=== PATIENT | male | born 1950 | race African-American/Black ===

== ENCOUNTER 2020-04-28 13:50 | Outpatient (CLI) | payer MEDICARE, MEDICAID, SELFPAY ==
--- NOTE | 2020-05-01 17:21 | WPDPFTINT ---
PFT Interpretation PFT Interpretation: DOS:04/28/2020 REQUESTING: Lorene Carroll MD REASON FOR TESTING: COPD PULMONARY FUNCTION TESTS Results are reproducible. Spirometry: FEV1 is 45%, 1.25 L, severely decreased. FVC 82%, normal. FEV1% is severely decreased. FJT08-12% is 13%. There is no response to bronchodilator. Lung volumes: TLC 114% normal. Increased RV 147% consistent with moderate air trapping. Increased airway resistance 291%. Diffusion: DLCO severely decreased 37% predicted. Flow volume loop: Severe scooping of the expiratory limb IMPRESSION: Severe obstructive ventilatory impairment, moderate air trapping, severe diffusion impairment. No response to bronchodilator. This pattern is consistent with emphysema. Lack of response to bronchodilator should not preclude use if clinically indicated. Perri Mckay MD
== END 2020-04-28 13:51 | disposition home or self-care (01) ==
PROVIDERS: PCP Family Medicine; Visit Provider Internal Medicine Critical Care Medicine
DX: J44.9 Chronic obstructive pulmonary disease, unspecified (principal); J43.9 Emphysema, unspecified
CPT/HCPCS: 94060; 94726; 94729

== ENCOUNTER 2020-05-05 06:26 | Emergency (ER) | payer MEDICARE, MEDICAID, SELFPAY ==
--- NOTE | ~2020-05-05 | US_ITS ---
EXAMINATION: US wrist asp inj w image RT DATE: 05/05/2020 11:06 INDICATION: Right wrist joint effusion and pain. TECHNIQUE: The skin overlying the right radiocarpal joint was prepped and draped in usual sterile fas hion. Anesthetic was administered with 1% lidocaine subcutaneously. An 18 gauge core biopsy needle was then used to aspirate fluid from the right radiocarpal joint under continuous sonographic guidanc e. The entry site was cleaned and dressed. There were no immediate complications. FINDINGS: Ultrasound images demonstrate the needle in the right radiocarpal joint. IMPRESSION: 1. Ultrasound-guided needle aspiration of 1 mL yellow fluid from the right radiocarpal joint. Reviewed, dictated and finalized at location A. PRESS PROOFER IMPRESSION: 1. Ultrasound-guided needle aspiration of 1 mL yellow fluid from the right radi ocarpal joint.
--- NOTE | ~2020-05-05 | XR_ITS ---
XR wrist RT min 3V 05/05/2020 07:00 Indication: Right wrist pain after fall Procedure: 4 views right wrist Comparison: No prior studies for comparison. Findings: No acute fracture or traumatic malalignment. Osteopenia. No significant soft tissue abnorma lity. No foreign bodies. There is chondrocalcinosis. Impression: 1: No acute fracture. Reviewed, dictated and finalized at location A. THODONTIST/EDUCATOR Impression: 1: No acute fracture.
[2020-05-05 06:33] VITALS: BP 124/91; PULSE 110; RESP 20; TEMP 36.8; O2SAT 95
--- NOTE | 2020-05-05 06:37 | PC.NURSE ---
Pt arrives on home oxygen at 2L nasal cannula
--- NOTE | 2020-05-05 07:01 | ED.EXTPRO ---
HPI - Extremity Problem General Chief complaint: Extremity Problem,Nontraumatic Stated complaint: tendonitis right wrist/hand Time Seen by Provider: 05/05/20 07:01 Source: patient Mode of arrival: ambulatory Limitations: no limitations History of Present Illness HPI Narrative: Patient is a 69-year-old male with a history of COPD who presents for evaluation of right wrist pain. Patient reports right wrist pain over the past 24 hours, worsening in severity. Currently, dull, aching in nature, increased pain with movement. Patient reports swelling overlying the right wrist as well. He denies numbness, but does report decrease in good coil shaper strength simply due to pain with movement. Patient denies any fall or injury. Patient states he has a history of this probably 8 to 9 years ago and was diagnosed with tendinitis. Patient denies any trauma. He denies fever, chills, redness. Patient states he has history of ganglion surgery in his wrist in the past. No history of skin infections. No abrasions or rashes overlying the wrist. Related Data Home Medications Medication Instructions Recorded Confirmed albuterol sulfate 2.5 mg INHALATION Q6H 03/07/20 albuterol sulfate 90 mcg/actuation 2 puff INHALATION Q4H PRN gm 03/07/20 aerosol inhaler amlodipine 10 mg tablet 10 mg PO DAILY 03/07/20 doxazosin 8 mg tablet 8 mg PO DAILY 03/07/20 ergocalciferol (vitamin D2) 1,250 1,250 mcg PO WEEKLY 03/07/20 mcg (50,000 unit) capsule fluticasone fur. 100 mcg-umeclid 1 inhalation INHALATION DAILY 03/07/20 62.5 mcg-vilant 25 mcg inhalat.powder fluticasone propionate 50 1 spray NASAL DAILY 03/07/20 mcg/actuation nasal spray,suspension montelukast 10 mg tablet 10 mg PO DAILY 03/07/20 nebulizer and compressor #1 each 03/07/20 sildenafil 100 mg tablet 100 mg PO DAILY PRN 03/07/20 ipratropium bromide 0.02 % 2.5 ml INHALATION QID ml 03/12/20 solution for inhalation levocetirizine 5 mg tablet 5 mg PO DAILY 03/12/20 Allergies Allergy/AdvReac Type Severity Reaction Status Date / Time lisinopril Allergy Severe Swelling Verified 05/05/20 06:27 Penicillins Allergy Intermediate Hives / Verified 05/05/20 06:27 Red Face Sulfa (Sulfonamide Allergy Intermediate Hives / Verified 05/05/20 06:27 Antibiotics) Red Face Review of Systems Review of Systems: Narrative: CONSTITUTIONAL: Denies fever, chills, or sweats. EYES: Denies visual changes, redness, or discharge. ENT: Denies rhinorrhea, congestion, sore throat, or otalgia. CARDIOVASCULAR: Denies chest pain, palpitations, or edema. RESPIRATORY: Denies cough or dyspnea. GASTROINTESTINAL: Denies abdominal pain, nausea, vomiting, or diarrhea. GENITOURINARY: Denies dysuria or hematuria. SKIN: Reports swelling overlying the right wrist MUSCULOSKELETAL: Reports right wrist pain, denies elbow pain NEUROLOGIC: Denies headache, numbness, reports decreased strength due to pain in the right wrist PMFSH Past Medical History Medical History (Updated 05/05/20 @ 11:36 by Caridad Lauren MD) BPH (benign prostatic hyperplasia) Chronic kidney disease Chronic viral hepatitis C COPD (chronic obstructive pulmonary disease) Dependence on supplemental oxygen Elevated PSA H/O nicotine dependence HTN (hypertension) Family History Family History (Updated 03/12/20 @ 13:25 by Orin Heard CMA) Father Cancer Mother Asthma Sibling Diabetes mellitus Social History Social History Smoking packs per day: 1 Smoking cigarettes per day: 20.0 Years smoked: 40 Smoking pack-years: 40.00 Smoking status: Former smoker Alcohol intake: current Substance use: never Exam Narrative: Exam Narrative: GENERAL: Awake, alert, conversant HEAD: Normocephalic, atraumatic. EYES: PERRLA and EOMI. ENT: Nares clear, no rhinorrhea or epistaxis. Mucous membranes moist. NECK: Supple. CHEST: No respiratory distress,
[2020-05-05] MEDS: ONDANSETRON HCL ODT 4 MG TABLET PO (07:45)
[2020-05-05] MEDS: oxyCODONE/ACETAMINOPHEN (*CRX) 5-325 MG TABLET 1 TABLET PO (07:45)
[2020-05-05 08:06] LABS: Basophils Percent Auto 0.3 % (0.2-1.2); Eosinophils Absolute Auto 0.2 K/mm3 (0-0.3); Eosinophils Percent Auto 1.5 % (0-4.4); Hematocrit 43.4 % (42.0-52.0); Hemoglobin 14.3 g/dL (14.0-18.0); Immature Granulocyte Absolute 0.05 K/mm3 (0.00-0.031); Immature Granulocyte Percent A 0.4 % (0-0.5); Lymphocytes Absolute Auto 1.49 K/mm3 (0.9-3.2); Mean Corpuscular HGB Conc 32.9 g/dl (32-36); Mean Corpuscular Hemoglobin 28.6 pg (26-34); Mean Corpuscular Volume 86.8 fl (80-100); Mean Platelet Volume 9.2 fl (7.4-10.4); Monocytes Absolute Auto 1.1 K/mm3 (0.1-0.6); Monocytes Percent Auto 8.9 % (2.6-8.5); Neutrophils Absolute Auto 9.6 K/mm3 (1.3-6.7); Neutrophils Percent Auto 76.9 % (45.5-73.1); Platelet Count Result 222 k/mm3 (150-375); Red Cell Distribution Width 13.2 % (11.5-14.5); White Blood Count 12.5 K/mm3 (4.5-10.0)
[2020-05-05 08:19] LABS: Anion Gap 9 mmol/L (8-16); Blood Urea Nitrogen 15 mg/dL (9-20); CRP 3.2 mg/dL (<1.0); Calcium 9.6 mg/dL (8.4-10.2); Carbon Dioxide 27 mmol/L (22-30); Chloride 104 mmol/L (98-107); Estimated CRCL calculation 63 ml/min; Estimated Glomerular Filt Rate > 60; Glucose 101 mg/dL (75-110); Potassium 3.6 mmol/L (3.4-5.0); Sodium 140 mmol/L (137-145)
[2020-05-05 08:29] LABS: Erythrocyte Sedimentation Rate 18 mm/hr (0-20)
[2020-05-05 08:41] VITALS: BP 150/96; PULSE 99; RESP 15; O2SAT 97
[2020-05-05 10:50] LABS: Appearance Synovial Fluid Cloudy (Clear); Source Synovial Fluid Synovial fluid
[2020-05-05 10:51] LABS: Color Synovial Fluid Other (Colorless)
[2020-05-05 10:53] LABS: Crystals Synovial Fluid None Seen (None Seen)
[2020-05-05 10:55] LABS: Lymphocytes Synovial Fluid 12 %; Monocytes Synovial Fluid 2 %; Neutrophils Synovial Fluid 86 % (0-25)
[2020-05-05 10:57] VITALS: BP 155/93; PULSE 90; RESP 17; O2SAT 97
--- NOTE | 2020-05-05 10:57 | PC.NURSE ---
Pt to U/S via WC.
[2020-05-05] MEDS: CEPHALEXIN 500 MG CAPSULE PO (11:56)
[2020-05-05 12:02] VITALS: BP 149/88; PULSE 84; RESP 17; O2SAT 97
[2020-05-05] MEDS: oxyCODONE HCL (*CRX) 5 MG TAB IR PO (13:20)
[2020-05-05 13:34] VITALS: BP 152/84; PULSE 82; RESP 16; O2SAT 97
== END 2020-05-05 13:35 | disposition home or self-care (01) ==
PROVIDERS: Emergency Provider Emergency Medicine; PCP Family Medicine
DX: M06.4 Inflammatory polyarthropathy (principal); M25.531 Pain in right wrist; J44.9 Chronic obstructive pulmonary disease, unspecified; N40.0 Benign prostatic hyperplasia without lower urinary tract symptoms; I12.9 Hypertensive chronic kidney disease with stage 1 through stage 4 chronic kidney disease, or unspecified chronic kidney disease; N18.9 Chronic kidney disease, unspecified; B18.2 Chronic viral hepatitis C; Z99.81 Dependence on supplemental oxygen; Z87.891 Personal history of nicotine dependence
CPT/HCPCS: 20600; 20606; 36415; 73110; 80048; 85025; 85652; 86140; 87070; 87075; 87205; 88108; 88304; 89051; 89060; 96365; 99284; A9270; J3370

== ENCOUNTER 2020-05-20 07:54 | Outpatient (CLI) | payer MEDICARE, MEDICAID, SELFPAY ==
--- NOTE | 2020-07-02 17:07 | WPDHOMESLEEP ---
Sleep Study - Home Unattended Date of Study: 05/20/20 Ordering Provider: Lorene Carroll ND Interpreting Physician: Perri Mckay MD Home Sleep Study Type: Apnea Link Air Height: 1.73 m Weight: 96.615 kg Body Mass Index: 32.3 Neck Circumference (inches): 17 [place]: 2 Reason for Sleep Study Waking during the night, need for naps in the day Sleep History Lee Cotto is a 69 year-old man who has COPD and uses oxygen at 2 L/minute. he has a prior history of smoking and exposure to environmental substances when he was in the . He wakes up throughout the night. He rarely snores, never is at loud enough that others complain about it. He rarely awakens at night with heartburn, belching or coughing. Does not awaken from sleep feeling short of breath. He rarely has trouble sleep with a cold. Does not wake up gasping for breath at night. He rarely has breathing problems at night observed by others. Rarely sweats excessively at night. Does not notice his heart pounding or beating irregularly at night. He rarely falls asleep during the day. He never falls asleep involuntarily and he never falls asleep while driving a car. Does not fall asleep while exerting physical. He does not have loss of muscle tone with strong emotion. He denies having daytime difficulties due to excessive sleepiness, now retired. He does not feel paralyzed on waking or falling asleep. He rarely has vivid dreamlike scenes upon awakening or falling asleep. He is not afraid to go to sleep. Does not have nightmares. He occasionally remembers his dreams. He rarely has racing thoughts. He does not feel sad or depressed. He denies having anxiety. He does not have muscular tension, does not notice parts his body jerking. Does not kick at night and does not have crawling or aching feelings in his legs. He denies any leg pain at night. He does not have morning jaw pain. He does not grind his teeth during sleep. He rarely is bothered by pain during the day. He has never awakened by pain during the night. He rarely wakes up feeling stiff in the morning. He does not wake up with sore achy muscles. He rarely has pain in the neck and spine on waking. He routinely wakes up feeling refreshed. He has curran a 9 lb weight gain in the last year. Normal bedtime is 10:00 p.m., falling asleep within 10-30 minutes. He normally wakes twice at night to urinate. He is able to return to sleep within 10 minutes. He wakes for the day at 4:30 a.m.. He estimates 6 hours of sleep at night. On the weekends, he may retire later, 12:00 midnight, still wakes at 4:30 a.m. He does take naps in the afternoon or evening. A short 10-15 minute nap may be refreshing. Habits: Tobacco quit 3 years ago. No caffeine, alcohol or recreational drugs. [facility] Past Medical History Medical History (Updated 07/02/20 @ 18:59 by Perri Mckay MD) Asbestos exposure BPH (benign prostatic hyperplasia) Chronic kidney disease Chronic viral hepatitis C COPD (chronic obstructive pulmonary disease) Dependence on supplemental oxygen Elevated PSA Environmental allergies H/O nicotine dependence HTN (hypertension) Wears glasses Surgical History Surgical History (Updated 07/02/20 @ 18:57 by Perri Mckay MD) History of ankle surgery 2016 History of back surgery Family History Family History Father Cancer Mother Asthma Sibling Diabetes mellitus Other Cerebrovascular accident Hypertension Lung disease Social History Social History (Updated 06/27/20 @ 08:40 by Mimi Limon, RT(R)) Smoking packs per day: 1 Smoking cigarettes per day: 20.0 Years smoked: 50 Smoking pack-years: 50.00 Smoking status: Former smoker Smoking end date: 06/13/17 Alcohol intake: current Alcohol use details: 3 per month Substance use: never Substance use type: does not use Gender identity (if verbalized b
[2020-07-02 19:19] VITALS: BMI 32.3
== END 2020-05-20 07:55 | disposition home or self-care (01) ==
LOC: ANHCSM 07:54
PROVIDERS: PCP Family Medicine; Visit Provider Internal Medicine Critical Care Medicine
DX: G47.30 Sleep apnea, unspecified (principal); G47.34 Idiopathic sleep related nonobstructive alveolar hypoventilation; J44.9 Chronic obstructive pulmonary disease, unspecified
CPT/HCPCS: 95806

== ENCOUNTER 2020-07-16 07:58 | Outpatient (CLI) | payer MEDICARE, MEDICAID, SELFPAY ==
--- NOTE | ~2020-07-16 | XR_ITS ---
XR chest 2V DATE: 07/16/2020 08:14 INDICATION: COPD. Chronic shortness of breath. TECHNIQUE: PA and lateral views COMPARISON: July 26, 2018 PA and lateral chest FINDINGS: Normal heart size. Is aortic calcification and tortuosity. No hilar or mediastinal enlargem ent is evident. There is bilateral hyperinflation consistent with history of COPD. There is chronic discoid scarring at the lung bases. No active infiltrate or consolidation, pleural e ffusion or pulmonary vascular congestion or pneumothorax is evident. Diffuse osteopenia. IMPRESSION: COPD Chronic bilateral basilar discoid scarring Aortic atherosclerosis Diffuse osteopenia Reviewed, dictated and finalized at location A. M INSPECTOR
== END 2020-07-16 07:59 | disposition home or self-care (01) ==
PROVIDERS: PCP Family Medicine; Visit Provider Internal Medicine Critical Care Medicine
DX: J44.9 Chronic obstructive pulmonary disease, unspecified (principal); Z87.09 Personal history of other diseases of the respiratory system; I70.0 Atherosclerosis of aorta; M85.80 Other specified disorders of bone density and structure, unspecified site
CPT/HCPCS: 71046

== ENCOUNTER 2020-07-17 10:41 | Outpatient (CLI) | payer MEDICARE, MEDICAID, SELFPAY ==
--- NOTE | 2020-07-17 11:00 | NEURO_ITS ---
Impression: # Complains of right hand pain and numbness. # Right moderate Carpal Tunnel Syndrome. # No ulnar neuropathy. # Abnormal needle/EMG exam with active denervation in APB. Nerve Conduction Studies Anti Sensory Summary Table Stim Site NR Peak (ms) P-T Amp (?V) Site1 Site2 Delta-P (ms) Dist (cm) Sudhakar (m/s) Right Median Anti Sensory (2-3nd Digit) Wrist 4.1 31.7 Wrist 2-3nd Digit 4.1 14.0 34 Wrist 4.8 13.4 Wrist 2-3nd Digit 4.1 14.0 34 Right Radial Anti Sensory (Base 1st Digit) Wrist 2.7 7.2 Wrist Base 1st Digit 2.7 0.0 Right Ulnar Anti Sensory (5th Digit) Wrist 3.0 14.2 Wrist 5th Digit 3.0 14.0 47 Motor Summary Table Stim Site NR Onset (ms) O-P Amp (mV) Site1 Site2 Delta-0 (ms) Dist (cm) Sudhakar (m/s) Right Median Motor (Abd Poll Brev) Wrist 5.1 1.6 Elbow Wrist 5.3 28.0 53 Elbow 10.4 1.4 Right Ulnar Motor (Abd Dig Minimi) Wrist 3.1 5.1 A Elbow Wrist 5.1 28.0 55 A Elbow 8.2 3.7 F Wave Studies NR F-Lat (ms) L-R F-Lat (ms) Right Median (Mrkrs) (Abd Poll Brev) 29.84 Right Ulnar (Mrkrs) (Abd Dig Min) 31.25 EMG Side Muscle Nerve Root Ins Act Fibs Amp Dur Recrt Comment Right 1stDorInt Ulnar C8-T1 Nml Nml Nml Nml Nml Right Ext Indicis Radial (Post Int) C7-8 Nml Nml Nml Nml Nml Right Ext Digitorum Radial (Post Int) C7-8 Nml Nml Nml Nml Nml Right BrachioRad Radial C5-6 Nml Nml Nml Nml Nml Right PronatorTeres Median C6-7 Nml Nml Nml Nml Nml Right Abd Poll Brev Median C8-T1 Nml 3+ Incr >12ms Reduced MTDD
== END 2020-07-17 10:42 | disposition home or self-care (01) ==
PROVIDERS: PCP Family Medicine; Visit Provider Orthopaedic Surgery
DX: G56.01 Carpal tunnel syndrome, right upper limb (principal)
CPT/HCPCS: 95886; 95909

== ENCOUNTER → 2020-08-05 03:20 | Outpatient (CLI) | payer MEDICARE, MEDICAID, SELFPAY ==
[2020-08-05 20:35] LABS: SARS-CoV-2 RNA PCR Negative
== END ==
PROVIDERS: PCP Family Medicine; Visit Provider Internal Medicine Critical Care Medicine
DX: Z01.812 Encounter for preprocedural laboratory examination (principal); Z20.822 Contact with and (suspected) exposure to COVID-19
CPT/HCPCS: C9803; U0003; U0005

== ENCOUNTER 2020-08-05 08:54 | Outpatient (CLI) | payer MEDICARE, MEDICAID, SELFPAY ==
--- NOTE | 2020-08-05 09:00 | ECG_ITS ---
Measurements Intervals [place] Rate: 92 P: 57 [place]: 166 QRS: 23 QRSD: 80 T: 50 QT: 345 QTc: 428 Interpretive Statements SINUS RHYTHM VENTRICULAR PREMATURE COMPLEX DELAYED PRECORDIAL R/S TRANSITION MINIMAL Q WAVES- INFERIOR LEADS BASELINE ARTIFACT- I, II, III, AVR, AVL, AVF, V4 BORDERLINE ECG Electronically Signed On 08-05-2020 10:14:20 [employer] SUPERVISOR by Cliff Courtney D.O.
[2020-08-05 10:03] LABS: Anion Gap 6 mmol/L (8-16); Blood Urea Nitrogen 15 mg/dL (9-20); Calcium 9.3 mg/dL (8.4-10.2); Carbon Dioxide 29 mmol/L (22-30); Chloride 107 mmol/L (98-107); Estimated Glomerular Filt Rate > 60; Glucose 87 mg/dL (75-110); Sodium 142 mmol/L (137-145)
[2020-08-05 10:05] LABS: INR 0.9; Prothrombin Time 13.1 Seconds (11.1-14.7)
== END 2020-08-05 08:55 | disposition home or self-care (01) ==
PROVIDERS: Anesthesiology; PCP Family Medicine; Visit Provider Orthopaedic Surgery
DX: I12.9 Hypertensive chronic kidney disease with stage 1 through stage 4 chronic kidney disease, or unspecified chronic kidney disease (principal); N18.9 Chronic kidney disease, unspecified; Z01.818 Encounter for other preprocedural examination
CPT/HCPCS: 36415; 80048; 85610; 85730; 93005

== ENCOUNTER 2020-08-07 09:10 | Outpatient (CLI) | payer MEDICARE, MEDICAID, SELFPAY ==
--- NOTE | 2020-08-20 12:57 | WPDSLEEPSTUD ---
Sleep Study Date of Study: 08/07/20 Ordering Provider: Lorene Carroll MD Interpreting Physician: Perri Mckay MD Sleep Study Type: Polysomnogram Height: 1.73 m Weight: 98.8 kg Body Mass Index: 33.0 Neck Circumference (inches): 18 [place]: 5 Reason for Sleep Study 05/20/2020 Home sleep test with hypoxemia, lowest saturation 84% and 7% of the study below 88% He presents for a split night study to diagnose and treat JIMMY Sleep History Lee Cotto is a 69 year-old man who has COPD and uses oxygen at 2 L/minute. He has a prior history of smoking and exposure to environmental substances when he was in the . He wakes up throughout the night. He rarely snores, never is at loud enough that others complain about it. He rarely awakens at night with heartburn, belching or coughing. Does not awaken from sleep feeling short of breath. He rarely has trouble sleep with a cold. Does not wake up gasping for breath at night. He rarely has breathing problems at night observed by others. Rarely sweats excessively at night. Does not notice his heart pounding or beating irregularly at night. He rarely falls asleep during the day. He never falls asleep involuntarily and he never falls asleep while driving a car. Does not fall asleep while exerting physical. He does not have loss of muscle tone with strong emotion. He denies having daytime difficulties due to excessive sleepiness, now retired. He does not feel paralyzed on waking or falling asleep. He rarely has vivid dreamlike scenes upon awakening or falling asleep. He is not afraid to go to sleep. Does not have nightmares. He occasionally remembers his dreams. He rarely has racing thoughts. He does not feel sad or depressed. He denies having anxiety. He does not have muscular tension, does not notice parts his body jerking. Does not kick at night and does not have crawling or aching feelings in his legs. He denies any leg pain at night. He does not have morning jaw pain. He does not grind his teeth during sleep. He rarely is bothered by pain during the day. He has never awakened by pain during the night. He rarely wakes up feeling stiff in the morning. He does not wake up with sore achy muscles. He rarely has pain in the neck and spine on waking. He routinely wakes up feeling refreshed. He has curran a 9 lb weight gain in the last year. Normal bedtime is 10:00 p.m., falling asleep within 10-30 minutes. He normally wakes twice at night to urinate. He is able to return to sleep within 10 minutes. He wakes for the day at 4:30 a.m.. He estimates 6 hours of sleep at night. On the weekends, he may retire later, 12:00 midnight, still wakes at 4:30 a.m. He does take naps in the afternoon or evening. A short 10-15 minute nap may be refreshing. Habits: Tobacco quit 3 years ago. No caffeine, alcohol or recreational drugs. [facility] Past Medical History Medical History (Updated 08/20/20 @ 14:46 by Perri Mckay MD) Asbestos exposure BPH (benign prostatic hyperplasia) Chronic kidney disease Chronic viral hepatitis C COPD (chronic obstructive pulmonary disease) Dependence on supplemental oxygen Elevated PSA Environmental allergies H/O nicotine dependence HTN (hypertension) Nocturnal hypoxemia Obesity Sleep apnea Wears glasses Surgical History Surgical History History of ankle surgery 2016 History of back surgery Family History Family History Father Cancer Mother Asthma Sibling Diabetes mellitus Other Cerebrovascular accident Hypertension Lung disease Social History Social History Smoking packs per day: 0.75 Smoking cigarettes per day: 15.0 Years smoked: 50 Smoking pack-years: 37.50 Smoking status: Former smoker Tobacco type: cigarettes Smoking end date: 12/11/17
[2020-08-20 18:32] VITALS: BMI 33.0
== END 2020-08-07 09:11 | disposition home or self-care (01) ==
LOC: ANHCSM 09:10
PROVIDERS: PCP Family Medicine; Visit Provider Internal Medicine Critical Care Medicine
DX: G47.30 Sleep apnea, unspecified (principal); G47.34 Idiopathic sleep related nonobstructive alveolar hypoventilation
CPT/HCPCS: 95810; 95811

== ENCOUNTER → 2020-08-09 01:39 | Outpatient (CLI) | payer MEDICARE, MEDICAID, SELFPAY ==
[2020-08-09 19:42] LABS: SARS-CoV-2 RNA PCR Negative
== END ==
PROVIDERS: PCP Family Medicine; Visit Provider Orthopaedic Surgery
DX: Z01.812 Encounter for preprocedural laboratory examination (principal); Z20.822 Contact with and (suspected) exposure to COVID-19
CPT/HCPCS: C9803; U0003; U0005

== ENCOUNTER 2020-08-12 02:30 | Day surgery (SDC) | payer MEDICARE, MEDICAID, SELFPAY ==
[2020-08-04 13:21] VITALS: BMI 32.8
[2020-08-12] VITALS (8 sets, daily range): BP systolic 101–134; BP diastolic 67–91; PULSE 75–92; RESP 16–20; TEMP 36.2–37; O2SAT 96–98
--- NOTE | 2020-08-12 07:52 | WPDANESEPPF ---
Anes - Initial Pre Proc Eval Procedure: Operation Date: 08/12/20 12:00 Proposed Procedures p Right Carpal Tunnel Release - Saeid Hikcs MD Date/Time: 08/12/20 07:52 Surgeon: Saeid Hicks MD Pre Op Diagnosis: Right Carpal Tunnel Syndrome Patient Data Age: 69 Gender: M Height: 1.73 m Weight: 98 kg Allergies Allergy/AdvReac Type Severity Reaction Status Date / Time lisinopril Allergy Severe Swelling Verified 08/12/20 10:08 Penicillins Allergy Intermediate Hives / Verified 08/12/20 10:08 Red Face Sulfa (Sulfonamide Allergy Intermediate Hives / Verified 08/12/20 10:08 Antibiotics) Red Face Home Medications Medication Instructions Recorded Confirmed Type albuterol sulfate 2.5 mg INHALATION BID 03/07/20 08/12/20 History albuterol sulfate 90 mcg/actuation 2 puff INHALATION Q4H PRN gm 03/07/20 08/12/20 History aerosol inhaler amlodipine 10 mg tablet 10 mg PO QAM 03/07/20 08/12/20 History doxazosin 8 mg tablet 8 mg PO HS 03/07/20 08/12/20 History ergocalciferol (vitamin D2) 1,250 1,250 mcg PO WEEKLY 03/07/20 08/12/20 History mcg (50,000 unit) capsule fluticasone propionate 50 1 spray NASAL DAILY PRN 03/07/20 08/12/20 History mcg/actuation nasal spray,suspension montelukast 10 mg tablet 10 mg PO QAM 03/07/20 08/12/20 History nebulizer and compressor #1 each 03/07/20 07/21/20 History sildenafil 100 mg tablet 100 mg PO DAILY PRN 03/07/20 08/04/20 History ipratropium bromide 0.02 % 2.5 ml INHALATION BID ml 03/12/20 08/12/20 History solution for inhalation levocetirizine 5 mg tablet 5 mg PO HS 03/12/20 08/12/20 History aspirin [Adult Aspirin] 81 mg PO DAILY 08/04/20 08/12/20 History [id number] 1 inh INHALATION QAM 08/04/20 08/12/20 History [Trelegy Ellipta] Patient hx anesthesia problems: none Family hx anesthesia problems: none [facility] Past Medical History Medical History (Updated 08/12/20 @ 07:53 by Jose Howell MD) Asbestos exposure BPH (benign prostatic hyperplasia) Chronic kidney disease Chronic viral hepatitis C COPD (chronic obstructive pulmonary disease) Dependence on supplemental oxygen Elevated PSA Environmental allergies H/O nicotine dependence HTN (hypertension) Nocturnal hypoxemia Obesity Sleep apnea Wears glasses Surgical History Surgical History History of ankle surgery 2016 History of back surgery Family History Family History Father Cancer Mother Asthma Sibling Diabetes mellitus Other Cerebrovascular accident Hypertension Lung disease Social History Social History Smoking packs per day: 0.75 Smoking cigarettes per day: 15.0 Years smoked: 50 Smoking pack-years: 37.50 Smoking status: Former smoker Tobacco type: cigarettes Smoking end date: 12/11/17 Alcohol intake: former Alcohol use details: SCIAL DRINKER IN PAST Substance use: never Substance use type: does not use Living arrangements: alone Gender identity (if verbalized by the patient): Male Spiritual care concerns: No Anes - Eval Final PreProcedure Day of Procedure 08/12/20 07:52 Patient weight: obese Heart: regular rate and rhythm Lungs: clear to auscultation and normal air movement Airway: Mallampati scale class II Neurological: alert and oriented Last oral intake: >/= 8 hours ASA classification: III Emergent: no Anesthetic plan: proceed Anesthesia type and monitoring: general GIVS and LMA Informed Consent: The patient's anesthetic plan and its attendant risks and benefits were discussed with the patient/family/POA. Questions were solicited and answers provided to the satisfaction of the patient/family/POA.
[2020-08-12] MEDS: ACETAMINOPHEN 500 MG TABLET 1000 MG PO (10:17)
[2020-08-12] MEDS: CELECOXIB 200 MG CAPSULE PO (10:18)
[2020-08-12] MEDS: LACTATED RINGERS 1,000 ML 30 ML IV CONT (10:33)
--- NOTE | 2020-08-12 11:41 | WPDHPUPDATE1 ---
History and Physical Update Update Date/Time: 08/12/20 11:41 History and Physical has been reviewed, including an updated exam of the patient. There are NO changes in the patient's condition. Risks, benefits, and alternatives have been discussed and questions answered. Patient agrees to proceed with procedure.
[2020-08-12] MEDS: CLINDAMYCIN 900 MG/D5W 50 ML 900 MG/50 ML PIGGYBACK 50 MG IVPB (12:01)
[2020-08-12] MEDS: BUPIVACAINE HCL 0.5% PF 30 ML VIAL INFILTRATE (12:36)
--- NOTE | 2020-08-12 12:51 | PM.PROC ---
Procedure Note - Detailed Date of procedure: 08/12/20 Pre-op diagnosis: Right Carpal Tunnel Syndrome Post-op diagnosis: same Procedure performed: R CTR Description of procedure: THE RIGHT UPPER EXTREMITY WAS PREPPED AND DRAPED IN THE STERILE FASHION. THE CARPAL TUNNEL WAS MARKED FROM THE FLEXED RING FINGER. THE TORNEQUET WAS INFLATED. THE INCISION WAS MADE AT THE MID PALM DOWN THROUGH THE SUBCUTANEOUS TISSUES. THE PALMAR FASCIA WAS IDENTIFIED. AN INCISION WAS MADE THROUGH THE PALMAR FASCIA UNTIL THE CARPAL TUNNEL WAS ENTERED. A MOSQUITO HEMOSTAT WAS USED TO PROTECT THE MEDIAN NERVE WHILE THE INCISION TO THE PALMAR FASCIA WAS COMPLETE PROXIMALLY AND DISTALLY TO THE CARDINAL LINE. NEXT, THE TRANSVERSE CARPAL LIGAMENT WAS IDENTIFIED. A FREIER ELEVATOR WAS USED TO SEPARATE THE NERVE FROM THE LIGAMENT. A METZENBAUM SCISSORS WAS THEN USED TO INCISE THE TRANSVERSE CARPAL LIGAMENT UNTIL THERE WAS A COMPLETE RELEASE OF THE CARPAL TUNNEL. THE MEDIAN NERVE WAS INTACT. THE TOURNEQUET WAS DEFLATED. THE BLEEDERS WERE CAUTERIZED. THE WOUND WAS WASHED. THE SKIN WAS APPROXIMATED WITH 4-0 NYLON SUTURE. STERILE DRESSING WAS APPLIED. PATIENT WAS EXTUBATED AND SENT TO THE RECOVERY ROOM. Anesthesia: GLMA Surgeon: Saeid Hicks MD Estimated blood loss (mL): 5 Complications: No immediate complications Condition: stable Disposition: PACU
[2020-08-12] MEDS: oxyCODONE HCL (*CRX) 5 MG TAB IR PO (14:26)
== END 2020-08-12 14:30 | disposition home or self-care (01) ==
PROVIDERS: PCP Family Medicine; Visit Provider Orthopaedic Surgery
PROC: (CPT 64721; principal; 2020-08-12 12:00)
DX: G56.01 Carpal tunnel syndrome, right upper limb (principal); J44.9 Chronic obstructive pulmonary disease, unspecified; N40.0 Benign prostatic hyperplasia without lower urinary tract symptoms; I12.9 Hypertensive chronic kidney disease with stage 1 through stage 4 chronic kidney disease, or unspecified chronic kidney disease; N18.9 Chronic kidney disease, unspecified; B18.2 Chronic viral hepatitis C; G47.30 Sleep apnea, unspecified; Z79.82 Long term (current) use of aspirin; Z87.891 Personal history of nicotine dependence; E66.9 Obesity, unspecified; Z68.33 Body mass index [BMI] 33.0-33.9, adult
CPT/HCPCS: 64721; 36415; 80048; 85610; 85730; 93005; A9270; C9803; J1100; J2250; J2370; J2405; J2704; J3010; J7120; U0003; U0005

== ENCOUNTER 2021-01-21 10:33 | Outpatient (CLI) | payer MEDICARE, MEDICAID, SELFPAY ==
--- NOTE | ~2021-01-21 | NM_ITS ---
EXAMINATION: NM ezekiel stress w perfusion DATE: 01/21/2021 14:00 INDICATION: Abnormal electrocardiogram. Chronic obstructive pulmonary disease. TECHNIQUE: Rest images were obtained following intravenous administration of 9.2 mCi Tc99m tetrofosmi n (Myoview). The patient was infused intravenously with Lexiscan (regadenoson). Then, 27.3 mCi Tc99m tetrofosmin (Myoview) was administered intravenously, and stress images were obtained. Data was recon structed into short axis and horizontal and vertical long axis SPECT images. Gated SPECT images were also obtained. COMPARISON: None. FINDINGS: There is a small, mild, fixed perfusion defect involving apical to mid inferior wall of lef t ventricle, consistent with infarct. No reversible component to suggest ischemia. There is no segme ntal wall motion abnormality. Left ventricular ejection fraction measures 60%. IMPRESSION: 1. Small area of mild infarct involving apical to mid inferior wall of left ventricle. 2. Normal left ventricular ejection fraction measuring 60%. Reviewed, dictated and finalized at location A. IMPRESSION: 1. Small area of mild infarct involving apical to mid inferior wall of left chandrika tricle. 2. Normal left ventricular ejection fraction measuring 60%.
--- NOTE | 2021-01-21 12:16 | EST_ITS ---
Patient Info Name: Lee Cotto Age: 70 years : 1950 Gender: Male Wt: 210 lbs HR: 89 bpm BP: 147 / 89 mmHg Heart Rhythm: Sinus Rhythm Exam Date: 01/21/2021 12:27 PM Exam Location: [facility] Stress Patient Status: Outpatient Admit Date: 01/21/2021 Staff Ordering Physician: Perri Mckay MD Attending Provider: Perri Mckay MD Exercise Technologist: Amie Harris CT Exercise Physician: Cliff Courtney DO Exam Type: CA stress ezekiel w NM Study Info A regadenoson stress test was performed. Summary 1. 1. Negative lexiscan stress test for ischemic ST changes by ECG criteria. 2. 2. Baseline hypertension. 3. 3. Nuclear scan to follow and will be reported separately. Please correlate with it. 4. 4. Patient informed of the above results. Protocol: Lexiscan Stress ECG Details Stage: REST Duration (min): 1 min : 10 sec HR (bpm): 86 SBP (mmHg): 147 DBP (mmHg): 89 Stage: REST Duration (min): 6 min : 25 sec HR (bpm): 87 SBP (mmHg): 147 DBP (mmHg): 89 Stage: STAGE 1 Duration (min): 1 min : 0 sec HR (bpm): 103 SBP (mmHg): 156 DBP (mmHg): 78 Stage: RECOVERY Duration (min): 1 min : 0 sec HR (bpm): 101 SBP (mmHg): 156 DBP (mmHg): 78 Stage: RECOVERY Duration (min): 2 min : 0 sec HR (bpm): 98 SBP (mmHg): 156 DBP (mmHg): 78 Stage: RECOVERY Duration (min): 3 min : 0 sec HR (bpm): 99 SBP (mmHg): 131 DBP (mmHg): 74 Stage: RECOVERY Duration (min): 3 min : 11 sec HR (bpm): 98 SBP (mmHg): 131 DBP (mmHg): 74 Rest HR: 87 bpm Peak HR: 104 bpm Rest Sys BP: 147 mmHg Peak Sys BP: 156 mmHg Max Pred HR: 150 bpm % Max Pred HR: 69 % Target HR: 128 bpm Max RPP: 16,224 bpm*mmHg Termination Reason: Completed protocol Cardiac Symptoms: Shortness of breath Total Time: 1 min : 0 sec Rest Parker BP: 89 mmHg Peak Parker BP: 78 mmHg Total Dose: 0.4 mg Resting ECG Sinus rhythm. Stress ECG No ST changes. Arrhythmias None. Report Signatures
== END 2021-01-21 10:34 | disposition home or self-care (01) ==
PROVIDERS: PCP Family Medicine; Visit Provider Internal Medicine Critical Care Medicine
DX: J44.9 Chronic obstructive pulmonary disease, unspecified (principal); R06.02 Shortness of breath; I21.9 Acute myocardial infarction, unspecified
CPT/HCPCS: 78452; 93017; A9502; J2785

== ENCOUNTER 2021-01-22 13:20 | Outpatient (CLI) | payer MEDICARE, MEDICAID, SELFPAY ==
--- NOTE | 2021-01-26 20:06 | WPDPFTINT ---
PFT Procedure Performed PFT Procedure Performed Spirometry with Pre/Post Bronchodilator Plethysmography (Lung Vol) Diffusing Cap (DLCO) Flow Vol Loop PFT Interpretation DOS: 01/22/2021 REQUESTING: Dr Mckay REASON FOR TESTING: COPD PULMONARY FUNCTION TESTS Repeatability of spirometry FEV1 maneuver is Grade B Spirometry: FEV1 is severely reduced 47% predicted, 1.21 L. Forced vital capacity FVC is normal 89%. The FEV1/FVC is reduced 40% consistent with airflow obstruction. There is a 23% increase in FEV1 which is greater than 200 mils and 26% increase in FVC greater than 200 mL. This is statistically significant. Lung volumes: Total lung capacity 114% normal. Residual volume increased to 147% consistent with moderate air trapping. RV/TLC also increased 48% consistent with air trapping. Airway resistance is increased 295%. Diffusion: DLCO is 36%, severely reduced. DLCO/VA corrects partially 51%. Flow volume loop: Scooping of the expiratory limb consistent with obstruction IMPRESSION: Severe obstructive ventilatory impairment with excellent response to bronchodilator, moderate air trapping, and severe diffusion impairment. This is consistent with severe COPD with a robust response to bronchodilator. Perri Mckay MD
--- NOTE | 2021-01-27 16:58 | WPDSIXMINUTE ---
Six Minute Walk Procedure Procedure Performed Pulmonary Stress Test (6 min walk) Six Minute Walk This is a 6 minutes walk test. The test was performed and interpreted in accordance with the 2014 ERS/ATS task force guidelines. Of note the patient used 3 L nasal cannula and a wheeled walker during this test. Findings: The patient's resting oxygen saturation on 3 L NC measured by pulse oximetry was 93% and her heart rate was 94 bpm. Patient ambulated for 168 meters and oxygen saturation remained 91 to 93%. Heart rate at the end of the study was 105 bpm. There are no prior studies for comparison.
== END 2021-01-22 13:21 | disposition home or self-care (01) ==
LOC: ANHPFT 13:22
PROVIDERS: PCP Family Medicine; Visit Provider Internal Medicine Critical Care Medicine
DX: J44.9 Chronic obstructive pulmonary disease, unspecified (principal)
CPT/HCPCS: 94060; 94618; 94726; 94729

== ENCOUNTER 2021-02-10 13:30 | Outpatient (RCR) | payer MEDICARE, MEDICAID, SELFPAY ==
[2021-01-27 15:35] VITALS: PULSE 97
--- NOTE | 2021-02-17 14:53 | PCCPR ---
Absent due to illness Lee called today states his back an hip are hurting. He is trying to get an PCP apt.
--- NOTE | 2021-02-24 13:51 | PCCPR ---
Ezra Ward will be out until atleast the 10 of March. He has a pinched nerve and states he is on some pretty strong pain medication. He is unable to drive and rests most of the day. Will keep us up to date on his plan to return but hopes to come back Tuesday.
--- NOTE | 2021-05-12 10:58 | PCCPR ---
Discharge Spoke with Lee today he is going to PT per [facility] for severe sciatic pain. Explained we could look at getting another referral from [facility] if he would like after his PT series. [facility]'s only visit was with his new pt orientation 01/27/21. Explained we would let him know.
== END 2021-05-12 11:01 | disposition home or self-care (01) ==
LOC: ANHCPREHAB 13:30
PROVIDERS: PCP Family Medicine; Visit Provider Internal Medicine Critical Care Medicine
DX: J44.9 Chronic obstructive pulmonary disease, unspecified (principal)
CPT/HCPCS: 97150; G0424

== ENCOUNTER 2021-06-16 08:50 | Outpatient (CLI) | payer MEDICARE, MEDICAID, SELFPAY ==
--- NOTE | ~2021-06-16 | US_ITS ---
EXAMINATION: US renal BI DATE: 06/16/2021 10:02 INDICATION: Stage II chronic kidney disease TECHNIQUE: Multiple ultrasound grayscale images of the kidneys were obtained. COMPARISON: MRI dated 11/15/2016 FINDINGS: The right kidney measures 15.9 x 7.9 x 8.3 cm. The left kidney measures 16.0 x 7.0 x 7.0 cm. Numerous anechoic cysts scattered throughout both kidneys. The largest on the right are a simple appearing 6. 1 cm cyst at the mid right kidney and the second a complex cyst with multiple thin internal septation s measuring up to 7.3 cm. There is a 1.3 x 1.2 cm echogenic region within the second complex cyst whi ch does raise concern for neoplasm. Alternatively this could represent normal renal parenchyma situat ed between separate cysts. The largest in the left kidney is an additional 6.[address] There is a second 6.0 cm complex cyst at the inferior left kidney which appears more hypoechoic w ith more echogenic dependently layering likely debris versus hematocrit level. There is diffuse incre ased renal cortical echogenicity consistent with medical renal disease. There is no hydronephrosis in either kidney. No stones identified. Prostate is incompletely visualized but appears enlarged impre ssing upon the base of the otherwise normal-appearing bladder. IMPRESSION: 1. Multiple bilateral renal cysts including a more concerning 7.3 cm complex cystic lesion in the ri ght kidney which contains a 1.3 cm echogenic region which could represent a solid nodular component i n the setting of renal cell carcinoma. Alternatively this could represent normal renal parenchyma sit uated between independent renal cysts. Recommend follow-up pre and postcontrast CT or MRI for further evaluation. 2. Bilateral diffuse increased renal cortical echogenicity consistent with medical renal disease. 3. Prostate incompletely visualized but likely enlarged impressing upon the base of the normal bladde r. Reviewed, dictated and finalized at location B. OR BUSINESS PROCESS ANALYST IMPRESSION: 1. Multiple bilateral renal cysts including a more concerning 7.3 cm complex c ystic lesion in the right kidney which contains a 1.3 cm echogenic region which could represent a solid nodular component in the setting of renal cell carcino ma. Alternatively this could represent normal renal parenchyma situated between independent renal cysts. Recommend follow-up pre and postcontrast CT or MRI fo r further evaluation. 2. Bilateral diffuse increased renal cortical echogenicity consistent with medi jorge renal disease. 3. Prostate incompletely visualized but likely enlarged impressing upon the bas e of the normal bladder.
== END 2021-06-16 08:51 | disposition home or self-care (01) ==
LOC: ANHIMG 08:53
PROVIDERS: PCP Family Medicine; Visit Provider Internal Medicine Nephrology
DX: N18.2 Chronic kidney disease, stage 2 (mild) (principal); N28.1 Cyst of kidney, acquired
CPT/HCPCS: 76775

== ENCOUNTER 2021-07-20 09:53 | Outpatient (CLI) | payer MEDICARE, MEDICAID, SELFPAY ==
--- NOTE | ~2021-07-20 | CT_ITS ---
EXAMINATION:CT lung screening DATE: 07/20/2021 10:09 INDICATION: Personal history of nicotine dependence. Smoker who quit 4 years ago with 50 pack year hi story. TECHNIQUE: Computed tomography (CT) of the chest was performed without intravenous contrast. Automate d exposure control and iterative reconstruction technique were employed. The dose-length product (DLP ) was 158.10 mGy-cm. COMPARISON: CT abdomen and pelvis 10/19/2016, MRCP 11/15/2016 FINDINGS: There is severe emphysema. There is discoid atelectasis in the inferior lungs. There is mil d scarring at the lung apices. There is a 2 mm nodule in right upper lobe. No pleural effusion. The h eart size is normal. There are coronary artery calcifications. No pericardial effusion. Partially vis ualized are numerous cysts in the kidneys. There is ectasia of ascending aorta measuring 4.4 cm. Ther e is chronic mild intrahepatic biliary duct dilatation. There is mild thoracic spondylosis. IMPRESSION: 1. Lung-RADS category 2: Benign appearance or behavior. Continue annual screening with noncontrast lo w-dose chest CT in 12 months. Reviewed, dictated and finalized at location E. OW OFFICER IMPRESSION: 1. Lung-RADS category 2: Benign appearance or behavior. Continue annual screeni ng with noncontrast low-dose chest CT in 12 months.
== END 2021-07-20 09:54 | disposition home or self-care (01) ==
LOC: ANHIMG 09:55
PROVIDERS: PCP Family Medicine; Visit Provider Nurse Practitioner Family
DX: Z87.891 Personal history of nicotine dependence (principal)
CPT/HCPCS: 71271

== ENCOUNTER 2021-11-04 10:50 | Outpatient (CLI) | payer MEDICARE, MEDICAID, SELFPAY ==
--- NOTE | ~2021-11-04 | CT_ITS ---
EXAMINATION: CT abdomen pelvis wo con DATE: 11/04/2021 11:21 INDICATION: Chronic kidney disease stage II TECHNIQUE: Computed tomography (CT) of the abdomen and pelvis was performed without intravenous contr ast. The dose-length product was 1070.02 mGy-cm. Automated exposure control and iterative reconstruct ion technique were employed. COMPARISON: CT dated 10/19/2016. FINDINGS: Right middle lobe and left lower lobe airspace disease may represent atelectasis or pneumon ia. Heart size normal. No significant pleural or pericardial effusion. There are innumerable bilatera l renal cysts, some of which contain peripheral calcifications, likely benign. There are nonobstructi ng bilateral renal stones. Subtle lesions of the liver seen on prior examination are not appreciated without contrast. The spleen, adrenal glands are unremarkable. There are pancreatic calcifications, c onsistent with chronic pancreatitis. There is intrahepatic and extrahepatic biliary dilatation. There is an umbilical hernia containing nonobstructed small bowel. Nonobstructive bowel gas pattern. Gallb ladder is contracted. No significant vascular abnormality. No lymphadenopathy. Small hiatal hernia. S evere osteoarthritis of the hips. IMPRESSION: 1. Innumerable bilateral renal cysts, some of which contain peripheral calcifications, likely benign polycystic kidney disease. 2: Nonobstructing bilateral nephrolithiasis. 3: Small umbilical hernia containing nonobstructed small bowel. 4: Dilated intra and extrahepatic bile ducts. No obstructing stone or definite mass identified. Cons ider correlation with MRCP examination. 5: Right middle and left lower lobe airspace disease which may represent atelectasis or pneumonia. Reviewed, dictated and finalized at location A. IMPRESSION: 1. Innumerable bilateral renal cysts, some of which contain peripheral calcific ations, likely benign polycystic kidney disease. 2: Nonobstructing bilateral nephrolithiasis. 3: Small umbilical hernia containing nonobstructed small bowel. 4: Dilated intra and extrahepatic bile ducts. No obstructing stone or definite mass identified. Consider correlation with MRCP examination. 5: Right middle and left lower lobe airspace disease which may represent atelec tasis or pneumonia.
== END 2021-11-04 10:51 | disposition home or self-care (01) ==
PROVIDERS: PCP Family Medicine; Visit Provider Internal Medicine Nephrology
DX: I12.9 Hypertensive chronic kidney disease with stage 1 through stage 4 chronic kidney disease, or unspecified chronic kidney disease (principal); N18.2 Chronic kidney disease, stage 2 (mild); N28.1 Cyst of kidney, acquired; K44.9 Diaphragmatic hernia without obstruction or gangrene; K42.9 Umbilical hernia without obstruction or gangrene; M16.0 Bilateral primary osteoarthritis of hip; N20.0 Calculus of kidney
CPT/HCPCS: 74176

== ENCOUNTER 2021-12-08 04:34 | Inpatient (IN) | payer MEDICARE, MEDICAID, SELFPAY ==
[2021-12-08] VITALS (51 sets, daily range): BP systolic 79–136; BP diastolic 44–75; PULSE 97–125; RESP 17–31; TEMP 36.5–37.7; O2SAT 87–96; BMI 33.7; BMI 33.4
--- NOTE | ~2021-12-08 | US_ITS ---
EXAMINATION: US venous doppler [facility] DATE: 12/08/2021 16:58 INDICATION: Bilateral lower limb pain and swelling TECHNIQUE: Puga scale images without and with compression and Doppler images of the bilateral lower e xtremity veins were obtained. COMPARISON: 06/02/2016 FINDINGS: The right common femoral vein, profunda femoral vein, femoral vein, popliteal vein, peroneal trunk, p osterior tibial veins, and greater saphenous vein are patent. The left common femoral vein, profunda femoral vein, femoral vein, popliteal vein, peroneal trunk, po sterior tibial veins, and greater saphenous vein are patent. IMPRESSION: 1. Patent bilateral lower extremity veins. No evidence of deep venous thrombosis. Reviewed, dictated and finalized at location A. IMPRESSION: 1. Patent bilateral lower extremity veins. No evidence of deep venous thrombosi s.
--- NOTE | ~2021-12-08 | CT_ITS ---
EXAMINATION: CTA chest PE protocol DATE: 12/10/2021 08:57 INDICATION: Shortness of breath, left chest pain, positive d-dimer. TECHNIQUE: Computed tomography angiography (CTA) of the chest was performed with 100 mL Omnipaque-350 intravenous contrast timed to evaluate the pulmonary arteries. Coronal maximum intensity projection 3D-reconstructions were created by the technologist. Automated exposure control and iterative reconst ruction technique were employed. Exam dose: 615.60 mGy-cm total exam DLP. COMPARISON: 12/08/2021 CT pulmonary scan FINDINGS: There is suboptimal contrast opacification of the pulmonary arteries and considerable strea k streak and motion artifact, limiting this examination. No definite pulmonary embolus is identified. There are severe emphysematous changes of the lungs. There is increased consolidation and patchy diffuse infiltrate in the left upper lobe 12/08/2021. Persistent posterior basilar left lower lobe atelectasis/consolidation with air bronchograms. Persistent right basilar atelectasis, middle and lower lobes. Heart size is within normal range. Trace pericardial effusion. No thoracic aortic aneurysm or dissect ion. Slight left pleural effusion. Mild hilar and mediastinal lymph node prominence, likely reactive. Dilatation of the intrahepatic and extrahepatic bile ducts. Small sliding hiatal hernia. Probable polycystic kidneys IMPRESSION: Limited examination; no obvious pulmonary embolus is identified Increased consolidation and infiltrate, left upper lobe Persistent bilateral basilar atelectasis Severe emphysema Polycystic kidneys Dilated bile ducts Reviewed, dictated and finalized at Location A. Reviewed, dictated and finalized at location B.
--- NOTE | ~2021-12-08 | CT_ITS ---
EXAMINATION: CTA chest PE protocol DATE: 12/08/2021 07:22 INDICATION: Elevated d-dimer. Pulmonary embolism. TECHNIQUE: Computed tomography (CT) pulmonary angiogram of the chest was performed with 100 mL Omnipa que-350 intravenous contrast. Additional 3D reconstructions utilizing coronal maximum intensity proje ction (MIP) were performed. Automated exposure control and iterative reconstruction technique were em ployed. The dose-length product was 669.47 mGy-cm. COMPARISON: 07/30/2021 FINDINGS: Suboptimal contrast opacification of the pulmonary arteries. There is mild streak artifact from dense contrast in the superior vena cava and right atrium. Mild scattered respiratory motion artifact. Tog ether this mildly decreases sensitivity and specificity in some of the smaller subsegmental pulmonary arteries. There are potential pulmonary arterial filling defects within the lateral basilar segmenta l pulmonary artery of the right lower lobe and within branches of the posterior lateral basilar segme ntal pulmonary arteries of the left lower lobe suspicious for pulmonary emboli. Very small left pleur al effusion. Consolidation with parenchymal enhancement at the posterior lung base on both the left a nd right. There is corresponding volume loss in both lower lobes and favor atelectasis over pneumonia or pulmonary infarct. More patchy regions of groundglass opacity and consolidation in the left upper lobe which are more suspicious for pneumonia. Moderate to severe upper lung predominant emphysema. L inear bands of discoid atelectasis/scarring in the right middle and lower lobes. Heart size is normal . Small pericardial effusion. Small amount of atherosclerotic coronary artery calcific location. Thor acic aorta is normal in caliber with no dissection. Mildly prominent but still normal-sized likely re active mediastinal lymphadenopathy. Chronic marked dilation of the common bile duct and left hepatic duct with more diffuse moderate intrahepatic biliary ductal dilation. Numerous bilateral renal cysts with a few scattered thin linear mural and septal calcifications consistent with polycystic kidney di sease. Mild thoracic dextrocurvature with mild spondylosis. IMPRESSION: 1. A few segmental and subsegmental pulmonary arteries in the bilateral lower lobes with suspicion fo r pulmonary emboli. Specificity is however limited by suboptimal contrast opacification along with so me streak and motion artifact. 2. Patchy groundglass opacities and consolidation in the left upper lobe suspicious for pneumonia. 3. Consolidation at the posterior basilar left and right lower lobes with associated volume loss and favor atelectasis over pneumonia or infarct. 4. Small left pleural effusion. 5. Very small pericardial effusion. 6. Mild likely reactive mediastinal lymphadenopathy. 7. Chronic lingular and extrahepatic biliary ductal dilation. 8. Multiple bilateral renal cysts suggestive of polycystic kidney disease. Reviewed, dictated and finalized at location A. IMPRESSION: 1. A few segmental and subsegmental pulmonary arteries in the bilateral lower l obes with suspicion for pulmonary emboli. Specificity is however limited by sub optimal contrast opacification along with some streak and motion artifact. 2. Patchy groundglass opacities and consolidation in the left upper lobe suspic ious for pneumonia. 3. Consolidation at the posterior basilar left and right lower lobes with assoc iated volume loss and favor atelectasis over pneumonia or infarct. 4. Small left pleural effusion. 5. Very small pericardial effusion. 6. Mild likely reactive mediastinal lymphadenopathy. 7. Chronic lingular and extrahepatic biliary ductal dilation. 8. Multiple bilateral renal cysts suggestive of polycystic kidney disease.
--- NOTE | ~2021-12-08 | XR_ITS ---
EXAMINATION: XR chest 2V DATE: 12/08/2021 06:06 INDICATION: Chest pain TECHNIQUE: PA and lateral views of the chest were obtained. COMPARISON: Chest radiograph dated 07/16/2020 FINDINGS: Hyperexpansion of lungs with increased lucency and some architectural distortion in the upper lung zo dayday consistent with emphysema. There is new blunting at the bilateral posterior sulci but not the cos tophrenic angles consistent with very small bilateral pleural effusions. Increasing opacities in the left mid and bilateral lower lung zones. This includes some scattered linear and bandlike opacities c onsistent with atelectasis/scarring. No pneumothorax. The cardiomediastinal silhouette is normal. IMPRESSION: 1. Increasing opacities in the left mid and bilateral lower lung zones which could represent pulmonar y edema, pneumonia, atelectasis or more likely some combination thereof. 2. Very small bilateral pleural effusions. 3. Emphysema. Reviewed, dictated and finalized at location A. IMPRESSION: 1. Increasing opacities in the left mid and bilateral lower lung zones which co uld represent pulmonary edema, pneumonia, atelectasis or more likely some combi nation thereof. 2. Very small bilateral pleural effusions. 3. Emphysema.
--- NOTE | 2021-12-08 04:37 | ECG_ITS ---
Measurements Intervals [place] Rate: 116 P: 40 HI: 151 QRS: 1 QRSD: 97 T: 55 QT: 300 QTc: 417 Interpretive Statements SINUS TACHYCARDIA COMPARED TO ECG 08/05/2020 09:49:16 SINUS TACHYCARDIA NOW PRESENT Electronically Signed On 12-08-2021 10:55:03 CDT by Joshua Ho M.D.
[2021-12-08] MEDS: NITROGLYCERIN SL 0.4 MG TABLET SUBLINGUAL (05:02)
--- NOTE | 2021-12-08 05:02 | PC.NURSE ---
1st dose SL Nitro given at this time. Pt reports pain 5/10, BP 123/66
[2021-12-08 05:07] LABS: Basophils Percent Auto 0.2 % (0.2-1.2); Eosinophils Absolute Auto 0.1 K/mm3 (0-0.3); Eosinophils Percent Auto 0.6 % (0-4.4); Hematocrit 33.7 % (42.0-52.0); Hemoglobin 10.9 g/dL (14.0-18.0); Immature Granulocyte Absolute 0.11 K/mm3 (0.00-0.031); Immature Granulocyte Percent A 0.7 % (0-0.5); Lymphocytes Absolute Auto 0.98 K/mm3 (0.9-3.2); Lymphocytes Percent Auto 5.8 % (18.3-44.2); Mean Corpuscular HGB Conc 32.3 g/dl (32-36); Mean Corpuscular Hemoglobin 27.7 pg (26-34); Mean Corpuscular Volume 85.5 fl (80-100); Mean Platelet Volume 9.8 fl (7.4-10.4); Monocytes Absolute Auto 1.6 K/mm3 (0.1-0.6); Monocytes Percent Auto 9.7 % (2.6-8.5); Neutrophils Absolute Auto 13.9 K/mm3 (1.3-6.7); Platelet Count Result 242 k/mm3 (150-375); Red Blood Count 3.94 M/mm3 (4.6-6.20); Red Cell Distribution Width 14.6 % (11.5-14.5); White Blood Count 16.8 K/mm3 (4.5-10.0)
--- NOTE | 2021-12-08 05:07 | PC.NURSE ---
2nd dose nitro NOT GIVEN. Pt rates pain 5/10, BP 92/54
[2021-12-08] MEDS: MORPHINE SULFATE (*CRX) 4 MG/ML INJ IV PUSH (05:08)
[2021-12-08 05:19] LABS: Alanine Aminotransferase 15 U/L (6-50); Albumin Level 3.8 g/dL (3.5-5.1); Alkaline Phosphatase 78 U/L (38-126); Anion Gap 6 mmol/L (8-16); Aspartate Amino Transferase 22 U/L (17-59); Bilirubin,Total 1.5 mg/dL (0.2-1.3); Blood Urea Nitrogen 21 mg/dL (9-20); Calcium 8.6 mg/dL (8.4-10.2); Carbon Dioxide 23 mmol/L (22-30); Chloride 110 mmol/L (98-107); Estimated CRCL calculation 52 ml/min; Estimated Glomerular Filt Rate > 60; Glucose 120 mg/dL (65-110); Potassium 4.2 mmol/L (3.4-5.0); Sodium 139 mmol/L (137-145)
[2021-12-08] MEDS: SODIUM CHLORIDE 0.9% IV 500 ML 999 ML IV CONT (05:26)
[2021-12-08 05:29] LABS: Troponin I < 0.012 ng/mL (0.000-0.034)
[2021-12-08] MEDS: ALBUTEROL SULFATE NEB 2.5 MG/3 ML INH 5 MG INHALATION ×4 (05:30→20:02)
--- NOTE | 2021-12-08 06:25 | ED.CHESTPAIN ---
HPI - Chest Pain General Chief Complaint: Chest Pain Stated Complaint: chest pain Time Seen by Provider: 12/08/21 04:37 History of Present Illness HPI narrative: 71-year-old male presenting the emergency department for evaluation of left-sided chest pain. Patient states that approximately 330 he had onset of left-sided chest pain that he described as a 12 out of 10. Patient did take aspirin at home for this. Patient presented to the emergency department due to the pain not improving. Patient has no prior history of coronary artery disease. Patient does have history of COPD and follows up with Dr. Mckay. 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 Patient states since the pain began and has improved to some extent. Patient does not appear to be in distress at this time. Does have COPD and is normally on 2 to 3 L of oxygen by nasal cannula. Related Data Home Medications Medication Instructions Recorded Confirmed amlodipine 10 mg tablet 10 mg PO QAM 03/07/20 12/08/21 doxazosin 8 mg tablet 8 mg PO HS 03/07/20 12/08/21 ergocalciferol (vitamin D2) 1,250 1,250 mcg PO WEEKLY 03/07/20 12/08/21 mcg (50,000 unit) capsule fluticasone propionate 50 1 spray intranasal DAILY PRN 03/07/20 12/08/21 mcg/actuation nasal Congestion spray,suspension montelukast 10 mg tablet 10 mg PO QAM 03/07/20 12/08/21 (Singulair) nebulizer and compressor (Easy Neb #1 ea 03/07/20 12/08/21 Compressor Nebulizer) sildenafil 100 mg tablet 100 mg PO DAILY PRN Erectile 03/07/20 12/08/21 Dysfunction aspirin 81 mg tablet 81 mg PO DAILY 08/04/20 12/08/21 albuterol sulfate 2.5 mg/3 mL 2.5 mg inhalation BID PRN 04/02/21 12/08/21 (0.083 %) solution for nebulization Shortness Of Breath Or Wheezing Allergies Allergy/AdvReac Type Severity Reaction Status Date / Time lisinopril Allergy Severe Swelling Verified 12/08/21 04:50 Penicillins Allergy Intermediate Hives / Verified 12/08/21 04:50 Red Face Sulfa (Sulfonamide Allergy Intermediate Hives / Verified 12/08/21 04:50 Antibiotics) Red Face Review of Systems Review of Systems: CONSTITUTIONAL: Denies fever, chills, or sweats. EYES: Denies visual changes, redness, or discharge. ENT: Denies rhinorrhea, congestion, sore throat, or otalgia. CARDIOVASCULAR: Denies chest pain, palpitations, or edema. RESPIRATORY: See HPI GASTROINTESTINAL: Denies abdominal pain, nausea, vomiting, or diarrhea. GENITOURINARY: Denies dysuria or hematuria. SKIN: Denies rash or itching. MUSCULOSKELETAL: Denies back pain, joint pain, or myalgia. NEUROLOGIC: Denies headache, numbness, or weakness. PSYCHIATRIC: Denies anxiety or depression. [facility] Past Medical History Medical History Asbestos exposure BPH (benign prostatic hyperplasia) Chronic kidney disease Chronic viral hepatitis C COPD (chronic obstructive pulmonary disease) Dependence on supplemental oxygen Elevated PSA Environmental allergies H/O nicotine dependence HTN (hypertension) Nocturnal hypoxemia Obesity Sleep apnea Wears glasses Surgical History Surgical History History of ankle surgery 2016 History of back surgery Family History Family History Father Cancer Pancreatic cancer Mother Asthma Cerebrovascular accident Sibling Diabetes mellitus Hypertension Heart disease Cerebrovascular accident Other Lung disease Social History Social History Smoking packs per day: 1 Smoking cigarettes per day: 20.0 Years smoked: 50 Smoking pack-years: 50.00 Smoking status: Former smoker Tobacco type: cigarettes Smoking end date: 06/13/17 Alcohol intake: current Drinks per week: 1 Alcohol use details: SCIAL DRINKER IN PAST Substance use: never Substance
--- NOTE | 2021-12-08 06:32 | PC.NURSE ---
Addendum entered by Alma Hanson RN 12/08/21 06:43: Pt refused straight catheter, stating just give me a half hour, im not ready for that Original Note: Pt attempted to provide urine sample, no success. Urinal at bedside
[2021-12-08 06:49] LABS: D Dimer 0.72 ug/mL (<0.48)
--- NOTE | 2021-12-08 07:21 | PC.NURSE ---
Patient report received from ROBEL Canela. All questions answered and care of patient assumed. Patient off unit to CT.
[2021-12-08 08:15] LABS: Appearance Urine Clear (Clear); Bilirubin Urine 1+ (Negative); Blood Urine 1+ (Negative); Color Urine Amber (Yellow); Glucose Urine UA Negative (Negative); Ketones Urine Negative (Negative); Leukocyte Esterase Ur Negative LEU/UL (Negative); Nitrate Urine Negative (Negative); Protein Urine Trace mg/dL (Negative); pH Urine 5.5 (5.0-9.0)
[2021-12-08 08:20] LABS: Add Urine Microscopic? YES
[2021-12-08 08:38] LABS: Troponin I < 0.012 ng/mL (0.000-0.034)
[2021-12-08 08:59] LABS: SARS-CoV-2 RNA PCR Negative
[2021-12-08] MEDS: cefTRIAXone 2 GM in SODIUM CHLORIDE 0.9% IV 100 ML 200 ML IVPB (09:30)
[2021-12-08] MEDS: ENOXAPARIN 100 MG/ML SYRINGE SUB-Q ×2 (09:36→21:14)
--- NOTE | 2021-12-08 09:50 | PC.NURSE ---
RT notified of Albuterol treatment.
--- NOTE | 2021-12-08 10:03 | PC.NURSE ---
RT at bedside to admin breathing tx.
[2021-12-08 10:10] LABS: Lactic Acid Reflex 1.5 mmol/L (0.7-2.0)
--- NOTE | 2021-12-08 10:38 | ADMGEN ---
This patient, Lee Cotto Sr., was admitted to IMU Room 209-01. Patient/family oriented to hospital policies and general routines including ID bracelet, bed and alarms, visiting hours, pain management, procedures, bathroom and other care routines, personal items, smoking policy, room service/diet, and visiting hours. Information on how to activate the Rapid Response Team has been discussed. Patient/Family are encouraged to report perceived risks to care and to ask questions if they do not understand what they are told or what they should do.
[2021-12-08 11:30] LABS: NT Pro B Type Natriuretic Pept 128 pg/mL (5-100); Troponin I < 0.012 ng/mL (0.000-0.034)
[2021-12-08] MEDS: IPRATROPIUM BR 0.02% INH SOLN 0.5 MG/2.5 ML VIAL INHALATION ×2 (16:59→20:02)
[2021-12-08] MEDS: IBUPROFEN 400 MG TABLET PO (19:00)
[2021-12-08] MEDS: DOXAZOSIN MESYLATE 4 MG TABLET 8 MG PO (21:14)
[2021-12-08] MEDS: LORATADINE 10 MG TABLET PO (21:15)
[2021-12-08] MEDS: ROFLUMILAST 500 MCG TABLET PO (21:18)
--- NOTE | 2021-12-08 23:06 | PM.IMHP ---
H&P: HPI History of Present Illness Date/Time: Patient requires inpatient monitoring with expected length of stay to exceed 2 midnights for management of care. 12/08/21 0175 Chief Complaint: Chest pain Narrative: Mr. Cotto is a 71-year-old gentleman who presented emergency room with complaints of chest discomfort. Patient states that at approximately 03:30 this morning he woke up with chest discomfort over his left breast area that did radiate into his shoulder. Patient states that deep breathing made the pain worse and nothing made the pain better. Patient states that he did notice he had cold sweats yesterday, but he never checked his temperature. Patient states he has had a dry cough over the last 2 days. Patient states he does have a known history of COPD and wears oxygen at home at 2 L per nasal cannula at rest and 3 L per nasal cannula with activity. Patient states he was having no abnormal shortness of breath with this chest discomfort. Patient states he did quit smoking a few months ago but prior to this he was smoking approximately 1 pack of cigarettes a day for 50 years. Upon evaluation in emergency room patient underwent CTA that showed a few segmental and subsegmental pulmonary arteries in the bilateral lower lobes with suspicion for pulmonary emboli. Specificity is however limited by suboptimal contrast opacification along with some streak and motion artifact. Patchy ground-glass opacities and consolidation in the left upper lobe suspicious for pneumonia. Patient has a known history of COPD with home oxygen dependence, asbestos exposure, BPH, chronic kidney disease, chronic viral hepatitis-C, BPH, hypertension, and elevated PSA. Patient does follow on a routine basis with pulmonology. Review of Systems Review of Systems: A 12 point review of systems was completed patient all pertinent positive and negative per HPI the remainder are unremarkable. [facility] Past Medical History Medical History Asbestos exposure BPH (benign prostatic hyperplasia) Chronic kidney disease Chronic viral hepatitis C COPD (chronic obstructive pulmonary disease) Dependence on supplemental oxygen Elevated PSA Environmental allergies H/O nicotine dependence HTN (hypertension) Nocturnal hypoxemia Obesity Sleep apnea Wears glasses Surgical History Surgical History History of ankle surgery 2016 History of back surgery Family History Family History Father Cancer Pancreatic cancer Mother Asthma Cerebrovascular accident Sibling Diabetes mellitus Hypertension Heart disease Cerebrovascular accident Other Lung disease Social History Social History Smoking packs per day: 1 Smoking cigarettes per day: 20.0 Years smoked: 50 Smoking pack-years: 50.00 Smoking status: Former smoker Tobacco type: cigarettes Smoking end date: 06/13/17 Alcohol intake: current Drinks per week: 1 Alcohol use details: SCIAL DRINKER IN PAST Substance use: never Substance use type: does not use Gender identity (if verbalized by the patient): Male Spiritual care concerns: No Meds Home Medications and Allergies Home Medications Medication Instructions Recorded Confirmed Type amlodipine 10 mg tablet 10 mg PO QAM 03/07/20 12/08/21 History doxazosin 8 mg tablet 8 mg PO HS 03/07/20 12/08/21 History ergocalciferol (vitamin D2) 1,250 1,250 mcg PO WEEKLY 03/07/20 12/08/21 History mcg (50,000 unit) capsule fluticasone propionate 50 1 spray intranasal DAILY PRN 03/07/20 12/08/21 History mcg/actuation nasal Congestion spray,suspension montelukast 10 mg tablet 10 mg PO QAM 03/07/20 12/08/21 History (Singulair) nebulizer and compressor (Easy Neb #1 ea 03/07/20 12/08/21 History Compressor Ne
[2021-12-09] VITALS (19 sets, daily range): BP systolic 111–134; BP diastolic 52–69; PULSE 90–114; RESP 18–24; TEMP 36.6–37.7; O2SAT 90–94
[2021-12-09] MEDS: ALBUTEROL SULFATE NEB 2.5 MG/3 ML INH 5 MG INHALATION ×4 (01:10→21:41)
[2021-12-09] MEDS: IPRATROPIUM BR 0.02% INH SOLN 0.5 MG/2.5 ML VIAL INHALATION ×4 (01:10→21:41)
[2021-12-09 05:15] LABS: Basophils Percent Auto 0.3 % (0.2-1.2); Eosinophils Absolute Auto 0.1 K/mm3 (0-0.3); Eosinophils Percent Auto 0.8 % (0-4.4); Hematocrit 33.3 % (42.0-52.0); Hemoglobin 10.5 g/dL (14.0-18.0); Immature Granulocyte Absolute 0.11 K/mm3 (0.00-0.031); Immature Granulocyte Percent A 0.7 % (0-0.5); Lymphocytes Absolute Auto 0.52 K/mm3 (0.9-3.2); Lymphocytes Percent Auto 3.3 % (18.3-44.2); Mean Corpuscular HGB Conc 31.5 g/dl (32-36); Mean Corpuscular Hemoglobin 27.4 pg (26-34); Mean Corpuscular Volume 86.9 fl (80-100); Mean Platelet Volume 9.9 fl (7.4-10.4); Monocytes Absolute Auto 1.8 K/mm3 (0.1-0.6); Monocytes Percent Auto 11.4 % (2.6-8.5); Neutrophils Absolute Auto 13.2 K/mm3 (1.3-6.7); Neutrophils Percent Auto 83.5 % (45.5-73.1); Platelet Count Result 233 k/mm3 (150-375); Red Blood Count 3.83 M/mm3 (4.6-6.20); Red Cell Distribution Width 14.6 % (11.5-14.5); White Blood Count 15.8 K/mm3 (4.5-10.0)
[2021-12-09 05:37] LABS: Alanine Aminotransferase 16 U/L (6-50); Albumin Level 3.6 g/dL (3.5-5.1); Alkaline Phosphatase 93 U/L (38-126); Anion Gap 7 mmol/L (8-16); Aspartate Amino Transferase 19 U/L (17-59); Bilirubin,Total 1.3 mg/dL (0.2-1.3); Blood Urea Nitrogen 15 mg/dL (9-20); Calcium 8.8 mg/dL (8.4-10.2); Carbon Dioxide 26 mmol/L (22-30); Chloride 109 mmol/L (98-107); Estimated CRCL calculation 58 ml/min; Estimated Glomerular Filt Rate > 60; Glucose 124 mg/dL (65-110); Magnesium 2.1 mg/dL (1.6-2.3); Potassium 3.8 mmol/L (3.4-5.0); Sodium 142 mmol/L (137-145)
[2021-12-09] MEDS: FLUTICASONE/UMECLIDIN/VILANTER 100-62.5-25 MCG ELLIPTA 1 PUFF INHALATION (07:56)
[2021-12-09] MEDS: MONTELUKAST SODIUM 10 MG TABLET PO (08:42)
[2021-12-09] MEDS: ASPIRIN 81 MG ENTERIC TABLET PO (08:42)
[2021-12-09] MEDS: amLODIPine BESYLATE 5 MG TABLET 10 MG PO (08:42)
[2021-12-09] MEDS: ENOXAPARIN 100 MG/ML SYRINGE SUB-Q ×2 (08:43→23:05)
[2021-12-09] MEDS: IBUPROFEN 400 MG TABLET PO ×2 (08:46→15:24)
--- NOTE | 2021-12-09 14:03 | PM.IMPN ---
Progress Note: A&P Assessment and Plan (1) Chest pain: Code(s): R07.9 - Chest pain, unspecified Status: Acute Assessment and Plan: Troponins x3 are negative. Pleuritic in nature. Likely secondary to pneumonia versus PE. (2) Pneumonia: Code(s): J18.9 - Pneumonia, unspecified organism Status: Acute Assessment and Plan: Continue IV antibiotics. (3) Pulmonary emboli: Code(s): I26.99 - Other pulmonary embolism without acute cor pulmonale Status: Acute Assessment and Plan: Question of - continue Lovenox. CT angio prior to discharge (4) COPD (chronic obstructive pulmonary disease): Code(s): J44.9 - Chronic obstructive pulmonary disease, unspecified Status: Acute Assessment and Plan: Will continue with patient's home oxygen since patient is stable with this. Will continue with breathing treatments. Subjective Date/time seen: 12/09/21 14:03 shortness of breath improved. Still complaining of pleuritic left-sided chest pain. improved. Exam Narrative: Constitutional: Patient is well-nourished in no acute distress. Patient is alert and oriented x3 HEENT: Moist mucous membranes. No scleral icterus. No lymphadenopathy. Neck: No carotid bruits noted no JVD noted Lungs: Lung sounds are decreased to bilateral lower lobes with left being greater than right to auscultation. No accessory muscle use. No rhonchi, rales, or wheezes noted. Cardiovascular: Apical pulse is regular rate and rhythm. S1-S2 noted, no S3 or S4 noted. No gallops, murmurs, or rubs noted. Abdomen: Soft, round, and nontender. No palpable masses. Extremities: No edema. Nontender. Skin: No rashes or lesions. Warm and dry. Skin is intact. Neurological: No focal neurological deficits. Cranial nerves II-XII grossly intact. Psychiatric: Cooperative, appropriate mood, and affect Objective Data Vital Signs Vital Signs: Vital Signs - 24 hr 12/08/21 16:00 12/08/21 16:59 12/08/21 17:15 Temperature 99.4 F Pulse Rate 112 H 125 H 121 H Respiratory Rate 20 26 H 26 H Blood Pressure 114/60 Pulse Oximetry 96 Oxygen Delivery Oxygen Flow Rate 12/08/21 16:00 12/08/21 18:00 12/08/21 20:10 Temperature Pulse Rate 115 H 112 H 110 H Respiratory Rate 20 Blood Pressure Pulse Oximetry Oxygen Delivery Oxygen Flow Rate 12/08/21 20:10 12/08/21 20:30 12/08/21 20:00 Temperature Pulse Rate 110 H 110 H 102 H Respiratory Rate 20 20 20 Blood Pressure Pulse Oximetry 91 91 Oxygen Delivery Nasal Cannula Nasal Cannula Oxygen Flow Rate 1.5 2 12/08/21 20:00 12/08/21 20:00 12/08/21 22:00 Temperature 97.7 F Pulse Rate 108 H 110 H 105 H Respiratory Rate 24 H Blood Pressure 120/65 Pulse Oximetry 92 Oxygen Delivery Oxygen Flow Rate 12/09/21 00:00 12/09/21 00:00 12/09/21 01:10 Temperature 98.2 F Pulse Rate 96 96 114 H Respiratory Rate 20 20 20 Blood Pressure 125/54 L Pulse Oximetry 92 92 Oxygen Delivery Nasal Cannula Oxygen Flow Rate 2 12/09/21 01:30 12/09/21 00:00 12/09/21 02:00 Temperature Pulse Rate 114 H 102 H 96 Respiratory Rate 20 Blood Pressure Pulse Oximetry Oxygen Delivery Oxygen Flow Rate 12/09/21 04:00 12/09/21 04:00 12/09/21 06:00 Temperature Pulse Rate 96 105 H 108 H Respiratory Rate 20 Blood Pressure Pulse Oximetry 92 Oxygen Delivery Nasal Cannula Oxygen Flow Rate 2 12/09/21 04:00 12/09/21 07:58 12/09/21 07:59 Temperature 99.1 F Pulse Rate 111 H 113 H Respiratory Rate 20 20 Blood Pressure 133/69 Pulse Oximetry 93 90 Oxygen Delivery Nasal Cannula Oxygen Flow Rate 2 12/09/21 08:06 12/09/21 08:00 12/09/21 08:00 Temperature 98 F Pulse Rate 109 H 112 H Respiratory Rate 20 24 H Blood Pressure 134/64 Pulse Oximetry 93 93 Oxygen Delivery Nasal Cannula Oxygen Flow Rate 2 12/09/21 12:00 12/09/21 13:58 Temperature
--- NOTE | 2021-12-09 19:41 | PC.NURSE ---
patient to be transferred to 311. report given to mary bosch.
[2021-12-09] MEDS: LORATADINE 10 MG TABLET PO (23:05)
[2021-12-09] MEDS: DOXAZOSIN MESYLATE 4 MG TABLET 8 MG PO (23:05)
[2021-12-09] MEDS: ROFLUMILAST 500 MCG TABLET PO (23:05)
[2021-12-10] VITALS (12 sets, daily range): BP systolic 116–134; BP diastolic 51–70; PULSE 101–118; RESP 16–22; TEMP 36.6–37.2; O2SAT 91–94
[2021-12-10] MEDS: ALBUTEROL SULFATE NEB 2.5 MG/3 ML INH 5 MG INHALATION ×2 (03:08→20:41)
[2021-12-10] MEDS: IPRATROPIUM BR 0.02% INH SOLN 0.5 MG/2.5 ML VIAL INHALATION ×3 (03:08→20:41)
[2021-12-10] MEDS: ENOXAPARIN 100 MG/ML SYRINGE SUB-Q (08:25)
[2021-12-10] MEDS: FLUTICASONE PROPIONATE 0.05% NA SPR 16 GM BTL (*BKC) 1 SPRAY NASAL (08:25)
[2021-12-10] MEDS: ERGOCALCIFEROL 50,000 UNIT CAPSULE 50000 UNITS PO (08:25)
[2021-12-10] MEDS: ASPIRIN 81 MG ENTERIC TABLET PO (08:26)
[2021-12-10] MEDS: MONTELUKAST SODIUM 10 MG TABLET PO (08:26)
[2021-12-10] MEDS: amLODIPine BESYLATE 5 MG TABLET 10 MG PO (08:26)
[2021-12-10 08:58] LABS: Hematocrit 31.5 % (42.0-52.0); Hemoglobin 10.3 g/dL (14.0-18.0); Mean Corpuscular HGB Conc 32.7 g/dl (32-36); Mean Corpuscular Hemoglobin 27.8 pg (26-34); Mean Corpuscular Volume 85.1 fl (80-100); Mean Platelet Volume 9.8 fl (7.4-10.4); Platelet Count Result 282 k/mm3 (150-375); Red Cell Distribution Width 14.6 % (11.5-14.5)
[2021-12-10 09:12] LABS: Anion Gap 7 mmol/L (8-16); Blood Urea Nitrogen 15 mg/dL (9-20); Carbon Dioxide 26 mmol/L (22-30); Chloride 109 mmol/L (98-107); Estimated CRCL calculation 53 ml/min; Estimated Glomerular Filt Rate > 60; Glucose 116 mg/dL (65-110); Sodium 142 mmol/L (137-145)
--- NOTE | 2021-12-10 12:13 | PM.IMPN ---
Progress Note: A&P Assessment and Plan (1) Chest pain: Code(s): R07.9 - Chest pain, unspecified Status: Acute Assessment and Plan: Troponins x3 are negative. Pleuritic in nature. Likely secondary to pneumonia continue IV antibiotics. Will adjust pain medication as well (2) Pneumonia: Code(s): J18.9 - Pneumonia, unspecified organism Status: Acute Assessment and Plan: Continue IV antibiotics. (3) Pulmonary emboli: Code(s): I26.99 - Other pulmonary embolism without acute cor pulmonale Status: Acute Assessment and Plan: PE unlikely. Repeat CT angio negative. Will Dc Lovenox (4) COPD (chronic obstructive pulmonary disease): Code(s): J44.9 - Chronic obstructive pulmonary disease, unspecified Status: Acute Assessment and Plan: Will continue with patient's home oxygen since patient is stable with this. Will continue with breathing treatments. Subjective Date/time seen: 12/10/21 12:13 still having some left-sided pleuritic chest pain. CT angio of the chest noted. PE unlikely. This is consistent with his D-dimer. Exam Narrative: Constitutional: Patient is well-nourished in no acute distress. Patient is alert and oriented x3 HEENT: Moist mucous membranes. No scleral icterus. No lymphadenopathy. Neck: No carotid bruits noted no JVD noted Lungs: Lung sounds are decreased to bilateral lower lobes with left being greater than right to auscultation. No accessory muscle use. No rhonchi, rales, or wheezes noted. Cardiovascular: Apical pulse is regular rate and rhythm. S1-S2 noted, no S3 or S4 noted. No gallops, murmurs, or rubs noted. Abdomen: Soft, round, and nontender. No palpable masses. Extremities: No edema. Nontender. Skin: No rashes or lesions. Warm and dry. Skin is intact. Neurological: No focal neurological deficits. Cranial nerves II-XII grossly intact. Psychiatric: Cooperative, appropriate mood, and affect Objective Data Vital Signs Vital Signs: Vital Signs - 24 hr 12/09/21 13:58 12/09/21 14:05 12/09/21 16:00 Temperature 100 F H Pulse Rate 110 H 108 H 109 H Respiratory Rate 20 20 20 Blood Pressure 120/52 L Pulse Oximetry 93 Oxygen Delivery Oxygen Flow Rate 12/09/21 21:30 12/09/21 21:42 12/09/21 21:43 Temperature Pulse Rate 103 H 110 H Respiratory Rate 22 H 18 Blood Pressure Pulse Oximetry 93 Oxygen Delivery Nasal Cannula Oxygen Flow Rate 2 12/09/21 20:00 12/09/21 20:00 12/10/21 03:10 Temperature 99.0 F Pulse Rate 109 H 112 H Respiratory Rate 18 20 Blood Pressure 126/66 Pulse Oximetry 94 93 Oxygen Delivery Nasal Cannula Oxygen Flow Rate 2 12/10/21 03:19 12/10/21 06:00 12/10/21 08:00 Temperature 99.0 F Pulse Rate 109 H 115 H Respiratory Rate 20 18 Blood Pressure 116/65 Pulse Oximetry 91 92 Oxygen Delivery Nasal Cannula Oxygen Flow Rate 2 Intake/Output Intake/Output: Intake & Output 12/07/21 12/08/21 12/09/21 12/10/21 23:59 23:59 23:59 23:59 Intake Total 2110 2870 250 Output Total 1000 1275 375 Balance 1110 1595 -125 Meds/Results Medications: Active Medications Generic Name Dose Route Start Last Admin Trade Name Freq PRN Reason Stop Dose Admin Acetaminophen 650 mg 12/08/21 17:54 Acetaminophen 325 Mg Tablet PO Q6H PRN Mild Pain (1-3) or Fever Albuterol 5 mg 12/08/21 16:00 12/10/21 08:52 Albuterol Sulfate Neb 2.5 Mg/3 Ml Inh INHALATION Not Given Q6HRT [facility] Amlodipine Besylate 10 mg 12/09/21 09:00 12/10/21 08:26 Amlodipine Besylate 5 Mg Tablet PO 10 mg QAM BALWINDER Administration Aspirin 81 mg 12/09/21 09:00 12/10/21 08:26 Aspirin 81 Mg Enteric Tablet PO 01/08/22 08:59 81 mg DAILY BALWINDER Administration Doxazosin Mesylate 8 mg 12/08/21 21:00 12/09/21 23:05 Doxazosin Mesylate 4 Mg Tablet PO 8 mg HS BALWINDER Administration Enoxaparin Sodium 40 mg 12/11/21 09:00 Enoxa
[2021-12-10] MEDS: ALBUTEROL SULFATE NEB 2.5 MG/0.5 ML INH 5 MG (14:36)
[2021-12-10] MEDS: ROFLUMILAST 500 MCG TABLET PO (20:52)
[2021-12-10] MEDS: LORATADINE 10 MG TABLET PO (20:52)
[2021-12-10] MEDS: DOXAZOSIN MESYLATE 4 MG TABLET 8 MG PO (20:52)
[2021-12-10] MEDS: MELATONIN 5 MG TABLET PO (23:03)
[2021-12-11] VITALS (13 sets, daily range): BP systolic 122–133; BP diastolic 67–115; PULSE 79–117; RESP 18–22; TEMP 36.4–37.7; O2SAT 18–94
[2021-12-11] MEDS: IPRATROPIUM BR 0.02% INH SOLN 0.5 MG/2.5 ML VIAL INHALATION ×4 (02:27→21:39)
[2021-12-11] MEDS: ALBUTEROL SULFATE NEB 2.5 MG/3 ML INH 5 MG INHALATION ×4 (02:28→21:39)
[2021-12-11 07:44] LABS: Anion Gap 7 mmol/L (8-16); Blood Urea Nitrogen 17 mg/dL (9-20); Carbon Dioxide 25 mmol/L (22-30); Chloride 109 mmol/L (98-107); Estimated CRCL calculation 57 ml/min; Estimated Glomerular Filt Rate > 60; Glucose 120 mg/dL (65-110); Potassium 3.8 mmol/L (3.4-5.0); Sodium 141 mmol/L (137-145)
[2021-12-11] MEDS: amLODIPine BESYLATE 5 MG TABLET 10 MG PO (09:55)
[2021-12-11] MEDS: ASPIRIN 81 MG ENTERIC TABLET PO (09:55)
[2021-12-11] MEDS: ENOXAPARIN 40 MG/0.4 ML SYRINGE SUB-Q (09:56)
[2021-12-11] MEDS: MONTELUKAST SODIUM 10 MG TABLET PO (09:56)
--- NOTE | 2021-12-11 11:21 | PM.IMPN ---
Progress Note: A&P Assessment and Plan (1) Chest pain: Code(s): R07.9 - Chest pain, unspecified Status: Acute Assessment and Plan: Likely secondary to pneumonia, pain is pleuritic (2) Pneumonia: Code(s): J18.9 - Pneumonia, unspecified organism Status: Acute Assessment and Plan: Worsening WBCs, worsening imaging. Patient is feeling better though. Will change antibiotics to Levaquin for broader coverage (3) Pulmonary emboli: Code(s): I26.99 - Other pulmonary embolism without acute cor pulmonale Status: Acute Assessment and Plan: PE not likely, not on anticoagulation (4) COPD (chronic obstructive pulmonary disease): Code(s): J44.9 - Chronic obstructive pulmonary disease, unspecified Status: Acute Assessment and Plan: Chronic. No wheeze on exam Subjective Date/time seen: 12/11/21 11:21 Reports that he is feeling better today. Exam Narrative: General: alert and oriented Psych: appropriate mood nad affect Eyes: PERRLA Neck: Trachea midline, no new lesions Skin: no changes Lungs: CTA Cardiac: Normal S1,S2, no MGR ABD: soft, nd, nt, nbs Ext: no new lesions, no cce Vasc: Pulses intact Objective Data Vital Signs Vital Signs: Vital Signs - 24 hr 12/10/21 14:45 12/10/21 14:45 12/10/21 14:00 Temperature 97.9 F Pulse Rate 110 H 118 H Respiratory Rate 20 16 Blood Pressure 134/70 Pulse Oximetry 92 91 Oxygen Delivery Nasal Cannula Oxygen Flow Rate 4 12/10/21 14:54 12/10/21 14:54 12/10/21 20:37 Temperature Pulse Rate 110 H 101 H Respiratory Rate 20 22 H Blood Pressure Pulse Oximetry 92 Oxygen Delivery Oxygen Flow Rate 12/10/21 20:42 12/10/21 20:45 12/10/21 21:40 Temperature Pulse Rate 107 H 110 H Respiratory Rate 20 18 Blood Pressure 119/51 L Pulse Oximetry 91 94 Oxygen Delivery Nasal Cannula Oxygen Flow Rate 4 12/10/21 20:00 12/11/21 02:20 12/11/21 02:29 Temperature Pulse Rate 108 H 112 H Respiratory Rate 22 H 20 Blood Pressure Pulse Oximetry 94 Oxygen Delivery Nasal Cannula Oxygen Flow Rate 2 12/11/21 06:00 12/11/21 08:21 12/11/21 08:15 Temperature 99.8 F H Pulse Rate 117 H 97 Respiratory Rate 18 22 H Blood Pressure 122/67 Pulse Oximetry 18 L 93 Oxygen Delivery Nasal Cannula Oxygen Flow Rate 4 12/11/21 08:23 12/11/21 09:55 Temperature Pulse Rate 98 Respiratory Rate 22 H Blood Pressure Pulse Oximetry 91 Oxygen Delivery Nasal Cannula Oxygen Flow Rate 2 Intake/Output Intake/Output: Intake & Output 12/08/21 12/09/21 12/10/21 12/11/21 23:59 23:59 23:59 23:59 Intake Total 2110 2870 1450 1030 Output Total 1000 1275 1075 400 Balance 1110 1595 375 630 Meds/Results Medications: Active Medications Generic Name Dose Route Start Last Admin Trade Name Freq PRN Reason Stop Dose Admin Acetaminophen 650 mg 12/08/21 17:54 Acetaminophen 325 Mg Tablet PO Q6H PRN Mild Pain (1-3) or Fever Hydrocodone Bitart/Acetaminophen 1 tab 12/10/21 12:13 Hydrocodone/Acetaminophen (*Crx) 5-325 Mg Tablet PO Q4H PRN Pain Rated 7-10 Albuterol 5 mg 12/08/21 16:00 12/11/21 08:21 Albuterol Sulfate Neb 2.5 Mg/3 Ml Inh INHALATION 5 mg Q6HRT BALWINDER Administration Amlodipine Besylate 10 mg 12/09/21 09:00 12/11/21 09:55 Amlodipine Besylate 5 Mg Tablet PO 10 mg QAM BALWINDER Administration Aspirin 81 mg 12/09/21 09:00 12/11/21 09:55 Aspirin 81 Mg Enteric Tablet PO 01/08/22 08:59 81 mg DAILY BALWINDER Administration Doxazosin Mesylate 8 mg 12/08/21 21:00 12/10/21 20:52 Doxazosin Mesylate 4 Mg Tablet PO 8 mg HS BALWINDER Administration Enoxaparin Sodium 40 mg 12/11/21 09:00 12/11/21 09:56 Enoxaparin 40 Mg/0.4 Ml Syringe SUB-Q 40 mg DAILY BALWINDER Administration Ergocalciferol 50,000 unit 12/10/21 09:00 12/10/21 08:25 Ergocalciferol 50,000 Unit Capsule PO 50,000 unit
[2021-12-11] MEDS: DOXAZOSIN MESYLATE 4 MG TABLET 8 MG PO (20:13)
[2021-12-11] MEDS: ROFLUMILAST 500 MCG TABLET PO (20:13)
[2021-12-11] MEDS: LORATADINE 10 MG TABLET PO (20:14)
[2021-12-12] MEDS: ALBUTEROL SULFATE NEB 2.5 MG/3 ML INH 5 MG INHALATION ×2 (03:10→08:21)
[2021-12-12] MEDS: IPRATROPIUM BR 0.02% INH SOLN 0.5 MG/2.5 ML VIAL INHALATION ×2 (03:11→08:21)
[2021-12-12 03:13] VITALS: PULSE 101; RESP 18
[2021-12-12 06:00] VITALS: BP 120/62; PULSE 100; RESP 20; TEMP 36.5; O2SAT 97
[2021-12-12 06:02] LABS: Hematocrit 29.4 % (42.0-52.0); Hemoglobin 9.7 g/dL (14.0-18.0); Mean Corpuscular Hemoglobin 27.7 pg (26-34); Mean Platelet Volume 9.5 fl (7.4-10.4); Platelet Count Result 296 k/mm3 (150-375); White Blood Count 13.1 K/mm3 (4.5-10.0)
[2021-12-12 06:16] LABS: Anion Gap 9 mmol/L (8-16); Blood Urea Nitrogen 22 mg/dL (9-20); Calcium 8.8 mg/dL (8.4-10.2); Carbon Dioxide 24 mmol/L (22-30); Chloride 110 mmol/L (98-107); Estimated CRCL calculation 57 ml/min; Estimated Glomerular Filt Rate > 60; Glucose 103 mg/dL (65-110); Potassium 3.7 mmol/L (3.4-5.0); Sodium 143 mmol/L (137-145)
[2021-12-12 08:20] VITALS: PULSE 109; RESP 20; O2SAT 93
[2021-12-12 08:26] VITALS: PULSE 99; RESP 20; O2SAT 93
[2021-12-12] MEDS: amLODIPine BESYLATE 5 MG TABLET 10 MG PO (08:48)
[2021-12-12] MEDS: ASPIRIN 81 MG ENTERIC TABLET PO (08:49)
[2021-12-12] MEDS: ENOXAPARIN 40 MG/0.4 ML SYRINGE SUB-Q (08:49)
[2021-12-12] MEDS: MONTELUKAST SODIUM 10 MG TABLET PO (08:49)
--- NOTE | 2021-12-12 12:24 | PM.DS ---
DS: Admitting Diagnosis Discharge Date December 12, 2021 Admitting Diagnosis Pneumonia DS: Discharge Diagnosis Discharge Diagnosis (1) Chest pain: Code(s): R07.9 - Chest pain, unspecified Status: Acute Assessment and Plan: Likely secondary to pneumonia, pain is pleuritic Now resolved on discharge (2) Pneumonia: Code(s): J18.9 - Pneumonia, unspecified organism Status: Acute Assessment and Plan: Patient was initially started on IV antibiotics. Had slow improvement the 1st 3 days. Antibiotics were switched to Levaquin, subsequently did well with improving symptoms and being afebrile for over 24 hr. Patient be discharged on p.o. Levaquin (3) Pulmonary emboli: Code(s): I26.99 - Other pulmonary embolism without acute cor pulmonale Status: Acute Assessment and Plan: PE not likely, not on anticoagulation (4) COPD (chronic obstructive pulmonary disease): Code(s): J44.9 - Chronic obstructive pulmonary disease, unspecified Status: Acute Assessment and Plan: Chronic. No wheeze on exam DS: Summary Hospital Course Hospital Course: See discharge planning diagnoses Time Spent with Patient Time attestation: Total time spent providing and/or coordinating discharge services: Exam Narrative: General: alert and oriented Psych: appropriate mood nad affect Eyes: PERRLA Neck: Trachea midline, no new lesions Skin: no changes Lungs: CTA Cardiac: Normal S1,S2, no MGR ABD: soft, nd, nt, nbs Ext: no new lesions, no cce Vasc: Pulses intact DS: Data Data Completed and Pending Labs on day of discharge: Labs from last 24 hours 12/12/21 12/12/21 05:49 05:49 WBC 13.1 H RBC 3.50 L Hgb 9.7 L Hct 29.4 L MCV 84.0 MCH 27.7 MCHC 33.0 RDW 15.0 H Plt Count 296 MPV 9.5 Sodium 143 Potassium 3.7 Chloride 110 H Carbon Dioxide 24 Anion Gap 9 BUN 22 H Creatinine 1.20 Estim Creat Clear Calc 57 Estimated GFR > 60 Glucose 103 Calcium 8.8 Preliminary micro results at discharge 12/11/21 08:15 Blood Culture - Preliminary Blood 12/11/21 08:19 Blood Culture - Preliminary Blood 12/08/21 09:28 Blood Culture - Preliminary Blood 12/08/21 09:28 Blood Culture - Preliminary Blood Discharge Plan Discharge Attending physician on discharge: Misael Cole Discharging Clinician: Misael Cole Patient Disposition: Home, Self-Care Activity: no preference Diet: as tolerated Patient Instructions: Antibiotic Form, Community Acquired Pneumonia (DC) Stand Alone Forms: General Discharge Information Follow-up/Referrals: Jose Rivera MD [Primary Care Provider] - Discharge Medications: New levofloxacin 750 mg tablet 750 mg PO DAILY 4 Days Qty: 4 0RF Continued albuterol sulfate 2.5 mg /3 mL (0.083 %) solution for nebulization 2.5 mg inhalation BID PRN (Reason: Shortness Of Breath Or Wheezing) amlodipine 10 mg tablet 10 mg PO QAM doxazosin 8 mg tablet 8 mg PO HS (DME) Easy Neb Compressor Nebulizer Device See Rx Instructions .ROUTE .MEDSUPPLY Qty: 1 Rx Instructions: As directed fluticasone propionate 50 mcg/actuation spray,suspension 1 spray NASAL DAILY PRN (Reason: Congestion) Rx Instructions: administer into each nostril sildenafil 100 mg tablet 100 mg PO DAILY PRN (Reason: Erectile Dysfunction) Rx Instructions: administer 30 minutes to 4 hours before activity montelukast [Singulair] 10 mg tablet 10 mg PO QAM ergocalciferol (vitamin D2) 1,250 mcg (50,000 unit) capsule 1,250 mcg PO WEEKLY Rx Instructions: THURSDAYS albuterol sulfate [Ventolin HFA] 90 mcg/actuation HFA aerosol inhaler 1 - 2 puff INHALATION Q4-6H PRN (Reason: shortness of breath or wheezing) 90 Days Qty: 25.5 1RF aspirin 81 mg Tablet 81 mg PO DAILY Trelegy Ellipta 100-62.5-25 mcg blister with device
== END 2021-12-12 13:12 | disposition home or self-care (01) | DRG 194 ==
LOC: ANHED 09:13 → ANHIMU 09:30 → ANH3MEDSUR 12-10 09:16 → ANHIMU 12-15 14:36
PROVIDERS: Emergency Medicine; Nurse Practitioner Adult Health; Admitting Provider Internal Medicine; Emergency Provider Emergency Medicine; PCP Family Medicine; Visit Provider Chiropractor
DX: J18.9 Pneumonia, unspecified organism (principal); J44.0 Chronic obstructive pulmonary disease with (acute) lower respiratory infection; Z20.822 Contact with and (suspected) exposure to COVID-19; N40.0 Benign prostatic hyperplasia without lower urinary tract symptoms; I12.9 Hypertensive chronic kidney disease with stage 1 through stage 4 chronic kidney disease, or unspecified chronic kidney disease; N18.9 Chronic kidney disease, unspecified; G47.30 Sleep apnea, unspecified; E66.9 Obesity, unspecified; Z68.32 Body mass index [BMI] 32.0-32.9, adult; Z79.82 Long term (current) use of aspirin; Z99.81 Dependence on supplemental oxygen; Z87.891 Personal history of nicotine dependence
CPT/HCPCS: 36415; 71046; 71275; 80048; 80053; 81001; 83605; 83735; 83880; 84484; 85025; 85027; 85380; 87040; 87070; 87086; 87088; 87205; 93005; 93970; 94640; 96361; 96365; 96372; 96375; 99285; A9270; C9803; G0378; J0456; J0696; J1650; J1956; J2270; J7040; Q9967; U0003; U0005

== ENCOUNTER 2022-05-17 09:49 | Outpatient (RCR) | payer MEDICARE, MEDICAID, SELFPAY ==
--- NOTE | 2022-05-17 10:55 | OTOPEVDC ---
Assessment and note entered by Pauline Barrett, OTR/L Thank you for referring Lee Yadiel Lacy to [facility].? An evaluation has been completed. No further treatment is needed. Evaluation Information Assessment Status Evaluation Diagnosis COPD Subjective Information Patient presents today for a fitting of a 4 wheeled scooter. Currently unable to utilize a manual wheelchair, cane/walker for functional mobility due to inability to safely ambulate household distances or propel wheelchair due to decreased endurance, increased shortness of breath , chronic use of supplemental oxygen. Reported Pain Level Pain Score 0: Self Report Assessment OT Clinical Summary Lee is unable to perform functional mobility safely and independently for household distances due to his current impairments of decreased endurance, diagnosis of COPD, chronic respiratory failure, increased shortness of breath with any ambulation. He is at risk for falls with decreased endurance which limites ability to safely perform functional mobility with a walker or cane. Patient demonstrates significant functional mobility limitations that impair their ability to safely participate in mobility-related activities of daily living (MRADL?s). These limitations cannot be sufficiently resolved by the use of an appropriated fitted cane, walker or manual wheelchair. Please see scanned w/c evaluation report for more details. This is to notify provider that Lee Yadiel Lacy participated in a manual mobility device evaluation today. Recommendations were made specific to patient's needs. Seating Assessment documentation has been completed for detailed information on required equipment. Please note that no further care plan will be developed on this account. Plan of Care OT Services Indicated No
== END 2022-05-17 15:59 | disposition home or self-care (01) ==
LOC: ANHOT 09:49
PROVIDERS: PCP Family Medicine; Visit Provider Family Medicine
DX: Z46.89 Encounter for fitting and adjustment of other specified devices (principal)
CPT/HCPCS: 97165

== ENCOUNTER 2022-07-21 13:38 | Outpatient (CLI) | payer MEDICARE, MEDICAID, SELFPAY ==
--- NOTE | ~2022-07-21 | CT_ITS ---
EXAMINATION: CT lung screening DATE: 07/21/2022 14:07 INDICATION: Lung cancer screening TECHNIQUE: Computed tomography (CT) of the chest was performed without intravenous contrast. Addition al 3D reconstructions utilizing coronal maximum intensity projection (MIP) were performed. Automated exposure control and iterative reconstruction technique were employed. The dose-length product was 27 0.20 mGy-cm. COMPARISON: 12/10/21 FINDINGS: Severe emphysema with mild biapical pleural-parenchymal scarring. There are scattered linear bands of discoid atelectasis/scarring. There is a 5-6 mm more nodular density along a band of atelectasis in the left upper lobe on series 4, image 39. There is additional atelectasis along the bilateral lung b ases. There are a few tiny calcified nodules in the right upper lobe consistent with old granulomatou s disease. No opacities suspicious for pneumonia. No pulmonary edema or pleural effusion. Heart size is normal. Atherosclerotic coronary artery calcification. No pericardial effusion. Fusiform ascending thoracic aortic aneurysm measuring up to 4.4 cm . Aortic arch and descending thoracic aorta is dilip l in caliber. No pathologically enlarged thoracic lymphadenopathy. There is a the common bile duct is dilated to 2.4 cm. There is unchanged dating of is minimal mediastinal reactive mild to mo derate intrahepatic biliary ductal dilation. The gallbladder is decompressed. Numerous bilateral kelly l cysts, few with small amount of rim calcification seen. The largest measures 7 cm the upper pole of the left kidney. 4 mm nonobstructing left renal stone. There are few small dystrophic pancreatic par enchymal calcific lesion suggesting sequela of chronic pancreatitis. Mild thoracic dextrocurvature wi th mild spondylosis. IMPRESSION: 1. Lung-RADS category 2: Benign appearance or behavior. Continue annual screening with noncontrast lo w-dose chest CT in 12 months. 2. Severe emphysema. 3. Chronic intra and extra hepatic biliary ductal dilation. Correlate with liver function tests and c onsider further evaluation with MRI/MRCP. 4. Numerous bilateral renal cysts suggesting polycystic kidney disease. 5. Nonobstructing 4 mm left renal stone. Reviewed, dictated and finalized at location A. 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 Lung-RADS category 2: Benign appearance or behavior. Continue annual screeni ng with noncontrast low-dose chest CT in 12 months. 2. Severe emphysema. 3. Chronic intra and extra hepatic biliary ductal dilation. Correlate with live r function tests and consider further evaluation with MRI/MRCP. 4. Numerous bilateral renal cysts suggesting polycystic kidney disease. 5. Nonobstructing 4 mm left renal stone.
== END 2022-07-21 13:39 | disposition home or self-care (01) ==
PROVIDERS: PCP Family Medicine; Visit Provider Physician Assistant
DX: Z12.2 Encounter for screening for malignant neoplasm of respiratory organs (principal); Z87.891 Personal history of nicotine dependence; J43.9 Emphysema, unspecified; N20.0 Calculus of kidney
CPT/HCPCS: 71271

== ENCOUNTER 2022-09-23 03:20 | Emergency (ER) | payer MEDICARE, MEDICAID, SELFPAY ==
[2022-09-23] VITALS (37 sets, daily range): BP systolic 112–151; BP diastolic 67–88; PULSE 77–107; RESP 12–27; TEMP 36.5; O2SAT 89–100
--- NOTE | ~2022-09-23 | CT_ITS ---
Clinical Indication: Dyspnea, abdominal pain CT Scan of the Chest, Abdomen, and Pelvis with Contrast: Technique: Contiguous sections were acquired throughout the chest, abdomen, and pelvis after intraven ous administration of 100 cc of Omnipaque 350. Dose reduction technique was used on this scan by uti lizing automated exposure control and iterative reconstruction technique. The dose-length product (DL P) was 1692.91 mGy-cm. COMPARISON: 07/21/2022 Findings: There is no evidence of any significant mediastinal, hilar or axillary lymphadenopathy. The mediastin al soft tissues appear normal. No pulmonary embolus. No aortic aneurysm or dissection. There is no evidence of pleural or pericardial effusion. Severe emphysema noted. Stable chronic scarring or atelectasis in the right middle lobe. Advanced intrahepatic and extrahepatic biliary dilatation is present, relatively unchanged since 11/04. The spleen, pancreas, gallbladder, and adrenal glands are within normal limits. Polycystic kid mitchell disease present, probable tiny nonobstructing bilateral renal stones. There are atherosclerotic c alcifications of the aorta. No lymphadenopathy. No bowel obstruction or bowel wall thickening. There is no evidence to suggest acute appendicitis. Urinary bladder is unremarkable. Prostate gland is enlarged. Impression: No pulmonary embolus. Severe emphysema with chronic stable scarring or atelectasis in the right middle lobe. Advanced intrahepatic biliary dilatation and common bile duct dilatation. Consider stricture at the d istal common bile duct. Correlate with any relevant clinical history an LFTs. Polycystic kidney disease and tiny bilateral nonobstructing renal stones, similar to prior exam. Enlarged prostate gland. Reviewed, dictated and finalized at location . Impression: No pulmonary embolus. Severe emphysema with chronic stable scarring or atelectasis in the right middl e lobe. Advanced intrahepatic biliary dilatation and common bile duct dilatation. Consi darci stricture at the distal common bile duct. Correlate with any relevant clini jorge history an LFTs. Polycystic kidney disease and tiny bilateral nonobstructing renal stones, simil ar to prior exam. Enlarged prostate gland.
--- NOTE | ~2022-09-23 | XR_ITS ---
Portable chest x-ray Comparison: 12/08/2021 Clinical History: Dyspnea Findings: There is diffuse interstitial prominence with probable COPD pattern of the lungs. Cardiom ediastinal silhouette is stable. Bones and soft tissues are unremarkable. Impression: COPD. Diffuse interstitial prominence is probably related to COPD. Consider mild superimposed interstitial edema. Reviewed, dictated and finalized at [facility]. Impression: COPD. Diffuse interstitial prominence is probably related to COPD. Consider mild supe rimposed interstitial edema.
--- NOTE | 2022-09-23 03:28 | ECG_ITS ---
Measurements Intervals [place] Rate: 100 P: 55 OR: 152 QRS: 30 QRSD: 92 T: 41 QT: 335 QTc: 432 Interpretive Statements SINUS TACHYCARDIA POSSIBLE INFERIOR MYOCARDIAL INFARCTION , PROBABLY OLD ABNORMAL ECG COMPARED TO ECG 12/08/2021 04:48:46 NO SIGNIFICANT CHANGES Electronically Signed On 09-24-2022 16:12:49 CDT by Jeremiah Francis M.D.
[2022-09-23 04:15] LABS: Basophils Percent Auto 0.4 % (0.2-1.2); Eosinophils Absolute Auto 0.4 K/mm3 (0-0.3); Eosinophils Percent Auto 3.8 % (0-4.4); Hematocrit 38.8 % (42.0-52.0); Hemoglobin 12.3 g/dL (14.0-18.0); Immature Granulocyte Absolute 0.04 K/mm3 (0.00-0.031); Immature Granulocyte Percent A 0.4 % (0-0.5); Lymphocytes Absolute Auto 1.16 K/mm3 (0.9-3.2); Lymphocytes Percent Auto 11.8 % (18.3-44.2); Mean Corpuscular HGB Conc 31.7 g/dl (32-36); Mean Corpuscular Volume 88.2 fl (80-100); Mean Platelet Volume 9.1 fl (7.4-10.4); Monocytes Absolute Auto 0.8 K/mm3 (0.1-0.6); Monocytes Percent Auto 8.1 % (2.6-8.5); Neutrophils Absolute Auto 7.4 K/mm3 (1.3-6.7); Neutrophils Percent Auto 75.5 % (45.5-73.1); Platelet Count Result 228 k/mm3 (150-375); Red Cell Distribution Width 14.6 % (11.5-14.5); White Blood Count 9.9 K/mm3 (4.5-10.0)
[2022-09-23] MEDS: NITROGLYCERIN SL 0.4 MG TABLET SUBLINGUAL (04:16)
[2022-09-23 04:17] LABS: Appearance Urine Clear (Clear); Bilirubin Urine Negative (Negative); Blood Urine Negative (Negative); Color Urine Yellow (Yellow); Glucose Urine UA Negative (Negative); Ketones Urine Negative (Negative); Leukocyte Esterase Ur Negative LEU/UL (Negative); Nitrate Urine Negative (Negative); Protein Urine Negative (Negative); Urobilinogen Urine 0.2 mg/dL (<2.0); pH Urine 7.5 (5.0-9.0)
[2022-09-23 04:25] LABS: Lactic Acid Reflex 1.3 mmol/L (0.7-2.0); Prothrombin Time 12.5 Seconds (11.1-14.7)
[2022-09-23 04:26] LABS: Partial Thromboplastin Time 32.7 SECONDS (22.3-36.8)
[2022-09-23 04:27] LABS: Alanine Aminotransferase 37 U/L (6-50); Albumin Level 4.6 g/dL (3.5-5.1); Alkaline Phosphatase 121 U/L (38-126); Anion Gap 8 mmol/L (8-16); Aspartate Amino Transferase 29 U/L (17-59); Bilirubin,Total 0.5 mg/dL (0.2-1.3); Blood Urea Nitrogen 18 mg/dL (9-20); Calcium 9.2 mg/dL (8.4-10.2); Carbon Dioxide 27 mmol/L (22-30); Chloride 106 mmol/L (98-107); Estimated CRCL calculation 58 ml/min; Estimated Glomerular Filt Rate > 60; Glucose 114 mg/dL (65-110); Potassium 4.1 mmol/L (3.4-5.0); Sodium 141 mmol/L (137-145)
[2022-09-23 04:33] LABS: Add Urine Microscopic? NO
[2022-09-23 04:35] LABS: NT Pro B Type Natriuretic Pept < 20 pg/mL (19.9-100)
[2022-09-23] MEDS: IPRATROPIUM BR 0.02% INH SOLN 0.5 MG/2.5 ML VIAL INHALATION (04:36)
[2022-09-23] MEDS: LEVALBUTEROL NEB 1.25 MG/3 ML INHALATION (04:36)
[2022-09-23 04:38] LABS: Troponin I < 0.012 ng/mL (0.000-0.034)
--- NOTE | 2022-09-23 04:56 | PC.NURSE ---
Crisis evaluated pt and is sending pt home with safety plan.
[2022-09-23 05:15] LABS: Procalcitonin 0.1 ng/mL
[2022-09-23 05:15] LABS: Influenza A QL RT-PCR Negative (Negative); Influenza B QL RT-PCR Negative (Negative); RSV RNA, RT-PCR Negative (Negative); SARS-CoV-2 RNA PCR Negative
--- NOTE | 2022-09-23 05:29 | ED.GENADULT ---
HPI - General Adult General Chief complaint: Shortness of Breath/Dyspnea <Henri Dykes MD - Last Filed: 09/23/22 05:31> Stated complaint: short of breath <Henri Dykes MD - Last Filed: 09/23/22 05:31> Time Seen by Provider: 09/23/22 03:33 <Henri Dykes MD - Last Filed: 09/23/22 05:31> History of Present Illness HPI narrative: Patient is a 71-year-old gentleman with prior history of COPD the presents the emergency department with chief complaint of shortness of breath. Patient reports that last night he got up and went to the bathroom and got extremely short of breath. The patient reports he had tightness in his chest patient reports that he got diaphoretic with this and reports that he felt extremely short of breath. Patient states that the tightness in his chest was not improved by anything patient denies sharp pain denied radiation of the discomfort. Patient does report that he has had a prior stress test before in the past and reports that he has had no blockages in his heart. <Henri Dykes MD - Last Filed: 09/23/22 05:31> Related Data Home medications: Home Medications Medication Instructions Recorded Confirmed amlodipine 10 mg tablet 10 mg PO QAM 03/07/20 04/09/22 doxazosin 8 mg tablet 8 mg PO HS 03/07/20 04/09/22 ergocalciferol (vitamin D2) 1,250 1,250 mcg PO WEEKLY 03/07/20 04/09/22 mcg (50,000 unit) capsule fluticasone propionate 50 1 spray intranasal DAILY PRN 03/07/20 04/09/22 mcg/actuation nasal Congestion spray,suspension nebulizer and compressor (Easy Neb #1 ea 03/07/20 04/09/22 Compressor Nebulizer) sildenafil 100 mg tablet 100 mg PO DAILY PRN Erectile 03/07/20 04/09/22 Dysfunction aspirin 81 mg tablet 81 mg PO DAILY 08/04/20 04/09/22 <Henri Dykes MD - Last Filed: 09/23/22 05:31> Allergies/adverse reactions: Allergies Allergy/AdvReac Type Severity Reaction Status Date / Time lisinopril Allergy Severe Swelling Verified 09/23/22 03:33 Penicillins Allergy Intermediate Hives / Verified 09/23/22 03:33 Red Face Sulfa (Sulfonamide Allergy Intermediate Hives / Verified 09/23/22 03:33 Antibiotics) Red Face <Henri Dykes MD - Last Filed: 09/23/22 05:31> Review of Systems Review of Systems: A 10 system review of systems was completed on the patient and is negative except for what is stated in the HPI. Nursing and ancillary documentation was reviewed. <Henri Dykes MD - Last Filed: 09/23/22 05:31> [facility] Past Medical History Medical History: Medical History Asbestos exposure BPH (benign prostatic hyperplasia) Chronic kidney disease Chronic viral hepatitis C COPD (chronic obstructive pulmonary disease) Dependence on supplemental oxygen Elevated PSA Environmental allergies H/O nicotine dependence HTN (hypertension) Nocturnal hypoxemia Obesity Sleep apnea Wears glasses <Henri Dykes MD - Last Filed: 09/23/22 05:31> Surgical History Surgical History: Surgical History History of ankle surgery 2016 History of back surgery <Henri Dykes MD - Last Filed: 09/23/22 05:31> Family History Family History: Family History Father Cancer Pancreatic cancer Mother Asthma Cerebrovascular accident Sibling Diabetes mellitus Hypertension Heart disease Cerebrovascular accident Cancer of colon Other Lung disease <Henri Dykes MD - Last Filed: 09/23/22 05:31> Social History Social History: Social History Smoking packs per day: 1 Smoking cigarettes per day: 20.0 Years smoked: 50 Smoking pack-years: 50.00 Smoking status: Former smoker To
[2022-09-23 07:55] LABS: Troponin I < 0.012 ng/mL (0.000-0.034)
[2022-09-23] MEDS: methylPREDNISolone SOD SUCC 125 MG VIAL IV PUSH (08:01)
[2022-09-23] MEDS: ALBUTEROL SULFATE NEB 2.5 MG/3 ML INH 10 MG INHALATION (08:15)
== END 2022-09-23 09:30 | disposition home or self-care (01) ==
PROVIDERS: Emergency Medicine; Emergency Provider Emergency Medicine; PCP Family Medicine
DX: J44.1 Chronic obstructive pulmonary disease with (acute) exacerbation (principal); Z20.822 Contact with and (suspected) exposure to COVID-19; I12.9 Hypertensive chronic kidney disease with stage 1 through stage 4 chronic kidney disease, or unspecified chronic kidney disease; N18.9 Chronic kidney disease, unspecified; G47.30 Sleep apnea, unspecified; N40.0 Benign prostatic hyperplasia without lower urinary tract symptoms; E66.9 Obesity, unspecified; Z68.33 Body mass index [BMI] 33.0-33.9, adult; Z99.81 Dependence on supplemental oxygen; Z87.891 Personal history of nicotine dependence; R00.0 Tachycardia, unspecified; R94.31 Abnormal electrocardiogram [ECG] [EKG]; Q61.3 Polycystic kidney, unspecified; N20.0 Calculus of kidney
CPT/HCPCS: 36415; 71045; 71275; 74177; 80053; 81003; 83605; 83735; 83880; 84145; 84484; 85025; 85610; 85730; 87637; 93005; 94640; 99284; A9270; J2930; Q9967

== ENCOUNTER 2022-11-10 08:03 | Outpatient (CLI) | payer MEDICARE, MEDICAID, SELFPAY ==
--- NOTE | ~2022-11-10 | NM_ITS ---
EXAMINATION: NM ezekiel stress w perfusion DATE: 11/10/2022 10:19 INDICATION: Chest pain TECHNIQUE: Rest images were obtained following intravenous administration of 9.2 mCi Tc99m tetrofosmi n (Myoview). The patient was infused intravenously with Lexiscan (Regadenoson). Then, 27.3 mCi Tc99m tetrofosmin (Myoview) was administered intravenously, and stress images were obtained. Data was recon structed into short axis and horizontal and vertical long axis SPECT images. Gated SPECT images were also obtained. COMPARISON: None. FINDINGS: Moderate to severe fixed perfusion defect on both stress and rest images involving the apic al inferior, mid inferior and basilar inferior segments with partial extension into the adjacent mid inferolateral segment consistent with infarct. No reversible perfusion defects to suggest ischemia. There is normal left ventricular chamber size, wall motion and ejection fraction. Left ventricular e jection fraction measures 64%. IMPRESSION: 1. Moderate-sized moderate to severe infarct involving the apical to basilar inferior wall and extend ing partially into the mid inferolateral segment. No reversible ischemia. 2. Left ventricular ejection fraction measuring 64%. Reviewed, dictated and finalized at location B. IMPRESSION: 1. Moderate-sized moderate to severe infarct involving the apical to basilar in ferior wall and extending partially into the mid inferolateral segment. No reve rsible ischemia. 2. Left ventricular ejection fraction measuring 64%.
--- NOTE | 2022-11-10 08:15 | EST_ITS ---
Patient Info Name: Lee Cotto Age: 71 years : 1950 Gender: Male Ht: 68 in Wt: 214 lbs BSA: 2.19 m2 HR: 66 bpm BP: 123 / 84 mmHg Heart Rhythm: Sinus Rhythm Exam Date: 11/10/2022 9:00 AM Exam Location: [facility] Stress Patient Status: Outpatient Admit Date: 11/10/2022 Staff Ordering Physician: Melba Coates PA-C Attending Provider: Melba Coates PA-C Exercise Technologist: Amie Harris CT Exercise Physician: Cliff Courtney DO Exam Type: CA stress ezekiel w NM Study Info Indications R07.89 - Other chest pain A regadenoson stress test was performed. Summary 1. 1. Negative lexiscan stress test for ischemic ST changes by ECG criteria. 2. 2. Stable hemodynamics throughout the test. 3. 3. Nuclear scan to follow and will be reported separately. Please correlate with it. 4. 4. Patient informed of the above results. Protocol: Lexiscan Stress ECG Details Stage: REST Duration (min): 2 min : 26 sec HR (bpm): 65 SBP (mmHg): 123 DBP (mmHg): 84 Stage: REST Duration (min): 7 min : 15 sec HR (bpm): 67 SBP (mmHg): 123 DBP (mmHg): 84 Stage: STAGE 1 Duration (min): 1 min : 0 sec HR (bpm): 88 SBP (mmHg): 125 DBP (mmHg): 63 Stage: RECOVERY Duration (min): 1 min : 0 sec HR (bpm): 91 SBP (mmHg): 125 DBP (mmHg): 63 Stage: RECOVERY Duration (min): 2 min : 0 sec HR (bpm): 88 SBP (mmHg): 125 DBP (mmHg): 63 Stage: RECOVERY Duration (min): 3 min : 0 sec HR (bpm): 86 SBP (mmHg): 110 DBP (mmHg): 64 Stage: RECOVERY Duration (min): 3 min : 41 sec HR (bpm): 84 SBP (mmHg): 110 DBP (mmHg): 64 Rest HR: 67 bpm Peak HR: 93 bpm Rest Sys BP: 123 mmHg Peak Sys BP: 125 mmHg Max Pred HR: 149 bpm % Max Pred HR: 62 % Target HR: 127 bpm Max RPP: 11,625 bpm*mmHg Termination Reason: Completed protocol Cardiac Symptoms: Shortness of breath Total Time: 1 min : 0 sec Rest Parker BP: 84 mmHg Peak Parker BP: 63 mmHg Total Dose: 0.4 mg Resting ECG Sinus rhythm. Stress ECG No ST changes. Arrhythmias None. Report Signatures
== END 2022-11-10 08:04 | disposition home or self-care (01) ==
PROVIDERS: PCP Family Medicine; Visit Provider Physician Assistant
DX: R07.9 Chest pain, unspecified (principal)
CPT/HCPCS: 78452; 93017; A9502; J2785

== ENCOUNTER 2022-11-30 13:22 | Outpatient (CLI) | payer MEDICARE, MEDICAID, SELFPAY ==
--- NOTE | 2022-11-30 13:37 | ECHO_ITS ---
Patient Info Name: Lee Cotto Age: 71 years : 1950 Gender: Male Ht: 69 in Wt: 314 lbs BSA: 2.71 m2 HR: 91 bpm BP: 136 / 79 mmHg Heart Rhythm: Sinus Rhythm Technical Quality: Fair Exam Date: 11/30/2022 1:53 PM Exam Location: [facility] Patient Status: Outpatient Admit Date: 11/30/2022 Staff Ordering Physician: Cliff Courtney DO Community Health Worker: Zachariah Rock RDCS Attending Provider: Cliff Courtney DO Referring Physician: Sherwin SCHAFFER; Exam Type: CA echo doppler color flow Study Info Indications - other form of dyspnea Complete two-dimensional, color flow and Doppler transthoracic echocardiogram is performed. Summary 1. Complete two-dimensional, color flow and Doppler transthoracic echocardiogram is performed. 2. Left ventricular chamber dimension is normal. 3. Left ventricular systolic function is normal, estimated at 60-65%. 4. The left ventricular diastolic function is grade I diastolic dysfunction. 5. E/e' 13 is mildly elevated. 6. There is mild aortic valve sclerosis. 7. No pulmonary hypertension, estimated pulmonary arterial systolic pressure is 27 mmHg. Left Ventricle E/e' 13 is mildly elevated. Left ventricular chamber dimension is normal. Left ventricular systolic function is normal, estimated at 60-65%. The left ventricular diastolic function is grade I diastolic dysfunction. Right Ventricle Right ventricular systolic function is normal and with normal TAPSE 3.3 cm. Right ventricular chamber dimension is normal. Left Atria Left atrial chamber dimension is normal. Right Atria Right atrial chamber dimension is normal. Aortic Valve The aortic valve is trileaflet. There is mild aortic valve sclerosis. There is no aortic valve stenosis. There is no aortic valve regurgitation. Pulmonic Valve There is no pulmonic regurgitation. Mitral Valve There is no mitral valve stenosis. There is no mitral valve regurgitation. Tricuspid Valve There is no tricuspid valve regurgitation. No pulmonary hypertension, estimated pulmonary arterial systolic pressure is 27 mmHg. Pericardium/Pleural There is no pericardial effusion. Inferior Vena Cava Normal inferior vena cava with >50% collapse upon inspiration consistent with normal right atrial pressure, 5 mmHg. Aorta The aortic root size at the sinus of Valsalva is normal. Left Ventricular Outflow Tract Name Value Normal LVOT 2D LVOT Diameter 2.1 cm LVOT Doppler LVOT Peak Gradient 5 mmHg LVOT Mean Gradient 2 mmHg LVOT VTI 19 cm LVOT VTI/AV VTI Ratio 0.9 LVOT Stroke Volume 69 ml LVOT CO 5.3 l/min LVOT CI 1.9 l/min/m2 Pulmonic Valve Name Value Normal RVOT Doppler RVOT Peak Gradient 1 mmHg PV Doppler
== END 2022-11-30 13:23 | disposition home or self-care (01) ==
PROVIDERS: PCP Family Medicine; Visit Provider Internal Medicine Cardiovascular Disease
DX: R06.09 Other forms of dyspnea (principal)
CPT/HCPCS: 93306

== ENCOUNTER 2023-01-27 18:42 | Inpatient (IN) | payer MEDICARE, MEDICAID, SELFPAY ==
--- NOTE | ~2023-01-27 | US_ITS ---
EXAMINATION: US abdomen limited DATE: 01/27/2023 21:46 INDICATION: Abdominal distention, frequent hiccups elevated bi TECHNIQUE: Multiple grayscale and Doppler ultrasound images of limited portions of the abdomen were o btained. COMPARISON: CT abdomen and pelvis, same date. FINDINGS: Pancreas is poorly visualized. Intrahepatic bile duct dilation. Normal hepatopetal flow in the main portal vein. Nondistended gallbladder. Irregular somewhat hypoechoic focus along the gallbla dder wall near the fundus measuring up to 1.2 cm. The common bile duct measures 31 mm mm. There was n o sonographic Cowart sign. IMPRESSION: Intra and extrahepatic bile duct dilation. 1.2 cm gallbladder wall lesion, likely gallbladder polyp. Recommend surgical referral for possible ch olecystectomy. Reviewed, dictated and finalized at location K. IMPRESSION: Intra and extrahepatic bile duct dilation. 1.2 cm gallbladder wall lesion, likely gallbladder polyp. Recommend surgical re ferral for possible cholecystectomy.
--- NOTE | ~2023-01-27 | CT_ITS ---
EXAMINATION: CT abdomen pelvis w con DATE: 01/27/2023 21:02 INDICATION: Abdominal pain, hiccups, elevated bilirubin TECHNIQUE: Computed tomography (CT) of the abdomen and pelvis was performed with 100 mL Omnipaque-350 intravenous contrast. Automated exposure control and iterative reconstruction technique were employe d. The dose-length product was 1199.36 mGy-cm. COMPARISON: 09/23/2022. FINDINGS: Lower thorax: Senescent changes. Bilateral lower lung scarring and atelectasis. Emphysematous change. Liver: Normal. Biliary/Gallbladder: Gallbladder is collapsed. Marked and increased intrahepatic and extra hepatic bi le duct dilation Pancreas: Pancreatic atrophy. Spleen: Normal. Adrenals:No mass. Kidneys: Innumerable bilateral renal cysts. No definite suspicious mass. No hydronephrosis. Scattered bilateral nonobstructing parenchymal and/or cyst wall calcifications. GI tract: Small hiatal hernia. Mild distal esophageal and gastric wall edema No small or large bowel dilation. Appendix not visualized. Mesentery/Peritoneum: No ascites, mass, or free air. Retroperitoneum: No mass. Atherosclerotic abdominal aortic and/or arterial calcifications. Pelvis: Prostatomegaly with calcifications. Normal urinary bladder.. Soft Tissues: Uncomplicated appearing small fat and small bowel containing umbilical hernia. Uncompli cated appearing small fat-containing left inguinal hernia Bones: No acute osseous finding. IMPRESSION: Mild esophagitis/gastritis. Severe intra and extra hepatic bile duct dilation, increased since the prior examination. No obstruct ing mass or stone detected. Reviewed, dictated and finalized at location K. IMPRESSION: Mild esophagitis/gastritis. Severe intra and extra hepatic bile duct dilation, increased since the prior ex amination. No obstructing mass or stone detected.
--- NOTE | ~2023-01-27 | XR_ITS ---
EXAMINATION: XR ERCP DATE: 01/31/2023 12:25 INDICATION: Attempted ERCP TECHNIQUE: No intraoperative fluoroscopic images are obtained. Total fluoroscopic time was 60.2 secon ds. COMPARISON: None. FINDINGS: Fluoroscopy provided for ERCP with no image obtained. Please refer to procedure note for fu ll details. IMPRESSION: 1. Please refer to the ERCP procedure note for additional details. Reviewed, dictated and finalized at location A.
--- NOTE | ~2023-01-27 | MR_ITS ---
EXAMINATION: MR MRCP wo/w con/w 3D wo ind DATE: 01/28/2023 14:10 INDICATION: Abnormal liver function tests. Biliary duct dilatation. TECHNIQUE: Magnetic resonance imaging (MRI) of the abdomen was performed without and with 19 mL Multi Sonia intravenous contrast. Sequences included coronal T2-weighted FS FSE, coronal T2-weighted FSE, a xial T1-weighted LAVA, coronal FS FIESTA, axial dual-echo T1-weighted SPGR, coronal lava-FLEX, sagitt al T2-weighted FSE, axial T2-weighted FSE, and axial DWI. Thick-slab T2-weighted FSE images were obta ined for magnetic resonance cholangiopancreatography (MRCP). Maximum intensity projection 3-D reconst ructions of the volumetric data were created by the technologist. Postcontrast sequences included cor onal LAVA-flex and time course of axial T1-weighted LAVA. COMPARISON: CT abdomen and pelvis 11/27/2022, MRCP 11/15/2016, ultrasound 01/27/2023 FINDINGS: ABDOMEN MRI: There is mild atelectasis in the lungs. There is severe intrahepatic biliary duct dilata tion. The gallbladder is contracted. The spleen is normal. There are cysts in the pancreas measuring up to 8 mm, likely benign. The adrenal glands are normal. There are numerous cysts in the kidneys av suring up to 7.9 cm on the left. There is an umbilical hernia containing nonobstructed small bowel. T here is trace pelvic ascites. There are no pathologically enlarged lymph nodes. There are changes of anterior fusion procedure at L5-S1. ABDOMEN MRCP: The common duct is dilated to 2.8 cm. No choledocholithiasis. IMPRESSION: 1. Severe intrahepatic and extrahepatic biliary duct dilatation, worsened from 11/15/2016. No choledoch olithiasis or obstructing mass. 2. Polycystic kidney disease. 3. Umbilical hernia containing nonobstructed small bowel. Reviewed, dictated and finalized at location A. IMPRESSION: 1. Severe intrahepatic and extrahepatic biliary duct dilatation, worsened from 11/15/2016. No choledocholithiasis or obstructing mass. 2. Polycystic kidney disease. 3. Umbilical hernia containing nonobstructed small bowel.
[2023-01-27 19:12] VITALS: BP 140/79; PULSE 87; RESP 16; TEMP 36.8; O2SAT 98
[2023-01-27 19:29] LABS: Basophils Percent Auto 0.3 % (0.2-1.2); Eosinophils Absolute Auto 0.2 K/mm3 (0-0.3); Eosinophils Percent Auto 2.7 % (0-4.4); Hematocrit 34.7 % (42.0-52.0); Immature Granulocyte Absolute 0.13 K/mm3 (0.00-0.031); Immature Granulocyte Percent A 1.5 % (0-0.5); Lymphocytes Absolute Auto 1.21 K/mm3 (0.9-3.2); Lymphocytes Percent Auto 13.8 % (18.3-44.2); Mean Corpuscular HGB Conc 31.7 g/dl (32-36); Mean Corpuscular Hemoglobin 28.1 pg (26-34); Mean Corpuscular Volume 88.7 fl (80-100); Mean Platelet Volume 9.8 fl (7.4-10.4); Monocytes Absolute Auto 1.2 K/mm3 (0.1-0.6); Monocytes Percent Auto 13.9 % (2.6-8.5); Neutrophils Percent Auto 67.8 % (45.5-73.1); Platelet Count Result 182 k/mm3 (150-375); Red Blood Count 3.91 M/mm3 (4.6-6.20); Red Cell Distribution Width 15.9 % (11.5-14.5); White Blood Count 8.8 K/mm3 (4.5-10.0)
[2023-01-27 19:38] LABS: Alanine Aminotransferase 142 U/L (6-50); Albumin Level 3.9 g/dL (3.5-5.1); Alkaline Phosphatase 173 U/L (38-126); Anion Gap 5 mmol/L (8-16); Aspartate Amino Transferase 57 U/L (17-59); Bilirubin,Total 7.7 mg/dL (0.2-1.3); Blood Urea Nitrogen 16 mg/dL (9-20); Calcium 8.9 mg/dL (8.4-10.2); Carbon Dioxide 23 mmol/L (22-30); Chloride 108 mmol/L (98-107); Estimated CRCL calculation 48 ml/min; Estimated Glomerular Filt Rate 60; Glucose 95 mg/dL (65-110); Lipase 140 U/L (23-300); Potassium 4.3 mmol/L (3.4-5.0); Sodium 136 mmol/L (137-145)
[2023-01-27 19:56] LABS: Appearance Urine Clear (Clear); Bacteria Urine None Seen /hpf; Bilirubin Urine 3+ (Negative); Blood Urine Trace (Negative); Color Urine Dark Yellow (Yellow); Glucose Urine UA Negative (Negative); Ketones Urine Negative (Negative); Leukocyte Esterase Ur 1+ LEU/UL (Negative); Need Manual Microscopic Reviewed; Nitrate Urine Positive (Negative); Non Pathogenic Casts 0-2; Protein Urine 1+ mg/dL (Negative); RBC Urine 0-2 /hpf (0-2); Squamous Epithelial Cell Urine None seen /hpf (Few); WBC Urine 0-5 /hpf; pH Urine 5.5 (5.0-9.0)
[2023-01-27 19:58] LABS: Add Urine Microscopic? YES
[2023-01-27 20:16] VITALS: BP 130/96; PULSE 77; RESP 15; O2SAT 98
--- NOTE | 2023-01-27 20:33 | ED.GENADULT ---
HPI - General Adult General Chief complaint: Recheck/Abnormal Lab/Rx Stated complaint: BILIRUBIN OF 7.9 Time Seen by Provider: 01/27/23 20:19 History of Present Illness HPI narrative: Patient is a 72-year-old gentleman who presents the emergency department with chief complaint of elevated bilirubin patient reports that he recently noticed that he started having a generalized malaise feeling and reports that he saw his primary doctor and had blood work done. They found his bilirubin to be significantly elevated and the patient reports that he still has his gallbladder also reports prior history of hepatitis C but has been treated for that patient states that she is not having shortness of breath or chest pain Related Data Home Medications Medication Instructions Recorded Confirmed amlodipine 10 mg tablet 10 mg PO QAM 03/07/20 01/28/23 doxazosin 8 mg tablet 8 mg PO HS 03/07/20 01/28/23 ergocalciferol (vitamin D2) 1,250 1,250 mcg PO WEEKLY 03/07/20 01/28/23 mcg (50,000 unit) capsule fluticasone propionate 50 1 spray intranasal DAILY PRN 03/07/20 01/28/23 mcg/actuation nasal Congestion spray,suspension nebulizer and compressor (Easy Neb #1 ea 03/07/20 01/28/23 Compressor Nebulizer) sildenafil 100 mg tablet 100 mg PO DAILY PRN Erectile 03/07/20 01/28/23 Dysfunction aspirin 81 mg tablet 81 mg PO DAILY 08/04/20 01/28/23 baclofen 10 mg tablet 10 mg PO TID 01/28/23 01/28/23 metoprolol tartrate 25 mg tablet 25 mg PO BID 01/28/23 01/28/23 omeprazole 40 mg capsule,delayed 40 mg PO DAILY 01/28/23 01/28/23 release Allergies Allergy/AdvReac Type Severity Reaction Status Date / Time lisinopril Allergy Severe Swelling Verified 01/28/23 00:37 Penicillins Allergy Intermediate Hives / Verified 01/28/23 00:37 Red Face Sulfa (Sulfonamide Allergy Intermediate Hives / Verified 01/28/23 00:37 Antibiotics) Red Face Review of Systems Review of Systems: A 10 system review of systems was completed on the patient and is negative except for what is stated in the HPI. Nursing and ancillary documentation was reviewed. [facility] Past Medical History Medical History Asbestos exposure BPH (benign prostatic hyperplasia) Chronic kidney disease Chronic viral hepatitis C COPD (chronic obstructive pulmonary disease) Dependence on supplemental oxygen Elevated PSA Environmental allergies H/O nicotine dependence HTN (hypertension) Nocturnal hypoxemia Obesity Sleep apnea Wears glasses Surgical History Surgical History History of ankle surgery 2016 History of back surgery Family History Family History Father Cancer Pancreatic cancer Mother Asthma Cerebrovascular accident Sibling Diabetes mellitus Hypertension Heart disease Cerebrovascular accident Cancer of colon Other Lung disease Social History Social History Smoking packs per day: 1 Smoking cigarettes per day: 20.0 Years smoked: 50 Smoking pack-years: 50.00 Smoking status: Former smoker Tobacco type: cigarettes Smoking end date: 06/13/17 Alcohol intake: former Drinks per week: 1 Alcohol use details: SCIAL DRINKER Substance use: never Substance use type: does not use Lack of Transportation: No Lack of Food: Never True Current Housing: I Have Housing Concerned About Future Housing: No Difficulty Paying Gas/Electric Bills: No Difficulty Paying for Meds: No Currently Unemployed: No Education: Associate Degree Difficulty w/ Childcare or Family Care: No Living arrangements: alone Occupation/Education: retired Gender identity (if verbalized by the patient): Male Spiritual care concerns: No Course Vital Signs Vital signs: Vital Signs Temperature 36.8 C
[2023-01-27 22:30] VITALS: BP 142/68; PULSE 78; RESP 15; O2SAT 98
--- NOTE | 2023-01-27 22:42 | ECG_ITS ---
Measurements Intervals [place] Rate: 85 P: 51 PA: 152 QRS: 29 QRSD: 87 T: 60 QT: 355 QTc: 423 Interpretive Statements SINUS RHYTHM WITH OCCASIONAL VENTRICULAR PREMATURE COMPLEXES OTHERWISE NORMAL ECG COMPARED TO ECG 09/23/2022 03:27:31 VERY SMALL INFERIOR Q-WAVES ARE NO LONGER SEEN SLIGHTLY DIFFERENT LEAD POSITION Electronically Signed On 01-28-2023 7:43:26 CDT by Misael Luna M.D.
[2023-01-27 23:30] VITALS: BP 148/70; PULSE 74; RESP 15; O2SAT 98
[2023-01-28] VITALS (9 sets, daily range): BP systolic 137–162; BP diastolic 69–86; PULSE 70–91; RESP 16–21; TEMP 36.6–36.9; O2SAT 96–100; BMI 32.2
--- NOTE | 2023-01-28 00:30 | ADMGEN ---
This patient, Lee Cotto Sr., was admitted to Medical Room 258-01. Patient/family oriented to hospital policies and general routines including ID bracelet, bed and alarms, visiting hours, pain management, procedures, bathroom and other care routines, personal items, smoking policy, room service/diet, and visiting hours. Information on how to activate the Rapid Response Team has been discussed. Patient/Family are encouraged to report perceived risks to care and to ask questions if they do not understand what they are told or what they should do.
[2023-01-28] MEDS: SODIUM CHLORIDE 0.9% IV 1,000 ML 125 ML IV CONT (00:39)
[2023-01-28] MEDS: chlorproMAZINE HCL 25 MG TABLET PO (01:10)
--- NOTE | 2023-01-28 04:48 | PM.IMHP ---
H&P: HPI History of Present Illness Date/Time: 01/28/23 04:48 Chief Complaint: Sent by PCP for abdominal distension, elevated bilirubin, dark urine, worsening jaundice Narrative: This is a 72-year-old man with significant medical history of COPD, was presenting with a progressive history of 1 week of hiccups, bloating, dark urine, and abdominal distension. The patient's initial presentation began with hiccups on Tuesday. On Tuesday he began feeling bloated and started having dark gold color urine. The patient also mentions abdominal pressure at rest. On Tuesday he called his donor services team leader as well as his PCP . He went to see his PCP On Tuesday and got labs done there. His PCP called him and told him his total bilirubin was 7.9. His PCP told him to go to [facility] to get a medical evaluation there. The PCP also scheduled CT abdomen pelvis and ultrasound of the abdomen in case the patient was not able to get these tests done in the ER. The patient tells me that since Tuesday his symptoms have not changed. They are not worse today then they were on Tuesday. In the ER his CT abdomen pelvis with IV contrast shows Severe intra and extra hepatic bile duct dilation, increased since the prior examination. No obstructing mass or stone detected. His abdominal ultrasound shows Irregular somewhat hypoechoic focus along the gallbladder wall near the fundus measuring up to 1.2 cm. The common bile duct measures 31 mm mm. There was no sonographic Cowart sign. His T bili in the ER was noted to be 7.7. His ALT was elevated 142. His alk-phos was elevated to 173. The patient has had multiple CT scans in the past for pulmonary disease. His CT scan on September 23, [address] scan of October 2021 show dilated intra and extrahepatic bile ducts and recommended MRCP evaluation but were not able to identify the source of this dilation. The patient has a relevant family GI history. His dad of pancreatic cancer at 79 years old. His brother has colon cancer. Here is his other hx 11/10/[address] Courtney's note: No ischemia. 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 EF 64%. The patient is on supplemental oxygen of 2 L at rest and 3 L with exertion. He reports no issues with worsening oxygen requirements. He uses a number of inhalers for COPD. These can be referenced in his charts. He does not have worsening COPD exacerbation. He has a history of G6PD deficiency and was also exposed to asbestos in the [place] many years ago. He has had recurrent ER visits for COPD exacerbation. He has a history of polycystic kidney disease as well. His prior CT scans show severe emphysema, stable chronic scarring in the right middle lobe. He has a few tiny calcified nodules in the right upper lobe consistent with old granulomatous disease. Review of Systems Review of Systems: Negative except for that mentioned in the [facility] Past Medical History Medical History Asbestos exposure BPH (benign prostatic hyperplasia) Chronic kidney disease Chronic viral hepatitis C COPD (chronic obstructive pulmonary disease) Dependence on supplemental oxygen Elevated PSA Environmental allergies H/O nicotine dependence HTN (hypertension) Nocturnal hypoxemia Obesity Sleep apnea Wears glasses Surgical History Surgical History History of ankle surgery 2016 History of back surgery Family History Family History Father Cancer Pancreatic cancer Mother Asthma Cerebrovascular accident Sibling Diabetes mellitus Hypertension Heart disease Cerebrovascular accident Cancer of colon Other Lung disease Social History Social History Smoking packs per day: 1
[2023-01-28 05:05] LABS: Basophils Percent Auto 0.2 % (0.2-1.2); Eosinophils Absolute Auto 0.3 K/mm3 (0-0.3); Hemoglobin 10.4 g/dL (14.0-18.0); Immature Granulocyte Absolute 0.06 K/mm3 (0.00-0.031); Immature Granulocyte Percent A 0.7 % (0-0.5); Mean Corpuscular HGB Conc 32.5 g/dl (32-36); Mean Corpuscular Hemoglobin 28.4 pg (26-34); Mean Corpuscular Volume 87.4 fl (80-100); Mean Platelet Volume 10.4 fl (7.4-10.4); Monocytes Absolute Auto 1.3 K/mm3 (0.1-0.6); Monocytes Percent Auto 15.8 % (2.6-8.5); Neutrophils Absolute Auto 5.7 K/mm3 (1.3-6.7); Neutrophils Percent Auto 67.3 % (45.5-73.1); Platelet Count Result 174 k/mm3 (150-375); Red Blood Count 3.66 M/mm3 (4.6-6.20); Red Cell Distribution Width 15.9 % (11.5-14.5); White Blood Count 8.5 K/mm3 (4.5-10.0)
[2023-01-28 05:09] LABS: Alanine Aminotransferase 129 U/L (6-50); Albumin Level 3.7 g/dL (3.5-5.1); Alkaline Phosphatase 184 U/L (38-126); Anion Gap 6 mmol/L (8-16); Aspartate Amino Transferase 53 U/L (17-59); Bilirubin,Total 7.7 mg/dL (0.2-1.3); Blood Urea Nitrogen 14 mg/dL (9-20); Calcium 8.5 mg/dL (8.4-10.2); Carbon Dioxide 25 mmol/L (22-30); Chloride 108 mmol/L (98-107); Estimated CRCL calculation 56 ml/min; Estimated Glomerular Filt Rate > 60; Glucose 94 mg/dL (65-110); Potassium 3.5 mmol/L (3.4-5.0); Sodium 139 mmol/L (137-145)
[2023-01-28] MEDS: SODIUM CHLORIDE 0.9% IV 1,000 ML 999 ML IV CONT (05:18)
[2023-01-28] MEDS: DEXTROSE 5%/0.45% SOD CHL 1,000 ML 100 ML IV CONT ×2 (06:34→17:14)
[2023-01-28] MEDS: FLUTICASONE/UMECLIDIN/VILANTER 100-62.5-25 MCG ELLIPTA 1 PUFF INHALATION (07:51)
[2023-01-28] MEDS: amLODIPine BESYLATE 5 MG TABLET 10 MG PO (08:13)
[2023-01-28] MEDS: BACLOFEN 10 MG TABLET PO ×3 (08:13→17:12)
[2023-01-28] MEDS: ROFLUMILAST 500 MCG TABLET PO (08:14)
[2023-01-28] MEDS: MONTELUKAST SODIUM 10 MG TABLET PO (08:14)
[2023-01-28] MEDS: METOPROLOL TARTRATE 25 MG TABLET PO ×2 (08:14→20:16)
[2023-01-28] MEDS: LORATADINE 10 MG TABLET PO (08:14)
[2023-01-28] MEDS: PANTOPRAZOLE 40 MG TABLET PO (08:14)
[2023-01-28 12:52] LABS: Bilirubin Direct 3.6 mg/dL (0-0.3); Bilirubin Indirect 1.3 mg/dL (0-1.1); Bilirubin,Total 7.5 mg/dL (0.2-1.3)
--- NOTE | 2023-01-28 13:15 | WPDGICN ---
Assessment and Plan Assessment and plan (1) Elevated LFTs: Code(s): R79.89 - Other specified abnormal findings of blood chemistry Status: Acute Assessment and Plan: Elevated LFTs appear to correlate with dilated bile ducts. Elevated lab test is a new finding since September of this year. Plan to check hepatitis serologies. patient appears to have an elevated direct bilirubin suggesting biliary obstruction. MRCP will be obtained. If necessary subsequent ERCP for possible stenting may be required. Will allow liquid diet for now until this can be accomplished. Continue monitor labs daily. Because patient's symptom complex most closely correlates painless jaundice I am somewhat suspicious for underlying carcinoma not evident on CT scan imaging. CA 19-9 level will be obtained. (2) Dilated bile duct: Code(s): K83.8 - Other specified diseases of biliary tract Status: Acute Assessment and Plan: Dilated bile ducts noted on CT scan imaging dating back 1 year. Etiology unclear LFTs are only noted to be elevated at this time and symptoms appear present for only 1 week. Plan to continue to monitor labs. MRCP will be obtained. Patient may require ERCP and stenting of the biliary tree pending these results. (3) Gallbladder polyp: Code(s): K82.4 - Cholesterolosis of gallbladder Status: Acute Assessment and Plan: 1.2cm gallbladder polyp noted on imaging studies may require surgical therapy because of a higher risk of carcinoma. Plan to obtain surgical opinion. (4) COPD (chronic obstructive pulmonary disease): Code(s): J44.9 - Chronic obstructive pulmonary disease, unspecified Status: Acute GI Consult Note Consult date/time: 01/28/23 13:15 Reason for consult: Elevated LFTs. HPI: Lee Cotto is a 72 year old male I am asked to see at the request of the hospitalist service. Patient states that he was in his usual state of health until 1 week ago Tuesday. He began to notice dark urine. Several days later had lytes stool. During this interval of time he contacted primary care service and laboratory work was accomplished. This revealed elevated bilirubin and liver tests. Patient denies any abdominal pain. He has had abdominal distention and bloating. Reports his bowel habits have continued but became somewhat park naturalist in color. Patient has never had jaundice before. He states many years ago was treated for hepatitis C in felt to be cured. . At the time of presentation patient was noted to have elevated biliary tree. No gallstones were identified. The gallbladder itself revealed a 1.2cm gallbladder polyp. Patient has had respiratory issues in the past. There previous CT scans dating back 1 year which revealed dilated bile ducts since that time. In September of this year liver tests were normal but her now elevated. Patient denies any fever nor abdominal pain. Review of Systems Review of Systems: Review of systems noncontributory. [facility] Past Medical History Medical History Asbestos exposure BPH (benign prostatic hyperplasia) Chronic kidney disease Chronic viral hepatitis C COPD (chronic obstructive pulmonary disease) Dependence on supplemental oxygen Elevated PSA Environmental allergies H/O nicotine dependence HTN (hypertension) Nocturnal hypoxemia Obesity Sleep apnea Wears glasses Surgical History Surgical History History of ankle surgery 2016 History of back surgery Family History Family History Father Cancer Pancreatic cancer Mother Asthma Cerebrovascular accident Sibling Diabetes mellitus Hypertension Heart disease Cerebrovascular accident Cancer of colon Other Lung disease Social History Social History (Reviewed
[2023-01-28 13:26] LABS: Hepatitis B Surface Antigen Negative (Negative)
[2023-01-28 13:32] LABS: HAV RESULT Negative (Negative); Hepatitis B Core IgM Result Negative (Negative)
[2023-01-28 13:50] LABS: Hepatitis C Virus Antibody Reactive (Negative)
--- NOTE | 2023-01-28 14:22 | PM.IMPN ---
Progress Note: A&P Assessment and Plan (1) Gallbladder polyp: Code(s): K82.4 - Cholesterolosis of gallbladder Status: Acute Assessment and Plan: Unfortunately this gallbladder polyp of 1.2 cm. The patient has a higher possibility of having malignancy in this gallbladder polyp due to the size of the polyp greater than 1 cm. Cholestyramine 4 mg p.o. b.i.d. p.r.n. Baclofen 10 mg t.i.d. was also started for hiccups. General surgery consulted for possible cholecystectomy. Aspirin/dipyramidole will be held prior to potential surgery (2) Acquired hyperbilirubinemia: Code(s): E80.6 - Other disorders of bilirubin metabolism Status: Acute Assessment and Plan: Cholestyramine 4 mg p.o. b.i.d. p.r.n. itching Baclofen 10 mg t.i.d. was also started for hiccups Cholecystectomy is the definitive treatment for this condition GI consulted due to hyperbilirubinemia of 7.7. Continue to monitor. Negative hepatitis panel. Direct bilirubin elevated at 3.6 and indirect bilirubin elevated 1.3 Abdominal US revealing biliary duct dilation and 1.2 cm gallbladder wall lesion MRCP revealing severe intrahepatic and extrahepatic biliary duct dilation worsened from 11/15/2016 with no choledocholithiasis or obstructing mass. PCKD noted as well as umbilical hernia containing nonobstructive small bowel. (3) COPD (chronic obstructive pulmonary disease): Code(s): J44.9 - Chronic obstructive pulmonary disease, unspecified Status: Acute Assessment and Plan: Continue all home meds for COPD This includes albuterol, breztri, roflumilast, fluticasone, ipratropium, montelukast Continue patient on baseline 2-3 L of oxygen (4) Benign hypertension with chronic kidney disease: Code(s): I12.9 - Hypertensive chronic kidney disease with stage 1 through stage 4 chronic kidney disease, or unspecified chronic kidney disease Status: Acute Assessment and Plan: Continue amlodipine, metoprolol, doxazosin (5) Chronic kidney disease, stage 2 (mild): Code(s): N18.2 - Chronic kidney disease, stage 2 (mild) Status: Acute Assessment and Plan: Monitor Creatinine has already come down from 1.4-1.2 The remaining electrolytes have normalized (6) GERD (gastroesophageal reflux disease): Code(s): K21.9 - Gastro-esophageal reflux disease without esophagitis Status: Acute Assessment and Plan: Continue omeprazole Subjective Date/time seen: 01/28/23 14:22 Interval history: Patient states that approximately 1 week ago he noticed that his urine was very dark and shortly after that he realized his eyes were yellow. He tried to contact his primary care provider regarding his symptoms and when he could not get a hold of them he started gurgling what was wrong and he discovered that he had jaundice. He had yellowing of the eyes, abdominal distension, dark urine, pale stools and itching of the skin. Patient still states that he is having the symptoms. He went to his primary care office and his bilirubin was 7.9. Patient denies any nausea, vomiting, abdominal pain. Patient is not in excessive drinker and states that he would have about 1 drink per week but he is a former smoker of 50 pack years. Awaiting further recommendations from General surgery. Review of Systems Review of Systems: All systems reviewed & are unremarkable except as noted in HPI and below Exam Narrative: GENERAL: Comfortable, no acute distress HENMT: moist mucous membranes EYES: EOM intact b/l, scleral icterus NECK: no lymphadenopathy RESPIRATORY: clear to auscultation CARDIO: RRR GI: Abdominal distension, soft, nontender, bowel sounds present SKIN: no rashes EXTREMITIES: no edema, redness or tenderness Objective Data Vital Signs Vital Signs: Vital Signs - 24 hr 01/27/23 19:12 01/27/23 20:16 01/27/23 22:30 Temperature 98.2 F Pulse R
--- NOTE | 2023-01-28 18:53 | PM.CNGS ---
Assessment and Plan Assessment and plan (1) Elevated LFTs: Code(s): R79.89 - Other specified abnormal findings of blood chemistry Status: Acute Assessment and Plan: Painless hyperbilirubinemia with dilated bile ducts. I agree with Dr. Hall this is concerning for malignancy. MRCP and CT scan were both negative for a malignancy. Possibly a bile duct stricture as cause. Will discuss with Dr. Hall. Further workup per his recommendation. (2) Dilated bile duct: Code(s): K83.8 - Other specified diseases of biliary tract Status: Chronic Assessment and Plan: Common bile duct over 3 cm in diameter, this is over 3 times as large as normal. (3) Gallbladder polyp: Code(s): K82.4 - Cholesterolosis of gallbladder Status: Chronic Assessment and Plan: 1.2 cm gallbladder polyp would be best treated with cholecystectomy. I discussed that with the patient. I feel that evaluation of his hyperbilirubinemia and dilated bile ducts should take priority over the gallbladder polyp. Will follow along and discuss timing as evaluation continues. (4) Umbilical hernia without mention of obstruction or gangrene: Code(s): K42.9 - Umbilical hernia without obstruction or gangrene Status: Chronic Assessment and Plan: Chronic asymptomatic umbilical hernia. Can be repaired electively, possibly at the time of cholecystectomy. No urgency in this regard. (5) COPD (chronic obstructive pulmonary disease): Code(s): J44.9 - Chronic obstructive pulmonary disease, unspecified Status: Chronic Assessment and Plan: Previously a heavy smoker. Also has history of asbestos exposure. Increases surgical risk. History of Present Illness Consult details Consult date: 01/28/23 Reason for consult: other (Jaundice, gallbladder polyp) Requesting physician: Jed Fischer MD Narrative: Patient is a very nice 72-year-old gentleman who noted his abdomen was becoming more protuberant, his urine was very dark and he was not feeling well. He told his primary care physician who ordered some lab testing and found that his bilirubin was 7.9. Patient was sent to the emergency room. He has not really had any abdominal pain. He had a CT scan which showed significant dilatation of the intra and extrahepatic biliary ducts but no evidence of a tumor or obstructing lesion. He had a gallbladder ultrasound which showed a 1.2 cm polyp in the gallbladder. Patient was noted on CT scan from September of this year to have dilated bile ducts but had a normal bilirubin at that time. He was seen by Dr. Hall earlier today. In MRCP was done and showed no gallstones and no sign of a tumor or source of obstruction to cause his jaundice. Patient has had no history of postprandial right upper quadrant or epigastric abdominal pain. He does report a history of hepatitis C but took treatment for that and thought he had been cured. Patient is seen now in consultation. Review of Systems Review of Systems: All systems reviewed & are unremarkable except as noted in HPI and below (HPI and those items noted below) Constitutional: Constitutional: Denies chills and Denies fever(s) Cardiovascular: Cardiovascular: Denies chest pain, Denies diaphoresis, Denies dyspnea and Denies paroxysmal nocturnal dyspnea Respiratory: Respiratory: Denies chest congestion, Denies cough and Denies dyspnea Integumentary/Breasts: Skin/Breast: Denies lesions and Denies rash PMFSH Past Medical History Medical History Asbestos exposure BPH (benign prostatic hyperplasia) Chronic kidney disease Chronic viral hepatitis C COPD (chronic obstructive pulmonary disease) Dependence on supplemental oxygen Elevated PSA Environmental allergies H/O nicotine dependence HTN (hypertension) Nocturnal hypoxemia Obesity Sleep apnea Wears glasses Surgical History Surgical History (Reviewed 01/28/23 @ 18:
[2023-01-28] MEDS: DOXAZOSIN MESYLATE 4 MG TABLET 8 MG PO (20:17)
[2023-01-29 05:35] LABS: Basophils Percent Auto 0.5 % (0.2-1.2); Eosinophils Absolute Auto 0.3 K/mm3 (0-0.3); Eosinophils Percent Auto 3.7 % (0-4.4); Hematocrit 32.6 % (42.0-52.0); Hemoglobin 10.8 g/dL (14.0-18.0); Immature Granulocyte Absolute 0.08 K/mm3 (0.00-0.031); Lymphocytes Absolute Auto 1.35 K/mm3 (0.9-3.2); Mean Corpuscular HGB Conc 33.1 g/dl (32-36); Mean Corpuscular Hemoglobin 28.1 pg (26-34); Mean Corpuscular Volume 84.7 fl (80-100); Mean Platelet Volume 10.3 fl (7.4-10.4); Monocytes Absolute Auto 1.1 K/mm3 (0.1-0.6); Monocytes Percent Auto 14.2 % (2.6-8.5); Neutrophils Percent Auto 63.6 % (45.5-73.1); Platelet Count Result 196 k/mm3 (150-375); Red Blood Count 3.85 M/mm3 (4.6-6.20); Red Cell Distribution Width 15.6 % (11.5-14.5); White Blood Count 7.9 K/mm3 (4.5-10.0)
[2023-01-29 06:21] LABS: Alanine Aminotransferase 127 U/L (6-50); Albumin Level 3.7 g/dL (3.5-5.1); Alkaline Phosphatase 203 U/L (38-126); Anion Gap 8 mmol/L (8-16); Aspartate Amino Transferase 69 U/L (17-59); Bilirubin,Total 8.4 mg/dL (0.2-1.3); Blood Urea Nitrogen 8 mg/dL (9-20); Calcium 8.6 mg/dL (8.4-10.2); Carbon Dioxide 25 mmol/L (22-30); Chloride 107 mmol/L (98-107); Estimated CRCL calculation 61 ml/min; Estimated Glomerular Filt Rate > 60; Glucose 88 mg/dL (65-110); Potassium 3.7 mmol/L (3.4-5.0); Sodium 140 mmol/L (137-145)
[2023-01-29 06:58] VITALS: BP 151/75; PULSE 82; RESP 18; TEMP 36.4; O2SAT 97
[2023-01-29 08:34] VITALS: PULSE 80; RESP 18; O2SAT 96
[2023-01-29] MEDS: LORATADINE 10 MG TABLET PO (08:34)
[2023-01-29] MEDS: MONTELUKAST SODIUM 10 MG TABLET PO (08:34)
[2023-01-29] MEDS: amLODIPine BESYLATE 5 MG TABLET 10 MG PO (08:34)
[2023-01-29] MEDS: METOPROLOL TARTRATE 25 MG TABLET PO ×2 (08:34→20:26)
[2023-01-29] MEDS: ROFLUMILAST 500 MCG TABLET PO (08:34)
[2023-01-29] MEDS: PANTOPRAZOLE 40 MG TABLET PO (08:34)
[2023-01-29] MEDS: BACLOFEN 10 MG TABLET PO ×3 (08:34→16:40)
[2023-01-29] MEDS: FLUTICASONE/UMECLIDIN/VILANTER 100-62.5-25 MCG ELLIPTA 1 PUFF INHALATION (08:44)
[2023-01-29 08:45] VITALS: O2SAT 96
--- NOTE | 2023-01-29 09:29 | WPDGIPROGNO ---
Progress Note: A&P Assessment and Plan (1) Elevated LFTs: Code(s): R79.89 - Other specified abnormal findings of blood chemistry Status: Acute Assessment and Plan: Patient with elevated liver function test. Appears to have painless jaundice. Imaging studies revealed dilated biliary tree but no clear mass nor stricture. Will plan ERCP with possible sphincterotomy and stent placement on Tuesday. I am concerned about of stricture or mass in this area not present on imaging studies. If ERCP not fruitful then endoscopic ultrasound tertiary care center would be necessary. CA 19-9 level pending. Continue to monitor LFTs. We can let him have a diet until Tuesday morning. (2) Dilated bile duct: Code(s): K83.8 - Other specified diseases of biliary tract Status: Chronic (3) Gallbladder polyp: Code(s): K82.4 - Cholesterolosis of gallbladder Status: Chronic Assessment and Plan: Consider eventual cholecystectomy. Surgery following. (4) Umbilical hernia without mention of obstruction or gangrene: Code(s): K42.9 - Umbilical hernia without obstruction or gangrene Status: Chronic Assessment and Plan: Hernia noted. Can be followed up by surgery later. Subjective Date/time seen: 01/29/23 09:29 Interval history: Patient remains alert comfortable this morning. Hungry for more solid food. Denies abdominal pain. Has had no fever. Review of Systems Review of Systems: Review of systems noncontributory. Exam Narrative: Physical exam reveals patient be alert. Vital signs stable. HEENT exam unremarkable. Patient Mild icterus.. Lungs are clear. Heart without murmur. Abdomen bowel sounds present soft nontender with no organomegaly. Objective Data Vital Signs Vital Signs: Vital Signs - 24 hr 01/28/23 14:57 01/28/23 20:16 01/28/23 20:00 Temperature 97.9 F Pulse Rate 91 80 80 Respiratory Rate 18 18 Blood Pressure 142/75 H Pulse Oximetry 100 100 Oxygen Delivery Nasal Cannula Oxygen Flow Rate 2 Fraction of Inspired Oxygen 28 01/28/23 23:01 01/29/23 06:58 01/29/23 08:34 Temperature 97.8 F 97.6 F Pulse Rate 81 82 80 Respiratory Rate 21 H 18 Blood Pressure 162/86 H 151/75 H Pulse Oximetry 100 97 Oxygen Delivery Oxygen Flow Rate Fraction of Inspired Oxygen 01/29/23 08:45 Temperature Pulse Rate Respiratory Rate Blood Pressure Pulse Oximetry 96 Oxygen Delivery Nasal Cannula Oxygen Flow Rate 2 Fraction of Inspired Oxygen Intake/Output Intake/Output: Intake & Output 01/26/23 01/27/23 01/28/23 01/29/23 23:59 23:59 23:59 23:59 Intake Total 2990 1800 Output Total 3800 1900 Balance -810 -100 Meds/Results Medications: Active Medications Generic Name Dose Route Start Last Admin Trade Name Freq PRN Reason Stop Dose Admin Albuterol 2.5 mg 01/28/23 04:40 Albuterol Sulfate Neb 2.5 Mg/3 Ml Inh INHALATION Q6HRT PRN Shortness Of Breath Or Wheezing Albuterol 1 - 2 puff 01/28/23 08:00 Albuterol Sulfate (*Sp) Aerosol 1 Puff INHALATION Q4-6H PRN shortness of breath or wheezing Amlodipine Besylate 10 mg 01/28/23 09:00 01/29/23 08:34 Amlodipine Besylate 5 Mg Tablet PO 10 mg QAM BALWINDER Administration Baclofen 10 mg 01/28/23 09:00 01/29/23 08:34 Baclofen 10 Mg Tablet PO 02/03/23 08:59 10 mg TID BALWINDER Administration Cholestyramine Resin 4 gm 01/28/23 04:35 Cholestyramine Light 4 Gm Powd.Pack PO BID PRN Itching Doxazosin Mesylate 8 mg 01/28/23 21:00 01/28/23 20:17 Doxazosin Mesylate 4 Mg Tablet PO 8 mg HS BALWINDER Administration Ergocalciferol 50,000 units 02/03/23 09:00 Ergocalciferol 50,000 Units Capsule PO Th@0900 [facility] Fluticasone Propionate 1 spray 01/28/23 04:40 Fluticasone Propionate 0.05% Na Spr 16 Gm Btl (*Bkc) NASAL DAILY PRN Congestion Fluticasone/Umeclidinium/Vilanterol 1 puff
[2023-01-29 10:00] LABS: Alanine Aminotransferase 123 U/L (6-50); Albumin Level 3.6 g/dL (3.5-5.1); Alkaline Phosphatase 200 U/L (38-126); Aspartate Amino Transferase 60 U/L (17-59); Bilirubin Direct 3.9 mg/dL (0-0.3); Bilirubin,Total 8.2 mg/dL (0.2-1.3)
--- NOTE | 2023-01-29 12:52 | PM.IMPN ---
Progress Note: A&P Assessment and Plan (1) Gallbladder polyp: Code(s): K82.4 - Cholesterolosis of gallbladder Status: Chronic Assessment and Plan: Unfortunately this gallbladder polyp of 1.2 cm. The patient has a higher possibility of having malignancy in this gallbladder polyp due to the size of the polyp greater than 1 cm. Cholestyramine 4 mg p.o. b.i.d. p.r.n. Baclofen 10 mg t.i.d. was also started for hiccups. Cholecystectomy on hold for now. Workup for painless jaundice in process. Plan for ERCP on Tuesday (2) Acquired hyperbilirubinemia: Code(s): E80.6 - Other disorders of bilirubin metabolism Status: Acute Assessment and Plan: Cholestyramine 4 mg p.o. b.i.d. p.r.n. itching Baclofen 10 mg t.i.d. was also started for hiccups Cholecystectomy is the definitive treatment for this condition GI consulted due to hyperbilirubinemia. Continue to monitor. Negative hepatitis panel. Direct bilirubin elevated at 3.6 and indirect bilirubin elevated 1.3 Abdominal US revealing biliary duct dilation and 1.2 cm gallbladder wall lesion MRCP revealing severe intrahepatic and extrahepatic biliary duct dilation worsened from 11/15/2016 with no choledocholithiasis or obstructing mass. PCKD noted as well as umbilical hernia containing nonobstructive small bowel. Bilirubin up to 8.4 today. CA 19-9 level pending (3) COPD (chronic obstructive pulmonary disease): Code(s): J44.9 - Chronic obstructive pulmonary disease, unspecified Status: Chronic Assessment and Plan: Continue all home meds for COPD This includes albuterol, breztri, roflumilast, fluticasone, ipratropium, montelukast Continue patient on baseline 2-3 L of oxygen (4) Benign hypertension with chronic kidney disease: Code(s): I12.9 - Hypertensive chronic kidney disease with stage 1 through stage 4 chronic kidney disease, or unspecified chronic kidney disease Status: Acute Assessment and Plan: Continue amlodipine, metoprolol, doxazosin (5) Chronic kidney disease, stage 2 (mild): Code(s): N18.2 - Chronic kidney disease, stage 2 (mild) Status: Acute Assessment and Plan: Monitor Creatinine has already come down from 1.4-1.2 The remaining electrolytes have normalized (6) GERD (gastroesophageal reflux disease): Code(s): K21.9 - Gastro-esophageal reflux disease without esophagitis Status: Acute Assessment and Plan: Continue omeprazole (7) Hepatitis C: Code(s): B19.20 - Unspecified viral hepatitis C without hepatic coma Status: Acute Assessment and Plan: Hepatitis-C antibody screen reactive. HCV RNA pending. According to patient history of hepatitis C that was ?cured?. Subjective Date/time seen: 01/29/23 12:52 Interval history: Patient feeling well today. He is still experiencing some abdominal bloating and itching but does not report any pain. Patient is requesting a diet. Plan for ERCP on Tuesday and possible transfer to tertiary center if he ends up requiring an endoscopic ultrasound. Exam Narrative: GENERAL: Comfortable, no acute distress HENMT: moist mucous membranes EYES: EOM intact b/l, scleral icterus NECK: no lymphadenopathy RESPIRATORY: clear to auscultation CARDIO: RRR GI: Abdominal distension, soft, nontender, bowel sounds present SKIN: no rashes EXTREMITIES: no edema, redness or tenderness Objective Data Vital Signs Vital Signs: Vital Signs - 24 hr 01/28/23 14:57 01/28/23 20:16 01/28/23 20:00 Temperature 97.9 F Pulse Rate 91 80 80 Respiratory Rate 18 18 Blood Pressure 142/75 H Pulse Oximetry 100 100 Oxygen Delivery Nasal Cannula Oxygen Flow Rate 2 Fraction of Inspired Oxygen 28 01/28/23 23:01 01/29/23 06:58 01/29/23 08:34 Temperature 97.8 F 97.6 F Pulse Rate 81 82 80 Respiratory Rate 21 H 18 Blood Pressure 162/86 H 151/75 H P
[2023-01-29 13:55] VITALS: BP 130/74; PULSE 84; RESP 16; TEMP 36.6; O2SAT 98
--- NOTE | 2023-01-29 16:18 | PM.PNGS ---
Progress Note: A&P Assessment and Plan (1) Elevated LFTs: Code(s): R79.89 - Other specified abnormal findings of blood chemistry Status: Acute Assessment and Plan: Agree with Dr. Hall that ERCP is indicated with the marked biliary ductal dilatation and can continuing to have increasing serum bilirubin and LFTs. Patient does have a reactive test to hepatitis C antibody but this could be a consequence of just having had hepatitis-C previously. If the jaundice was from intrahepatic source, patient should not have dilated bile ducts. ERCP to be done Tuesday. No plans for gallbladder surgery until further evaluation of the hyperbilirubinemia is completed. (2) Dilated bile duct: Code(s): K83.8 - Other specified diseases of biliary tract Status: Chronic (3) Umbilical hernia without mention of obstruction or gangrene: Code(s): K42.9 - Umbilical hernia without obstruction or gangrene Status: Chronic Assessment and Plan: Asymptomatic. Can be repaired electively (4) Gallbladder polyp: Code(s): K82.4 - Cholesterolosis of gallbladder Status: Chronic Assessment and Plan: Needs elective cholecystectomy. Subjective Subjective Date/Time Seen: 01/29/23 16:18 Patient reports: tolerating a regular diet, afebrile and other (Left shoulder hurts. Says he slept on it wrong. He woke up with it hurting.) Review of Systems Review of Systems: All systems reviewed & are unremarkable except as noted in HPI and below (HPI) Exam Const: General: comfortable and no acute distress Nutritional Appearance: overweight GI: Inspection: obesity and visible pulsation (Umbilical) GI Palp: Yes Soft to palpation, No Tenderness to palpation present (GI) and Yes Hernia present (Reducible) Objective Data Vital Signs Vital Signs: Vital Signs - 24 hr 01/28/23 20:16 01/28/23 20:00 01/28/23 23:01 Temperature 36.6 C Pulse Rate 80 80 81 Respiratory Rate 18 21 H Blood Pressure 162/86 H Pulse Oximetry 100 100 Oxygen Delivery Nasal Cannula Oxygen Flow Rate 2 Fraction of Inspired Oxygen 28 01/29/23 06:58 01/29/23 08:34 01/29/23 08:45 Temperature 36.4 C Pulse Rate 82 80 Respiratory Rate 18 Blood Pressure 151/75 H Pulse Oximetry 97 96 Oxygen Delivery Nasal Cannula Oxygen Flow Rate 2 Fraction of Inspired Oxygen 01/29/23 08:34 01/29/23 13:55 Temperature 36.6 C Pulse Rate 84 Respiratory Rate 18 16 Blood Pressure 130/74 Pulse Oximetry 96 98 Oxygen Delivery Nasal Cannula Oxygen Flow Rate 2 Fraction of Inspired Oxygen Intake/Output Intake/Output: Intake & Output 01/26/23 01/27/23 01/28/23 01/29/23 23:59 23:59 23:59 23:59 Intake Total 2990 2060 Output Total 3800 2300 Balance -810 -240 Meds/Results Medications: Active Medications Generic Name Dose Route Start Last Admin Trade Name Freq PRN Reason Stop Dose Admin Albuterol 2.5 mg 01/28/23 04:40 Albuterol Sulfate Neb 2.5 Mg/3 Ml Inh INHALATION Q6HRT PRN Shortness Of Breath Or Wheezing Albuterol 1 - 2 puff 01/28/23 08:00 Albuterol Sulfate (*Sp) Aerosol 1 Puff INHALATION Q4-6H PRN shortness of breath or wheezing Amlodipine Besylate 10 mg 01/28/23 09:00 01/29/23 08:34 Amlodipine Besylate 5 Mg Tablet PO 10 mg QAM BALWINDER Administration Baclofen 10 mg 01/28/23 09:00 01/29/23 12:28 Baclofen 10 Mg Tablet PO 02/03/23 08:59 10 mg TID BALWINDER Administration Cholestyramine Resin 4 gm 01/28/23 04:35 Cholestyramine Light 4 Gm Powd.Pack PO BID PRN Itching Doxazosin Mesylate 8 mg 01/28/23 21:00 01/28/23 20:17 Doxazosin Mesylate 4 Mg Tablet PO 8 mg HS BALWINDER Administration Ergocalciferol 50,000 units 02/03/23 09:00 Ergocalciferol 50,000 Units Capsule PO Th@0900 [facility] Fluticasone Propionate 1 spray 01/28/23 04:40 Fluticasone Propionate 0.05% Na Spr 16 Gm Btl (*Bkc) NASAL DAILY PRN Conge
[2023-01-29 20:00] VITALS: PULSE 92; RESP 20; O2SAT 99
[2023-01-29] MEDS: DOXAZOSIN MESYLATE 4 MG TABLET 8 MG PO (20:26)
[2023-01-29 22:00] VITALS: BP 137/79; PULSE 92; RESP 20; TEMP 36.9; O2SAT 99
[2023-01-30] VITALS (13 sets, daily range): BP systolic 115–137; BP diastolic 62–75; PULSE 74–99; RESP 16–21; TEMP 36.4–36.9; O2SAT 92–100
[2023-01-30 05:00] LABS: Basophils Percent Auto 0.3 % (0.2-1.2); Eosinophils Absolute Auto 0.2 K/mm3 (0-0.3); Eosinophils Percent Auto 2.2 % (0-4.4); Hematocrit 33.3 % (42.0-52.0); Hemoglobin 11.1 g/dL (14.0-18.0); Immature Granulocyte Absolute 0.05 K/mm3 (0.00-0.031); Immature Granulocyte Percent A 0.6 % (0-0.5); Lymphocytes Absolute Auto 1.23 K/mm3 (0.9-3.2); Lymphocytes Percent Auto 14.1 % (18.3-44.2); Mean Corpuscular HGB Conc 33.3 g/dl (32-36); Mean Corpuscular Hemoglobin 28.4 pg (26-34); Mean Corpuscular Volume 85.2 fl (80-100); Mean Platelet Volume 10.2 fl (7.4-10.4); Monocytes Absolute Auto 1.2 K/mm3 (0.1-0.6); Monocytes Percent Auto 13.8 % (2.6-8.5); Platelet Count Result 198 k/mm3 (150-375); Red Blood Count 3.91 M/mm3 (4.6-6.20); Red Cell Distribution Width 15.9 % (11.5-14.5); White Blood Count 8.7 K/mm3 (4.5-10.0)
[2023-01-30 05:09] LABS: Alanine Aminotransferase 119 U/L (6-50); Albumin Level 3.8 g/dL (3.5-5.1); Alkaline Phosphatase 221 U/L (38-126); Anion Gap 6 mmol/L (8-16); Aspartate Amino Transferase 62 U/L (17-59); Bilirubin,Total 9.5 mg/dL (0.2-1.3); Blood Urea Nitrogen 13 mg/dL (9-20); Calcium 8.8 mg/dL (8.4-10.2); Carbon Dioxide 24 mmol/L (22-30); Chloride 108 mmol/L (98-107); Estimated CRCL calculation 56 ml/min; Estimated Glomerular Filt Rate > 60; Glucose 105 mg/dL (65-110); Potassium 3.7 mmol/L (3.4-5.0); Sodium 138 mmol/L (137-145)
[2023-01-30 05:25] LABS: Alanine Aminotransferase 121 U/L (6-50); Albumin Level 3.8 g/dL (3.5-5.1); Alkaline Phosphatase 228 U/L (38-126); Aspartate Amino Transferase 66 U/L (17-59); Bilirubin Direct 4.6 mg/dL (0-0.3); Bilirubin,Total 9.4 mg/dL (0.2-1.3)
[2023-01-30] MEDS: FLUTICASONE/UMECLIDIN/VILANTER 100-62.5-25 MCG ELLIPTA 1 PUFF INHALATION (08:03)
[2023-01-30] MEDS: ROFLUMILAST 500 MCG TABLET PO (09:23)
[2023-01-30] MEDS: amLODIPine BESYLATE 5 MG TABLET 10 MG PO (09:23)
[2023-01-30] MEDS: BACLOFEN 10 MG TABLET PO ×3 (09:24→17:16)
[2023-01-30] MEDS: LORATADINE 10 MG TABLET PO (09:24)
[2023-01-30] MEDS: PANTOPRAZOLE 40 MG TABLET PO (09:24)
[2023-01-30] MEDS: MONTELUKAST SODIUM 10 MG TABLET PO (09:24)
[2023-01-30] MEDS: METOPROLOL TARTRATE 25 MG TABLET PO ×2 (09:24→20:21)
--- NOTE | 2023-01-30 09:54 | WPDGIPROGNO ---
Progress Note: A&P Assessment and Plan (1) Elevated LFTs: Code(s): R79.89 - Other specified abnormal findings of blood chemistry Status: Acute Assessment and Plan: Elevated LFTs most consistent with obstructive jaundice. Biliary imaging reveals dilated bilirubin down to the head of the pancreas. Plan for ERCP to evaluate more thoroughly. Possible placement of stent or sphincterotomy pending results. If this is not fruitful endoscopic ultrasound at tertiary care may be required. (Patient has a distant history of hepatitis C that was treated. Nonspecific hepatitis C screen is positive but PCR test pending.) (2) Dilated bile duct: Code(s): K83.8 - Other specified diseases of biliary tract Status: Chronic Assessment and Plan: Etiology for dilated bile duct unclear. Painless jaundice raises the question of a malignancy. CA 19-9 level pending. Subjective Date/time seen: 01/30/23 09:54 Interval history: Patient comfortable at rest. Offers no complaints. Denies abdominal pain. No fever. Review of Systems Review of Systems: Review of systems noncontributory. Exam Narrative: Physical exam reveals patient to be alert. Vital signs stable. HEENT exam is unremarkable. Patient anicteric. Lungs are clear heart without murmur. Abdomen bowel sounds present soft nontender no organomegaly. Objective Data Vital Signs Vital Signs: Vital Signs - 24 hr 01/29/23 13:55 01/29/23 22:00 01/29/23 20:00 Temperature 97.9 F 98.5 F Pulse Rate 84 92 92 Respiratory Rate 16 20 20 Blood Pressure 130/74 137/79 Pulse Oximetry 98 99 99 Oxygen Delivery Nasal Cannula Oxygen Flow Rate 2 Fraction of Inspired Oxygen 01/30/23 06:00 01/30/23 08:04 01/30/23 08:04 Temperature 97.5 F L Pulse Rate 81 82 Respiratory Rate 21 H 18 Blood Pressure 130/73 Pulse Oximetry 100 95 Oxygen Delivery Nasal Cannula Oxygen Flow Rate 2 Fraction of Inspired Oxygen 01/30/23 09:22 01/30/23 09:24 Temperature Pulse Rate 74 79 Respiratory Rate Blood Pressure 137/75 Pulse Oximetry 97 Oxygen Delivery Oxygen Flow Rate Fraction of Inspired Oxygen Intake/Output Intake/Output: Intake & Output 01/27/23 01/28/23 01/29/23 01/30/23 23:59 23:59 23:59 23:59 Intake Total 2990 2650 740 Output Total 1457 1850 8671 Balance -654 -676 -652 Meds/Results Medications: Active Medications Generic Name Dose Route Start Last Admin Trade Name Freq PRN Reason Stop Dose Admin Albuterol 2.5 mg 01/28/23 04:40 Albuterol Sulfate Neb 2.5 Mg/3 Ml Inh INHALATION Q6HRT PRN Shortness Of Breath Or Wheezing Albuterol 1 - 2 puff 01/28/23 08:00 Albuterol Sulfate (*Sp) Aerosol 1 Puff INHALATION Q4-6H PRN shortness of breath or wheezing Amlodipine Besylate 10 mg 01/28/23 09:00 01/30/23 09:23 Amlodipine Besylate 5 Mg Tablet PO 10 mg QAM BALWINDER Administration Baclofen 10 mg 01/28/23 09:00 01/30/23 09:24 Baclofen 10 Mg Tablet PO 02/03/23 08:59 10 mg TID BALWINDER Administration Cholestyramine Resin 4 gm 01/28/23 04:35 Cholestyramine Light 4 Gm Powd.Pack PO BID PRN Itching Doxazosin Mesylate 8 mg 01/28/23 21:00 01/29/23 20:26 Doxazosin Mesylate 4 Mg Tablet PO 8 mg HS BALWINDER Administration Ergocalciferol 50,000 units 02/03/23 09:00 Ergocalciferol 50,000 Units Capsule PO Th@0900 [facility] Fluticasone Propionate 1 spray 01/28/23 04:40 Fluticasone Propionate 0.05% Na Spr 16 Gm Btl (*Bkc) NASAL DAILY PRN Congestion Fluticasone/Umeclidinium/Vilanterol 1 puff 01/28/23 08:00 01/30/23 08:03 Fluticasone/Umeclidin/Vilanter 100-62.5-25 Mcg Ellipta INHALATION 1 puff DAILYRT BALWINDER Administration Ipratropium Gurley 0.5 mg 01/28/23 04:40 Ipratropium Br 0.02% Inh Soln 0.5 Mg/2.5 Ml Vial INHALATION Q6HRT PRN shortness of breath or wheezing Loratadine 10 mg 01/28/23 09:00 0
--- NOTE | 2023-01-30 11:54 | PM.IMPN ---
Progress Note: A&P Assessment and Plan (1) Gallbladder polyp: Code(s): K82.4 - Cholesterolosis of gallbladder Status: Chronic Assessment and Plan: Unfortunately this gallbladder polyp of 1.2 cm. The patient has a higher possibility of having malignancy in this gallbladder polyp due to the size of the polyp greater than 1 cm. Cholestyramine 4 mg p.o. b.i.d. p.r.n. Baclofen 10 mg t.i.d. was also started for hiccups. Cholecystectomy on hold for now. Workup for painless jaundice in process. Plan for ERCP on Tuesday (2) Acquired hyperbilirubinemia: Code(s): E80.6 - Other disorders of bilirubin metabolism Status: Acute Assessment and Plan: Cholestyramine 4 mg p.o. b.i.d. p.r.n. itching Baclofen 10 mg t.i.d. was also started for hiccups Cholecystectomy is the definitive treatment for this condition GI consulted due to hyperbilirubinemia. Continue to monitor. Negative hepatitis panel. Direct bilirubin elevated at 3.6 and indirect bilirubin elevated 1.3 Abdominal US revealing biliary duct dilation and 1.2 cm gallbladder wall lesion MRCP revealing severe intrahepatic and extrahepatic biliary duct dilation worsened from 11/15/2016 with no choledocholithiasis or obstructing mass. PCKD noted as well as umbilical hernia containing nonobstructive small bowel. Bilirubin up to 9.5 today. CA 19-9 level pending (3) COPD (chronic obstructive pulmonary disease): Code(s): J44.9 - Chronic obstructive pulmonary disease, unspecified Status: Chronic Assessment and Plan: Continue all home meds for COPD This includes albuterol, breztri, roflumilast, fluticasone, ipratropium, montelukast Continue patient on baseline 2-3 L of oxygen Nebulizer treatment scheduled (4) Benign hypertension with chronic kidney disease: Code(s): I12.9 - Hypertensive chronic kidney disease with stage 1 through stage 4 chronic kidney disease, or unspecified chronic kidney disease Status: Chronic Assessment and Plan: Continue amlodipine, metoprolol, doxazosin (5) Chronic kidney disease, stage 2 (mild): Code(s): N18.2 - Chronic kidney disease, stage 2 (mild) Status: Chronic Assessment and Plan: Monitor Creatinine has already come down from 1.4-1.2 The remaining electrolytes have normalized (6) GERD (gastroesophageal reflux disease): Code(s): K21.9 - Gastro-esophageal reflux disease without esophagitis Status: Chronic Assessment and Plan: Continue omeprazole (7) Hepatitis C: Code(s): B19.20 - Unspecified viral hepatitis C without hepatic coma Status: Acute Assessment and Plan: Hepatitis-C antibody screen reactive. HCV RNA pending. According to patient history of hepatitis C that was ?cured?. Subjective Date/time seen: 01/30/23 11:54 Interval history: Patient having some shoulder pain states that he slept on his shoulder wrong. He requested a heating pad which has been ordered. Patient stated that he uses nebulizer treatments 3 times a day at home. Nebulizer treatment continued here. States that his itching has improved. He continues to have dark urine and light stools. Plan for ERCP tomorrow Exam Narrative: GENERAL: Comfortable, no acute distress HENMT: moist mucous membranes EYES: EOM intact b/l, scleral icterus NECK: no lymphadenopathy RESPIRATORY: clear to auscultation CARDIO: RRR GI: Abdominal distension, soft, nontender, bowel sounds present SKIN: no rashes EXTREMITIES: no edema, redness or tenderness Objective Data Vital Signs Vital Signs: Vital Signs - 24 hr 01/29/23 13:55 01/29/23 22:00 01/29/23 20:00 Temperature 97.9 F 98.5 F Pulse Rate 84 92 92 Respiratory Rate 16 20 20 Blood Pressure 130/74 137/79 Pulse Oximetry 98 99 99 Oxygen Delivery Nasal Cannula Oxygen Flow Rate 2 Fraction of Inspired Oxygen 28 01/30/23 06:00 01/30/23
[2023-01-30] MEDS: ALBUTEROL SULFATE NEB 2.5 MG/3 ML INH INHALATION ×2 (13:50→20:53)
[2023-01-30] MEDS: IPRATROPIUM BR 0.02% INH SOLN 0.5 MG/2.5 ML VIAL INHALATION ×2 (13:50→20:53)
[2023-01-30] MEDS: DOXAZOSIN MESYLATE 4 MG TABLET 8 MG PO (20:21)
[2023-01-31] VITALS (26 sets, daily range): BP systolic 101–126; BP diastolic 63–84; PULSE 71–95; RESP 14–22; TEMP 36.1–36.7; O2SAT 93–100
[2023-01-31] MEDS: IPRATROPIUM BR 0.02% INH SOLN 0.5 MG/2.5 ML VIAL INHALATION ×4 (02:30→20:17)
[2023-01-31] MEDS: ALBUTEROL SULFATE NEB 2.5 MG/3 ML INH INHALATION ×4 (02:30→20:17)
[2023-01-31 06:47] LABS: Basophils Percent Auto 0.4 % (0.2-1.2); Eosinophils Absolute Auto 0.2 K/mm3 (0-0.3); Eosinophils Percent Auto 2.3 % (0-4.4); Hematocrit 31.6 % (42.0-52.0); Hemoglobin 10.3 g/dL (14.0-18.0); Immature Granulocyte Absolute 0.08 K/mm3 (0.00-0.031); Immature Granulocyte Percent A 0.9 % (0-0.5); Lymphocytes Percent Auto 15.2 % (18.3-44.2); Mean Corpuscular HGB Conc 32.6 g/dl (32-36); Mean Corpuscular Hemoglobin 28.1 pg (26-34); Mean Corpuscular Volume 86.1 fl (80-100); Mean Platelet Volume 11.2 fl (7.4-10.4); Neutrophils Absolute Auto 5.9 K/mm3 (1.3-6.7); Neutrophils Percent Auto 69.2 % (45.5-73.1); Platelet Count Result 214 k/mm3 (150-375); Red Blood Count 3.67 M/mm3 (4.6-6.20); Red Cell Distribution Width 16.3 % (11.5-14.5); White Blood Count 8.6 K/mm3 (4.5-10.0)
[2023-01-31 07:06] LABS: Alanine Aminotransferase 111 U/L (6-50); Albumin Level 3.5 g/dL (3.5-5.1); Alkaline Phosphatase 215 U/L (38-126); Anion Gap 3 mmol/L (8-16); Aspartate Amino Transferase 55 U/L (17-59); Bilirubin Direct 5.1 mg/dL (0-0.3); Blood Urea Nitrogen 15 mg/dL (9-20); Calcium 8.6 mg/dL (8.4-10.2); Carbon Dioxide 24 mmol/L (22-30); Chloride 108 mmol/L (98-107); Estimated CRCL calculation 56 ml/min; Estimated Glomerular Filt Rate > 60; Glucose 98 mg/dL (65-110); Potassium 3.5 mmol/L (3.4-5.0); Sodium 135 mmol/L (137-145)
[2023-01-31] MEDS: amLODIPine BESYLATE 5 MG TABLET 10 MG PO (08:14)
[2023-01-31] MEDS: ROFLUMILAST 500 MCG TABLET PO (08:14)
[2023-01-31] MEDS: MONTELUKAST SODIUM 10 MG TABLET PO (08:14)
[2023-01-31] MEDS: PANTOPRAZOLE 40 MG TABLET PO (08:15)
[2023-01-31] MEDS: LORATADINE 10 MG TABLET PO (08:15)
[2023-01-31] MEDS: BACLOFEN 10 MG TABLET PO ×3 (08:15→17:05)
[2023-01-31] MEDS: METOPROLOL TARTRATE 25 MG TABLET PO ×2 (08:15→20:12)
[2023-01-31] MEDS: FLUTICASONE/UMECLIDIN/VILANTER 100-62.5-25 MCG ELLIPTA 1 PUFF INHALATION (08:29)
--- NOTE | 2023-01-31 10:35 | PC.NURSE ---
TO GI Lab via wheelchair.
[2023-01-31] MEDS: LACTATED RINGERS 1,000 ML 150 ML IV CONT (11:00)
--- NOTE | 2023-01-31 11:12 | WPDANESEPPF ---
Anes - Initial Pre Proc Eval Procedure: Operation Date: 01/31/23 12:00 Proposed Procedures p Endoscopic Retro Cholangiopancreatogram - John Hall MD Date/Time: 01/31/23 11:12 Surgeon: Jed Fischer MD Pre Op Diagnosis: Jaundice, biliary ductal dilation Patient Data Age: 72 Gender: M Height: 1.73 m Weight: 96.1 kg Last Vital Signs Temp 36.6 C 01/31/23 10:58 Pulse 71 01/31/23 10:58 Resp 18 01/31/23 10:58 BP 118/84 01/31/23 10:58 Pulse Ox 97 01/31/23 10:58 O2 Del Method Nasal Cannula 01/31/23 10:58 O2 Flow Rate 2 01/31/23 10:58 FiO2 28 01/31/23 08:31 Allergies Allergy/AdvReac Type Severity Reaction Status Date / Time lisinopril Allergy Severe Swelling Verified 01/31/23 10:53 Penicillins Allergy Intermediate Hives / Verified 01/31/23 10:53 Red Face Sulfa (Sulfonamide Allergy Intermediate Hives / Verified 01/31/23 10:53 Antibiotics) Red Face Home Medications Medication Instructions Recorded Confirmed Type amlodipine 10 mg tablet 10 mg PO QAM 03/07/20 01/28/23 History doxazosin 8 mg tablet 8 mg PO HS 03/07/20 01/28/23 History ergocalciferol (vitamin D2) 1,250 1,250 mcg PO WEEKLY 03/07/20 01/28/23 History mcg (50,000 unit) capsule fluticasone propionate 50 1 spray intranasal DAILY PRN 03/07/20 01/28/23 History mcg/actuation nasal Congestion spray,suspension nebulizer and compressor (Easy Neb #1 ea 03/07/20 01/28/23 History Compressor Nebulizer) sildenafil 100 mg tablet 100 mg PO DAILY PRN Erectile 03/07/20 01/28/23 History Dysfunction aspirin 81 mg tablet 81 mg PO DAILY 08/04/20 01/28/23 History levocetirizine 5 mg tablet 5 mg PO HS 90 days #90 tabs 03/31/22 01/28/23 Rx montelukast 10 mg tablet 10 mg PO QAM #90 tabs 04/09/22 01/28/23 Rx (Singulair) ipratropium bromide 0.02 % 2.5 ml inhalation TID PRN 06/24/22 01/28/23 Rx solution for inhalation shortness of breath or wheezing #300 mL roflumilast 500 mcg tablet 500 mcg PO DAILY 90 days #90 tabs 07/05/22 01/28/23 Rx (Daliresp) budesonide 160 mcg-glycopyr 9 2 inh inhalation BID #32.1 grams 10/19/22 01/28/23 Rx mcg-formot 4.8 mcg/actuation HFA inhaler (Breztri Aerosphere) albuterol sulfate 2.5 mg/3 mL 2.5 mg (3 mL) inhalation Q4-6H PRN 01/17/23 01/28/23 Rx (0.083 %) solution for nebulization Shortness Of Breath Or Wheezing #1,080 mL albuterol sulfate 90 mcg/actuation 1 - 2 puff inhalation Q4-6H PRN 01/17/23 01/28/23 Rx aerosol inhaler (Ventolin HFA) shortness of breath or wheezing 90 days #25.5 grams baclofen 10 mg tablet 10 mg PO TID 01/28/23 01/28/23 History metoprolol tartrate 25 mg tablet 25 mg PO BID 01/28/23 01/28/23 History omeprazole 40 mg capsule,delayed 40 mg PO DAILY 01/28/23 01/28/23 History release Laboratory Tests 01/31/23 05:13 WBC 8.6 K/mm3 (4.5-10.0) RBC 3.67 L M/mm3 (4.6-6.20) Hgb 10.3 L g/dL (14.0-18.0) Hct 31.6 L % (42.0-52.0) MCV 86.1 fl (80-100) MCH 28.1 pg (26-34) MCHC 32.6 g/dl (32-36) RDW 16.3 H % (11.5-14.5) Plt Count 214 k/mm3 (150-375) MPV 11.2 H fl (7.4-10.4) Immature Gran % (Auto) 0.9 H % (0-0.5) Neut % (Auto) 69.2 % (45.5-73.1) Lymph % (Auto) 15.2 L % (18.3-44.2) Woodson % (Auto) 12.0 H % (2.6-8.5) Eos % (Auto) 2.3 % (0-4.4) Baso % (Auto) 0.4 % (0.2-1.2) Lymph # (Auto) 1.30 K/mm3 (0.9-3.2) Woodson # (Auto) 1.0 H K/mm3 (0.1-0.6) Eos # (Auto) 0.2 K/mm3 (0-0.3) Baso # (Auto) 0.0 K/mm3 (0.0-0.1) Abs Immat Gran (auto) 0.08 H K/mm3 (0.00-0.031) Absolute Neuts (auto) 5.9 K/mm3 (1.3-6.7) Absolute Nucleated RBC 0.0 K/mm3 (0.0-0.012) Nucleated RBC % 0.0 % (0.0-0.2) Sodium 135 L mmol/L (137-145) Potassium 3.5 mmol/L (3.4-5.0) Chloride 108 H mmol/L (98-107) Carbon Dioxide 24 mmol/L (22-30) Anion Gap 3 L mmol/L (8-16) BUN 15 mg/dL (9-20) Creatinine 1.20 mg/
--- NOTE | 2023-01-31 12:54 | PM.IMPN ---
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 I spoke with GI doctor he is recommending transfer due to possible biliary surgery and/or stent placement. Bilirubin up to 10.0 today. CA 19-9 level pending Patient accepted to [facility] under Dr. Forde. Awaiting bed availablility. (2) Gallbladder polyp: Code(s): K82.4 - Cholesterolosis of gallbladder Status: Chronic Assessment and Plan: Unfortunately this gallbladder polyp of 1.2 cm. The patient has a higher possibility of having malignancy in this gallbladder polyp due to the size of the polyp greater than 1 cm. Cholestyramine 4 mg p.o. b.i.d. p.r.n. Baclofen 10 mg t.i.d. was also started for hiccups. Cholecystectomy on hold for now. Workup for painless jaundice in process. (3) Acquired hyperbilirubinemia: Code(s): E80.6 - Other disorders of bilirubin metabolism Status: Acute Assessment and Plan: Cholestyramine 4 mg p.o. b.i.d. p.r.n. itching Baclofen 10 mg t.i.d. was also started for hiccups Cholecystectomy is the definitive treatment for this condition GI consulted due to hyperbilirubinemia. Continue to monitor. Negative hepatitis panel. Direct bilirubin elevated at 3.6 and indirect bilirubin elevated 1.3 Abdominal US revealing biliary duct dilation and 1.2 cm gallbladder wall lesion MRCP revealing severe intrahepatic and extrahepatic biliary duct dilation worsened from 11/15/2016 with no choledocholithiasis or obstructing mass. PCKD noted as well as umbilical hernia containing nonobstructive small bowel. (4) COPD (chronic obstructive pulmonary disease): Code(s): J44.9 - Chronic obstructive pulmonary disease, unspecified Status: Chronic Assessment and Plan: Continue all home meds for COPD This includes albuterol, breztri, roflumilast, fluticasone, ipratropium, montelukast Continue patient on baseline 2-3 L of oxygen Nebulizer treatment scheduled (5) Benign hypertension with chronic kidney disease: Code(s): I12.9 - Hypertensive chronic kidney disease with stage 1 through stage 4 chronic kidney disease, or unspecified chronic kidney disease Status: Chronic Assessment and Plan: Continue amlodipine, metoprolol, doxazosin (6) Chronic kidney disease, stage 2 (mild): Code(s): N18.2 - Chronic kidney disease, stage 2 (mild) Status: Chronic Assessment and Plan: Monitor Creatinine has already come down from 1.4-1.2 The remaining electrolytes have normalized (7) GERD (gastroesophageal reflux disease): Code(s): K21.9 - Gastro-esophageal reflux disease without esophagitis Status: Chronic Assessment and Plan: Continue omeprazole (8) Hepatitis C: Code(s): B19.20 - Unspecified viral hepatitis C without hepatic coma Status: Acute Assessment and Plan: Hepatitis-C antibody screen reactive. HCV RNA pending. According to patient history of hepatitis C that was ?cured?. Subjective Date/time seen: 01/31/23 12:54 Interval history: Patient doing well today with no new complaints at this time. He continues to have dark urine and pale stools along with intermittent pruritus. He denies any pain. Scheduled for ERCP today. After ERCP performed GI recommended that patient be transferred to tertiary facility for more specialized care. Call made to the transfer line. Patient accepted to [facility] and awaiting bed at this time. Exam Narrative: GENERAL: Comfortable, no acute distress HENMT: moist mucous membranes EYES: EOM intact b/l, scleral icterus NECK: no lymphadenopathy RESPIRATORY: clear to auscultation CARDIO: RRR
--- NOTE | 2023-01-31 13:45 | PC.NURSE ---
Returned from GI Lab via stretcher.
[2023-01-31] MEDS: DOXAZOSIN MESYLATE 4 MG TABLET 8 MG PO (20:12)
--- NOTE | 2023-02-01 06:50 | PM.TDS ---
Transfer Discharge Sum: Prov Provider Date of admission: 01/27/23 22:43 Primary care physician: Jose Rivera MD Admitting clinician: Jed Fischer MD Consults: 01/28/23 Consult to Physician Routine Comment: Spoke kami/ [id number] 01/28 (, [place]) Consulting Provider: John Hall splitter machine/MD group to consult: Gastroenterology Reason for consultation: Hyperbilirubinemia with biliary ductal dilatation Has provider been notified: Yes Consult to Physician Routine Comment: Spoke w/office [id number] 01/28 (, [place]) Consulting Provider: Bob Reyes splitter machine/MD group to consult: general surgery Reason for consultation: elevated bilirubin, potential cholecystectomy Has provider been notified: Yes DS: Admitting Diagnosis Discharge Date 01/31/23 Admitting Diagnosis painless jaundice DS: Discharge Diagnosis Discharge Diagnosis (1) Intraductal papillary mucinous neoplasia: Code(s): D49.0 - Neoplasm of unspecified behavior of digestive system Status: Acute (2) Gallbladder polyp: Code(s): K82.4 - Cholesterolosis of gallbladder Status: Chronic (3) Acquired hyperbilirubinemia: Code(s): E80.6 - Other disorders of bilirubin metabolism Status: Acute (4) COPD (chronic obstructive pulmonary disease): Code(s): J44.9 - Chronic obstructive pulmonary disease, unspecified Status: Chronic (5) Benign hypertension with chronic kidney disease: Code(s): I12.9 - Hypertensive chronic kidney disease with stage 1 through stage 4 chronic kidney disease, or unspecified chronic kidney disease Status: Chronic (6) Chronic kidney disease, stage 2 (mild): Code(s): N18.2 - Chronic kidney disease, stage 2 (mild) Status: Chronic (7) GERD (gastroesophageal reflux disease): Code(s): K21.9 - Gastro-esophageal reflux disease without esophagitis Status: Chronic (8) Hepatitis C: Code(s): B19.20 - Unspecified viral hepatitis C without hepatic coma Status: Acute Transfer Discharge Sum: Med Medications Active and Home Medications: Home Medications amlodipine 10 mg tablet 10 mg PO QAM 03/07/20 [History Confirmed 01/28/23] doxazosin 8 mg tablet 8 mg PO HS 03/07/20 [History Confirmed 01/28/23] ergocalciferol (vitamin D2) 1,250 mcg (50,000 unit) capsule 1,250 mcg PO WEEKLY 03/07/20 [History Confirmed 01/28/23] fluticasone propionate 50 mcg/actuation nasal spray,suspension 1 spray intranasal DAILY PRN Congestion 03/07/20 [History Confirmed 01/28/23] nebulizer and compressor (Easy Neb Compressor Nebulizer) #1 ea 03/07/20 [History Confirmed 01/28/23] sildenafil 100 mg tablet 100 mg PO DAILY PRN Erectile Dysfunction 03/07/20 [History Confirmed 01/28/23] aspirin 81 mg tablet 81 mg PO DAILY 08/04/20 [History Confirmed 01/28/23] levocetirizine 5 mg tablet 5 mg PO HS 90 days #90 tabs 03/31/22 [Rx Confirmed 01/28/23] montelukast 10 mg tablet (Singulair) 10 mg PO QAM #90 tabs 04/09/22 [Rx Confirmed 01/28/23] ipratropium bromide 0.02 % solution for inhalation 2.5 ml inhalation TID PRN shortness of breath or wheezing #300 mL 06/24/22 [Rx Confirmed 01/28/23] roflumilast 500 mcg tablet (Daliresp) 500 mcg PO DAILY 90 days #90 tabs 07/05/22 [Rx Confirmed 01/28/23] budesonide 160 mcg-glycopyr 9 mcg-formot 4.8 mcg/actuation HFA inhaler (Breztri Aerosphere) 2 inh inhalation BID #32.1 grams 10/19/22 [Rx Confirmed 01/28/23] albuterol sulfate 2.5 mg/3 mL (0.083 %) solution for nebulization 2.5 mg (3 mL) inhalation Q4-6H PRN Shortness Of Breath Or Wheezing #1,080 mL 01/17/23 [Rx Confirmed 01/28/23] albuterol sulfate 90 mcg/actuation aerosol inhaler (Ventolin HFA) 1 - 2 puff inhalation Q4-6H PRN shortness of breath or wheezing 90 days #25.5 grams 01/17/23 [Rx Confirmed 01/28/23] baclofen 10 mg tablet 10 mg PO TID 01/28/23 [History Confirmed 01/28/23] metoprolol tartrate 25 mg tablet 25 mg PO BID 01/28/23 [History Confirmed 01/28/23] omeprazole 40 mg capsule,delayed release 40 mg PO DAILY 08
[2023-02-02 05:20] LABS: CA 19-9 1269 U/mL (<34)
[2023-02-02 18:27] LABS: Hepatitis C RNA, Quant PCR <15 IU/mL
--- NOTE | 2023-02-09 09:35 | PC.NURSE ---
CA 19-9 is elevated at 1269. MAMADOU Bueno aware. Results faxed to Dr. Rivera.
== END 2023-01-31 23:58 | disposition short-term general hospital (02) | DRG 375 ==
LOC: ANHED 21:16 → ANH2MED 01-28
PROVIDERS: Internal Medicine Gastroenterology; Admitting Provider Internal Medicine; Emergency Provider Emergency Medicine; PCP Family Medicine; Visit Provider Internal Medicine Critical Care Medicine
PROC: 0FBC8ZX Excision of Ampulla of Vater, Via Natural or Artificial Opening Endoscopic, Diagnostic (ICD-10-PCS; CPT 43260; principal; 2023-01-31 12:00)
DX: D49.0 Neoplasm of unspecified behavior of digestive system (principal); Q61.3 Polycystic kidney, unspecified; D13.5 Benign neoplasm of extrahepatic bile ducts; I12.9 Hypertensive chronic kidney disease with stage 1 through stage 4 chronic kidney disease, or unspecified chronic kidney disease; N18.2 Chronic kidney disease, stage 2 (mild); J44.9 Chronic obstructive pulmonary disease, unspecified; D75.A Glucose-6-phosphate dehydrogenase (G6PD) deficiency without anemia; E80.6 Other disorders of bilirubin metabolism; B18.2 Chronic viral hepatitis C; K21.9 Gastro-esophageal reflux disease without esophagitis; K42.9 Umbilical hernia without obstruction or gangrene; N40.0 Benign prostatic hyperplasia without lower urinary tract symptoms; Z77.090 Contact with and (suspected) exposure to asbestos; G47.30 Sleep apnea, unspecified; Z79.82 Long term (current) use of aspirin; Z87.891 Personal history of nicotine dependence; Z80.0 Family history of malignant neoplasm of digestive organs; Z99.81 Dependence on supplemental oxygen
CPT/HCPCS: 36415; 74177; 74183; 74329; 76376; 76705; 80053; 80074; 80076; 81001; 82247; 82248; 83690; 85025; 86301; 87522; 88160; 88305; 93005; 94640; 99285; A9270; A9577; J0330; J2371; J2405; J2704; J7030; J7120; Q9966; Q9967

== ENCOUNTER 2023-08-24 16:15 | Emergency (ER) | payer MEDICARE, MEDICAID, SELFPAY ==
[2023-08-24] VITALS (11 sets, daily range): BP systolic 126–146; BP diastolic 72–82; PULSE 71–109; RESP 16–26; TEMP 37.2; O2SAT 91–100
--- NOTE | ~2023-08-24 | XR_ITS ---
XR chest 1V portable 08/24/2023 17:03 Indication: Shortness of breath. COPD. Emphysema. Procedure: AP portable chest Comparison: Comparison to multiple prior studies sequentially, with oldest reviewed study dated 07/26. Findings: Heart size normal. There is chronic bibasilar atelectasis/scarring. There is chronic left u pper lobes scarring. No acute focal pneumonia, edema or effusion. The lungs are hyperinflated which i s consistent with, but not diagnostic of chronic obstructive pulmonary disease. Impression: 1: No acute cardiopulmonary disease. Reviewed, dictated and finalized at location A. Impression: 1: No acute cardiopulmonary disease.
--- NOTE | 2023-08-24 16:17 | ECG_ITS ---
Measurements Intervals [place] Rate: 103 P: 55 MN: 160 QRS: 38 QRSD: 88 T: 50 QT: 322 QTc: 423 Interpretive Statements SINUS TACHYCARDIA MINIMAL Q WAVES- INFERIOR LEADS BASELINE ARTIFACT- V2, V4-V6 BORDERLINE ECG COMPARED TO ECG 01/27/2023 23:13:35 SINUS TACHYCARDIA NOW PRESENT Electronically Signed On 08-24-2023 19:43:47 CDT by Cliff Courtney D.O.
[2023-08-24] MEDS: IPRATROPIUM BR 0.02% INH SOLN 0.5 MG/2.5 ML VIAL 1 MG INHALATION (16:30)
[2023-08-24] MEDS: ALBUTEROL SULFATE NEB 2.5 MG/3 ML INH 15 MG INHALATION (16:30)
[2023-08-24] MEDS: predniSONE 20 MG TABLET 40 MG PO (16:31)
--- NOTE | 2023-08-24 16:36 | ED.SOB ---
HPI - SOB/Dyspnea General Chief Complaint: Shortness of Breath/Dyspnea Stated Complaint: SOB Time Seen by Provider: 08/24/23 16:24 History of Present Illness HPI Narrative: Patient presenting here with shortness of breath, ongoing since Tuesday, he does generally have some dyspnea on exertion but has been worse recently with a slight cough. Does use breathing treatments at home. Related Data Home Medications Medication Instructions Recorded Confirmed amlodipine 10 mg tablet 10 mg PO QAM 03/07/20 06/07/23 doxazosin 8 mg tablet 8 mg PO HS 03/07/20 06/07/23 ergocalciferol (vitamin D2) 1,250 1,250 mcg PO WEEKLY 03/07/20 06/07/23 mcg (50,000 unit) capsule fluticasone propionate 50 1 spray intranasal DAILY PRN 03/07/20 06/07/23 mcg/actuation nasal Congestion spray,suspension nebulizer and compressor (Easy Neb #1 ea 03/07/20 06/07/23 Compressor Nebulizer) sildenafil 100 mg tablet 100 mg PO DAILY PRN Erectile 03/07/20 06/07/23 Dysfunction aspirin 81 mg tablet 81 mg PO DAILY 08/04/20 06/07/23 metoprolol tartrate 25 mg tablet 25 mg PO BID 01/28/23 06/07/23 omeprazole 40 mg capsule,delayed 40 mg PO DAILY 01/28/23 06/07/23 release Allergies Allergy/AdvReac Type Severity Reaction Status Date / Time lisinopril Allergy Severe Swelling Verified 08/24/23 16:33 Penicillins Allergy Intermediate Hives / Verified 08/24/23 16:33 Red Face Sulfa (Sulfonamide Allergy Intermediate Hives / Verified 08/24/23 16:33 Antibiotics) Red Face Review of Systems Review of Systems: CONST: No fever. HEENT: No sore throat C/V: No chest pain RESP: Cough, shortness of breath GI: No abdominal pain : No dysuria. M/S: No joint pain. SKIN: No rash. NEURO: [No headache or focal numbness or weakness] PSYCH: [No depression] [facility] Past Medical History Medical History Asbestos exposure BPH (benign prostatic hyperplasia) Chronic kidney disease Chronic viral hepatitis C COPD (chronic obstructive pulmonary disease) Dependence on supplemental oxygen Elevated PSA Environmental allergies H/O nicotine dependence Hepatitis C HTN (hypertension) Nocturnal hypoxemia Obesity Sleep apnea Wears glasses Surgical History Surgical History History of ankle surgery 2016 History of back surgery Family History Family History Father Cancer Pancreatic cancer Mother Asthma Cerebrovascular accident Sibling Diabetes mellitus Hypertension Heart disease Cerebrovascular accident Cancer of colon Other Lung disease Social History Social History Smoking packs per day: 1 Smoking cigarettes per day: 20.0 Years smoked: 50 Smoking pack-years: 50.00 Smoking status: Former smoker Tobacco type: cigarettes Smoking end date: 06/13/17 Alcohol intake: former Drinks per week: 1 Alcohol use details: SCIAL DRINKER Substance use: never Substance use type: does not use Lack of Transportation: No Lack of Food: Never True Current Housing: I Have Housing Concerned About Future Housing: No Difficulty Paying Gas/Electric Bills: No Difficulty Paying for Meds: No Currently Unemployed: No Education: Associate Degree Difficulty w/ Childcare or Family Care: No Living arrangements: alone Occupation/Education: retired Gender identity (if verbalized by the patient): Male Spiritual care concerns: No Exam Narrative: EXAMINATION OF ORGAN SYSTEMS/BODY AREAS: Constitutional: Vital signs per nursing GENERAL: Having dyspnea HEAD: Normal with no signs of head trauma. EYES: EOMI, conjunctiva normal ENT: Hearing grossly intact LUNGS: Wheezing all lung meredith, tachypneic HEART: [Regular rate and rhythm] ABD: [Soft], [nontender to palpation] EXT: Normal rang
[2023-08-24 16:43] LABS: Basophils Percent Auto 0.3 % (0.2-1.2); Eosinophils Absolute Auto 0.4 K/mm3 (0-0.3); Eosinophils Percent Auto 4.2 % (0-4.4); Hematocrit 34.1 % (42.0-52.0); Hemoglobin 10.7 g/dL (14.0-18.0); Immature Granulocyte Absolute 0.04 K/mm3 (0.00-0.031); Immature Granulocyte Percent A 0.4 % (0-0.5); Lymphocytes Absolute Auto 1.26 K/mm3 (0.9-3.2); Lymphocytes Percent Auto 13.7 % (18.3-44.2); Mean Corpuscular HGB Conc 31.4 g/dl (32-36); Mean Corpuscular Hemoglobin 26.8 pg (26-34); Mean Corpuscular Volume 85.5 fl (80-100); Mean Platelet Volume 9.7 fl (7.4-10.4); Monocytes Absolute Auto 0.9 K/mm3 (0.1-0.6); Monocytes Percent Auto 9.5 % (2.6-8.5); Neutrophils Absolute Auto 6.6 K/mm3 (1.3-6.7); Neutrophils Percent Auto 71.9 % (45.5-73.1); Platelet Count Result 213 k/mm3 (150-375); Red Blood Count 3.99 M/mm3 (4.6-6.20); Red Cell Distribution Width 14.9 % (11.5-14.5); White Blood Count 9.2 K/mm3 (4.5-10.0)
[2023-08-24 16:58] LABS: Alanine Aminotransferase 12 U/L (6-50); Albumin Level 4.3 g/dL (3.5-5.1); Alkaline Phosphatase 86 U/L (38-126); Anion Gap 6 mmol/L (8-16); Aspartate Amino Transferase 19 U/L (17-59); Bilirubin,Total 0.7 mg/dL (0.2-1.3); Blood Urea Nitrogen 14 mg/dL (9-20); Calcium 9.4 mg/dL (8.4-10.2); Carbon Dioxide 26 mmol/L (22-30); Chloride 108 mmol/L (98-107); Estimated CRCL calculation 56 ml/min; Estimated Glomerular Filt Rate > 60; Glucose 101 mg/dL (65-110); Potassium 3.9 mmol/L (3.4-5.0); Sodium 140 mmol/L (137-145)
== END 2023-08-24 18:20 | disposition home or self-care (01) ==
PROVIDERS: Emergency Medicine; Emergency Provider Emergency Medicine; PCP Family Medicine
DX: J44.1 Chronic obstructive pulmonary disease with (acute) exacerbation (principal); I12.9 Hypertensive chronic kidney disease with stage 1 through stage 4 chronic kidney disease, or unspecified chronic kidney disease; N18.9 Chronic kidney disease, unspecified; N40.0 Benign prostatic hyperplasia without lower urinary tract symptoms; Z99.81 Dependence on supplemental oxygen; G47.30 Sleep apnea, unspecified
CPT/HCPCS: 36415; 71045; 80053; 85025; 93005; 94640; 99284; J7512

== ENCOUNTER 2023-08-29 15:01 | Inpatient (IN) | payer MEDICARE, MEDICAID, SELFPAY ==
[2023-08-29] VITALS (7 sets, daily range): BP systolic 118–142; BP diastolic 70–80; PULSE 78–105; RESP 15–20; TEMP 36.5; O2SAT 96–99
--- NOTE | ~2023-08-29 | XR_ITS ---
EXAMINATION: XR chest 2V Exam Date/Time: 08/29/2023 17:10 CDT HISTORY: short of breath Comparison: 08/24/2023. RESULT: Lines, tubes, and devices: None. Lungs and pleura: Emphysematous/senescent change. Left upper lung scar. Bibasilar scar/atelectasis. Cardiomediastinal silhouette: Stable. Other: No acute osseous or upper abdominal finding. IMPRESSION: No acute cardiopulmonary process. Reviewed, dictated and finalized at location K.
--- NOTE | 2023-08-29 16:18 | ED.GENADULT ---
HPI - General Adult General Chief complaint: Shortness of Breath/Dyspnea <Narcisa Levy, LEARNING AND DEVELOPMENT OFFICER - Last Filed: 08/29/23 16:26> Stated complaint: sob <Narcisa Levy LEARNING AND DEVELOPMENT OFFICER - Last Filed: 08/29/23 16:26> Time Seen by Provider: 08/29/23 16:18 <Narcisa Byers October LEARNING AND DEVELOPMENT OFFICER - Last Filed: 08/29/23 16:26> Focused HPI: Lee Cotto is a 72 y/o male with PMHx of COPD at baseline he wears 2L at rest and 3 with exertion. He states that he was here Tuesday for increased SOB and was given a treatment and steroids and he was feeling better, he finished the prednisone but since Tuesday he has been feeling worse with increased SOB , he is wearing 4L at rest and cannot walk anywhere without getting severely SOB> He also had an episode of having chest pain on tuesday. He states that he is still having chest tightness / and now having a dry cough. GENERAL: chronically unwell, HEAD: Normocephalic, atraumatic. CHEST: ? Sating 92% on 3L coarse lung sounds throughout. HEART: Regular rate and rhythm.? NEURO: ?Alert and oriented x3. Patient screened in triage and initial orders placed.? ?Additional care and disposition to be based upon?diagnostic testing and treatment. <Narcisa Levy LEARNING AND DEVELOPMENT OFFICER - Last Filed: 08/29/23 16:26> History of Present Illness HPI narrative: Patient 72-year-old gentleman who presents emergency department with chief complaint of shortness of breath. Patient was seen on Tuesday in the emergency department treated with steroids and breathing treatments the patient states he was starting to feel better until Tuesday restarted dosing his blood pressure was elevated and reported that he had some chest tightness. Patient reports he has continual coughing patient reports that he wears 2-3 L of nasal cannula oxygen but has noticed that he has increased work of breathing with ambulation. <Henri Dykes MD - Last Filed: 08/29/23 22:59> Related Data Home medications: Home Medications Medication Instructions Recorded Confirmed amlodipine 10 mg tablet 10 mg PO QAM 03/07/20 06/07/23 doxazosin 8 mg tablet 8 mg PO HS 03/07/20 06/07/23 ergocalciferol (vitamin D2) 1,250 1,250 mcg PO WEEKLY 03/07/20 06/07/23 mcg (50,000 unit) capsule fluticasone propionate 50 1 spray intranasal DAILY PRN 03/07/20 06/07/23 mcg/actuation nasal Congestion spray,suspension nebulizer and compressor (Easy Neb #1 ea 03/07/20 06/07/23 Compressor Nebulizer) sildenafil 100 mg tablet 100 mg PO DAILY PRN Erectile 03/07/20 06/07/23 Dysfunction aspirin 81 mg tablet 81 mg PO DAILY 08/04/20 06/07/23 metoprolol tartrate 25 mg tablet 25 mg PO BID 01/28/23 06/07/23 omeprazole 40 mg capsule,delayed 40 mg PO DAILY 01/28/23 06/07/23 release <Narcisa Byers October, LEARNING AND DEVELOPMENT OFFICER - Last Filed: 08/29/23 16:26> Allergies/adverse reactions: Allergies Allergy/AdvReac Type Severity Reaction Status Date / Time lisinopril Allergy Severe Swelling Verified 08/24/23 16:33 Penicillins Allergy Intermediate Hives / Verified 08/24/23 16:33 Red Face Sulfa (Sulfonamide Allergy Intermediate Hives / Verified 08/24/23 16:33 Antibiotics) Red Face <Narcisa Byers October, LEARNING AND DEVELOPMENT OFFICER - Last Filed: 08/29/23 16:26> Review of Systems Review of Systems: A 10 system review of systems was completed on the patient and is negative except for what is stated in the HPI. Nursing and ancillary documentation was reviewed. <Henir Dykes MD - Last Filed: 08/29/23 22:59> [facility] Past Medical History Medical History: Medical History Asbestos exposure BPH (benign prostatic hyperplasia) Chronic kidney disease Chronic viral hepatitis C COPD (chronic obstructive pulmonary disease) Dependence on supplemental oxygen Elevated PSA Environmental allergies H/O nicotine dependence Hepatitis C HTN (hypertension) Nocturnal hypoxemia Obesity Sleep apnea Wears glasses <Narcisa Levy, LEARNING AND DEVELOPMENT OFFICER - Last Filed:
--- NOTE | 2023-08-29 16:26 | ECG_ITS ---
Measurements Intervals [place] Rate: 91 P: 53 VT: 120 QRS: 58 QRSD: 97 T: 69 QT: 336 QTc: 415 Interpretive Statements SINUS RHYTHM BASELINE ARTIFACT- I, II, AVR, AVL, AVF, V4-V6 NORMAL ECG COMPARED TO ECG 08/24/2023 16:24:14 SINUS RHYTHM NOW PRESENT Electronically Signed On 08-29-2023 20:33:39 CDT by Cliff Courtney D.O.
[2023-08-29] MEDS: IPRATROPIUM 0.5 MG/ALBUTEROL SULFATE 2.5 MG AMPUL.NEB 3 ML INHALATION ×2 (16:45→19:56)
[2023-08-29] MEDS: predniSONE 20 MG TABLET 60 MG PO (20:01)
[2023-08-29 20:16] LABS: Influenza A QL RT-PCR Negative (Negative); Influenza B QL RT-PCR Negative (Negative); RSV RNA, RT-PCR Negative (Negative); SARS-CoV-2 RNA PCR Negative (Negative)
[2023-08-29 20:33] LABS: Basophils Percent Auto 0.3 % (0.2-1.2); Eosinophils Absolute Auto 0.2 K/mm3 (0-0.3); Eosinophils Percent Auto 1.6 % (0-4.4); Hematocrit 35.9 % (42.0-52.0); Immature Granulocyte Absolute 0.12 K/mm3 (0.00-0.031); Lymphocytes Absolute Auto 2.14 K/mm3 (0.9-3.2); Lymphocytes Percent Auto 17.8 % (18.3-44.2); Mean Corpuscular HGB Conc 30.6 g/dl (32-36); Mean Corpuscular Hemoglobin 26.4 pg (26-34); Mean Corpuscular Volume 86.1 fl (80-100); Mean Platelet Volume 9.9 fl (7.4-10.4); Monocytes Absolute Auto 1.2 K/mm3 (0.1-0.6); Monocytes Percent Auto 10.1 % (2.6-8.5); Neutrophils Absolute Auto 8.3 K/mm3 (1.3-6.7); Neutrophils Percent Auto 69.2 % (45.5-73.1); Platelet Count Result 235 k/mm3 (150-375); Red Blood Count 4.17 M/mm3 (4.6-6.20)
[2023-08-29 20:47] LABS: Alanine Aminotransferase 26 U/L (6-50); Albumin Level 4.1 g/dL (3.5-5.1); Alkaline Phosphatase 79 U/L (38-126); Anion Gap 5 mmol/L (8-16); Aspartate Amino Transferase 28 U/L (17-59); Bilirubin,Total 0.6 mg/dL (0.2-1.3); Blood Urea Nitrogen 20 mg/dL (9-20); Calcium 9.4 mg/dL (8.4-10.2); Carbon Dioxide 29 mmol/L (22-30); Chloride 104 mmol/L (98-107); Estimated CRCL calculation 61 ml/min; Estimated Glomerular Filt Rate > 60; Glucose 94 mg/dL (65-110); Sodium 138 mmol/L (137-145)
[2023-08-29 20:58] LABS: NT Pro B Type Natriuretic Pept 33 pg/mL (19.9-100); Troponin I < 0.012 ng/mL (0.000-0.034)
--- NOTE | 2023-08-29 22:54 | PC.NURSE ---
Ambulation test performed; patient extremely short of breath and desaturation noted. EDP aware.
[2023-08-30] VITALS (18 sets, daily range): BP systolic 129–149; BP diastolic 71–89; PULSE 69–101; RESP 18–20; TEMP 36.2–36.9; O2SAT 93–99; BMI 28.4
--- NOTE | 2023-08-30 00:03 | ADMGEN ---
This patient, Lee Cotto Sr., was admitted to [facility] Room 313-01 at 23:55. Patient/family oriented to hospital policies and general routines including ID bracelet, bed and alarms, visiting hours, pain management, procedures, bathroom and other care routines, personal items, smoking policy, room service/diet, and visiting hours. Information on how to activate the Rapid Response Team has been discussed. Patient/Family are encouraged to report perceived risks to care and to ask questions if they do not understand what they are told or what they should do.
[2023-08-30] MEDS: IPRATROPIUM 0.5 MG/ALBUTEROL SULFATE 2.5 MG AMPUL.NEB 3 ML INHALATION ×4 (02:16→21:06)
[2023-08-30 07:45] LABS: Basophils Percent Auto 0.2 % (0.2-1.2); Hematocrit 38.1 % (42.0-52.0); Hemoglobin 11.5 g/dL (14.0-18.0); Immature Granulocyte Absolute 0.11 K/mm3 (0.00-0.031); Immature Granulocyte Percent A 1.2 % (0-0.5); Lymphocytes Absolute Auto 0.55 K/mm3 (0.9-3.2); Lymphocytes Percent Auto 5.8 % (18.3-44.2); Mean Corpuscular HGB Conc 30.2 g/dl (32-36); Mean Corpuscular Hemoglobin 26.3 pg (26-34); Mean Platelet Volume 9.1 fl (7.4-10.4); Monocytes Absolute Auto 0.5 K/mm3 (0.1-0.6); Monocytes Percent Auto 5.6 % (2.6-8.5); Neutrophils Absolute Auto 8.3 K/mm3 (1.3-6.7); Neutrophils Percent Auto 87.2 % (45.5-73.1); Platelet Count Result 236 k/mm3 (150-375); Red Blood Count 4.38 M/mm3 (4.6-6.20); Red Cell Distribution Width 14.7 % (11.5-14.5); White Blood Count 9.5 K/mm3 (4.5-10.0)
[2023-08-30] MEDS: methylPREDNISolone SOD SUCC 125 MG VIAL 60 MG IV PUSH ×3 (07:48→20:28)
[2023-08-30 07:54] LABS: Lactic Acid Reflex 1.5 mmol/L (0.7-2.0)
[2023-08-30 07:55] LABS: Anion Gap 4 mmol/L (8-16); Blood Urea Nitrogen 21 mg/dL (9-20); Calcium 9.8 mg/dL (8.4-10.2); Carbon Dioxide 31 mmol/L (22-30); Chloride 105 mmol/L (98-107); Estimated CRCL calculation 52 ml/min; Estimated Glomerular Filt Rate > 60; Glucose 108 mg/dL (65-110); Potassium 4.8 mmol/L (3.4-5.0); Sodium 140 mmol/L (137-145)
[2023-08-30] MEDS: ASPIRIN 81 MG ENTERIC TABLET PO (08:35)
[2023-08-30] MEDS: MONTELUKAST SODIUM 10 MG TABLET PO (08:35)
[2023-08-30] MEDS: METOPROLOL TARTRATE 25 MG TABLET PO ×2 (08:35→20:25)
[2023-08-30] MEDS: amLODIPine BESYLATE 5 MG TABLET 10 MG PO (08:35)
[2023-08-30] MEDS: PANTOPRAZOLE 40 MG TABLET PO ×2 (08:35→20:24)
[2023-08-30] MEDS: ENOXAPARIN 40 MG/0.4 ML SYRINGE SUB-Q (08:36)
[2023-08-30] MEDS: BUDESONIDE RESPULE NEB 0.5 MG/2 ML AMP 0.25 MG INHALATION (09:41)
--- NOTE | 2023-08-30 12:17 | PM.IMHP ---
H&P: HPI History of Present Illness Date/Time: 08/30/23 12:17 Chief Complaint: dyspnea Narrative: Patient is a 72-year-old man with PMH of COPD on home oxygen of 2L at rest and 3L with exertion, hypertension, polycystic kidney disease, hepatitis-C, and JIMMY. He has a bile duct dumping issue, has fungus around the liver catheter placed in January at [facility] in which he has no current issues with. He was just seen in the ER here on 08/23 for reports of shortness of breath, ongoing since Tuesday. He does generally have some dyspnea on exertion but has been worse recently with a slight cough. He denies any fevers, chills, malaise, chest pain. His respiratory panel was negative and CXR negative for any acute process or PNA. He was scheduled to see Dr. Cuba in clinic today who was notified of his present admission. Labs are unremarkable this morning, WBC WNL and kidney function seems to be stable. He sees Dr. Mckay for pulmonology every 6 months, last visit in May. He is being treated for a COPD exacerbation as he is requiring 3-4L at rest. He will receive scheduled duonebs, IV steroids and PT/OT ordered for inpatient. Review of Systems Review of Systems: All systems reviewed & are unremarkable except as noted in HPI and below PMFSH Past Medical History Medical History Asbestos exposure BPH (benign prostatic hyperplasia) Chronic kidney disease Chronic viral hepatitis C COPD (chronic obstructive pulmonary disease) Dependence on supplemental oxygen Elevated PSA Environmental allergies H/O nicotine dependence Hepatitis C HTN (hypertension) Nocturnal hypoxemia Obesity Sleep apnea Wears glasses Surgical History Surgical History History of ankle surgery 2016 History of back surgery Family History Family History Father Cancer Pancreatic cancer Mother Asthma Cerebrovascular accident Sibling Diabetes mellitus Hypertension Heart disease Cerebrovascular accident Cancer of colon Other Lung disease Social History Social History Smoking packs per day: 1 Smoking cigarettes per day: 20.0 Years smoked: 50 Smoking pack-years: 50.00 Smoking status: Former smoker Alcohol intake: former Alcohol use details: SCIAL DRINKER Substance use: never Substance use type: does not use Do You Feel Safe in your Home?: Yes Lack of Transportation: No Lack of Food: Never True Current Housing: I Have Housing Concerned About Future Housing: No Difficulty Paying Gas/Electric Bills: No Difficulty Paying for Meds: No Currently Unemployed: No Education: Associate Degree Difficulty w/ Childcare or Family Care: No Living arrangements: alone Occupation/Education: retired Gender identity (if verbalized by the patient): Male Spiritual care concerns: No Meds Home Medications and Allergies Home Medications Medication Instructions Recorded Confirmed Type amlodipine 10 mg tablet 10 mg PO QAM 03/07/20 08/30/23 History doxazosin 8 mg tablet 8 mg PO HS 03/07/20 08/30/23 History ergocalciferol (vitamin D2) 1,250 1,250 mcg PO WEEKLY 03/07/20 08/30/23 History mcg (50,000 unit) capsule fluticasone propionate 50 1 spray intranasal DAILY PRN 03/07/20 08/30/23 History mcg/actuation nasal Congestion spray,suspension nebulizer and compressor (Easy Neb #1 ea 03/07/20 08/30/23 History Compressor Nebulizer) sildenafil 100 mg tablet 100 mg PO DAILY PRN Erectile 03/07/20 08/30/23 History Dysfunction aspirin 81 mg tablet 81 mg PO DAILY 08/04/20 08/30/23 History ipratropium bromide 0.02 % 2.5 ml inhalation TID PRN 06/24/22 08/30/23 Rx solution for inhalation shortness of breath or wheezing #300 mL metoprolol tartrate 25 mg tablet 25 mg PO BID
[2023-08-30] MEDS: DOXAZOSIN MESYLATE 4 MG TABLET 8 MG PO (20:23)
[2023-08-30] MEDS: ROFLUMILAST 500 MCG TABLET PO (20:24)
[2023-08-30] MEDS: LORATADINE 10 MG TABLET PO (20:25)
[2023-08-31] VITALS (16 sets, daily range): BP systolic 102–136; BP diastolic 53–76; PULSE 65–107; RESP 16–20; TEMP 36.5–36.6; O2SAT 94–97
[2023-08-31] MEDS: IPRATROPIUM 0.5 MG/ALBUTEROL SULFATE 2.5 MG AMPUL.NEB 3 ML INHALATION ×4 (02:05→20:01)
[2023-08-31] MEDS: methylPREDNISolone SOD SUCC 125 MG VIAL 60 MG IV PUSH ×3 (05:17→20:37)
[2023-08-31 07:05] LABS: Basophils Percent Auto 0.1 % (0.2-1.2); Hematocrit 36.7 % (42.0-52.0); Hemoglobin 11.3 g/dL (14.0-18.0); Immature Granulocyte Absolute 0.14 K/mm3 (0.00-0.031); Immature Granulocyte Percent A 1.1 % (0-0.5); Lymphocytes Absolute Auto 0.54 K/mm3 (0.9-3.2); Lymphocytes Percent Auto 4.1 % (18.3-44.2); Mean Corpuscular HGB Conc 30.8 g/dl (32-36); Mean Corpuscular Hemoglobin 26.6 pg (26-34); Mean Corpuscular Volume 86.4 fl (80-100); Monocytes Absolute Auto 0.9 K/mm3 (0.1-0.6); Neutrophils Absolute Auto 11.6 K/mm3 (1.3-6.7); Neutrophils Percent Auto 87.7 % (45.5-73.1); Platelet Count Result 232 k/mm3 (150-375); Red Blood Count 4.25 M/mm3 (4.6-6.20); Red Cell Distribution Width 14.8 % (11.5-14.5); White Blood Count 13.2 K/mm3 (4.5-10.0)
[2023-08-31 07:18] LABS: Anion Gap 2 mmol/L (8-16); Blood Urea Nitrogen 28 mg/dL (9-20); Calcium 9.7 mg/dL (8.4-10.2); Carbon Dioxide 32 mmol/L (22-30); Chloride 105 mmol/L (98-107); Estimated CRCL calculation 56 ml/min; Estimated Glomerular Filt Rate > 60; Glucose 120 mg/dL (65-110); Potassium 4.6 mmol/L (3.4-5.0); Sodium 139 mmol/L (137-145)
[2023-08-31] MEDS: BUDESONIDE RESPULE NEB 0.5 MG/2 ML AMP 0.25 MG INHALATION ×2 (07:32→20:01)
[2023-08-31] MEDS: METOPROLOL TARTRATE 25 MG TABLET PO ×2 (08:49→20:37)
[2023-08-31] MEDS: ENOXAPARIN 40 MG/0.4 ML SYRINGE SUB-Q (08:49)
[2023-08-31] MEDS: amLODIPine BESYLATE 5 MG TABLET 10 MG PO (08:49)
[2023-08-31] MEDS: PANTOPRAZOLE 40 MG TABLET PO ×2 (08:49→20:37)
[2023-08-31] MEDS: MONTELUKAST SODIUM 10 MG TABLET PO (08:49)
[2023-08-31] MEDS: ASPIRIN 81 MG ENTERIC TABLET PO (08:49)
[2023-08-31] MEDS: FLUTICASONE PROPIONATE 0.05% NA SPR 16 GM BTL (*BKC) 1 SPRAY NASAL (13:14)
--- NOTE | 2023-08-31 14:51 | PM.IMPN ---
Progress Note: A&P Assessment and Plan (1) Acute exacerbation of chronic obstructive pulmonary disease: Code(s): J44.1 - Chronic obstructive pulmonary disease with (acute) exacerbation Status: Acute Assessment and Plan: CXR showed emphysematous/senescent change. Left upper lung scar. Bibasilar scar/atelectasis. No acute cardiopulmonary process. Respiratory panel was negative WBC 9.5 this am, no signs of infectious process currently 3L O2 NC, baseline is 2L at rest Duonebs Q6h IV Solu-medrol Q8h 08/30: WBC is 13.2, likely reactive from steroids. Still requiring 3 L nasal cannula and still dyspneic with minimal exertion. His wheezing has resolved. Starting on Levaquin IV today. (2) Benign hypertension with chronic kidney disease: Code(s): I12.9 - Hypertensive chronic kidney disease with stage 1 through stage 4 chronic kidney disease, or unspecified chronic kidney disease Status: Chronic Assessment and Plan: continue home meds (3) Chronic kidney disease, stage 2 (mild): Code(s): N18.2 - Chronic kidney disease, stage 2 (mild) Status: Chronic Assessment and Plan: Follows with Dr. Cuba - scheduled appointment for today in clinic notified of hospitalization creatinine 1.10, eGFR >60 continue to trend and monitor 08/30: Labs reviewed Plan Feeding: Heart healthy with Ensure Analgesia: Tylenol Thromboembolic prophylaxis: Lovenox Ulcer prophylaxis: Protonix Glycemic control: Bowel regimen: Lines: PIV Antibiotics: Levaquin Disposition: Home when clinically improved Subjective Date/time seen: 08/31/23 14:51 Interval history: HPI obtained from the chart, Patient is a 72-year-old man with PMH of COPD on home oxygen of 2L at rest and 3L with exertion, hypertension, polycystic kidney disease, hepatitis-C, and JIMMY.? He has a bile duct dumping issue, has fungus around the liver catheter placed in January at [facility] in which he has no current issues with. He was just seen in the ER here on 08/23 for reports of shortness of breath, ongoing since Tuesday. He does generally have some dyspnea on exertion but has been worse recently with a slight cough. He denies any fevers, chills, malaise, chest pain. His respiratory panel was negative and CXR negative for any acute process or PNA. He was scheduled to see Dr. Cuba in clinic today who was notified of his present admission. Labs are unremarkable this morning, WBC WNL and kidney function seems to be stable. He sees Dr. Mckay for pulmonology every 6 months, last visit in May. He is being treated for a COPD exacerbation as he is requiring 3-4L at rest. He will receive scheduled duonebs, IV steroids and PT/OT ordered for inpatient. Interval history: 08/30: Mr Cotto is seen sitting on the edge of the bed eating his lunch. He states that his breathing has improved since Tuesday but he is not back to his baseline yet. Normally he is able to ambulate approximately 50-75 feet without becoming dyspneic. Today he ambulated to the restroom to wash up and had the pauses multiple times to catch his breath. He is able to speak in short sentences. The chest pressure he was experiencing on admission has resolved. He is still 3 L O2 at rest. Normally he is able to be 2 L at rest. His wheezing is much improved. Review of Systems Review of Systems: All systems reviewed & are unremarkable except as noted in HPI and below Exam Narrative: General: well appearing, well developed, well nourished, appears stated age. HEENT: normocephalic, atraumatic. Mucous membranes moist. EOMI, PERRLA, bilateral sclera jaundice, no conjunctival injection. Neck supple without JVD, lymphadenopathy, or bruit. Respiratory: clear to auscultation bilaterally but diminished. No rales/rhonic/wheezes. Cardiovascular: Regular rate and rhythm, normal S1-S2 upon auscultation. No murmurs, rubs, or clicks. PMI is nondisplaced, capillary re-fill less than 3 s
[2023-08-31] MEDS: levoFLOXacin 750 MG/D5W 150 ML 750 MG/150 ML BAG 100 MG IVPB (16:29)
[2023-08-31] MEDS: DOXAZOSIN MESYLATE 4 MG TABLET 8 MG PO (20:36)
[2023-08-31] MEDS: ROFLUMILAST 500 MCG TABLET PO (20:36)
[2023-08-31] MEDS: LORATADINE 10 MG TABLET PO (20:37)
[2023-09-01] VITALS (18 sets, daily range): BP systolic 118–132; BP diastolic 67–81; PULSE 77–103; RESP 16–18; TEMP 36.2–36.9; O2SAT 93–97
--- NOTE | 2023-09-01 01:55 | PC.NURSE ---
Pt biliary tube draining bright yellow bile and soiling dressing. Upon visual inspection, the suture holding the tube in place appears to be misplaced. Pt states this has happened before, and when it did he had to have the tube reinserted. Dressing changed x2, and pt had a family member bring a drainage bag to him from home. Hospitalist made aware. Pt states he called and left a message with the doctor he sees at [facility] for the tube.
[2023-09-01] MEDS: IPRATROPIUM 0.5 MG/ALBUTEROL SULFATE 2.5 MG AMPUL.NEB 3 ML INHALATION ×4 (02:09→20:39)
[2023-09-01] MEDS: methylPREDNISolone SOD SUCC 125 MG VIAL 60 MG IV PUSH ×3 (06:21→20:31)
--- NOTE | 2023-09-01 08:19 | PM.IMPN ---
Progress Note: A&P Assessment and Plan (1) Acute exacerbation of chronic obstructive pulmonary disease: Code(s): J44.1 - Chronic obstructive pulmonary disease with (acute) exacerbation Status: Acute Assessment and Plan: CXR showed emphysematous/senescent change. Left upper lung scar. Bibasilar scar/atelectasis. No acute cardiopulmonary process. Respiratory panel was negative WBC 9.5 this am, no signs of infectious process currently 3L O2 NC, baseline is 2L at rest Duonebs Q6h IV Solu-medrol Q8h 08/30: WBC is 13.2, likely reactive from steroids. Still requiring 3 L nasal cannula and still dyspneic with minimal exertion. His wheezing has resolved. Starting on Levaquin IV today. 08/31: Leukocytosis remained stable at 14.8 suspect reactive from steroids. Wheezing has has resolved. (2) Benign hypertension with chronic kidney disease: Code(s): I12.9 - Hypertensive chronic kidney disease with stage 1 through stage 4 chronic kidney disease, or unspecified chronic kidney disease Status: Chronic Assessment and Plan: continue home meds (3) Chronic kidney disease, stage 2 (mild): Code(s): N18.2 - Chronic kidney disease, stage 2 (mild) Status: Chronic Assessment and Plan: Follows with Dr. Cuba - scheduled appointment for today in clinic notified of hospitalization creatinine 1.10, eGFR >60 continue to trend and monitor 08/30: Labs reviewed (4) Biliary tube migration: Code(s): T85.520A - Displacement of bile duct prosthesis, initial encounter Status: Acute Assessment and Plan: Patient has biliary tube that was placed in 01/2023 at [facility]. He has had it exchanged several times. Last night, 08/30, it started leaking. There is concerns that it is displaced. 08/31: He is scheduled at 1:00 p.m. tomorrow for drain exchange. Plan Feeding: Heart healthy with Ensure Analgesia: Tylenol Thromboembolic prophylaxis: Lovenox Ulcer prophylaxis: Protonix Glycemic control: Bowel regimen: Lines: PIV Antibiotics: Levaquin Disposition: Home when clinically improved Subjective Date/time seen: 09/01/23 08:19 Interval history: HPI obtained from the chart, Patient is a 72-year-old man with PMH of COPD on home oxygen of 2L at rest and 3L with exertion, hypertension, polycystic kidney disease, hepatitis-C, and JIMMY.? He has a bile duct dumping issue, has fungus around the liver catheter placed in January at [facility] in which he has no current issues with. He was just seen in the ER here on 08/23 for reports of shortness of breath, ongoing since Tuesday. He does generally have some dyspnea on exertion but has been worse recently with a slight cough. He denies any fevers, chills, malaise, chest pain. His respiratory panel was negative and CXR negative for any acute process or PNA. He was scheduled to see Dr. Cuba in clinic today who was notified of his present admission. Labs are unremarkable this morning, WBC WNL and kidney function seems to be stable. He sees Dr. Mckay for pulmonology every 6 months, last visit in May. He is being treated for a COPD exacerbation as he is requiring 3-4L at rest. He will receive scheduled duonebs, IV steroids and PT/OT ordered for inpatient. Interval history: 08/30: Mr Cotto is seen sitting on the edge of the bed eating his lunch. He states that his breathing has improved since Tuesday but he is not back to his baseline yet. Normally he is able to ambulate approximately 50-75 feet without becoming dyspneic. Today he ambulated to the restroom to wash up and had the pauses multiple times to catch his breath. He is able to speak in short sentences. The chest pressure he was experiencing on admission has resolved. He is still 3 L O2 at rest. Normally he is able to be 2 L at rest. His wheezing is much improved. 08/31: Patient reports that this stitch to his right upper quadrant biliary drain broke and his biliary drain has been displ
[2023-09-01] MEDS: amLODIPine BESYLATE 5 MG TABLET 10 MG PO (08:43)
[2023-09-01] MEDS: ASPIRIN 81 MG ENTERIC TABLET PO (08:43)
[2023-09-01] MEDS: MONTELUKAST SODIUM 10 MG TABLET PO (08:43)
[2023-09-01] MEDS: PANTOPRAZOLE 40 MG TABLET PO ×2 (08:43→20:31)
[2023-09-01] MEDS: METOPROLOL TARTRATE 25 MG TABLET PO ×2 (08:43→20:31)
[2023-09-01] MEDS: ENOXAPARIN 40 MG/0.4 ML SYRINGE SUB-Q (08:45)
[2023-09-01] MEDS: ERGOCALCIFEROL 50,000 UNITS CAPSULE 50000 UNITS PO (08:45)
[2023-09-01 08:59] LABS: Basophils Percent Auto 0.2 % (0.2-1.2); Hematocrit 37.2 % (42.0-52.0); Hemoglobin 11.4 g/dL (14.0-18.0); Immature Granulocyte Absolute 0.19 K/mm3 (0.00-0.031); Immature Granulocyte Percent A 1.3 % (0-0.5); Lymphocytes Absolute Auto 0.31 K/mm3 (0.9-3.2); Lymphocytes Percent Auto 2.1 % (18.3-44.2); Mean Corpuscular HGB Conc 30.6 g/dl (32-36); Mean Corpuscular Hemoglobin 26.6 pg (26-34); Mean Corpuscular Volume 86.7 fl (80-100); Mean Platelet Volume 9.7 fl (7.4-10.4); Monocytes Absolute Auto 1.1 K/mm3 (0.1-0.6); Monocytes Percent Auto 7.6 % (2.6-8.5); Neutrophils Absolute Auto 13.2 K/mm3 (1.3-6.7); Neutrophils Percent Auto 88.8 % (45.5-73.1); Platelet Count Result 238 k/mm3 (150-375); Red Blood Count 4.29 M/mm3 (4.6-6.20); Red Cell Distribution Width 15.1 % (11.5-14.5); White Blood Count 14.8 K/mm3 (4.5-10.0)
[2023-09-01 09:13] LABS: INR 0.9; Prothrombin Time 13.1 Seconds (11.1-14.7)
[2023-09-01 10:02] LABS: Anisocytosis 1+; Ovalocytes 1+; Platelet Estimate Adequate (Adequate); Schistocytes None Seen
[2023-09-01 10:03] LABS: Alanine Aminotransferase 27 U/L (6-50); Alkaline Phosphatase 68 U/L (38-126); Anion Gap 3 mmol/L (8-16); Aspartate Amino Transferase 23 U/L (17-59); Bilirubin,Total 0.7 mg/dL (0.2-1.3); Blood Urea Nitrogen 32 mg/dL (9-20); Calcium 9.3 mg/dL (8.4-10.2); Carbon Dioxide 29 mmol/L (22-30); Chloride 107 mmol/L (98-107); Estimated CRCL calculation 52 ml/min; Estimated Glomerular Filt Rate > 60; Glucose 109 mg/dL (65-110); Potassium 4.4 mmol/L (3.4-5.0); Sodium 139 mmol/L (137-145)
[2023-09-01] MEDS: BUDESONIDE RESPULE NEB 0.5 MG/2 ML AMP 0.25 MG INHALATION ×2 (10:05→20:40)
[2023-09-01] MEDS: FLUTICASONE PROPIONATE 0.05% NA SPR 16 GM BTL (*BKC) 1 SPRAY NASAL (13:43)
[2023-09-01] MEDS: levoFLOXacin 750 MG/D5W 150 ML 750 MG/150 ML BAG 100 MG IVPB (16:13)
[2023-09-01] MEDS: ROFLUMILAST 500 MCG TABLET PO (20:31)
[2023-09-01] MEDS: DOXAZOSIN MESYLATE 4 MG TABLET 8 MG PO (20:31)
[2023-09-01] MEDS: LORATADINE 10 MG TABLET PO (20:31)
[2023-09-02] VITALS (7 sets, daily range): BP systolic 120; BP diastolic 72; PULSE 71–103; RESP 13–18; TEMP 36.7; O2SAT 95
[2023-09-02] MEDS: IPRATROPIUM 0.5 MG/ALBUTEROL SULFATE 2.5 MG AMPUL.NEB 3 ML INHALATION ×2 (02:27→07:25)
[2023-09-02] MEDS: methylPREDNISolone SOD SUCC 125 MG VIAL 60 MG IV PUSH (05:55)
[2023-09-02 06:32] LABS: Basophils Percent Auto 0.2 % (0.2-1.2); Hematocrit 36.4 % (42.0-52.0); Hemoglobin 11.1 g/dL (14.0-18.0); Immature Granulocyte Absolute 0.24 K/mm3 (0.00-0.031); Immature Granulocyte Percent A 1.9 % (0-0.5); Lymphocytes Absolute Auto 0.38 K/mm3 (0.9-3.2); Lymphocytes Percent Auto 2.9 % (18.3-44.2); Mean Corpuscular HGB Conc 30.5 g/dl (32-36); Mean Corpuscular Hemoglobin 26.4 pg (26-34); Mean Corpuscular Volume 86.5 fl (80-100); Mean Platelet Volume 9.3 fl (7.4-10.4); Monocytes Absolute Auto 1.2 K/mm3 (0.1-0.6); Monocytes Percent Auto 9.4 % (2.6-8.5); Neutrophils Absolute Auto 11.1 K/mm3 (1.3-6.7); Neutrophils Percent Auto 85.6 % (45.5-73.1); Platelet Count Result 220 k/mm3 (150-375); Red Blood Count 4.21 M/mm3 (4.6-6.20); White Blood Count 12.9 K/mm3 (4.5-10.0)
[2023-09-02 06:45] LABS: Alanine Aminotransferase 35 U/L (6-50); Albumin Level 3.9 g/dL (3.5-5.1); Alkaline Phosphatase 64 U/L (38-126); Anion Gap 4 mmol/L (8-16); Aspartate Amino Transferase 25 U/L (17-59); Bilirubin,Total 0.7 mg/dL (0.2-1.3); Blood Urea Nitrogen 32 mg/dL (9-20); Carbon Dioxide 29 mmol/L (22-30); Chloride 108 mmol/L (98-107); Estimated CRCL calculation 48 ml/min; Estimated Glomerular Filt Rate 60; Glucose 118 mg/dL (65-110); Potassium 4.4 mmol/L (3.4-5.0); Sodium 141 mmol/L (137-145)
--- NOTE | 2023-09-02 07:21 | PM.DS ---
DS: Admitting Diagnosis Discharge Date 09-01 Admitting Diagnosis Shortness of breath DS: Discharge Diagnosis Discharge Diagnosis (1) Acute exacerbation of chronic obstructive pulmonary disease: Code(s): J44.1 - Chronic obstructive pulmonary disease with (acute) exacerbation Status: Acute Assessment and Plan: CXR showed emphysematous/senescent change. Left upper lung scar. Bibasilar scar/atelectasis. No acute cardiopulmonary process. Respiratory panel was negative WBC 9.5 this am, no signs of infectious process currently 3L O2 NC, baseline is 2L at rest Duonebs Q6h IV Solu-medrol Q8h 08/30: WBC is 13.2, likely reactive from steroids. Still requiring 3 L nasal cannula and still dyspneic with minimal exertion. His wheezing has resolved. Starting on Levaquin IV today. 08/31: Leukocytosis remained stable at 14.8 suspect reactive from steroids. Wheezing has has resolved. (2) Benign hypertension with chronic kidney disease: Code(s): I12.9 - Hypertensive chronic kidney disease with stage 1 through stage 4 chronic kidney disease, or unspecified chronic kidney disease Status: Chronic Assessment and Plan: continue home meds (3) Chronic kidney disease, stage 2 (mild): Code(s): N18.2 - Chronic kidney disease, stage 2 (mild) Status: Chronic Assessment and Plan: Follows with Dr. Cuba - scheduled appointment for today in clinic notified of hospitalization creatinine 1.10, eGFR >60 continue to trend and monitor 08/30: Labs reviewed (4) Biliary tube migration: Code(s): T85.520A - Displacement of bile duct prosthesis, initial encounter Status: Acute Assessment and Plan: Patient has biliary tube that was placed in 01/2023 at [facility]. He has had it exchanged several times. Last night, 08/30, it started leaking. There is concerns that it is displaced. 08/31: He is scheduled at 1:00 p.m. tomorrow for drain exchange. Plan Feeding: Heart healthy with Ensure Analgesia: Tylenol Thromboembolic prophylaxis: Lovenox Ulcer prophylaxis: Protonix Glycemic control: Bowel regimen: Lines: PIV Antibiotics: Levaquin Disposition: Home when clinically improved DS: Summary Hospital Course Reason for hospitalization: COPD exacerbation Hospital Course: Patient is a 72-year-old man with PMH of COPD on home oxygen of 2L at rest and 3L with exertion, hypertension, polycystic kidney disease, hepatitis-C, and JIMMY.? He has a bile duct dumping issue, has fungus around the liver catheter placed in January at [facility] in which he has no current issues with. He was just seen in the ER here on 08/23 for reports of shortness of breath, ongoing since Tuesday. He does generally have some dyspnea on exertion but has been worse recently with a slight cough. He denies any fevers, chills, malaise, chest pain. His respiratory panel was negative and CXR negative for any acute process or PNA. He was scheduled to see Dr. Cuba in clinic today who was notified of his present admission. Labs are unremarkable this morning, WBC WNL and kidney function seems to be stable. He sees Dr. Mckay for pulmonology every 6 months, last visit in May. He is being treated for a COPD exacerbation as he is requiring 3-4L at rest. He will receive scheduled duonebs, IV steroids and PT/OT ordered for inpatient. Interval history: 08/30:? Mr Cotto is seen sitting on the edge of the bed eating his lunch.? He states that his breathing has improved since Tuesday but he is not back to his baseline yet.? Normally he is able to ambulate approximately 50-75 feet without becoming dyspneic.? Today he ambulated to the restroom to wash up and had the pauses multiple times to catch his breath.? He is able to speak in short sentences.? The chest pressure he was experiencing on admission has resolved.? He is still 3 L O2 at rest.? Normally he is able to be 2 L at rest.? His wheezing is much improved. 08/31:? Patient reports that this
[2023-09-02] MEDS: BUDESONIDE RESPULE NEB 0.5 MG/2 ML AMP 0.25 MG INHALATION (07:25)
[2023-09-02] MEDS: METOPROLOL TARTRATE 25 MG TABLET PO (08:55)
[2023-09-02] MEDS: levoFLOXacin 750 MG TABLET PO (08:55)
[2023-09-02] MEDS: amLODIPine BESYLATE 5 MG TABLET 10 MG PO (08:55)
[2023-09-02] MEDS: predniSONE 20 MG TABLET 40 MG PO (08:56)
[2023-09-02] MEDS: MONTELUKAST SODIUM 10 MG TABLET PO (08:56)
[2023-09-02] MEDS: PANTOPRAZOLE 40 MG TABLET PO (08:56)
[2023-09-02] MEDS: ASPIRIN 81 MG ENTERIC TABLET PO (08:56)
[2023-09-02] MEDS: ENOXAPARIN 40 MG/0.4 ML SYRINGE SUB-Q (09:32)
== END 2023-09-02 10:00 | disposition home or self-care (01) | DRG 191 ==
LOC: ANHED 22:59 → ANH3MEDSUR 23:41
PROVIDERS: Nurse Practitioner; Nurse Practitioner Family; Admitting Provider Internal Medicine; Emergency Provider Emergency Medicine; PCP Family Medicine; Visit Provider Nurse Practitioner Acute Care
DX: J44.1 Chronic obstructive pulmonary disease with (acute) exacerbation (principal); T85.520A Displacement of bile duct prosthesis, initial encounter; I12.9 Hypertensive chronic kidney disease with stage 1 through stage 4 chronic kidney disease, or unspecified chronic kidney disease; N18.2 Chronic kidney disease, stage 2 (mild); N40.0 Benign prostatic hyperplasia without lower urinary tract symptoms; N28.1 Cyst of kidney, acquired; B18.2 Chronic viral hepatitis C; E66.9 Obesity, unspecified; G47.30 Sleep apnea, unspecified; G47.36 Sleep related hypoventilation in conditions classified elsewhere; Z20.822 Contact with and (suspected) exposure to COVID-19; Z77.090 Contact with and (suspected) exposure to asbestos; Z99.81 Dependence on supplemental oxygen; Z79.82 Long term (current) use of aspirin; Z87.891 Personal history of nicotine dependence
CPT/HCPCS: 36415; 71046; 80048; 80053; 83605; 83880; 84484; 85025; 85610; 87637; 93005; 94640; 96372; 96374; 96376; 97110; 97116; 97161; 97165; 97535; 99285; A9270; G0378; J1650; J1956; J2930; J7512

== ENCOUNTER 2023-12-29 09:38 | Outpatient (CLI) | payer MEDICARE, MEDICAID, SELFPAY ==
--- NOTE | ~2023-12-29 | CT_ITS ---
CT Scan of the Chest without Contrast: Clinical Indication: Lung cancer screening, nicotine dependence Technique: Contiguous sections were acquired throughout the chest without intravenous contrast. Dose reduction technique was used on this scan by utilizing automated exposure control and iterative recon struction technique. The dose-length product (DLP) was 228.82 mGy-cm. COMPARISON: 09/23/2022 Findings: There is a 4.0 x 3.0 cm mass centered in the medial right upper lobe, probably invading into the medi astinum and abutting the right side of the esophagus, possibly tracheal. There is underlying severe e mphysema in the lungs. Several areas of linear scarring or chronic atelectasis are noted. No other mediastinal lymphadenopathy identified. There are extensive atherosclerotic calcifications o f the aorta. No pleural or pericardial effusion. Images through the upper abdomen reveal partially imaged autosomal dominant polycystic kidney disease . Probable internal-external biliary drainage catheter versus cholecystotomy tube is present.. Impression: Lung RADS 4B: Very suspicious. 4.0 x 3.0 cm right upper lobe mass, as detailed above, highly suspicio us for carcinoma. Tissue sampling and additional relevant workup recommended. Severe emphysema. Case discussed with Dr. Mckay at the time of this reading. Reviewed, dictated and finalized at location M. Impression: Lung RADS 4B: Very suspicious. 4.0 x 3.0 cm right upper lobe mass, as detailed above, highly suspicious for carcinoma. Tissue sampling and additional relevant workup recommended. Severe emphysema. Case discussed with Dr. Mckay at the time of this reading.
== END 2023-12-29 09:39 | disposition home or self-care (01) ==
LOC: ANHIMG 09:41
PROVIDERS: PCP Family Medicine; Visit Provider Internal Medicine Critical Care Medicine
DX: Z12.2 Encounter for screening for malignant neoplasm of respiratory organs (principal); R91.8 Other nonspecific abnormal finding of lung field; J43.9 Emphysema, unspecified; Z87.891 Personal history of nicotine dependence
CPT/HCPCS: 71271

== ENCOUNTER 2024-01-03 14:49 | Outpatient (CLI) | payer MEDICARE, MEDICAID, SELFPAY ==
[2024-01-03 15:26] LABS: Basophils Percent Auto 0.5 % (0.2-1.2); Eosinophils Absolute Auto 0.5 K/mm3 (0-0.3); Eosinophils Percent Auto 6.7 % (0-4.4); Hematocrit 35.1 % (42.0-52.0); Hemoglobin 10.7 g/dL (14.0-18.0); Immature Granulocyte Absolute 0.04 K/mm3 (0.00-0.031); Immature Granulocyte Percent A 0.5 % (0-0.5); Immature Reticulocyte Fraction 11.2 % (3.0-15.9); Lymphocytes Absolute Auto 1.68 K/mm3 (0.9-3.2); Lymphocytes Percent Auto 21.3 % (18.3-44.2); Mean Corpuscular HGB Conc 30.5 g/dl (32-36); Mean Corpuscular Hemoglobin 26.2 pg (26-34); Mean Corpuscular Volume 85.8 fl (80-100); Mean Platelet Volume 9.2 fl (7.4-10.4); Monocytes Absolute Auto 0.7 K/mm3 (0.1-0.6); Monocytes Percent Auto 9.4 % (2.6-8.5); Neutrophils Absolute Auto 4.9 K/mm3 (1.3-6.7); Neutrophils Percent Auto 61.6 % (45.5-73.1); Platelet Count Result 221 k/mm3 (150-375); Red Blood Count 4.09 M/mm3 (4.6-6.20); Red Cell Distribution Width 14.8 % (11.5-14.5); Reticulocyte Hemoglobin Conten 29.4 pg (28.2-36.6); Reticulocyte Percent 1.61 % (0.7-4.3); Reticulocytes Absolute 0.07 10^6/uL (0.02-0.10); White Blood Count 7.9 K/mm3 (4.5-10.0)
[2024-01-03 16:36] LABS: Iron 34 ug/dL (49-181)
[2024-01-03 16:39] LABS: Alanine Aminotransferase 13 U/L (6-50); Albumin Level 4.4 g/dL (3.5-5.1); Alkaline Phosphatase 78 U/L (38-126); Anion Gap 11 mmol/L (4-12); Aspartate Amino Transferase 19 U/L (17-59); Bilirubin,Total 0.5 mg/dL (0.2-1.3); Blood Urea Nitrogen 14 mg/dL (9-20); Calcium 9.2 mg/dL (8.4-10.2); Carbon Dioxide 27 mmol/L (22-30); Chloride 103 mmol/L (98-107); Estimated Glomerular Filt Rate > 60; Glucose 98 mg/dL (65-110); Lactate Dehydrogenase 135 U/L (120-246); Potassium 4.1 mmol/L (3.4-5.0); Sodium 141 mmol/L (137-145)
[2024-01-03 16:46] LABS: Percent Iron Saturation 10 % (20-50)
[2024-01-03 17:43] LABS: Folic Acid 11.4 ng/mL (2.76->20)
[2024-01-03 19:09] LABS: Hepatitis B Surface Antigen Negative (Negative)
[2024-01-03 19:16] LABS: HAV RESULT Negative (Negative); Hepatitis B Core IgM Result Negative (Negative)
[2024-01-03 19:41] LABS: Hepatitis C Virus Antibody Reactive (Negative)
[2024-01-04 15:47] LABS: Haptoglobin 139 mg/dL (43-212)
[2024-01-04 19:29] LABS: G-6-PD, RBC 4.5 U/g Hgb (7.0-20.5)
[2024-01-05 12:03] LABS: Hepatitis C RNA, Quant PCR <15 NOT DETECTED IU/mL (NOT DETECTED)
[2024-01-05 23:13] LABS: Methylmalonic Acid 128 nmol/L (69-390)
[2024-01-09 12:03] LABS: Soluble Transferrin Receptor 1.55 mg/L (0.76-1.76)
== END 2024-01-03 14:50 | disposition home or self-care (01) ==
LOC: ANHLAB 14:52
PROVIDERS: Nurse Practitioner Family; PCP Family Medicine; Visit Provider Internal Medicine Hematology & Oncology
DX: D50.9 Iron deficiency anemia, unspecified (principal); D55.0 Anemia due to glucose-6-phosphate dehydrogenase [G6PD] deficiency; D57.3 Sickle-cell trait; Z86.19 Personal history of other infectious and parasitic diseases
CPT/HCPCS: 36415; 80053; 80074; 82607; 82728; 82746; 82955; 83010; 83540; 83550; 83615; 83921; 84238; 85025; 85046; 85660; 86880; 87522

== ENCOUNTER 2024-02-09 08:19 | Outpatient (CLI) | payer MEDICARE, MEDICAID, SELFPAY ==
--- NOTE | ~2024-02-09 | MR_ITS ---
MRI of the brain Clinical History: Small cell lung cancer Technique: Axial and sagittal T1-weighted images were acquired. These were followed by axial T2-weigh leann, diffusion weighted, gradient, and FLAIR images. Following intravenous administration of 19 cc Mu ltiHance gadolinium, T1-weighted fat-sat imaging was performed in the axial and coronal planes. Findings: There is no acute infarct, intracranial hemorrhage, or mass lesion. There is minimal wilkinson ry vascular ischemic changes in the periventricular white matter. Ventricles are spaces are unremarkable. Orbits are unremarkable. There is right maxillary sinus disea se. There is right mastoid effusion. Remaining paranasal sinuses and left mastoid air cells are clear . Major intracranial flow voids are intact. Sagittal midline structures are intact. No abnormal postcontrast enhancement identified. IMPRESSION: No evidence of intracranial metastasis. Right maxillary sinus disease. Reviewed, dictated and finalized at [facility].
== END 2024-02-09 08:20 | disposition home or self-care (01) ==
LOC: ANHIMG 08:24
PROVIDERS: PCP Family Medicine; Visit Provider Internal Medicine Hematology & Oncology
DX: C34.11 Malignant neoplasm of upper lobe, right bronchus or lung (principal); J32.0 Chronic maxillary sinusitis
CPT/HCPCS: 70553; A9577

== ENCOUNTER 2024-02-14 13:49 | Outpatient (CLI) | payer MEDICARE, MEDICAID, SELFPAY ==
[2024-02-14 14:38] LABS: INR 0.9; Prothrombin Time 12.8 Seconds (11.1-14.7)
[2024-02-14 14:39] LABS: Partial Thromboplastin Time 33.1 Seconds (22.3-36.8)
== END 2024-02-14 13:50 | disposition home or self-care (01) ==
PROVIDERS: PCP Family Medicine; Visit Provider Surgery
DX: C34.90 Malignant neoplasm of unspecified part of unspecified bronchus or lung (principal); Z01.818 Encounter for other preprocedural examination
CPT/HCPCS: 36415; 85610; 85730

== ENCOUNTER 2024-02-20 01:05 | Day surgery (SDC) | payer MEDICARE, MEDICAID, SELFPAY ==
[2024-02-14 11:23] VITALS: BMI 31.5
--- NOTE | 2024-02-14 11:44 | PC.NURSE ---
Report to the Outpatient Waiting Room, entrance under the green pavilion located off [facility], at time __08:00am on date 02/20/24 . Planned Procedure Time: _10:00am .? Time changes happen often and if your time is changed the preop area will call you the afternoon before. - You and your visitor will be asked to self-screen and do not enter if you have any COVID symptoms. Please call surgeon if you need to reschedule. - A mask is optional within the hospital at this time. Patients may have clear liquids (water, carbonated beverages, clear teas, apple juice) until 3 hours prior to surgery with a maximum of 20 ounces. - No food from midnight until time of surgery and no smoking Take only the following medications with a SIP of water on the morning of surgery: __Metoprolol, Amlodipine, Montelukast and all inhalers/Nebulizers as prescribed and needed. DO NOT STOP ANY OF YOUR OTHER PRESCRIPTION MEDICATIONS PRIOR TO SURGERY EXCEPT THE FOLLOWING Medications to discontinue per physician _Pt to verify with Dr. Ivory his Aspirin instructions- pt to call when we get off the phone today. Date to take last dose___per Dr Ivory. Pt aware to HOLD all vitamins, supplements, Probiotics and herbs 3 days prior to Surgery per Anesthesia. Date to take last dose is 02/16/24. Please no make-up, nail citizen of [place], hairspray, perfume, deodorant, or body powder the day of surgery.? No jewelry (including any body piercings) or valuables the day of surgery, leave them at home.? Please take a shower or bath the night before, or the morning of, surgery with an antibacterial soap.? Wear comfortable, loose fitting clothing.? Children are encouraged to wear pajamas. - Jewelry must be removed prior to entering the operating room.? Rings and piercings that are not removed may be cut off. - The hospital will not accept responsibility for valuables.? - Please leave all valuables, including medications, at home the day of surgery. If you are going home after surgery, a licensed front loader residential driver must drive you home.? - NO public transportation without another adult if you receive anesthesia. - We recommend that an adult stay with you for 24 hours following discharge. - We also recommend that you do not drive, make important decision, drink alcoholic beverages, or take any drugs that were not prescribed by your health care provider for at least 24 hours after your discharge time. For Pediatric surgeries, we recommend two adults accompany the child home. Follow any additional instructions given to you from your surgeon. Telephone instructions given to __patient and asked if any additional questions and then verbalized understanding. Patient advised to call surgeon office or pre surgery nurse liaison [phone] if any additional questions.
--- NOTE | ~2024-02-20 | XR_ITS ---
EXAMINATION: XR fl guide central line place DATE: 02/20/2024 12:31 INDICATION: Port placement. TECHNIQUE: A single intraoperative fluoroscopic view of the chest was obtained. I was not present. Fl uoroscopy exposure time was 23 seconds. COMPARISON: Chest CT 12/29/2023 FINDINGS: There is a right chest port with tip in superior vena cava. IMPRESSION: 1. Right chest port with tip in superior vena cava. Reviewed, dictated and finalized at location A.
--- NOTE | ~2024-02-20 | XR_ITS ---
XR chest port-a-cath/central Ordering provider: Farrukh Ivory MD History: 73 years Male with . POST-OP, INSERTION MARTÍNEZ CATH . Comparison: None. FINDINGS: MEDIASTINUM: The cardiac silhouette is slightly enlarged. Congestive nesha. The right Port-A-Cath with the tip overlying superior vena cava. LUNGS: No infiltrates, effusions or pneumothorax. Degenerative changes of the lungs. Fibrotic changes in the right mid and lower zone. OTHER: No free air under the diaphragm. Degenerative spine. IMPRESSION: No acute cardiopulmonary pathology. Reviewed, dictated and finalized at location A.
[2024-02-20 08:10] VITALS: BP 117/69; PULSE 84; RESP 20; TEMP 36.9; O2SAT 99
[2024-02-20] MEDS: LACTATED RINGERS 1,000 ML 30 ML IV CONT (08:25)
--- NOTE | 2024-02-20 10:31 | SUR.PREOP ---
PT INFORMED OF SURGERY TIME DELAY, URINAL GIVEN
--- NOTE | 2024-02-20 10:47 | WPDANESEPPF ---
Anes - Initial Pre Proc Eval Procedure: Operation Date: 02/20/24 10:00 Proposed Procedures p Insertion Juan Francisco Cath - Farrukh Ivory MD Date/Time: 02/20/24 10:47 Surgeon: Farrukh Ivory MD Pre Op Diagnosis: small cell lung CA Patient Data Age: 73 Gender: M Height: 1.73 m Weight: 93.4 kg Last Vital Signs Temp 36.9 C 02/20/24 08:10 Pulse 84 02/20/24 08:10 Resp 20 02/20/24 08:10 BP 117/69 02/20/24 08:10 Pulse Ox 99 02/20/24 08:10 O2 Del Method Room Air 02/20/24 08:10 Allergies Allergy/AdvReac Type Severity Reaction Status Date / Time lisinopril Allergy Severe Swelling Verified 02/20/24 08:08 Penicillins Allergy Intermediate Hives / Verified 02/20/24 08:08 Red Face Sulfa (Sulfonamide Allergy Intermediate Hives / Verified 02/20/24 08:08 Antibiotics) Red Face Home Medications Medication Instructions Recorded Confirmed Type amlodipine 10 mg tablet 10 mg PO QAM 03/07/20 02/20/24 History doxazosin 8 mg tablet 8 mg PO HS 03/07/20 02/20/24 History ergocalciferol (vitamin D2) 1,250 1,250 mcg PO WEEKLY 03/07/20 02/20/24 History mcg (50,000 unit) capsule fluticasone propionate 50 1 spray intranasal DAILY PRN 03/07/20 02/20/24 History mcg/actuation nasal Congestion spray,suspension nebulizer and compressor (Easy Neb #1 ea 03/07/20 02/20/24 History Compressor Nebulizer) sildenafil 100 mg tablet 100 mg PO DAILY PRN Erectile 03/07/20 02/20/24 History Dysfunction aspirin 81 mg tablet 81 mg PO DAILY 08/04/20 02/20/24 History metoprolol tartrate 25 mg tablet 25 mg PO BID 01/28/23 02/20/24 History omeprazole 40 mg capsule,delayed 40 mg PO DAILY 01/28/23 02/20/24 History release albuterol sulfate 2.5 mg/3 mL 2.5 mg (3 mL) inhalation Q4-6H PRN 03/18/23 02/20/24 Rx (0.083 %) solution for nebulization Shortness Of Breath Or Wheezing #1,080 mL montelukast 10 mg tablet 10 mg PO QAM #90 tabs 04/25/23 02/20/24 Rx (Singulair) budesonide 0.25 mg/2 mL suspension 0.25 mg (2 mL) inhalation BID COPD 08/24/23 02/20/24 Rx for nebulization 1 month #120 mL methocarbamol 500 mg tablet 500 mg PO PRN PRN back spasms 08/30/23 02/20/24 History roflumilast 500 mcg tablet 500 mcg PO HS copd 08/30/23 02/20/24 History revefenacin 175 mcg/3 mL solution 175 mcg/3 mL Solution For 09/21/23 02/20/24 Sample for nebulization (Yupelri) Nebulization#3 Samples levocetirizine 5 mg tablet See Rx Instructions .Route 11/30/23 02/20/24 Rx .COMPLEX #90 tabs albuterol sulfate 90 mcg/actuation See Rx Instructions .Route 01/11/24 02/20/24 Rx aerosol inhaler .COMPLEX #3 ea arformoterol 15 mcg/2 mL solution See Rx Instructions .Route 02/14/24 02/20/24 Rx for nebulization .COMPLEX #120 mL baclofen 10 mg tablet See Rx Instructions .Route 02/16/24 02/20/24 Rx .COMPLEX #90 tabs Patient hx anesthesia problems: none Family hx anesthesia problems: none Results Review: All pre-operative results and documents have been reviewed as part of the pre-operative evaluation. [facility] Past Medical History Medical History Asbestos exposure BPH (benign prostatic hyperplasia) Chronic kidney disease Chronic viral hepatitis C COPD (chronic obstructive pulmonary disease) Dependence on supplemental oxygen Elevated PSA Environmental allergies H/O nicotine dependence Hepatitis C HTN (hypertension) Nocturnal hypoxemia Obesity Sleep apnea Wears glasses Surgical History Surgical History History of ankle surgery 2016 History of back surgery Family History Family History Father Cancer Pancreatic cancer Mother Asthma Cerebrovascular accident Sibling Diabetes mellitus Hypertension Heart disease Cerebrovascular accident Cancer of colon Other Lung disease Social History Social History (Reviewed 02/19/
--- NOTE | 2024-02-20 10:56 | PM.IMHP ---
H&P: HPI History of Present Illness Date/Time: 02/20/24 10:56 Chief Complaint: Right lung small cell CA. Narrative: Pt with small cell CA of the right lung. He is on 3 liters of oxygen continuously at home. He is to have XRT and Chemo tx for the lung ca. He presents for placement of a portacatheter today for the chemo tx. Review of Systems Review of Systems: The remainder of the review of systems to include constitutional, HEENT, cardiovascular, respiratory, GI, , integumentary, musculoskeletal, endocrine, immunologic, hematologic, psychiatric, and neurologic are all negative except for which is mentioned above in the HPI. [facility] Past Medical History Medical History Asbestos exposure BPH (benign prostatic hyperplasia) Chronic kidney disease Chronic viral hepatitis C COPD (chronic obstructive pulmonary disease) Dependence on supplemental oxygen Elevated PSA Environmental allergies H/O nicotine dependence Hepatitis C HTN (hypertension) Nocturnal hypoxemia Obesity Sleep apnea Wears glasses Surgical History Surgical History History of ankle surgery 2016 History of back surgery Family History Family History Father Cancer Pancreatic cancer Mother Asthma Cerebrovascular accident Sibling Diabetes mellitus Hypertension Heart disease Cerebrovascular accident Cancer of colon Other Lung disease Social History Social History Smoking packs per day: 1 Smoking cigarettes per day: 20.0 Years smoked: 50 Smoking pack-years: 50.00 Smoking status: Former smoker Tobacco type: cigarettes Smoking end date: 06/13/17 Alcohol intake: former Drinks per week: 1 Alcohol use details: SCIAL DRINKER Substance use: never Substance use type: does not use Do You Feel Safe in your Home?: Yes Lack of Transportation: No Lack of Food: Never True Current Housing: I Have Housing Concerned About Future Housing: No Difficulty Paying Gas/Electric Bills: No Difficulty Paying for Meds: No Currently Unemployed: No Education: Associate Degree Difficulty w/ Childcare or Family Care: No Living arrangements: alone Occupation/Education: retired Gender identity (if verbalized by the patient): Male Spiritual care concerns: No Meds Home Medications and Allergies Home Medications Medication Instructions Recorded Confirmed Type amlodipine 10 mg tablet 10 mg PO QAM 03/07/20 02/20/24 History doxazosin 8 mg tablet 8 mg PO HS 03/07/20 02/20/24 History ergocalciferol (vitamin D2) 1,250 1,250 mcg PO WEEKLY 03/07/20 02/20/24 History mcg (50,000 unit) capsule fluticasone propionate 50 1 spray intranasal DAILY PRN 03/07/20 02/20/24 History mcg/actuation nasal Congestion spray,suspension nebulizer and compressor (Easy Neb #1 ea 03/07/20 02/20/24 History Compressor Nebulizer) sildenafil 100 mg tablet 100 mg PO DAILY PRN Erectile 03/07/20 02/20/24 History Dysfunction aspirin 81 mg tablet 81 mg PO DAILY 08/04/20 02/20/24 History metoprolol tartrate 25 mg tablet 25 mg PO BID 01/28/23 02/20/24 History omeprazole 40 mg capsule,delayed 40 mg PO DAILY 01/28/23 02/20/24 History release albuterol sulfate 2.5 mg/3 mL 2.5 mg (3 mL) inhalation Q4-6H PRN 03/18/23 02/20/24 Rx (0.083 %) solution for nebulization Shortness Of Breath Or Wheezing #1,080 mL montelukast 10 mg tablet 10 mg PO QAM #90 tabs 04/25/23 02/20/24 Rx (Singulair) budesonide 0.25 mg/2 mL suspension 0.25 mg (2 mL) inhalation BID COPD 08/24/23 02/20/24 Rx for nebulization 1 month #120 mL methocarbamol 500 mg tablet 500 mg PO PRN PRN back spasms 08/30/23 02/20/24 History roflumilast 500 mcg tablet 500 mcg PO HS copd 08/30/23 02/20/24 History revefenacin 175 mcg/3 mL solution 175 m
--- NOTE | 2024-02-20 11:01 | WPDHPUPDATE1 ---
History and Physical Update Update Date/Time: 02/20/24 11:01 History and Physical has been reviewed, including an updated exam of the patient. There are NO changes in the patient's condition. Risks, benefits, and alternatives have been discussed and questions answered. Patient agrees to proceed with procedure.
[2024-02-20] MEDS: ceFAZolin 2 GM/D5W 50 ML 2 GM/50 ML BAG IVPB (11:04)
[2024-02-20] MEDS: LIDO 1%/EPINEPHRINE 1:100,000 50 ML VIAL 20 ML INFILTRATE (11:26)
[2024-02-20] MEDS: BUPivacaine HCL 0.5% 10 ML AMP 20 ML INFILTRATE (11:28)
[2024-02-20] MEDS: HEPARIN SODIUM 1,000 UNITS/ML VIAL 1000 UNITS IV PUSH (11:28)
[2024-02-20] MEDS: HEPARIN SODIUM 5,000 UNITS/ML VIAL 5000 UNITS IRRIGATION (11:32)
[2024-02-20 12:23] VITALS: BP 107/69; PULSE 79; RESP 16; O2SAT 100
--- NOTE | 2024-02-20 12:35 | W.PM.PROC2 ---
Procedure Note - Detailed Date of Procedure 02/20/24 Pre-op Diagnosis Small cell lung CA Post-op Diagnosis Same Procedure Performed Placement of right subclavian vein portacatheter with intraoperative fluoroscopy. 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 He is to undergo radiation treatment as well as chemotherapy treatments and presents now for placement john catheter. Findings None significant Description of Procedure After informed consent was obtained patient brought to the operating room placed supine position and then IV sedation was administered by anesthesia. The bilateral upper anterior neck and chest was then prepped and draped usual sterile fashion. Time-out was then performed correctly identifying the patient as well as procedure to be performed. He was given perioperative IV antibiotics. 1% lidocaine mixed with 0.5% Marcaine was injected just below the medial 3rd of the right clavicle. A transverse incision was then with this area the scalpel the dissection was carried down through the subcutaneous tissues electrocautery. I dissected down to the anterior pectoralis fascia and then created a subcutaneous port pocket just below the incision utilizing electrocautery and blunt finger dissection. Patient was then placed in the head-down Trendelenburg position and then a long 18gauge needle was then used to cannulate the right subclavian vein on the 1st pass without any difficulty. A guidewire was then passed through the needle into the right subclavian vein subsequently into the superior vena cava without any difficulty. Intraoperative fluoroscopy was used to confirm the proper placement of tip of the guidewire. I then advanced a dilator breakaway sheath over the guidewire. The guidewire and dilator were removed leaving the sheath in place. A 9.6 Khmer single-lumen silastic catheter was then advanced through the sheath into the right subclavian vein subsequent down into the right atrium of the heart via the superior vena cava. The sheath was then torn away leaving the catheter in place. Then utilizing intraoperative fluoroscopy I then pulled back on the catheter I felt the tip of the catheter was out of the right atrium. I then cut the catheter to the appropriate length the skin level and attached to the Smart Port. I then secured the port in the subcutaneous port pocket utilizing 3-0 Prolene sutures. I then attempted to aspirate blood through the port and it was flush would not aspirate blood freely. Aspirated about 1cc of blood then stop. I felt this is likely due to the fact of the catheter tip was then to deep and was in the right atrium causing the tip to suck up against the wall the right atrium. I then at the securing sutures of the port in the subcutaneous port pocket and then pulled the catheter back another 2cm with intraoperative fluoroscopy. At this point the tip appeared to be more in the mid to distal superior vena cava.. I then cut 2cm of the catheter off of the port. All this time I occluded the catheter to prevent loss of any blood or air embolism. The port was then attached to the end of the catheter again secured. I was then able to aspirate blood freely with the Lay needle and then filled flushed with heparinized saline solution easily. I then secured the port in subcu port pocket with some new 3-0 Prolene sutures. I then irrigated the port pocket sterile saline solution hemostasis was excellent. I then close incision utilizing interrupted 3-0 Vicryl sutures the subcutaneous tissues. Skin edges then approximated utilizing a running subcuticular 4 Monocryl suture. I then percutaneously accessed the port with a Lay needle and aspirated blood easily and then flushed with 5000units of heparin IV without any problems. There is then cleaned and then skin glue was applied. The patient
[2024-02-20 12:55] VITALS: BP 106/73; PULSE 86; RESP 16; O2SAT 98
--- NOTE | 2024-02-20 13:01 | SUR.PHASEII ---
1227 XRAY CALLED FOR CXR. 1235 PORTABLE CXR DONE.
[2024-02-20 13:23] VITALS: BP 140/77; PULSE 71; RESP 22
== END 2024-02-20 13:30 | disposition home or self-care (01) ==
PROVIDERS: PCP Family Medicine; Visit Provider Surgery
PROC: (CPT 36561; principal; 2024-02-20 10:00)
DX: N40.0 Benign prostatic hyperplasia without lower urinary tract symptoms (principal); I12.9 Hypertensive chronic kidney disease with stage 1 through stage 4 chronic kidney disease, or unspecified chronic kidney disease; N18.9 Chronic kidney disease, unspecified; B18.2 Chronic viral hepatitis C; J44.9 Chronic obstructive pulmonary disease, unspecified; G47.30 Sleep apnea, unspecified; E66.9 Obesity, unspecified; Z68.31 Body mass index [BMI] 31.0-31.9, adult; Z79.51 Long term (current) use of inhaled steroids; Z79.82 Long term (current) use of aspirin; Z99.81 Dependence on supplemental oxygen; Z77.090 Contact with and (suspected) exposure to asbestos; Z98.890 Other specified postprocedural states; Z98.1 Arthrodesis status; Z87.891 Personal history of nicotine dependence; Z80.0 Family history of malignant neoplasm of digestive organs; Z80.1 Family history of malignant neoplasm of trachea, bronchus and lung; Z82.49 Family history of ischemic heart disease and other diseases of the circulatory system
CPT/HCPCS: 36561; 77001; C1788; J0690; J1644; J2704; J3010; J7030; J7120

== ENCOUNTER 2024-03-20 11:07 | Inpatient (IN) | payer MEDICARE, MEDICAID, SELFPAY ==
[2024-03-20] VITALS (21 sets, daily range): BP systolic 117–138; BP diastolic 52–65; PULSE 102–133; RESP 20–29; TEMP 37–38.1; O2SAT 91–100
--- NOTE | ~2024-03-20 | XR_ITS ---
XR chest 1V portable Ordering provider: Domonique Mix PA-C History: 73 years Male with . shortness of breath . Comparison: February 20, 2024 FINDINGS: MEDIASTINUM: The cardiac silhouette is not enlarged. Right Port-A-Cath with the tip overlying superio r vena cava. LUNGS: No effusions or pneumothorax. Bilateral interstitial thickening suggestive of pneumonitis vers us pulmonary edema. Prominent bronchovascular markings in the left lower lobe also noted with possibl e early pneumonia. OTHER: No free air under the diaphragm. Degenerative changes of the spine. IMPRESSION: Bilateral interstitial thickening suggestive of pneumonitis. Underlying pulmonary edema is not exclud ed. Clinical correlation advised. Reviewed, dictated and finalized at location A. IMPRESSION: Bilateral interstitial thickening suggestive of pneumonitis. Underlying pulmona ry edema is not excluded. Clinical correlation advised.
--- NOTE | ~2024-03-20 | CT_ITS ---
EXAMINATION: CTA chest PE protocol DATE: 03/20/2024 13:21 INDICATION: Hypoxia. Fever. Lung cancer. TECHNIQUE: Computed tomography angiography (CTA) of the chest was performed with 100 mL Omnipaque-350 intravenous contrast timed to evaluate the pulmonary arteries. Coronal maximum intensity projection 3D-reconstructions were created by the technologist. Automated exposure control and iterative reconst ruction technique were employed. The dose-length product was 647.03 mGy-cm. COMPARISON: Chest CT 12/29/2023, CT abdomen and pelvis 01/27/23 FINDINGS: There is severe emphysema. There is a 3.3 x 1.4 cm mass in the paramediastinal right lung u pper lobe. There is mild atelectasis bilaterally. There are patchy airspace opacities in the upper lo bes. No pleural effusion. The heart size is normal. There is a small pericardial effusion. There is n o pulmonary embolus. There is a small sliding hiatal hernia. There is a 2.3 x 1.7 cm right hilar lymp h node. There is severe intrahepatic and extrahepatic biliary duct dilatation. Partially visualized i s a percutaneous biliary stent. Polycystic kidney disease is noted. There is severe cervical spondylo sis and mild thoracic spondylosis. IMPRESSION: 1. Mass in paramediastinal right lung upper lobe, consistent with primary bronchogenic carcinoma. 2. Patchy airspace opacities in the upper lobes, consistent with radiation pneumonitis and/or pneumon ia. 3. Mildly enlarged right hilar lymph node, which may be metastatic disease or reactive lymphadenopath y. 4. Severe emphysema. 5. No pulmonary embolus. 6. Chronic severe intrahepatic and extrahepatic biliary duct dilatation with percutaneous biliary chelsey nt. Reviewed, dictated and finalized at location A. IMPRESSION: 1. Mass in paramediastinal right lung upper lobe, consistent with primary bronc hogenic carcinoma. 2. Patchy airspace opacities in the upper lobes, consistent with radiation pneu monitis and/or pneumonia. 3. Mildly enlarged right hilar lymph node, which may be metastatic disease or r eactive lymphadenopathy. 4. Severe emphysema. 5. No pulmonary embolus. 6. Chronic severe intrahepatic and extrahepatic biliary duct dilatation with pe rcutaneous biliary stent.
--- NOTE | 2024-03-20 12:15 | ED.SOB ---
HPI - SOB/Dyspnea General Chief Complaint: Shortness of Breath/Dyspnea <JENNY Reynoso Filed: 03/20/24 12:28> Stated Complaint: fever <JENNY Reynoso Filed: 03/20/24 12:28> Time Seen by Provider: 03/20/24 12:15 <JENNY Reynoso Last Filed: 03/20/24 12:28> Focused HPI: Patient is a 73 y/o male, with PMH of COPD, chronic hypoxic resp failure on home O2, asbestos exposure, HTN, CKD, bile drain, who presents to the ED with c/o fever and SOB. Patient is currently undergoing chemotherapy and radiation treatment for small cell lung CA. Sees Dr. Bermudez (radiation oncologist) and Dr. Brown. He went in today for a radiation treatment and was noted to have abnormal vital signs, states his HR was in the 130s, SaO2 85%, and he was febrile. He was then sent here for further evaluation. Patient states he has not felt well over the past few days. C/o mild cough, fatigue, body aches, loss of appetite, chills, loss of taste, increased SOB. Chronically wears 3L NC. Has not had to increase this. Denies CP, known fever. GENERAL: Well-appearing, well-nourished, and in no acute distress. HEAD: Normocephalic, atraumatic. CHEST: No respiratory distress. Decreased lung sounds throughout. No significant focal lung sounds. On 3L NC HEART: Borderline tachycardic with regular rhythm.? NEURO: ?Alert and oriented x3. Patient screened in triage and initial orders placed.? ?Additional care and disposition to be based upon?diagnostic testing and treatment. <JENNY Reynoso Filed: 03/20/24 12:28> Source: patient and old records reviewed <JENNY Reynoso Filed: 03/20/24 12:28> Mode of arrival: ambulatory <JENNY Reynoso Filed: 03/20/24 12:28> Limitations: no limitations <JENNY Reynoso Filed: 03/20/24 12:28> History of Present Illness HPI Narrative: 73-year-old male presenting with fever and shortness of breath. He was seen by his radiation oncologist earlier today who found him to be febrile and tachycardic so he was advised to come to the ER for further evaluation. States that he has been feeling weaker than normal as well as having diffuse body aches and loss of taste. States he does feel more short of breath than normal. He is on 3 L nasal cannula chronically. <Raven Sanz MD - Last Filed: 03/20/24 22:10> Related Data Home Medications: Home Medications Medication Instructions Recorded Confirmed amlodipine 10 mg tablet 10 mg PO QAM 03/07/20 03/20/24 doxazosin 8 mg tablet 8 mg PO HS 03/07/20 03/20/24 ergocalciferol (vitamin D2) 1,250 1,250 mcg PO WEEKLY 03/07/20 03/20/24 mcg (50,000 unit) capsule fluticasone propionate 50 1 spray intranasal DAILY PRN 03/07/20 03/20/24 mcg/actuation nasal Congestion spray,suspension nebulizer and compressor (Easy Neb #1 ea 03/07/20 03/20/24 Compressor Nebulizer) sildenafil 100 mg tablet 100 mg PO DAILY PRN Erectile 03/07/20 03/20/24 Dysfunction aspirin 81 mg tablet 81 mg PO DAILY 08/04/20 03/20/24 metoprolol tartrate 25 mg tablet 25 mg PO BID 01/28/23 03/20/24 omeprazole 40 mg capsule,delayed 40 mg PO DAILY 01/28/23 03/20/24 release methocarbamol 500 mg tablet 500 mg PO PRN PRN back spasms 08/30/23 03/20/24 roflumilast 500 mcg tablet 500 mcg PO HS copd 08/30/23 03/20/24 <Shannon Gudino PA-C - Last Filed: 03/20/24 12:28> Allergies/Adverse Reactions: Allergies Allergy/AdvReac Type Severity Reaction Status Date / Time lisinopril Allergy Severe Swelling Verified 03/07/24 16:58 Penicillins Allergy Intermediate Hives / Verified 03/07/24 16:58 Red Face Sulfa (Sulfonamide Allergy Intermediate Hives / Verified 03/07/24 16:58 Antibiotics) Red Face <Shannon Gudino PA-C - Last Filed: 03/20/24 12:28> Review of Systems Review of Systems: All systems reviewed & are unremarkable except as noted in HPI and below
--- NOTE | 2024-03-20 12:17 | ECG_ITS ---
Test Date: 2024-03-20 12:35:54 Measurements Intervals [place] Rate: 118 P: 44 MO: 144 QRS: 60 QRSD: 83 T: 64 QT: 269 QTc: 377 Interpretive Statements SINUS TACHYCARDIA POSSIBLE LEFT ATRIAL ENLARGEMENT [-0.1mV P WAVE IN V1/V2] ABNORMAL RHYTHM ECG No previous ECG available for comparison Electronically Signed On 03-21-2024 07:04:46 CDT by Misael Luna M.D.
[2024-03-20 12:52] LABS: Eosinophils Percent Auto 1.2 % (0-4.4); Hematocrit 24.7 % (42.0-52.0); Hemoglobin 7.5 g/dL (14.0-18.0); Immature Granulocyte Absolute 0.01 K/mm3 (0.00-0.031); Immature Granulocyte Percent A 1.2 % (0-0.5); Lymphocytes Absolute Auto 0.21 K/mm3 (0.9-3.2); Lymphocytes Percent Auto 25.3 % (18.3-44.2); Mean Corpuscular HGB Conc 30.4 g/dl (32-36); Mean Corpuscular Hemoglobin 24.8 pg (26-34); Mean Corpuscular Volume 81.5 fl (80-100); Mean Platelet Volume 9.5 fl (7.4-10.4); Monocytes Absolute Auto 0.5 K/mm3 (0.1-0.6); Monocytes Percent Auto 57.8 % (2.6-8.5); Neutrophils Absolute Auto 0.1 K/mm3 (1.3-6.7); Neutrophils Percent Auto 14.5 % (45.5-73.1); Platelet Count Result 130 k/mm3 (150-375); Red Blood Count 3.03 M/mm3 (4.6-6.20); Red Cell Distribution Width 17.1 % (11.5-14.5)
--- NOTE | 2024-03-20 13:00 | PC.NURSE ---
Pt had increasing sob with 02 sat dropping to 84% on 3l when standing to use urinal. ERP aware.
[2024-03-20 13:03] LABS: Lactic Acid Reflex 2.2 mmol/L (0.7-2.0)
[2024-03-20 13:07] LABS: Alanine Aminotransferase 23 U/L (6-50); Albumin Level 3.8 g/dL (3.5-5.1); Alkaline Phosphatase 151 U/L (38-126); Anion Gap 8 mmol/L (4-12); Aspartate Amino Transferase 22 U/L (17-59); Bilirubin,Total 1.3 mg/dL (0.2-1.3); Blood Urea Nitrogen 20 mg/dL (9-20); Calcium 8.7 mg/dL (8.4-10.2); Carbon Dioxide 25 mmol/L (22-30); Chloride 104 mmol/L (98-107); Estimated CRCL calculation 38 ml/min; Estimated Glomerular Filt Rate 48; Glucose 122 mg/dL (65-110); INR 1.3; Potassium 4.9 mmol/L (3.4-5.0); Prothrombin Time 16.3 Seconds (11.1-14.7); Sodium 137 mmol/L (137-145)
[2024-03-20 13:08] LABS: Partial Thromboplastin Time 35.1 Seconds (22.3-36.8)
[2024-03-20] MEDS: ACETAMINOPHEN 500 MG TABLET 1000 MG PO (13:08)
[2024-03-20 13:09] LABS: Add Urine Microscopic? YES; Appearance Urine Clear (Clear); Bacteria Urine None Seen /hpf; Bilirubin Urine 1+ (Negative); Blood Urine Non-Hemolyzed Trace (Negative); Color Urine Dark Yellow (Yellow); Glucose Urine UA Negative (Negative); Ketones Urine Negative (Negative); Leukocyte Esterase Ur Trace LEU/UL (Negative); Nitrate Urine Negative (Negative); Non Pathogenic Casts 0-2; Protein Urine 1+ mg/dL (Negative); Specific Grav Ur 1.016 (1.001-1.035); Squamous Epithelial Cell Urine None Seen /hpf (Few); WBC Urine 0-5 /hpf (0-3)
[2024-03-20 13:14] LABS: NT Pro B Type Natriuretic Pept 340 pg/mL (19.9-100); Troponin I < 0.012 ng/mL (0.000-0.034)
[2024-03-20 13:19] LABS: CRP 26.6 mg/dL (<1.0)
[2024-03-20 13:28] LABS: Influenza A QL RT-PCR Negative (Negative); Influenza B QL RT-PCR Negative (Negative); RSV RNA, RT-PCR Negative (Negative); SARS-CoV-2 RNA PCR Negative (Negative)
[2024-03-20 13:30] LABS: White Blood Count 0.8 K/mm3 (4.5-10.0)
[2024-03-20 13:34] LABS: Large Platelets Present; Platelet Estimate Slightly Decreased (Adequate)
[2024-03-20 13:35] LABS: Anisocytosis 2+; Hypochromasia 2+; Ovalocytes 1+; Schistocytes None Seen
[2024-03-20] MEDS: SODIUM CHLORIDE 0.9% IV 2,700 ML/1,000 ML BAG 999 ML IV CONT ×3 (14:04→16:27)
[2024-03-20] MEDS: CEFEPIME 2 GM/NS 50 ML 2 GM/50 ML BAG IVPB (14:04)
--- NOTE | 2024-03-20 14:35 | PM.IMHP ---
H&P: HPI History of Present Illness Date/Time: 03/20/24 14:35 Chief Complaint: Fever. Narrative: This is a very pleasant 73-year-old male with recent diagnosis of limited stage small cell lung cancer involving the right upper lobe, chronic obstructive pulmonary disease, chronic respiratory failure on home oxygen, untreated obstructive sleep apnea, asbestos exposure, pulmonary emboli in November 2021, hypertension, and G6PD deficiency who presented to the emergency department from [facility] for evaluation after he was found to have a fever. The patient provides the following history. He was diagnosed with lung cancer fairly recently and is undergoing chemoradiation per Drs. Brown and Aidan. He had his first chemotherapy treatment about 2 weeks ago and about a week later he started to feel poorly with generalized malaise, fatigue, chills, nonproductive cough, and decreased appetite. He presented today for another radiation treatment, was found to be febrile, and was directed to the ED. he denies sick contacts, headache, neck ache, sore throat, abdominal pain, vomiting, significant diarrhea, dysuria, wounds, rashes, and joint swelling. In the ED: Vital signs on arrival include a temperature of 101.1? F, blood pressure 117/58, pulse 124, respiratory rate 16, SpO2 89% on 3 L. labs were significant for WBC count of 0.8 (14.5 % neutrophils, 25.3% lymphocytes, 1.2% eosinophils, 0 bands) hemoglobin 7.5, platelet 130, creatinine 1.70, lactic acid 2.2, CRP 26.6, proBNP 340. He tested negative for influenza, RSV, and COVID. Chest CTA showed patchy airspace opacities in upper lobes consistent with radiation pneumonitis and/or pneumonia. He was started on cefepime and vancomycin is being admitted in this setting for further treatment. Review of Systems Review of Systems: 12 systems were reviewed and are negative except for as per HPI. [facility] Past Medical History Medical History (Updated 03/20/24 @ 15:12 by Domonique Mix PA-C) Asbestos exposure Benign prostatic hyperplasia Chronic kidney disease Chronic obstructive pulmonary disease Chronic respiratory failure with hypoxia, on home oxygen therapy Chronic viral hepatitis C Elevated PSA Environmental allergies Former smoker G6PD deficiency Hepatitis C History of biliary stent insertion Hypertension Pulmonary emboli (11/2021) Sleep apnea Small cell lung cancer (02/2024) Surgical History Surgical History (Updated 03/20/24 @ 15:01 by Domonique Mix PA-C) History of ankle surgery (2016) History of back surgery Family History Family History Father Cancer Pancreatic cancer Mother Asthma Cerebrovascular accident Sibling Diabetes mellitus Hypertension Heart disease Cerebrovascular accident Cancer of colon Other Lung disease Social History Social History (Updated 03/20/24 @ 15:07 by Domonique Mix PA-C) Social History: Surrogate medical decision maker: Negin Cotto, spouse. Code status: Full code. Smoking packs per day: 1 Smoking cigarettes per day: 20.0 Years smoked: 50 Smoking pack-years: 50.00 Smoking status: Former smoker Tobacco type: cigarettes Smoking end date: 06/13/17 Alcohol intake: former Drinks per week: 1 Alcohol use details: Social alcohol use in moderation. Substance use: never Substance use type: does not use Do You Feel Safe in your Home?: Yes Lack of Transportation: No Lack of Food: Never True Current Housing: I Have Housing Concerned About Future Housing: No Difficulty Paying Gas/Electric Bills: No Difficulty Paying for Meds: No Currently Unemployed: No Education: Associate Degree Difficulty w/ Childcare or Family Care: No Living arrangements: alone Occupation/Education: retired Spiritual care concerns: No Meds Home Medications and Allergies Home Medications Medication Instructions Recorded Co
[2024-03-20] MEDS: VANCOMYCIN 1,250 MG/NS 250 ML 1,250 MG/250 ML BAG 166.67 MG IVPB (14:41)
[2024-03-20 15:50] LABS: Reflex Lactic Acid Yes or No Add Lactic
[2024-03-20 15:50] LABS: MRSA (PCR) NOT DETECTED (NOT DETECTE)
[2024-03-20] MEDS: VANCOMYCIN 1,000 MG/NS 250 ML 1,000 MG/250 ML BAG 250 MG IVPB (16:27)
--- NOTE | 2024-03-20 16:45 | ADMGEN ---
This patient, Lee Cotto Sr., was admitted to 2 Medical Room 242-. Patient/family oriented to hospital policies and general routines including ID bracelet, bed and alarms, visiting hours, pain management, procedures, bathroom and other care routines, personal items, smoking policy, room service/diet, and visiting hours. Information on how to activate the Rapid Response Team has been discussed. Patient/Family are encouraged to report perceived risks to care and to ask questions if they do not understand what they are told or what they should do.
[2024-03-20 17:18] LABS: Lactic Acid Reflex 1.5 mmol/L (0.7-2.0)
--- NOTE | 2024-03-20 18:13 | PDONCCN ---
HPI - Date of Consult Date/Time: 03/20/24 18:13 Requesting Physician: Nicholas Hair MD Primary Care Provider: Jose Rivera MD - Consult Narrative Reason for consult: Limited stage small cell lung cancer Narrative: Lee Cotto Sr. is a 73 year old male with recent diagnosis of limited stage small cell lung cancer status post bronchoscopy and endobronchial ultrasound biopsy of the right upper lobe lung mass and right hilar lymph node done on January 20, 2024. 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 He is due to start 2nd round of chemotherapy in 1 week on March 27. He was in the radiation therapy department for radiation therapy and was told to go to the ER due to palpitation and shortness of breath. CTA chest was performed that showed no evidence of pulmonary embolism, there was mildly enlarged right hilar lymph node, severe COPD, mass in the right upper lobe of the lung consistent with primary bronchogenic carcinoma and patchy airspace opacities consistent with radiation pneumonitis or pneumonia. Labs showed WBC count of 0.8 with ANC of 100. Patient hemoglobin was 7.5. He remains quite tired and fatigued with short of breath. Denies any other complaints. Patient received vancomycin and was started on cefepime. Review of Systems - Review of Systems All systems reviewed & are unremarkable except as noted in [facility] and [facility] Medical History: Medical History (Last Updated 03/20/24 @ 15:11 by Domonique Mix PA-C) Asbestos exposure Benign prostatic hyperplasia Chronic kidney disease Chronic obstructive pulmonary disease Chronic respiratory failure with hypoxia, on home oxygen therapy Chronic viral hepatitis C Elevated PSA Environmental allergies Former smoker G6PD deficiency Hepatitis C History of biliary stent insertion Hypertension Pulmonary emboli Onset Date: 11/2021 Sleep apnea Small cell lung cancer Onset Date: 02/2024 Surgical History: Surgical History (Last Updated 03/20/24 @ 15:01 by Domonique Mix PA-C) History of ankle surgery Onset Date: 2015 History of back surgery Family History: Family History (Last Reviewed 03/20/24 @ 17:28 by Alexia Rg RN) Father Cancer Pancreatic cancer Mother Asthma Cerebrovascular accident Sibling Diabetes mellitus Hypertension Heart disease Cerebrovascular accident Cancer of colon Other Lung disease - Social History Social History: Social History (Last Updated 03/20/24 @ 15:07 by Domonique iMx PA-C) Alcohol Use: Alcohol intake: former Drinks per week: 1 Alcohol use details: Social alcohol use in moderation. Substance Use: Substance use: never Substance use type: does not use Others: Spiritual care concerns: No Living Arrangements: Living arrangements: alone Oppucation/Education: Occupation/Education: retired Smoking Status: Smoking status: Former smoker Tobacco type: cigarettes Smoking end date: 06/13/17 Approximate Smoking End Date: 2017 Smoking Pack-years: Smoking packs per day: 1 Smoking cigarettes per day: 20.0 Years smoked: 50 Smoking pack-years: 50.00 Social Determinants of Health: Do You Feel Safe in your Home?: Yes Has the Lack of Transportation Kept You From Medical Appointments or From Getting Medications?: No Within the Past 12 Months, Were You Worried Whether Your Food Would Run Out Before You Got Money to Buy More?: Never True What is Your Housing Situation Today?: I Have Housing Are You Worried That in the Next 2 Months, You May Not Have Your Own Housing to Live In?: No Do You Have Trouble Paying Your Heating Or Electricity Bill?: No Do You Have Trouble Paying For Medicines?: No Are You Currently Unemployed and Looking for Work?: No Highest Level of Education Completed: A
[2024-03-20] MEDS: LACTATED RINGERS 1,000 ML 90 ML IV CONT (18:57)
[2024-03-20] MEDS: IPRATROPIUM 0.5 MG/ALBUTEROL SULFATE 2.5 MG AMPUL.NEB 3 ML INHALATION (19:57)
[2024-03-20] MEDS: DOXAZOSIN MESYLATE 4 MG TABLET 8 MG PO (20:18)
[2024-03-20] MEDS: METOPROLOL TARTRATE 25 MG TABLET PO (20:18)
[2024-03-20] MEDS: DOXYCYCLINE HYCLATE 100 MG TABLET PO (20:18)
[2024-03-20] MEDS: ROFLUMILAST 500 MCG TABLET PO (20:27)
[2024-03-20 20:48] LABS: Iron 23 ug/dL (49-181)
[2024-03-20 20:50] LABS: NT Pro B Type Natriuretic Pept 354 pg/mL (19.9-100)
[2024-03-20 20:57] LABS: Percent Iron Saturation 11 % (20-50)
[2024-03-20 21:47] LABS: Folic Acid 8.9 ng/mL (2.76->20)
[2024-03-21] VITALS (24 sets, daily range): BP systolic 105–122; BP diastolic 50–61; PULSE 95–122; RESP 16–24; TEMP 36.1–38.1; O2SAT 90–100; BMI 31.6
[2024-03-21] MEDS: ACETAMINOPHEN 325 MG TABLET 650 MG PO ×2 (00:02→15:07)
[2024-03-21] MEDS: CEFEPIME 2 GM/NS 50 ML 2 GM/50 ML BAG IVPB ×2 (01:07→15:02)
[2024-03-21 06:06] LABS: Basophils Percent Auto 0.8 % (0.2-1.2); Hematocrit 21.8 % (42.0-52.0); Immature Granulocyte Absolute 0.01 K/mm3 (0.00-0.031); Immature Granulocyte Percent A 0.8 % (0-0.5); Lymphocytes Absolute Auto 0.26 K/mm3 (0.9-3.2); Lymphocytes Percent Auto 20.2 % (18.3-44.2); Mean Corpuscular HGB Conc 31.2 g/dl (32-36); Mean Corpuscular Hemoglobin 25.7 pg (26-34); Mean Corpuscular Volume 82.3 fl (80-100); Mean Platelet Volume 10.2 fl (7.4-10.4); Monocytes Absolute Auto 0.7 K/mm3 (0.1-0.6); Monocytes Percent Auto 53.5 % (2.6-8.5); Neutrophils Absolute Auto 0.3 K/mm3 (1.3-6.7); Neutrophils Percent Auto 24.7 % (45.5-73.1); Platelet Count Result 137 k/mm3 (150-375); Red Blood Count 2.65 M/mm3 (4.6-6.20); Red Cell Distribution Width 17.1 % (11.5-14.5)
[2024-03-21 06:18] LABS: Alanine Aminotransferase 19 U/L (6-50); Albumin Level 3.2 g/dL (3.5-5.1); Alkaline Phosphatase 120 U/L (38-126); Anion Gap 8 mmol/L (4-12); Aspartate Amino Transferase 21 U/L (17-59); Bilirubin,Total 1.3 mg/dL (0.2-1.3); Blood Urea Nitrogen 17 mg/dL (9-20); Calcium 8.5 mg/dL (8.4-10.2); Carbon Dioxide 24 mmol/L (22-30); Chloride 109 mmol/L (98-107); Estimated CRCL calculation 44 ml/min; Estimated Glomerular Filt Rate 56; Glucose 104 mg/dL (65-110); Magnesium 2.1 mg/dL (1.6-2.3); Potassium 4.4 mmol/L (3.4-5.0); Sodium 141 mmol/L (137-145)
[2024-03-21 06:57] LABS: White Blood Count 1.3 K/mm3 (4.5-10.0)
[2024-03-21 06:58] LABS: Hemoglobin 6.8 g/dL (14.0-18.0)
[2024-03-21 07:00] LABS: Anisocytosis 2+; Burr Cells 1+; Hypochromasia 2+; Ovalocytes 2+; Platelet Estimate Slightly Decreased (Adequate); Poikilocytosis 1+; Schistocytes None Seen; Tear Drop Cells 1+
--- NOTE | 2024-03-21 08:12 | PM.IMPN ---
Progress Note: A&P Assessment and Plan (1) Sepsis: Code(s): A41.9 - Sepsis, unspecified organism Status: Acute Assessment and Plan: He meets sepsis criteria with fever, tachycardia, neutropenia, and lactic acidosis in the setting of infection. Blood pressures have been stable thus far. 30 mL/kg fluid bolus ordered with repeat lactic acid level thereafter. Blood cultures were obtained prior to initiating antibiotics. He has severe neutropenia and has been placed in protective isolation. Source of infection appears to be the lungs. He was started on cefepime and vancomycin in the emergency department and we will add doxycycline for atypical coverage. (2) Pneumonia: Code(s): J18.9 - Pneumonia, unspecified organism Status: Acute Assessment and Plan: see above (3) Severe neutropenia: Code(s): D70.9 - Neutropenia, unspecified Status: Acute (4) Dehydration: Code(s): E86.0 - Dehydration Status: Acute (5) Chronic kidney disease: Code(s): N18.9 - Chronic kidney disease, unspecified Status: Acute (6) Small cell lung cancer: Onset Date: 02/2024 Code(s): C34.90 - Malignant neoplasm of unspecified part of unspecified bronchus or lung Status: Acute (7) Chronic obstructive pulmonary disease: Code(s): J44.9 - Chronic obstructive pulmonary disease, unspecified Status: Acute (8) Chronic respiratory failure with hypoxia, on home oxygen therapy: Code(s): J96.11 - Chronic respiratory failure with hypoxia; Z99.81 - Dependence on supplemental oxygen Status: Acute (9) Hypertension: Code(s): I10 - Essential (primary) hypertension Status: Acute (10) G6PD deficiency: Code(s): D75.A - Hurtghn-6-vvpthttvy dehydrogenase (G6PD) deficiency without anemia Status: Acute Plan The patient presented to the emergency department from radiation oncology for evaluation after he was found to have a fever as detailed in HPI. Anemia appears stable on review of previous labs. We will need to be mindful of his G6PD deficiency with regards to medication choices. He looks dry on exam and by labs and his creatinine is elevated from baseline. He is being judiciously hydrated with close monitoring of volume status and strict I/O. Avoid nephrotoxic agents and renally dose medications. Bladder scan to rule out urinary retention. No acute issues with regards to his COPD. He is at his baseline oxygen requirement. No findings to suggest COPD exacerbation. Blood pressures have been stable and are being monitored closely. Time Spent With Patient Time with patient: Greater than 35 minutes Subjective Date/time seen: 03/21/24 08:12 Interval history: pt is seen and examined. Hg dropped this am- weakness and fatigue- will transfuse 1 unit. Hem/onc following. He is resting in bed, reports weakness but no acute issues. Review of Systems Review of Systems: 12 systems were reviewed and are negative except for as per HPI. Exam Narrative: General: Mildly ill-appearing gentleman in the semi-Sadler position in bed in no acute distress. Weight: 90.2 kg. BMI: 30.2. HEENT: PERRL, EOMI. Sclera anicteric. Tacky mucous membranes. Neck: Supple. No JVD or lymphadenopathy. Respiratory: Mild conversational dyspnea though he appears in no distress. Lung sounds are significantly diminished throughout with occasional expiratory wheezing and bronchial breath sounds in the right mid upper lobe. Cardiovascular: Tachycardic with normal S1-S2. Chest: Port-A-Cath in the right subclavicular space. Gastrointestinal: Abdomen is soft, nontender, and nondistended with positive bowel sounds. Skin: Warm and dry. Normal capillary refill. Extremities are warm and perfused. Extremities: No cyanosis, clubbing, or edema. Radial and pedal pulses intact. Negative Yuridia sign bilaterally. Neurological: Alert and oriented. Cranial nerves 2-12 are grossly intact. No gr
[2024-03-21] MEDS: PANTOPRAZOLE 40 MG TABLET PO ×2 (11:16→20:53)
[2024-03-21] MEDS: METOPROLOL TARTRATE 25 MG TABLET PO ×2 (11:16→20:53)
[2024-03-21] MEDS: amLODIPine BESYLATE 10 MG TABLET PO (11:16)
[2024-03-21] MEDS: MONTELUKAST SODIUM 10 MG TABLET PO (11:16)
[2024-03-21] MEDS: DOXYCYCLINE HYCLATE 100 MG TABLET PO ×2 (11:17→20:53)
[2024-03-21] MEDS: FILGRASTIM-SNDZ 480 MCG/0.8 ML SYRINGE SUB-Q (11:17)
[2024-03-21] MEDS: IPRATROPIUM 0.5 MG/ALBUTEROL SULFATE 2.5 MG AMPUL.NEB 3 ML INHALATION (13:32)
[2024-03-21 14:29] LABS: Hematocrit 23.4 % (42.0-52.0); Hemoglobin 7.3 g/dL (14.0-18.0)
[2024-03-21] MEDS: CENTRAL LINE FLUSH 10 ML IV PUSH ×2 (15:03→20:55)
[2024-03-21] MEDS: VANCOMYCIN 1,500 MG/NS 500 ML 1,500 MG/500 ML BAG 250 MG IVPB (16:48)
[2024-03-21] MEDS: ROFLUMILAST 500 MCG TABLET PO (20:53)
[2024-03-21] MEDS: DOXAZOSIN MESYLATE 4 MG TABLET 8 MG PO (20:53)
[2024-03-22] VITALS (13 sets, daily range): BP systolic 109–131; BP diastolic 47–63; PULSE 100–120; RESP 18–20; TEMP 36.4–37.4; O2SAT 24–100
[2024-03-22] MEDS: ALBUTEROL SULFATE NEB 2.5 MG/3 ML INH INHALATION (01:50)
[2024-03-22] MEDS: CEFEPIME 2 GM/NS 50 ML 2 GM/50 ML BAG IVPB ×2 (02:30→17:40)
[2024-03-22] MEDS: CENTRAL LINE FLUSH 10 ML IV PUSH ×3 (05:45→20:22)
[2024-03-22 06:06] LABS: Estimated CRCL calculation 47 ml/min; Estimated Glomerular Filt Rate 60
--- NOTE | 2024-03-22 08:02 | PM.IMPN ---
Progress Note: A&P Assessment and Plan (1) Sepsis: Code(s): A41.9 - Sepsis, unspecified organism Status: Acute Assessment and Plan: He meets sepsis criteria with fever, tachycardia, neutropenia, and lactic acidosis in the setting of infection. Blood pressures have been stable thus far. 30 mL/kg fluid bolus ordered with repeat lactic acid level thereafter. Blood cultures were obtained prior to initiating antibiotics. He has severe neutropenia and has been placed in protective isolation. Source of infection appears to be the lungs. He was started on cefepime and vancomycin in the emergency department and doxycycline for atypical coverage. - prelim BC negative so far (2) Pneumonia: Code(s): J18.9 - Pneumonia, unspecified organism Status: Acute Assessment and Plan: see above -continue antibiotics (3) Severe neutropenia: Code(s): D70.9 - Neutropenia, unspecified Status: Acute (4) Dehydration: Code(s): E86.0 - Dehydration Status: Acute (5) Chronic kidney disease: Code(s): N18.9 - Chronic kidney disease, unspecified Status: Acute (6) Small cell lung cancer: Onset Date: 02/2024 Code(s): C34.90 - Malignant neoplasm of unspecified part of unspecified bronchus or lung Status: Acute (7) Chronic obstructive pulmonary disease: Code(s): J44.9 - Chronic obstructive pulmonary disease, unspecified Status: Acute (8) Chronic respiratory failure with hypoxia, on home oxygen therapy: Code(s): J96.11 - Chronic respiratory failure with hypoxia; Z99.81 - Dependence on supplemental oxygen Status: Acute (9) Hypertension: Code(s): I10 - Essential (primary) hypertension Status: Acute (10) G6PD deficiency: Code(s): D75.A - Ehgcfjp-9-tvvcpzezh dehydrogenase (G6PD) deficiency without anemia Status: Acute Plan The patient presented to the emergency department from radiation oncology for evaluation after he was found to have a fever as detailed in HPI. Anemia appears stable on review of previous labs. We will need to be mindful of his G6PD deficiency with regards to medication choices. He looks dry on exam and by labs and his creatinine is elevated from baseline. He is being judiciously hydrated with close monitoring of volume status and strict I/O. Avoid nephrotoxic agents and renally dose medications. Bladder scan to rule out urinary retention. No acute issues with regards to his COPD. He is at his baseline oxygen requirement. No findings to suggest COPD exacerbation. Blood pressures have been stable and are being monitored closely. Time Spent With Patient Time with patient: Greater than 35 minutes Subjective Date/time seen: 03/22/24 08:02 Interval history: pt is seen and examined. Received 1 unit if RPBC yesterday He is resting in bed, reports weakness. HR had been somewhat elevated up to 120's but he had been tachycardic on and off for a while based on chart review. Review of Systems Review of Systems: 12 systems were reviewed and are negative except for as per HPI. Exam Narrative: General: Mildly ill-appearing gentleman in the semi-Sadler position in bed in no acute distress. Weight: 90.2 kg. BMI: 30.2. HEENT: PERRL, EOMI. Sclera anicteric. Tacky mucous membranes. Neck: Supple. No JVD or lymphadenopathy. Respiratory: Mild conversational dyspnea though he appears in no distress. Lung sounds are significantly diminished throughout with occasional expiratory wheezing and bronchial breath sounds in the right mid upper lobe. Cardiovascular: Tachycardic with normal S1-S2. Chest: Port-A-Cath in the right subclavicular space. Gastrointestinal: Abdomen is soft, nontender, and nondistended with positive bowel sounds. Skin: Warm and dry. Normal capillary refill. Extremities are warm and perfused. Extremities: No cyanosis, clubbing, or edema. Radial and pedal pulses intact. Negative Yuridia sign bilatera
[2024-03-22] MEDS: amLODIPine BESYLATE 10 MG TABLET PO (09:55)
[2024-03-22] MEDS: METOPROLOL TARTRATE 25 MG TABLET PO ×2 (09:55→20:20)
[2024-03-22] MEDS: PANTOPRAZOLE 40 MG TABLET PO ×2 (09:55→20:22)
[2024-03-22] MEDS: MONTELUKAST SODIUM 10 MG TABLET PO (09:55)
[2024-03-22] MEDS: DOXYCYCLINE HYCLATE 100 MG TABLET PO ×2 (09:55→20:22)
[2024-03-22] MEDS: FILGRASTIM-SNDZ 480 MCG/0.8 ML SYRINGE SUB-Q (09:55)
[2024-03-22 10:13] LABS: Hematocrit 23.7 % (42.0-52.0); Hemoglobin 7.4 g/dL (14.0-18.0); Mean Corpuscular HGB Conc 31.2 g/dl (32-36); Mean Corpuscular Hemoglobin 25.6 pg (26-34); Mean Platelet Volume 10.5 fl (7.4-10.4); Platelet Count Result 195 k/mm3 (150-375); Red Blood Count 2.89 M/mm3 (4.6-6.20); Red Cell Distribution Width 17.2 % (11.5-14.5); White Blood Count 5.5 K/mm3 (4.5-10.0)
[2024-03-22 10:25] LABS: Anion Gap 10 mmol/L (4-12); Blood Urea Nitrogen 18 mg/dL (9-20); Calcium 8.9 mg/dL (8.4-10.2); Carbon Dioxide 21 mmol/L (22-30); Chloride 110 mmol/L (98-107); Estimated CRCL calculation 47 ml/min; Estimated Glomerular Filt Rate 60; Glucose 159 mg/dL (65-110); Potassium 3.6 mmol/L (3.4-5.0); Sodium 141 mmol/L (137-145)
[2024-03-22] MEDS: IPRATROPIUM 0.5 MG/ALBUTEROL SULFATE 2.5 MG AMPUL.NEB 3 ML INHALATION (11:42)
[2024-03-22] MEDS: ROFLUMILAST 500 MCG TABLET PO (20:22)
[2024-03-22] MEDS: DOXAZOSIN MESYLATE 4 MG TABLET 8 MG PO (20:22)
[2024-03-23] VITALS (18 sets, daily range): BP systolic 114–136; BP diastolic 55–70; PULSE 75–126; RESP 16–22; TEMP 36.5–37.2; O2SAT 90–100
[2024-03-23] MEDS: IPRATROPIUM 0.5 MG/ALBUTEROL SULFATE 2.5 MG AMPUL.NEB 3 ML INHALATION ×2 (00:31→12:38)
[2024-03-23] MEDS: CEFEPIME 2 GM/NS 50 ML 2 GM/50 ML BAG IVPB (01:29)
[2024-03-23] MEDS: CENTRAL LINE FLUSH 10 ML IV PUSH ×3 (05:14→20:57)
[2024-03-23] MEDS: DOXYCYCLINE HYCLATE 100 MG TABLET PO (08:39)
[2024-03-23] MEDS: MONTELUKAST SODIUM 10 MG TABLET PO (08:39)
[2024-03-23] MEDS: METOPROLOL TARTRATE 25 MG TABLET PO ×3 (08:39→20:57)
[2024-03-23] MEDS: FILGRASTIM-SNDZ 480 MCG/0.8 ML SYRINGE SUB-Q (08:40)
[2024-03-23] MEDS: PANTOPRAZOLE 40 MG TABLET PO ×2 (08:40→20:56)
[2024-03-23] MEDS: amLODIPine BESYLATE 10 MG TABLET PO (08:40)
[2024-03-23 11:27] LABS: Hematocrit 24.5 % (42.0-52.0); Hemoglobin 7.8 g/dL (14.0-18.0); Mean Corpuscular HGB Conc 31.8 g/dl (32-36); Mean Corpuscular Hemoglobin 25.8 pg (26-34); Mean Corpuscular Volume 81.1 fl (80-100); Mean Platelet Volume 10.3 fl (7.4-10.4); Platelet Count Result 228 k/mm3 (150-375); Red Blood Count 3.02 M/mm3 (4.6-6.20); Red Cell Distribution Width 17.5 % (11.5-14.5); White Blood Count 17.2 K/mm3 (4.5-10.0)
[2024-03-23 11:30] LABS: Anion Gap 8 mmol/L (4-12); Blood Urea Nitrogen 17 mg/dL (9-20); Calcium 9.4 mg/dL (8.4-10.2); Carbon Dioxide 25 mmol/L (22-30); Chloride 109 mmol/L (98-107); Estimated CRCL calculation 55 ml/min; Estimated Glomerular Filt Rate > 60; Glucose 112 mg/dL (65-110); Potassium 4.1 mmol/L (3.4-5.0); Sodium 142 mmol/L (137-145)
--- NOTE | 2024-03-23 12:23 | PM.IMPN ---
Progress Note: A&P Assessment and Plan (1) Sepsis: Code(s): A41.9 - Sepsis, unspecified organism Status: Acute Assessment and Plan: He meets sepsis criteria with fever, tachycardia, neutropenia, and lactic acidosis in the setting of infection. Blood pressures have been stable thus far. 30 mL/kg fluid bolus ordered with repeat lactic acid level thereafter. Blood cultures were obtained prior to initiating antibiotics. He has severe neutropenia and has been placed in protective isolation. Source of infection appears to be the lungs. He was started on cefepime and vancomycin in the emergency department and doxycycline for atypical coverage. - prelim BC negative so far - discussed with pharm ID- will de escalate anabiotics to PO (2) Pneumonia: Code(s): J18.9 - Pneumonia, unspecified organism Status: Acute Assessment and Plan: see above -continue antibiotics (3) Severe neutropenia: Code(s): D70.9 - Neutropenia, unspecified Status: Acute Assessment and Plan: monitor (4) Dehydration: Code(s): E86.0 - Dehydration Status: Acute (5) Chronic kidney disease: Code(s): N18.9 - Chronic kidney disease, unspecified Status: Acute Assessment and Plan: monitor (6) Small cell lung cancer: Onset Date: 02/2024 Code(s): C34.90 - Malignant neoplasm of unspecified part of unspecified bronchus or lung Status: Acute (7) Chronic obstructive pulmonary disease: Code(s): J44.9 - Chronic obstructive pulmonary disease, unspecified Status: Acute (8) Chronic respiratory failure with hypoxia, on home oxygen therapy: Code(s): J96.11 - Chronic respiratory failure with hypoxia; Z99.81 - Dependence on supplemental oxygen Status: Acute (9) Hypertension: Code(s): I10 - Essential (primary) hypertension Status: Acute (10) G6PD deficiency: Code(s): D75.A - Hpcgnmg-0-wgxytmbqh dehydrogenase (G6PD) deficiency without anemia Status: Acute Plan The patient presented to the emergency department from radiation oncology for evaluation after he was found to have a fever as detailed in HPI. Anemia appears stable on review of previous labs. We will need to be mindful of his G6PD deficiency with regards to medication choices. He looks dry on exam and by labs and his creatinine is elevated from baseline. He is being judiciously hydrated with close monitoring of volume status and strict I/O. Avoid nephrotoxic agents and renally dose medications. Bladder scan to rule out urinary retention. No acute issues with regards to his COPD. He is at his baseline oxygen requirement. No findings to suggest COPD exacerbation. Blood pressures have been stable and are being monitored closely. Time Spent With Patient Time with patient: Greater than 35 minutes Subjective Date/time seen: 03/23/24 12:23 Interval history: pt is seen and examined. he is up in the chair- still gets sob with any activity- will do oxygen req.eval prior to discharge. C/o congestion. Review of Systems Review of Systems: 12 systems were reviewed and are negative except for as per HPI. Exam Narrative: General: Mildly ill-appearing gentleman in the semi-Sadler position in bed in no acute distress. Weight: 90.2 kg. BMI: 30.2. HEENT: PERRL, EOMI. Sclera anicteric. Tacky mucous membranes. Neck: Supple. No JVD or lymphadenopathy. Respiratory: Mild conversational dyspnea though he appears in no distress. Lung sounds are significantly diminished throughout with occasional expiratory wheezing and bronchial breath sounds in the right mid upper lobe. Cardiovascular: Tachycardic with normal S1-S2. Chest: Port-A-Cath in the right subclavicular space. Gastrointestinal: Abdomen is soft, nontender, and nondistended with positive bowel sounds. Skin: Warm and dry. Normal capillary refill. Extremities are warm and perfused. Extremities: No cyanosis, clubbing, or ed
[2024-03-23] MEDS: levoFLOXacin 750 MG TABLET PO (14:49)
[2024-03-23] MEDS: ONDANSETRON INJ 4 MG/2 ML VIAL IV PUSH (17:49)
[2024-03-23] MEDS: ROFLUMILAST 500 MCG TABLET PO (20:56)
[2024-03-23] MEDS: guaiFENesin 12 HR 600 MG TABCR PO (20:56)
[2024-03-23] MEDS: DOXAZOSIN MESYLATE 4 MG TABLET 8 MG PO (20:56)
[2024-03-24] VITALS (11 sets, daily range): BP systolic 118–119; BP diastolic 62–67; PULSE 99–121; RESP 16–20; TEMP 36.4–36.6; O2SAT 94–100
[2024-03-24] MEDS: IPRATROPIUM 0.5 MG/ALBUTEROL SULFATE 2.5 MG AMPUL.NEB 3 ML INHALATION ×2 (03:26→09:12)
[2024-03-24] MEDS: CENTRAL LINE FLUSH 10 ML IV PUSH ×2 (05:00→14:30)
[2024-03-24 08:08] LABS: Hemoglobin 7.3 g/dL (14.0-18.0); Mean Corpuscular HGB Conc 31.7 g/dl (32-36); Mean Corpuscular Hemoglobin 26.1 pg (26-34); Mean Corpuscular Volume 82.1 fl (80-100); Mean Platelet Volume 9.9 fl (7.4-10.4); Platelet Count Result 220 k/mm3 (150-375); Red Cell Distribution Width 17.9 % (11.5-14.5); White Blood Count 26.6 K/mm3 (4.5-10.0)
[2024-03-24 08:31] LABS: Anion Gap 7 mmol/L (4-12); Blood Urea Nitrogen 20 mg/dL (9-20); Calcium 9.4 mg/dL (8.4-10.2); Carbon Dioxide 26 mmol/L (22-30); Chloride 108 mmol/L (98-107); Estimated CRCL calculation 54 ml/min; Estimated Glomerular Filt Rate > 60; Glucose 95 mg/dL (65-110); Potassium 3.7 mmol/L (3.4-5.0); Sodium 141 mmol/L (137-145)
--- NOTE | 2024-03-24 08:57 | PM.IMPN ---
Progress Note: A&P Assessment and Plan (1) Sepsis: Code(s): A41.9 - Sepsis, unspecified organism Status: Acute Assessment and Plan: He meets sepsis criteria with fever, tachycardia, neutropenia, and lactic acidosis in the setting of infection. Blood pressures have been stable thus far. 30 mL/kg fluid bolus ordered with repeat lactic acid level thereafter. Blood cultures were obtained prior to initiating antibiotics. He has severe neutropenia and has been placed in protective isolation. Source of infection appears to be the lungs. He was started on cefepime and vancomycin in the emergency department and doxycycline for atypical coverage. - prelim BC negative so far - discussed with pharm ID- will de escalate anabiotics to PO -continue levaquin 750 mg daily- last dose- 03/26 1400 (2) Pneumonia: Code(s): J18.9 - Pneumonia, unspecified organism Status: Acute Assessment and Plan: see above -continue antibiotics (3) Severe neutropenia: Code(s): D70.9 - Neutropenia, unspecified Status: Acute Assessment and Plan: monitor (4) Dehydration: Code(s): E86.0 - Dehydration Status: Acute (5) Chronic kidney disease: Code(s): N18.9 - Chronic kidney disease, unspecified Status: Acute Assessment and Plan: monitor (6) Small cell lung cancer: Onset Date: 02/2024 Code(s): C34.90 - Malignant neoplasm of unspecified part of unspecified bronchus or lung Status: Acute Assessment and Plan: - he received a dose of neupogen- that explains a spike in WBC - will montior- expected to increase tomorrow as well but after- should be slowly improving (7) Chronic obstructive pulmonary disease: Code(s): J44.9 - Chronic obstructive pulmonary disease, unspecified Status: Acute (8) Chronic respiratory failure with hypoxia, on home oxygen therapy: Code(s): J96.11 - Chronic respiratory failure with hypoxia; Z99.81 - Dependence on supplemental oxygen Status: Acute (9) Hypertension: Code(s): I10 - Essential (primary) hypertension Status: Acute (10) G6PD deficiency: Code(s): D75.A - Uckmgmf-0-vqmqgywki dehydrogenase (G6PD) deficiency without anemia Status: Acute Plan The patient presented to the emergency department from radiation oncology for evaluation after he was found to have a fever as detailed in HPI. Anemia appears stable on review of previous labs. We will need to be mindful of his G6PD deficiency with regards to medication choices. He looks dry on exam and by labs and his creatinine is elevated from baseline. He is being judiciously hydrated with close monitoring of volume status and strict I/O. Avoid nephrotoxic agents and renally dose medications. Bladder scan to rule out urinary retention. No acute issues with regards to his COPD. He is at his baseline oxygen requirement. No findings to suggest COPD exacerbation. Blood pressures have been stable and are being monitored closely. Subjective Date/time seen: 03/24/24 08:57 Interval history: pt is seen and examined. - will do oxygen req.eval prior to discharge. C/o congestion- has mucinex if needed. noted spike in wbc- but received Neupogen injections- so expected spike in wbc. Review of Systems Review of Systems: 12 systems were reviewed and are negative except for as per HPI. Exam Narrative: General: Mildly ill-appearing gentleman, pleasant HEENT: PERRL, EOMI. Sclera anicteric. Tacky mucous membranes. Neck: Supple. No JVD or lymphadenopathy. Respiratory: Mild conversational dyspnea though he appears in no distress. Lung sounds are significantly diminished throughout with occasional expiratory wheezing and bronchial breath sounds in the right mid upper lobe. Cardiovascular: Tachycardic with normal S1-S2. Chest: Port-A-Cath in the right subclavicular space. Gastrointestinal: Abdomen is soft, nontender, and nondistended with
[2024-03-24] MEDS: amLODIPine BESYLATE 10 MG TABLET PO (09:38)
[2024-03-24] MEDS: PANTOPRAZOLE 40 MG TABLET PO (09:38)
[2024-03-24] MEDS: MONTELUKAST SODIUM 10 MG TABLET PO (09:39)
[2024-03-24] MEDS: METOPROLOL TARTRATE 25 MG TABLET 50 MG PO (09:39)
[2024-03-24] MEDS: guaiFENesin 12 HR 600 MG TABCR PO (09:39)
--- NOTE | 2024-03-24 12:17 | PM.DS ---
DS: Admitting Diagnosis Discharge Date 03/24 Admitting Diagnosis sob, fatigue DS: Discharge Diagnosis Discharge Diagnosis (1) Sepsis: Code(s): A41.9 - Sepsis, unspecified organism Status: Acute Assessment and Plan: He meets sepsis criteria with fever, tachycardia, neutropenia, and lactic acidosis in the setting of infection. Blood pressures have been stable thus far. 30 mL/kg fluid bolus ordered with repeat lactic acid level thereafter. Blood cultures were obtained prior to initiating antibiotics. He has severe neutropenia and has been placed in protective isolation. Source of infection appears to be the lungs. He was started on cefepime and vancomycin in the emergency department and doxycycline for atypical coverage. - prelim BC negative so far - discussed with pharm ID- will de escalate anabiotics to PO -continue levaquin 750 mg daily- last dose- 03/26 1400 (2) Pneumonia: Code(s): J18.9 - Pneumonia, unspecified organism Status: Acute Assessment and Plan: see above -continue antibiotics (3) Severe neutropenia: Code(s): D70.9 - Neutropenia, unspecified Status: Acute Assessment and Plan: monitor (4) Dehydration: Code(s): E86.0 - Dehydration Status: Acute (5) Chronic kidney disease: Code(s): N18.9 - Chronic kidney disease, unspecified Status: Acute Assessment and Plan: monitor (6) Small cell lung cancer: Onset Date: 02/2024 Code(s): C34.90 - Malignant neoplasm of unspecified part of unspecified bronchus or lung Status: Acute Assessment and Plan: - he received a dose of neupogen- that explains a spike in WBC - will montior- expected to increase tomorrow as well but after- should be slowly improving (7) Chronic obstructive pulmonary disease: Code(s): J44.9 - Chronic obstructive pulmonary disease, unspecified Status: Acute (8) Chronic respiratory failure with hypoxia, on home oxygen therapy: Code(s): J96.11 - Chronic respiratory failure with hypoxia; Z99.81 - Dependence on supplemental oxygen Status: Acute (9) Hypertension: Code(s): I10 - Essential (primary) hypertension Status: Acute (10) G6PD deficiency: Code(s): D75.A - [place]-1-dwtmfevnd dehydrogenase (G6PD) deficiency without anemia Status: Acute Plan The patient presented to the emergency department from radiation oncology for evaluation after he was found to have a fever as detailed in HPI. Anemia appears stable on review of previous labs. We will need to be mindful of his G6PD deficiency with regards to medication choices. He looks dry on exam and by labs and his creatinine is elevated from baseline. He is being judiciously hydrated with close monitoring of volume status and strict I/O. Avoid nephrotoxic agents and renally dose medications. Bladder scan to rule out urinary retention. No acute issues with regards to his COPD. He is at his baseline oxygen requirement. No findings to suggest COPD exacerbation. Blood pressures have been stable and are being monitored closely. DS: Summary Hospital Course Hospital Course: Lee Cotto Sr. is a 73 year old male with recent diagnosis of limited stage small cell lung cancer status post bronchoscopy and endobronchial ultrasound biopsy of the right upper lobe lung mass and right hilar lymph node done on January 20, 2024. Patient received 1 chemotherapy session. He is due to start 2nd round of chemotherapy in 1 week on March 27. He was in the radiation therapy department for radiation therapy and was told to go to the ER due to palpitation and shortness of breath. CTA chest was performed - no PE there was mildly enlarged right hilar lymph node, severe COPD, mass in the right upper lobe of the lung consistent with primary bronchogenic carcinoma and patchy airspace opacities consistent with radiation pneumonitis or pneumonia. Labs showed WBC count of 0.8 with ANC
[2024-03-24] MEDS: ALBUTEROL SULFATE NEB 2.5 MG/3 ML INH INHALATION (13:52)
[2024-03-24] MEDS: levoFLOXacin 750 MG TABLET PO (14:30)
[2024-03-24 16:35] LABS: Pneumococcal Antigen Urine NOT DETECTED
[2024-03-24 22:09] LABS: Legionella pneumophila Ag Ur NOT DETECTED
[2024-03-27 18:18] LABS: Mycoplasma IgM Antibody Titer 282 U/mL
== END 2024-03-24 15:15 | disposition home or self-care (01) | DRG 871 ==
LOC: ANHED 13:08 → ANH3MEDSUR 15:27 → ANH2MED 15:54
PROVIDERS: Internal Medicine Hematology & Oncology; Nurse Practitioner; Physician Assistant; Admitting Provider General Practice; Emergency Provider Emergency Medicine; PCP Family Medicine; Visit Provider General Practice
DX: A41.9 Sepsis, unspecified organism (principal); J18.9 Pneumonia, unspecified organism; J96.11 Chronic respiratory failure with hypoxia; C34.11 Malignant neoplasm of upper lobe, right bronchus or lung; J44.0 Chronic obstructive pulmonary disease with (acute) lower respiratory infection; D70.9 Neutropenia, unspecified; E86.0 Dehydration; I12.9 Hypertensive chronic kidney disease with stage 1 through stage 4 chronic kidney disease, or unspecified chronic kidney disease; N18.9 Chronic kidney disease, unspecified; N40.0 Benign prostatic hyperplasia without lower urinary tract symptoms; D75.A Glucose-6-phosphate dehydrogenase (G6PD) deficiency without anemia; B18.2 Chronic viral hepatitis C; G47.33 Obstructive sleep apnea (adult) (pediatric); Z20.822 Contact with and (suspected) exposure to COVID-19; Z77.090 Contact with and (suspected) exposure to asbestos; Z99.81 Dependence on supplemental oxygen; Z79.82 Long term (current) use of aspirin; Z87.891 Personal history of nicotine dependence; Z86.711 Personal history of pulmonary embolism
CPT/HCPCS: 36415; 36430; 71045; 71275; 80048; 80053; 81001; 82565; 82607; 82728; 82746; 83540; 83550; 83605; 83735; 83880; 84484; 85014; 85018; 85025; 85027; 85610; 85730; 86140; 86738; 86850; 86900; 86901; 86920; 87040; 87070; 87205; 87449; 87637; 87641; 87899; 93005; 94640; 96365; 96375; 96376; 99285; A9270; G0378; J0692; J1642; J2405; J3370; J7030; J7120; P9016; Q5101; Q9967

== ENCOUNTER 2024-03-27 08:09 | Outpatient (RCR) | payer MEDICARE, MEDICAID, SELFPAY ==
[2024-03-27] VITALS (10 sets, daily range): BP systolic 112–132; BP diastolic 62–73; PULSE 96–103; RESP 14–16; TEMP 36.7–37.3; O2SAT 98–100
[2024-03-27] MEDS: SODIUM CHLORIDE 0.9% IV 250 ML 30 ML IV CONT (09:15)
[2024-03-27] MEDS: ACETAMINOPHEN 325 MG TABLET 650 MG PO (09:15)
[2024-03-27] MEDS: diphenhydrAMINE HCl CAP 25 MG CAPSULE PO (09:15)
--- NOTE | 2024-03-27 09:45 | PC.NURSE ---
TOOK OVER CARE OF PT. FROM EMERALD WARD RN. DENIES PAIN OR SOB. IS ON 3L O2 NC HERE HE IS AT HOME. STATES AGREED TO HAVE A PERIPHERAL IV SITE STARTED FOR BLOOD TRANSFUSION RATHER THAN HAVE R. CHEST PORT A CATH ACCESSED. EXPLAINED PLAN AND THAT LASIX 20MG IVP IS ORDERED TO BE GIVEN IVP BETWEEN UNITS OF BLOOD. PT. IS AGREEABLE.
[2024-03-27] MEDS: FUROSEMIDE INJ 40 MG/4 ML VIAL 20 MG IV PUSH (10:53)
== END 2024-06-25 23:59 | disposition home or self-care (01) ==
LOC: ANHCPCTRAN 08:09
PROVIDERS: PCP Family Medicine; Visit Provider Internal Medicine Hematology & Oncology
DX: C34.90 Malignant neoplasm of unspecified part of unspecified bronchus or lung (principal)
CPT/HCPCS: 36415; 36430; 86850; 86900; 86901; 86923; 96374; A9270; J1940; J7040; J7050; P9016

== ENCOUNTER 2024-04-15 11:37 | Inpatient (IN) | payer MEDICARE, MEDICAID, SELFPAY ==
[2024-04-15] VITALS (19 sets, daily range): BP systolic 98–127; BP diastolic 49–74; PULSE 109–132; RESP 17–30; TEMP 36.7–37.6; O2SAT 90–100
--- NOTE | ~2024-04-15 | XR_ITS ---
XR chest 1V portable DATE: 04/15/2024 18:18 INDICATION: Port access TECHNIQUE: Portable upright AP chest on 04/15/2024 1816 hours COMPARISON: 04/15/2024 AP and lateral chest FINDINGS: Right upper extremity subclavian Port-A-Cath catheter tip overlies the superior vena cava. Bilateral hyperinflation consistent with bullous emphysema. Patchy bilateral pulmonary infiltrates an d scarring. No pneumothorax is evident no pleural effusion is detected. Osteopenia. IMPRESSION: Right Port-A-Cath catheter tip overlies superior vena cava Bilateral infiltrates and scarring Severe bullous emphysema Reviewed, dictated and finalized at location A. KING INSPECTOR
--- NOTE | ~2024-04-15 | XR_ITS ---
EXAMINATION: XR chest 2V DATE: 04/15/2024 12:53 INDICATION: Chest pain with increasing shortness of breath TECHNIQUE: frontal and lateral views of the chest were obtained. COMPARISON: Chest radiograph dated 03/20/2024 FINDINGS: New wedge-shaped airspace opacities in the right midlung zone. Unchanged pattern of linear discoid at electasis/scarring scattered throughout both lungs. No pleural effusion or pneumothorax. Blunting at the left costophrenic angle and bilateral posterior sulci consistent with very small bilateral pleura l effusions. Heart size is normal. Right subclavian central venous port catheter with distal tip at t he midsuperior vena cava. A couple likely drainage catheters project over the right upper quadrant. IMPRESSION: 1. A couple new wedge-shaped airspace opacities at the right midlung zone which could represent pneum onia or pulmonary infarcts in the appropriate clinical setting. Reviewed, dictated and finalized at location A. ROLL INSPECTOR IMPRESSION: 1. A couple new wedge-shaped airspace opacities at the right midlung zone which could represent pneumonia or pulmonary infarcts in the appropriate clinical se tting.
--- NOTE | ~2024-04-15 | CT_ITS ---
EXAMINATION: CTA chest PE protocol DATE: 04/15/2024 14:10 INDICATION: Shortness of breath, tachycardia TECHNIQUE: Computed tomography angiography (CTA) of the chest was performed with 100 mL Omnipaque-350 intravenous contrast timed to evaluate the pulmonary arteries. Coronal maximum intensity projection 3D-reconstructions were created by the technologist. Automated exposure control and iterative reconst ruction technique were employed. Exam dose: 793.88 mGy-cm total exam DLP. COMPARISON: 04/15/2024 2 view chest FINDINGS: There is moderate opacification of the pulmonary arteries; no pulmonary embolus is identifi ed. Small pericardial effusion. Heart size is within normal limits. There is severe bullous emphysema. There is chronic prominent discoid scarring in the left upper lob e, to lesser extent the right middle lobe. There is diminished size of the right upper lobe paramediastinal mass. There is increased patchy right upper lobe infiltrate and consolidation. There is focal patchy consolidation in the posterior segment, left upper lobe. There is thoracic aortic and abdominal aortic calcification but no dissection is detected. The ascen ding aorta measures up to 4.1 cm diameter. Biliary stent, with bile duct dilatation and pneumobilia Polycystic kidneys are again noted. IMPRESSION: No pulmonary embolus detected Severe bullous emphysema, bilateral scarring Mildly diminished size of right upper lobe paramediastinal mass density Prominent increased infiltrate in the right upper lobe, small new focal consolidation in the left upp er lobe Bibasilar atelectasis Reviewed, dictated and finalized at Location [facility]. Reviewed, dictated and finalized at location A. HYDRANT MECHANIC IMPRESSION: No pulmonary embolus detected Severe bullous emphysema, bilateral scarring Mildly diminished size of right upper lobe paramediastinal mass density Prominent increased infiltrate in the right upper lobe, small new focal consoli dation in the left upper lobe Bibasilar atelectasis
--- NOTE | 2024-04-15 11:42 | ECG_ITS ---
Test Date: 2024-04-15 11:45:54 Measurements Intervals [place] Rate: 134 P: 52 AK: 142 QRS: 42 QRSD: 84 T: 58 QT: 280 QTc: 418 Interpretive Statements SINUS TACHYCARDIA MINIMAL Q WAVES- INF/LAT LEADS ABNORMAL ECG Compared to ECG 03/20/2024 12:35:54 HEART RATE HAS INCREASED Electronically Signed On 04-15-2024 12:56:08 ENVIRONMENTAL RESEARCH PROJECT MANAGER by Cliff Courtney D.O.
[2024-04-15 12:20] LABS: Basophils Percent Auto 0.7 % (0.2-1.2); Eosinophils Percent Auto 0.2 % (0-4.4); Hematocrit 22.1 % (42.0-52.0); Immature Granulocyte Absolute 0.23 K/mm3 (0.00-0.031); Immature Granulocyte Percent A 5.1 % (0-0.5); Lymphocytes Absolute Auto 0.21 K/mm3 (0.9-3.2); Lymphocytes Percent Auto 4.6 % (18.3-44.2); Mean Corpuscular HGB Conc 31.7 g/dl (32-36); Mean Corpuscular Hemoglobin 26.5 pg (26-34); Mean Corpuscular Volume 83.7 fl (80-100); Mean Platelet Volume 10.5 fl (7.4-10.4); Monocytes Absolute Auto 1.3 K/mm3 (0.1-0.6); Monocytes Percent Auto 27.7 % (2.6-8.5); Neutrophils Absolute Auto 2.8 K/mm3 (1.3-6.7); Neutrophils Percent Auto 61.7 % (45.5-73.1); Platelet Count Result 159 k/mm3 (150-375); Red Blood Count 2.64 M/mm3 (4.6-6.20); Red Cell Distribution Width 20.1 % (11.5-14.5); White Blood Count 4.6 K/mm3 (4.5-10.0)
[2024-04-15 12:31] LABS: Alanine Aminotransferase 12 U/L (6-50); Albumin Level 3.8 g/dL (3.5-5.1); Alkaline Phosphatase 93 U/L (38-126); Anion Gap 14 mmol/L (4-12); Aspartate Amino Transferase 12 U/L (17-59); Blood Urea Nitrogen 20 mg/dL (9-20); Carbon Dioxide 21 mmol/L (22-30); Chloride 103 mmol/L (98-107); Estimated CRCL calculation 36 ml/min; Estimated Glomerular Filt Rate 45; Glucose 133 mg/dL (65-110); INR 1.3; Lactic Acid Reflex 2.1 mmol/L (0.7-2.0); Lipase 22 U/L (23-300); Potassium 4.1 mmol/L (3.4-5.0); Prothrombin Time 16.2 Seconds (11.1-14.7); Sodium 138 mmol/L (137-145)
[2024-04-15 12:32] LABS: Partial Thromboplastin Time 33.3 Seconds (22.3-36.8)
[2024-04-15 12:35] LABS: Magnesium 1.8 mg/dL (1.6-2.3)
[2024-04-15 12:43] LABS: Platelet Estimate Adequate (Adequate); Troponin I < 0.012 ng/mL (0.000-0.034)
[2024-04-15 12:44] LABS: Anisocytosis 1+; Dohle Bodies Present; Polychromasia 1+
[2024-04-15 12:45] LABS: Schistocytes None Seen
[2024-04-15] MEDS: SODIUM CHLORIDE 0.9% IV 500 ML 999 ML IV CONT (13:34)
--- NOTE | 2024-04-15 13:56 | ED.GENADULT ---
HPI - General Adult General Chief complaint: Shortness of Breath/Dyspnea Stated complaint: severe sob Time Seen by Provider: 04/15/24 13:03 History of Present Illness HPI narrative: 73-year-old male presenting to the emergency department for evaluation for worsening shortness of breath. Patient does have history of small cell lung cancer in follows up with Dr Brown. Patient reports that he had radiation treatment on Tuesday. Patient states at that time his oxygenation was noted to be low and his heart rate was high. Patient states that he felt that his symptoms continue to worsen yesterday and 3 today. Patient states he did not sleep all last night. Patient does have some right-sided abdominal pain. Related Data Home Medications Medication Instructions Recorded Confirmed amlodipine 10 mg tablet 10 mg PO QAM 03/07/20 04/15/24 doxazosin 8 mg tablet 8 mg PO HS 03/07/20 04/15/24 ergocalciferol (vitamin D2) 1,250 1,250 mcg PO WEEKLY 03/07/20 04/15/24 mcg (50,000 unit) capsule fluticasone propionate 50 1 spray intranasal DAILY PRN 03/07/20 04/15/24 mcg/actuation nasal Congestion spray,suspension nebulizer and compressor (Easy Neb #1 ea 03/07/20 04/15/24 Compressor Nebulizer) sildenafil 100 mg tablet 100 mg PO DAILY PRN Erectile 03/07/20 04/15/24 Dysfunction aspirin 81 mg tablet 81 mg PO DAILY 08/04/20 04/15/24 omeprazole 40 mg capsule,delayed 40 mg PO DAILY 01/28/23 04/15/24 release methocarbamol 500 mg tablet 500 mg PO PRN PRN back spasms 08/30/23 04/15/24 roflumilast 500 mcg tablet 500 mcg PO HS copd 08/30/23 04/15/24 Vitamin C 1 tab-cap PO DAILY 03/30/24 04/15/24 ferrous sulfate 1 tab-cap PO DAILY 03/30/24 04/15/24 vitamin [id number] acid 1 tab-cap PO DAILY 03/30/24 04/15/24 baclofen 10 mg tablet 10 mg PO TID PRN Hiccups 04/15/24 04/15/24 budesonide 0.25 mg/2 mL suspension 0.25 mg inhalation BID 04/15/24 04/15/24 for nebulization levocetirizine 5 mg tablet 5 mg PO DAILY 04/15/24 04/15/24 metoprolol tartrate 25 mg tablet 25 mg PO HS 04/15/24 04/15/24 Allergies Allergy/AdvReac Type Severity Reaction Status Date / Time lisinopril Allergy Severe Swelling Verified 04/15/24 19:53 Penicillins Allergy Intermediate Hives / Verified 04/15/24 19:53 Red Face Sulfa (Sulfonamide Allergy Intermediate Hives / Verified 04/15/24 19:53 Antibiotics) Red Face Review of Systems Review of Systems: All systems reviewed & are unremarkable except as noted in HPI and below PMFSH Past Medical History Medical History (Updated 04/15/24 @ 16:52 by Emily Hassan APRN) Asbestos exposure Benign prostatic hyperplasia Chronic kidney disease Chronic obstructive pulmonary disease Chronic respiratory failure with hypoxia, on home oxygen therapy Chronic viral hepatitis C Elevated PSA Environmental allergies Former smoker Former smoker G6PD deficiency GERD (gastroesophageal reflux disease) Hepatitis C History of biliary stent insertion Hypertension Pulmonary emboli (11/2021) Sleep apnea Small cell lung cancer (02/2024) Surgical History Surgical History (Updated 03/20/24 @ 15:01 by Domonique Mix PA-C) History of ankle surgery (2015) History of back surgery Family History Family History Father Cancer Pancreatic cancer Mother Asthma Cerebrovascular accident Sibling Diabetes mellitus Hypertension Heart disease Cerebrovascular accident Cancer of colon Other Lung disease Social History Social History (Updated 03/20/24 @ 15:07 by Domonique Mix PA-C) Social History: Surrogate medical decision maker: Negin Cotto, spouse. Code status: Full code. Smoking packs per day: 1 Smoking cigarettes per day: 20.0 Years smoked: 50 Smoking pack-years: 50.00 Smoking status: Former smoker Tobacco type: cigarettes Smoking end date: 06/13/17 Alcohol intake: former Drinks per week: 1 Alcohol use details: Social alcohol use in moderation. Substance use: never Substance use type: does not use Do You Feel Safe in your Home?: Yes Lack of Transportation: No Lack of Food: Never True Current Housing: I Have Housing Concerned About Future Housing: No Difficulty Paying Gas/Electric Bills: YES Difficulty Paying for Meds: No Currently Unemployed: No Education: High School Diploma/GED Difficulty w/ Childcare or Family Care: No Living arrangements: alone Occupation/Education: retired Spiritual care concerns: No Exam Narrative: APPEARANCE: Well appearing, no pain, no distress, well-nourished. HEAD: normocephalic, atraumatic. EYES: PERRLA/EOMI, conjunctivae clear. NOSE: Normal no drainage EARS:TMS clear with good light reflex. THROAT: Pharynx clear, no exudate. NECK: Supple. No adenopathy, no masses. RESPIRATORY: Airway patent, respirations nonlabored. Clear to auscultation bilaterally, no rales, rhonchi, wheezing. CARDIOVASCULAR: Regular rate and rhythm without murmurs rubs or gallops. ABDOMINAL: Soft, nontender, nondistended, normal bowel sounds MUSCULOSKELETAL: Moves all extremities. Strength/ROM intact, No edema, No calf tenderness. NEURO: Alert. Cranial nerves II through XII intact. Grossly intact SKIN: Warm, dry. Normal Color Course Vital Signs Vital signs: Vital Signs Temperature 99.0 F 04/15/24 11:41 Pulse Rate 132 H 04/15/24 11:41 Respiratory Rate 24 H 04/15/24 11:41 Blood Pressure 98/64 L 04/15/24 11:41 Pulse Oximetry 93 04/15/24 11:41 Temperature 98.8 F 04/15/24 20:08 Pulse Rate 115 H 04/15/24 20:08 Respiratory Rate 17 04/15/24 20:08 Blood Pressure 120/69 04/15/24 20:08 Pulse Oximetry 95 04/15/24 20:08 Oxygen Delivery Nasal Cannula 04/15/24 12:05 Oxygen Flow Rate 4 04/15/24 12:05 Medical Decision Making [facility] Narrative Medical decision making narrative: 73-year-old male presents to the emergency department for evaluation for increased work of breathing shortness of breath and increased O2 requirement. Patient is afebrile with no leukocytosis and hemoglobin of 7.0 which is trending down for the patient. Patient denies any active bleeding. No acute abnormalities on the patient's CMP patient was negative for influenza RSV and for COVID. CTA was ordered due to concern for pulmonary embolism. CTA showed no evidence of pulmonary embolism but did show evidence right-sided pneumonia. Patient was started Levaquin and vancomycin and blood cultures were ordered. Case was discussed with hospitalist patient was accepted admission. Differential Diagnosis Differential Diagnosis: Pulmonary embolism, pneumonia, pneumothorax Vital Signs Vital Signs: Vital Signs Temperature 99.0 F 04/15/24 11:41 Pulse Rate 132 H 04/15/24 11:41 Respiratory Rate 24 H 04/15/24 11:41 Blood Pressure 98/64 L 04/15/24 11:41 Pulse Oximetry 93 04/15/24 11:41 Temperature 98.8 F 04/15/24 20:08 Pulse Rate 115 H 04/15/24 20:08 Respiratory Rate 17 04/15/24 20:08 Blood Pressure 120/69 04/15/24 20:08 Pulse Oximetry 95 04/15/24 20:08 Oxygen Delivery Nasal Cannula 04/15/24 12:05 Oxygen Flow Rate 4 04/15/24 12:05 Lab Data Lab results reviewed: Yes I reviewed the patient's lab results. 04/15/24 12:13 04/15/24 12:13 Labs: Lab Results 04/15/24 04/15/24 04/15/24 Range/Units 12:13 12:13 13:22 WBC 4.6 (4.5-10.0) K/mm3 RBC 2.64 L (4.6-6.20) M/mm3 Hgb 7.0 L (14.0-18.0) g/dL Hct 22.1 L (42.0-52.0) % MCV 83.7 (80-100) fl MCH 26.5 (26-34) pg MCHC 31.7 L (32-36) g/dl RDW 20.1 H (11.5-14.5) % Plt Count 159 (150-375) k/mm3 MPV 10.5 H (7.4-10.4) fl Immature Gran % (Auto) 5.1 H (0-0.5) % Neut % (Auto) 61.7 (45.5-73.1) % Lymph % (Auto) 4.6 L (18.3-44.2) % [place] % (Auto) 27.7 H (2.6-8.5) % Eos % (Auto) 0.2 (0-4.4) % Baso % (Auto) 0.7 (0.2-1.2) % Lymph # (Auto) 0.21 L (0.9-3.2) K/mm3 [place] # (Auto) 1.3 H (0.1-0.6) K/mm3 Eos # (Auto) 0.0 (0-0.3) K/mm3 Baso # (Auto) 0.0 (0.0-0.1) K/mm3 Abs Immat Gran (auto) 0.23 H (0.00-0.031) K/mm3 Absolute Neuts (auto) 2.8 (1.3-6.7) K/mm3 Absolute Nucleated RBC 0.000 (0.0-0.012) K/mm3 Nucleated RBC % 0.0 (0.0-0.2) % Dohle Bodies Present Platelet Estimate Adequate (Adequate) Polychromasia 1+ Anisocytosis 1+ Schistocytes None seen PT 16.2 H (11.1-14.7) Seconds INR 1.3 APTT 33.3 (22.3-36.8) Seconds D-Dimer 2.20 H (<0.48) ug/mL Sodium 138 (137-145) mmol/L Potassium 4.1 (3.4-5.0) mmol/L Chloride 103 (98-107) mmol/L Carbon Dioxide 21 L (22-30) mmol/L Anion Gap 14 H (4-12) mmol/L BUN 20 (9-20) mg/dL Creatinine 1.80 H (0.7-1.3) mg/dL Estim Creat Clear Calc 36 ml/min Estimated GFR 45 L (59 - ) Glucose 133 H (65-110) mg/dL Lactic Acid 2.1 H (0.7-2.0) mmol/L Calcium 9.0 (8.4-10.2) mg/dL Magnesium 1.8 Cancelled (1.6-2.3) mg/dL Total Bilirubin 1.0 (0.2-1.3) mg/dL AST 12 L (17-59) U/L ALT 12 (6-50) U/L Alkaline Phosphatase 93 (38-126) U/L Troponin I < 0.012 (0.000-0.034) ng/mL Total Protein 7.0 (6.3-8.2) g/dL Albumin 3.8 (3.5-5.1) g/dL Lipase 22 L (23-300) U/L Nasal MRSA (PCR) (NOT DETECTE) Influenza A (RT-PCR) Negative (Negative) Influenza B (RT-PCR) Negative (Negative) RSV (RT-PCR) Negative (Negative) SARS-CoV-2 RNA (RT-PCR) Negative (Negative) 04/15/24 04/15/24 04/15/24 Range/Units 15:20 15:35 16:18 WBC (4.5-10.0) K/mm3 RBC (4.6-6.20) M/mm3 Hgb (14.0-18.0) g/dL Hct (42.0-52.0) % MCV (80-100) fl MCH (26-34) pg MCHC (32-36) g/dl RDW (11.5-14.5) % Plt Count (150-375) k/mm3 MPV (7.4-10.4) fl Immature Gran % (Auto) (0-0.5) % Neut % (Auto) (45.5-73.1) % Lymph % (Auto) (18.3-44.2) % [place] % (Auto) (2.6-8.5) % Eos % (Auto) (0-4.4) % Baso % (Auto) (0.2-1.2) % Lymph # (Auto) (0.9-3.2) K/mm3 [place] # (Auto) (0.1-0.6) K/mm3 Eos # (Auto) (0-0.3) K/mm3 Baso # (Auto) (0.0-0.1) K/mm3 Abs Immat Gran (auto) (0.00-0.031) K/mm3 Absolute Neuts (auto) (1.3-6.7) K/mm3 Absolute Nucleated RBC (0.0-0.012) K/mm3 Nucleated RBC % (0.0-0.2) % Dohle Bodies Platelet Estimate (Adequate) Polychromasia Anisocytosis Schistocytes PT (11.1-14.7) Seconds INR APTT (22.3-36.8) Seconds D-Dimer (<0.48) ug/mL Sodium (137-145) mmol/L Potassium (3.4-5.0) mmol/L Chloride (98-107) mmol/L Carbon Dioxide (22-30) mmol/L Anion Gap (4-12) mmol/L BUN (9-20) mg/dL Creatinine (0.7-1.3) mg/dL Estim Creat Clear Calc ml/min Estimated GFR (59 - ) Glucose (65-110) mg/dL Lactic Acid 1.2 (0.7-2.0) mmol/L Calcium (8.4-10.2) mg/dL Magnesium (1.6-2.3) mg/dL Total Bilirubin (0.2-1.3) mg/dL AST (17-59) U/L ALT (6-50) U/L Alkaline Phosphatase (38-126) U/L Troponin I < 0.012 (0.000-0.034) ng/mL Total Protein (6.3-8.2) g/dL Albumin (3.5-5.1) g/dL Lipase (23-300) U/L Nasal MRSA (PCR) Not detected (NOT DETECTE) Influenza A (RT-PCR) (Negative) Influenza B (RT-PCR) (Negative) RSV (RT-PCR) (Negative) SARS-CoV-2 RNA (RT-PCR) (Negative) Imaging Data Radiologist's impression: Impressions Chest X-Ray 04/15/24 13:11 IMPRESSION: 1. A couple new wedge-shaped airspace opacities at the right midlung zone which could represent pneumonia or pulmonary infarcts in the appropriate clinical setting. Chest CTA 04/15/24 14:27 IMPRESSION: No pulmonary embolus detected Severe bullous emphysema, bilateral scarring Mildly diminished size of right upper lobe paramediastinal mass density Prominent increased infiltrate in the right upper lobe, small new focal consolidation in the left upper lobe Bibasilar atelectasis Discharge Plan Discharge Clinical Impression: Tachycardia, Hypoxic Pneumonia Qualifiers: Pneumonia type: due to unspecified organism Laterality: bilateral Lung location: upper lobe of lung Qualified Code(s): J18.9 - Pneumonia, unspecified organism Patient Disposition: Still a Patient Condition: Serious
[2024-04-15 14:02] LABS: Influenza A QL RT-PCR Negative (Negative); Influenza B QL RT-PCR Negative (Negative); RSV RNA, RT-PCR Negative (Negative); SARS-CoV-2 RNA PCR Negative (Negative)
[2024-04-15 15:17] LABS: Reflex Lactic Acid Yes or No Add Lactic
[2024-04-15 15:45] LABS: Troponin I < 0.012 ng/mL (0.000-0.034)
[2024-04-15 15:53] LABS: Lactic Acid 1.2 mmol/L (0.7-2.0)
--- NOTE | 2024-04-15 16:20 | P.HP_ITS ---
H&P: HPI History of Present Illness Date/Time: 04/15/24 16:20 Chief Complaint: Shortness of Breath Narrative: 73 y/o M presents here with chest pain and shortness of breath with PMH of Asbestos exposure, BPH, CKD, COPD, hep C, PE, HTN, sleep apnea, and small cell lung cancer currently in treatment. The patient presents here from home for further evaluation of shortness of breath, chest pain, and rapid heart rate. Patient has history of small cell lung cancer for which he is undergoing treatment currently. Last radiation treatment on Tuesday, 04/13. during this treatment was noted that he had an elevated heart rate, fever, and his oxygen level was mildly low. He reports post treatment he developed the chest pain, SOB, and tachycardia.. Chest pain described as right sided, stabbing, radiating into his upper back and right shoulder, intermittent, aggravated by cough, and alleviated by resting. Chest pain worse is not worse with palpation, pain better with splinting with cough. Per Radiation/Oncology note on same day imaging showed possible right upper lobe infiltrate. Plan for trial of supportive care for a suspected upper respiratory infection including a decongestant and cough suppressant. If no improvement with supportive care, patient was educated to seek care in the ED. Since this treatment he has been progressively feeling worse. Now experiencing mild intermittent diaphoresis in volving his head, fever, chills, and body aches. Patient utilized ibuprofen and his home nebulizers. Denies nausea, vomiting, diarrhea, abdominal pain. Hx of JIMMY, not on CPAP. Also has history of chronic respiratory failure on 3L at baseline, npw requiring 4L NC. Initial VS at presentation: 99? F, HR 132, R are 24, 98/64, and 93% on 4L NC. ED workup showed: no leukocytosis, hemoglobin 7.0 (previously 9.1 on 04/02/2024), absolute neutrophils within normal limits, INR 1.3, elevated D- dimer, creatinine 1.8 and GFR 45 (previously 1.2 and GFR >60 on 03/28/2024), troponin negative x2, glucose 133, initial lactic 2.1, and viral PCR negative. CXR showed a few new wedge-shaped airspace opacities at the right midlung zone which could represent pneumonia versus pulmonary infarcts. Chest CTA showed no PE, severe bolus emphysema, bilateral scarring, mildly diminished size of right upper lobe paramediastinal mass, prominent increased infiltrate in the right upper lobe and small focal consolidation in the left upper lobe, bibasilar atelectasis. EKG showed sinus tachycardia with a rate of 134, minimal Q-waves in the inferior/lateral leads. When compared to EKG done in March, the heart rate has increased. Review of Systems Review of Systems: All systems reviewed & are unremarkable except as noted in HPI and below PMFSH Past Medical History Medical History Asbestos exposure Benign prostatic hyperplasia Chronic kidney disease Chronic obstructive pulmonary disease Chronic respiratory failure with hypoxia, on home oxygen therapy Chronic viral hepatitis C Elevated PSA Environmental allergies Former smoker Former smoker G6PD deficiency GERD (gastroesophageal reflux disease) Hepatitis C History of biliary stent insertion Hypertension Pulmonary emboli (11/2021) Sleep apnea Small cell lung cancer (02/2024) Surgical History Surgical History History of ankle surgery (2015) History of back surgery Family History Family History Father Cancer Pancreatic cancer Mother Asthma Cerebrovascular accident Sibling Diabetes mellitus Hypertension Heart disease Cerebrovascular accident Cancer of colon Other Lung disease Social History Social History Social History: Surrogate medical decision maker: Negin Cotto, spouse. Code status: Full code. Smoking packs per day: 1 Smoking cigarettes per day: 20.0 Years smoked: 50 Smoking pack-years: 50.00 Smoking status: Former smoker Tobacco type: cigarettes Smoking end date: 06/13/17 Alcohol intake: former Drinks per week: 1 Alcohol use details: Social alcohol use in moderation. Substance use: never Substance use type: does not use Do You Feel Safe in your Home?: Yes Lack of Transportation: No Lack of Food: Never True Current Housing: I Have Housing Concerned About Future Housing: No Difficulty Paying Gas/Electric Bills: YES Difficulty Paying for Meds: No Currently Unemployed: No Education: High School Diploma/GED Difficulty w/ Childcare or Family Care: No Living arrangements: alone Occupation/Education: retired Spiritual care concerns: No Meds Home Medications and Allergies Home Medications Medication Instructions Recorded Confirmed Type amlodipine 10 mg tablet 10 mg PO QAM 03/07/20 04/15/24 History doxazosin 8 mg tablet 8 mg PO HS 03/07/20 04/15/24 History ergocalciferol (vitamin D2) 1,250 1,250 mcg PO WEEKLY 03/07/20 04/15/24 History mcg (50,000 unit) capsule fluticasone propionate 50 1 spray intranasal DAILY PRN 03/07/20 04/15/24 History mcg/actuation nasal Congestion spray,suspension nebulizer and compressor (Easy Neb #1 ea 03/07/20 04/15/24 History Compressor Nebulizer) sildenafil 100 mg tablet 100 mg PO DAILY PRN Erectile 03/07/20 04/15/24 History Dysfunction aspirin 81 mg tablet 81 mg PO DAILY 08/04/20 04/15/24 History omeprazole 40 mg capsule,delayed 40 mg PO DAILY 01/28/23 04/15/24 History release albuterol sulfate 2.5 mg/3 mL 2.5 mg (3 mL) inhalation Q4-6H PRN 03/18/23 04/15/24 Rx (0.083 %) solution for nebulization Shortness Of Breath Or Wheezing #1,080 mL montelukast 10 mg tablet 10 mg PO QAM #90 tabs 04/25/23 04/15/24 Rx (Singulair) methocarbamol 500 mg tablet 500 mg PO PRN PRN back spasms 08/30/23 04/15/24 History roflumilast 500 mcg tablet 500 mcg PO HS copd 08/30/23 04/15/24 History revefenacin 175 mcg/3 mL solution 175 mcg/3 mL Solution For 09/21/23 04/15/24 Sample for nebulization (Yupelri) Nebulization#3 Samples arformoterol 15 mcg/2 mL solution See Rx Instructions .Route 03/19/24 04/15/24 Rx for nebulization .COMPLEX #120 mL metoprolol tartrate 25 mg tablet 50 mg PO DAILY #60 tabs 03/24/24 04/15/24 Rx Vitamin C 1 tab-cap PO DAILY 03/30/24 04/15/24 History ferrous sulfate 1 tab-cap PO DAILY 03/30/24 04/15/24 History vitamin [id number] acid 1 tab-cap PO DAILY 03/30/24 04/15/24 History albuterol sulfate 90 mcg/actuation See Rx Instructions .Route 04/12/24 04/15/24 Rx aerosol inhaler .COMPLEX #3 ea baclofen 10 mg tablet 10 mg PO TID PRN Hiccups 04/15/24 04/15/24 History budesonide 0.25 mg/2 mL suspension 0.25 mg inhalation BID 04/15/24 04/15/24 History for nebulization levocetirizine 5 mg tablet 5 mg PO DAILY 04/15/24 04/15/24 History metoprolol tartrate 25 mg tablet 25 mg PO HS 04/15/24 04/15/24 History Allergies Allergy/AdvReac Type Severity Reaction Status Date / Time lisinopril Allergy Severe Swelling Verified 04/15/24 19:53 Penicillins Allergy Intermediate Hives / Verified 04/15/24 19:53 Red Face Sulfa (Sulfonamide Allergy Intermediate Hives / Verified 04/15/24 19:53 Antibiotics) Red Face Vital Signs Vital Signs - 24 hr 04/15/24 11:41 04/15/24 12:05 04/15/24 12:12 Temperature 99.0 F Pulse Rate 132 H 130 H Respiratory Rate 24 H Blood Pressure 98/64 L Pulse Oximetry 93 91 Oxygen Delivery Nasal Cannula Oxygen Flow Rate 4 04/15/24 12:45 04/15/24 13:31 Temperature Pulse Rate 127 H 129 H Respiratory Rate 27 H 30 H Blood Pressure 98/54 L 100/60 Pulse Oximetry 99 95 Oxygen Delivery Oxygen Flow Rate Exam Const: General: comfortable and no acute distress Other: , male, mildly ill-appearing HENMT: Face/Nose/Sinus: Normal nares present Mouth: Yes moist mucous membranes Other: NC in place Eyes: General: appearance normal, both eyes and all related structures Sclera: sclerae normal Pupils: Equal, round and reactive pupils present EOM: EOMs intact bilaterally Chest: Other: Port to right chest, accessed Resp: Other: Mild tachypnea without accessory muscle use. Crackles in the right lower lobe. No wheezing. Cardio: Rate: tachycardic (110-115) Rhythm: regular rhythm Other: Occasional ectopy, no murmur or rub. GI: Other: Abdomen rounded, soft, nontender. Normoactive bowel sounds in all quadrants. Skin: General skin exam: normal color and no rashes or lesions noted Wounds: no wounds Neuro: Speech: normal speech Motor exam (neuro): 5/5 motor strength present throughout Sensory Exam: normal sensation Other: A&O x4 Extrem: General: normal to inspection Psych: Mental Status: mental status grossly normal Affect: normal affect Other: Good insight and judgment, pleasant H&P: Results Labs Labs: Short CBC 04/15/24 Range/Units 12:13 WBC 4.6 (4.5-10.0) K/mm3 Hgb 7.0 L (14.0-18.0) g/dL Hct 22.1 L (42.0-52.0) % Plt Count 159 (150-375) k/mm3 BMP 04/15/24 12:13 Sodium 138 Potassium 4.1 Chloride 103 Carbon Dioxide 21 L BUN 20 Creatinine 1.80 H Glucose 133 H Calcium 9.0 Cardiac Enzymes 04/15/24 04/15/24 Range/Units 12:13 15:20 Troponin I < 0.012 < 0.012 (0.000-0.034) ng/mL Liver Function 04/15/24 Range/Units 12:13 Total Bilirubin 1.0 (0.2-1.3) mg/dL AST 12 L (17-59) U/L ALT 12 (6-50) U/L Alkaline Phosphatase 93 (38-126) U/L Albumin 3.8 (3.5-5.1) g/dL Assessment and Plan Assessment and plan (1) SIRS (systemic inflammatory response syndrome): Code(s): R65.10 - Systemic inflammatory response syndrome (SIRS) of non-infectious origin without acute organ dysfunction Status: Acute Assessment and Plan: - meets SIRS criteria: HR, RR - lactic acid: 2.1 -> 1.2 - lactic elevated, procalcitonin added - 30 mL/kg = 2700, given 1L bolus. Receiving fluids via antibiotics and blood transfusion. Tolerates well, will add maintenance fluids x1 L. Monitor I&Os. - suspected source: pneumonia - started on Levaquin and Vancomycin - blood cultures drawn on 04/15, follow-up - UA added - CXR: a couple new wedge-shaped airspace opacities at the right midlung zone which could represent pneumonia or pulmonary infarcts in the appropriate clinical setting - Chest CTA No pulmonary embolus detected Severe bullous emphysema, bilateral scarring Mildly diminished size of right upper lobe paramediastinal mass density Prominent increased infiltrate in the right upper lobe, small new focal consolidation in the left upper lobe Bibasilar atelectasis - monitor O2 levels, heart rate, and hemodynamic stability. Admission to IMU. (2) Pneumonia: Qualifiers: Laterality: bilateral Lung location: upper lobe of lung Pneumonia type: due to unspecified organism Qualified Code(s): J18.9 - Pneumonia, unspecified organism Code(s): J18.9 - Pneumonia, unspecified organism Status: Acute Assessment and Plan: - imaging showing bilateral upper lobe pneumonia - risk factors and complicating factors: lung cancer, COPD, immunocompromised - started on Vancomycin and Levaquin on 04/15 - MRSA PCR and sputum culture ordered - Viral PCR negative - requires 3L of supplemental O2 at baseline, currently requiring 4L - supportive care (3) Chest pain: Qualifiers: Chest pain type: unspecified Qualified Code(s): R07.9 - Chest pain, unspecified Code(s): R07.9 - Chest pain, unspecified Status: Acute Assessment and Plan: - EKG, initial: sinus tachycardia, rate 134, minimal Q-waves in inferior /lateral leads. When compared to EKG done on 03/20/24, heart rate has increased. - imaging showing pneumonia - Troponin: <0.012 x3 - suspect chest pain is secondary to pneumonia, radiation, and demand due to tachycardia - telemetry monitoring (4) COPD (chronic obstructive pulmonary disease): Qualifiers: COPD type: unspecified COPD Qualified Code(s): J44.9 - Chronic obstructive pulmonary disease, unspecified Code(s): J44.9 - Chronic obstructive pulmonary disease, unspecified Status: Chronic Assessment and Plan: - initiate scheduled nebs and steroids - continue home inhalers (5) Anemia: Qualifiers: Anemia type: unspecified type Qualified Code(s): D64.9 - Anemia, unspecified Code(s): D64.9 - Anemia, unspecified Status: Acute Assessment and Plan: - Hgb 7, previously 9.1 on 04/02/2024. Denying bleeding. - transfuse 1u of PRBC given prominent tachycardia despite fluid administration - transfuse if less than 7 - suspect anemia is multifactorial: oncology treatment, PRISCILLA/CKD, G6PD deficiency (6) Small cell lung cancer: Onset Date: 02/2024 Qualifiers: Laterality: right Lung location: upper lobe of lung Qualified Code(s): C34.11 - Malignant neoplasm of upper lobe, right bronchus or lung Code(s): C34.90 - Malignant neoplasm of unspecified part of unspecified bronchus or lung Status: Acute Assessment and Plan: - currently undergoing treatment with last radiation treatment on 04/13 - follows with Stephanie ISRAEL and Aidan ISRAEL - consult to oncology, awaiting recs (7) Chronic kidney disease: Qualifiers: Chronic kidney disease stage: stage 2 (mild) Qualified Code(s): N18.2 - Chronic kidney disease, stage 2 (mild) Code(s): N18.9 - Chronic kidney disease, unspecified Status: Acute Assessment and Plan: - PRISCILLA superimposed on CKD - creatinine 1.8 and GFR 45, previously 1.2 and GFR >60 on 03/28/2024 - IV fluids - trend renal function - if no improvement with fluids, consider further work up and consultation (8) HTN (hypertension): Qualifiers: Hypertension type: unspecified Qualified Code(s): I10 - Essential (primary) hypertension Code(s): I10 - Essential (primary) hypertension Status: Acute Assessment and Plan: - chronic, currently 100/60. Soft at arrival. - home medications: hold metoprolol and amlodipine - monitor (9) Sleep apnea: Qualifiers: Sleep apnea type: unspecified type Qualified Code(s): G47.30 - Sleep apnea, unspecified Code(s): G47.30 - Sleep apnea, unspecified Status: Acute Assessment and Plan: - does not tolerate CPAP Plan Diet: heart healthy GI Prophylaxis: not currently indicated DVT Prophylaxis: SCDs Lines: peripheral Code Status: DNR Quality VTE Prophylaxis VTE prophylaxis: mechanical ordered Hospitalist MIPS Advance Care Plan I have confirmed that the patient's Advanced Care Plan is present, code status is documented, or surrogate decision maker is listed in patient medical record.: Yes Medication Reconciliation I have utilized all available resources to obtain, update and review the patients current medications (includes all prescriptions, OTC, herbals, can nabis, and nutritional supplements).: Yes
[2024-04-15] MEDS: levoFLOXacin 750 MG/D5W 150 ML 750 MG/150 ML BAG 100 MG IVPB (16:58)
--- NOTE | 2024-04-15 17:16 | ECG_ITS ---
Test Date: 2024-04-15 18:01:40 Measurements Intervals [place] Rate: 122 P: 50 HI: 147 QRS: 36 QRSD: 90 T: 60 QT: 292 QTc: 417 Interpretive Statements SINUS TACHYCARDIA WITH FREQUENT VENTRICULAR PREMATURE COMPLEXES MINIMAL Q WAVES- INF/LAT LEADS ABNORMAL ECG Compared to ECG 04/15/2024 11:45:54 Ventricular premature complex(es) now present Electronically Signed On 04-15-2024 18:23:55 DRIP PUMPER by Cliff Courtney D.O.
[2024-04-15 17:33] LABS: MRSA (PCR) NOT DETECTED (NOT DETECTE)
[2024-04-15 18:24] LABS: Troponin I < 0.012 ng/mL (0.000-0.034)
[2024-04-15 18:30] LABS: Procalcitonin 0.9 ng/mL
[2024-04-15] MEDS: VANCOMYCIN 1,250 MG/NS 250 ML 1,250 MG/250 ML BAG 166.67 MG IVPB (18:45)
[2024-04-15] MEDS: ACETAMINOPHEN 325 MG TABLET 650 MG PO (18:55)
[2024-04-15] MEDS: BENZONATATE 100 MG CAPSULE PO (18:56)
[2024-04-15] MEDS: SODIUM CHLORIDE 0.9% IV 250 ML 30 ML IV CONT (19:20)
[2024-04-15 19:24] LABS: Add Urine Microscopic? YES; Appearance Urine Clear (Clear); Bacteria Urine None Seen /hpf; Bilirubin Urine Negative (Negative); Blood Urine Negative (Negative); Color Urine Yellow (Yellow); Glucose Urine UA Negative (Negative); Ketones Urine Negative (Negative); Leukocyte Esterase Ur Negative LEU/UL (Negative); Nitrate Urine Negative (Negative); Non Pathogenic Casts 0-2; Protein Urine 1+ mg/dL (Negative); RBC Urine 0-2 /hpf (0-2); Specific Grav Ur > 1.045 (1.001-1.035); Squamous Epithelial Cell Urine None Seen /hpf (Few); WBC Urine 0-5 /hpf (0-3); pH Urine 5.5 (5.0-9.0)
[2024-04-15] MEDS: TUBING, BLOOD PLUM PUMP TUBING 1 EACH XX (19:36)
[2024-04-15] MEDS: IPRATROPIUM 0.5 MG/ALBUTEROL SULFATE 2.5 MG AMPUL.NEB 3 ML INHALATION (20:39)
[2024-04-15] MEDS: VANCOMYCIN 1,000 MG/NS 250 ML 1,000 MG/250 ML BAG 250 MG IVPB (20:42)
[2024-04-15] MEDS: guaiFENesin 12 HR 600 MG TABCR PO (20:52)
--- NOTE | 2024-04-15 21:13 | ADMGEN ---
This patient, Lee Cotto Sr., was admitted to IMU Room 201-01. Patient/family oriented to hospital policies and general routines including ID bracelet, bed and alarms, visiting hours, pain management, procedures, bathroom and other care routines, personal items, smoking policy, room service/diet, and visiting hours. Information on how to activate the Rapid Response Team has been discussed. Patient/Family are encouraged to report perceived risks to care and to ask questions if they do not understand what they are told or what they should do.
[2024-04-15] MEDS: SODIUM CHLORIDE 0.9% IV 1,000 ML 75 ML IV CONT (23:18)
[2024-04-15] MEDS: ROFLUMILAST 500 MCG TABLET PO (23:20)
[2024-04-15] MEDS: DOXAZOSIN MESYLATE 4 MG TABLET 8 MG PO (23:21)
[2024-04-16] VITALS (26 sets, daily range): BP systolic 105–125; BP diastolic 52–70; PULSE 93–132; RESP 16–24; TEMP 36.5–37.2; O2SAT 93–100; BMI 30.2
[2024-04-16] MEDS: IPRATROPIUM 0.5 MG/ALBUTEROL SULFATE 2.5 MG AMPUL.NEB 3 ML INHALATION ×4 (01:07→20:29)
[2024-04-16 05:32] LABS: Basophils Percent Auto 0.5 % (0.2-1.2); Eosinophils Absolute Auto 0.1 K/mm3 (0-0.3); Eosinophils Percent Auto 0.9 % (0-4.4); Hemoglobin 7.3 g/dL (14.0-18.0); Immature Granulocyte Absolute 0.43 K/mm3 (0.00-0.031); Immature Granulocyte Percent A 7.4 % (0-0.5); Lymphocytes Absolute Auto 0.46 K/mm3 (0.9-3.2); Lymphocytes Percent Auto 7.9 % (18.3-44.2); Mean Corpuscular HGB Conc 31.7 g/dl (32-36); Mean Corpuscular Hemoglobin 26.7 pg (26-34); Mean Corpuscular Volume 84.2 fl (80-100); Mean Platelet Volume 9.3 fl (7.4-10.4); Monocytes Absolute Auto 1.4 K/mm3 (0.1-0.6); Monocytes Percent Auto 23.5 % (2.6-8.5); Neutrophils Absolute Auto 3.5 K/mm3 (1.3-6.7); Neutrophils Percent Auto 59.8 % (45.5-73.1); Platelet Count Result 129 k/mm3 (150-375); Red Blood Count 2.73 M/mm3 (4.6-6.20); Red Cell Distribution Width 19.7 % (11.5-14.5); White Blood Count 5.8 K/mm3 (4.5-10.0)
[2024-04-16 05:44] LABS: Alanine Aminotransferase 9 U/L (6-50); Albumin Level 3.1 g/dL (3.5-5.1); Alkaline Phosphatase 88 U/L (38-126); Anion Gap 10 mmol/L (4-12); Aspartate Amino Transferase 16 U/L (17-59); Bilirubin,Total 1.1 mg/dL (0.2-1.3); Blood Urea Nitrogen 18 mg/dL (9-20); Calcium 8.8 mg/dL (8.4-10.2); Carbon Dioxide 23 mmol/L (22-30); Chloride 105 mmol/L (98-107); Estimated CRCL calculation 49 ml/min; Estimated Glomerular Filt Rate > 60; Glucose 98 mg/dL (65-110); Potassium 3.8 mmol/L (3.4-5.0); Sodium 138 mmol/L (137-145)
[2024-04-16 06:24] LABS: Anisocytosis 1+; Dohle Bodies Present; Microcytosis 2+ (NORMAL); Platelet Estimate Decreased (Adequate)
[2024-04-16 06:25] LABS: Schistocytes None Seen
--- NOTE | 2024-04-16 06:44 | PM.IMPN ---
Progress Note: A&P Assessment and Plan (1) SIRS (systemic inflammatory response syndrome): Code(s): R65.10 - Systemic inflammatory response syndrome (SIRS) of non-infectious origin without acute organ dysfunction Status: Acute Assessment and Plan: - meets SIRS criteria: HR, RR, lactic acid - lactic acid: 2.1 -> 1.2 - lactic elevated, procalcitonin 0.9 - 30 mL/kg = 2700, given 1L bolus. Receiving fluids via antibiotics and blood transfusion. Tolerates well, will add maintenance fluids x1 L. Monitor I&Os. - suspected source: pneumonia - Antibiotic: Levaquin and Vancomycin started on 04/15 - blood cultures drawn on 04/15, pending - sputum culture collected on 04/15, pending - UA non concerning for infection - CXR: a couple new wedge-shaped airspace opacities at the right midlung zone which could represent pneumonia or pulmonary infarcts in the appropriate clinical setting - Chest CTA No pulmonary embolus detected Severe bullous emphysema, bilateral scarring Mildly diminished size of right upper lobe paramediastinal mass density Prominent increased infiltrate in the right upper lobe, small new focal consolidation in the left upper lobe Bibasilar atelectasis - monitor O2 levels, heart rate, and hemodynamic stability. (2) Pneumonia: Qualifiers: Laterality: bilateral Lung location: upper lobe of lung Pneumonia type: due to unspecified organism Qualified Code(s): J18.9 - Pneumonia, unspecified organism Code(s): J18.9 - Pneumonia, unspecified organism Status: Acute Assessment and Plan: - CXR: a couple new wedge-shaped airspace opacities at the right midlung zone which could represent pneumonia or pulmonary infarcts in the appropriate clinical setting - Chest CTA No pulmonary embolus detected Severe bullous emphysema, bilateral scarring Mildly diminished size of right upper lobe paramediastinal mass density Prominent increased infiltrate in the right upper lobe, small new focal consolidation in the left upper lobe Bibasilar atelectasis - Risk Factors: lung cancer, COPD, immunocompromised - started on Vancomycin and Levaquin on 04/15 - MRSA PCR negative - Viral PCR negative - sputum culture pending - requires 3L of supplemental O2 at baseline, currently requiring 4L. Oxygen via NC; wean as tolerated. Keep SpO2 greater than 88% - Monitor vital signs, I&Os, neuro status and patient is a fall risk - Follow WBC, serum electrolytes, temperature curves and cultures (3) Chest pain: Qualifiers: Chest pain type: unspecified Qualified Code(s): R07.9 - Chest pain, unspecified Code(s): R07.9 - Chest pain, unspecified Status: Acute Assessment and Plan: - EKG, initial: sinus tachycardia, rate 134, minimal Q-waves in inferior /lateral leads. When compared to EKG done on 03/20/24, heart rate has increased. - imaging showing pneumonia - Troponin: <0.012 x3 - suspect chest pain is secondary to pneumonia, radiation, and demand due to tachycardia - telemetry monitoring (4) COPD (chronic obstructive pulmonary disease): Qualifiers: COPD type: unspecified COPD Qualified Code(s): J44.9 - Chronic obstructive pulmonary disease, unspecified Code(s): J44.9 - Chronic obstructive pulmonary disease, unspecified Status: Chronic Assessment and Plan: - initiate scheduled nebs and steroids - continue home inhalers (5) Anemia: Qualifiers: Anemia type: unspecified type Qualified Code(s): D64.9 - Anemia, unspecified Code(s): D64.9 - Anemia, unspecified Status: Acute Assessment and Plan: - Hgb 7, previously 9.1 on 04/02/2024. Denying bleeding. - transfuse 1u of PRBC given prominent tachycardia despite fluid administration - transfuse if less than 7 - suspect anemia is multifactorial: oncology treatment, PRISCILLA/CKD, G6PD deficiency (6) Small cell lung cancer: Onset Date: 02/2024 Qualifiers: Laterality: right Lung location: upper lobe of lung Qualified Code(s): C34.11 - Malignant neoplasm of upper lobe, right bronchus or lung Code(s): C34.90 - Malignant neoplasm of unspecified part of unspecified bronchus or lung Status: Acute Assessment and Plan: - currently undergoing treatment with last radiation treatment on 04/13 - follows with Stephanie [facility]RA[facility] and Aidan [facility] - consult to oncology, awaiting recs (7) Chronic kidney disease: Qualifiers: Chronic kidney disease stage: stage 2 (mild) Qualified Code(s): N18.2 - Chronic kidney disease, stage 2 (mild) Code(s): N18.9 - Chronic kidney disease, unspecified Status: Acute Assessment and Plan: - PRISCILLA superimposed on CKD - creatinine 1.8 and GFR 45, previously 1.2 and GFR >60 on 03/28/2024 - IV fluids - trend renal function - if no improvement with fluids, consider further work up and consultation (8) HTN (hypertension): Qualifiers: Hypertension type: unspecified Qualified Code(s): I10 - Essential (primary) hypertension Code(s): I10 - Essential (primary) hypertension Status: Acute Assessment and Plan: - chronic, currently 100/60. Soft at arrival. - home medications: hold metoprolol and amlodipine - monitor (9) Sleep apnea: Qualifiers: Sleep apnea type: unspecified type Qualified Code(s): G47.30 - Sleep apnea, unspecified Code(s): G47.30 - Sleep apnea, unspecified Status: Acute Assessment and Plan: - does not tolerate CPAP Plan Diet: heart healthy GI Prophylaxis: not currently indicated DVT Prophylaxis: SCDs Lines: peripheral Code Status: DNR Subjective Date/time seen: 04/16/24 06:44 Interval history: 73 year old male with past medical history of Asbestos exposure, BPH, CKD, COPD, hep C, PE, HTN, chronic respiratory failure on 3L home oxygen at baseline, untreated obstructive sleep apnea, , and small cell lung cancer currently in treatment presents to the hospital with chest pain and shortness of breath. Last radiation treatment on Tuesday, 04/13. during this treatment was noted that he had an elevated heart rate, fever, and his oxygen level was mildly low. He reports post treatment he developed the chest pain, SOB, and tachycardia. Review of Systems Review of Systems: All systems reviewed & are unremarkable except as noted in HPI and below Exam Narrative: AF General: well nourished, well-developed male in no acute respiratory distress who is nontoxic appearing, lying semi recumbent in bed. HEENT: Normocephalic. Atraumatic. Pupils equal round reactive to light. Extraocular movement intact. Sclera clear and anicteric. Nares patent. No oral lesions. Moist mucous membranes. Tongue is midline. Palate christiano symmetrically. No facial asymmetry. Neck: Neck was supple. No dominant adenopathy, thyromegaly or masses. 2+ carotid upstrokes without bruits. Chest: Lungs are clear to auscultation bilaterlly. No wheezes or crackles. CV: Heart was regular rate and rhythm. S1/S2. No murmurs, gallops, or rubs. Abd: Abdomen was soft. Nontender. Nondistended. Postive bowel sounds. No organomegaly or masses. Ext: No clubbing, cyanosis, or edema. 2+ DP pulses bilaterally. Neuro: Patient is alert and oriented x4. Strenth is 5/5 in both upper and lower extremities. Cranial nerves 2-12 are intact. Speech is clear. Psych: Normal nood and affect. Patient is pleasant and cooperative. Skin: Warm and dry. No rashes noted. Objective Data Vital Signs Vital Signs: Vital Signs - 24 hr 04/15/24 11:41 04/15/24 12:05 04/15/24 12:12 Temperature 99.0 F Pulse Rate 132 H 130 H Respiratory Rate 24 H Blood Pressure 98/64 L Pulse Oximetry 93 91 Oxygen Delivery Nasal Cannula Oxygen Flow Rate 4 04/15/24 12:45 04/15/24 13:31 04/15/24 16:56 Temperature 99.7 F H Pulse Rate 127 H 129 H 127 H Respiratory Rate 27 H 30 H 29 H Blood Pressure 98/54 L 100/60 117/67 Pulse Oximetry 99 95 90 Oxygen Delivery Oxygen Flow Rate 04/15/24 17:46 04/15/24 18:48 04/15/24 19:24 Temperature 99.2 F 99.5 F Pulse Rate 124 H 127 H 121 H Respiratory Rate 26 H 28 H 29 H Blood Pressure 117/67 122/73 126/74 Pulse Oximetry 95 95 94 Oxygen Delivery Oxygen Flow Rate 04/15/24 19:37 04/15/24 19:41 04/15/24 20:08 Temperature 99.5 F 98.9 F 98.8 F Pulse Rate 120 H 120 H 115 H Respiratory Rate 30 H 30 H 17 Blood Pressure 101/64 101/64 120/69 Pulse Oximetry 97 96 95 Oxygen Delivery Oxygen Flow Rate 04/15/24 20:18 04/15/24 20:50 04/15/24 20:50 Temperature 98.2 F Pulse Rate 125 H 120 H Respiratory Rate 24 H 20 Blood Pressure 127/49 L Pulse Oximetry 98 100 Oxygen Delivery Nasal Cannula Oxygen Flow Rate 4 04/15/24 20:51 04/15/24 20:41 04/15/24 22:00 Temperature 98.3 F Pulse Rate 115 H 115 H 112 H Respiratory Rate 20 20 Blood Pressure 105/50 L Pulse Oximetry 97 Oxygen Delivery Oxygen Flow Rate 04/15/24 21:40 04/15/24 23:53 04/15/24 23:53 Temperature 98.1 F Pulse Rate 109 H 112 H Respiratory Rate 18 18 Blood Pressure 110/54 L 110/54 L Pulse Oximetry 98 98 Oxygen Delivery Nasal Cannula Oxygen Flow Rate 4 04/16/24 00:00 04/16/24 00:00 04/16/24 01:07 Temperature 98.3 F Pulse Rate 107 H 112 H 102 H Respiratory Rate 16 20 Blood Pressure 115/69 Pulse Oximetry 94 Oxygen Delivery Oxygen Flow Rate 04/16/24 01:16 04/16/24 02:00 04/16/24 03:59 Temperature 98.3 F Pulse Rate 108 H 113 H 117 H Respiratory Rate 20 20 Blood Pressure 111/63 Pulse Oximetry 94 Oxygen Delivery Oxygen Flow Rate 04/16/24 04:00 04/16/24 04:00 04/16/24 04:00 Temperature Pulse Rate 117 H 122 H Respiratory Rate 20 Blood Pressure 111/63 Pulse Oximetry 94 Oxygen Delivery Nasal Cannula Oxygen Flow Rate 4 04/16/24 06:00 Temperature Pulse Rate 126 H Respiratory Rate Blood Pressure Pulse Oximetry Oxygen Delivery Oxygen Flow Rate Intake/Output Intake/Output: Intake & Output 04/14/24 04/15/24 04/15/24 04/16/24 00:59 00:59 23:59 23:59 Intake Total 725 Output Total 1400 Balance -675 Meds/Results Medications: Active Medications Generic Name Dose Route Start Last Admin Trade Name Freq PRN Reason Stop Dose Admin Acetaminophen 650 mg 04/15/24 16:47 04/15/24 18:55 Acetaminophen 325 Mg Tablet PO 650 mg Q6H PRN Administration Mild Pain (1-3) or Fever Albuterol 1 - 2 puff 04/15/24 21:45 Albuterol Sulfate (*Sp) Aerosol 1 Puff INHALATION Q4H PRN Shortness Of Breath Albuterol/Ipratropium 3 ml 04/15/24 20:00 04/16/24 01:07 Ipratropium 0.5 Mg/Albuterol Sulfate 2.5 Mg Ampul.Neb 3 Ml INHALATION 3 ml Q6HRT [facility] Administration Ascorbic Acid 500 mg 04/16/24 09:00 Ascorbic Acid 500 Mg Tablet PO QAM [facility] Aspirin 81 mg 04/16/24 09:00 Aspirin 81 Mg Enteric Tablet PO QAM [facility] Baclofen 10 mg 04/15/24 21:41 Baclofen 10 Mg Tablet PO TID PRN Hiccups Benzocaine 1 lozenge 04/15/24 16:46 Benzocaine/Menthol (*Bkc) 18 Ea Lozenge PO PRN PRN Sore Throat Benzonatate 100 mg 04/15/24 16:46 04/15/24 18:56 Benzonatate 100 Mg Capsule PO 100 mg TID PRN Administration Cough Budesonide 0.5 mg 04/16/24 08:00 Budesonide Respule Neb 0.5 Mg/2 Ml Amp INHALATION Q12HRT [facility] Cyanocobalamin 1,000 mcg 04/16/24 09:00 Cyanocobalamin 1,000 Mcg Tablet PO QAM [facility] Doxazosin Mesylate 8 mg 04/15/24 21:55 04/15/24 23:21 Doxazosin Mesylate 4 Mg Tablet PO 8 mg HS [facility] Administration Ergocalciferol 50,000 units 04/19/24 09:00 Ergocalciferol 50,000 Units Capsule PO Th@0900 [facility] Ferrous Sulfate 1 mg 04/16/24 09:00 Ferrous Sulfate [address] BY MOUTH DAILY [facility] Fluticasone Propionate 1 spray 04/15/24 21:41 Fluticasone Propionate 0.05% Na Spr 16 Gm Btl (*Bkc) NASAL DAILY PRN Congestion Folic Acid 1 mg 04/16/24 09:00 Folic Acid 1 Mg Tablet PO QAM [facility] Guaifenesin 600 mg 04/15/24 21:00 04/15/24 20:52 Guaifenesin 12 Hr 600 Mg Tabcr PO 600 mg Q12HR [facility] Administration Levofloxacin/Dextrose 750 mg in 150 mls @ 100 mls/hr 04/17/24 17:00 Levaquin 750 Mg/D5w 150 Ml IVPB Q48H [facility] Vancomycin HCl 1,500 mg in 500 mls @ 250 mls/hr 04/17/24 08:00 Vancomycin 1,500 Mg/Ns 500 Ml IVPB Q36H [facility] Sodium Chloride 1,000 mls @ 75 mls/hr 04/15/24 21:15 04/15/24 23:18 Normal Saline Iv IV CONT 04/16/24 10:34 75 mls/hr .[id number] [facility] Administration Loratadine 10 mg 04/16/24 09:00 Loratadine 10 Mg Tablet PO QAM [facility] Methocarbamol 500 mg 04/15/24 21:41 Methocarbamol 500 Mg Tablet PO TID PRN back spasms Montelukast Sodium 10 mg 04/16/24 09:00 Montelukast Sodium 10 Mg Tablet PO QAM [facility] Pantoprazole Sodium 40 mg 04/16/24 09:00 Pantoprazole 40 Mg Tablet PO BID [facility] Prednisone 40 mg 04/16/24 08:00 Prednisone 20 Mg Tablet PO 04/21/24 07:59 DAILY@0800 [facility] Roflumilast 500 mcg 04/15/24 21:55 04/15/24 23:20 Roflumilast 500 Mcg Tablet PO 500 mcg HS [facility] Administration Radiology Results: ITS Impressions Chest CTA 04/15/24 14:27 IMPRESSION: No pulmonary embolus detected Severe bullous emphysema, bilateral scarring Mildly diminished size of right upper lobe paramediastinal mass density Prominent increased infiltrate in the right upper lobe, small new focal consolidation in the left upper lobe Bibasilar atelectasis Chest X-Ray 04/15/24 18:42 IMPRESSION: Right Port-A-Cath catheter tip overlies superior vena cava Bilateral infiltrates and scarring Severe bullous emphysema Labs Labs: Laboratory Results - last 24 hr 04/15/24 04/15/24 04/15/24 12:13 12:13 13:22 WBC 4.6 RBC 2.64 L Hgb 7.0 L Hct 22.1 L MCV 83.7 MCH 26.5 MCHC 31.7 L RDW 20.1 H Plt Count 159 MPV 10.5 H Immature Gran % (Auto) 5.1 H Neut % (Auto) 61.7 Lymph % (Auto) 4.6 L [place] % (Auto) 27.7 H Eos % (Auto) 0.2 Baso % (Auto) 0.7 Lymph # (Auto) 0.21 L [place] # (Auto) 1.3 H Eos # (Auto) 0.0 Baso # (Auto) 0.0 Abs Immat Gran (auto) 0.23 H Absolute Neuts (auto) 2.8 Absolute Nucleated RBC 0.000 Nucleated RBC % 0.0 Dohle Bodies Present Platelet Estimate Adequate Polychromasia 1+ Anisocytosis 1+ Microcytosis Schistocytes None seen PT 16.2 H INR 1.3 APTT 33.3 D-Dimer 2.20 H Sodium 138 Potassium 4.1 Chloride 103 Carbon Dioxide 21 L Anion Gap 14 H BUN 20 Creatinine 1.80 H Estim Creat Clear Calc 36 Estimated GFR 45 L Glucose 133 H Lactic Acid 2.1 H Calcium 9.0 Magnesium 1.8 Cancelled Total Bilirubin 1.0 AST 12 L ALT 12 Alkaline Phosphatase 93 Troponin I < 0.012 Total Protein 7.0 Albumin 3.8 Lipase 22 L Procalcitonin Urine Color Urine Appearance Urine pH Ur Specific [place] Urine Protein Urine Glucose (UA) Urine Ketones Ur Blood (Man) Urine Nitrate Urine Bilirubin Urine Urobilinogen Leukocyte Esterase Rfl Urine RBC Urine WBC Ur Squamous Epith Cells Urine Bacteria Urine Casts Nasal MRSA (PCR) Influenza A (RT-PCR) Negative Influenza B (RT-PCR) Negative RSV (RT-PCR) Negative SARS-CoV-2 RNA (RT-PCR) Negative Blood Type Antibody Screen Crossmatch 04/15/24 04/15/24 04/15/24 15:20 15:35 16:18 WBC RBC Hgb Hct MCV MCH MCHC RDW Plt Count MPV Immature Gran % (Auto) Neut % (Auto) Lymph % (Auto) [place] % (Auto) Eos % (Auto) Baso % (Auto) Lymph # (Auto) [place] # (Auto) Eos # (Auto) Baso # (Auto) Abs Immat Gran (auto) Absolute Neuts (auto) Absolute Nucleated RBC Nucleated RBC % Dohle Bodies Platelet Estimate Polychromasia Anisocytosis Microcytosis Schistocytes PT INR APTT D-Dimer Sodium Potassium Chloride Carbon Dioxide Anion Gap BUN Creatinine Estim Creat Clear Calc Estimated GFR Glucose Lactic Acid 1.2 Calcium Magnesium Total Bilirubin AST ALT Alkaline Phosphatase Troponin I < 0.012 Total Protein Albumin Lipase Procalcitonin Urine Color Urine Appearance Urine pH Ur Specific [place] Urine Protein Urine Glucose (UA) Urine Ketones Ur Blood (Man) Urine Nitrate Urine Bilirubin Urine Urobilinogen Leukocyte Esterase Rfl Urine RBC Urine WBC Ur Squamous Epith Cells Urine Bacteria Urine Casts Nasal MRSA (PCR) Not detected Influenza A (RT-PCR) Influenza B (RT-PCR) RSV (RT-PCR) SARS-CoV-2 RNA (RT-PCR) Blood Type Antibody Screen Crossmatch 04/15/24 04/15/24 04/16/24 17:44 19:10 05:00 WBC 5.8 RBC 2.73 L Hgb 7.3 L Hct 23.0 L MCV 84.2 MCH 26.7 MCHC 31.7 L RDW 19.7 H Plt Count 129 L MPV 9.3 Immature Gran % (Auto) 7.4 H Neut % (Auto) 59.8 Lymph % (Auto) 7.9 L [place] % (Auto) 23.5 H Eos % (Auto) 0.9 Baso % (Auto) 0.5 Lymph # (Auto) 0.46 L [place] # (Auto) 1.4 H Eos # (Auto) 0.1 Baso # (Auto) 0.0 Abs Immat Gran (auto) 0.43 H Absolute Neuts (auto) 3.5 Absolute Nucleated RBC 0.000 Nucleated RBC % 0.0 Dohle Bodies Present Platelet Estimate Decreased Polychromasia Anisocytosis 1+ Microcytosis 2+ Schistocytes None seen PT INR APTT D-Dimer Sodium 138 Potassium 3.8 Chloride 105 Carbon Dioxide 23 Anion Gap 10 BUN 18 Creatinine 1.30 Estim Creat Clear Calc 49 Estimated GFR > 60 Glucose 98 Lactic Acid Calcium 8.8 Magnesium Total Bilirubin 1.1 AST 16 L ALT 9 Alkaline Phosphatase 88 Troponin I < 0.012 Total Protein 7.0 Albumin 3.1 L Lipase Procalcitonin 0.9 Urine Color Yellow Urine Appearance Clear Urine pH 5.5 Ur Specific [place] > 1.045 H Urine Protein 1+ H Urine Glucose (UA) Negative Urine Ketones Negative Ur Blood (Man) Negative Urine Nitrate Negative Urine Bilirubin Negative Urine Urobilinogen 1.0 Leukocyte Esterase Rfl Negative Urine RBC 0-2 Urine WBC 0-5 Ur Squamous Epith Cells None seen Urine Bacteria None seen Urine Casts 0-2 Nasal MRSA (PCR) Influenza A (RT-PCR) Influenza B (RT-PCR) RSV (RT-PCR) SARS-CoV-2 RNA (RT-PCR) Blood Type A Positive Antibody Screen Negative Crossmatch See Detail Quality VTE Prophylaxis VTE prophylaxis: mechanical ordered
[2024-04-16] MEDS: BUDESONIDE RESPULE NEB 0.5 MG/2 ML AMP INHALATION ×2 (07:32→20:28)
--- NOTE | 2024-04-16 09:27 | PM.IMPN ---
Progress Note: A&P Assessment and Plan (1) SIRS (systemic inflammatory response syndrome): Code(s): R65.10 - Systemic inflammatory response syndrome (SIRS) of non-infectious origin without acute organ dysfunction Status: Acute (2) Pneumonia: Qualifiers: Laterality: bilateral Lung location: upper lobe of lung Pneumonia type: due to unspecified organism Qualified Code(s): J18.9 - Pneumonia, unspecified organism Code(s): J18.9 - Pneumonia, unspecified organism Status: Acute (3) Chest pain: Qualifiers: Chest pain type: unspecified Qualified Code(s): R07.9 - Chest pain, unspecified Code(s): R07.9 - Chest pain, unspecified Status: Acute (4) COPD (chronic obstructive pulmonary disease): Qualifiers: COPD type: unspecified COPD Qualified Code(s): J44.9 - Chronic obstructive pulmonary disease, unspecified Code(s): J44.9 - Chronic obstructive pulmonary disease, unspecified Status: Chronic (5) Anemia: Qualifiers: Anemia type: unspecified type Qualified Code(s): D64.9 - Anemia, unspecified Code(s): D64.9 - Anemia, unspecified Status: Acute (6) Small cell lung cancer: Onset Date: 02/2024 Qualifiers: Laterality: right Lung location: upper lobe of lung Qualified Code(s): C34.11 - Malignant neoplasm of upper lobe, right bronchus or lung Code(s): C34.90 - Malignant neoplasm of unspecified part of unspecified bronchus or lung Status: Acute (7) Chronic kidney disease: Qualifiers: Chronic kidney disease stage: stage 2 (mild) Qualified Code(s): N18.2 - Chronic kidney disease, stage 2 (mild) Code(s): N18.9 - Chronic kidney disease, unspecified Status: Acute (8) HTN (hypertension): Qualifiers: Hypertension type: unspecified Qualified Code(s): I10 - Essential (primary) hypertension Code(s): I10 - Essential (primary) hypertension Status: Acute (9) Sleep apnea: Qualifiers: Sleep apnea type: unspecified type Qualified Code(s): G47.30 - Sleep apnea, unspecified Code(s): G47.30 - Sleep apnea, unspecified Status: Acute Plan 73 y/o M presents here with chest pain and shortness of breath with PMH of Asbestos exposure, BPH, CKD, COPD, hep C, PE, HTN, sleep apnea, and small cell lung cancer currently in treatment. The patient presents here from home for further evaluation of shortness of breath, chest pain, and rapid heart rate. Patient has history of small cell lung cancer for which he is undergoing treatment currently. Last radiation treatment on Tuesday, 04/13. during this treatment was noted that he had an elevated heart rate, fever, and his oxygen level was mildly low. He reports post treatment he developed the chest pain, SOB, and tachycardia.. Chest pain described as right sided, stabbing, radiating into his upper back and right shoulder, intermittent, aggravated by cough, and alleviated by resting. Chest pain worse is not worse with palpation, pain better with splinting with cough. Per Radiation/Oncology note on same day imaging showed possible right upper lobe infiltrate. Plan for trial of supportive care for a suspected upper respiratory infection including a decongestant and cough suppressant. If no improvement with supportive care, Sepsis - meets SIRS criteria: HR, RR - lactic acid: 2.1 -> 1.2 - lactic elevated, procalcitonin added - 30 mL/kg = 2700, given 1L bolus. Receiving fluids via antibiotics and blood transfusion. Tolerates well, will add maintenance fluids x1 L. Monitor I&Os. - suspected source: pneumonia - started on Levaquin and Vancomycin - blood cultures drawn on 04/15, follow-up - UA added - CXR: a couple new wedge-shaped airspace opacities at the right midlung zone which could represent pneumonia or pulmonary infarcts in the appropriate clinical setting - Chest CTA No pulmonary embolus detected Severe bullous emphysema, bilateral scarring Mildly diminished size of right upper lobe paramediastinal mass density Prominent increased infiltrate in the right upper lobe, small new focal consolidation in the left upper lobe Bibasilar atelectasis monitor O2 levels, heart rate, and hemodynamic stability. Admission to IMU. Multifocal pneumonia Pneumonia: Qualifiers: Laterality: bilateral Lung location: upper lobe of lung Pneumonia type: due to unspecified organism Qualified Code(s): J18.9 - Pneumonia, unspecified organism Code(s): J18.9 - Pneumonia, unspecified organism Status: Acute Assessment and Plan: - imaging showing bilateral upper lobe pneumonia - risk factors and complicating factors: lung cancer, COPD, immunocompromised - started on Vancomycin and Levaquin on 04/15 - MRSA PCR and sputum culture ordered - Viral PCR negative Patient has pneumonia possible superimposed pneumonitis due to radiation therapy consult Dr. Mckay for evaluation and treatent Chest pain: Qualifiers: Chest pain type: unspecified Qualified Code(s): R07.9 - Chest pain, unspecified Code(s): R07.9 - Chest pain, unspecified Status: Acute Assessment and Plan: - EKG, initial: sinus tachycardia, rate 134, minimal Q-waves in inferior /lateral leads. When compared to EKG done on 03/20/24, heart rate has increased. - imaging showing pneumonia - Troponin: <0.012 x3 Possible pleural chest pain, the pain is related with cough and deep breath - suspect chest pain is secondary to pneumonia, radiation, and demand due to tachycardia - telemetry monitoring CHF? Elevated BNP 340, baseline BNP 33 AUGUST 29, 2023 Order echocardiogram COPD (chronic obstructive pulmonary disease): Qualifiers: COPD type: unspecified COPD Qualified Code(s): J44.9 - Chronic obstructive pulmonary disease, unspecified Code(s): J44.9 - Chronic obstructive pulmonary disease, unspecified Status: Chronic Assessment and Plan: - initiate scheduled nebs and steroids - continue home inhalers Anemia: Qualifiers: Anemia type: unspecified type Qualified Code(s): D64.9 - Anemia, unspecified Code(s): D64.9 - Anemia, unspecified Status: Acute Assessment and Plan: - Hgb 7, previously 9.1 on 04/02/2024. Denying bleeding. - transfuse 1u of PRBC given prominent tachycardia despite fluid administration - transfuse if less than 7 - suspect anemia is multifactorial: oncology treatment, Patient is on chemotherapy radiation therapy Follow hemoglobin, transfuse p.r.n. Consult heme oncologist for evaluation treatment PRISCILLA/CKD, Elevated BUN creatinine above baseline Creatinine 1.8 on arrival, baseline creatinine 1.2 March 28, 2024 Possible due to poor intake Follow-up urinalysis Start gentle normal saline IV Small cell lung cancer: Onset Date: 02/2024 Qualifiers: Laterality: right Lung location: upper lobe of lung Qualified Code(s): C34.11 - Malignant neoplasm of upper lobe, right bronchus or lung Code(s): C34.90 - Malignant neoplasm of unspecified part of unspecified bronchus or lung Status: Acute Assessment and Plan: Lung cancer Patient is on chemotherapy and radiation therapy Last radiation therapy was April 13 consult chemo oncologist for evaluation treatment Common bile duct obstruction Bile duct drainage was placed in [facility] in January 2023 No obvious obstruction Patient will follow with GI in [facility] HTN (hypertension): Qualifiers: Hypertension type: unspecified Qualified Code(s): I10 - Essential (primary) hypertension Code(s): I10 - Essential (primary) hypertension Status: Acute Assessment and Plan: - chronic, currently 100/60. Soft at arrival. - home medications: hold metoprolol and amlodipine - monitor Sleep apnea: Qualifiers: Sleep apnea type: unspecified type Qualified Code(s): G47.30 - Sleep apnea, unspecified Code(s): G47.30 - Sleep apnea, unspecified Status: Acute Assessment and Plan: - does not tolerate CPAP Plan Diet: heart healthy GI Prophylaxis: not currently indicated DVT Prophylaxis: SCDs Lines: peripheral Code Status: DNR Subjective Date/time seen: 04/16/24 09:27 Interval history: I saw exam patient today, patient still has chest pain bilaterally, worse with deep breath and cough. Patient has shortness breath with mild exertion. Patient denies nausea vomiting diarrhea. Labs reviewed, blood pressure stable on the lower side patient has a tachycardia tachypnea Exam Narrative: GENERAL: Ill-appearing in no acute distress. Well-nourished. - EYES: EOMI. Anicteric. - HENT: Moist mucous membranes. - LUNGS: Coarse breath sound bilaterally bilaterally, no wheezing, rhonchi, or rales. Tachypnea - CARDIOVASCULAR: Regular rate and rhythm. No murmur. No JVD. Tachycardia - ABDOMEN: Soft, non-tender and non-distended. No palpable masses. Back-drainage tube in-situ in the right upper quadrant - EXTREMITIES: No edema. Peripheral pulses 2+. Non-tender. - NEUROLOGIC: No focal neurological deficits. CN II-XII grossly intact. - PSYCHIATRIC: Awake, Alert and oriented x 3. Appropriate mood and affect. - SKIN: No rashes or lesions. Warm. - LYMPH: No cervical lymphadenopathy. Objective Data Vital Signs Vital Signs: Vital Signs - 24 hr 04/15/24 11:41 04/15/24 12:05 04/15/24 12:12 Temperature 99.0 F Pulse Rate 132 H 130 H Respiratory Rate 24 H Blood Pressure 98/64 L Pulse Oximetry 93 91 Oxygen Delivery Nasal Cannula Oxygen Flow Rate 4 Fraction of Inspired Oxygen 04/15/24 12:45 04/15/24 13:31 04/15/24 16:56 Temperature 99.7 F H Pulse Rate 127 H 129 H 127 H Respiratory Rate 27 H 30 H 29 H Blood Pressure 98/54 L 100/60 117/67 Pulse Oximetry 99 95 90 Oxygen Delivery Oxygen Flow Rate Fraction of Inspired Oxygen 04/15/24 17:46 04/15/24 18:48 04/15/24 19:24 Temperature 99.2 F 99.5 F Pulse Rate 124 H 127 H 121 H Respiratory Rate 26 H 28 H 29 H Blood Pressure 117/67 122/73 126/74 Pulse Oximetry 95 95 94 Oxygen Delivery Oxygen Flow Rate Fraction of Inspired Oxygen 04/15/24 19:37 04/15/24 19:41 04/15/24 20:08 Temperature 99.5 F 98.9 F 98.8 F Pulse Rate 120 H 120 H 115 H Respiratory Rate 30 H 30 H 17 Blood Pressure 101/64 101/64 120/69 Pulse Oximetry 97 96 95 Oxygen Delivery Oxygen Flow Rate Fraction of Inspired Oxygen 04/15/24 20:18 04/15/24 20:50 04/15/24 20:50 Temperature 98.2 F Pulse Rate 125 H 120 H Respiratory Rate 24 H 20 Blood Pressure 127/49 L Pulse Oximetry 98 100 Oxygen Delivery Nasal Cannula Oxygen Flow Rate 4 Fraction of Inspired Oxygen 04/15/24 20:51 04/15/24 20:41 04/15/24 22:00 Temperature 98.3 F Pulse Rate 115 H 115 H 112 H Respiratory Rate 20 20 Blood Pressure 105/50 L Pulse Oximetry 97 Oxygen Delivery Oxygen Flow Rate Fraction of Inspired Oxygen 04/15/24 21:40 04/15/24 23:53 04/15/24 23:53 Temperature 98.1 F Pulse Rate 109 H 112 H Respiratory Rate 18 18 Blood Pressure 110/54 L 110/54 L Pulse Oximetry 98 98 Oxygen Delivery Nasal Cannula Oxygen Flow Rate 4 Fraction of Inspired Oxygen 04/16/24 00:00 04/16/24 00:00 04/16/24 01:07 Temperature 98.3 F Pulse Rate 107 H 112 H 102 H Respiratory Rate 16 20 Blood Pressure 115/69 Pulse Oximetry 94 Oxygen Delivery Oxygen Flow Rate Fraction of Inspired Oxygen 04/16/24 01:16 04/16/24 02:00 04/16/24 03:59 Temperature 98.3 F Pulse Rate 108 H 113 H 117 H Respiratory Rate 20 20 Blood Pressure 111/63 Pulse Oximetry 94 Oxygen Delivery Oxygen Flow Rate Fraction of Inspired Oxygen 04/16/24 04:00 04/16/24 04:00 04/16/24 04:00 Temperature Pulse Rate 117 H 122 H Respiratory Rate 20 Blood Pressure 111/63 Pulse Oximetry 94 Oxygen Delivery Nasal Cannula Oxygen Flow Rate 4 Fraction of Inspired Oxygen 04/16/24 06:00 04/16/24 07:32 04/16/24 07:32 Temperature Pulse Rate 126 H 122 H Respiratory Rate 24 H Blood Pressure Pulse Oximetry 100 Oxygen Delivery Nasal Cannula Oxygen Flow Rate 4 Fraction of Inspired Oxygen 36 04/16/24 07:42 04/16/24 08:00 Temperature 98.9 F Pulse Rate 120 H 95 Respiratory Rate 24 H 24 H Blood Pressure 105/65 Pulse Oximetry 100 Oxygen Delivery Oxygen Flow Rate Fraction of Inspired Oxygen Intake/Output Intake/Output: Intake & Output 04/14/24 04/15/24 04/15/24 04/16/24 00:59 00:59 23:59 23:59 Intake Total 725 Output Total 1400 Balance -675 Meds/Results Medications: Active Medications Generic Name Dose Route Start Last Admin Trade Name Freq PRN Reason Stop Dose Admin Acetaminophen 650 mg 04/15/24 16:47 04/15/24 18:55 Acetaminophen 325 Mg Tablet PO 650 mg Q6H PRN Administration Mild Pain (1-3) or Fever Albuterol 1 - 2 puff 04/15/24 21:45 Albuterol Sulfate (*Sp) Aerosol 1 Puff INHALATION Q4H PRN Shortness Of Breath Albuterol/Ipratropium 3 ml 04/15/24 20:00 04/16/24 07:32 Ipratropium 0.5 Mg/Albuterol Sulfate 2.5 Mg Ampul.Neb 3 Ml INHALATION 3 ml Q6HRT [facility] Administration Ascorbic Acid 500 mg 04/16/24 09:00 Ascorbic Acid 500 Mg Tablet PO QAM [facility] Aspirin 81 mg 04/16/24 09:00 Aspirin 81 Mg Enteric Tablet PO QAM [facility] Baclofen 10 mg 04/15/24 21:41 Baclofen 10 Mg Tablet PO TID PRN Hiccups Benzocaine 1 lozenge 04/15/24 16:46 Benzocaine/Menthol (*Bkc) 18 Ea Lozenge PO PRN PRN Sore Throat Benzonatate 100 mg 04/15/24 16:46 04/15/24 18:56 Benzonatate 100 Mg Capsule PO 100 mg TID PRN Administration Cough Budesonide 0.5 mg 04/16/24 08:00 04/16/24 07:32 Budesonide Respule Neb 0.5 Mg/2 Ml Amp INHALATION 0.5 mg Q12HRT [facility] Administration Cyanocobalamin 1,000 mcg 04/16/24 09:00 Cyanocobalamin 1,000 Mcg Tablet PO QAM [facility] Doxazosin Mesylate 8 mg 04/15/24 21:55 04/15/24 23:21 Doxazosin Mesylate 4 Mg Tablet PO 8 mg HS [facility] Administration Ergocalciferol 50,000 units 04/19/24 09:00 Ergocalciferol 50,000 Units Capsule PO Th@0900 [facility] Ferrous Sulfate 1 mg 04/16/24 09:00 Ferrous Sulfate [address] BY MOUTH DAILY [facility] Fluticasone Propionate 1 spray 04/15/24 21:41 Fluticasone Propionate 0.05% Na Spr 16 Gm Btl (*Bkc) NASAL DAILY PRN Congestion Folic Acid 1 mg 04/16/24 09:00 Folic Acid 1 Mg Tablet PO QAM [facility] Guaifenesin 600 mg 04/15/24 21:00 04/15/24 20:52 Guaifenesin 12 Hr 600 Mg Tabcr PO 600 mg Q12HR [facility] Administration Heparin Sodium (Porcine) 500 units 04/16/24 06:55 Heparin Sodium Lock Flush 500 Units/5 Ml Syringe IV PUSH PRN PRN see comments below Levofloxacin/Dextrose 750 mg in 150 mls @ 100 mls/hr 04/17/24 17:00 Levaquin 750 Mg/D5w 150 Ml IVPB Q48H [facility] Sodium Chloride 1,000 mls @ 75 mls/hr 04/15/24 21:15 04/15/24 23:18 Normal Saline Iv IV CONT 04/16/24 10:34 75 mls/hr .[id number] [facility] Administration Vancomycin HCl 1,500 mg in 500 mls @ 250 mls/hr 04/16/24 20:00 Vancomycin 1,500 Mg/Ns 500 Ml IVPB Q24H [facility] Loratadine 10 mg 04/16/24 09:00 Loratadine 10 Mg Tablet PO QAM [facility] Methocarbamol 500 mg 04/15/24 21:41 Methocarbamol 500 Mg Tablet PO TID PRN back spasms Montelukast Sodium 10 mg 04/16/24 09:00 Montelukast Sodium 10 Mg Tablet PO QAM [facility] Pantoprazole Sodium 40 mg 04/16/24 09:00 Pantoprazole 40 Mg Tablet PO BID [facility] Prednisone 40 mg 04/16/24 08:00 Prednisone 20 Mg Tablet PO 04/21/24 07:59 DAILY@0800 [facility] Roflumilast 500 mcg 04/15/24 21:55 04/15/24 23:20 Roflumilast 500 Mcg Tablet PO 500 mcg HS [facility] Administration Sodium Chloride 10 ml 04/16/24 14:00 Central Line Flush IV PUSH Q8HR [facility] Sodium Chloride 10 ml 04/16/24 06:55 Central Line Flush IV PUSH PRN PRN before/after int. infusion Sodium Chloride 20 ml 04/16/24 06:55 Central Line Flush IV PUSH PRN PRN after blood draws Radiology Results: ITS Impressions Chest CTA 04/15/24 14:27 IMPRESSION: No pulmonary embolus detected Severe bullous emphysema, bilateral scarring Mildly diminished size of right upper lobe paramediastinal mass density Prominent increased infiltrate in the right upper lobe, small new focal consolidation in the left upper lobe Bibasilar atelectasis Chest X-Ray 04/15/24 18:42 IMPRESSION: Right Port-A-Cath catheter tip overlies superior vena cava Bilateral infiltrates and scarring Severe bullous emphysema Labs Labs: Laboratory Results - last 24 hr 04/15/24 04/15/24 04/15/24 12:13 12:13 13:22 WBC 4.6 RBC 2.64 L Hgb 7.0 L Hct 22.1 L MCV 83.7 MCH 26.5 MCHC 31.7 L RDW 20.1 H Plt Count 159 MPV 10.5 H Immature Gran % (Auto) 5.1 H Neut % (Auto) 61.7 Lymph % (Auto) 4.6 L Geary % (Auto) 27.7 H Eos % (Auto) 0.2 Baso % (Auto) 0.7 Lymph # (Auto) 0.21 L Geary # (Auto) 1.3 H Eos # (Auto) 0.0 Baso # (Auto) 0.0 Abs Immat Gran (auto) 0.23 H Absolute Neuts (auto) 2.8 Absolute Nucleated RBC 0.000 Nucleated RBC % 0.0 Dohle Bodies Present Platelet Estimate Adequate Polychromasia 1+ Anisocytosis 1+ Microcytosis Schistocytes None seen PT 16.2 H INR 1.3 APTT 33.3 D-Dimer 2.20 H Sodium 138 Potassium 4.1 Chloride 103 Carbon Dioxide 21 L Anion Gap 14 H BUN 20 Creatinine 1.80 H Estim Creat Clear Calc 36 Estimated GFR 45 L Glucose 133 H Lactic Acid 2.1 H Calcium 9.0 Magnesium 1.8 Cancelled Total Bilirubin 1.0 AST 12 L ALT 12 Alkaline Phosphatase 93 Troponin I < 0.012 Total Protein 7.0 Albumin 3.8 Lipase 22 L Procalcitonin Urine Color Urine Appearance Urine pH Ur Specific [place] Urine Protein Urine Glucose (UA) Urine Ketones Ur Blood (Man) Urine Nitrate Urine Bilirubin Urine Urobilinogen Leukocyte Esterase Rfl Urine RBC Urine WBC Ur Squamous Epith Cells Urine Bacteria Urine Casts Nasal MRSA (PCR) Influenza A (RT-PCR) Negative Influenza B (RT-PCR) Negative RSV (RT-PCR) Negative SARS-CoV-2 RNA (RT-PCR) Negative Blood Type Antibody Screen Crossmatch 04/15/24 04/15/24 04/15/24 15:20 15:35 16:18 WBC RBC Hgb Hct MCV MCH MCHC RDW Plt Count MPV Immature Gran % (Auto) Neut % (Auto) Lymph % (Auto) Geary % (Auto) Eos % (Auto) Baso % (Auto) Lymph # (Auto) Geary # (Auto) Eos # (Auto) Baso # (Auto) Abs Immat Gran (auto) Absolute Neuts (auto) Absolute Nucleated RBC Nucleated RBC % Dohle Bodies Platelet Estimate Polychromasia Anisocytosis Microcytosis Schistocytes PT INR APTT D-Dimer Sodium Potassium Chloride Carbon Dioxide Anion Gap BUN Creatinine Estim Creat Clear Calc Estimated GFR Glucose Lactic Acid 1.2 Calcium Magnesium Total Bilirubin AST ALT Alkaline Phosphatase Troponin I < 0.012 Total Protein Albumin Lipase Procalcitonin Urine Color Urine Appearance Urine pH Ur Specific [place] Urine Protein Urine Glucose (UA) Urine Ketones Ur Blood (Man) Urine Nitrate Urine Bilirubin Urine Urobilinogen Leukocyte Esterase Rfl Urine RBC Urine WBC Ur Squamous Epith Cells Urine Bacteria Urine Casts Nasal MRSA (PCR) Not detected Influenza A (RT-PCR) Influenza B (RT-PCR) RSV (RT-PCR) SARS-CoV-2 RNA (RT-PCR) Blood Type Antibody Screen Crossmatch 04/15/24 04/15/24 04/16/24 17:44 19:10 05:00 WBC 5.8 RBC 2.73 L Hgb 7.3 L Hct 23.0 L MCV 84.2 MCH 26.7 MCHC 31.7 L RDW 19.7 H Plt Count 129 L MPV 9.3 Immature Gran % (Auto) 7.4 H Neut % (Auto) 59.8 Lymph % (Auto) 7.9 L Geary % (Auto) 23.5 H Eos % (Auto) 0.9 Baso % (Auto) 0.5 Lymph # (Auto) 0.46 L Geary # (Auto) 1.4 H Eos # (Auto) 0.1 Baso # (Auto) 0.0 Abs Immat Gran (auto) 0.43 H Absolute Neuts (auto) 3.5 Absolute Nucleated RBC 0.000 Nucleated RBC % 0.0 Dohle Bodies Present Platelet Estimate Decreased Polychromasia Anisocytosis 1+ Microcytosis 2+ Schistocytes None seen PT INR APTT D-Dimer Sodium 138 Potassium 3.8 Chloride 105 Carbon Dioxide 23 Anion Gap 10 BUN 18 Creatinine 1.30 Estim Creat Clear Calc 49 Estimated GFR > 60 Glucose 98 Lactic Acid Calcium 8.8 Magnesium Total Bilirubin 1.1 AST 16 L ALT 9 Alkaline Phosphatase 88 Troponin I < 0.012 Total Protein 7.0 Albumin 3.1 L Lipase Procalcitonin 0.9 Urine Color Yellow Urine Appearance Clear Urine pH 5.5 Ur Specific [place] > 1.045 H Urine Protein 1+ H Urine Glucose (UA) Negative Urine Ketones Negative Ur Blood (Man) Negative Urine Nitrate Negative Urine Bilirubin Negative Urine Urobilinogen 1.0 Leukocyte Esterase Rfl Negative Urine RBC 0-2 Urine WBC 0-5 Ur Squamous Epith Cells None seen Urine Bacteria None seen Urine Casts 0-2 Nasal MRSA (PCR) Influenza A (RT-PCR) Influenza B (RT-PCR) RSV (RT-PCR) SARS-CoV-2 RNA (RT-PCR) Blood Type A Positive Antibody Screen Negative Crossmatch See Detail
[2024-04-16] MEDS: guaiFENesin 12 HR 600 MG TABCR PO ×2 (09:38→20:49)
[2024-04-16] MEDS: predniSONE 20 MG TABLET 40 MG PO (09:38)
--- NOTE | 2024-04-16 09:38 | ECHO_ITS ---
Patient Info Name: Lee Cotto Age: 73 years : 1950 Gender: Male Ht: 68 in Wt: 198 lbs BSA: 2.10 m2 HR: 99 bpm BP: 105 / 65 mmHg Technical Quality: Good Exam Date: 04/16/2024 12:32 PM Exam Location: Echo Lab Patient Status: Outpatient Admit Date: 04/15/2024 Staff Ordering Physician: Serjio Blankenship MD Staff Development Manager: Jo Ann Landry RDCS Attending Provider: Prisca Summers PA-C Exam Type: CA echo doppler color flow Study Info Indications - CHF Complete two-dimensional, color flow and Doppler transthoracic echocardiogram is performed. Summary 1. Complete two-dimensional, color flow and Doppler transthoracic echocardiogram is performed. 2. Left ventricular chamber dimension is mildly enlarged. 3. Left ventricular systolic function is normal, estimated at 60-65%. 4. The left ventricular diastolic function is grade I diastolic dysfunction. 5. E/e' 10 is mildly elevated. 6. There is moderate aortic valve sclerosis. 7. There is mild mitral valve regurgitation. 8. There is mild tricuspid valve regurgitation. 9. Mild pulmonary hypertension, estimated pulmonary arterial systolic pressure is 42 mmHg. Left Ventricle E/e' 10 is mildly elevated. Left ventricular chamber dimension is mildly enlarged. Left ventricular systolic function is normal, estimated at 60-65%. The left ventricular diastolic function is grade I diastolic dysfunction. Right Ventricle Right ventricular systolic function is normal and with normal TAPSE 2.3 cm. Right ventricular chamber dimension is normal. Left Atria Left atrial chamber dimension is normal. Right Atria Right atrial chamber dimension is normal. Aortic Valve The aortic valve is trileaflet. There is moderate aortic valve sclerosis. There is no aortic valve stenosis. There is no aortic valve regurgitation. Pulmonic Valve There is no pulmonic regurgitation. Mitral Valve There is no mitral valve stenosis. There is mild mitral valve regurgitation. Tricuspid Valve There is mild tricuspid valve regurgitation. Mild pulmonary hypertension, estimated pulmonary arterial systolic pressure is 42 mmHg. Pericardium/Pleural There is no pericardial effusion. Inferior Vena Cava Normal inferior vena cava with >50% collapse upon inspiration consistent with normal right atrial pressure, 5 mmHg. Aorta The aortic root size at the sinus of Valsalva is normal. Left Ventricular Outflow Tract Name Value Normal LVOT Doppler LVOT Peak Gradient 7 mmHg LVOT Mean Gradient 3 mmHg LVOT VTI 21 cm LVOT VTI/AV VTI Ratio 0.7 Pulmonic Valve Name Value Normal PV Doppler PV Peak Gradient 3 mmHg Mitral Valve Name Value Normal MV Doppler MV Decel [place] 573 cm/s2 MV PHT 41 ms MV Area (PHT) 5.4 cm2 4.0-5.0 MV Diastolic Function MV E Peak Velocity 80 cm/s MV A Peak Velocity 101 cm/s MV E/A 0.8 MV Decel Time 140 ms Tricuspid Valve Name Value Normal TV Regurgitation Doppler TR Peak Velocity 303 cm/s TR Peak Gradient 33 mmHg Estimated PAP/RSVP RA Pressure 5 mmHg <=5 PA Systolic Pressure 42 mmHg <36 RV Systolic Pressure 42 mmHg <36 Aorta Name Value Normal Ascending Aorta Ao Root Diameter (MM) 3.6 cm Ao Root Diam Index (MM) 1.7 cm/m2 Aortic Valve Name Value Normal AV Doppler AV Peak Velocity 168 cm/s AV Peak Gradient 11 mmHg AV Mean Gradient 6 mmHg AV VTI 28 cm Ventricles Name Value Normal LV Dimensions 2D/MM IVS Diastolic Thickness (2D) 0.7 cm 0.6-1.0 IVS Diastole Thickness (MM) 1.1 cm 0.6-1.0 LVID Diastole (2D) 5.4 cm 4.2-5.8 LVID Diastole (MM) 5.0 cm 4.2-5.8 LVIW Diastolic Thickness (2D) 0.9 cm 0.6-1.0 LVIW Diastolic Thickness (MM) 1.3 cm 0.6-1.0 LVID Systole (2D) 3.8 cm 2.5-4.0 LVID Systole (MM) 3.8 cm 2.5-4.0 LV Mass (2D Cubed) 156.10 g 88.00-224.00 LV Mass Index (2D Cubed) 74 g/m2 49-115 Relative Wall Thickness (2D) 0.32 LV Mass (MM Cubed) 240.40 g 88.00-224.00 LV Mass Index (MM Cubed) 114 g/m2 49-115 Relative Wall Thickness (MM) 0.53 LV Fractional Shortening/Ejection Fraction 2D/MM LV Fractional Shortening (2D) 30 % 25-43 LV Fractional Shortening (MM) 24 % 25-43 LV EF (MM Teicholz) 48 % 52-72 LV EF (2D Teicholz) 57 % 52-72 LV Diastolic Volume (4C MOD) 113 ml LV EF (4C MOD) 58 % LV Diastolic Volume (2C MOD) 103 ml LV EF (2C MOD) 60 % LV Diastolic Volume (BP MOD) 108 ml 62-150 LV Diastolic Volume Index (BP MOD) 52 ml/m2 34-74 LV Systolic Volume (BP MOD) 44 ml 21-61 LV Systolic Volume Index (BP MOD) 21 ml/m2 11-31 LV EF (BP MOD) 59 % 52-72 LV Diastolic Length (4C) 9.3 cm LV Systolic Length (4C) 7.2 cm LV Stroke Volume (4C MOD) 65 ml Atria Name Value Normal LA Dimensions LA Dimension (MM) 3.5 cm 3.0-4.1 LA Volume (4C A-L) 50 ml LA Volume (BP A-L) 64 ml RA Dimensions RA Area (4C) 17.4 cm2 <=18.0 Report Signatures
[2024-04-16] MEDS: CYANOCOBALAMIN 1,000 MCG TABLET 1000 MCG PO (09:39)
[2024-04-16] MEDS: LORATADINE 10 MG TABLET PO (09:39)
[2024-04-16] MEDS: PANTOPRAZOLE 40 MG TABLET PO ×2 (09:39→16:06)
[2024-04-16] MEDS: FOLIC ACID 1 MG TABLET PO (09:39)
[2024-04-16] MEDS: MONTELUKAST SODIUM 10 MG TABLET PO (09:39)
[2024-04-16] MEDS: ASPIRIN 81 MG ENTERIC TABLET PO (09:40)
[2024-04-16] MEDS: FERROUS SULFATE 325 MG TABLET DR BY MOUTH (09:45)
[2024-04-16] MEDS: METOPROLOL TARTRATE 50 MG TAB PO (10:37)
[2024-04-16] MEDS: CENTRAL LINE FLUSH 10 ML IV PUSH ×2 (16:06→20:49)
[2024-04-16 16:31] LABS: Add Urine Microscopic? YES; Appearance Urine Cloudy (Clear); Bacteria Urine None Seen /hpf; Bilirubin Urine Negative (Negative); Blood Urine 2+ (Negative); Color Urine Yellow (Yellow); Glucose Urine UA Negative (Negative); Ketones Urine Negative (Negative); Leukocyte Esterase Ur Trace LEU/UL (Negative); Nitrate Urine Negative (Negative); Non Pathogenic Casts 0-2; Protein Urine 2+ mg/dL (Negative); Specific Grav Ur 1.023 (1.001-1.035); Squamous Epithelial Cell Urine Occasional /hpf (Few); WBC Urine 0-5 /hpf (0-3); pH Urine 5.5 (5.0-9.0)
--- NOTE | 2024-04-16 16:56 | PM.CNPUL ---
Assessment and Plan Assessment and plan (1) Pneumonia: Qualifiers: Laterality: bilateral Lung location: upper lobe of lung Pneumonia type: due to unspecified organism Qualified Code(s): J18.9 - Pneumonia, unspecified organism Code(s): J18.9 - Pneumonia, unspecified organism Status: Acute Assessment and Plan: (2) Hypoxic: Code(s): R09.02 - Hypoxemia Status: Acute Assessment and Plan: (3) History of recent pneumonia: Code(s): Z87.01 - Personal history of pneumonia (recurrent) Status: Acute Assessment and Plan: (4) Small cell lung cancer: Onset Date: 02/2024 Qualifiers: Laterality: right Code(s): C34.90 - Malignant neoplasm of unspecified part of unspecified bronchus or lung Status: Acute Assessment and Plan: Plan plan: 1. his nasal MRSA swab was negative, so Vanco was stopped. Continue Levaquin. 2. COPD management with inhaler; he is not wheezing at present. does not need systemic steroids. 3. O2; O2 need a little higher, now on 4 L. At home, was using 2 L at rest, 3 L with exertion and sleep. 4. had recent admission Mar 20 to with sepsis, fever, tachycardia History of Present Illness History of Present Illness Consult date: 04/16/24 Requesting physician: Serjio Blankenship MD Chief complaint: pneumonia,tachycardia,hypoxia Narrative: Patient seen April 16, 2024 at 20:15 in Room 201 [facility] consult: Lee Cotto is a 73-year-old man known to out practice; He is on O2 at 3 L/min at home. He came to the ER with shortness of breath and chest pain, was admitted with right sided pneumonia. He completed radiation Tuesday, had increased heart rate. He had a non-productive cough, became more short of breath Tuesday, almost drove himself to the ER. He was ahving chest discomfort in the right upper chest with coughing. His daughter brought him Mucinex however this did not help much. He was using an Acapella valve at home. Tuesday morning, he asked his to take him to the ER. His wbc was normal, CXR showed new wedge-shaped airspace opacities at the right midlung zone which could represent pneumonia versus pulmonary infarcts. Chest CTA showed no PE, severe bolus emphysema, bilateral scarring, mildly diminished size of right upper lobe paramediastinal mass, prominent increased infiltrate in the right upper lobe and small focal consolidation in the left upper lobe, bibasilar atelectasis. he feels better than he did at admission. His BMP was completely normal. White blood cell count 4.6, hemoglobin 7, hematocrit 22.1%, protime 16.2, INR 1.3, D-dimer elevated 2.2. Urinalysis 2+ protein, 2+ blood, no bacteria. Last pulmonary office visit was 03/26/2024; he was in [place] from Mar 20 to with sepsis with fever, tachycardia, neutropenia, and lactic acidosis in the setting of infection, had infiltrates, treated with Cefepime & doxycycline. At that visit, he was coughing a lot, had a hard time getting his secretions cleared. PMH: Asbestos exposure, COPD, PE, JIMMY, limited stage small cell lung cancer currently in treatment with chemotherapy and radiation; BPH, CKD, hep C, PE, HTN. DATA * 04/16/2024; echo : Complete two-dimensional, color flow and Doppler transthoracic echocardiogram is performed. 2. Left ventricular chamber dimension is mildly enlarged. 3. Left ventricular systolic function is normal, estimated at 60-65%. 4. The left ventricular diastolic function is grade I diastolic dysfunction. 5. E/e' 10 is mildly elevated. 6. There is moderate aortic valve sclerosis. 7. There is mild mitral valve regurgitation. 8. There is mild tricuspid valve regurgitation. 9. Mild pulmonary hypertension, estimated pulmonary arterial systolic pressure is 42 mmHg. * 04/15/2024; CXR * 04/15/2024 CXR = Right Port-A-Cath catheter tip overlies superior vena cava Bilateral infiltrates and scarring Severe bullous emphysema * 04/15/2024; chest CT : No pulmonary embolus detected Severe bullous emphysema, bilateral scarring Mildly diminished size of right upper lobe paramediastinal mass density Prominent increased infiltrate in the right upper lobe, small new focal consolidation in the left upper lobe Bibasilar atelectasis Review of Systems Review of Systems: All systems reviewed & are unremarkable except as noted in HPI and below PMFSH Past Medical History Medical History Asbestos exposure Benign prostatic hyperplasia Chronic kidney disease Chronic obstructive pulmonary disease Chronic respiratory failure with hypoxia, on home oxygen therapy Chronic viral hepatitis C Elevated PSA Environmental allergies Former smoker Former smoker G6PD deficiency GERD (gastroesophageal reflux disease) Hepatitis C History of biliary stent insertion Hypertension Pulmonary emboli (11/2021) Sleep apnea Small cell lung cancer (02/2024) Surgical History Surgical History History of ankle surgery (2015) History of back surgery Family History Family History Father Cancer Pancreatic cancer Mother Asthma Cerebrovascular accident Sibling Diabetes mellitus Hypertension Heart disease Cerebrovascular accident Cancer of colon Other Lung disease Social History Social History Social History: Surrogate medical decision maker: Negin Cotto, spouse. Code status: Full code. Smoking packs per day: 1 Smoking cigarettes per day: 20.0 Years smoked: 50 Smoking pack-years: 50.00 Smoking status: Former smoker Tobacco type: cigarettes Smoking end date: 06/13/17 Alcohol intake: former Drinks per week: 1 Alcohol use details: Social alcohol use in moderation. Substance use: never Substance use type: does not use Do You Feel Safe in your Home?: Yes Lack of Transportation: No Lack of Food: Never True Current Housing: I Have Housing Concerned About Future Housing: No Difficulty Paying Gas/Electric Bills: YES Difficulty Paying for Meds: No Currently Unemployed: No Education: High School Diploma/GED Difficulty w/ Childcare or Family Care: No Living arrangements: alone Occupation/Education: retired Spiritual care concerns: No Meds Home Medications and Allergies Home Medications Medication Instructions Recorded Confirmed Type amlodipine 10 mg tablet 10 mg PO QAM 03/07/20 04/15/24 History doxazosin 8 mg tablet 8 mg PO HS 03/07/20 04/15/24 History ergocalciferol (vitamin D2) 1,250 1,250 mcg PO WEEKLY 03/07/20 04/15/24 History mcg (50,000 unit) capsule fluticasone propionate 50 1 spray intranasal DAILY PRN 03/07/20 04/15/24 History mcg/actuation nasal Congestion spray,suspension nebulizer and compressor (Easy Neb #1 ea 03/07/20 04/15/24 History Compressor Nebulizer) sildenafil 100 mg tablet 100 mg PO DAILY PRN Erectile 03/07/20 04/15/24 History Dysfunction omeprazole 40 mg capsule,delayed 40 mg PO DAILY 01/28/23 04/15/24 History release albuterol sulfate 2.5 mg/3 mL 2.5 mg (3 mL) inhalation Q4-6H PRN 03/18/23 04/15/24 Rx (0.083 %) solution for nebulization Shortness Of Breath Or Wheezing #1,080 mL montelukast 10 mg tablet 10 mg PO QAM #90 tabs 04/25/23 04/15/24 Rx (Singulair) methocarbamol 500 mg tablet 500 mg PO PRN PRN back spasms 08/30/23 04/15/24 History roflumilast 500 mcg tablet 500 mcg PO HS copd 08/30/23 04/15/24 History revefenacin 175 mcg/3 mL solution 175 mcg/3 mL Solution For 09/21/23 04/15/24 Sample for nebulization (Jessicai) Nebulization#3 Samples arformoterol 15 mcg/2 mL solution See Rx Instructions .Route 03/19/24 04/15/24 Rx for nebulization .COMPLEX #120 mL metoprolol tartrate 25 mg tablet 50 mg PO DAILY #60 tabs 03/24/24 04/15/24 Rx Vitamin C 1 tab-cap PO DAILY 03/30/24 04/15/24 History ferrous sulfate 1 tab-cap PO DAILY 03/30/24 04/15/24 History vitamin [id number] acid 1 tab-cap PO DAILY 03/30/24 04/15/24 History albuterol sulfate 90 mcg/actuation See Rx Instructions .Route 04/12/24 04/15/24 Rx aerosol inhaler .COMPLEX #3 ea baclofen 10 mg tablet 10 mg PO TID PRN Hiccups 04/15/24 04/15/24 History budesonide 0.25 mg/2 mL suspension 0.25 mg inhalation BID 04/15/24 04/15/24 History for nebulization levocetirizine 5 mg tablet 5 mg PO DAILY 04/15/24 04/15/24 History metoprolol tartrate 25 mg tablet 25 mg PO HS 04/15/24 04/15/24 History acetaminophen 325 mg tablet 650 mg PO Q6H PRN Mild Pain (1-3) 04/18/24 Rx Or Fever benzocaine 6 mg-menthol 10 mg 1 brent PO PRN PRN Sore Throat 04/18/24 Rx lozenges (Chloraseptic Sore Throat) benzonatate 100 mg capsule 100 mg PO TID PRN Cough 04/18/24 Rx guaifenesin 600 mg tablet, 600 mg PO Q12HR 04/18/24 Rx extended release 12 hr (Mucus Relief ER) levofloxacin 750 mg tablet 750 mg PO DAILY #5 tabs 04/19/24 Rx Allergies Allergy/AdvReac Type Severity Reaction Status Date / Time lisinopril Allergy Severe Swelling Verified 04/15/24 19:53 Penicillins Allergy Intermediate Hives / Verified 04/15/24 19:53 Red Face Sulfa (Sulfonamide Allergy Intermediate Hives / Verified 04/15/24 19:53 Antibiotics) Red Face Vital Signs Vital Signs - 24 hr 04/15/24 17:46 04/15/24 18:48 04/15/24 19:24 Temperature 37.3 C 37.5 C Pulse Rate 124 H 127 H 121 H Respiratory Rate 26 H 28 H 29 H Blood Pressure 117/67 122/73 126/74 Pulse Oximetry 95 95 94 Oxygen Delivery Oxygen Flow Rate Fraction of Inspired Oxygen 04/15/24 19:37 04/15/24 19:41 04/15/24 20:08 Temperature 37.5 C 37.2 C 37.1 C Pulse Rate 120 H 120 H 115 H Respiratory Rate 30 H 30 H 17 Blood Pressure 101/64 101/64 120/69 Pulse Oximetry 97 96 95 Oxygen Delivery Oxygen Flow Rate Fraction of Inspired Oxygen 04/15/24 20:18 04/15/24 20:50 04/15/24 20:50 Temperature 36.8 C Pulse Rate 125 H 120 H Respiratory Rate 24 H 20 Blood Pressure 127/49 L Pulse Oximetry 98 100 Oxygen Delivery Nasal Cannula Oxygen Flow Rate 4 Fraction of Inspired Oxygen 04/15/24 20:51 04/15/24 20:41 04/15/24 22:00 Temperature 36.8 C Pulse Rate 115 H 115 H 112 H Respiratory Rate 20 20 Blood Pressure 105/50 L Pulse Oximetry 97 Oxygen Delivery Oxygen Flow Rate Fraction of Inspired Oxygen 04/15/24 21:40 04/15/24 23:53 04/15/24 23:53 Temperature 36.7 C Pulse Rate 109 H 112 H Respiratory Rate 18 18 Blood Pressure 110/54 L 110/54 L Pulse Oximetry 98 98 Oxygen Delivery Nasal Cannula Oxygen Flow Rate 4 Fraction of Inspired Oxygen 04/16/24 00:00 04/16/24 00:00 04/16/24 01:07 Temperature 36.8 C Pulse Rate 107 H 112 H 102 H Respiratory Rate 16 20 Blood Pressure 115/69 Pulse Oximetry 94 Oxygen Delivery Oxygen Flow Rate Fraction of Inspired Oxygen 04/16/24 01:16 04/16/24 02:00 04/16/24 03:59 Temperature 36.8 C Pulse Rate 108 H 113 H 117 H Respiratory Rate 20 20 Blood Pressure 111/63 Pulse Oximetry 94 Oxygen Delivery Oxygen Flow Rate Fraction of Inspired Oxygen 04/16/24 04:00 04/16/24 04:00 04/16/24 04:00 Temperature Pulse Rate 117 H 122 H Respiratory Rate 20 Blood Pressure 111/63 Pulse Oximetry 94 Oxygen Delivery Nasal Cannula Oxygen Flow Rate 4 Fraction of Inspired Oxygen 04/16/24 06:00 04/16/24 07:32 04/16/24 07:32 Temperature Pulse Rate 126 H 122 H Respiratory Rate 24 H Blood Pressure Pulse Oximetry 100 Oxygen Delivery Nasal Cannula Oxygen Flow Rate 4 Fraction of Inspired Oxygen 36 04/16/24 07:42 04/16/24 08:00 04/16/24 10:37 Temperature 37.2 C Pulse Rate 120 H 95 120 H Respiratory Rate 24 H 24 H Blood Pressure 105/65 Pulse Oximetry 100 Oxygen Delivery Oxygen Flow Rate Fraction of Inspired Oxygen 04/16/24 10:38 04/16/24 08:00 04/16/24 08:00 Temperature Pulse Rate 119 H 132 H Respiratory Rate Blood Pressure 119/60 Pulse Oximetry 93 Oxygen Delivery Nasal Cannula Oxygen Flow Rate 4 Fraction of Inspired Oxygen 04/16/24 10:00 04/16/24 12:00 04/16/24 12:00 Temperature Pulse Rate 97 106 H 106 H Respiratory Rate 24 H Blood Pressure Pulse Oximetry 93 Oxygen Delivery Nasal Cannula Oxygen Flow Rate 4 Fraction of Inspired Oxygen 04/16/24 12:00 04/16/24 13:32 04/16/24 13:32 Temperature 37.2 C Pulse Rate 93 104 H Respiratory Rate 24 H 20 Blood Pressure 106/60 Pulse Oximetry 97 99 Oxygen Delivery Nasal Cannula Oxygen Flow Rate 4 Fraction of Inspired Oxygen 36 04/16/24 13:40 04/16/24 14:00 04/16/24 16:00 Temperature 36.9 C Pulse Rate 105 H 106 H 105 H Respiratory Rate 20 24 H Blood Pressure 125/70 Pulse Oximetry 98 Oxygen Delivery Oxygen Flow Rate Fraction of Inspired Oxygen Exam Narrative: EN: Alert, oriented, not in distress. He is sitting in a chair watching a football game.O2 at 4 L/min, saturation 93-98%. He is on O2 at home, 2 L with rest, 3 L with exertion. Pulse 107 sinus tach, blood pressure 112/58, respirations 20. HEENT: pupils are equal, EOMI, symmetrical face; oral membranes moist, no oral lesions NECK: Trachea is midline CHEST: Equal air entry, symmetric excursion, decreased breath sounds, few rhonchi; no wheezes CV: Regular S1S2 no m/g/r ABD : (+) bowel sounds Extremities : no clubbing, cyanosis, or edema, pulse are palpable no calf tenderness Results Laboratory Findings 04/16/24 05:00 04/16/24 05:00 ABG, PT/INR, D-dimer: PT/INR, D-dimer PT 16.2 Seconds (11.1-14.7) H 04/15/24 12:13 INR 1.3 04/15/24 12:13 D-Dimer 2.20 ug/mL (<0.48) H 04/15/24 12:13 Abnormal lab findings: Abnormal Labs 04/15/24 04/15/24 04/15/24 12:13 17:44 19:10 RBC 2.64 L Hgb 7.0 L Hct 22.1 L MCHC 31.7 L RDW 20.1 H Plt Count MPV 10.5 H Immature Gran % (Auto) 5.1 H Lymph % (Auto) 4.6 L [place] % (Auto) 27.7 H Lymph # (Auto) 0.21 L [place] # (Auto) 1.3 H Abs Immat Gran (auto) 0.23 H PT 16.2 H D-Dimer 2.20 H Carbon Dioxide 21 L Anion Gap 14 H Creatinine 1.80 H Estimated GFR 45 L Glucose 133 H Lactic Acid 2.1 H AST 12 L Albumin Lipase 22 L Urine Appearance Ur Specific [place] > 1.045 H Urine Protein 1+ H Ur Blood (Man) Ur Leukocyte Esterase Urine RBC Crossmatch See Detail 04/16/24 04/16/24 05:00 16:13 RBC 2.73 L Hgb 7.3 L Hct 23.0 L MCHC 31.7 L RDW 19.7 H Plt Count 129 L MPV Immature Gran % (Auto) 7.4 H Lymph % (Auto) 7.9 L [place] % (Auto) 23.5 H Lymph # (Auto) 0.46 L [place] # (Auto) 1.4 H Abs Immat Gran (auto) 0.43 H PT D-Dimer Carbon Dioxide Anion Gap Creatinine Estimated GFR Glucose Lactic Acid AST 16 L Albumin 3.1 L Lipase Urine Appearance Cloudy H Ur Specific [place] Urine Protein 2+ H Ur Blood (Man) 2+ H Ur Leukocyte Esterase Trace H Urine RBC 11-20 H Crossmatch
--- NOTE | 2024-04-16 19:47 | P.CONONC_ITS ---
HPI - Date of Consult Date/Time: 04/16/24 19:47 Requesting Physician: Prisca Summers PA-C Primary Care Provider: Jose Rivera MD - Consult Narrative Narrative: Lee Cotto Sr. is a 73 year old male who presented to [facility] with chest pain and shortness of breath. Patient has PMH of Asbestos exposure, BPH, CKD, COPD, hep C, PE, HTN, sleep apnea, and limited stagesmall cell lung cancer currently in treatment with chemotherapy and radiation. Patient sees Dr. Brown in oncology and underwent Cycle 2 of chemotherapy with Cisplatin and etoposide on -03/30/24. He is also getting concurrent radiation therapy. Last radiation therapy was on 04/13/24. Patient is on 3L of oxygen at baseline at home. In the ER CBC showed normal WBC, hemoglobin 7.0 (previously 9.1 on 04/02/2024), absolute neutrophils within normal limits, INR 1.3, elevated D-dimer, creatinine 1.8 and GFR 45 (previously 1.2 and GFR >60 on 03/28/2024. viral PCR negative. CXR showed a few new wedge-shaped airspace opacities at the right midlung zone which could represent pneumonia versus pulmonary infarcts. Chest CTA showed no PE, severe bolus emphysema, bilateral scarring, mildly diminished size of right upper lobe paramediastinal mass, prominent increased infiltrate in the right upper lobe and small focal consolidation in the left upper lobe, bibasilar atelectasis. Patient is admitted for pneumonia and is getting antibiotics with IV levofloxacin. Review of Systems - Constitutional Reports lack of energy, Reports weakness, Reports weight loss - Eyes Comments: Normal - ENT Comments: Normal - Cardiovascular Comments: Patient was experiencing right-sided chest pain prior to admission which has resolved - Respiratory Reports chest congestion, Reports cough - Gastrointestinal Comments: No abdominal pain nausea vomiting or diarrhea - Musculoskeletal Reports body aches - Neurologic Reports hearing normal [facility] Medical History: Medical History (Last Reviewed 04/15/24 @ 21:39 by Emily Hassan, [employer]) Asbestos exposure Benign prostatic hyperplasia Chronic kidney disease Chronic obstructive pulmonary disease Chronic respiratory failure with hypoxia, on home oxygen therapy Chronic viral hepatitis C Elevated PSA Environmental allergies Former smoker Former smoker G6PD deficiency GERD (gastroesophageal reflux disease) Hepatitis C History of biliary stent insertion Hypertension Pulmonary emboli Onset Date: 11/2021 Sleep apnea Small cell lung cancer Onset Date: 02/2024 Surgical History: Surgical History (Last Reviewed 04/15/24 @ 21:39 by Emily Hassan APRN) History of ankle surgery Onset Date: 2015 History of back surgery Family History: Family History (Last Reviewed 04/15/24 @ 21:39 by Emily Hassan APRN) Father Cancer Pancreatic cancer Mother Asthma Cerebrovascular accident Sibling Diabetes mellitus Hypertension Heart disease Cerebrovascular accident Cancer of colon Other Lung disease - Social History Social History: Social History (Last Reviewed 04/15/24 @ 21:39 by Emily Hassan APRN) Alcohol Use: Alcohol intake: former Drinks per week: 1 Alcohol use details: Social alcohol use in moderation. Substance Use: Substance use: never Substance use type: does not use Others: Spiritual care concerns: No Living Arrangements: Living arrangements: alone Oppucation/Education: Occupation/Education: retired Smoking Status: Smoking status: Former smoker Tobacco type: cigarettes Smoking end date: 06/13/17 Approximate Smoking End Date: 2017 Smoking Pack-years: Smoking packs per day: 1 Smoking cigarettes per day: 20.0 Years smoked: 50 Smoking pack-years: 50.00 Social Determinants of Health: Do You Feel Safe in your Home?: Yes Has the Lack of Transportation Kept You From Medical Appointments or From Getting Medications?: No Within the Past 12 Months, Were You Worried Whether Your Food Would Run Out Before You Got Money to Buy More?: Never True What is Your Housing Situation Today?: I Have Housing Are You Worried That in the Next 2 Months, You May Not Have Your Own Housing to Live In?: No Do You Have Trouble Paying Your Heating Or Electricity Bill?: Yes Do You Have Trouble Paying For Medicines?: No Are You Currently Unemployed and Looking for Work?: No Highest Level of Education Completed: High School Diploma/GED Do You Have Trouble With Childcare or the Care of a Family Member?: No Exam - Vital Signs Vital Signs - 24 hr 04/15/24 20:08 04/15/24 20:18 04/15/24 20:50 Temperature 37.1 C 36.8 C Pulse Rate 115 H 125 H Respiratory Rate 17 24 H Blood Pressure 120/69 127/49 L Pulse Oximetry 95 98 100 Oxygen Delivery Nasal Cannula Oxygen Flow Rate 4 Fraction of Inspired Oxygen 04/15/24 20:50 04/15/24 20:51 04/15/24 20:41 Temperature 36.8 C Pulse Rate 120 H 115 H 115 H Respiratory Rate 20 20 20 Blood Pressure 105/50 L Pulse Oximetry 97 Oxygen Delivery Oxygen Flow Rate Fraction of Inspired Oxygen 04/15/24 22:00 04/15/24 21:40 04/15/24 23:53 Temperature 36.7 C Pulse Rate 112 H 109 H Respiratory Rate 18 Blood Pressure 110/54 L 110/54 L Pulse Oximetry 98 Oxygen Delivery Oxygen Flow Rate Fraction of Inspired Oxygen 04/15/24 23:53 04/16/24 00:00 04/16/24 00:00 Temperature 36.8 C Pulse Rate 112 H 107 H 112 H Respiratory Rate 18 16 Blood Pressure 115/69 Pulse Oximetry 98 94 Oxygen Delivery Nasal Cannula Oxygen Flow Rate 4 Fraction of Inspired Oxygen 04/16/24 01:07 04/16/24 01:16 04/16/24 02:00 Temperature Pulse Rate 102 H 108 H 113 H Respiratory Rate 20 20 Blood Pressure Pulse Oximetry Oxygen Delivery Oxygen Flow Rate Fraction of Inspired Oxygen 04/16/24 03:59 04/16/24 04:00 04/16/24 04:00 Temperature 36.8 C Pulse Rate 117 H 117 H Respiratory Rate 20 20 Blood Pressure 111/63 111/63 Pulse Oximetry 94 94 Oxygen Delivery Nasal Cannula Oxygen Flow Rate 4 Fraction of Inspired Oxygen 04/16/24 04:00 04/16/24 06:00 04/16/24 07:32 Temperature Pulse Rate 122 H 126 H Respiratory Rate Blood Pressure Pulse Oximetry 100 Oxygen Delivery Nasal Cannula Oxygen Flow Rate 4 Fraction of Inspired Oxygen 36 04/16/24 07:32 04/16/24 07:42 04/16/24 08:00 Temperature 37.2 C Pulse Rate 122 H 120 H 95 Respiratory Rate 24 H 24 H 24 H Blood Pressure 105/65 Pulse Oximetry 100 Oxygen Delivery Oxygen Flow Rate Fraction of Inspired Oxygen 04/16/24 10:37 04/16/24 10:38 04/16/24 08:00 Temperature Pulse Rate 120 H 119 H Respiratory Rate Blood Pressure 119/60 Pulse Oximetry 93 Oxygen Delivery Nasal Cannula Oxygen Flow Rate 4 Fraction of Inspired Oxygen 04/16/24 08:00 04/16/24 10:00 04/16/24 12:00 Temperature Pulse Rate 132 H 97 106 H Respiratory Rate Blood Pressure Pulse Oximetry Oxygen Delivery Oxygen Flow Rate Fraction of Inspired Oxygen 04/16/24 12:00 04/16/24 12:00 04/16/24 13:32 Temperature 37.2 C Pulse Rate 106 H 93 Respiratory Rate 24 H 24 H Blood Pressure 106/60 Pulse Oximetry 93 97 99 Oxygen Delivery Nasal Cannula Nasal Cannula Oxygen Flow Rate 4 4 Fraction of Inspired Oxygen 36 04/16/24 13:32 04/16/24 13:40 04/16/24 14:00 Temperature Pulse Rate 104 H 105 H 106 H Respiratory Rate 20 20 Blood Pressure Pulse Oximetry Oxygen Delivery Oxygen Flow Rate Fraction of Inspired Oxygen 04/16/24 16:00 04/16/24 16:00 04/16/24 16:00 Temperature 36.9 C Pulse Rate 105 H 105 H 105 H Respiratory Rate 24 H 24 H Blood Pressure 125/70 Pulse Oximetry 98 98 Oxygen Delivery Nasal Cannula Oxygen Flow Rate 4 Fraction of Inspired Oxygen 04/16/24 18:00 Temperature Pulse Rate 112 H Respiratory Rate Blood Pressure Pulse Oximetry Oxygen Delivery Oxygen Flow Rate Fraction of Inspired Oxygen - Exam HEENT: EOMI, PERRLA Neck: supple Lungs: decrease breath sounds, wheezes Heart: no murmurs, gallops, or rubs, regular rhythm, regular rate Abdomen: abdomen soft, non-distended, normal bowel sounds Extremities: normal pulses - Lab Results Laboratory Last Values WBC 5.8 K/mm3 (4.5-10.0) 04/16/24 05:00 RBC 2.73 M/mm3 (4.6-6.20) L 04/16/24 05:00 Hgb 7.3 g/dL (14.0-18.0) L 04/16/24 05:00 Hct 23.0 % (42.0-52.0) L 04/16/24 05:00 MCV 84.2 fl (80-100) 04/16/24 05:00 MCH 26.7 pg (26-34) 04/16/24 05:00 MCHC 31.7 g/dl (32-36) L 04/16/24 05:00 RDW 19.7 % (11.5-14.5) H 04/16/24 05:00 Plt Count 129 k/mm3 (150-375) L 04/16/24 05:00 MPV 9.3 fl (7.4-10.4) 04/16/24 05:00 Immature Gran % (Auto) 7.4 % (0-0.5) H 04/16/24 05:00 Neut % (Auto) 59.8 % (45.5-73.1) 04/16/24 05:00 Lymph % (Auto) 7.9 % (18.3-44.2) L 04/16/24 05:00 [place] % (Auto) 23.5 % (2.6-8.5) H 04/16/24 05:00 Eos % (Auto) 0.9 % (0-4.4) 04/16/24 05:00 Baso % (Auto) 0.5 % (0.2-1.2) 04/16/24 05:00 Lymph # (Auto) 0.46 K/mm3 (0.9-3.2) L 04/16/24 05:00 [place] # (Auto) 1.4 K/mm3 (0.1-0.6) H 04/16/24 05:00 Eos # (Auto) 0.1 K/mm3 (0-0.3) 04/16/24 05:00 Baso # (Auto) 0.0 K/mm3 (0.0-0.1) 04/16/24 05:00 Abs Immat Gran (auto) 0.43 K/mm3 (0.00-0.031) H 04/16/24 05:00 Absolute Neuts (auto) 3.5 K/mm3 (1.3-6.7) 04/16/24 05:00 Absolute Nucleated RBC 0.000 K/mm3 (0.0-0.012) 04/16/24 05:00 Nucleated RBC % 0.0 % (0.0-0.2) 04/16/24 05:00 Dohle Bodies Present 04/16/24 05:00 Platelet Estimate Decreased (Adequate) 04/16/24 05:00 Polychromasia 1+ 04/15/24 12:13 Anisocytosis 1+ 04/16/24 05:00 Microcytosis 2+ (NORMAL) 04/16/24 05:00 Schistocytes None seen 04/16/24 05:00 PT 16.2 Seconds (11.1-14.7) H 04/15/24 12:13 INR 1.3 04/15/24 12:13 APTT 33.3 Seconds (22.3-36.8) 04/15/24 12:13 D-Dimer 2.20 ug/mL (<0.48) H 04/15/24 12:13 Sodium 138 mmol/L (137-145) 04/16/24 05:00 Potassium 3.8 mmol/L (3.4-5.0) 04/16/24 05:00 Chloride 105 mmol/L (98-107) 04/16/24 05:00 Carbon Dioxide 23 mmol/L (22-30) 04/16/24 05:00 Anion Gap 10 mmol/L (4-12) 04/16/24 05:00 BUN 18 mg/dL (9-20) 04/16/24 05:00 Creatinine 1.30 mg/dL (0.7-1.3) 04/16/24 05:00 Estim Creat Clear Calc 49 ml/min 04/16/24 05:00 Estimated GFR > 60 (59-) 04/16/24 05:00 Glucose 98 mg/dL (65-110) 04/16/24 05:00 Lactic Acid 1.2 mmol/L (0.7-2.0) 04/15/24 15:35 Calcium 8.8 mg/dL (8.4-10.2) 04/16/24 05:00 Magnesium 1.8 mg/dL (1.6-2.3) 04/15/24 12:13 Magnesium Cancelled 04/15/24 12:13 Total Bilirubin 1.1 mg/dL (0.2-1.3) 04/16/24 05:00 AST 16 U/L (17-59) L 04/16/24 05:00 ALT 9 U/L (6-50) 04/16/24 05:00 Alkaline Phosphatase 88 U/L (38-126) 04/16/24 05:00 Troponin I < 0.012 ng/mL (0.000-0.034) 04/15/24 17:44 Total Protein 7.0 g/dL (6.3-8.2) 04/16/24 05:00 Albumin 3.1 g/dL (3.5-5.1) L 04/16/24 05:00 Lipase 22 U/L (23-300) L 04/15/24 12:13 Procalcitonin 0.9 ng/mL 04/15/24 17:44 Urine Color Yellow (Yellow) 04/16/24 16:13 Urine Appearance Cloudy (Clear) H 04/16/24 16:13 Urine pH 5.5 (5.0-9.0) 04/16/24 16:13 Ur Specific [place] 1.023 (1.001-1.035) 04/16/24 16:13 Urine Protein 2+ mg/dL (Negative) H 04/16/24 16:13 Urine Glucose (UA) Negative mg/dL (Negative) 04/16/24 16:13 Urine Ketones Negative mg/dL (Negative) 04/16/24 16:13 Ur Blood (Man) 2+ (Negative) H 04/16/24 16:13 Urine Nitrate Negative (Negative) 04/16/24 16:13 Urine Bilirubin Negative (Negative) 04/16/24 16:13 Urine Urobilinogen 1.0 mg/dL (<2.0) 04/16/24 16:13 Ur Leukocyte Esterase Trace THERESE/UL (Negative) H 04/16/24 16:13 Leukocyte Esterase Rfl Negative THERESE/UL (Negative) 04/15/24 19:10 Urine RBC 11-20 /hpf (0-2) H 04/16/24 16:13 Urine WBC 0-5 /hpf (0-3) 04/16/24 16:13 Ur Squamous Epith Cells Occasional /hpf (Few) 04/16/24 16:13 Urine Bacteria None seen /hpf 04/16/24 16:13 Urine Casts 0-2 04/16/24 16:13 Nasal MRSA (PCR) Not detected (NOT DETECTE) 04/15/24 16:18 Influenza A (RT-PCR) Negative (Negative) 04/15/24 13:22 Influenza B (RT-PCR) Negative (Negative) 04/15/24 13:22 RSV (RT-PCR) Negative (Negative) 04/15/24 13:22 SARS-CoV-2 RNA (RT-PCR) Negative (Negative) 04/15/24 13:22 Blood Type A Positive 04/15/24 17:44 Antibody Screen Negative 04/15/24 17:44 Crossmatch See Detail 04/15/24 17:44 Meds Home Medications Medication Instructions Recorded Confirmed Type amlodipine 10 mg tablet 10 mg PO QAM 03/07/20 04/15/24 History doxazosin 8 mg tablet 8 mg PO HS 03/07/20 04/15/24 History ergocalciferol (vitamin D2) 1,250 1,250 mcg PO WEEKLY 03/07/20 04/15/24 History mcg (50,000 unit) capsule fluticasone propionate 50 1 spray intranasal DAILY PRN 03/07/20 04/15/24 History mcg/actuation nasal Congestion spray,suspension nebulizer and compressor (Easy Neb #1 ea 03/07/20 04/15/24 History Compressor Nebulizer) sildenafil 100 mg tablet 100 mg PO DAILY PRN Erectile 03/07/20 04/15/24 History Dysfunction aspirin 81 mg tablet 81 mg PO DAILY 08/04/20 04/15/24 History omeprazole 40 mg capsule,delayed 40 mg PO DAILY 01/28/23 04/15/24 History release albuterol sulfate 2.5 mg/3 mL 2.5 mg (3 mL) inhalation Q4-6H PRN 03/18/23 Rx (0.083 %) solution for nebulization Shortness Of Breath Or Wheezing #1,080 mL montelukast 10 mg tablet 10 mg PO QAM #90 tabs 04/25/23 04/15/24 Rx (Singulair) methocarbamol 500 mg tablet 500 mg PO PRN PRN back spasms 08/30/23 04/15/24 History roflumilast 500 mcg tablet 500 mcg PO HS copd 08/30/23 04/15/24 History revefenacin 175 mcg/3 mL solution 175 mcg/3 mL Solution For 09/21/23 04/15/24 Sample for nebulization (Yupealphonsoi) Nebulization#3 Samples arformoterol 15 mcg/2 mL solution See Rx Instructions .Route 03/19/24 04/15/24 Rx for nebulization .COMPLEX #120 mL metoprolol tartrate 25 mg tablet 50 mg PO DAILY #60 tabs 03/24/24 04/15/24 Rx Vitamin C 1 tab-cap PO DAILY 03/30/24 04/15/24 History ferrous sulfate 1 tab-cap PO DAILY 03/30/24 04/15/24 History vitamin [id number] acid 1 tab-cap PO DAILY 03/30/24 04/15/24 History albuterol sulfate 90 mcg/actuation See Rx Instructions .Route 04/12/24 04/15/24 Rx aerosol inhaler .COMPLEX #3 ea baclofen 10 mg tablet 10 mg PO TID PRN Hiccups 04/15/24 04/15/24 History budesonide 0.25 mg/2 mL suspension 0.25 mg inhalation BID 04/15/24 04/15/24 History for nebulization levocetirizine 5 mg tablet 5 mg PO DAILY 04/15/24 04/15/24 History metoprolol tartrate 25 mg tablet 25 mg PO HS 04/15/24 04/15/24 History Allergies Allergy/AdvReac Type Severity Reaction Status Date / Time lisinopril Allergy Severe Swelling Verified 04/15/24 19:53 Penicillins Allergy Intermediate Hives / Verified 04/15/24 19:53 Red Face Sulfa (Sulfonamide Allergy Intermediate Hives / Verified 04/15/24 19:53 Antibiotics) Red Face Results - Labs CBC & Chem 7: 04/16/24 05:00 04/16/24 05:00 Labs: Short CBC 04/16/24 Range/Units 05:00 WBC 5.8 (4.5-10.0) K/mm3 Hgb 7.3 L (14.0-18.0) g/dL Hct 23.0 L (42.0-52.0) % Plt Count 129 L (150-375) k/mm3 BMP 04/16/24 05:00 Sodium 138 Potassium 3.8 Chloride 105 Carbon Dioxide 23 BUN 18 Creatinine 1.30 Glucose 98 Calcium 8.8 Liver Function 04/16/24 Range/Units 05:00 Total Bilirubin 1.1 (0.2-1.3) mg/dL AST 16 L (17-59) U/L ALT 9 (6-50) U/L Alkaline Phosphatase 88 (38-126) U/L Albumin 3.1 L (3.5-5.1) g/dL Urine 04/16/24 Range/Units 16:13 Urine Color Yellow (Yellow) Urine Appearance Cloudy H (Clear) Urine pH 5.5 (5.0-9.0) Ur Specific [place] 1.023 (1.001-1.035) Urine Protein 2+ H (Negative) mg/dL Urine Glucose (UA) Negative (Negative) mg/dL Assessment and Plan (1) Small cell lung cancer Onset Date: 02/2024 Qualifiers: Laterality: right Code(s): C34.90 - Malignant neoplasm of unspecified part of unspecified bronchus or lung Status: Acute Assessment and Plan: Patient with limited stage small cell lung cancer undergoing treatment with cisplatinum etoposide and radiation therapy. Patient received his last chemotherapy on 03/28/24- 03/30/24. His most recent radiation was on 04/13/2024. A CT scan of the chest performed on April 15, 2024 showed slight decrease in the size of right lung mass. Currently he is admitted for pneumonia and will get the treatment for pneumonia. After discharge he will see Dr. Brown as an outpatient for chemotherapy. He will also follow with radiation oncology as well. Oncology is available for any questions.
[2024-04-16] MEDS: METOPROLOL TARTRATE 25 MG TABLET PO (20:49)
[2024-04-16] MEDS: ROFLUMILAST 500 MCG TABLET PO (20:49)
[2024-04-16] MEDS: DOXAZOSIN MESYLATE 4 MG TABLET 8 MG PO (20:49)
[2024-04-17] VITALS (24 sets, daily range): BP systolic 105–132; BP diastolic 60–72; PULSE 76–119; RESP 16–24; TEMP 36.4–37.1; O2SAT 95–100
[2024-04-17] MEDS: IPRATROPIUM 0.5 MG/ALBUTEROL SULFATE 2.5 MG AMPUL.NEB 3 ML INHALATION ×4 (01:10→20:54)
[2024-04-17] MEDS: CENTRAL LINE FLUSH 10 ML IV PUSH ×2 (06:28→16:40)
[2024-04-17] MEDS: BUDESONIDE RESPULE NEB 0.5 MG/2 ML AMP INHALATION ×2 (08:47→20:54)
[2024-04-17] MEDS: ASPIRIN 81 MG ENTERIC TABLET PO (08:53)
[2024-04-17] MEDS: METOPROLOL TARTRATE 50 MG TAB PO (08:53)
[2024-04-17] MEDS: guaiFENesin 12 HR 600 MG TABCR PO ×2 (08:53→22:12)
[2024-04-17] MEDS: FOLIC ACID 1 MG TABLET PO (08:54)
[2024-04-17] MEDS: CYANOCOBALAMIN 1,000 MCG TABLET 1000 MCG PO (08:54)
[2024-04-17] MEDS: LORATADINE 10 MG TABLET PO (08:54)
[2024-04-17] MEDS: PANTOPRAZOLE 40 MG TABLET PO ×2 (08:54→16:44)
[2024-04-17] MEDS: FERROUS SULFATE 325 MG TABLET DR BY MOUTH (08:54)
[2024-04-17] MEDS: MONTELUKAST SODIUM 10 MG TABLET PO (08:54)
[2024-04-17] MEDS: predniSONE 20 MG TABLET 40 MG PO (08:54)
--- NOTE | 2024-04-17 10:10 | P.PNIM_ITS ---
Progress Note: A&P Assessment and Plan (1) SIRS (systemic inflammatory response syndrome): Code(s): R65.10 - Systemic inflammatory response syndrome (SIRS) of non-infectious origin without acute organ dysfunction Status: Acute (2) Pneumonia: Qualifiers: Laterality: bilateral Lung location: upper lobe of lung Pneumonia type: due to unspecified organism Qualified Code(s): J18.9 - Pneumonia, unspecified organism Code(s): J18.9 - Pneumonia, unspecified organism Status: Acute (3) Chest pain: Qualifiers: Chest pain type: unspecified Qualified Code(s): R07.9 - Chest pain, unspecified Code(s): R07.9 - Chest pain, unspecified Status: Acute (4) COPD (chronic obstructive pulmonary disease): Qualifiers: COPD type: unspecified COPD Qualified Code(s): J44.9 - Chronic obstructive pulmonary disease, unspecified Code(s): J44.9 - Chronic obstructive pulmonary disease, unspecified Status: Chronic (5) Anemia: Qualifiers: Anemia type: unspecified type Qualified Code(s): D64.9 - Anemia, unspecified Code(s): D64.9 - Anemia, unspecified Status: Acute (6) Small cell lung cancer: Onset Date: 02/2024 Qualifiers: Laterality: right Code(s): C34.90 - Malignant neoplasm of unspecified part of unspecified bronchus or lung Status: Acute (7) Chronic kidney disease: Qualifiers: Chronic kidney disease stage: stage 2 (mild) Qualified Code(s): N18.2 - Chronic kidney disease, stage 2 (mild) Code(s): N18.9 - Chronic kidney disease, unspecified Status: Acute (8) HTN (hypertension): Qualifiers: Hypertension type: unspecified Qualified Code(s): I10 - Essential (primary) hypertension Code(s): I10 - Essential (primary) hypertension Status: Acute (9) Sleep apnea: Qualifiers: Sleep apnea type: unspecified type Qualified Code(s): G47.30 - Sleep apnea, unspecified Code(s): G47.30 - Sleep apnea, unspecified Status: Acute Plan 73 y/o M presents here with chest pain and shortness of breath with PMH of Asbestos exposure, BPH, CKD, COPD, hep C, PE, HTN, sleep apnea, and small cell lung cancer currently in treatment. The patient presents here from home for further evaluation of shortness of breath, chest pain, and rapid heart rate. Patient has history of small cell lung cancer for which he is undergoing treatment currently. Last radiation treatment on Tuesday, 04/13. during this treatment was noted that he had an elevated heart rate, fever, and his oxygen level was mildly low. He reports post treatment he developed the chest pain, SOB, and tachycardia.. Chest pain described as right sided, stabbing, radiating into his upper back and right shoulder, intermittent, aggravated by cough, and alleviated by resting. Chest pain worse is not worse with palpation, pain better with splinting with cough. Per Radiation/Oncology note on same day imaging showed possible right upper lobe infiltrate. Plan for trial of supportive care for a suspected upper respiratory infection including a decongestant and cough suppressant. If no improvement with supportive care, Sepsis - meets SIRS criteria: HR, RR - lactic acid: 2.1 -> 1.2 - lactic elevated, procalcitonin added - 30 mL/kg = 2700, given 1L bolus. Receiving fluids via antibiotics and blood transfusion. Tolerates well, will add maintenance fluids x1 L. Monitor I&Os. - suspected source: pneumonia - started on Levaquin and Vancomycin - blood cultures drawn on 04/15, follow-up - UA : Microscopic hematuria, no pyuria - CXR: a couple new wedge-shaped airspace opacities at the right midlung zone which could represent pneumonia or pulmonary infarcts in the appropriate clinical setting - Chest CTA No pulmonary embolus detected Severe bullous emphysema, bilateral scarring Mildly diminished size of right upper lobe paramediastinal mass density Prominent increased infiltrate in the right upper lobe, small new focal consolidation in the left upper lobe Bibasilar atelectasis monitor O2 levels, heart rate, and hemodynamic stability. Resolved Multifocal pneumonia Pneumonia: Qualifiers: Laterality: bilateral Lung location: upper lobe of lung Pneumonia type: due to unspecified organism Qualified Code(s): J18.9 - Pneumonia, unspecified organism Code(s): J18.9 - Pneumonia, unspecified organism Status: Acute Assessment and Plan: - imaging showing bilateral upper lobe pneumonia - risk factors and complicating factors: lung cancer, COPD, immunocompromised - started on Vancomycin and Levaquin on 04/15 - MRSA PCR and sputum culture ordered - Viral PCR negative Patient has pneumonia possible superimposed pneumonitis due to radiation therapy consult Dr. Mckay for evaluation and treatent Chest pain: Qualifiers: Chest pain type: unspecified Qualified Code(s): R07.9 - Chest pain, unspecified Code(s): R07.9 - Chest pain, unspecified Status: Acute Assessment and Plan: - EKG, initial: sinus tachycardia, rate 134, minimal Q-waves in inferior /lateral leads. When compared to EKG done on 03/20/24, heart rate has increased. - imaging showing pneumonia - Troponin: <0.012 x3 Possible pleural chest pain, the pain is related with cough and deep breath - suspect chest pain is secondary to pneumonia, radiation, and demand due to tachycardia - telemetry monitoring CHF? Elevated BNP 340, baseline BNP 33 AUGUST 29, 2023 Order echocardiogram COPD (chronic obstructive pulmonary disease): Qualifiers: COPD type: unspecified COPD Qualified Code(s): J44.9 - Chronic obstructive pulmonary disease, unspecified Code(s): J44.9 - Chronic obstructive pulmonary disease, unspecified Status: Chronic Assessment and Plan: - initiate scheduled nebs and steroids - continue home inhalers Anemia: Qualifiers: Anemia type: unspecified type Qualified Code(s): D64.9 - Anemia, unspecified Code(s): D64.9 - Anemia, unspecified Status: Acute Assessment and Plan: - Hgb 7, previously 9.1 on 04/02/2024. Denying bleeding. - transfuse 1u of PRBC given prominent tachycardia despite fluid administration - transfuse if less than 7 - suspect anemia is multifactorial: oncology treatment, Patient is on chemotherapy radiation therapy Follow hemoglobin, transfuse p.r.n. Consult heme oncologist for evaluation treatment PRISCILLA/CKD, Elevated BUN creatinine above baseline Creatinine 1.8 on arrival, baseline creatinine 1.2 March 28, 2024 Possible due to poor intake Follow-up urinalysis : No sign of infection Start gentle normal saline IV Creatinine 1.3 Small cell lung cancer: Onset Date: 02/2024 Qualifiers: Laterality: right Lung location: upper lobe of lung Qualified Code(s): C34.11 - Malignant neoplasm of upper lobe, right bronchus or lung Code(s): C34.90 - Malignant neoplasm of unspecified part of unspecified bronchus or lung Status: Acute Assessment and Plan: Lung cancer Patient is on chemotherapy and radiation therapy Last radiation therapy was April 13 consult chemo oncologist for evaluation treatment Common bile duct obstruction Bile duct drainage was placed in [facility], [place], operated by [facility] in January 2023 No obvious obstruction Patient will follow with GI in [facility] HTN (hypertension): Qualifiers: Hypertension type: unspecified Qualified Code(s): I10 - Essential (primary) hypertension Code(s): I10 - Essential (primary) hypertension Status: Acute Assessment and Plan: - chronic, currently 100/60. Soft at arrival. - home medications: hold metoprolol and amlodipine - monitor Sleep apnea: Qualifiers: Sleep apnea type: unspecified type Qualified Code(s): G47.30 - Sleep apnea, unspecified Code(s): G47.30 - Sleep apnea, unspecified Status: Acute Assessment and Plan: - does not tolerate CPAP Plan Diet: heart healthy GI Prophylaxis: not currently indicated DVT Prophylaxis: SCDs Lines: peripheral Code Status: DNR Patient condition is improving, transfer patient to medical floor. Consult PT OT lawn care specialist for evaluation and assisting placement Subjective Date/time seen: 04/17/24 10:10 Interval history: I saw exam patient today, patient feels better today, dyspnea is improving, still has cough with scant phlegm. Patient denies nausea vomiting diarrhea. Labs reviewed, blood pressure stable on the lower side Exam Narrative: GENERAL: Ill-appearing in no acute distress. Well-nourished. - EYES: EOMI. Anicteric. - HENT: Moist mucous membranes. - LUNGS: Coarse breath sound bilaterall y bilaterally, - CARDIOVASCULAR: Regular rate and rhyth m. No murmur. No JVD. Tachycardia - ABDOMEN: Soft, non-tender and non-dist ended. No palpable masses. Back- drainage tube in-situ in the right upper quadrant - EXTREMITIES: No edema. Peripheral puls es 2+. Non-tender. - NEUROLOGIC: No focal neurological defi cits. CN II-XII grossly intact. - PSYCHIATRIC: Awake, Alert and oriented x 3. Appropriate mood and affect. - SKIN: No rashes or lesions. Warm. - LYMPH: No cervical lymphadenopathy. Objective Data Vital Signs Vital Signs: Vital Signs - 24 hr 04/16/24 10:37 04/16/24 10:38 04/16/24 12:00 Temperature Pulse Rate 120 H 119 H 106 H Respiratory Rate Blood Pressure 119/60 Pulse Oximetry Oxygen Delivery Oxygen Flow Rate Fraction of Inspired Oxygen 04/16/24 12:00 04/16/24 12:00 04/16/24 13:32 Temperature 99 F Pulse Rate 106 H 93 Respiratory Rate 24 H 24 H Blood Pressure 106/60 Pulse Oximetry 93 97 99 Oxygen Delivery Nasal Cannula Nasal Cannula Oxygen Flow Rate 4 4 Fraction of Inspired Oxygen 36 04/16/24 13:32 04/16/24 13:40 04/16/24 14:00 Temperature Pulse Rate 104 H 105 H 106 H Respiratory Rate 20 20 Blood Pressure Pulse Oximetry Oxygen Delivery Oxygen Flow Rate Fraction of Inspired Oxygen 04/16/24 16:00 04/16/24 16:00 04/16/24 16:00 Temperature 98.4 F Pulse Rate 105 H 105 H 105 H Respiratory Rate 24 H 24 H Blood Pressure 125/70 Pulse Oximetry 98 98 Oxygen Delivery Nasal Cannula Oxygen Flow Rate 4 Fraction of Inspired Oxygen 04/16/24 18:00 04/16/24 20:12 04/16/24 20:29 Temperature 97.8 F Pulse Rate 112 H 103 H Respiratory Rate 24 H Blood Pressure 112/58 L Pulse Oximetry 98 98 Oxygen Delivery Nasal Cannula Oxygen Flow Rate 4 Fraction of Inspired Oxygen 04/16/24 20:29 04/16/24 20:48 04/16/24 20:49 Temperature Pulse Rate 107 H 104 H 107 H Respiratory Rate 20 20 Blood Pressure Pulse Oximetry Oxygen Delivery Oxygen Flow Rate Fraction of Inspired Oxygen 04/16/24 20:00 04/16/24 20:00 04/16/24 22:00 Temperature Pulse Rate 105 H 108 H Respiratory Rate Blood Pressure Pulse Oximetry 98 Oxygen Delivery Nasal Cannula Oxygen Flow Rate 4 Fraction of Inspired Oxygen 04/16/24 23:41 04/17/24 00:00 04/17/24 00:00 Temperature 97.7 F Pulse Rate 96 91 Respiratory Rate 24 H Blood Pressure 105/52 L Pulse Oximetry 98 98 Oxygen Delivery Nasal Cannula Oxygen Flow Rate 4 Fraction of Inspired Oxygen 04/17/24 01:10 04/17/24 01:15 04/17/24 02:00 Temperature Pulse Rate 104 H 89 106 H Respiratory Rate 20 20 Blood Pressure Pulse Oximetry Oxygen Delivery Oxygen Flow Rate Fraction of Inspired Oxygen 04/17/24 04:08 04/17/24 04:00 04/17/24 04:00 Temperature 97.7 F Pulse Rate 97 99 Respiratory Rate 24 H Blood Pressure 112/60 Pulse Oximetry 98 98 Oxygen Delivery Nasal Cannula Oxygen Flow Rate 3 Fraction of Inspired Oxygen 04/17/24 06:00 04/17/24 07:39 04/17/24 08:47 Temperature 98.2 F Pulse Rate 99 111 H Respiratory Rate 24 H Blood Pressure 132/64 Pulse Oximetry 96 99 Oxygen Delivery Nasal Cannula Oxygen Flow Rate 3 Fraction of Inspired Oxygen 04/17/24 08:47 04/17/24 09:02 04/17/24 08:53 Temperature Pulse Rate 111 H 119 H 111 H Respiratory Rate 20 20 Blood Pressure Pulse Oximetry Oxygen Delivery Oxygen Flow Rate Fraction of Inspired Oxygen Intake/Output Intake/Output: Intake & Output 04/15/24 04/15/24 04/16/24 04/17/24 00:59 23:59 23:59 23:59 Intake Total 2525 360 Output Total 3390 300 Balance -865 60 Meds/Results Medications: Active Medications Generic Name Dose Route Start Last Admin Trade Name Freq PRN Reason Stop Dose Admin Acetaminophen 650 mg 04/15/24 16:47 04/15/24 18:55 Acetaminophen 325 Mg Tablet PO 650 mg Q6H PRN Administration Mild Pain (1-3) or Fever Albuterol 1 - 2 puff 04/15/24 21:45 Albuterol Sulfate (*Sp) Aerosol 1 Puff INHALATION Q4H PRN Shortness Of Breath Albuterol/Ipratropium 3 ml 04/15/24 20:00 04/17/24 08:47 Ipratropium 0.5 Mg/Albuterol Sulfate 2.5 Mg Ampul.Neb 3 Ml INHALATION 3 ml Q6HRT [facility] Administration Ascorbic Acid 500 mg 04/16/24 09:00 Ascorbic Acid 500 Mg Tablet PO QAM [facility] Aspirin 81 mg 04/16/24 09:00 04/17/24 08:53 Aspirin 81 Mg Enteric Tablet PO 81 mg QAM [facility] Administration Baclofen 10 mg 04/15/24 21:41 Baclofen 10 Mg Tablet PO TID PRN Hiccups Benzocaine 1 lozenge 04/15/24 16:46 Benzocaine/Menthol (*Bkc) 18 Ea Lozenge PO PRN PRN Sore Throat Benzonatate 100 mg 04/15/24 16:46 04/15/24 18:56 Benzonatate 100 Mg Capsule PO 100 mg TID PRN Administration Cough Budesonide 0.5 mg 04/16/24 08:00 04/17/24 08:47 Budesonide Respule Neb 0.5 Mg/2 Ml Amp INHALATION 0.5 mg Q12HRT [facility] Administration Cyanocobalamin 1,000 mcg 04/16/24 09:00 04/17/24 08:54 Cyanocobalamin 1,000 Mcg Tablet PO 1,000 mcg QAM [facility] Administration Doxazosin Mesylate 8 mg 04/15/24 21:55 04/16/24 20:49 Doxazosin Mesylate 4 Mg Tablet PO 8 mg HS [facility] Administration Ergocalciferol 50,000 units 04/19/24 09:00 Ergocalciferol 50,000 Units Capsule PO Th@0900 [facility] Ferrous Sulfate 325 mg 04/16/24 09:00 04/17/24 08:54 Ferrous Sulfate [address] BY MOUTH 325 mg DAILY [facility] Administration Fluticasone Propionate 1 spray 04/15/24 21:41 Fluticasone Propionate 0.05% Na Spr 16 Gm Btl (*Bkc) NASAL DAILY PRN Congestion Folic Acid 1 mg 04/16/24 09:00 04/17/24 08:54 Folic Acid 1 Mg Tablet PO 1 mg QAM [facility] Administration Guaifenesin 600 mg 04/15/24 21:00 04/17/24 08:53 Guaifenesin 12 Hr 600 Mg Tabcr PO 600 mg Q12HR [facility] Administration Heparin Sodium (Porcine) 500 units 04/16/24 06:55 Heparin Sodium Lock Flush 500 Units/5 Ml Syringe IV PUSH PRN PRN see comments below Levofloxacin/Dextrose 750 mg in 150 mls @ 100 mls/hr 04/17/24 17:00 Levaquin 750 Mg/D5w 150 Ml IVPB Q48H [facility] Loratadine 10 mg 04/16/24 09:00 04/17/24 08:54 Loratadine 10 Mg Tablet PO 10 mg QAM [facility] Administration Methocarbamol 500 mg 04/15/24 21:41 Methocarbamol 500 Mg Tablet PO TID PRN back spasms Metoprolol Tartrate 50 mg 04/16/24 10:05 04/17/24 08:53 Metoprolol Tartrate 50 Mg Tab PO 50 mg DAILY [facility] Administration Metoprolol Tartrate 25 mg 04/16/24 21:00 04/16/24 20:49 Metoprolol Tartrate 25 Mg Tablet PO 25 mg HS [facility] Administration Montelukast Sodium 10 mg 04/16/24 09:00 04/17/24 08:54 Montelukast Sodium 10 Mg Tablet PO 10 mg QAM [facility] Administration Pantoprazole Sodium 40 mg 04/16/24 09:00 04/17/24 08:54 Pantoprazole 40 Mg Tablet PO 40 mg BID [facility] Administration Perflutren Lipid Microsphere 0 ml 04/16/24 09:38 Perflutren Lipid Microspheres 1.5 Ml Vial Diluted To 10 Ml Total Volume IV PUSH 04/19/24 09:38 ONCE PRN adequate visualization Protocol Prednisone 40 mg 04/16/24 08:00 04/17/24 08:54 Prednisone 20 Mg Tablet PO 04/21/24 07:59 40 mg DAILY@0800 [facility] Administration Roflumilast 500 mcg 04/15/24 21:55 04/16/24 20:49 Roflumilast 500 Mcg Tablet PO 500 mcg HS [facility] Administration Sodium Chloride 10 ml 04/16/24 14:00 04/17/24 06:28 Central Line Flush IV PUSH 10 ml Q8HR [facility] Administration Sodium Chloride 10 ml 04/16/24 06:55 Central Line Flush IV PUSH PRN PRN before/after int. infusion Sodium Chloride 20 ml 04/16/24 06:55 Central Line Flush IV PUSH PRN PRN after blood draws Radiology Results: ITS Impressions Chest CTA 04/15/24 14:27 IMPRESSION: No pulmonary embolus detected Severe bullous emphysema, bilateral scarring Mildly diminished size of right upper lobe paramediastinal mass density Prominent increased infiltrate in the right upper lobe, small new focal consolidation in the left upper lobe Bibasilar atelectasis Chest X-Ray 04/15/24 18:42 IMPRESSION: Right Port-A-Cath catheter tip overlies superior vena cava Bilateral infiltrates and scarring Severe bullous emphysema Labs Labs: Laboratory Results - last 24 hr 04/16/24 16:13 Urine Color Yellow Urine Appearance Cloudy H Urine pH 5.5 Ur Specific Leon 1.023 Urine Protein 2+ H Urine Glucose (UA) Negative Urine Ketones Negative Ur Blood (Man) 2+ H Urine Nitrate Negative Urine Bilirubin Negative Urine Urobilinogen 1.0 Ur Leukocyte Esterase Trace H Urine RBC 11-20 H Urine WBC 0-5 Ur Squamous Epith Cells Occasional Urine Bacteria None seen Urine Casts 0-2
[2024-04-17] MEDS: levoFLOXacin 750 MG/D5W 150 ML 750 MG/150 ML BAG 100 MG IVPB (16:43)
[2024-04-17] MEDS: METOPROLOL TARTRATE 25 MG TABLET PO (22:11)
[2024-04-17] MEDS: ROFLUMILAST 500 MCG TABLET PO (22:12)
[2024-04-17] MEDS: DOXAZOSIN MESYLATE 4 MG TABLET 8 MG PO (22:12)
[2024-04-18] VITALS (10 sets, daily range): BP systolic 103–123; BP diastolic 65–81; PULSE 71–125; RESP 16–20; TEMP 36.5–37.1; O2SAT 92–99
[2024-04-18] MEDS: IPRATROPIUM 0.5 MG/ALBUTEROL SULFATE 2.5 MG AMPUL.NEB 3 ML INHALATION ×3 (02:27→13:50)
[2024-04-18] MEDS: BUDESONIDE RESPULE NEB 0.5 MG/2 ML AMP INHALATION (07:52)
[2024-04-18] MEDS: MONTELUKAST SODIUM 10 MG TABLET PO (09:14)
[2024-04-18] MEDS: METOPROLOL TARTRATE 50 MG TAB PO (09:14)
[2024-04-18] MEDS: LORATADINE 10 MG TABLET PO (09:14)
[2024-04-18] MEDS: CYANOCOBALAMIN 1,000 MCG TABLET 1000 MCG PO (09:14)
[2024-04-18] MEDS: PANTOPRAZOLE 40 MG TABLET PO (09:14)
[2024-04-18] MEDS: predniSONE 20 MG TABLET 40 MG PO (09:14)
[2024-04-18] MEDS: ASPIRIN 81 MG ENTERIC TABLET PO (09:14)
[2024-04-18] MEDS: BENZONATATE 100 MG CAPSULE PO (09:15)
[2024-04-18] MEDS: BACLOFEN 10 MG TABLET PO (09:15)
[2024-04-18] MEDS: FERROUS SULFATE 325 MG TABLET DR BY MOUTH (09:15)
[2024-04-18] MEDS: FOLIC ACID 1 MG TABLET PO (09:15)
[2024-04-18] MEDS: methocarbamoL 500 MG TABLET PO (09:15)
[2024-04-18] MEDS: guaiFENesin 12 HR 600 MG TABCR PO (09:15)
--- NOTE | 2024-04-18 10:07 | PM.IMPN ---
Progress Note: A&P Assessment and Plan (1) SIRS (systemic inflammatory response syndrome): Code(s): R65.10 - Systemic inflammatory response syndrome (SIRS) of non-infectious origin without acute organ dysfunction Status: Acute (2) Pneumonia: Qualifiers: Laterality: bilateral Lung location: upper lobe of lung Pneumonia type: due to unspecified organism Qualified Code(s): J18.9 - Pneumonia, unspecified organism Code(s): J18.9 - Pneumonia, unspecified organism Status: Acute (3) Chest pain: Qualifiers: Chest pain type: unspecified Qualified Code(s): R07.9 - Chest pain, unspecified Code(s): R07.9 - Chest pain, unspecified Status: Acute (4) COPD (chronic obstructive pulmonary disease): Qualifiers: COPD type: unspecified COPD Qualified Code(s): J44.9 - Chronic obstructive pulmonary disease, unspecified Code(s): J44.9 - Chronic obstructive pulmonary disease, unspecified Status: Chronic (5) Anemia: Qualifiers: Anemia type: unspecified type Qualified Code(s): D64.9 - Anemia, unspecified Code(s): D64.9 - Anemia, unspecified Status: Acute (6) Small cell lung cancer: Onset Date: 02/2024 Qualifiers: Laterality: right Code(s): C34.90 - Malignant neoplasm of unspecified part of unspecified bronchus or lung Status: Acute (7) Chronic kidney disease: Qualifiers: Chronic kidney disease stage: stage 2 (mild) Qualified Code(s): N18.2 - Chronic kidney disease, stage 2 (mild) Code(s): N18.9 - Chronic kidney disease, unspecified Status: Acute (8) HTN (hypertension): Qualifiers: Hypertension type: unspecified Qualified Code(s): I10 - Essential (primary) hypertension Code(s): I10 - Essential (primary) hypertension Status: Acute (9) Sleep apnea: Qualifiers: Sleep apnea type: unspecified type Qualified Code(s): G47.30 - Sleep apnea, unspecified Code(s): G47.30 - Sleep apnea, unspecified Status: Acute Plan 73 y/o M presents here with chest pain and shortness of breath with PMH of Asbestos exposure, BPH, CKD, COPD, hep C, PE, HTN, sleep apnea, and small cell lung cancer currently in treatment. The patient presents here from home for further evaluation of shortness of breath, chest pain, and rapid heart rate. Patient has history of small cell lung cancer for which he is undergoing treatment currently. Last radiation treatment on Tuesday, 04/13. during this treatment was noted that he had an elevated heart rate, fever, and his oxygen level was mildly low. He reports post treatment he developed the chest pain, SOB, and tachycardia.. Chest pain described as right sided, stabbing, radiating into his upper back and right shoulder, intermittent, aggravated by cough, and alleviated by resting. Chest pain worse is not worse with palpation, pain better with splinting with cough. Per Radiation/Oncology note on same day imaging showed possible right upper lobe infiltrate. Plan for trial of supportive care for a suspected upper respiratory infection including a decongestant and cough suppressant. If no improvement with supportive care, Sepsis - meets SIRS criteria: HR, RR - lactic acid: 2.1 -> 1.2 - lactic elevated, procalcitonin added - 30 mL/kg = 2700, given 1L bolus. Receiving fluids via antibiotics and blood transfusion. Tolerates well, will add maintenance fluids x1 L. Monitor I&Os. - suspected source: pneumonia - started on Levaquin and Vancomycin - blood cultures drawn on 04/15, follow-up - UA : Microscopic hematuria, no pyuria - CXR: a couple new wedge-shaped airspace opacities at the right midlung zone which could represent pneumonia or pulmonary infarcts in the appropriate clinical setting - Chest CTA No pulmonary embolus detected Severe bullous emphysema, bilateral scarring Mildly diminished size of right upper lobe paramediastinal mass density Prominent increased infiltrate in the right upper lobe, small new focal consolidation in the left upper lobe Bibasilar atelectasis monitor O2 levels, heart rate, and hemodynamic stability. Resolved Multifocal pneumonia Pneumonia: Qualifiers: Laterality: bilateral Lung location: upper lobe of lung Pneumonia type: due to unspecified organism Qualified Code(s): J18.9 - Pneumonia, unspecified organism Code(s): J18.9 - Pneumonia, unspecified organism Status: Acute Assessment and Plan: - imaging showing bilateral upper lobe pneumonia - risk factors and complicating factors: lung cancer, COPD, immunocompromised - started on Vancomycin and Levaquin on 04/15 - MRSA PCR and sputum culture ordered - Viral PCR negative Patient has pneumonia possible superimposed pneumonitis due to radiation therapy consult Dr. Mckay for evaluation and treatment -continue to monitor resp status, breathing treatment- imporoving Chest pain: Qualifiers: Chest pain type: unspecified Qualified Code(s): R07.9 - Chest pain, unspecified Code(s): R07.9 - Chest pain, unspecified Status: Acute Assessment and Plan: - EKG, initial: sinus tachycardia, rate 134, minimal Q-waves in inferior /lateral leads. When compared to EKG done on 03/20/24, heart rate has increased. - imaging showing pneumonia - Troponin: <0.012 x3 Possible pleural chest pain, the pain is related with cough and deep breath - suspect chest pain is secondary to pneumonia, radiation, and demand due to tachycardia - telemetry monitoring CHF? Elevated BNP 340, baseline BNP 33 AUGUST 29, 2023 echocardiogram monitor i/o COPD (chronic obstructive pulmonary disease): Qualifiers: COPD type: unspecified COPD Qualified Code(s): J44.9 - Chronic obstructive pulmonary disease, unspecified Code(s): J44.9 - Chronic obstructive pulmonary disease, unspecified Status: Chronic Assessment and Plan: - initiate scheduled nebs and steroids - continue home inhalers Anemia: Qualifiers: Anemia type: unspecified type Qualified Code(s): D64.9 - Anemia, unspecified Code(s): D64.9 - Anemia, unspecified Status: Acute Assessment and Plan: - Hgb 7, previously 9.1 on 04/02/2024. Denying bleeding. - transfuse 1u of PRBC given prominent tachycardia despite fluid administration - transfuse if less than 7 - suspect anemia is multifactorial: oncology treatment, Patient is on chemotherapy radiation therapy Follow hemoglobin, transfuse p.r.n. Consult heme oncologist for evaluation treatment PRISCILLA/CKD, Elevated BUN creatinine above baseline Creatinine 1.8 on arrival, baseline creatinine 1.2 March 28, 2024 Possible due to poor intake Follow-up urinalysis : No sign of infection Start gentle normal saline IV Creatinine 1.3 Small cell lung cancer: Onset Date: 02/2024 Qualifiers: Laterality: right Lung location: upper lobe of lung Qualified Code(s): C34.11 - Malignant neoplasm of upper lobe, right bronchus or lung Code(s): C34.90 - Malignant neoplasm of unspecified part of unspecified bronchus or lung Status: Acute Assessment and Plan: Lung cancer Patient is on chemotherapy and radiation therapy Last radiation therapy was April 13 consult chemo oncologist for evaluation treatment Common bile duct obstruction Bile duct drainage was placed in [facility] in January 2023 No obvious obstruction Patient will follow with GI in [facility] HTN (hypertension): Qualifiers: Hypertension type: unspecified Qualified Code(s): I10 - Essential (primary) hypertension Code(s): I10 - Essential (primary) hypertension Status: Acute Assessment and Plan: - chronic, currently 100/60. Soft at arrival. - home medications: hold metoprolol and amlodipine - monitor-stable Sleep apnea: Qualifiers: Sleep apnea type: unspecified type Qualified Code(s): G47.30 - Sleep apnea, unspecified Code(s): G47.30 - Sleep apnea, unspecified Status: Acute Assessment and Plan: - does not tolerate CPAP Plan Diet: heart healthy GI Prophylaxis: not currently indicated DVT Prophylaxis: SCDs Lines: peripheral Code Status: DNR Time Spent With Patient Time with patient: Greater than 35 minutes Subjective Date/time seen: 04/18/24 10:07 Interval history: Pt is seen and examined. He feels better today, dyspnea is improving a little, still has cough with some phlegm-able to cough it up. Denies nausea vomiting diarrhea. Labs reviewed, blood pressure stable. reports that breathing treatments are helpful. Review of Systems Constitutional: Constitutional: Denies chills Cardiovascular: Cardiovascular: Denies chest pain and Denies diaphoresis Respiratory: Respiratory: Reports chest congestion and Reports cough Gastrointestinal: Gastrointestinal: Denies abdominal pain Exam Narrative: GENERAL: n no acute distress. Well-nourished. - EYES: EOMI. Anicteric. - HENT: Moist mucous membranes. - LUNGS: Coarse breath sound bilaterally bilaterally, - CARDIOVASCULAR: Regular rate and rhythm. No murmur. No JVD. Tachycardia - ABDOMEN: Soft, non-tender and non-distended. No palpable masses. Back-drainage tube in-situ in the right upper quadrant - EXTREMITIES: No edema. Peripheral pulses 2+. Non-tender. - NEUROLOGIC: No focal neurological deficits. CN II-XII grossly intact. - PSYCHIATRIC: Awake, Alert and oriented x 3. Appropriate mood and affect. - SKIN: No rashes or lesions. Warm. - LYMPH: No cervical lymphadenopathy. Const: General: comfortable and no acute distress Other: , male, mildly ill-appearing HENMT: Face/Nose/Sinus: Normal nares present Mouth: Yes moist mucous membranes Other: NC in place Eyes: General: appearance normal, both eyes and all related structures Sclera: sclerae normal Pupils: Equal, round and reactive pupils present EOM: EOMs intact bilaterally Chest: Other: Port to right chest, accessed Resp: Other: Mild tachypnea without accessory muscle use. Crackles in the right lower lobe. No wheezing. Cardio: Rate: tachycardic (110-115) Rhythm: regular rhythm Other: Occasional ectopy, no murmur or rub. GI: Other: Abdomen rounded, soft, nontender. Normoactive bowel sounds in all quadrants. Skin: General skin exam: normal color and no rashes or lesions noted Wounds: no wounds Neuro: Cranial nerves: Yes Equal, round and reactive pupils present Speech: normal speech Motor exam (neuro): 5/5 motor strength present throughout Sensory Exam: normal sensation Other: A&O x4 Extrem: General: normal to inspection Psych: Mental Status: mental status grossly normal Affect: normal affect Other: Good insight and judgment, pleasant Objective Data Vital Signs Vital Signs: Vital Signs - 24 hr 04/17/24 11:35 04/17/24 11:35 04/17/24 11:15 Temperature 98 F Pulse Rate 119 H 114 H 116 H Respiratory Rate 20 20 Blood Pressure 116/65 Pulse Oximetry 99 98 Oxygen Delivery Nasal Cannula Oxygen Flow Rate 3 Fraction of Inspired Oxygen 36 04/17/24 13:36 04/17/24 13:47 04/17/24 15:21 Temperature 98.2 F Pulse Rate 98 102 H 95 Respiratory Rate 20 20 16 Blood Pressure 105/62 Pulse Oximetry 100 Oxygen Delivery Oxygen Flow Rate Fraction of Inspired Oxygen 04/17/24 17:40 04/17/24 20:54 04/17/24 20:58 Temperature 97.5 F L Pulse Rate 106 H 103 H 103 H Respiratory Rate 16 20 Blood Pressure 121/72 Pulse Oximetry 97 95 Oxygen Delivery Nasal Cannula Oxygen Flow Rate 3 Fraction of Inspired Oxygen 04/17/24 21:14 04/17/24 20:35 04/18/24 00:00 Temperature 98.8 F 98.8 F Pulse Rate 99 101 H 95 Respiratory Rate 20 16 18 Blood Pressure 120/65 118/65 Pulse Oximetry 98 99 Oxygen Delivery Oxygen Flow Rate Fraction of Inspired Oxygen 04/18/24 02:27 04/18/24 02:36 04/17/24 20:00 Temperature Pulse Rate 89 87 Respiratory Rate 20 20 Blood Pressure Pulse Oximetry 99 Oxygen Delivery Nasal Cannula Oxygen Flow Rate 3 Fraction of Inspired Oxygen 04/18/24 04:40 04/18/24 07:55 04/18/24 07:55 Temperature 98.5 F Pulse Rate 105 H 99 99 Respiratory Rate 16 18 Blood Pressure 123/81 Pulse Oximetry 96 94 Oxygen Delivery Nasal Cannula Oxygen Flow Rate 3 Fraction of Inspired Oxygen 04/18/24 09:14 Temperature Pulse Rate 125 H Respiratory Rate Blood Pressure Pulse Oximetry Oxygen Delivery Oxygen Flow Rate Fraction of Inspired Oxygen Intake/Output Intake/Output: Intake & Output 04/15/24 04/16/24 04/17/24 04/18/24 23:59 23:59 23:59 23:59 Intake Total 2525 1260 1050 Output Total 3390 535 300 Balance -865 725 750 Meds/Results Medications: Active Medications Generic Name Dose Route Start Last Admin Trade Name Freq PRN Reason Stop Dose Admin Acetaminophen 650 mg 04/15/24 16:47 04/15/24 18:55 Acetaminophen 325 Mg Tablet PO 650 mg Q6H PRN Administration Mild Pain (1-3) or Fever Albuterol 1 - 2 puff 04/15/24 21:45 Albuterol Sulfate (*Sp) Aerosol 1 Puff INHALATION Q4H PRN Shortness Of Breath Albuterol/Ipratropium 3 ml 04/15/24 20:00 04/18/24 07:53 Ipratropium 0.5 Mg/Albuterol Sulfate 2.5 Mg Ampul.Neb 3 Ml INHALATION 3 ml Q6HRT BALWINDER Administration Ascorbic Acid 500 mg 04/16/24 09:00 Ascorbic Acid 500 Mg Tablet PO QAM BALWINDER Aspirin 81 mg 04/16/24 09:00 04/18/24 09:14 Aspirin 81 Mg Enteric Tablet PO 81 mg QAM BALWINDER Administration Baclofen 10 mg 04/15/24 21:41 04/18/24 09:15 Baclofen 10 Mg Tablet PO 10 mg TID PRN Administration Hiccups Benzocaine 1 lozenge 04/15/24 16:46 Benzocaine/Menthol (*Bkc) 18 Ea Lozenge PO PRN PRN Sore Throat Benzonatate 100 mg 04/15/24 16:46 04/18/24 09:15 Benzonatate 100 Mg Capsule PO 100 mg TID PRN Administration Cough Budesonide 0.5 mg 04/16/24 08:00 04/18/24 07:52 Budesonide Respule Neb 0.5 Mg/2 Ml Amp INHALATION 0.5 mg Q12HRT BALWINDER Administration Cyanocobalamin 1,000 mcg 04/16/24 09:00 04/18/24 09:14 Cyanocobalamin 1,000 Mcg Tablet PO 1,000 mcg QAM [facility] Administration Doxazosin Mesylate 8 mg 04/15/24 21:55 04/17/24 22:12 Doxazosin Mesylate 4 Mg Tablet PO 8 mg HS BALWINDER Administration Ergocalciferol 50,000 units 04/19/24 09:00 Ergocalciferol 50,000 Units Capsule PO Th@0900 [facility] Ferrous Sulfate 325 mg 04/16/24 09:00 04/18/24 09:15 Ferrous Sulfate [address] BY MOUTH 325 mg DAILY [facility] Administration Fluticasone Propionate 1 spray 04/15/24 21:41 Fluticasone Propionate 0.05% Na Spr 16 Gm Btl (*Bkc) NASAL DAILY PRN Congestion Folic Acid 1 mg 04/16/24 09:00 04/18/24 09:15 Folic Acid 1 Mg Tablet PO 1 mg QAM [facility] Administration Guaifenesin 600 mg 04/15/24 21:00 04/18/24 09:15 Guaifenesin 12 Hr 600 Mg Tabcr PO 600 mg Q12HR [facility] Administration Heparin Sodium (Porcine) 500 units 04/16/24 06:55 Heparin Sodium Lock Flush 500 Units/5 Ml Syringe IV PUSH PRN PRN see comments below Levofloxacin/Dextrose 750 mg in 150 mls @ 100 mls/hr 04/17/24 17:00 04/17/24 16:43 Levaquin 750 Mg/D5w 150 Ml IVPB 100 mls/hr Q48H BALWINDER Administration Loratadine 10 mg 04/16/24 09:00 04/18/24 09:14 Loratadine 10 Mg Tablet PO 10 mg QAM [facility] Administration Methocarbamol 500 mg 04/15/24 21:41 04/18/24 09:15 Methocarbamol 500 Mg Tablet PO 500 mg TID PRN Administration back spasms Metoprolol Tartrate 50 mg 04/16/24 10:05 04/18/24 09:14 Metoprolol Tartrate 50 Mg Tab PO 50 mg DAILY BALWINDER Administration Metoprolol Tartrate 25 mg 04/16/24 21:00 04/17/24 22:11 Metoprolol Tartrate 25 Mg Tablet PO 25 mg HS BALWINDER Administration Montelukast Sodium 10 mg 04/16/24 09:00 04/18/24 09:14 Montelukast Sodium 10 Mg Tablet PO 10 mg QAM BALWINDER Administration Pantoprazole Sodium 40 mg 04/16/24 09:00 04/18/24 09:14 Pantoprazole 40 Mg Tablet PO 40 mg BID BALWINDER Administration Perflutren Lipid Microsphere 0 ml 04/16/24 09:38 Perflutren Lipid Microspheres 1.5 Ml Vial Diluted To 10 Ml Total Volume IV PUSH 04/19/24 09:38 ONCE PRN adequate visualization Protocol Prednisone 40 mg 04/16/24 08:00 04/18/24 09:14 Prednisone 20 Mg Tablet PO 04/21/24 07:59 40 mg DAILY@0800 BALWINDER Administration Roflumilast 500 mcg 04/15/24 21:55 04/17/24 22:12 Roflumilast 500 Mcg Tablet PO 500 mcg HS BALWINDER Administration Sodium Chloride 10 ml 04/16/24 14:00 04/18/24 07:50 Central Line Flush IV PUSH Not Given Q8HR BALWINDER Sodium Chloride 10 ml 04/16/24 06:55 Central Line Flush IV PUSH PRN PRN before/after int. infusion Sodium Chloride 20 ml 04/16/24 06:55 Central Line Flush IV PUSH PRN PRN after blood draws Radiology Results: ITS Impressions Chest CTA 04/15/24 14:27 IMPRESSION: No pulmonary embolus detected Severe bullous emphysema, bilateral scarring Mildly diminished size of right upper lobe paramediastinal mass density Prominent increased infiltrate in the right upper lobe, small new focal consolidation in the left upper lobe Bibasilar atelectasis Chest X-Ray 04/15/24 18:42 IMPRESSION: Right Port-A-Cath catheter tip overlies superior vena cava Bilateral infiltrates and scarring Severe bullous emphysema Quality VTE Prophylaxis VTE prophylaxis: mechanical ordered
[2024-04-18] MEDS: CENTRAL LINE FLUSH 10 ML IV PUSH (13:39)
[2024-04-18] MEDS: levoFLOXacin 750 MG TABLET PO (16:55)
--- NOTE | 2024-04-19 07:09 | P.DS_ITS ---
DS: Admitting Diagnosis Discharge Date 04/18/24 Admitting Diagnosis sob DS: Discharge Diagnosis Discharge Diagnosis (1) SIRS (systemic inflammatory response syndrome): Code(s): R65.10 - Systemic inflammatory response syndrome (SIRS) of non-infectious origin without acute organ dysfunction Status: Acute (2) Pneumonia: Qualifiers: Laterality: bilateral Lung location: upper lobe of lung Pneumonia type: due to unspecified organism Qualified Code(s): J18.9 - Pneumonia, unspecified organism Code(s): J18.9 - Pneumonia, unspecified organism Status: Acute (3) Chest pain: Qualifiers: Chest pain type: unspecified Qualified Code(s): R07.9 - Chest pain, unspecified Code(s): R07.9 - Chest pain, unspecified Status: Acute (4) COPD (chronic obstructive pulmonary disease): Qualifiers: COPD type: unspecified COPD Qualified Code(s): J44.9 - Chronic obstructive pulmonary disease, unspecified Code(s): J44.9 - Chronic obstructive pulmonary disease, unspecified Status: Chronic (5) Anemia: Qualifiers: Anemia type: unspecified type Qualified Code(s): D64.9 - Anemia, unspecified Code(s): D64.9 - Anemia, unspecified Status: Acute (6) Small cell lung cancer: Onset Date: 02/2024 Qualifiers: Laterality: right Code(s): C34.90 - Malignant neoplasm of unspecified part of unspecified bronchus or lung Status: Acute (7) Chronic kidney disease: Qualifiers: Chronic kidney disease stage: stage 2 (mild) Qualified Code(s): N18.2 - Chronic kidney disease, stage 2 (mild) Code(s): N18.9 - Chronic kidney disease, unspecified Status: Acute (8) HTN (hypertension): Qualifiers: Hypertension type: unspecified Qualified Code(s): I10 - Essential (primary) hypertension Code(s): I10 - Essential (primary) hypertension Status: Acute (9) Sleep apnea: Qualifiers: Sleep apnea type: unspecified type Qualified Code(s): G47.30 - Sleep apnea, unspecified Code(s): G47.30 - Sleep apnea, unspecified Status: Acute Plan DS: Summary Hospital Course Hospital Course: 73 y/o M presents here with chest pain and shortness of breath with PMH of Asbestos exposure, BPH, CKD, COPD, hep C, PE, HTN, sleep apnea, and small cell lung cancer currently in treatment. The patient presents here from home for further evaluation of shortness of breath, chest pain, and rapid heart rate. Patient has history of small cell lung cancer for which he is undergoing treatment currently. Last radiation treatment on Tuesday, 04/13. during this treatment was noted that he had an elevated heart rate, fever, and his oxygen level was mildly low. He reports post treatment he developed the chest pain, SOB, and tachycardia.. Chest pain described as right sided, stabbing, radiating into his upper back and right shoulder, intermittent, aggravated by cough, and alleviated by resting. Chest pain worse is not worse with palpation, pain better with splinting with cough. Per Radiation/Oncology note on same day imaging showed possible right upper lobe infiltrate. Plan for trial of supportive care for a suspected upper respiratory infection including a decongestant and cough suppressant. If no improvement with supportive care, several problems were addressed: Sepsis - met SIRS criteria: HR, RR - lactic acid: 2.1 -> 1.2 - 30 mL/kg = 2700, given 1L bolus. - suspected source: pneumonia - started on Levaquin and Vancomycin - blood cultures drawn on 04/15- negative - UA : Microscopic hematuria, no pyuria - CXR: a couple new wedge-shaped airspace opacities at the right midlung zone which could represent pneumonia or pulmonary infarcts in the appropriate clinic al setting - Chest CTA No pulmonary embolus detected Severe bullous emphysema, bilateral scarring Mildly diminished size of right upper lobe paramediastinal mass density Prominent increased infiltrate in the right upper lobe, small new focal consolidation in the left upper lobe Bibasilar atelectasis monitor O2 levels, heart rate, and hemodynamic stability. Resolved Multifocal pneumonia Pneumonia: - imaging showing bilateral upper lobe pneumonia - risk factors and complicating factors: lung cancer, COPD, immunocompromised - started on Vancomycin and Levaquin on 04/15 - MRSA PCR and sputum culture ordered - Viral PCR negative Patient has pneumonia possible superimposed pneumonitis due to radiation therapy consulted Dr. Mckay for evaluation and treatment -pulmonology pt was downgraded to PO antibiotics on 04/18- need 5 more days of therapy-total 8 days Chest pain: - EKG, initial: sinus tachycardia, rate 134, minimal Q-waves in inferior /lateral leads. When compared to EKG done on 03/20/24, heart rate has increased. - imaging showing pneumonia - Troponin: <0.012 x3 Possible pleural chest pain, the pain is related with cough and deep breath - suspect chest pain is secondary to pneumonia, radiation, and demand due to tachycardia CHF? Elevated BNP 340, baseline BNP 33 AUGUST 29, 2023 echocardiogram stable- f/o outpt with pcp/card COPD (chronic obstructive pulmonary disease): - initiate scheduled nebs and steroids- last dose 04/18 at 1700- completed - continue home inhalers Anemia: - Hgb 7, previously 9.1 on 04/02/2024. Denying bleeding. - transfuse 1u of PRBC given prominent tachycardia despite fluid administration - transfuse if less than 7 - suspect anemia is multifactorial: oncology treatment, Patient is on chemotherapy radiation therapy Follow hemoglobin, transfuse p.r.n. Consult heme oncologist for evaluation treatment PRISCILLA/CKD, Elevated BUN creatinine above baseline Creatinine 1.8 on arrival, baseline creatinine 1.2 March 28, 2024 Possible due to poor intake Follow-up urinalysis : No sign of infection Start gentle normal saline IV Creatinine 1.3 f/u outpt with pcp for repeat CMP Small cell lung cancer: Lung cancer Patient is on chemotherapy and radiation therapy Last radiation therapy was April 13 consult chemo oncologist for evaluation treatment Common bile duct obstruction Bile duct drainage was placed in [facility] in January 2023 No obvious obstruction Patient will follow with GI in [facility] HTN (hypertension): - chronic, currently 100/60. Soft at arrival. - home medications: hold metoprolol and amlodipine - monitor-stable Sleep apnea: - does not tolerate CPAP Status at Discharge Functional status at discharge: uses cane/walker Overall status at discharge: patient is progressing back to baseline Time Spent with Patient Time attestation: Total time spent providing and/or coordinating discharge services: Time spent: Greater than 30 minutes Exam Narrative: GENERAL: n no acute distress. Well-nourished. - EYES: EOMI. Anicteric. - HENT: Moist mucous membranes. - LUNGS: Coarse breath sound bilaterall y bilaterally, - CARDIOVASCULAR: Regular rate and rhyth m. No murmur. No JVD. Tachycardia - ABDOMEN: Soft, non-tender and non-dist ended. No palpable masses. Back-ann marie inage tube in-situ in the right upper quadrant - EXTREMITIES: No edema. Peripheral puls es 2+. Non-tender. - NEUROLOGIC: No focal neurological defi cits. CN II-XII grossly intact. - PSYCHIATRIC: Awake, Alert and oriented x 3. Appropriate mood and affect. - SKIN: No rashes or lesions. Warm. - LYMPH: No cervical lymphadenopathy. Const: General: comfortable and no acute distress Other: , male, mildly ill-appearing HENMT: Face/Nose/Sinus: Normal nares present Mouth: Yes moist mucous membranes Other: NC in place Eyes: General: appearance normal, both eyes and all related structures Sclera: sclerae normal Pupils: Equal, round and reactive pupils present EOM: EOMs intact bilaterally Chest: Other: Port to right chest, accessed Resp: Other: Mild tachypnea without accessory muscle use. Crackles in the right lower lobe. No wheezing. Cardio: Rate: tachycardic (110-115) Rhythm: regular rhythm Other: Occasional ectopy, no murmur or rub. GI: Other: Abdomen rounded, soft, nontender. Normoactive bowel sounds in all quadrants. Skin: General skin exam: normal color and no rashes or lesions noted Wounds: no wounds Neuro: Cranial nerves: Yes Equal, round and reactive pupils present Speech: normal speech Motor exam (neuro): 5/5 motor strength present throughout Sensory Exam: normal sensation Other: A&O x4 Extrem: General: normal to inspection Psych: Mental Status: mental status grossly normal Affect: normal affect Other: Good insight and judgment, pleasant DS: Data Data Completed and Pending Completed studies during hospitalization: chest xray, chest cta Labs on day of discharge: Preliminary micro results at discharge 04/15/24 19:10 Sputum Culture - Preliminary Sputum 04/15/24 12:13 Blood Culture - Preliminary Blood 04/15/24 12:14 Blood Culture - Preliminary Blood Discharge Plan Discharge Consulting providers: Shayan Brown; Perri Mckay Discharging Clinician: Lucie Garcia Patient Disposition: Home, Self-Care Activity: as tolerated Diet: regular Discharge Instructions: you were admitted for pneumonia- please continue taking your levaquin- you will need 5 more doses. you need to f/u with your PCP/oncologist to repeat your blood work to see if anemia improved/stable Patient Instructions: Antibiotic Form, Pain Management (DC) Stand Alone Forms: General Discharge Information Follow-up/Referrals: Shayan Brown MD [Physician] - 1 Week Perri Mckay MD [Physician] - 2 Weeks Jose Rivera MD [Primary Care Provider] - 1 Week Discharge Medications: New acetaminophen 325 mg Tablet 650 mg PO Q6H PRN (Reason: Mild Pain (1-3) Or Fever) 0RF benzonatate 100 mg Capsule 100 mg PO TID PRN (Reason: Cough) 0RF Chloraseptic Sore Throat 6-10 mg Lozenge 1 brent PO PRN PRN (Reason: Sore Throat) 0RF guaifenesin [Mucus Relief ER] 600 mg Tablet Extended Release 12hr 600 mg PO Q12HR 0RF levofloxacin 750 mg tablet 750 mg PO DAILY Qty: 5 0RF Continued Vitamin C 500 mg 1 tab-cap PO DAILY ferrous sulfate 65 mg 1 tab-cap PO DAILY vitamin G94-pmfhv acid 1,000 mcg 1 tab-cap PO DAILY amlodipine 10 mg tablet 10 mg PO QAM doxazosin 8 mg tablet 8 mg PO HS (DME) Easy Neb Compressor Nebulizer Device See Rx Instructions .ROUTE .MEDSUPPLY Qty: 1 Rx Instructions: As directed fluticasone propionate 50 mcg/actuation spray,suspension 1 spray NASAL DAILY PRN (Reason: Congestion) Rx Instructions: administer into each nostril sildenafil 100 mg tablet 100 mg PO DAILY PRN (Reason: Erectile Dysfunction) Rx Instructions: administer 30 minutes to 4 hours before activity ergocalciferol (vitamin D2) 1,250 mcg (50,000 unit) capsule 1,250 mcg PO WEEKLY Rx Instructions: THURSDAYS omeprazole 40 mg Capsule,Delayed Release(Dr/Ec) 40 mg PO DAILY methocarbamol 500 mg tablet 500 mg PO PRN PRN (Reason: back spasms) roflumilast 500 mcg tablet 500 mcg PO HS metoprolol tartrate 25 mg Tablet 50 mg PO DAILY Qty: 60 0RF baclofen 10 mg tablet 10 mg PO TID PRN (Reason: Hiccups) budesonide 0.25 mg/2 mL suspension for nebulization 0.25 mg inhalation BID metoprolol tartrate 25 mg tablet 25 mg PO HS levocetirizine 5 mg tablet 5 mg PO DAILY albuterol sulfate 2.5 mg /3 mL (0.083 %) solution for nebulization 2.5 mg inhalation Q4-6H PRN (Reason: Shortness Of Breath Or Wheezing) Qty: 1080 1RF montelukast [Singulair] 10 mg tablet 10 mg PO QAM Qty: 90 1RF Yupelri 175 mcg/3 mL solution for nebulization 175 mcg inhalation DAILY 0RF arformoterol 15 mcg/2 mL solution for nebulization See Rx Instructions .ROUTE .COMPLEX Qty: 120 0RF Dose Instruction: USE 2 ML VIA NEBULIZER TWICE DAILY Rx Instructions: USE 2 ML VIA NEBULIZER TWICE DAILY albuterol sulfate 90 mcg/actuation HFA aerosol inhaler See Rx Instructions .ROUTE .COMPLEX Qty: 3 1RF Dose Instruction: INHALE 1 TO 2 PUFFS EVERY 4 TO 6 HOURS NEEDED FOR SHORTNESS OF BREATH OR WHEEZING Rx Instructions: INHALE 1 TO 2 PUFFS EVERY 4 TO 6 HOURS NEEDED FOR SHORTNESS OF BREATH OR WHEEZING Discontinued aspirin 81 mg Tablet 81 mg PO DAILY Date of admission: 04/16/24 16:30 Primary Care Provider: Jose Rivera Admitting Provider: Gerard Robb Attending physician on admission: Prisca Summers Condition: Stable Quality VTE Prophylaxis VTE prophylaxis: mechanical ordered
== END 2024-04-18 17:05 | disposition home or self-care (01) | DRG 194 ==
LOC: ANHED 16:27 → ANHIMU 17:25 → ANH3MEDSUR 04-17 17:22
PROVIDERS: Hospitalist; Student in an Organized Health Care Education/Training Program; Admitting Provider Internal Medicine; Emergency Provider Emergency Medicine; PCP Family Medicine; Visit Provider Nurse Practitioner
DX: J18.9 Pneumonia, unspecified organism (principal); C34.11 Malignant neoplasm of upper lobe, right bronchus or lung; R65.10 Systemic inflammatory response syndrome (SIRS) of non-infectious origin without acute organ dysfunction; J44.0 Chronic obstructive pulmonary disease with (acute) lower respiratory infection; J96.12 Chronic respiratory failure with hypercapnia; I12.9 Hypertensive chronic kidney disease with stage 1 through stage 4 chronic kidney disease, or unspecified chronic kidney disease; N18.2 Chronic kidney disease, stage 2 (mild); D75.A Glucose-6-phosphate dehydrogenase (G6PD) deficiency without anemia; D63.1 Anemia in chronic kidney disease; D64.9 Anemia, unspecified; B18.2 Chronic viral hepatitis C; K21.9 Gastro-esophageal reflux disease without esophagitis; N40.0 Benign prostatic hyperplasia without lower urinary tract symptoms; G47.30 Sleep apnea, unspecified; Z20.822 Contact with and (suspected) exposure to COVID-19; Z77.090 Contact with and (suspected) exposure to asbestos; Z79.82 Long term (current) use of aspirin; Z87.891 Personal history of nicotine dependence; Z99.81 Dependence on supplemental oxygen
CPT/HCPCS: 36415; 36430; 71045; 71046; 71275; 80053; 81001; 83605; 83690; 83735; 84145; 84484; 85025; 85380; 85610; 85730; 86850; 86900; 86901; 86923; 87040; 87070; 87205; 87637; 87641; 93005; 93306; 94640; 94667; 96361; 96365; 96366; 96375; 96376; 99285; A9270; G0378; J1956; J3370; J7030; J7040; J7050; J7512; P9016; Q9967

== ENCOUNTER 2024-05-31 11:07 | Emergency (ER) | payer MEDICARE, MEDICAID, SELFPAY ==
--- NOTE | 2024-05-31 11:24 | ED_ITS ---
HPI - General Adult General Chief complaint: Epistaxis Stated complaint: nosebleed Time Seen by Provider: 05/31/24 11:25 Source: patient, RN notes reviewed and old records reviewed Mode of arrival: ambulatory Limitations: no limitations History of Present Illness HPI narrative: 73-year-old male with a history of lung cancer, hypertension and anemia presents to the [facility] with a nosebleed since 06:30 this morning. On arrival active bleeding from the left near. Clamp placed. Patient recently has had radiation for lung cancer, states that he is supposed to start chemotherapy. Treatments prior to arrival: other (pressure) Related Data Home Medications ?Medication ?Instructions ?Recorded ?Confirmed ?Last Taken ?Type amlodipine 10 mg tablet 10 mg PO QAM 03/07/20 05/21/24 08/30/23 History doxazosin 8 mg tablet 8 mg PO HS 03/07/20 05/21/24 08/29/23 History ergocalciferol (vitamin D2) 1,250 1,250 mcg PO WEEKLY 03/07/20 05/21/24 08/25/23 History mcg (50,000 unit) capsule fluticasone propionate 50 1 spray intranasal DAILY PRN 03/07/20 05/21/24 08/30/23 History mcg/actuation nasal Congestion spray,suspension nebulizer and compressor (Easy Neb #1 ea 03/07/20 05/21/24 Unknown History Compressor Nebulizer) sildenafil 100 mg tablet 100 mg PO DAILY PRN Erectile 03/07/20 05/21/24 Unknown History Dysfunction omeprazole 40 mg capsule,delayed 40 mg PO DAILY 01/28/23 05/21/24 08/30/23 History release methocarbamol 500 mg tablet 500 mg PO PRN PRN back spasms 08/30/23 05/21/24 03/31/23 History roflumilast 500 mcg tablet 500 mcg PO HS copd 08/30/23 05/21/24 08/29/23 History Vitamin C 1 tab-cap PO DAILY 03/30/24 05/21/24 Unknown History ferrous sulfate 1 tab-cap PO DAILY 03/30/24 05/21/24 Unknown History vitamin G98-nbphk acid 1 tab-cap PO DAILY 03/30/24 05/21/24 Unknown History baclofen 10 mg tablet 10 mg PO TID PRN Hiccups 04/15/24 05/21/24 Unknown History budesonide 0.25 mg/2 mL suspension 0.25 mg inhalation BID 04/15/24 05/21/24 Unknown History for nebulization levocetirizine 5 mg tablet 5 mg PO DAILY 04/15/24 05/21/24 Unknown History metoprolol tartrate 25 mg tablet 25 mg PO HS 04/15/24 05/21/24 Unknown History Allergies Allergy/AdvReac Type Severity Reaction Status Date / Time lisinopril Allergy Severe Swelling Verified 05/23/24 11:52 Penicillins Allergy Intermediate Hives / Verified 05/23/24 11:52 Red Face Sulfa (Sulfonamide Allergy Intermediate Hives / Verified 05/23/24 11:52 Antibiotics) Red Face Review of Systems Review of Systems: All systems reviewed & are unremarkable except as noted in HPI and below Constitutional: Constitutional: Reports no additional constitutional complaints ENT: Reports as per HPI and Reports other (nose bleed) Cardiovascular: Cardiovascular: Reports no additional cardiovascular complaints, Denies chest pain and Denies dyspnea Respiratory: Respiratory: Reports no additional respiratory complaints, Denies chest congestion, Denies cough and Denies dyspnea Musculoskeletal: Musculoskeletal: Reports no additional musculoskeletal complaints Integumentary/Breasts: Skin/Breast: Reports system reviewed and no additional complaints, except as docu PMFSH Past Medical History Medical History G6PD deficiency History of biliary stent insertion Former smoker Hypertension Chronic respiratory failure with hypoxia, on home oxygen therapy Chronic obstructive pulmonary disease Benign prostatic hyperplasia Small cell lung cancer (02/2024) Hepatitis C GERD (gastroesophageal reflux disease) Pulmonary emboli (11/2021) Former smoker Asbestos exposure Environmental allergies Sleep apnea Chronic viral hepatitis C Elevated PSA Chronic kidney disease Surgical History Surgical History History of back surgery History of ankle surgery (2015) Family History Family History Father Cancer Pancreatic cancer Mother Asthma Cerebrovascular accident Sibling Diabetes mellitus Hypertension Heart disease Cerebrovascular accident Cancer of colon Other Lung disease Social History Social History Social History: Surrogate medical decision maker: Negin Cotto, spouse. Code status: Full code. Smoking packs per day: 1 Smoking cigarettes per day: 20.0 Years smoked: 50 Smoking pack-years: 50.00 Smoking status: Former smoker Tobacco type: cigarettes Smoking end date: 06/13/17 Alcohol intake: former Drinks per week: 1 Alcohol use details: Social alcohol use in moderation. Substance use: never Substance use type: does not use Do You Feel Safe in your Home?: Yes Lack of Transportation: No Lack of Food: Never True Current Housing: I Have Housing Concerned About Future Housing: No Difficulty Paying Gas/Electric Bills: YES Difficulty Paying for Meds: No Currently Unemployed: No Education: High School Diploma/GED Difficulty w/ Childcare or Family Care: No Living arrangements: alone Occupation/Education: retired Spiritual care concerns: No Comments At the time of my signature, I reviewed and agree with the nursing past medical, surgical, social, and family history. There is no relevant family history pertinent to the patient complaint. Exam Const: General: cooperative, no acute distress, well developed, alert, ill appearing chronically, tired appearing, uncomfortable and well nourished Nutritional Appearance: well nourished Orientation/consciousness: patient oriented x3 Limitations: no limitations HENMT: Head: normal to inspection Face/Nose/Sinus: Normal external nose present, Epistaxis present on the left active bleeding, clots present and source not visualized and face symmetric Mouth: Yes Normal oral and palatal mucosa present, Yes lip normal and Yes tongue normal Eyes: General: appearance normal, both eyes and all related structures Neck: Neck: full ROM Chest: Chest palpation & inspection: normal inspection of the chest Resp: Effort & Inspection: able to speak in complete sentences and other Cardio: Rate: tachycardic Skin: General skin exam: normal color and no rashes or lesions noted Neuro: General: patient oriented x3, gait normal, moves all extremities and no meningeal signs Cognition (Neuro): normal cognition Speech: normal speech Gait exam (Neuro): Normal gait present Extrem: General: normal to inspection, full ROM, capillary refill normal and normal gait Psych: Appearance: grossly normal and well kempt Mental Status: mental status grossly normal Speech and movement: Normal speech and movement present and Clear speech present Affect: normal affect Attitude: cooperative Course Course Level of Care: [facility] Care Visit Vital Signs Vital signs: Vital Signs Temperature 98.9 F 05/31/24 11:25 Pulse Rate 101 H 05/31/24 11:25 Respiratory Rate 16 05/31/24 11:25 Blood Pressure 118/61 05/31/24 11:25 Pulse Oximetry 100 05/31/24 11:25 Oxygen Delivery Room Air 05/31/24 11:25 Temperature 98.9 F 05/31/24 11:25 Pulse Rate 101 H 05/31/24 11:25 Respiratory Rate 16 05/31/24 11:25 Blood Pressure 118/61 05/31/24 11:25 Pulse Oximetry 100 05/31/24 11:25 Oxygen Delivery Room Air 05/31/24 11:25 Reviewed Medical Decision Making MDM Narrative Medical decision making narrative: Patient sitting comfortably in exam room. Nontoxic, vitals stable. Patient in no acute distress Patient presents for significant left nasal nose bleed. Has multiple chronic h ealth history. Recently has done radiation for lung cancer, is supposed to start chemotherapy Concern for low platelet level, anemia sending for higher level of care for additional testing Transfer instructions reviewed with patient, discussed going by EMS or patient driving. Discussed preferred EMS which patient agreed All questions have been answered, and the patient deny any further questions. Some parts of this dictation were generated by voice recognition software and may contain typographical and/or grammatical inaccuracies. Differential Diagnosis Differential Diagnosis: Epistaxis Medical Records Medical records reviewed: Yes I reviewed the external patient's medical records. Vital Signs Vital Signs: Vital Signs Temperature 98.9 F 05/31/24 11:25 Pulse Rate 101 H 05/31/24 11:25 Respiratory Rate 16 05/31/24 11:25 Blood Pressure 118/61 05/31/24 11:25 Pulse Oximetry 100 05/31/24 11:25 Oxygen Delivery Room Air 05/31/24 11:25 Temperature 98.9 F 05/31/24 11:25 Pulse Rate 101 H 05/31/24 11:25 Respiratory Rate 16 05/31/24 11:25 Blood Pressure 118/61 05/31/24 11:25 Pulse Oximetry 100 05/31/24 11:25 Oxygen Delivery Room Air 05/31/24 11:25 Reviewed Lab Data Lab results reviewed: Yes I reviewed the patient's lab results. Labs: Reviewed Critical Care Time Critical Care Time Critical Care Time: No Discharge Plan Discharge Clinical Impression: Epistaxis Patient Disposition: Acute Care Hospital Condition: Guarded Prognosis Instructions: Antibiotic Form Patient Language: Singaporean Prescriptions: No Action Vitamin C 500 mg 1 tab-cap PO DAILY ferrous sulfate 65 mg 1 tab-cap PO DAILY vitamin N22-rkora acid 1,000 mcg 1 tab-cap PO DAILY amlodipine 10 mg tablet 10 mg PO QAM doxazosin 8 mg tablet 8 mg PO HS (DME) Easy Neb Compressor Nebulizer Device See Rx Instructions .ROUTE .MEDSUPPLY Qty: 1 Rx Instructions: As directed fluticasone propionate 50 mcg/actuation spray,suspension 1 spray NASAL DAILY PRN (Reason: Congestion) Rx Instructions: administer into each nostril sildenafil 100 mg tablet 100 mg PO DAILY PRN (Reason: Erectile Dysfunction) Rx Instructions: administer 30 minutes to 4 hours before activity ergocalciferol (vitamin D2) 1,250 mcg (50,000 unit) capsule 1,250 mcg PO WEEKLY Rx Instructions: THURSDAYS omeprazole 40 mg Capsule,Delayed Release(Dr/Ec) 40 mg PO DAILY methocarbamol 500 mg tablet 500 mg PO PRN PRN (Reason: back spasms) roflumilast 500 mcg tablet 500 mcg PO HS metoprolol tartrate 25 mg Tablet 50 mg PO DAILY Qty: 60 0RF baclofen 10 mg tablet 10 mg PO TID PRN (Reason: Hiccups) budesonide 0.25 mg/2 mL suspension for nebulization 0.25 mg inhalation BID metoprolol tartrate 25 mg tablet 25 mg PO HS levocetirizine 5 mg tablet 5 mg PO DAILY acetaminophen 325 mg Tablet 650 mg PO Q6H PRN (Reason: Mild Pain (1-3) Or Fever) 0RF Patient Comments: . Chloraseptic Sore Throat 6-10 mg Lozenge 1 brent PO PRN PRN (Reason: Sore Throat) 0RF guaifenesin [Mucus Relief ER] 600 mg Tablet Extended Release 12hr 600 mg PO Q12HR 0RF levofloxacin 750 mg tablet 750 mg PO DAILY Qty: 5 0RF albuterol sulfate 2.5 mg /3 mL (0.083 %) solution for nebulization 2.5 mg inhalation Q4-6H PRN (Reason: Shortness Of Breath Or Wheezing) Qty: 1080 1RF montelukast [Singulair] 10 mg tablet 10 mg PO QAM Qty: 90 1RF revefenacin 175 mcg/3 mL solution for nebulization 175 mcg/3 mL solution for nebulization 175 mcg inhalation DAILY 0RF albuterol sulfate 90 mcg/actuation HFA aerosol inhaler See Rx Instructions .ROUTE .COMPLEX Qty: 3 1RF Dose Instruction: INHALE 1 TO 2 PUFFS EVERY 4 TO 6 HOURS NEEDED FOR SHORTNESS OF BREATH OR WHEEZING Rx Instructions: INHALE 1 TO 2 PUFFS EVERY 4 TO 6 HOURS NEEDED FOR SHORTNESS OF BREATH OR WHEEZING arformoterol 15 mcg/2 mL solution for nebulization See Rx Instructions .ROUTE .COMPLEX Qty: 120 0RF Dose Instruction: USE 2 ML VIA NEBULIZER TWICE DAILY Rx Instructions: USE 2 ML VIA NEBULIZER TWICE DAILY Yupelri 175 mcg/3 mL solution for nebulization 175 mcg inhalation DAILY 30 Days Qty: 90 5RF Follow-up/Referrals: Jose Rivera MD [Primary Care Provider] -
[2024-05-31 11:25] VITALS: BP 118/61; PULSE 101; RESP 16; TEMP 37.2; O2SAT 100
== END 2024-05-31 11:35 | disposition short-term general hospital (02) ==
PROVIDERS: Emergency Provider Nurse Practitioner; PCP Family Medicine
DX: R04.0 Epistaxis (principal); I12.9 Hypertensive chronic kidney disease with stage 1 through stage 4 chronic kidney disease, or unspecified chronic kidney disease; N18.9 Chronic kidney disease, unspecified; B18.2 Chronic viral hepatitis C; Z85.118 Personal history of other malignant neoplasm of bronchus and lung; Z87.891 Personal history of nicotine dependence
CPT/HCPCS: 99215; G0463

== ENCOUNTER 2024-05-31 11:52 | Inpatient (IN) | payer MEDICARE, MEDICAID, SELFPAY ==
[2024-05-31 11:51] VITALS: BP 110/69; PULSE 100; RESP 18; TEMP 36.6; O2SAT 97
--- NOTE | 2024-05-31 12:33 | ED_ITS ---
HPI - General Adult General Chief complaint: Epistaxis Stated complaint: nosebleed Time Seen by Provider: 05/31/24 12:06 History of Present Illness HPI narrative: 73-year-old male presenting to the emergency department for evaluation for epistaxis that started approximately 6:00 a.m.. Patient states he did attempt to pinch the nose and use some cotton packing but states that did not resolve. Upon arrival emergency department patient had a nasal clamp and place from urgent care and the bleeding was resolved. Related Data Home Medications ?Medication ?Instructions ?Recorded ?Confirmed ?Last Taken ?Type amlodipine 10 mg tablet 10 mg PO QAM 03/07/20 05/31/24 08/30/23 History doxazosin 8 mg tablet 8 mg PO HS 03/07/20 05/31/24 08/29/23 History ergocalciferol (vitamin D2) 1,250 1,250 mcg PO WEEKLY 03/07/20 05/31/24 08/25/23 History mcg (50,000 unit) capsule fluticasone propionate 50 1 spray intranasal DAILY PRN 03/07/20 05/31/24 08/30/23 History mcg/actuation nasal Congestion spray,suspension nebulizer and compressor (Easy Neb #1 ea 03/07/20 05/31/24 Unknown History Compressor Nebulizer) sildenafil 100 mg tablet 100 mg PO DAILY PRN Erectile 03/07/20 05/31/24 Unknown History Dysfunction omeprazole 40 mg capsule,delayed 40 mg PO DAILY 01/28/23 05/31/24 08/30/23 History release methocarbamol 500 mg tablet 500 mg PO PRN PRN back spasms 08/30/23 05/31/24 03/31/23 History roflumilast 500 mcg tablet 500 mcg PO HS copd 08/30/23 05/31/24 08/29/23 History Vitamin C 1 tab-cap PO DAILY 03/30/24 05/31/24 Unknown History ferrous sulfate 1 tab-cap PO DAILY 03/30/24 05/31/24 Unknown History vitamin G42-lmeli acid 1 tab-cap PO DAILY 03/30/24 05/31/24 Unknown History baclofen 10 mg tablet 10 mg PO TID PRN Hiccups 04/15/24 05/31/24 Unknown History budesonide 0.25 mg/2 mL suspension 0.25 mg inhalation BID 04/15/24 05/31/24 Unknown History for nebulization levocetirizine 5 mg tablet 5 mg PO DAILY 04/15/24 05/31/24 Unknown History metoprolol tartrate 25 mg tablet 25 mg PO HS 04/15/24 05/31/24 Unknown History Allergies Allergy/AdvReac Type Severity Reaction Status Date / Time lisinopril Allergy Severe Swelling Verified 05/31/24 17:13 Penicillins Allergy Intermediate Hives / Verified 05/31/24 17:13 Red Face Sulfa (Sulfonamide Allergy Intermediate Hives / Verified 05/31/24 17:13 Antibiotics) Red Face Review of Systems 2 Review of Systems: All systems reviewed & are unremarkable except as noted in HPI and below PMFSH Past Medical History Medical History G6PD deficiency History of biliary stent insertion Former smoker Hypertension Chronic respiratory failure with hypoxia, on home oxygen therapy Chronic obstructive pulmonary disease Benign prostatic hyperplasia Small cell lung cancer (02/2024) Hepatitis C GERD (gastroesophageal reflux disease) Pulmonary emboli (11/2021) Former smoker Asbestos exposure Environmental allergies Sleep apnea Chronic viral hepatitis C Elevated PSA Chronic kidney disease Surgical History Surgical History History of back surgery History of ankle surgery (2015) Family History Family History Father Cancer Pancreatic cancer Mother Asthma Cerebrovascular accident Sibling Diabetes mellitus Hypertension Heart disease Cerebrovascular accident Cancer of colon Other Lung disease Social History Social History Social History: Surrogate medical decision maker: Negin Cotto, spouse. Code status: Full code. Smoking packs per day: 1 Smoking cigarettes per day: 20.0 Years smoked: 50 Smoking pack-years: 50.00 Smoking status: Former smoker Tobacco type: cigarettes Smoking end date: 06/13/17 Alcohol intake: former Drinks per week: 1 Alcohol use details: Social alcohol use in moderation. Substance use: never Substance use type: does not use Do You Feel Safe in your Home?: Yes Lack of Transportation: No Lack of Food: Never True Current Housing: I Have Housing Concerned About Future Housing: No Difficulty Paying Gas/Electric Bills: YES Difficulty Paying for Meds: No Currently Unemployed: No Education: High School Diploma/GED Difficulty w/ Childcare or Family Care: No Living arrangements: alone Occupation/Education: retired Spiritual care concerns: No Exam 2 Narrative: APPEARANCE: Well appearing, no pain, no distress, well-nourished. HEAD: normocephalic, atraumatic. EYES: PERRLA/EOMI, conjunctivae clear. NOSE: Epistaxis through left nostril, bleeding resolved upon arrival to the emergency department EARS:TMS clear with good light reflex. THROAT: Pharynx clear, no exudate. NECK: Supple. No adenopathy, no masses. RESPIRATORY: Airway patent, respirations nonlabored. Clear to auscultation bilaterally, no rales, rhonchi, wheezing. CARDIOVASCULAR: Regular rate and rhythm without murmurs rubs or gallops. ABDOMINAL: Soft, nontender, nondistended, normal bowel sounds MUSCULOSKELETAL: Moves all extremities. Strength/ROM intact, No edema, No calf tenderness. NEURO: Alert. Cranial nerves II through XII intact. Grossly intact SKIN: Warm, dry. Normal Color Course Vital Signs Vital signs: Vital Signs Temperature 98 F 05/31/24 11:51 Pulse Rate 100 05/31/24 11:51 Respiratory Rate 18 05/31/24 11:51 Blood Pressure 110/69 05/31/24 11:51 Pulse Oximetry 97 05/31/24 11:51 Oxygen Delivery Room Air 05/31/24 11:51 Temperature 98 F 05/31/24 11:51 Pulse Rate 98 05/31/24 17:39 Respiratory Rate 20 05/31/24 17:39 Blood Pressure 125/77 05/31/24 17:39 Pulse Oximetry 97 05/31/24 17:39 Oxygen Delivery Room Air 05/31/24 11:51 Medical Decision Making MDM Narrative Medical decision making narrative: 73-year-old male present to the emergency department for evaluation for epistaxis. Patient blew his nose and clot was cleared. Patient was observed for an hour after clearing of the clot patient had no recurrent epistaxis. Post patient is currently undergoing chemotherapy following up with Dr Brown. Oncology is not on-call today but is returning tomorrow. Cbc shows the patient is neutropenic and does have a anemia and thrombocytopenia. Patient is afebrile. Patient's platelets are 15,000. Patient has no current bleeding. Platelets are not being given at this time. Repeat labs will be ordered the morning. Oncology was consulted. Patient was comfortable the plan for admission and further observation. All questions concerns were addressed. Differential Diagnosis Differential Diagnosis: Thrombocytopenia, anemia, neutropenia, epistaxis Vital Signs Vital Signs: Vital Signs Temperature 98 F 05/31/24 11:51 Pulse Rate 100 05/31/24 11:51 Respiratory Rate 18 05/31/24 11:51 Blood Pressure 110/69 05/31/24 11:51 Pulse Oximetry 97 05/31/24 11:51 Oxygen Delivery Room Air 05/31/24 11:51 Temperature 98 F 05/31/24 11:51 Pulse Rate 98 05/31/24 17:39 Respiratory Rate 20 05/31/24 17:39 Blood Pressure 125/77 05/31/24 17:39 Pulse Oximetry 97 05/31/24 17:39 Oxygen Delivery Room Air 05/31/24 11:51 Lab Data Lab results reviewed: Yes I reviewed the patient's lab results. 05/31/24 13:20 05/31/24 20:07 Labs: Lab Results 05/31/24 05/31/24 Range/Units 13:01 13:20 WBC 0.3 L* (4.5-10.0) K/mm3 RBC 2.97 L (4.6-6.20) M/mm3 Hgb 8.3 L (14.0-18.0) g/dL Hct 26.2 L (42.0-52.0) % MCV 88.2 (80-100) fl MCH 27.9 (26-34) pg MCHC 31.7 L (32-36) g/dl RDW 16.3 H (11.5-14.5) % Plt Count 15 L* D (150-375) k/mm3 MPV TNP Immature Gran % (Auto) Not Reportable Neut % (Auto) Not Reportable Lymph % (Auto) Not Reportable [place] % (Auto) Not Reportable Eos % (Auto) Not Reportable Baso % (Auto) Not Reportable Lymph # (Auto) Not Reportable [place] # (Auto) Not Reportable Eos # (Auto) Not Reportable Baso # (Auto) Not Reportable Abs Immat Gran (auto) Not Reportable Absolute Neuts (auto) Not Reportable Absolute Nucleated RBC Not Reportable Total Counted 25 Neutrophils % (Manual) 4 L (46-73) % Lymphocytes % (Manual) 17 L (18-44) % Monocytes % (Manual) 4 (3-9) % Nucleated RBC % Not Reportable Abs Lymphs (Manual) 0.05 L (1.1-4.5) K/mm3 Abs Monocytes (Manual) 0.01 L (0.1-0.90) K/mm3 Platelet Estimate Decreased (Adequate) % Immature Plt Fraction 2.2 (0.9-11.2) % Hypochromasia 2+ Anisocytosis 1+ Ovalocytes 1+ Schistocytes None seen PT 13.2 (11.1-14.7) Seconds INR 1.0 APTT 31.2 (22.3-36.8) Seconds Critical Care Time Critical Care Time Critical Care Time: Yes Total Critical Care Time: 35 Discharge Plan Discharge Clinical Impression: Thrombocytopenia, Epistaxis Patient Disposition: Still a Patient Condition: Stable
[2024-05-31 13:19] LABS: Prothrombin Time 13.2 Seconds (11.1-14.7)
[2024-05-31 13:20] LABS: Partial Thromboplastin Time 31.2 Seconds (22.3-36.8)
[2024-05-31 13:29] LABS: Hematocrit 26.2 % (42.0-52.0); Hemoglobin 8.3 g/dL (14.0-18.0); Immature Platelet Fraction Pct 2.2 % (0.9-11.2); Mean Corpuscular HGB Conc 31.7 g/dl (32-36); Mean Corpuscular Hemoglobin 27.9 pg (26-34); Mean Corpuscular Volume 88.2 fl (80-100); Red Blood Count 2.97 M/mm3 (4.6-6.20); Red Cell Distribution Width 16.3 % (11.5-14.5)
[2024-05-31 13:35] LABS: Platelet Count Result 15 k/mm3 (150-375); White Blood Count 0.3 K/mm3 (4.5-10.0)
[2024-05-31 14:29] LABS: Lymphocytes Absolute Manual 0.05 K/mm3 (1.1-4.5); Lymphocytes Percent Manual 17 % (18-44); Monocytes Absolute Manual 0.01 K/mm3 (0.1-0.90); Monocytes Percent Manual 4 % (3-9); Neutrophils Percent Manual 4 % (46-73); Platelet Estimate Decreased (Adequate); Total Cells Counted 25
[2024-05-31 14:30] LABS: Anisocytosis 1+; Hypochromasia 2+; Ovalocytes 1+; Schistocytes None Seen
[2024-05-31 16:06] VITALS: BP 126/79; PULSE 114; RESP 23; O2SAT 97
--- NOTE | 2024-05-31 17:38 | PC.NURSE ---
Dinner tray ordered for patient
[2024-05-31 17:39] VITALS: BP 125/77; PULSE 98; RESP 20; O2SAT 97
--- NOTE | 2024-05-31 18:00 | P.HP_ITS ---
H&P: HPI History of Present Illness Date/Time: 05/31/24 18:00 Chief Complaint: Epistaxis Narrative: 73-year-old male presenting to the emergency department for evaluation for epistaxis that started approximately 6:00 a.m.. Patient states he did attempt to pinch the nose and use some cotton packing but states that did not resolve. Upon arrival emergency department patient had a nasal clamp and place from [facility] and the bleeding was resolved. WBC 0.3, platelet 15, hemoglobin 8.3 [facility] Past Medical History Medical History G6PD deficiency History of biliary stent insertion Former smoker Hypertension Chronic respiratory failure with hypoxia, on home oxygen therapy Chronic obstructive pulmonary disease Benign prostatic hyperplasia Small cell lung cancer (02/2024) Hepatitis C GERD (gastroesophageal reflux disease) Pulmonary emboli (11/2021) Former smoker Asbestos exposure Environmental allergies Sleep apnea Chronic viral hepatitis C Elevated PSA Chronic kidney disease Surgical History Surgical History History of back surgery History of ankle surgery (2015) Family History Family History Father Cancer Pancreatic cancer Mother Asthma Cerebrovascular accident Sibling Diabetes mellitus Hypertension Heart disease Cerebrovascular accident Cancer of colon Other Lung disease Social History Social History Social History: Surrogate medical decision maker: Negin Yadiel, spouse. Code status: Full code. Smoking packs per day: 1 Smoking cigarettes per day: 20.0 Years smoked: 50 Smoking pack-years: 50.00 Smoking status: Former smoker Tobacco type: cigarettes Smoking end date: 06/13/17 Alcohol intake: former Drinks per week: 1 Alcohol use details: Social alcohol use in moderation. Substance use: never Substance use type: does not use Do You Feel Safe in your Home?: Yes Lack of Transportation: No Lack of Food: Never True Current Housing: I Have Housing Concerned About Future Housing: No Difficulty Paying Gas/Electric Bills: YES Difficulty Paying for Meds: No Currently Unemployed: No Education: High School Diploma/GED Difficulty w/ Childcare or Family Care: No Living arrangements: alone Occupation/Education: retired Spiritual care concerns: No Meds Home Medications and Allergies Home Medications ?Medication ?Instructions ?Recorded ?Confirmed ?Type amlodipine 10 mg tablet 10 mg PO QAM 03/07/20 05/31/24 History doxazosin 8 mg tablet 8 mg PO HS 03/07/20 05/31/24 History ergocalciferol (vitamin D2) 1,250 1,250 mcg PO WEEKLY 03/07/20 05/31/24 History mcg (50,000 unit) capsule fluticasone propionate 50 1 spray intranasal DAILY PRN 03/07/20 05/31/24 History mcg/actuation nasal Congestion spray,suspension nebulizer and compressor (Easy Neb #1 ea 03/07/20 05/31/24 History Compressor Nebulizer) sildenafil 100 mg tablet 100 mg PO DAILY PRN Erectile 03/07/20 05/31/24 History Dysfunction omeprazole 40 mg capsule,delayed 40 mg PO DAILY 01/28/23 05/31/24 History release albuterol sulfate 2.5 mg/3 mL 2.5 mg (3 mL) inhalation Q4-6H PRN 03/18/23 05/31/24 Rx (0.083 %) solution for nebulization Shortness Of Breath Or Wheezing #1,080 mL montelukast 10 mg tablet 10 mg PO QAM #90 tabs 04/25/23 05/31/24 Rx (Singulair) methocarbamol 500 mg tablet 500 mg PO PRN PRN back spasms 08/30/23 05/31/24 History roflumilast 500 mcg tablet 500 mcg PO HS copd 08/30/23 05/31/24 History revefenacin 175 mcg/3 mL solution 175 mcg/3 mL Solution For 09/21/23 05/31/24 Sample for nebulization (Yupelri) Nebulization#3 Samples metoprolol tartrate 25 mg tablet 50 mg (2 x 25 mg) PO DAILY #60 tabs 03/24/24 Rx Vitamin C 1 tab-cap PO DAILY 03/30/24 05/31/24 History ferrous sulfate 1 tab-cap PO DAILY 03/30/24 05/31/24 History vitamin E23-ryegp acid 1 tab-cap PO DAILY 03/30/24 05/31/24 History albuterol sulfate 90 mcg/actuation See Rx Instructions .Route 04/12/24 05/31/24 Rx aerosol inhaler .COMPLEX #3 ea baclofen 10 mg tablet 10 mg PO TID PRN Hiccups 04/15/24 05/31/24 History budesonide 0.25 mg/2 mL suspension 0.25 mg inhalation BID 04/15/24 05/31/24 History for nebulization levocetirizine 5 mg tablet 5 mg PO DAILY 04/15/24 05/31/24 History metoprolol tartrate 25 mg tablet 25 mg PO HS 04/15/24 05/31/24 History acetaminophen 325 mg tablet 650 mg (2 x 325 mg) PO Q6H PRN 04/18/24 05/31/24 Rx Mild Pain (1-3) Or Fever benzocaine 6 mg-menthol 10 mg 1 brent PO PRN PRN Sore Throat 04/18/24 05/31/24 Rx lozenges (Chloraseptic Sore Throat) arformoterol 15 mcg/2 mL solution See Rx Instructions .Route 04/26/24 05/31/24 Rx for nebulization .COMPLEX #120 mL revefenacin 175 mcg/3 mL solution 175 mcg (3 mL) inhalation DAILY 05/09/24 05/31/24 Rx for nebulization (Jessicai) COPD 1 month #90 mL Allergies Allergy/AdvReac Type Severity Reaction Status Date / Time lisinopril Allergy Severe Swelling Verified 05/31/24 17:13 Penicillins Allergy Intermediate Hives / Verified 05/31/24 17:13 Red Face Sulfa (Sulfonamide Allergy Intermediate Hives / Verified 05/31/24 17:13 Antibiotics) Red Face Vital Signs Vital Signs - 24 hr 05/31/24 11:51 05/31/24 16:06 05/31/24 17:39 Temperature 98 F Pulse Rate 100 114 H 98 Respiratory Rate 18 23 H 20 Blood Pressure 110/69 126/79 125/77 Pulse Oximetry 97 97 97 Oxygen Delivery Room Air H&P: Results Labs Labs: Short CBC 05/31/24 Range/Units 13:20 WBC 0.3 L* (4.5-10.0) K/mm3 Hgb 8.3 L (14.0-18.0) g/dL Hct 26.2 L (42.0-52.0) % Plt Count 15 L* D (150-375) k/mm3
--- NOTE | 2024-05-31 18:45 | PC.NURSE ---
Food tray delivered to patient
--- NOTE | 2024-05-31 19:05 | ADMGEN ---
This patient, Lee Cotto Sr., was admitted to Medical Room 342-01. Patient/family oriented to hospital policies and general routines including ID bracelet, bed and alarms, visiting hours, pain management, procedures, bathroom and other care routines, personal items, smoking policy, room service/diet, and visiting hours. Information on how to activate the Rapid Response Team has been discussed. Patient/Family are encouraged to report perceived risks to care and to ask questions if they do not understand what they are told or what they should do.
--- NOTE | 2024-05-31 19:42 | PM.IMHP ---
H&P: HPI History of Present Illness Date/Time: 05/31/24 19:42 Chief Complaint: Epistaxis Narrative: 73-year-old male PMH of Asbestos exposure, BPH, CKD, COPD, hep C, PE, HTN, sleep apnea, and limited stage small cell lung cancer currently in treatment with chemotherapy and radiation presenting to the emergency department for evaluation for epistaxis that started at approximately 6:00 a.m. The patient states he attempted to pinch the nose and use some cotton packing, but that did not resolve the issue. Upon arrival at the emergency department, the patient had a nasal clamp and was placed in urgent care, and the bleeding was resolved. During the evaluation at the bedside, the patient reported that he was diagnosed with small-cell lung cancer in February 2024. Currently, he is undergoing radiation and chemotherapy. He reports his last chemotherapy is going to be on June 18, 2024. The patient is presently currently under Dr. Brown. He reports that he started having a nose problem this morning and went to urgent care very soon. They gave him a clip, but still, the bleeding did not stop, so he came to the emergency department. After a few hours, it stopped. In ED pertinent labs: WBC 0.3, hemoglobin 8.3, platelet 15 Since the patient had epistaxis (symptomatic bleeding ) due to low platelets, he was given 1 unit of platelets. Also, due to neutropenia, he was given filgrastim and started on prophylactic cefepime and vancomycin. Once his blood culture and nasal MRSA results are available, we will de-escalate the antibiotic. Review of Systems Review of Systems: All systems reviewed & are unremarkable except as noted in HPI and below PMFSH Past Medical History Medical History G6PD deficiency History of biliary stent insertion Former smoker Hypertension Chronic respiratory failure with hypoxia, on home oxygen therapy Chronic obstructive pulmonary disease Benign prostatic hyperplasia Small cell lung cancer (02/2024) Hepatitis C GERD (gastroesophageal reflux disease) Pulmonary emboli (11/2021) Former smoker Asbestos exposure Environmental allergies Sleep apnea Chronic viral hepatitis C Elevated PSA Chronic kidney disease Surgical History Surgical History History of back surgery History of ankle surgery (2015) Family History Family History Father Cancer Pancreatic cancer Mother Asthma Cerebrovascular accident Sibling Diabetes mellitus Hypertension Heart disease Cerebrovascular accident Cancer of colon Other Lung disease Social History Social History Social History: Surrogate medical decision maker: Negin Cotto, spouse. Code status: Full code. Smoking packs per day: 1 Smoking cigarettes per day: 20.0 Years smoked: 50 Smoking pack-years: 50.00 Smoking status: Former smoker Tobacco type: cigarettes Smoking end date: 06/13/17 Alcohol intake: never Drinks per week: 1 Alcohol use details: Social alcohol use in moderation. Substance use: never Substance use type: does not use Do You Feel Safe in your Home?: Yes Lack of Transportation: No Lack of Food: Never True Current Housing: I Have Housing Concerned About Future Housing: No Difficulty Paying Gas/Electric Bills: No Difficulty Paying for Meds: No Currently Unemployed: No Education: High School Diploma/GED Difficulty w/ Childcare or Family Care: No Living arrangements: alone Occupation/Education: retired Spiritual care concerns: No Meds Home Medications and Allergies Home Medications ?Medication ?Instructions ?Recorded ?Confirmed ?Type amlodipine 10 mg tablet 10 mg PO QAM 03/07/20 05/31/24 History doxazosin 8 mg tablet 8 mg PO HS 03/07/20 05/31/24 History ergocalciferol (vitamin D2) 1,250 1,250 mcg PO WEEKLY 03/07/20 05/31/24 History mcg (50,000 unit) capsule fluticasone propionate 50 1 spray intranasal DAILY PRN 03/07/20 05/31/24 History mcg/actuation nasal Congestion spray,suspension nebulizer and compressor (Easy Neb #1 ea 03/07/20 05/31/24 History Compressor Nebulizer) sildenafil 100 mg tablet 100 mg PO DAILY PRN Erectile 03/07/20 05/31/24 History Dysfunction omeprazole 40 mg capsule,delayed 40 mg PO DAILY 01/28/23 05/31/24 History release albuterol sulfate 2.5 mg/3 mL 2.5 mg (3 mL) inhalation Q4-6H PRN 03/18/23 05/31/24 Rx (0.083 %) solution for nebulization Shortness Of Breath Or Wheezing #1,080 mL montelukast 10 mg tablet 10 mg PO QAM #90 tabs 04/25/23 05/31/24 Rx (Singulair) methocarbamol 500 mg tablet 500 mg PO PRN PRN back spasms 08/30/23 05/31/24 History roflumilast 500 mcg tablet 500 mcg PO HS copd 08/30/23 05/31/24 History Vitamin C 1 tab-cap PO DAILY 03/30/24 05/31/24 History ferrous sulfate 1 tab-cap PO DAILY 03/30/24 05/31/24 History vitamin F46-fqeob acid 1 tab-cap PO DAILY 03/30/24 05/31/24 History albuterol sulfate 90 mcg/actuation See Rx Instructions .Route 04/12/24 05/31/24 Rx aerosol inhaler .COMPLEX #3 ea baclofen 10 mg tablet 10 mg PO TID PRN Hiccups 04/15/24 05/31/24 History budesonide 0.25 mg/2 mL suspension 0.25 mg inhalation BID 04/15/24 05/31/24 History for nebulization levocetirizine 5 mg tablet 5 mg PO DAILY 04/15/24 05/31/24 History metoprolol tartrate 25 mg tablet 25 mg PO HS 04/15/24 05/31/24 History arformoterol 15 mcg/2 mL solution See Rx Instructions .Route 04/26/24 05/31/24 Rx for nebulization .COMPLEX #120 mL revefenacin 175 mcg/3 mL solution 175 mcg (3 mL) inhalation DAILY 05/09/24 05/31/24 Rx for nebulization ([place]) COPD 1 month #90 mL aspirin 81 mg chewable tablet 81 mg PO DAILY 05/31/24 05/31/24 History (Aspirin Childrens) metoprolol tartrate 25 mg tablet 25 mg PO DAILY 05/31/24 05/31/24 History Allergies Allergy/AdvReac Type Severity Reaction Status Date / Time lisinopril Allergy Severe Swelling Verified 05/31/24 17:13 Penicillins Allergy Intermediate Hives / Verified 05/31/24 17:13 Red Face Sulfa (Sulfonamide Allergy Intermediate Hives / Verified 05/31/24 17:13 Antibiotics) Red Face Vital Signs Vital Signs - 24 hr 05/31/24 11:51 05/31/24 16:06 05/31/24 17:39 Temperature 98 F Pulse Rate 100 114 H 98 Respiratory Rate 18 23 H 20 Blood Pressure 110/69 126/79 125/77 Pulse Oximetry 97 97 97 Oxygen Delivery Room Air Exam Narrative: APPEARANCE: Well appearing, no pain, no distress, well-nourished. HEAD: normocephalic, atraumatic. EYES: PERRLA/EOMI, conjunctivae clear. NOSE: Epistaxis through left nostril, bleeding resolved upon arrival to the emergency department EARS:TMS clear with good light reflex. THROAT: Pharynx clear, no exudate. NECK: Supple. No adenopathy, no masses. RESPIRATORY: Airway patent, respirations nonlabored. Clear to auscultation bilaterally, no rales, rhonchi, wheezing. CARDIOVASCULAR: Regular rate and rhythm without murmurs rubs or gallops. ABDOMINAL: Soft, nontender, nondistended, normal bowel sounds MUSCULOSKELETAL: Moves all extremities. Strength/ROM intact, No edema, No calf tenderness. NEURO: Alert. Cranial nerves II through XII intact. Grossly intact SKIN: Warm, dry. Normal Color H&P: Results Labs Labs: Short CBC 05/31/24 Range/Units 13:20 WBC 0.3 L* (4.5-10.0) K/mm3 Hgb 8.3 L (14.0-18.0) g/dL Hct 26.2 L (42.0-52.0) % Plt Count 15 L* D (150-375) k/mm3 Assessment and Plan Assessment and plan (1) Epistaxis: Code(s): R04.0 - Epistaxis Status: Acute (2) Thrombocytopenia: Code(s): D69.6 - Thrombocytopenia, unspecified Status: Acute (3) Anemia: Qualifiers: Anemia type: unspecified type Qualified Code(s): D64.9 - Anemia, unspecified Code(s): D64.9 - Anemia, unspecified Status: Acute (4) Small cell lung cancer: Code(s): C34.90 - Malignant neoplasm of unspecified part of unspecified bronchus or lung Status: Acute Plan #Small cell lung cancer #Pancytopenia #Epistaxis Given filgrastim Transfused 1 U platelet due to symptomatic bleeding Undergoing Chemo and radiation for SCLC On Cefepime and Vancomycin for neutropenia Watch for any spontaneous bleeding. Neutropenic precautions Will deescalate after BC and Nasal MRSA Oncology consulted DVT prophylaxis: CI due to bleeding Hospitalist MIPS Advance Care Plan I have confirmed that the patient's Advanced Care Plan is present, code status is documented, or surrogate decision maker is listed in patient medical record.: Yes Medication Reconciliation I have utilized all available resources to obtain, update and review the patients current medications (includes all prescriptions, OTC, herbals, cannabis, and nutritional supplements).: Yes
[2024-05-31 20:25] LABS: Estimated CRCL calculation 47 ml/min; Estimated Glomerular Filt Rate > 60
[2024-05-31 21:00] VITALS: O2SAT 100
[2024-05-31] MEDS: FILGRASTIM-SNDZ 300 MCG/0.5 ML SYRINGE SUB-Q (21:31)
[2024-05-31] MEDS: CEFEPIME 2 GM/NS 50 ML BAG IVPB (21:35)
[2024-05-31 22:04] VITALS: BP 130/74; PULSE 103; RESP 22; TEMP 36.3; O2SAT 100
[2024-05-31] MEDS: VANCOMYCIN 2,000 MG/NS 500 ML 2,000 MG/500 ML BAG 250 MG IVPB (22:33)
[2024-05-31 23:02] VITALS: BMI 28.1
[2024-06-01] VITALS (24 sets, daily range): BP systolic 120–188; BP diastolic 62–79; PULSE 75–112; RESP 18–22; TEMP 36–37.5; O2SAT 98–100; BMI 28.1
--- NOTE | 2024-06-01 01:53 | PC.NURSE ---
Platelet infusion delayed due to vancomycin slow infusion.
[2024-06-01 03:27] LABS: MRSA (PCR) NOT DETECTED (NOT DETECTE)
[2024-06-01] MEDS: SODIUM CHLORIDE 0.9% IV 250 ML 30 ML IV CONT (06:00)
[2024-06-01 06:45] LABS: Hematocrit 22.5 % (42.0-52.0); Hemoglobin 7.2 g/dL (14.0-18.0); Immature Platelet Fraction Pct 4.7 % (0.9-11.2); Mean Corpuscular Hemoglobin 27.6 pg (26-34); Mean Corpuscular Volume 86.2 fl (80-100); Platelet Count Result 31 k/mm3 (150-375); Red Blood Count 2.61 M/mm3 (4.6-6.20)
[2024-06-01 06:50] LABS: Alanine Aminotransferase 15 U/L (6-50); Albumin Level 3.1 g/dL (3.5-5.1); Alkaline Phosphatase 113 U/L (38-126); Anion Gap 2 mmol/L (4-12); Aspartate Amino Transferase 11 U/L (17-59); Bilirubin,Total 0.9 mg/dL (0.2-1.3); Blood Urea Nitrogen 22 mg/dL (9-20); Calcium 8.4 mg/dL (8.4-10.2); Carbon Dioxide 26 mmol/L (22-30); Chloride 108 mmol/L (98-107); Estimated CRCL calculation 47 ml/min; Estimated Glomerular Filt Rate > 60; Glucose 84 mg/dL (65-110); Potassium 4.1 mmol/L (3.4-5.0); Sodium 136 mmol/L (137-145)
[2024-06-01 07:31] LABS: White Blood Count 0.3 K/mm3 (4.5-10.0)
[2024-06-01] MEDS: SALINE 0.65% NAS SOLN 44 ML BTL 1 SPRAY NASAL (09:25)
[2024-06-01] MEDS: CEFEPIME 2 GM/NS 50 ML BAG IVPB ×2 (10:44→22:15)
[2024-06-01] MEDS: CENTRAL LINE FLUSH 10 ML IV PUSH ×3 (10:44→22:18)
[2024-06-01] MEDS: FILGRASTIM-SNDZ 300 MCG/0.5 ML SYRINGE SUB-Q (10:45)
[2024-06-01 11:21] LABS: Mean Platelet Volume 12.2 fl (7.4-10.4); Platelet Count Result 50 k/mm3 (150-375)
--- NOTE | 2024-06-01 14:04 | PM.IMPN ---
Progress Note: A&P Assessment and Plan (1) Epistaxis: Code(s): R04.0 - Epistaxis Status: Acute (2) Thrombocytopenia: Code(s): D69.6 - Thrombocytopenia, unspecified Status: Acute (3) Anemia: Qualifiers: Anemia type: unspecified type Qualified Code(s): D64.9 - Anemia, unspecified Code(s): D64.9 - Anemia, unspecified Status: Acute (4) Small cell lung cancer: Code(s): C34.90 - Malignant neoplasm of unspecified part of unspecified bronchus or lung Status: Acute Plan #Small cell lung cancer #Pancytopenia #Epistaxis Given filgrastim Transfused 1 U platelet due to symptomatic bleeding Undergoing Chemo and radiation for SCLC On Cefepime and Vancomycin for neutropenia- will stop vanc. Keep him on cefepime until blood cultures are back and negative. if negative and stable otherwise- anticipate discharge home. Watch for any spontaneous bleeding. Neutropenic precautions Will deescalate after BC and Nasal MRSA Oncology consulted DVT prophylaxis: CI due to bleeding Time Spent With Patient Time with patient: Greater than 35 minutes Subjective Date/time seen: 06/01/24 14:04 Interval history: 73-year-old male PMH of Asbestos exposure, BPH, CKD, COPD, hep C, PE, HTN, sleep apnea, and limited stage small cell lung cancer currently in treatment with chemotherapy and radiation presenting to the emergency department for evaluation for epistaxis that started at approximately 6:00 a.m. The patient states he attempted to pinch the nose and use some cotton packing, but that did not resolve the issue. Upon arrival at the emergency department, the patient had a nasal clamp and was placed in urgent care, and the bleeding was resolved. In ED pertinent labs: WBC 0.3, hemoglobin 8.3, platelet 15 Since the patient had epistaxis (symptomatic bleeding ) due to low platelets, he was given 1 unit of platelets. Also, due to neutropenia, he was given filgrastim and started on prophylactic cefepime and vancomycin. Once his blood culture and nasal MRSA results are available, we will de-escalate the antibiotic. pt is seen and examined. he reports no nose bleeding any more. appetite is poor but that is his baseline. Review of Systems Review of Systems: All systems reviewed & are unremarkable except as noted in HPI and below Exam Narrative: APPEARANCE: Well appearing, no pain, no distress, well-nourished. HEAD: normocephalic, atraumatic. EYES: PERRLA/EOMI, conjunctivae clear. NOSE: Epistaxis through left nostril, bleeding resolved upon arrival to the emergency department EARS:TMS clear with good light reflex. THROAT: Pharynx clear, no exudate. NECK: Supple. No adenopathy, no masses. RESPIRATORY: Airway patent, respirations nonlabored. Clear to auscultation bilaterally, no rales, rhonchi, wheezing. CARDIOVASCULAR: Regular rate and rhythm without murmurs rubs or gallops. ABDOMINAL: Soft, nontender, nondistended, normal bowel sounds MUSCULOSKELETAL: Moves all extremities. Strength/ROM intact, No edema, No calf tenderness. NEURO: Alert. Cranial nerves II through XII intact. Grossly intact SKIN: Warm, dry. Normal Color Objective Data Vital Signs Vital Signs: Vital Signs - 24 hr 05/31/24 16:06 05/31/24 17:39 05/31/24 21:00 Temperature Pulse Rate 114 H 98 Respiratory Rate 23 H 20 Blood Pressure 126/79 125/77 Pulse Oximetry 97 97 100 Oxygen Delivery Nasal Cannula Oxygen Flow Rate 3 05/31/24 22:04 06/01/24 00:05 06/01/24 03:33 Temperature 97.3 F L 98.4 F Pulse Rate 103 H 112 H 96 Respiratory Rate 22 H 20 Blood Pressure 130/74 132/71 Pulse Oximetry 100 100 Oxygen Delivery Oxygen Flow Rate 06/01/24 03:50 06/01/24 04:04 06/01/24 04:50 Temperature 98.1 F 97.1 F L Pulse Rate 97 92 75 Respiratory Rate 18 20 Blood Pressure 135/71 124/62 Pulse Oximetry 100 98 Oxygen Delivery Oxygen Flow Rate 06/01/24 05:50 06/01/24 06:00 06/01/24 06:50 Temperature 97.8 F 97.4 F L 99.5 F Pulse Rate 90 92 95 Respiratory Rate 20 20 22 H Blood Pressure 146/75 H 131/79 128/76 Pulse Oximetry 100 100 100 Oxygen Delivery Oxygen Flow Rate 06/01/24 07:05 06/01/24 08:00 06/01/24 08:08 Temperature 98.6 F 96.8 F L Pulse Rate 88 92 Respiratory Rate 20 18 Blood Pressure 130/76 124/67 Pulse Oximetry 100 100 Oxygen Delivery Nasal Cannula Oxygen Flow Rate 3 06/01/24 08:16 06/01/24 09:08 06/01/24 10:08 Temperature 96.8 F L 98.3 F 97.7 F Pulse Rate 92 87 92 Respiratory Rate 18 18 18 Blood Pressure 124/67 122/72 124/71 Pulse Oximetry 100 100 100 Oxygen Delivery Oxygen Flow Rate 06/01/24 10:30 06/01/24 13:57 Temperature 98.6 F 97.7 F Pulse Rate 93 95 Respiratory Rate 20 20 Blood Pressure 124/71 122/68 Pulse Oximetry 100 100 Oxygen Delivery Oxygen Flow Rate Intake/Output Intake/Output: Intake & Output 05/29/24 05/30/24 05/31/24 06/01/24 23:59 23:59 23:59 23:59 Intake Total 50 1704 Output Total 100 1600 Balance -50 104 Meds/Results Medications: Active Medications Generic Name Dose Route Start Last Admin Trade Name Freq PRN Reason Stop Dose Admin Albuterol 2.5 mg 06/01/24 14:01 Albuterol Sulfate Neb 2.5 Mg/3 Ml Inh INHALATION Q4-6H PRN Shortness Of Breath Or Wheezing Amlodipine Besylate 10 mg 06/02/24 09:00 Amlodipine Besylate 10 Mg Tablet PO QAM BALWINDER Aspirin 81 mg 06/02/24 09:00 Aspirin 81 Mg Chewable Tablet PO DAILY BALWINDER Baclofen 10 mg 06/01/24 14:01 Baclofen 10 Mg Tablet PO TID PRN Hiccups Doxazosin Mesylate 8 mg 06/01/24 21:00 Doxazosin Mesylate 4 Mg Tablet PO HS BALWINDER Ergocalciferol units 06/08/24 09:00 Ergocalciferol 50,000 Units Capsule PO WEEKLY BALWINDER Filgrastim-Sndz 300 mcg 05/31/24 20:05 06/01/24 10:45 Filgrastim-Sndz 300 Mcg/0.5 Ml Syringe SUB-Q 300 mcg DAILY BALWINDER Administration Fluticasone Propionate 1 spray 06/01/24 14:01 Fluticasone Propionate 0.05% Na Spr 16 Gm Btl (*Bkc) NASAL DAILY PRN Congestion Heparin Sodium (Beef Lung) 50 units 06/01/24 09:00 06/01/24 12:55 Heparin Flush 50 Units/5 Ml Syringe IV PUSH 50 units QAM BALWINDER Administration Heparin Sodium (Beef Lung) 50 units 05/31/24 22:02 Heparin Flush 50 Units/5 Ml Syringe IV PUSH PRN PRN after intermittent infusion Heparin Sodium (Beef Lung) 50 units 05/31/24 22:02 Heparin Flush 50 Units/5 Ml Syringe IV PUSH PRN PRN after blood draws Heparin Sodium (Porcine) 500 units 05/31/24 22:02 Heparin Sodium Lock Flush 500 Units/5 Ml Syringe IV PUSH PRN PRN see comments below Cefepime HCl 2 gm in 50 mls @ 100 mls/hr 05/31/24 21:00 06/01/24 11:14 Maxipime 2 Gm/Ns 50 Ml IVPB Infused Q12H BALWINDER Infusion Methocarbamol 500 mg 06/01/24 14:01 Methocarbamol 500 Mg Tablet PO PRN PRN back spasms Metoprolol Tartrate 25 mg 06/02/24 09:00 Metoprolol Tartrate 25 Mg Tablet PO DAILY BALWINDER Metoprolol Tartrate 25 mg 06/01/24 21:00 Metoprolol Tartrate 25 Mg Tablet PO HS BALWINDER Montelukast Sodium 10 mg 06/02/24 09:00 Montelukast Sodium 10 Mg Tablet PO QAM BALWINDER Non-Formulary Medication 0 mcg 06/01/24 14:15 Arformoterol .ROUTE 07/01/24 14:14 .COMPLEX BALWINDER Non-Formulary Medication 0.25 mg 06/01/24 17:00 Budesonide INHALATION 07/01/24 16:59 BID BALWINDER Non-Formulary Medication 1 tab-cap 06/02/24 09:00 Ferrous Sulfate PO 07/02/24 08:59 DAILY BALWINDER Non-Formulary Medication 5 mg 06/02/24 09:00 Levocetirizine PO 07/02/24 08:59 DAILY BALWINDER Non-Formulary Medication 40 mg 06/02/24 09:00 Omeprazole PO 07/02/24 08:59 DAILY BALWINDER Non-Formulary Medication 175 mcg 06/02/24 09:00 Revefenacin [Yupelri] INHALATION 07/02/24 08:59 DAILY BALWINDER Non-Formulary Medication 1 tab-cap 06/02/24 09:00 Vitamin E20-Gndhw Acid PO 07/02/24 08:59 DAILY BALWINDER Non-Formulary Medication 1 tab-cap 06/02/24 09:00 Vitamin C PO 07/02/24 08:59 DAILY BALWINDER Roflumilast 500 mcg 06/01/24 21:00 Roflumilast 500 Mcg Tablet PO HS BALWINDER Sodium Chloride 10 ml 06/01/24 06:00 06/01/24 12:58 Central Line Flush IV PUSH 10 ml Q8HR BALWINDER Administration Sodium Chloride 1 spray 06/01/24 08:12 06/01/24 09:25 Saline 0.65% Emery Soln 44 Ml Btl NASAL 1 spray Q6HR PRN Administration Congestion Labs Labs: Laboratory Results - last 24 hr 05/31/24 05/31/24 05/31/24 13:20 20:06 20:07 WBC RBC Hgb Hct MCV MCH MCHC RDW Plt Count MPV Total Counted 25 Neutrophils % (Manual) 4 L Lymphocytes % (Manual) 17 L Monocytes % (Manual) 4 Abs Lymphs (Manual) 0.05 L Abs Monocytes (Manual) 0.01 L Platelet Estimate Decreased % Immature Plt Fraction Hypochromasia 2+ Anisocytosis 1+ Ovalocytes 1+ Schistocytes None seen Sodium Potassium Chloride Carbon Dioxide Anion Gap BUN Creatinine 1.20 Estim Creat Clear Calc 47 Estimated GFR > 60 Glucose Calcium Total Bilirubin AST ALT Alkaline Phosphatase Total Protein Albumin Nasal MRSA (PCR) Blood Type A Positive Antibody Screen Negative 06/01/24 06/01/24 06/01/24 01:16 06:29 11:08 WBC 0.3 L* RBC 2.61 L Hgb 7.2 L Hct 22.5 L MCV 86.2 MCH 27.6 MCHC 32.0 RDW 16.0 H Plt Count 31 L D 50 L D MPV TNP 12.2 H Total Counted Neutrophils % (Manual) Lymphocytes % (Manual) Monocytes % (Manual) Abs Lymphs (Manual) Abs Monocytes (Manual) Platelet Estimate % Immature Plt Fraction 4.7 4.0 Hypochromasia Anisocytosis Ovalocytes Schistocytes Sodium 136 L Potassium 4.1 Chloride 108 H Carbon Dioxide 26 Anion Gap 2 L BUN 22 H Creatinine 1.20 Estim Creat Clear Calc 47 Estimated GFR > 60 Glucose 84 Calcium 8.4 Total Bilirubin 0.9 AST 11 L ALT 15 Alkaline Phosphatase 113 Total Protein 6.0 L Albumin 3.1 L Nasal MRSA (PCR) Not detected Blood Type Antibody Screen
[2024-06-01] MEDS: ALBUTEROL SULFATE NEB 2.5 MG/3 ML INH INHALATION ×2 (15:23→22:27)
[2024-06-01] MEDS: DOXAZOSIN MESYLATE 4 MG TABLET 8 MG PO (22:13)
[2024-06-01] MEDS: METOPROLOL TARTRATE 25 MG TABLET PO (22:14)
[2024-06-01] MEDS: ROFLUMILAST 500 MCG TABLET PO (22:15)
[2024-06-01] MEDS: BUDESONIDE RESPULE NEB 0.5 MG/2 ML AMP INHALATION (22:27)
[2024-06-02] VITALS (9 sets, daily range): BP systolic 103–124; BP diastolic 60–69; PULSE 92–114; RESP 18–20; TEMP 36.6–36.7; O2SAT 96–99
[2024-06-02] MEDS: CENTRAL LINE FLUSH 10 ML IV PUSH ×2 (06:16→15:08)
[2024-06-02] MEDS: ALBUTEROL SULFATE NEB 2.5 MG/3 ML INH INHALATION (08:35)
[2024-06-02] MEDS: BUDESONIDE RESPULE NEB 0.5 MG/2 ML AMP INHALATION (08:35)
[2024-06-02] MEDS: MONTELUKAST SODIUM 10 MG TABLET PO (09:09)
[2024-06-02] MEDS: PANTOPRAZOLE 40 MG TABLET PO (09:09)
[2024-06-02] MEDS: ASPIRIN 81 MG CHEWABLE TABLET PO (09:09)
[2024-06-02] MEDS: amLODIPine BESYLATE 10 MG TABLET PO (09:09)
[2024-06-02] MEDS: LORATADINE 10 MG TABLET PO (09:09)
[2024-06-02] MEDS: FERROUS SULFATE 325 MG TABLET DR BY MOUTH (09:09)
[2024-06-02] MEDS: FOLIC ACID 1 MG TABLET PO (09:10)
[2024-06-02] MEDS: CYANOCOBALAMIN 1,000 MCG TABLET 1000 MCG PO (09:10)
[2024-06-02] MEDS: METOPROLOL TARTRATE 25 MG TABLET PO (09:10)
[2024-06-02] MEDS: BACLOFEN 10 MG TABLET PO (09:11)
[2024-06-02] MEDS: CEFEPIME 2 GM/NS 50 ML BAG IVPB (09:16)
[2024-06-02] MEDS: FILGRASTIM-SNDZ 300 MCG/0.5 ML SYRINGE SUB-Q (09:16)
[2024-06-02 11:06] LABS: Hemoglobin 7.7 g/dL (14.0-18.0); Immature Platelet Fraction Pct 3.4 % (0.9-11.2); Mean Corpuscular HGB Conc 32.1 g/dl (32-36); Mean Corpuscular Hemoglobin 27.7 pg (26-34); Mean Corpuscular Volume 86.3 fl (80-100); Platelet Count Result 42 k/mm3 (150-375); Red Blood Count 2.78 M/mm3 (4.6-6.20); Red Cell Distribution Width 16.2 % (11.5-14.5)
[2024-06-02 11:14] LABS: White Blood Count 0.7 K/mm3 (4.5-10.0)
[2024-06-02 11:17] LABS: Alanine Aminotransferase 15 U/L (6-50); Albumin Level 3.4 g/dL (3.5-5.1); Alkaline Phosphatase 140 U/L (38-126); Anion Gap 4 mmol/L (4-12); Aspartate Amino Transferase 11 U/L (17-59); Bilirubin,Total 0.9 mg/dL (0.2-1.3); Blood Urea Nitrogen 23 mg/dL (9-20); Calcium 8.7 mg/dL (8.4-10.2); Carbon Dioxide 26 mmol/L (22-30); Chloride 107 mmol/L (98-107); Estimated CRCL calculation 44 ml/min; Estimated Glomerular Filt Rate > 60; Glucose 99 mg/dL (65-110); Potassium 3.6 mmol/L (3.4-5.0); Sodium 137 mmol/L (137-145)
--- NOTE | 2024-06-02 13:49 | P.DS_ITS ---
DS: Admitting Diagnosis Discharge Date 06/01 Admitting Diagnosis nose bleed DS: Discharge Diagnosis Discharge Diagnosis (1) Epistaxis: Code(s): R04.0 - Epistaxis Status: Acute (2) Thrombocytopenia: Code(s): D69.6 - Thrombocytopenia, unspecified Status: Acute (3) Anemia: Qualifiers: Anemia type: unspecified type Qualified Code(s): D64.9 - Anemia, unspecified Code(s): D64.9 - Anemia, unspecified Status: Acute (4) Small cell lung cancer: Code(s): C34.90 - Malignant neoplasm of unspecified part of unspecified bronchus or lung Status: Acute DS: Summary Hospital Course Hospital Course: 73-year-old male PMH of Asbestos exposure, BPH, CKD, COPD, hep C, PE, HTN, sleep apnea, and limited stage small cell lung cancer currently in treatment with chemotherapy and radiation presenting to the emergency department for evaluation for epistaxis that started at approximately 6:00 a.m. The patient states he attempted to pinch the nose and use some cotton packing, but that did not resolve the issue. Upon arrival at the emergency department, the patient had a nasal clamp and was placed in urgent care, and the bleeding was resolved. In ED pertinent labs: WBC 0.3, hemoglobin 8.3, platelet 15 Since the patient had epistaxis (symptomatic bleeding ) due to low platelets, he was given 1 unit of platelets. Also, due to neutropenia, he was given filgrastim and started on prophylactic cefepime and vancomycin. Once his blood culture and nasal MRSA results are available, we will de-escalate the antibiotic. #Small cell lung cancer #Pancytopenia #Epistaxis Given filgrastim Transfused 1 U platelet due to symptomatic bleeding Undergoing Chemo and radiation for SCLC On Cefepime and Vancomycin for neutropenia- will stop vanc. Keep him on cefepime until blood cultures are back and negative. if negative and stable otherwise- anticipate discharge home. Watch for any spontaneous bleeding. Neutropenic precautions Will deescalate after BC and Nasal MRSA BC negative. Pt is stable- no nose bleeds. Ok to discharge to f/u with pcp. Status at Discharge Functional status at discharge: independent ambulation Overall status at discharge: patient is progressing back to baseline Time Spent with Patient Time attestation: Total time spent providing and/or coordinating discharge services: Time spent: Greater than 30 minutes Exam Narrative: APPEARANCE: Well appearing, no pain, no distress, well-nourished. HEAD: normocephalic, atraumatic. EYES: PERRLA/EOMI, conjunctivae clear. NOSE: Epistaxis through left nostril, bleeding resolved upon arrival to the emergency department EARS:TMS clear with good light reflex. THROAT: Pharynx clear, no exudate. NECK: Supple. No adenopathy, no masses. RESPIRATORY: Airway patent, respirations nonlabored. Clear to auscultation bilaterally, no rales, rhonchi, wheezing. CARDIOVASCULAR: Regular rate and rhythm without murmurs rubs or gallops. ABDOMINAL: Soft, nontender, nondistended, normal bowel sounds MUSCULOSKELETAL: Moves all extremities. Strength/ROM intact, No edema, No calf tenderness. NEURO: Alert. Cranial nerves II through XII intact. Grossly intact SKIN: Warm, dry. Normal Color DS: Data Data Completed and Pending Labs on day of discharge: Labs from last 24 hours 06/02/24 09:23 WBC 0.7 L* RBC 2.78 L Hgb 7.7 L Hct 24.0 L MCV 86.3 MCH 27.7 MCHC 32.1 RDW 16.2 H Plt Count 42 L MPV TNP % Immature Plt Fraction 3.4 Sodium 137 Potassium 3.6 Chloride 107 Carbon Dioxide 26 Anion Gap 4 BUN 23 H Creatinine 1.30 Estim Creat Clear Calc 44 Estimated GFR > 60 Glucose 99 Calcium 8.7 Total Bilirubin 0.9 AST 11 L ALT 15 Alkaline Phosphatase 140 H Total Protein 6.0 L Albumin 3.4 L Preliminary micro results at discharge 06/01/24 01:14 Blood Culture - Preliminary Blood 06/01/24 01:14 Blood Culture - Preliminary Blood Discharge Plan Discharge Attending physician on discharge: Nicholas Hair Consulting providers: Shayan Brown Discharging Clinician: Lucie Garcia Patient Disposition: Home, Self-Care Activity: no shower Diet: regular Discharge Instructions: your blood culture came back negative. White count is still low but imported a little bit. platelets improved. please f/u with pcp/oncology Patient Instructions: Antibiotic Form Patient Language: Greek Stand Alone Forms: General Discharge Information Follow-up/Referrals: Shayan Brown MD [Physician] - 1 Week Jose Rivera MD [Primary Care Provider] - 1 Week Discharge Medications: Continued Vitamin C 500 mg 1 tab-cap PO DAILY ferrous sulfate 65 mg 1 tab-cap PO DAILY vitamin P59-vvekq acid 1,000 mcg 1 tab-cap PO DAILY amlodipine 10 mg tablet 10 mg PO QAM doxazosin 8 mg tablet 8 mg PO HS (DME) Easy Neb Compressor Nebulizer Device See Rx Instructions .ROUTE .MEDSUPPLY Qty: 1 Rx Instructions: As directed fluticasone propionate 50 mcg/actuation spray,suspension 1 spray NASAL DAILY PRN (Reason: Congestion) Rx Instructions: administer into each nostril sildenafil 100 mg tablet 100 mg PO DAILY PRN (Reason: Erectile Dysfunction) Rx Instructions: administer 30 minutes to 4 hours before activity ergocalciferol (vitamin D2) 1,250 mcg (50,000 unit) capsule 1,250 mcg PO WEEKLY Rx Instructions: THURSDAYS omeprazole 40 mg Capsule,Delayed Release(Dr/Ec) 40 mg PO DAILY methocarbamol 500 mg tablet 500 mg PO PRN PRN (Reason: back spasms) roflumilast 500 mcg tablet 500 mcg PO HS metoprolol tartrate 25 mg Tablet 25 mg PO DAILY aspirin [Aspirin Childrens] 81 mg tablet,chewable 81 mg PO DAILY baclofen 10 mg tablet 10 mg PO TID PRN (Reason: Hiccups) budesonide 0.25 mg/2 mL suspension for nebulization 0.25 mg inhalation BID metoprolol tartrate 25 mg tablet 25 mg PO HS levocetirizine 5 mg tablet 5 mg PO DAILY albuterol sulfate 2.5 mg /3 mL (0.083 %) solution for nebulization 2.5 mg inhalation Q4-6H PRN (Reason: Shortness Of Breath Or Wheezing) Qty: 1080 1RF montelukast [Singulair] 10 mg tablet 10 mg PO QAM Qty: 90 1RF albuterol sulfate 90 mcg/actuation HFA aerosol inhaler See Rx Instructions .ROUTE .COMPLEX Qty: 3 1RF Dose Instruction: INHALE 1 TO 2 PUFFS EVERY 4 TO 6 HOURS NEEDED FOR SHORTNESS OF BREATH OR WHEEZING Rx Instructions: INHALE 1 TO 2 PUFFS EVERY 4 TO 6 HOURS NEEDED FOR SHORTNESS OF BREATH OR WHEEZING arformoterol 15 mcg/2 mL solution for nebulization See Rx Instructions .ROUTE .COMPLEX Qty: 120 0RF Dose Instruction: USE 2 ML VIA NEBULIZER TWICE DAILY Rx Instructions: USE 2 ML VIA NEBULIZER TWICE DAILY Yupelri 175 mcg/3 mL solution for nebulization 175 mcg inhalation DAILY 30 Days Qty: 90 5RF Date of admission: 05/31/24 18:26 Primary Care Provider: Jose Rivera Admitting Provider: Henri Gray Attending physician on admission: Henri Gray Condition: Stable Hospitalist MIPS Heart Failure (Exclusion) Patient has history of Heart Transplant or Left Ventricular Assistive Device?: No IF YES, STOP HERE Heart Failure (Qualifier) Patient has current or prior documentation of LVEF less than or equal to 40%, or mod/servere depressed LVSF?: No IF NO, STOP HERE
[2024-06-02] MEDS: HEPARIN SODIUM LOCK FLUSH 500 UNITS/5 ML SYRINGE IV PUSH (15:08)
== END 2024-06-02 15:35 | disposition home or self-care (01) | DRG 813 ==
LOC: ANHED 15:40 → ANH3MEDSUR 16:46 → ANH3MED 06-01 13:40 → ANH3MEDSUR 06-04 11:56
PROVIDERS: Nurse Practitioner; Admitting Provider Internal Medicine; Emergency Provider Emergency Medicine; PCP Family Medicine; Visit Provider General Practice
DX: D69.6 Thrombocytopenia, unspecified (principal); C34.90 Malignant neoplasm of unspecified part of unspecified bronchus or lung; J96.11 Chronic respiratory failure with hypoxia; R04.0 Epistaxis; D64.9 Anemia, unspecified; Z92.3 Personal history of irradiation; Z88.0 Allergy status to penicillin; Z87.891 Personal history of nicotine dependence; Z99.81 Dependence on supplemental oxygen; J44.9 Chronic obstructive pulmonary disease, unspecified; N40.0 Benign prostatic hyperplasia without lower urinary tract symptoms; K21.9 Gastro-esophageal reflux disease without esophagitis; Z86.711 Personal history of pulmonary embolism; G47.30 Sleep apnea, unspecified; I12.9 Hypertensive chronic kidney disease with stage 1 through stage 4 chronic kidney disease, or unspecified chronic kidney disease; N18.9 Chronic kidney disease, unspecified; Z77.090 Contact with and (suspected) exposure to asbestos
CPT/HCPCS: 36415; 36430; 80053; 82565; 85025; 85027; 85049; 85055; 85610; 85730; 86850; 86900; 86901; 87040; 87641; 94640; 99285; A9270; G0378; J0692; J1642; J3370; J7050; P9034; Q5101

== ENCOUNTER 2024-06-27 07:33 | Outpatient (RCR) | payer MEDICARE, MEDICAID, SELFPAY ==
[2024-06-27] VITALS (10 sets, daily range): BP systolic 95–110; BP diastolic 59–74; PULSE 79–86; RESP 18–20; TEMP 36.4–37.4; O2SAT 100
[2024-06-27] MEDS: diphenhydrAMINE HCl CAP 25 MG CAPSULE PO (08:12)
[2024-06-27] MEDS: SODIUM CHLORIDE 0.9% IV 250 ML 30 ML IV CONT (08:12)
[2024-06-27] MEDS: ACETAMINOPHEN 325 MG TABLET 650 MG PO (08:12)
[2024-06-27] MEDS: FUROSEMIDE INJ 40 MG/4 ML VIAL 20 MG IV PUSH (11:39)
[2024-06-27] MEDS: HEPARIN SODIUM LOCK FLUSH 500 UNITS/5 ML SYRINGE (15:05)
== END 2024-09-25 23:59 | disposition home or self-care (01) ==
LOC: ANHCPCTRAN 07:33
PROVIDERS: PCP Family Medicine; Visit Provider Internal Medicine Hematology & Oncology
DX: C34.90 Malignant neoplasm of unspecified part of unspecified bronchus or lung (principal)
CPT/HCPCS: 36415; 36430; 86850; 86900; 86901; 86923; 96374; A9270; J1940; J7050; P9016

== ENCOUNTER 2024-07-27 11:47 | Inpatient (IN) | payer MEDICARE, MEDICAID, SELFPAY ==
[2024-07-27] VITALS (36 sets, daily range): BP systolic 102–142; BP diastolic 43–87; PULSE 55–128; RESP 20–36; TEMP 36.4–38.5; O2SAT 95–100; BMI 28.0
--- NOTE | ~2024-07-27 | XR_ITS ---
XR chest 2V 07/27/2024 15:19 Indication: Shortness of breath Procedure: 2 view chest Comparison: Comparison to multiple prior studies sequentially, with oldest reviewed study dated 02/2024. Findings: Heart size normal. Portacatheter tip in the SVC. There is scarring in the right upper lobe. There is multifocal consolidation in the left mid and upper lung, consistent with pneumonia. No sign ificant effusion. No pneumothorax. Impression: 1: Multifocal left-sided consolidation, consistent with pneumonia. Reviewed, dictated and finalized at location B. EED OIL PRESS TENDER Impression: 1: Multifocal left-sided consolidation, consistent with pneumonia.
--- NOTE | ~2024-07-27 | US_ITS ---
EXAMINATION: US renal BI DATE: 07/31/2024 14:21 INDICATION: Acute on chronic kidney disease. TECHNIQUE: Multiple ultrasound grayscale images of the kidneys were obtained. COMPARISON: CT 07/29/24 FINDINGS: The right kidney measures 16.4 x 9.1 x 12.9 cm. The left kidney measures 20.6 x 10.2 x 9.7 cm. There are innumerable cysts in the kidneys measuring up to 8.7 cm on the left. There is no hydronephrosis. The bladder is normal. IMPRESSION: 1. Polycystic kidney disease. Reviewed, dictated and finalized at location A. 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
--- NOTE | ~2024-07-27 | CT_ITS ---
EXAMINATION: CT chest abdomen pelvis wo con DATE: 07/29/2024 16:35 INDICATION: Pneumonia. Lung cancer. Acute renal failure. TECHNIQUE: Computed tomography (CT) of the chest, abdomen, and pelvis was performed without intraveno us contrast. Automated exposure control and iterative reconstruction technique were employed. The dos e-length product was 869.99 mGy-cm. COMPARISON: 04/15/2024 and 01/27/2023 FINDINGS: CHEST CT: Severe emphysema with prominent consolidation in the left greater than right consistent with pneumoni a. Very small right pleural effusion. Heart size is normal. Small pericardial effusion. Fusiform asce nding thoracic aortic aneurysm measuring up to 4.4 cm in maximal diameter. No pathologically enlarged thoracic lymphadenopathy. Right subclavian central venous port catheter with distal tip in the cauda l superior vena cava. Mild thoracic spondylosis. ABDOMEN/PELVIS CT: Again seen is prominent intra and extrahepatic biliary ductal dilation with pneumobilia. There is a p ercutaneous biliary stent which extends into the common bile duct, through the ampulla with distal ti p in the third portion of the duodenum. Spleen and bilateral adrenal glands are normal. A few small d ystrophic calcifications in the pancreas likely sequela of chronic pancreatitis. Multiple bilateral r enal cysts measuring up to 8 cm on the left. Bilateral nonobstructing nephrolithiasis with 3 stones i n the right kidney measuring up to 4 mm and single 6 mm stone in the left kidney. Bowels including th e appendix are normal. Bladder is normal. Prostatomegaly. No free intraperitoneal gas or fluid. No pa thologically enlarged abdominal or pelvic lymphadenopathy. Posterior decompression at L5 and L5-S1 an terior spinal fusion. Severe bilateral hip osteoarthritis. There are few scattered bone islands in th e pelvis. 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 IMPRESSION: 1. Emphysema with extensive new consolidation the bilateral upper lobes consistent with pneumonia. 2. Intra and extra hepatic ductal or ductal dilation and pneumobilia with unchanged. Unchanged biliar y stent in expected position. 3. Bilateral nonobstructing nephrolithiasis. 4. Prostatomegaly. 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 Emphysema with extensive new consolidation the bilateral upper lobes consist ent with pneumonia. 2. Intra and extra hepatic ductal or ductal dilation and pneumobilia with uncha nged. Unchanged biliary stent in expected position. 3. Bilateral nonobstructing nephrolithiasis. 4. Prostatomegaly.
--- OUTSIDE RECORDS SUMMARY | 2024-07-27 11:48 | XMS_ITS | Encounter Summary ---
Author Organization [facility] [facility] Address [address] [place] [address] Care Team Providers Care Chemical Mixer Name Role Phone Jose Rivera MD Primary Care Provider Encounter Details Date Type Department Care Team (Late st Contact Info) Description 07/23/2024 Orders Only [facility] Oncology and Hematology - Jose [address] [facility] [address] [place] [address] Shayan Brown MD [address] [facility] [address] [place] [address] Small cell lung cancer (CMS/HCC) Social History Tobacco Use Types Packs/Day Years Used Date Smoking Tobacco: Former Cigarettes 1 50 0 06/13/1967 - 06/13/2017 Smokeless Tobacco: Never Alcohol Use Standard Drinks/Week Comments Not Currently 0 (1 standard drink = 0.6 oz pur e alcohol) socially Sex and Gender Information Value Date Recorded Sex Assigned at Male 02/18/2024 5:39 PM CDT Legal Sex Male 8:38 AM CDT Gender Identity Male 02/18/2024 5:39 PM CDT Sexual Orientation Straight 02/18/2024 5: 39 PM CDT documented as of this encounter Plan of Treatment Upcoming Encounters Date Type Department Care Team (Late st Contact Info) Description 08/08/2024 9:45 AM 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 Office Visit [facility] Oncology and Hematology [facility] [address] [place] [address] Shayan Brown MD [address] [place] [address] documented as of this encounter Visit Diagnoses Diagnosis Small cell lung cancer (CMS/HCC) Malignant neoplasm of bronchus and lung, unspecified site documented in this encounter Care Teams Chemical Mixer Relationship Specialty Start Date End Date Jose Rivera MD [address] [place], [place] [id number] PCP - General Family Practice 12/29/23 documented as of this encounter
--- OUTSIDE RECORDS SUMMARY | 2024-07-27 11:48 | XMS_ITS | Clinical Summary ---
Author Organization [facility] Address [address] [place] [id number] Phone Care Team Providers Care Knuckle Strap Sewer Name Role Phone Jose Rivera MD Primary Care Provider [phone] Allergies Active Allergy Reactions Criticality Noted Date Comments Lisinopril Swelling 03/06/2021 Reaction: Swelling, Penicillins Hives High 03/06/2021 Reaction: Hives, Sulfa Antibiotics Hives Medium 10/21/2019 Hives Medications Medication Sig Dispensed Refills Start Date End Date Status albuterol (2.5 MG/3ML) 0.083% nebulizer solution Inhale 2.5 mg 4 times daily 03/26/2019 Active amLODIPine (NORVASC) 10 MG tablet 02/12/2021 Active doxazosin (CARDURA) 8 MG tablet 02/20/2021 Active fluticasone (FLONASE) 50 MCG/ACT nasal spray Administer 1 spray into affected nostril(s) 12/24/2018 Active Fluticasone-Umeclidi n-Vilant (Trelegy Ellipta) 100-62.5-25 MCG/INH aerosol powder Inhale 1 puff daily 12/01/2018 Activ e ipratropium (ATROVENT) 0.02 % nebulizer solution 12/12/2020 Active levocetirizine (XYZAL) 5 MG tablet 01/30/2021 Activ e methocarbamol (ROBAXIN) 500 MG tablet 01/22/2021 Active montelukast (SINGULAIR) 10 MG tablet 01/07/2021 Active Daliresp 500 MCG tablet 12/13/2020 Active sildenafil (VIAGRA) 100 MG tablet 02/02/2021 Active dipyridamole-aspirin (AGGRENOX) 25-200 MG per 12 hr capsule Take 1 capsule by mouth 2 (two) times a day Active ergocalciferol (VITAMIN D-2) 1.25 MG (90118 UT) capsule Take 50,000 Units by mouth 1 (one) time per week Active albuterol HFA (PROVENTIL HFA) 108 (90 Base) MCG/ACT inhaler 05/29/2021 Active budesonide (PULMICORT) 0.5 MG/2ML nebulizer solution 04/03/2021 Active Active Problems Problem Noted Date Diagnosed Date Chronic respiratory failure with hypoxia 019 Overview (03/06/2021): Last Assessment & Plan: Continue with 2 L of supplemental oxygen all the times. Cigarette smoker 02/26/2019 Overview (03/06/2021): Last Assessment & Plan: CT scan of the chest done in December 2018 does not show any concerning pulmonary nodules. Will repeat CT scan of the chest for lung cancer screening later next year. Displacement of lumbar intervertebral disc 04/22 Chronic pain 01/07/2013 Lumbar post-laminectomy syndrome 01/07/2013 Lumbosacral spondylosis without myelopathy 01/07 Sciatica 01/07/2013 Chronic obstructive pulmonary disease 12/08/2009 Overview (03/06/2021): Last Assessment & Plan: Continue with Fernie and la bryan. Hypertension 12/08/2009 Lumbago 12/08/2009 Pain in limb 12/08/2009 Immunizations Name Administration Dates Next Due Sars-cov-2, Unspecified 08/20/2020 Zoster Recombinant 02/27/2019 Family History Medical History Relation Comments End stage renal disease Brother Relation Status Comments Brother Social History Tobacco Use Types Packs/Day Years Used Date Smoking Tobacco: Former Smokeless Tobacco: Never Alcohol Use Standard Drinks/Week Comments Yes 0 (1 standard drink = 0.6 oz pur e alcohol) social use Sex and Gender Information Value Date Recorded Sex Assigned at Not on file Gender Identity Not on file Sexual Orientation Not on file Last Filed Vital Signs Vital Sign Reading Time Taken Comments Blood Pressure 134/70 02/24/2022 11:29 AM CDT Pulse - - Temperature 36.7 C (98.1 F) 02/24/2022 11:29 AM CDT Respiratory Rate 18 02/24/2022 11:29 AM CDT Oxygen Saturation - - Inhaled Oxygen Concentration - - Weight 96.6 kg (213 lb) 02/24/2022 11:29 AM CDT Height 172.7 cm (5' 8 ) 02/24/2022 11:29 AM CDT Body Mass Index 32.39 02/24/2022 11:29 AM CDT Plan of Treatment Health Maintenance Due Date Last Done Comments Pneumococcal PPSV23/PCV13 65 + Years / Low and Medium Risk (1 of 4 - PCV) 12/05/2015 Influenza Vaccine (#1) 2024 Care Teams Knuckle Strap Sewer Relationship Specialty Start Date End Date Jose Rivera MD [address] [place] [phone] PCP - General Internal Medicine 01/05/21
--- OUTSIDE RECORDS SUMMARY | 2024-07-27 11:48 | XMS_ITS | Encounter Summary ---
Author Organization [facility] Healthcare Address [address] [place] [address] Care Team Providers Care Robotic Weld Technician Name Role Phone Jose Rivera MD Primary Care Provider Justin Miller MD Unavailable Shayan Brown MD Unavailable [phone] Encounter Details Date Type Department Care Team (Late st Contact Info) Description 06/04/2024 Telephone [facility] - Interventional Radiology [address] [place] [address] Pearl Goldstein RN Social History Tobacco Use Types Packs/Day Years Used Date Smoking Tobacco: Former Cigarettes 1 7.1 2 018 - 1965 Passive Smoke Exposure: Never Smokeless Tobacco: Never Alcohol Use Standard Drinks/Week Comments Yes 0 (1 standard drink = 0.6 oz pur e alcohol) socially OASIS D0700: Social Isolation Answer Da te Recorded Frequency of experiencing loneliness or isolatio n Never 04/12/2023 OASIS A1250: Transportation Answer Date Recorded Lack of Transportation (Medical) No 04/12/2023 Lack of Transportation (Non-Medical) No 04/12/2023 Patient Unable or Declines to Respond No 04/12/2023 OASIS B1300: Health Literacy Answer Ministerio e Recorded Frequency of needing help to read materials from doctor or pharmacy Never 04/12/2023 Social Connection and Isolat ion Panel [NHANES] Answer Date Recorded In a typical week, how many times do you talk on the phone with family, friends, or neighbors? More than three times a week 02/03/2023 How often do you get togethe r with friends or relatives? Never 02/03/2023 How often do you attend chur ch or mandaeism services? Never 02/03/2023 Do you belong to any clubs o r organizations such as shinto groups, unions, fraternal or athletic groups, or school groups? No 02/03/2023 How often do you attend meet ings of the clubs or organizations you belong to? Never 02/03/2023 Are you , , di vorced, , never , or living with a partner? 02/03/2023 AUDIT-C Answer Date Recorded Q1: How often do you have a drink containing alc ohol? Monthly or less 04/11/2023 Q2: How many drinks containi ng alcohol do you have on a typical day when you are drinking? 1 or 2 04/11/2023 Q3: How often do you have si x or more drinks on one occasion? Never 04/11/2023 Overall Financial Resource Strain (CARDIA) Answe r Date Recorded How hard is it for you to pa y for the very basics like food, housing, medical care, and heating? Not hard at all 02/03/2023 Hunger Vital Sign Answer Date Recorded Within the past 12 months, y ou worried that your food would run out before you got the money to buy more. Never true 02/04/20 23 Within the past 12 months, t he food you bought just didn't last and you didn't have money to get more. Never true 02/03/2023 PRAPARE - Transportation Answer Date Re corded In the past 12 months, has l ack of transportation kept you from medical appointments or from getting medications? No 01/12 In the past 12 months, has l ack of transportation kept you from meetings, work, or from getting things needed for daily living? No 02/03/2023 Housing Stability Vital Sign Answer Ministerio e Recorded In the last 12 months, was t here a time when you were not able to pay the mortgage or rent on time? No 02/03/2023 In the last 12 months, how many places have you lived? 1 02/03/2023 In the last 12 months, was t here a time when you did not have a steady place to sleep or slept in a [facility] (including now)? No 02/03/2023 Personal Safety Answer Date Recorded Have you ever been in or are you currently in a harmful physical or emotional relationship or is someone making you feel afraid or unsafe? 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 Author CCM Chronic Pain Care Plan Chronic Care Management Improving( 9:19 AM CDT) No Genevieve Rivera, RN Note: Problem: Chronic Pain Goals: 1. Minimize further functional decline 2. Maximize quality of life 3. Control pain Strategies: - Activity/exercise program recommendation - Conservative stepwise pain medicine strategy with multi-disciplinary approach - Recommend healthy lifestyle strategies and compensatory methods as needed documented as of this encounter Visit Diagnoses Not on filedocumented in this encounter Care Teams Robotic Weld Technician Relationship Specialty Start Date End Date Jose Rivera MD [address] [place] [id number] PCP - General 08/29/17 [place] [address] [place] [address] Consulting Physician Gastroenterology 02/08/23 Shayan Brown MD [address] [place] [id number] Referring Physician Hematology 01/13/24 documented as of this encounter
--- OUTSIDE RECORDS SUMMARY | 2024-07-27 11:48 | XMS_ITS | Clinical Summary ---
Author Organization [facility] Joyce Kingsley Address [address] [address] Care Team Providers Care Heavy Equipment Operator/Paver Name Role Phone Jose Rivera MD Primary Care Provider Allergies Active Allergy Reactions Criticality Noted Date Comments Lisinopril Swelling Low 05/17/2016 Reaction: Swelling, Reaction: Swelling, Penicillins Hives High 05/17/2016 Reaction: Hives, Reaction: Hives, Sulfa (Sulfonamide Antibiotics) Hives High 01/03/2024 Medications albuterol (PROVENTIL,VENTOL IN) 2.5 mg /3 mL (0.083 %) Solution for Nebulization Take 2.5 mg by inhalation one time only. Active montelukast (SINGULAIR) 10 mg tablet Take 10 mg by mouth daily at bedtime. Active CALCIUM CARBONATE-VITAMIN D3 ORAL Take by mouth. Activ e metoprolol tartrate (LOPRESSOR) 25 mg tablet Take 25 mg by mouth 2 times daily. Active omeprazole (PriLOSEC) 40 mg Capsule, Delayed Release(E.C.) Take 40 mg by mouth daily. Active arformoteroL (BROVANA) 15 mcg/2 mL Solution for Nebulization Take 15 mcg by inhalation one time only. Active budesonide (PULMICORT RESPULE) 0.25 mg/2 mL Suspension for Nebulization Take by inhalation 2 times daily. Active baclofen (LIORESAL) 20 mg tablet Take by mouth. Activ e revefenacin (YUPELRI INHALATION) Take by inhalation. Active sildenafiL (VIAGRA) 100 mg tablet Take 100 mg by mouth 1 time daily as needed for Erectile Dysfunction. Active levoFLOXacin (LEVAQUIN) 750 mg tablet Take 750 mg by mouth daily. Active doxazosin (CARDURA) 8 mg tablet Take 8 mg by mouth daily. Active amLODIPine (NORVASC) 10 mg tablet Take 10 mg by mouth daily. Active aspirin (ECOTRIN EC) 81 mg Tablet, Delayed Release (E.C.) Take 81 mg by mouth daily. Active ondansetron (ZOFRAN ODT) 8 mg Tablet, Rapid DissolveIndicatio ns:Small cell lung cancer (CMS/HCC) Dissolve 1 tablet on top of tongue then swallow with saliva every 8 hours as needed for nausea or vomiting 30 Tablet 1 4 Active lidocaine-priloca ine (EMLA) 2.5-2.5 % CreamIndications: Small cell lung cancer (CMS/HCC) Apply a quarter size amount to port site 30 minutes before access. 30 Gram 1 4 Active zolpidem (AMBIEN) 5 mg tabletIndications :Insomnia, unspecified type Take 1 Tablet (5 mg) by mouth nightly as needed for Insomnia. 30 Tablet 1 4 Active Active Problems No known active problems Encounters Date Type Department Care Team Description 07/23/2024 Orders Only [facility] Oncology and Hematology - [address] [place] [address] Shayan Brown MD Small cell lung cancer (CMS/HCC) 07/10/2024 Orders Only [facility] Oncology and Hematology - [address] [place] [address] Shayan Brown MD 07/09/2024 Orders Only [facility] Oncology and Hematology - [address] [place] [address] Shayan Brown MD Small cell lung cancer (CMS/HCC) 07/05/2024 External Device Data STL ABSTRACTION Provider, Abstract 06/28/2024 8:45 AM QUALITY CONTROL TECH Office Visit [facility] Oncology and Hematology - [address] Shayan Brown MD Small cell carcinoma of lung, unspecified laterality, unspecified part of lung (CMS/HCC) (Primary Dx) 06/28/2024 Orders Only [facility] Oncology and Hematology - Jose [address] Shayan Brown MD 06/28/2024 Abstract [facility] Oncology and Hematology - Jose [address] [place] [phone] Shayan Brown MD 06/28/2024 Telephone [facility] Oncology and Hematology - Jose [address] Shayan Brown MD Lab Results 06/27/2024 Orders Only [facility] Oncology and Hematology - Jose [address] Shayan Brown MD 06/26/2024 Orders Only [facility] Oncology and Hematology - Jose [address] Shayan Brown MD 06/25/2024 Orders Only [facility] Oncology and Hematology - Jose [address] [place] [phone] Shayan Brown MD Small cell lung cancer (CMS/HCC) 06/11/2024 Orders Only [facility] Oncology and Hematology - Jose [address] [place] [id number] Shayan Brown MD Small cell lung cancer (CMS/HCC) 05/28/2024 Orders Only [facility] Oncology and Hematology - [address] [place] [phone] Shayan Brown MD Small cell lung cancer (CMS/HCC) 05/23/2024 Orders Only [facility] Oncology and Hematology - [address] Shayan Brown MD Chronic anemia (Primary Dx) 05/23/2024 Orders Only [facility] Oncology and Hematology - Jose [address] Shayan Brown MD 05/22/2024 9:45 AM QUALITY CONTROL TECH Office Visit [facility] Oncology and Hematology - [address] Shayan Brown MD Small cell carcinoma of lung, unspecified laterality, unspecified part of lung (CMS/HCC) (Primary Dx) 05/22/2024 Orders Only [facility] Oncology and Hematology - [address] Shayan Brown MD 05/21/2024 Orders Only [facility] Oncology and Hematology - [address] Shayan Brown MD 05/17/2024 Abstract [facility] Oncology and Hematology - [address] Shayan Brown MD 05/17/2024 Orders Only [facility] Oncology and Hematology - [address] Shayan Brown MD 05/16/2024 Telephone [facility] Oncology and Hematology - [address] Shayan Brown MD Lab Results 05/14/2024 Orders Only [facility] Oncology and Hematology - [address] [place] [phone] Shayan Brown MD Small cell lung cancer (CMS/HCC) 05/02/2024 Orders Only [facility] Oncology and Hematology - [address] [place] [address] Shayan Brown MD 05/01/2024 Orders Only [facility] Oncology and Hematology [facility] [address] [place] [address] Shayan Brown MD 04/30/2024 10:15 AM QUALITY CONTROL TECH Office Visit [facility] Oncology and [facility] [address] [place] [address] Shayan Brown MD Small cell lung cancer (CMS/HCC) from Last 3 Months Family History Medical History Relation Name Comments No Known Problems Brother 1 Prostate Cancer Brother 2 No Known Problems Brother 3 Diabetes Brother 4 No Known Problems Child 1 No Known Problems Child 2 No Known Problems Child 3 No Known Problems Child 4 No Known Problems Child 5 No Known Problems Child 6 No Known Problems Child 7 Pancreatic Cancer Father Heart Disease Mother Heart Disease Sister Relation Name Status Comments Brother 1 Alive Brother 2 Alive Brother 3 Alive Brother 4 Child 1 Alive Child 2 Alive Child 3 Alive Child 4 Alive Child 5 Alive Child 6 Alive Child 7 Alive Father Mother Sister Alive Social History Tobacco Use Types Packs/Day Years Used Date Smoking Tobacco: Former Cigarettes 1 50 0 06/13/1967 - 06/13/2017 Smokeless Tobacco: Never Tobacco Cessation:Counseling Given: Not Answered Alcohol Use Standard Drinks/Week Comments Not Currently 0 (1 standard drink = 0.6 oz pur e alcohol) socially Sex and Gender Information Value Date Recorded Sex Assigned at Male 02/18/2024 5:39 PM CDT Legal Sex Male 8:38 AM CDT Gender Identity Male 02/18/2024 5:39 PM CDT Sexual Orientation Straight 02/18/2024 5: 39 PM CDT Last Filed Vital Signs Vital Sign Reading Time Taken Comments Blood Pressure 118/73 06/28/2024 8:45 AM QUALITY CONTROL TECH Pulse 79 06/28/2024 8:45 AM QUALITY CONTROL TECH Temperature 36.7 C (98 F) 06/28/2024 8:45 AM QUALITY CONTROL TECH Respiratory Rate 16 06/28/2024 8:45 AM QUALITY CONTROL TECH Oxygen Saturation 91% 06/28/2024 8:45 AM QUALITY CONTROL TECH Inhaled Oxygen Concentration - - Weight 80.7 kg (178 lb) 06/28/2024 8:45 AM QUALITY CONTROL TECH Height 172.7 cm (5' 8 ) 01/03/2024 1:56 PM CDT Body Mass Index 27.06 01/03/2024 1:56 PM CDT Plan of Treatment Upcoming Encounters Date Type Department Care Team (Late st Contact Info) Description 08/08/2024 9:45 AM QUALITY CONTROL TECH Office Visit [facility] Oncology and Hematology - Jose [address] [facility] [address] [place] [address] Shayan Brown MD [address] [facility] [address] [place] [address] Health Maintenance Due Date Last Done Comments DTAP/TDAP/TD VACCINES (1 - Tdap) 1969 PNEUMOCOCCAL VACCINE 65+ YEA RS (1 of 2 - PCV) 1969 FIT-DNA Q 3 years 12/05/1995 FIT/FOBT Q 1 year 12/05/1995 Flex Sig/CT Colonography Q 5 years 12/05/1995 RSV VACCINE (60+ or ) (1 - Risk 60-74 years 1-dose series) 2010 ZOSTER VACCINE (2 of 2) 04/24/2019 02/27/2019 INFLUENZA VACCINE (#1) 2024 Medicare Advantage (OR) Prev entative Visit/Annual Wellness Visit 06/13/2024 COLORECTAL SCREENING 05/12/2026 05/12/2016 Colorectal Cancer Screening 05/12/2026 Abdominal Aortic Aneurysm (AAA) Screening Completed 04/14/2018, 04/14/2018 Procedures Procedure Name Priority Date/Time Associated Diagnosis Comments BASIC METABOLIC PANEL Routine 07/09/2024 9:34 AM QUALITY CONTROL TECH COMPREHENSIVE METABOLIC PANEL Routine 07/09/2024 9:31 AM QUALITY CONTROL TECH BASIC METABOLIC PANEL Routine 06/28/2024 4:08 PM QUALITY CONTROL TECH CHG BLOOD TYPING, ANTIGEN SCREEN Routine 06/26/2024 3:52 PM QUALITY CONTROL TECH COMPREHENSIVE METABOLIC PANEL Routine 06/26/2024 3:16 PM QUALITY CONTROL TECH BASIC METABOLIC PANEL Routine 06/26/2024 3:01 PM QUALITY CONTROL TECH BASIC METABOLIC PANEL Routine 06/26/2024 2:59 PM QUALITY CONTROL TECH CBC WITH DIFFERENTIAL Routine 06/26/2024 2:40 PM QUALITY CONTROL TECH IRON LEVEL Routine 06/26/2024 12:16 PM QUALITY CONTROL TECH CBC WITH DIFFERENTIAL Routine 05/21/2024 3:54 PM QUALITY CONTROL TECH COMPREHENSIVE METABOLIC PANEL Routine 05/21/2024 2:37 PM QUALITY CONTROL TECH BASIC METABOLIC PANEL Routine 05/21/2024 1:00 PM QUALITY CONTROL TECH HEMOGLOBIN AND HEMATOCRIT Routine 2023 11:29 AM QUALITY CONTROL TECH BASIC METABOLIC PANEL Routine 05/16/2024 4:06 PM QUALITY CONTROL TECH CBC WITH DIFFERENTIAL Routine 05/16/2024 2:53 PM QUALITY CONTROL TECH BASIC METABOLIC PANEL Routine 04/30/2024 4:19 PM QUALITY CONTROL TECH CBC WITH DIFFERENTIAL Routine 04/30/2024 9:39 AM QUALITY CONTROL TECH from Last 3 Months Results * BASIC METABOLIC PANEL (07/09/2024 9:34 AM QUALITY CONTROL TECH) Only the most recent of7 resultswithin the time period is included. Blood us Shayan Brown MD CHEMISTRY ORDERABLES Final Resu lt * COMPREHENSIVE METABOLIC PANEL (07/09/2024 9:31 AM QUALITY CONTROL TECH) Only the most recent of3 resultswithin the time period is included. Blood Result Manish Brown MD CHEMISTRY ORDERABLES Final Resu lt * CHG BLOOD TYPING, ANTIGEN SCREEN (06/26/2024 3:52 PM QUALITY CONTROL TECH) Result Manish Brown MD CHG - LABORATORY Final Result * CBC WITH DIFFERENTIAL (06/26/2024 2:40 PM QUALITY CONTROL TECH) Only the most recent of4 resultswithin the time period is included. Blood us Shayan Brown MD HEMATOLOGY ORDERABLES Final Res ult * IRON LEVEL (06/26/2024 12:16 PM QUALITY CONTROL TECH) Blood us Shayan Brown MD CHEMISTRY ORDERABLES Final Resu lt * HEMOGLOBIN AND HEMATOCRIT (05/18/2024 11:29 AM QUALITY CONTROL TECH) Blood Shayan Brown MD HEMATOLOGY ORDERABLES Final Res ult from Last 3 Months Insurance [employer] [facility] MEDICAID [place] Care Teams Heavy Equipment Operator/Paver Relationship Specialty Start Date End Date Jose Rivera MD [address] [place] [address] PCP - General Family Practice 12/29/23
--- OUTSIDE RECORDS SUMMARY | 2024-07-27 11:48 | XMS_ITS | Clinical Summary ---
Author Organization [place] [id number] Address [address] [place] [address] Care Team Providers Care Ammunition Specialist Name Role Phone Jose Rivera MD Primary Care Provider [phone] Justin Miller MD Unavailable Shayan Brown MD Unavailable [phone] Allergies Active Allergy Reactions Criticality Noted Date Comments Lisinopril Swelling Reaction: Swelling, Penicillins Hives High Reaction: Hives, Sulfa (Sulfonamide Antibiotics) Hives Medium 10/21/2019 Hives Hives Medications amLODIPine (NORVASC) 10 mg tablet Take 1 tablet (10 mg total) by mouth daily Active aspirin 81 mg tablet daily. Active sildenafil (VIAGRA) 100 mg tabletIndications: Erectile Dysfunction Take 1 tablet (100 mg total) by mouth as needed for erectile dysfunction Active fluticasone propionate (FLONASE) 50 mcg/actuation nasal sprayIndications:A llergic Conjunctivitis Administer 1 spray into each nostril daily as needed for allergies 12/25/19 19 Active albuterol (PROVENTIL,VENTOLI N) 2.5 mg /3 mL (0.083 %) nebulizer solution Take 3 mL (2.5 mg total) by nebulization 4 (four) times a day For treatment of COPD, J44.9 360 mL 3 03/26/20 19 Active levocetirizine (XYZAL) 5 mg tabletIndications: Allergic Conjunctivitis Take 1 tablet (5 mg total) by mouth bedtime 11/19/19 21 Active montelukast (SINGULAIR) 10 mg tabletIndications: Exercise-Induced Bronchospasm Prevention Take 1 tablet (10 mg total) by mouth nightly 01/08/20 21 Active Daliresp 500 mcg tabletIndications: Prevention of Bronchospasm with Chronic Bronchitis Take 1 tablet (500 mcg total) by mouth bedtime 12/14/19 21 Active ergocalciferol (VITAMIN D) 50,000 unit capsule Take 1 capsule (50,000 Units total) by mouth once a week Take 50,000 Units by mouth once a week Active albuterol HFA (PROVENTIL HFA,VENTOLIN HFA,PROAIR HFA) 90 mcg/actuation inhaler Inhale 2 puffs every 4 (four) hours as needed for shortness of breath 04/08/20 21 Active doxazosin (CARDURA) 8 mg tabletIndications: hypertension Take 1 tablet (8 mg total) by mouth nightly Daily 02/21/20 21 Active metoprolol tartrate (LOPRESSOR) 25 mg immediate release tabletIndications: hypertension Take 1 tablet (25 mg total) by mouth 2 (two) times a day 01/05/20 23 Active OMEPRAZOLE ORALIndications:GI Bleed Take 40 mg by mouth daily. Indications: GI Bleed Active methocarbamoL (ROBAXIN) 500 mg tabletIndications: Muscle Spasm Take 1-2 tablets (500-1,000 mg total) by mouth 3 (three) times a day as needed for muscle spasms 180 tablet 1 04/11/20 23 Active revefenacin (Yupelri) 175 mcg/3 mL solution for nebulization Inhale 175 mcg daily Active budesonide (PULMICORT) 0.25 mg/2 mL nebulizer solution Take 2 mL (0.25 mg total) by nebulization 2 (two) times a day Rinse mouth with water after use. Do not swallow. Active arformoteroL (BROVANA) 15 mcg/2 mL nebulizer solution Take 4 mL (30 mcg total) by nebulization 2 (two) times a day Active baclofen (LIORESAL) 10 mg tablet TAKE 1 TABLET BY MOUTH THREE TIMES DAILY FOR HICCUPS 12/13/19 24 Active sodium chloride 0.9% injection Administer 10 mL into catheter daily Flush SLOWLY (over 30 seconds). 900 mL 07/13/19 25 025 Active Active Problems Problem Noted Date Diagnosed Date Hilar lymphadenopathy 01/20/2024 Mass of upper lobe of right lung 01/12/2024 Jaundice 02/01/2023 Chronic obstructive pulmonary disease 04/23/2021 Chronic respiratory failure with hypoxia (CMS/HC C) 02/26/2019 Assessment & Plan (03/03/2019 4:42 PM CDT): Continue with 2 L of supplemental oxygen all the times. Smoking greater than 40 pack years 02/26/2019 Assessment & Plan (03/03/2019 4:43 PM CDT): CT scan of the chest done in December 2018 does not show any concerning pulmonary nodules. Will repeat CT scan of the chest for lung cancer screening later next year. Cigarette smoker 02/26/2019 Overview (04/23/2021): Last Assessment & Plan: CT scan of the chest done in December 2018 does not show any concerning pulmonary nodules. Will repeat CT scan of the chest for lung cancer screening later next year. Displacement of lumbar intervertebral disc 04/22 Chronic pain 01/07/2013 Postlaminectomy syndrome of lumbar region 2012 Sciatica 01/07/2013 Spondylosis of lumbar region without myelopathy or radiculopathy 01/07/2013 Lumbar post-laminectomy syndrome 01/07/2013 Chronic obstructive pulmonary disease 12/08/2009 Assessment & Plan (03/03/2019 4:42 PM CDT): Continue with Trechristiana and la bryan. Pain in extremity 12/08/2009 Hypertension 12/08/2009 Lumbago 12/08/2009 Low back pain 12/08/2009 Pain in limb 12/08/2009 Encounters Date Type Department Care Team Description 07/13/2024 1:41 PM RARE/ENDANGERED SPECIES SPECIALIST - 07/13/2024 11:59 PM RARE/ENDANGERED SPECIES SPECIALIST Hospital Encounter [facility] - Interventional Radiology [address] [place] [phone] Gall bladder inflammation Discharge Disposition: Discharge to home or self care 07/12/2024 Telephone [facility] - Interventional Radiology [address] [place] [phone] Juan Sierra RN 06/04/2024 1:44 PM RARE/ENDANGERED SPECIES SPECIALIST - 06/04/2024 11:59 PM RARE/ENDANGERED SPECIES SPECIALIST Hospital Encounter [facility] - Interventional Radiology [address] [place] [phone] Gall bladder inflammation Discharge Disposition: Discharge to home or self care 06/04/2024 Orders Only [facility] - Interventional Radiology [address] [place] [phone] Park Johns RN 06/04/2024 Telephone [facility] - Interventional Radiology [address] [place] [phone] Pearl Goldstein, ROBEL 06/04/2024 Orders Only [facility] - Interventional Radiology [address] [place] [phone] Pearl Goldstein, RN 05/31/2024 Telephone [facility] - Interventional Radiology [address] [place] [phone] Pearl Goldstein, RN 05/31/2024 Orders Only [facility] - Interventional Radiology [address] [place] [phone] Pearl Goldstein, RN from Last 3 Months Immunizations Name Administration Dates Next Due Sars-CoV-2, Unspecified 08/20/2020 ZOSTER Recombinant 02/27/2019 Surgical History Surgery Date Site/Laterality Comments LUMBAR FUSION Arthrodesis Lumbar - (Added by TW Conv) ANKLE SURGERY 06/13/2015 - 06/12/2016 Left Ankle Surgery - (Added by TW Conv) OK NJX AA&/STRD TFRML EPI LUMBAR/SACRAL 1 LEVEL Corticosteroid Inj Transforaminal Approach Lumbar W/ Fluoroscopic Guidance - (Added by TW Conv) US ABDOMEN COMPLETE W LIVER DOPPLER (C) 04/18/2018 Right CHANGE BILIARY DRAINAGE CATHETER EXTERNAL OR INTERNAL EXTERNAL 03/16/2023 N/A CHANGE BILIARY DRAINAGE CATHETER EXTERNAL OR INTERNAL EXTERNAL 05/23/2023 N/A CHANGE BILIARY DRAINAGE CATHETER EXTERNAL OR INTERNAL EXTERNAL 06/29/2023 N/A CHANGE BILIARY DRAINAGE CATHETER EXTERNAL OR INTERNAL EXTERNAL 09/02/2023 N/A CHANGE BILIARY DRAINAGE CATHETER EXTERNAL OR INTERNAL EXTERNAL 10/14/2023 N/A CHANGE BILIARY DRAINAGE CATHETER EXTERNAL OR INTERNAL EXTERNAL 11/25/2023 N/A CHANGE BILIARY DRAINAGE CATHETER EXTERNAL OR INTERNAL EXTERNAL 01/06/2024 N/A SPINE SURGERY 06/13/1997 - 06/12/1998 L5-S1 fusion with cage CHANGE BILIARY DRAINAGE CATHETER EXTERNAL OR INTERNAL EXTERNAL 03/01/2024 N/A CHANGE BILIARY DRAINAGE CATHETER EXTERNAL OR INTERNAL EXTERNAL 03/25/2024 N/A CHANGE BILIARY DRAINAGE CATHETER EXTERNAL OR INTERNAL EXTERNAL 04/19/2024 N/A CHANGE BILIARY DRAINAGE CATHETER EXTERNAL OR INTERNAL EXTERNAL 04/20/2024 N/A CHANGE BILIARY DRAINAGE CATHETER EXTERNAL OR INTERNAL EXTERNAL 04/23/2024 N/A CHANGE BILIARY DRAINAGE CATHETER EXTERNAL OR INTERNAL EXTERNAL 06/04/2024 N/A CHANGE BILIARY DRAINAGE CATHETER EXTERNAL OR INTERNAL EXTERNAL 07/13/2024 N/A Medical History Medical History Date Comments Personal history of other di seases of the circulatory system History of hypertension - (A dded by SEBASTIAN Coleman) Emphysema of lung (HCC) Chronic pain disorder Pinched nerve right hand Oxygen dependent 3 L cont Low back pain Infectious viral hepatitis hx--t reated successfully Anemia 12/2023 Hypertension 1979 Chronic kidney disease 2018 Chronic kidney disease, stage 3a (HCC) Sleep apnea hsu not use CPAP Family History Medical History Relation Name Comments Cancer Brother 1 Skip Ha Yadiel Colon cancer Brother 1 Skipnicole Cotto Diabetes Brother 2 [place] Dilcia Cotto Stroke Brother 2 Raj Cotto Asthma Father Rev Denys Yadiel Cancer Father Rev tremaine Yadiel Asthma Mother Shanell anitha Yadiel Relation Name Status Comments Brother 1 Skip Ha Yadiel Brother 2 Raj Ha Yadiel Father Rev Denys Cotto Mother Shanell pérezEros Cotto Social History Tobacco Use Types Packs/Day Years [...] often do you attend chur ch or sabianist services? Never 02/03/2023 Do you belong to any clubs o r organizations such as adventism groups, unions, fraternal or athletic groups, or [...] place to sleep or slept in a retirement (including now)? No 02/03/2023 Personal Safety Answer Date Recorded Have you ever been in or are you currently in a harmful physical or emotional relationship or is someone making you feel afraid or unsafe? Denies 07/13/2024 Sex and Gender Information Value Date Recorded Sex Assigned at Not on file Legal Sex Male 1:47 AM RARE/ENDANGERED SPECIES SPECIALIST Gender Identity Not on file Sexual Orientation Not on file Obstetrics History Last Filed Vital Signs Vital Sign Reading Time Taken Comments Blood Pressure 118/76 07/13/2024 2:20 PM RARE/ENDANGERED SPECIES SPECIALIST Pulse 94 07/13/2024 2:20 PM RARE/ENDANGERED SPECIES SPECIALIST Temperature 36.3 C (97.4 F) 07/13/2024 1:52 PM RARE/ENDANGERED SPECIES SPECIALIST Respiratory Rate 18 07/13/2024 2:20 PM RARE/ENDANGERED SPECIES SPECIALIST Oxygen Saturation 96% 07/13/2024 2:20 PM RARE/ENDANGERED SPECIES SPECIALIST Inhaled Oxygen Concentration - - Weight 79.4 kg (175 lb 0.7 oz) 07/13/2024 1:52 P M RARE/ENDANGERED SPECIES SPECIALIST Height 172.7 cm (5' 8 ) 07/13/2024 1:52 PM RARE/ENDANGERED SPECIES SPECIALIST Body Mass Index 26.62 07/13/2024 1:52 PM RARE/ENDANGERED SPECIES SPECIALIST Plan of Treatment Health Maintenance Due Date Last Done Comments Colon Cancer Screening-Colonoscopy 1950 Depression Screening 1950 Prostate Cancer Screening-PSA 1950 Pneumococcal vaccine 65+ (1 of 2 - PCV) 1956 DTaP/Tdap/Td Vaccine (1 - Tdap) 1961 Hepatitis B Screening 1968 Well Visit 65+ 12/05/2015 Zoster Vaccine (2 of 2) 04/24/2019 02/27/2019 Influenza Vaccine (#1) 2024 Fall Risk Assessment 07/13/2025 07/13/2024 Abdominal Aortic Aneurysm (AAA) Screen Completed Hepatitis C Screening Completed 04/14/2018, 018 Goals Goal Patient Goal Type Associated Problems Recent Progress Patient-Stated? Author CCM Chronic Pain Care Plan Chronic Care Management Improving( 9:19 AM CDT) Genevieve Sandra, RN Note: Problem: Chronic Pain Goals: 1. Minimize further functional decline 2. Maximize quality of life 3. Control pain Strategies: - Activity/exercise program recommendation - Conservative stepwise pain medicine strategy with multi-disciplinary approach - Recommend healthy lifestyle strategies and compensatory methods as needed Medical Devices Explanted Type Area Child Life Assistant Device Identifier Shelf Expiration Date Model / Serial / Lot [employer] Advanix 10fr 7cm Rapid Exchange Temporary Taper Tip Thin Wall 2 [id number] - [id number] Explanted:Qty: 1 on 02/01/2023 at [facility] Stent N/A: Bile Duct [employer] 11/17/2024 [id number] / / [id number] Description:Slipped out of d uct Procedures Procedure Name Priority Date/Time Associated Diagnosis Comments CHANGE BILIARY DRAINAGE CATHETER EXTERNAL OR INTERNAL EXTERNAL Schedule Routine, Read Routine (OP Routine) 07/13/2024 2:44 PM RARE/ENDANGERED SPECIES SPECIALIST Gall bladder inflammation CHANGE BILIARY DRAINAGE CATHETER EXTERNAL OR INTERNAL EXTERNAL Schedule Routine, Read Routine (OP Routine) 06/04/2024 2:36 PM RARE/ENDANGERED SPECIES SPECIALIST Gall bladder inflammation HEPATITIS C RNA, QUANTITATIVE, PCR Routine 04/14/2018 9:10 AM CDT from Last 3 Months or Most Recently Relevant to Health Maintenance Results * IR Change Biliary Drainage Catheter External Or Internal External (07/13/2024 2:44 PM RARE/ENDANGERED SPECIES SPECIALIST) Anatomical Region Laterality Modality Body N/A X-Ray Angiograph y 07/13/2024 2:59 PM RARE/ENDANGERED SPECIES SPECIALIST Impressions 07/13/2024 2:59 PM RARE/ENDANGERED SPECIES SPECIALIST Successful biliary catheter change as described above. PLAN: The patient will return for interval biliary drainage catheter exchange in 6-8 weeks. The drain will remain open to gravity drainage for the next 24 hours. If patient remains asymptomatic, the patient will then cap the drain. A spare gravity bag and caps were provided to the patient. Flush catheter with 10 cc saline slowly (over 30 seconds) once daily. 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 The catheter is currently capped and patient reports having to uncap the drain only twice since last exchange on 06/04/2025. The catheter suture has completely pulled through the skin. PROVIDER PRESENCE: Jennifer Perry PA-C, was present from the beginning to the end of the procedure. SEDATION: Local anesthesia. TECHNIQUE: The risks, benefits and alternatives were discussed and informed consent was obtained. Prior to beginning the procedure, Felt Protocol was performed to confirm the patient's identity and the planned procedure. The fluoroscopy time has been recorded in the electronic medical record. Maximum sterile barriers including cap, mask, hand hygiene, sterile gloves, sterile gown, large sterile drape and 2% chlorhexidine for cutaneous antisepsis were used. The patient was brought into the fluoroscopy suite and placed supine on the table. Lidocaine 1% was used for local anesthesia. The catheter was then divided and an Amplatz guidewire in a Bethel catheter were advanced through the catheter under fluoroscopic monitoring. The existing catheter was exchanged over the wire for a new 18-Hong Konger Haroon internal-external biliary drainage catheter with additional sideholes. Limited contrast injection through the catheter under fluoroscopic monitoring confirmed appropriate position of the last side hole within the biliary tree. The catheter was secured in position using TWO 0-Prolene sutures and was connected to a flush adapter and gravity drainage bag. A sterile dressing was applied. ESTIMATED BLOOD LOSS: Minimal. CONDITION: Stable. DISCHARGED TO: Recovery and then home. FINDINGS: Biliary catheter in appropriate position with good antegrade drainage. Last catheter sidehole is appropriately positioned within the biliary tree. 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 The catheter is currently capped and patient reports having to uncap the drain only twice since last exchange on 06/04/2025. The catheter suture has completely pulled through the skin. PROVIDER PRESENCE: Jennifer Perry PA-C, was present from the beginning to the end of the procedure. SEDATION: Local anesthesia. TECHNIQUE: The risks, benefits and alternatives were discussed and informed consent was obtained. Prior to beginning the procedure, Felt Protocol was performed to confirm the patient's identity and the planned procedure. The fluoroscopy time has been recorded in the electronic medical record. Maximum sterile barriers including cap, mask, hand hygiene, sterile gloves, sterile gown, large sterile drape and 2% chlorhexidine for cutaneous antisepsis were used. The patient was brought into the fluoroscopy suite and placed supine on the table. Lidocaine 1% was used for local anesthesia. The catheter was then divided and an Amplatz guidewire in a Bethel catheter were advanced through the catheter under fluoroscopic monitoring. The existing catheter was exchanged over the wire for a new 18-Hong Konger Haroon internal-external biliary drainage catheter with additional sideholes. Limited contrast injection through the catheter under fluoroscopic monitoring confirmed appropriate position of the last side hole within the biliary tree. The catheter was secured in position using TWO 0-Prolene sutures and was connected to a flush adapter and gravity drainage bag. A sterile dressing was applied. ESTIMATED BLOOD LOSS: Minimal. CONDITION: Stable. DISCHARGED TO: Recovery and then home. FINDINGS: Biliary catheter in appropriate position with good antegrade drainage. Last catheter sidehole is appropriately positioned within the biliary tree. IMPRESSION: Successful biliary catheter change as described above. PLAN: The patient will return for interval biliary drainage catheter exchange in 6-8 weeks. The drain will remain open to gravity drainage for the next 24 hours. If patient remains asymptomatic, the patient will then cap the drain. A spare gravity bag and caps were provided to the patient. Flush catheter with 10 cc saline slowly (over 30 seconds) once daily. [facility] - [phone] Electronically signed by: Jennifer Perry PA-C Deevn [facility] IR PROCEDURES Final Re sult * IR Change Biliary Drainage Catheter External Or Internal External (06/04/2024 2:36 PM RARE/ENDANGERED SPECIES SPECIALIST) Anatomical Region Laterality Modality Body N/A X-Ray Angiograph y 06/04/2024 3:18 PM RARE/ENDANGERED SPECIES SPECIALIST Impressions 06/04/2024 3:18 PM RARE/ENDANGERED SPECIES SPECIALIST Successful biliary catheter change as described above. PLAN: The patient will return for interval biliary drainage catheter exchange in 6 weeks. Interventional Radiology will contact patient by phone in 2 days to follow up. Drain should remain to gravity drainage overnight. He may resume capping in the morning provided there is no abdominal pain, fever, chills, nausea or vomiting present. Patient stated understanding of the plan. Flush catheter with 10 cc saline slowly (over 30 seconds) once daily. 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 At his last exchange was upsized to an 18-Hong Konger Haroon catheter with additional sideholes. He has had no issues with leakage since the catheter was last downsized. This catheter is capped today. He states that on occasion he develops abdominal pain and will uncap the catheter with relief of symptoms and then recapped the catheter several hours later without issue. He flushes daily with 10 mL normal saline. PROVIDER PRESENCE: Deven Isaac PA-C, was present from the beginning to the end of the procedure. SEDATION: No sedation TECHNIQUE: The risks, benefits and alternatives were discussed and informed consent was obtained. Prior to beginning the procedure, Felt Protocol was performed to confirm the patient's identity and the planned procedure. The fluoroscopy time has been recorded in the electronic medical record. Maximum sterile barriers including cap, mask, hand hygiene, sterile gloves, sterile gown, large sterile drape and 2% chlorhexidine for cutaneous antisepsis were used. The patient was brought into the fluoroscopy suite and placed supine on the table. Lidocaine 1% was used for local anesthesia. The catheter was then divided and an Bentson guidewire in a Bethel catheter were advanced through the catheter under fluoroscopic monitoring. The existing catheter was exchanged over the wire for a new 18-H[place] Konger Haroon internal-external biliary drainage catheter with additional sideholes. Limited contrast injection through the catheter under fluoroscopic monitoring confirmed appropriate position of the last side hole within the biliary tree. The catheter was secured in position using a 0-Prolene suture and was connected to a flush adapter and gravity drainage bag. A sterile dressing was applied. ESTIMATED BLOOD LOSS: Minimal. CONDITION: Stable. DISCHARGED TO: Recovery and then home. FINDINGS: Biliary catheter in appropriate position with good antegrade drainage. Last catheter sidehole is appropriately positioned within the biliary tree. 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 At his last exchange was upsized to an 18-Hong Konger Haroon catheter with additional sideholes. He has had no issues with leakage since the catheter was last downsized. This catheter is capped today. He states that on occasion he develops abdominal pain and will uncap the catheter with relief of symptoms and then recapped the catheter several hours later without issue. He flushes daily with 10 mL normal saline. PROVIDER PRESENCE: Deven Isaac PA-C, was present from the beginning to the end of the procedure. SEDATION: No sedation TECHNIQUE: The risks, benefits and alternatives were discussed and informed consent was obtained. Prior to beginning the procedure, Felt Protocol was performed to confirm the patient's identity and the planned procedure. The fluoroscopy time has been recorded in the electronic medical record. Maximum sterile barriers including cap, mask, hand hygiene, sterile gloves, sterile gown, large sterile drape and 2% chlorhexidine for cutaneous antisepsis were used. The patient was brought into the fluoroscopy suite and placed supine on the table. Lidocaine 1% was used for local anesthesia. The catheter was then divided and an Bentson guidewire in a Bethel catheter were advanced through the catheter under fluoroscopic monitoring. The existing catheter was exchanged over the wire for a new 18-H[place] Konger Haroon internal-external biliary drainage catheter with additional sideholes. Limited contrast injection through the catheter under fluoroscopic monitoring confirmed appropriate position of the last side hole within the biliary tree. The catheter was secured in position using a 0-Prolene suture and was connected to a flush adapter and gravity drainage bag. A sterile dressing was applied. ESTIMATED BLOOD LOSS: Minimal. CONDITION: Stable. DISCHARGED TO: Recovery and then home. FINDINGS: Biliary catheter in appropriate position with good antegrade drainage. Last catheter sidehole is appropriately positioned within the biliary tree. IMPRESSION: Successful biliary catheter change as described above. PLAN: The patient will return for interval biliary drainage catheter exchange in 6 weeks. Interventional Radiology will contact patient by phone in 2 days to follow up. Drain should remain to gravity drainage overnight. He may resume capping in the morning provided there is no abdominal pain, fever, chills, nausea or vomiting present. Patient stated understanding of the plan. Flush catheter with 10 cc saline slowly (over 30 seconds) once daily. [facility] - [phone] Electronically signed by: Deven Isaac PA-C Deven [facility] IR PROCEDURES Final Re sult * (ABNORMAL) Hepatitis C (HCV) RNA PCR, quantitative (04/14/2018 9:10 AM CDT) HCV RNA IU/mL 54,107 IU/mL 04/16/2018 5:33 PM [facility] HISTORICAL RESULTS HCV RNA log IU/mL 4.73 log IU/mL 018 5:33 PM [employer] [facility] [employer] HISTORICAL RESULTS HCV quant by NAAT interp Detected( H) Not Detected 04/16/2018 5:33 PM [facility] HISTORICAL RESULTS Comment: INTERPRETIVE INFORMATION: HCV by Quantitative NAAT Normal range for this assay is Not Detected . The quantitative range of this assay is 10 - 100,000,000 IU/mL (1.0 - 8.0 log IU/mL). Lower limit of quantitation (LLoQ): 10 IU/mL (1.0 log IU/mL) LLoQ values do not apply to diluted specimens. A result of Not Detected does not rule out the presence of inhibitors in the patient specimen or hepatitis C virus RNA concentrations below the level of detection of the test. Care should be taken when interpreting any single viral load determination. This test should not be used for blood donor screening, associated re-entry protocols, or for screening Human Cell, Tissues and Cellular Tissue-Based Products (HCT/P). Performed by [facility], [address] [place] [address],[place] [address] [email or web address], Aaron Esparza MD, Lab. Director 04/14/2018 9:10 AM CDT 04/14/2018 9:28 AM CDT Amari Frazier MD LAB MICROBIOLOGY - GENERAL [place] [facility] Final Result [facility] HISTORICAL RESULTS from Last 3 Months or Most Recently Relevant to Health Maintenance Insurance IDNC [facility] MEDICARE HMO [facility] MEDICARE O IDPA HUMANA MEDICARE HMO IDPA [facility] MEDICARE O IDPA [id number] DEPT OF LABOR - [facility] WORKERS COMPENSATION GENERIC [address] [address] WORKERS COMPENSATION GENERIC Advance Directives For more information, please contact: [phone] * Full Code (Latest Code Status on File) Date Activated Date Inactivated Comments 03/01/2024 12:06 PM 03/02/2024 4:41 AM * Full Code Date Activated Date Inactivated Comments 10/14/2023 2:16 PM 10/15/2023 4:40 AM * Full Code Date Activated Date Inactivated Comments 09/02/2023 12:45 PM 09/03/2023 4:45 AM * Full Code Date Activated Date Inactivated Comments 06/29/2023 2:10 PM 06/30/2023 4:46 AM * Full Code Date Activated Date Inactivated Comments 02/01/2023 1:22 AM 02/08/2023 5:48 PM Care Teams Ammunition Specialist Relationship Specialty Start Date End Date Jose Rivera MD [address] [place] [address] [phone] PCP - General 08/29/17 [place] [address] [place] [address] Consulting Physician Gastroenterology 02/08/23 Shayan Brown MD [address] [place] [phone] Referring Physician Hematology 01/13/24
--- OUTSIDE RECORDS SUMMARY | 2024-07-27 11:48 | XMS_ITS | Clinical Summary ---
Author Organization [facility] Address [address] [place] [address] Care Team Providers Care Aircraft Engine Installer Name Role Phone Jose Rivera MD Primary Care Provider [phone] John Seth DO Unavailable [phone] Allergies Active Allergy Reactions Criticality Noted Date Comments Lisinopril Unknown 05/17/2016 Penicillins Unknown 05/17/2016 Sulfa Antibiotics Unknown 05/17/2016 Medications albuterol (PROVENTIL, VENTOLIN) (2.5 MG/3ML) 0.083% Nebulizer Soln 2.5 mg by Nebulization route every 6 hours as needed for Wheezing. Active Calcium Carb-Cholecalci ferol (CALCIUM-VITAMI N D) 500-400 MG-UNIT Tablet Take 1 Tab by mouth daily. Active fluticasone-leandro meterol (ADVAIR) 250-50 MCG/DOSE AEROSOL POWDER, BREATH ACTIVATED take 1 Puff by inhalation 2 times daily. Active ALBUTEROL SULFATE IN take 2 Puffs by inhalation as needed. Reported on 09/16/2016 Active doxazosin (CARDURA) 2 MG Tablet Take 4 mg by mouth daily. Active amLODIPine (NORVASC) 10 MG Tablet Take 10 mg by mouth daily. Active methylPREDNISol one (MEDROL DOSPACK) 4 MG Tablet Therapy Pack 7 Active levoFLOXacin (LEVAQUIN) 500 MG Tablet 7 Active Family History Medical History Relation Name Comments Heart Disease Brother Stroke Brother Cancer Father Pancreatic Asthma Mother Relation Name Status Comments Brother Father Mother Social History Tobacco Use Types Packs/Day Years Used Date Smoking Tobacco: Some Days Cigarettes 0.3 40 Smokeless Tobacco: Never Tobacco Cessation:Ready to Q uit: Yes; Counseling Given: Yes Alcohol Use Standard Drinks/Week Comments Yes 0 (1 standard drink = 0.6 oz pur e alcohol) Rare Sex and Gender Information Value Date Recorded Sex Assigned at Not on file Legal Sex Male 9:52 AM CDT Gender Identity Not on file Sexual Orientation Not on file 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 Not on file Not on file Last Filed Vital Signs Vital Sign Reading Time Taken Comments Blood Pressure 144/92 09/16/2016 1:20 PM CDT Pulse 96 09/16/2016 1:20 PM CDT Temperature 36.6 C (97.8 F) 09/16/2016 1:20 PM CDT Respiratory Rate 16 09/16/2016 1:20 PM CDT Oxygen Saturation 94% 09/16/2016 1:20 PM CDT Inhaled Oxygen Concentration - - Weight 93 kg (205 lb 1.6 oz) 09/16/2016 1:20 PM CDT Height 172.7 cm (5' 8 ) 09/16/2016 1:20 PM CDT Body Mass Index 31.19 09/16/2016 1:20 PM CDT Plan of Treatment Health Maintenance Due Date Last Done Comments TdaP Immunization 1950 Cologuard 2000 Immunochemical Fecal Occult Blood 2000 Pneumococcal Immunization (5 0+ years) (1 of 1 - PCV) 2000 Zoster Immunization (1 of 2) 2000 Influenza Immunization (#1) 2024 SARS-COV-2 Immunization (1 - 2023-25 season) 2024 Respiratory Syncytial Virus (RSV) Immunization (Adult) (1 - 1-dose 75+ series) 2025 Colonoscopy 05/12/2026 05/12/2016 Colorectal Cancer Screening 05/12/2026 05/12/2016 Hepatitis B Immunization Aged Out No longer eligible based on patient's age to complete this topic Meningococcal Immunization (ACWY) Aged Out No longer eligible based on patient's age to complete this topic Rotavirus Immunization Aged Out No lo nger eligible based on patient's age to complete this topic Procedures Procedure Name Priority Date/Time Associated Diagnosis Comments COLONOSCOPY Routine 05/12/2016 from Last 3 Months or Most Recently Relevant to Health Maintenance Results * HM COLONOSCOPY (05/12/2016) us Jose Rivera MD PROCEDURE/MINOR SURGICAL ORD ERABLES Final Result from Last 3 Months or Most Recently Relevant to Health Maintenance Insurance MEDICARE C HUMANA Care Teams Aircraft Engine Installer Relationship Specialty Start Date End Date Jose Rivera MD [address] [place] [id number] PCP - General Family Medicine 05/17/16 John Seth DO [address] [place] [address] Gastroenterology 05/17/16
--- OUTSIDE RECORDS SUMMARY | 2024-07-27 11:48 | XMS_ITS | Encounter Summary ---
Author Organization [facility] Healthcare Address [address] [place] [address] Care Team Providers Care Lowerator Operator Name Role Phone Jose Rivera MD Primary Care Provider [phone] Justin Miller MD Unavailable Shayan Brown MD Unavailable [phone] Encounter Details Date Type Department Care Team (Late st Contact Info) Description 03/27/2019 Telephone [facility] [address] [facility] [address] [place] [address] Sumanth Reyes MD [address] [facility] [address] [facility] [phone] [place], [place] [id number] Social History Tobacco Use Types Packs/Day Years Used Date Smoking Tobacco: Former Smokeless Tobacco: Never Alcohol Use Standard Drinks/Week Comments Yes 0 (1 standard drink = 0.6 oz pur e alcohol) socially Sex and Gender Information Value Date Recorded Sex Assigned at Not on file Legal Sex Male 1:47 AM FIRER BOILER Gender Identity Not on file Sexual Orientation [...] on filedocumented in this encounter Care Teams Lowerator Operator Relationship Specialty Start Date End Date Jose Rivera MD [address] [place] [address] PCP - General 08/29/17 [place] [address] [place] [address] Consulting Physician Gastroenterology 02/08/23 Shayan Brown MD [address] [place] [phone] Referring Physician Hematology 01/13/24 documented as of this encounter
--- OUTSIDE RECORDS SUMMARY | 2024-07-27 11:49 | XMS_ITS | Encounter Summary ---
Author Organization [facility] Healthcare Address [address] [place] [address] Care Team Providers Care Real Estate Transaction Coordinator Name Role Phone Jose Rivera MD Primary Care Provider [phone] Justin Miller MD Unavailable [phone] Shayan Brown MD Unavailable [phone] Encounter Details Date Type Department Care Team (Late st Contact Info) Description 04/19/2024 Documentation [facility] - Interventional Radiology [address] [place] [address] Alda Harris RN Social History Tobacco Use Types Packs/Day [...] often do you attend chur ch or samaritan services? Never 02/03/2023 Do you belong to any clubs o r organizations such as baptist groups, unions, fraternal or athletic groups, or [...] place to sleep or slept in a skilled nursing (including now)? No 02/03/2023 Personal Safety Answer Date Recorded Have you ever been in or are you currently in a harmful physical or emotional relationship or is someone making you feel afraid or unsafe? 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
--- OUTSIDE RECORDS SUMMARY | 2024-07-27 11:49 | XMS_ITS | Referral Summary ---
Author Organization [place] [id number] [facility] Address [address] [place] [address] Care Team Providers Care Bacteriologist Fishery Name Role Phone Jose Rivera MD Primary Care Provider Justin Miller MD Unavailable Shayan Brown MD Unavailable [phone] Encounters Date Type Department Care Team Description 07/13/2024 1:41 PM REWRITE EDITOR - 07/13/2024 11:59 PM REWRITE EDITOR Hospital Encounter [facility] - Interventional Radiology [address] [place] [phone] Gall bladder inflammation Discharge Disposition: Discharge to home or self care 07/12/2024 Telephone [facility] - Interventional Radiology [address] [place] [phone] Juan Sierra RN 06/04/2024 Orders Only [facility] - Interventional Radiology [address] [place] [phone] Park Johns RN 06/04/2024 Telephone [facility] - Interventional Radiology [address] [place] [phone] Pearl Goldstein, ROBEL 06/04/2024 1:44 PM REWRITE EDITOR - 06/04/2024 11:59 PM REWRITE EDITOR Hospital Encounter [facility] - Interventional Radiology [address] [place] [phone] Gall bladder inflammation Discharge Disposition: Discharge to home or self care 06/04/2024 Orders Only [facility] - Interventional Radiology [address] [place] [phone] Pearl Goldstein, ROBEL 05/31/2024 Telephone [facility] - Interventional Radiology [address] [place] [phone] Pearl Goldstein, ROBEL 05/31/2024 Orders Only [facility] - Interventional Radiology [address] [place] [phone] Pearl Goldstein, ROBEL from Last 3 Months Allergies Active Allergy Reactions Criticality Noted Date [...] PM CDT): Continue with Trechristiana and la nebalta. Pain in extremity 12/08/2009 Hypertension 12/08/2009 Lumbago 12/08/2009 Low back pain 12/08/2009 Pain in limb 12/08/2009 Immunizations Name Administration Dates Next Due Sars-CoV-2, Unspecified 08/20/2020 ZOSTER Recombinant 02/27/2019 Social History Tobacco Use Types Packs/Day Years [...] often do you attend chur ch or lutheran services? Never 02/03/2023 Do you belong to any clubs o r organizations such as restorationist groups, unions, fraternal or athletic groups, or [...] place to sleep or slept in a [place] [facility] [place] facility (including now)? No 02/03/2023 Personal Safety Answer Date Recorded Have you ever been in or are you currently in a harmful physical or emotional relationship or is someone making you feel afraid or unsafe? Denies 07/13/2024 Sex and Gender Information Value Date Recorded Sex Assigned at Not on file Legal Sex Male 1:47 AM REWRITE EDITOR Gender Identity Not on file Sexual Orientation Not on file Last Filed Vital Signs Vital Sign Reading Time Taken Comments Blood Pressure 118/76 07/13/2024 2:20 PM REWRITE EDITOR Pulse 94 07/13/2024 2:20 PM REWRITE EDITOR Temperature 36.3 C (97.4 F) 07/13/2024 1:52 PM REWRITE EDITOR Respiratory Rate 18 07/13/2024 2:20 PM REWRITE EDITOR Oxygen Saturation 96% 07/13/2024 2:20 PM REWRITE EDITOR Inhaled Oxygen Concentration - - Weight 79.4 kg (175 lb 0.7 oz) 07/13/2024 1:52 P M REWRITE EDITOR Height 172.7 cm (5' 8 ) 07/13/2024 1:52 PM REWRITE EDITOR Body Mass Index 26.62 07/13/2024 1:52 PM REWRITE EDITOR Plan of Treatment Not on file Goals Goal Patient Goal Type Associated Problems [...] as needed Medical Devices Explanted Type Area Research Instrumentation Technician Device Identifier Shelf Expiration Date Model / Serial / Lot [employer] Ian Advanix 10fr 7cm Rapid Exchange Temporary Taper Tip Thin Wall 2 [id number] - [id number] Explanted:Qty: 1 on 02/01/2023 at [facility] Stent N/A: Bile Duct [employer] Ian 11/17/2024 [id number] / / [id number] Description:Slipped out of d uct Procedures Procedure Name Priority Date/Time Associated Diagnosis Comments CHANGE BILIARY DRAINAGE CATHETER EXTERNAL OR INTERNAL EXTERNAL Schedule Routine, Read Routine (OP Routine) 07/13/2024 2:44 PM REWRITE EDITOR Gall bladder inflammation CHANGE BILIARY DRAINAGE CATHETER EXTERNAL OR INTERNAL EXTERNAL Schedule Routine, Read Routine (OP Routine) 06/04/2024 2:36 PM REWRITE EDITOR Gall bladder inflammation HEPATITIS C RNA, QUANTITATIVE, PCR Routine 04/14/2018 9:10 AM CDT from Last 3 Months or Most Recently Relevant to Health Maintenance Results * IR Change Biliary Drainage Catheter External Or Internal External (07/13/2024 2:44 PM REWRITE EDITOR) Anatomical Region Laterality Modality Body N/A X-Ray Angiograph y 07/13/2024 2:59 PM REWRITE EDITOR Impressions 07/13/2024 2:59 PM REWRITE EDITOR Successful biliary catheter change as described above. [...] saline slowly (over 30 seconds) once daily. [facility] - [phone] Electronically signed by: Jennifer Perry PA-C Narrative 07/13/2024 2:59 PM REWRITE EDITOR EXAMINATION: BILIARY TUBE CHANGE HISTORY/INDICATION: 73-year-old male [...] was obtained. Prior to beginning the procedure, [place] Protocol was performed to confirm the patient's [...] divided and an Amplatz guidewire in a Westhope catheter were advanced through the catheter under fluoroscopic monitoring. The existing catheter was exchanged over the wire for a new 18-Somali Haroon internal-external biliary drainage catheter with additional [...] was obtained. Prior to beginning the procedure, [place] Protocol was performed to confirm the patient's [...] divided and an Amplatz guidewire in a Westhope catheter were advanced through the catheter under fluoroscopic monitoring. The existing catheter was exchanged over the wire for a new 18-Somali Haroon internal-external biliary drainage catheter with additional [...] saline slowly (over 30 seconds) once daily. [facility] - [phone] Electronically signed by: Jennifer Perry PA-C Deven [facility] IM[facility] IR PROCEDURES Final Re sult * IR Change Biliary Drainage Catheter External Or Internal External (06/04/2024 2:36 PM REWRITE EDITOR) Anatomical Region Laterality Modality Body N/A X-Ray Angiograph y 06/04/2024 3:18 PM REWRITE EDITOR Impressions 06/04/2024 3:18 PM REWRITE EDITOR Successful biliary catheter change as described above. [...] saline slowly (over 30 seconds) once daily. 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 At his last exchange was upsized to an 18-Somali Haroon catheter with additional sideholes. He has [...] was obtained. Prior to beginning the procedure, [place] Protocol was performed to confirm the patient's [...] The catheter was then divided and an [place] guidewire in a Westhope catheter were advanced through the catheter under fluoroscopic monitoring. The existing catheter was exchanged over the wire for a new 18-Somali Haroon internal-external biliary drainage catheter with additional [...] his last exchange was upsized to an 18-Somali Haroon catheter with additional sideholes. He has [...] was obtained. Prior to beginning the procedure, [place] Protocol was performed to confirm the patient's [...] The catheter was then divided and an [place] guidewire in a Westhope catheter were advanced through the catheter under fluoroscopic monitoring. The existing catheter was exchanged over the wire for a new 18-Somali Haroon internal-external biliary drainage catheter with additional [...] saline slowly (over 30 seconds) once daily. [facility] - [phone] Electronically signed by: Deven Isaac PA-C us [facility]en [facility] IR PROCEDURES Final Re sult * (ABNORMAL) Hepatitis C (HCV) RNA PCR, quantitative (04/14/2018 9:10 AM CDT) HCV RNA IU/mL 54,107 IU/mL HCV RNA log IU/mL 4.73 log IU/mL 018 5:33 PM [facility] HISTORICAL RESULTS HCV quant by NAAT interp Detected( H) Not Detected Comment: INTERPRETIVE INFORMATION: HCV by Quantitative NAAT [...] and Cellular Tissue-Based Products (HCT/P). Performed by [facility], [address] [place] [id number] [email or web address], Aaron Esparza MD, Lab. Director 04/14/2018 9:10 AM CDT 04/14/2018 9:28 AM CDT us Amari Frazier MD LAB MICROBIOLOGY - GENERAL NIKHIL MEYERS Final Result [facility] HISTORICAL RESULTS from Last 3 Months or Most Recently Relevant to Health Maintenance Insurance [facility] HUMANA MEDICARE HMO HUMANA MEDICARE HMO Member Subscriber Plan / Payer ( fective 2019-Present) Name:Lee Cotto Sr. Relation to Subscriber:Self Name:Lee Cotto Sr. Payer ID:[id number] (NAIC) Type:MEDICARE RISK OTHER Address: [address] HUMANA MEDICARE HMO IDPA HUMANA MEDICARE HMO IDPA DEPT OF LABOR - OW WORKERS COMPENSATION GENERIC Advance Directives For more information, please contact: [phone] * Full Code (Latest Code Status on [...] 1:22 AM 02/08/2023 5:48 PM Care Teams Bacteriologist Fishery Relationship Specialty Start Date End Date Jose Rivera MD [address] [place] [id number] PCP - General 08/29/17 [place] [address] [place] [address] Consulting Physician Gastroenterology 02/08/23 Shayan Brown MD [address] [place] [phone] Referring Physician Hematology 01/13/24
--- OUTSIDE RECORDS SUMMARY | 2024-07-27 11:49 | XMS_ITS | Clinical Summary ---
Author Organization [facility] Address [address] [place] [address] Care Team Providers Care Dude Wrangler Name Role Phone Jose Rivera MD Primary Care Provider [phone] Social History Tobacco Use Types Packs/Day Years Used Date Smoking Tobacco: Never Assessed Sex and Gender Information Value Date Recorded Sex Assigned at Not on file Legal Sex Male 7:08 PM CDT Gender Identity Not on file Sexual Orientation Not on file Last Filed Vital Signs Vital Sign Reading Time Taken Comments Blood Pressure 104/64 12/20/2016 10:44 AM CDT Pulse - - Temperature - - Respiratory Rate - - Oxygen Saturation - - Inhaled Oxygen Concentration - - Weight 90.3 kg (199 lb) 12/20/2016 10:44 AM CDT Height 182.9 cm (6') 12/20/2016 10:44 AM CDT Body Mass Index 26.99 12/20/2016 10:44 AM CDT Plan of Treatment Health Maintenance Due Date Last Done Comments Colorectal Cancer Screening Colonoscopy (10 Years) 1950 PHQ-2 (Physician [place]) 1962 Hepatitis C 1968 DTaP, Tdap and Td Vaccines ( 1 - Tdap) 1969 Zoster Vaccines (1 of 2) 2000 Annual Medicare Wellness Visit 12/05/2015 Pneumococcal Vaccine: 65+ Ye ars (1 of 1 - PCV) 12/05/2015 COVID-19 Vaccine ( - 2023-2 5 season) 2024 Influenza Adult (#1) 2024 PHQ-2 (Physician [place]) 06/13/2024 RSV Immunization or 60+ Years (1 - 1-dose 75+ series) 2025 Meningococcal B Vaccine Aged Out No l onger eligible based on patient's age to complete this topic Meningococcal Vaccine Aged Out No yvette oscar eligible based on patient's age to complete this topic RSV Immunizations Under 20 Months Aged Out No longer eligible based on patient's age to complete this topic Insurance MEDICAID HUMANA Care Teams Dude Wrangler Relationship Specialty Start Date End Date Jose Rivera MD [address] [place] [address] PCP - General FAMILY PRACTICE 09/15/22
--- OUTSIDE RECORDS SUMMARY | 2024-07-27 12:57 | XMS_ITS | Clinical Summary ---
Author Organization [facility] Address [address] [place] [address] Phone Care Team Providers Care Professor Of Education Name Role Phone Jose Rivera MD Primary Care Provider [phone] Allergies Active Allergy Reactions Criticality Noted Date [...] day Active ergocalciferol (VITAMIN D-2) 1.25 MG (01437 UT) capsule Take 50,000 Units by mouth [...] 12/05/2015 Influenza Vaccine (#1) 2024 Care Teams Professor Of Education Relationship Specialty Start Date End Date Jose Rivera MD [address] [place] [phone] PCP - General Internal Medicine 01/05/21
--- OUTSIDE RECORDS SUMMARY | 2024-07-27 12:57 | XMS_ITS | Clinical Summary ---
Author Organization 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
--- OUTSIDE RECORDS SUMMARY | 2024-07-27 12:57 | XMS_ITS | Clinical Summary ---
Author Organization [facility] Address [address] [place] [address] Care Team Providers Care Gardening Instructor Name Role Phone Jose Rivera MD Primary Care Provider Social History Tobacco Use Types Packs/Day Years [...] Screening Colonoscopy (10 Years) 1950 PHQ-2 (Physician [place]) 1962 Hepatitis C 1968 DTaP, Tdap and Td Vaccines ( 1 - Tdap) 1969 Zoster Vaccines (1 of 2) 2000 Annual Medicare Wellness Visit 12/05/2015 Pneumococcal Vaccine: 65+ Ye ars (1 of 1 - PCV) 12/05/2015 COVID-19 Vaccine ( - 2023-2 5 season) 2024 Influenza Adult (#1) 2024 PHQ-2 (Physician [place]) 06/13/2024 RSV Immunization or 60+ Years (1 [...] this topic Insurance MEDICAID HUMANA Care Teams Gardening Instructor Relationship Specialty Start Date End Date Jose Rivera MD [address] [place] [address] PCP - General FAMILY PRACTICE 09/15/22
--- OUTSIDE RECORDS SUMMARY | 2024-07-27 12:57 | XMS_ITS | Clinical Summary ---
Author Organization [facility] Joyce Kingsley Address [address] [place] [address] Care Team Providers Care Shake Splitter Name Role Phone Jose Rivera MD Primary Care Provider [phone] Allergies Active Allergy Reactions Criticality Noted Date [...] Department Care Team Description 07/23/2024 Orders Only [facility] Oncology and Hematology - [address] [place] [address] Shayan Brown MD Small cell lung cancer (CMS/HCC) 07/10/2024 Orders Only [facility] Oncology and Hematology - [address] [place] [address] Shayan Brown MD 07/09/2024 Orders Only [facility] Oncology and Hematology - Jose [address] [place] [address] Shayan Brown MD Small cell lung cancer (CMS/HCC) 07/05/2024 External Device Data STL ABSTRACTION Provider, Abstract 06/28/2024 8:45 AM VOCATIONAL TRAINING DIRECTOR Office Visit [facility] Oncology and Hematology - Jose [address] Shayan Brown MD Small cell carcinoma of lung, unspecified laterality, unspecified part of lung (CMS/HCC) (Primary Dx) 06/28/2024 Orders Only [facility] Oncology and Hematology - Jose [address] Shayan Brown MD 06/28/2024 Abstract [facility] Oncology and Hematology - Jose [address] [place] [phone] Shayan Brown MD 06/28/2024 Telephone [facility] Oncology and Hematology - Jose [address] Shayan Brown MD Lab Results 06/27/2024 Orders Only [facility] Oncology and Hematology - Jose [address] Shayan Brown MD 06/26/2024 Orders Only [facility] Oncology and Hematology - Jose [address] Shayan Brown MD 06/25/2024 Orders Only [facility] Oncology and Hematology - Jose [address] [place] [phone] Shayan Brown MD Small cell lung cancer (CMS/HCC) 06/11/2024 Orders Only [facility] Oncology and Hematology - Jose [address] [place] [phone] Shayan Brown MD Small cell lung cancer (CMS/HCC) 05/28/2024 Orders Only [facility] Oncology and Hematology - Jose [address] [place] [phone] Shayan Brown MD Small cell lung cancer (CMS/HCC) 05/23/2024 Orders Only [facility] Oncology and Hematology - Jose [address] Shayan Brown MD Chronic anemia (Primary Dx) 05/23/2024 Orders Only [facility] Oncology and Hematology - Jose [address] Shayan Brown MD 05/22/2024 9:45 AM VOCATIONAL TRAINING DIRECTOR Office Visit [facility] Oncology and Hematology - Jose [address] Shayan Brown MD Small cell carcinoma of lung, unspecified laterality, unspecified part of lung (CMS/HCC) (Primary Dx) 05/22/2024 Orders Only [facility] Oncology and Hematology - Jose [address] Shayan Brown MD 05/21/2024 Orders Only [facility] Oncology and Hematology - Jose [address] Shayan Brown MD 05/17/2024 Abstract [facility] Oncology and Hematology - Jose [address] Shayan Brown MD 05/17/2024 Orders Only [facility] Oncology and Hematology - Jose [address] Shayan Brown MD 05/16/2024 Telephone [facility] Oncology and Hematology - Jose [address] Shayan Brown MD Lab Results 05/14/2024 Orders Only [facility] Oncology and Hematology - Jose [address] [place] [phone] Shayan Brown MD Small cell lung cancer (CMS/HCC) 05/02/2024 Orders Only [facility] Oncology and Hematology - Jose [address] [place] [address] Shayan Brown MD 05/01/2024 Orders Only [facility] Oncology and Hematology [facility] [address] [place] [address] Shayan Brown MD 04/30/2024 10:15 AM VOCATIONAL TRAINING DIRECTOR Office Visit [facility] Oncology and [facility] [address] [place] [address] Shayan Brown MD Small cell lung cancer [...] Comments Blood Pressure 118/73 06/28/2024 8:45 AM VOCATIONAL TRAINING DIRECTOR Pulse 79 06/28/2024 8:45 AM VOCATIONAL TRAINING DIRECTOR Temperature 36.7 C (98 F) 06/28/2024 8:45 AM VOCATIONAL TRAINING DIRECTOR Respiratory Rate 16 06/28/2024 8:45 AM VOCATIONAL TRAINING DIRECTOR Oxygen Saturation 91% 06/28/2024 8:45 AM VOCATIONAL TRAINING DIRECTOR Inhaled Oxygen Concentration - - Weight 80.7 kg (178 lb) 06/28/2024 8:45 AM VOCATIONAL TRAINING DIRECTOR Height 172.7 cm (5' 8 ) 01/03/2024 1:56 PM CDT Body Mass Index 27.06 01/03/2024 1:56 PM CDT Plan of Treatment Upcoming Encounters Date Type Department Care Team (Late st Contact Info) Description 08/08/2024 9:45 AM VOCATIONAL TRAINING DIRECTOR Office Visit [facility] Oncology and Hematology - Jose [address] [facility] [address] [place] [address] Shayan Brown MD [address] [facility] [address] [place] [address] Health Maintenance Due Date Last [...] 02/27/2019 INFLUENZA VACCINE (#1) 2024 Medicare [place] ([place]) Prev entative Visit/Annual Wellness Visit 06/13/2024 COLORECTAL SCREENING 05/12/2026 05/12/2016 Colorectal Cancer Screening 05/12/2026 Abdominal Aortic Aneurysm (AAA) Screening Completed 04/14/2018, 04/14/2018 Procedures Procedure Name Priority Date/Time Associated Diagnosis Comments BASIC METABOLIC PANEL Routine 07/09/2024 9:34 AM VOCATIONAL TRAINING DIRECTOR COMPREHENSIVE METABOLIC PANEL Routine 07/09/2024 9:31 AM VOCATIONAL TRAINING DIRECTOR BASIC METABOLIC PANEL Routine 06/28/2024 4:08 PM VOCATIONAL TRAINING DIRECTOR CHG BLOOD TYPING, ANTIGEN SCREEN Routine 06/26/2024 3:52 PM VOCATIONAL TRAINING DIRECTOR COMPREHENSIVE METABOLIC PANEL Routine 06/26/2024 3:16 PM VOCATIONAL TRAINING DIRECTOR BASIC METABOLIC PANEL Routine 06/26/2024 3:01 PM VOCATIONAL TRAINING DIRECTOR BASIC METABOLIC PANEL Routine 06/26/2024 2:59 PM VOCATIONAL TRAINING DIRECTOR CBC WITH DIFFERENTIAL Routine 06/26/2024 2:40 PM VOCATIONAL TRAINING DIRECTOR IRON LEVEL Routine 06/26/2024 12:16 PM VOCATIONAL TRAINING DIRECTOR CBC WITH DIFFERENTIAL Routine 05/21/2024 3:54 PM VOCATIONAL TRAINING DIRECTOR COMPREHENSIVE METABOLIC PANEL Routine 05/21/2024 2:37 PM VOCATIONAL TRAINING DIRECTOR BASIC METABOLIC PANEL Routine 05/21/2024 1:00 PM VOCATIONAL TRAINING DIRECTOR HEMOGLOBIN AND HEMATOCRIT Routine 2023 11:29 AM VOCATIONAL TRAINING DIRECTOR BASIC METABOLIC PANEL Routine 05/16/2024 4:06 PM VOCATIONAL TRAINING DIRECTOR CBC WITH DIFFERENTIAL Routine 05/16/2024 2:53 PM VOCATIONAL TRAINING DIRECTOR BASIC METABOLIC PANEL Routine 04/30/2024 4:19 PM VOCATIONAL TRAINING DIRECTOR CBC WITH DIFFERENTIAL Routine 04/30/2024 9:39 AM VOCATIONAL TRAINING DIRECTOR from Last 3 Months Results * BASIC METABOLIC PANEL (07/09/2024 9:34 AM VOCATIONAL TRAINING DIRECTOR) Only the most recent of7 resultswithin the time period is included. Blood us Shayan Brown MD CHEMISTRY ORDERABLES Final Resu lt * COMPREHENSIVE METABOLIC PANEL (07/09/2024 9:31 AM VOCATIONAL TRAINING DIRECTOR) Only the most recent of3 resultswithin the time period is included. Blood Result Manish Brown MD CHEMISTRY ORDERABLES Final Resu lt * CHG BLOOD TYPING, ANTIGEN SCREEN (06/26/2024 3:52 PM VOCATIONAL TRAINING DIRECTOR) Result Manish Brown MD CHG - LABORATORY Final Result * CBC WITH DIFFERENTIAL (06/26/2024 2:40 PM VOCATIONAL TRAINING DIRECTOR) Only the most recent of4 resultswithin the time period is included. Blood us Shayan Brown MD HEMATOLOGY ORDERABLES Final Res ult * IRON LEVEL (06/26/2024 12:16 PM VOCATIONAL TRAINING DIRECTOR) Blood us Shayan Brown MD CHEMISTRY ORDERABLES Final Resu lt * HEMOGLOBIN AND HEMATOCRIT (05/18/2024 11:29 AM VOCATIONAL TRAINING DIRECTOR) Blood Shayan Brown MD HEMATOLOGY ORDERABLES Final Res ult from Last 3 Months Insurance [employer] [facility]ID [place] Care Teams Shake Splitter Relationship Specialty Start Date End Date Jose Rivera MD [address] [place] [address] PCP - General Family Practice 12/29/23
--- OUTSIDE RECORDS SUMMARY | 2024-07-27 12:57 | XMS_ITS | Clinical Summary ---
Author Organization [place] [id number] [facility] Address [address] [place] [address] Care Team Providers Care Transitional Living Specialist Name Role Phone Jose Rivera MD Primary Care Provider Jsutin Miller MD Unavailable [phone] Shayan Brown MD Unavailable [phone] Allergies Active Allergy Reactions Criticality Noted [...] Department Care Team Description 07/13/2024 1:41 PM ROSS FURNACE OPERATOR - 07/13/2024 11:59 PM ROSS FURNACE OPERATOR Hospital Encounter [facility] - Interventional Radiology [address] [place] [phone] Gall bladder inflammation Discharge Disposition: Discharge to home or self care 07/12/2024 Telephone [facility] - Interventional Radiology [address] [place] [phone] Juan Sierra RN 06/04/2024 1:44 PM ROSS FURNACE OPERATOR - 06/04/2024 11:59 PM ROSS FURNACE OPERATOR Hospital Encounter [facility] - Interventional Radiology [address] [place] [phone] Gall bladder inflammation Discharge Disposition: Discharge to home or self care 06/04/2024 Orders Only [facility] - Interventional Radiology [address] [place] [phone] Park Johns RN 06/04/2024 Telephone [facility] - Interventional Radiology [address] [place] [phone] Pearl Goldstein, ROBEL 06/04/2024 Orders Only [facility] - Interventional Radiology [address] [place] [phone] Pearl Goldstein, RN 05/31/2024 Telephone [facility] - Interventional Radiology [address] [place] [phone] Pearl Goldstein, RN 05/31/2024 Orders Only [facility] - Interventional Radiology [address] [place] [phone] Pearl Goldstein, RN from Last 3 Months Immunizations Name Administration Dates Next Due Sars-CoV-2, Unspecified 08/20/2020 ZOSTER Recombinant 02/27/2019 Surgical History Surgery Date Site/Laterality Comments LUMBAR FUSION Arthrodesis Lumbar - (Added by TW Conv) ANKLE SURGERY 06/13/2015 - 06/12/2016 Left Ankle Surgery - (Added by TW Conv) VA NJX AA&/STRD TFRML EPI LUMBAR/SACRAL 1 LEVEL [...] Brother 1 Skipnicole Cotto Diabetes Brother 2 [place] Dilcia Cotto Stroke Brother 2 Raj Cotto Asthma Father Rev Denys Yadiel Cancer Father Rev tremaine Yadiel Asthma Mother Shaenll anitha Yadiel Relation Name Status Comments Brother [...] often do you attend chur ch or religion services? Never 02/03/2023 Do you belong to [...] place to sleep or slept in a longterm (including now)? No 02/03/2023 Personal Safety Answer Date Recorded Have you ever been in or are you currently in a harmful physical or emotional relationship or is someone making you feel afraid or unsafe? Denies 07/13/2024 Sex and Gender Information Value Date Recorded Sex Assigned at Not on file Legal Sex Male 1:47 AM ROSS FURNACE OPERATOR Gender Identity Not on file Sexual Orientation Not on file Obstetrics History Last Filed Vital Signs Vital Sign Reading Time Taken Comments Blood Pressure 118/76 07/13/2024 2:20 PM ROSS FURNACE OPERATOR Pulse 94 07/13/2024 2:20 PM ROSS FURNACE OPERATOR Temperature 36.3 C (97.4 F) 07/13/2024 1:52 PM ROSS FURNACE OPERATOR Respiratory Rate 18 07/13/2024 2:20 PM ROSS FURNACE OPERATOR Oxygen Saturation 96% 07/13/2024 2:20 PM ROSS FURNACE OPERATOR Inhaled Oxygen Concentration - - Weight 79.4 kg (175 lb 0.7 oz) 07/13/2024 1:52 P M ROSS FURNACE OPERATOR Height 172.7 cm (5' 8 ) 07/13/2024 1:52 PM ROSS FURNACE OPERATOR Body Mass Index 26.62 07/13/2024 1:52 PM ROSS FURNACE OPERATOR Plan of Treatment Health Maintenance Due Date [...] as needed Medical Devices Explanted Type Area Refrigerator Car Icer Device Identifier Shelf Expiration Date Model / Serial / Lot [employer] Ian Advanix 10fr 7cm Rapid Exchange Temporary Taper Tip Thin Wall 2 [id number] - [id number] Explanted:Qty: 1 on 02/01/2023 at [facility] Stent N/A: Bile Duct [employer] Ian 11/17/2024 [id number] / / [id number] Description:Slipped out of d uct Procedures Procedure Name Priority Date/Time Associated Diagnosis Comments CHANGE BILIARY DRAINAGE CATHETER EXTERNAL OR INTERNAL EXTERNAL Schedule Routine, Read Routine (OP Routine) 07/13/2024 2:44 PM ROSS FURNACE OPERATOR Gall bladder inflammation CHANGE BILIARY DRAINAGE CATHETER EXTERNAL OR INTERNAL EXTERNAL Schedule Routine, Read Routine (OP Routine) 06/04/2024 2:36 PM ROSS FURNACE OPERATOR Gall bladder inflammation HEPATITIS C RNA, QUANTITATIVE, PCR Routine 04/14/2018 9:10 AM CDT from Last 3 Months or Most Recently Relevant to Health Maintenance Results * IR Change Biliary Drainage Catheter External Or Internal External (07/13/2024 2:44 PM ROSS FURNACE OPERATOR) Anatomical Region Laterality Modality Body N/A X-Ray Angiograph y 07/13/2024 2:59 PM ROSS FURNACE OPERATOR Impressions 07/13/2024 2:59 PM ROSS FURNACE OPERATOR Successful biliary catheter change as described above. [...] saline slowly (over 30 seconds) once daily. [facility] - [phone] Electronically signed by: Jennifer Perry PA-C Narrative 07/13/2024 2:59 PM ROSS FURNACE OPERATOR EXAMINATION: BILIARY TUBE CHANGE HISTORY/INDICATION: 73-year-old male [...] was obtained. Prior to beginning the procedure, Mineral Protocol was performed to confirm the patient's [...] divided and an Amplatz guidewire in a Kenney catheter were advanced through the catheter under fluoroscopic monitoring. The existing catheter was exchanged over the wire for a new 18-Montenegrin Haroon internal-external biliary drainage catheter with additional [...] was obtained. Prior to beginning the procedure, Mineral Protocol was performed to confirm the patient's [...] divided and an Amplatz guidewire in a Kenney catheter were advanced through the catheter under fluoroscopic monitoring. The existing catheter was exchanged over the wire for a new 18-Montenegrin Haroon internal-external biliary drainage catheter with additional [...] saline slowly (over 30 seconds) once daily. [facility] - [phone] Electronically signed by: Jennifer Perry PA-C Deven CEDILLO IMKyler IR PROCEDURES Final Re sult * IR Change Biliary Drainage Catheter External Or Internal External (06/04/2024 2:36 PM ROSS FURNACE OPERATOR) Anatomical Region Laterality Modality Body N/A X-Ray Angiograph y 06/04/2024 3:18 PM ROSS FURNACE OPERATOR Impressions 06/04/2024 3:18 PM ROSS FURNACE OPERATOR Successful biliary catheter change as described above. [...] saline slowly (over 30 seconds) once daily. 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 At his last exchange was upsized to an 18-Montenegrin Haroon catheter with additional sideholes. He has [...] was obtained. Prior to beginning the procedure, Mineral Protocol was performed to confirm the patient's [...] divided and an Bentson guidewire in a Kenney catheter were advanced through the catheter under fluoroscopic monitoring. The existing catheter was exchanged over the wire for a new 18-Montenegrin Haroon internal-external biliary drainage catheter with additional [...] his last exchange was upsized to an 18-Montenegrin Haroon catheter with additional sideholes. He has [...] was obtained. Prior to beginning the procedure, Mineral Protocol was performed to confirm the patient's [...] divided and an Bentson guidewire in a Kenney catheter were advanced through the catheter under fluoroscopic monitoring. The existing catheter was exchanged over the wire for a new 18-Montenegrin Haroon internal-external biliary drainage catheter with additional [...] saline slowly (over 30 seconds) once daily. [facility] - [phone] Electronically signed by: Deven Isaac PA-C Deven CEDILLO IMG IR PROCEDURES Final Re sult * (ABNORMAL) Hepatitis C (HCV) RNA PCR, quantitative (04/14/2018 9:10 AM CDT) HCV RNA IU/mL 54,107 IU/mL 04/16/2018 5:33 PM [employer] HISTORICAL RESULTS HCV RNA log IU/mL 4.73 log IU/mL 018 5:33 [address] [employer] [facility] [employer] HISTORICAL RESULTS HCV quant by NAAT interp Detected( H) Not Detected 04/16/2018 5:33 PM [employer] HISTORICAL RESULTS Comment: INTERPRETIVE INFORMATION: HCV by [...] and Cellular Tissue-Based Products (HCT/P). Performed by [employer], [address] [place] [address],[place] [address] [email or web address], Aaron Esparza MD, Lab. Director 04/14/2018 9:10 AM CDT 04/14/2018 9:28 AM CDT Amari Frazier MD LAB MICROBIOLOGY - [facility] Final Result [facility] HISTORICAL RESULTS from Last 3 Months or Most Recently Relevant to Health Maintenance Insurance IDWA [facility] MEDICARE HMO [facility] MEDICARE O IDPA HUMANA MEDICARE HMO IDPA [facility] MEDICARE O IDPA [id number] DEPT OF LABOR - [facility] WORKERS COMPENSATION GENERIC [address] [address] WORKERS COMPENSATION GENERIC Advance Directives For more information, please contact: [phone] * Full Code (Latest Code Status on [...] 1:22 AM 02/08/2023 5:48 PM Care Teams Transitional Living Specialist Relationship Specialty Start Date End Date Jose Rivera MD [address] [place] [phone] PCP - General 08/29/17 [place] [address] [place] [address] Consulting Physician Gastroenterology 02/08/23 Shayan Brown MD [address] [place] [phone] Referring Physician Hematology 01/13/24
--- OUTSIDE RECORDS SUMMARY | 2024-07-27 12:57 | XMS_ITS | Encounter Summary ---
Author Organization [facility] Address [address] [place] [address] Care Team Providers Care Neonatal Intensive Care Unit Nurse Name Role Phone Jose Rivera MD Primary Care Provider Justin Miller MD Unavailable Shayan Brown MD Unavailable [phone] Encounter Details Date Type Department Care Team (Late st Contact Info) Description 06/04/2024 Telephone [facility] - Interventional Radiology [address] [place] [address] Pearl Goldstein RN Social History [...] often do you attend chur ch or muslim services? Never 02/03/2023 Do you belong to any clubs o r organizations such as nondenominational groups, unions, fraternal or athletic groups, or [...] on file Legal Sex Male 1:47 AM TALENT ASSISTANT Gender Identity Not on file Sexual Orientation [...] on filedocumented in this encounter Care Teams Neonatal Intensive Care Unit Nurse Relationship Specialty Start Date End Date Jose Rivera MD [address] [place] [address] PCP - General 08/29/17 [place] [address] [place] [address] Consulting Physician Gastroenterology 02/08/23 Shayan Brown MD [address] [place] [phone] Referring Physician Hematology 01/13/24 documented as of this encounter
--- OUTSIDE RECORDS SUMMARY | 2024-07-27 12:57 | XMS_ITS | Referral Summary ---
Author Organization [place] [id number] [facility] Address [address] [place] [address] Care Team Providers Care Field Return Repairer Name Role Phone Jose Rivera MD Primary Care Provider [phone] Justin Miller MD Unavailable [phone] Shayan Brown MD Unavailable [phone] Encounters Date Type Department Care Team Description 07/13/2024 1:41 PM INTERSTATE BUS DISPATCHER - 07/13/2024 11:59 PM INTERSTATE BUS DISPATCHER Hospital Encounter [facility] - Interventional Radiology [address] [place] [phone] Gall bladder inflammation Discharge Disposition: Discharge to home or self care 07/12/[address] [facility] - Interventional Radiology [address] [place] [phone] Juan Sierra RN 06/04/[address] [facility] - Interventional Radiology [address] [place] [phone] Park Johns RN 06/04/[address] [facility] - Interventional Radiology [address] [place] [phone] Pearl Goldstein, ROBEL 06/04/2024 1:44 PM INTERSTATE BUS DISPATCHER - 06/04/2024 11:59 PM INTERSTATE BUS DISPATCHER Hospital Encounter [facility] - Interventional Radiology [address] [place] [phone] Gall bladder inflammation Discharge Disposition: Discharge to home or self care 06/04/[address] [facility] - Interventional Radiology [address] [place] [phone] Pearl Goldstein, ROBEL 05/31/[address] [facility] - Interventional Radiology [address] [place] [phone] Pearl Goldstein, ROBEL 05/31/[address] [facility] - Interventional Radiology [address] [place] [phone] Pearl Goldstein, ROBEL from Last 3 [...] often do you attend chur ch or synagogue services? Never 02/03/2023 Do you belong to any clubs o r organizations such as latter day groups, unions, fraternal or athletic groups, or [...] place to sleep or slept in a senior care (including now)? No 02/03/2023 Personal Safety Answer Date Recorded Have you ever been in or are you currently in a harmful physical or emotional relationship or is someone making you feel afraid or unsafe? Denies 07/13/2024 Sex and Gender Information Value Date Recorded Sex Assigned at Not on file Legal Sex Male 1:47 AM INTERSTATE BUS DISPATCHER Gender Identity Not on file Sexual Orientation Not on file Last Filed Vital Signs Vital Sign Reading Time Taken Comments Blood Pressure 118/76 07/13/2024 2:20 PM INTERSTATE BUS DISPATCHER Pulse 94 07/13/2024 2:20 PM INTERSTATE BUS DISPATCHER Temperature 36.3 C (97.4 F) 07/13/2024 1:52 PM INTERSTATE BUS DISPATCHER Respiratory Rate 18 07/13/2024 2:20 PM INTERSTATE BUS DISPATCHER Oxygen Saturation 96% 07/13/2024 2:20 PM INTERSTATE BUS DISPATCHER Inhaled Oxygen Concentration - - Weight 79.4 kg (175 lb 0.7 oz) 07/13/2024 1:52 P M INTERSTATE BUS DISPATCHER Height 172.7 cm (5' 8 ) 07/13/2024 1:52 PM INTERSTATE BUS DISPATCHER Body Mass Index 26.62 07/13/2024 1:52 PM INTERSTATE BUS DISPATCHER Plan of Treatment Not on file Goals [...] as needed Medical Devices Explanted Type Area Milk Of Lime Slaker Device Identifier Shelf Expiration Date Model / Serial / Lot [place] [employer] Advanix 10fr 7cm Rapid Exchange Temporary Taper Tip Thin Wall 2 [id number] - [id number] Explanted:Qty: 1 on 02/01/[address] [facility] Stent N/A: Bile Duct [employer] [place] [employer] 11/17/2024 [id number] / / [id number] Description:Slipped out of d uct Procedures Procedure Name Priority Date/Time Associated Diagnosis Comments CHANGE BILIARY DRAINAGE CATHETER EXTERNAL OR INTERNAL EXTERNAL Schedule Routine, Read Routine (OP Routine) 07/13/2024 2:44 PM INTERSTATE BUS DISPATCHER Gall bladder inflammation CHANGE BILIARY DRAINAGE CATHETER EXTERNAL OR INTERNAL EXTERNAL Schedule Routine, Read Routine (OP Routine) 06/04/2024 2:36 PM INTERSTATE BUS DISPATCHER Gall bladder inflammation HEPATITIS C RNA, QUANTITATIVE, PCR Routine 04/14/2018 9:10 AM CDT from Last 3 Months or Most Recently Relevant to Health Maintenance Results * IR Change Biliary Drainage Catheter External Or Internal External (07/13/2024 2:44 PM INTERSTATE BUS DISPATCHER) Anatomical Region Laterality Modality Body N/A X-Ray Angiograph y 07/13/2024 2:59 PM INTERSTATE BUS DISPATCHER Impressions 07/13/2024 2:59 PM INTERSTATE BUS DISPATCHER Successful biliary catheter change as described above. [...] saline slowly (over 30 seconds) once daily. [facility] - [phone] Electronically signed by: Jennifer Perry PA-C Narrative 07/13/2024 2:59 PM INTERSTATE BUS DISPATCHER EXAMINATION: BILIARY TUBE CHANGE HISTORY/INDICATION: 73-year-old male [...] was obtained. Prior to beginning the procedure, Hinton Protocol was performed to confirm the patient's [...] divided and an Amplatz guidewire in a [place] catheter were advanced through the catheter under fluoroscopic monitoring. The existing catheter was exchanged over the wire for a new 18-Portuguese Haroon internal-external biliary drainage catheter with additional [...] was obtained. Prior to beginning the procedure, Hinton Protocol was performed to confirm the patient's [...] divided and an Amplatz guidewire in a [place] catheter were advanced through the catheter under fluoroscopic monitoring. The existing catheter was exchanged over the wire for a new 18-Portuguese Haroon internal-external biliary drainage catheter with additional [...] saline slowly (over 30 seconds) once daily. [facility] - [phone] Electronically signed by: Jennifer Perry PA-C Deven CEDILLO IMG IR PROCEDURES Final Re sult * IR Change Biliary Drainage Catheter External Or Internal External (06/04/2024 2:36 PM INTERSTATE BUS DISPATCHER) Anatomical Region Laterality Modality Body N/A X-Ray Angiograph y 06/04/2024 3:18 PM INTERSTATE BUS DISPATCHER Impressions 06/04/2024 3:18 PM INTERSTATE BUS DISPATCHER Successful biliary catheter change as described above. [...] saline slowly (over 30 seconds) once daily. 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 At his last exchange was upsized to an 18-Portuguese Har[place] catheter with additional sideholes. He has [...] was obtained. Prior to beginning the procedure, Hinton Protocol was performed to confirm the patient's [...] The catheter was then divided and an [email or web address] guidewire in a [place] catheter were advanced through the catheter under fluoroscopic monitoring. The existing catheter was exchanged over the wire for a new 18-Portuguese Haroon internal-external biliary drainage catheter with additional [...] his last exchange was upsized to an 18-Portuguese Haroon catheter with additional sideholes. He has [...] was obtained. Prior to beginning the procedure, Hinton Protocol was performed to confirm the patient's [...] The catheter was then divided and an [email or web address] guidewire in a [place] catheter were advanced through the catheter under fluoroscopic monitoring. The existing catheter was exchanged over the wire for a new 18-Portuguese Haroon internal-external biliary drainage catheter with additional [...] saline slowly (over 30 seconds) once daily. [facility] - [phone] Electronically signed by: Deven Isaac PA-C us Deven CEDILLO IMG IR PROCEDURES Final Re sult * (ABNORMAL) Hepatitis C (HCV) RNA PCR, quantitative (04/14/2018 9:10 AM CDT) HCV RNA IU/mL 54,107 IU/mL HCV RNA log IU/mL 4.73 log IU/mL 018 5:33 PM [facility] HISTORICAL RESULTS HCV quant by NAAT interp [...] and Cellular Tissue-Based Products (HCT/P). Performed by [facility], [address] [place] [id number] [email or web address], Aaron Esparza MD, Lab. Director 04/14/2018 9:10 AM CDT 04/14/2018 9:28 AM CDT us Amari Frazier MD LAB MICROBIOLOGY - GENERAL NIKHIL MEYERS Final Result [facility] HISTORICAL RESULTS from Last 3 Months or Most Recently Relevant to Health Maintenance Insurance [facility] HUMANA MEDICARE HMO HUMANA MEDICARE HMO Member Subscriber Plan / Payer ( fective 2019-Present) Name:Lee Cotto Sr. Relation to Subscriber:Self Name:Lee Cotto Sr. Payer ID:[id number] (NAIC) Type:MEDICARE RISK OTHER Address: [address] HUMANA MEDICARE HMO IDPA HUMANA MEDICARE HMO IDPA DEPT OF LABOR - OW WORKERS COMPENSATION GENERIC Advance Directives For more information, please contact: [phone] * Full Code (Latest Code Status on [...] 1:22 AM 02/08/2023 5:48 PM Care Teams Field Return Repairer Relationship Specialty Start Date End Date Jose Rivera MD [address] [place] [address] PCP - General 08/29/17 [place] [address] [place] [address] Consulting Physician Gastroenterology 02/08/23 Shayan Brown MD [address] [place] [phone] Referring Physician Hematology 01/13/24
--- OUTSIDE RECORDS SUMMARY | 2024-07-27 12:57 | XMS_ITS | Encounter Summary ---
Author Organization [facility] [employer] [facility] Address [address] [place] [address] Care Team Providers Care Efficiency Engineer Name Role Phone Jose Rivera MD Primary Care Provider Encounter Details Date Type Department Care Team (Late st Contact Info) Description 07/23/2024 Orders Only [facility] Oncology and Hematology - Jose [address] [facility] [address] [place] [address] Shayan Brown MD [address] [facility] [address] [place] [address] Small cell lung cancer (CMS/HCC) [...] st Contact Info) Description 08/08/2024 9:45 AM SPOOL SALVAGER Office Visit [facility] Oncology and Hematology [facility] [address] [place] [address] Shayan Borwn MD [address] [facility] [address] [place] [address] documented as of this encounter Visit Diagnoses Diagnosis Small cell lung cancer (CMS/HCC) Malignant neoplasm of bronchus and lung, unspecified site documented in this encounter Care Teams Efficiency Engineer Relationship Specialty Start Date End Date Jose Rivera MD [address] [place], [place] [phone] PCP - General Family Practice 12/29/23 documented as of this encounter
--- OUTSIDE RECORDS SUMMARY | 2024-07-27 12:57 | XMS_ITS | Encounter Summary ---
Author Organization [facility] Healthcare Address [address] [place] [address] Care Team Providers Care Drainage Engineer Name Role Phone Jose Rivera MD Primary Care Provider Justin Miller MD Unavailable Shayan Brown MD Unavailable [phone] Encounter Details Date Type Department Care Team (Late st Contact Info) Description 03/27/2019 Telephone [facility] [address] [facility] [address] [place] [address] Sumanth Reyes MD [address] 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
--- OUTSIDE RECORDS SUMMARY | 2024-07-27 12:57 | XMS_ITS | Encounter Summary ---
Author Organization [facility] Healthcare Address [address] [place] [address] Care Team Providers Care Microgrinder Operator Name Role Phone Jose Rivera MD Primary Care Provider [phone] Justin Miller MD Unavailable [phone] Shayan Brown MD Unavailable [phone] Encounter Details Date Type Department Care Team (Late st Contact Info) Description 04/19/2024 Documentation [facility] - Interventional Radiology [address] [place] [address] Alda Harris RN Social History [...] often do you attend chur ch or bahai services? Never 02/03/2023 Do you belong to any clubs o r organizations such as taoist groups, unions, fraternal or athletic groups, or [...] place to sleep or slept in a snf (including now)? No 02/03/2023 Personal Safety Answer Date Recorded Have you ever been in or are you currently in a harmful physical or emotional relationship or is someone making you feel afraid or unsafe? Denies 04/23/2024 Sex and Gender Information Value Date Recorded Sex Assigned at Not on file Legal Sex Male 1:47 AM MEAL COOK Gender Identity Not on file Sexual Orientation [...] on filedocumented in this encounter Care Teams Microgrinder Operator Relationship Specialty Start Date End Date Jose Rivera MD [address] [place] [address] PCP - General 08/29/17 [place] [address] [place] [address] Consulting Physician Gastroenterology 02/08/23 Shayan Brown MD [address] [place] [phone] Referring Physician Hematology 01/13/24 documented as of this encounter
[2024-07-27 13:01] LABS: Mean Corpuscular HGB Conc 31.6 g/dl (32-36); Mean Corpuscular Hemoglobin 28.4 pg (26-34); Red Blood Count 2.11 M/mm3 (4.6-6.20); Red Cell Distribution Width 15.9 % (11.5-14.5)
[2024-07-27 13:07] LABS: Alanine Aminotransferase 15 U/L (6-50); Albumin Level 3.2 g/dL (3.5-5.1); Alkaline Phosphatase 91 U/L (38-126); Anion Gap 14 mmol/L (4-12); Aspartate Amino Transferase 13 U/L (17-59); Blood Urea Nitrogen 41 mg/dL (9-20); Calcium 8.6 mg/dL (8.4-10.2); Carbon Dioxide 17 mmol/L (22-30); Chloride 108 mmol/L (98-107); Estimated CRCL calculation 22 ml/min; Estimated Glomerular Filt Rate 28; Glucose 120 mg/dL (65-110); Sodium 139 mmol/L (137-145)
[2024-07-27 13:14] LABS: INR 1.3; Prothrombin Time 16.7 Seconds (11.1-14.7)
[2024-07-27 13:15] LABS: Partial Thromboplastin Time 36.7 Seconds (22.3-36.8)
[2024-07-27 13:18] LABS: Platelet Count Result 18 k/mm3 (150-375)
[2024-07-27 13:42] LABS: Band Neutrophils Percent 22 % (0-6); Lymphocytes Absolute Manual 0.04 K/mm3 (1.1-4.5); Monocytes Absolute Manual 0.32 K/mm3 (0.1-0.90); Monocytes Percent Manual 32 % (3-9); Neutrophils Absolute Manual 0.64 K/mm3 (1.3-6.7); Neutrophils Percent Manual 42 % (46-73)
[2024-07-27 13:43] LABS: Platelet Estimate Decreased (Adequate)
[2024-07-27 13:44] LABS: Dohle Bodies Present; Schistocytes None Seen
[2024-07-27 13:45] LABS: Anisocytosis 1+; Poikilocytosis 1+
[2024-07-27 13:47] LABS: Ovalocytes 1+; Total Cells Counted 100
--- NOTE | 2024-07-27 14:33 | ED_ITS ---
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 He denies any unusual shortness of breath or chest pain. No history of fever or chills patient states that was sent to ER for platelet transfusion. Onset (ago): day(s) (1) Relieving factors: none Exacerbating factors: none Associated symptoms: denies other symptoms Related Data Home Medications ?Medication ?Instructions ?Recorded ?Confirmed ?Last Taken ?Type doxazosin 8 mg tablet 8 mg PO HS 03/07/20 07/12/24 08/29/23 History ergocalciferol (vitamin D2) 1,250 1,250 mcg PO WEEKLY 03/07/20 07/12/24 08/25/23 History mcg (50,000 unit) capsule fluticasone propionate 50 1 spray intranasal DAILY PRN 03/07/20 07/12/24 08/30/23 History mcg/actuation nasal Congestion spray,suspension nebulizer and compressor (Easy Neb #1 ea 03/07/20 07/12/24 Unknown History Compressor Nebulizer) sildenafil 100 mg tablet 100 mg PO DAILY PRN Erectile 03/07/20 07/12/24 Unknown History Dysfunction omeprazole 40 mg capsule,delayed 40 mg PO DAILY 01/28/23 07/12/24 08/30/23 History release methocarbamol 500 mg tablet 500 mg PO PRN PRN back spasms 08/30/23 07/12/24 03/31/23 History roflumilast 500 mcg tablet 500 mcg PO HS copd 08/30/23 07/12/24 08/29/23 History Vitamin C 1 tab-cap PO DAILY 03/30/24 07/12/24 Unknown History ferrous sulfate 2 tab-cap PO DAILY 03/30/24 07/12/24 Unknown History vitamin [id number] acid 1 tab-cap PO DAILY 03/30/24 07/12/24 Unknown History baclofen 10 mg tablet 10 mg PO TID PRN Hiccups 04/15/24 07/12/24 Unknown History budesonide 0.25 mg/2 mL suspension 0.25 mg inhalation BID 04/15/24 07/12/24 Unknown History for nebulization levocetirizine 5 mg tablet 5 mg PO DAILY 04/15/24 07/12/24 Unknown History metoprolol tartrate 25 mg tablet 25 mg PO HS 04/15/24 07/12/24 Unknown History aspirin 81 mg chewable tablet 81 mg PO DAILY 05/31/24 07/12/24 Unknown History (Aspirin Childrens) metoprolol tartrate 25 mg tablet 25 mg PO DAILY 05/31/24 07/12/24 Unknown History allopurinol 300 mg tablet 300 mg PO DAILY Gout 07/18/24 07/18/24 Unknown History Allergies Allergy/AdvReac Type Severity Reaction Status Date / Time lisinopril Allergy Severe Swelling Verified 07/19/24 16:50 Penicillins Allergy Intermediate Hives / Verified 07/18/24 08:48 Red Face Sulfa (Sulfonamide Allergy Intermediate Hives / Verified 07/18/24 08:48 Antibiotics) Red Face Review of Systems 2 Review of Systems: All systems reviewed & are unremarkable except as noted in HPI and below Constitutional: Constitutional: Reports no additional constitutional complaints Eyes: Eyes: Reports no additional eye complaints ENT: Reports system reviewed and no additional complaints, except as documented Cardiovascular: Cardiovascular: Reports no additional cardiovascular complaints Respiratory: Respiratory: Reports no additional respiratory complaints Gastrointestinal: Gastrointestinal: Reports no additional gastrointestinal complaints Musculoskeletal: Musculoskeletal: Reports no additional musculoskeletal complaints Neurologic: Reports system reviewed and no additional complaints, except as documented Psychiatric: Psychiatric: Reports no additional psychiatric complaints Endocrine: Endocrine: Reports no additional endocrine complaints Allergic/Immunologic: Allergic/Immunologic: Reports no additional allergic/immunologic complaints [facility] Past Medical History Medical History G6PD deficiency History of biliary stent insertion Former smoker Hypertension Chronic respiratory failure with hypoxia, on home oxygen therapy Chronic obstructive pulmonary disease Benign prostatic hyperplasia Small cell lung cancer (02/2024) Hepatitis C GERD (gastroesophageal reflux disease) Pulmonary emboli (11/2021) Former smoker Asbestos exposure Environmental allergies Sleep apnea Chronic viral hepatitis C Elevated PSA Chronic kidney disease Surgical History Surgical History History of back surgery History of ankle surgery (2016) Family History Family History Father Cancer Pancreatic cancer Mother Asthma Cerebrovascular accident Sibling Diabetes mellitus Hypertension Heart disease Cerebrovascular accident Cancer of colon Other Lung disease Social History Social History Social History: Surrogate medical decision maker: Negin Cotto, spouse. Code status: Full code. Smoking packs per day: 1 Smoking cigarettes per day: 20.0 Years smoked: 50 Smoking pack-years: 50.00 Smoking status: Former smoker Tobacco type: cigarettes Smoking end date: 06/13/17 Alcohol intake: never Drinks per week: 1 Alcohol use details: Social alcohol use in moderation. Substance use: never Substance use type: does not use Do You Feel Safe in your Home?: Yes Lack of Transportation: No Lack of Food: Never True Current Housing: I Have Housing Concerned About Future Housing: No Difficulty Paying Gas/Electric Bills: No Difficulty Paying for Meds: No Currently Unemployed: No Education: High School Diploma/GED Difficulty w/ Childcare or Family Care: No Living arrangements: alone Occupation/Education: retired Spiritual care concerns: No Exam 2 Narrative: GENERAL: Well-appearing, well-nourished, and in no acute distress. HEAD: Normocephalic, atraumatic. EYES: PERRLA and EOMI. ENT: Nares clear, no rhinorrhea or epistaxis. Mucous membranes moist. NECK: Supple. CHEST: Clear to auscultation. No respiratory distress. HEART: Regular rate and rhythm. No murmur heard. Normal peripheral pulses. ABDOMEN: Soft, nontender, nondistended, normal active bowel sounds. EXTREMITIES: Normal range of motion. No edema. SKIN: Warm, dry, no rash. NEURO: No focal deficits. Alert and oriented x3. PSYCH: Normal mood and affect. Course Course Emergency Course: Case discussed with Dr. Brown recommended 2 units of PRBCs and 2 units of platelet transfusion. Discussed with the hospitalist accepted the patient Vital Signs Vital signs: Vital Signs Temperature 36.8 C 07/27/24 11:49 Pulse Rate 55 L 07/27/24 11:49 Respiratory Rate 36 H 07/27/24 11:49 Blood Pressure 102/43 L 07/27/24 11:49 Pulse Oximetry 99 07/27/24 11:49 Oxygen Delivery Nasal Cannula 07/27/24 11:49 Oxygen Flow Rate 2 07/27/24 11:49 Temperature 36.6 C 07/27/24 15:22 Pulse Rate 116 H 07/27/24 15:22 Respiratory Rate 25 H 07/27/24 15:22 Blood Pressure 114/62 07/27/24 15:22 Pulse Oximetry 100 07/27/24 15:22 Oxygen Delivery Nasal Cannula 07/27/24 11:49 Oxygen Flow Rate 3 07/27/24 13:02 Medical Decision Making Vital Signs Vital Signs: Vital Signs Temperature 36.8 C 07/27/24 11:49 Pulse Rate 55 L 07/27/24 11:49 Respiratory Rate 36 H 07/27/24 11:49 Blood Pressure 102/43 L 07/27/24 11:49 Pulse Oximetry 99 07/27/24 11:49 Oxygen Delivery Nasal Cannula 07/27/24 11:49 Oxygen Flow Rate 2 07/27/24 11:49 Temperature 36.6 C 07/27/24 15:22 Pulse Rate 116 H 07/27/24 15:22 Respiratory Rate 25 H 07/27/24 15:22 Blood Pressure 114/62 07/27/24 15:22 Pulse Oximetry 100 07/27/24 15:22 Oxygen Delivery Nasal Cannula 07/27/24 11:49 Oxygen Flow Rate 3 07/27/24 13:02 Lab Data Lab results reviewed: Yes I reviewed the patient's lab results. 07/27/24 12:52 07/27/24 12:52 Labs: Lab Results 07/27/24 Range/Units 12:52 WBC 1.0 L* (4.5-10.0) K/mm3 RBC 2.11 L (4.6-6.20) M/mm3 Hgb 6.0 L* (14.0-18.0) g/dL Hct 19.0 L* (42.0-52.0) % MCV 90.0 (80-100) fl MCH 28.4 (26-34) pg MCHC 31.6 L (32-36) g/dl RDW 15.9 H (11.5-14.5) % Plt Count 18 L* (150-375) k/mm3 MPV TNP Immature Gran % (Auto) Not Reportable Neut % (Auto) Not Reportable Lymph % (Auto) Not Reportable Morrison % (Auto) Not Reportable Eos % (Auto) Not Reportable Baso % (Auto) Not Reportable Lymph # (Auto) Not Reportable Morrison # (Auto) Not Reportable Eos # (Auto) Not Reportable Baso # (Auto) Not Reportable Abs Immat Gran (auto) Not Reportable Absolute Neuts (auto) Not Reportable Absolute Nucleated RBC Not Reportable Total Counted 100 Neutrophils % (Manual) 42 L (46-73) % Band Neutrophils % 22 H (0-6) % Lymphocytes % (Manual) 4.0 L (18-44) % Monocytes % (Manual) 32 H (3-9) % Nucleated RBC % Not Reportable Abs Neuts (Manual) 0.64 L (1.3-6.7) K/mm3 Abs Lymphs (Manual) 0.04 L (1.1-4.5) K/mm3 Abs Monocytes (Manual) 0.32 (0.1-0.90) K/mm3 Dohle Bodies Present Platelet Estimate Decreased (Adequate) % Immature Plt Fraction 4.0 (0.9-11.2) % Poikilocytosis 1+ Anisocytosis 1+ Ovalocytes 1+ Schistocytes None seen PT 16.7 H (11.1-14.7) Seconds INR 1.3 APTT 36.7 (22.3-36.8) Seconds Sodium 139 (137-145) mmol/L Potassium 4.0 (3.4-5.0) mmol/L Chloride 108 H (98-107) mmol/L Carbon Dioxide 17 L (22-30) mmol/L Anion Gap 14 H (4-12) mmol/L BUN 41 H D (9-20) mg/dL Creatinine 2.70 H (0.7-1.3) mg/dL Estim Creat Clear Calc 22 ml/min Estimated GFR 28 L (59 - ) Glucose 120 H (65-110) mg/dL Calcium 8.6 (8.4-10.2) mg/dL Total Bilirubin 3.0 H (0.2-1.3) mg/dL AST 13 L (17-59) U/L ALT 15 (6-50) U/L Alkaline Phosphatase 91 (38-126) U/L Total Protein 7.0 (6.3-8.2) g/dL Albumin 3.2 L (3.5-5.1) g/dL Blood Type A Positive Antibody Screen Negative Crossmatch See Detail Critical Care Time Critical Care Time Total Critical Care Time: 45 (For blood transfusion and platelet transfusion) Discharge Plan Discharge Clinical Impression: Thrombocytopenia Anemia Qualifiers: Anemia type: unspecified type Qualified Code(s): D64.9 - Anemia, unspecified Pneumonia Qualifiers: Pneumonia type: due to unspecified organism Laterality: left Lung location: u pper lobe of lung Qualified Code(s): J18.9 - Pneumonia, unspecified organism Patient Disposition: Still a Patient Condition: Stable Time of Disposition: 14:41
--- NOTE | 2024-07-27 16:11 | PM.IMHP ---
H&P: HPI History of Present Illness Date/Time: 07/27/24 16:11 Chief Complaint: Hemoptysis Narrative: 73 y/o M presents here with hemoptysis with PMH of G6PD deficiency, former smoker, hypertension, chronic respiratory failure with hypoxia on home O2, COPD, BPH, small cell lung cancer, hepatitis-C, GERD, PE (2021), sleep apnea, and CKD. The patient presents here from his oncologist's office, there for chemo, for further evaluation of hemoptysis. Hemoptysis began last night and is accompanied by shortness of breath, lower chest wall pain on the left), diarrhea, productive cough, and fever. Denies chills or body aches. Has a history of a pulmonary emboli in 2021. He also has a history of small cell lung cancer for which he has undergone radiation and chemo, follows with [facility]. Last chemotherapy was on 06/18/24 and last radiation treatment on 05/04/24. Per patient's radiation/oncology note in April of 2024, the patient's treatment course was complicated by 2 hospitalizations due to pneumonia. However, most recent admission in May of 2024 was due to epistaxis. Initial VS at presentation: 98.2? F, HR 55, RR 36, 06/14/2042, and 99% on 3L NC. ED workup showed: WBC 1.0, hemoglobin 6.0, platelet count 18, INR 1.3, creatinine 2.7 and GFR 28 (previously 1.6 and GFR 52 on 07/16/2024), glucose 120, total bilirubin 3.0, AST 13, albumin 3.2. CXR showed multifocal left-sided consolidation, consistent with pneumonia. Viral PCR negative. Review of Systems Review of Systems: All systems reviewed & are unremarkable except as noted in HPI and below PMFSH Past Medical History Medical History G6PD deficiency anemia Hypertension COPD (chronic obstructive pulmonary disease) Chronic kidney disease G6PD deficiency History of biliary stent insertion Former smoker Chronic respiratory failure with hypoxia, on home oxygen therapy Benign prostatic hyperplasia Small cell lung cancer (02/2024) Hepatitis C GERD (gastroesophageal reflux disease) Pulmonary emboli (11/2021) Former smoker Asbestos exposure Environmental allergies Sleep apnea Chronic viral hepatitis C Elevated PSA Surgical History Surgical History History of back surgery History of ankle surgery (2016) Family History Family History Father Cancer Pancreatic cancer Mother Asthma Cerebrovascular accident Sibling Diabetes mellitus Hypertension Heart disease Cerebrovascular accident Cancer of colon Other Lung disease Social History Social History Social History: Surrogate medical decision maker: Negin Yadiel, spouse. Code status: Full code. Smoking packs per day: 1 Smoking cigarettes per day: 20.0 Years smoked: 50 Smoking pack-years: 50.00 Smoking status: Former smoker Tobacco type: cigarettes Smoking end date: 06/13/17 Alcohol intake: never Drinks per week: 1 Alcohol use details: Social alcohol use in moderation. Substance use: never Substance use type: does not use Do You Feel Safe in your Home?: Yes Lack of Transportation: No Lack of Food: Never True Current Housing: I Have Housing Concerned About Future Housing: No Difficulty Paying Gas/Electric Bills: No Difficulty Paying for Meds: No Currently Unemployed: No Education: High School Diploma/GED Difficulty w/ Childcare or Family Care: No Living arrangements: alone Occupation/Education: retired Spiritual care concerns: No Meds Home Medications and Allergies Home Medications ?Medication ?Instructions ?Recorded ?Confirmed ?Type doxazosin 8 mg tablet 8 mg PO HS 03/07/20 07/12/24 History ergocalciferol (vitamin D2) 1,250 1,250 mcg PO WEEKLY 03/07/20 07/12/24 History mcg (50,000 unit) capsule fluticasone propionate 50 1 spray intranasal DAILY PRN 03/07/20 07/12/24 History mcg/actuation nasal Congestion spray,suspension nebulizer and compressor (Easy Neb #1 ea 03/07/20 07/12/24 History Compressor Nebulizer) sildenafil 100 mg tablet 100 mg PO DAILY PRN Erectile 03/07/20 07/12/24 History Dysfunction omeprazole 40 mg capsule,delayed 40 mg PO DAILY 01/28/23 07/12/24 History release methocarbamol 500 mg tablet 500 mg PO PRN PRN back spasms 08/30/23 07/12/24 History roflumilast 500 mcg tablet 500 mcg PO HS copd 08/30/23 07/12/24 History Vitamin C 1 tab-cap PO DAILY 03/30/24 07/12/24 History ferrous sulfate 2 tab-cap PO DAILY 03/30/24 07/12/24 History vitamin U02-smoss acid 1 tab-cap PO DAILY 03/30/24 07/12/24 History albuterol sulfate 90 mcg/actuation See Rx Instructions .Route 04/12/24 07/12/24 Rx aerosol inhaler .COMPLEX #3 ea baclofen 10 mg tablet 10 mg PO TID PRN Hiccups 04/15/24 07/12/24 History budesonide 0.25 mg/2 mL suspension 0.25 mg inhalation BID 04/15/24 07/12/24 History for nebulization levocetirizine 5 mg tablet 5 mg PO DAILY 04/15/24 07/12/24 History metoprolol tartrate 25 mg tablet 25 mg PO HS 04/15/24 07/12/24 History revefenacin 175 mcg/3 mL solution 175 mcg (3 mL) inhalation DAILY 05/09/24 07/12/24 Rx for nebulization ([facility]) COPD 1 month #90 mL aspirin 81 mg chewable tablet 81 mg PO DAILY 05/31/24 07/12/24 History (Aspirin [facility]) metoprolol tartrate 25 mg tablet 25 mg PO DAILY 05/31/24 07/12/24 History arformoterol 15 mcg/2 mL solution 15 mcg (2 mL) inhalation BID COPD 06/04/24 07/12/24 Rx for nebulization 1 month #120 mL montelukast 10 mg tablet See Rx Instructions .Route 06/04/24 07/12/24 Rx .COMPLEX #90 tabs albuterol sulfate 90 mcg/actuation See Rx Instructions .Route 07/12/24 07/16/24 Rx aerosol inhaler .COMPLEX #3 ea allopurinol 300 mg tablet 300 mg PO DAILY Gout 07/18/24 07/18/24 History Allergies Allergy/AdvReac Type Severity Reaction Status Date / Time lisinopril Allergy Severe Swelling Verified 07/19/24 16:50 Penicillins Allergy Intermediate Hives / Verified 07/18/24 08:48 Red Face Sulfa (Sulfonamide Allergy Intermediate Hives / Verified 07/18/24 08:48 Antibiotics) Red Face Vital Signs Vital Signs - 24 hr 07/27/24 11:49 07/27/24 13:00 07/27/24 13:02 Temperature 98.2 F Pulse Rate 55 L 120 H Respiratory Rate 36 H 29 H 26 H Blood Pressure 102/43 L 104/55 L Pulse Oximetry 99 100 99 Oxygen Delivery Nasal Cannula Oxygen Flow Rate 2 3 07/27/24 14:00 07/27/24 14:49 07/27/24 15:22 Temperature 97.8 F Pulse Rate 119 H 109 H 116 H Respiratory Rate 27 H 20 25 H Blood Pressure 106/63 106/64 114/62 Pulse Oximetry 99 100 100 Oxygen Delivery Oxygen Flow Rate 07/27/24 15:47 Temperature 97.6 F Pulse Rate 109 H Respiratory Rate 24 H Blood Pressure 103/62 Pulse Oximetry 100 Oxygen Delivery Oxygen Flow Rate Exam Const: Other: , male, elderly, mildly ill-appearing. Mild respiratory effort. HENMT: Face/Nose/Sinus: Normal nares present Mouth: Yes moist mucous membranes Other: NC in place Eyes: General: appearance normal, both eyes and all related structures Sclera: sclerae normal Pupils: Equal, round and reactive pupils present EOM: EOMs intact bilaterally Resp: Other: +tachypnea w/mild WOB. Coarse bibasilar lung sounds and expiratory wheeze. Cardio: Rate: tachycardic Rhythm: regular rhythm Other: S1-S2 present without murmur, rub, ectopy GI: Other: abdomen rounded. nontender. drain to the right mid abdomen with yellow clear output with some sediment (liver, no change in output per patient) Skin: General skin exam: normal color and no rashes or lesions noted Wounds: no wounds Neuro: Speech: normal speech Motor exam (neuro): 5/5 motor strength present throughout Sensory Exam: normal sensation Other: A&O 4 Extrem: General: normal to inspection Psych: Mental Status: mental status grossly normal Affect: normal affect Other: Good insight judgment, pleasant H&P: Results Labs Labs: Short CBC 07/27/24 Range/Units 12:52 WBC 1.0 L* (4.5-10.0) K/mm3 Hgb 6.0 L* (14.0-18.0) g/dL Hct 19.0 L* (42.0-52.0) % Plt Count 18 L* (150-375) k/mm3 BMP 07/27/24 12:52 Sodium 139 Potassium 4.0 Chloride 108 H Carbon Dioxide 17 L BUN 41 H D Creatinine 2.70 H Glucose 120 H Calcium 8.6 Liver Function 07/27/24 Range/Units 12:52 Total Bilirubin 3.0 H (0.2-1.3) mg/dL AST 13 L (17-59) U/L ALT 15 (6-50) U/L Alkaline Phosphatase 91 (38-126) U/L Albumin 3.2 L (3.5-5.1) g/dL Assessment and Plan Assessment and plan (1) Sepsis: Qualifiers: Sepsis acute organ dysfunction status: without acute organ dysfunction Sepsis type: sepsis due to unspecified organism Qualified Code(s): A41.9 - Sepsis, unspecified organism Code(s): A41.9 - Sepsis, unspecified organism Status: Acute Assessment and Plan: - meets SIRS criteria: HR, RR. WBC 1.0. No current hypoxia or hypotension. - lactic acid and procalcitonin ordered - 30 mL/kg = 2.5L, start with 2L bolus and assess toleration. - suspected source: Pneumonia - started on cefepime, azithromycin, vancomycin - blood cultures drawn on 07/27, follow - monitor hemodynamic stability (2) Pneumonia: Qualifiers: Laterality: bilateral Lung location: unspecified part of lung Pneumonia type: due to unspecified organism Qualified Code(s): J18.9 - Pneumonia, unspecified organism Code(s): J18.9 - Pneumonia, unspecified organism Status: Acute Assessment and Plan: - CXR: Multifocal left-sided consolidation, consistent with pneumonia. - risk factors and complicating factors: pancytopenia, lung cancer - started on HAP tx: Vancomycin, cefepime, azithromycin - MRSA PCR, viral PCR, and sputum culture ordered - baseline O2 requirement: 3L NC - supportive care (3) Thrombocytopenia: Code(s): D69.6 - Thrombocytopenia, unspecified Status: Acute Assessment and Plan: - WBC 1.0, HGB 6.0, platelet count 18 - oncology consulted, awaiting formal recs - transfuse 2 units of PRBC and 2 units of plateles - trend (4) Small cell lung cancer: Onset Date: 02/2024 Qualifiers: Laterality: right Lung location: unspecified part of lung Qualified Code(s): C34.91 - Malignant neoplasm of unspecified part of right bronchus or lung Code(s): C34.90 - Malignant neoplasm of unspecified part of unspecified bronchus or lung Status: Chronic Assessment and Plan: Hx of lung cancer, has underwent chemo and radiation. Last chemotherapy was on 06/18/24 and last radiation treatment on 05/04/24. - oncology consulted, awaiting formal recs (5) Chronic kidney disease, stage 2 (mild): Code(s): N18.2 - Chronic kidney disease, stage 2 (mild) Status: Chronic Assessment and Plan: - PRISCILLA superimposed on CKD - creatinine 2.7 and GFR 28, previously 1.6 and GFR 52 on 07/16/2024 - IV fluids: 2L bolus - monitor I&Os - trend renal function - trend electrolytes, correct as needed (6) HTN (hypertension): Qualifiers: Hypertension type: unspecified Qualified Code(s): I10 - Essential (primary) hypertension Code(s): I10 - Essential (primary) hypertension Status: Chronic Assessment and Plan: - chronic, currently 103/62 - continue home medications - monitor (7) Obstructive sleep apnea: Code(s): G47.33 - Obstructive sleep apnea (adult) (pediatric) Status: Acute Assessment and Plan: - does not use CPAP Plan Diet: Heart healthy GI Prophylaxis: Not currently indicated DVT Prophylaxis: SCDs Lines: peripheral Code Status: DNR Quality VTE Prophylaxis VTE prophylaxis: mechanical ordered Hospitalist MIPS Advance Care Plan I have confirmed that the patient's Advanced Care Plan is present, code status is documented, or surrogate decision maker is listed in patient medical record.: Yes Medication Reconciliation I have utilized all available resources to obtain, update and review the patients current medications (includes all prescriptions, OTC, herbals, cannabis, and nutritional supplements).: Yes
[2024-07-27] MEDS: TUBING, BLOOD PLUM PUMP TUBING 1 EACH XX ×2 (16:34→20:42)
[2024-07-27] MEDS: SODIUM CHLORIDE 0.9% IV 250 ML 30 ML IV CONT ×2 (16:34→18:16)
[2024-07-27] MEDS: TUBING, BLOOD SET 1 EACH XX ×2 (16:35→19:38)
[2024-07-27 17:35] LABS: Influenza A QL RT-PCR Negative (Negative); Influenza B QL RT-PCR Negative (Negative); RSV RNA, RT-PCR Negative (Negative); SARS-CoV-2 RNA PCR Negative (Negative)
[2024-07-27 18:10] LABS: MRSA (PCR) NOT DETECTED (NOT DETECTE)
[2024-07-27 18:12] LABS: Lactic Acid Reflex 1.1 mmol/L (0.7-2.0)
[2024-07-27] MEDS: SODIUM CHLORIDE 0.9% IV 1,000 ML 999 ML IV CONT ×2 (18:15)
[2024-07-27 18:54] LABS: Procalcitonin 20.2 ng/mL
[2024-07-27] MEDS: CEFEPIME 1 GM/NS 50 ML 1 GM/50 ML BAG IVPB (18:56)
[2024-07-27] MEDS: AZITHROMYCIN 500 MG/NS 250 ML 500 MG/250 ML BAG 250 MG IVPB (19:38)
[2024-07-27] MEDS: VANCOMYCIN 1,250 MG/NS 250 ML 1,250 MG/250 ML BAG 166.67 MG IVPB (20:41)
[2024-07-27] MEDS: IPRATROPIUM 0.5 MG/ALBUTEROL SULFATE 2.5 MG AMPUL.NEB 3 ML INHALATION (21:02)
--- OUTSIDE RECORDS SUMMARY | 2024-07-27 21:50 | XMS_ITS | Clinical Summary ---
Author Organization [facility] Address [address] [place] [phone] Phone Care Team Providers Care Manager Validation Name Role Phone Jose Rivera MD Primary Care Provider [phone] Allergies Active Allergy Reactions Criticality Noted Date [...] day Active ergocalciferol (VITAMIN D-2) 1.25 MG (07781 UT) capsule Take 50,000 Units by mouth [...] 12/05/2015 Influenza Vaccine (#1) 2024 Care Teams Manager Validation Relationship Specialty Start Date End Date Jose Rivera MD [address] [place] [phone] PCP - General Internal Medicine 01/05/21
--- OUTSIDE RECORDS SUMMARY | 2024-07-27 21:51 | XMS_ITS | Encounter Summary ---
Author Organization [facility] Healthcare Address [address] [place] [address] Care Team Providers Care Assistant Designer Name Role Phone Jose Rivera MD Primary Care Provider [phone] Justin Miller MD Unavailable [phone] Shayan Brown MD Unavailable [phone] Encounter Details Date Type Department Care Team (Late st Contact Info) Description 04/19/2024 Documentation [facility] - Interventional Radiology [address] [place] [address] Alda Harris RN Social History [...] often do you attend chur ch or protestant services? Never 02/03/2023 Do you belong to any clubs o r organizations such as sabianist groups, unions, fraternal or athletic groups, or [...] place to sleep or slept in a intermediate (including now)? No 02/03/2023 Personal Safety Answer Date Recorded Have you ever been in or are you currently in a harmful physical or emotional relationship or is someone making you feel afraid or unsafe? 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
--- OUTSIDE RECORDS SUMMARY | 2024-07-27 21:51 | XMS_ITS | Clinical Summary ---
Author Organization [facility] Joyce Kingsley Address [address] [address] Care Team Providers Care Soft Hat Binder Name Role Phone Jose Rivera MD Primary [...] Encounters Date Type Department Care Team Description 07/27/2024 Telephone [facility] Oncology and Hematology - Jose [address] [place] [address] Shayan Brown MD Lab Results 07/23/2024 Orders Only [facility] Oncology and Hematology - Jose [address] [place] [address] Shayan Brown MD Small cell lung cancer (CMS/HCC) 07/10/2024 Orders Only [facility] Oncology and Hematology - Jose [address] [place] [address] Shayan Brown MD 07/09/2024 Orders Only [facility] Oncology and Hematology - Jose [address] [place] [address] Shayan Brown MD Small cell lung cancer (CMS/HCC) 07/05/2024 External Device Data STL ABSTRACTION Provider, Abstract 06/28/2024 8:45 AM SALES REPRESENTATIVE GRAPHIC ART Office Visit [facility] Oncology and Hematology - Jose [address] [place] [address] Shayan Brown MD Small cell carcinoma of lung, unspecified laterality, unspecified part of lung (CMS/HCC) (Primary Dx) 06/28/2024 Orders Only [facility] Oncology and Hematology - Jose [address] Shayan Brown MD 06/28/2024 Abstract [facility] Oncology and Hematology - Jose [address] [place] [id number] Shayan Brown MD 06/28/2024 Telephone [facility] Oncology and Hematology - [address] [place] [id number] Shayan Brown MD Lab Results 06/27/2024 Orders Only [facility] Oncology and Hematology - [address] [place] [id number] Shayan Brown MD 06/26/2024 Orders Only [facility] Oncology and Hematology - Jose [address] [place] [id number] Shayan Brown MD 06/25/2024 Orders Only [facility] Oncology and Hematology - [address] [place] [address] Shayan Brown MD Small cell lung cancer (CMS/HCC) 06/11/2024 Orders Only [facility] Oncology and Hematology - Jose [address] [place] [address] Shayan Brown MD Small cell lung cancer (CMS/HCC) 05/28/2024 Orders Only [facility] Oncology and Hematology - Jose [address] [place] [address] Shayan Brown MD Small cell lung cancer (CMS/HCC) 05/23/2024 Orders Only [facility] Oncology and Hematology - Jose [address] [place] [address] Shayan Brown MD Chronic anemia (Primary Dx) 05/23/2024 Orders Only [facility] Oncology and Hematology - Jose [address] [place] [address] Shayan Brown MD 05/22/2024 9:45 AM SALES REPRESENTATIVE GRAPHIC ART Office Visit [facility] Oncology and Hematology - Jose [address] [place] [address] Shayan Brown MD Small cell carcinoma of lung, unspecified laterality, unspecified part of lung (CMS/HCC) (Primary Dx) 05/22/2024 Orders Only [facility] Oncology and Hematology - [address] [place] [address] Shayan Brown MD 05/21/2024 Orders Only [facility] Oncology and Hematology - [address] [place] [address] Shayan Brown MD 05/17/2024 Abstract [facility] Oncology and Hematology - Jose [address] [place] [address] Shayan Brown MD 05/17/2024 Orders Only [facility] Oncology and Hematology - Jose [address] Shayan Brown MD 05/16/2024 Telephone [facility] Oncology and Hematology - [address] Shayan Brown MD Lab Results 05/14/2024 Orders Only [facility] Oncology and Hematology - [address] [place] [id number] Shayan Brown MD Small cell lung cancer (CMS/HCC) 05/02/2024 Orders Only [facility] Oncology and Hematology - Jose [address] [place] [address] Shayan Brown MD 05/01/2024 Orders Only [facility] Oncology and Hematology - Jose [address] [place] [address] Shayan Brown MD 04/30/2024 10:15 AM SALES REPRESENTATIVE GRAPHIC ART Office Visit [facility] Oncology and Hematology - Jose [address] [place] [address] Shayan Brown MD Small cell lung cancer [...] Comments Blood Pressure 118/73 06/28/2024 8:45 AM SALES REPRESENTATIVE GRAPHIC ART Pulse 79 06/28/2024 8:45 AM SALES REPRESENTATIVE GRAPHIC ART Temperature 36.7 C (98 F) 06/28/2024 8:45 AM SALES REPRESENTATIVE GRAPHIC ART Respiratory Rate 16 06/28/2024 8:45 AM SALES REPRESENTATIVE GRAPHIC ART Oxygen Saturation 91% 06/28/2024 8:45 AM SALES REPRESENTATIVE GRAPHIC ART Inhaled Oxygen Concentration - - Weight 80.7 kg (178 lb) 06/28/2024 8:45 AM SALES REPRESENTATIVE GRAPHIC ART Height 172.7 cm (5' 8 ) 01/03/2024 1:56 PM CDT Body Mass Index 27.06 01/03/2024 1:56 PM CDT Plan of Treatment Upcoming Encounters Date Type Department Care Team (Late st Contact Info) Description 08/08/2024 9:45 AM SALES REPRESENTATIVE GRAPHIC ART Office Visit [facility] Oncology and Hematology - Jose [address] [facility] [address] [place] [address] Shayan Brown MD [address] [facility] [address] [place] [address] Health Maintenance Due Date Last [...] 02/27/2019 INFLUENZA VACCINE (#1) 2024 [place] Prev entative Visit/Annual Wellness Visit 06/13/2024 COLORECTAL SCREENING 05/12/2026 05/12/2016 Colorectal Cancer Screening 05/12/2026 Abdominal Aortic Aneurysm (AAA) Screening Completed 04/14/2018, 04/14/2018 Procedures Procedure Name Priority Date/Time Associated Diagnosis Comments BASIC METABOLIC PANEL Routine 07/09/2024 9:34 AM SALES REPRESENTATIVE GRAPHIC ART COMPREHENSIVE METABOLIC PANEL Routine 07/09/2024 9:31 AM SALES REPRESENTATIVE GRAPHIC ART BASIC METABOLIC PANEL Routine 06/28/2024 4:08 PM SALES REPRESENTATIVE GRAPHIC ART CHG BLOOD TYPING, ANTIGEN SCREEN Routine 06/26/2024 3:52 PM SALES REPRESENTATIVE GRAPHIC ART COMPREHENSIVE METABOLIC PANEL Routine 06/26/2024 3:16 PM SALES REPRESENTATIVE GRAPHIC ART BASIC METABOLIC PANEL Routine 06/26/2024 3:01 PM SALES REPRESENTATIVE GRAPHIC ART BASIC METABOLIC PANEL Routine 06/26/2024 2:59 PM SALES REPRESENTATIVE GRAPHIC ART CBC WITH DIFFERENTIAL Routine 06/26/2024 2:40 PM SALES REPRESENTATIVE GRAPHIC ART IRON LEVEL Routine 06/26/2024 12:16 PM SALES REPRESENTATIVE GRAPHIC ART CBC WITH DIFFERENTIAL Routine 05/21/2024 3:54 PM SALES REPRESENTATIVE GRAPHIC ART COMPREHENSIVE METABOLIC PANEL Routine 05/21/2024 2:37 PM SALES REPRESENTATIVE GRAPHIC ART BASIC METABOLIC PANEL Routine 05/21/2024 1:00 PM SALES REPRESENTATIVE GRAPHIC ART HEMOGLOBIN AND HEMATOCRIT Routine 2023 11:29 AM SALES REPRESENTATIVE GRAPHIC ART BASIC METABOLIC PANEL Routine 05/16/2024 4:06 PM SALES REPRESENTATIVE GRAPHIC ART CBC WITH DIFFERENTIAL Routine 05/16/2024 2:53 PM SALES REPRESENTATIVE GRAPHIC ART BASIC METABOLIC PANEL Routine 04/30/2024 4:19 PM SALES REPRESENTATIVE GRAPHIC ART CBC WITH DIFFERENTIAL Routine 04/30/2024 9:39 AM SALES REPRESENTATIVE GRAPHIC ART from Last 3 Months Results * BASIC METABOLIC PANEL (07/09/2024 9:34 AM SALES REPRESENTATIVE GRAPHIC ART) Only the most recent of7 resultswithin the time period is included. Blood us Shayan Brown MD CHEMISTRY ORDERABLES Final Resu lt * COMPREHENSIVE METABOLIC PANEL (07/09/2024 9:31 AM SALES REPRESENTATIVE GRAPHIC ART) Only the most recent of3 resultswithin the time period is included. Blood us Shayan Brown MD CHEMISTRY ORDERABLES Final Resu lt * CHG BLOOD TYPING, ANTIGEN SCREEN (06/26/2024 3:52 PM SALES REPRESENTATIVE GRAPHIC ART) us Shayan Brown MD CHG - LABORATORY Final Result * CBC WITH DIFFERENTIAL (06/26/2024 2:40 PM SALES REPRESENTATIVE GRAPHIC ART) Only the most recent of4 resultswithin the time period is included. Blood us Shayan Brown MD HEMATOLOGY ORDERABLES Final Res ult * IRON LEVEL (06/26/2024 12:16 PM SALES REPRESENTATIVE GRAPHIC ART) Blood Shayan Brown MD CHEMISTRY ORDERABLES Final Resu lt * HEMOGLOBIN AND HEMATOCRIT (05/18/2024 11:29 AM SALES REPRESENTATIVE GRAPHIC ART) Blood Shayan Brown MD HEMATOLOGY ORDERABLES Final Res ult from Last 3 Months Insurance [employer] [facility] MEDICAID [place] Care Teams Soft Hat Binder Relationship Specialty Start Date End Date Jose Rivera MD [address] [place] [address] PCP - General Family Practice 12/29/23
--- OUTSIDE RECORDS SUMMARY | 2024-07-27 21:51 | XMS_ITS | Encounter Summary ---
Author Organization [facility] Healthcare Address [address] [place] [address] Care Team Providers Care Customs Entry Clerk Name Role Phone Jose Rivera MD Primary Care Provider Justin Miller MD Unavailable Shayan Brown MD Unavailable [phone] Encounter Details Date Type Department Care Team (Late st Contact Info) Description 06/04/2024 Telephone [facility] - Interventional Radiology [address] [place] [address] Pearl Goldstein RN Social History [...] often do you attend chur ch or anabaptist services? 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
--- OUTSIDE RECORDS SUMMARY | 2024-07-27 21:51 | XMS_ITS | Referral Summary ---
Author Organization [place] [id number] [facility] Address [address] [place] [address] Care Team Providers Care Dub Room Engineer Name Role Phone Jose Rivera MD Primary Care Provider Justin Miller MD Unavailable Shayan Brown MD Unavailable [phone] Encounters Date Type Department Care Team Description 07/13/2024 1:41 PM ENGAGEMENT LIAISON - 07/13/2024 11:59 PM ENGAGEMENT LIAISON Hospital Encounter [facility] - Interventional Radiology [address] [place] [phone] Gall bladder inflammation Discharge Disposition: Discharge to home or self care 07/12/2024 Telephone [facility] - Interventional Radiology [address] [place] [phone] Juan Sierra RN 06/04/2024 Orders Only [facility] - Interventional Radiology [address] [place] [phone] Park Johns RN 06/04/2024 Telephone [facility] - Interventional Radiology [address] [place] [phone] Pearl Goldstein, ROBEL 06/04/2024 1:44 PM ENGAGEMENT LIAISON - 06/04/2024 11:59 PM ENGAGEMENT LIAISON Hospital Encounter [facility] - Interventional Radiology [address] [place] [phone] Gall bladder inflammation Discharge Disposition: Discharge to home or self care 06/04/2024 Orders Only [facility] - Interventional Radiology [address] [place] [phone] Pearl Goldstein, ROBEL 05/31/2024 Telephone [facility] - Interventional Radiology [address] [place] [phone] Pearl Goldstein, ROBEL 05/31/2024 Orders Only [facility] - Interventional Radiology [address] [place] [phone] Pearl Goldstein, ROBEL from Last 3 [...] often do you attend chur ch or amish services? Never 02/03/2023 Do you belong to any clubs o r organizations such as cheondoism groups, unions, fraternal or athletic groups, or [...] place to sleep or slept in a custodial (including now)? No 02/03/2023 Personal Safety Answer Date Recorded Have you ever been in or are you currently in a harmful physical or emotional relationship or is someone making you feel afraid or unsafe? Denies 07/13/2024 Sex and Gender Information Value Date Recorded Sex Assigned at Not on file Legal Sex Male 1:47 AM ENGAGEMENT LIAISON Gender Identity Not on file Sexual Orientation Not on file Last Filed Vital Signs Vital Sign Reading Time Taken Comments Blood Pressure 118/76 07/13/2024 2:20 PM ENGAGEMENT LIAISON Pulse 94 07/13/2024 2:20 PM ENGAGEMENT LIAISON Temperature 36.3 C (97.4 F) 07/13/2024 1:52 PM ENGAGEMENT LIAISON Respiratory Rate 18 07/13/2024 2:20 PM ENGAGEMENT LIAISON Oxygen Saturation 96% 07/13/2024 2:20 PM ENGAGEMENT LIAISON Inhaled Oxygen Concentration - - Weight 79.4 kg (175 lb 0.7 oz) 07/13/2024 1:52 P M ENGAGEMENT LIAISON Height 172.7 cm (5' 8 ) 07/13/2024 1:52 PM ENGAGEMENT LIAISON Body Mass Index 26.62 07/13/2024 1:52 PM ENGAGEMENT LIAISON Plan of Treatment Not on file Goals [...] as needed Medical Devices Explanted Type Area Contracts Manager Device Identifier Shelf Expiration Date Model / Serial / Lot [employer] Ian Advanix 10fr 7cm Rapid Exchange Temporary Taper Tip Thin Wall 2 [id number] - [id number] Explanted:Qty: 1 on 02/01/2023 at [facility] Stent N/A: Bile Duct [employer] Ian 11/17/2024 [id number] / / [id number] Description:Slipped out of d uct Procedures Procedure Name Priority Date/Time Associated Diagnosis Comments CHANGE BILIARY DRAINAGE CATHETER EXTERNAL OR INTERNAL EXTERNAL Schedule Routine, Read Routine (OP Routine) 07/13/2024 2:44 PM ENGAGEMENT LIAISON Gall bladder inflammation CHANGE BILIARY DRAINAGE CATHETER EXTERNAL OR INTERNAL EXTERNAL Schedule Routine, Read Routine (OP Routine) 06/04/2024 2:36 PM ENGAGEMENT LIAISON Gall bladder inflammation HEPATITIS C RNA, QUANTITATIVE, PCR Routine 04/14/2018 9:10 AM CDT from Last 3 Months or Most Recently Relevant to Health Maintenance Results * IR Change Biliary Drainage Catheter External Or Internal External (07/13/2024 2:44 PM ENGAGEMENT LIAISON) Anatomical Region Laterality Modality Body N/A X-Ray Angiograph y 07/13/2024 2:59 PM ENGAGEMENT LIAISON Impressions 07/13/2024 2:59 PM ENGAGEMENT LIAISON Successful biliary catheter change as described above. [...] saline slowly (over 30 seconds) once daily. [facility] - [phone] Electronically signed by: Jennifer Perry PA-C Narrative 07/13/2024 2:59 PM ENGAGEMENT LIAISON EXAMINATION: BILIARY TUBE CHANGE HISTORY/INDICATION: 73-year-old male [...] was obtained. Prior to beginning the procedure, [place] Protocol was performed to confirm the patient's [...] divided and an Amplatz guidewire in a Lincoln catheter were advanced through the catheter under fluoroscopic monitoring. The existing catheter was exchanged over the wire for a new 18-Iranian Haroon internal-external biliary drainage catheter with additional [...] was obtained. Prior to beginning the procedure, [place] Protocol was performed to confirm the patient's [...] divided and an Amplatz guidewire in a Lincoln catheter were advanced through the catheter under fluoroscopic monitoring. The existing catheter was exchanged over the wire for a new 18-Iranian Haroon internal-external biliary drainage catheter with additional [...] saline slowly (over 30 seconds) once daily. [facility] - [phone] Electronically signed by: Jennifer Perry PA-C Deven CEDILLO IMG IR PROCEDURES Final Re sult * IR Change Biliary Drainage Catheter External Or Internal External (06/04/2024 2:36 PM ENGAGEMENT LIAISON) Anatomical Region Laterality Modality Body N/A X-Ray Angiograph y 06/04/2024 3:18 PM ENGAGEMENT LIAISON Impressions 06/04/2024 3:18 PM ENGAGEMENT LIAISON Successful biliary catheter change as described above. [...] saline slowly (over 30 seconds) once daily. 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 At his last exchange was upsized to an 18-Iranian Haroon catheter with additional sideholes. He has [...] was obtained. Prior to beginning the procedure, [place] Protocol was performed to confirm the patient's [...] The catheter was then divided and an Appsindepson guidewire in a Lincoln catheter were advanced through the catheter under fluoroscopic monitoring. The existing catheter was exchanged over the wire for a new 18-Iranian Haroon internal-external biliary drainage catheter with additional [...] his last exchange was upsized to an 18-Iranian Haroon catheter with additional sideholes. He has [...] was obtained. Prior to beginning the procedure, [place] Protocol was performed to confirm the patient's [...] The catheter was then divided and an Appsindepson guidewire in a Lincoln catheter were advanced through the catheter under fluoroscopic monitoring. The existing catheter was exchanged over the wire for a new 18-Iranian Haroon internal-external biliary drainage catheter with additional [...] saline slowly (over 30 seconds) once daily. [facility] - [phone] Electronically signed by: Deven Isaac PA-C us Deven CEDILLO IMG IR PROCEDURES Final Re sult * (ABNORMAL) Hepatitis C (HCV) RNA PCR, quantitative (04/14/2018 9:10 AM CDT) HCV RNA IU/mL 54,107 IU/mL HCV RNA log IU/mL 4.73 log IU/mL 018 5:33 PM [facility] HISTORICAL RESULTS HCV quant by [...] and Cellular Tissue-Based Products (HCT/P). Performed by [employer], [address] [place] [address] [email or web address], Aaron Esparza MD, Lab. Director 04/14/2018 9:10 AM CDT 04/14/2018 9:28 AM CDT us Amari Frazier MD LAB MICROBIOLOGY - GENERAL NIKHIL MEYERS Final Result [facility] HISTORICAL RESULTS from Last 3 Months or Most Recently Relevant to Health Maintenance Insurance [facility] HUMANA MEDICARE HMO HUMANA MEDICARE HMO Member Subscriber Plan / Payer ( fective 2019-Present) Name:Lee Cotto Sr. Relation to Subscriber:Self Name:Lee Cotto Sr. Payer ID:[id number] (NAIC) Type:MEDICARE RISK OTHER Address: [address] HUMANA MEDICARE HMO IDPA HUMANA MEDICARE HMO IDPA DEPT OF LABOR - OW WORKERS COMPENSATION GENERIC Advance Directives For more information, please contact: [phone] * Full Code (Latest Code Status on [...] 1:22 AM 02/08/2023 5:48 PM Care Teams Dub Room Engineer Relationship Specialty Start Date End Date Jose Rivera MD [address] [place] [address] PCP - General 08/29/17 [place] [address] [place] [address] Consulting Physician Gastroenterology 02/08/23 Shayan Brown MD [address] [place] [phone] Referring Physician Hematology 01/13/24
--- OUTSIDE RECORDS SUMMARY | 2024-07-27 21:51 | XMS_ITS | Clinical Summary ---
Author Organization [facility] Address [address] [place] [address] Care Team Providers Care Powder Operator Name Role Phone Jose Rivera MD Primary Care Provider [phone] Social History Tobacco Use Types Packs/Day Years [...] Screening Colonoscopy (10 Years) 1950 PHQ-2 (Physician Pitts) 1962 Hepatitis C 1968 DTaP, Tdap and Td Vaccines ( 1 - Tdap) 1969 Zoster Vaccines (1 of 2) 2000 Annual Medicare Wellness Visit 12/05/2015 Pneumococcal Vaccine: 65+ Ye ars (1 of 1 - PCV) 12/05/2015 COVID-19 Vaccine ( - 2023-2 5 season) 2024 Influenza Adult (#1) 2024 PHQ-2 (Physician Pitts) 06/13/2024 RSV Immunization or 60+ Years (1 [...] this topic Insurance MEDICAID HUMANA Care Teams Powder Operator Relationship Specialty Start Date End Date Jose Rivera MD [address] [place] [address] PCP - General FAMILY PRACTICE 09/15/22
--- OUTSIDE RECORDS SUMMARY | 2024-07-27 21:51 | XMS_ITS | Clinical Summary ---
Author Organization [place] [id number] [facility] Address [address] [place] [address] Care Team Providers Care Hearing Impaired Teacher Name Role Phone Jose Rivera MD Primary Care Provider [phone] Justin Miller MD Unavailable [phone] Shayan Brown MD Unavailable [phone] Allergies Active Allergy Reactions Criticality Noted [...] Department Care Team Description 07/13/2024 1:41 PM SAFETY ADMINISTRATOR - 07/13/2024 11:59 PM SAFETY ADMINISTRATOR Hospital Encounter [facility] - Interventional Radiology [address] [place] [phone] Gall bladder inflammation Discharge Disposition: Discharge to home or self care 07/12/2024 Telephone [facility] - Interventional Radiology [address] [place] [phone] Juan Sierra RN 06/04/2024 1:44 PM SAFETY ADMINISTRATOR - 06/04/2024 11:59 PM SAFETY ADMINISTRATOR Hospital Encounter [facility] - Interventional Radiology [address] [place] [phone] Gall bladder inflammation Discharge Disposition: Discharge to home or self care 06/04/2024 Orders Only [facility] - Interventional Radiology [address] [place] [phone] Park Johns RN 06/04/2024 Telephone [facility] - Interventional Radiology [address] [place] [phone] Pearl Goldstein, ROBEL 06/04/2024 Orders Only [facility] - Interventional Radiology [address] [place] [phone] Pearl Goldstein, RN 05/31/2024 Telephone [facility] - Interventional Radiology [address] [place] [phone] Pearl Goldstein, RN 05/31/2024 Orders Only [facility] - Interventional Radiology [address] [place] [phone] Pearl Goldstein, RN from Last 3 Months Immunizations Name Administration Dates Next Due Sars-CoV-2, Unspecified 08/20/2020 ZOSTER Recombinant 02/27/2019 Surgical History Surgery Date Site/Laterality Comments LUMBAR FUSION Arthrodesis Lumbar - (Added by TW Conv) ANKLE SURGERY 06/13/2015 - 06/12/2016 Left Ankle Surgery - (Added by TW Conv) AR NJX AA&/STRD TFRML EPI LUMBAR/SACRAL 1 LEVEL [...] Brother 1 Skipnicole Cotto Diabetes Brother 2 [place] Dilcia Cotto Stroke Brother 2 Raj Cotto [...] often do you attend chur ch or temple services? Never 02/03/2023 Do you belong to any clubs o r organizations such as yazdanism groups, unions, fraternal or athletic groups, or [...] on file Legal Sex Male 1:47 AM SAFETY ADMINISTRATOR Gender Identity Not on file Sexual Orientation Not on file Obstetrics History Last Filed Vital Signs Vital Sign Reading Time Taken Comments Blood Pressure 118/76 07/13/2024 2:20 PM SAFETY ADMINISTRATOR Pulse 94 07/13/2024 2:20 PM SAFETY ADMINISTRATOR Temperature 36.3 C (97.4 F) 07/13/2024 1:52 PM SAFETY ADMINISTRATOR Respiratory Rate 18 07/13/2024 2:20 PM SAFETY ADMINISTRATOR Oxygen Saturation 96% 07/13/2024 2:20 PM SAFETY ADMINISTRATOR Inhaled Oxygen Concentration - - Weight 79.4 kg (175 lb 0.7 oz) 07/13/2024 1:52 P M SAFETY ADMINISTRATOR Height 172.7 cm (5' 8 ) 07/13/2024 1:52 PM SAFETY ADMINISTRATOR Body Mass Index 26.62 07/13/2024 1:52 PM SAFETY ADMINISTRATOR Plan of Treatment Health Maintenance Due Date [...] as needed Medical Devices Explanted Type Area Accountant Property Device Identifier Shelf Expiration Date Model / Serial / Lot [employer] Ian Advanix 10fr 7cm Rapid Exchange Temporary Taper Tip Thin Wall 2 [id number] - [id number] Explanted:Qty: 1 on 02/01/2023 at [facility] Stent N/A: Bile Duct [employer] Ian 11/17/2024 [id number] / / [id number] Description:Slipped out of d uct Procedures Procedure Name Priority Date/Time Associated Diagnosis Comments CHANGE BILIARY DRAINAGE CATHETER EXTERNAL OR INTERNAL EXTERNAL Schedule Routine, Read Routine (OP Routine) 07/13/2024 2:44 PM SAFETY ADMINISTRATOR Gall bladder inflammation CHANGE BILIARY DRAINAGE CATHETER EXTERNAL OR INTERNAL EXTERNAL Schedule Routine, Read Routine (OP Routine) 06/04/2024 2:36 PM SAFETY ADMINISTRATOR Gall bladder inflammation HEPATITIS C RNA, QUANTITATIVE, PCR Routine 04/14/2018 9:10 AM CDT from Last 3 Months or Most Recently Relevant to Health Maintenance Results * IR Change Biliary Drainage Catheter External Or Internal External (07/13/2024 2:44 PM SAFETY ADMINISTRATOR) Anatomical Region Laterality Modality Body N/A X-Ray Angiograph y 07/13/2024 2:59 PM SAFETY ADMINISTRATOR Impressions 07/13/2024 2:59 PM SAFETY ADMINISTRATOR Successful biliary catheter change as described above. [...] saline slowly (over 30 seconds) once daily. [facility] - [phone] Electronically signed by: Jennifer Perry PA-C Narrative 07/13/2024 2:59 PM SAFETY ADMINISTRATOR EXAMINATION: BILIARY TUBE CHANGE HISTORY/INDICATION: 73-year-old male [...] was obtained. Prior to beginning the procedure, [place] Protocol was performed to confirm the patient's [...] divided and an Amplatz guidewire in a Hackberry catheter were advanced through the catheter under fluoroscopic monitoring. The existing catheter was exchanged over the wire for a new 18-Nigerien Haroon internal-external biliary drainage catheter with additional [...] was obtained. Prior to beginning the procedure, [place] Protocol was performed to confirm the patient's [...] divided and an Amplatz guidewire in a Hackberry catheter were advanced through the catheter under fluoroscopic monitoring. The existing catheter was exchanged over the wire for a new 18-Nigerien Haroon internal-external biliary drainage catheter with additional [...] saline slowly (over 30 seconds) once daily. [facility] - [phone] Electronically signed by: Jennifer Perry PA-C Deven CEDILLO IMKyler IR PROCEDURES Final Re sult * IR Change Biliary Drainage Catheter External Or Internal External (06/04/2024 2:36 PM SAFETY ADMINISTRATOR) Anatomical Region Laterality Modality Body N/A X-Ray Angiograph y 06/04/2024 3:18 PM SAFETY ADMINISTRATOR Impressions 06/04/2024 3:18 PM SAFETY ADMINISTRATOR Successful biliary catheter change as described above. [...] saline slowly (over 30 seconds) once daily. 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 At his last exchange was upsized to an 18-Nigerien Haroon catheter with additional sideholes. He has [...] was obtained. Prior to beginning the procedure, [place] Protocol was performed to confirm the patient's [...] divided and an Bentson guidewire in a Hackberry catheter were advanced through the catheter under fluoroscopic monitoring. The existing catheter was exchanged over the wire for a new 18-Nigerien Haroon internal-external biliary drainage catheter with additional [...] his last exchange was upsized to an 18-Nigerien Haroon catheter with additional sideholes. He has [...] was obtained. Prior to beginning the procedure, [place] Protocol was performed to confirm the patient's [...] divided and an Bentson guidewire in a Hackberry catheter were advanced through the catheter under fluoroscopic monitoring. The existing catheter was exchanged over the wire for a new 18-Nigerien Haroon internal-external biliary drainage catheter with additional [...] saline slowly (over 30 seconds) once daily. [facility] - [phone] Electronically signed by: Deven Isaac PA-C Deven CEDILLO IMG IR PROCEDURES Final Re sult * (ABNORMAL) Hepatitis C (HCV) RNA PCR, quantitative (04/14/2018 9:10 AM CDT) HCV RNA IU/mL 54,107 IU/mL 04/16/2018 5:33 PM [employer] HISTORICAL RESULTS HCV RNA log IU/mL 4.73 log IU/mL 018 5:33 PM [employer] [facility] [employer] HISTORICAL RESULTS HCV quant by NAAT interp Detected( H) Not Detected 04/16/2018 5:33 PM [employer] HISTORICAL RESULTS Comment: INTERPRETIVE INFORMATION: HCV by [...] and Cellular Tissue-Based Products (HCT/P). Performed by [facility], [address] [place] [address],[place] [address] [email or web address], Aaron Esparza MD, Lab. Director 04/14/2018 9:10 AM CDT 04/14/2018 9:28 AM CDT Amari Frazier MD LAB MICROBIOLOGY - GENERAL L[facility]YPad[facility] Final Result [facility] HISTORICAL RESULTS from Last 3 Months or Most Recently Relevant to Health Maintenance Insurance IDID [facility] MEDICARE HMO [facility] MEDICARE O IDPA HUMANA MEDICARE HMO IDPA [facility] MEDICARE O IDPA [id number] DEPT OF LABOR - [facility] WORKERS COMPENSATION GENERIC [id number] [address] WORKERS COMPENSATION GENERIC Advance Directives For more information, please contact: [phone] * Full Code (Latest Code Status on [...] 1:22 AM 02/08/2023 5:48 PM Care Teams Hearing Impaired Teacher Relationship Specialty Start Date End Date Jose Rivera MD [address] [place] [id number] PCP - General 08/29/17 [place] [address] [place] [address] Consulting Physician Gastroenterology 02/08/23 Shayan Brown MD [address] [place] [phone] Referring Physician Hematology 01/13/24
--- OUTSIDE RECORDS SUMMARY | 2024-07-27 21:51 | XMS_ITS | Encounter Summary ---
Author Organization [facility] [employer] [facility] Address [address] [place] [address] Care Team Providers Care Programming Internship Name Role Phone Jose Rivera MD Primary Care Provider [phone] Encounter Details Date Type Department Care Team (Late st Contact Info) Description 07/23/2024 Orders Only [facility] Oncology and Hematology - Jose [address] [facility] [address] [place] [address] Shayan Brown MD [address] [facility] [address] [place] [address] Small cell lung cancer (CMS/HCC) [...] st Contact Info) Description 08/08/2024 9:45 AM MANAGER E LEARNING Office Visit [facility] Oncology and Hematology [facility] [address] [place] [address] Shayan Brown MD [address] [facility] [address] [place] [address] documented as of this encounter Visit Diagnoses Diagnosis Small cell lung cancer (CMS/HCC) Malignant neoplasm of bronchus and lung, unspecified site documented in this encounter Care Teams Programming Internship Relationship Specialty Start Date End Date Jose Rivera MD [address] [place], [place] [phone] PCP - General Family Practice 12/29/23 documented as of this encounter
--- OUTSIDE RECORDS SUMMARY | 2024-07-27 21:51 | XMS_ITS | Encounter Summary ---
Author Organization [facility] [employer] [facility] Address [address] [place] [address] Care Team Providers Care Newspaper Editor Managing Name Role Phone Jose Rivera MD Primary Care Provider [phone] Reason for Visit * Reason Onset Date Comments Lab Results 07/27/2024 Encounter Details Date Type Department Care Team (Late st Contact Info) Description 07/27/2024 Telephone [facility] Oncology and Hematology - Jose [address] [facility] [address] [place] [address] Shayan Brown MD [address] [facility] [address] [place] [address] Lab Results Social History Tobacco Use Types Packs/Day Years [...] PM CDT documented as of this encounter Miscellaneous Notes * Telephone Encounter - Rola Robles - 07/27/2024 1:47 PM CST Patient came in today for Retacrit injection. His platlets were low at 16,000. We set him up for a transfusion. When speaking with patient he stated that he was going to the ER after his injection because he thought he had pneumonia because he was coughing up blood. I let him know that it could be because of his blood counts. We cancelled the injection for today and sent him to the hospital. ALS EXAMINER documented in this encounter Plan of Treatment Upcoming Encounters Date Type Department Care Team (Late st Contact Info) Description 08/08/2024 9:45 AM APPEALS EXAMINER Office Visit [facility] Oncology and Hematology - [place] [address] [facility] [address] [place] [address] Shayan Brown MD [address] [facility] [address] [place] [address] documented as of this encounter Visit Diagnoses Not on filedocumented in this encounter Care Teams Newspaper Editor Managing Relationship Specialty Start Date End Date Jose Rivera MD [address] [place], [place] [phone] PCP - General Family Practice 12/29/23 documented as of this encounter
--- OUTSIDE RECORDS SUMMARY | 2024-07-27 21:51 | XMS_ITS | Encounter Summary ---
Author Organization [facility] Healthcare Address [address] [place] [address] Care Team Providers Care Joinery Patternmaker Name Role Phone Jose Rivera MD Primary Care Provider Justin Miller MD Unavailable [phone] Shayan Brown MD Unavailable [phone] Encounter Details Date Type Department Care Team (Late st Contact Info) Description 03/27/2019 Telephone [facility] [address] [facility] [address] [place] [address] Sumanth Reyes MD [address] [facility] [address] [facility] [phone] [place], [place] [id number] Social History Tobacco Use Types Packs/Day Years Used Date Smoking Tobacco: Former Smokeless Tobacco: Never Alcohol Use Standard Drinks/Week Comments Yes 0 (1 standard drink = 0.6 oz pur e alcohol) socially Sex and Gender Information Value Date Recorded Sex Assigned at Not on file Legal Sex Male 1:47 AM ADHESIVE PRIMER Gender Identity Not on file Sexual Orientation [...] on filedocumented in this encounter Care Teams Joinery Patternmaker Relationship Specialty Start Date End Date Jose Rivera MD [address] [place] [id number] PCP - General 08/29/17 [place] [address] [place] [address] Consulting Physician Gastroenterology 02/08/23 Shayan Brown MD [address] [place] [phone] Referring Physician Hematology 01/13/24 documented as of this encounter
[2024-07-27] MEDS: guaiFENesin 12 HR 600 MG TABCR PO (21:54)
--- NOTE | 2024-07-27 23:18 | ADMGEN ---
This patient, Lee Cotto Sr., was admitted to [facility] Surg Room 325-01. Patient/family oriented to hospital policies and general routines including ID bracelet, bed and alarms, visiting hours, pain management, procedures, bathroom and other care routines, personal items, smoking policy, room service/diet, and visiting hours. Information on how to activate the Rapid Response Team has been discussed. Patient/Family are encouraged to report perceived risks to care and to ask questions if they do not understand what they are told or what they should do.
[2024-07-27 23:51] LABS: Hematocrit 21.9 % (42.0-52.0); Hemoglobin 7.1 g/dL (14.0-18.0); Immature Platelet Fraction Pct 1.1 % (0.9-11.2); Mean Corpuscular HGB Conc 32.4 g/dl (32-36); Mean Corpuscular Volume 89.4 fl (80-100); Mean Platelet Volume 9.7 fl (7.4-10.4); Red Blood Count 2.45 M/mm3 (4.6-6.20); Red Cell Distribution Width 14.6 % (11.5-14.5)
[2024-07-27] MEDS: ACETAMINOPHEN 325 MG TABLET 650 MG PO (23:55)
[2024-07-28] VITALS (18 sets, daily range): BP systolic 99–129; BP diastolic 60–75; PULSE 100–124; RESP 18–30; TEMP 37–38.2; O2SAT 91–98
[2024-07-28 00:10] LABS: White Blood Count 1.3 K/mm3 (4.5-10.0)
[2024-07-28 00:16] LABS: Platelet Count Result 50 k/mm3 (150-375)
[2024-07-28 00:31] LABS: Anisocytosis 1+; Band Neutrophils Percent 16 % (0-6); Dohle Bodies Present; Monocytes Absolute Manual 0.41 K/mm3 (0.1-0.90); Monocytes Percent Manual 32 % (3-9); Neutrophils Absolute Manual 0.78 K/mm3 (1.3-6.7); Neutrophils Percent Manual 44 % (46-73); Ovalocytes 1+; Platelet Estimate Decreased (Adequate); Poikilocytosis 1+; Schistocytes None Seen; Total Cells Counted 25
[2024-07-28 00:32] LABS: Hypochromasia 1+
[2024-07-28] MEDS: IPRATROPIUM 0.5 MG/ALBUTEROL SULFATE 2.5 MG AMPUL.NEB 3 ML INHALATION ×4 (02:31→21:06)
[2024-07-28] MEDS: CEFEPIME 1 GM/NS 50 ML 1 GM/50 ML BAG IVPB ×2 (04:52→17:03)
[2024-07-28 05:10] LABS: Hematocrit 22.5 % (42.0-52.0); Hemoglobin 7.3 g/dL (14.0-18.0); Immature Platelet Fraction Pct 1.5 % (0.9-11.2); Mean Corpuscular HGB Conc 32.4 g/dl (32-36); Mean Corpuscular Hemoglobin 29.1 pg (26-34); Mean Corpuscular Volume 89.6 fl (80-100); Mean Platelet Volume 9.7 fl (7.4-10.4); Red Blood Count 2.51 M/mm3 (4.6-6.20); Red Cell Distribution Width 14.9 % (11.5-14.5)
[2024-07-28 05:16] LABS: Platelet Count Result 45 k/mm3 (150-375); White Blood Count 1.6 K/mm3 (4.5-10.0)
[2024-07-28 05:28] LABS: Anion Gap 14 mmol/L (4-12); Blood Urea Nitrogen 44 mg/dL (9-20); Calcium 8.3 mg/dL (8.4-10.2); Carbon Dioxide 14 mmol/L (22-30); Chloride 112 mmol/L (98-107); Estimated CRCL calculation 22 ml/min; Estimated Glomerular Filt Rate 29; Glucose 80 mg/dL (65-110); Potassium 3.6 mmol/L (3.4-5.0); Sodium 140 mmol/L (137-145)
[2024-07-28 05:37] LABS: Anisocytosis 1+; Band Neutrophils Percent 8 % (0-6); Burr Cells 1+; Lymphocytes Absolute Manual 0.25 K/mm3 (1.1-4.5); Monocytes Absolute Manual 0.06 K/mm3 (0.1-0.90); Monocytes Percent Manual 4 % (3-9); Neutrophils Absolute Manual 1.28 K/mm3 (1.3-6.7); Neutrophils Percent Manual 72 % (46-73); Ovalocytes 1+; Platelet Estimate Decreased (Adequate); Poikilocytosis 1+; Schistocytes None Seen; Smudge Cells PRESENT; Total Cells Counted 25
[2024-07-28] MEDS: BUDESONIDE RESPULE NEB 0.5 MG/2 ML AMP 0.25 MG INHALATION ×2 (08:09→21:06)
--- NOTE | 2024-07-28 09:02 | P.PNIM_ITS ---
Progress Note: A&P Assessment and Plan (1) Sepsis: Qualifiers: Sepsis acute organ dysfunction status: without acute organ dysfunction Sepsis type: sepsis due to unspecified organism Qualified Code(s): A41.9 - S epsis, unspecified organism Code(s): A41.9 - Sepsis, unspecified organism Status: Acute (2) HTN (hypertension): Qualifiers: Hypertension type: unspecified Qualified Code(s): I10 - Essential (primary) hypertension Code(s): I10 - Essential (primary) hypertension Status: Chronic (3) Small cell lung cancer: Onset Date: 02/2024 Qualifiers: Laterality: right Lung location: unspecified part of lung Qualified Code(s): C34.91 - Malignant neoplasm of unspecified part of right bronchus or lung Code(s): C34.90 - Malignant neoplasm of unspecified part of unspecified bronchus or lung Status: Chronic (4) Pancytopenia due to antineoplastic chemotherapy: Code(s): D61.810 - Antineoplastic chemotherapy induced pancytopenia; T45.1X5A - Adverse effect of antineoplastic and immunosuppressive drugs, initial encounter Status: Acute Plan (1) Sepsis: Qualifiers: Sepsis acute organ dysfunction status: without acute organ dysfunction Sepsis type: sepsis due to unspecified organism Qualified Code(s): A41.9 - Sepsis, unspecified organism Code(s): A41.9 - Sepsis, unspecified organism Status: Acute Assessment and Plan: - meets SIRS criteria: HR, RR. WBC 1.0. No current hypoxia or hypotension. - lactic acid and procalcitonin ordered - 30 mL/kg = 2.5L, start with 2L bolus and assess toleration. - suspected source: Pneumonia - started on cefepime, azithromycin, vancomycin - blood cultures drawn on 07/27, follow - monitor hemodynamic stability Blood pressure still soft Start normal saline IV 150 mL/hour (2) Pneumonia: Qualifiers: Laterality: bilateral Lung location: unspecified part of lung P neumonia type: due to unspecified organism Qualified Code(s): J18.9 - Pneumonia, unspecified organism Code(s): J18.9 - Pneumonia, unspecified organism Status: Acute Assessment and Plan: CXR: Multifocal left-sided consolidation, consistent with pneumonia. - risk factors and complicating factors: pancytopenia, lung cancer - started on HAP tx: Vancomycin, cefepime, azithromycin - MRSA PCR, viral PCR, and sputum culture ordered - baseline O2 requirement: 3L NC - supportive care Pancytopenia WBC 1.0, HGB 6.0, platelet count 18 Possible due to chemo and radiation therapy - oncology consulted, awaiting formal recs - transfuse 2 units of PRBC and 2 units of plateles - trend Follow stool guaiac, ferritin level, iron panel, reticulocyte Small cell lung cancer: Onset Date: 02/2024 Qualifiers: Laterality: right Lung location: unspecified part of lung Qualified Code(s): C34.91 - Malignant neoplasm of unspecified part of right bronchus or lung Code(s): C34.90 - Malignant neoplasm of unspecified part of unspecified bronchus or lung Status: Chronic Assessment and Plan: Hx of lung cancer, has underwent chemo and radiation. Last chemotherapy was on 06/18/24 and last radiation treatment on 05/04/24. - oncology consulted, awaiting formal recs PRISCILLA on CKD creatinine 2.7 and GFR 28, previously 1.6 and GFR 52 on 07/16/2024 Likely resulting from sepsis Received IV fluids: 2L bolus - monitor I&Os Renal function is improving Continue normal saline IV by 150 mL/hour (6) HTN (hypertension): Qualifiers: Hypertension type: unspecified Qualified Code(s): I10 - Essential (primary) hypertension Code(s): I10 - Essential (primary) hypertension Status: Chronic Assessent and Plan: Blood pressure low Discontinue home medication metoprolol p.o. (7) Obstructive sleep apnea: Code(s): G47.33 - Obstructive sleep apnea (adult) (pediatric) Status: Acute Assessment and Plan: - does not use CPAP Plan Diet: Heart healthy GI Prophylaxis: Not currently indicated DVT Prophylaxis: SCDs Lines: peripheral Code Status: DNR Subjective Date/time seen: 07/28/24 09:02 Interval history: Patient has had fever overnight, 101.3, also has tachycardia tachypnea, patient is on 3.5 L oxygen over the night, blood pressure soft in the morning, 99/64. Patient still has cough with thick phlegm, patient has shortness breath but feeling better today. Patient denies abdomen pain nausea vomiting diarrhea Exam Narrative: GENERAL: Pleasant, in no acute distress. Well-nourished. - EYES: EOMI. Anicteric. - HENT: Moist mucous membranes. - LUNGS: Coarse breath sound bilaterall y, no wheezing, rhonchi, or rales. - CARDIOVASCULAR: Regular rate and rhyth m. No murmur. No JVD. - ABDOMEN: Soft, non-tender and non-dist ended. No palpable masses. - EXTREMITIES: No edema. Peripheral puls es 2+. Non-tender. - NEUROLOGIC: No focal neurological defi cits. CN II-XII grossly intact. - PSYCHIATRIC: Awake, Alert and oriented x 3. Appropriate mood and affect. - SKIN: No rashes or lesions. Warm. - LYMPH: No cervical lymphadenopathy. Objective Data Vital Signs Vital Signs: Vital Signs - 24 hr 07/27/24 11:49 07/27/24 13:00 07/27/24 13:02 Temperature 98.2 F Pulse Rate 55 L 120 H Respiratory Rate 36 H 29 H 26 H Blood Pressure 102/43 L 104/55 L Pulse Oximetry 99 100 99 Oxygen Delivery Nasal Cannula Oxygen Flow Rate 2 3 Fraction of Inspired Oxygen 07/27/24 14:00 07/27/24 14:49 07/27/24 15:22 Temperature 97.8 F Pulse Rate 119 H 109 H 116 H Respiratory Rate 27 H 20 25 H Blood Pressure 106/63 106/64 114/62 Pulse Oximetry 99 100 100 Oxygen Delivery Oxygen Flow Rate Fraction of Inspired Oxygen 07/27/24 15:45 07/27/24 15:47 07/27/24 15:51 Temperature 97.6 F Pulse Rate 114 H 109 H 115 H Respiratory Rate 27 H 24 H 27 H Blood Pressure 105/53 L 103/62 103/62 Pulse Oximetry 98 100 100 Oxygen Delivery Oxygen Flow Rate Fraction of Inspired Oxygen 07/27/24 15:59 07/27/24 16:00 07/27/24 16:32 Temperature 99.1 F 99.0 F 99.7 F H Pulse Rate 118 H 110 H 109 H Respiratory Rate 23 H 27 H 25 H Blood Pressure 108/52 L 108/54 L 103/56 L Pulse Oximetry 100 98 100 Oxygen Delivery Oxygen Flow Rate Fraction of Inspired Oxygen 07/27/24 16:47 07/27/24 16:49 07/27/24 17:00 Temperature 99.1 F 99.1 F Pulse Rate 112 H 116 H 105 H Respiratory Rate 22 H 21 H 23 H Blood Pressure 122/56 L 122/56 L 118/71 Pulse Oximetry 99 99 100 Oxygen Delivery Oxygen Flow Rate Fraction of Inspired Oxygen 07/27/24 17:15 07/27/24 17:31 07/27/24 17:45 Temperature 98.7 F Pulse Rate 107 H 112 H 117 H Respiratory Rate 27 H 25 H 26 H Blood Pressure 137/71 142/87 H 138/67 Pulse Oximetry 100 98 100 Oxygen Delivery Oxygen Flow Rate Fraction of Inspired Oxygen 07/27/24 17:47 07/27/24 18:00 07/27/24 18:17 Temperature 98.7 F Pulse Rate 115 H 109 H 113 H Respiratory Rate 24 H 25 H 20 Blood Pressure 138/67 135/82 Pulse Oximetry 100 100 100 Oxygen Delivery Oxygen Flow Rate Fraction of Inspired Oxygen 07/27/24 18:47 07/27/24 19:01 07/27/24 19:09 Temperature 98.7 F Pulse Rate 123 H 120 H Respiratory Rate 24 H 28 H Blood Pressure 131/70 134/65 Pulse Oximetry 97 97 100 Oxygen Delivery Nasal Cannula Oxygen Flow Rate 3 Fraction of Inspired Oxygen 07/27/24 19:35 07/27/24 19:52 07/27/24 20:30 Temperature 98.9 F 99 F Pulse Rate 112 H 122 H 120 H Respiratory Rate 26 H 21 H 27 H Blood Pressure 140/84 127/61 134/65 Pulse Oximetry 100 96 99 Oxygen Delivery Oxygen Flow Rate Fraction of Inspired Oxygen 07/27/24 20:41 07/27/24 20:45 07/27/24 20:48 Temperature 99.0 F Pulse Rate 121 H 118 H Respiratory Rate 29 H 27 H Blood Pressure 120/70 120/70 Pulse Oximetry 100 97 100 Oxygen Delivery Nasal Cannula Oxygen Flow Rate 3 Fraction of Inspired Oxygen 07/27/24 21:00 07/27/24 21:03 07/27/24 21:03 Temperature 99.2 F Pulse Rate 121 H 120 H 119 H Respiratory Rate 27 H 28 H 28 H Blood Pressure 124/69 109/65 Pulse Oximetry 98 100 Oxygen Delivery Oxygen Flow Rate Fraction of Inspired Oxygen 07/27/24 21:15 07/27/24 21:30 07/27/24 22:03 Temperature 99.0 F Pulse Rate 124 H 124 H 128 H Respiratory Rate 26 H 25 H 30 H Blood Pressure 109/65 126/62 131/66 Pulse Oximetry 100 100 100 Oxygen Delivery Oxygen Flow Rate Fraction of Inspired Oxygen 07/27/24 23:55 07/27/24 23:55 07/28/24 00:00 Temperature 101.3 F H 101.3 F H Pulse Rate 116 H Respiratory Rate 28 H Blood Pressure 126/70 Pulse Oximetry 95 91 Oxygen Delivery Nasal Cannula Oxygen Flow Rate 3 Fraction of Inspired Oxygen 07/28/24 00:49 07/28/24 02:31 07/28/24 02:38 Temperature 100.7 F H Pulse Rate 120 H 108 H 113 H Respiratory Rate 30 H 22 H 22 H Blood Pressure 121/74 Pulse Oximetry 94 Oxygen Delivery Oxygen Flow Rate Fraction of Inspired Oxygen 07/28/24 04:01 07/28/24 05:33 07/28/24 08:09 Temperature 100 F H 99 F Pulse Rate 110 H Respiratory Rate 22 H Blood Pressure 99/64 L Pulse Oximetry 98 95 Oxygen Delivery Nasal Cannula Oxygen Flow Rate 3.5 Fraction of Inspired Oxygen 34 07/28/24 08:09 07/28/24 08:19 Temperature Pulse Rate 107 H 112 H Respiratory Rate 20 24 H Blood Pressure Pulse Oximetry Oxygen Delivery Oxygen Flow Rate Fraction of Inspired Oxygen Intake/Output Intake/Output: Intake & Output 07/25/24 07/26/24 07/27/24 07/28/24 23:59 23:59 23:59 23:59 Intake Total 3532 150 Output Total 900 Balance 3532 -750 Meds/Results Medications: Active Medications Generic Name Dose Route Start Last Admin Trade Name Freq PRN Reason Stop Dose Admin Acetaminophen 650 mg 07/27/24 14:41 07/27/24 23:55 Acetaminophen 325 Mg Tablet PO 650 mg Q4H PRN Administration Mild Pain (1-3) or Fever Hydrocodone Bitart/Acetaminophen 1 tab 07/27/24 14:41 Hydrocodone/Acetaminophen (*Crx) 5-325 Mg Tablet PO Q4H PRN Pain Rated 4-6 Albuterol 1 - 2 puff 07/27/24 23:05 Albuterol Sulfate (*Sp) Aerosol 1 Puff INHALATION Q4-6H PRN sob/wheezing Albuterol/Ipratropium 3 ml 07/27/24 20:00 07/28/24 08:09 Ipratropium 0.5 Mg/Albuterol Sulfate 2.5 Mg Ampul.Neb 3 Ml INHALATION 3 ml Q6HRT BALWINDER Administration Allopurinol 300 mg 07/28/24 09:00 Allopurinol 300 Mg Tablet PO DAILY [facility] Ascorbic Acid 500 mg 07/28/24 09:00 Ascorbic Acid 500 Mg Tablet PO QAM [facility] Aspirin 81 mg 07/28/24 09:00 Aspirin 81 Mg Chewable Tablet PO DAILY [facility] Baclofen 10 mg 07/27/24 23:01 Baclofen 10 Mg Tablet PO TID PRN Hiccups Benzonatate 100 mg 07/27/24 16:31 Benzonatate 100 Mg Capsule PO TID PRN Cough Budesonide 0.25 mg 07/28/24 08:00 07/28/24 08:09 Budesonide Respule Neb 0.5 Mg/2 Ml Amp INHALATION 0.25 mg Q12HRT [facility] Administration Cyanocobalamin 1,000 mcg 07/28/24 09:00 Cyanocobalamin 1,000 Mcg Tablet PO QAM [facility] Doxazosin Mesylate 8 mg 07/28/24 21:00 Doxazosin Mesylate 4 Mg Tablet PO HS [facility] Ergocalciferol 50,000 units 08/02/24 09:00 Ergocalciferol 50,000 Units Capsule PO WEEKLY [facility] Ferrous Sulfate 650 mg 07/28/24 09:00 Ferrous Sulfate [address] BY MOUTH DAILY [facility] Fluticasone Propionate 1 spray 07/27/24 23:01 Fluticasone Propionate 0.05% Na Spr 16 Gm Btl (*Bkc) NASAL DAILY PRN Congestion Folic Acid 1 mg 07/28/24 09:00 Folic Acid 1 Mg Tablet PO QAM [facility] Guaifenesin 600 mg 07/27/24 21:00 07/27/24 21:54 Guaifenesin 12 Hr 600 Mg Tabcr PO 600 mg Q12HR [facility] Administration Cefepime HCl 1 gm in 50 mls @ 100 mls/hr 07/27/24 18:00 07/28/24 04:52 Maxipime 1 Gm/Ns 50 Ml IVPB 100 mls/hr Q12H [facility] Administration Azithromycin 500 mg in 250 mls @ 250 mls/hr 07/28/24 19:00 Zithromax IVPB Q24H [facility] Loratadine 10 mg 07/28/24 09:00 Loratadine 10 Mg Tablet PO QAM [facility] Methocarbamol 500 mg 07/27/24 23:01 Methocarbamol 500 Mg Tablet PO PRN PRN back spasms Metoprolol Tartrate 25 mg 07/28/24 09:00 Metoprolol Tartrate 25 Mg Tablet PO DAILY BALWINDER Metoprolol Tartrate 25 mg 07/28/24 21:00 Metoprolol Tartrate 25 Mg Tablet PO HS [facility] Miscellaneous Information 0 each 07/27/24 00:01 Revefenacin Nonform Can Pt Bring From Home? XX 08/26/24 00:00 CLARIFY BALWINDER Miscellaneous Information 0 each 07/28/24 00:01 Budesonide 0.25mg Nonform Can Pt Bring From Home? XX 08/27/24 00:00 CLARIFY [facility] Montelukast Sodium 10 mg 07/27/24 09:00 Montelukast Sodium 10 Mg Tablet PO DAILY BAL[facility] Non-Formulary Medication 15 mcg 07/28/24 09:00 Arformoterol INHALATION 08/27/24 08:59 BID [facility] Non-Formulary Medication 175 mcg 07/28/24 09:00 Revefenacin [Yupelri] INHALATION 08/27/24 08:59 DAILY [facility] Ondansetron HCl 4 mg 07/27/24 14:41 Ondansetron Inj 4 Mg/2 Ml Vial IV PUSH Q4H PRN Nausea Pantoprazole Sodium 40 mg 07/28/24 09:00 Pantoprazole 40 Mg Tablet PO Q12HR [facility] Roflumilast 500 mcg 07/28/24 21:00 Roflumilast 500 Mcg Tablet PO HS [facility] Vancomycin HCl 1 each 07/27/24 16:02 Vancomycin For Acute Kidney Injury IVPB PRN PRN Vancomycin Protocol Radiology Results: ITS Impressions Chest X-Ray 07/27/24 15:37 Impression: 1: Multifocal left-sided consolidation, consistent with pneumonia. Labs Labs: Laboratory Results - last 24 hr 07/27/24 07/27/24 07/27/24 12:52 16:53 17:56 WBC 1.0 L* RBC 2.11 L Hgb 6.0 L* Hct 19.0 L* MCV 90.0 MCH 28.4 MCHC 31.6 L RDW 15.9 H Plt Count 18 L* MPV TNP Immature Gran % (Auto) Not Reportable Neut % (Auto) Not Reportable Lymph % (Auto) Not Reportable Swisher % (Auto) Not Reportable Eos % (Auto) Not Reportable Baso % (Auto) Not Reportable Lymph # (Auto) Not Reportable Swisher # (Auto) Not Reportable Eos # (Auto) Not Reportable Baso # (Auto) Not Reportable Abs Immat Gran (auto) Not Reportable Absolute Neuts (auto) Not Reportable Absolute Nucleated RBC Not Reportable Total Counted 100 Neutrophils % (Manual) 42 L Band Neutrophils % 22 H Lymphocytes % (Manual) 4.0 L Monocytes % (Manual) 32 H Nucleated RBC % Not Reportable Abs Neuts (Manual) 0.64 L Abs Lymphs (Manual) 0.04 L Abs Monocytes (Manual) 0.32 Smudge Cells Dohle Bodies Present Platelet Estimate Decreased % Immature Plt Fraction 4.0 Hypochromasia Poikilocytosis 1+ Anisocytosis 1+ Ovalocytes 1+ Christopher Cells Schistocytes None seen PT 16.7 H INR 1.3 APTT 36.7 Sodium 139 Potassium 4.0 Chloride 108 H Carbon Dioxide 17 L Anion Gap 14 H BUN 41 H D Creatinine 2.70 H Estim Creat Clear Calc 22 Estimated GFR 28 L Glucose 120 H Lactic Acid 1.1 Calcium 8.6 Total Bilirubin 3.0 H AST 13 L ALT 15 Alkaline Phosphatase 91 Total Protein 7.0 Albumin 3.2 L Procalcitonin 20.2 Nasal MRSA (PCR) Not detected Influenza A (RT-PCR) Negative Influenza B (RT-PCR) Negative RSV (RT-PCR) Negative SARS-CoV-2 RNA (RT-PCR) Negative Blood Type A Positive Antibody Screen Negative Crossmatch See Detail 07/27/24 07/28/24 23:34 05:02 WBC 1.3 L* 1.6 L* RBC 2.45 L 2.51 L Hgb 7.1 L 7.3 L Hct 21.9 L 22.5 L MCV 89.4 89.6 MCH 29.0 29.1 MCHC 32.4 32.4 RDW 14.6 H 14.9 H Plt Count 50 L D 45 L MPV 9.7 9.7 Immature Gran % (Auto) Not Reportable Not Reportable Neut % (Auto) Not Reportable Not Reportable Lymph % (Auto) Not Reportable Not Reportable Swisher % (Auto) Not Reportable Not Reportable Eos % (Auto) Not Reportable Not Reportable Baso % (Auto) Not Reportable Not Reportable Lymph # (Auto) Not Reportable Not Reportable Swisher # (Auto) Not Reportable Not Reportable Eos # (Auto) Not Reportable Not Reportable Baso # (Auto) Not Reportable Not Reportable Abs Immat Gran (auto) Not Reportable Not Reportable Absolute Neuts (auto) Not Reportable Not Reportable Absolute Nucleated RBC Not Reportable Not Reportable Total Counted 25 25 Neutrophils % (Manual) 44 L 72 Band Neutrophils % 16 H 8 H Lymphocytes % (Manual) 8.0 L 16.0 L Monocytes % (Manual) 32 H 4 Nucleated RBC % Not Reportable Not Reportable Abs Neuts (Manual) 0.78 L 1.28 L Abs Lymphs (Manual) 0.10 L 0.25 L Abs Monocytes (Manual) 0.41 0.06 L Smudge Cells Present Dohle Bodies Present Platelet Estimate Decreased Decreased % Immature Plt Fraction 1.1 1.5 Hypochromasia 1+ Poikilocytosis 1+ 1+ Anisocytosis 1+ 1+ Ovalocytes 1+ 1+ Christopher Cells 1+ Schistocytes None seen None seen PT INR APTT Sodium 140 Potassium 3.6 Chloride 112 H Carbon Dioxide 14 L Anion Gap 14 H BUN 44 H Creatinine 2.62 H Estim Creat Clear Calc 22 Estimated GFR 29 L Glucose 80 Lactic Acid Calcium 8.3 L Total Bilirubin AST ALT Alkaline Phosphatase Total Protein Albumin Procalcitonin Nasal MRSA (PCR) Influenza A (RT-PCR) Influenza B (RT-PCR) RSV (RT-PCR) SARS-CoV-2 RNA (RT-PCR) Blood Type Antibody Screen Crossmatch
[2024-07-28 09:49] LABS: Immature Reticulocyte Fraction 22.5 % (3.0-15.9); Reticulocyte Hemoglobin Conten 34.6 pg (28.2-36.6); Reticulocyte Percent 0.44 % (0.7-4.3); Reticulocytes Absolute 0.01 10^6/uL (0.02-0.10)
[2024-07-28] MEDS: LORATADINE 10 MG TABLET PO (09:57)
[2024-07-28] MEDS: PANTOPRAZOLE 40 MG TABLET PO ×2 (09:57→20:48)
[2024-07-28] MEDS: CYANOCOBALAMIN 1,000 MCG TABLET 1000 MCG PO (09:57)
[2024-07-28] MEDS: FERROUS SULFATE 325 MG TABLET DR 650 MG BY MOUTH (09:57)
[2024-07-28] MEDS: FOLIC ACID 1 MG TABLET PO (09:57)
[2024-07-28] MEDS: MONTELUKAST SODIUM 10 MG TABLET PO (09:57)
[2024-07-28] MEDS: ASPIRIN 81 MG CHEWABLE TABLET PO (09:57)
[2024-07-28] MEDS: allopurinoL 300 MG TABLET PO (09:58)
[2024-07-28] MEDS: SODIUM CHLORIDE 0.9% IV 1,000 ML 150 ML IV CONT ×2 (09:58→17:04)
[2024-07-28] MEDS: guaiFENesin 12 HR 600 MG TABCR PO ×2 (09:58→20:48)
[2024-07-28] MEDS: ASCORBIC ACID 500 MG TABLET PO (09:58)
[2024-07-28 10:42] LABS: Iron 39 ug/dL (49-181)
[2024-07-28 10:52] LABS: Percent Iron Saturation 23 % (20-50)
[2024-07-28] MEDS: AZITHROMYCIN 500 MG/NS 250 ML 500 MG/250 ML BAG 250 MG IVPB (18:15)
[2024-07-28] MEDS: DOXAZOSIN MESYLATE 4 MG TABLET 8 MG PO (20:48)
[2024-07-28] MEDS: ROFLUMILAST 500 MCG TABLET PO (20:48)
[2024-07-28 21:28] LABS: Vancomycin Trough 8.5 ug/mL (10.0-20.0)
[2024-07-28] MEDS: VANCOMYCIN 1,250 MG/NS 250 ML 1,250 MG/250 ML BAG 166.67 MG IVPB (22:50)
[2024-07-29] VITALS (14 sets, daily range): BP systolic 118–140; BP diastolic 56–79; PULSE 100–120; RESP 16–22; TEMP 36–37.2; O2SAT 95–99
[2024-07-29] MEDS: IPRATROPIUM 0.5 MG/ALBUTEROL SULFATE 2.5 MG AMPUL.NEB 3 ML INHALATION ×2 (02:25→09:02)
[2024-07-29] MEDS: SODIUM CHLORIDE 0.9% IV 1,000 ML 150 ML IV CONT (04:00)
[2024-07-29] MEDS: CENTRAL LINE FLUSH 10 ML IV PUSH ×2 (06:16→12:05)
[2024-07-29] MEDS: CEFEPIME 1 GM/NS 50 ML 1 GM/50 ML BAG IVPB ×2 (06:17→16:56)
[2024-07-29 06:51] LABS: Estimated CRCL calculation 23 ml/min; Estimated Glomerular Filt Rate 31
[2024-07-29 07:34] LABS: Haptoglobin 292 mg/dL (43-212)
[2024-07-29] MEDS: CYANOCOBALAMIN 1,000 MCG TABLET 1000 MCG PO (08:14)
[2024-07-29] MEDS: MONTELUKAST SODIUM 10 MG TABLET PO (08:14)
[2024-07-29] MEDS: FERROUS SULFATE 325 MG TABLET DR 650 MG BY MOUTH (08:14)
[2024-07-29] MEDS: guaiFENesin 12 HR 600 MG TABCR PO ×2 (08:14→20:23)
[2024-07-29] MEDS: PANTOPRAZOLE 40 MG TABLET PO ×2 (08:15→20:23)
[2024-07-29] MEDS: ASCORBIC ACID 500 MG TABLET PO (08:15)
[2024-07-29] MEDS: FOLIC ACID 1 MG TABLET PO (08:15)
[2024-07-29] MEDS: ASPIRIN 81 MG CHEWABLE TABLET PO (08:15)
[2024-07-29] MEDS: allopurinoL 300 MG TABLET PO (08:15)
[2024-07-29] MEDS: LORATADINE 10 MG TABLET PO (08:15)
[2024-07-29] MEDS: BUDESONIDE RESPULE NEB 0.5 MG/2 ML AMP 0.25 MG INHALATION ×2 (09:01→20:45)
--- NOTE | 2024-07-29 09:11 | P.PNIM_ITS ---
Progress Note: A&P Assessment and Plan (1) Sepsis: Qualifiers: Sepsis acute organ dysfunction status: without acute organ dysfunction Sepsis type: sepsis due to unspecified organism Qualified Code(s): A41.9 - S epsis, unspecified organism Code(s): A41.9 - Sepsis, unspecified organism Status: Acute (2) HTN (hypertension): Qualifiers: Hypertension type: unspecified Qualified Code(s): I10 - Essential (primary) hypertension Code(s): I10 - Essential (primary) hypertension Status: Chronic (3) Small cell lung cancer: Onset Date: 02/2024 Qualifiers: Laterality: right Lung location: unspecified part of lung Qualified Code(s): C34.91 - Malignant neoplasm of unspecified part of right bronchus or lung Code(s): C34.90 - Malignant neoplasm of unspecified part of unspecified bronchus or lung Status: Chronic (4) Pancytopenia due to antineoplastic chemotherapy: Code(s): D61.810 - Antineoplastic chemotherapy induced pancytopenia; T45.1X5A - Adverse effect of antineoplastic and immunosuppressive drugs, initial encounter Status: Acute Plan (1) Sepsis: Qualifiers: Sepsis acute organ dysfunction status: without acute organ dysfunction Sepsis type: sepsis due to unspecified organism Qualified Code(s): A41.9 - Sepsis, unspecified organism Code(s): A41.9 - Sepsis, unspecified organism Status: Acute Assessment and Plan: - meets SIRS criteria: HR, RR. WBC 1.0. No current hypoxia or hypotension. - lactic acid and procalcitonin ordered - 30 mL/kg = 2.5L, start with 2L bolus and assess toleration. - suspected source: Pneumonia - started on cefepime, azithromycin, vancomycin - blood cultures drawn on 07/27, follow - monitor hemodynamic stability Blood pressure still soft Started normal saline IV 150 mL/hour on July 28 Blood pressure became stable, decreased to normal saline 100 mL/hour on Jul 29 (2) Pneumonia: Qualifiers: Laterality: bilateral Lung location: unspecified part of lung Pneumonia type: due to unspecified organism Qualified Code(s): J18.9 - Pneumonia, unspecified organism Code(s): J18.9 - Pneumonia, unspecified organism Status: Acute Assessment and Plan: CXR: Multifocal left-sided consolidation, consistent with pneumonia. - risk factors and complicating factors: pancytopenia, lung cancer - started on HAP tx: Vancomycin, cefepime, azithromycin - MRSA PCR, viral PCR, and sputum culture ordered - baseline O2 requirement: 3L NC - supportive care Pancytopenia WBC 1.0, HGB 6.0, platelet count 18 Possible due to chemo and radiation therapy - oncology consulted, awaiting formal recs - transfuse 2 units of PRBC and 2 units of plateles - trend Follow stool guaiac, ferritin 16,800 , haptoglobin 292 reticulocyte 2.5% Small cell lung cancer: Onset Date: 02/2024 Qualifiers: Laterality: right Lung location: unspecified part of lung Qualified Code(s): C34.91 - Malignant neoplasm of unspecified part of right bronchus or lung Code(s): C34.90 - Malignant neoplasm of unspecified part of unspecified bronchus or lung Status: Chronic Assessment and Plan: Hx of lung cancer, has underwent chemo and radiation. Last chemotherapy was on 06/18/24 and last radiation treatment on 05/04/24. - oncology consulted, awaiting formal recs PRISCILLA on CKD creatinine 2.7 and GFR 28, previously 1.6 and GFR 52 on 07/16/2024 Likely resulting from sepsis Received IV fluids: 2L bolus - monitor I&Os Renal function is improving Continue normal saline IV by 100 mL/hour HTN (hypertension): Qualifiers: Hypertension type: unspecified Qualified Code(s): I10 - Essential (primary) hypertension Code(s): I10 - Essential (primary) hypertension Status: Chronic Assessent and Plan: Stable now Continue metoprolol p.o. (7) Obstructive sleep apnea: Code(s): G47.33 - Obstructive sleep apnea (adult) (pediatric) Status: Acute Assessment and Plan: - does not use CPAP Plan Diet: Heart healthy GI Prophylaxis: Not currently indicated DVT Prophylaxis: SCDs Lines: peripheral Code Status: DNR Subjective Date/time seen: 07/29/24 09:11 Interval history: Patient is afebrile overnight, still has tachycardia, tachypnea, on 3 L oxygen, white blood cell normal now. Patient still has cough, shortness breast is improving Exam Narrative: GENERAL: Pleasant, in no acute distress. Well-nourished. - EYES: EOMI. Anicteric. - HENT: Moist mucous membranes. - LUNGS: Coarse breath sound bilaterall y, no wheezing, rhonchi, or rales. - CARDIOVASCULAR: Regular rate and rhyth m. No murmur. No JVD. - ABDOMEN: Soft, non-tender and non-dist ended. No palpable masses. - EXTREMITIES: No edema. Peripheral puls es 2+. Non-tender. - NEUROLOGIC: No focal neurological defi cits. CN II-XII grossly intact. - PSYCHIATRIC: Awake, Alert and oriented x 3. Appropriate mood and affect. - SKIN: No rashes or lesions. Warm. - LYMPH: No cervical lymphadenopathy. Objective Data Vital Signs Vital Signs: Vital Signs - 24 hr 07/28/24 14:00 07/28/24 14:15 07/28/24 14:15 Temperature 99.1 F Pulse Rate 100 111 H Respiratory Rate 20 24 H Blood Pressure 100/60 Pulse Oximetry 97 96 Oxygen Delivery Nasal Cannula Oxygen Flow Rate 3 Fraction of Inspired Oxygen 32 07/28/24 14:27 07/28/24 16:00 07/28/24 20:00 Temperature 99.2 F 98.6 F Pulse Rate 114 H 101 H 118 H Respiratory Rate 24 H 20 18 Blood Pressure 110/60 129/75 Pulse Oximetry 97 97 Oxygen Delivery Oxygen Flow Rate Fraction of Inspired Oxygen 07/28/24 20:00 07/28/24 21:06 07/28/24 21:11 Temperature Pulse Rate 124 H 124 H Respiratory Rate 22 H Blood Pressure Pulse Oximetry 96 96 Oxygen Delivery Nasal Cannula Nasal Cannula Oxygen Flow Rate 3 3 Fraction of Inspired Oxygen 32 07/28/24 21:27 07/28/24 23:59 07/29/24 02:25 Temperature 99.3 F Pulse Rate 119 H 123 H 120 H Respiratory Rate 22 H 18 22 H Blood Pressure 125/61 Pulse Oximetry 95 Oxygen Delivery Oxygen Flow Rate Fraction of Inspired Oxygen 07/29/24 02:34 07/29/24 04:00 07/29/24 09:03 Temperature 98.3 F Pulse Rate 118 H 119 H 110 H Respiratory Rate 22 H 16 22 H Blood Pressure 118/56 L Pulse Oximetry 95 Oxygen Delivery Oxygen Flow Rate Fraction of Inspired Oxygen Intake/Output Intake/Output: Intake & Output 07/26/24 07/27/24 07/28/24 07/29/24 23:59 23:59 23:59 23:59 Intake Total 3532 3180 300 Output Total 1900 1100 Balance 3532 1280 -800 Meds/Results Medications: Active Medications Generic Name Dose Route Start Last Admin Trade Name Freq PRN Reason Stop Dose Admin Acetaminophen 650 mg 07/27/24 14:41 07/27/24 23:55 Acetaminophen 325 Mg Tablet PO 650 mg Q4H PRN Administration Mild Pain (1-3) or Fever Hydrocodone Bitart/Acetaminophen 1 tab 07/27/24 14:41 Hydrocodone/Acetaminophen (*Crx) 5-325 Mg Tablet PO Q4H PRN Pain Rated 4-6 Albuterol 1 - 2 puff 07/27/24 23:05 Albuterol Sulfate (*Sp) Aerosol 1 Puff INHALATION Q4-6H PRN sob/wheezing Albuterol/Ipratropium 3 ml 07/27/24 20:00 07/29/24 09:02 Ipratropium 0.5 Mg/Albuterol Sulfate 2.5 Mg Ampul.Neb 3 Ml INHALATION 3 ml Q6HRT [facility] [place] Administration Allopurinol 300 mg 07/28/24 09:00 07/29/24 08:15 Allopurinol 300 Mg Tablet PO 300 mg DAILY [facility] Administration Ascorbic Acid 500 mg 07/28/24 09:00 07/29/24 08:15 Ascorbic Acid 500 Mg Tablet PO 500 mg QAM [facility] [place] Administration Aspirin 81 mg 07/28/24 09:00 07/29/24 08:15 Aspirin 81 Mg Chewable Tablet PO 81 mg DAILY [facility] [place] Administration Baclofen 10 mg 07/27/24 23:01 Baclofen 10 Mg Tablet PO TID PRN Hiccups Benzonatate 100 mg 07/27/24 16:31 Benzonatate 100 Mg Capsule PO TID PRN Cough Budesonide 0.25 mg 07/28/24 08:00 07/29/24 09:01 Budesonide Respule Neb 0.5 Mg/2 Ml Amp INHALATION 0.25 mg Q12HRT [facility] [place] Administration Cyanocobalamin 1,000 mcg 07/28/24 09:00 07/29/24 08:14 Cyanocobalamin 1,000 Mcg Tablet PO 1,000 mcg QAM [facility] [place] Administration Doxazosin Mesylate 8 mg 07/28/24 21:00 07/28/24 20:48 Doxazosin Mesylate 4 Mg Tablet PO 8 mg HS [facility] [place] Administration Ergocalciferol 50,000 units 08/02/24 09:00 Ergocalciferol 50,000 Units Capsule PO WEEKLY [facility] Ferrous Sulfate 650 mg 07/28/24 09:00 07/29/24 08:14 Ferrous Sulfate [address] BY MOUTH 650 mg DAILY [facility] Administration Fluticasone Propionate 1 spray 07/27/24 23:01 Fluticasone Propionate 0.05% Na Spr 16 Gm Btl (*Bkc) NASAL DAILY PRN Congestion Folic Acid 1 mg 07/28/24 09:00 07/29/24 08:15 Folic Acid 1 Mg Tablet PO 1 mg QAM [facility] Administration Guaifenesin 600 mg 07/27/24 21:00 07/29/24 08:14 Guaifenesin 12 Hr 600 Mg Tabcr PO 600 mg Q12HR [facility] Administration Heparin Sodium (Beef Lung) 50 units 07/29/24 09:00 07/29/24 08:13 Heparin Flush 50 Units/5 Ml Syringe IV PUSH Not Given QAM [facility] Heparin Sodium (Beef Lung) 50 units 07/28/24 10:11 Heparin Flush 50 Units/5 Ml Syringe IV PUSH PRN PRN after intermittent infusion Heparin Sodium (Beef Lung) 50 units 07/28/24 10:11 Heparin Flush 50 Units/5 Ml Syringe IV PUSH PRN PRN after blood draws Heparin Sodium (Porcine) 500 units 07/28/24 10:11 Heparin Sodium Lock Flush 500 Units/5 Ml Syringe IV PUSH PRN PRN see comments below Cefepime HCl 1 gm in 50 mls @ 100 mls/hr 07/27/24 18:00 07/29/24 06:17 Maxipime 1 Gm/Ns 50 Ml IVPB 100 mls/hr Q12H [facility] Administration Azithromycin 500 mg in 250 mls @ 250 mls/hr 07/28/24 19:00 07/28/24 19:10 Zithromax IVPB Infused Q24H [facility] Infusion Sodium Chloride 1,000 mls @ 150 mls/hr 07/28/24 09:20 07/29/24 04:00 Normal Saline Iv IV CONT 150 mls/hr .Q6H40M [facility] Administration Loratadine 10 mg 07/28/24 09:00 07/29/24 08:15 Loratadine 10 Mg Tablet PO 10 mg QAM [facility] Administration Methocarbamol 500 mg 07/27/24 23:01 Methocarbamol 500 Mg Tablet PO PRN PRN back spasms Miscellaneous Information 0 each 07/27/24 00:01 Revefenacin Nonform Can Pt Bring From Home? XX 08/26/24 00:00 CLARIFY [facility] Miscellaneous Information 0 each 07/28/24 00:01 Budesonide 0.25mg Nonform Can Pt Bring From Home? XX 08/27/24 00:00 CLARIFY [facility] Montelukast Sodium 10 mg 07/27/24 09:00 07/29/24 08:14 Montelukast Sodium 10 Mg Tablet PO 10 mg DAILY [facility] Administration Non-Formulary Medication 15 mcg 07/28/24 09:00 Arformoterol INHALATION 08/27/24 08:59 BID [facility] Non-Formulary Medication 175 mcg 07/28/24 09:00 Revefenacin [Yupelri] INHALATION 08/27/24 08:59 DAILY [facility] Ondansetron HCl 4 mg 07/27/24 14:41 Ondansetron Inj 4 Mg/2 Ml Vial IV PUSH Q4H PRN Nausea Pantoprazole Sodium 40 mg 07/28/24 09:00 07/29/24 08:15 Pantoprazole 40 Mg Tablet PO 40 mg Q12HR [facility] Administration Roflumilast 500 mcg 07/28/24 21:00 07/28/24 20:48 Roflumilast 500 Mcg Tablet PO 500 mcg HS [facility] Administration Sodium Chloride 10 ml 07/28/24 14:00 07/29/24 06:16 Central Line Flush IV PUSH 10 ml Q8HR [facility] Administration Vancomycin HCl 1 each 07/27/24 16:02 Vancomycin For Acute Kidney Injury IVPB PRN PRN Vancomycin Protocol Radiology Results: ITS Impressions Chest X-Ray 07/27/24 15:37 Impression: 1: Multifocal left-sided consolidation, consistent with pneumonia. Labs Labs: Laboratory Results - last 24 hr 07/28/24 07/28/24 07/28/24 04:55 10:04 20:55 Absolute Retic 0.01 L Percent Retic 0.44 L Immature Retic Fraction 22.5 H Retic Hgb Content 34.6 Haptoglobin 292 H Creatinine Estim Creat Clear Calc Estimated GFR Iron 39 L TIBC 167 L % Saturation 23 Ferritin 1680.00 H Vancomycin Trough 8.5 L 07/29/24 06:30 Absolute Retic Percent Retic Immature Retic Fraction Retic Hgb Content Haptoglobin Creatinine 2.51 H Estim Creat Clear Calc 23 Estimated GFR 31 L Iron TIBC % Saturation Ferritin Vancomycin Trough
--- NOTE | 2024-07-29 09:21 | ECG_ITS ---
Test Date: 2024-07-29 10:20:13 Measurements Intervals [place] Rate: 105 P: 56 [place]: 145 QRS: 33 QRSD: 97 T: 56 QT: 331 QTc: 438 Interpretive Statements SINUS TACHYCARDIA WITH OCCASIONAL VENTRICULAR PREMATURE COMPLEXES BORDERLINE ECG Compared to ECG 04/15/2024 18:01:40 HEART RATE HAS DECREASED Electronically Signed On 07-29-2024 15:37:20 STONER OUT by Cliff Courtney D.O.
[2024-07-29] MEDS: METOPROLOL TARTRATE 25 MG TABLET PO ×2 (09:36→20:23)
[2024-07-29 09:50] LABS: Hematocrit 21.9 % (42.0-52.0); Hemoglobin 7.1 g/dL (14.0-18.0); Immature Platelet Fraction Pct 2.5 % (0.9-11.2); Mean Corpuscular HGB Conc 32.4 g/dl (32-36); Mean Corpuscular Hemoglobin 29.6 pg (26-34); Mean Corpuscular Volume 91.3 fl (80-100); Mean Platelet Volume 11.9 fl (7.4-10.4); Platelet Count Result 41 k/mm3 (150-375); Red Cell Distribution Width 15.6 % (11.5-14.5); White Blood Count 4.6 K/mm3 (4.5-10.0)
[2024-07-29 10:00] LABS: Anion Gap 13 mmol/L (4-12); Blood Urea Nitrogen 44 mg/dL (9-20); Calcium 8.3 mg/dL (8.4-10.2); Carbon Dioxide 13 mmol/L (22-30); Chloride 115 mmol/L (98-107); Estimated CRCL calculation 24 ml/min; Estimated Glomerular Filt Rate 31; Glucose 93 mg/dL (65-110); Potassium 3.1 mmol/L (3.4-5.0); Sodium 141 mmol/L (137-145)
[2024-07-29 10:27] LABS: Anisocytosis 1+; Platelet Estimate Decreased (Adequate)
[2024-07-29 10:28] LABS: Band Neutrophils Percent 16 % (0-6); Large Platelets Present; Lymphocytes Absolute Manual 0.27 K/mm3 (1.1-4.5); Lymphocytes Percent Manual 6 % (18-44); Monocytes Absolute Manual 0.78 K/mm3 (0.1-0.90); Monocytes Percent Manual 17 % (3-9); Neutrophils Absolute Manual 3.54 K/mm3 (1.3-6.7); Neutrophils Percent Manual 61 % (46-73); Total Cells Counted 100; Toxic Granulation Present
[2024-07-29 10:29] LABS: Crenated RBC 2+; Schistocytes None Seen
--- NOTE | 2024-07-29 12:02 | PHAR ---
Pharmacy verified home meds: * Use from home * Arformoterol 15 mcg/2 mL solution for nebulization - nebulize 15 mcg (2 mL) twice daily * Use from home * Revefenacin [Yupelri] 175 mcg/3 mL solution for nebulization - nebulize 175 mcg (3 mL) once daily
[2024-07-29] MEDS: SODIUM CHLORIDE 0.9% IV 1,000 ML 100 ML IV CONT ×2 (12:05→23:14)
--- NOTE | 2024-07-29 13:15 | PC.NURSE ---
Patient's home budesonide placed in [facility] refrigerator in respiratory medication box. Patient's home Yupeltri placed in patient middle closet in room 329. Patient made aware of where home medications are.
--- NOTE | 2024-07-29 16:19 | PCRCNOTE ---
Window of time for administration has passed. See next scheduled administration.
[2024-07-29] MEDS: AZITHROMYCIN 500 MG/NS 250 ML 500 MG/250 ML BAG 250 MG IVPB (17:45)
[2024-07-29] MEDS: ROFLUMILAST 500 MCG TABLET PO (20:22)
[2024-07-29] MEDS: DOXAZOSIN MESYLATE 4 MG TABLET 8 MG PO (20:23)
[2024-07-29] MEDS: ARFORMOTEROL 15 MCG/2 ML 15 EACH INHALATION (20:45)
[2024-07-29 21:07] LABS: Vancomycin Trough 14.3 ug/mL (10.0-20.0)
[2024-07-29] MEDS: VANCOMYCIN 1,250 MG/NS 250 ML 1,250 MG/250 ML BAG 166.67 MG IVPB (23:07)
[2024-07-30] VITALS (11 sets, daily range): BP systolic 136–149; BP diastolic 67–88; PULSE 91–120; RESP 18–20; TEMP 36.4–37.3; O2SAT 92–98; BMI 28.0
[2024-07-30] MEDS: CEFEPIME 1 GM/NS 50 ML 1 GM/50 ML BAG IVPB ×2 (06:11→17:26)
[2024-07-30 06:23] LABS: Hematocrit 22.1 % (42.0-52.0); Hemoglobin 7.2 g/dL (14.0-18.0); Immature Platelet Fraction Pct 2.7 % (0.9-11.2); Mean Corpuscular HGB Conc 32.6 g/dl (32-36); Mean Corpuscular Hemoglobin 29.8 pg (26-34); Mean Corpuscular Volume 91.3 fl (80-100); Mean Platelet Volume 11.2 fl (7.4-10.4); Platelet Count Result 38 k/mm3 (150-375); Red Blood Count 2.42 M/mm3 (4.6-6.20); Red Cell Distribution Width 15.9 % (11.5-14.5)
[2024-07-30 06:31] LABS: Anion Gap 12 mmol/L (4-12); Blood Urea Nitrogen 44 mg/dL (9-20); Calcium 8.5 mg/dL (8.4-10.2); Carbon Dioxide 13 mmol/L (22-30); Chloride 116 mmol/L (98-107); Estimated CRCL calculation 23 ml/min; Estimated Glomerular Filt Rate 31; Glucose 78 mg/dL (65-110); Sodium 141 mmol/L (137-145)
[2024-07-30 07:06] LABS: Anisocytosis 1+; Platelet Estimate Decreased (Adequate)
[2024-07-30 07:07] LABS: Burr Cells 1+; Ovalocytes 1+; Schistocytes None Seen
[2024-07-30] MEDS: ASPIRIN 81 MG CHEWABLE TABLET PO (08:38)
[2024-07-30] MEDS: FOLIC ACID 1 MG TABLET PO (08:38)
[2024-07-30] MEDS: guaiFENesin 12 HR 600 MG TABCR PO ×2 (08:39→21:18)
[2024-07-30] MEDS: MONTELUKAST SODIUM 10 MG TABLET PO (08:39)
[2024-07-30] MEDS: METOPROLOL TARTRATE 25 MG TABLET PO ×2 (08:39→21:19)
[2024-07-30] MEDS: allopurinoL 300 MG TABLET PO (08:40)
[2024-07-30] MEDS: CYANOCOBALAMIN 1,000 MCG TABLET 1000 MCG PO (08:40)
[2024-07-30] MEDS: PANTOPRAZOLE 40 MG TABLET PO ×2 (08:40→21:19)
[2024-07-30] MEDS: FERROUS SULFATE 325 MG TABLET DR 650 MG BY MOUTH (08:43)
[2024-07-30] MEDS: ASCORBIC ACID 500 MG TABLET PO (08:43)
--- NOTE | 2024-07-30 09:32 | P.PNIM_ITS ---
Progress Note: A&P Assessment and Plan (1) Sepsis: Qualifiers: Sepsis acute organ dysfunction status: without acute organ dysfunction Sepsis type: sepsis due to unspecified organism Qualified Code(s): A41.9 - S epsis, unspecified organism Code(s): A41.9 - Sepsis, unspecified organism Status: Acute (2) HTN (hypertension): Qualifiers: Hypertension type: unspecified Qualified Code(s): I10 - Essential (primary) hypertension Code(s): I10 - Essential (primary) hypertension Status: Chronic (3) Small cell lung cancer: Onset Date: 02/2024 Qualifiers: Laterality: right Lung location: unspecified part of lung Qualified Code(s): C34.91 - Malignant neoplasm of unspecified part of right bronchus or lung Code(s): C34.90 - Malignant neoplasm of unspecified part of unspecified bronchus or lung Status: Chronic (4) Pancytopenia due to antineoplastic chemotherapy: Code(s): D61.810 - Antineoplastic chemotherapy induced pancytopenia; T45.1X5A - Adverse effect of antineoplastic and immunosuppressive drugs, initial encounter Status: Acute Plan (1) Sepsis: Qualifiers: Sepsis acute organ dysfunction status: without acute organ dysfunction Sepsis type: sepsis due to unspecified organism Qualified Code(s): A41.9 - Sepsis, unspecified organism Code(s): A41.9 - Sepsis, unspecified organism Status: Acute Assessment and Plan: - meets SIRS criteria: HR, RR. WBC 1.0. No current hypoxia or hypotension. - lactic acid and procalcitonin ordered - 30 mL/kg = 2.5L, start with 2L bolus and assess toleration. - suspected source: Pneumonia - started on cefepime, azithromycin, vancomycin - blood cultures drawn on 07/27, follow - monitor hemodynamic stability Blood pressure still soft Started normal saline IV 150 mL/hour on July 28 Blood pressure became stable, decreased to normal saline 100 mL/hour on Jul 29 BP stable dc NS 07/30 Pneumonia: Qualifiers: Laterality: bilateral Lung location: unspecified part of lung Pneumonia type: due to unspecified organism Qualified Code(s): J18.9 - Pneumonia, unspecified organism Code(s): J18.9 - Pneumonia, unspecified organism Status: Acute Assessment and Plan: CXR: Multifocal left-sided consolidation, consistent with pneumonia. Patient is immunocompromised, pancytopenia due to chemo, lung cancer Patient is on Vancomycin, cefepime, azithromycin - MRSA PCR, viral PCR, sputum culture is positive for of Pseudomonas ct chest 07/29 : Emphysema with extensive new consolidation the bilateral upper lobes consistent with pneumonia. Chronic resp failure baseline O2 requirement: 3L NC Monitor pulse ox Continue O2 therapy Pancytopenia WBC 1.0, HGB 6.0, platelet count 18 Possible due to chemo and radiation therapy transfuse 2 units of PRBC and 2 units of [place] Follow stool guaiac, ferritin 16,800 , haptoglobin 292 reticulocyte 2.5% oncology consulted, awaiting formal recs Small cell lung cancer: Onset Date: 02/2024 Qualifiers: Laterality: right Lung location: unspecified part of lung Qualified Code(s): C34.91 - Malignant neoplasm of unspecified part of right bronchus or lung Code(s): C34.90 - Malignant neoplasm of unspecified part of unspecified bronchus or lung Status: Chronic Assessment and Plan: lung cancer, underwent chemo and radiation. Last chemotherapy was on 06/18/24 and last radiation treatment on 05/04/24. oncology consulted, awaiting formal recs PRISCILLA on CKD creatinine 2.7 and GFR 28, previously 1.6 and GFR 52 on 07/16/2024 Likely resulting from sepsis Received IV fluids: 2L bolus - monitor I&Os Renal function is not improving, Cr stable Received normal saline ct showed: Bilateral nonobstructing nephrolithiasis. Consult manager application for evaluation treatment HTN (hypertension): Qualifiers: Hypertension type: unspecified Qualified Code(s): I10 - Essential (primary) hypertension Code(s): I10 - Essential (primary) hypertension Status: Chronic Assessent and Plan: Stable now Continue metoprolol p.o. (7) Obstructive sleep apnea: Code(s): G47.33 - Obstructive sleep apnea (adult) (pediatric) Status: Acute Assessment and Plan: - does not use CPAP Plan Diet: Heart healthy GI Prophylaxis: Not currently indicated DVT Prophylaxis: SCDs Lines: peripheral Code Status: DNR Subjective Date/time seen: 07/30/24 09:32 Interval history: Patient is afebrile overnight, still has tachycardia, tachypnea, on 3 L oxygen, white blood cell normal now. Patient still has cough, patient feels tired, poor appetite, Exam Narrative: GENERAL: Pleasant, in no acute distress. Well-nourished. - EYES: EOMI. Anicteric. - HENT: Moist mucous membranes. - LUNGS: Coarse breath sound bilaterall y, no wheezing, rhonchi, or rales. - CARDIOVASCULAR: Regular rate and rhyth m. No murmur. No JVD. - ABDOMEN: Soft, non-tender and non-dist ended. No palpable masses. - EXTREMITIES: No edema. Peripheral puls es 2+. Non-tender. - NEUROLOGIC: No focal neurological defi cits. CN II-XII grossly intact. - PSYCHIATRIC: Awake, Alert and oriented x 3. Appropriate mood and affect. - SKIN: No rashes or lesions. Warm. - LYMPH: No cervical lymphadenopathy. Objective Data Vital Signs Vital Signs: Vital Signs - 24 hr 07/29/24 09:36 07/29/24 10:33 07/29/24 15:34 Temperature 98.9 F 98.9 F Pulse Rate 112 H 107 H 102 H Respiratory Rate 16 16 Blood Pressure 130/69 140/78 Pulse Oximetry 99 96 Oxygen Delivery Oxygen Flow Rate 07/29/24 20:00 07/29/24 20:23 07/29/24 20:45 Temperature Pulse Rate 100 Respiratory Rate Blood Pressure Pulse Oximetry 97 95 Oxygen Delivery Nasal Cannula Nasal Cannula Oxygen Flow Rate 3 3 07/29/24 20:45 07/29/24 20:55 07/29/24 21:55 Temperature 96.8 F L Pulse Rate 108 H 112 H 108 H Respiratory Rate 20 20 20 Blood Pressure 135/79 Pulse Oximetry 97 Oxygen Delivery Oxygen Flow Rate 07/30/24 06:00 07/30/24 09:27 07/30/24 09:27 Temperature 97.8 F Pulse Rate 109 H 115 H 114 H Respiratory Rate 20 20 20 Blood Pressure 139/88 Pulse Oximetry 98 93 Oxygen Delivery Nasal Cannula Oxygen Flow Rate 3 Intake/Output Intake/Output: Intake & Output 07/27/24 07/28/24 07/29/24 07/30/24 23:59 23:59 23:59 23:59 Intake Total 3532 3180 3550.0 870 Output Total 1900 1945 1175 Balance 3532 1280 1605.0 -305 Meds/Results Medications: Active Medications Generic Name Dose Route Start Last Admin Trade Name Freq PRN Reason Stop Dose Admin Acetaminophen 650 mg 02/14/25 14:41 07/27/24 23:55 Acetaminophen 325 Mg Tablet PO 650 mg Q4H PRN Administration Mild Pain (1-3) or Fever Hydrocodone Bitart/Acetaminophen 1 tab 07/27/24 14:41 Hydrocodone/Acetaminophen (*Crx) 5-325 Mg Tablet PO Q4H PRN Pain Rated 4-6 Albuterol 1 - 2 puff 07/27/24 23:05 Albuterol Sulfate (*Sp) Aerosol 1 Puff INHALATION Q4-6H PRN sob/wheezing Albuterol/Ipratropium 3 ml 07/27/24 20:00 07/30/24 09:25 Ipratropium 0.5 Mg/Albuterol Sulfate 2.5 Mg Ampul.Neb 3 Ml INHALATION Not Given Q6HRT [facility] Allopurinol 300 mg 07/28/24 09:00 07/30/24 08:40 Allopurinol 300 Mg Tablet PO 300 mg DAILY [facility] Administration Ascorbic Acid 500 mg 07/28/24 09:00 07/30/24 08:43 Ascorbic Acid 500 Mg Tablet PO 500 mg QAM [facility] Administration Aspirin 81 mg 07/28/24 09:00 07/30/24 08:38 Aspirin 81 Mg Chewable Tablet PO 81 mg DAILY [facility] Administration Baclofen 10 mg 07/27/24 23:01 Baclofen 10 Mg Tablet PO TID PRN Hiccups Benzonatate 100 mg 07/27/24 16:31 Benzonatate 100 Mg Capsule PO TID PRN Cough Budesonide 0.25 mg 07/28/24 08:00 07/30/24 09:27 Budesonide Respule Neb 0.5 Mg/2 Ml Amp INHALATION 0.25 mg Q12HRT [facility] Administration Cyanocobalamin 1,000 mcg 07/28/24 09:00 07/30/24 08:40 Cyanocobalamin 1,000 Mcg Tablet PO 1,000 mcg QAM [facility] Administration Doxazosin Mesylate 8 mg 07/28/24 21:00 07/29/24 20:23 Doxazosin Mesylate 4 Mg Tablet PO 8 mg HS [facility] Administration Ergocalciferol 50,000 units 08/02/24 09:00 Ergocalciferol 50,000 Units Capsule PO WEEKLY [facility] Ferrous Sulfate 650 mg 07/28/24 09:00 07/30/24 08:43 Ferrous Sulfate [address] BY MOUTH 650 mg DAILY [facility] Administration Fluticasone Propionate 1 spray 07/27/24 23:01 Fluticasone Propionate 0.05% Na Spr 16 Gm Btl (*Bkc) NASAL DAILY PRN Congestion Folic Acid 1 mg 07/28/24 09:00 07/30/24 08:38 Folic Acid 1 Mg Tablet PO 1 mg QAM [facility] Administration Guaifenesin 600 mg 07/27/24 21:00 07/30/24 08:39 Guaifenesin 12 Hr 600 Mg Tabcr PO 600 mg Q12HR [facility] Administration Heparin Sodium (Beef Lung) 50 units 07/29/24 09:00 07/30/24 08:40 Heparin Flush 50 Units/5 Ml Syringe IV PUSH 50 units QAM [facility] Administration Heparin Sodium (Beef Lung) 50 units 07/28/24 10:11 Heparin Flush 50 Units/5 Ml Syringe IV PUSH PRN PRN after intermittent infusion Heparin Sodium (Beef Lung) 50 units 07/28/24 10:11 Heparin Flush 50 Units/5 Ml Syringe IV PUSH PRN PRN after blood draws Heparin Sodium (Porcine) 500 units 07/28/24 10:11 Heparin Sodium Lock Flush 500 Units/5 Ml Syringe IV PUSH PRN PRN see comments below Cefepime HCl 1 gm in 50 mls @ 100 mls/hr 07/27/24 18:00 07/30/24 06:11 Maxipime 1 Gm/Ns 50 Ml IVPB 100 mls/hr Q12H [facility] Administration Azithromycin 500 mg in 250 mls @ 250 mls/hr 07/28/24 19:00 07/29/24 18:45 Zithromax IVPB Infused Q24H [facility] Infusion Sodium Chloride 1,000 mls @ 100 mls/hr 07/28/24 09:20 07/29/24 23:14 Normal Saline Iv IV CONT 100 mls/hr .Q10H [facility] Administration Loratadine 10 mg 07/28/24 09:00 07/29/24 08:15 Loratadine 10 Mg Tablet PO 10 mg QAM [facility] Administration Methocarbamol 500 mg 07/27/24 23:01 Methocarbamol 500 Mg Tablet PO PRN PRN back spasms Metoprolol Tartrate 25 mg 07/29/24 09:25 07/30/24 08:39 Metoprolol Tartrate 25 Mg Tablet PO 25 mg Q12HR [facility] Administration Montelukast Sodium 10 mg 07/27/24 09:00 07/30/24 08:39 Montelukast Sodium 10 Mg Tablet PO 10 mg DAILY [facility] Administration * Home Med * 15 mcg 07/29/24 12:00 07/29/24 21:54 Arformoterol 15 Mcg/ INHALATION 08/28/24 11:59 Not Given 2 Ml Solution For Q12HRT [facility] Nebulization * Home Med * 175 mcg 07/29/24 12:05 07/29/24 21:54 Revefenacin [Yupelri INHALATION 08/28/24 12:04 Not Given ] 175 Mcg/3 Ml DAILYRT [facility] Solution For Nebulization Ondansetron HCl 4 mg 07/27/24 14:41 Ondansetron Inj 4 Mg/2 Ml Vial IV PUSH Q4H PRN Nausea Pantoprazole Sodium 40 mg 07/28/24 09:00 07/30/24 08:40 Pantoprazole 40 Mg Tablet PO 40 mg Q12HR [facility] Administration Roflumilast 500 mcg 07/28/24 21:00 07/29/24 20:22 Roflumilast 500 Mcg Tablet PO 500 mcg HS [facility] Administration Sodium Chloride 10 ml 07/28/24 14:00 07/30/24 06:32 Central Line Flush IV PUSH Not Given Q8HR [facility] Vancomycin HCl 1 each 07/27/24 16:02 Vancomycin For Acute Kidney Injury IVPB PRN PRN Vancomycin Protocol Radiology Results: ITS Impressions Chest X-Ray 07/27/24 15:37 Impression: 1: Multifocal left-sided consolidation, consistent with pneumonia. Chest/Abdomen/Pelvis CT 07/29/24 16:54 IMPRESSION: 1. Emphysema with extensive new consolidation the bilateral upper lobes con sistent with pneumonia. 2. Intra and extra hepatic ductal or ductal dilation and pneumobilia with unchanged. Unchanged biliary stent in expected position. 3. Bilateral nonobstructing nephrolithiasis. 4. Prostatomegaly. Labs Labs: Laboratory Results - last 24 hr 07/29/24 07/29/24 07/30/24 06:30 20:32 06:02 WBC 4.6 8.0 RBC 2.40 L 2.42 L Hgb 7.1 L 7.2 L Hct 21.9 L 22.1 L MCV 91.3 91.3 MCH 29.6 29.8 MCHC 32.4 32.6 RDW 15.6 H 15.9 H Plt Count 41 L 38 L MPV 11.9 H 11.2 H Immature Gran % (Auto) Not Reportable Not Reportable Neut % (Auto) Not Reportable Not Reportable Lymph % (Auto) Not Reportable Not Reportable [place] % (Auto) Not Reportable Not Reportable Eos % (Auto) Not Reportable Not Reportable Baso % (Auto) Not Reportable Not Reportable Lymph # (Auto) Not Reportable Not Reportable [place] # (Auto) Not Reportable Not Reportable Eos # (Auto) Not Reportable Not Reportable Baso # (Auto) Not Reportable Not Reportable Abs Immat Gran (auto) Not Reportable Not Reportable Absolute Neuts (auto) Not Reportable Not Reportable Absolute Nucleated RBC Not Reportable Not Reportable Total Counted 100 Neutrophils % (Manual) 61 Band Neutrophils % 16 H Lymphocytes % (Manual) 6 L Monocytes % (Manual) 17 H Nucleated RBC % Not Reportable Not Reportable Abs Neuts (Manual) 3.54 Abs Lymphs (Manual) 0.27 L Abs Monocytes (Manual) 0.78 Toxic Granulation Present Platelet Estimate Decreased Decreased Large Platelets Present % Immature Plt Fraction 2.5 2.7 Anisocytosis 1+ 1+ Ovalocytes 1+ [place] Cells 1+ Crenated Cell 2+ Schistocytes None seen None seen Sodium 141 141 Potassium 3.1 L 3.0 L Chloride 115 H 116 H Carbon Dioxide 13 L 13 L Anion Gap 13 H 12 BUN 44 H 44 H Creatinine 2.46 H 2.50 H Estim Creat Clear Calc 24 23 Estimated GFR 31 L 31 L Glucose 93 78 Calcium 8.3 L 8.5 Vancomycin Trough 14.3
[2024-07-30] MEDS: BUDESONIDE RESPULE NEB 0.5 MG/2 ML AMP 0.25 MG INHALATION ×2 (10:53→22:21)
[2024-07-30] MEDS: ARFORMOTEROL 15 MCG/2 ML 15 EACH INHALATION ×2 (10:54→22:21)
--- NOTE | 2024-07-30 10:56 | P.CONNP_ITS ---
History of Present Illness Reason for Consult Consult date: 07/30/24 Reason for consult: acute renal failure (chronic kidney disease) Chief Complaint Chief complaint: Anemia Thrombocytopenia Review of Systems 2 Review of Systems: As per HPI. [facility] Past Medical History Medical History G6PD deficiency anemia Hypertension COPD (chronic obstructive pulmonary disease) Chronic kidney disease G6PD deficiency History of biliary stent insertion Former smoker Chronic respiratory failure with hypoxia, on home oxygen therapy Benign prostatic hyperplasia Small cell lung cancer (02/2024) Hepatitis C GERD (gastroesophageal reflux disease) Pulmonary emboli (11/2021) Former smoker Asbestos exposure Environmental allergies Sleep apnea Chronic viral hepatitis C Elevated PSA Surgical History Surgical History History of back surgery History of ankle surgery (2015) Family History Family History Father Cancer Pancreatic cancer Mother Asthma Cerebrovascular accident Sibling Diabetes mellitus Hypertension Heart disease Cerebrovascular accident Cancer of colon Other Lung disease Social History Social History Social History: Surrogate medical decision maker: Negni Cotto, spouse. Code status: Full code. Smoking packs per day: 1 Smoking cigarettes per day: 20.0 Years smoked: 50 Smoking pack-years: 50.00 Smoking status: Former smoker Second hand tobacco smoke exposure: No Alcohol intake: never Drinks per week: 1 Alcohol use details: Social alcohol use in moderation. Substance use: never Substance use type: does not use Do You Feel Safe in your Home?: Yes Lack of Transportation: YES Lack of Food: Never True Current Housing: I Have Housing Concerned About Future Housing: No Difficulty Paying Gas/Electric Bills: No Difficulty Paying for Meds: No Currently Unemployed: No Education: Associate Degree Difficulty w/ Childcare or Family Care: No Living arrangements: alone Occupation/Education: retired Gender identity (if verbalized by the patient): Male Sexual Orientation (if Verbalized by the Patient): Straight or Heterosexual Spiritual care concerns: No Meds Home Medications and Allergies Home Medications ?Medication ?Instructions ?Recorded ?Confirmed ?Type doxazosin 8 mg tablet 8 mg PO HS 03/07/20 07/27/24 History ergocalciferol (vitamin D2) 1,250 1,250 mcg PO WEEKLY 03/07/20 07/27/24 History mcg (50,000 unit) capsule fluticasone propionate 50 1 spray intranasal DAILY PRN 03/07/20 07/27/24 History mcg/actuation nasal Congestion spray,suspension nebulizer and compressor (Easy Neb #1 ea 03/07/20 07/28/24 History Compressor Nebulizer) sildenafil 100 mg tablet 100 mg PO PRN PRN Erectile 03/07/20 07/27/24 History Dysfunction omeprazole 40 mg capsule,delayed 40 mg PO DAILY 01/28/23 07/27/24 History release methocarbamol 500 mg tablet 500 mg PO PRN PRN back spasms 08/30/23 07/27/24 History roflumilast 500 mcg tablet 500 mcg PO HS copd 08/30/23 07/27/24 History Vitamin C 1 tab-cap PO DAILY 03/30/24 07/27/24 History ferrous sulfate 2 tab-cap PO DAILY 03/30/24 07/27/24 History vitamin [id number] acid 1 tab-cap PO DAILY 03/30/24 07/27/24 History albuterol sulfate 90 mcg/actuation See Rx Instructions .Route 04/12/24 07/27/24 Rx aerosol inhaler .COMPLEX #3 ea baclofen 10 mg tablet 10 mg PO TID PRN Hiccups 04/15/24 07/27/24 History budesonide 0.25 mg/2 mL suspension 0.25 mg inhalation BID 04/15/24 07/27/24 History for nebulization levocetirizine 5 mg tablet 5 mg PO HS 04/15/24 07/27/24 History metoprolol tartrate 25 mg tablet 25 mg PO HS 04/15/24 07/27/24 History revefenacin 175 mcg/3 mL solution 175 mcg (3 mL) inhalation DAILY 05/09/24 07/27/24 Rx for nebulization ([place]) COPD 1 month #90 mL aspirin 81 mg chewable tablet 81 mg PO DAILY 05/31/24 07/27/24 History (Aspirin [facility]) metoprolol tartrate 25 mg tablet 25 mg PO Q12H 05/31/24 07/29/24 History arformoterol 15 mcg/2 mL solution 15 mcg (2 mL) inhalation BID COPD 06/04/24 07/27/24 Rx for nebulization 1 month #120 mL montelukast 10 mg tablet See Rx Instructions .Route 06/04/24 07/27/24 Rx .COMPLEX #90 tabs albuterol sulfate 90 mcg/actuation See Rx Instructions .Route 07/12/24 07/28/24 Rx aerosol inhaler .COMPLEX #3 ea allopurinol 300 mg tablet 300 mg PO DAILY Gout 07/18/24 07/27/24 History Allergies Allergy/AdvReac Type Severity Reaction Status Date / Time lisinopril Allergy Severe Swelling Verified 07/19/24 16:50 Penicillins Allergy Intermediate Hives / Verified 07/18/24 08:48 Red Face Sulfa (Sulfonamide Allergy Intermediate Hives / Verified 07/18/24 08:48 Antibiotics) Red Face Vital Signs Vital Signs Temp Pulse Resp BP Pulse Ox O2 Del Method O2 Flow Rate 07/30/24 10:55 104 H 20 92 Nasal Cannula 3 07/30/24 09:40 115 H 20 07/30/24 09:27 114 H 20 07/30/24 09:27 115 H 20 93 Nasal Cannula 3 07/30/24 06:00 97.8 F 109 H 20 139/88 98 07/29/24 21:55 96.8 F L 108 H 20 135/79 97 07/29/24 20:55 112 H 20 07/29/24 20:45 108 H 20 07/29/24 20:45 95 Nasal Cannula 3 07/29/24 20:23 100 07/29/24 20:00 97 Nasal Cannula 3 Results Lab Results 07/30/24 06:02 07/30/24 06:02 Lab results: Most recent lab results Calcium 8.5 mg/dL (8.4-10.2) 07/30/24 06:02
[2024-07-30] MEDS: REVEFENACIN 175 MCG/3 ML 175 EACH INHALATION (11:02)
[2024-07-30] MEDS: CENTRAL LINE FLUSH 10 ML IV PUSH ×2 (14:59→21:19)
[2024-07-30] MEDS: AZITHROMYCIN 250 MG TABLET 500 MG PO (17:26)
[2024-07-30] MEDS: ROFLUMILAST 500 MCG TABLET PO (21:19)
[2024-07-30] MEDS: DOXAZOSIN MESYLATE 4 MG TABLET 8 MG PO (21:19)
[2024-07-30] MEDS: EPOETIN ALFA-EPBX 20,000 UNITS/ML VIAL 20000 UNITS SUB-Q (21:20)
[2024-07-30] MEDS: IPRATROPIUM 0.5 MG/ALBUTEROL SULFATE 2.5 MG AMPUL.NEB 3 ML INHALATION (22:21)
[2024-07-31] VITALS (13 sets, daily range): BP systolic 136–150; BP diastolic 65–86; PULSE 92–116; RESP 18–20; TEMP 36.3–37.6; O2SAT 92–100
[2024-07-31] MEDS: IPRATROPIUM 0.5 MG/ALBUTEROL SULFATE 2.5 MG AMPUL.NEB 3 ML INHALATION ×3 (03:28→14:35)
[2024-07-31] MEDS: CEFEPIME 1 GM/NS 50 ML 1 GM/50 ML BAG IVPB ×2 (04:56→16:49)
[2024-07-31] MEDS: CENTRAL LINE FLUSH 10 ML IV PUSH ×2 (05:04→14:43)
[2024-07-31 05:17] LABS: Hematocrit 21.8 % (42.0-52.0); Hemoglobin 7.1 g/dL (14.0-18.0); Mean Corpuscular HGB Conc 32.6 g/dl (32-36); Mean Corpuscular Hemoglobin 29.2 pg (26-34); Mean Corpuscular Volume 89.7 fl (80-100); Mean Platelet Volume 8.7 fl (7.4-10.4); Platelet Count Result 36 k/mm3 (150-375); Red Blood Count 2.43 M/mm3 (4.6-6.20); White Blood Count 7.7 K/mm3 (4.5-10.0)
[2024-07-31 05:44] LABS: Anion Gap 14 mmol/L (4-12); Blood Urea Nitrogen 40 mg/dL (9-20); Calcium 8.5 mg/dL (8.4-10.2); Carbon Dioxide 13 mmol/L (22-30); Chloride 116 mmol/L (98-107); Estimated CRCL calculation 23 ml/min; Estimated Glomerular Filt Rate 31; Glucose 103 mg/dL (65-110); Potassium 2.8 mmol/L (3.4-5.0); Sodium 143 mmol/L (137-145)
[2024-07-31 06:02] LABS: Band Neutrophils Percent 10 % (0-6); Eosinophils Absolute Manual 0.07 K/mm3 (0.02-0.50); Eosinophils Percent Manual 1 % (0-4); Lymphocytes Absolute Manual 1.07 K/mm3 (1.1-4.5); Monocytes Absolute Manual 0.07 K/mm3 (0.1-0.90); Monocytes Percent Manual 1 % (3-9); Neutrophils Absolute Manual 6.46 K/mm3 (1.3-6.7); Neutrophils Percent Manual 74 % (46-73); Platelet Estimate Decreased (Adequate); Total Cells Counted 100
[2024-07-31 06:03] LABS: Anisocytosis 1+; Burr Cells 1+; Ovalocytes 1+; Schistocytes None Seen; Tear Drop Cells 1+
[2024-07-31 06:05] LABS: Magnesium 1.3 mg/dL (1.6-2.3)
[2024-07-31] MEDS: POTASSIUM CHLORIDE 20 MEQ ER TABLET 40 MEQ PO (06:45)
[2024-07-31] MEDS: MAGNESIUM SULF 4 GM/WATER100ML 4 GM/100 ML BAG IVPB (06:46)
[2024-07-31] MEDS: KCL 20 MEQ/SW 100 ML 100 ML 50 MEQ IVPB (06:46)
--- NOTE | 2024-07-31 07:46 | P.CDI_ITS ---
CDI Query Clarification Request BMI: 28.0 Nutritional Diagnostic Statement: Please refer to the comprehensive nutrition assessment for further information. If you agree with diagnosis of Severe protein calorie malnutrition related to chronic loss of appetite, cancer treatment as evidenced by weight loss 15%/7 months; intakes <75% needs >1 month; moderate muscle wasting and fat loss. Please specify severity if known: * Mild * Moderate * Severe * Other/Unknown <Cinthya Catherine RN - Last Filed: 07/31/24 08:20> Clarified Diagnosis Clarified Diagnosis: moderate <Serjio Blankenship MD - Last Filed: 07/31/24 09:32>
[2024-07-31] MEDS: BUDESONIDE RESPULE NEB 0.5 MG/2 ML AMP 0.25 MG INHALATION ×2 (08:03→21:14)
--- NOTE | 2024-07-31 09:10 | P.PNIM_ITS ---
Progress Note: A&P Assessment and Plan (1) Sepsis: Qualifiers: Sepsis acute organ dysfunction status: without acute organ dysfunction Sepsis type: sepsis due to unspecified organism Qualified Code(s): A41.9 - S epsis, unspecified organism Code(s): A41.9 - Sepsis, unspecified organism Status: Acute (2) HTN (hypertension): Qualifiers: Hypertension type: unspecified Qualified Code(s): I10 - Essential (primary) hypertension Code(s): I10 - Essential (primary) hypertension Status: Chronic (3) Small cell lung cancer: Onset Date: 02/2024 Qualifiers: Laterality: right Lung location: unspecified part of lung Qualified Code(s): C34.91 - Malignant neoplasm of unspecified part of right bronchus or lung Code(s): C34.90 - Malignant neoplasm of unspecified part of unspecified bronchus or lung Status: Chronic (4) Pancytopenia due to antineoplastic chemotherapy: Code(s): D61.810 - Antineoplastic chemotherapy induced pancytopenia; T45.1X5A - Adverse effect of antineoplastic and immunosuppressive drugs, initial encounter Status: Acute Plan (1) Sepsis: Qualifiers: Sepsis acute organ dysfunction status: without acute organ dysfunction Sepsis type: sepsis due to unspecified organism Qualified Code(s): A41.9 - Sepsis, unspecified organism Code(s): A41.9 - Sepsis, unspecified organism Status: Acute Assessment and Plan: - meets SIRS criteria: HR, RR. WBC 1.0. No current hypoxia or hypotension. - lactic acid and procalcitonin ordered - 30 mL/kg = 2.5L, start with 2L bolus and assess toleration. - suspected source: Pneumonia - started on cefepime, azithromycin, vancomycin - blood cultures drawn on 07/27, follow - monitor hemodynamic stability Blood pressure still soft Started normal saline IV 150 mL/hour on July 28 Blood pressure became stable, decreased to normal saline 100 mL/hour on Jul 29 BP stable dc NS 07/30 Sepsis resolved Pneumonia: Qualifiers: Laterality: bilateral Lung location: unspecified part of lung Pneumonia type: due to unspecified organism Qualified Code(s): J18.9 - Pneumonia, unspecified organism Code(s): J18.9 - Pneumonia, unspecified organism Status: Acute Assessment and Plan: CXR: Multifocal left-sided consolidation, consistent with pneumonia. Patient is immunocompromised, pancytopenia due to chemo, lung cancer Patient is on Vancomycin, cefepime, azithromycin - MRSA PCR, viral PCR, sputum culture is positive for of Pseudomonas ct chest 07/29 : Emphysema with extensive new consolidation the bilateral upper lobes consistent with pneumonia. MRSA negative, discontinue vancomycin, continue azithromycin, continue cefepime IV till 08/03 per ID pharmacist Chronic resp failure baseline O2 requirement: 3L NC Monitor pulse ox Continue O2 therapy Pancytopenia Upon arrival WBC 1.0, HGB 6.0, platelet count 18 Possible due to chemo and radiation therapy transfuse 2 units of PRBC and 2 units of [place] Follow stool guaiac, ferritin 16,800 , haptoglobin 292 reticulocyte 2.5% oncology consulted,continue Procrit 95136 units on a biweekly basis for anemia Small cell lung cancer: Onset Date: 02/2024 Qualifiers: Laterality: right Lung location: unspecified part of lung Qualified Code(s): C34.91 - Malignant neoplasm of unspecified part of right bronchus or lung Code(s): C34.90 - Malignant neoplasm of unspecified part of unspecified bronchus or lung Status: Chronic Assessment and Plan: Lung cancer, underwent chemo and radiation. Last chemotherapy was on 06/18/24 and last radiation treatment on 05/04/24. oncology consulted, per oncologist, patient has already completed therapy treatment in April and chemotherapy cycle 4. On July 18. CT scan finding discussed with the patient that showed no evidence of relapse of malignancy. Oncologist we will follow-up in the office for further surveillance. PRISCILLA on CKD creatinine 2.7 and GFR 28, previously 1.6 and GFR 52 on 07/16/2024 Likely resulting from sepsis Received IV fluids: 2L bolus - monitor I&Os Renal function is not improving, Cr stable Received normal saline ct showed: Bilateral nonobstructing nephrolithiasis. Consult layout mechanic for evaluation treatment HTN (hypertension): Qualifiers: Hypertension type: unspecified Qualified Code(s): I10 - Essential (primary) hypertension Code(s): I10 - Essential (primary) hypertension Status: Chronic Assessent and Plan: Stable now Continue metoprolol p.o. (7) Obstructive sleep apnea: Code(s): G47.33 - Obstructive sleep apnea (adult) (pediatric) Status: Acute Assessment and Plan: - does not use CPAP Plan Diet: Heart healthy GI Prophylaxis: Not currently indicated DVT Prophylaxis: SCDs Lines: peripheral Code Status: DNR Subjective Date/time seen: 07/31/24 09:10 Interval history: Patient is afebrile overnight, patient feels better today, still has tachycardia, tachypnea, on 3 L oxygen, Patient still has cough, patient feels tired, poor appetite, patient is afebrile overnight, Exam Narrative: GENERAL: Pleasant, in no acute distress. Well-nourished. - EYES: EOMI. Anicteric. - HENT: Moist mucous membranes. - LUNGS: Coarse breath sound bilaterall y, no wheezing, rhonchi, or rales. - CARDIOVASCULAR: Regular rate and rhyth m. No murmur. No JVD. - ABDOMEN: Soft, non-tender and non-dist ended. No palpable masses. - EXTREMITIES: No edema. Peripheral puls es 2+. Non-tender. - NEUROLOGIC: No focal neurological defi cits. CN II-XII grossly intact. - PSYCHIATRIC: Awake, Alert and oriented x 3. Appropriate mood and affect. - SKIN: No rashes or lesions. Warm. - LYMPH: No cervical lymphadenopathy. Objective Data Vital Signs Vital Signs: Vital Signs - 24 hr 07/30/24 09:27 07/30/24 09:27 07/30/24 09:40 Temperature Pulse Rate 115 H 114 H 115 H Respiratory Rate 20 20 20 Blood Pressure Pulse Oximetry 93 Oxygen Delivery Nasal Cannula Oxygen Flow Rate 3 07/30/24 10:55 07/30/24 10:55 07/30/24 11:06 Temperature Pulse Rate 104 H 102 H 98 Respiratory Rate 20 20 20 Blood Pressure Pulse Oximetry 92 Oxygen Delivery Nasal Cannula Oxygen Flow Rate 3 07/30/24 14:00 07/30/24 20:00 07/30/24 21:43 Temperature 97.6 F 99.2 F Pulse Rate 91 107 H Respiratory Rate 20 18 Blood Pressure 136/78 149/67 H Pulse Oximetry 94 93 98 Oxygen Delivery Nasal Cannula Oxygen Flow Rate 3 07/30/24 22:20 07/30/24 22:25 07/30/24 22:36 Temperature Pulse Rate 120 H 98 Respiratory Rate 20 20 Blood Pressure Pulse Oximetry 93 Oxygen Delivery Nasal Cannula Oxygen Flow Rate 3 07/31/24 03:29 07/31/24 03:39 07/31/24 05:40 Temperature 99.6 F Pulse Rate 92 99 107 H Respiratory Rate 20 20 20 Blood Pressure 143/79 H Pulse Oximetry 99 Oxygen Delivery Oxygen Flow Rate 07/31/24 08:03 07/31/24 09:00 Temperature Pulse Rate 116 H Respiratory Rate 18 Blood Pressure 136/65 Pulse Oximetry 99 Oxygen Delivery Oxygen Flow Rate Intake/Output Intake/Output: Intake & Output 07/28/24 07/29/24 07/30/24 07/31/24 23:59 23:59 23:59 23:59 Intake Total 3180 3550.0 2830 600 Output Total 1900 1945 3225 1350 Balance 1280 1605.0 -052 -750 Meds/Results Medications: Active Medications Generic Name Dose Route Start Last Admin Trade Name Freq PRN Reason Stop Dose Admin Acetaminophen 650 mg 07/27/24 14:41 07/27/24 23:55 Acetaminophen 325 Mg Tablet PO 650 mg Q4H PRN Administration Mild Pain (1-3) or Fever Hydrocodone Bitart/Acetaminophen 1 tab 07/27/24 14:41 Hydrocodone/Acetaminophen (*Crx) 5-325 Mg Tablet PO Q4H PRN Pain Rated 4-6 Albuterol 1 - 2 puff 07/27/24 23:05 Albuterol Sulfate (*Sp) Aerosol 1 Puff INHALATION Q4-6H PRN sob/wheezing Albuterol/Ipratropium 3 ml 07/27/24 20:00 07/31/24 08:03 Ipratropium 0.5 Mg/Albuterol Sulfate 2.5 Mg Ampul.Neb 3 Ml INHALATION 3 ml Q6HRT [facility] Administration Allopurinol 300 mg 07/28/24 09:00 07/30/24 08:40 Allopurinol 300 Mg Tablet PO 300 mg DAILY [facility] Administration Ascorbic Acid 500 mg 07/28/24 09:00 07/30/24 08:43 Ascorbic Acid 500 Mg Tablet PO 500 mg QAM [facility] Administration Aspirin 81 mg 07/28/24 09:00 07/30/24 08:38 Aspirin 81 Mg Chewable Tablet PO 81 mg DAILY [facility] Administration Azithromycin 500 mg 07/30/24 17:00 07/30/24 17:26 Azithromycin 250 Mg Tablet PO 07/31/24 17:01 500 mg DAILY@1700 [facility] Administration Baclofen 10 mg 07/27/24 23:01 Baclofen 10 Mg Tablet PO TID PRN Hiccups Benzonatate 100 mg 07/27/24 16:31 Benzonatate 100 Mg Capsule PO TID PRN Cough Budesonide 0.25 mg 07/28/24 08:00 07/31/24 08:03 Budesonide Respule Neb 0.5 Mg/2 Ml Amp INHALATION 0.25 mg Q12HRT [facility] Administration Cyanocobalamin 1,000 mcg 07/28/24 09:00 07/30/24 08:40 Cyanocobalamin 1,000 Mcg Tablet PO 1,000 mcg QAM [facility] Administration Doxazosin Mesylate 8 mg 07/28/24 21:00 07/30/24 21:19 Doxazosin Mesylate 4 Mg Tablet PO 8 mg HS [facility] Administration Ergocalciferol 50,000 units 08/02/24 09:00 Ergocalciferol 50,000 Units Capsule PO WEEKLY [facility] Ferrous Sulfate 650 mg 07/28/24 09:00 07/30/24 08:43 Ferrous Sulfate [address] BY MOUTH 650 mg DAILY [facility] Administration Fluticasone Propionate 1 spray 07/27/24 23:01 Fluticasone Propionate 0.05% Na Spr 16 Gm Btl (*Bkc) NASAL DAILY PRN Congestion Folic Acid 1 mg 07/28/24 09:00 07/30/24 08:38 Folic Acid 1 Mg Tablet PO 1 mg QAM [facility] Administration Guaifenesin 600 mg 07/27/24 21:00 07/30/24 21:18 Guaifenesin 12 Hr 600 Mg Tabcr PO 600 mg Q12HR [facility] Administration Heparin Sodium (Beef Lung) 50 units 07/29/24 09:00 07/31/24 08:57 Heparin Flush 50 Units/5 Ml Syringe IV PUSH 50 units QAM [facility] Administration Heparin Sodium (Beef Lung) 50 units 07/28/24 10:11 Heparin Flush 50 Units/5 Ml Syringe IV PUSH PRN PRN after intermittent infusion Heparin Sodium (Beef Lung) 50 units 07/28/24 10:11 Heparin Flush 50 Units/5 Ml Syringe IV PUSH PRN PRN after blood draws Heparin Sodium (Porcine) 500 units 07/28/24 10:11 Heparin Sodium Lock Flush 500 Units/5 Ml Syringe IV PUSH PRN PRN see comments below Cefepime HCl 1 gm in 50 mls @ 100 mls/hr 07/27/24 18:00 07/31/24 05:26 Maxipime 1 Gm/Ns 50 Ml IVPB 08/03/24 06:29 Infused Q12H [facility] Infusion Magnesium Sulfate 4 gm in 100 mls @ 25 mls/hr 07/31/24 06:25 07/31/24 06:46 Magnesium Sulf 4 Gm/[id number] IVPB 07/31/24 10:24 25 mls/hr ONCE ONE Administration Loratadine 10 mg 07/28/24 09:00 07/30/24 20:04 Loratadine 10 Mg Tablet PO Not Given QAM [facility] Methocarbamol 500 mg 07/27/24 23:01 Methocarbamol 500 Mg Tablet PO PRN PRN back spasms Metoprolol Tartrate 25 mg 07/29/24 09:25 07/30/24 21:19 Metoprolol Tartrate 25 Mg Tablet PO 25 mg Q12HR [facility] Administration Montelukast Sodium 10 mg 07/27/24 09:00 07/30/24 08:39 Montelukast Sodium 10 Mg Tablet PO 10 mg DAILY [facility] Administration * Home Med * 15 mcg 07/29/24 12:00 07/30/24 22:21 Arformoterol 15 Mcg/ INHALATION 08/28/24 11:59 15 mcg 2 Ml Solution For Q12HRT [facility] Administration Nebulization * Home Med * 175 mcg 07/29/24 12:05 07/30/24 11:02 Revefenacin [Yupelri INHALATION 08/28/24 12:04 175 mcg ] 175 Mcg/3 Ml DAILYRT [facility] Administration Solution For Nebulization Ondansetron HCl 4 mg 07/27/24 14:41 Ondansetron Inj 4 Mg/2 Ml Vial IV PUSH Q4H PRN Nausea Pantoprazole Sodium 40 mg 07/28/24 09:00 07/30/24 21:19 Pantoprazole 40 Mg Tablet PO 40 mg Q12HR [facility] Administration Roflumilast 500 mcg 07/28/24 21:00 07/30/24 21:19 Roflumilast 500 Mcg Tablet PO 500 mcg HS [facility] Administration Sodium Bicarbonate 1,300 mg 07/31/24 09:00 Sodium Bicarbonate Tab 650 Mg Tablet PO BID [facility] Sodium Chloride 10 ml 07/28/24 14:00 07/31/24 05:04 Central Line Flush IV PUSH 10 ml Q8HR [facility] Administration Radiology Results: ITS Impressions Chest X-Ray 07/27/24 15:37 Impression: 1: Multifocal left-sided consolidation, consistent with pneumonia. Chest/Abdomen/Pelvis CT 07/29/24 16:54 IMPRESSION: 1. Emphysema with extensive new consolidation the bilateral upper lobes consistent with pneumonia. 2. Intra and extra hepatic ductal or ductal dilation and pneumobilia with unchanged. Unchanged biliary stent in expected position. 3. Bilateral nonobstructing nephrolithiasis. 4. Prostatomegaly. Labs Labs: Laboratory Results - last 24 hr 07/31/24 07/31/24 04:55 05:02 WBC 7.7 RBC 2.43 L Hgb 7.1 L Hct 21.8 L MCV 89.7 MCH 29.2 MCHC 32.6 RDW 16.0 H Plt Count 36 L MPV 8.7 Immature Gran % (Auto) Not Reportable Neut % (Auto) Not Reportable Lymph % (Auto) Not Reportable [place] % (Auto) Not Reportable Eos % (Auto) Not Reportable Baso % (Auto) Not Reportable Lymph # (Auto) Not Reportable [place] # (Auto) Not Reportable Eos # (Auto) Not Reportable Baso # (Auto) Not Reportable Abs Immat Gran (auto) Not Reportable Absolute Neuts (auto) Not Reportable Absolute Nucleated RBC Not Reportable Total Counted 100 Neutrophils % (Manual) 74 H Band Neutrophils % 10 H Lymphocytes % (Manual) 14.0 L Monocytes % (Manual) 1 L Eosinophils % (Manual) 1 Nucleated RBC % Not Reportable Abs Neuts (Manual) 6.46 Abs Lymphs (Manual) 1.07 L Abs Monocytes (Manual) 0.07 L Absolute Eos (Manual) 0.07 Platelet Estimate Decreased % Immature Plt Fraction 3.0 Anisocytosis 1+ Tear Drop Cells 1+ Ovalocytes 1+ [place] Cells 1+ Schistocytes None seen Sodium 143 Potassium 2.8 L* Chloride 116 H Carbon Dioxide 13 L Anion Gap 14 H BUN 40 H Creatinine 2.52 H Estim Creat Clear Calc 23 Estimated GFR 31 L Glucose 103 Calcium 8.5 Magnesium 1.3 L
[2024-07-31] MEDS: SODIUM BICARBONATE TAB 650 MG TABLET 1300 MG PO ×2 (09:29→16:49)
[2024-07-31] MEDS: ASPIRIN 81 MG CHEWABLE TABLET PO (09:30)
[2024-07-31] MEDS: METOPROLOL TARTRATE 25 MG TABLET PO ×2 (09:30→21:23)
[2024-07-31] MEDS: FERROUS SULFATE 325 MG TABLET DR 650 MG BY MOUTH (09:31)
[2024-07-31] MEDS: ASCORBIC ACID 500 MG TABLET PO (09:32)
[2024-07-31] MEDS: MONTELUKAST SODIUM 10 MG TABLET PO (09:32)
[2024-07-31] MEDS: guaiFENesin 12 HR 600 MG TABCR PO ×2 (09:32→21:23)
[2024-07-31] MEDS: allopurinoL 300 MG TABLET PO (09:33)
[2024-07-31] MEDS: CYANOCOBALAMIN 1,000 MCG TABLET 1000 MCG PO (09:33)
[2024-07-31] MEDS: LORATADINE 10 MG TABLET PO (09:33)
[2024-07-31] MEDS: FOLIC ACID 1 MG TABLET PO (09:34)
[2024-07-31] MEDS: PANTOPRAZOLE 40 MG TABLET PO ×2 (09:34→21:23)
--- NOTE | 2024-07-31 11:00 | P.PNNP_ITS ---
Subjective Date/time seen: 07/31/24 11:00 Interval history: Follow-up for acute kidney injury/acute renal failure on chronic kidney disease. Renal function/creatinine relatively stable (no worse but no better) at this time but continues to make good urine output; Exam 2 Narrative: General: elderly male in NAD Heart: normal S1 and S2; no rub Lungs: coarse breath sounds Abdomen: soft, nontender, nondistended, positive bowel sounds Extremities: no cyanosis or clubbing; no edema Skin: warm and dry Objective Data Vital Signs Vital Signs: Vital Signs Temp Pulse Resp BP Pulse Ox O2 Del Method O2 Flow Rate 07/31/24 09:30 116 H 07/31/24 09:00 116 H 136/65 99 07/31/24 08:03 18 07/31/24 05:40 99.6 F 107 H 20 143/79 H 99 07/31/24 03:39 99 20 07/31/24 03:29 92 20 07/30/24 22:36 98 20 07/30/24 22:25 120 H 20 07/30/24 22:20 93 Nasal Cannula 3 07/30/24 21:43 99.2 F 107 H 18 149/67 H 98 07/30/24 20:00 93 Nasal Cannula 3 07/30/24 14:00 97.6 F 91 20 136/78 94 Intake/Output Intake/Output: Intake & Output 07/28/24 07/29/24 07/30/24 07/31/24 23:59 23:59 23:59 23:59 Intake Total 3180 3550.0 2830 840 Output Total 1900 1945 3225 1600 Balance 1280 1605.0 -395 -760 Meds/Results Medications: Active Medications Generic Name Dose Route Start Last Admin Trade Name Freq PRN Reason Stop Dose Admin Acetaminophen 650 mg 07/27/24 14:41 07/27/24 23:55 Acetaminophen 325 Mg Tablet PO 650 mg Q4H PRN Administration Mild Pain (1-3) or Fever Hydrocodone Bitart/Acetaminophen 1 tab 07/27/24 14:41 Hydrocodone/Acetaminophen (*Crx) 5-325 Mg Tablet PO Q4H PRN Pain Rated 4-6 Albuterol 1 - 2 puff 07/27/24 23:05 Albuterol Sulfate (*Sp) Aerosol 1 Puff INHALATION Q4-6H PRN sob/wheezing Albuterol/Ipratropium 3 ml 07/27/24 20:00 07/31/24 08:03 Ipratropium 0.5 Mg/Albuterol Sulfate 2.5 Mg Ampul.Neb 3 Ml INHALATION 3 ml Q6HRT [facility] Administration Allopurinol 300 mg 07/28/24 09:00 07/31/24 09:33 Allopurinol 300 Mg Tablet PO 300 mg DAILY [facility] Administration Ascorbic Acid 500 mg 07/28/24 09:00 07/31/24 09:32 Ascorbic Acid 500 Mg Tablet PO 500 mg QAM [facility] Administration Aspirin 81 mg 07/28/24 09:00 07/31/24 09:30 Aspirin 81 Mg Chewable Tablet PO 81 mg DAILY [facility] Administration Azithromycin 500 mg 07/30/24 17:00 07/30/24 17:26 Azithromycin 250 Mg Tablet PO 07/31/24 17:01 500 mg DAILY@1700 [facility] Administration Baclofen 10 mg 07/27/24 23:01 Baclofen 10 Mg Tablet PO TID PRN Hiccups Benzonatate 100 mg 07/27/24 16:31 Benzonatate 100 Mg Capsule PO TID PRN Cough Budesonide 0.25 mg 07/28/24 08:00 07/31/24 08:03 Budesonide Respule Neb 0.5 Mg/2 Ml Amp INHALATION 0.25 mg Q12HRT [facility] Administration Cyanocobalamin 1,000 mcg 07/28/24 09:00 07/31/24 09:33 Cyanocobalamin 1,000 Mcg Tablet PO 1,000 mcg QAM [facility] Administration Doxazosin Mesylate 8 mg 07/28/24 21:00 07/30/24 21:19 Doxazosin Mesylate 4 Mg Tablet PO 8 mg HS [facility] Administration Ergocalciferol 50,000 units 08/02/24 09:00 Ergocalciferol 50,000 Units Capsule PO WEEKLY [facility] Ferrous Sulfate 650 mg 07/28/24 09:00 07/31/24 09:31 Ferrous Sulfate [address] BY MOUTH 650 mg DAILY [facility] Administration Fluticasone Propionate 1 spray 07/27/24 23:01 Fluticasone Propionate 0.05% Na Spr 16 Gm Btl (*Bkc) NASAL DAILY PRN Congestion Folic Acid 1 mg 07/28/24 09:00 07/31/24 09:34 Folic Acid 1 Mg Tablet PO 1 mg QAM [facility] Administration Guaifenesin 600 mg 07/27/24 21:00 07/31/24 09:32 Guaifenesin 12 Hr 600 Mg Tabcr PO 600 mg Q12HR [facility] Administration Heparin Sodium (Beef Lung) 50 units 07/29/24 09:00 07/31/24 08:57 Heparin Flush 50 Units/5 Ml Syringe IV PUSH 50 units QAM [facility] Administration Heparin Sodium (Beef Lung) 50 units 07/28/24 10:11 Heparin Flush 50 Units/5 Ml Syringe IV PUSH PRN PRN after intermittent infusion Heparin Sodium (Beef Lung) 50 units 07/28/24 10:11 Heparin Flush 50 Units/5 Ml Syringe IV PUSH PRN PRN after blood draws Heparin Sodium (Porcine) 500 units 07/28/24 10:11 Heparin Sodium Lock Flush 500 Units/5 Ml Syringe IV PUSH PRN PRN see comments below Cefepime HCl 1 gm in 50 mls @ 100 mls/hr 07/27/24 18:00 07/31/24 05:26 Maxipime 1 Gm/Ns 50 Ml IVPB 08/03/24 06:29 Infused Q12H [facility] Infusion Loratadine 10 mg 07/28/24 09:00 07/31/24 09:33 Loratadine 10 Mg Tablet PO 10 mg QAM [facility] Administration Methocarbamol 500 mg 07/27/24 23:01 Methocarbamol 500 Mg Tablet PO PRN PRN back spasms Metoprolol Tartrate 25 mg 07/29/24 09:25 07/31/24 09:30 Metoprolol Tartrate 25 Mg Tablet PO 25 mg Q12HR [facility] Administration Montelukast Sodium 10 mg 07/27/24 09:00 07/31/24 09:32 Montelukast Sodium 10 Mg Tablet PO 10 mg DAILY [facility] Administration * Home Med * 15 mcg 07/29/24 12:00 07/30/24 22:21 Arformoterol 15 Mcg/ INHALATION 08/28/24 11:59 15 mcg 2 Ml Solution For Q12HRT [facility] Administration Nebulization * Home Med * 175 mcg 07/29/24 12:05 07/30/24 11:02 Revefenacin [Yupelri INHALATION 08/28/24 12:04 175 mcg ] 175 Mcg/3 Ml DAILYRT [facility] Administration Solution For Nebulization Ondansetron HCl 4 mg 07/27/24 14:41 Ondansetron Inj 4 Mg/2 Ml Vial IV PUSH Q4H PRN Nausea Pantoprazole Sodium 40 mg 07/28/24 09:00 07/31/24 09:34 Pantoprazole 40 Mg Tablet PO 40 mg Q12HR [facility] Administration Roflumilast 500 mcg 07/28/24 21:00 07/30/24 21:19 Roflumilast 500 Mcg Tablet PO 500 mcg HS [facility] Administration Sodium Bicarbonate 1,300 mg 07/31/24 09:00 07/31/24 09:29 Sodium Bicarbonate Tab 650 Mg Tablet PO 1,300 mg BID [facility] Administration Sodium Chloride 10 ml 07/28/24 14:00 07/31/24 05:04 Central Line Flush IV PUSH 10 ml Q8HR [facility] Administration Radiology Results: ITS Impressions Chest X-Ray 07/27/24 15:37 Impression: 1: Multifocal left-sided consolidation, consistent with pneumonia. Chest/Abdomen/Pelvis CT 07/29/24 16:54 IMPRESSION: 1. Emphysema with extensive new consolidation the bilateral upper lobes consistent with pneumonia. 2. Intra and extra hepatic ductal or ductal dilation and pneumobilia with unchanged. Unchanged biliary stent in expected position. 3. Bilateral nonobstructing nephrolithiasis. 4. Prostatomegaly. Labs Labs: Laboratory Tests 07/31/24 05:02 07/31/24 05:02 Calcium 8.5 Magnesium 1.3 L Microbiology 07/27/24 16:53 Sputum Sputum Culture - Final Pseudomonas aeruginosa
[2024-07-31 13:09] LABS: Band Neutrophils Percent 9 % (0-6); Lymphocytes Absolute Manual 0.48 K/mm3 (1.1-4.5); Lymphocytes Percent Manual 6 % (18-44); Monocytes Absolute Manual 0.24 K/mm3 (0.1-0.90); Monocytes Percent Manual 3 % (3-9); Neutrophils Absolute Manual 7.28 K/mm3 (1.3-6.7); Neutrophils Percent Manual 82 % (46-73); Total Cells Counted 100
[2024-07-31] MEDS: AZITHROMYCIN 250 MG TABLET 500 MG PO (16:49)
[2024-07-31 17:46] LABS: Add Urine Microscopic? YES; Appearance Urine Clear (Clear); Bacteria Urine None Seen /hpf; Bilirubin Urine Negative (Negative); Blood Urine 1+ (Negative); Color Urine Dark Yellow (Yellow); Glucose Urine UA Negative (Negative); Ketones Urine Negative (Negative); Leukocyte Esterase Ur Negative LEU/UL (Negative); Nitrate Urine Negative (Negative); Protein Urine 2+ mg/dL (Negative); RBC Urine 0-2 /hpf (0-2); Specific Grav Ur 1.013 (1.001-1.035); Squamous Epithelial Cell Urine None Seen /hpf (Few); Urobilinogen Urine 0.2 mg/dL (<2.0); WBC Urine 0-5 /hpf (0-3)
[2024-07-31 17:53] LABS: Sodium Urine Random 74 meq/L; Total Protein Urine Random 84 mg/dL; Urea Random Urine 502 MG/DL
[2024-07-31 18:14] LABS: Eosinophil Urine None Seen % (None Seen); Urine Eos QC 2nd Tech Confirmed
[2024-07-31 18:22] LABS: Creatinine Urine 64.8 mg/dL; Total Protein Urine Random 84 mg/dL
[2024-07-31] MEDS: ARFORMOTEROL 15 MCG/2 ML 15 EACH INHALATION (21:15)
[2024-07-31] MEDS: ROFLUMILAST 500 MCG TABLET PO (21:23)
[2024-07-31] MEDS: DOXAZOSIN MESYLATE 4 MG TABLET 8 MG PO (21:23)
[2024-08-01] VITALS (14 sets, daily range): BP systolic 137–152; BP diastolic 64–75; PULSE 78–112; RESP 18–24; TEMP 36.4–36.8; O2SAT 97–100
[2024-08-01] MEDS: CEFEPIME 1 GM/NS 50 ML 1 GM/50 ML BAG IVPB ×2 (06:14→16:51)
[2024-08-01] MEDS: CENTRAL LINE FLUSH 10 ML IV PUSH ×3 (06:14→21:10)
[2024-08-01 06:46] LABS: Hematocrit 23.4 % (42.0-52.0); Hemoglobin 7.6 g/dL (14.0-18.0); Immature Platelet Fraction Pct 3.3 % (0.9-11.2); Mean Corpuscular HGB Conc 32.5 g/dl (32-36); Mean Corpuscular Hemoglobin 29.3 pg (26-34); Mean Corpuscular Volume 90.3 fl (80-100); Mean Platelet Volume 9.8 fl (7.4-10.4); Platelet Count Result 40 k/mm3 (150-375); Red Blood Count 2.59 M/mm3 (4.6-6.20); Red Cell Distribution Width 16.4 % (11.5-14.5)
[2024-08-01 06:54] LABS: Creatine Kinase < 20 U/L (55-170)
[2024-08-01 06:55] LABS: Alanine Aminotransferase 18 U/L (6-50); Albumin Level 2.7 g/dL (3.5-5.1); Alkaline Phosphatase 87 U/L (38-126); Anion Gap 12 mmol/L (4-12); Aspartate Amino Transferase 15 U/L (17-59); Bilirubin,Total 2.6 mg/dL (0.2-1.3); Blood Urea Nitrogen 36 mg/dL (9-20); Carbon Dioxide 16 mmol/L (22-30); Chloride 116 mmol/L (98-107); Estimated CRCL calculation 24 ml/min; Estimated Glomerular Filt Rate 32; Glucose 96 mg/dL (65-110); Phosphorus 4.1 mg/dL (2.5-4.5); Potassium 2.9 mmol/L (3.4-5.0); Sodium 144 mmol/L (137-145)
[2024-08-01 07:14] LABS: Band Neutrophils Percent 11 % (0-6); Lymphocytes Absolute Manual 0.36 K/mm3 (1.1-4.5); Metamyelocytes Percent 4 %; Monocytes Absolute Manual 1.08 K/mm3 (0.1-0.90); Monocytes Percent Manual 12 % (3-9); Neutrophils Percent Manual 69 % (46-73); Total Cells Counted 100
[2024-08-01 07:15] LABS: Platelet Estimate Decreased (Adequate)
[2024-08-01 07:16] LABS: Burr Cells 1+; Ovalocytes 1+; Schistocytes None Seen
[2024-08-01] MEDS: allopurinoL 300 MG TABLET PO (08:10)
[2024-08-01] MEDS: MONTELUKAST SODIUM 10 MG TABLET PO (08:10)
[2024-08-01] MEDS: CYANOCOBALAMIN 1,000 MCG TABLET 1000 MCG PO (08:10)
[2024-08-01] MEDS: METOPROLOL TARTRATE 25 MG TABLET PO ×2 (08:10→21:08)
[2024-08-01] MEDS: LORATADINE 10 MG TABLET PO (08:10)
[2024-08-01] MEDS: ASPIRIN 81 MG CHEWABLE TABLET PO (08:10)
[2024-08-01] MEDS: SODIUM BICARBONATE TAB 650 MG TABLET 1300 MG PO ×2 (08:10→16:51)
[2024-08-01] MEDS: FOLIC ACID 1 MG TABLET PO (08:10)
[2024-08-01] MEDS: ASCORBIC ACID 500 MG TABLET PO (08:10)
[2024-08-01] MEDS: guaiFENesin 12 HR 600 MG TABCR PO ×2 (08:10→21:08)
[2024-08-01] MEDS: PANTOPRAZOLE 40 MG TABLET PO ×2 (08:10→21:08)
[2024-08-01] MEDS: FERROUS SULFATE 325 MG TABLET DR 650 MG BY MOUTH (08:10)
[2024-08-01] MEDS: IPRATROPIUM 0.5 MG/ALBUTEROL SULFATE 2.5 MG AMPUL.NEB 3 ML INHALATION ×3 (09:12→20:18)
[2024-08-01] MEDS: REVEFENACIN 175 MCG/3 ML 175 EACH INHALATION (09:12)
--- NOTE | 2024-08-01 09:21 | P.PNIM_ITS ---
Progress Note: A&P Assessment and Plan (1) Sepsis: Qualifiers: Sepsis acute organ dysfunction status: without acute organ dysfunction Sepsis type: sepsis due to unspecified organism Qualified Code(s): A41.9 - S epsis, unspecified organism Code(s): A41.9 - Sepsis, unspecified organism Status: Acute (2) HTN (hypertension): Qualifiers: Hypertension type: unspecified Qualified Code(s): I10 - Essential (primary) hypertension Code(s): I10 - Essential (primary) hypertension Status: Chronic (3) Small cell lung cancer: Onset Date: 02/2024 Qualifiers: Laterality: right Lung location: unspecified part of lung Qualified Code(s): C34.91 - Malignant neoplasm of unspecified part of right bronchus or lung Code(s): C34.90 - Malignant neoplasm of unspecified part of unspecified bronchus or lung Status: Chronic (4) Pancytopenia due to antineoplastic chemotherapy: Code(s): D61.810 - Antineoplastic chemotherapy induced pancytopenia; T45.1X5A - Adverse effect of antineoplastic and immunosuppressive drugs, initial encounter Status: Acute Plan (1) Sepsis: Qualifiers: Sepsis acute organ dysfunction status: without acute organ dysfunction Sepsis type: sepsis due to unspecified organism Qualified Code(s): A41.9 - Sepsis, unspecified organism Code(s): A41.9 - Sepsis, unspecified organism Status: Acute Assessment and Plan: - meets SIRS criteria: HR, RR. WBC 1.0. No current hypoxia or hypotension. - lactic acid and procalcitonin ordered - 30 mL/kg = 2.5L, start with 2L bolus and assess toleration. - suspected source: Pneumonia - started on cefepime, azithromycin, vancomycin - blood cultures drawn on 07/27, follow - monitor hemodynamic stability Blood pressure still soft Started normal saline IV 150 mL/hour on July 28 Blood pressure became stable, decreased to normal saline 100 mL/hour on Jul 29 BP stable dc NS 07/30 Sepsis resolved Pneumonia: Qualifiers: Laterality: bilateral Lung location: unspecified part of lung Pneumonia type: due to unspecified organism Qualified Code(s): J18.9 - Pneumonia, unspecified organism Code(s): J18.9 - Pneumonia, unspecified organism Status: Acute Assessment and Plan: CXR: Multifocal left-sided consolidation, consistent with pneumonia. Patient is immunocompromised, pancytopenia due to chemo, lung cancer Patient is on Vancomycin, cefepime, azithromycin - MRSA PCR, viral PCR, sputum culture is positive for of Pseudomonas ct chest 07/29 : Emphysema with extensive new consolidation the bilateral upper lobes consistent with pneumonia. MRSA negative, discontinue vancomycin, continue azithromycin, continue cefepime IV till 08/03 per ID pharmacist Chronic resp failure baseline O2 requirement: 3L NC Monitor pulse ox Continue O2 therapy Pancytopenia Upon arrival WBC 1.0, HGB 6.0, platelet count 18 Possible due to chemo and radiation therapy transfuse 2 units of PRBC and 2 units of [place] Follow stool guaiac, ferritin 16,800 , haptoglobin 292 reticulocyte 2.5% oncology consulted,continue Procrit [id number] units on a biweekly basis for anemia Small cell lung cancer: Onset Date: 02/2024 Qualifiers: Laterality: right Lung location: unspecified part of lung Qualified Code(s): C34.91 - Malignant neoplasm of unspecified part of right bronchus or lung Code(s): C34.90 - Malignant neoplasm of unspecified part of unspecified bronchus or lung Status: Chronic Assessment and Plan: Lung cancer, underwent chemo and radiation. Last chemotherapy was on 06/18/24 and last radiation treatment on 05/04/24. oncology consulted, per oncologist, patient has already completed therapy treatment in April and chemotherapy cycle 4. On July 18. CT scan finding discussed with the patient that showed no evidence of relapse of malignancy. Oncologist we will follow-up in the office for further surveillance. PRISCILLA on CKD creatinine 2.7 and GFR 28, previously 1.6 and GFR 52 on 07/16/2024 Likely resulting from sepsis Received IV fluids: 2L bolus - monitor I&Os Renal function is not improving, Cr stable Received normal saline ct showed: Bilateral nonobstructing nephrolithiasis. Consult [place] [place] [facility] for evaluation treatment Hypokalemia Potassium 2.9 on 08/01 Replete potassium chloride 40 mEq IV once and 40 mEq b.i.d. p.o. HTN (hypertension): Qualifiers: Hypertension type: unspecified Qualified Code(s): I10 - Essential (primary) hypertension Code(s): I10 - Essential (primary) hypertension Status: Chronic Assessent and Plan: Stable now Continue metoprolol p.o. (7) Obstructive sleep apnea: Code(s): G47.33 - Obstructive sleep apnea (adult) (pediatric) Status: Acute Assessment and Plan: - does not use CPAP Plan Diet: Heart healthy GI Prophylaxis: Not currently indicated DVT Prophylaxis: SCDs Lines: peripheral Code Status: DNR Subjective Date/time seen: 08/01/24 09:21 Interval history: Patient is afebrile overnight, patient continue to improve. Patient still has cough, patient feels tired, poor appetite, patient is afebrile overnight, patient denies chest pain, headache, focal weakness, dysuria. Exam Narrative: GENERAL: Pleasant, in no acute distress. Well-nourished. - EYES: EOMI. Anicteric. - HENT: Moist mucous membranes. - LUNGS: Coarse breath sound bilaterall y, no wheezing, rhonchi, or rales. - CARDIOVASCULAR: Regular rate and rhyth m. No murmur. No JVD. - ABDOMEN: Soft, non-tender and non-dist ended. No palpable masses. - EXTREMITIES: No edema. Peripheral puls es 2+. Non-tender. - NEUROLOGIC: No focal neurological defi cits. CN II-XII grossly intact. - PSYCHIATRIC: Awake, Alert and oriented x 3. Appropriate mood and affect. - SKIN: No rashes or lesions. Warm. - LYMPH: No cervical lymphadenopathy. Objective Data Vital Signs Vital Signs: Vital Signs - 24 hr 07/31/24 09:30 07/31/24 14:37 07/31/24 14:41 Temperature Pulse Rate 116 H 94 Respiratory Rate 18 Blood Pressure Pulse Oximetry 92 Oxygen Delivery Nasal Cannula Oxygen Flow Rate 3 07/31/24 14:57 07/31/24 20:00 07/31/24 21:18 Temperature 97.3 F L Pulse Rate 100 Respiratory Rate 19 Blood Pressure 140/69 Pulse Oximetry 100 98 95 Oxygen Delivery Nasal Cannula Nasal Cannula Oxygen Flow Rate 3 3 07/31/24 21:18 07/31/24 21:23 07/31/24 22:00 Temperature 98.5 F Pulse Rate 99 93 105 H Respiratory Rate 18 18 Blood Pressure 150/86 H Pulse Oximetry 98 Oxygen Delivery Oxygen Flow Rate 08/01/24 06:00 08/01/24 08:10 08/01/24 09:14 Temperature 97.6 F Pulse Rate 78 102 H Respiratory Rate 18 Blood Pressure 140/72 Pulse Oximetry 98 97 Oxygen Delivery Nasal Cannula Oxygen Flow Rate 3 08/01/24 09:14 Temperature Pulse Rate 106 H Respiratory Rate 20 Blood Pressure Pulse Oximetry Oxygen Delivery Oxygen Flow Rate Intake/Output Intake/Output: Intake & Output 07/29/24 07/30/24 07/31/24 08/01/24 23:59 23:59 23:59 23:59 Intake Total 3550.0 2830 2030 50 Output Total 1945 3225 4550 1775 Balance 1605.0 -060 -8743 -1725 Meds/Results Medications: Active Medications Generic Name Dose Route Start Last Admin Trade Name Freq PRN Reason Stop Dose Admin Acetaminophen 650 mg 07/27/24 14:41 07/27/24 23:55 Acetaminophen 325 Mg Tablet PO 650 mg Q4H PRN Administration Mild Pain (1-3) or Fever Hydrocodone Bitart/Acetaminophen 1 tab 07/27/24 14:41 Hydrocodone/Acetaminophen (*Crx) 5-325 Mg Tablet PO Q4H PRN Pain Rated 4-6 Albuterol 1 - 2 puff 07/27/24 23:05 Albuterol Sulfate (*Sp) Aerosol 1 Puff INHALATION Q4-6H PRN sob/wheezing Albuterol/Ipratropium 3 ml 07/27/24 20:00 08/01/24 09:12 Ipratropium 0.5 Mg/Albuterol Sulfate 2.5 Mg Ampul.Neb 3 Ml INHALATION 3 ml Q6HRT [facility] Administration Allopurinol 300 mg 07/28/24 09:00 08/01/24 08:10 Allopurinol 300 Mg Tablet PO 300 mg DAILY [facility] Administration Ascorbic Acid 500 mg 07/28/24 09:00 08/01/24 08:10 Ascorbic Acid 500 Mg Tablet PO 500 mg QAM [facility] Administration Aspirin 81 mg 07/28/24 09:00 08/01/24 08:10 Aspirin 81 Mg Chewable Tablet PO 81 mg DAILY [facility] Administration Baclofen 10 mg 07/27/24 23:01 Baclofen 10 Mg Tablet PO TID PRN Hiccups Benzonatate 100 mg 07/27/24 16:31 Benzonatate 100 Mg Capsule PO TID PRN Cough Budesonide 0.25 mg 07/28/24 08:00 07/31/24 21:14 Budesonide Respule Neb 0.5 Mg/2 Ml Amp INHALATION 0.25 mg Q12HRT [facility] Administration Cyanocobalamin 1,000 mcg 07/28/24 09:00 08/01/24 08:10 Cyanocobalamin 1,000 Mcg Tablet PO 1,000 mcg QAM [facility] Administration Doxazosin Mesylate 8 mg 07/28/24 21:00 07/31/24 21:23 Doxazosin Mesylate 4 Mg Tablet PO 8 mg HS [facility] Administration Ergocalciferol 50,000 units 08/02/24 09:00 Ergocalciferol 50,000 Units Capsule PO WEEKLY [facility] Ferrous Sulfate 650 mg 07/28/24 09:00 08/01/24 08:10 Ferrous Sulfate [address] BY MOUTH 650 mg DAILY [facility] Administration Fluticasone Propionate 1 spray 07/27/24 23:01 Fluticasone Propionate 0.05% Na Spr 16 Gm Btl (*Bkc) NASAL DAILY PRN Congestion Folic Acid 1 mg 07/28/24 09:00 08/01/24 08:10 Folic Acid 1 Mg Tablet PO 1 mg QAM [facility] Administration Guaifenesin 600 mg 07/27/24 21:00 08/01/24 08:10 Guaifenesin 12 Hr 600 Mg Tabcr PO 600 mg Q12HR [facility] Administration Heparin Sodium (Beef Lung) 50 units 07/29/24 09:00 08/01/24 08:09 Heparin Flush 50 Units/5 Ml Syringe IV PUSH 50 units QAM [facility] Administration Heparin Sodium (Beef Lung) 50 units 07/28/24 10:11 Heparin Flush 50 Units/5 Ml Syringe IV PUSH PRN PRN after intermittent infusion Heparin Sodium (Beef Lung) 50 units 07/28/24 10:11 08/01/24 06:15 Heparin Flush 50 Units/5 Ml Syringe IV PUSH 50 units PRN PRN Administration after blood draws Heparin Sodium (Porcine) 500 units 07/28/24 10:11 Heparin Sodium Lock Flush 500 Units/5 Ml Syringe IV PUSH PRN PRN see comments below Cefepime HCl 1 gm in 50 mls @ 100 mls/hr 07/27/24 18:00 08/01/24 06:44 Maxipime 1 Gm/Ns 50 Ml IVPB 08/03/24 06:29 Infused Q12H [facility] Infusion Loratadine 10 mg 07/28/24 09:00 08/01/24 08:10 Loratadine 10 Mg Tablet PO 10 mg QAM [facility] Administration Methocarbamol 500 mg 07/27/24 23:01 Methocarbamol 500 Mg Tablet PO PRN PRN back spasms Metoprolol Tartrate 25 mg 07/29/24 09:25 08/01/24 08:10 Metoprolol Tartrate 25 Mg Tablet PO 25 mg Q12HR [facility] Administration Montelukast Sodium 10 mg 07/27/24 09:00 08/01/24 08:10 Montelukast Sodium 10 Mg Tablet PO 10 mg DAILY [facility] Administration * Home Med * 15 mcg 07/29/24 12:00 07/31/24 21:15 Arformoterol 15 Mcg/ INHALATION 08/28/24 11:59 15 mcg 2 Ml Solution For Q12HRT [facility] Administration Nebulization * Home Med * 175 mcg 07/29/24 12:05 08/01/24 09:12 Revefenacin [Yupelri INHALATION 08/28/24 12:04 175 mcg ] 175 Mcg/3 Ml DAILYRT [facility] Administration Solution For Nebulization Ondansetron HCl 4 mg 07/27/24 14:41 Ondansetron Inj 4 Mg/2 Ml Vial IV PUSH Q4H PRN Nausea Pantoprazole Sodium 40 mg 07/28/24 09:00 08/01/24 08:10 Pantoprazole 40 Mg Tablet PO 40 mg Q12HR [facility] Administration Roflumilast 500 mcg 07/28/24 21:00 07/31/24 21:23 Roflumilast 500 Mcg Tablet PO 500 mcg HS [facility] Administration Sodium Bicarbonate 1,300 mg 07/31/24 09:00 08/01/24 08:10 Sodium Bicarbonate Tab 650 Mg Tablet PO 1,300 mg BID [facility] Administration Sodium Chloride 10 ml 07/28/24 14:00 08/01/24 06:14 Central Line Flush IV PUSH 10 ml Q8HR [facility] Administration Radiology Results: ITS Impressions Chest X-Ray 07/27/24 15:37 Impression: 1: Multifocal left-sided consolidation, consistent with pneumonia. Chest/Abdomen/Pelvis CT 07/29/24 16:54 IMPRESSION: 1. Emphysema with extensive new consolidation the bilateral upper lobes consistent with pneumonia. 2. Intra and extra hepatic ductal or ductal dilation and pneumobilia with unchanged. Unchanged biliary stent in expected position. 3. Bilateral nonobstructing nephrolithiasis. 4. Prostatomegaly. Renal Ultrasound 07/31/24 14:28 IMPRESSION: 1. Polycystic kidney disease. Labs Labs: Laboratory Results - last 24 hr 07/30/24 07/31/24 07/31/24 06:02 17:36 17:36 WBC RBC Hgb Hct MCV MCH MCHC RDW Plt Count MPV Immature Gran % (Auto) Neut % (Auto) Lymph % (Auto) [place] % (Auto) Eos % (Auto) Baso % (Auto) Lymph # (Auto) [place] # (Auto) Eos # (Auto) Baso # (Auto) Abs Immat Gran (auto) Absolute Neuts (auto) Absolute Nucleated RBC Total Counted 100 Neutrophils % (Manual) 82 H Band Neutrophils % 9 H Lymphocytes % (Manual) 6 L Monocytes % (Manual) 3 Metamyelocytes % Nucleated RBC % Abs Neuts (Manual) 7.28 H Abs Lymphs (Manual) 0.48 L Abs Monocytes (Manual) 0.24 Platelet Estimate % Immature Plt Fraction Ovalocytes Christopher Cells Schistocytes Sodium Potassium Chloride Carbon Dioxide Anion Gap BUN Creatinine Estim Creat Clear Calc Estimated GFR Glucose Calcium Phosphorus Magnesium Total Bilirubin AST ALT Alkaline Phosphatase Total Creatine Kinase Total Protein Albumin Urine Color Dark yellow Urine Appearance Clear Urine pH 5.0 Ur Specific [place] 1.013 Urine Protein 2+ H Urine Glucose (UA) Negative Urine Ketones Negative Ur Blood (Man) 1+ H Urine Nitrate Negative Urine Bilirubin Negative Urine Urobilinogen 0.2 Leukocyte Esterase Rfl Negative Urine RBC 0-2 Urine WBC 0-5 Ur Squamous Epith Cells None seen Urine Bacteria None seen Urine Casts 3-5 Urine Eosinophils None seen U Random Total Protein 84 84 Ur Random Sodium 74 Ur Random Urea 502 Urine Creatinine 65.0 Protein/Creat Ratio 2 07/31/24 08/01/24 17:36 06:34 WBC 9.0 RBC 2.59 L Hgb 7.6 L Hct 23.4 L MCV 90.3 MCH 29.3 MCHC 32.5 RDW 16.4 H Plt Count 40 L MPV 9.8 Immature Gran % (Auto) Not Reportable Neut % (Auto) Not Reportable Lymph % (Auto) Not Reportable [place] % (Auto) Not Reportable Eos % (Auto) Not Reportable Baso % (Auto) Not Reportable Lymph # (Auto) Not Reportable [place] # (Auto) Not Reportable Eos # (Auto) Not Reportable Baso # (Auto) Not Reportable Abs Immat Gran (auto) Not Reportable Absolute Neuts (auto) Not Reportable Absolute Nucleated RBC Not Reportable Total Counted 100 Neutrophils % (Manual) 69 Band Neutrophils % 11 H Lymphocytes % (Manual) 4.0 L Monocytes % (Manual) 12 H Metamyelocytes % 4 Nucleated RBC % Not Reportable Abs Neuts (Manual) 7.20 H Abs Lymphs (Manual) 0.36 L Abs Monocytes (Manual) 1.08 H Platelet Estimate Decreased % Immature Plt Fraction 3.3 Ovalocytes 1+ [place] Cells 1+ Schistocytes None seen Sodium 144 Potassium 2.9 L Chloride 116 H Carbon Dioxide 16 L Anion Gap 12 BUN 36 H Creatinine 2.42 H Estim Creat Clear Calc 24 Estimated GFR 32 L Glucose 96 Calcium 9.0 Phosphorus 4.1 Magnesium 2.0 Total Bilirubin 2.6 H AST 15 L ALT 18 Alkaline Phosphatase 87 Total Creatine Kinase < 20 L Total Protein 6.0 L Albumin 2.7 L Urine Color Urine Appearance Urine pH Ur Specific [place] Urine Protein Urine Glucose (UA) Urine Ketones Ur Blood (Man) Urine Nitrate Urine Bilirubin Urine Urobilinogen Leukocyte Esterase Rfl Urine RBC Urine WBC Ur Squamous Epith Cells Urine Bacteria Urine Casts Urine Eosinophils U Random Total Protein Ur Random Sodium Ur Random Urea Urine Creatinine 64.8 Protein/Creat Ratio 2 1.30 H
[2024-08-01] MEDS: POTASSIUM CHLORIDE INJ 40 MEQ in SODIUM CHLORIDE 0.9% IV 500 ML 130 MEQ IVPB (09:50)
[2024-08-01] MEDS: BUDESONIDE RESPULE NEB 0.5 MG/2 ML AMP 0.25 MG INHALATION ×2 (10:21→20:18)
[2024-08-01] MEDS: ARFORMOTEROL 15 MCG/2 ML 15 EACH INHALATION (10:21)
--- NOTE | 2024-08-01 13:30 | PM.PNNEP ---
Subjective Date/time seen: 08/01/24 13:30 Objective Data Vital Signs Vital Signs: Vital Signs Temp Pulse Resp BP Pulse Ox O2 Del Method O2 Flow Rate 08/01/24 13:26 90 20 08/01/24 10:31 92 22 H 08/01/24 10:23 80 20 08/01/24 09:34 100 20 08/01/24 09:14 106 H 20 08/01/24 09:14 97 Nasal Cannula 3 08/01/24 08:10 102 H 08/01/24 08:00 97 Nasal Cannula 3 08/01/24 06:00 97.6 F 78 18 140/72 98 07/31/24 22:00 98.5 F 105 H 18 150/86 H 98 07/31/24 21:23 93 07/31/24 21:18 99 18 07/31/24 21:18 95 Nasal Cannula 3 07/31/24 20:00 98 Nasal Cannula 3 Intake/Output Intake/Output: Intake & Output 07/29/24 07/30/24 07/31/24 08/01/24 23:59 23:59 23:59 23:59 Intake Total 3550.0 2830 2030 1260 Output Total 1945 3225 4550 2875 Balance 1605.0 -395 -2520 -1615 Meds/Results Medications: Active Medications Generic Name Dose Route Start Last Admin Trade Name Freq PRN Reason Stop Dose Admin Acetaminophen 650 mg 07/27/24 14:41 07/27/24 23:55 Acetaminophen 325 Mg Tablet PO 650 mg Q4H PRN Administration Mild Pain (1-3) or Fever Hydrocodone Bitart/Acetaminophen 1 tab 07/27/24 14:41 Hydrocodone/Acetaminophen (*Crx) 5-325 Mg Tablet PO Q4H PRN Pain Rated 4-6 Albuterol 1 - 2 puff 07/27/24 23:05 Albuterol Sulfate (*Sp) Aerosol 1 Puff INHALATION Q4-6H PRN sob/wheezing Albuterol/Ipratropium 3 ml 07/27/24 20:00 08/01/24 13:34 Ipratropium 0.5 Mg/Albuterol Sulfate 2.5 Mg Ampul.Neb 3 Ml INHALATION 3 ml Q6HRT [facility] Administration Allopurinol 300 mg 07/28/24 09:00 08/01/24 08:10 Allopurinol 300 Mg Tablet PO 300 mg DAILY [facility] Administration Ascorbic Acid 500 mg 07/28/24 09:00 08/01/24 08:10 Ascorbic Acid 500 Mg Tablet PO 500 mg QAM [facility] Administration Aspirin 81 mg 07/28/24 09:00 08/01/24 08:10 Aspirin 81 Mg Chewable Tablet PO 81 mg DAILY [facility] Administration Baclofen 10 mg 07/27/24 23:01 Baclofen 10 Mg Tablet PO TID PRN Hiccups Benzonatate 100 mg 07/27/24 16:31 Benzonatate 100 Mg Capsule PO TID PRN Cough Budesonide 0.25 mg 07/28/24 08:00 08/01/24 10:21 Budesonide Respule Neb 0.5 Mg/2 Ml Amp INHALATION 0.25 mg Q12HRT [facility] Administration Cyanocobalamin 1,000 mcg 07/28/24 09:00 08/01/24 08:10 Cyanocobalamin 1,000 Mcg Tablet PO 1,000 mcg QAM [facility] Administration Doxazosin Mesylate 8 mg 07/28/24 21:00 07/31/24 21:23 Doxazosin Mesylate 4 Mg Tablet PO 8 mg HS [facility] Administration Ergocalciferol 50,000 units 08/02/24 09:00 Ergocalciferol 50,000 Units Capsule PO WEEKLY [facility] Ferrous Sulfate 650 mg 07/28/24 09:00 08/01/24 08:10 Ferrous Sulfate [address] BY MOUTH 650 mg DAILY [facility] Administration Fluticasone Propionate 1 spray 07/27/24 23:01 Fluticasone Propionate 0.05% Na Spr 16 Gm Btl (*Bkc) NASAL DAILY PRN Congestion Folic Acid 1 mg 07/28/24 09:00 08/01/24 08:10 Folic Acid 1 Mg Tablet PO 1 mg QAM [facility] Administration Guaifenesin 600 mg 07/27/24 21:00 08/01/24 08:10 Guaifenesin 12 Hr 600 Mg Tabcr PO 600 mg Q12HR [facility] Administration Heparin Sodium (Beef Lung) 50 units 07/29/24 09:00 08/01/24 08:09 Heparin Flush 50 Units/5 Ml Syringe IV PUSH 50 units QAM [facility] Administration Heparin Sodium (Beef Lung) 50 units 07/28/24 10:11 08/01/24 13:58 Heparin Flush 50 Units/5 Ml Syringe IV PUSH 50 units PRN PRN Administration after intermittent infusion Heparin Sodium (Beef Lung) 50 units 07/28/24 10:11 08/01/24 06:15 Heparin Flush 50 Units/5 Ml Syringe IV PUSH 50 units PRN PRN Administration after blood draws Heparin Sodium (Porcine) 500 units 07/28/24 10:11 Heparin Sodium Lock Flush 500 Units/5 Ml Syringe IV PUSH PRN PRN see comments below Cefepime HCl 1 gm in 50 mls @ 100 mls/hr 07/27/24 18:00 08/01/24 17:21 Maxipime 1 Gm/Ns 50 Ml IVPB 08/03/24 06:29 Infused Q12H [facility] Infusion Loratadine 10 mg 07/28/24 09:00 08/01/24 08:10 Loratadine 10 Mg Tablet PO 10 mg QAM [facility] Administration Methocarbamol 500 mg 07/27/24 23:01 Methocarbamol 500 Mg Tablet PO PRN PRN back spasms Metoprolol Tartrate 25 mg 07/29/24 09:25 08/01/24 08:10 Metoprolol Tartrate 25 Mg Tablet PO 25 mg Q12HR [facility] Administration Montelukast Sodium 10 mg 07/27/24 09:00 08/01/24 08:10 Montelukast Sodium 10 Mg Tablet PO 10 mg DAILY [facility] Administration * Home Med * 15 mcg 07/29/24 12:00 08/01/24 10:21 Arformoterol 15 Mcg/ INHALATION 08/28/24 11:59 15 mcg 2 Ml Solution For Q12HRT [facility] Administration Nebulization * Home Med * 175 mcg 07/29/24 12:05 08/01/24 09:12 Revefenacin [Yupelri INHALATION 08/28/24 12:04 175 mcg ] 175 Mcg/3 Ml DAILYRT [facility] Administration Solution For Nebulization Ondansetron HCl 4 mg 07/27/24 14:41 Ondansetron Inj 4 Mg/2 Ml Vial IV PUSH Q4H PRN Nausea Pantoprazole Sodium 40 mg 07/28/24 09:00 08/01/24 08:10 Pantoprazole 40 Mg Tablet PO 40 mg Q12HR [facility] Administration Potassium Chloride 40 meq 08/01/24 17:00 08/01/24 16:51 Potassium Chloride 20 Meq Packet (For Liquid) PO 40 meq BID [facility] Administration Roflumilast 500 mcg 07/28/24 21:00 07/31/24 21:23 Roflumilast 500 Mcg Tablet PO 500 mcg HS [facility] Administration Sodium Bicarbonate 1,300 mg 07/31/24 09:00 08/01/24 16:51 Sodium Bicarbonate Tab 650 Mg Tablet PO 1,300 mg BID [facility] Administration Sodium Chloride 10 ml 07/28/24 14:00 08/01/24 13:57 Central Line Flush IV PUSH 10 ml Q8HR [facility] Administration Sodium Chloride 1 spray 08/01/24 13:21 Saline 0.65% Emery Soln 44 Ml Btl NASAL Q6HR PRN Congestion Sodium Chloride 1 applic 08/01/24 21:00 Sodium Chloride Nasal Gel 14.1 Gm NASAL HS [facility] Radiology Results: ITS Impressions Chest X-Ray 07/27/24 15:37 Impression: 1: Multifocal left-sided consolidation, consistent with pneumonia. Chest/Abdomen/Pelvis CT 07/29/24 16:54 IMPRESSION: 1. Emphysema with extensive new consolidation the bilateral upper lobes consistent with pneumonia. 2. Intra and extra hepatic ductal or ductal dilation and pneumobilia with unchanged. Unchanged biliary stent in expected position. 3. Bilateral nonobstructing nephrolithiasis. 4. Prostatomegaly. Renal Ultrasound 07/31/24 14:28 IMPRESSION: 1. Polycystic kidney disease. Labs Labs: Laboratory Tests 08/01/24 06:34 08/01/24 06:34 \ Calcium 9.0 Phosphorus 4.1 Magnesium 2.0 Total Bilirubin 2.6 H AST 15 L ALT 18 Alkaline Phosphatase 87 Total Creatine Kinase < 20 L Total Protein 6.0 L Albumin 2.7 L
[2024-08-01] MEDS: POTASSIUM CHLORIDE 20 MEQ PACKET (FOR LIQUID) 40 MEQ PO (16:51)
[2024-08-01] MEDS: DOXAZOSIN MESYLATE 4 MG TABLET 8 MG PO (21:08)
[2024-08-01] MEDS: SODIUM CHLORIDE NASAL GEL 14.1 GM 1 APPLIC NASAL (21:10)
[2024-08-01] MEDS: ROFLUMILAST 500 MCG TABLET PO (21:10)
[2024-08-02] VITALS (14 sets, daily range): BP systolic 137–153; BP diastolic 70–83; PULSE 91–117; RESP 18–24; TEMP 36.9–37.7; O2SAT 94–100
[2024-08-02] MEDS: IPRATROPIUM 0.5 MG/ALBUTEROL SULFATE 2.5 MG AMPUL.NEB 3 ML INHALATION ×4 (03:25→21:26)
[2024-08-02] MEDS: CEFEPIME 1 GM/NS 50 ML 1 GM/50 ML BAG IVPB ×2 (05:36→17:05)
[2024-08-02] MEDS: CENTRAL LINE FLUSH 10 ML IV PUSH ×3 (05:37→21:03)
[2024-08-02 05:54] LABS: Hematocrit 22.6 % (42.0-52.0); Hemoglobin 7.4 g/dL (14.0-18.0); Mean Corpuscular HGB Conc 32.7 g/dl (32-36); Mean Corpuscular Hemoglobin 29.5 pg (26-34); Platelet Count Result 47 k/mm3 (150-375); Red Blood Count 2.51 M/mm3 (4.6-6.20); Red Cell Distribution Width 16.6 % (11.5-14.5); White Blood Count 9.4 K/mm3 (4.5-10.0)
[2024-08-02 06:02] LABS: Alanine Aminotransferase 18 U/L (6-50); Albumin Level 2.6 g/dL (3.5-5.1); Alkaline Phosphatase 85 U/L (38-126); Anion Gap 12 mmol/L (4-12); Aspartate Amino Transferase 16 U/L (17-59); Bilirubin,Total 2.1 mg/dL (0.2-1.3); Blood Urea Nitrogen 32 mg/dL (9-20); Calcium 8.9 mg/dL (8.4-10.2); Carbon Dioxide 16 mmol/L (22-30); Chloride 115 mmol/L (98-107); Estimated CRCL calculation 26 ml/min; Estimated Glomerular Filt Rate 29; Glucose 94 mg/dL (65-110); Magnesium 1.6 mg/dL (1.6-2.3); Phosphorus 3.5 mg/dL (2.5-4.5); Sodium 143 mmol/L (137-145)
[2024-08-02 07:14] LABS: Band Neutrophils Percent 13 % (0-6); Eosinophils Absolute Manual 0.09 K/mm3 (0.02-0.50); Eosinophils Percent Manual 1 % (0-4); Lymphocytes Absolute Manual 0.47 K/mm3 (1.1-4.5); Lymphocytes Percent Manual 5 % (18-44); Monocytes Absolute Manual 0.56 K/mm3 (0.1-0.90); Monocytes Percent Manual 6 % (3-9); Neutrophils Absolute Manual 8.27 K/mm3 (1.3-6.7); Neutrophils Percent Manual 75 % (46-73); Total Cells Counted 100
[2024-08-02 07:15] LABS: Anisocytosis 2+; Hypochromasia 1+; Ovalocytes 2+; Platelet Estimate Decreased (Adequate); Schistocytes None Seen
[2024-08-02] MEDS: BUDESONIDE RESPULE NEB 0.5 MG/2 ML AMP 0.25 MG INHALATION ×2 (07:52→21:26)
[2024-08-02] MEDS: SODIUM BICARBONATE TAB 650 MG TABLET 1300 MG PO ×2 (08:26→17:05)
[2024-08-02] MEDS: LORATADINE 10 MG TABLET PO (08:26)
[2024-08-02] MEDS: ASPIRIN 81 MG CHEWABLE TABLET PO (08:26)
[2024-08-02] MEDS: ASCORBIC ACID 500 MG TABLET PO (08:26)
[2024-08-02] MEDS: FERROUS SULFATE 325 MG TABLET DR 650 MG BY MOUTH (08:26)
[2024-08-02] MEDS: CYANOCOBALAMIN 1,000 MCG TABLET 1000 MCG PO (08:26)
[2024-08-02] MEDS: PANTOPRAZOLE 40 MG TABLET PO ×2 (08:26→21:00)
[2024-08-02] MEDS: FOLIC ACID 1 MG TABLET PO (08:26)
[2024-08-02] MEDS: guaiFENesin 12 HR 600 MG TABCR PO ×2 (08:26→21:00)
[2024-08-02] MEDS: METOPROLOL TARTRATE 25 MG TABLET PO ×2 (08:26→21:00)
[2024-08-02] MEDS: allopurinoL 300 MG TABLET PO (08:26)
[2024-08-02] MEDS: MONTELUKAST SODIUM 10 MG TABLET PO (08:27)
[2024-08-02] MEDS: ERGOCALCIFEROL 50,000 UNITS CAPSULE 50000 UNITS PO (08:27)
--- NOTE | 2024-08-02 09:01 | P.PNIM_ITS ---
Progress Note: A&P Assessment and Plan (1) Sepsis: Qualifiers: Sepsis acute organ dysfunction status: without acute organ dysfunction Sepsis type: sepsis due to unspecified organism Qualified Code(s): A41.9 - S epsis, unspecified organism Code(s): A41.9 - Sepsis, unspecified organism Status: Acute (2) HTN (hypertension): Qualifiers: Hypertension type: unspecified Qualified Code(s): I10 - Essential (primary) hypertension Code(s): I10 - Essential (primary) hypertension Status: Chronic (3) Small cell lung cancer: Onset Date: 02/2024 Qualifiers: Laterality: right Lung location: unspecified part of lung Qualified Code(s): C34.91 - Malignant neoplasm of unspecified part of right bronchus or lung Code(s): C34.90 - Malignant neoplasm of unspecified part of unspecified bronchus or lung Status: Chronic (4) Pancytopenia due to antineoplastic chemotherapy: Code(s): D61.810 - Antineoplastic chemotherapy induced pancytopenia; T45.1X5A - Adverse effect of antineoplastic and immunosuppressive drugs, initial encounter Status: Acute Plan (1) Sepsis: Qualifiers: Sepsis acute organ dysfunction status: without acute organ dysfunction Sepsis type: sepsis due to unspecified organism Qualified Code(s): A41.9 - Sepsis, unspecified organism Code(s): A41.9 - Sepsis, unspecified organism Status: Acute Assessment and Plan: - meets SIRS criteria: HR, RR. WBC 1.0. No current hypoxia or hypotension. - lactic acid and procalcitonin ordered - 30 mL/kg = 2.5L, start with 2L bolus and assess toleration. - suspected source: Pneumonia - started on cefepime, azithromycin, vancomycin - blood cultures drawn on 07/27, follow - monitor hemodynamic stability Blood pressure still soft Started normal saline IV 150 mL/hour on July 28 Blood pressure became stable, decreased to normal saline 100 mL/hour on Jul 29 BP stable dc NS 07/30 Sepsis resolved Pneumonia: Qualifiers: Laterality: bilateral Lung location: unspecified part of lung Pneumonia type: due to unspecified organism Qualified Code(s): J18.9 - Pneumonia, unspecified organism Code(s): J18.9 - Pneumonia, unspecified organism Status: Acute Assessment and Plan: CXR: Multifocal left-sided consolidation, consistent with pneumonia. Patient is immunocompromised, pancytopenia due to chemo, lung cancer Patient is on Vancomycin, cefepime, azithromycin - MRSA PCR, viral PCR, sputum culture is positive for of Pseudomonas ct chest 07/29 : Emphysema with extensive new consolidation the bilateral upper lobes consistent with pneumonia. MRSA negative, discontinue vancomycin, continue azithromycin, continue cefepime IV till 08/03 per ID pharmacist Chronic resp failure baseline O2 requirement: 3L NC Monitor pulse ox Continue O2 therapy Pancytopenia Upon arrival WBC 1.0, HGB 6.0, platelet count 18 Possible due to chemo and radiation therapy transfuse 2 units of PRBC and 2 units of [place] Follow stool guaiac, ferritin 16,800 , haptoglobin 292 reticulocyte 2.5% oncology consulted,continue Procrit 56396 units on a biweekly basis for anemia Small cell lung cancer: Onset Date: 02/2024 Qualifiers: Laterality: right Lung location: unspecified part of lung Qualified Code(s): C34.91 - Malignant neoplasm of unspecified part of right bronchus or lung Code(s): C34.90 - Malignant neoplasm of unspecified part of unspecified bronchus or lung Status: Chronic Assessment and Plan: Lung cancer, underwent chemo and radiation. Last chemotherapy was on 06/18/24 and last radiation treatment on 05/04/24. oncology consulted, per oncologist, patient has already completed therapy treatment in April and chemotherapy cycle 4. On July 18. CT scan finding discussed with the patient that showed no evidence of relapse of malignancy. Oncologist we will follow-up in the office for further surveillance. PRISCILLA on CKD creatinine 2.7 and GFR 28, previously 1.6 and GFR 52 on 07/16/2024 Likely resulting from sepsis Received IV fluids: 2L bolus - monitor I&Os Renal function is not improving, Cr stable Received normal saline ct showed: Bilateral nonobstructing nephrolithiasis. Consult kettle loader for evaluation treatment Renal function continue to improve Hypokalemia Potassium 2.9 on 08/01 Replete potassium chloride 40 mEq IV once and 40 mEq b.i.d. p.o. HTN (hypertension): Qualifiers: Hypertension type: unspecified Qualified Code(s): I10 - Essential (primary) hypertension Code(s): I10 - Essential (primary) hypertension Status: Chronic Assessent and Plan: Stable now Continue metoprolol p.o. (7) Obstructive sleep apnea: Code(s): G47.33 - Obstructive sleep apnea (adult) (pediatric) Status: Acute Assessment and Plan: - does not use CPAP Plan Diet: Heart healthy GI Prophylaxis: Not currently indicated DVT Prophylaxis: SCDs Lines: peripheral Code Status: DNR Subjective Date/time seen: 08/02/24 09:01 Interval history: Patient is afebrile overnight, patient feels better today, no obvious shortness of breath at rest. Patient is afebrile overnight, patient denies chest pain, headache, focal weakness, dysuria. Labs reviewed, hemoglobin stable, platelet is still low, but is trending up, potassium 3.0, magnesium 1.6, will replete potassium chloride and magnesium sulfate. Creatinine is trending down 2.2 6 today Exam Narrative: GENERAL: Pleasant, in no acute distress. Well-nourished. - EYES: EOMI. Anicteric. - HENT: Moist mucous membranes. - LUNGS: Coarse breath sound bilaterall y, no wheezing, rhonchi, or rales. - CARDIOVASCULAR: Regular rate and rhyth m. No murmur. No JVD. - ABDOMEN: Soft, non-tender and non-dist ended. No palpable masses. - EXTREMITIES: No edema. Peripheral puls es 2+. Non-tender. - NEUROLOGIC: No focal neurological defi cits. CN II-XII grossly intact. - PSYCHIATRIC: Awake, Alert and oriented x 3. Appropriate mood and affect. - SKIN: No rashes or lesions. Warm. - LYMPH: No cervical lymphadenopathy. Objective Data Vital Signs Vital Signs: Vital Signs - 24 hr 08/01/24 09:14 08/01/24 09:14 08/01/24 09:34 Temperature Pulse Rate 106 H 100 Respiratory Rate 20 20 Blood Pressure Pulse Oximetry 97 Oxygen Delivery Nasal Cannula Oxygen Flow Rate 3 08/01/24 10:23 08/01/24 10:31 08/01/24 13:36 Temperature Pulse Rate 80 92 90 Respiratory Rate 20 22 H 20 Blood Pressure Pulse Oximetry Oxygen Delivery Oxygen Flow Rate 08/01/24 13:50 08/01/24 14:00 08/01/24 20:19 Temperature 98.3 F Pulse Rate 90 99 Respiratory Rate 20 18 Blood Pressure 137/64 Pulse Oximetry 100 98 Oxygen Delivery Nasal Cannula Oxygen Flow Rate 3 08/01/24 20:19 08/01/24 20:37 08/01/24 21:08 Temperature Pulse Rate 100 105 H 112 H Respiratory Rate 24 H 24 H Blood Pressure Pulse Oximetry Oxygen Delivery Oxygen Flow Rate 08/01/24 22:00 08/02/24 03:25 08/02/24 03:33 Temperature 97.7 F Pulse Rate 102 H 106 H 99 Respiratory Rate 18 24 H 24 H Blood Pressure 152/75 H Pulse Oximetry 100 Oxygen Delivery Oxygen Flow Rate 08/02/24 06:00 08/02/24 07:53 08/02/24 07:53 Temperature 98.4 F Pulse Rate 114 H 114 H Respiratory Rate 18 18 Blood Pressure 138/70 Pulse Oximetry 100 96 Oxygen Delivery Nasal Cannula Oxygen Flow Rate 3 08/02/24 08:13 Temperature Pulse Rate 117 H Respiratory Rate 18 Blood Pressure Pulse Oximetry Oxygen Delivery Oxygen Flow Rate Intake/Output Intake/Output: Intake & Output 07/30/24 07/31/24 08/01/24 08/02/24 23:59 23:59 23:59 23:59 Intake Total 2830 2030 1260 Output Total 3225 0920 2879 1450 [facility] -[id number] [phone] Meds/Results Medications: Active Medications Generic Name Dose Route Start Last Admin Trade Name Freq PRN Reason Stop Dose Admin Acetaminophen 650 mg 07/27/24 14:41 07/27/24 23:55 Acetaminophen 325 Mg Tablet PO 650 mg Q4H PRN Administration Mild Pain (1-3) or Fever Hydrocodone Bitart/Acetaminophen 1 tab 07/27/24 14:41 Hydrocodone/Acetaminophen (*Crx) 5-325 Mg Tablet PO Q4H PRN Pain Rated 4-6 Albuterol 1 - 2 puff 07/27/24 23:05 Albuterol Sulfate (*Sp) Aerosol 1 Puff INHALATION Q4-6H PRN sob/wheezing Albuterol/Ipratropium 3 ml 07/27/24 20:00 08/02/24 07:51 Ipratropium 0.5 Mg/Albuterol Sulfate 2.5 Mg Ampul.Neb 3 Ml INHALATION 3 ml Q6HRT BALWINDER Administration Allopurinol 300 mg 07/28/24 09:00 08/02/24 08:26 Allopurinol 300 Mg Tablet PO 300 mg DAILY [facility] Administration Ascorbic Acid 500 mg 07/28/24 09:00 08/02/24 08:26 Ascorbic Acid 500 Mg Tablet PO 500 mg QAM [facility] Administration Aspirin 81 mg 07/28/24 09:00 08/02/24 08:26 Aspirin 81 Mg Chewable Tablet PO 81 mg DAILY [facility] Administration Baclofen 10 mg 07/27/24 23:01 Baclofen 10 Mg Tablet PO TID PRN Hiccups Benzonatate 100 mg 07/27/24 16:31 Benzonatate 100 Mg Capsule PO TID PRN Cough Budesonide 0.25 mg 07/28/24 08:00 08/02/24 07:52 Budesonide Respule Neb 0.5 Mg/2 Ml Amp INHALATION 0.25 mg Q12HRT [facility] Administration Cyanocobalamin 1,000 mcg 07/28/24 09:00 08/02/24 08:26 Cyanocobalamin 1,000 Mcg Tablet PO 1,000 mcg QAM [facility] Administration Doxazosin Mesylate 8 mg 07/28/24 21:00 08/01/24 21:08 Doxazosin Mesylate 4 Mg Tablet PO 8 mg HS BALWINDER Administration Ergocalciferol 50,000 units 08/02/24 09:00 08/02/24 08:27 Ergocalciferol 50,000 Units Capsule PO 50,000 units WEEKLY [facility] Administration Ferrous Sulfate 650 mg 07/28/24 09:00 08/02/24 08:26 Ferrous Sulfate [address] BY MOUTH 650 mg DAILY [facility] Administration Fluticasone Propionate 1 spray 07/27/24 23:01 Fluticasone Propionate 0.05% Na Spr 16 Gm Btl (*Bkc) NASAL DAILY PRN Congestion Folic Acid 1 mg 07/28/24 09:00 08/02/24 08:26 Folic Acid 1 Mg Tablet PO 1 mg QAM [facility] Administration Guaifenesin 600 mg 07/27/24 21:00 08/02/24 08:26 Guaifenesin 12 Hr 600 Mg Tabcr PO 600 mg Q12HR [facility]WINDER Administration Heparin Sodium (Beef Lung) 50 units 07/29/24 09:00 08/02/24 08:27 Heparin Flush 50 Units/5 Ml Syringe IV PUSH 50 units QAM [facility] Administration Heparin Sodium (Beef Lung) 50 units 07/28/24 10:11 08/01/24 13:58 Heparin Flush 50 Units/5 Ml Syringe IV PUSH 50 units PRN PRN Administration after intermittent infusion Heparin Sodium (Beef Lung) 50 units 07/28/24 10:11 08/01/24 06:15 Heparin Flush 50 Units/5 Ml Syringe IV PUSH 50 units PRN PRN Administration after blood draws Heparin Sodium (Porcine) 500 units 07/28/24 10:11 Heparin Sodium Lock Flush 500 Units/5 Ml Syringe IV PUSH PRN PRN see comments below Cefepime HCl 1 gm in 50 mls @ 100 mls/hr 07/27/24 18:00 08/02/24 05:36 Maxipime 1 Gm/Ns 50 Ml IVPB 08/03/24 06:29 100 mls/hr Q12H [facility]ER Administration Loratadine 10 mg 07/28/24 09:00 08/02/24 08:26 Loratadine 10 Mg Tablet PO 10 mg QAM [facility] Administration Methocarbamol 500 mg 07/27/24 23:01 Methocarbamol 500 Mg Tablet PO PRN PRN back spasms Metoprolol Tartrate 25 mg 07/29/24 09:25 08/02/24 08:26 Metoprolol Tartrate 25 Mg Tablet PO 25 mg Q12HR [facility]ER Administration Montelukast Sodium 10 mg 07/27/24 09:00 08/02/24 08:27 Montelukast Sodium 10 Mg Tablet PO 10 mg DAILY BALWINDER Administration * Home Med * 15 mcg 07/29/24 12:00 08/01/24 10:21 Arformoterol 15 Mcg/ INHALATION 08/28/24 11:59 15 mcg 2 Ml Solution For Q12HRT BALWINDER Administration Nebulization * Home Med * 175 mcg 07/29/24 12:05 08/01/24 09:12 Revefenacin [Yupelri INHALATION 08/28/24 12:04 175 mcg ] 175 Mcg/3 Ml DAILYRT BALWINDER Administration Solution For Nebulization Ondansetron HCl 4 mg 07/27/24 14:41 Ondansetron Inj 4 Mg/2 Ml Vial IV PUSH Q4H PRN Nausea Pantoprazole Sodium 40 mg 07/28/24 09:00 08/02/24 08:26 Pantoprazole 40 Mg Tablet PO 40 mg Q12HR BALWINDER Administration Potassium Chloride 40 meq 08/01/24 17:00 08/02/24 08:26 Potassium Chloride 20 Meq Packet (For Liquid) PO Not Given BID BALWINDER Roflumilast 500 mcg 07/28/24 21:00 08/01/24 21:10 Roflumilast 500 Mcg Tablet PO 500 mcg HS BALWINDER Administration Sodium Bicarbonate 1,300 mg 07/31/24 09:00 08/02/24 08:26 Sodium Bicarbonate Tab 650 Mg Tablet PO 1,300 mg BID BALWINDER Administration Sodium Chloride 10 ml 07/28/24 14:00 08/02/24 05:37 Central Line Flush IV PUSH 10 ml Q8HR BALWINDER Administration Sodium Chloride 1 spray 08/01/24 13:21 Saline 0.65% Emery Soln 44 Ml Btl NASAL Q6HR PRN Congestion Sodium Chloride 1 applic 08/01/24 21:00 08/01/24 21:10 Sodium Chloride Nasal Gel 14.1 Gm NASAL 1 applic HS BALWINDER Administration Radiology Results: ITS Impressions Chest X-Ray 07/27/24 15:37 Impression: 1: Multifocal left-sided consolidation, consistent with pneumonia. Chest/Abdomen/Pelvis CT 07/29/24 16:54 IMPRESSION: 1. Emphysema with extensive new consolidation the bilateral upper lobes consistent with pneumonia. 2. Intra and extra hepatic ductal or ductal dilation and pneumobilia with unchanged. Unchanged biliary stent in expected position. 3. Bilateral nonobstructing nephrolithiasis. 4. Prostatomegaly. Renal Ultrasound 07/31/24 14:28 IMPRESSION: 1. Polycystic kidney disease. Labs Labs: Laboratory Results - last 24 hr 08/02/24 05:35 WBC 9.4 RBC 2.51 L Hgb 7.4 L Hct 22.6 L MCV 90.0 MCH 29.5 MCHC 32.7 RDW 16.6 H Plt Count 47 L MPV 12.0 H Immature Gran % (Auto) Not Reportable Neut % (Auto) Not Reportable Lymph % (Auto) Not Reportable Payne % (Auto) Not Reportable Eos % (Auto) Not Reportable Baso % (Auto) Not Reportable Lymph # (Auto) Not Reportable Payne # (Auto) Not Reportable Eos # (Auto) Not Reportable Baso # (Auto) Not Reportable Abs Immat Gran (auto) Not Reportable Absolute Neuts (auto) Not Reportable Absolute Nucleated RBC Not Reportable Total Counted 100 Neutrophils % (Manual) 75 H Band Neutrophils % 13 H Lymphocytes % (Manual) 5 L Monocytes % (Manual) 6 Eosinophils % (Manual) 1 Nucleated RBC % Not Reportable Abs Neuts (Manual) 8.27 H Abs Lymphs (Manual) 0.47 L Abs Monocytes (Manual) 0.56 Absolute Eos (Manual) 0.09 Platelet Estimate Decreased % Immature Plt Fraction 4.0 Hypochromasia 1+ Anisocytosis 2+ Ovalocytes 2+ Schistocytes None seen Sodium 143 Potassium 3.0 L Chloride 115 H Carbon Dioxide 16 L Anion Gap 12 BUN 32 H Creatinine 2.26 H Estim Creat Clear Calc 26 Estimated GFR 29 L Glucose 94 Calcium 8.9 Phosphorus 3.5 Magnesium 1.6 Total Bilirubin 2.1 H AST 16 L ALT 18 Alkaline Phosphatase 85 Total Protein 6.0 L Albumin 2.6 L
[2024-08-02] MEDS: POTASSIUM CHLORIDE INJ 40 MEQ in SODIUM CHLORIDE 0.9% IV 500 ML 130 MEQ IVPB (09:36)
[2024-08-02] MEDS: MAGNESIUM SULF 2 GM/WATER 50ML 2 GM/50 ML BAG IVPB (09:36)
--- NOTE | 2024-08-02 13:57 | P.PNNP_ITS ---
Subjective Date/time seen: 08/02/24 13:57 Objective Data Vital Signs Vital Signs: Vital Signs Temp Pulse Resp BP Pulse Ox O2 Del Method O2 Flow Rate 08/02/24 13:50 99.9 F H 103 H 20 137/77 98 08/02/24 08:13 117 H 18 08/02/24 08:00 96 Nasal Cannula 3 08/02/24 07:53 114 H 18 08/02/24 07:53 96 Nasal Cannula 3 08/02/24 06:00 98.4 F 114 H 18 138/70 100 08/02/24 03:33 99 24 H 08/02/24 03:25 106 H 24 H 08/01/24 22:00 97.7 F 102 H 18 152/75 H 100 08/01/24 21:08 112 H 08/01/24 20:37 105 H 24 H 08/01/24 20:19 100 24 H 08/01/24 20:19 98 Nasal Cannula 3 Intake/Output Intake/Output: Intake & Output 07/30/24 07/31/24 08/01/24 08/02/24 23:59 23:59 23:59 23:59 Intake Total 2830 2030 1260 336 Output Total 3225 8890 6589 2888 [facility] -930 [phone] [phone] Meds/Results Medications: Active Medications Generic Name Dose Route Start Last Admin Trade Name Freq PRN Reason Stop Dose Admin Acetaminophen 650 mg 07/27/24 14:41 07/27/24 23:55 Acetaminophen 325 Mg Tablet PO 650 mg Q4H PRN Administration Mild Pain (1-3) or Fever Hydrocodone Bitart/Acetaminophen 1 tab 07/27/24 14:41 Hydrocodone/Acetaminophen (*Crx) 5-325 Mg Tablet PO Q4H PRN Pain Rated 4-6 Albuterol 1 - 2 puff 07/27/24 23:05 Albuterol Sulfate (*Sp) Aerosol 1 Puff INHALATION Q4-6H PRN sob/wheezing Albuterol/Ipratropium 3 ml 07/27/24 20:00 08/02/24 15:45 Ipratropium 0.5 Mg/Albuterol Sulfate 2.5 Mg Ampul.Neb 3 Ml INHALATION 3 ml Q6HRT BALWINDER Administration Allopurinol 300 mg 07/28/24 09:00 08/02/24 08:26 Allopurinol 300 Mg Tablet PO 300 mg DAILY BALWINDER Administration Ascorbic Acid 500 mg 07/28/24 09:00 08/02/24 08:26 Ascorbic Acid 500 Mg Tablet PO 500 mg QAM [facility]ER Administration Aspirin 81 mg 07/28/24 09:00 08/02/24 08:26 Aspirin 81 Mg Chewable Tablet PO 81 mg DAILY BALWINDER Administration Baclofen 10 mg 07/27/24 23:01 Baclofen 10 Mg Tablet PO TID PRN Hiccups Benzonatate 100 mg 07/27/24 16:31 Benzonatate 100 Mg Capsule PO TID PRN Cough Budesonide 0.25 mg 07/28/24 08:00 08/02/24 07:52 Budesonide Respule Neb 0.5 Mg/2 Ml Amp INHALATION 0.25 mg Q12HRT BALWINDER Administration Cyanocobalamin 1,000 mcg 07/28/24 09:00 08/02/24 08:26 Cyanocobalamin 1,000 Mcg Tablet PO 1,000 mcg QAM [facility] Administration Doxazosin Mesylate 8 mg 07/28/24 21:00 08/01/24 21:08 Doxazosin Mesylate 4 Mg Tablet PO 8 mg HS BALWINDER Administration Ergocalciferol 50,000 units 08/02/24 09:00 08/02/24 08:27 Ergocalciferol 50,000 Units Capsule PO 50,000 units WEEKLY [facility] Administration Ferrous Sulfate 650 mg 07/28/24 09:00 08/02/24 08:26 Ferrous Sulfate [address] BY MOUTH 650 mg DAILY [facility]ER Administration Fluticasone Propionate 1 spray 07/27/24 23:01 Fluticasone Propionate 0.05% Na Spr 16 Gm Btl (*Bkc) NASAL DAILY PRN Congestion Folic Acid 1 mg 07/28/24 09:00 08/02/24 08:26 Folic Acid 1 Mg Tablet PO 1 mg QAM [facility] Administration Guaifenesin 600 mg 07/27/24 21:00 08/02/24 08:26 Guaifenesin 12 Hr 600 Mg Tabcr PO 600 mg Q12HR [facility]WINDER Administration Heparin Sodium (Beef Lung) 50 units 07/29/24 09:00 08/02/24 08:27 Heparin Flush 50 Units/5 Ml Syringe IV PUSH 50 units QAM [facility]WINDER Administration Heparin Sodium (Beef Lung) 50 units 07/28/24 10:11 08/01/24 13:58 Heparin Flush 50 Units/5 Ml Syringe IV PUSH 50 units PRN PRN Administration after intermittent infusion Heparin Sodium (Beef Lung) 50 units 07/28/24 10:11 08/01/24 06:15 Heparin Flush 50 Units/5 Ml Syringe IV PUSH 50 units PRN PRN Administration after blood draws Heparin Sodium (Porcine) 500 units 07/28/24 10:11 Heparin Sodium Lock Flush 500 Units/5 Ml Syringe IV PUSH PRN PRN see comments below Cefepime HCl 1 gm in 50 mls @ 100 mls/hr 07/27/24 18:00 08/02/24 17:05 Maxipime 1 Gm/Ns 50 Ml IVPB 08/03/24 06:29 100 mls/hr Q12H [facility]ER Administration Loratadine 10 mg 07/28/24 09:00 08/02/24 08:26 Loratadine 10 Mg Tablet PO 10 mg QAM [facility] Administration Methocarbamol 500 mg 07/27/24 23:01 Methocarbamol 500 Mg Tablet PO PRN PRN back spasms Metoprolol Tartrate 25 mg 07/29/24 09:25 08/02/24 08:26 Metoprolol Tartrate 25 Mg Tablet PO 25 mg Q12HR [facility]ER Administration Montelukast Sodium 10 mg 07/27/24 09:00 08/02/24 08:27 Montelukast Sodium 10 Mg Tablet PO 10 mg DAILY BALWINDER Administration * Home Med * 15 mcg 07/29/24 12:00 08/01/24 10:21 Arformoterol 15 Mcg/ INHALATION 08/28/24 11:59 15 mcg 2 Ml Solution For Q12HRT BALWINDER Administration Nebulization * Home Med * 175 mcg 07/29/24 12:05 08/01/24 09:12 Revefenacin [Yupelri INHALATION 08/28/24 12:04 175 mcg ] 175 Mcg/3 Ml DAILYRT [facility]WINDER Administration Solution For Nebulization Ondansetron HCl 4 mg 07/27/24 14:41 Ondansetron Inj 4 Mg/2 Ml Vial IV PUSH Q4H PRN Nausea Pantoprazole Sodium 40 mg 07/28/24 09:00 08/02/24 08:26 Pantoprazole 40 Mg Tablet PO 40 mg Q12HR [facility]ER Administration Potassium Chloride 40 meq 08/02/24 17:00 08/02/24 17:05 Potassium Chloride 20 Meq Er Tablet PO 40 meq BID BALWINDER Administration Roflumilast 500 mcg 07/28/24 21:00 08/01/24 21:10 Roflumilast 500 Mcg Tablet PO 500 mcg HS BALWINDER Administration Sodium Bicarbonate 1,300 mg 07/31/24 09:00 08/02/24 17:05 Sodium Bicarbonate Tab 650 Mg Tablet PO 1,300 mg BID BALWINDER Administration Sodium Chloride 10 ml 07/28/24 14:00 08/02/24 17:05 Central Line Flush IV PUSH 10 ml Q8HR BALWINDER Administration Sodium Chloride 1 spray 08/01/24 13:21 Saline 0.65% Emery Soln 44 Ml Btl NASAL Q6HR PRN Congestion Sodium Chloride 1 applic 08/01/24 21:00 08/01/24 21:10 Sodium Chloride Nasal Gel 14.1 Gm NASAL 1 applic HS BALWINDER Administration Radiology Results: ITS Impressions Chest X-Ray 07/27/24 15:37 Impression: 1: Multifocal left-sided consolidation, consistent with pneumonia. Chest/Abdomen/Pelvis CT 07/29/24 16:54 IMPRESSION: 1. Emphysema with extensive new consolidation the bilateral upper lobes consistent with pneumonia. 2. Intra and extra hepatic ductal or ductal dilation and pneumobilia with unchanged. Unchanged biliary stent in expected position. 3. Bilateral nonobstructing nephrolithiasis. 4. Prostatomegaly. Renal Ultrasound 07/31/24 14:28 IMPRESSION: 1. Polycystic kidney disease. Labs Labs: Laboratory Tests 08/02/24 05:35 08/02/24 05:35 08/02/24 05:35 WBC 9.4 RBC 2.51 L Hgb 7.4 L Hct 22.6 L MCV 90.0 MCH 29.5 MCHC 32.7 RDW 16.6 H Plt Count 47 L MPV 12.0 H Immature Gran % (Auto) Not Reportable Neut % (Auto) Not Reportable Lymph % (Auto) Not Reportable Tate % (Auto) Not Reportable Eos % (Auto) Not Reportable Baso % (Auto) Not Reportable Lymph # (Auto) Not Reportable Tate # (Auto) Not Reportable Eos # (Auto) Not Reportable Baso # (Auto) Not Reportable Abs Immat Gran (auto) Not Reportable Absolute Neuts (auto) Not Reportable Absolute Nucleated RBC Not Reportable Total Counted 100 Neutrophils % (Manual) 75 H Band Neutrophils % 13 H Lymphocytes % (Manual) 5 L Monocytes % (Manual) 6 Eosinophils % (Manual) 1 Nucleated RBC % Not Reportable Abs Neuts (Manual) 8.27 H Abs Lymphs (Manual) 0.47 L Abs Monocytes (Manual) 0.56 Absolute Eos (Manual) 0.09 Platelet Estimate Decreased % Immature Plt Fraction 4.0 Hypochromasia 1+ Anisocytosis 2+ Ovalocytes 2+ Schistocytes None seen Sodium 143 Potassium 3.0 L Chloride 115 H Carbon Dioxide 16 L Anion Gap 12 BUN 32 H Creatinine 2.26 H Estim Creat Clear Calc 26 Estimated GFR 29 L Glucose 94 Calcium 8.9 Phosphorus 3.5 Magnesium 1.6 Total Bilirubin 2.1 H AST 16 L ALT 18 Alkaline Phosphatase 85 Total Protein 6.0 L Albumin 2.6 L Microbiology 07/27/24 17:56 Blood Blood Culture - Final 07/27/24 17:56 Blood Blood Culture - Final
--- NOTE | 2024-08-02 14:09 | PCNFU ---
Nutrition Follow-Up Complete: Severe protein calorie malnutrition related to chronic loss of appetite, cancer treatment as evidenced by weight loss 15%/7 months; intakes <75% needs >1 month; moderate muscle wasting and fat loss Intakes >75% meals and supplements - Progressing. Intakes improved some. Intakes 25-100% last 48 hours Goal: Pt current nutrition is Heart healthy diet, Ensure Clear TID (240 kcal, 8 g protein) Nutrition recommendation: No new recommendations. Continue current nutrition care plan and orders. Agree with orders Last recorded weight is 83.5 kg. Bowel Motility: +1 BM 08/01/24 Labs Reviewed: Hgb 7.4, hct 22.6, Alb 2.6, K+ 3.0, BUN 32, Cre 2.26 Meds Noted: Protonix, Folic acid, Vit C, Vit B12, Zofran Skin: No skin issues Additional Notes: Intakes improving. Continue with current nutrition care plan Monitoring intakes, weights, labs, supplement tolerance, plan of care Follow up in 5 days
[2024-08-02] MEDS: POTASSIUM CHLORIDE 20 MEQ ER TABLET 40 MEQ PO (17:05)
[2024-08-02] MEDS: ROFLUMILAST 500 MCG TABLET PO (21:00)
[2024-08-02] MEDS: DOXAZOSIN MESYLATE 4 MG TABLET 8 MG PO (21:00)
[2024-08-02] MEDS: BENZONATATE 100 MG CAPSULE PO (21:00)
[2024-08-02] MEDS: SODIUM CHLORIDE NASAL GEL 14.1 GM 1 APPLIC NASAL (21:03)
[2024-08-03] VITALS (11 sets, daily range): BP systolic 148–151; BP diastolic 78–87; PULSE 86–100; RESP 16–20; TEMP 36.4–37.1; O2SAT 99–100
[2024-08-03] MEDS: IPRATROPIUM 0.5 MG/ALBUTEROL SULFATE 2.5 MG AMPUL.NEB 3 ML INHALATION ×2 (02:30→16:15)
[2024-08-03] MEDS: CEFEPIME 1 GM/NS 50 ML 1 GM/50 ML BAG IVPB (05:28)
[2024-08-03] MEDS: CENTRAL LINE FLUSH 10 ML IV PUSH ×2 (05:28→13:37)
[2024-08-03 05:41] LABS: Alanine Aminotransferase 16 U/L (6-50); Albumin Level 2.5 g/dL (3.5-5.1); Alkaline Phosphatase 88 U/L (38-126); Anion Gap 10 mmol/L (4-12); Aspartate Amino Transferase 17 U/L (17-59); Bilirubin,Total 1.9 mg/dL (0.2-1.3); Blood Urea Nitrogen 29 mg/dL (9-20); Calcium 8.6 mg/dL (8.4-10.2); Carbon Dioxide 16 mmol/L (22-30); Chloride 116 mmol/L (98-107); Estimated CRCL calculation 28 ml/min; Estimated Glomerular Filt Rate 31; Glucose 85 mg/dL (65-110); Magnesium 2.1 mg/dL (1.6-2.3); Phosphorus 3.3 mg/dL (2.5-4.5); Potassium 3.5 mmol/L (3.4-5.0); Sodium 142 mmol/L (137-145)
[2024-08-03 06:56] LABS: Hematocrit 22.3 % (42.0-52.0); Hemoglobin 7.1 g/dL (14.0-18.0); Mean Corpuscular HGB Conc 31.8 g/dl (32-36); Mean Corpuscular Hemoglobin 28.9 pg (26-34); Mean Corpuscular Volume 90.7 fl (80-100); Mean Platelet Volume 10.3 fl (7.4-10.4); Platelet Count Result 55 k/mm3 (150-375); Red Blood Count 2.46 M/mm3 (4.6-6.20); Red Cell Distribution Width 16.9 % (11.5-14.5); White Blood Count 9.9 K/mm3 (4.5-10.0)
[2024-08-03] MEDS: FERROUS SULFATE 325 MG TABLET DR 650 MG BY MOUTH (08:50)
[2024-08-03] MEDS: LORATADINE 10 MG TABLET PO (08:51)
[2024-08-03] MEDS: ASPIRIN 81 MG CHEWABLE TABLET PO (08:51)
[2024-08-03] MEDS: POTASSIUM CHLORIDE 20 MEQ ER TABLET 40 MEQ PO ×2 (08:51→17:22)
[2024-08-03] MEDS: SODIUM BICARBONATE TAB 650 MG TABLET 1300 MG PO ×2 (08:51→17:22)
[2024-08-03] MEDS: allopurinoL 300 MG TABLET PO (08:51)
[2024-08-03] MEDS: PANTOPRAZOLE 40 MG TABLET PO (08:51)
[2024-08-03] MEDS: guaiFENesin 12 HR 600 MG TABCR PO (08:51)
[2024-08-03] MEDS: FOLIC ACID 1 MG TABLET PO (08:51)
[2024-08-03] MEDS: MONTELUKAST SODIUM 10 MG TABLET PO (08:51)
[2024-08-03] MEDS: ASCORBIC ACID 500 MG TABLET PO (08:51)
[2024-08-03] MEDS: CYANOCOBALAMIN 1,000 MCG TABLET 1000 MCG PO (08:51)
[2024-08-03] MEDS: METOPROLOL TARTRATE 25 MG TABLET PO (08:52)
[2024-08-03 09:18] LABS: Band Neutrophils Percent 12 % (0-6); Lymphocytes Absolute Manual 0.09 K/mm3 (1.1-4.5); Metamyelocytes Percent 1 %; Monocytes Absolute Manual 1.18 K/mm3 (0.1-0.90); Monocytes Percent Manual 12 % (3-9); Neutrophils Absolute Manual 8.51 K/mm3 (1.3-6.7); Neutrophils Percent Manual 74 % (46-73); Total Cells Counted 100
[2024-08-03 09:19] LABS: Platelet Estimate Decreased (Adequate); Schistocytes Rare
[2024-08-03 09:20] LABS: Ovalocytes 1+
[2024-08-03 09:22] LABS: Hypochromasia 1+
[2024-08-03] MEDS: ARFORMOTEROL 15 MCG/2 ML 15 EACH INHALATION (09:46)
--- NOTE | 2024-08-03 10:43 | PCRCNOTE ---
Window of time for administration has passed. See next scheduled administration.
--- NOTE | 2024-08-03 13:49 | PM.PNNEP ---
Subjective Date/time seen: 08/03/24 13:49 Interval history: Follow-up for acute kidney injury/acute renal failure on chronic kidney disease. Renal function/creatinine slowly improving with reasonable urine output noted; Objective Data Vital Signs Vital Signs: Vital Signs Temp Pulse Resp BP Pulse Ox O2 Del Method O2 Flow Rate 08/03/24 09:52 93 20 08/03/24 09:47 96 20 08/03/24 09:45 100 Nasal Cannula 3 08/03/24 08:52 86 08/03/24 08:50 99 Nasal Cannula 3 08/03/24 06:00 97.6 F 100 18 148/78 H 100 08/03/24 02:38 95 20 08/03/24 02:30 99 20 08/02/24 22:00 98.5 F 102 H 18 153/83 H 100 08/02/24 21:43 97 Nasal Cannula 3 08/02/24 21:42 92 20 08/02/24 21:26 91 20 08/02/24 20:00 100 Nasal Cannula 3 08/02/24 16:00 94 20 08/02/24 15:45 92 20 08/02/24 15:45 94 Nasal Cannula 3 Intake/Output Intake/Output: Intake & Output 07/31/24 08/01/24 08/02/24 08/03/24 23:59 23:59 23:59 23:59 Intake Total 2030 1260 922 240 Output Total 4550 2875 3475 1150 [facility] -2520 [phone] Meds/Results Medications: Active Medications Generic Name Dose Route Start Last Admin Trade Name Freq PRN Reason Stop Dose Admin Acetaminophen 650 mg 07/27/24 14:41 07/27/24 23:55 Acetaminophen 325 Mg Tablet PO 650 mg Q4H PRN Administration Mild Pain (1-3) or Fever Hydrocodone Bitart/Acetaminophen 1 tab 07/27/24 14:41 Hydrocodone/Acetaminophen (*Crx) 5-325 Mg Tablet PO Q4H PRN Pain Rated 4-6 Albuterol 1 - 2 puff 07/27/24 23:05 Albuterol Sulfate (*Sp) Aerosol 1 Puff INHALATION Q4-6H PRN sob/wheezing Albuterol/Ipratropium 3 ml 07/27/24 20:00 08/03/24 10:41 Ipratropium 0.5 Mg/Albuterol Sulfate 2.5 Mg Ampul.Neb 3 Ml INHALATION Not Given Q6HRT [facility] Allopurinol 300 mg 07/28/24 09:00 08/03/24 08:51 Allopurinol 300 Mg Tablet PO 300 mg DAILY BALWINDER Administration Ascorbic Acid 500 mg 07/28/24 09:00 08/03/24 08:51 Ascorbic Acid 500 Mg Tablet PO 500 mg QAM [facility]WINDER Administration Aspirin 81 mg 07/28/24 09:00 08/03/24 08:51 Aspirin 81 Mg Chewable Tablet PO 81 mg DAILY BALWINDER Administration Baclofen 10 mg 07/27/24 23:01 Baclofen 10 Mg Tablet PO TID PRN Hiccups Benzonatate 100 mg 07/27/24 16:31 08/02/24 21:00 Benzonatate 100 Mg Capsule PO 100 mg TID PRN Administration Cough Budesonide 0.25 mg 07/28/24 08:00 08/03/24 10:42 Budesonide Respule Neb 0.5 Mg/2 Ml Amp INHALATION Not Given Q12HRT [facility] Cyanocobalamin 1,000 mcg 07/28/24 09:00 08/03/24 08:51 Cyanocobalamin 1,000 Mcg Tablet PO 1,000 mcg QAM [facility] Administration Doxazosin Mesylate 8 mg 07/28/24 21:00 08/02/24 21:00 Doxazosin Mesylate 4 Mg Tablet PO 8 mg HS [facility] Administration Ergocalciferol 50,000 units 08/02/24 09:00 08/02/24 08:27 Ergocalciferol 50,000 Units Capsule PO 50,000 units WEEKLY [facility] Administration Ferrous Sulfate 650 mg 07/28/24 09:00 08/03/24 08:50 Ferrous Sulfate [address] BY MOUTH 650 mg DAILY [facility] Administration Fluticasone Propionate 1 spray 07/27/24 23:01 Fluticasone Propionate 0.05% Na Spr 16 Gm Btl (*Bkc) NASAL DAILY PRN Congestion Folic Acid 1 mg 07/28/24 09:00 08/03/24 08:51 Folic Acid 1 Mg Tablet PO 1 mg QAM [facility] Administration Guaifenesin 600 mg 07/27/24 21:00 08/03/24 08:51 Guaifenesin 12 Hr 600 Mg Tabcr PO 600 mg Q12HR [facility] Administration Heparin Sodium (Beef Lung) 50 units 07/29/24 09:00 08/03/24 08:53 Heparin Flush 50 Units/5 Ml Syringe IV PUSH 50 units QAM [facility]WINDER Administration Heparin Sodium (Beef Lung) 50 units 07/28/24 10:11 08/01/24 13:58 Heparin Flush 50 Units/5 Ml Syringe IV PUSH 50 units PRN PRN Administration after intermittent infusion Heparin Sodium (Beef Lung) 50 units 07/28/24 10:11 08/03/24 05:30 Heparin Flush 50 Units/5 Ml Syringe IV PUSH 50 units PRN PRN Administration after blood draws Heparin Sodium (Porcine) 500 units 07/28/24 10:11 Heparin Sodium Lock Flush 500 Units/5 Ml Syringe IV PUSH PRN PRN see comments below Loratadine 10 mg 07/28/24 09:00 08/03/24 08:51 Loratadine 10 Mg Tablet PO 10 mg QAM [facility] Administration Methocarbamol 500 mg 07/27/24 23:01 Methocarbamol 500 Mg Tablet PO PRN PRN back spasms Metoprolol Tartrate 25 mg 07/29/24 09:25 08/03/24 08:52 Metoprolol Tartrate 25 Mg Tablet PO 25 mg Q12HR [facility] Administration Montelukast Sodium 10 mg 07/27/24 09:00 08/03/24 08:51 Montelukast Sodium 10 Mg Tablet PO 10 mg DAILY BALWINDER Administration * Home Med * 15 mcg 07/29/24 12:00 08/03/24 09:46 Arformoterol 15 Mcg/ INHALATION 08/28/24 11:59 15 mcg 2 Ml Solution For Q12HRT [facility] Administration Nebulization * Home Med * 175 mcg 07/29/24 12:05 08/03/24 10:42 Revefenacin [Yupelri INHALATION 08/28/24 12:04 Not Given ] 175 Mcg/3 Ml DAILYRT [facility]WINDER Solution For Nebulization Ondansetron HCl 4 mg 07/27/24 14:41 Ondansetron Inj 4 Mg/2 Ml Vial IV PUSH Q4H PRN Nausea Pantoprazole Sodium 40 mg 07/28/24 09:00 08/03/24 08:51 Pantoprazole 40 Mg Tablet PO 40 mg Q12HR [facility] Administration Potassium Chloride 40 meq 08/02/24 17:00 08/03/24 08:51 Potassium Chloride 20 Meq Er Tablet PO 40 meq BID [facility] Administration Roflumilast 500 mcg 07/28/24 21:00 08/02/24 21:00 Roflumilast 500 Mcg Tablet PO 500 mcg HS [facility] Administration Sodium Bicarbonate 1,300 mg 07/31/24 09:00 08/03/24 08:51 Sodium Bicarbonate Tab 650 Mg Tablet PO 1,300 mg BID [facility]WINDER Administration Sodium Chloride 10 ml 07/28/24 14:00 08/03/24 13:37 Central Line Flush IV PUSH 10 ml Q8HR [facility] Administration Sodium Chloride 1 spray 08/01/24 13:21 Saline 0.65% Emery Soln 44 Ml Btl NASAL Q6HR PRN Congestion Sodium Chloride 1 applic 08/01/24 21:00 08/02/24 21:03 Sodium Chloride Nasal Gel 14.1 Gm NASAL 1 applic HS BALWINDER Administration Radiology Results: ITS Impressions Chest X-Ray 07/27/24 15:37 Impression: 1: Multifocal left-sided consolidation, consistent with pneumonia. Chest/Abdomen/Pelvis CT 07/29/24 16:54 IMPRESSION: 1. Emphysema with extensive new consolidation the bilateral upper lobes consistent with pneumonia. 2. Intra and extra hepatic ductal or ductal dilation and pneumobilia with unchanged. Unchanged biliary stent in expected position. 3. Bilateral nonobstructing nephrolithiasis. 4. Prostatomegaly. Renal Ultrasound 07/31/24 14:28 IMPRESSION: 1. Polycystic kidney disease. Labs Labs: Laboratory Tests 08/03/24 06:51 08/03/24 05:06 Calcium 8.6 Phosphorus 3.3 Magnesium 2.1 Total Bilirubin 1.9 H AST 17 ALT 16 Alkaline Phosphatase 88 Total Protein 6.0 L Albumin 2.5 L
--- NOTE | 2024-08-03 16:06 | PCRCNOTE ---
Window of time for administration has passed. See next scheduled administration.
--- NOTE | 2024-08-03 17:14 | PM.DS ---
DS: Admitting Diagnosis Discharge Date 08/03/24 Admitting Diagnosis Hemoptysis DS: Discharge Diagnosis Discharge Diagnosis (1) Thrombocytopenia: Code(s): D69.6 - Thrombocytopenia, unspecified Status: Acute (2) Chronic kidney disease, stage 2 (mild): Code(s): N18.2 - Chronic kidney disease, stage 2 (mild) Status: Chronic (3) Anemia: Qualifiers: Anemia type: unspecified type Qualified Code(s): D64.9 - Anemia, unspecified Code(s): D64.9 - Anemia, unspecified Status: Acute (4) Pancytopenia due to antineoplastic chemotherapy: Code(s): D61.810 - Antineoplastic chemotherapy induced pancytopenia; T45.1X5A - Adverse effect of antineoplastic and immunosuppressive drugs, initial encounter Status: Acute (5) Pneumonia: Code(s): J18.9 - Pneumonia, unspecified organism Status: Acute DS: Summary Hospital Course Hospital Course: 73 y/o M presents here with hemoptysis with PMH of G6PD deficiency, former smoker, hypertension, chronic respiratory failure with hypoxia on home O2, COPD, BPH, small cell lung cancer, hepatitis-C, GERD, PE (2021), sleep apnea, and CKD. The patient presents here from his oncologist's office, there for chemo, for further evaluation of hemoptysis. Hemoptysis began last night and is accompanied by shortness of breath, lower chest wall pain on the left), diarrhea, productive cough, and fever. Denies chills or body aches. Has a history of a pulmonary emboli in 2021. He also has a history of small cell lung cancer for which he has undergone radiation and chemo, follows with Stephanie [facility]RA[facility]. Last chemotherapy was on 06/18/24 and last radiation treatment on 05/04/24. Per patient's radiation/oncology note in April of 2024, the patient's treatment course was complicated by 2 hospitalizations due to pneumonia. However, most recent admission in May of 2024 was due to epistaxis. Initial VS at presentation: 98.2? F, HR 55, RR 36, 06/14/2042, and 99% on 3L NC. ED workup showed: WBC 1.0, hemoglobin 6.0, platelet count 18, INR 1.3, creatinine 2.7 and GFR 28 (previously 1.6 and GFR 52 on 07/16/2024), glucose 120, total bilirubin 3.0, AST 13, albumin 3.2. CXR showed multifocal left-sided consolidation, consistent with pneumonia. Viral PCR negative. Patient was managed for sepsis and pneumonia and completed antibiotics today. Nephrology was consulted and he was managed for Khurram on CKD and creatinine is improved and continues to improve. Patient wanted to be discharged today and i discussed with nephrology and he noted he can follow up renal function outpatient since Cr is on a down trend and patient is making adequate urine. Cr is 2.11 down from 2.7. Pancytopenia was Chemo induced, WBC 0.7, hb 7.0 and plts 18 on admission. he was given Procrit and Neulasta on 07/19/24, however WBC 9.9, hb 7.1 and plts 55, patient received 2 units of pRBC. patient will continue follow up with oncology. Follow up CBC and CMP on 08/06/24 F/u with PCP in 3-5 days F/u with Nephrology and Oncology as instructed Time Spent with Patient Time attestation: Total time spent providing and/or coordinating discharge services: DS: Data Data Completed and Pending Labs on day of discharge: Labs from last 24 hours 08/03/24 08/03/24 06:51 05:06 WBC 9.9 Cancelled RBC 2.46 L Cancelled Hgb 7.1 L Cancelled Hct 22.3 L Cancelled MCV 90.7 Cancelled MCH 28.9 Cancelled MCHC 31.8 L Cancelled RDW 16.9 H Cancelled Plt Count 55 L Cancelled MPV 10.3 Cancelled Immature Gran % (Auto) Not Reportable Cancelled Neut % (Auto) Not Reportable Cancelled Lymph % (Auto) Not Reportable Cancelled [place] % (Auto) Not Reportable Cancelled Eos % (Auto) Not Reportable Cancelled Baso % (Auto) Not Reportable Cancelled Lymph # (Auto) Not Reportable Cancelled [place] # (Auto) Not Reportable Cancelled Eos # (Auto) Not Reportable Cancelled Baso # (Auto) Not Reportable Cancelled Abs Immat Gran (auto) Not Reportable Cancelled Absolute Neuts (auto) Not Reportable Cancelled Absolute Nucleated RBC Not Reportable Cancelled Total Counted 100 Cancelled Neutrophils % (Manual) 74 H Cancelled Band Neutrophils % 12 H Cancelled Lymphocytes % (Manual) 1.0 L Cancelled Monocytes % (Manual) 12 H Cancelled Eosinophils % (Manual) Cancelled Basophils % (Manual) Cancelled Metamyelocytes % 1 Cancelled Myelocytes % Cancelled Promyelocytes % (Man) Cancelled Nucleated RBC % Not Reportable Cancelled Abs Neuts (Manual) 8.51 H Cancelled Abs Lymphs (Manual) 0.09 L Cancelled Abs Monocytes (Manual) 1.18 H Cancelled Absolute Eos (Manual) Cancelled Abs Basophils (Manual) Cancelled Nucleated RBCs Cancelled Hypersegmented Neuts Cancelled Atypical Lymphocytes Cancelled Blast Cells Cancelled Plasma Cells Cancelled Smudge Cells Cancelled Other Cell Type Cancelled Toxic Granulation Cancelled Dohle Bodies Cancelled Felice Rods Cancelled Platelet Estimate Decreased Cancelled Clumped Platelets Cancelled Large Platelets Cancelled Giant Platelets Cancelled % Immature Plt Fraction Cancelled Polychromasia Cancelled Hypochromasia 1+ Cancelled Hyperchromasia Cancelled Poikilocytosis Cancelled Basophilic Stippling Cancelled Anisocytosis Cancelled Microcytosis Cancelled Macrocytosis Cancelled Spherocytes Cancelled Pappenheimer Bodies Cancelled Sickle Cells Cancelled Target Cells Cancelled Tear Drop Cells Cancelled Ovalocytes 1+ Cancelled Stomatocytes Cancelled Helmet Cells Cancelled Grover[place]Sheldon Bodies Cancelled Chester Rings Cancelled [place] Cells Cancelled Crenated Cell Cancelled Acanthocytes (Spur) Cancelled Rouleaux Cancelled Schistocytes Rare Cancelled Sodium 142 Potassium 3.5 Chloride 116 H Carbon Dioxide 16 L Anion Gap 10 BUN 29 H Creatinine 2.11 H Estim Creat Clear Calc 28 Estimated GFR 31 L Glucose 85 Calcium 8.6 Phosphorus 3.3 Magnesium 2.1 Total Bilirubin 1.9 H AST 17 ALT 16 Alkaline Phosphatase 88 Total Protein 6.0 L Albumin 2.5 L Discharge Plan Discharge Attending physician on discharge: Gerard Robb Consulting providers: Shayan Brown; Keturah Cuba Discharging Clinician: Gerard Robb Anticipated Discharge Date/Time: 08/03/24 17:07 Patient Disposition: Home, Self-Care Activity: as tolerated Diet: regular Patient Instructions: Antibiotic Form Patient Language: Telugu Stand Alone Forms: General Discharge Information Follow-up/Referrals: Shayan Brown MD [Physician] - (F/u with oncology as instructed ) Keturah Cuba MD [Physician] - (F/u with Nephrology as instructed ) Jose Rivera MD [Primary Care Provider] - (F/u with PCP in 3-5 days ) Discharge Medications: New sodium bicarbonate 650 mg Tablet 1,300 mg PO BID 14 Days Qty: 56 0RF Continued Vitamin C 500 mg 1 tab-cap PO DAILY ferrous sulfate 65 mg 2 tab-cap PO DAILY vitamin P82-evllq acid 1,000 mcg 1 tab-cap PO DAILY allopurinol 300 mg tablet 300 mg PO DAILY doxazosin 8 mg tablet 8 mg PO HS (DME) Easy Neb Compressor Nebulizer Device See Rx Instructions .ROUTE .MEDSUPPLY Qty: 1 Rx Instructions: As directed fluticasone propionate 50 mcg/actuation spray,suspension 1 spray NASAL DAILY PRN (Reason: Congestion) Rx Instructions: administer into each nostril sildenafil 100 mg tablet 100 mg PO PRN PRN (Reason: Erectile Dysfunction) Rx Instructions: administer 30 minutes to 4 hours before activity ergocalciferol (vitamin D2) 1,250 mcg (50,000 unit) capsule 1,250 mcg PO WEEKLY Rx Instructions: THURSDAYS omeprazole 40 mg Capsule,Delayed Release(Dr/Ec) 40 mg PO DAILY methocarbamol 500 mg tablet 500 mg PO PRN PRN (Reason: back spasms) roflumilast 500 mcg tablet 500 mcg PO HS metoprolol tartrate 25 mg Tablet 25 mg PO Q12H aspirin [Aspirin Childrens] 81 mg tablet,chewable 81 mg PO DAILY baclofen 10 mg tablet 10 mg PO TID PRN (Reason: Hiccups) budesonide 0.25 mg/2 mL suspension for nebulization 0.25 mg inhalation BID metoprolol tartrate 25 mg tablet 25 mg PO HS levocetirizine 5 mg tablet 5 mg PO HS albuterol sulfate 90 mcg/actuation HFA aerosol inhaler See Rx Instructions .ROUTE .COMPLEX Qty: 3 1RF Dose Instruction: INHALE 1 TO 2 PUFFS EVERY 4 TO 6 HOURS NEEDED FOR SHORTNESS OF BREATH OR WHEEZING Patient Comments: . Rx Instructions: INHALE 1 TO 2 PUFFS EVERY 4 TO 6 HOURS NEEDED FOR SHORTNESS OF BREATH OR WHEEZING Yupelri 175 mcg/3 mL solution for nebulization 175 mcg inhalation DAILY 30 Days Qty: 90 5RF montelukast 10 mg tablet See Rx Instructions .ROUTE .COMPLEX Qty: 90 3RF Dose Instruction: TAKE 1 TABLET EVERY MORNING Rx Instructions: TAKE 1 TABLET EVERY MORNING arformoterol 15 mcg/2 mL solution for nebulization 15 mcg inhalation BID 30 Days Qty: 120 5RF albuterol sulfate 90 mcg/actuation HFA aerosol inhaler See Rx Instructions .ROUTE .COMPLEX Qty: 3 0RF Dose Instruction: INHALE 1 TO 2 PUFFS EVERY 4 TO 6 HOURS NEEDED FOR SHORTNESS OF BREATH OR WHEEZING Patient Comments: . Rx Instructions: INHALE 1 TO 2 PUFFS EVERY 4 TO 6 HOURS NEEDED FOR SHORTNESS OF BREATH OR WHEEZING Other Ambulatory Orders: Complete Blood Count with Diff (Routine) Timeframe: 20240806 Location: Determined by Patient Ordered By: Gerard Robb Comprehensive Metabolic Panel (Routine) Timeframe: 20240806 Location: Determined by Patient Ordered By: Gerard Robb Date of admission: 07/27/24 14:42 Primary Care Provider: Jose Rivera Admitting Provider: Serjio Blankenship Attending physician on admission: Serjio Blankenship Condition: Stable
[2024-08-03] MEDS: HEPARIN SODIUM LOCK FLUSH 500 UNITS/5 ML SYRINGE IV PUSH (17:23)
== END 2024-08-03 19:20 | disposition home or self-care (01) | DRG 871 ==
LOC: ANHED 14:41 → ANH3MEDSUR 21:48
PROVIDERS: Emergency Medicine; Internal Medicine; Internal Medicine Nephrology; Student in an Organized Health Care Education/Training Program; Admitting Provider Hospitalist; Emergency Provider Family Medicine; PCP Family Medicine; Visit Provider Internal Medicine
DX: A41.9 Sepsis, unspecified organism (principal); D61.810 Antineoplastic chemotherapy induced pancytopenia; J15.1 Pneumonia due to Pseudomonas; C34.11 Malignant neoplasm of upper lobe, right bronchus or lung; J96.11 Chronic respiratory failure with hypoxia; N17.9 Acute kidney failure, unspecified; E44.0 Moderate protein-calorie malnutrition; I12.9 Hypertensive chronic kidney disease with stage 1 through stage 4 chronic kidney disease, or unspecified chronic kidney disease; N18.2 Chronic kidney disease, stage 2 (mild); J44.9 Chronic obstructive pulmonary disease, unspecified; E87.6 Hypokalemia; D75.A Glucose-6-phosphate dehydrogenase (G6PD) deficiency without anemia; K21.9 Gastro-esophageal reflux disease without esophagitis; B18.2 Chronic viral hepatitis C; T45.1X5A Adverse effect of antineoplastic and immunosuppressive drugs, initial encounter; N40.0 Benign prostatic hyperplasia without lower urinary tract symptoms; G47.30 Sleep apnea, unspecified; Z20.822 Contact with and (suspected) exposure to COVID-19; Z77.090 Contact with and (suspected) exposure to asbestos; Z86.711 Personal history of pulmonary embolism; Z87.891 Personal history of nicotine dependence; Z79.82 Long term (current) use of aspirin; Z99.81 Dependence on supplemental oxygen; Z68.28 Body mass index [BMI] 28.0-28.9, adult
CPT/HCPCS: 36415; 36430; 71046; 71250; 74176; 76775; 80048; 80053; 80202; 81001; 81050; 82550; 82565; 82570; 82728; 83010; 83540; 83550; 83605; 83735; 84100; 84145; 84156; 84300; 84540; 85025; 85046; 85055; 85610; 85730; 85999; 86850; 86900; 86901; 86923; 87040; 87070; 87186; 87205; 87637; 87641; 93005; 94640; 96361; 96374; 99285; A9270; J0456; J0692; J0696; J1642; J3370; J3475; J3480; J7030; J7040; J7050; P9016; P9034; Q5105

== ENCOUNTER 2024-10-16 08:38 | Outpatient (CLI) | payer MEDICARE, MEDICAID, SELFPAY ==
--- NOTE | ~2024-10-16 | MR_ITS ---
MRI of the brain Clinical History: Lung cancer, posttreatment surveillance Technique: Axial and sagittal T1-weighted images were acquired. These were followed by axial T2-weigh leann, diffusion weighted, gradient, and FLAIR images. Following intravenous administration of 15 cc Pr oHance gadolinium, T1-weighted fat-sat imaging was performed in the axial and coronal planes. COMPARISON: 02/09/2024 Findings: No acute infarct, intracranial hemorrhage, or mass lesion seen. There are a few scattered t iny foci of hyperintense FLAIR signal in the white matter, compatible with minimal chronic vascular i schemic change. Ventricles and subarachnoid spaces are unremarkable. Orbits are unremarkable. There is right maxillar y sinus disease. Remaining paranasal sinuses and mastoid air cells are clear. Major intracranial flow voids are intact. Sagittal midline structures are intact. No abnormal postcontrast enhancement identified. IMPRESSION: No evidence of intracranial metastasis. No acute infarct or intracranial hemorrhage. Right maxillary sinus disease. Reviewed, dictated and finalized at [facility]. IMPRESSION: No evidence of intracranial metastasis. No acute infarct or intracranial hemorr sejal. Right maxillary sinus disease.
--- OUTSIDE RECORDS SUMMARY | 2024-10-16 08:57 | XMS_ITS | Encounter Summary ---
Author Organization [facility] Healthcare Address [address] [place] [address] Care Team Providers Care Fire Lookout Name Role Phone Jose Rivera MD Primary Care Provider Justin Miller MD Unavailable Shayan Brown MD Unavailable [phone] Encounter Details Date Type Department Care Team (Late st Contact Info) Description 06/04/2024 Telephone [facility] - Interventional Radiology [address] [place] [address] Pearl Goldstein RN Social History Tobacco Use Types Packs/Day Years Used Date Smoking Tobacco: Former Cigarettes 1 7.3 2 018 - 1965 Passive Smoke Exposure: [...] often do you attend chur ch or sikh services? Never 02/03/2023 Do you belong to any clubs o r organizations such as anglican groups, unions, fraternal or athletic groups, or [...] place to sleep or slept in a long-term (including now)? No 02/03/2023 Personal Safety Answer Date Recorded Have you ever been in or are you currently in a harmful physical or emotional relationship or is someone making you feel afraid or unsafe? Denies 06/04/2024 Sex and Gender Information Value Date Recorded Sex Assigned at Not on file Legal Sex Male 1:47 AM [employer] Gender Identity Not on file Sexual Orientation [...] Diagnoses Not on filedocumented in this encounter Additional Health Concerns Infection Onset Date Last Indicated Resolved Time COVID: Suspected 08/06/2024 08/06/2024 08/06/2024 7:34 AM [employer] INS[employer] AND [employer] COVID19 08/06/2024 08/06/2024 08/20/2024 2:36 PM CDT COVID: Recovered Comment:Added based on recent COVID infection. 08/20/2024 08/20/2024 documented as of this encounter Care Teams Fire Lookout Relationship Specialty Start Date End Date Jose Rivera MD [address] [address] PCP - General 08/29/17 [place] [address] [place] [address] Consulting Physician Gastroenterology 02/08/23 Shayan Brown MD [address] [address] Referring Physician Hematology 01/13/24 documented as of this encounter
--- OUTSIDE RECORDS SUMMARY | 2024-10-16 08:57 | XMS_ITS | Encounter Summary ---
Author Organization [facility] [employer] Address [address] [place] [address] Care Team Providers Care Computing Tutor Name Role Phone Jose Rivera MD Primary Care Provider [phone] Encounter Details Date Type Department Care Team (Late st Contact Info) Description 10/15/2024 Orders Only [facility] Oncology and Hematology - Jose [address] [place] [address] Shayan Brown MD [address] [facility] [address] [place] [address] Small cell lung cancer (CMS/HCC) [...] Care Team (Late st Contact Info) Description 01/18/2025 9:45 AM CDT Office Visit [facility] Oncology and Hematology - Jose [address] [place] [address] Shayan Brown MD [address] [facility] [address] [place] [address] documented as of this encounter Visit Diagnoses Diagnosis Small cell lung cancer (CMS/HCC) Malignant neoplasm of bronchus and lung, unspecified site documented in this encounter Care Teams Computing Tutor Relationship Specialty Start Date End Date Jose Rivera MD [address] [place], [place] [id number] PCP - General Family Practice 12/29/23 documented as of this encounter
--- OUTSIDE RECORDS SUMMARY | 2024-10-16 08:57 | XMS_ITS | CONTINUITY OF CARE DOCUMENT ---
Author Name tom santos Address Unknown Organization [facility] Address [address] [place] [address] [address] [place] [address] Phone [phone] Care Team Providers Care Survey Chief Name Role Phone tom santos Unavailable Unavailable
--- OUTSIDE RECORDS SUMMARY | 2024-10-16 08:57 | XMS_ITS | Clinical Summary ---
Author Organization [facility] Joyce Kingsley Address [address] [place] [address] Care Team Providers Care Clipping Marker Name Role Phone Jose Rivera MD Primary [...] Encounters Date Type Department Care Team Description 10/15/2024 Orders Only [facility] Oncology and Hematology [facility] [address] [place] [address] Shayan Brown MD Small cell lung cancer (CMS/HCC) 10/12/2024 9:00 AM CDT Office Visit [facility] Oncology and Hematology [facility] [address] [place] [phone] Shayan Brown MD Small cell carcinoma of lung, unspecified laterality, unspecified part of lung (CMS/HCC) (Primary Dx) 10/01/2024 Orders Only [facility] Oncology and Hematology [facility] [address] [place] [address] Shayan Brown MD Small cell lung cancer (CMS/HCC) 09/27/2024 Orders Only [facility] Oncology and Hematology - Jose [address] [place] [phone] Shayan Brown MD Chronic anemia (Primary Dx) 09/25/2024 External Device Data STL ABSTRACTION Provider, Abstract 09/24/2024 Orders Only [facility] Oncology and Hematology - Jose [address] [place] [phone] Shayan Brown MD 09/18/2024 External Device Data STL ABSTRACTION Provider, Abstract 09/17/2024 Orders Only [facility] Oncology and Hematology - Jose [address] [place] [phone] Shayan Brown MD Small cell lung cancer ([facility]/HCC) 09/14/2024 Orders Only [facility] Oncology and Hematology - Jose [address] [place] [phone] Shayan Brown MD 09/07/2024 Orders Only [facility] Oncology and Hematology - Jose [address] [place] [phone] Shayan Brown MD 09/03/2024 Orders Only [facility] Oncology and Hematology - Jose [address] [place] [address] Shayan Brown MD Small cell lung cancer ([facility]/HCC) 08/29/2024 External Device Data STL ABSTRACTION Provider, Abstract 08/20/2024 External Device Data STL ABSTRACTION Provider, Abstract 08/20/2024 Orders Only [facility] Oncology and Hematology - Jose [address] [place] [address] Shayan Brown MD Small cell lung cancer ([facility]/HCC) 08/07/2024 External Device Data STL ABSTRACTION Provider, Abstract 08/06/2024 Orders Only [facility] Oncology and Hematology - Jose [address] [place] [address] Shayan Brown MD Small cell lung cancer (CMS/HCC) 07/27/2024 Telephone [facility] Oncology and Hematology - Jose [address] [place] [address] Shayan Brown MD Lab Results 07/23/2024 Orders Only [facility] Oncology and Hematology Jose [address] [place] [address] Shayan Brown MD Small cell lung cancer [...] Sign Reading Time Taken Comments Blood Pressure 117/73 10/12/2024 8:56 AM CDT Pulse 82 10/12/2024 8:56 AM CDT Temperature 36.7 C (98.1 F) 10/12/2024 8:56 AM CDT Respiratory Rate 15 10/12/2024 8:56 AM CDT Oxygen Saturation 93% 10/12/2024 8:56 AM CDT Inhaled Oxygen Concentration - - Weight 74.1 kg (163 lb 6.4 oz) 10/12/2024 8:56 A M CDT Height 172.7 cm (5' 8 ) 01/03/2024 1:56 PM CDT Body Mass Index 24.84 01/03/2024 1:56 PM CDT Plan of Treatment Upcoming Encounters Date Type Department Care Team (Late st Contact Info) Description 01/18/2025 9:45 AM CDT Office Visit [facility] Oncology and Hematology - Jose [address] [facility] [address] [place] [address] Shayan Brown MD [address] [facility] [address] [place] [address] Health Maintenance Due Date Last Done Comments DTAP/TDAP/TD VACCINES (1 - Tdap) 1969 PNEUMOCOCCAL VACCINE 50+ YEA RS (1 of 2 - PCV) 1969 FIT-DNA Q 3 years 12/05/1995 FIT/FOBT Q 1 year 12/05/1995 Flex Sig/CT Colonography Q 5 years 12/05/1995 RSV VACCINE (60+ or ) (1 - Risk 60-74 years 1-dose series) 2010 ZOSTER VACCINE (2 of 2) 04/24/2019 02/27/2019 INFLUENZA VACCINE (#1) 2024 COLORECTAL SCREENING 05/12/2026 05/12/2016 Colorectal Cancer Screening 05/12/2026 Abdominal Aortic Aneurysm (AAA) Screening Completed 04/14/2018, 04/14/2018 Procedures Procedure Name Priority Date/Time Associated Diagnosis Comments IRON LEVEL Routine 09/28/2024 11:53 AM CDT CBC WITH AUTODIFFERENTIAL Routine 2024 11:51 AM CDT CBC WITH AUTODIFFERENTIAL Routine 2024 12:18 PM CDT CBC MIXED CELL DIFFERENTIAL Routine 08/12 1:36 PM CDT from Last 3 Months Results * IRON LEVEL (09/28/2024 11:53 AM CDT) Blood us Shayan Brown MD CHEMISTRY ORDERABLES Final Resu lt * CBC WITH AUTODIFFERENTIAL (09/21/2024 11:51 AM CDT) Only the most recent of2 resultswithin the time period is included. Blood Shayan Brown MD HEMATOLOGY ORDERABLES Final Res ult * CBC MIXED CELL DIFFERENTIAL (09/07/2024 1:36 PM CDT) Blood Shayan Brown MD HEMATOLOGY ORDERABLES Final Res ult from Last 3 Months Insurance [employer] [facility] [place] [address] Care Teams Clipping Marker Relationship Specialty Start Date End Date Jose Rivera MD [address] [place] [address] PCP - General Family Practice 12/29/23
--- OUTSIDE RECORDS SUMMARY | 2024-10-16 08:57 | XMS_ITS | Encounter Summary ---
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 Name Role Phone Jose Rivera MD Primary Care Provider Justin Miller MD Unavailable [phone] Shayan Brown MD Unavailable [phone] Encounter Details Date Type Department Care Team (Late st Contact Info) Description 03/27/2019 Telephone [facility] [address] [facility] [address] [place], [place] [phone] Sumanth Reyes MD [address] [facility] [phone] [place], [place] [phone] Social History Tobacco Use Types Packs/Day Years Used Date Smoking Tobacco: Former Smokeless Tobacco: Never Alcohol Use Standard Drinks/Week Comments Yes 0 (1 standard drink = 0.6 oz pur e alcohol) socially Sex and Gender Information Value Date Recorded Sex Assigned at Not on file 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 Author CCM Chronic Pain Care Plan Chronic Care Management Improving( 9:19 AM CDT) No Mischel, Genevieve L., RN Note: Problem: Chronic Pain Goals: 1. 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 08/20/2024 08/20/2024 documented as of this encounter Care Teams Engine Maintenance Mechanic Relationship Specialty Start Date End Date Jose Rivera MD [address] [place] [phone] PCP - General 08/29/17 [place] [address] [place] [address] Consulting Physician Gastroenterology 02/08/23 Shayan Brown MD [address] [place] [phone] Referring Physician Hematology 01/13/24 documented as of this encounter
--- OUTSIDE RECORDS SUMMARY | 2024-10-16 08:57 | XMS_ITS | Clinical Summary ---
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 Name Role Phone Jose Rivera MD Primary Care Provider Justin Miller MD Unavailable Shayan Brown MD Unavailable [phone] Allergies Active Allergy Reactions Criticality Noted Date Comments Lisinopril Swelling Reaction: Swelling, Penicillins Hives High Reaction: Hives, Sulfa (Sulfonamide Antibiotics) Hives Medium 10/21/2019 Hives Hives Medications aspirin 81 mg tablet Take 1 tablet (81 mg total) by mouth daily Active sildenafil (VIAGRA) 100 mg tabletIndications: Erectile Dysfunction Take 1 tablet (100 mg total) by mouth as needed for erectile dysfunction Active fluticasone propionate (FLONASE) 50 mcg/actuation nasal sprayIndications:A llergic Conjunctivitis Administer 1 spray into each nostril daily as needed for allergies 12/25/19 19 Active levocetirizine (XYZAL) 5 mg tabletIndications: Allergic Conjunctivitis Take 1 tablet (5 mg total) by mouth bedtime 11/19/19 21 Active montelukast (SINGULAIR) 10 mg tabletIndications: Exercise-Induced Bronchospasm Prevention Take 1 tablet (10 mg total) by mouth daily 01/08/20 21 Active ergocalciferol (VITAMIN D) 50,000 unit capsule Take 1 capsule (50,000 Units total) by mouth once a week Take 50,000 Units by mouth once a week on Active albuterol HFA (PROVENTIL HFA,VENTOLIN HFA,PROAIR HFA) [...] (two) times a day 01/05/20 23 Active methocarbamoL (ROBAXIN) 500 mg tabletIndications: Muscle Spasm Take 1-2 tablets (500-1,000 mg total) by mouth 3 (three) times a day as needed for muscle spasms 180 tablet 1 04/11/20 23 Active revefenacin (Yupelri) 175 mcg/3 mL solution for nebulization Inhale 175 mcg once daily Active budesonide (PULMICORT) 0.25 mg/2 mL nebulizer solution Take 2 mL (0.25 mg total) by nebulization 2 (two) times a day Rinse mouth with water after use. Do not swallow. Active arformoteroL (BROVANA) 15 mcg/2 mL nebulizer solution Take 4 mL (30 mcg total) by nebulization 2 (two) times a day Active guaiFENesin (ROBITUSSIN) syrup 100 mg/5 mL Take 10 mL (200 mg total) by mouth 4 (four) times a day as needed for cough 120 mL 08/10/19 25 Active guaiFENesin ER (MUCINEX) 600 mg 12 hr tablet Take 1 tablet (600 mg total) by mouth 2 (two) times a day for 15 days 30 tablet 08/10/19 25 Active omeprazole (PriLOSEC) 40 mg capsuleIndications :GI Bleed Take 1 capsule (40 mg total) by mouth 2 (two) times a day 60 capsule 08/10/19 25 Active roflumilast (DALIRESP) 500 mcg tabletIndications: Prevention of Bronchospasm with Chronic Bronchitis Take 1 tablet (500 mcg total) by mouth nightly Active baclofen (LIORESAL) 10 mg tablet Take 1 tablet (10 mg total) by mouth 3 (three) times a day For hiccups Active sodium chloride 0.9% injection Administer 10 mL into catheter daily Flush SLOWLY (over 30 seconds). 900 mL 07/13/19 25 025 Active Problems Problem Noted Date Diagnosed Date Severe anemia 08/19/2024 Other emphysema 08/19/2024 Acute on chronic renal insufficiency 08/19/2024 Stage 3a chronic kidney disease 08/19/2024 Anemia due to stage 3a chronic kidney disease Biliary drain displacement 08/19/2024 PRISCILLA (acute kidney injury) 08/19/2024 Moderate protein-calorie malnutrition 08/07/2024 COVID-19 08/07/2024 Pneumonia of both upper lobes due to infectious organism 08/06/2024 Hilar lymphadenopathy 01/20/2024 Mass of upper lobe of right lung 01/12/2024 Jaundice 02/01/2023 Chronic obstructive pulmonary disease 04/23/2021 Chronic respiratory failure with hypoxia 019 Assessment & Plan (03/03/2019 4:42 PM CDT): [...] Plan (03/03/2019 4:42 PM CDT): Continue with Jacqueline bryan. Pain in extremity 12/08/2009 Primary hypertension 12/08/2009 Lumbago 12/08/2009 Low back pain 12/08/2009 Pain in limb 12/08/2009 Encounters Date Type Department Care Team Description 09/28/2024 1:32 PM CDT - 09/28/2024 11:59 PM CDT Hospital Encounter [facility] [address] [place] [phone] Gall bladder inflammation Discharge Disposition: Discharge to home or self care 09/28/2024 Orders Only [facility] [address] [place] [phone] Park Johns RN 09/27/2024 Telephone [facility] [address] [place] [phone] Juan Sierra RN 09/27/2024 Orders Only [facility] [address] [place] [phone] Juan Sierra, RN 08/19/2024 6:04 AM CDT - 08/23/2024 1:20 PM CDT Hospital Encounter [address] [phone] Oliverio Reddy MD Khan, Fatima A., MD Dehaan, MD Zachary Landin Anshu, MD PRISCILLA (acute kidney injury) (Primary Dx); Anemia, unspecified type; Obstruction of percutaneous transhepatic biliary drainage catheter Discharge Disposition: Discharge to home or self care 08/16/2024 3:00 PM TERRAZZO LAYER - 08/16/2024 11:59 PM [facility]ER Hospital Encounter [facility] [address] [place] [phone] Gall bladder inflammation Discharge Disposition: Discharge to home or self care 08/06/2024 6:28 AM TERRAZZO LAYER - 08/10/2024 1:43 PM [facility]ER Hospital Encounter [place] [place] [address] [address] [place] [phone] Jimmy Levy DO Lopez, Manuel Emilio, MD Gaspe Mudiyanselage, Roland Lynch MD Pneumonia of both upper lobes due to infectious organism (Primary Dx); COVID; Simple chronic bronchitis (HCC) [J41.0]; Chronic respiratory failure with hypoxia (CMS/HCC) (HCC) [J96.11]; COVID-19 [U07.1] Discharge Disposition: Discharge to home or self care from Last 3 Months Immunizations Immunization Administration Dates Next Due Sars-CoV-2, Unspecified 08/20/2020 ZOSTER Recombinant 02/27/2019 Surgical History Surgery Date Site/Laterality Comments LUMBAR FUSION Arthrodesis Lumbar - (Added by TW Conv) ANKLE SURGERY 06/13/2015 - 06/12/2016 Left Ankle Surgery - (Added by TW Conv) [place] NJX AA&/STRD TFRML EPI LUMBAR/SACRAL 1 LEVEL [...] CATHETER EXTERNAL OR INTERNAL EXTERNAL 07/13/2024 N/A CHANGE BILIARY DRAINAGE CATHETER EXTERNAL OR INTERNAL EXTERNAL 08/16/2024 N/A CHANGE BILIARY DRAINAGE CATHETER EXTERNAL OR INTERNAL EXTERNAL 08/20/2024 N/A CHANGE BILIARY DRAINAGE CATHETER EXTERNAL OR INTERNAL EXTERNAL 08/22/2024 N/A CHANGE BILIARY DRAINAGE CATHETER EXTERNAL OR INTERNAL EXTERNAL 09/28/2024 N/A Medical History Medical History Date Comments Personal history of other di seases of the circulatory system History of hypertension - (A dded by TW Conv) Emphysema of lung (HCC) Chronic pain disorder Pinched nerve right hand Oxygen dependent 3 L cont Low back pain Infectious viral hepatitis hx--t reated successfully Anemia 12/2023 Hypertension 1979 Chronic kidney disease 2019 Chronic kidney disease, stage 3a (HCC) Sleep apnea hsu not use CPAP Family History Medical History Relation Name Comments Cancer Brother 1 Skip Cotto Colon cancer Brother 1 Skip LundbergEros Cotto Diabetes Brother 2 Raj Ha Yadiel Stroke Brother 2 Raj Cotto Asthma Father Rev Denys Cotto Cancer Father Rev Denys Cotto Asthma Mother Shanell Cotto Relation Name Status Comments Brother 1 Skip Cotto Brother 2 Raj Cotto Father Rev Denys Cotto Mother Shanell Cotto Social History Tobacco Use Types Packs/Day [...] materials from doctor or pharmacy Never 04/12/2023 C Utilities Answer Date Recorded In the past 12 months has th e [employer], gas, oil, or water [employer] threatened to shut off services in your home? No 08/21/2024 Social Connection and Isolat ion Panel [NHANES] Answer Date Recorded In a typical week, how many times do you talk on the phone with family, friends, or neighbors? More than three times a week 08/21/2024 How often do you get togethe r with friends or relatives? Never 08/21/2024 How often do you attend chur ch or mandaen services? Never 08/21/2024 Do you belong to any clubs o r organizations such as buddhism groups, unions, fraternal or athletic groups, or school groups? No 08/21/2024 How often do you attend meet ings of the clubs or organizations you belong to? Never 08/21/2024 Are you , , di vorced, , never , or living with a partner? 08/21/2024 AUDIT-C Answer Date Recorded Q1: How often [...] care, and heating? Not hard at all 08/21/2024 Hunger Vital Sign Answer Date Recorded Within the past 12 months, y ou worried that your food would run out before you got the money to buy more. Never true 08/22/19 25 Within the past 12 months, t he food you bought just didn't last and you didn't have money to get more. Never true 08/21/2024 PRAPARE - Transportation Answer Date Re corded In the past 12 months, has l ack of transportation kept you from medical appointments or from getting medications? No 08/11 In the past 12 months, has l ack of transportation kept you from meetings, work, or from getting things needed for daily living? No 08/21/2024 Housing Stability Vital Sign Answer Ministerio e [...] to sleep or slept in a senior living (including now)? No 02/03/2023 Housing Stability Vital Sign Answer Ministerio e Recorded In the last 12 months, was t here a time when you were not able to pay the mortgage or rent on time? No 08/21/2024 In the past 12 months, how m any times have you moved where you were living? 0 08/21/2024 At any time in the past 12 m [facility], were you homeless or living in a senior living (including now)? No 08/21/2024 Personal Safety Answer Date Recorded Have you ever been in or are you currently in a harmful physical or emotional relationship or is someone making you feel afraid or unsafe? Denies 09/28/2024 Sex and Gender Information Value Date Recorded Sex Assigned at Not on file Legal Sex Male 1:47 AM TER[facility]O LAYER Gender Identity Not on file Sexual Orientation Not on file Obstetrics History Last Filed Vital Signs Vital Sign Reading Time Taken Comments Blood Pressure 150/89 09/28/2024 2:25 PM CDT Pulse 80 09/28/2024 2:25 PM CDT Temperature 37.4 C (99.3 F) 09/28/2024 1:42 PM CDT Respiratory Rate 14 09/28/2024 2:25 PM CDT Oxygen Saturation 98% 09/28/2024 2:25 PM CDT Inhaled Oxygen Concentration - - Weight 77.4 kg (170 lb 9.6 oz) 08/19/2024 10:05 AM CDT Height 172.7 cm (5' 8 ) 08/16/2024 3:21 PM TERRAZZO LAYER Body Mass Index 25.94 08/16/2024 3:21 PM TERRAZZO LAYER Plan of Treatment Health Maintenance Due Date Last Done Comments Colon Cancer Screening-Colonoscopy 1950 Depression Screening 1950 Prostate Cancer Screening-PSA 1950 DTaP/Tdap/Td Vaccine (1 - Tdap) 1961 Hepatitis B Screening 1968 Pneumococcal vaccine 65+ (1 of 2 - PCV) 1969 Well Visit 65+ 12/05/2015 Zoster Vaccine (2 of 2) 04/24/2019 02/27/2019 Influenza Vaccine (Season Ended) 2025 Fall Risk Assessment 09/28/2025 09/28/2024 Hepatitis C Screening Completed 04/14/2018, 018 Abdominal Aortic Aneurysm (AAA) Screen Completed , 10/19/2016 Goals Goal Patient Goal Type Associated Problems [...] as needed Medical Devices Explanted Type Area Concrete Polisher Device Identifier Shelf Expiration Date Model / Serial / Lot [employer] Ian Advanix 10fr 7cm Rapid Exchange Temporary Taper Tip Thin Wall 2 [id number] - [id number] Explanted:Qty: 1 on 02/01/2023 at [facility] Stent N/A: Bile Duct [employer] Ian 11/17/2024 [id number] / / [id number] Description:Slipped out of d uct Procedures Procedure Name Priority Date/Time Associated Diagnosis Comments CHANGE BILIARY DRAINAGE CATHETER EXTERNAL OR INTERNAL EXTERNAL Schedule Routine, Read Routine (OP Routine) 09/28/2024 2:12 PM CDT Gall bladder inflammation CHANGE BILIARY DRAINAGE CATHETER EXTERNAL OR INTERNAL EXTERNAL IP Routine 08/22/2024 11:52 AM CDT EGFR Routine 08/22/2024 5:00 AM CDT DIFFERENTIAL AUTO Routine 08/22/2024 5:0 0 AM CDT BASIC METABOLIC PANEL Routine 08/22/2024 5:00 AM CDT CBC WITH AUTO DIFFERENTIAL Routine 08/22/2024 5:[address] ABDOMEN PELVIS W CONTRAST IP Routine 08/21/2024 8:09 PM CDT CHANGE BILIARY DRAINAGE CATHETER EXTERNAL OR INTERNAL EXTERNAL ED 08/20/2024 2:15 PM CDT EGFR Routine 08/20/2024 6:14 AM CDT DIFFERENTIAL AUTO Routine 08/20/2024 6:1 4 AM CDT CBC WITH AUTO DIFFERENTIAL Routine 08/20/2024 6:14 AM CDT BASIC METABOLIC PANEL Routine 08/20/2024 6:14 AM CDT HEMOGLOBIN AND HEMATOCRIT Timed 08/19/2024 5:59 PM CDT US KIDNEY COMPLETE ED 08/19/2024 9: 17 AM CDT TRANSFUSE RED BLOOD CELLS Timed 08/19/2024 9:09 AM CDT XR CHEST PA LATERAL 2 VIEWS ED 08/19/2024 8:10 AM CDT TYPE AND SCREEN STAT 08/19/2024 7:46 AM CDT PREPARE RBC STAT 08/19/2024 7:36 AM CDT B CHECK SAMPLE STAT 08/19/2024 6:53 AM CDT EGFR STAT 08/19/2024 6:53 AM CDT DIFFERENTIAL AUTO STAT 08/19/2024 6:5 3 AM CDT COMPREHENSIVE METABOLIC PANEL STAT 08/19/2024 6:53 AM CDT CBC WITH AUTO DIFFERENTIAL STAT 08/19/2024 6:53 AM CDT CHANGE BILIARY DRAINAGE CATHETER EXTERNAL OR INTERNAL EXTERNAL Schedule Routine, Read Routine (OP Routine) 08/16/2024 4:34 PM TERRAZZO LAYER Gall bladder inflammation XR CHEST 1 VIEW IP Routine 08/10/2024 9:03 AM TERRAZZO LAYER EGFR Routine 08/10/2024 8:27 AM TER[facility]O LAYER DIFFERENTIAL AUTO Routine 08/10/2024 8:2 7 AM [facility]ER COMPREHENSIVE METABOLIC PANEL Routine 08/10/2024 8:27 AM TER[facility]O LAYER CBC WITH AUTO DIFFERENTIAL Routine 08/10/2024 8:27 AM TER[facility]O LAYER EGFR Routine 08/09/2024 7:36 AM [facility]ER DIFFERENTIAL AUTO Routine 08/09/2024 7:3 6 AM [facility]ER COMPREHENSIVE METABOLIC PANEL Routine 08/09/2024 7:36 AM TERRAZZO LAYER CBC WITH AUTO DIFFERENTIAL Routine 08/09/2024 7:36 AM TER[facility]O LAYER EGFR Routine 08/08/2024 9:18 AM [facility] LAYER DIFFERENTIAL AUTO Routine 08/08/2024 9:1 8 AM TER[facility]O LAYER CRP (ACUTE PHASE) Routine 08/08/2024 9:1 8 AM TER[facility]O LAYER COMPREHENSIVE METABOLIC PANEL Routine 08/08/2024 9:18 AM TER[facility]ZZO LAYER CBC WITH AUTO DIFFERENTIAL Routine 08/08/2024 9:18 AM TER[facility] LAYER VITAMIN B12 Routine 08/08/2024 9:18 AM [facility] LAYER FOLATE Routine 08/08/2024 9:18 AM TER[facility] LAYER IRON PROFILE W/ IBC Routine 08/08/2024 9 :18 AM [facility]ER FERRITIN Routine 08/08/2024 9:18 AM [facility] LAYER VANCOMYCIN LEVEL RANDOM Timed 08/08/2024 9:18 AM TER[facility] LAYER XR CHEST 1 VIEW IP Routine 08/08/2024 8:21 AM TER[facility]O LAYER INFECTION PREVENTION MRSA ONLY (STAPHYLOCOCCUS AUREUS) PCR STAT 08/08/2024 8:04 AM TER[facility]ZZO LAYER INFECTION PREVENTION MRSA ONLY (STAPHYLOCOCCUS AUREUS) PCR STAT 08/07/2024 9:29 AM TER[facility] LAYER MANUAL DIFFERENTIAL Routine 08/07/2024 6 :28 AM TER[facility]O LAYER EGFR Routine 08/07/2024 6:28 AM TERRA[facility]O LAYER DIFFERENTIAL AUTO Routine 08/07/2024 6:2 8 AM TERRAZZO LAYER CBC WITH AUTO DIFFERENTIAL Routine 08/07/2024 6:28 AM [facility] LAYER PHOSPHORUS Routine 08/07/2024 6:28 AM [facility] L[facility]ER MAGNESIUM Routine 08/07/2024 6:28 AM [facility] LAYER COMPREHENSIVE METABOLIC PANEL Routine 08/07/2024 6:28 AM TER[facility] LAYER VANCOMYCIN LEVEL RANDOM Timed 08/07/2024 6:28 AM TERRA[facility]O LAYER US KIDNEY COMPLETE IP Routine 08/06/2024 4: 48 PM [facility] L[facility]ER URINALYSIS, MICROSCOPIC ONLY Routine 08/06/2024 1:54 PM [facility]ER SODIUM, URINE, RANDOM Routine 08/06/2024 1:54 PM [facility] L[facility]ER CREATININE, URINE, RANDOM Routine 08/06/2024 1:54 PM [facility] L[facility]ER URINALYSIS AND REFLEX TO MICROSCOPIC AND CULTURE Routine 08/06/2024 1:54 PM [facility]ER PNEUMONIA PCR WITH AEROBIC CULTURE AND GRAM STAIN Routine 08/06/2024 1:28 PM [facility]ER TROPONIN T HIGH-SENSITIVITY 6-HOUR Timed 08/06/2024 12:12 PM [facility]ER LEGIONELLA ANTIGEN, URINE Routine 08/06/2024 12:06 PM [facility]ER STREP PNEUMONIAE AG, URINE Routine 08/06/2024 12:06 PM [facility]ER TROPONIN T HIGH-SENSITIVITY 4-HR Timed 08/06/2024 10:28 AM [facility] LAYER URINALYSIS, MICROSCOPIC ONLY STAT 08/06/2024 8:32 AM TER[facility] LAYER TROPONIN T HIGH-SENSITIVITY 2-HOUR Timed 08/06/2024 8:32 AM TER[facility] LAYER URINE CULTURE STAT 08/06/2024 8:32 AM [facility]ER URINALYSIS AND REFLEX TO MICROSCOPIC AND CULTURE STAT 08/06/2024 8:[address] CHEST PE W CONTRAST ED 08/06/2024 7:57 AM [facility]ER BLOOD CULTURE STAT 08/06/2024 6:47 AM [facility] LAYER XR CHEST 1 VIEW ED 08/06/2024 6:43 AM [facility]ER BLOOD CULTURE STAT 08/06/2024 6:43 AM [facility]ER INFLUENZA A/B, RSV, AND COVID-19 PCR STAT 08/06/2024 6:43 AM [facility] LAYER ECG 12-LEAD STAT 08/06/2024 6:37 AM [facility]ER COMPREHENSIVE METABOLIC PANEL Routine 08/06/2024 6:37 AM [facility]ER EGFR Routine 08/06/2024 6:37 AM [facility]ER MANUAL DIFFERENTIAL STAT 08/06/2024 6 :37 AM TER[facility] LAYER PRO B-TYPE NATRIURETIC PEPTIDE STAT 08/06/2024 6:37 AM TERRA[facility]O LAYER TROPONIN T HIGH-SENSITIVITY SERIES (BASELINE, 2HR, 4HR, 6HR) Routine 08/06/2024 6:37 AM [facility] LAYER SEPSIS LACTATE WITH REFLEX STAT 08/06/2024 6:37 AM TER[facility]O LAYER CBC WITH AUTO DIFFERENTIAL STAT 08/06/2024 6:37 AM [facility]ER HEPATITIS C RNA, QUANTITATIVE, PCR Routine 04/14/2018 9:10 AM CDT from Last 3 Months or Most Recently Relevant to Health Maintenance Results * IR Change Biliary Drainage Catheter External Or Internal External (09/28/2024 2:12 PM CDT) Anatomical Region Laterality Modality Body N/A X-Ray Angiograph y 09/28/2024 3:25 PM CDT Impressions 09/28/2024 3:25 PM CDT Successful biliary catheter exchange as described above. PLAN: Drain is currently capped. The patient was provided with a spare flush adaptor and Merit gravity drainage bag. The patient will return for interval biliary drainage catheter exchange in 6 weeks. Flush catheter with 10 cc saline slowly (over 30 seconds) once daily. 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 Drain was last exchanged on 08/22/2024. PROVIDER PRESENCE: Jennifer Perry PA-C, was present from the beginning to the end of the procedure. SEDATION: Local anesthesia. TECHNIQUE: The risks, benefits and alternatives were discussed and informed consent was obtained. Prior to beginning the procedure, Fontana Protocol was performed to confirm the patient's [...] anesthesia. The catheter was then divided and a Bentson guidewire in a 5-Paraguayan Kumpe catheter were advanced through the catheter under fluoroscopic monitoring. The existing catheter was exchanged over the wire for a new 18-Paraguayan Haroon internal-external biliary drainage catheter with additional sideholes. Limited contrast injection through the catheter under fluoroscopic monitoring confirmed appropriate position of the last side hole within the biliary tree. The catheter was secured in position using TWO 0-Prolene sutures, a Cath Oral Hygienist securement device, and the drain was capped. A sterile dressing was applied. ESTIMATED BLOOD LOSS: Minimal. CONDITION: Stable. DISCHARGED TO: Recovery and then inpatient unit. FINDINGS: Biliary catheter in appropriate position with good antegrade drainage. Last catheter sidehole is appropriately positioned within the biliary tree. 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 Drain was last exchanged on 08/22/2024. PROVIDER PRESENCE: Jennifer Perry PA-C, was present from the beginning to the end of the procedure. SEDATION: Local anesthesia. TECHNIQUE: The risks, benefits and alternatives were discussed and informed consent was obtained. Prior to beginning the procedure, Fontana Protocol was performed to confirm the patient's [...] anesthesia. The catheter was then divided and a Bentson guidewire in a 5-Paraguayan Kumpe catheter were advanced through the catheter under fluoroscopic monitoring. The existing catheter was exchanged over the wire for a new 18-Paraguayan Haroon internal-external biliary drainage catheter with additional sideholes. Limited contrast injection through the catheter under fluoroscopic monitoring confirmed appropriate position of the last side hole within the biliary tree. The catheter was secured in position using TWO 0-Prolene sutures, a Cath Oral Hygienist securement device, and the drain was capped. A sterile dressing was applied. ESTIMATED BLOOD LOSS: Minimal. CONDITION: Stable. DISCHARGED TO: Recovery and then inpatient unit. FINDINGS: Biliary catheter in appropriate position with good antegrade drainage. Last catheter sidehole is appropriately positioned within the biliary tree. IMPRESSION: Successful biliary catheter exchange as described above. PLAN: Drain is currently capped. The patient was provided with a spare flush adaptor and Merit gravity drainage bag. The patient will return for interval biliary drainage catheter exchange in 6 weeks. Flush catheter with 10 cc saline slowly (over 30 seconds) once daily. [facility] - [phone] Electronically signed by: Jennifer Perry PA-C Nicolasa [facility] IR PROCEDURES Fin al Result * IR Change Biliary Drainage Catheter External Or Internal External (08/22/2024 11:52 AM CDT) Anatomical Region Laterality Modality Body N/A X-Ray Angiograph y 08/22/2024 5:04 PM CDT Impressions 08/22/2024 5:04 PM CDT Successful biliary catheter change as described above. PLAN: The patient will return for interval biliary drainage catheter exchange in 2 months. 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 He presents for exchange. ATTENDING PRESENCE: Howard Douglass MD, the attending radiologist was present from the beginning to the end of the procedure. SEDATION: Procedural sedation was administered under the attending physician's direction and continuous monitoring by a trained nurse specialist who was independent from those actually performing the procedure. Total monitored sedation time was 60 minutes. TECHNIQUE: The risks, benefits and alternatives were discussed and informed consent was obtained. Prior to beginning the procedure, Fontana Protocol was performed to confirm the patient's [...] The catheter was then divided and an MPA catheter and stiff glide wire was advanced through the catheter under fluoroscopic monitoring. The guidewire was removed after the catheter was advanced into the duodenum, intraluminal placement was confirmed with a small hand injection of contrast. The Bentson wire was reintroduced into the catheter and used to gayathri the proximal distal position of the planned drain and proximal sidehole terminating at a peripheral right biliary duct. Through the catheter a 180 cm Super Stiff Amplatz guidewire was advanced into the duodenum. The existing catheter was exchanged over the wire for a new 18-Paraguayan Haroon biliary drainage catheter, sized for length with extra sideholes cut based on the marking Bentson wire. Limited contrast injection through the catheter under fluoroscopic monitoring confirmed appropriate position of the last side hole within the biliary tree. The catheter was secured in position using an Prolene suture and was connected to gravity drainage A sterile dressing was applied. ESTIMATED BLOOD LOSS: Minimal. CONDITION: Stable DISCHARGED TO: patient care division. FINDINGS: The indwelling catheter was found to be retracted slightly. Biliary catheter in appropriate position with good antegrade drainage. 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 He presents for exchange. ATTENDING PRESENCE: Howard Douglass MD, the attending radiologist was present from the beginning to the end of the procedure. SEDATION: Procedural sedation was administered under the attending physician's direction and continuous monitoring by a trained nurse specialist who was independent from those actually performing the procedure. Total monitored sedation time was 60 minutes. TECHNIQUE: The risks, benefits and alternatives were discussed and informed consent was obtained. Prior to beginning the procedure, Fontana Protocol was performed to confirm the patient's [...] The catheter was then divided and an MPA catheter and stiff glide wire was advanced through the catheter under fluoroscopic monitoring. The guidewire was removed after the catheter was advanced into the duodenum, intraluminal placement was confirmed with a small hand injection of contrast. The Bentson wire was reintroduced into the catheter and used to gayathri the proximal distal position of the planned drain and proximal sidehole terminating at a peripheral right biliary duct. Through the catheter a 180 cm Super Stiff Amplatz guidewire was advanced into the duodenum. The existing catheter was exchanged over the wire for a new 18-Paraguayan Haroon biliary drainage catheter, sized for length with extra sideholes cut based on the marking Bentson wire. Limited contrast injection through the catheter under fluoroscopic monitoring confirmed appropriate position of the last side hole within the biliary tree. The catheter was secured in position using an Prolene suture and was connected to gravity drainage A sterile dressing was applied. ESTIMATED BLOOD LOSS: Minimal. CONDITION: Stable DISCHARGED TO: patient care division. FINDINGS: The indwelling catheter was found to be retracted slightly. Biliary catheter in appropriate position with good antegrade drainage. IMPRESSION: Successful biliary catheter change as described above. PLAN: The patient will return for interval biliary drainage catheter exchange in 2 months. Electronically signed by: Howard Douglass MD Shubham Sharma MD IM IR PROCEDURES Final Result * (ABNORMAL) eGFR (08/22/2024 5:00 AM CDT) eGFR 41(L) >=60 mL/min/1. 73 m2 Comment: Interpretive Data Reference Interval Normal >/= 90 mL/min/1.73m2 Mildly decreased* 60 - 89 mL/min/1.73m2 Mildly to moderately decreased 45 - 59 mL/min/1.73m2 Moderately to severely decreased 30 - 44 mL/min/1.73m2 Severely decreased 15 - 29 mL/min/1.73m2 Kidney Failure < 15 mL/min/1.73m2 *Relative to young adult level Estimated glomerular filtration rate is determined by the 2020 CKD-EPI equation recommended by the National Kidney Foundation (A Unifying Approach to GFR Estimation: Recommendations of the NKF-ASK Task Force on Reassessing the Inclusion of Race in Diagnosing Kidney Disease, MARY ANNESSamir 2020). The CKD-EPI equation should not be used for patients with unstable renal function and has not been validated in children and those over 70. Current interpretive data was last reviewed 2021. Blood 08/22/2024 5:00 AM CDT 08/22/2024 8:12 AM CDT us Shubham Sharma MD LAB BLOOD ORDERABLES Final Resul t [facility] [address] Department [place] [address] * (ABNORMAL) Differential, auto (08/22/2024 5:00 AM CDT) Neutrophil abs 6.0 1.5 - 6.5 K/cumm Imm gran abs 0.2(H) 0.0 - 0.1 K/cumm [facility] Lymphocyte abs 0.7(L) 0.8 - 3.3 K/cumm [facility] Monocyte abs 1.2(H) 0.2 - 0.8 K/cumm [facility] Eosinophil abs 0.3 0.0 - 0.5 K/cumm [facility] Basophil abs 0.0 0.0 - 0.1 K/cumm [facility] Neutrophil pct 70.9 % [facility] Comment: Interpretive Data Percent cell count reference ranges are not reported, since discordance with absolute values may lead to misinterpretation of CBC data. Current Interpretive Data was last revised on 2017. Imm gran pct 2.5 % [facility] Comment: Interpretive Data Percent cell count reference ranges are not reported, since discordance with absolute values may lead to misinterpretation of CBC data. Current Interpretive Data was last revised on 2017. Lymphocyte pct 8.3 % [facility] Comment: Interpretive Data Percent cell count reference ranges are not reported, since discordance with absolute values may lead to misinterpretation of CBC data. Current Interpretive Data was last revised on 2017. Monocyte pct 14.4 % [facility] Comment: Interpretive Data Percent cell count reference ranges are not reported, since discordance with absolute values may lead to misinterpretation of CBC data. Current Interpretive Data was last revised on 2017. Eosinophil pct 3.4 % [facility] Comment: Interpretive Data Percent cell count reference ranges are not reported, since discordance with absolute values may lead to misinterpretation of CBC data. Current Interpretive Data was last revised on 2017. Basophil pct 0.5 % [facility] Comment: Interpretive Data Percent cell count reference ranges are not reported, since discordance with absolute values may lead to misinterpretation of CBC data. Current Interpretive Data was last revised on 2017. Blood 08/22/2024 5:00 AM CDT 08/22/2024 7:04 AM CDT us Shubham Sharma MD LAB BLOOD ORDERABLES Final Resul t [facility] [address] Department [place] [address] * (ABNORMAL) CBC with auto differential (08/22/2024 5:00 AM CDT) WBC 8.5 3.8 - 9.9 K/cumm Hgb 8.9(L) 13.0 - 17.5 g/dL [facility] Hct 28.8(L) 38.9 - 50.3 % [facility] Plt 124(L) 150 - 400 K/cumm [facility] MPV 11.7 9.1 - 12.3 fL [facility] RBC 3.02(L) 4.30 - 5.80 M/cumm [facility] MCV 95.4 81.3 - 96.4 fL [facility] MCH 29.5 27.1 - 33.3 pg [facility] MCHC 30.9(L) 32.3 - 35.7 g/dL [facility] RDW CV 15.5(H) 11.1 - 14.9 % [facility] RDW SD 53.8(H) 35.7 - 48.1 fL [facility] NRBC abs 0.00 0.00 - 0.01 K/cumm [facility] Blood 08/22/2024 5:00 AM CDT 08/22/2024 7:04 AM CDT Shubham Sharma MD LAB BLOOD ORDERABLES Final Resul t [facility] [address] Department [place] [address] * (ABNORMAL) Basic metabolic panel (08/22/2024 5:00 AM CDT) Sodium 143 135 - 145 mmol/L Potassium, pl 4.5 3.3 - 4.9 mmol/L [facility] Chloride 111(H) 97 - 110 mmol/L [facility] CO2 20(L) 22 - 32 mmol/L [facility] Anion gap 12 2 - 15 mmol/L [facility] BUN 28(H) 6 - 25 mg/dL [facility] Creatinine 1.74(H) 0.80 - 1.30 mg/dL [facility] Glucose 79 70 - 199 mg/dL [facility] Comment: Interpretive Data Fasting glucose >/= 126 mg/dl is diagnostic for diabetes. Fasting is defined as no caloric intake for at least 8 hours. Fasting glucose between 100 mg/dl to 125 mg/dl is diagnostic of prediabetes. In a patient with classic symptoms of hyperglycemia or hyperglycemic crisis, a random glucose >/= 200 mg/dl is diagnostic for diabetes. In the absence of unequivocal hyperglycemia, results should be confirmed by repeat testing. The classification and Diagnosis of Diabetes Diabetes Care 2021; 46: S19-S40. Current interpretive data was last revised 2022. Calcium 8.5 8.5 - 10.3 mg/dL [facility] Blood 08/22/2024 5:00 AM CDT 08/22/2024 8:12 AM CDT Shubham Sharma MD LAB BLOOD ORDERABLES Final Resul t [facility] [address] Department [place] [address] * CT Abdomen Pelvis W Contrast (08/21/2024 8:09 PM CDT) Anatomical Region Laterality Modality Body N/A Computed Tomogra phy 08/22/2024 6:32 AM CDT Impressions 08/22/2024 6:32 AM CDT 1. Percutaneous biliary drainage catheter in place with ongoing severe intra and extra hepatic bile duct dilatation 2. Tiny cyst in uncinate process of pancreas, question sidebranch intraductal papillary mucinous neoplasm. There is no acute pancreatitis or duct dilatation 3. Stable appearance of the kidneys with no hydroureteronephrosis 4. New pulmonary nodule as detailed above. CT chest follow-up is recommended. Electronically signed by: Keri Valladares M.D. 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 Recent biliary drain exchange. COMPARISON: PET/CT 01/19/2024 FINDINGS: CT abdomen and pelvis was performed with 94 mL Optiray 350 intravenous contrast. There is subpleural atelectasis and peribronchial thickening in the left lower lobe. There is a new irregular nodule in the anterior right lower lobe with extension into the major fissure. This nodule measures 1.3 x 0.6 cm. There is question partial visualization of irregular nodule in the right middle lobe on the 1st image versus volume averaging. CT chest follow-up is recommended. There is trace left base pleural effusion. There is trace pericardial effusion/thickening. Percutaneous catheter extends into the central biliary tract along the common bile duct into the descending duodenum. There is ongoing severe intra and extra hepatic bile duct dilatation. There is no evidence of new liver mass. Call bladder is contracted. Severe common bile duct dilatation with abrupt tapering in the head of the pancreas is again noted. There is atrophy of the pancreas. There is no pancreatic duct dilatation or acute pancreatitis. There appears be a very tiny cyst extending from the medial aspect of the uncinate process on image 59 series 2, not definitely identified on previous MRI of 02/03/2023. Spleen is normal. Adrenal glands are normal. There are stable numerous bilateral renal cysts and bilateral renal calcifications. There is no hydroureteronephrosis. Urinary bladder is incompletely distended. Prostate gland is mildly enlarged. Stomach and duodenum are normal. Small bowel loops are normal. There is oral contrast scattered in the colon. There is no acute bowel inflammation or obstruction. There is no ascites. There are several small gastrohepatic ligament, portal and retroperitoneal lymph nodes with no pathologic lymphadenopathy. There are stable tiny retrocrural lymph nodes. There is trace scattered calcification in the aorta and iliac arteries with no aneurysm. There is normal perfusion of the portal venous system including the SMV and splenic vein. There is a small umbilical hernia containing fat. Inguinal regions are normal. There are advanced degenerative changes at L5-S1 and in the hips. There is stable patchy sclerosis in the pelvis. 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 Recent biliary drain exchange. COMPARISON: PET/CT 01/19/2024 FINDINGS: CT abdomen and pelvis was performed with 94 mL Optiray 350 intravenous contrast. There is subpleural atelectasis and peribronchial thickening in the left lower lobe. There is a new irregular nodule in the anterior right lower lobe with extension into the major fissure. This nodule measures 1.3 x 0.6 cm. There is question partial visualization of irregular nodule in the right middle lobe on the 1st image versus volume averaging. CT chest follow-up is recommended. There is trace left base pleural effusion. There is trace pericardial effusion/thickening. Percutaneous catheter extends into the central biliary tract along the common bile duct into the descending duodenum. There is ongoing severe intra and extra hepatic bile duct dilatation. There is no evidence of new liver mass. Call bladder is contracted. Severe common bile duct dilatation with abrupt tapering in the head of the pancreas is again noted. There is atrophy of the pancreas. There is no pancreatic duct dilatation or acute pancreatitis. There appears be a very tiny cyst extending from the medial aspect of the uncinate process on image 59 series 2, not definitely identified on previous MRI of 02/03/2023. Spleen is normal. Adrenal glands are normal. There are stable numerous bilateral renal cysts and bilateral renal calcifications. There is no hydroureteronephrosis. Urinary bladder is incompletely distended. Prostate gland is mildly enlarged. Stomach and duodenum are normal. Small bowel loops are normal. There is oral contrast scattered in the colon. There is no acute bowel inflammation or obstruction. There is no ascites. There are several small gastrohepatic ligament, portal and retroperitoneal lymph nodes with no pathologic lymphadenopathy. There are stable tiny retrocrural lymph nodes. There is trace scattered calcification in the aorta and iliac arteries with no aneurysm. There is normal perfusion of the portal venous system including the SMV and splenic vein. There is a small umbilical hernia containing fat. Inguinal regions are normal. There are advanced degenerative changes at L5-S1 and in the hips. There is stable patchy sclerosis in the pelvis. 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 IMPRESSION: 1. Percutaneous biliary drainage catheter in place with ongoing severe intra and extra hepatic bile duct dilatation 2. Tiny cyst in uncinate process of pancreas, question sidebranch intraductal papillary mucinous neoplasm. There is no acute pancreatitis or duct dilatation 3. Stable appearance of the kidneys with no hydroureteronephrosis 4. New pulmonary nodule as detailed above. CT chest follow-up is recommended. Electronically signed by: Keri Valladares M.D. Shubham Sharma MD IMG CT PROCEDURES Final Result * IR Change Biliary Drainage Catheter External Or Internal External (08/20/2024 2:15 PM CDT) Anatomical Region Laterality Modality Body N/A X-Ray Angiograph y 08/20/2024 3:46 PM CDT Impressions 08/20/2024 3:46 PM CDT Successful biliary catheter change as described above. PLAN: Drain to remain open to gravity drainage for the next 24 hours. If abdulaziz-catheter leakage significantly improves, the drain may then be capped. Patient was provided with spare drainage bags and caps. The patient will return for interval biliary drainage catheter exchange in 6 weeks. Flush catheter with 10 cc saline slowly (over 30 seconds) once daily. [facility] - [phone] Electronically signed by: Jennifer Perry PA-C Narrative 08/20/2024 3:46 PM CDT EXAMINATION: BILIARY TUBE CHANGE HISTORY/INDICATION: 73-year-old male with mucinous biliary tumor and a lifelong internal-external biliary drain presents for early catheter exchange due to significant and persistent pericatheter leakage since last drain exchange 4 days ago. Due to the leakage, the drain was uncapped and connected to a gravity bag without much output. PROVIDER PRESENCE: Jennifer Perry PA-C, was present from the beginning to the end of the procedure. SEDATION: Conscious sedation was administered to the patient. TECHNIQUE: The risks, benefits and alternatives were discussed and informed consent was obtained. Prior to beginning the procedure, Fontana Protocol was performed to confirm the patient's [...] divided and an Amplatz guidewire in a 65 cm [place] catheter were advanced through the catheter under fluoroscopic monitoring. The existing catheter was exchanged over the wire for a new 18-Paraguayan Haroon internal-external biliary drainage catheter with additional [...] CONDITION: Stable. DISCHARGED TO: Recovery and then inpatient unit. FINDINGS: Biliary catheter in appropriate position with good antegrade drainage. Last catheter sidehole is appropriately positioned within the biliary tree. Procedure Note Jennifer Perry PA - 08/20/2024 EXAMINATION: BILIARY TUBE CHANGE HISTORY/INDICATION: 73-year-old male with mucinous biliary tumor and a lifelong internal-external biliary drain presents for early catheter exchange due to significant and persistent pericatheter leakage since last drain exchange 4 days ago. Due to the leakage, the drain was uncapped and connected to a gravity bag without much output. PROVIDER PRESENCE: Jennifer Perry PA-C, was present from the beginning to the end of the procedure. SEDATION: Conscious sedation was administered to the patient. TECHNIQUE: The risks, benefits and alternatives were discussed and informed consent was obtained. Prior to beginning the procedure, Fontana Protocol was performed to confirm the patient's [...] divided and an Amplatz guidewire in a 65 cm [place] catheter were advanced through the catheter under fluoroscopic monitoring. The existing catheter was exchanged over the wire for a new 18-Paraguayan Haroon internal-external biliary drainage catheter with additional [...] CONDITION: Stable. DISCHARGED TO: Recovery and then inpatient unit. FINDINGS: Biliary catheter in appropriate position with good antegrade drainage. Last catheter sidehole is appropriately positioned within the biliary tree. IMPRESSION: Successful biliary catheter change as described above. PLAN: Drain to remain open to gravity drainage for the next 24 hours. If abdulaziz-catheter leakage significantly improves, the drain may then be capped. Patient was provided with spare drainage bags and caps. The patient will return for interval biliary drainage catheter exchange in 6 weeks. Flush catheter with 10 cc saline slowly (over 30 seconds) once daily. [facility] - [phone] Electronically signed by: Jennifer Perry PA-C us Oliverio Reddy MD IMG IR PROCEDURES Final Resu lt * (ABNORMAL) eGFR (08/20/2024 6:14 AM CDT) eGFR 40(L) >=60 mL/min/1. 73 m2 Comment: Interpretive Data Reference Interval Normal >/= 90 mL/min/1.73m2 Mildly decreased* 60 - 89 mL/min/1.73m2 Mildly to moderately decreased 45 - 59 mL/min/1.73m2 Moderately to severely decreased 30 - 44 mL/min/1.73m2 Severely decreased 15 - 29 mL/min/1.73m2 Kidney Failure < 15 mL/min/1.73m2 *Relative to young adult level Estimated glomerular filtration rate is determined by the 2020 CKD-EPI equation recommended by the National Kidney Foundation (A Unifying Approach to GFR Estimation: Recommendations of the NKF-ASK Task Force on Reassessing the Inclusion of Race in Diagnosing Kidney Disease, JASN 2020). The CKD-EPI equation should not be used for patients with unstable renal function and has not been validated in children and those over 70. Current interpretive data was last reviewed 2021. Blood 08/20/2024 6:14 AM CDT 08/20/2024 6:32 AM CDT us Stan Fitzpatrick MD LAB BLOOD ORDERABLES Final Res ult [facility] [address] Department [place] [address] * (ABNORMAL) Differential, auto (08/20/2024 6:14 AM CDT) Neutrophil abs 6.3 1.5 - 6.5 K/cumm Imm gran abs 0.2(H) 0.0 - 0.1 K/cumm [facility] Lymphocyte abs 0.5(L) 0.8 - 3.3 K/cumm [facility] Monocyte abs 1.4(H) 0.2 - 0.8 K/cumm [facility] Eosinophil abs 0.2 0.0 - 0.5 K/cumm [facility] Basophil abs 0.0 0.0 - 0.1 K/cumm [facility] Neutrophil pct 72.6 % [facility] Comment: Interpretive Data Percent cell count reference ranges are not reported, since discordance with absolute values may lead to misinterpretation of CBC data. Current Interpretive Data was last revised on 2017. Imm gran pct 2.4 % [facility] Comment: Interpretive Data Percent cell count reference ranges are not reported, since discordance with absolute values may lead to misinterpretation of CBC data. Current Interpretive Data was last revised on 2017. Lymphocyte pct 6.3 % [facility] Comment: Interpretive Data Percent cell count reference ranges are not reported, since discordance with absolute values may lead to misinterpretation of CBC data. Current Interpretive Data was last revised on 2017. Monocyte pct 15.9 % [facility] Comment: Interpretive Data Percent cell count reference ranges are not reported, since discordance with absolute values may lead to misinterpretation of CBC data. Current Interpretive Data was last revised on 2017. Eosinophil pct 2.5 % [facility] Comment: Interpretive Data Percent cell count reference ranges are not reported, since discordance with absolute values may lead to misinterpretation of CBC data. Current Interpretive Data was last revised on 2017. Basophil pct 0.3 % [facility] Comment: Interpretive Data Percent cell count reference ranges are not reported, since discordance with absolute values may lead to misinterpretation of CBC data. Current Interpretive Data was last revised on 2017. Blood 08/20/2024 6:14 AM CDT 08/20/2024 6:32 AM CDT us Stan Fitzpatrick MD LAB BLOOD ORDERABLES Final Res ult [facility] [address] Department [place] [address] * (ABNORMAL) CBC with auto differential (08/20/2024 6:14 AM CDT) WBC 8.6 3.8 - 9.9 K/cumm Hgb 8.6(L) 13.0 - 17.5 g/dL [facility] Hct 27.8(L) 38.9 - 50.3 % [facility] Plt 115(L) 150 - 400 K/cumm [facility] Comment:Consistent with prev ious result. MPV 11.0 9.1 - 12.3 fL [facility] RBC 2.88(L) 4.30 - 5.80 M/cumm [facility] MCV 96.5(H) 81.3 - 96.4 fL [facility] MCH 29.9 27.1 - 33.3 pg [facility] MCHC 30.9(L) 32.3 - 35.7 g/dL [facility] RDW CV 15.7(H) 11.1 - 14.9 % [facility] RDW SD 55.1(H) 35.7 - 48.1 fL [facility] NRBC abs 0.00 0.00 - 0.01 K/cumm [facility] Blood 08/20/2024 6:14 AM CDT 08/20/2024 6:32 AM CDT us Stan Fitzpatrick MD LAB BLOOD ORDERABLES Final Res ult [facility] [address] Department [place] [address] * (ABNORMAL) Basic metabolic panel (08/20/2024 6:14 AM CDT) Sodium 142 135 - 145 mmol/L Potassium, pl 4.6 3.3 - 4.9 mmol/L [facility] Chloride 114(H) 97 - 110 mmol/L [facility] CO2 19(L) 22 - 32 mmol/L [facility] Anion gap 9 2 - 15 mmol/L [facility] BUN 31(H) 6 - 25 mg/dL [facility] Creatinine 1.79(H) 0.80 - 1.30 mg/dL [facility] Glucose 73 70 - 199 mg/dL [facility] Comment: Interpretive Data Fasting glucose >/= 126 mg/dl is diagnostic for diabetes. Fasting is defined as no caloric intake for at least 8 hours. Fasting glucose between 100 mg/dl to 125 mg/dl is diagnostic of prediabetes. In a patient with classic symptoms of hyperglycemia or hyperglycemic crisis, a random glucose >/= 200 mg/dl is diagnostic for diabetes. In the absence of unequivocal hyperglycemia, results should be confirmed by repeat testing. The classification and Diagnosis of Diabetes Diabetes Care 202; 46: S19-S40. Current interpretive data was last revised 2022. Calcium 8.1(L) 8.5 - 10.3 mg/dL [facility] Blood 08/20/2024 6:14 AM CDT 08/20/2024 6:32 AM CDT us Stan Fitzpatrick MD LAB BLOOD ORDERABLES Final Res ult Performing Organization Address City/[facility]/ZIP Co de Phone Number [facility] [address] Department [address] [place] [address] * (ABNORMAL) Hemoglobin and hematocrit (08/19/2024 5:59 PM CDT) [facility] Signature Hgb 8.4(L) 13.0 - 17.5 g/dL Hct 27.4(L) 38.9 - 50.3 % [facility] Blood 08/19/2024 5:59 PM CDT 08/19/2024 5:59 PM CDT us Thomas Corral NP LAB BLOOD ORDERABLES Final Result Performing Organization Address [facility] Co de Phone Number [facility] [address] Department [place] [employer] [place] [address] * Transfuse RBC (08/19/2024 12:43 PM CDT) Blood us Oliverio Reddy MD BLOOD TRANSFUSION ORDERABLES Final Result Performing Organization Address [facility] Co de Phone Number [facility] [address] Department [employer] [place] [address] * US Kidney Complete (08/19/2024 9:17 AM CDT) Anatomical Region Laterality Modality Kidney N/A Ultrasound 08/19/2024 9:43 AM CDT Impressions 08/19/2024 9:43 AM CDT No hydronephrosis or shadowing calculi. Findings of polycystic kidney disease again noted. Electronically signed by: Prince Fuentes M.D. Narrative 08/19/2024 9:43 AM CDT EXAMINATION: COMPLETE RENAL SONOGRAM HISTORY: Evaluate for obstructive uropathy. COMPARISON: 08/06/2024 FINDINGS: Right kidney: The right kidney measures 16.5 x 7.9 x 9.1 cm. There are multiple renal cysts present. The largest measures 7.4 x 5.9 x 6.9 cm, with simple internal features. No hydronephrosis. No large shadowing calculi. Left kidney: The left kidney measures 16.8 x 9.8 x 10.8 cm. Multiple renal cysts are again noted. The largest cyst on the left measures 8.4 x 7.0 x 7.5 cm and demonstrates simple internal features. No hydronephrosis. No large shadowing calculi. Bladder: The urinary bladder is decompressed Procedure Note Prince Fuentes MD - 08/19/2024 EXAMINATION: COMPLETE RENAL SONOGRAM HISTORY: Evaluate for obstructive uropathy. COMPARISON: 08/06/2024 FINDINGS: Right kidney: The right kidney measures 16.5 x 7.9 x 9.1 cm. There are multiple renal cysts present. The largest measures 7.4 x 5.9 x 6.9 cm, with simple internal features. No hydronephrosis. No large shadowing calculi. Left kidney: The left kidney measures 16.8 x 9.8 x 10.8 cm. Multiple renal cysts are again noted. The largest cyst on the left measures 8.4 x 7.0 x 7.5 cm and demonstrates simple internal features. No hydronephrosis. No large shadowing calculi. Bladder: The urinary bladder is decompressed IMPRESSION: No hydronephrosis or shadowing calculi. Findings of polycystic kidney disease again noted. Electronically signed by: Prince Fuentes M.D. us Oliverio Reddy MD IMG US PROCEDURES Final Resu lt * XR Chest Pa Lateral 2 Vw (08/19/2024 8:10 AM CDT) Anatomical Region Laterality Modality Body, Chest N/A Computed Radiogr aphy 08/19/2024 8:14 AM CDT Impressions 08/19/2024 8:14 AM CDT Right internal jugular Port-A-Cath terminates in the mid superior vena cava. Stable heart size. Biapical opacities are similar to slightly improved from the prior examination dated 08/10/2024. These are compatible multifocal infection and posttreatment changes in a patient with known lung cancer. No pleural effusions. No pneumothorax. Electronically signed by: Prince Fuentes M.D. Narrative 08/19/2024 8:14 AM CDT EXAMINATION: Two view chest radiograph INDICATION: Recent pneumonia now with PRISCILLA and worsened anemia COMPARISON: 08/10/2024 VIEWS: PA/Lateral Procedure Note Prince Fuentes MD - 08/19/2024 EXAMINATION: Two view chest radiograph INDICATION: Recent pneumonia now with PRISCILLA and worsened anemia COMPARISON: 08/10/2024 VIEWS: PA/Lateral IMPRESSION: Right internal jugular Port-A-Cath terminates in the mid superior vena cava. Stable heart size. Biapical opacities are similar to slightly improved from the prior examination dated 08/10/2024. These are compatible multifocal infection and posttreatment changes in a patient with known lung cancer. No pleural effusions. No pneumothorax. Electronically signed by: Prince Fuentes M.D. Oliverio Reddy MD IMG XR PROCEDURES Final Resu lt * Type and screen (08/19/2024 7:46 AM CDT) ABO Rh A Positive Vanessa, indirect Negative [facility] Blood 08/19/2024 7:46 AM CDT 08/19/2024 7:56 AM CDT Narrative [facility] - 08/19/2024 8:31 AM CDT Has the patient had Daratumumab or Isatuximab in the past 6 months?->Unknown Oliverio Reddy MD LAB BLOOD BANK TEST ORDERABL ES Final Result [facility] [address] Department [place] [address] * Prepare RBC: 1 Units (08/19/2024 7:36 AM CDT) Pathologist [facility] Product code [id number] Unit Number [id number] [facility] Product Blood Type APOS [facility] Dispense Status PRESUMED TRANSFUSED [facility] Blood 08/19/2024 7:36 AM CDT Narrative [facility] - 08/26/2024 10:16 AM CDT Are special requirements needed? (All products are leukoreduced and CMV- safe)- >No Date required:-[id number] LRRBC # of [id number] Reasons:-Cardiovascular disease, Hgb <8 g/dL} Oliverio Reddy MD BLOOD BANK PRODUCT ORDERABLE S Final Result [facility] [address] Department [place] [address] * (ABNORMAL) eGFR (08/19/2024 6:53 AM CDT) [facility] eGFR 33(L) >=60 mL/min/1. 73 m2 Comment: Interpretive Data Reference Interval Normal >/= 90 mL/min/1.73m2 Mildly decreased* 60 - 89 mL/min/1.73m2 Mildly to moderately decreased 45 - 59 mL/min/1.73m2 Moderately to severely decreased 30 - 44 mL/min/1.73m2 Severely decreased 15 - 29 mL/min/1.73m2 Kidney Failure < 15 mL/min/1.73m2 *Relative to young adult level Estimated glomerular filtration rate is determined by the 2020 CKD-EPI equation recommended by the National Kidney Foundation (A Unifying Approach to GFR Estimation: Recommendations of the NKF-ASK Task Force on Reassessing the Inclusion of Race in Diagnosing Kidney Disease, JASN 2020). The CKD-EPI equation should not be used for patients with unstable renal function and has not been validated in children and those over 70. Current interpretive data was last reviewed 2021. Blood 08/19/2024 6:53 AM CDT 08/19/2024 6:57 AM CDT us Oliverio Reddy MD LAB BLOOD ORDERABLES Final R esult [facility] [address] Department [place] [address] * (ABNORMAL) Differential, auto (08/19/2024 6:53 AM CDT) Neutrophil abs 5.7 1.5 - 6.5 K/cumm Imm gran abs 0.2(H) 0.0 - 0.1 K/cumm [facility] Lymphocyte abs 0.5(L) 0.8 - 3.3 K/cumm [facility] Monocyte abs 1.3(H) 0.2 - 0.8 K/cumm [facility] Eosinophil abs 0.1 0.0 - 0.5 K/cumm [facility] Basophil abs 0.0 0.0 - 0.1 K/cumm [facility] Neutrophil pct 72.0 % [facility] Comment: Interpretive Data Percent cell count reference ranges are not reported, since discordance with absolute values may lead to misinterpretation of CBC data. Current Interpretive Data was last revised on 2017. Imm gran pct 3.0 % [facility] Comment: Interpretive Data Percent cell count reference ranges are not reported, since discordance with absolute values may lead to misinterpretation of CBC data. Current Interpretive Data was last revised on 2017. Lymphocyte pct 6.3 % [facility] Comment: Interpretive Data Percent cell count reference ranges are not reported, since discordance with absolute values may lead to misinterpretation of CBC data. Current Interpretive Data was last revised on 2017. Monocyte pct 16.9 % [facility] Comment: Interpretive Data Percent cell count reference ranges are not reported, since discordance with absolute values may lead to misinterpretation of CBC data. Current Interpretive Data was last revised on 2017. Eosinophil pct 1.4 % [facility] Comment: Interpretive Data Percent cell count reference ranges are not reported, since discordance with absolute values may lead to misinterpretation of CBC data. Current Interpretive Data was last revised on 2017. Basophil pct 0.4 % [facility] Comment: Interpretive Data Percent cell count reference ranges are not reported, since discordance with absolute values may lead to misinterpretation of CBC data. Current Interpretive Data was last revised on 2017. Blood 08/19/2024 6:53 AM CDT 08/19/2024 6:57 AM CDT Oliverio Reddy MD LAB BLOOD ORDERABLES Final R esult Performing Organization Address City/[facility]/ZIP Co de Phone Number [facility] [address] [employer] [place], [place] [id number] * Check Sample (08/19/2024 6:53 AM CDT) Pathologist [facility] ABO Rh A Positive MBC HCLL OTHER 08/19/2024 6:53 AM CDT 08/19/2024 7:42 AM CDT Oliverio Reddy MD LAB BLOOD ORDERABLES Final R esult Performing Organization Address City/[facility] Co de Phone Number [facility] [address] [employer] [place] [address] MBC * (ABNORMAL) CBC with auto differential (08/19/2024 6:53 AM CDT) [facility] WBC 7.9 3.8 - 9.9 K/cumm Hgb 7.1(L) 13.0 - 17.5 g/dL [facility] Hct 23.8(L) 38.9 - 50.3 % [facility] Plt 122(L) 150 - 400 K/cumm [facility] MPV 11.3 9.1 - 12.3 fL [facility] RBC 2.43(L) 4.30 - 5.80 M/cumm [facility] MCV 97.9(H) 81.3 - 96.4 fL [facility] MCH 29.2 27.1 - 33.3 pg [facility] MCHC 29.8(L) 32.3 - 35.7 g/dL [facility] RDW CV 16.1(H) 11.1 - 14.9 % [facility] RDW SD 58.3(H) 35.7 - 48.1 fL [facility] NRBC abs 0.00 0.00 - 0.01 K/cumm [facility] Blood 08/19/2024 6:53 AM CDT 08/19/2024 6:57 AM CDT us Oliverio Reddy MD LAB BLOOD ORDERABLES Final R esult [facility] [address] Department [place] [address] * (ABNORMAL) Comprehensive metabolic panel (08/19/2024 6:53 AM CDT) Sodium 142 135 - 145 mmol/L Potassium, pl 4.7 3.3 - 4.9 mmol/L [facility] Chloride 112(H) 97 - 110 mmol/L [facility] CO2 18(L) 22 - 32 mmol/L [facility] Anion gap 12 2 - 15 mmol/L [facility] BUN 38(H) 6 - 25 mg/dL [facility] Creatinine 2.09(H) 0.80 - 1.30 mg/dL [facility] Glucose 79 70 - 199 mg/dL [facility] Comment: Interpretive Data Fasting glucose >/= 126 mg/dl is diagnostic for diabetes. Fasting is defined as no caloric intake for at least 8 hours. Fasting glucose between 100 mg/dl to 125 mg/dl is diagnostic of prediabetes. In a patient with classic symptoms of hyperglycemia or hyperglycemic crisis, a random glucose >/= 200 mg/dl is diagnostic for diabetes. In the absence of unequivocal hyperglycemia, results should be confirmed by repeat testing. The classification and Diagnosis of Diabetes Diabetes Care 2021; 46: S19-S40. Current interpretive data was last revised 2022. Calcium 8.1(L) 8.5 - 10.3 mg/dL [facility] Bilirubin, total 0.7 0.1 - 1.2 mg/dL [facility] Protein, pl 5.7(L) 6.5 - 8.5 g/dL [facility] Albumin 3.2(L) 3.5 - 5.0 g/dL [facility] Alk phos 104 40 - 130 Units/L [facility] ALT 16 7 - 55 Units/L [facility] AST 14 10 - 50 Units/L [facility] Blood 08/19/2024 6:53 AM CDT 08/19/2024 6:57 AM CDT us Oliverio Reddy MD LAB BLOOD ORDERABLES Final R esult [facility] [address] Department [place] [address] * IR Change Biliary Drainage Catheter External Or Internal External (08/16/2024 4:34 PM [facility]) Anatomical Region Laterality Modality Body N/A X-Ray Angiograph y 08/17/2024 7:52 AM [facility] Impressions 08/17/2024 7:52 AM [facility] Successful biliary catheter change as described above. PLAN: The patient will return for interval biliary drainage catheter exchange in 6 weeks. A spare gravity bag and caps were provided to the patient. Flush catheter with 10 cc saline slowly (over 30 seconds) once daily. 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 PROVIDER PRESENCE: Nicolasa Moreira PA-C, was present from the beginning to the end of the procedure. SEDATION: Local anesthesia. TECHNIQUE: The risks, benefits and alternatives were discussed and informed consent was obtained. Prior to beginning the procedure, Font[place] Protocol was performed to confirm the patient's [...] anesthesia. The catheter was then divided and a Bentson guidewire was advanced through the catheter under fluoroscopic monitoring. The existing catheter was exchanged over the wire for a new 18-Paraguayan Haroon internal-external biliary drainage catheter with additional sideholes. Limited contrast injection through the catheter under fluoroscopic monitoring confirmed appropriate position of the last side hole within the biliary tree. The catheter was secured in position using TWO 0-Prolene sutures and was connected to a flush adapter and capped. A sterile dressing was applied. ESTIMATED BLOOD LOSS: Minimal. CONDITION: Stable. DISCHARGED TO: Recovery and then home. FINDINGS: Biliary catheter in appropriate position with good antegrade drainage. Last catheter sidehole is appropriately positioned within the biliary tree. 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 PROVIDER PRESENCE: Nicolasa Moreira PA-C, was present from the beginning to the end of the procedure. SEDATION: Local anesthesia. TECHNIQUE: The risks, benefits and alternatives were discussed and informed consent was obtained. Prior to beginning the procedure, Fontana Protocol was performed to confirm the patient's [...] anesthesia. The catheter was then divided and a Bentson guidewire was advanced through the catheter under fluoroscopic monitoring. The existing catheter was exchanged over the wire for a new 18-Par[place] Haroon internal-external biliary drainage catheter with additional sideholes. Limited contrast injection through the catheter under fluoroscopic monitoring confirmed appropriate position of the last side hole within the biliary tree. The catheter was secured in position using TWO 0-Prolene sutures and was connected to a flush adapter and capped. A sterile dressing was applied. ESTIMATED BLOOD LOSS: Minimal. CONDITION: Stable. DISCHARGED TO: Recovery and then home. FINDINGS: Biliary catheter in appropriate position with good antegrade drainage. Last catheter sidehole is appropriately positioned within the biliary tree. IMPRESSION: Successful biliary catheter change as described above. PLAN: The patient will return for interval biliary drainage catheter exchange in 6 weeks. A spare gravity bag and caps were provided to the patient. Flush catheter with 10 cc saline slowly (over 30 seconds) once daily. [facility] - [phone] Electronically signed by: Nicolasa Moreira PA-C us Jennifer CEDILLO IMG IR PROCEDURES Final Result * XR Chest 1 View (08/10/2024 9:03 AM [facility]) Anatomical Region Laterality Modality Body, Chest N/A Computed Radiogr aphy 08/10/2024 11:2 3 AM [facility] Narrative 08/10/2024 11:27 AM [facility] EXAM DESCRIPTION: XR CHEST 1 VIEW REASON FOR STUDY: dyspnea Onset of SOB 4 days ago TECHNIQUE: Single radiographic view(s) of the chest. COMPARISON: Prior exam 08/08/2024, 08/06/2024, 01/20/2024 FINDINGS: LUNGS: There is hyperinflation of the lungs indicating a background of fairly moderate to prominent emphysematous change. There is dense opacification of the lateral aspect of the left upper lobe and apex quite similar to the immediate prior exam. Linear opacities are seen of the right lung apex with improved aeration in the interval. HEART/MEDIASTINUM: Senescent change of the aorta. Otherwise, normal cardiomediastinal silhouette. LINES/TUBES: Port overlies the right chest with the tip overlying the lower SVC as was previously seen. BONES: No acute osseous abnormality. IMPRESSION: There is dense opacification of the lateral aspect of the left upper lobe and apex quite similar to the immediate prior exam. Findings may reflect pneumonia. Underlying mass difficult to exclude. Follow-up recommended to ensure resolution. Linear opacities are seen of the right lung apex with improved aeration in the interval. Continued attention to this area. Findings superimposed on moderate to prominent emphysematous change. THIS IS AN ELECTRONICALLY VERIFIED FINAL REPORT 08/10/2024 11:27 AM - Electronically signed by Misael BROWNING Report ID: [id number] Reading Location: [id number] Procedure Note Misael Bills MD - 08/10/2024 EXAM DESCRIPTION: XR CHEST 1 VIEW REASON FOR STUDY: dyspnea Onset of SOB 4 days ago TECHNIQUE: Single radiographic view(s) of the chest. COMPARISON: Prior exam 08/08/2024, 08/06/2024, 01/20/2024 FINDINGS: LUNGS: There is hyperinflation of the lungs indicating abackground of fairly moderate to prominent emphysematous change. There is dense opacification of the lateral aspect of the left upper lobe and apex quite similar to the immediate prior exam. Linear opacities are seen of theright lung apex with improved aeration in the interval. HEART/MEDIASTINUM: Senescent change of the aorta. Otherwise, normal cardiomediastinal silhouette. LINES/TUBES: Port overlies the right chest with the tip overlying thelower SVC as was previously seen. BONES: No acute osseous abnormality. IMPRESSION: There is dense opacification of the lateral aspect of the left upper lobeand apex quite similar to the immediate prior exam. Findings may reflect pneumonia. Underlying mass difficult to exclude. Follow-up recommended to ensure resolution. Linear opacities are seen of the right lung apex with improved aerationin the interval. Continued attention to this area. Findings superimposed on moderate to prominent emphysematous change. THIS IS AN ELECTRONICALLY VERIFIED FINAL REPORT 08/10/2024 11:27 AM - Electronically signed by Misael BROWNING Report ID: [id number] Reading Location: [id number] Victor Hugo Delacruz MD IMG XR PROCEDURES Alesia l Result * (ABNORMAL) eGFR (08/10/2024 8:27 AM [facility]) eGFR 53(L) >=60 mL/min/1. 73 m2 Comment: Interpretive Data Reference Interval Normal >/= 90 mL/min/1.73m2 Mildly decreased* 60 - 89 mL/min/1.73m2 Mildly to moderately decreased 45 - 59 mL/min/1.73m2 Moderately to severely decreased 30 - 44 mL/min/1.73m2 Severely decreased 15 - 29 mL/min/1.73m2 Kidney Failure < 15 mL/min/1.73m2 *Relative to young adult level Estimated glomerular filtration rate is determined by the 2020 CKD-EPI equation recommended by the National Kidney Foundation (A Unifying Approach to GFR Estimation: Recommendations of the NKF-ASK Task Force on Reassessing the Inclusion of Race in Diagnosing Kidney Disease, JASN 2020). The CKD-EPI equation should not be used for patients with unstable renal function and has not been validated in children and those over 70. Current interpretive data was last reviewed 2021. Testing performed by: [address] [address] Blood 08/10/2024 8:27 AM [facility] 08/10/2024 8:57 AM [facility] Victor Hugo Delacruz MD LAB BLOOD ORDERABLES F inal Result [facility] [address] Department [place] [address] * (ABNORMAL) Differential, auto (08/10/2024 8:27 AM [facility]) Pathologist [facility] Neutrophil abs 6.1 1.5 - 6.5 K/cumm Comment:Testing performed by : [address] [address] Imm gran abs 0.2(H) 0.0 - 0.1 K/cumm [facility] Comment:Testing performed by : [address] [address] Lymphocyte abs 0.5(L) 0.8 - 3.3 K/cumm [facility] Comment:Testing performed by : [address] [address] Monocyte abs 0.8 0.2 - 0.8 K/cumm [facility] Comment:Testing performed by : [address], [place]., [address] Eosinophil abs 0.0 0.0 - 0.5 K/cumm [facility] Comment:Testing performed by : [address], [place]., [address] Basophil abs 0.0 0.0 - 0.1 [facility] Comment:Testing performed by : [address] [address] Neutrophil pct 80.3 % [facility] Comment: Interpretive Data Percent cell count reference ranges are not reported, since discordance with absolute values may lead to misinterpretation of CBC data. Current Interpretive Data was last revised on 2017. Testing performed by: [address] [address] Imm gran pct 2.2 % [facility] Comment: Interpretive Data Percent cell count reference ranges are not reported, since discordance with absolute values may lead to misinterpretation of CBC data. Current Interpretive Data was last revised on 2017. Testing performed by: [address] [address] Lymphocyte pct 6.2 % [facility] Comment: Interpretive Data Percent cell count reference ranges are not reported, since discordance with absolute values may lead to misinterpretation of CBC data. Current Interpretive Data was last revised on 2017. Testing performed by: [address] [address] Monocyte pct 10.9 % [facility] Comment: Interpretive Data Percent cell count reference ranges are not reported, since discordance with absolute values may lead to misinterpretation of CBC data. Current Interpretive Data was last revised on 2017. Testing performed by: [address] [address] Eosinophil pct 0.1 % [facility] Comment: Interpretive Data Percent cell count reference ranges are not reported, since discordance with absolute values may lead to misinterpretation of CBC data. Current Interpretive Data was last revised on 2017. Testing performed by: [address] [address] Basophil pct 0.3 % [facility] Comment: Interpretive Data Percent cell count reference ranges are not reported, since discordance with absolute values may lead to misinterpretation of CBC data. Current Interpretive Data was last revised on 2017. Testing performed by: [address] [address] Blood 08/10/2024 8:27 AM [facility] 08/10/2024 8:57 AM [facility] us Roland Ross MD LAB BLOOD ORDERABLES Final Result [facility] [address] Department [place] [address] * (ABNORMAL) CBC with auto differential (08/10/2024 8:27 AM [facility]) WBC 7.6 3.8 - 9.9 K/cumm Comment:Testing performed by : [address] [address] Hgb 7.2(L) 13.0 - 17.5 g/dL [facility] Comment:Testing performed by : [address] [address] Hct 23.5(L) 38.9 - 50.3 % [facility] Comment:Testing performed by : [address] [address] Plt 175 150 - 400 K/cumm [facility] Comment:Testing performed by : [address] [address] MPV 11.6 9.1 - 12.3 fL [facility] Comment:Testing performed by : [address] [address] RBC 2.51(L) 4.30 - 5.80 M/cumm [facility] Comment:Testing performed by : [address] [address] MCV 93.6 81.3 - 96.4 fL [facility] Comment:Testing performed by : [address] [address] MCH 28.7 27.1 - 33.3 pg [facility] Comment:Testing performed by : [address] [address] MCHC 30.6(L) 32.3 - 35.7 g/dL [facility] Comment:Testing performed by : [address] [address] RDW CV 16.4(H) 11.1 - 14.9 % [facility] Comment:Testing performed by : [address] [address] RDW SD 55.3(H) 35.7 - 48.1 fL MARTHA HALL Comment:Testing performed by : [address] [address] NRBC abs 0.00 0.00 - 0.01 K/cumm MARTHA HALL Comment:Testing performed by : [address] [address] Blood 08/10/2024 8:27 AM TERRAZZO LAYER 08/10/2024 8:57 AM TERRAZZO LAYER Roland Ross MD LAB BLOOD ORDERABLES Final Result MARTHA [address] [facility] Department [place] [address] * (ABNORMAL) Comprehensive metabolic panel (08/10/2024 8:27 AM TERRAZZO LAYER) Sodium 143 135 - 145 mmol/L Comment:Testing performed by : [address] [address] Potassium, pl 3.4 3.3 - 4.9 mmol/L MARTHA HALL Comment:Testing performed by : [address] [address] Chloride 115(H) 97 - 110 mmol/L MARTHA HALL Comment:Testing performed by : [address] [address] CO2 21(L) 22 - 32 mmol/L MARTHA Comment:Testing performed by : [address] [address] Anion gap 7 2 - 15 mmol/L MARTHA Comment:Testing performed by : [address] [address] BUN 30(H) 6 - 25 mg/dL MARTHA Comment:Testing performed by : [address] [address] Creatinine 1.40(H) 0.80 - 1.30 mg/dL MARTHA Comment:Testing performed by : [address] [address] Glucose 104 70 - 199 mg/dL MARTHA Comment: Interpretive Data Fasting glucose >/= 126 mg/dl is diagnostic for diabetes. Fasting is defined as no caloric intake for at least 8 hours. Fasting glucose between 100 mg/dl to 125 mg/dl is diagnostic of prediabetes. In a patient with classic symptoms of hyperglycemia or hyperglycemic crisis, a random glucose >/= 200 mg/dl is diagnostic for diabetes. In the absence of unequivocal hyperglycemia, results should be confirmed by repeat testing. The classification and Diagnosis of Diabetes Diabetes Care 202; 46: S19-S40. Current interpretive data was last revised 2022. Testing performed by: [address] [address] Calcium 8.8 8.5 - 10.3 mg/dL MARTHA Comment:Testing performed by : [address] [address] Bilirubin, total 0.9 0.1 - 1.2 mg/dL MARTHA Comment:Testing performed by : [address] [address] Protein, pl 6.2(L) 6.5 - 8.5 g/dL MARTHA Comment:Testing performed by : [address] [address] Albumin 3.1(L) 3.5 - 5.0 g/dL MARTHA Comment:Testing performed by : [address] [address] Alk phos 83 40 - 130 Units/L MARTHA HALL Comment:Testing performed by : [address] [address] ALT 6(L) 7 - 55 Units/L MARTHA HALL Comment:Testing performed by : [address] [address] AST 7(L) 10 - 50 Units/L MARTHA HALL Comment:Testing performed by : [address] [address] Blood 08/10/2024 8:27 AM TERRAZZO LAYER 08/10/2024 8:57 AM TERRAZZO LAYER Victor Hugo Delacruz MD LAB BLOOD ORDERABLES F inal Result MARTHA [address] [facility] Department [place] [address] * (ABNORMAL) eGFR (08/09/2024 7:36 AM TERRAZZO LAYER) eGFR 53(L) >=60 mL/min/1. 73 m2 Comment: Interpretive Data Reference Interval Normal >/= 90 mL/min/1.73m2 Mildly decreased* 60 - 89 mL/min/1.73m2 Mildly to moderately decreased 45 - 59 mL/min/1.73m2 Moderately to severely decreased 30 - 44 mL/min/1.73m2 Severely decreased 15 - 29 mL/min/1.73m2 Kidney Failure < 15 mL/min/1.73m2 *Relative to young adult level Estimated glomerular filtration rate is determined by the 2020 CKD-EPI equation recommended by the [employer] Kid[employer] (A Unifying Approach to GFR Estimation: Recommendations of the NKF-ASK Task Force on Reassessing the Inclusion of Race in Diagnosing Kidney Disease, JASN 202). The CKD-EPI equation should not be used for patients with unstable renal function and has not been validated in children and those over 70. Current interpretive data was last reviewed 2021. Testing performed by: [address] [address] Blood 08/09/2024 7:36 AM TERRAZZO LAYER 08/09/2024 7:51 AM TERRAZZO LAYER Victor Hugo Delacruz MD LAB BLOOD ORDERABLES F inal Result [facility] [address] [facility] Department [place] [address] * (ABNORMAL) Differential, auto (08/09/2024 7:36 AM TERRAZZO LAYER) Neutrophil abs 5.4 1.5 - 6.5 K/cumm Comment:Testing performed by : [address] [address] Imm gran abs 0.3(H) 0.0 - 0.1 K/cumm MARTHA Comment:Testing performed by : [address] [address] Lymphocyte abs 0.5(L) 0.8 - 3.3 K/cumm MARTHA Comment:Testing performed by : [address] [address] Monocyte abs 0.9(H) 0.2 - 0.8 K/cumm MARTHA Comment:Testing performed by : [address] [address] Eosinophil abs 0.0 0.0 - 0.5 K/cumm MARTHA Comment:Testing performed by : [address] [address] Basophil abs 0.0 0.0 - 0.1 K/cumm MARTHA Comment:Testing performed by : [address] [address] Neutrophil pct 75.6 % MARTHA Comment: Interpretive Data Percent cell count reference ranges are not reported, since discordance with absolute values may lead to misinterpretation of CBC data. Current Interpretive Data was last revised on 2017. Testing performed by: [address] [address] Imm gran pct 4.1 % MARTHA Comment: Interpretive Data Percent cell count reference ranges are not reported, since discordance with absolute values may lead to misinterpretation of CBC data. Current Interpretive Data was last revised on 2017. Testing performed by: [address] [address] Lymphocyte pct 6.9 % [facility] Comment: Interpretive Data Percent cell count reference ranges are not reported, since discordance with absolute values may lead to misinterpretation of CBC data. Current Interpretive Data was last revised on 2017. Testing performed by: [address] [address] Monocyte pct 13.0 % [facility] Comment: Interpretive Data Percent cell count reference ranges are not reported, since discordance with absolute values may lead to misinterpretation of CBC data. Current Interpretive Data was last revised on 2017. Testing performed by: [address] [address] Eosinophil pct 0.1 % [facility] Comment: Interpretive Data Percent cell count reference ranges are not reported, since discordance with absolute values may lead to misinterpretation of CBC data. Current Interpretive Data was last revised on 2017. Testing performed by: [address] [address] Basophil pct 0.3 % [facility] Comment: Interpretive Data Percent cell count reference ranges are not reported, since discordance with absolute values may lead to misinterpretation of CBC data. Current Interpretive Data was last revised on 2017. Testing performed by: [address] [address] Blood 08/09/2024 7:36 AM TER[facility]ZZO LAYER 08/09/2024 7:53 AM TERRAZZO LAYER us Roland Ross MD LAB BLOOD ORDERABLES Final Result MARTHA HALL [address] [facility] Department [place] [address] * (ABNORMAL) CBC with auto differential (08/09/2024 7:36 AM TERRAZZO LAYER) WBC 7.2 3.8 - 9.9 K/cumm Comment:Testing performed by : [address] [address] Hgb 7.3(L) 13.0 - 17.5 g/dL MARTHA Comment:Testing performed by : [address] [address] Hct 23.8(L) 38.9 - 50.3 % [facility] Comment:Testing performed by : [address] [address] Plt 165 150 - 400 K/cumm [facility] Comment:Testing performed by : [address] [address] MPV 11.4 9.1 - 12.3 fL [facility] Comment:Testing performed by : [address] [address] RBC 2.52(L) 4.30 - 5.80 M/cumm [facility] Comment:Testing performed by : [address] [address] MCV 94.4 81.3 - 96.4 fL [facility] Comment:Testing performed by : [address] [address] MCH 29.0 27.1 - 33.3 pg [facility] Comment:Testing performed by : [address] [address] MCHC 30.7(L) 32.3 - 35.7 g/dL MARTHA Comment:Testing performed by : [address], [address] RDW CV 16.9(H) 11.1 - 14.9 % [facility] Comment:Testing performed by : [address], [address] RDW SD 57.5(H) 35.7 - 48.1 fL [facility] Comment:Testing performed by : [address] [address] NRBC abs 0.00 0.00 - 0.01 K/cumm MARTHA Comment:Testing performed by : [address] [address] Blood 08/09/2024 7:36 AM TERRAZZO LAYER 08/09/2024 7:53 AM TERRAZZO LAYER us Roland Ross MD LAB BLOOD ORDERABLES Final Result [facility] [address] [facility] Department [place] [address] * (ABNORMAL) Comprehensive metabolic panel (08/09/2024 7:36 AM TERRAZZO LAYER) Sodium 141 135 - 145 mmol/L Comment:Testing performed by : [address] [address] Potassium, pl 3.6 3.3 - 4.9 mmol/L MARTHA Comment:Testing performed by : [address] [address] Chloride 112(H) 97 - 110 mmol/L MARTHA Comment:Testing performed by : [address] [address] CO2 19(L) 22 - 32 mmol/L MARTHA Comment:Testing performed by : [address] [address] Anion gap 10 2 - 15 mmol/L MARTHA Comment:Testing performed by : [address] [address] BUN 34(H) 6 - 25 mg/dL MARTHA Comment:Testing performed by : [address] [address] Creatinine 1.40(H) 0.80 - 1.30 mg/dL MARTHA Comment:Testing performed by : [address] [address] Glucose 77 70 - 199 mg/dL MARTHA Comment: Interpretive Data Fasting glucose >/= 126 mg/dl is diagnostic for diabetes. Fasting is defined as no caloric intake for at least 8 hours. Fasting glucose between 100 mg/dl to 125 mg/dl is diagnostic of prediabetes. In a patient with classic symptoms of hyperglycemia or hyperglycemic crisis, a random glucose >/= 200 mg/dl is diagnostic for diabetes. In the absence of unequivocal hyperglycemia, results should be confirmed by repeat testing. The classification and Diagnosis of Diabetes Diabetes Care 202; 46: S19-S40. Current interpretive data was last revised 2022. Testing performed by: [address] [address] Calcium 8.7 8.5 - 10.3 mg/dL MARTHA Comment:Testing performed by : [address] [address] Bilirubin, total 0.9 0.1 - 1.2 mg/dL MARTHA Comment:Testing performed by : [address] [address] Protein, pl 5.8(L) 6.5 - 8.5 g/dL MARTHA Comment:Testing performed by : [address] [address] Albumin 2.8(L) 3.5 - 5.0 g/dL MARTHA Comment:Testing performed by : [address] [address] Alk phos 85 40 - 130 Units/L MARTHA Comment:Testing performed by : [address] [address] ALT 8 7 - 55 Units/L MARTHA Comment:Testing performed by : [address] [address] AST 9(L) 10 - 50 Units/L MARTHA Comment:Testing performed by : [address] [address] Blood 08/09/2024 7:36 AM TERRAZZO LAYER 08/09/2024 7:51 AM TERRAZZO LAYER us Victor Hugo Delacruz MD LAB BLOOD ORDERABLES F inal Result MARTHA [address] [facility] Department [place] [address] * (ABNORMAL) eGFR (08/08/2024 9:18 AM TERRAZZO LAYER) [facility] eGFR 45(L) >=60 mL/min/1. 73 m2 Comment: Interpretive Data Reference Interval Normal >/= 90 mL/min/1.73m2 Mildly decreased* 60 - 89 mL/min/1.73m2 Mildly to moderately decreased 45 - 59 mL/min/1.73m2 Moderately to severely decreased 30 - 44 mL/min/1.73m2 Severely decreased 15 - 29 mL/min/1.73m2 Kidney Failure < 15 mL/min/1.73m2 *Relative to young adult level Estimated glomerular filtration rate is determined by the 2020 CKD-EPI equation recommended by the National Kidney Foundation (A Unifying Approach to GFR Estimation: Recommendations of the NKF-ASK Task Force on Reassessing the Inclusion of Race in Diagnosing Kidney Disease, JASN 2020). The CKD-EPI equation should not be used for patients with unstable renal function and has not been validated in children and those over 70. Current interpretive data was last reviewed 2021. Testing performed by: [address] [address] Blood 08/08/2024 9:18 AM TERRAZZO LAYER 08/08/2024 9:30 AM TERRAZZO LAYER Victor Hugo Delacruz MD LAB BLOOD ORDERABLES F inal Result MARTHA [address] [facility] Department [place] [address] * (ABNORMAL) Differential, auto (08/08/2024 9:18 AM TERRAZZO LAYER) Pathologist [facility] Neutrophil abs 7.3(H) 1.5 - 6.5 K/cumm Comment:Testing performed by : [address] [address] Imm gran abs 0.4(H) 0.0 - 0.1 K/cumm MARTHA Comment:Testing performed by : [address] [address] Lymphocyte abs 0.4(L) 0.8 - 3.3 K/cumm MARTHA Comment:Testing performed by : [address] [address] Monocyte abs 0.7 0.2 - 0.8 K/cumm [facility] Comment:Testing performed by : [address] [address] Eosinophil abs 0.0 0.0 - 0.5 K/cumm [facility] Comment:Testing performed by : [address] [address] Basophil abs 0.0 0.0 - 0.1 K/cumm [facility] Comment:Testing performed by : [address] [address] Neutrophil pct 83.0 % [facility] Comment: Interpretive Data Percent cell count reference ranges are not reported, since discordance with absolute values may lead to misinterpretation of CBC data. Current Interpretive Data was last revised on 2017. Testing performed by: [address] [address] Imm gran pct 4.8 % [facility] Comment: Interpretive Data Percent cell count reference ranges are not reported, since discordance with absolute values may lead to misinterpretation of CBC data. Current Interpretive Data was last revised on 2017. Testing performed by: [address] [address] Lymphocyte pct 4.2 % [facility] Comment: Interpretive Data Percent cell count reference ranges are not reported, since discordance with absolute values may lead to misinterpretation of CBC data. Current Interpretive Data was last revised on 2017. Testing performed by: [address] [address] Monocyte pct 7.6 % [facility] Comment: Interpretive Data Percent cell count reference ranges are not reported, since discordance with absolute values may lead to misinterpretation of CBC data. Current Interpretive Data was last revised on 2017. Testing performed by: [address] [address] Eosinophil pct 0.1 % [facility] Comment: Interpretive Data Percent cell count reference ranges are not reported, since discordance with absolute values may lead to misinterpretation of CBC data. Current Interpretive Data was last revised on 2017. Testing performed by: [address] [address] Basophil pct 0.3 % MARTHA HALL Comment: Interpretive Data Percent cell count reference ranges are not reported, since discordance with absolute values may lead to misinterpretation of CBC data. Current Interpretive Data was last revised on 2017. Testing performed by: [address] [address] Blood 08/08/2024 9:18 AM TERRAZZO LAYER 08/08/2024 9:31 AM TERRAZZO LAYER Roland Ross MD LAB BLOOD ORDERABLES Final Result Performing Organization Address City/[facility]/ZIP Co de Phone Number MARTHA [address] [place] [address] * (ABNORMAL) Iron profile w/ IBC (08/08/2024 9:18 AM TERRAZZO LAYER) Pathologist [facility] Iron 56 50 - 150 mcg/dL Comment:Testing performed by : [address] [address] TIBC 148(L) 250 - 400 mcg/dL MARTHA HALL Comment:Testing performed by : [address] [address] Transferrin saturation 38 20 - 50 % MARTHA Comment:Testing performed by : [address] [address] Blood 08/08/2024 9:18 AM TERRAZZO LAYER 08/08/2024 9:30 AM TERRAZZO LAYER Roland Ross MD LAB BLOOD ORDERABLES Final Result Performing Organization Address City/[facility]/ZIP Co de Phone Number JEANNAAKIL [address] [place] [address] * (ABNORMAL) CBC with auto differential (08/08/2024 9:18 AM TERRAZZO LAYER) Pathologist [facility] WBC 8.8 3.8 - 9.9 K/cumm Comment:Testing performed by : [address] [address] Hgb 7.7(L) 13.0 - 17.5 g/dL MARTHA Comment:Testing performed by : [address], [address] Hct 25.6(L) 38.9 - 50.3 % [facility] Comment:Testing performed by : [address], [address] Plt 172 150 - 400 K/cumm MARTHA Comment:Testing performed by : [address], [address] MPV 11.0 9.1 - 12.3 fL MARTHA Comment:Testing performed by : [address], [address] RBC 2.70(L) 4.30 - 5.80 M/cumm [facility] Comment:Testing performed by : [address], [address] MCV 94.8 81.3 - 96.4 fL [facility] Comment:Testing performed by : [address], [address] MCH 28.5 27.1 - 33.3 pg [facility] Comment:Testing performed by : [address], [address] MCHC 30.1(L) 32.3 - 35.7 g/dL [facility] Comment:Testing performed by : [address], [address] RDW CV 17.2(H) 11.1 - 14.9 % MARTHA Comment:Testing performed by : [address], [address] RDW SD 59.7(H) 35.7 - 48.1 fL [facility] Comment:Testing performed by : [address], [address] NRBC abs 0.00 0.00 - 0.01 K/cumm MARTHA Comment:Testing performed by : [address], [address] Blood 08/08/2024 9:18 AM TERRAZZO LAYER 08/08/2024 9:31 AM TERRAZZO LAYER Roland Ross MD LAB BLOOD ORDERABLES Final Result Performing Organization Address City/[facility] Co de Phone Number JEANNA[address] [place] [address] * (ABNORMAL) CRP (acute phase) (08/08/2024 9:18 AM TERRAZZO LAYER) Pathologist [facility] CRP 51.5(H) <=10.0 mg/L Comment:Testing performed by : [address] [address] Blood 08/08/2024 9:18 AM TERRAZZO LAYER 08/08/2024 9:30 AM TERRAZZO LAYER Victor Hugo Delacruz MD LAB BLOOD ORDERABLES F inal Result Performing Organization Address [facility] Co de Phone Number [address] [address] * Folate (08/08/2024 9:18 AM TERRAZZO LAYER) [facility] Folic acid 6.9 >=5.0 ng/mL Comment:Testing performed by : [address] [address] Blood 08/08/2024 9:18 AM TERRAZZO LAYER 08/08/2024 9:30 AM TERRAZZO LAYER Roland Ross MD LAB BLOOD ORDERABLES Final Result Performing Organization Address City/[facility] Co de Phone Number [address] [address] * (ABNORMAL) Ferritin (08/08/2024 9:18 AM TERRAZZO LAYER) Pathologist [facility] Ferritin 3,718(H) 30 - 400 ng/mL Comment:Testing performed by : [address] [address] Blood 08/08/2024 9:18 AM TERRAZZO LAYER 08/08/2024 9:30 AM TERRAZZO LAYER Roland Ross MD LAB BLOOD ORDERABLES Final Result Performing Organization Address [facility] Co de Phone Number [address] [place] [address] * (ABNORMAL) Vitamin B12 (08/08/2024 9:18 AM TERRAZZO LAYER) Vitamin B12 >2,000(H) 230 - 1,250 pg/mL Comment:Testing performed by : [address] [address] Blood 08/08/2024 9:18 AM TERRAZZO LAYER 08/08/2024 9:30 AM TERRAZZO LAYER Roland Ross MD LAB BLOOD ORDERABLES Final Result Performing Organization Address [facility] de Phone Number [address] [address] * Vancomycin level random (08/08/2024 9:18 AM TERRAZZO LAYER) Vancomycin random 20.8 mcg/mL Comment: Interpretive Data No reference ranges have been established for random drug levels. Current Interpretive Data was last revised on 2020. Testing performed by: [address] [address] Blood 08/08/2024 9:18 AM TERRAZZO LAYER 08/08/2024 9:30 AM TERRAZZO LAYER Alphonso Hutchins MD LAB BLOOD ORDERABLES Alesia l Result Performing Organization Address [facility] Co de Phone Number [address] [address] * (ABNORMAL) Comprehensive metabolic panel (08/08/2024 9:18 AM TERRAZZO LAYER) Sodium 147(H) 135 - 145 mmol/L Comment:Testing performed by : [address] [address] Potassium, pl 3.9 3.3 - 4.9 mmol/L MARTHA Comment:Testing performed by : [address] [address] Chloride 116(H) 97 - 110 mmol/L MARTHA Comment:Testing performed by : [address] [address] CO2 21(L) 22 - 32 mmol/L MARTHA Comment:Testing performed by : [address] [address] Anion gap 10 2 - 15 mmol/L MARTHA Comment:Testing performed by : [address] [address] BUN 35(H) 6 - 25 mg/dL MARTHA Comment:Testing performed by : [address] [address] Creatinine 1.60(H) 0.80 - 1.30 mg/dL MARTHA Comment:Testing performed by : [address] [address] Glucose 88 70 - 199 mg/dL MARTHA Comment: Interpretive Data Fasting glucose >/= 126 mg/dl is diagnostic for diabetes. Fasting is defined as no caloric intake for at least 8 hours. Fasting glucose between 100 mg/dl to 125 mg/dl is diagnostic of prediabetes. In a patient with classic symptoms of hyperglycemia or hyperglycemic crisis, a random glucose >/= 200 mg/dl is diagnostic for diabetes. In the absence of unequivocal hyperglycemia, results should be confirmed by repeat testing. The classification and Diagnosis of Diabetes Diabetes Care 202; 46: S19-S40. Current interpretive data was last revised 2022. Testing performed by: [address] [address] Calcium 9.1 8.5 - 10.3 mg/dL MARTHA Comment:Testing performed by : [address] [place] [address] Bilirubin, total 1.0 0.1 - 1.2 mg/dL MARTHA Comment:Testing performed by : [address] [address] Protein, pl 6.4(L) 6.5 - 8.5 g/dL MARTHA Comment:Testing performed by : [address] [address] Albumin 3.1(L) 3.5 - 5.0 g/dL MARTHA Comment:Testing performed by : [address], [address] Alk phos 95 40 - 130 Units/L MARTHA Comment:Testing performed by : [address], [address] ALT 10 7 - 55 Units/L MARTHA Comment:Testing performed by : [address], [address] AST 11 10 - 50 Units/L MARTHA Comment:Testing performed by : [address], [address] Blood 08/08/2024 9:18 AM TERRAZZO LAYER 08/08/2024 9:30 AM TERRAZZO LAYER Victor Hugo Delacruz MD LAB BLOOD ORDERABLES F inal Result [facility] [address] [facility] Department [place] [address] * XR Chest 1 View (08/08/2024 8:21 AM TERRAZZO LAYER) Anatomical Region Laterality Modality Body, Chest N/A Computed Radiogr aphy 08/08/2024 10:0 6 AM TERRAZZO LAYER Narrative 08/08/2024 10:09 AM TERRAZZO LAYER EXAM DESCRIPTION: XR CHEST 1 VIEW REASON FOR STUDY: dyspnea Onset of SOB 2 days ago; Covid positive TECHNIQUE: Single frontal radiographic view(s) of the chest. COMPARISON: Chest radiograph dated 08/06/2024 and 01/20/2024. Chest CT dated 08/06/2024. FINDINGS: Left upper chest irregular consolidation as seen on the previous chest radiograph dated 08/06/2024. Right upper chest nodular consolidation is again seen. Blunting of the costophrenic angles is similar, pleural thickening and/or trace effusions. Cardiomediastinal silhouette is similar in size. Osseous structures without gross acute interval change. Right chest wall Hjykon-N-Nysa. IMPRESSION: No significant change in appearance of the chest when compared to the previous chest radiograph dated 08/06/2024. THIS IS AN ELECTRONICALLY VERIFIED FINAL REPORT 08/08/2024 10:09 AM - Electronically signed by Bryce Osei D.O. AP: AP Report ID: [id number] Reading Location: [place] [address] Procedure Note Bryce Osei, DO - 08/08/2024 EXAM DESCRIPTION: XR CHEST 1 VIEW REASON FOR STUDY: dyspnea Onset of SOB 2 days ago; Covid positive TECHNIQUE: Single frontal radiographic view(s) of the chest. COMPARISON: Chest radiograph dated 08/06/2024 and 01/20/2024. Chest CTdated 08/06/2024. FINDINGS: Left upper chest irregular consolidation as seen on the previous chest radiograph dated 08/06/2024. Right upper chest nodularconsolidation is again seen. Blunting of the costophrenic angles is similar, pleural thickening and/or trace effusions. Cardiomediastinal silhouette issimilar in size. Osseous structures without gross acute interval change. Rightchest wall Dgcteu-R-Icut. IMPRESSION: No significant change in appearance of the chest when comparedto the previous chest radiograph dated 08/06/2024. THIS IS AN ELECTRONICALLY VERIFIED FINAL REPORT 08/08/2024 10:09 AM - Electronically signed by Bryce Osei D.O. AP: AP Report ID: [id number] Reading Location: [place] [address] Victor Hugo Delacruz MD IMG XR PROCEDURES Alesia l Result * Infection Prevention MRSA Only (Staphylococcus aureus) PCR Nasal (08/08/2024 8:04 AM TERRAZZO LAYER) PCR Scrn, Methicillin resistant Staphylococcus aureus (MRSA) Not Detected Not Detected Comment: Interpretive Data Testing performed using Nucleic Acid Amplification with the Cepheid Xpert MRSA NxG Assay. This assay detects target DNA from mecA, mecC and the SCCmec insertion site of Staphylococcus aureus using Real-Time PCR and has been cleared by the FDA. Performance characteristics have been verified by the [facility]. Current Interpretive Data was last revised on 2023 Testing performed by: [facility], [address] [place] [address]., [address] Nasal 08/08/2024 8:04 AM TERRAZZO LAYER 08/08/2024 8:09 AM TERRAZZO LAYER Victor Hugo Delacrzu MD LAB MICROBIOLOGY - GEN ERAL ORDERABLES Final Result Performing Organization Address [facility] de Phone Number [address] [place] [address] * Infection Prevention MRSA Only (Staphylococcus aureus) PCR Nasal (08/07/2024 9:29 AM TERRAZZO LAYER) [facility] PCR Scrn, Methicillin resistant Staphylococcus aureus (MRSA) Not Detected Not Detected Comment: Interpretive Data Testing performed using Nucleic Acid Amplification with the Cepheid Xpert MRSA NxG Assay. This assay detects target DNA from mecA, mecC and the SCCmec insertion site of Staphylococcus aureus using Real-Time PCR and has been cleared by the FDA. Performance characteristics have been verified by the [facility]. Current Interpretive Data was last revised on 2023 Testing performed by: [facility], [address] [place] [address]., [address] Nasal 08/07/2024 9:29 AM TERRAZZO LAYER 08/07/2024 9:40 AM TERRAZZO LAYER Victor Hugo Delacruz MD LAB MICROBIOLOGY - GEN ERAL ORDERABLES Final Result Performing Organization Address [facility]/State/ZIP Co de Phone Number [place] [address] [facility] Department [place] [address] * (ABNORMAL) eGFR (08/07/2024 6:28 AM TERRAZZO LAYER) eGFR 39(L) >=60 mL/min/1. 73 m2 Comment: Interpretive Data Reference Interval Normal >/= 90 mL/min/1.73m2 Mildly decreased* 60 - 89 mL/min/1.73m2 Mildly to moderately decreased 45 - 59 mL/min/1.73m2 Moderately to severely decreased 30 - 44 mL/min/1.73m2 Severely decreased 15 - 29 mL/min/1.73m2 Kidney Failure < 15 mL/min/1.73m2 *Relative to young adult level Estimated glomerular filtration rate is determined by the 2020 CKD-EPI equation recommended by the National Kidney Foundation (A Unifying Approach to GFR Estimation: Recommendations of the NKF-ASK Task Force on Reassessing the Inclusion of Race in Diagnosing Kidney Disease, JASN 2020). The CKD-EPI equation should not be used for patients with unstable renal function and has not been validated in children and those over 70. Current interpretive data was last reviewed 2021. Testing performed by: [address] [address] Blood 08/07/2024 6:28 AM TERRAZZO LAYER 08/07/2024 7:15 AM TERRAZZO LAYER us Biju Hayes NP LAB BLOOD ORDERABLES Final R esult [place] [id number] [facility] Department [place] [address] * (ABNORMAL) Differential, auto (08/07/2024 6:28 AM TERRAZZO LAYER) Pathologist [facility] Neutrophil abs 5.1 1.5 - 6.5 K/cumm Comment:Testing performed by : [address] [address] Imm gran abs 0.6(H) 0.0 - 0.1 K/cumm MARTHA Comment:Testing performed by : [address] [place] [address] Lymphocyte abs 0.4(L) 0.8 - 3.3 K/cumm CERNER Comment:Testing performed by : [address] [address] Monocyte abs 0.9(H) 0.2 - 0.8 K/cumm CERNER Comment:Testing performed by : [address] [address] Eosinophil abs 0.0 0.0 - 0.5 K/cumm [facility] Comment:Testing performed by : [address] [address] Basophil abs 0.0 0.0 - 0.1 K/cumm [facility] Comment:Testing performed by : [address] [address] Neutrophil pct 73.2 % [facility] Comment: Interpretive Data Percent cell count reference ranges are not reported, since discordance with absolute values may lead to misinterpretation of CBC data. Current Interpretive Data was last revised on 2017. Testing performed by: [address] [address] Imm gran pct 8.0 % [facility] Comment: Interpretive Data Percent cell count reference ranges are not reported, since discordance with absolute values may lead to misinterpretation of CBC data. Current Interpretive Data was last revised on 2017. Testing performed by: [address] [address] Lymphocyte pct 6.1 % [facility] Comment: Interpretive Data Percent cell count reference ranges are not reported, since discordance with absolute values may lead to misinterpretation of CBC data. Current Interpretive Data was last revised on 2017. Testing performed by: [address] [address] Monocyte pct 12.3 % CERNER Comment: Interpretive Data Percent cell count reference ranges are not reported, since discordance with absolute values may lead to misinterpretation of CBC data. Current Interpretive Data was last revised on 2017. Testing performed by: [address] [address] Eosinophil pct 0.1 % CERNER Comment: Interpretive Data Percent cell count reference ranges are not reported, since discordance with absolute values may lead to misinterpretation of CBC data. Current Interpretive Data was last revised on 2017. Testing performed by: [address] [address] Basophil pct 0.3 % MARTHA Comment: Interpretive Data Percent cell count reference ranges are not reported, since discordance with absolute values may lead to misinterpretation of CBC data. Current Interpretive Data was last revised on 2017. Testing performed by: [address] [address] Blood 08/07/2024 6:28 AM TERRAZZO LAYER 08/07/2024 7:15 AM TERRAZZO LAYER us Biju Hayes CLINICAL RESEARCH ANALYST LAB BLOOD ORDERABLES Final R esult MARTHA [facility] Department [place] [address] * (ABNORMAL) CBC with auto differential (08/07/2024 6:28 AM TERRAZZO LAYER) WBC 7.0 3.8 - 9.9 K/cumm Comment:Testing performed by : [address] [address] Hgb 7.5(L) 13.0 - 17.5 g/dL MARTHA HALL Comment:Testing performed by : [address] [address] Hct 24.8(L) 38.9 - 50.3 % MARTHA Comment:Testing performed by : [address] [address] Plt 126(L) 150 - 400 K/cumm MARTHA Comment:Testing performed by : [address] [address] MPV 10.7 9.1 - 12.3 fL MARTHA HALL Comment:Testing performed by : [address] [address] RBC 2.63(L) 4.30 - 5.80 M/cumm MARTHA Comment:Testing performed by : [address] [address] MCV 94.3 81.3 - 96.4 fL MARTHA Comment:Testing performed by : [address] [address] MCH 28.5 27.1 - 33.3 pg MARTHA Comment:Testing performed by : [address] [address] MCHC 30.2(L) 32.3 - 35.7 g/dL MARTHA Comment:Testing performed by : [address] [address] RDW CV 17.2(H) 11.1 - 14.9 % MARTHA Comment:Testing performed by : [address] [address] RDW SD 58.7(H) 35.7 - 48.1 fL MARTHA Comment:Testing performed by : [address] [address] NRBC abs 0.00 0.00 - 0.01 K/cumm MARTHA Comment:Testing performed by : [address] [address] Blood 08/07/2024 6:28 AM TERRAZZO LAYER 08/07/2024 7:15 AM TERRAZZO LAYER us Biju Hayes CLINICAL RESEARCH ANALYST LAB BLOOD ORDERABLES Edited Result - Final [facility] [address] [facility] Department of Laboratories [place], [place] [id number] * (ABNORMAL) Manual Differential (08/07/2024 6:28 AM TERRAZZO LAYER) Differential Auto Comment:Testing performed by : [address] [address] Neutrophil abs 5.1 1.5 - 6.5 K/cumm MARTHA Comment:Testing performed by : [address], [address] Imm gran abs 0.6(H) 0.0 - 0.1 K/cumm [facility] Comment:Testing performed by : [address] [address] Lymphocyte abs 0.4(L) 0.8 - 3.3 K/cumm [facility] Comment:Testing performed by : [address] [address] Monocyte abs 0.9(H) 0.2 - 0.8 K/cumm [facility] Comment:Testing performed by : [address], [place]., [address] Eosinophil abs 0.0 0.0 - 0.5 K/cumm [facility] Comment:Testing performed by : [address] [address] Basophil abs 0.0 0.0 - 0.1 K/cumm [facility] Comment:Testing performed by : [address] [address] Neutrophil pct 73.2 % [facility] Comment: Interpretive Data Percent cell count reference ranges are not reported, since discordance with absolute values may lead to misinterpretation of CBC data. Current Interpretive Data was last revised on 2017. Testing performed by: [address] [address] Imm gran pct 8.0 % [facility] Comment: Interpretive Data Percent cell count reference ranges are not reported, since discordance with absolute values may lead to misinterpretation of CBC data. Current Interpretive Data was last revised on 2017. Testing performed by: [address] [address] Lymphocyte pct 6.1 % CERNER Comment: Interpretive Data Percent cell count reference ranges are not reported, since discordance with absolute values may lead to misinterpretation of CBC data. Current Interpretive Data was last revised on 2017. Testing performed by: [address] [address] Monocyte pct 12.3 % CERNER Comment: Interpretive Data Percent cell count reference ranges are not reported, since discordance with absolute values may lead to misinterpretation of CBC data. Current Interpretive Data was last revised on 2017. Testing performed by: [address] [address] Eosinophil pct 0.1 % MARTHA Comment: Interpretive Data Percent cell count reference ranges are not reported, since discordance with absolute values may lead to misinterpretation of CBC data. Current Interpretive Data was last revised on 2017. Testing performed by: [address] [address] Basophil pct 0.3 % MARTHA Comment: Interpretive Data Percent cell count reference ranges are not reported, since discordance with absolute values may lead to misinterpretation of CBC data. Current Interpretive Data was last revised on 2017. Testing performed by: [address] [address] RBC morphology Consistent with RBC Indicies MARTHA Comment:Testing performed by : [address] [address] Platelet estimate Automated Count Confirmed MARTHA HALL Comment:Testing performed by : [address] [address] Blood 08/07/2024 6:28 AM TERRAZZO LAYER 08/07/2024 7:15 AM TERRAZZO LAYER us Biju Hayes CLINICAL RESEARCH ANALYST LAB BLOOD ORDERABLES Final R esult Performing Organization Address City/[facility]/ZIP Co de Phone Number [address] [employer] [place], [place] [id number] * Phosphorus (08/07/2024 6:28 AM TERRAZZO LAYER) Phosphorus, pl 3.7 2.3 - 4.5 mg/dL Comment:Testing performed by : [address] [address] Blood 08/07/2024 6:28 AM TERRAZZO LAYER 08/07/2024 7:15 AM TERRAZZO LAYER Biju Hayes CLINICAL RESEARCH ANALYST LAB BLOOD ORDERABLES Final R esult Performing Organization Address City/[facility]/ZIP Co de Phone Number JEANNA[address] [place] [address] * Magnesium (08/07/2024 6:28 AM TERRAZZO LAYER) Pathologist [facility] Magnesium 1.9 1.4 - 2.5 mg/dL Comment:Testing performed by : [address] [address] Blood 08/07/2024 6:28 AM TERRAZZO LAYER 08/07/2024 7:15 AM TERRAZZO LAYER us Biju Hayes NP LAB BLOOD ORDERABLES Final R esult Performing Organization Address [facility] Co de Phone Number [address] [address] * Vancomycin level random (08/07/2024 6:28 AM TERRAZZO LAYER) Pathologist [facility] Vancomycin random 14.8 mcg/mL Comment: Interpretive Data No reference ranges have been established for random drug levels. Current Interpretive Data was last revised on 2020. Testing performed by: [address] [address] Blood 08/07/2024 6:28 AM TERRAZZO LAYER 08/07/2024 7:15 AM TERRAZZO LAYER us Alphonso Hutchins MD LAB BLOOD ORDERABLES Alesia l Result Performing Organization Address City/[facility]/ZIP Co de Phone Number [address] [address] * (ABNORMAL) Comprehensive metabolic panel (08/07/2024 6:28 AM TERRAZZO LAYER) Pathologist [facility] Sodium 145 135 - 145 mmol/L Comment:Testing performed by : [address] [address] Potassium, pl 4.1 3.3 - 4.9 mmol/L MARTHA HALL Comment:Testing performed by : [address] [address] Chloride 113(H) 97 - 110 mmol/L MARTHA HALL Comment:Testing performed by : [address] [address] CO2 21(L) 22 - 32 mmol/L MARTHA Comment:Testing performed by : [address] [address] Anion gap 11 2 - 15 mmol/L MARTHA Comment:Testing performed by : [address] [address] BUN 35(H) 6 - 25 mg/dL MARTHA Comment:Testing performed by : [address] [address] Creatinine 1.80(H) 0.80 - 1.30 mg/dL [facility] Comment:Testing performed by : [address] [address] Glucose 80 70 - 199 mg/dL [facility] Comment: Interpretive Data Fasting glucose >/= 126 mg/dl is diagnostic for diabetes. Fasting is defined as no caloric intake for at least 8 hours. Fasting glucose between 100 mg/dl to 125 mg/dl is diagnostic of prediabetes. In a patient with classic symptoms of hyperglycemia or hyperglycemic crisis, a random glucose >/= 200 mg/dl is diagnostic for diabetes. In the absence of unequivocal hyperglycemia, results should be confirmed by repeat testing. The classification and Diagnosis of Diabetes Diabetes Care 202; 46: S19-S40. Current interpretive data was last revised 2022. Testing performed by: [address] [address] Calcium 9.3 8.5 - 10.3 mg/dL MARTHA Comment:Testing performed by : [address] [address] Bilirubin, total 1.2 0.1 - 1.2 mg/dL [facility] Comment:Testing performed by : [address] [address] Protein, pl 6.4(L) 6.5 - 8.5 g/dL MARTHA Comment:Testing performed by : [address] [address] Albumin 3.1(L) 3.5 - 5.0 g/dL MARTHA Comment:Testing performed by : [facility], [address] [place] [address]., [address] Alk phos 104 40 - 130 Units/L MARTHA Comment:Testing performed by : [address] [address] ALT 11 7 - 55 Units/L MARTHA Comment:Testing performed by : [address] [address] AST 11 10 - 50 Units/L MARTHA Comment:Testing performed by : [address] [address] Blood 08/07/2024 6:28 AM TERRAZZO LAYER 08/07/2024 7:15 AM TERRAZZO LAYER us Biju Hayes CLINICAL RESEARCH ANALYST LAB BLOOD ORDERABLES Final R esult MARTHA [address] [facility] Department [place] [address] * US Kidney Complete (08/06/2024 4:48 PM TERRAZZO LAYER) Anatomical Region Laterality Modality Kidney N/A Ultrasound 08/06/2024 6:51 PM TERRAZZO LAYER Narrative 08/06/2024 6:55 PM TERRAZZO LAYER EXAM DESCRIPTION: US KIDNEY COMPLETE REASON FOR STUDY: Kidney failure, acute TECHNIQUE: Ultrasound of the kidneys and urinary bladder was performed with grayscale imaging. COMPARISON: MRI 02/04/2020 FINDINGS: The right kidney measures 12.6 cm in length. Left kidney measures 15 cm in length. Innumerable bilateral renal cysts are again seen replacing the kidneys. Little if any renal parenchyma is clearly identified. The largest cyst is on the left measuring 9 0.7 cm. This is consistent with findings on the prior study. No clear evidence of hydronephrosis is identified. URINARY BLADDER: The urinary bladder, as visualized, appears unremarkable. The bilateral ureteral jets are visualized. OTHER: The prostate gland measures 3.6 X 4.6 X 3.3 cm and protrudes into the bladder. IMPRESSION: Polycystic renal disease is again seen similar to previous. Renal parenchyma is not well visualized. Prominent prostate THIS IS AN ELECTRONICALLY VERIFIED FINAL REPORT 08/06/2024 6:55 PM - Electronically signed by Brian GILLIAM: TAWANA Report ID: [id number] Reading Location: [place] [address] Procedure Note Brian Barlow MD - 08/06/2024 EXAM DESCRIPTION: US KIDNEY COMPLETE REASON FOR STUDY: Kidney failure, acute TECHNIQUE: Ultrasound of the kidneys and urinary bladder was performedwith grayscale imaging. COMPARISON: MRI 02/04/2020 FINDINGS: The right kidney measures 12.6 cm in length. Left kidneymeasures 15 cm in length. Innumerable bilateral renal cysts are again seenreplacing the kidneys. Little if any renal parenchyma is clearly identified. The largest cyst is on the left measuring 9 0.7 cm. This is consistent with findings on the prior study. No clear evidence of hydronephrosis is identified. URINARY BLADDER: The urinary bladder, as visualized, appearsunremarkable. The bilateral ureteral jets are visualized. OTHER: The prostate gland measures 3.6 X 4.6 X 3.3 cm and protrudes intothe bladder. IMPRESSION: Polycystic renal disease is again seen similar to previous.Renal parenchyma is not well visualized. Prominent prostate THIS IS AN ELECTRONICALLY VERIFIED FINAL REPORT 08/06/2024 6:55 PM - Electronically signed by Brian GILLIAM: TAWANA Report ID: [id number] Reading Location: [place] [address] us Biju Hayes CLINICAL RESEARCH ANALYST IMG US PROCEDURES Final Resu lt * (ABNORMAL) Urinalysis reflex to microscopic and culture Urine, clean voided (08/06/2024 1:54 PM TERRAZZO LAYER) Color, ur Yellow Yellow Comment:Testing performed by : [facility], [address] [place] [address]., [address] Clarity, ur Clear Clear MARTHA Comment:Testing performed by : [address] [address] Specific gravity, ur 1.027 1.003 - 1.030 MARTHA Comment:Testing performed by : [facility], [address] [place] [address], [place]., [address] pH, urine 5.5 MARTHA Comment: Interpretive Data U rine pH is affected by diet, medications, systemic acid-base disturbances, and renal tubular function. pH may affect urinary stone formation. For example, urine pH below 6.0 may help reduce the tendency for calcium phosphate stones and pH greater than 6.0 may reduce the tendency for uric acid stone formation. Source: [facility] Five9 Current Interpretive Data was last revised on 2017 Testing performed by: [facility], [address] [place] [address], [place]., [address] Protein, ur ql 1+(A) Negative MARTHA Comment:Testing performed by : [address], [place]., [address] Glucose, ur ql Negative Negative MARTHA Comment:Testing performed by : [address], [place]., [address] Ketones, ur 1+(A) Negative MARTHA Comment:Testing performed by : [address], [place]., [address] Bilirubin, ur Negative Negative MARTHA Comment:Testing performed by : [address], [place]., [address] Blood, ur 1+(A) Negative MARTHA Comment:Testing performed by : [address], [place]., [address] Urobilinogen, ur <2.0 <2.0 mg/dL MARTHA Comment:Testing performed by : [address], [place]., [address] Nitrite, ur Negative Negative MARTHA Comment:Testing performed by : [address], [place]., [address] Leukocyte esterase, ur 1+(A) Negative MARTHA Comment:Testing performed by : [address], [place]., [address] UA reflex comment Reflex to microscopic UA will be performed. MARTHA Comment:Testing performed by : [address], [place]., [address] Urine, clean voided 08/06/2024 1:54 PM TERRAZZO LAYER 08/06/2024 2:05 PM TERRAZZO LAYER Biju Hayes NP LAB MICROBIOLOGY - GENERAL O RDERABLES Final Result Performing Organization Address [facility] Co de Phone Number MARTHA [address] [address] * Sodium, urine, random (08/06/2024 1:54 PM TERRAZZO LAYER) Sodium, ur 81 mmol/L Comment: Interpretive Data No reference range established. Current interpretive data was last revised 2018. Urine 08/06/2024 1:54 PM TERRAZZO LAYER 08/06/2024 4:41 PM TERRAZZO LAYER Biju Hayes NP LAB URINE ORDERABLES Final R esult Performing Organization Address [facility] Co de Phone Number JEANNA[address] [address] * Creatinine, urine, random (08/06/2024 1:54 PM TERRAZZO LAYER) Creatinine Ur 50.7 mg/dL Comment: Interpretive Data No reference range established. Current interpretive data was last revised 2018. Testing performed by: [address] [address] Urine 08/06/2024 1:54 PM TERRAZZO LAYER 08/06/2024 2:07 PM TERRAZZO LAYER Biju Hayes NP LAB URINE ORDERABLES Final R esult Performing Organization Address [facility] Co de Phone Number JEANNA[address] [address] * (ABNORMAL) Urinalysis, microscopic only (08/06/2024 1:54 PM TERRAZZO LAYER) WBC, ur 6-10(A) 0 - 5 /HPF Comment:Testing performed by : [address] [address] RBC, ur 11-20(A) 0 - 2 /HPF MARTHA Comment:Testing performed by : [address] [address] Epithelial cells, squamous, ur 6-10(A) 0 - 5 /HPF MARTHA Comment:Testing performed by : [address] [address] Mucous, ur Present(A) MARTHA Comment:Testing performed by : [address] [address] Culture Reflex Comment Reflex conditions for urine culture (WBC >10) not met. MARTHA Comment:Testing performed by : [address] [address] Urine, clean voided 08/06/2024 1:54 PM TERRAZZO LAYER 08/06/2024 2:05 PM TERRAZZO LAYER Biju Hayes CLINICAL RESEARCH ANALYST LAB URINE ORDERABLES Final R esult MARTHA [address] [facility] Department [place] [address] * (ABNORMAL) Pneumonia PCR with aerobic culture and Gram stain Sputum (08/06/2024 1:28 PM TERRAZZO LAYER) Direct Specimen Exam Stain: Abundant squamous epithelial cells seen indicating excessive oropharyngeal contamination. Culture will not be processed further. Please submit another specimen. Smear results called to and read back by: Mary Ann Lucas MLS [phone] on 08/06/2024 21:10:37 by: Geovanna Mcclain MT Results phoned to and read back by: [id number] on 08/06/2024 22:55:25 by: [id number] Comment:Testing performed by : [facility], [address] [facility] [place] [facility] [place]., [address] Direct Specimen Exam Molecular Analysis: Abundant squamous epithelial cells observed on Gram stain. Specimen will not be processed for rapid molecular analysis. MARTHA HALL Comment:Testing performed by : [facility], [address] [place]., [address] Report Final Report: This is the final report. (.) MARTHA HALL Comment:Testing performed by : [facility], [address] [place]., [address] Sputum 08/06/2024 1:28 PM TERRAZZO LAYER 08/06/2024 6:20 PM TERRAZZO LAYER Narrative MARTHA HALL - 08/07/2024 7:37 AM TERRAZZO LAYER When rapid molecular testing results are reported, testing completed using the [employer] FilmArray Pneumonia Panel. This molecular assay detects: Acinetobacter calcoaceticus-baumannii complex, Enterobacter cloacae complex, Escherichia coli, Haemophilus influenzae, Enterobacter (Klebsiella) aerogenes, Klebsiella oxytoca, Klebsiella pneumoniae group, Moraxella catarrhalis, Proteus spp., Pseudomonas aeruginosa, Serratia marcescens, Staphylococcus aureus, Streptococcus agalactiae, Streptococcus pneumoniae, and Streptococcus pyogenes. These bacteria are detected and reported semi-quantitatively with bins representing approximately 10^4, 10^5, 10^6, or greater than or equal to 10^7 genomic copies of bacterial nucleic acid per mL (copies/mL) of specimen. These quantities are reported to aid in estimating the relative abundance of organism(s) detected within the specimen and to correlate these results with culture results. For Staphylococcus aureus, mecA/C and MREJ genes are evaluated to predict methicillin resistance or susceptibility. For Gram-negative bacteria, the beta-lactamases CTX-M, IMP, KPC, NDM, VIM and OXA-48-like are evaluated and reported if detected. For Gram-negative organisms, the absence of detection of resistance markers does not exclude resistance. Correlation with final culture results and susceptibility testing is recommended. The FilmArray Pneumonia Panel is cleared by the [place] Food and Drug Administration and its performance characteristics have been confirmed by the [facility]. The performance of the FilmArray Pneumonia Panel has not been established for monitoring treatment of infection and bacterial nucleic acids may persist independent of organism viability. us Biju Hayes NP LAB MICROBIOLOGY - GENERAL O RDERABLES Final Result MARTHA HALL [address] [facility] Department [place] [address] * (ABNORMAL) Troponin T high-sensitivity 6-hour (08/06/2024 12:12 PM TERRAZZO LAYER) Trop T hs 116(H) <=22 ng/L Comment: Interpretive Data For further hscTnT resources including the diagnostic algorithm and an aid in interpretation, copy and paste this link: https://nrl.testcatalog.org/show/hsTrop Current Interpretive Data last revised 2020. Testing performed by: [facility], [address] [place] [address]., [address] Trop T hs pct delta -10 % MARTHA Comment:Testing performed by : [address] [address] Trop T hs interp Equivocal MARTHA Comment:Testing performed by : [facility], [address] [place] [address]., [address] Blood 08/06/2024 12:1 2 PM TERRAZZO LAYER 08/06/2024 12:32 PM TERRAZZO LAYER us Jimmy Levy DO LAB BLOOD ORDERABLES Final Result Performing Organization Address [facility] Phone Number [facility] [address] [facility] Department [place] [address] * Strep pneumoniae antigen, urine Urine (08/06/2024 12:06 PM TERRAZZO LAYER) Pathologist [facility] S. pneumoniae Ag Negative Negative Comment: Interpretive Data A positive result is indicative of pneumococcal pneumonia in patients with severe CAP. Cross-reactivity with closely related Streptococcus bacteria may occur. A negative result suggests no current or recent pneumococcal infection but cannot rule out infection with S. pneumoniae. The results of this testing should be used in conjunction with clinical findings and other diagnostic testing, including microbiologic culture. Current Interpretive Data was last revised on 2022 Urine 08/06/2024 12:0 6 PM [facility] 08/06/2024 2:39 PM TER[facility]ER us Biju Hayes CLINICAL RESEARCH ANALYST LAB MICROBIOLOGY - GENERAL O RDERABLES Final Result [facility] [address] Department [place] [address] * Legionella antigen Urine (08/06/2024 12:06 PM TERRAZZO LAYER) Legionella Ag Negative Negative Comment: Interpretive Data This test detects only Legionella pneumophila serogroup 1 antigen. Testing performed by [facility] ([phone]). Current interpretive data was last revised on 2019. Testing performed by: [facility], [address] [place]., [address] Urine 08/06/2024 12:0 6 PM [facility]ER 08/06/2024 5:09 PM [facility]ER us Biju Hayes CLINICAL RESEARCH ANALYST LAB MICROBIOLOGY - GENERAL O RDERABLES Final Result Performing Organization Address [facility] Co de Phone Number JEANNA[address] Department [place] [address] * (ABNORMAL) Troponin T high-sensitivity 4-hour (08/06/2024 10:28 AM TERRA[facility]O LAYER) Pathologist [facility] Trop T hs 117(H) <=22 ng/L Comment: Interpretive Data For further hscTnT resources including the diagnostic algorithm and an aid in interpretation, copy and paste this link: https://nrl.testcatalog.org/show/hsTrop Current Interpretive Data last revised 2020. Testing performed by: [address] [address] Trop T hs pct delta -9 % MARTHA Comment:Testing performed by : [address] [address] Trop T hs interp Equivocal MARTHA Comment:Testing performed by : [address] [address] Blood 08/06/2024 10:2 8 AM [facility] 08/06/2024 10:31 AM [facility]ER us Jimmy Levy DO LAB BLOOD ORDERABLES Final Result Performing Organization Address [facility] Co de Phone Number MARTHA [address] [place] [address] * (ABNORMAL) Troponin T high-sensitivity 2-hour (08/06/2024 8:32 AM [facility]ER) Trop T hs 124(H) <=22 ng/L Comment: Interpretive Data For further hscTnT resources including the diagnostic algorithm and an aid in interpretation, copy and paste this link: https://nrl.testcatalog.org/show/hsTrop Current Interpretive Data last revised 2020. Testing performed by: [address] [address] Trop T hs pct delta -4 % MARTHA Comment:Testing performed by : [address] [address] Trop T hs interp Insignificant MARTHA HALL Comment:Testing performed by : [address] [address] Blood 08/06/2024 8:32 AM [facility]ER 08/06/2024 8:35 AM [facility]ER Jimmy Levy [facility] BLOOD ORDERABLES Final Result Performing Organization Address [facility] de Phone Number MARTHA [address] [place] [address] * (ABNORMAL) Urinalysis reflex to microscopic and culture Urine (08/06/2024 8:32 AM TER[facility]O [facility]ER) Color, ur Yellow Yellow Comment:Testing performed by : [address] [address] Clarity, ur Clear Clear MARTHA HALL Comment:Testing performed by : [address] [address] Specific gravity, ur 1.021 1.003 - 1.030 MARTHA HALL Comment:Testing performed by : [address] [address] pH, urine 5.5 MARTHA HALL Comment: Interpretive Data U rine pH is affected by diet, medications, systemic acid-base disturbances, and renal tubular function. pH may affect urinary stone formation. For example, urine pH below 6.0 may help reduce the tendency for calcium phosphate stones and pH greater than 6.0 may reduce the tendency for uric acid stone formation. Source: [facility] Five9 Current Interpretive Data was last revised on 2017 Testing performed by: [facility], [address] [place] [address]., [address] Protein, ur ql 1+(A) Negative MARTHA Comment:Testing performed by : [address], [place]., [address] Glucose, ur ql Negative Negative MARTHA Comment:Testing performed by : [address] [address] Ketones, ur 1+(A) Negative MARTHA Comment:Testing performed by : [address], [place]., [address] Bilirubin, ur Negative Negative MARTHA Comment:Testing performed by : [address], [place]., [address] Blood, ur 1+(A) Negative MARTHA Comment:Testing performed by : [address], [place]., [address] Urobilinogen, ur <2.0 <2.0 mg/dL MARTHA Comment:Testing performed by : [address] [address] Nitrite, ur Negative Negative MARTHA Comment:Testing performed by : [address] [address] Leukocyte esterase, ur 3+(A) Negative MARTHA Comment:Testing performed by : [address], [place]., [address] UA reflex comment Reflex to microscopic UA will be performed. MARTHA Comment:Testing performed by : [address] [address] Urine 08/06/2024 8:32 AM [facility]ER 08/06/2024 8:42 AM [facility]ER Narrative MARTHA - 08/06/2024 8:49 AM [facility]ER If patient unable to urinate, straight cath Jimmy Levy DO LAB MICROBIOLOGY - GENERAL ORDERABLES Final Result Performing Organization Address [facility] Co de Phone Number MARTHA Shankar [facility] [place] [employer] [address] * (ABNORMAL) Urinalysis, microscopic only (08/06/2024 8:32 AM [facility]ER) WBC, ur 21-50(A) 0 - 5 /HPF Comment:Testing performed by : [facility], [address] [place] [address]., [address] RBC, ur 11-20(A) 0 - 2 /HPF MARTHA Comment:Testing performed by : [address] [address] Epithelial cells, squamous, ur 6-10(A) 0 - 5 /HPF MARTHA Comment:Testing performed by : [address] [address] Yeast, ur 2+(A) MARTHA Comment:Testing performed by : [facility], [address] [place] [address], [place]., [address] Mucous, ur Present(A) MARTHA Comment:Testing performed by : [address] [address] Culture Reflex Comment Reflex to urine culture will be performed. MARTHA Comment:Testing performed by : [address] [address] Urine 08/06/2024 8:32 AM [facility]ER 08/06/2024 8:42 AM [facility]ER us Jimmy Levy DO LAB URINE ORDERABLES Final Result Performing Organization Address City/[facility]/ZIP Co de Phone Number MARTHA [address] [facility] [employer] [place], [place] [id number] * Urine culture Urine (08/06/2024 8:32 AM [facility]ER) Report Final Report: Less than 100,000 colonies/mL (clinically insignificant growth based on current clinical standards) Comment:Testing performed by : [facility], [address] [place] [address] Organism (CLINICALLY INSIGNIFICANT GROWTH MARTHA Urine 08/06/2024 8:32 AM [facility]ER 08/06/2024 11:52 AM [facility]ER Narrative MARTHA - 08/07/2024 12:47 PM [facility]ER Urine culture reflexed based upon urinalysis results. Testing performed by [facility] ([phone]) Jimmy Levy DO LAB MICROBIOLOGY - GENERAL ORDERABLES Final Result MARTHA [address] Department [place] [address] * CT Chest PE (CTA) W Contrast (08/06/2024 7:57 AM TER[facility]O [facility]ER) Anatomical Region Laterality Modality Body N/A Computed Tomogra phy 08/06/2024 8:00 AM [facility]ER Narrative 08/06/2024 8:21 AM [facility]ER EXAM DESCRIPTION: CT CHEST PE (CTA) W CONTRAST REASON FOR STUDY: Pulmonary embolism (PE) suspected, high prob, pneumonia, lung cancer Pt arrived with increase of sob and nose bleed. Pt states he was discharged on Tuesday with a dx of pneumonia. Pt states that the sob has increased. Pt on home 02 via nc at 3L that he has had to increase to 4L. States nosebleed started yesterday. Hx copd TECHNIQUE: CT angiogram of the chest performed with intravenous contrast using helical scanning technique with dynamic intravenous contrast injection. Reconstructed coronal and sagittal MPR images reviewed. All images stored on PACS. 3D MIP images rendered on scanning unit and reviewed at time of interpretation. Automated exposure control was used as a dose optimization technique for this examination. CONTRAST TYPE/DOSE: 100mL of IOVERSOL 350 MG IODINE/ML INTRAVENOUS SYRINGE injected via intravenous COMPARISON: CT chest 01/09/2019 , 12/29/2023 REFERENCE: Per ACR white paper recommendations, unless otherwise specified no follow-up imaging is recommended for incidental renal and adrenal lesions per consensus recommendations based on imaging criteria. Further lab evaluation could be pursued based on clinical findings. FINDINGS: VASCULATURE: No identified pulmonary embolism. The main pulmonary artery measures 3.4 cm diameter. The ascending thoracic aorta measures 4.5 cm at the level of the pulmonary artery bifurcation (axial image 67). HEART: Heart appears normal in size. No pericardial MEDIASTINUM/FLORA: Effusion. No hilar lymph node enlargement by size criteria. LUNGS/PLEURA: Severe pulmonary emphysema. There are consolidations in the lung apices, larger on the left, which are new since 12/29/2023. A masslike area in the medial right upper lobe measures about 2.5 x 0.7 cm (axial image 29) compared with approximately 4 x 2.3 cm at a similar location on 12/29/2023. Adjacent soft tissue no extend out from the mediastinum measuring about 2.8 x 1.6 cm (axial image 132). UPPER ABDOMEN: Partially visualized percutaneous biliary drain. There is intrahepatic biliary ductal dilatation particularly in the left hepatic lobe and pneumobilia. There are numerous cystic lesions throughout the visualized portions of both kidneys. MUSCULOSKELETAL: No acute skeletal abnormality. OTHER: No other significant findings. IMPRESSION: No pulmonary embolism. Medial right upper lobe masslike opacity likely due to reported lung cancer is decreased in size since 12/29/2023. Interval development of new biapical pulmonary consolidations since 12/29/2023 which may be due to pneumonia and/or posttreatment changes depending on history. Short-term follow-up CT in 3 months is recommended. Pulmonary emphysema. Ascending thoracic aortic aneurysm measuring 4.5 cm. Enlarged main pulmonary artery which can be seen with pulmonary hypertension. Partially visualized percutaneous biliary drain and intrahepatic biliary ductal dilatation. Additional findings as above. THIS IS AN ELECTRONICALLY VERIFIED FINAL REPORT 08/06/2024 8:21 AM - Electronically signed by Loi Frias M.D. JR: Report ID: [id number] Reading Location: [id number] Procedure Note Loi Frias MD - 08/06/2024 EXAM DESCRIPTION: CT CHEST PE (CTA) W CONTRAST REASON FOR STUDY: Pulmonary embolism (PE) suspected, high prob,pneumonia, lung cancer Pt arrived with increase of sob and nose bleed. Pt states he wasdischarged on Tuesday with a dx of pneumonia. Pt states that the sob has increased. Pt on home 02 via nc at 3L that he has had to increase to 4L. States nosebleed started yesterday. Hx copd TECHNIQUE: CT angiogram of the chest performed with intravenous contrastusing helical scanning technique with dynamic intravenous contrast injection. Reconstructed coronal and sagittal MPR images reviewed. All images storedon PACS. 3D MIP images rendered on scanning unit and reviewed at time of interpretation. Automated exposure control was used as a doseoptimization technique for this examination. CONTRAST TYPE/DOSE: 100mL of IOVERSOL 350 MG IODINE/ML INTRAVENOUSSYRINGE injected via intravenous COMPARISON: CT chest 01/09/2019 , 12/29/2023 REFERENCE: Per ACR white paper recommendations, unless otherwise specifiedno follow-up imaging is recommended for incidental renal and adrenal lesionsper consensus recommendations based on imaging criteria. Further labevaluation could be pursued based on clinical findings. FINDINGS: VASCULATURE: No identified pulmonary embolism. The mainpulmonary artery measures 3.4 cm diameter. The ascending thoracic aorta measures4.5 cm at the level of the pulmonary artery bifurcation (axial image 67). HEART: Heart appears normal in size. No pericardial MEDIASTINUM/FLORA: Effusion. No hilar lymph node enlargement by size criteria. LUNGS/PLEURA: Severe pulmonary emphysema. There are consolidations inthe lung apices, larger on the left, which are new since 12/29/2023. Amasslike area in the medial right upper lobe measures about 2.5 x 0.7 cm (axialimage 29) compared with approximately 4 x 2.3 cm at a similar location on 12/29/2023. Adjacent soft tissue no extend out from the mediastinummeasuring about 2.8 x 1.6 cm (axial image 132). UPPER ABDOMEN: Partially visualized percutaneous biliary drain. Thereis intrahepatic biliary ductal dilatation particularly in the left hepaticlobe and pneumobilia. There are numerous cystic lesions throughout thevisualized portions of both kidneys. MUSCULOSKELETAL: No acute skeletal abnormality. OTHER: No other significant findings. IMPRESSION: No pulmonary embolism. Medial right upper lobe masslike opacity likely due to reported lungcancer is decreased in size since 12/29/2023. Interval development of newbiapical pulmonary consolidations since 12/29/2023 which may be due to pneumoniaand/or posttreatment changes depending on history. Short-term follow-up CT in 3 months is recommended. Pulmonary emphysema. Ascending thoracic aortic aneurysm measuring 4.5 cm. Enlarged main pulmonary artery which can be seen with pulmonaryhypertension. Partially visualized percutaneous biliary drain and intrahepatic biliary ductal dilatation. Additional findings as above. THIS IS AN ELECTRONICALLY VERIFIED FINAL REPORT 08/06/2024 8:21 AM - Electronically signed by Loi Frias M.D. JR: Report ID: [id number] Reading Location: [id number] us Jimmy Levy DO IMG CT PROCEDURES Final Res ult * Blood culture Blood Peripheral (08/06/2024 6:47 AM TER[facility]O [facility]ER) Report Final Report: No growth Comment:Testing performed by : [facility], [address] [place]., [address] Blood (Peripheral) 08/06/2024 6:47 AM [facility]ER 08/06/2024 9:09 AM [facility] L[facility]ER Narrative [facility] - 08/10/2024 12:00 PM TER[facility]O LAYER From a different site than #1. Draw Blood cultures before administration of Antibiotics Collection->Peripheral 1. Blood cultures are incubated for 4 days on a continuously monitored blood culture system. The first report of a negative culture is issued within 24 hours of receipt of the specimen in the laboratory. 2. Positive culture results are reported as soon as they are detected. 3. The most important factor for detection of microbes in the setting of bloodstream infection is the volume of blood submitted for culture. Failure to collect an optimal blood volume can result in false negative blood cultures. 4. For pediatric patients, the recommended blood volume to collect follows a weight based strategy. See the electronic test catalog for collection instructions. 5. For positive blood cultures, a rapid molecular test may be performed for organism identification using the jluis ePlex blood culture identification panel for gram positive (BCID-GP) and gram negative (BCID-GN) organisms. This nucleic acid amplification test detects microbial DNA in positive blood culture broth. This assay has been cleared by the [place] Food and Drug Administration and its performance characteristics have been verified by the [facility]. For questions about this culture, contact the Microbiology Laboratory at [phone]. Interpretive data was last revised on 24. Jimmy Levy DO LAB MICROBIOLOGY - GENERAL ORDERABLES Final Result MARTHA [address] Department of Laboratories [place], [place] [id number] * (ABNORMAL) Influenza A/B, RSV, and COVID-19 PCR Nasopharyngeal (08/06/2024 6:43 AM TERRAZZO LAYER) [facility] COVID-19 RNA Positive(A) Negative Comment:Testing performed by : [address] [address] Influenza A RNA Negative Negative [facility] Comment:Testing performed by : [address] [address] Influenza B RNA Negative Negative [facility] Comment:Testing performed by : [address] [address] RSV RNA Negative Negative [facility] Comment: Interpretive data: Testing performed by [facility]. This test is performed using the Fever Xpert Xpress CoV-2/Flu/RSV plus assay. This is a multiplex, real-time reverse transcriptase PCR assay intended for the qualitative detection of nucleic acid from SARS-CoV-2, influenza A, influenza B, and respiratory syncytial virus. This assay has been cleared by the [place] Food and Drug administration. The performance characteristics have been verified by the [facility]. Results must be considered in the clinical context, and a negative result does not rule out infection. Interpretive Data last revised 2023 Testing performed by: [address] [address] Nasopharyngeal 08/06/2024 6: 43 AM [facility]ER 08/06/2024 6:54 AM [facility] LAYER Narrative JEANNAAKIL - 08/06/2024 7:34 AM TER[facility]ZZO LAYER Is the Patient experiencing symptoms consistent with COVID?->Yes Jimmy Levy DO LAB MICROBIOLOGY - GENERAL ORDERABLES Final Result MARTHA [facility] [address] [place] [address] * XR Chest 1 Vw Portable (if patient condition/safety warrant portable) (08/06/2024 6:43 AM TERRAZZO LAYER) Anatomical Region Laterality Modality Body, Chest N/A Computed Radiogr aphy 08/06/2024 6:46 AM TER[facility]O LAYER Narrative 08/06/2024 6:53 AM TER[facility]O LAYER EXAM DESCRIPTION: XR CHEST 1 VIEW REASON FOR STUDY: sob Pt states sob today TECHNIQUE: Single radiographic view of the chest. COMPARISON: Chest x-ray of January 20, 2024. FINDINGS: LUNGS/PLEURA: Lungs are well expanded. There are biapical infiltrates significant pleural thickening versus consolidation in the left lung apex, new as compared to previous study. HEART/MEDIASTINUM: Cardiac silhouette is normal. The descending aorta is tortuous. Remaining mediastinal silhouettes are unremarkable. HARDWARE/LINES/TUBES: EKG leads overlie the film. A right port is seen in place with its tip in the expected location of the SVC. BONES: No acute findings. IMPRESSION: Biapical infiltrates, new on the left as compared to previous study. This may represent posttreatment change, recurrence or infection. Recommend clinical correlation. THIS IS AN ELECTRONICALLY VERIFIED FINAL REPORT 08/06/2024 6:53 AM - Electronically signed by Penelope You M.D. SN: SN Report ID: [id number] Reading Location: [id number] Procedure Note Penelope You MD - 08/06/2024 EXAM DESCRIPTION: XR CHEST 1 VIEW REASON FOR STUDY: sob Pt states sob today TECHNIQUE: Single radiographic view of the chest. COMPARISON: Chest x-ray of January 20, 2024. FINDINGS: LUNGS/PLEURA: Lungs are well expanded. There are biapical infiltrates significant pleural thickening versus consolidation in theleft lung apex, new as compared to previous study. HEART/MEDIASTINUM: Cardiac silhouette is normal. The descending aorta is tortuous. Remaining mediastinal silhouettes are unremarkable. HARDWARE/LINES/TUBES: EKG leads overlie the film. A right port isseen in place with its tip in the expected location of the SVC. BONES: No acute findings. IMPRESSION: Biapical infiltrates, new on the left as compared to previous study. This may represent posttreatment change, recurrence or infection. Recommend clinical correlation. THIS IS AN ELECTRONICALLY VERIFIED FINAL REPORT 08/06/2024 6:53 AM - Electronically signed by Penelope You M.D. SN: SN Report ID: [id number] Reading Location: [id number] Jimmy Levy DO IMG XR PROCEDURES Final Res ult * Blood culture Blood Peripheral (08/06/2024 6:43 AM TERRAZZO LAYER) Report Final Report: No growth Comment:Testing performed by : [facility], [address] [place]., [address] Blood (Peripheral) 08/06/2024 6:43 AM TER[facility]ZZO LAYER 08/06/2024 9:09 AM TER[facility]ZZO LAYER Narrative MARTHA - 08/10/2024 12:00 PM TERRAZZO LAYER Draw Blood cultures before administration of Antibiotics Collection->Peripheral 1. Blood cultures are incubated for 4 days on a continuously monitored blood culture system. The first report of a negative culture is issued within 24 hours of receipt of the specimen in the laboratory. 2. Positive culture results are reported as soon as they are detected. 3. The most important factor for detection of microbes in the setting of bloodstream infection is the volume of blood submitted for culture. Failure to collect an optimal blood volume can result in false negative blood cultures. 4. For pediatric patients, the recommended blood volume to collect follows a weight based strategy. See the electronic test catalog for collection instructions. 5. For positive blood cultures, a rapid molecular test may be performed for organism identification using the jluis ePlex blood culture identification panel for gram positive (BCID-GP) and gram negative (BCID-GN) organisms. This nucleic acid amplification test detects microbial DNA in positive blood culture broth. This assay has been cleared by the [place] Food and Drug Administration and its performance characteristics have been verified by the [facility]. For questions about this culture, contact the Microbiology Laboratory at [phone]. Interpretive data was last revised on 24. Jimmy Levy DO LAB MICROBIOLOGY - GENERAL ORDERABLES Final Result Performing Organization Address [facility]/ZIP Co de Phone Number MARTHA [address] Department [place] [address] * ECG 12 lead (08/06/2024 6:37 AM TERRAZZO LAYER) Ventricular Rate EKG/Min 116 BPM [facility] Atrial Rate 116 BPM [facility] [place]-Interval (MSEC) [address] [facility] QRS-Interval (MSEC) [address] [facility] QT-Interval (MSEC) 336 ms [facility] QTc 467 ms [facility] P [place] 72 degrees [facility] R [place] 11 degrees [facility] T [place] 60 degrees [facility] Diagnosis Sinus tachycardia Otherwise normal ECG When compared with ECG of 20-JAN-2024 06:39, No significant change was found Confirmed by MAI MONTANA M.D. ([id number]) on 08/06/2024 11:22:49 AM [facility] 08/06/2024 6:37 AM [facility] LAYER 08/06/2024 11:22 AM TER[facility]ZZO LAYER Jimmy Levy DO ECG ORDERABLES Final Resul t Performing Organization Address [facility] Co de Phone Number [facility] * (ABNORMAL) Troponin T high-sensitivity series (baseline, 2hr, 4hr, 6hr) (08/06/2024 6:37 AM TERRAZZO LAYER) Trop T hs 129(H) <=22 ng/L Comment: Interpretive Data For further hscTnT resources including the diagnostic algorithm and an aid in interpretation, copy and paste this link: https://nrl.testcatalog.org/show/hsTrop Current Interpretive Data last revised 2020. Testing performed by: [facility], [address] [place] [address]., [address] Blood 08/06/2024 6:37 AM TER[facility]ZZO LAYER 08/06/2024 6:41 AM TERRAZZO LAYER Jimmy Levy LAB BLOOD ORDERABLES Final Result Performing Organization Address [facility] Co de Phone Number JEANNA[address] [address] * Sepsis Lactate w/ Reflex (08/06/2024 6:37 AM TERRAZZO LAYER) Pathologist [facility] Sepsis Lactate 0.8 0.7 - 2.0 mmol/L Comment:Testing performed by : [facility], [address] [place] [address]., [id number] Blood 08/06/2024 6:37 AM TER[facility]O LAYER 08/06/2024 6:41 AM TERRAZZO LAYER Jimmy Levy LAB BLOOD ORDERABLES Final Result Performing Organization Address [facility] Phone Number JEANNA[address] [address] * (ABNORMAL) eGFR (08/06/2024 6:37 AM TERRAZZO LAYER) Pathologist [facility] eGFR 37(L) >=60 mL/min/1. 73 m2 Comment: Interpretive Data Reference Interval Normal >/= 90 mL/min/1.73m2 Mildly decreased* 60 - 89 mL/min/1.73m2 Mildly to moderately decreased 45 - 59 mL/min/1.73m2 Moderately to severely decreased 30 - 44 mL/min/1.73m2 Severely decreased 15 - 29 mL/min/1.73m2 Kidney Failure < 15 mL/min/1.73m2 *Relative to young adult level Estimated glomerular filtration rate is determined by the 2020 CKD-EPI equation recommended by the National Kidney Foundation (A Unifying Approach to GFR Estimation: Recommendations of the NKF-ASK Task Force on Reassessing the Inclusion of Race in Diagnosing Kidney Disease, JASN 2020). The CKD-EPI equation should not be used for patients with unstable renal function and has not been validated in children and those over 70. Current interpretive data was last reviewed 2021. Testing performed by: [facility], [address] [place] [address]., [address] Blood 08/06/2024 6:37 AM TERRAZZO LAYER 08/06/2024 6:41 AM TERRAZZO LAYER Jimmy Levy DO LAB BLOOD ORDERABLES Final Result Performing Organization Address City/State/[facility] Co de Phone Number MARTHA [address] [facility] Department [place] [address] * (ABNORMAL) Pro B-type natriuretic peptide (08/06/2024 6:37 AM TERRAZZO LAYER) NT-proBNP 2,102(H) <=300 pg/mL Comment: Interpretive Comments: A. Dyspnea in Acute Care Setting All Ages: < 300 pg/ml, acute heart failure unlikely. < 50 yrs: 300 - 450 pg/ml, further investigation warranted. > 450 pg/ml, acute heart failure likely. 50 - 74 yrs: 300 - 900 pg/ml, further investigation warranted. > 900 pg/ml, acute heart failure likely . > or = 75 yrs: 450 - 1800 pg/ml, further investigation warranted. > 1800 pg/ml, acute heart failure likely. B. Non-acute Setting < 75 yrs < 125 pg/ml, rules out heart failure. > or = 125 pg/ml, further investigation warranted. > or = 75 yrs < 450 pg/ml, rules out heart failure. > or = 450 pg/ml, further investigation warranted. - Knowledge of each individual patient's NT-proBNP range may be more useful than using similar cut-points for every patient. Please note that marked elevations in NT-proBNP levels may be observed in state other than Left Ventricular Congestive Failure, including: acute coronary syndromes, right heart strain/failure (including pulmonary embolism and cor pulmonale), critical illness, renal failure, as well as advanced age. - References: 1. Veda RODGERS et.al. Eur Heart J. 2006:27:330-337. 2. Som RW, Alejo AM. J. AM Che Cardiol: Cardiovasc Imag. 2009;2: 216- 225. Interpretive Data Last Revised Date: 2018. Testing performed by: [address] [address] Blood 08/06/2024 6:37 AM TERRAZZO LAYER 08/06/2024 6:41 AM TERRAZZO LAYER us Jimmy Levy DO LAB BLOOD ORDERABLES Final Result MARTHA [address] [facility] Department [place] [address] * (ABNORMAL) CBC with auto differential (08/06/2024 6:37 AM TERRAZZO LAYER) WBC 10.0(H) 3.8 - 9.9 K/cumm Comment:Testing performed by : [address] [address] Hgb 7.8(L) 13.0 - 17.5 g/dL MARTHA Comment:Testing performed by : [address] [address] Hct 25.4(L) 38.9 - 50.3 % MARTHA Comment:Testing performed by : [address] [address] Plt 122(L) 150 - 400 K/cumm MARTHA Comment:Testing performed by : [address] [address] MPV 11.0 9.1 - 12.3 fL MARTHA Comment:Testing performed by : [address] [address] RBC 2.71(L) 4.30 - 5.80 M/cumm MARTHA Comment:Testing performed by : [address] [address] MCV 93.7 81.3 - 96.4 fL MARTHA Comment:Testing performed by : [address] [address] MCH 28.8 27.1 - 33.3 pg MARTHA HALL Comment:Testing performed by : [address] [address] MCHC 30.7(L) 32.3 - 35.7 g/dL MARTHA HALL Comment:Testing performed by : [address] [address] RDW CV 17.2(H) 11.1 - 14.9 % MARTHA HALL Comment:Testing performed by : [address] [address] RDW SD 58.2(H) 35.7 - 48.1 fL MARTHA Comment:Testing performed by : [address] [address] NRBC abs 0.00 0.00 - 0.01 K/cumm MARTHA Comment:Testing performed by : [address] [address] Blood 08/06/2024 6:37 AM TERRAZZO LAYER 08/06/2024 6:41 AM TERRAZZO LAYER Jimmy Levy DO LAB BLOOD ORDERABLES Edited Result - Final [facility] [address] [facility] [address] Department [place] [address] * (ABNORMAL) Manual Differential (08/06/2024 6:37 AM TERRAZZO LAYER) Differential Manual Comment:Testing performed by : [address] [address] Cells Counted 100 MARTHA Comment:Testing performed by : [address] [address] Neutrophil abs 9.1(H) 1.5 - 6.5 K/cumm MARTHA Comment:Testing performed by : [address] [address] Lymphocyte abs 0.4(L) 0.8 - 3.3 K/cumm MARTHA Comment:Testing performed by : [address] [address] Monocyte abs 0.5 0.2 - 0.8 K/cumm MARTHA Comment:Testing performed by : [address] [address] Neutrophil pct 91.0 % MARTHA Comment: Interpretive Data Percent cell count reference ranges are not reported, since discordance with absolute values may lead to misinterpretation of CBC data. Current Interpretive Data was last revised on 2017. Testing performed by: [address] [address] Lymphocyte pct 3.0 % MARTHA Comment: Interpretive Data Percent cell count reference ranges are not reported, since discordance with absolute values may lead to misinterpretation of CBC data. Current Interpretive Data was last revised on 2017. Testing performed by: [address] [address] Monocyte pct 5.0 % MARTHA Comment: Interpretive Data Percent cell count reference ranges are not reported, since discordance with absolute values may lead to misinterpretation of CBC data. Current Interpretive Data was last revised on 2017. Testing performed by: [address] [address] Variant lymph pct 1.0(H) 0.0 - 0.0 % MARTHA Comment:Testing performed by : [address] [address] RBC morphology Consistent with RBC Indicies MARTHA Comment:Testing performed by : [address] [address] Platelet estimate Decreased(A) MARTHA Comment:Testing performed by : [address] [address] Blood 08/06/2024 6:37 AM TERRAZZO LAYER 08/06/2024 6:41 AM TERRAZZO LAYER us Jimmy Levy DO LAB BLOOD ORDERABLES Final Result MARTHA [address] [facility] Department [place] [address] * (ABNORMAL) Comprehensive metabolic panel (08/06/2024 6:37 AM TERRAZZO LAYER) Sodium 141 135 - 145 mmol/L Comment:Testing performed by : [address] [address] Potassium, pl 4.0 3.3 - 4.9 mmol/L MARTHA Comment:Testing performed by : [address] [address] Chloride 108 97 - 110 mmol/L MARTHA Comment:Testing performed by : [address], [place]., [address] CO2 16(L) 22 - 32 mmol/L MARTHA Comment:Testing performed by : [address], [place]., [address] Anion gap 17(H) 2 - 15 mmol/L [facility] Comment:Testing performed by : [address], [place]., [address] BUN 33(H) 6 - 25 mg/dL [facility] Comment:Testing performed by : [address] [address] Creatinine 1.90(H) 0.80 - 1.30 mg/dL [facility] Comment:Testing performed by : [address] [address] Glucose 72 70 - 199 mg/dL [facility] Comment: Interpretive Data Fasting glucose >/= 126 mg/dl is diagnostic for diabetes. Fasting is defined as no caloric intake for at least 8 hours. Fasting glucose between 100 mg/dl to 125 mg/dl is diagnostic of prediabetes. In a patient with classic symptoms of hyperglycemia or hyperglycemic crisis, a random glucose >/= 200 mg/dl is diagnostic for diabetes. In the absence of unequivocal hyperglycemia, results should be confirmed by repeat testing. The classification and Diagnosis of Diabetes Diabetes Care 202; 46: S19-S40. Current interpretive data was last revised 2022. Testing performed by: [address] [address] Calcium 9.5 8.5 - 10.3 mg/dL [facility] Comment:Testing performed by : [address] [address] Bilirubin, total 1.6(H) 0.1 - 1.2 mg/dL [facility] Comment:Testing performed by : [address] [address] Protein, pl 6.7 6.5 - 8.5 g/dL MARTHA Comment:Testing performed by : [facility], [address] [place] [address]., [address] Albumin 3.2(L) 3.5 - 5.0 g/dL MARTHA Comment:Testing performed by : [address] [address] Alk phos 110 40 - 130 Units/L MARTHA Comment:Testing performed by : [address] [address] ALT 13 7 - 55 Units/L MARTHA Comment:Testing performed by : [address] [address] AST 13 10 - 50 Units/L MARTHA Comment:Testing performed by : [address] [address] Blood 08/06/2024 6:37 AM TERRAZZO LAYER 08/06/2024 6:41 AM TERRAZZO LAYER Jimmy Levy DO LAB BLOOD ORDERABLES Final Result MARTHA [address] [facility] Department of Laboratories [place], [place] [id number] * (ABNORMAL) Hepatitis C (HCV) RNA PCR, quantitative (04/14/2018 9:10 AM CDT) Pathologist [facility] HCV RNA IU/mL 54,107 IU/mL 04/16/2018 5:33 PM [facility] H[facility]OR[facility] RESULTS HCV RNA log IU/mL 4.73 log IU/mL 018 5:33 PM [facility] HISTORICAL RESULTS HCV quant by NAAT interp Detected( H) Not Detected 04/16/2018 5:33 PM [facility] HISTORICAL RESULTS Comment: INTERPRETIVE INFORMATION: HCV by [...] and Cellular Tissue-Based Products (HCT/P). Performed by [facility], [address] [place] [id number] [email or web address], Aaron Esparza MD, Lab. Director 04/14/2018 9:10 AM CDT 04/14/2018 9:28 AM CDT Amari Frazier MD LAB MICROBIOLOGY - GENERAL ORDE LUIGI Final Result [facility] HISTORICAL RESULTS from Last 3 Months or Most Recently Relevant to Health Maintenance Additional Health Concerns Infection Onset Date Last Indicated COVID: Recovered Comment:Added based on recent COVID infection. 08/20/2024 025 Insurance [facility] MEDICARE HMO HU[employer]NA MEDICARE HMO [place] [employer] MEDICARE HMO [facility] MEDICARE HMO [place] [id number] DEPT OF LABOR - [facility] WORKERS COMPENSATION GENERIC Advance Directives For more information, please contact: [phone] * Full Code (Latest Code Status on File) Date Activated Date Inactivated Comments 09/28/2024 1:42 PM 09/29/2024 4:40 AM * LIMITED - No CPR Date Activated Date Inactivated Comments 08/19/2024 7:39 AM 08/23/2024 5:20 PM Question Answer Comments Provide aggressive medical m anagement before a full cardiopulmonary arrest occurs. Use antibiotics, IV Fluids, and medical treatment unless specifically selected below: No intubation * LIMITED - No CPR Date Activated Date Inactivated Comments 08/06/2024 12:01 PM 08/10/2024 5:49 PM * Full Code Date Activated Date Inactivated Comments 03/01/2024 12:06 PM 03/02/2024 4:41 AM * Full Code Date Activated Date Inactivated Comments 10/14/2023 2:16 PM 10/15/2023 4:40 AM Care Teams Name Plate Stamping Machine Operator Relationship Specialty Start Date End Date Jose Rivera MD [address] [place] [address] PCP - General 08/29/17 [place] [address] [place] [address] Consulting Physician Gastroenterology 02/08/23 Shayan Brown MD [address] [place] [id number] Referring Physician Hematology 01/13/24
--- OUTSIDE RECORDS SUMMARY | 2024-10-16 08:57 | XMS_ITS | Clinical Summary ---
Author Organization [facility] Address [address] [place] [id number] Phone Care Team Providers Care Relay Engineer Name Role Phone Jose Rivera MD Primary Care Provider [phone] Allergies Active Allergy Reactions Criticality Noted Date Comments Lisinopril Swelling 03/06/2021 Reaction: Swelling, Penicillins Hives High 03/06/2021 Reaction: Hives, Sulfa Antibiotics Hives Medium 10/21/2019 Hives Medications albuterol (2.5 MG/3ML) 0.083% nebulizer solution Inhale 2.5 mg 4 times daily 9 Active amLODIPine (NORVASC) 10 MG tablet 1 Active doxazosin (CARDURA) 8 MG tablet 1 Active fluticasone (FLONASE) 50 MCG/ACT nasal spray Administer 1 spray into affected nostril(s) 9 Active Fluticasone-Ume clidin-Vilant (Trelegy Ellipta) 100-62.5-25 MCG/INH aerosol powder Inhale 1 puff daily 9 Active ipratropium (ATROVENT) 0.02 % nebulizer solution 1 Active levocetirizine (XYZAL) 5 MG tablet 1 Active methocarbamol (ROBAXIN) 500 MG tablet 1 Active montelukast (SINGULAIR) 10 MG tablet 1 Active Daliresp 500 MCG tablet 1 Active sildenafil (VIAGRA) 100 MG tablet 1 Active dipyridamole-as pirin (AGGRENOX) 25-200 MG per 12 hr capsule Take 1 capsule by mouth 2 (two) times a day Active ergocalciferol (VITAMIN D-2) 1.25 MG (00724 UT) capsule Take 50,000 Units by mouth 1 (one) time per week Active albuterol HFA (PROVENTIL HFA) 108 (90 Base) MCG/ACT inhaler 1 Active budesonide (PULMICORT) 0.5 MG/2ML nebulizer solution 1 Active Active Problems Problem Noted Date Diagnosed [...] (03/06/2021): Last Assessment & Plan: Continue with Jacqueline bryan. Hypertension 12/08/2009 Lumbago 12/08/2009 Pain in limb 12/08/2009 Immunizations Immunization Administration Dates Next Due Sars-cov-2, Unspecified 08/20/2020 [...] at Not on file Legal Sex Male 8:27 AM MDT Gender Identity Not on file Sexual Orientation [...] Medium Risk (1 of 4 - PCV) 2000 Influenza Vaccine (Season Ended) 2025 Insurance [place]ICAID - [place] Care Teams Relay Engineer Relationship Specialty Start Date End Date Jose Rivera MD [address] [place] [phone] PCP - General Internal Medicine 01/05/21
--- OUTSIDE RECORDS SUMMARY | 2024-10-16 08:57 | XMS_ITS | Clinical Summary ---
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 Not on file [...] Health Maintenance Results * HM COLONOSCOPY (05/12/2016) Jose Rivera MD PROCEDURE/MINOR SURGICAL ORD ERABLES Final Result from Last 3 Months or Most Recently Relevant to Health Maintenance Insurance MEDICARE C HUMANA Member Subscriber Plan / Payer (Ef fective 2015-Present) Name:Yadiel Lee Relation to Subscriber:Self Name:Lee Cotto Payer ID:[id number] (NAIC) Type:HMO Address: [place] [id number] Care Teams Certified Control Systems Technician Relationship Specialty Start Date End Date Jose Rivera MD [address] [place] [address] PCP - General Family Medicine 05/17/16 John Seth DO [address] [place] [address] Gastroenterology 05/17/16
--- OUTSIDE RECORDS SUMMARY | 2024-10-16 08:58 | XMS_ITS | Encounter Summary ---
Author Organization [facility] Address [address] [place] [address] Care Team Providers Care Occupational Therapy Department Chair Name Role Phone Jose Rivera MD Primary Care Provider Justin Miller MD Unavailable [phone] Shayan Brown MD Unavailable [phone] Encounter Details Date Type Department Care Team (Late st Contact Info) Description 09/27/2024 Telephone [facility] - Interventional Radiology [address] [place] [address] Juan Sierra, ROBEL Social History Tobacco Use Types Packs/Day Years [...] materials from doctor or pharmacy Never 04/12/2023 [facility] Utilities Answer Date Recorded In the past 12 months has th e electric, gas, oil, or water company threatened to shut off services in your [...] often do you attend chur ch or anglican services? Never 08/21/2024 Do you belong to any clubs o r organizations such as adventist groups, unions, fraternal or athletic groups, or [...] place to sleep or slept in a usp (including now)? No 02/03/2023 Housing Stability Vital Sign Answer Ministerio e Recorded In the last 12 months, was t here a time when you were not able to pay the mortgage or rent on time? No 08/21/2024 In the past 12 months, how m any times have you moved where you were living? 0 08/21/2024 At any time in the past 12 m [facility], were you homeless or living in a usp (including now)? No 08/21/2024 Personal Safety Answer Date Recorded Have you ever been in or are you currently in a harmful physical or emotional relationship or is someone making you feel afraid or unsafe? Denies 09/28/2024 Sex and Gender Information Value Date Recorded Sex Assigned at Not on file Legal Sex Male 1:47 AM WRAPPER SELECTOR Gender Identity Not on file Sexual Orientation [...] Onset Date Last Indicated Resolved Time COVID: Recovered Comment:Added based on recent COVID infection. 08/20/2024 08/20/2024 documented as of this encounter Care Teams Occupational Therapy Department Chair Relationship Specialty Start Date End Date Jose Rivera MD [address] [place], [place] [phone] PCP - General 08/29/17 [place] [address] [place] [address] Consulting Physician Gastroenterology 02/08/23 Shayan Brown MD [address] [phone] Referring Physician Hematology 01/13/24 documented as of this encounter
--- OUTSIDE RECORDS SUMMARY | 2024-10-16 08:58 | XMS_ITS | Clinical Summary ---
Author Organization [facility] Address [address] [place] [address] Care Team Providers Care Chief Engineer Waterworks Name Role Phone Jose Rivera MD Primary Care Provider [phone] Social History Tobacco Use Types Packs/Day Years [...] Colorectal Cancer Screening Colonoscopy (10 Years) 1950 Hepatitis C 1968 DTaP, Tdap and Td Vaccines ( 1 - Tdap) 1969 Pneumococcal Vaccine: 50+ Ye ars (1 of 1 - PCV) 2000 Zoster Vaccines (1 of 2) 2000 Annual Medicare Wellness Visit 12/05/2015 COVID-19 Vaccine ( - 2023-2 5 season) 2024 RSV Immunization or 60+ Years (1 - [...] this topic Insurance MEDICAID HUMANA Care Teams Chief Engineer Waterworks Relationship Specialty Start Date End Date Jose Rivera MD [address] [place] [address] PCP - General FAMILY PRACTICE 09/15/22
--- OUTSIDE RECORDS SUMMARY | 2024-10-16 08:58 | XMS_ITS | Encounter Summary ---
Author Organization [facility] Healthcare Address [address] [place] [address] Care Team Providers Care Violin Mechanic Name Role Phone Jose Rivera MD Primary Care Provider Justin Miller MD Unavailable [phone] Shayan Brown MD Unavailable [phone] Encounter Details Date Type Department Care Team (Late st Contact Info) Description 04/19/[address] [facility] - Interventional Radiology [address] [place] [address] Alda Harris RN Social History [...] often do you attend chur ch or moravian services? Never 02/03/2023 Do you belong to any clubs o r organizations such as mandaen groups, unions, fraternal or athletic groups, or [...] on file Legal Sex Male 1:47 AM TALKBACK HOST Gender Identity Not on file Sexual Orientation [...] COVID: Suspected 08/06/2024 08/06/2024 08/06/2024 7:34 AM TALKBACK HOST COVID19 08/06/2024 08/06/2024 08/20/2024 2:36 PM CDT COVID: Recovered Comment:Added based on recent COVID infection. 08/20/2024 08/20/2024 documented as of this encounter Care Teams Violin Mechanic Relationship Specialty Start Date End Date Jose Rivera MD [address] [address] PCP - General 08/29/17 [place] [address] [place] [address] Consulting Physician Gastroenterology 02/08/23 Shayan Brown MD [address] [facility] [address] [place] [address] Referring Physician Hematology 01/13/24 documented as of this encounter
--- OUTSIDE RECORDS SUMMARY | 2024-10-16 08:58 | XMS_ITS | Referral Summary ---
Author Organization [place] [id number] Address [address] [place] [address] Care Team Providers [employer] Consultant Name Role Phone Jose Rivera MD Primary Care Provider Justin Miller MD Unavailable Shayan Brown MD Unavailable [phone] Encounters Date Type Department Care Team Description 09/28/2024 Orders Only [facility] - Interventional Radiology [address] [place] [phone] Park Johns RN 09/28/2024 1:32 PM CDT - 09/28/2024 11:59 PM CDT Hospital Encounter [facility] - Interventional Radiology [address] [place] [phone] Gall bladder inflammation Discharge Disposition: Discharge to home or self care 09/27/2024 Telephone [facility] - Interventional Radiology [address] [place] [phone] Juan Sierra RN 09/27/2024 Orders Only [facility] - Interventional Radiology [address] [place] [phone] Juan Sierra RN 08/19/2024 6:04 AM CDT - 08/23/2024 1:20 PM CDT Hospital Encounter [facility] [address] [place] [phone] Oliverio Reddy MD Khan, Fatima A., MD Dehaan, MD Zachary Landin Anshu, MD PRISCILLA (acute kidney injury) (Primary Dx); Anemia, unspecified type; Obstruction of percutaneous transhepatic biliary drainage catheter Discharge Disposition: Discharge to home or self care 08/16/2024 3:00 PM FOAM RUBBER MOLDER - 08/16/2024 11:59 PM FOAM RUBBER MOLDER Hospital Encounter [facility] - Interventional Radiology [address] [place] [phone] Gall bladder inflammation Discharge Disposition: Discharge to home or self care 08/06/2024 6:28 AM FOAM RUBBER MOLDER - 08/10/2024 1:43 PM FOAM RUBBER MOLDER Hospital Encounter [place] [address] [address] [place] [phone] Jimmy Levy DO Lopez, Manuel Emilio, MD Gaspe Mudiyanselage, Roland Lynch MD Pneumonia of both upper lobes due to infectious organism (Primary Dx); COVID; Simple chronic bronchitis (HCC) [J41.0]; Chronic respiratory failure with hypoxia (CMS/HCC) (HCC) [J96.11]; COVID-19 [U07.1] Discharge Disposition: Discharge to home or self care from Last 3 Months Allergies Active Allergy [...] nostril daily as needed for allergies 12/25/19 Active levocetirizine (XYZAL) 5 mg tabletIndications: Allergic [...] (two) times a day 60 capsule 08/10/19 Active roflumilast (DALIRESP) 500 mcg tabletIndications: Prevention [...] pain 12/08/2009 Pain in limb 12/08/2009 Immunizations Immunization Administration Dates Next Due Sars-CoV-2, [...] materials from doctor or pharmacy Never 04/12/2023 [facility] Utilities Answer Date Recorded In the past 12 months has [employer], gas, oil, or water [employer] threatened to shut off services in your home? No 08/21/2024 Social Connection and Isolat ion Panel [NHANES] Answer Date Recorded In a typical week, how many times do you talk on the phone with family, friends, or neighbors? More than three times a week 08/21/2024 How often do you get togethe r with friends or relatives? Never 08/21/2024 How often do you attend [facility] or anglican services? Never 08/21/2024 Do you belong to any clubs o r organizations such as synagogue groups, unions, fraternal or athletic groups, or [...] any time in the past 12 m [facility], were you homeless or living in a usp (including now)? No 08/21/2024 Personal Safety Answer Date Recorded Have you ever been in or are you currently in a harmful physical or emotional relationship or is someone making you feel afraid or unsafe? Denies 09/28/2024 Sex and Gender Information Value Date Recorded Sex Assigned at Not on file Legal Sex Male 1:47 AM FOAM RUBBER MOLDER Gender Identity Not on file Sexual Orientation [...] cm (5' 8 ) 08/16/2024 3:21 PM FOAM RUBBER MOLDER Body Mass Index 25.94 08/16/2024 3:21 PM FOAM RUBBER MOLDER Plan of Treatment Not on file Goals [...] as needed Medical Devices Explanted Type Area Travelers' Aid Worker Device Identifier Shelf Expiration Date Model / Serial / Lot [employer] Ian Advanix 10fr 7cm Rapid Exchange Temporary Taper Tip Thin Wall 2 [id number] - [id number] Explanted:Qty: 1 on 02/01/2023 at [facility] Stent N/A: Bile Duct [employer] Ian 11/17/2024 [id number] / / [id number] Description:Slipped out of d uct Procedures Procedure [...] Read Routine (OP Routine) 08/16/2024 4:34 PM FOAM RUBBER MOLDER Gall bladder inflammation XR CHEST 1 VIEW IP Routine 08/10/2024 9:03 AM FOAM RUBBER MOLDER EGFR Routine 08/10/2024 8:27 AM FOAM RUBBER MOLDER DIFFERENTIAL AUTO Routine 08/10/2024 8:2 7 AM FOAM RUBBER MOLDER COMPREHENSIVE METABOLIC PANEL Routine 08/10/2024 8:27 AM FOAM RUBBER MOLDER CBC WITH AUTO DIFFERENTIAL Routine 08/10/2024 8:27 AM FOAM RUBBER MOLDER EGFR Routine 08/09/2024 7:36 AM FOAM RUBBER MOLDER DIFFERENTIAL AUTO Routine 08/09/2024 7:3 6 AM FOAM RUBBER MOLDER COMPREHENSIVE METABOLIC PANEL Routine 08/09/2024 7:36 AM FOAM RUBBER MOLDER CBC WITH AUTO DIFFERENTIAL Routine 08/09/2024 7:36 AM FOAM RUBBER MOLDER EGFR Routine 08/08/2024 9:18 AM FOAM RUBBER MOLDER DIFFERENTIAL AUTO Routine 08/08/2024 9:1 8 AM FOAM RUBBER MOLDER CRP (ACUTE PHASE) Routine 08/08/2024 9:1 8 AM FOAM RUBBER MOLDER COMPREHENSIVE METABOLIC PANEL Routine 08/08/2024 9:18 AM FOAM RUBBER MOLDER CBC WITH AUTO DIFFERENTIAL Routine 08/08/2024 9:18 AM FOAM RUBBER MOLDER VITAMIN B12 Routine 08/08/2024 9:18 AM FOAM RUBBER MOLDER FOLATE Routine 08/08/2024 9:18 AM FOAM RUBBER MOLDER IRON PROFILE W/ IBC Routine 08/08/2024 9 :18 AM FOAM RUBBER MOLDER FERRITIN Routine 08/08/2024 9:18 AM FOAM RUBBER MOLDER VANCOMYCIN LEVEL RANDOM Timed 08/08/2024 9:18 AM FOAM RUBBER MOLDER XR CHEST 1 VIEW IP Routine 08/08/2024 8:21 AM FOAM RUBBER MOLDER INFECTION PREVENTION MRSA ONLY (STAPHYLOCOCCUS AUREUS) PCR STAT 08/08/2024 8:04 AM FOAM RUBBER MOLDER INFECTION PREVENTION MRSA ONLY (STAPHYLOCOCCUS AUREUS) PCR STAT 08/07/2024 9:29 AM FOAM RUBBER MOLDER MANUAL DIFFERENTIAL Routine 08/07/2024 6 :28 AM FOAM RUBBER MOLDER EGFR Routine 08/07/2024 6:28 AM FOAM RUBBER MOLDER DIFFERENTIAL AUTO Routine 08/07/2024 6:2 8 AM FOAM RUBBER MOLDER CBC WITH AUTO DIFFERENTIAL Routine 08/07/2024 6:28 AM FOAM RUBBER MOLDER PHOSPHORUS Routine 08/07/2024 6:28 AM FOAM RUBBER MOLDER MAGNESIUM Routine 08/07/2024 6:28 AM FOAM RUBBER MOLDER COMPREHENSIVE METABOLIC PANEL Routine 08/07/2024 6:28 AM FOAM RUBBER MOLDER VANCOMYCIN LEVEL RANDOM Timed 08/07/2024 6:28 AM FOAM RUBBER MOLDER US KIDNEY COMPLETE IP Routine 08/06/2024 4: 48 PM FOAM RUBBER MOLDER URINALYSIS, MICROSCOPIC ONLY Routine 08/06/2024 1:54 PM FOAM RUBBER MOLDER SODIUM, URINE, RANDOM Routine 08/06/2024 1:54 PM FOAM RUBBER MOLDER CREATININE, URINE, RANDOM Routine 08/06/2024 1:54 PM FOAM RUBBER MOLDER URINALYSIS AND REFLEX TO MICROSCOPIC AND CULTURE Routine 08/06/2024 1:54 PM FOAM RUBBER MOLDER PNEUMONIA PCR WITH AEROBIC CULTURE AND GRAM STAIN Routine 08/06/2024 1:28 PM FOAM RUBBER MOLDER TROPONIN T HIGH-SENSITIVITY 6-HOUR Timed 08/06/2024 12:12 PM FOAM RUBBER MOLDER LEGIONELLA ANTIGEN, URINE Routine 08/06/2024 12:06 PM FOAM RUBBER MOLDER STREP PNEUMONIAE AG, URINE Routine 08/06/2024 12:06 PM FOAM RUBBER MOLDER TROPONIN T HIGH-SENSITIVITY 4-HR Timed 08/06/2024 10:28 AM FOAM RUBBER MOLDER URINALYSIS, MICROSCOPIC ONLY STAT 08/06/2024 8:32 AM FOAM RUBBER MOLDER TROPONIN T HIGH-SENSITIVITY 2-HOUR Timed 08/06/2024 8:32 AM FOAM RUBBER MOLDER URINE CULTURE STAT 08/06/2024 8:32 AM FOAM RUBBER MOLDER URINALYSIS AND REFLEX TO MICROSCOPIC AND CULTURE STAT 08/06/2024 8:32 [address] CHEST PE W CONTRAST ED 08/06/2024 7:57 AM FOAM RUBBER MOLDER BLOOD CULTURE STAT 08/06/2024 6:47 AM FOAM RUBBER MOLDER XR CHEST 1 VIEW ED 08/06/2024 6:43 AM FOAM RUBBER MOLDER BLOOD CULTURE STAT 08/06/2024 6:43 AM FOAM RUBBER MOLDER INFLUENZA A/B, RSV, AND COVID-19 PCR STAT 08/06/2024 6:43 AM FOAM RUBBER MOLDER ECG 12-LEAD STAT 08/06/2024 6:37 AM FOAM RUBBER MOLDER COMPREHENSIVE METABOLIC PANEL Routine 08/06/2024 6:37 AM FOAM RUBBER MOLDER EGFR Routine 08/06/2024 6:37 AM FOAM RUBBER MOLDER MANUAL DIFFERENTIAL STAT 08/06/2024 6 :37 AM FOAM RUBBER MOLDER PRO B-TYPE NATRIURETIC PEPTIDE STAT 08/06/2024 6:37 AM FOAM RUBBER MOLDER TROPONIN T HIGH-SENSITIVITY SERIES (BASELINE, 2HR, 4HR, 6HR) Routine 08/06/2024 6:37 AM FOAM RUBBER MOLDER SEPSIS LACTATE WITH REFLEX STAT 08/06/2024 6:37 AM FOAM RUBBER MOLDER CBC WITH AUTO DIFFERENTIAL STAT 08/06/2024 6:37 AM FOAM RUBBER MOLDER HEPATITIS C RNA, QUANTITATIVE, PCR Routine 04/14/2018 [...] saline slowly (over 30 seconds) once daily. [facility] - [phone] Electronically signed by: Jennifer Perry PA-C Narrative [...] was obtained. Prior to beginning the procedure, [place] Protocol was performed to confirm the patient's [...] The catheter was then divided and a Nav[place]son guidewire in a 5-Danish Kumpe catheter were advanced through the catheter under fluoroscopic monitoring. The existing catheter was exchanged over the wire for a new 18-Danish Haroon internal-external biliary drainage catheter with additional sideholes. Limited contrast injection through the catheter under fluoroscopic monitoring confirmed appropriate position of the last side hole within the biliary tree. The catheter was secured in position using TWO 0-Prolene sutures, a Cath Ultrasound Coordinator securement device, and the drain was capped. [...] was obtained. Prior to beginning the procedure, [place] Protocol was performed to confirm the patient's [...] The catheter was then divided and a Extra Life guidewire in a 5-Danish Kumpe catheter were advanced through the catheter under fluoroscopic monitoring. The existing catheter was exchanged over the wire for a new 18-Danish Haroon internal-external biliary drainage catheter with additional sideholes. Limited contrast injection through the catheter under fluoroscopic monitoring confirmed appropriate position of the last side hole within the biliary tree. The catheter was secured in position using TWO 0-Prolene sutures, a Cath Ultrasound Coordinator securement device, and the drain was capped. [...] saline slowly (over 30 seconds) once daily. [facility] - [phone] Electronically signed by: Jennifer Perry PA-C us Nicolasa CEDILLO IMG IR PROCEDURES Fin al [...] was obtained. Prior to beginning the procedure, [place] Protocol was performed to confirm the patient's [...] exchanged over the wire for a new 18-Danish Haroon biliary drainage catheter, sized for length [...] was obtained. Prior to beginning the procedure, [place] Protocol was performed to confirm the patient's [...] exchanged over the wire for a new 18-Danish Haroon biliary drainage catheter, sized for length [...] by: Howard Douglass MD Shubham Sharma MD IMG IR PROCEDURES Final Result * (ABNORMAL) eGFR [...] MD LAB BLOOD ORDERABLES [facility] [address] Department [place] [address] * (ABNORMAL) Differential, auto (08/22/2024 5:00 AM CDT) Neutrophil abs 6.0 1.5 - 6.5 K/cumm Imm gran abs 0.2(H) 0.0 - 0.1 K/cumm [facility] Lymphocyte abs 0.7(L) 0.8 - 3.3 K/cumm [facility] Monocyte abs 1.2(H) 0.2 - 0.8 K/cumm [facility] Eosinophil abs 0.3 0.0 - 0.5 K/cumm [facility] Basophil abs 0.0 0.0 - 0.1 K/cumm [facility] Neutrophil pct 70.9 % [facility] Comment: Interpretive Data Percent cell count reference ranges are not reported, since discordance with absolute values may lead to misinterpretation of CBC data. Current Interpretive Data was last revised on 2017. Imm gran pct 2.5 % [facility] Comment: Interpretive Data Percent cell count reference ranges are not reported, since discordance with absolute values may lead to misinterpretation of CBC data. Current Interpretive Data was last revised on 2017. Lymphocyte pct 8.3 % [facility] Comment: Interpretive Data Percent cell count reference ranges are not reported, since discordance with absolute values may lead to misinterpretation of CBC data. Current Interpretive Data was last revised on 2017. Monocyte pct 14.4 % [facility] Comment: Interpretive Data Percent cell count reference ranges are not reported, since discordance with absolute values may lead to misinterpretation of CBC data. Current Interpretive Data was last revised on 2017. Eosinophil pct 3.4 % [facility] Comment: Interpretive Data Percent cell count reference ranges are not reported, since discordance with absolute values may lead to misinterpretation of CBC data. Current Interpretive Data was last revised on 2017. Basophil pct 0.5 % [facility] Comment: Interpretive Data Percent cell count reference ranges are not reported, since discordance with absolute values may lead to misinterpretation of CBC data. Current Interpretive Data was last revised on 2017. Blood 08/22/2024 5:00 AM CDT 08/22/2024 7:04 AM CDT us Shubham Sharma MD LAB BLOOD ORDERABLES Final Resul t [facility] [address] Department [place] [employer] [place] [address] * (ABNORMAL) CBC with auto differential (08/22/2024 5:00 AM CDT) [facility] WBC 8.5 3.8 - 9.9 K/cumm Hgb 8.9(L) 13.0 - 17.5 g/dL [facility] Hct 28.8(L) 38.9 - 50.3 % [facility] Plt 124(L) 150 - 400 K/cumm [facility] MPV 11.7 9.1 - 12.[address] [facility] RBC 3.02(L) 4.30 - 5.80 M/cumm [facility] MCV 95.4 81.3 - 96.[address] [facility] MCH 29.5 27.1 - 33.[address] [facility] MCHC 30.9(L) 32.3 - 35.7 g/dL [facility] RDW CV 15.5(H) 11.1 - 14.9 % [facility] RDW SD 53.8(H) 35.7 - 48.[address] [facility] NRBC abs 0.00 0.00 - 0.01 K/cumm [facility] Blood 08/22/2024 5:00 AM CDT 08/22/2024 7:04 AM CDT us Shubham Sharma MD LAB BLOOD ORDERABLES Final Resul t [facility] [address] Department [place] [address] * (ABNORMAL) Basic metabolic panel (08/22/2024 5:00 AM CDT) [facility] Sodium 143 135 - 145 mmol/L Potassium, pl 4.5 3.3 - 4.9 mmol/L [facility] Chloride 111(H) 97 - 110 mmol/L [facility] CO2 20(L) 22 - 32 mmol/L [facility] Anion gap 12 2 - 15 mmol/L [facility] BUN 28(H) 6 - 25 mg/dL [facility] Creatinine 1.74(H) 0.80 - 1.30 mg/dL [facility] Glucose 79 70 - 199 mg/dL [facility] Comment: Interpretive Data Fasting glucose >/= 126 [...] 2022. Calcium 8.5 8.5 - 10.3 mg/dL [facility] Blood 08/22/2024 5:00 AM CDT 08/22/2024 8:12 AM CDT us Shubham Sharma MD LAB BLOOD ORDERABLES Final Resul t [facility] [address] Department [place] [address] * CT Abdomen Pelvis W Contrast (08/21/2024 [...] bilateral femoral heads without collapse. Procedure Note Keri Valladares MD - 08/22/2024 EXAM: CT abdomen [...] saline slowly (over 30 seconds) once daily. [facility] - [phone] Electronically signed by: Jennifer Perry PA-C Narrative [...] was obtained. Prior to beginning the procedure, [place] Protocol was performed to confirm the patient's [...] an Amplatz guidewire in a 65 cm Rising Sun catheter were advanced through the catheter under fluoroscopic monitoring. The existing catheter was exchanged over the wire for a new 18-Danish Haroon internal-external biliary drainage catheter with additional [...] was obtained. Prior to beginning the procedure, [place] Protocol was performed to confirm the patient's [...] an Amplatz guidewire in a 65 cm Rising Sun catheter were advanced through the catheter under fluoroscopic monitoring. The existing catheter was exchanged over the wire for a new 18-Danish Haroon internal-external biliary drainage catheter with additional [...] saline slowly (over 30 seconds) once daily. [facility] - [phone] Electronically signed by: Jennifer Perry PA-C us [...] MD LAB BLOOD ORDERABLES Final Res ult [facility] [address] Department [place] [address] * (ABNORMAL) Differential, auto (08/20/2024 6:14 AM CDT) Neutrophil abs 6.3 1.5 - 6.5 K/cumm Imm gran abs 0.2(H) 0.0 - 0.1 K/cumm [facility] Lymphocyte abs 0.5(L) 0.8 - 3.3 K/cumm [facility] Monocyte abs 1.4(H) 0.2 - 0.8 K/cumm [facility] Eosinophil abs 0.2 0.0 - 0.5 K/cumm [facility] Basophil abs 0.0 0.0 - 0.1 K/cumm [facility] Neutrophil pct 72.6 % [facility] Comment: Interpretive Data Percent cell count reference ranges are not reported, since discordance with absolute values may lead to misinterpretation of CBC data. Current Interpretive Data was last revised on 2017. Imm gran pct 2.4 % [facility] Comment: Interpretive Data Percent cell count reference ranges are not reported, since discordance with absolute values may lead to misinterpretation of CBC data. Current Interpretive Data was last revised on 2017. Lymphocyte pct 6.3 % [facility] Comment: Interpretive Data Percent cell count reference ranges are not reported, since discordance with absolute values may lead to misinterpretation of CBC data. Current Interpretive Data was last revised on 2017. Monocyte pct 15.9 % [facility] Comment: Interpretive Data Percent cell count reference ranges are not reported, since discordance with absolute values may lead to misinterpretation of CBC data. Current Interpretive Data was last revised on 2017. Eosinophil pct 2.5 % [facility] Comment: Interpretive Data Percent cell count reference ranges are not reported, since discordance with absolute values may lead to misinterpretation of CBC data. Current Interpretive Data was last revised on 2017. Basophil pct 0.3 % [facility] Comment: Interpretive Data Percent cell count reference ranges are not reported, since discordance with absolute values may lead to misinterpretation of CBC data. Current Interpretive Data was last revised on 2017. Blood 08/20/2024 6:14 AM CDT 08/20/2024 6:32 AM CDT us Stan Fitzpatrick MD LAB BLOOD ORDERABLES Final Res ult [facility] [address] Department [place] [address] * (ABNORMAL) CBC with auto differential (08/20/2024 6:14 AM CDT) Pathologist [facility] WBC 8.6 3.8 - 9.9 K/cumm Hgb 8.6(L) 13.0 - 17.5 g/dL [facility] Hct 27.8(L) 38.9 - 50.3 % [facility] Plt 115(L) 150 - 400 K/cumm [facility] Comment:Consistent with prev ious result. MPV 11.0 9.1 - 12.[address] [facility] RBC 2.88(L) 4.30 - 5.80 M/cumm [facility] MCV 96.5(H) 81.3 - 96.[address] [facility] MCH 29.9 27.1 - 33.[address] [facility] MCHC 30.9(L) 32.3 - 35.7 g/dL [facility] RDW CV 15.7(H) 11.1 - 14.9 % [facility] RDW SD 55.1(H) 35.7 - 48.[address] [facility] NRBC abs 0.00 0.00 - 0.01 K/cumm [facility] Blood 08/20/2024 6:14 AM CDT 08/20/2024 6:32 AM CDT us Stan Fitzpatrick MD LAB BLOOD ORDERABLES Final Res ult [facility] [address] Department [place] [address] * (ABNORMAL) Basic metabolic panel (08/20/2024 6:14 AM CDT) Pathologist [facility] Sodium 142 135 - 145 mmol/L Potassium, pl 4.6 3.3 - 4.9 mmol/L [facility] Chloride 114(H) 97 - 110 mmol/L [facility] CO2 19(L) 22 - 32 mmol/L [facility] Anion gap 9 2 - 15 mmol/L [facility] BUN 31(H) 6 - 25 mg/dL [facility] Creatinine 1.79(H) 0.80 - 1.30 mg/dL [facility] Glucose 73 70 - 199 mg/dL [facility] Comment: Interpretive Data Fasting glucose >/= 126 [...] 2022. Calcium 8.1(L) 8.5 - 10.3 mg/dL [facility] Blood 08/20/2024 6:14 AM CDT 08/20/2024 6:32 AM CDT us Stan Fitzpatrick MD LAB BLOOD ORDERABLES Final Res ult [facility] [address] Department [place] [address] * (ABNORMAL) Hemoglobin and hematocrit (08/19/2024 5:59 PM CDT) Pathologist [facility] Hgb 8.4(L) 13.0 - 17.5 g/dL Hct 27.4(L) 38.9 - 50.3 % [facility] Blood 08/19/2024 5:59 PM CDT 08/19/2024 5:59 PM CDT us Thomas Corral NP LAB BLOOD ORDERABLES Final Result [facility] [address] Department [place] [address] * Transfuse RBC (08/19/2024 12:43 PM CDT) Blood us Oliverio Reddy MD BLOOD TRANSFUSION ORDERABLES Final Result Performing Organization Address [facility] Co de Phone Number [facility] [address] Department [place] [place] [address] * US Kidney Complete (08/19/2024 9:17 AM [...] Prince Fuentes M.D. us Oliverio Reddy MD IM US PROCEDURES Final Resu lt * XR [...] ABO Rh A Positive Vanessa, indirect Negative [facility] Blood 08/19/2024 7:46 AM CDT 08/19/2024 7:[address] [facility] - 08/19/2024 8:31 AM CDT Has the patient had Daratumumab or Isatuximab in the past 6 months?->Unknown Oliverio Reddy MD LAB BLOOD BANK TEST ORDERABL ES Final Result Performing Organization Address [facility] de Phone Number [facility] [address] [place] [employer] [place] [address] * Prepare RBC: 1 Units (08/19/2024 7:36 AM CDT) Product code [id number] Unit Number [id number] [facility] Product Blood Type APOS [facility] Dispense Status PRESUMED TRANSFUSED [facility] Blood 08/19/2024 7:[address] [facility] - 08/26/2024 10:16 AM CDT Are special requirements needed? (All products are leukoreduced and CMV- safe)- >No Date required:-[id number] LRRBC # of [id number] Reasons:-Cardiovascular disease, Hgb <8 g/dL} Oliverio Reddy MD BLOOD BANK PRODUCT ORDERABLE S Final Result Performing Organization Address [facility] Co de Phone Number [facility] [address] [place] [address] * (ABNORMAL) eGFR (08/19/2024 6:53 AM CDT) Pathologist [facility] eGFR 33(L) >=60 mL/min/1. 73 m2 Comment: [...] MD LAB BLOOD ORDERABLES Final R esult [facility] [address] [place] [address] * (ABNORMAL) Differential, auto (08/19/2024 6:53 AM CDT) [facility] Neutrophil abs 5.7 1.5 - 6.5 K/cumm Imm gran abs 0.2(H) 0.0 - 0.1 K/cumm [facility] Lymphocyte abs 0.5(L) 0.8 - 3.3 K/cumm [facility] Monocyte abs 1.3(H) 0.2 - 0.8 K/cumm [facility] Eosinophil abs 0.1 0.0 - 0.5 K/cumm [facility] Basophil abs 0.0 0.0 - 0.1 K/cumm [facility] Neutrophil pct 72.0 % [facility] Comment: Interpretive Data Percent cell count reference ranges are not reported, since discordance with absolute values may lead to misinterpretation of CBC data. Current Interpretive Data was last revised on 2017. Imm gran pct 3.0 % [facility] Comment: Interpretive Data Percent cell count reference ranges are not reported, since discordance with absolute values may lead to misinterpretation of CBC data. Current Interpretive Data was last revised on 2017. Lymphocyte pct 6.3 % [facility] Comment: Interpretive Data Percent cell count reference ranges are not reported, since discordance with absolute values may lead to misinterpretation of CBC data. Current Interpretive Data was last revised on 2017. Monocyte pct 16.9 % [facility] Comment: Interpretive Data Percent cell count reference ranges are not reported, since discordance with absolute values may lead to misinterpretation of CBC data. Current Interpretive Data was last revised on 2017. Eosinophil pct 1.4 % [facility] Comment: Interpretive Data Percent cell count reference ranges are not reported, since discordance with absolute values may lead to misinterpretation of CBC data. Current Interpretive Data was last revised on 2017. Basophil pct 0.4 % [facility] Comment: Interpretive Data Percent cell count reference ranges are not reported, since discordance with absolute values may lead to misinterpretation of CBC data. Current Interpretive Data was last revised on 2017. Blood 08/19/2024 6:53 AM CDT 08/19/2024 6:57 AM CDT Oliverio Reddy MD LAB BLOOD ORDERABLES Final R esult [facility] [address] Department [place] [address] * Check Sample (08/19/2024 6:53 AM CDT) ABO Rh A Positive MBC HCLL OTHER 08/19/2024 6:53 AM CDT 08/19/2024 7:42 AM CDT Oliverio Reddy MD LAB BLOOD ORDERABLES Final R esult [facility] [address] Department [place] [place] [address] MBC * (ABNORMAL) CBC with auto differential (08/19/2024 6:53 AM CDT) Pathologist [facility] WBC 7.9 3.8 - 9.9 K/cumm Hgb 7.1(L) 13.0 - 17.5 g/dL [facility] Hct 23.8(L) 38.9 - 50.3 % [facility] Plt 122(L) 150 - 400 K/cumm [facility] MPV 11.3 9.1 - 12.[address] [facility] RBC 2.43(L) 4.30 - 5.80 M/cumm [facility] MCV 97.9(H) 81.3 - 96.[address] [facility] MCH 29.2 27.1 - 33.[address] [facility] MCHC 29.8(L) 32.3 - 35.7 g/dL [facility] RDW CV 16.1(H) 11.1 - 14.9 % [facility] RDW SD 58.3(H) 35.7 - 48.[address] [facility] NRBC abs 0.00 0.00 - 0.01 K/cumm [facility] Blood 08/19/2024 6:53 AM CDT 08/19/2024 6:57 AM CDT Oliverio Reddy MD LAB BLOOD ORDERABLES Final R esult [facility] [address] Department of [employer] [place], [place] [id number] * (ABNORMAL) Comprehensive metabolic panel (08/19/2024 6:53 AM CDT) Pathologist [facility] Sodium 142 135 - 145 mmol/L Potassium, pl 4.7 3.3 - 4.9 mmol/L [facility] Chloride 112(H) 97 - 110 mmol/L [facility] CO2 18(L) 22 - 32 mmol/L [facility] Anion gap 12 2 - 15 mmol/L [facility] BUN 38(H) 6 - 25 mg/dL [facility] Creatinine 2.09(H) 0.80 - 1.30 mg/dL [facility] Glucose 79 70 - 199 mg/dL [facility] Comment: Interpretive Data Fasting glucose >/= 126 [...] 2022. Calcium 8.1(L) 8.5 - 10.3 mg/dL [facility] Bilirubin, total 0.7 0.1 - 1.2 mg/dL [facility] Protein, pl 5.7(L) 6.5 - 8.5 g/dL [facility] Albumin 3.2(L) 3.5 - 5.0 g/dL [facility] Alk phos 104 40 - 130 Units/L [facility] ALT 16 7 - 55 Units/L [facility] AST 14 10 - 50 Units/L [facility] Blood 08/19/2024 6:53 AM CDT 08/19/2024 6:57 AM CDT us Oliverio Reddy MD LAB BLOOD ORDERABLES Final R esult [facility] [address] Department [place] [address] * IR Change Biliary Drainage Catheter External Or Internal External (08/16/2024 4:34 PM FOAM RUBBER MOLDER) Anatomical Region Laterality Modality Body N/A X-Ray Angiograph y 08/17/2024 7:52 AM FOAM RUBBER MOLDER Impressions 08/17/2024 7:52 AM FOAM RUBBER MOLDER Successful biliary catheter change as described above. PLAN: The patient will return for interval biliary drainage catheter exchange in 6 weeks. A spare gravity bag and caps were provided to the patient. Flush catheter with 10 cc saline slowly (over 30 seconds) once daily. [facility] - [phone] Electronically signed by: Nicolasa Moreira PA-C Narrative 08/17/2024 7:52 AM FOAM RUBBER MOLDER EXAMINATION: BILIARY TUBE CHANGE HISTORY/INDICATION: 73-year-old male [...] was obtained. Prior to beginning the procedure, [place] Protocol was performed to confirm the patient's [...] The catheter was then divided and a [place]son guidewire was advanced through the catheter under fluoroscopic monitoring. The existing catheter was exchanged over the wire for a new 18-Danish Haroon internal-external biliary drainage catheter with additional [...] was obtained. Prior to beginning the procedure, [place] Protocol was performed to confirm the patient's [...] The catheter was then divided and a Extra Life guidewire was advanced through the catheter under fluoroscopic monitoring. The existing catheter was exchanged over the wire for a new 18-Danish Haroon internal-external biliary drainage catheter with additional [...] saline slowly (over 30 seconds) once daily. [facility] - [phone] Electronically signed by: Nicolasa Moreira PA-C Jennifer CEDILLO IMG IR PROCEDURES Final Result * XR Chest 1 View (08/10/2024 9:03 AM FOAM RUBBER MOLDER) Anatomical Region Laterality Modality Body, Chest N/A Computed Radiogr aphy 08/10/2024 11:2 3 AM FOAM RUBBER MOLDER Narrative 08/10/2024 11:27 AM FOAM RUBBER MOLDER EXAM DESCRIPTION: XR CHEST 1 VIEW REASON [...] 11:27 AM - Electronically signed by Misael Bills M.D. MJ: NAM Report ID: [id number] Reading Location: [place] [address] Procedure Note Misael Bills MD - 08/10/2024 [...] 11:27 AM - Electronically signed by Misael Bills M.D. MJ: NAM Report ID: [id number] Reading Location: [id number] Victor Hugo Delacruz MD IMG XR PROCEDURES Alesia l Result * (ABNORMAL) eGFR (08/10/2024 8:27 AM FOAM RUBBER MOLDER) eGFR 53(L) >=60 mL/min/1. 73 m2 Comment: [...] was last reviewed 2021. Testing performed by: [facility], [address] [place] [address], [place]., [address] Blood 08/10/2024 8:27 AM FOAM RUBBER MOLDER 08/10/2024 8:57 AM FOAM RUBBER MOLDER us Victor Hugo Delacruz MD LAB BLOOD ORDERABLES F inal Result [facility] [address] [facility] Department [place] [address] * (ABNORMAL) Differential, auto (08/10/2024 8:27 AM FOAM RUBBER MOLDER) Neutrophil abs 6.1 1.5 - 6.5 K/cumm Comment:Testing performed by : [address] [address] Imm gran abs 0.2(H) 0.0 - 0.1 K/cumm [facility] Comment:Testing performed by : [address] [address] Lymphocyte abs 0.5(L) 0.8 - 3.3 K/cumm [facility] Comment:Testing performed by : [address] [address] Monocyte abs 0.8 0.2 - 0.8 K/cumm [facility] Comment:Testing performed by : [address] [address] Eosinophil abs 0.0 0.0 - 0.5 K/cumm [facility] Comment:Testing performed by : [address] [address] Basophil abs 0.0 0.0 - 0.1 K/cumm [facility] Comment:Testing performed by : [address] [address] Neutrophil pct 80.3 % [facility] Comment: Interpretive Data Percent cell count reference ranges are not reported, since discordance with absolute values may lead to misinterpretation of CBC data. Current Interpretive Data was last revised on 2017. Testing performed by: [address] [address] Imm gran pct 2.2 % [facility] Comment: Interpretive Data Percent cell count reference ranges are not reported, since discordance with absolute values may lead to misinterpretation of CBC data. Current Interpretive Data was last revised on 2017. Testing performed by: [address] [address] Lymphocyte pct 6.2 % [facility] Comment: Interpretive Data Percent cell count reference ranges are not reported, since discordance with absolute values may lead to misinterpretation of CBC data. Current Interpretive Data was last revised on 2017. Testing performed by: [address] [address] Monocyte pct 10.9 % [facility] Comment: Interpretive Data Percent cell count reference ranges are not reported, since discordance with absolute values may lead to misinterpretation of CBC data. Current Interpretive Data was last revised on 2017. Testing performed by: [address] [address] Eosinophil pct 0.1 % [facility] Comment: Interpretive Data Percent cell count reference ranges are not reported, since discordance with absolute values may lead to misinterpretation of CBC data. Current Interpretive Data was last revised on 2017. Testing performed by: [address] [address] Basophil pct 0.3 % [facility] Comment: Interpretive Data Percent cell count reference ranges are not reported, since discordance with absolute values may lead to misinterpretation of CBC data. Current Interpretive Data was last revised on 2017. Testing performed by: [address] [address] Blood 08/10/2024 8:27 AM FOAM RUBBER MOLDER 08/10/2024 8:57 AM FOAM RUBBER MOLDER us Roland Ross MD LAB BLOOD ORDERABLES Final Result [facility] [address] [facility] Department [place] [address] * (ABNORMAL) CBC with auto differential (08/10/2024 8:27 AM FOAM RUBBER MOLDER) WBC 7.6 3.8 - 9.9 K/cumm Comment:Testing performed by : [address] [address] Hgb 7.2(L) 13.0 - 17.5 g/dL [facility] Comment:Testing performed by : [address], [address] Hct 23.5(L) 38.9 - 50.3 % [facility] Comment:Testing performed by : [address] [address] Plt 175 150 - 400 K/cumm [facility] Comment:Testing performed by : [address], [address] MPV 11.6 9.1 - 12.3 fL [facility] Comment:Testing performed by : [address], [address] RBC 2.51(L) 4.30 - 5.80 M/cumm [facility] Comment:Testing performed by : [address], [address] MCV 93.6 81.3 - 96.4 fL [facility] Comment:Testing performed by : [address], [address] MCH 28.7 27.1 - 33.3 pg [facility] Comment:Testing performed by : [address], [address] MCHC 30.6(L) 32.3 - 35.7 g/dL [facility] Comment:Testing performed by : [address], [address] RDW CV 16.4(H) 11.1 - 14.9 % [facility] Comment:Testing performed by : [address], [address] RDW SD 55.3(H) 35.7 - 48.1 fL [facility] Comment:Testing performed by : [address], [address] NRBC abs 0.00 0.00 - 0.01 K/cumm [facility] Comment:Testing performed by : [address], [address] Blood 08/10/2024 8:27 AM FOAM RUBBER MOLDER 08/10/2024 8:57 AM FOAM RUBBER MOLDER us Roland Ross MD LAB BLOOD ORDERABLES Final Result [facility] [address] [facility] Department [place] [address] * (ABNORMAL) Comprehensive metabolic panel (08/10/2024 8:27 AM FOAM RUBBER MOLDER) Sodium 143 135 - 145 mmol/L Comment:Testing performed by : [address] [address] Potassium, pl 3.4 3.3 - 4.9 mmol/L [facility] Comment:Testing performed by : [address] [address] Chloride 115(H) 97 - 110 mmol/L [facility] Comment:Testing performed by : [address] [address] CO2 21(L) 22 - 32 mmol/L [facility] Comment:Testing performed by : [address] [address] Anion gap 7 2 - 15 mmol/L [facility] Comment:Testing performed by : [address] [address] BUN 30(H) 6 - 25 mg/dL [facility] Comment:Testing performed by : [address] [address] Creatinine 1.40(H) 0.80 - 1.30 mg/dL [facility] Comment:Testing performed by : [address] [address] Glucose 104 70 - 199 mg/dL [facility] [...] was last revised 2022. Testing performed by: [address] [address] Calcium 8.8 8.5 - 10.3 mg/dL [facility] Comment:Testing performed by : [address] [address] Bilirubin, total 0.9 0.1 - 1.2 mg/dL [facility] Comment:Testing performed by : [address] [address] Protein, pl 6.2(L) 6.5 - 8.5 g/dL [facility] Comment:Testing performed by : [address] [address] Albumin 3.1(L) 3.5 - 5.0 g/dL [facility] Comment:Testing performed by : [address] [address] Alk phos 83 40 - 130 Units/L [facility] Comment:Testing performed by : [address] [address] ALT 6(L) 7 - 55 Units/L [facility] Comment:Testing performed by : [address] [address] AST 7(L) 10 - 50 Units/L [facility] Comment:Testing performed by : [address] [address] Blood 08/10/2024 8:27 AM FOAM RUBBER MOLDER 08/10/2024 8:57 AM FOAM RUBBER MOLDER us Victor Hugo Delacruz MD LAB BLOOD ORDERABLES F inal Result [facility]TH[facility] [address] [facility] Department of Laboratories [place], [place] [id number] * (ABNORMAL) eGFR (08/09/2024 7:36 AM FOAM RUBBER MOLDER) [facility] eGFR 53(L) >=60 mL/min/1. 73 m2 Comment: [...] was last reviewed 2021. Testing performed by: [address] [address] Blood 08/09/2024 7:36 AM FOAM RUBBER MOLDER 08/09/2024 7:51 AM FOAM RUBBER MOLDER us Victor Hugo Delacruz MD LAB BLOOD ORDERABLES F inal Result MARTH[facility] [address] [facility] Department [place] [address] * (ABNORMAL) Differential, auto (08/09/2024 7:36 AM FOAM RUBBER MOLDER) Neutrophil abs 5.4 1.5 - 6.5 K/cumm Comment:Testing performed by : [address] [address] Imm gran abs 0.3(H) 0.0 - 0.1 K/cumm [facility] Comment:Testing performed by : [address] [address] Lymphocyte abs 0.5(L) 0.8 - 3.3 K/cumm [facility] Comment:Testing performed by : [address] [address] Monocyte abs 0.9(H) 0.2 - 0.8 K/cumm [facility] Comment:Testing performed by : [address] [address] Eosinophil abs 0.0 0.0 - 0.5 K/cumm [facility] Comment:Testing performed by : [address] [address] Basophil abs 0.0 0.0 - 0.1 K/cumm [facility] Comment:Testing performed by : [address] [address] Neutrophil pct 75.6 % [facility] Comment: Interpretive Data Percent cell count reference ranges are not reported, since discordance with absolute values may lead to misinterpretation of CBC data. Current Interpretive Data was last revised on 2017. Testing performed by: [address] [address] Imm gran pct 4.1 % [facility] Comment: Interpretive Data Percent cell count reference ranges are not reported, since discordance with absolute values may lead to misinterpretation of CBC data. Current Interpretive Data was last revised on 2017. Testing performed by: [address] [address] Lymphocyte pct 6.9 % [facility] Comment: Interpretive Data Percent cell count reference ranges are not reported, since discordance with absolute values may lead to misinterpretation of CBC data. Current Interpretive Data was last revised on 2017. Testing performed by: [address] [address] Monocyte pct 13.0 % [facility] Comment: Interpretive Data Percent cell count reference ranges are not reported, since discordance with absolute values may lead to misinterpretation of CBC data. Current Interpretive Data was last revised on 2017. Testing performed by: [address] [address] Eosinophil pct 0.1 % [facility] Comment: Interpretive Data Percent cell count reference ranges are not reported, since discordance with absolute values may lead to misinterpretation of CBC data. Current Interpretive Data was last revised on 2017. Testing performed by: [address] [address] Basophil pct 0.3 % [facility] Comment: Interpretive Data Percent cell count reference ranges are not reported, since discordance with absolute values may lead to misinterpretation of CBC data. Current Interpretive Data was last revised on 2017. Testing performed by: [address] [address] Blood 08/09/2024 7:36 AM FOAM RUBBER MOLDER 08/09/2024 7:53 AM FOAM RUBBER MOLDER us Roland Ross MD LAB BLOOD ORDERABLES Final Result [facility] [address] [facility] Department [place] [address] * (ABNORMAL) CBC with auto differential (08/09/2024 7:36 AM FOAM RUBBER MOLDER) WBC 7.2 3.8 - 9.9 K/cumm Comment:Testing performed by : [address] [address] Hgb 7.3(L) 13.0 - 17.5 g/dL [facility] Comment:Testing performed by : [address] [address] Hct 23.8(L) 38.9 - 50.3 % [facility] Comment:Testing performed by : [address] [address] Plt 165 150 - 400 K/cumm [facility] Comment:Testing performed by : [address] [address] MPV 11.4 9.1 - 12.3 fL [facility] Comment:Testing performed by : [address] [address] RBC 2.52(L) 4.30 - 5.80 M/cumm [facility] Comment:Testing performed by : [address] [address] MCV 94.4 81.3 - 96.4 fL [facility] Comment:Testing performed by : [address] [address] MCH 29.0 27.1 - 33.3 pg [facility] Comment:Testing performed by : [address] [address] MCHC 30.7(L) 32.3 - 35.7 g/dL [facility] Comment:Testing performed by : [address] [address] RDW CV 16.9(H) 11.1 - 14.9 % [facility] Comment:Testing performed by : [address] [address] RDW SD 57.5(H) 35.7 - 48.1 fL [facility] Comment:Testing performed by : [address] [address] NRBC abs 0.00 0.00 - 0.01 K/cumm [facility] Comment:Testing performed by : [address] [address] Blood 08/09/2024 7:36 AM FOAM RUBBER MOLDER 08/09/2024 7:53 AM FOAM RUBBER MOLDER Roland Ross MD LAB BLOOD ORDERABLES Final Result [facility] [place] [facility] [facility] Department of Laboratories [place], [place] [id number] * (ABNORMAL) Comprehensive metabolic panel (08/09/2024 7:36 AM FOAM RUBBER MOLDER) Sodium 141 135 - 145 mmol/L Comment:Testing performed by : [address] [address] Potassium, pl 3.6 3.3 - 4.9 mmol/L [facility] Comment:Testing performed by : [address] [address] Chloride 112(H) 97 - 110 mmol/L [facility] Comment:Testing performed by : [address] [address] CO2 19(L) 22 - 32 mmol/L [facility] Comment:Testing performed by : [address] [address] Anion gap 10 2 - 15 mmol/L [facility] Comment:Testing performed by : [address] [address] BUN 34(H) 6 - 25 mg/dL [facility] Comment:Testing performed by : [address] [address] Creatinine 1.40(H) 0.80 - 1.30 mg/dL [facility] Comment:Testing performed by : [address] [address] Glucose 77 70 - 199 mg/dL [facility] [...] was last revised 2022. Testing performed by: [address] [address] Calcium 8.7 8.5 - 10.3 mg/dL [facility] Comment:Testing performed by : [address] [address] Bilirubin, total 0.9 0.1 - 1.2 mg/dL [facility] Comment:Testing performed by : [address] [address] Protein, pl 5.8(L) 6.5 - 8.5 g/dL [facility] Comment:Testing performed by : [address] [address] Albumin 2.8(L) 3.5 - 5.0 g/dL [facility] Comment:Testing performed by : [address] [address] Alk phos 85 40 - 130 Units/L [facility] Comment:Testing performed by : [facility], [address] [place] [address]., [address] ALT 8 7 - 55 Units/L [facility] Comment:Testing performed by : [address] [address] AST 9(L) 10 - 50 Units/L [facility] Comment:Testing performed by : [address] [address] Blood 08/09/2024 7:36 AM FOAM RUBBER MOLDER 08/09/2024 7:51 AM FOAM RUBBER MOLDER us Victor Hugo Delacruz MD LAB BLOOD ORDERABLES F inal Result [facility]TH[facility] [address] [facility] [place] [address] * (ABNORMAL) eGFR (08/08/2024 9:18 AM FOAM RUBBER MOLDER) eGFR 45(L) >=60 mL/min/1. 73 m2 Comment: [...] was last reviewed 2021. Testing performed by: [address] [address] Blood 08/08/2024 9:18 AM FOAM RUBBER MOLDER 08/08/2024 9:30 AM FOAM RUBBER MOLDER Victor Hugo Delacruz MD LAB BLOOD ORDERABLES F inal Result [facility]TH[facility] [address] [facility] Department [place] [address] * (ABNORMAL) Differential, auto (08/08/2024 9:18 AM FOAM RUBBER MOLDER) Neutrophil abs 7.3(H) 1.5 - 6.5 K/cumm Comment:Testing performed by : [address] [address] Imm gran abs 0.4(H) 0.0 - 0.1 K/cumm [facility] Comment:Testing performed by : [address] [address] Lymphocyte abs 0.4(L) 0.8 - 3.3 K/cumm [facility] Comment:Testing performed by : [address] [address] Monocyte abs 0.7 0.2 - 0.8 K/cumm [facility] Comment:Testing performed by : [address] [address] Eosinophil abs 0.0 0.0 - 0.5 K/cumm [facility] Comment:Testing performed by : [address] [address] Basophil abs 0.0 0.0 - 0.1 K/cumm [facility] Comment:Testing performed by : [address] [address] Neutrophil pct 83.0 % [facility] Comment: Interpretive Data Percent cell count reference ranges are not reported, since discordance with absolute values may lead to misinterpretation of CBC data. Current Interpretive Data was last revised on 2017. Testing performed by: [address] [address] Imm gran pct 4.8 % [facility] Comment: Interpretive Data Percent cell count reference ranges are not reported, since discordance with absolute values may lead to misinterpretation of CBC data. Current Interpretive Data was last revised on 2017. Testing performed by: [address] [address] Lymphocyte pct 4.2 % [facility] Comment: Interpretive Data Percent cell count reference ranges are not reported, since discordance with absolute values may lead to misinterpretation of CBC data. Current Interpretive Data was last revised on 2017. Testing performed by: [address] [address] Monocyte pct 7.6 % [facility] Comment: Interpretive Data Percent cell count reference ranges are not reported, since discordance with absolute values may lead to misinterpretation of CBC data. Current Interpretive Data was last revised on 2017. Testing performed by: [address] [address] Eosinophil pct 0.1 % [facility] Comment: Interpretive Data Percent cell count reference ranges are not reported, since discordance with absolute values may lead to misinterpretation of CBC data. Current Interpretive Data was last revised on 2017. Testing performed by: [address] [address] Basophil pct 0.3 % [facility] Comment: Interpretive Data Percent cell count reference ranges are not reported, since discordance with absolute values may lead to misinterpretation of CBC data. Current Interpretive Data was last revised on 2017. Testing performed by: [address] [address] Blood 08/08/2024 9:18 AM FOAM RUBBER MOLDER 08/08/2024 9:31 AM FOAM RUBBER MOLDER us Roland Ross MD LAB BLOOD ORDERABLES Final Result [facility] [address] [facility] [place] [address] * (ABNORMAL) Iron profile w/ IBC (08/08/2024 9:18 AM FOAM RUBBER MOLDER) Iron 56 50 - 150 mcg/dL Comment:Testing performed by : [address] [address] TIBC 148(L) 250 - 400 mcg/dL [facility] Comment:Testing performed by : [address] [address] Transferrin saturation 38 20 - 50 % [facility] Comment:Testing performed by : [address] [address] Blood 08/08/2024 9:18 AM FOAM RUBBER MOLDER 08/08/2024 9:30 AM FOAM RUBBER MOLDER us Roland Ross MD LAB BLOOD ORDERABLES Final Result [facility] [address] [facility] Department [place] [address] * (ABNORMAL) CBC with auto differential (08/08/2024 9:18 AM FOAM RUBBER MOLDER) WBC 8.8 3.8 - 9.9 K/cumm Comment:Testing performed by : [address] [address] Hgb 7.7(L) 13.0 - 17.5 g/dL [facility] Comment:Testing performed by : [address] [address] Hct 25.6(L) 38.9 - 50.3 % [facility] Comment:Testing performed by : [address] [address] Plt 172 150 - 400 K/cumm [facility] Comment:Testing performed by : [address] [address] MPV 11.0 9.1 - 12.3 fL [facility] Comment:Testing performed by : [address] [address] RBC 2.70(L) 4.30 - 5.80 M/cumm [facility] Comment:Testing performed by : [address] [address] MCV 94.8 81.3 - 96.4 fL [facility] Comment:Testing performed by : [address] [address] MCH 28.5 27.1 - 33.3 pg [facility] Comment:Testing performed by : [address] [address] MCHC 30.1(L) 32.3 - 35.7 g/dL [facility] Comment:Testing performed by : [address] [address] RDW CV 17.2(H) 11.1 - 14.9 % [facility] Comment:Testing performed by : [address] [address] RDW SD 59.7(H) 35.7 - 48.1 fL [facility] Comment:Testing performed by : [address] [address] NRBC abs 0.00 0.00 - 0.01 K/cumm [facility] Comment:Testing performed by : [address], [address] Blood 08/08/2024 9:18 AM FOAM RUBBER MOLDER 08/08/2024 9:31 AM FOAM RUBBER MOLDER us Roland Ross MD LAB BLOOD ORDERABLES Final Result Performing Organization Address [facility] Co de Phone Number 60 [address] [place] [address] * (ABNORMAL) CRP (acute phase) (08/08/2024 9:18 AM FOAM RUBBER MOLDER) CRP 51.5(H) <=10.0 mg/L Comment:Testing performed by : [address] [address] Blood 08/08/2024 9:18 AM FOAM RUBBER MOLDER 08/08/2024 9:30 AM FOAM RUBBER MOLDER us Victor Hugo Delacruz MD LAB BLOOD ORDERABLES F inal Result Performing Organization Address City/[facility]/ZIP Co de Phone Number [address] [place] [address] * Folate (08/08/2024 9:18 AM FOAM RUBBER MOLDER) Pathologist [facility] Folic acid 6.9 >=5.0 ng/mL Comment:Testing performed by : [address] [address] Blood 08/08/2024 9:18 AM FOAM RUBBER MOLDER 08/08/2024 9:30 AM FOAM RUBBER MOLDER Roland Ross MD LAB BLOOD ORDERABLES Final Result Performing Organization Address [facility]/ZIP Co de Phone Number [address] [address] * (ABNORMAL) Ferritin (08/08/2024 9:18 AM FOAM RUBBER MOLDER) [facility] Ferritin 3,718(H) 30 - 400 ng/mL Comment:Testing performed by : [address] [address] Blood 08/08/2024 9:18 AM FOAM RUBBER MOLDER 08/08/2024 9:30 AM FOAM RUBBER MOLDER Roland Ross MD LAB BLOOD ORDERABLES Final Result Performing Organization Address [facility] Co de Phone Number [address] [address] * (ABNORMAL) Vitamin B12 (08/08/2024 9:18 AM FOAM RUBBER MOLDER) [facility] Vitamin B12 >2,000(H) 230 - 1,250 pg/mL Comment:Testing performed by : [address] [address] Blood 08/08/2024 9:18 AM FOAM RUBBER MOLDER 08/08/2024 9:30 AM FOAM RUBBER MOLDER Roland Ross MD LAB BLOOD ORDERABLES Final Result Performing Organization Address City/[facility] de Phone Number JEANNA[address] [address] * Vancomycin level random (08/08/2024 9:18 AM FOAM RUBBER MOLDER) Pathologist [facility] Vancomycin random 20.8 mcg/mL Comment: Interpretive Data No reference ranges have been established for random drug levels. Current Interpretive Data was last revised on 2020. Testing performed by: [address] [address] Blood 08/08/2024 9:18 AM FOAM RUBBER MOLDER 08/08/2024 9:30 AM FOAM RUBBER MOLDER us Alphonso Hutchins MD LAB BLOOD ORDERABLES Alesia l Result Performing Organization Address [facility] Co de Phone Number JEANNA[address] [place] [address] * (ABNORMAL) Comprehensive metabolic panel (08/08/2024 9:18 AM FOAM RUBBER MOLDER) Pathologist [facility] Sodium 147(H) 135 - 145 mmol/L Comment:Testing performed by : [address] [address] Potassium, pl 3.9 3.3 - 4.9 mmol/L MARTHA Comment:Testing performed by : [address] [address] Chloride 116(H) 97 - 110 mmol/L MARTHA Comment:Testing performed by : [address] [address] CO2 21(L) 22 - 32 mmol/L MARTHA Comment:Testing performed by : [address] [address] Anion gap 10 2 - 15 mmol/L MARTHA Comment:Testing performed by : [address] [address] BUN 35(H) 6 - 25 mg/dL MARTHA Comment:Testing performed by : [address] [address] Creatinine 1.60(H) 0.80 - 1.30 mg/dL MARTHA Comment:Testing performed by : [address] [address] Glucose 88 70 - 199 mg/dL MARTHA [...] was last revised 2022. Testing performed by: [address] [address] Calcium 9.1 8.5 - 10.3 mg/dL MARTHA Comment:Testing performed by : [address] [address] Bilirubin, total 1.0 0.1 - 1.2 mg/dL MARTHA Comment:Testing performed by : [address] [address] Protein, pl 6.4(L) 6.5 - 8.5 g/dL [facility] Comment:Testing performed by : [address] [address] Albumin 3.1(L) 3.5 - 5.0 g/dL [facility] Comment:Testing performed by : [address] [address] Alk phos 95 40 - 130 Units/L MARTHA Comment:Testing performed by : [address] [address] ALT 10 7 - 55 Units/L MARTHA Comment:Testing performed by : [address] [address] AST 11 10 - 50 Units/L MARTHA Comment:Testing performed by : [address] [address] Blood 08/08/2024 9:18 AM FOAM RUBBER MOLDER 08/08/2024 9:30 AM FOAM RUBBER MOLDER us Victor Hugo Delacruz MD LAB BLOOD ORDERABLES F inal Result JEANNANER MH [address] [facility] Department [place] [address] * XR Chest 1 View (08/08/2024 8:21 AM FOAM RUBBER MOLDER) Anatomical Region Laterality Modality Body, Chest N/A Computed Radiogr aphy 08/08/2024 10:0 6 AM FOAM RUBBER MOLDER Narrative 08/08/2024 10:09 AM FOAM RUBBER MOLDER EXAM DESCRIPTION: XR CHEST 1 VIEW REASON [...] gross acute interval change. Right chest wall Csqtwl-Y-[id number]. IMPRESSION: No significant change in appearance of the chest when compared to the previous chest radiograph dated 08/06/2024. THIS IS AN ELECTRONICALLY VERIFIED FINAL REPORT 08/08/2024 10:09 AM - Electronically signed by Bryce Osei D.O. AP: AP Report ID: [id number] Reading Location: [id number] Procedure Note Bryce Osei, DO - 08/08/2024 [...] without gross acute interval change. Rightchest wall Aoadoz-M-Mnll. IMPRESSION: No significant change in appearance of the chest when comparedto the previous chest radiograph dated 08/06/2024. THIS IS AN ELECTRONICALLY VERIFIED FINAL REPORT 08/08/2024 10:09 AM - Electronically signed by Bryce Osei D.O. AP: AP Report ID: [id number] Reading Location: [place] [address] Victor Hugo Delacruz MD IMG XR PROCEDURES Alesia l Result * Infection Prevention MRSA Only (Staphylococcus aureus) PCR Nasal (08/08/2024 8:04 AM FOAM RUBBER MOLDER) PCR Scrn, Methicillin resistant Staphylococcus aureus (MRSA) Not Detected Not Detected Comment: Interpretive Data Testing performed using Nucleic Acid Amplification with the CepiPeenid Xpert MRSA NxG Assay. This assay detects target DNA from mecA, mecC and the SCCmec insertion site of Staphylococcus aureus using Real-Time PCR and has been cleared by the FDA. Performance characteristics have been verified by the [facility]. Current Interpretive Data was last revised on 2023 Testing performed by: [facility], [address] [place] [address]., [address] Nasal 08/08/2024 8:04 AM FOAM RUBBER MOLDER 08/08/2024 8:09 AM FOAM RUBBER MOLDER Victor Hugo Delacruz MD LAB MICROBIOLOGY - GEN ERAL ORDERABLES Final Result MARTHA [address] [facility] Department [place] [address] * Infection Prevention MRSA Only (Staphylococcus aureus) PCR Nasal (08/07/2024 9:29 AM FOAM RUBBER MOLDER) PCR Scrn, Methicillin resistant Staphylococcus aureus (MRSA) Not Detected Not Detected Comment: Interpretive Data Testing performed using Nucleic Acid Amplification with the Press Xpert MRSA NxG Assay. This assay detects target DNA from mecA, mecC and the SCCmec insertion site of Staphylococcus aureus using Real-Time PCR and has been cleared by the FDA. Performance characteristics have been verified by the [facility]. Current Interpretive Data was last revised on 2023 Testing performed by: [facility], [address] [place] [address]., [address] Nasal 08/07/2024 9:29 AM FOAM RUBBER MOLDER 08/07/2024 9:40 AM FOAM RUBBER MOLDER Victor Hugo Delacruz MD LAB MICROBIOLOGY - GEN ERAL ORDERABLES Final Result MARTHA [address] [facility] [place] [address] * (ABNORMAL) eGFR (08/07/2024 6:28 AM FOAM RUBBER MOLDER) eGFR 39(L) >=60 mL/min/1. 73 m2 Comment: [...] was last reviewed 2021. Testing performed by: [address] [address] Blood 08/07/2024 6:28 AM FOAM RUBBER MOLDER 08/07/2024 7:15 AM FOAM RUBBER MOLDER us Biju Hayes ESCAPEMENT MAKER LAB BLOOD ORDERABLES Final R esult [facility] [address] [facility] Department [place] [address] * (ABNORMAL) Differential, auto (08/07/2024 6:28 AM FOAM RUBBER MOLDER) Neutrophil abs 5.1 1.5 - 6.5 K/cumm Comment:Testing performed by : [address] [address] Imm gran abs 0.6(H) 0.0 - 0.1 K/cumm MARTHA Comment:Testing performed by : [address] [address] Lymphocyte abs 0.4(L) 0.8 - 3.3 K/cumm MARTHA Comment:Testing performed by : [address] [address] Monocyte abs 0.9(H) 0.2 - 0.8 K/cumm MARTHA Comment:Testing performed by : [address] [address] Eosinophil abs 0.0 0.0 - 0.5 K/cumm MARTHA Comment:Testing performed by : [address] [address] Basophil abs 0.0 0.0 - 0.1 K/cumm MARTHA Comment:Testing performed by : [address] [address] Neutrophil pct 73.2 % MARTHA Comment: Interpretive Data Percent cell count reference ranges are not reported, since discordance with absolute values may lead to misinterpretation of CBC data. Current Interpretive Data was last revised on 2017. Testing performed by: [address] [address] Imm gran pct 8.0 % [facility] Comment: Interpretive Data Percent cell count reference ranges are not reported, since discordance with absolute values may lead to misinterpretation of CBC data. Current Interpretive Data was last revised on 2017. Testing performed by: [address] [address] Lymphocyte pct 6.1 % [facility] Comment: Interpretive Data Percent cell count reference ranges are not reported, since discordance with absolute values may lead to misinterpretation of CBC data. Current Interpretive Data was last revised on 2017. Testing performed by: [address] [address] Monocyte pct 12.3 % [facility] Comment: Interpretive Data Percent cell count reference ranges are not reported, since discordance with absolute values may lead to misinterpretation of CBC data. Current Interpretive Data was last revised on 2017. Testing performed by: [address] [address] Eosinophil pct 0.1 % [facility] Comment: Interpretive Data Percent cell count reference ranges are not reported, since discordance with absolute values may lead to misinterpretation of CBC data. Current Interpretive Data was last revised on 2017. Testing performed by: [address] [address] Basophil pct 0.3 % [facility] Comment: Interpretive Data Percent cell count reference ranges are not reported, since discordance with absolute values may lead to misinterpretation of CBC data. Current Interpretive Data was last revised on 2017. Testing performed by: [address] [address] Blood 08/07/2024 6:28 AM FOAM RUBBER MOLDER 08/07/2024 7:15 AM FOAM RUBBER MOLDER us iBju Hayes ESCAPEMENT MAKER LAB BLOOD ORDERABLES Final R esult MARTHA HALL [address] [facility] [place] [address] * (ABNORMAL) CBC with auto differential (08/07/2024 6:28 AM FOAM RUBBER MOLDER) [facility] WBC 7.0 3.8 - 9.9 K/cumm Comment:Testing performed by : [address] [address] Hgb 7.5(L) 13.0 - 17.5 g/dL MARTHA Comment:Testing performed by : [address] [address] Hct 24.8(L) 38.9 - 50.3 % MARTHA Comment:Testing performed by : [address] [address] Plt 126(L) 150 - 400 K/cumm MARTHA Comment:Testing performed by : [address] [address] MPV 10.7 9.1 - 12.3 fL MARTHA Comment:Testing performed by : [address] [address] RBC 2.63(L) 4.30 - 5.80 M/cumm MARTHA Comment:Testing performed by : [address] [address] MCV 94.3 81.3 - 96.4 fL MARTHA Comment:Testing performed by : [address] [address] MCH 28.5 27.1 - 33.3 pg MARTHA Comment:Testing performed by : [address] [address] MCHC 30.2(L) 32.3 - 35.7 g/dL MARTHA Comment:Testing performed by : [address] [address] RDW CV 17.2(H) 11.1 - 14.9 % MARTHA Comment:Testing performed by : [address] [address] RDW SD 58.7(H) 35.7 - 48.1 fL MARTHA Comment:Testing performed by : [address] [address] NRBC abs 0.00 0.00 - 0.01 K/cumm MARTHA Comment:Testing performed by : [address] [address] Blood 08/07/2024 6:28 AM FOAM RUBBER MOLDER 08/07/2024 7:15 AM FOAM RUBBER MOLDER us Biju Hayes ESCAPEMENT MAKER LAB BLOOD ORDERABLES Edited Result - Final MARTHA [address] [facility] Department [place] [address] * (ABNORMAL) Manual Differential (08/07/2024 6:28 AM FOAM RUBBER MOLDER) Differential Auto Comment:Testing performed by : [address] [address] Neutrophil abs 5.1 1.5 - 6.5 K/cumm MARTHA Comment:Testing performed by : [address] [address] Imm gran abs 0.6(H) 0.0 - 0.1 K/cumm MARTHA Comment:Testing performed by : [address] [address] Lymphocyte abs 0.4(L) 0.8 - 3.3 K/cumm MARTHA Comment:Testing performed by : [address] [address] Monocyte abs 0.9(H) 0.2 - 0.8 K/cumm MARTHA Comment:Testing performed by : [address] [address] Eosinophil abs 0.0 0.0 - 0.5 K/cumm MARTHA Comment:Testing performed by : [address] [address] Basophil abs 0.0 0.0 - 0.1 K/cumm MARTHA Comment:Testing performed by : [address] [address] Neutrophil pct 73.2 % MARTHA Comment: Interpretive Data Percent cell count reference ranges are not reported, since discordance with absolute values may lead to misinterpretation of CBC data. Current Interpretive Data was last revised on 2017. Testing performed by: [address] [address] Imm gran pct 8.0 % MARTHA Comment: Interpretive Data Percent cell count reference ranges are not reported, since discordance with absolute values may lead to misinterpretation of CBC data. Current Interpretive Data was last revised on 2017. Testing performed by: [address] [address] Lymphocyte pct 6.1 % MARTHA Comment: Interpretive Data Percent cell count reference ranges are not reported, since discordance with absolute values may lead to misinterpretation of CBC data. Current Interpretive Data was last revised on 2017. Testing performed by: [address] [address] Monocyte pct 12.3 % MARTHA Comment: Interpretive Data Percent cell count reference ranges are not reported, since discordance with absolute values may lead to misinterpretation of CBC data. Current Interpretive Data was last revised on 2017. Testing performed by: [address] [address] Eosinophil pct 0.1 % MARTHA Comment: Interpretive Data Percent cell count reference ranges are not reported, since discordance with absolute values may lead to misinterpretation of CBC data. Current Interpretive Data was last revised on 2017. Testing performed by: [address] [address] Basophil pct 0.3 % MARTHA Comment: Interpretive Data Percent cell count reference ranges are not reported, since discordance with absolute values may lead to misinterpretation of CBC data. Current Interpretive Data was last revised on 2017. Testing performed by: [address] [address] RBC morphology Consistent with RBC Indicies MARTHA Comment:Testing performed by : [address] [address] Platelet estimate Automated Count Confirmed MARTHA Comment:Testing performed by : [address] [address] Blood 08/07/2024 6:28 AM FOAM RUBBER MOLDER 08/07/2024 7:15 AM FOAM RUBBER MOLDER Biju Hayes ESCAPEMENT MAKER LAB BLOOD ORDERABLES Final R critical access hospital Performing Organization Address [facility] Co de Phone Number MARTHA [address] [address] * Phosphorus (08/07/2024 6:28 AM FOAM RUBBER MOLDER) Phosphorus, pl 3.7 2.3 - 4.5 mg/dL Comment:Testing performed by : [address] [address] Blood 08/07/2024 6:28 AM FOAM RUBBER MOLDER 08/07/2024 7:15 AM FOAM RUBBER MOLDER Biju Hayes ESCAPEMENT MAKER LAB BLOOD ORDERABLES Final R critical access hospital Performing Organization Address [facility] de Phone Number MARTHA [address] [address] * Magnesium (08/07/2024 6:28 AM FOAM RUBBER MOLDER) Magnesium 1.9 1.4 - 2.5 mg/dL Comment:Testing performed by : [address] [address] Blood 08/07/2024 6:28 AM FOAM RUBBER MOLDER 08/07/2024 7:15 AM FOAM RUBBER MOLDER Biju Hayes ESCAPEMENT MAKER LAB BLOOD ORDERABLES Final [facility] Performing Organization Address [facility] Co de Phone Number MARTHA [address] [address] * Vancomycin level random (08/07/2024 6:28 AM FOAM RUBBER MOLDER) Vancomycin random 14.8 mcg/mL Comment: Interpretive Data No reference ranges have been established for random drug levels. Current Interpretive Data was last revised on 2020. Testing performed by: [address] [address] Blood 08/07/2024 6:28 AM FOAM RUBBER MOLDER 08/07/2024 7:15 AM FOAM RUBBER MOLDER us Alphonso Hutchins MD LAB BLOOD ORDERABLES Alesia stephen Result [facility] [address] [facility] Department [place] [address] * (ABNORMAL) Comprehensive metabolic panel (08/07/2024 6:28 AM FOAM RUBBER MOLDER) Sodium 145 135 - 145 mmol/L Comment:Testing performed by : [address] [address] Potassium, pl 4.1 3.3 - 4.9 mmol/L MARTHA Comment:Testing performed by : [address] [address] Chloride 113(H) 97 - 110 mmol/L MARTHA Comment:Testing performed by : [address] [address] CO2 21(L) 22 - 32 mmol/L MARTHA Comment:Testing performed by : [address] [address] Anion gap 11 2 - 15 mmol/L MARTHA Comment:Testing performed by : [address] [address] BUN 35(H) 6 - 25 mg/dL MARTHA Comment:Testing performed by : [address] [address] Creatinine 1.80(H) 0.80 - 1.30 mg/dL MARTHA Comment:Testing performed by : [address] [address] Glucose 80 70 - 199 mg/dL MARTHA Comment: Interpretive [...] was last revised 2022. Testing performed by: [address] [address] Calcium 9.3 8.5 - 10.3 mg/dL MARTHA Comment:Testing performed by : [address] [address] Bilirubin, total 1.2 0.1 - 1.2 mg/dL MARTHA Comment:Testing performed by : [address] [address] Protein, pl 6.4(L) 6.5 - 8.5 g/dL MARTHA Comment:Testing performed by : [address] [address] Albumin 3.1(L) 3.5 - 5.0 g/dL MARTHA Comment:Testing performed by : [address] [address] Alk phos 104 40 - 130 Units/L MARTHA Comment:Testing performed by : [address] [address] ALT 11 7 - 55 Units/L MARTHA Comment:Testing performed by : [address] [address] AST 11 10 - 50 Units/L MARTHA Comment:Testing performed by : [address] [address] Blood 08/07/2024 6:28 AM FOAM RUBBER MOLDER 08/07/2024 7:15 AM FOAM RUBBER MOLDER us Biju Hayes NP LAB BLOOD ORDERABLES Final R esult MARTHA [address] [facility] Department of Laboratories [place], [place] [id number] * US Kidney Complete (08/06/2024 4:48 PM FOAM RUBBER MOLDER) Anatomical Region Laterality Modality Kidney N/A Ultrasound 08/06/2024 6:51 PM FOAM RUBBER MOLDER Narrative 08/06/2024 6:55 PM FOAM RUBBER MOLDER EXAM DESCRIPTION: US KIDNEY COMPLETE REASON FOR [...] 6:55 PM - Electronically signed by Brian Barlow M.D. KH: TAWANA Report ID: [id number] Reading Location: [id number] Procedure Note Brian Barlow MD - 08/06/2024 [...] 6:55 PM - Electronically signed by Brian Barlow M.D. KH: TAWANA Report ID: [id number] Reading Location: [place] [address] us Biju Hayes ESCAPEMENT MAKER IMG US PROCEDURES Final Resu lt * (ABNORMAL) Urinalysis reflex to microscopic and culture Urine, clean voided (08/06/2024 1:54 PM FOAM RUBBER MOLDER) Color, ur Yellow Yellow Comment:Testing performed by : [address] [address] Clarity, ur Clear Clear MARTHA Comment:Testing performed by : [address] [address] Specific gravity, ur 1.027 1.003 - 1.030 MARTHA Comment:Testing performed by : [address] [address] pH, urine 5.5 MARTHA Comment: Interpretive Data U rine pH is affected by diet, medications, systemic acid-base disturbances, and renal tubular function. pH may affect urinary stone formation. For example, urine pH below 6.0 may help reduce the tendency for calcium phosphate stones and pH greater than 6.0 may reduce the tendency for uric acid stone formation. Source: [place] [employer] Current Interpretive Data was last revised on 2017 Testing performed by: [address] [address] Protein, ur ql 1+(A) Negative MARTHA Comment:Testing performed by : [address] [address] Glucose, ur ql Negative Negative MARTHA Comment:Testing performed by : [address] [address] Ketones, ur 1+(A) Negative MARTHA Comment:Testing performed by : [address] [address] Bilirubin, ur Negative Negative MARTHA Comment:Testing performed by : [facility], [address] [place] [address]., [address] Blood, ur 1+(A) Negative MARTHA Comment:Testing performed by : [address] [address] Urobilinogen, ur <2.0 <2.0 mg/dL MARTHA Comment:Testing performed by : [address] [address] Nitrite, ur Negative Negative MARTHA Comment:Testing performed by : [address], [place]., [address] Leukocyte esterase, ur 1+(A) Negative MARTHA Comment:Testing performed by : [address] [address] UA reflex comment Reflex to microscopic UA will be performed. MARTHA Comment:Testing performed by : [address] [address] Urine, clean voided 08/06/2024 1:54 PM FOAM RUBBER MOLDER 08/06/2024 2:05 PM FOAM RUBBER MOLDER Biju Hayes NP LAB MICROBIOLOGY - GENERAL O RDERABLES Final Result Performing Organization Address [facility] Co de Phone Number MARTHA [address] [place] [address] * Sodium, urine, random (08/06/2024 1:54 PM FOAM RUBBER MOLDER) Sodium, ur 81 mmol/L Comment: Interpretive Data No reference range established. Current interpretive data was last revised 2018. Urine 08/06/2024 1:54 PM FOAM RUBBER MOLDER 08/06/2024 4:41 PM FOAM RUBBER MOLDER Biju Hayes ESCAPEMENT MAKER LAB URINE ORDERABLES Final R esult Performing Organization Address City/[facility] Co de Phone Number MARTHA [address] [place] [address] * Creatinine, urine, random (08/06/2024 1:54 PM FOAM RUBBER MOLDER) Creatinine Ur 50.7 mg/dL Comment: Interpretive Data No reference range established. Current interpretive data was last revised 2018. Testing performed by: [address] [address] Urine 08/06/2024 1:54 PM FOAM RUBBER MOLDER 08/06/2024 2:07 PM FOAM RUBBER MOLDER Biju Hayes ESCAPEMENT MAKER LAB URINE ORDERABLES Final R esult Performing Organization Address [facility] Co de Phone Number MARTHA [address] [facility] [place] [address] * (ABNORMAL) Urinalysis, microscopic only (08/06/2024 1:54 PM FOAM RUBBER MOLDER) WBC, ur 6-10(A) 0 - 5 /HPF Comment:Testing performed by : [address] [address] RBC, ur 11-20(A) 0 - 2 /HPF MARTHA Comment:Testing performed by : [address] [address] Epithelial cells, squamous, ur 6-10(A) 0 - 5 /HPF MARTHA Comment:Testing performed by : [address] [address] Mucous, ur Present(A) MARTHA Comment:Testing performed by : [address] [address] Culture Reflex Comment Reflex conditions for urine culture (WBC >10) not met. MARTHA Comment:Testing performed by : [address] [address] Urine, clean voided 08/06/2024 1:54 PM FOAM RUBBER MOLDER 08/06/2024 2:05 PM FOAM RUBBER MOLDER Biju Hayes ESCAPEMENT MAKER LAB URINE ORDERABLES Final R esult Performing Organization Address City/[facility] Co de Phone Number MARTHA [address] [facility] [place] [place] [address] * (ABNORMAL) Pneumonia PCR with aerobic culture and Gram stain Sputum (08/06/2024 1:28 PM FOAM RUBBER MOLDER) Direct Specimen Exam Stain: Abundant squamous epithelial cells seen indicating excessive oropharyngeal contamination. Culture will not be processed further. Please submit another specimen. Smear results called to and read back by: Mary Ann Lucas MLS [phone] on 08/06/2024 21:10:37 by: Geovanna Mcclain MT Results phoned to and read back by: [id number] on 08/06/2024 22:55:25 by: [id number] Comment:Testing performed by : [facility], [address] [place] [address]., [address] Direct Specimen Exam Molecular Analysis: Abundant squamous epithelial cells observed on Gram stain. Specimen will not be processed for rapid molecular analysis. MARTHA HALL Comment:Testing performed by : [facility], [address] [place] [address]., [id number] Report Final Report: This is the final report. (.) MARTHA Comment:Testing performed by : [facility], [address] [place] [address], [address] Sputum 08/06/2024 1:28 PM FOAM RUBBER MOLDER 08/06/2024 6:20 PM FOAM RUBBER MOLDER [facility] MARTHA - 08/07/2024 7:37 AM FOAM RUBBER MOLDER When rapid molecular testing results are reported, testing completed using the EcoVadisArray Pneumonia Panel. This molecular assay detects: Acinetobacter [...] performance characteristics have been confirmed by the [facility]. The performance of the FilmArray Pneumonia Panel has not been established for monitoring treatment of infection and bacterial nucleic acids may persist independent of organism viability. us Biju Hayes NP LAB MICROBIOLOGY - GENERAL O RDERABLES Final Result Performing Organization Address City/[facility]/ZIP Co de Phone Number MARTHA [facility] [facility] [place] [address] * (ABNORMAL) Troponin T high-sensitivity 6-hour (08/06/2024 12:12 PM FOAM RUBBER MOLDER) Trop T hs 116(H) <=22 ng/L Comment: Interpretive Data For further hscTnT resources including the diagnostic algorithm and an aid in interpretation, copy and paste this link: https://nrl.testcatalog.org/show/hsTrop Current Interpretive Data last revised 2020. Testing performed by: [address] [address] Trop T hs pct delta -10 % MARTHA Comment:Testing performed by : [address] [address] Trop T hs interp Equivocal MARTHA Comment:Testing performed by : [address] [address] Blood 08/06/2024 12:1 2 PM FOAM RUBBER MOLDER 08/06/2024 12:32 PM FOAM RUBBER MOLDER Jimmy Levy DO LAB BLOOD ORDERABLES Final Result Performing Organization Address City/[facility]/ZIP Co de Phone Number JEANNA[address] [address] * Strep pneumoniae antigen, urine Urine (08/06/2024 12:06 PM FOAM RUBBER MOLDER) S. pneumoniae Ag Negative Negative Comment: Interpretive [...] on 2022 Urine 08/06/2024 12:0 6 PM FOAM RUBBER MOLDER 08/06/2024 2:39 PM FOAM RUBBER MOLDER Biju Hayes NP LAB MICROBIOLOGY - GENERAL O RDERABLES Final Result Performing Organization Address [facility] de Phone Number [address] [address] * Legionella antigen Urine (08/06/2024 12:06 PM FOAM RUBBER MOLDER) Legionella Ag Negative Negative Comment: Interpretive Data This test detects only Legionella pneumophila serogroup 1 antigen. Testing performed by [facility] ([phone]). Current interpretive data was last revised on 2019. Testing performed by: [facility], [address] [place]., [address] Urine 08/06/2024 12:0 6 PM FOAM RUBBER MOLDER 08/06/2024 5:09 PM FOAM RUBBER MOLDER us Biju Hayes NP LAB MICROBIOLOGY - GENERAL O RDERABLES Final Result Performing Organization Address City/[facility] Co de Phone Number JEANNA[address] [place] [address] * (ABNORMAL) Troponin T high-sensitivity 4-hour (08/06/2024 10:28 AM FOAM RUBBER MOLDER) Trop T hs 117(H) <=22 ng/L Comment: Interpretive Data For further hscTnT resources including the diagnostic algorithm and an aid in interpretation, copy and paste this link: https://nrl.Avtodoria.org/show/hsTrop Current Interpretive Data last revised 2020. Testing performed by: [facility], [address] [place] [address]., [address] Trop T hs pct delta -9 % MARTHA Comment:Testing performed by : [address] [address] Trop T hs interp Equivocal MARTHA Comment:Testing performed by : [address] [address] Blood 08/06/2024 10:2 8 AM FOAM RUBBER MOLDER 08/06/2024 10:31 AM FOAM RUBBER MOLDER Jimmy Levy DO LAB BLOOD ORDERABLES Final Result MARTHA [address] [facility] Department of Laboratories [place], [place] [id number] * (ABNORMAL) Troponin T high-sensitivity 2-hour (08/06/2024 8:32 AM FOAM RUBBER MOLDER) Trop T hs 124(H) <=22 ng/L Comment: Interpretive Data For further hscTnT resources including the diagnostic algorithm and an aid in interpretation, copy and paste this link: https://nrl.Avtodoria.org/show/hsTrop Current Interpretive Data last revised 2020. Testing performed by: [address] [address] Trop T hs pct delta -4 % MARTHA Comment:Testing performed by : [address] [address] Trop T hs interp Insignificant MARTHA Comment:Testing performed by : [address] [address] Blood 08/06/2024 8:32 AM FOAM RUBBER MOLDER 08/06/2024 8:35 AM FOAM RUBBER MOLDER us Jimmy Levy DO LAB BLOOD ORDERABLES Final Result MARTHA [address] [facility] [place] [address] * (ABNORMAL) Urinalysis reflex to microscopic and culture Urine (08/06/2024 8:32 AM FOAM RUBBER MOLDER) Color, ur Yellow Yellow Comment:Testing performed by : [address] [address] Clarity, ur Clear Clear MARTHA Comment:Testing performed by : [address] [address] Specific gravity, ur 1.021 1.003 - 1.030 MARTHA Comment:Testing performed by : [address] [address] pH, urine 5.5 MARTHA Comment: Interpretive Data U rine pH is affected by diet, medications, systemic acid-base disturbances, and renal tubular function. pH may affect urinary stone formation. For example, urine pH below 6.0 may help reduce the tendency for calcium phosphate stones and pH greater than 6.0 may reduce the tendency for uric acid stone formation. Source: [facility] [employer] Current Interpretive Data was last revised on 2017 Testing performed by: [address] [address] Protein, ur ql 1+(A) Negative MARTHA Comment:Testing performed by : [address] [address] Glucose, ur ql Negative Negative MARTHA Comment:Testing performed by : [address] [address] Ketones, ur 1+(A) Negative MARTHA Comment:Testing performed by : [address] [address] Bilirubin, ur Negative Negative MARTHA Comment:Testing performed by : [address] [address] Blood, ur 1+(A) Negative MARTHA Comment:Testing performed by : [address] [place] [address] Urobilinogen, ur <2.0 <2.0 mg/dL MARTHA Comment:Testing performed by : [address] [address] Nitrite, ur Negative Negative MARTHA Comment:Testing performed by : [address] [address] Leukocyte esterase, ur 3+(A) Negative MARTHA Comment:Testing performed by : [address], [place]., [address] UA reflex comment Reflex to microscopic UA will be performed. MARTHA Comment:Testing performed by : [address], [place]., [address] Urine 08/06/2024 8:32 AM FOAM RUBBER MOLDER 08/06/2024 8:42 AM FOAM RUBBER MOLDER Narrative MARTHA - 08/06/2024 8:49 AM FOAM RUBBER MOLDER If patient unable to urinate, straight cath Jimmy Levy DO LAB MICROBIOLOGY - GENERAL ORDERABLES Final Result MARTHA [address] [facility] Department [place] [address] * (ABNORMAL) Urinalysis, microscopic only (08/06/2024 8:32 AM FOAM RUBBER MOLDER) WBC, ur 21-50(A) 0 - 5 /HPF Comment:Testing performed by : [address] [address] RBC, ur 11-20(A) 0 - 2 /HPF MARTHA Comment:Testing performed by : [address] [address] Epithelial cells, squamous, ur 6-10(A) 0 - 5 /HPF MARTHA Comment:Testing performed by : [address] [address] Yeast, ur 2+(A) MARTHA Comment:Testing performed by : [address], [place]., [address] Mucous, ur Present(A) MARTHA Comment:Testing performed by : [facility], [address] [place] [address]., [address] Culture Reflex Comment Reflex to urine culture will be performed. MARTHA Comment:Testing performed by : [facility], [address] [place] [address]., [address] Urine 08/06/2024 8:32 AM FOAM RUBBER MOLDER 08/06/2024 8:42 AM FOAM RUBBER MOLDER Jimmy Levy DO LAB URINE ORDERABLES Final Result Performing Organization Address [facility] de Phone Number [address] [address] * Urine culture Urine (08/06/2024 8:32 AM FOAM RUBBER MOLDER) Report Final Report: Less than 100,000 colonies/mL (clinically insignificant growth based on current clinical standards) Comment:Testing performed by : [facility], [address] [place]., [address] Organism (CLINICALLY INSIGNIFICANT GROWTH MARTHA Urine 08/06/2024 8:32 AM FOAM RUBBER MOLDER 08/06/2024 11:52 AM FOAM RUBBER MOLDER Narrative MARTHA - 08/07/2024 12:47 PM FOAM RUBBER MOLDER Urine culture reflexed based upon urinalysis results. Testing performed by [facility] ([phone]) Jimmy Levy DO LAB MICROBIOLOGY - GENERAL ORDERABLES Final Result Performing Organization Address [facility] de Phone Number [address] [place] [address] * CT Chest PE (CTA) W Contrast (08/06/2024 7:57 AM FOAM RUBBER MOLDER) Anatomical Region Laterality Modality Body N/A Computed Tomogra phy 08/06/2024 8:00 AM FOAM RUBBER MOLDER Narrative 08/06/2024 8:21 AM FOAM RUBBER MOLDER EXAM DESCRIPTION: CT CHEST PE (CTA) W [...] by Loi Frias M.D. JR: Report ID: [id number] Reading Location: [id number] Procedure Note Loi Frias MD - 08/06/2024 [...] by Loi Frias M.D. JR: Report ID: [id number] Reading Location: [id number] Jimmy Levy DO IM CT PROCEDURES Final Res ult * Blood culture Blood Peripheral (08/06/2024 6:47 AM FOAM RUBBER MOLDER) Report Final Report: No growth Comment:Testing performed by : [facility], [address] [facility], [place]., [address] Blood (Peripheral) 08/06/2024 6:47 AM FOAM RUBBER MOLDER 08/06/2024 9:09 AM FOAM RUBBER MOLDER Narrative MARTHA - 08/10/2024 12:00 PM FOAM RUBBER MOLDER From a different site than #1. Draw [...] performance characteristics have been verified by the [facility]. For questions about this culture, contact the Microbiology Laboratory at [phone]. Interpretive data was last revised on 24. us Jimmy Levy DO LAB MICROBIOLOGY - GENERAL ORDERABLES Final Result MARTHA [address] [facility] [place] [address] * (ABNORMAL) Influenza A/B, RSV, and COVID-19 PCR Nasopharyngeal (08/06/2024 6:43 AM FOAM RUBBER MOLDER) [facility] COVID-19 RNA Positive(A) Negative Comment:Testing performed by : [address] [address] Influenza A RNA Negative Negative MARTHA Comment:Testing performed by : [address] [address] Influenza B RNA Negative Negative MARTHA Comment:Testing performed by : [address] [address] RSV RNA Negative Negative MARTHA Comment: Interpretive data: Testing performed by [facility]. This test is performed using the Press Xpert Xpress CoV-2/Flu/RSV plus assay. This is a multiplex, real-time reverse transcriptase PCR assay intended for the qualitative detection of nucleic acid from SARS-CoV-2, influenza A, influenza B, and respiratory syncytial virus. This assay has been cleared by the [place] Food and Drug administration. The performance characteristics have been verified by the [facility]. Results must be considered in the clinical context, and a negative result does not rule out infection. Interpretive Data last revised 2023 Testing performed by: [facility], [address] [place] [address]., [address] Nasopharyngeal 08/06/2024 6: 43 AM FOAM RUBBER MOLDER 08/06/2024 6:54 AM FOAM RUBBER MOLDER Narrative MARTHA - 08/06/2024 7:34 AM FOAM RUBBER MOLDER Is the Patient experiencing symptoms consistent with COVID?->Yes Jimmy Levy DO LAB MICROBIOLOGY - GENERAL ORDERABLES Final Result MARTHA [address] [facility] [place] [address] * XR Chest 1 Vw Portable (if patient condition/safety warrant portable) (08/06/2024 6:43 AM FOAM RUBBER MOLDER) Anatomical Region Laterality Modality Body, Chest N/A Computed Radiogr aphy 08/06/2024 6:46 AM FOAM RUBBER MOLDER Narrative 08/06/2024 6:53 AM FOAM RUBBER MOLDER EXAM DESCRIPTION: XR CHEST 1 VIEW REASON [...] Penelope You M.D. SN: SN Report ID: [id number] Reading Location: [id number] Procedure Note Penelope You MD - 08/06/2024 [...] Electronically signed by Penelope You M.D. SN: Report ID: [id number] Reading Location: [id number] us Jimmy Levy DO IMG XR PROCEDURES Final Res ult * Blood culture Blood Peripheral (08/06/2024 6:43 AM FOAM RUBBER MOLDER) Report Final Report: No growth Comment:Testing performed by : [facility], [address] [facility], [place]., [address] Blood (Peripheral) 08/06/2024 6:43 AM FOAM RUBBER MOLDER 08/06/2024 9:09 AM FOAM RUBBER MOLDER Joseph HALL - 08/10/2024 12:00 PM FOAM RUBBER MOLDER Draw Blood cultures before administration of Antibiotics [...] performance characteristics have been verified by the [facility]. For questions about this culture, contact the Microbiology Laboratory at [phone]. Interpretive data was last revised on 24. Jimmy Levy DO LAB MICROBIOLOGY - GENERAL ORDERABLES Final Result MARTHA HALL [address] [facility] [place] [address] * ECG 12 lead (08/06/2024 6:37 AM FOAM RUBBER MOLDER) Ventricular Rate EKG/Min 116 BPM [facility] Atrial Rate 116 [address] [facility] [address]-Interval (MSEC) 136 ms [facility] QRS-Interval (MSEC) 84 ms [facility] QT-Interval (MSEC) 336 ms [facility] QTc 467 ms [facility] P [place] 72 degrees [facility] R [place] 11 degrees [facility] T [place] 60 degrees [facility] Diagnosis Sinus tachycardia Otherwise normal ECG When compared with ECG of 20-JAN-2024 06:39, No significant change was found Confirmed by MAI MONTANA M.D. ([id number]) on 08/06/2024 11:22:49 AM [facility] 08/06/2024 6:37 AM FOAM RUBBER MOLDER 08/06/2024 11:22 AM FOAM RUBBER MOLDER Jimmy Levy DO ECG ORDERABLES Final Resul t Performing Organization Address City/[facility] Co de Phone Number [facility] * (ABNORMAL) Troponin T high-sensitivity series (baseline, 2hr, 4hr, 6hr) (08/06/2024 6:37 AM FOAM RUBBER MOLDER) Trop T hs 129(H) <=22 ng/L Comment: Interpretive Data For further hscTnT resources including the diagnostic algorithm and an aid in interpretation, copy and paste this link: https://nrl.testcatalog.org/show/hsTrop Current Interpretive Data last revised 2020. Testing performed by: [address] [address] Blood 08/06/2024 6:37 AM FOAM RUBBER MOLDER 08/06/2024 6:41 AM FOAM RUBBER MOLDER Jimmy Levy DO LAB BLOOD ORDERABLES Final Result Performing Organization Address [facility] Co de Phone Number JEANNA[address] [employer] [place] [address] * Sepsis Lactate w/ Reflex (08/06/2024 6:37 AM FOAM RUBBER MOLDER) Pathologist [facility] Sepsis Lactate 0.8 0.7 - 2.0 mmol/L Comment:Testing performed by : [address] [address] Blood 08/06/2024 6:37 AM FOAM RUBBER MOLDER 08/06/2024 6:41 AM FOAM RUBBER MOLDER Jimmy Levy DO LAB BLOOD ORDERABLES Final Result Performing Organization Address [facility] Co de Phone Number JEANNA[address] [place] [address] * (ABNORMAL) eGFR (08/06/2024 6:37 AM FOAM RUBBER MOLDER) eGFR 37(L) >=60 mL/min/1. 73 m2 Comment: [...] was last reviewed 2021. Testing performed by: [facility], [address] [place] [address]., [address] Blood 08/06/2024 6:37 AM FOAM RUBBER MOLDER 08/06/2024 6:41 AM FOAM RUBBER MOLDER us Jimmy Levy DO LAB BLOOD ORDERABLES Final Result [facility] [address] [facility] [place] [address] * (ABNORMAL) Pro B-type natriuretic peptide (08/06/2024 6:37 AM FOAM RUBBER MOLDER) NT-proBNP 2,102(H) <=300 pg/mL Comment: Interpretive Comments: [...] et.al. Eur Heart J. 2006:27:330-337. 2. Som VINCENT, Alejo GIL. J. AM Che Cardiol: Cardiovasc Imag. 2009;2: 216- 225. Interpretive Data Last Revised Date: 2018. Testing performed by: [address] [address] Blood 08/06/2024 6:37 AM FOAM RUBBER MOLDER 08/06/2024 6:41 AM FOAM RUBBER MOLDER Jimmy Levy DO LAB BLOOD ORDERABLES Final Result MARTHA [address] [facility] [place] [address] * (ABNORMAL) CBC with auto differential (08/06/2024 6:37 AM FOAM RUBBER MOLDER) [facility] WBC 10.0(H) 3.8 - 9.9 K/cumm Comment:Testing performed by : [address] [address] Hgb 7.8(L) 13.0 - 17.5 g/dL MARTHA HALL Comment:Testing performed by : [address] [address] Hct 25.4(L) 38.9 - 50.3 % MARTHA HALL Comment:Testing performed by : [address] [address] Plt 122(L) 150 - 400 K/cumm MARTHA Comment:Testing performed by : [address] [address] MPV 11.0 9.1 - 12.3 fL MARTHA Comment:Testing performed by : [address] [address] RBC 2.71(L) 4.30 - 5.80 M/cumm MARTHA Comment:Testing performed by : [address] [address] MCV 93.7 81.3 - 96.4 fL MARTHA Comment:Testing performed by : [address] [address] MCH 28.8 27.1 - 33.3 pg MARTHA Comment:Testing performed by : [address] [address] MCHC 30.7(L) 32.3 - 35.7 g/dL MARTHA Comment:Testing performed by : [address] [address] RDW CV 17.2(H) 11.1 - 14.9 % MARTHA Comment:Testing performed by : [address] [address] RDW SD 58.2(H) 35.7 - 48.1 fL MARTHA Comment:Testing performed by : [address] [address] NRBC abs 0.00 0.00 - 0.01 K/cumm MARTHA Comment:Testing performed by : [address] [address] Blood 08/06/2024 6:37 AM FOAM RUBBER MOLDER 08/06/2024 6:41 AM FOAM RUBBER MOLDER us Jimmy Levy DO LAB BLOOD ORDERABLES Edited Result - Final MARTHA [address] [facility] Department of Laboratories [place], [place] [id number] * (ABNORMAL) Manual Differential (08/06/2024 6:37 AM FOAM RUBBER MOLDER) Differential Manual Comment:Testing performed by : [address] [address] Cells Counted 100 MARTHA Comment:Testing performed by : [address] [address] Neutrophil abs 9.1(H) 1.5 - 6.5 K/cumm MARTHA Comment:Testing performed by : [address] [address] Lymphocyte abs 0.4(L) 0.8 - 3.3 K/cumm MARTHA Comment:Testing performed by : [address] [address] Monocyte abs 0.5 0.2 - 0.8 K/cumm MARTHA Comment:Testing performed by : [address] [address] Neutrophil pct 91.0 % MARTHA Comment: Interpretive Data Percent cell count reference ranges are not reported, since discordance with absolute values may lead to misinterpretation of CBC data. Current Interpretive Data was last revised on 2017. Testing performed by: [address] [address] Lymphocyte pct 3.0 % MARTHA Comment: Interpretive Data Percent cell count reference ranges are not reported, since discordance with absolute values may lead to misinterpretation of CBC data. Current Interpretive Data was last revised on 2017. Testing performed by: [address] [address] Monocyte pct 5.0 % MARTHA Comment: Interpretive Data Percent cell count reference ranges are not reported, since discordance with absolute values may lead to misinterpretation of CBC data. Current Interpretive Data was last revised on 2017. Testing performed by: [address] [address] Variant lymph pct 1.0(H) 0.0 - 0.0 % MARTHA Comment:Testing performed by : [address] [address] RBC morphology Consistent with RBC Indicies MARTHA Comment:Testing performed by : [address] [address] Platelet estimate Decreased(A) MARTHA Comment:Testing performed by : [address] [address] Blood 08/06/2024 6:37 AM FOAM RUBBER MOLDER 08/06/2024 6:41 AM FOAM RUBBER MOLDER Jimym Leyv DO LAB BLOOD ORDERABLES Final Result MARTHA [address] [facility] [place] [address] * (ABNORMAL) Comprehensive metabolic panel (08/06/2024 6:37 AM FOAM RUBBER MOLDER) Sodium 141 135 - 145 mmol/L Comment:Testing performed by : [address] [address] Potassium, pl 4.0 3.3 - 4.9 mmol/L MARTHA Comment:Testing performed by : [address] [address] Chloride 108 97 - 110 mmol/L MARTHA Comment:Testing performed by : [address] [address] CO2 16(L) 22 - 32 mmol/L MARTHA Comment:Testing performed by : [address] [address] Anion gap 17(H) 2 - 15 mmol/L MARTHA Comment:Testing performed by : [address] [address] BUN 33(H) 6 - 25 mg/dL MARTHA Comment:Testing performed by : [address] [address] Creatinine 1.90(H) 0.80 - 1.30 mg/dL MARTHA Comment:Testing performed by : [address] [address] Glucose 72 70 - 199 mg/dL MARTHA Comment: Interpretive [...] was last revised 2022. Testing performed by: [address] [address] Calcium 9.5 8.5 - 10.3 mg/dL MARTHA Comment:Testing performed by : [address] [address] Bilirubin, total 1.6(H) 0.1 - 1.2 mg/dL MARTHA Comment:Testing performed by : [address] [address] Protein, pl 6.7 6.5 - 8.5 g/dL MARTHA Comment:Testing performed by : [address] [address] Albumin 3.2(L) 3.5 - 5.0 g/dL MARTHA Comment:Testing performed by : [address] [address] Alk phos 110 40 - 130 Units/L MARTHA Comment:Testing performed by : [address] [address] ALT 13 7 - 55 Units/L MARTHA Comment:Testing performed by : [address] [address] AST 13 10 - 50 Units/L MARTHA Comment:Testing performed by : [address] [address] Blood 08/06/2024 6:37 AM FOAM RUBBER MOLDER 08/06/2024 6:41 AM FOAM RUBBER MOLDER us Jimmy Levy DO LAB BLOOD ORDERABLES Final Result MARTHA [address] [facility] Department of [place], [place] [id number] * (ABNORMAL) Hepatitis C (HCV) RNA PCR, quantitative (04/14/2018 9:10 AM CDT) HCV RNA IU/mL 54,107 IU/mL HCV RNA log IU/mL 4.73 log IU/mL 018 5:33 PM [facility] HISTORICAL RESULTS HCV quant by NAAT [...] and Cellular Tissue-Based Products (HCT/P). Performed by [facility], [address] [place] [id number] [email or web address] Aaron Esparza MD, Lab. Director 04/14/2018 9:10 AM CDT 04/14/2018 9:28 AM CDT us Amari Frazier MD LAB MICROBIOLOGY - GENERAL NIKHIL MEYERS Final Result [facility] HISTORICAL RESULTS from Last 3 Months or Most Recently Relevant to Health Maintenance Additional Health Concerns Infection Onset Date Last Indicated COVID: Recovered Comment:Added based on recent COVID infection. 08/20/2024 025 Insurance [employer] [facility] MEDICARE O [facility] MEDICARE O [employer] MEDICARE HMO [employer] MEDICARE HMO [employer] DEPT OF LABOR - OWCP WORKERS COMPENSATION GENERIC WORKERS COMPENSATION GENERIC [id number] [place] [address] Advance Directives For more information, please contact: [phone] * Full Code (Latest Code Status on [...] 2:16 PM 10/15/2023 4:40 AM Care Teams [employer] Consultant Relationship Specialty Start Date End Date Jose Rivera MD [address] [place] [address] [id number] PCP - General 08/29/17 [place] [address] [place] [address] Consulting Physician Gastroenterology 02/08/23 Shayan Brown MD [address] [place] [phone] Referring Physician Hematology 01/13/24
== END 2024-10-16 08:39 | disposition home or self-care (01) ==
PROVIDERS: PCP Family Medicine; Visit Provider Radiology Radiation Oncology
DX: C34.90 Malignant neoplasm of unspecified part of unspecified bronchus or lung (principal); J32.0 Chronic maxillary sinusitis
CPT/HCPCS: 70553; A9579

== ENCOUNTER 2024-11-09 10:03 | Outpatient (RCR) | payer MEDICARE, MEDICAID, SELFPAY ==
[2024-11-09] MEDS: ACETAMINOPHEN 325 MG TABLET 650 MG PO (11:13)
[2024-11-09] MEDS: SODIUM CHLORIDE 0.9% IV 250 ML 30 ML IV CONT (11:14)
[2024-11-09] MEDS: diphenhydrAMINE HCl CAP 25 MG CAPSULE PO (11:14)
[2024-11-09 11:17] VITALS: BP 86/59; PULSE 111; RESP 20; TEMP 36.3; O2SAT 98
[2024-11-09 11:33] VITALS: BP 113/69; PULSE 101; RESP 18; TEMP 36.7; O2SAT 99
[2024-11-09 12:33] VITALS: BP 113/68; PULSE 80; RESP 17; TEMP 36.9; O2SAT 100
[2024-11-09 13:15] VITALS: BP 123/64; PULSE 70; RESP 16; TEMP 36.6; O2SAT 99
[2024-11-09] MEDS: HEPARIN SODIUM LOCK FLUSH 500 UNITS/5 ML SYRINGE (13:27)
== END 2025-02-07 23:59 | disposition home or self-care (01) ==
LOC: ANHCPCTRAN 10:03
PROVIDERS: PCP Family Medicine; Visit Provider Internal Medicine Hematology & Oncology
DX: C34.90 Malignant neoplasm of unspecified part of unspecified bronchus or lung (principal)
CPT/HCPCS: 36415; 36430; 86850; 86900; 86901; 86923; A9270; J7050; P9016

== ENCOUNTER 2024-11-28 10:24 | Outpatient (RCR) | payer MEDICARE, MEDICAID, SELFPAY ==
--- NOTE | 2024-11-28 11:08 | OPREHPOC ---
Outpatient Therapy Plan of Care This is a Multidisciplinary Plan of Care that may contain components documented by all disciplines (PT, OT, and ST.)
--- NOTE | 2024-11-28 11:08 | STOPEVAL1 ---
Assessment and note entered by Destiny Masters, PIECE CUTTER Evaluation Information Assessment Status Evaluation Diagnosis R13.19 ICD-10 Condition Codes (ST) Dysphagia, unspecified R13.1 Subjective Information The patient is a 73 yr old male being referred for a speech evaluation due to recurrent pneumonia over the past 6mths post radiation and chemo for lung cancer. Speech consult to s/o aspiration risk as contributing factor. The patient reports no swallowing difficulties with meals but states he does cough up 'yellow colored sputum' approximately 3x times a day and has a decreased appetite and taste sensation since completing chemo therapy. He also reports a significant weight loss due to decreased appetite. Reported Pain Level Pain Score 0: Self Report Assessment ST Clinical Summary The patient is a 73 yr old male being referred for a speech evaluation due to recurrent pneumonia over the past 6mths post radiation and chemo for lung cancer. Speech consult to s/o aspiration risk as contributing factor. The patient reports no swallowing difficulties with meals but states he does cough up 'yellow colored sputum' approximately 3x times a day and has a decreased appetite and taste sensation since completing chemo therapy. He also reports a significant weight loss due to decreased appetite. The patient was seen for a swallow evaluation. The patient was presented tsp trials puree/applesauce texture, solid cracker consistency, and thin liquid via cup. Oral Stage: The patient demonstrates good lingual/labial ROM for speech and swallowing. Oral transit timely for all consistencies was timely, good oral preparation, no oral residual. Pharyngeal stage: Swallow initiation was timely across consistencies, with good laryngeal elevation, vocal quality was clear without noted coughing or choking. Given patient history of recurrent pneumonia and coughing up frequent discolored sputum informed patient we could not rule out the possibility of silent aspiration and PIECE CUTTER would recommend MBS to better evaluate the need for speech services and treatment goals. Plan of Care ST Services Indicated Yes These treatments will address the objective and functional deficits as defined above. The patient will be advanced safely and appropriately in order for the patient to progress towards his/her prior level of function. Additional exercises will be introduced and as well as a comprehensive home exercise program upon discharge, if needed, ?to ensure carryover of functional gains achieved in the clinic. This treatment plan has been reviewed and agreement upon by the patient.
--- NOTE | 2025-04-25 13:20 | PCSTNOTE ---
SPEECH THERAPY DISCHARGE 04/25/25. Dr. Mckay.
--- NOTE | 2025-04-25 13:21 | PCSTNOTE ---
SPEECH THERAPY DISCHARGE: 04/25/[address] . Dr. Mckay. Mr. Cotto came for an outpatient evaluation and then MBS with no further treatment indicated.
== END 2025-02-19 13:06 | disposition home or self-care (01) ==
LOC: ANHST 10:24
PROVIDERS: PCP Family Medicine; Visit Provider Internal Medicine Critical Care Medicine
DX: R13.19 Other dysphagia (principal); Z87.01 Personal history of pneumonia (recurrent)
CPT/HCPCS: 92610

== ENCOUNTER 2025-01-11 09:40 | Outpatient (CLI) | payer MEDICARE, MEDICAID, SELFPAY ==
--- NOTE | ~2025-01-11 | CT_ITS ---
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 Dose reduction technique was used on this scan by utilizing automated exposure control and iterative recon struction technique. The dose-length product (DLP) was 269.49 mGy-cm. COMPARISON: 07/29/2024 Findings: There is no evidence of any significant mediastinal, hilar or axillary lymphadenopathy. The mediastin al soft tissues appear normal. Small bilateral pleural effusions are present, increased from prior exam. Wkhhi-em-ftjgdobm pericardi al effusion present, increased. Left upper lobe/left basal consolidation is significantly improved from prior exam with residual patc hy airspace disease present. There is persistent airspace consolidation with air bronchograms in the right lung apex. 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 There is consolidation the posterior medi al right lung, which could reflect postradiation change. There is left basilar consolidation, new fro m prior exam. Images through the upper abdomen reveal Marked, worsening intrahepatic and extra hepatic biliary dilatation with apparent intrahepatic and ex trahepatic biliary drainage catheter system in place. 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 Impression: New left lower lobe consolidation which could reflect pneumonia, atelectasis or possibly neoplastic d isease. Significant interval improvement in left apical/left upper lobe consolidation with residual patchy ai rspace disease present. Right upper lobe/apical consolidation is similar to prior exam, with air bron chograms. Severe emphysema, especially in the upper lobes/apices. Small bilateral pleural effusions, increased from prior exam. Worsening marked intrahepatic and extra hepatic biliary dilatation with biliary drainage catheter in place. Reviewed, dictated and finalized at location . Impression: New left lower lobe consolidation which could reflect pneumonia, atelectasis or possibly neoplastic disease. Significant interval improvement in left apical/left upper lobe consolidation w ith residual patchy airspace disease present. Right upper lobe/apical consolida tion is similar to prior exam, with air bronchograms. Severe emphysema, especially in the upper lobes/apices. Small bilateral pleural effusions, increased from prior exam. Worsening marked intrahepatic and extra hepatic biliary dilatation with biliary drainage catheter in place.
--- OUTSIDE RECORDS SUMMARY | 2025-01-11 09:45 | XMS_ITS | Patient Health Record ---
Author Organization [facility] Address [address] [place] [address] Care Team Providers Care Bar Attendant Name Role Phone Sohan Paez Primary Care Provider Allergies Allergen (clinical drug ingredient) Drug/Non Drug Allergy documented on EMR Reaction Allergy Type Onset Date Status lisinopril Lisinopril Unknown Drug Allergy Activ e Penicillin G Benzathine hives Drug Allergy Active Madison-Heel hives Drug Allergy Acti ve Reason For Referral No Information Medications Medication SIG (Take, Route, Frequency, Duration) Notes Start Date End Date Status Albuterol Sulfate (2.5 MG/3ML) 0.083% 3 ml as needed Inhalation every 8 hrs Active Ventolin HFA 108 (90 Base) MCG/ACT 1 puff as needed Inhalation every 4 hrs Active Levocetirizine Dihydrochloride 5 MG 1 tablet in the evening Orally Once a day; Duration: 30 day(s) Active Cardura 8 MG 1 tablet Orally Once a day; Duration: 30 day(s) Active Aspirin 81 MG as directed Orally Active Albuterol Sulfate (5 MG/ML) 0.5% as directed Inhalation Activ e Sildenafil Citrate 100 MG 1 tablet as ne eded Orally Once a day; Duration: 30 days Active Norvasc 10 MG 1 tablet Orally Once a day; Duration: 30 day(s) Active Ergocalciferol 1.25 MG (5000 0 UT) 1 capsule Orally once a week; Duration: 90 days 08/20/2019 Active Flonase 50 MCG/ACT 2 spray in each nost ril Nasally Once a day; Duration: 30 day(s) Active Ipratropium Herald 0.02 % 2.5 ml Inhala tion every 8 hrs Active Trelegy Ellipta 100-62.5-25 MCG/INH 1 puff Inhalation Once a day Active Problems Problem Type SNOMED Code ICD Code Onset Dates Problem Status W/U Status Risk Notes Problem Hypertension (27074434) Hypertension (I10) Active confirmed Problem Vitamin D deficiency (85761735) Vitamin D deficiency (E55.9) Active confirmed Problem COPD - Chronic obstructive pulmonary disease (75933516) COPD (chronic obstructive pulmonary disease) (J44.9) Active confirmed Problem Erectile dysfunction (734814506) Erectile dysfunction (N52.9) Active confirmed Problem Dependence on supplemental oxygen (195588205688) Oxygen dependent (Z99.81) Active confirmed Plan Of Treatment Pending Test Test Name Order Date Estradiol 2675 08/13/2019 Hgb A1c with MBG Estimation 08/13/2019 Testosterone,Free and Total 08/13/2019 TSH+Free T4 2836 08/13/2019 Lipid Panel With LDL/HDL Ratio 0 Comp. Metabolic Panel (14) 08/13/2019 Urinalysis 08/13/2019 PSA, Total 2608 08/13/2019 Insurance Providers Payer Name Payer Address Payer Phone Subscriber Number Group Number Insured Name Patient Relationship to Insured Coverage Start Date Coverage End Date [employer] Gold [employer] HMO [address] [address] [place] [address] [id number] Lee Cotto Self - patient is the insured 0 Medicare [address] [place] [phone] [id number] Lee Cotto Self - patient is the insured Medical (General) History Medical History History ICD Code hbp shortness of breath copd broken bones Surgical History Surgery Date(Month/Year)
--- OUTSIDE RECORDS SUMMARY | 2025-01-11 09:45 | XMS_ITS | Clinical Summary ---
Author Organization [facility] Address [address] [place] [id number] Phone Care Team Providers Care Dietetics Professor Name Role Phone Jose Rivera MD Primary [...] day Active ergocalciferol (VITAMIN D-2) 1.25 MG (38539 UT) capsule Take 50,000 Units by mouth [...] 11:29 AM CDT Height 172.7 cm (5' 8) 02/24/2022 11:29 AM CDT Body Mass Index 32.39 02/24/2022 11:29 AM CDT Plan of Treatment Health Maintenance Due Date Last Done Comments Pneumococcal PPSV23/PCV13 65 + Years / Low and Medium Risk (1 of 2 - PCV) 2000 Influenza Vaccine (#1) 2025 Insurance MEDICAID - [place] Care Teams Dietetics Professor Relationship Specialty Start Date End Date Jose Rivera MD [address] [place] [address] PCP - General Internal Medicine 01/05/21
--- OUTSIDE RECORDS SUMMARY | 2025-01-11 09:45 | XMS_ITS | Encounter Summary ---
Author Organization [facility] Healthcare Address [address] [place] [address] Care Team Providers Care Architectural Examiner Name Role Phone Jose Rivera MD Primary Care Provider [phone] Justin Miller MD Unavailable [phone] Shayan Brown MD Unavailable [phone] No, Physician Unavailable Encounter Details Date Type Department Care Team (Late st Contact Info) Description 01/10/2025 Telephone [facility] - Interventional Radiology [address] [place] [address] Juan Sierra, RN Social History Tobacco Use Types Packs/Day Years Used Date Smoking Tobacco: Former Cigarettes 1 7.6 2 018 - 1965 Passive Smoke Exposure: [...] materials from doctor or pharmacy Never 04/12/2023 [facility] Utilities Answer Date Recorded In the past 12 months has th e electric, gas, oil, or water company threatened to shut off services in your home? No 11/13/2024 Social Connection and Isolat ion Panel [NHANES] Answer Date Recorded In a typical week, how many times do you talk on the phone with family, friends, or neighbors? More than three times a week 11/13/2024 How often do you get togethe r with friends or relatives? Never 11/13/2024 How often do you attend chur ch or jewish services? Never 11/13/2024 Do you belong to any clubs o r organizations such as buddhism groups, unions, fraternal or athletic groups, or school groups? No 11/13/2024 How often do you attend meet ings of the clubs or organizations you belong to? Never 11/13/2024 Are you , , di vorced, , never , or living with a partner? 11/13/2024 AUDIT-C Answer Date Recorded Q1: How often [...] care, and heating? Not hard at all 11/13/2024 Hunger Vital Sign Answer Date Recorded Within the past 12 months, y ou worried that your food would run out before you got the money to buy more. Never true 11/14/19 25 Within the past 12 months, t he food you bought just didn't last and you didn't have money to get more. Never true 11/13/2024 PRAPARE - Transportation Answer Date Re corded In the past 12 months, has l ack of transportation kept you from medical appointments or from getting medications? No 08/2024 In the past 12 months, has l ack of transportation kept you from meetings, work, or from getting things needed for daily living? No 11/13/2024 Housing Stability Vital Sign Answer Ministerio e [...] place to sleep or slept in a care home (including now)? No 02/03/2023 Housing Stability Vital Sign Answer Ministerio e Recorded In the last 12 months, was t here a time when you were not able to pay the mortgage or rent on time? No 11/13/2024 In the past 12 months, how m any times have you moved where you were living? 0 11/13/2024 At any time in the past 12 m [facility], were you homeless or living in a care home (including now)? No 11/13/2024 Personal Safety Answer Date Recorded Have you ever been in or are you currently in a harmful physical or emotional relationship or is someone making you feel afraid or unsafe? 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 Gender Identity Not on file Sexual Orientation Not on file documented as of this encounter Miscellaneous Notes * Telephone Encounter - Juan Sierra RN - 01/10/2025 1:13 PM CDT Preprocedure Phone Call Procedure Time Verified: Yes Arrival Time Verified: Yes Procedure Location Verified: Yes Medical History Reviewed: Yes NPO Status Reinforced: Yes Ride and Caregiver Arranged: Yes Patient Knows to Bring Current Medications: No Patient Knows to Bring CPAP: No Is Patient on Home Ventilator?: No Is Patient on Blood Thinners?: No documented in this encounter Plan of Treatment Not on file documented as of this encounter Goals Goal Patient Goal Type Associated Problems Recent Progress Patient-Stated? Author CCM Chronic Pain Care Plan Chronic Care Management Improving( 9:19 AM CDT) No Genevieve Rivera RN Note: Problem: Chronic Pain Goals: 1. Minimize further functional decline 2. Maximize quality of life 3. Control pain Strategies: - Activity/exercise program recommendation - Conservative stepwise pain medicine strategy with multi-disciplinary approach - Recommend healthy lifestyle strategies and compensatory methods as needed documented as of this encounter Visit Diagnoses Not on filedocumented in this encounter Care Teams Architectural Examiner Relationship Specialty Start Date End Date Jose Rivera MD [address] [place] [address] [id number] PCP - General 08/29/17 [place] [address] [place] [address] Consulting Physician Gastroenterology 02/08/23 Shayan Brown MD [address] [place] [phone] Referring Physician Hematology 01/13/24 No, Physician 11/15/24 documented as of this encounter
--- OUTSIDE RECORDS SUMMARY | 2025-01-11 09:45 | XMS_ITS | Clinical Summary ---
Author Organization [facility] Address [address] [place] [address] Care Team Providers Care Watch Train Inspector Name Role Phone Jose Rivera MD Primary [...] Encounters Date Type Department Care Team Description 01/08/2025 Orders Only [facility] Oncology and Hematology - Jose [address] [place] [address] Shayan Brown MD 01/07/2025 Orders Only [facility] Oncology and Hematology - [address] [place] [address] Shayan Brown MD Small cell lung cancer (CMS/HCC) 12/24/2024 Orders Only [facility] Oncology and Hematology - [address] [place] [address] Shayan Brown MD Small cell lung cancer (CMS/HCC) 12/12/2024 Orders Only [facility] Oncology and Hematology - [address] [place] [address] Shayan Brown MD 12/10/2024 Orders Only [facility] Oncology and Hematology - [address] [place] [address] Shayan Brown MD Small cell lung cancer ([facility]/HCC) 11/26/2024 Orders Only [facility] Oncology and Hematology - Jose [address] [place] [address] Shayan Brown MD Small cell lung cancer ([facility]/HCC) 11/12/2024 Orders Only [facility] Oncology and Hematology - Jose [address] [place] [address] Shayan Brown MD Small cell lung cancer ([facility]/HCC) 11/09/2024 Abstract [facility] Oncology and Hematology - [address] [place] [address] Shayan Brown MD 11/09/2024 Orders Only [facility] Oncology and Hematology - Jose [address] [place] [address] Shayan Brown MD Small cell carcinoma of lung, unspecified laterality, unspecified part of lung (CMS/HCC) (Primary Dx) 11/01/2024 External Device Data STL ABSTRACTION Provider, Abstract 10/31/2024 External Device Data STL ABSTRACTION Provider, Abstract 10/30/2024 External Device Data STL ABSTRACTION Provider, Abstract 10/29/2024 Orders Only [facility] Oncology and Hematology - [address] [place] [address] Shayan Brown MD Small cell lung cancer ([facility]/HCC) 10/15/2024 Orders Only [facility] Oncology and Hematology - [address] [place] [address] Shayan Brown MD Small cell lung cancer ([facility]/HCC) 10/12/2024 9:00 AM CDT Office Visit [facility] Oncology and Hematology - [address] [place] [address] Shayan Brown MD Small cell carcinoma of lung, unspecified laterality, unspecified part of lung (CMS/HCC) (Primary Dx) from Last 3 Months Family History Medical [...] A M CDT Height 172.7 cm (5' 8) 01/03/2024 1:56 PM CDT Body Mass Index 24.84 01/03/2024 1:56 PM CDT Plan of Treatment Upcoming Encounters Date Type Department Care Team (Late st Contact Info) Description 01/18/2025 9:45 AM CDT Office Visit [facility] Oncology and Hematology - Jose [address] [place] [address] Shayan Brown MD [address] [place] [address] Health Maintenance Due Date Last [...] of 2) 04/24/2019 02/27/2019 INFLUENZA VACCINE (#1) 2025 COLORECTAL SCREENING 05/12/2026 05/12/2016 Colorectal Cancer Screening 05/12/2026 Abdominal Aortic Aneurysm (A AA) Screening Completed 10/22/2024, 04/14/2018, 04/14/2018 Procedures Procedure Name Priority Date/Time Associated Diagnosis Comments CBC WITH DIFFERENTIAL Routine 01/07/2025 4:07 PM CDT IRON LEVEL Routine 12/10/2024 8:34 AM CDT CBC WITH DIFFERENTIAL Routine 11/26/2024 3:43 PM CDT from Last 3 Months Results * CBC WITH DIFFERENTIAL (01/07/2025 4:07 PM CDT) Only the most recent of2 resultswithin the time period is included. Blood us Shayan Brown MD HEMATOLOGY ORDERABLES Final Res ult * IRON LEVEL (12/10/2024 8:34 AM CDT) Blood Shayan Brown MD CHEMISTRY ORDERABLES Final Resu lt from Last 3 Months Insurance [employer] GOLD [employer]US [facility] MEDICAID [place] Care Teams Watch Train Inspector Relationship Specialty Start Date End Date Jose Rivera MD [address] [place] [address] PCP - General Family Practice 12/29/23
--- OUTSIDE RECORDS SUMMARY | 2025-01-11 09:45 | XMS_ITS | Encounter Summary ---
Author Organization [facility] Healthcare Address [address] [place] [address] Care Team Providers Care Road Oiler Name Role Phone Jose Rivera MD Primary Care Provider Justin Miller MD Unavailable Shayan Brown MD Unavailable [phone] No, Physician Unavailable Encounter Details Date Type Department Care Team (Late st Contact Info) Description 11/27/2024 Telephone [facility] - Interventional Radiology [address] [place] [address] Juan Sierra, RN Social History [...] materials from doctor or pharmacy Never 04/12/2023 [facility] Utilities Answer Date Recorded In the [...] often do you attend chur ch or yazidi services? Never 11/13/2024 Do you belong to any clubs o r organizations such as gnosticist groups, unions, fraternal or athletic groups, or [...] place to sleep or slept in a jail (including now)? No 02/03/2023 Housing Stability Vital [...] were you homeless or living in a jail (including now)? No 11/13/2024 Personal Safety Answer Date Recorded Have you ever been in or are you currently in a harmful physical or emotional relationship or is someone making you feel afraid or unsafe? 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
--- OUTSIDE RECORDS SUMMARY | 2025-01-11 09:45 | XMS_ITS | Encounter Summary ---
Author Organization [facility] Healthcare Address [address] [place] [address] Care Team Providers Care Collar Tacker Name Role Phone Jose Rivera MD Primary Care Provider [phone] Justin Miller MD Unavailable Shayan Brown MD Unavailable [phone] No, Physician Unavailable Encounter Details Date Type Department Care Team (Late st Contact Info) Description 01/10/2025 Orders Only [facility] - Interventional Radiology [address] [place] [address] Juan Sierra, RN Social History [...] materials from doctor or pharmacy Never 04/12/2023 [facility] Utilities Answer Date Recorded In [...] often do you attend chur ch or roman catholic services? Never 11/13/2024 Do you belong to any clubs o r organizations such as samaritan groups, unions, fraternal or athletic groups, or [...] place to sleep or slept in a alf (including now)? No 02/03/2023 Housing Stability Vital Sign Answer Ministerio e Recorded In the last 12 months, was t here a time when you were not able to pay the mortgage or rent on time? No 11/13/2024 In the past 12 months, how m any times have you moved where you were living? 0 11/13/2024 At any time in the past 12 m [facility], were you homeless or living in a alf (including now)? No 11/13/2024 Personal Safety Answer Date Recorded Have you ever been in or are you currently in a harmful physical or emotional relationship or is someone making you feel afraid or unsafe? 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
--- OUTSIDE RECORDS SUMMARY | 2025-01-11 09:45 | XMS_ITS | Clinical Summary ---
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 Not on file Not [...] 1:20 PM CDT Height 172.7 cm (5' 8) 09/16/2016 1:20 PM CDT Body Mass Index 31.19 09/16/2016 1:20 PM CDT Plan of Treatment Health Maintenance Due Date Last Done Comments TdaP Immunization 1950 Cologuard 12/05/1995 Immunochemical Fecal Occult Blood 12/05/1995 Pneumococcal Immunization (5 0+ years) (1 of 1 - PCV) 2000 Zoster Immunization (1 of 2) 2000 SARS-COV-2 Immunization (1 - 2023- season) 2024 Influenza Immunization (#1) 2025 Respiratory Syncytial Virus (RSV) Immunization (Adult) (1 - 1-dose 75+ series) 2025 Colonoscopy 05/12/2026 05/12/2016 Colorectal Cancer Screening 05/12/2026 Hepatitis B Immunization Aged Out No longer eligible based on patient's age to complete this topic Human Papillomavirus (HPV) Immunization Aged Out No longer eligible b ased on patient's age to complete this topic Meningococcal Immunization (ACWY) Aged Out No longer eligible based on patient's age to complete this topic Rotavirus Immunization Aged Out No lo nger eligible based on patient's age to complete this topic Procedures Procedure Name Priority Date/Time Associated Diagnosis Comments COLONOSCOPY Routine 05/12/2016 from Last 3 Months or Most Recently Relevant to Health Maintenance Results * COLONOSCOPY (05/12/2016) Jose Rivera MD PROCEDURE/MINOR SURGICAL ORD ERABLES Final Result from Last 3 Months or Most Recently Relevant to Health Maintenance Insurance MEDICARE C [employer] Care Teams Cleaner Window Relationship Specialty Start Date End Date Jose Rivera MD [address] [place] [address] PCP - General Family Medicine 05/17/16 John Seth DO [address] [place] [address] Gastroenterology 05/17/16
--- OUTSIDE RECORDS SUMMARY | 2025-01-11 09:46 | XMS_ITS | Encounter Summary ---
Author Organization [facility] Healthcare Address [address] [place] [address] Care Team Providers Care Sales Review Clerk Name Role Phone Jose Rivera MD Primary Care Provider Justin Miller MD Unavailable Shayan Brown MD Unavailable [phone] No, Physician Unavailable Encounter Details Date Type Department Care Team (Late st Contact Info) Description 06/04/2024 Telephone [facility] - Interventional Radiology [address] [place] [address] Pearl Goldstein, ROBEL Social History Tobacco Use Types Packs/Day [...] often do you attend chur ch or jehovah's witness services? Never 02/03/2023 Do you belong to any clubs o r organizations such as jehovah's witness groups, unions, fraternal or athletic groups, or [...] a care home (including now)? No 02/03/2023 Personal Safety Answer Date Recorded Have you ever been in or are you currently in a harmful physical or emotional relationship or is someone making you feel afraid or unsafe? 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 08/20/2024 08/20/2024 11/18/2024 7:26 PM C DT documented as of this encounter Care Teams Sales Review Clerk Relationship Specialty Start Date End Date Jose Rivera MD [address] [phone] PCP - General 08/29/17 [place] [address] [place] [address] Consulting Physician Gastroenterology 02/08/23 Shayan Brown MD [address] [id number] Referring Physician Hematology 01/13/24 No, Physician 11/15/24 documented as of this encounter
--- OUTSIDE RECORDS SUMMARY | 2025-01-11 09:46 | XMS_ITS | Encounter Summary ---
Author Organization [facility] Healthcare Address [address] [place] [address] Care Team Providers Care Video Game Creator Name Role Phone Jose Rivera MD Primary Care Provider [phone] Justin Miller MD Unavailable Shayan Brown MD Unavailable [phone] No, Physician Unavailable Encounter Details Date Type Department Care Team (Late st Contact Info) Description 03/27/2019 Telephone [facility] [address] [facility] [address] [place], [place] [id number] Sumanth Reyes MD [address] 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 Author CCM Chronic Pain Care Plan Chronic Care Management Improving(10 / 9:19 AM CDT) Genevieve Sandra, RN Note: [...] COVID: Suspected 08/06/2024 08/06/2024 08/06/2024 7:34 AM REAMER HAND COVID19 08/06/2024 08/06/2024 08/20/2024 2:36 PM CDT COVID: Recovered Comment:Added based on recent COVID infection. 08/20/2024 08/20/2024 11/18/2024 7:26 PM C DT documented as of this encounter Care Teams Video Game Creator Relationship Specialty Start Date End Date Jose Rivera MD [address] [place] [id number] PCP - General 08/29/17 [place] [address] [place] [address] Consulting Physician Gastroenterology 02/08/23 Shayan Brown MD [address] [place] [phone] Referring Physician Hematology 01/13/24 No, Physician 11/15/24 documented as of this encounter
--- OUTSIDE RECORDS SUMMARY | 2025-01-11 09:46 | XMS_ITS | Clinical Summary ---
Author Organization [address] Address [facility] [place] [address] Care Team Providers Care Historic Sites Registrar Name Role Phone Jose Rivera MD Primary Care Provider [phone] Justin Miller MD Unavailable Shayan Brown MD Unavailable [phone] No, Physician Unavailable Allergies Active Allergy Reactions Criticality Noted Date Comments Lisinopril Swelling Medium 05/17/2016 Reaction: Swelling, Reaction: Swelling, Reaction: Swelling, Penicillins Hives High 05/17/2016 Patient has tolerated cefepime 01/2023 and 08/06-08/10/2024 Reaction: Hives, Reaction: Hives, Sulfa (Sulfonamide Antibiotics) Hives High 10/21/2019 Hives Medications aspirin 81 mg tablet Take 1 tablet (81 mg total) by mouth daily Active sildenafil (VIAGRA) 100 mg tabletIndications :Erectile Dysfunction Take 1 tablet (100 mg total) by mouth as needed for erectile dysfunction Active fluticasone propionate (FLONASE) 50 mcg/actuation nasal sprayIndications: Allergic Conjunctivitis Administer 1 spray into each nostril daily as needed for allergies Active levocetirizine (XYZAL) 5 mg tabletIndications :Allergic Conjunctivitis Take 1 tablet (5 mg total) by mouth nightly 021 Active montelukast (SINGULAIR) 10 mg tabletIndications :Exercise-Induced Bronchospasm Prevention Take 1 tablet (10 mg total) by mouth daily Active ergocalciferol (VITAMIN D) 50,000 unit capsule Take 1 capsule (50,000 Units total) by mouth once a week Weekly on Active albuterol HFA (PROVENTIL HFA,VENTOLIN HFA,PROAIR HFA) 90 mcg/actuation inhaler Inhale 2 puffs every 4 (four) hours as needed for shortness of breath Active doxazosin (CARDURA) 8 mg tabletIndications :hypertension Take 1 tablet (8 mg total) by mouth nightly 021 Active metoprolol tartrate (LOPRESSOR) 25 mg immediate release tabletIndications :hypertension Take 1 tablet (25 mg total) by mouth 2 (two) times a day 023 Active revefenacin (Yupelri) 175 mcg/3 mL solution [...] day as needed for cough 120 mL 025 Active roflumilast (DALIRESP) 500 mcg tabletIndications :Prevention of Bronchospasm with Chronic Bronchitis Take 1 tablet (500 mcg total) by mouth nightly Active baclofen (LIORESAL) 10 mg tablet Take 1 tablet (10 mg total) by mouth 3 (three) times a day For hiccups Active methocarbamoL (ROBAXIN) 500 mg tablet Take 1 tablet (500 mg total) by mouth 3 (three) times a day as needed for muscle spasms Active allopurinoL (ZYLOPRIM) 300 mg tablet Take 1 tablet (300 mg total) by mouth daily Active omeprazole (PriLOSEC) 40 mg capsule Take 1 capsule (40 mg total) by mouth daily Active ferrous sulfate 325 mg (65 mg of elemental iron) tabletIndications :Iron Deficiency Anemia Take 1 tablet (325 mg total) by mouth 2 (two) times a day with meals Active cyanocobalamin (Vitamin B-12) 1,000 mcg tabletIndications :Prevention of Vitamin B12 Deficiency Take 1 tablet (1,000 mcg total) by mouth daily Active sodium chloride 0.9% flush syringe Administer 20 mL into catheter daily 1200 mL 025 2024 Active azithromycin (ZITHROMAX) 250 mg tablet Take 2 tablets the first day, then 1 tablet daily for 4 days 6 tablet 025 Active predniSONE (DELTASONE) 20 mg tablet Take 3 tablets (60 mg) by mouth daily for 5 days 15 tablet 025 2024 Discontinued azithromycin (ZITHROMAX) 250 mg tablet Take 2 tablets the first day, then 1 tablet daily for 4 days 6 tablet 025 2024 Discontinued azithromycin (ZITHROMAX) 250 mg tablet Take 2 tablets the first day, then 1 tablet daily for 4 days 6 tablet 025 2024 Discontinued predniSONE (DELTASONE) 20 mg tablet Take 3 tablets (60 mg) by mouth daily for 5 days 15 tablet 025 2024 Discontinued predniSONE (DELTASONE) 20 mg tablet Take 3 tablets (60 mg) by mouth daily for 5 days 15 tablet 025 2024 Active Problems Problem Noted Date Diagnosed Date Advance care planning 11/13/2024 Physical debility 11/13/2024 Obstruction of percutaneous transhepatic biliary drainage catheter 11/11/2024 Biliary tube migration, initial encounter 2024 Former smoker 10/23/2024 Acute kidney injury 10/22/2024 Malfunction of device 10/22/2024 Pneumonia of right middle lobe due to infectious organism 10/22/2024 Anemia 08/19/2024 Other emphysema 08/19/2024 Acute on chronic renal insufficiency 08/19/2024 Stage 3a chronic kidney disease 08/19/2024 Anemia due to stage 3a chronic kidney disease Migration of biliary stent 08/19/2024 PRISCILLA (acute kidney injury) 08/19/2024 Severe protein-calorie malnutrition 08/07/2024 COVID-19 08/07/2024 Pneumonia of [...] and la bryan. Pain in extremity 12/08/2009 Primary hypertension 12/08/2009 Lumbago 12/08/2009 Low back pain 12/08/2009 Pain in limb 12/08/2009 Encounters Date Type Department Care Team Description 01/10/2025 Telephone [facility] Interventional Radiology [address] [place] [phone] Juan Sierra, RN 01/10/2025 Orders Only [facility] [address] [place] [phone] Juan Sierra, RN 01/02/2025 11:19 AM CDT - 01/02/2025 11:59 PM CDT Hospital Encounter [facility] [address] [place] [phone] Biliary obstruction (HCC) Discharge Disposition: Discharge to home or self care 01/02/2025 Orders Only [facility] [address] [place] [phone] Juan Sierra, RN 01/01/2025 Telephone [facility] [address] [place] [phone] Juan Sierra RN 01/01/2025 Orders Only [facility] [address] [place] [phone] Juan Sierra, RN 12/26/2024 12:39 PM CDT - 12/26/2024 11:59 PM CDT Hospital Encounter [facility] [address] [place] [phone] Biliary obstruction (HCC) Discharge Disposition: Discharge to home or self care 12/21/2024 1:18 PM CDT - 12/21/2024 11:59 PM CDT Hospital Encounter [facility] [address] [place] [phone] Biliary obstruction (HCC) Discharge Disposition: Discharge to home or self care 12/20/2024 12:30 PM CDT - 12/20/2024 11:59 PM CDT Hospital Encounter [facility] [address] [place] [phone] Biliary obstruction (HCC) Discharge Disposition: Discharge to home or self care 12/19/2024 Telephone [facility] [address] [place] [phone] Park Johns RN 12/15/2024 8:13 AM CDT - 12/15/2024 1:08 [place] [address] Cuauhtemoc Isaac MD COPD exacerbation (HCC) (Primary Dx) Discharge Disposition: Discharge to home or self care 11/27/2024 Telephone [facility] [address] [place] [phone] Juan Sierra RN 11/27/2024 Orders Only [facility] [address] [place] [phone] Juan Sierra RN 11/22/2024 9:02 AM CDT - 11/22/2024 11:59 PM CDT Hospital Encounter [facility] [address] [place] [phone] Biliary obstruction (HCC) Discharge Disposition: Discharge to home or self care 11/22/2024 Orders Only [facility] [address] [place] [phone] Juan Sierra RN 11/21/2024 Telephone [facility] [address] [place] [phone] Juan Sierra RN 11/12/2024 3:00 PM CDT - 11/12/2024 3:45 PM CDT Surgery [facility] [address] [place] [phone] Cristiano Gallardo MD SMALL BOWEL WITH REMOVAL FOREIGN BODY 11/12/2024 2:34 PM CDT Anesthesia Event [facility] [address] [place] [phone] Gillian Osei MD Lorusso, Chynna Janae, CRNA 11/12/2024 Orders Only [facility] [address] [place] [phone] Ruthie Angulo RN 11/12/2024 Orders Only [facility] [address] [place] [phone] Juan Sierra RN 11/12/2024 Orders Only [facility] [address] [place] [phone] Pearl Goldstein, ROBEL 11/12/2024 Orders Only [facility] [address] [place] [phone] Aljeandra Coronado, ROBEL 11/11/2024 2:59 PM CDT - 11/15/2024 7:26 PM CDT Hospital Encounter [address] [phone] Thor Herr MD Yew, MD Augustina Norton, MD Chava Waterman, Dayo Snyder, DO PRISCILLA (acute kidney injury) (Primary Dx); Anemia, unspecified type; Obstruction of percutaneous transhepatic biliary drainage catheter; Migration of biliary stent, initial encounter; Advance care planning [Z71.89]; Physical debility [R53.81]; Biliary tube migration, initial encounter [T85.520A]; Chronic obstructive pulmonary disease, unspecified COPD type (HCC) [J44.9]; Severe protein-calorie malnutrition [E43]; Stage 3a chronic kidney disease (HCC) [N18.31]; Biliary tube migration, initial encounter Discharge Disposition: Discharge to home or self care 11/09/2024 Telephone Radiology [address] [place] [address] Columba Garcia PA 10/31/2024 2:00 PM CDT - 10/31/2024 11:59 PM CDT Hospital Encounter [facility] [address] [place] [phone] Gall bladder inflammation Discharge Disposition: Discharge to home or self care 10/26/2024 1:11 PM CDT Anesthesia Event [facility] [address] [place] [phone] Eva Pa MD Fuqua, Justin Kyle, CRNA 10/26/2024 Telephone [facility] [address] [place] [phone] Park Johns RN 10/26/2024 Orders Only [facility] [address] [place] [phone] Park Johns RN 10/22/2024 2:46 AM CDT - 10/28/2024 12:39 PM CDT Hospital Encounter [address] [phone] Salinas Pro MD Shimotani, Daoy Snyder, DO Maria, MD Chance Valdez Sophia, MD Halasa, MD Kian Pneumonia of right middle lobe due to infectious organism (Primary Dx); Malfunction of device; Acute kidney injury [N17.9]; Acute on chronic renal insufficiency [N28.9, N18.9]; Anemia due to stage 3a chronic kidney disease (HCC) [N18.31, D63.1]; Biliary drain displacement, initial encounter [T85.520A]; HCAP (healthcare-associat ed pneumonia) [J18.9]; Chronic obstructive pulmonary disease, unspecified COPD type ([facility]) [J44.9]; Chronic respiratory failure with hypoxia ([facility]) [J96.11]; Former smoker [Z87.891] Discharge Disposition: Discharge to home or self care from Last 3 Months Immunizations Immunization Administration Dates Next Due Sars-CoV-2, Unspecified 08/20/2020 ZOSTER Recombinant 02/27/2019 Surgical History Surgery Date Site/Laterality Comments LUMBAR FUSION Arthrodesis Lumbar - (Added by TW Conv) ANKLE SURGERY 06/13/2015 - 06/12/2016 Left Ankle Surgery - (Added by SEBASTIAN Conv) [place] NJX AA&/STRD TFRML EPI LUMBAR/SACRAL 1 LEVEL Corticosteroid Inj Transforaminal Approach Lumbar W/ Fluoroscopic Guidance - (Added by SEBASTIAN Conv) US ABDOMEN COMPLETE W LIVER DOPPLER [...] CATHETER EXTERNAL OR INTERNAL EXTERNAL 09/28/2024 N/A CHANGE BILIARY DRAINAGE CATHETER EXTERNAL OR INTERNAL EXTERNAL 10/22/2024 N/A CHANGE BILIARY DRAINAGE CATHETER EXTERNAL OR INTERNAL EXTERNAL 10/26/2024 N/A CHANGE BILIARY DRAINAGE CATHETER EXTERNAL OR INTERNAL EXTERNAL 11/12/2024 N/A CHANGE BILIARY DRAINAGE CATHETER EXTERNAL OR INTERNAL EXTERNAL 11/22/2024 N/A CHANGE BILIARY DRAINAGE CATHETER EXTERNAL OR INTERNAL EXTERNAL 12/20/2024 N/A CHANGE BILIARY DRAINAGE CATHETER EXTERNAL OR INTERNAL EXTERNAL 12/21/2024 N/A CHANGE BILIARY DRAINAGE CATHETER EXTERNAL OR INTERNAL EXTERNAL 12/26/2024 N/A CHANGE BILIARY DRAINAGE CATHETER EXTERNAL OR INTERNAL EXTERNAL 01/02/2025 N/A Medical History Medical History Date Comments Personal history of other di seases of the circulatory system History of hypertension - (A dded by SEBASTIAN Coleman) Emphysema of lung Chronic pain disorder Pinched nerve right hand Oxygen dependent 3 L cont Low back pain Infectious viral hepatitis hx--t reated successfully Anemia 12/2023 Hypertension 1979 Chronic kidney disease 2019 Chronic kidney disease, stage 3a (HCC) Sleep apnea hsu not use CPAP Family History Medical History Relation Name Comments Cancer Brother 1 Skip Cotto Colon cancer Brother 1 Skip Cotto Diabetes Brother 2 Raj Cotto Stroke Brother 2 Raj Cotto Asthma Father Rev Denys Cotto Cancer Father Rev Denys oCtto Asthma Mother Shanell Cotto Relation Name Status [...] materials from doctor or pharmacy Never 04/12/2023 [facility] Utilities Answer Date Recorded In the past 12 months has th e [employer], gas, oil, or water [employer] threatened to shut off services in your home? No 11/13/2024 Social Connection and Isolat ion Panel [NHANES] Answer Date Recorded In a typical week, how many times do you talk on the phone with family, friends, or neighbors? More than three times a week 11/13/2024 How often do you get togethe r with friends or relatives? Never 11/13/2024 How often [facility] you attend [facility] or [facility] services? Never 11/13/2024 Do you belong to [...] place to sleep or slept in a correction (including now)? No 02/03/2023 Housing Stability Vital Sign Answer Ministerio e Recorded In the last 12 months, was t here a time when you were not able to pay the mortgage or rent on time? No 11/13/2024 In the past 12 months, how m any times have you moved where you were living? 0 11/13/2024 At any time in the past 12 m [facility], were you homeless or living in a correction (including now)? No 11/13/2024 Personal Safety Answer Date Recorded Have you ever been in or are you currently in a harmful physical or emotional relationship or is someone making you feel afraid or unsafe? Denies 01/02/2025 Sex and Gender Information Value Date Recorded Sex Assigned at Not on file Legal Sex Male 1:47 AM [employer] Gender Identity Not on file Sexual Orientation Not on file Obstetrics History Last Filed Vital Signs Vital Sign Reading Time Taken Comments Blood Pressure 105/73 01/02/2025 12:30 PM CDT Pulse 130 01/02/2025 12:30 PM CDT Temperature 37 C (98.6 F) 01/02/2025 11:31 AM CDT Respiratory Rate 16 01/02/2025 12:30 PM CDT Oxygen Saturation 97% 01/02/2025 12:30 PM CDT Inhaled Oxygen Concentration - - Weight 72.1 kg (159 lb) 01/02/2025 11:31 AM CDT Height 172.7 cm (5' 8) 01/02/2025 11:31 AM CDT Body Mass Index 24.18 01/02/2025 11:31 AM CDT Plan of Treatment Health Maintenance Due Date Last Done Comments Colon Cancer Screening-Colonoscopy 1950 Depression Screening 1950 Prostate Cancer Screening-PSA 1950 DTaP/Tdap/Td Vaccine (1 - Tdap) 1961 Hepatitis B Screening 1968 Pneumococcal vaccine 65+ (1 of 2 - PCV) 1969 Well Visit 65+ 12/05/2015 Zoster Vaccine (2 of 2) 04/24/2019 02/27/2019 Influenza Vaccine (#1) 2025 Fall Risk Assessment 01/02/2026 01/02/2025 Hepatitis C Screening Completed 04/14/2018, 018 Abdominal Aortic Aneurysm (A AA) Screen Completed 11/11/2024, 10/22/2024, 08/21/2024, Additional history exists Goals Goal Patient Goal Type Associated Problems Recent Progress Patient-Stated? Author CCM Chronic Pain Care Plan Chronic Care Management Improving( 9:19 AM CDT) Genevieve Sandra RN Note: Problem: Chronic Pain Goals: 1. Minimize further functional decline 2. Maximize quality of life 3. 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 Device Identifier Shelf Expiration Date Model / Serial / Lot [employer] Ian Advanix 10fr 7cm Rapid Exchange Temporary Taper Tip Thin Wall 2 [id number] - [id number] Explanted:Qty: 1 on 02/01/2023 at [facility] Stent N/A: Bile Duct [employer] Ian 11/17/2024 [id number] / / [id number] Description:Slipped out of d uct [employer] Stent Biliary Over The Wire 0.035in Gw Comp Self Expanding E Luminexx [id number] Nitinol [id number] - [id number] Implanted:Qty: 1 on 10/26/2024 at [facility] Explanted:Qty: 1 on 11/12/2024 by Cristiano Gallardo MD at [facility] [employer] [id number] 12/12/2026 [id number] / / [id number] Procedures Procedure Name Priority Date/Time Associated Diagnosis Comments CHANGE BILIARY DRAINAGE CATHETER EXTERNAL OR INTERNAL EXTERNAL Schedule Routine, Read Routine (OP Routine) 01/02/2025 12:18 PM CDT Biliary obstruction (HCC) CHANGE BILIARY DRAINAGE CATHETER EXTERNAL OR INTERNAL EXTERNAL Schedule Routine, Read Routine (OP Routine) 12/26/2024 2:14 PM CDT Biliary obstruction (HCC) CHANGE BILIARY DRAINAGE CATHETER EXTERNAL OR INTERNAL EXTERNAL Schedule Routine, Read Routine (OP Routine) 12/21/2024 2:34 PM CDT Biliary obstruction (HCC) CHANGE BILIARY DRAINAGE CATHETER EXTERNAL OR INTERNAL EXTERNAL Schedule Routine, Read Routine (OP Routine) 12/20/2024 1:43 PM CDT Biliary obstruction (HCC) TROPONIN T HIGH-SENSITIVITY 2-HOUR Timed 12/15/2024 10:24 AM CDT XR CHEST 1 VIEW ED 12/15/2024 8:42 AM CDT ECG 12-LEAD STAT 12/15/2024 8:40 AM CDT [place] CRITICAL CARE ILL/INJURED PATIENT INIT 30-74 MIN Routine 12/15/2024 8:28 AM CDT EGFR STAT 12/15/2024 8:27 AM CDT DIFFERENTIAL AUTO STAT 12/15/2024 8:2 7 AM CDT TROPONIN T HIGH-SENSITIVITY SERIES (BASELINE, 2HR, 4HR, 6HR) STAT 12/15/2024 8:27 AM CDT CBC WITH AUTO DIFFERENTIAL STAT 12/15/2024 8:27 AM CDT COMPREHENSIVE METABOLIC PANEL STAT 12/15/2024 8:27 AM CDT CHANGE BILIARY DRAINAGE CATHETER EXTERNAL OR INTERNAL EXTERNAL Schedule Routine, Read Routine (OP Routine) 11/22/2024 11:28 AM CDT Biliary obstruction (HCC) EGFR STAT 11/15/2024 2:55 PM CDT COMPREHENSIVE METABOLIC PANEL STAT 11/15/2024 2:55 PM CDT EGFR Routine 11/13/2024 8:30 AM CDT DIFFERENTIAL AUTO Routine 11/13/2024 8:3 0 AM CDT COMPREHENSIVE METABOLIC PANEL Routine 11/13/2024 8:30 AM CDT CBC WITH AUTO DIFFERENTIAL Routine 11/13/2024 8:30 AM CDT URINALYSIS, MICROSCOPIC ONLY STAT 11/12/2024 4:03 PM CDT URINALYSIS AND REFLEX TO MICROSCOPIC AND CULTURE STAT 11/12/2024 4:03 PM CDT FL FLUOROSCOPY < 1 HOUR IP Routine 11/12/2024 2:50 PM CDT SMALL BOWEL WITH REMOVAL FOREIGN BODY 11/12/2024 2:33 PM CDT Migration of biliary stent, initial encounter SMALL BOWEL ENTEROSCOPY 11/12/2024 2:28 PM CDT CHANGE BILIARY DRAINAGE CATHETER EXTERNAL OR INTERNAL EXTERNAL IP Routine 11/12/2024 11:37 AM CDT MAGNESIUM STAT 11/12/2024 9:11 AM CDT EGFR STAT 11/12/2024 9:11 AM CDT DIFFERENTIAL AUTO STAT 11/12/2024 9:1 1 AM CDT CBC WITH AUTO DIFFERENTIAL STAT 11/12/2024 9:11 AM CDT COMPREHENSIVE METABOLIC PANEL STAT 11/12/2024 9:11 AM CDT TRANSFUSE RED BLOOD CELLS Timed 11/11/2024 6:[address] ABDOMEN PELVIS W CONTRAST ED 11/11/2024 5:58 PM CDT TYPE AND SCREEN Routine 11/11/2024 4:28 PM CDT PREPARE RBC STAT 11/11/2024 4:05 PM CDT EGFR STAT 11/11/2024 2:39 PM CDT DIFFERENTIAL AUTO STAT 11/11/2024 2:3 9 PM CDT SEPSIS LACTATE WITH REFLEX STAT 11/11/2024 2:39 PM CDT COMPREHENSIVE METABOLIC PANEL STAT 11/11/2024 2:39 PM CDT CBC WITH AUTO DIFFERENTIAL STAT 11/11/2024 2:39 PM CDT IR FOLLOW UP Schedule Routine, Read Routine (OP Routine) 10/31/2024 3:36 PM CDT Gall bladder inflammation EGFR Routine 10/28/2024 5:46 AM CDT DIFFERENTIAL AUTO Routine 10/28/2024 5:4 6 AM CDT COMPREHENSIVE METABOLIC PANEL Routine 10/28/2024 5:46 AM CDT CBC WITH AUTO DIFFERENTIAL Routine 10/28/2024 5:46 AM CDT INCENTIVE SPIROMETRY RT Routine 10/27/2024 4:00 PM CDT INCENTIVE SPIROMETRY RT Routine 10/27/2024 12:00 PM CDT INCENTIVE SPIROMETRY RT Routine 10/27/2024 8:00 AM CDT AEROBIC CULTURE AND GRAM STAIN Routine 10/27/2024 6:52 AM CDT URINALYSIS, MICROSCOPIC ONLY Routine 10/27/2024 6:37 AM CDT SODIUM, URINE, RANDOM Routine 10/27/2024 6:37 AM CDT CREATININE, URINE, RANDOM Routine 10/27/2024 6:37 AM CDT URINALYSIS AND REFLEX TO MICROSCOPIC AND CULTURE Routine 10/27/2024 6:37 AM CDT LEGIONELLA ANTIGEN, URINE Routine 10/27/2024 6:33 AM CDT STREP PNEUMONIAE AG, URINE Routine 10/27/2024 6:33 AM CDT EGFR Routine 10/27/2024 6:11 AM CDT DIFFERENTIAL AUTO Routine 10/27/2024 6:1 1 AM CDT COMPREHENSIVE METABOLIC PANEL Routine 10/27/2024 6:11 AM CDT CBC WITH AUTO DIFFERENTIAL Routine 10/27/2024 6:11 AM CDT INCENTIVE SPIROMETRY RT Routine 10/27/2024 4:00 AM CDT INCENTIVE SPIROMETRY RT Routine 10/27/2024 12:00 AM CDT POCT GLUCOSE DEVICE Routine 10/26/2024 1 1:34 PM CDT POCT GLUCOSE DEVICE Routine 10/26/2024 8 :29 PM CDT INCENTIVE SPIROMETRY RT Routine 10/26/2024 8:00 PM CDT INCENTIVE SPIROMETRY RT Routine 10/26/2024 4:00 PM CDT CHANGE BILIARY DRAINAGE CATHETER EXTERNAL OR INTERNAL EXTERNAL IP Routine 10/26/2024 3:07 PM CDT INCENTIVE SPIROMETRY RT Routine 10/26/2024 12:00 PM CDT INCENTIVE SPIROMETRY RT Routine 10/26/2024 8:01 AM CDT EGFR Routine 10/26/2024 5:16 AM CDT DIFFERENTIAL AUTO Routine 10/26/2024 5:1 6 AM CDT COMPREHENSIVE METABOLIC PANEL Routine 10/26/2024 5:16 AM CDT CBC WITH AUTO DIFFERENTIAL Routine 10/26/2024 5:16 AM CDT INCENTIVE SPIROMETRY RT Routine 10/26/2024 4:00 AM CDT INCENTIVE SPIROMETRY RT Routine 10/26/2024 12:00 AM CDT INCENTIVE SPIROMETRY RT Routine 10/25/2024 8:00 PM CDT INCENTIVE SPIROMETRY RT Routine 10/25/2024 4:00 PM CDT INCENTIVE SPIROMETRY RT Routine 10/25/2024 12:00 PM CDT INCENTIVE SPIROMETRY RT Routine 10/25/2024 8:00 AM CDT INCENTIVE SPIROMETRY RT Routine 10/25/2024 4:00 AM CDT EGFR Routine 10/25/2024 12:26 AM CDT DIFFERENTIAL AUTO Routine 10/25/2024 12: 26 AM CDT COMPREHENSIVE METABOLIC PANEL Routine 10/25/2024 12:26 AM CDT CBC WITH AUTO DIFFERENTIAL Routine 10/25/2024 12:26 AM CDT INCENTIVE SPIROMETRY RT Routine 10/25/2024 12:00 AM CDT INCENTIVE SPIROMETRY RT Routine 10/24/2024 8:00 PM CDT INCENTIVE SPIROMETRY RT Routine 10/24/2024 4:00 PM CDT ADD ON LAB TEST Add-On 10/24/2024 2:17 PM CDT INCENTIVE SPIROMETRY RT Routine 10/24/2024 12:01 PM CDT INCENTIVE SPIROMETRY RT Routine 10/24/2024 8:01 AM CDT IRON PROFILE W/ IBC Routine 10/24/2024 4 :21 AM CDT EGFR Routine 10/24/2024 4:21 AM CDT DIFFERENTIAL AUTO Routine 10/24/2024 4:2 1 AM CDT COMPREHENSIVE METABOLIC PANEL Routine 10/24/2024 4:21 AM CDT CBC WITH AUTO DIFFERENTIAL Routine 10/24/2024 4:21 AM CDT INCENTIVE SPIROMETRY RT Routine 10/24/2024 4:00 AM CDT INCENTIVE SPIROMETRY RT Routine 10/24/2024 12:00 AM CDT HEMOGLOBIN AND HEMATOCRIT Timed 10/23/2024 9:18 PM CDT INCENTIVE SPIROMETRY RT Routine 10/23/2024 8:00 PM CDT AEROBIC CULTURE AND GRAM STAIN Routine 10/23/2024 6:30 PM CDT TRANSTHORACIC ECHO (TTE) COMPLETE W DOPPLER/CF W CONTRAST Routine 10/23/2024 5:07 PM CDT INCENTIVE SPIROMETRY RT Routine 10/23/2024 4:[address] CHEST WO CONTRAST ED Urgent/IP Urgent 10/23/2024 3:37 PM CDT INCENTIVE SPIROMETRY RT Routine 10/23/2024 12:01 PM CDT HEMOGLOBIN AND HEMATOCRIT Timed 10/23/2024 11:32 AM CDT PREPARE RBC STAT 10/23/2024 8:27 AM CDT INCENTIVE SPIROMETRY RT Routine 10/23/2024 8:01 AM CDT TRANSFUSE RED BLOOD CELLS Timed 10/23/2024 5:40 AM CDT INCENTIVE SPIROMETRY RT Routine 10/23/2024 4:00 AM CDT PREPARE RBC STAT 10/23/2024 3:10 AM CDT EGFR Routine 10/23/2024 2:00 AM CDT DIFFERENTIAL AUTO Routine 10/23/2024 2:0 0 AM CDT COMPREHENSIVE METABOLIC PANEL Routine 10/23/2024 2:00 AM CDT CBC WITH AUTO DIFFERENTIAL Routine 10/23/2024 2:00 AM CDT MAGNESIUM Routine 10/23/2024 2:00 AM CDT INCENTIVE SPIROMETRY RT Routine 10/23/2024 12:00 AM CDT INCENTIVE SPIROMETRY RT Routine 10/22/2024 8:00 PM CDT HEMOGLOBIN AND HEMATOCRIT Timed 10/22/2024 7:24 PM CDT ECG 12-LEAD STAT 10/22/2024 6:46 PM CDT INCENTIVE SPIROMETRY RT Routine 10/22/2024 4:00 PM CDT MRSA ONLY (STAPHYLOCOCCUS AUREUS) PCR Routine 10/22/2024 3:34 PM CDT CHANGE BILIARY DRAINAGE CATHETER EXTERNAL OR INTERNAL EXTERNAL IP Routine 10/22/2024 2:03 PM CDT URINALYSIS, MICROSCOPIC ONLY STAT 10/22/2024 1:17 PM CDT URINALYSIS AND REFLEX TO MICROSCOPIC AND CULTURE STAT 10/22/2024 1:17 PM CDT EGFR Routine 10/22/2024 12:48 PM CDT DIFFERENTIAL AUTO Routine 10/22/2024 12: 48 PM CDT COMPREHENSIVE METABOLIC PANEL Routine 10/22/2024 12:48 PM CDT CBC WITH AUTO DIFFERENTIAL Routine 10/22/2024 12:48 PM CDT INCENTIVE SPIROMETRY RT Routine 10/22/2024 11:58 AM CDT INCENTIVE SPIROMETRY RT Routine 10/22/2024 11:58 AM CDT INCENTIVE SPIROMETRY RT Routine 10/22/2024 11:58 AM CDT INCENTIVE SPIROMETRY RT Routine 10/22/2024 11:58 AM CDT INCENTIVE SPIROMETRY RT Routine 10/22/2024 11:58 AM CDT INCENTIVE SPIROMETRY RT Routine 10/22/2024 11:58 AM CDT INCENTIVE SPIROMETRY RT Routine 10/22/2024 11:[address] ABDOMEN PELVIS WO CONTRAST IP Routine 10/22/2024 8:04 AM CDT LACTATE DEHYDROGENASE Routine 10/22/2024 7:20 AM CDT HAPTOGLOBIN Routine 10/22/2024 7:20 AM CDT TYPE AND SCREEN Routine 10/22/2024 7:20 AM CDT SEPSIS LACTATE WITH REFLEX Routine 10/22/2024 7:20 AM CDT XR CHEST 1 VIEW ED 10/22/2024 3:18 AM CDT BLOOD CULTURE Routine 10/22/2024 3:08 AM CDT BLOOD CULTURE Routine 10/22/2024 3:08 AM CDT EGFR STAT 10/22/2024 2:55 AM CDT LIPASE STAT 10/22/2024 2:55 AM CDT DIFFERENTIAL AUTO STAT 10/22/2024 2:5 5 AM CDT TROPONIN T HIGH-SENSITIVITY SERIES (BASELINE, 2HR, 4HR, 6HR) STAT 10/22/2024 2:55 AM CDT CBC WITH AUTO DIFFERENTIAL STAT 10/22/2024 2:55 AM CDT COMPREHENSIVE METABOLIC PANEL STAT 10/22/2024 2:55 AM CDT ECG 12-LEAD STAT 10/22/2024 2:54 AM CDT HEPATITIS C RNA, QUANTITATIVE, PCR Routine 04/14/2018 9:10 AM CDT from Last 3 Months or Most Recently Relevant to Health Maintenance Results * IR Change Biliary Drainage Catheter External Or Internal External (01/02/2025 12:18 PM CDT) Anatomical Region Laterality Modality Body N/A X-Ray Angiograph y 01/02/2025 2:28 PM CDT Impressions 01/02/2025 2:28 PM CDT Successful biliary catheter change and administration of alteplase as described above. PLAN: The patient will return for interval biliary drainage catheter exchange in 1 week with repeat administration of alteplase. She will continue to flush the catheter with 20 mL normal saline 3 times daily. 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 He has been managed with multiple different biliary drains which are frequently complicated by occlusion and severe leakage around the catheter. Currently the patient has been converted to external biliary drainage. At the most recent visit alteplase was instilled following the drain exchange which appeared to improve the output. Patient noted there was no significant leakage over the past week and feels this has worked well compared to prior interventions and issues with leakage. Plan today for drain exchange and administration of alteplase. PROVIDER PRESENCE: Deven Isaac PA-C, was present from the beginning to the end of the procedure. SEDATION: Conscious sedation was used for the procedure. TECHNIQUE: The risks, benefits and alternatives were discussed and informed consent was obtained. Prior to beginning the procedure, [place] Protocol was performed to confirm the patient's [...] The catheter was then divided and a Tawkersson wire was advanced through the catheter under fluoroscopic monitoring. The existing catheter was exchanged over the wire for a new 16-Lao cope catheter. Limited contrast injection through the catheter under fluoroscopic monitoring confirmed appropriate position in the common bile duct. The catheter was secured in position using a 0 Prolene suture. 4 mg alteplase was instilled through the catheter and allowed to dwell for 30 minutes. After that time the catheter was reconnected to gravity drainage. A sterile dressing was applied. ESTIMATED BLOOD LOSS: None CONDITION: Stable DISCHARGED TO: Recovery FINDINGS: Contrast injection shows partially occluded biliary catheter with debris filling the common bile duct. Following exchange, the catheter appeared in appropriate position within the common bile duct. Alteplase was used to improve catheter output. 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 He has been managed with multiple different biliary drains which are frequently complicated by occlusion and severe leakage around the catheter. Currently the patient has been converted to external biliary drainage. At the most recent visit alteplase was instilled following the drain exchange which appeared to improve the output. Patient noted there was no significant leakage over the past week and feels this has worked well compared to prior interventions and issues with leakage. Plan today for drain exchange and administration of alteplase. PROVIDER PRESENCE: Deven Isaac PA-C, was present from the beginning to the end of the procedure. SEDATION: Conscious sedation was used for the procedure. TECHNIQUE: The risks, benefits and alternatives were discussed and informed consent was obtained. Prior to beginning the procedure, [place] Protocol was performed to confirm the patient's [...] The catheter was then divided and a [email or web address] wire was advanced through the catheter under fluoroscopic monitoring. The existing catheter was exchanged over the wire for a new 16-Lao cope catheter. Limited contrast injection through the catheter under fluoroscopic monitoring confirmed appropriate position in the common bile duct. The catheter was secured in position using a 0 Prolene suture. 4 mg alteplase was instilled through the catheter and allowed to dwell for 30 minutes. After that time the catheter was reconnected to gravity drainage. A sterile dressing was applied. ESTIMATED BLOOD LOSS: None CONDITION: Stable DISCHARGED TO: Recovery FINDINGS: Contrast injection shows partially occluded biliary catheter with debris filling the common bile duct. Following exchange, the catheter appeared in appropriate position within the common bile duct. Alteplase was used to improve catheter output. IMPRESSION: Successful biliary catheter change and administration of alteplase as described above. PLAN: The patient will return for interval biliary drainage catheter exchange in 1 week with repeat administration of alteplase. She will continue to flush the catheter with 20 mL normal saline 3 times daily. Electronically signed by: Deven Isaac PA-C Jennifer [facility] IR PROCEDURES Final Result * IR Change Biliary Drainage Catheter External Or Internal External (12/26/2024 2:14 PM CDT) Anatomical Region Laterality Modality Body N/A X-Ray Angiograph y 12/26/2024 5:36 PM CDT Impressions 12/26/2024 5:36 PM CDT Successful external biliary catheter exchange as described above. PLAN: Given that this or any other drainage catheter will likely clot because of the thick gelatinous material produced by his tumor, recommend that we switch to having the patient return on a regular basis (weekly) drain exchange and possible continued treatment with TPA. Electronically signed by: Seun Madrid M.D. Narrative 12/26/2024 5:36 PM CDT EXAMINATION: BILIARY TUBE CHANGE HISTORY/INDICATION: 74-year-old male with known mucinous tumor causing biliary obstruction. Patient has a long-standing internal/external biliary drain which was recently converted to an external biliary drain. Unfortunately, despite diligent effort with a series of different catheters he has recurrent episodes of tube plugging with the thick mucin. He presents with drainage at the skin surrounding this tube. ATTENDING PRESENCE: Seun Madrid M.D., the attending radiologist was present from the beginning to the end of the procedure. SEDATION: Procedural sedation was administered under the attending physician's direction and continuous monitoring by a trained nurse specialist who was independent from those actually performing the procedure. Total monitored sedation time was 53 minutes. TECHNIQUE: The risks, benefits and alternatives were discussed and informed consent was obtained. Prior to beginning the procedure, [place] Protocol was performed to confirm the patient's [...] The catheter was then divided and a Tawkersson wire was advanced through the catheter under fluoroscopic monitoring. The existing 18 Lao catheter was exchanged over the guidewire for an 18 Lao sheath and this was used to aspirate the thick gelatinous material from the dilated common bile duct. Samples of this fluid were divided into a series a specimen cups on the back table. Given the mucinous material aspirated, it was decided to test whether different proteases might be able to degree the mucin. Samples of the aspirate were treated with thrombin (5000 units), TPA (4 mg) and Pancrelipase granules (24,000 units). While the Pancrelipase granules had little visible impact on the gelatinous material, the tPA and to a lesser extent the thrombin did appear to result in thinner liquid. At the same time, series of different catheters were used to evacuate as much of the gelatinous material from the common bile duct is possible. At the end of the procedure, new 16 Lao locking pigtail catheter was placed with its tip in the distal common bile duct. Given the evidence that TPA could potentially degrade the underlying mucin and lead to thinner material which could potentially drain through the catheter, 4 mg of tPA was instilled into the common bile duct allowed to 12 for 30 minutes. Catheter was secured in place with a single stitch and connected back to a suction device. ESTIMATED BLOOD LOSS: Minimal. CONDITION: Stable DISCHARGED TO: home. FINDINGS: Obstructed biliary catheter. Initial images show a markedly dilated common bile duct with internal filling defect. Later in the procedure, images show evacuation of the filling defects. This was evidenced by the ability to rapidly aspirate any injected contrast. Final image shows the new catheter with its tip in the common bile duct. Procedure Note Seun Madrid MD PhD - 12/26/2024 EXAMINATION: BILIARY TUBE CHANGE HISTORY/INDICATION: 74-year-old male with known mucinous tumor causing biliary obstruction. Patient has a long-standing internal/external biliary drain which was recently converted to an external biliary drain. Unfortunately, despite diligent effort with a series of different catheters he has recurrent episodes of tube plugging with the thick mucin. He presents with drainage at the skin surrounding this tube. ATTENDING PRESENCE: Seun Madrid M.D., the attending radiologist was present from the beginning to the end of the procedure. SEDATION: Procedural sedation was administered under the attending physician's direction and continuous monitoring by a trained nurse specialist who was independent from those actually performing the procedure. Total monitored sedation time was 53 minutes. TECHNIQUE: The risks, benefits and alternatives were discussed and informed consent was obtained. Prior to beginning the procedure, [place] Protocol was performed to confirm the patient's [...] The catheter was then divided and a Tawkersson wire was advanced through the catheter under fluoroscopic monitoring. The existing 18 Lao catheter was exchanged over the guidewire for an 18 Lao sheath and this was used to aspirate the thick gelatinous material from the dilated common bile duct. Samples of this fluid were divided into a series a specimen cups on the back table. Given the mucinous material aspirated, it was decided to test whether different proteases might be able to degree the mucin. Samples of the aspirate were treated with thrombin (5000 units), TPA (4 mg) and Pancrelipase granules (24,000 units). While the Pancrelipase granules had little visible impact on the gelatinous material, the tPA and to a lesser extent the thrombin did appear to result in thinner liquid. At the same time, series of different catheters were used to evacuate as much of the gelatinous material from the common bile duct is possible. At the end of the procedure, new 16 Lao locking pigtail catheter was placed with its tip in the distal common bile duct. Given the evidence that TPA could potentially degrade the underlying mucin and lead to thinner material which could potentially drain through the catheter, 4 mg of tPA was instilled into the common bile duct allowed to 12 for 30 minutes. Catheter was secured in place with a single stitch and connected back to a suction device. ESTIMATED BLOOD LOSS: Minimal. CONDITION: Stable DISCHARGED TO: home. FINDINGS: Obstructed biliary catheter. Initial images show a markedly dilated common bile duct with internal filling defect. Later in the procedure, images show evacuation of the filling defects. This was evidenced by the ability to rapidly aspirate any injected contrast. Final image shows the new catheter with its tip in the common bile duct. IMPRESSION: Successful external biliary catheter exchange as described above. PLAN: Given that this or any other drainage catheter will likely clot because of the thick gelatinous material produced by his tumor, recommend that we switch to having the patient return on a regular basis (weekly) drain exchange and possible continued treatment with TPA. Electronically signed by: Seun Madrid M.D. Herb [facility] IR PROCEDURES Fin al Result * IR Change Biliary Drainage Catheter External Or Internal External (12/21/2024 2:34 PM CDT) Anatomical Region Laterality Modality Body N/A X-Ray Angiograph y 12/21/2024 4:30 PM CDT Impressions 12/21/2024 4:30 PM CDT Successful exchange of external biliary drain and irrigation and drainage through the tract. PLAN: Continue to monitor catheter output as well as the patient's clinical condition. The catheter should be flushed with at least 20 cc saline 3 times daily. Recommend follow up in 3 weeks. If questions arise, please contact us by calling [phone]. Electronically signed by: Jennifer Perry PA-C Narrative 12/21/2024 4:30 PM CDT EXAMINATION: EXTERNAL BILIARY DRAIN EXCHANGE HISTORY: 74-year-old male with mucinous biliary tumor and a lifelong external biliary drainage catheter presents for drain exchange due to copious pericatheter leakage following drain exchange yesterday. PROVIDER PRESENCE: Jennifer Perry PA-C, was present from the beginning to the end of the procedure. SEDATION: Conscious sedation was administered to the patient. TECHNIQUE: Prior to beginning the procedure, [place] Protocol was used to confirm the patient's identity and planned procedure. Fluoroscopy time has been recorded in the electronic medical record. Maximum sterile barriers including cap, mask, hand hygiene, sterile gloves, sterile gown, large sterile drape and 2% chlorhexidine for cutaneous antisepsis were used. After obtaining a electrical instrument maker image, the right upper quadrant 18-Lao Whiting external biliary catheter was injected with dilute contrast and multiple diagnostic fluoroscopic spot images were obtained. The skin overlying the collection was sterilely prepped, draped and infiltrated with 1% lidocaine. The catheter was then exchanged over a Tawkersson guidewire for a new 18-Lao Haroon catheter with additional sideholes. The Haroon catheter was used to inject 0.9% sodium chloride and then the drain was attached to either wall suction or the Accordion suction bag. These steps were repeated numerous times until over 300 cc mucinous biliary fluid was drained. Ultimately a new 18-Lao Whiting catheter was exchanged over the wire and positioned in the common bile duct. Limited contrast injection confirmed appropriate placement of the catheter. The catheter was secured in place with TWO 0-Prolene stitches and connected to a new Accordion drainage bag. A sterile dressing was applied. ESTIMATED BLOOD LOSS: Minimal. CONDITION: Stable. DISCHARGED TO: Recovery and then home. FINDINGS: Images from the catheter injection demonstrate catheter tip positioned in the common bile duct, which remains dilated. Procedure Note Jennifer Perry PA - 12/21/2024 EXAMINATION: EXTERNAL BILIARY DRAIN EXCHANGE HISTORY: 74-year-old male with mucinous biliary tumor and a lifelong external biliary drainage catheter presents for drain exchange due to copious pericatheter leakage following drain exchange yesterday. PROVIDER PRESENCE: Jennifer Perry PA-C, was present from the beginning to the end of the procedure. SEDATION: Conscious sedation was administered to the patient. TECHNIQUE: Prior to beginning the procedure, [place] Protocol was used to confirm the patient's identity and planned procedure. Fluoroscopy time has been recorded in the electronic medical record. Maximum sterile barriers including cap, mask, hand hygiene, sterile gloves, sterile gown, large sterile drape and 2% chlorhexidine for cutaneous antisepsis were used. After obtaining a electrical instrument maker image, the right upper quadrant 18-Lao Whiting external biliary catheter was injected with dilute contrast and multiple diagnostic fluoroscopic spot images were obtained. The skin overlying the collection was sterilely prepped, draped and infiltrated with 1% lidocaine. The catheter was then exchanged over a Bentson guidewire for a new 18-Lao Haroon catheter with additional sideholes. The Haroon catheter was used to inject 0.9% sodium chloride and then the drain was attached to either wall suction or the Accordion suction bag. These steps were repeated numerous times until over 300 cc mucinous biliary fluid was drained. Ultimately a new 18-Lao Whiting catheter was exchanged over the wire and positioned in the common bile duct. Limited contrast injection confirmed appropriate placement of the catheter. The catheter was secured in place with TWO 0-Prolene stitches and connected to a new Accordion drainage bag. A sterile dressing was applied. ESTIMATED BLOOD LOSS: Minimal. CONDITION: Stable. DISCHARGED TO: Recovery and then home. FINDINGS: Images from the catheter injection demonstrate catheter tip positioned in the common bile duct, which remains dilated. IMPRESSION: Successful exchange of external biliary drain and irrigation and drainage through the tract. PLAN: Continue to monitor catheter output as well as the patient's clinical condition. The catheter should be flushed with at least 20 cc saline 3 times daily. Recommend follow up in 3 weeks. If questions arise, please contact us by calling [phone]. Electronically signed by: Jennifer Perry PA-C us Nicolasa [facility] IR PROCEDURES Fin al Result * IR Change Biliary Drainage Catheter External Or Internal External (12/20/2024 1:43 PM CDT) Anatomical Region Laterality Modality Body N/A X-Ray Angiograph y 12/20/2024 3:40 PM CDT Impressions 12/20/2024 3:40 PM CDT Successful exchange of 18 Fr Whiting catheter in the common bile duct. PLAN: The patient should return once a month for routine external biliary drain which is to be reattached to an accordion suction bag with a flush port to be flushed with 20 cc sterile saline once a day. 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 Since then, the patient has returned for numerous biliary drain exchanges and up sizes due to significant pericatheter leakage. He was last seen on 11/22/24 at which time the catheter was exchanged for an 18 Fr Whiting catheter within the significantly distended common bile duct. This has been flushed with 20 cc NS daily and is connected to an accordion drain. This arrangement has had the best success in quite some time. He presents today for 4 week exchange. He does request sedation today. Of note, this is a terminal drain as he is not a surgical candidate. PROVIDER PRESENCE: Nicolasa Moreira PA-C was present from the beginning to the end of the procedure. SEDATION: Conscious sedation was used for this procedure. TECHNIQUE: The risks, benefits and alternatives were discussed and informed consent was obtained. Prior to beginning the procedure, [place] Protocol was performed to confirm the patient's identity and the planned procedure. The fluoroscopy time has been recorded in the electronic medical record. Under fluoroscopic guidance, over a Bentson guidewire, the existing 18 Lao cope catheter was exchanged for a new 18 Fr Whiting catheter. The loop was formed in the common bile duct, above the ampulla, and contrast was injected to confirm appropriate positioning. This catheter was then attached to an accordion suction bag which provided enough suction to pull out mucin from the common bile duct and irrigation port for the patient injected 20 cc sterile saline once a day. At the end of the procedure, the catheter was connected to an accordion suction bag with a flush port. ESTIMATED BLOOD LOSS: Minimal CONDITION: Stable condition DISCHARGED TO: Recovery and then to outpatient recovery FINDINGS: Initial images showed a patent 18 Fr Whiting catheter with loop still in place in the dilated common bile duct. The final fluoroscopic image demonstrates appropriate positioning of a new 18 Lao cope loop within the common bile duct. 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 Since then, the patient has returned for numerous biliary drain exchanges and up sizes due to significant pericatheter leakage. He was last seen on 11/22/24 at which time the catheter was exchanged for an 18 Fr Whiting catheter within the significantly distended common bile duct. This has been flushed with 20 cc NS daily and is connected to an accordion drain. This arrangement has had the best success in quite some time. He presents today for 4 week exchange. He does request sedation today. Of note, this is a terminal drain as he is not a surgical candidate. PROVIDER PRESENCE: Nicolasa Moreira PA-C was present from the beginning to the end of the procedure. SEDATION: Conscious sedation was used for this procedure. TECHNIQUE: The risks, benefits and alternatives were discussed and informed consent was obtained. Prior to beginning the procedure, [place] Protocol was performed to confirm the patient's identity and the planned procedure. The fluoroscopy time has been recorded in the electronic medical record. Under fluoroscopic guidance, over a Bentson guidewire, the existing 18 Lao cope catheter was exchanged for a new 18 Fr Whiting catheter. The loop was formed in the common bile duct, above the ampulla, and contrast was injected to confirm appropriate positioning. This catheter was then attached to an accordion suction bag which provided enough suction to pull out mucin from the common bile duct and irrigation port for the patient injected 20 cc sterile saline once a day. At the end of the procedure, the catheter was connected to an accordion suction bag with a flush port. ESTIMATED BLOOD LOSS: Minimal CONDITION: Stable condition DISCHARGED TO: Recovery and then to outpatient recovery FINDINGS: Initial images showed a patent 18 Fr Whiting catheter with loop still in place in the dilated common bile duct. The final fluoroscopic image demonstrates appropriate positioning of a new 18 Lao cope loop within the common bile duct. IMPRESSION: Successful exchange of 18 Fr Whiting catheter in the common bile duct. PLAN: The patient should return once a month for routine external biliary drain which is to be reattached to an accordion suction bag with a flush port to be flushed with 20 cc sterile saline once a day. Electronically signed by: Nicolasa Moreira PA-C us Nicolasa [facility] IR PROCEDURES Fin al Result * Troponin T high-sensitivity 2-hour (12/15/2024 10:24 AM CDT) Trop T hs See Comment <=22 Comment: Interpretive Data For further hscTnT resources including the diagnostic algorithm and an aid in interpretation, copy and paste this link: [email or web address] Interpretive Data last revised 2020. Credited due to hemolysis; if immediate recollection is needed, enter an order for a standalone troponin. Do not reorder the troponin series. Trop T hs interp See Comment MARTHA HALL Comment:Credited due to dennis s hemolysis. If immediate recollection needed please put in a new order for a standalone Troponin. Blood 12/15/2024 10:2 4 AM CDT 12/15/2024 10:28 AM CDT us Cuauhtemoc Isaac MD LAB BLOOD ORDERABLES Final Result MARTHA HALL [address] [facility] Department [place] [address] * XR Chest 1 Vw Portable (If patient hemodynamically UNstable or UNable to ambulate) (12/15/2024 8:42AM CDT) Anatomical Region Laterality Modality Body, Chest N/A Computed Radiogr aphy 12/15/2024 8:54 AM CDT Narrative 12/15/2024 8:57 AM CDT EXAM DESCRIPTION: XR CHEST 1 VIEW REASON FOR STUDY: Shortness of breath Pt BIBEMS from home with complaint of shortness of breath for a couple of days. Pt normally wears 3L NC at baseline. Upon EMS arrival pt was 88% on RA, they placed pt on 4L NC and gave a duoneb in route. Upon arrival to ED pt is 92% RA however, placed pt on baseline 3L. AAOx4. Hx COPD, HTN BG 94 TECHNIQUE: Single radiographic view(s) of the chest. COMPARISON: Chest radiograph 10/22/2024 FINDINGS: The heart appears normal in size. There is improving right suprahilar opacity. Additional chronic bilateral pulmonary opacities could represent scarring. There is mild residual opacity along the right major fissure. There is right chest wall port with the tip projecting over the superior vena cava. IMPRESSION: Improving right suprahilar opacity. Right upper lobe opacity along the minor fissure which could represent pneumonia, edema or scarring. THIS IS AN ELECTRONICALLY VERIFIED FINAL REPORT 12/15/2024 8:57 AM - Electronically signed by Loi Frias M.D. JR T: Report ID: [id number] Reading Location: [id number] Procedure Note Loi Frias MD - 12/15/2024 EXAM DESCRIPTION: XR CHEST 1 VIEW REASON FOR STUDY: Shortness of breath Pt BIBEMS from home with complaint of shortness of breath for a couple of days. Pt normally wears 3L NC at baseline. Upon EMS arrival pt was 88% onRA, they placed pt on 4L NC and gave a duoneb in route. Upon arrival to ED ptis 92% RA however, placed pt on baseline 3L. AAOx4. Hx COPD, HTN BG94 TECHNIQUE: Single radiographic view(s) of the chest. COMPARISON: Chest radiograph 10/22/2024 FINDINGS: The heart appears normal in size. There is improving right suprahilar opacity. Additional chronic bilateral pulmonary opacitiescould represent scarring. There is mild residual opacity along the right major fissure. There is right chest wall port with the tip projecting over the superior vena cava. IMPRESSION: Improving right suprahilar opacity. Right upper lobe opacity along the minor fissure which could represent pneumonia, edema orscarring. THIS IS AN ELECTRONICALLY VERIFIED FINAL REPORT 12/15/2024 8:57 AM - Electronically signed by Loi Frias M.D. JR T: Report ID: [id number] Reading Location: [id number] us Cuauhtemoc Isaac MD IMG XR PROCEDURES Final Re sult * ECG 12 lead (12/15/2024 8:40 AM CDT) Ventricular Rate EKG/Min [address] [facility] Atrial Rate 97 BPM [facility] [place]-Interval (MSEC) [address] [facility] QRS-Interval (MSEC) [address] [facility] QT-Interval (MSEC) [address] [facility] QTc [address] [facility] P [place] [address] [facility] R [place] [address] [facility] T [place] [address] [facility] Diagnosis Normal sinus rhythm Normal ECG When compared with ECG of 06-AUG-2024 06:37, No significant change was found Confirmed by NEHA RUSSELL M.D. ([id number]) on 12/15/2024 10:52:21 AM [facility] 12/15/2024 8:40 AM CDT 12/15/2024 10:52 AM CDT us Cuauhtemoc Isaac MD ECG ORDERABLES Final Resu lt [facility] * [place] [facility] ILL/INJURED PATIENT INIT 30-74 MIN (12/15/2024 8:28 AM CDT) Narrative Cuauhtemoc Isaac MD - 12/15/2024 8:28 AM CDT Cuauhtemoc Isaac MD 12/15/2024 11:21 AM Critical Care Performed by: Cuauhtemoc Isaac MD Authorized by: Cuauhtemoc Isaac MD Critical care provider statement: As reflected in the history, physical exam, orders, notes, and/or MDM, I was personally present while the patient was critically ill and provided critical care services for 45 minutes, excluding time involved in separately billable procedures. Critical care was necessary to treat or prevent imminent or life-threatening deterioration of the following condition(s): COPD with acute exacerbation Critical care was time spent by me providing the following: continuous telemetry, continuous pulse oximetry, interpretation of bedside monitors, imaging, and arterial/venous lab draws and resuscitation with fluids initiation of steroids I provided emergent necessary critical care medicine services to this patient. I ordered and reviewed test results and/or imaging studies. I spent time discussing the management of this critically ill patient with consultants and the medical staff. I spent time discussing the management and therapeutic options for this critically ill patient with the patient themselves or with the appropriate designated surrogate decision-maker. I admitted this patient to a continuous cardiac monitored bed. us Cuauhtemoc Isaac MD IN CLINIC/BEDSIDE ORDERABL ES Final Result * (ABNORMAL) Troponin T high-sensitivity series (baseline, 2hr, 4hr, 6hr) (12/15/2024 8:27 AM CDT) Trop T hs 38(H) <=22 ng/L Comment: Interpretive Data For further hscTnT resources including the diagnostic algorithm and an aid in interpretation, copy and paste this link: [email or web address].testcatalog.org/show/[email or web address] Current Interpretive Data last revised 2020. Blood 12/15/2024 8:27 AM CDT 12/15/2024 8:29 AM CDT us Cuauhtemoc Isaac MD LAB BLOOD ORDERABLES Final Result Performing Organization Address City/State/ZIP Co wy Phone Number [facility] [address] [facility] Department [place] [address] * (ABNORMAL) eGFR (12/15/2024 8:27 AM CDT) [facility] eGFR 34(L) >=60 mL/min/1. 73 m2 Comment: Interpretive Data [...] interpretive data was last reviewed 2021. Blood 12/15/2024 8:27 AM CDT 12/15/2024 8:29 AM CDT Cuauhtemoc Isaac MD LAB BLOOD ORDERABLES Final Result [facility] [address] [facility] Department [place] [address] * (ABNORMAL) Differential, auto (12/15/2024 8:27 AM CDT) [facility] Neutrophil abs 2.34 1.50 - 6.50 K/cumm Imm gran abs 0.02 0.00 - 0.10 K/cumm [facility] Lymphocyte abs 0.53(L) 0.80 - 3.30 K/cumm [facility] Monocyte abs 0.45 0.20 - 0.80 K/cumm [facility] Eosinophil abs 0.18 0.00 - 0.50 K/cumm [facility] Basophil abs 0.01 0.00 - 0.10 K/cumm [facility] Neutrophil pct 66.3 % [facility] Comment: Interpretive Data Percent cell count reference ranges are not reported, since discordance with absolute values may lead to misinterpretation of CBC data. Current Interpretive Data was last revised on 2017. Imm gran pct 0.6 % [facility] Comment: Interpretive Data Percent cell count reference ranges are not reported, since discordance with absolute values may lead to misinterpretation of CBC data. Current Interpretive Data was last revised on 2017. Lymphocyte pct 15.0 % [facility] Comment: Interpretive Data Percent cell count reference ranges are not reported, since discordance with absolute values may lead to misinterpretation of CBC data. Current Interpretive Data was last revised on 2017. Monocyte pct 12.7 % [facility] Comment: Interpretive Data Percent cell count reference ranges are not reported, since discordance with absolute values may lead to misinterpretation of CBC data. Current Interpretive Data was last revised on 2017. Eosinophil pct 5.1 % [facility] Comment: Interpretive Data Percent cell count reference ranges are not reported, since discordance with absolute values may lead to misinterpretation of CBC data. Current Interpretive Data was last revised on 2017. Basophil pct 0.3 % [facility] Comment: Interpretive Data Percent cell count reference ranges are not reported, since discordance with absolute values may lead to misinterpretation of CBC data. Current Interpretive Data was last revised on 2017. Blood 12/15/2024 8:27 AM CDT 12/15/2024 8:29 AM CDT Cuauhtemoc Isaac MD LAB BLOOD ORDERABLES Final Result [facility] [address] [facility] Department [place] [address] * (ABNORMAL) CBC with auto differential (12/15/2024 8:27 AM CDT) WBC 3.53(L) 3.80 - 9.90 K/cumm Hgb 8.7(L) 13.0 - 17.5 g/dL MARTHA Hct 28.4(L) 38.9 - 50.3 % [facility] Plt 108(L) 150 - 400 K/cumm [facility] MPV 10.4 9.1 - 12.3 fL [facility] RBC 3.11(L) 4.30 - 5.80 M/cumm [facility] MCV 91.3 81.3 - 96.4 fL [facility] MCH 28.0 27.1 - 33.3 pg [facility] MCHC 30.6(L) 32.3 - 35.7 g/dL [facility] RDW CV 16.9(H) 11.1 - 14.9 % [facility] RDW SD 56.8(H) 35.7 - 48.1 fL [facility] NRBC abs 0.00 0.00 - 0.01 K/cumm [facility] Blood 12/15/2024 8:27 AM CDT 12/15/2024 8:29 AM CDT us Cuauhtemoc Isaac MD LAB BLOOD ORDERABLES Final Result Performing Organization Address City/State/[facility] Co de Phone Number [place] [phone] [facility] Department [place] [address] * (ABNORMAL) Comprehensive metabolic panel (12/15/2024 8:27 AM CDT) Sodium 141 135 - 145 mmol/L Potassium, pl 4.4 3.3 - 4.9 mmol/L [facility] Chloride 110 97 - 110 mmol/L [facility] CO2 18(L) 22 - 32 mmol/L [facility] Anion gap 13 2 - 15 mmol/L [facility] BUN 27(H) 6 - 25 mg/dL [facility] Creatinine 2.01(H) 0.80 - 1.30 mg/dL [facility] Glucose 98 70 - 199 mg/dL [facility] Comment: Interpretive Data Fasting glucose >/= 126 [...] interpretive data was last revised 2022. Calcium 8.9 8.5 - 10.3 mg/dL [facility] Bilirubin, total 1.1 0.1 - 1.2 mg/dL [facility] Protein, pl 7.0 6.5 - 8.5 g/dL [facility] Albumin 3.7 3.5 - 5.0 g/dL [facility] Alk phos 107 40 - 130 Units/L [facility] ALT 5(L) 7 - 55 Units/L [facility] AST 12 10 - 50 Units/L [facility] Blood 12/15/2024 8:27 AM CDT 12/15/2024 8:29 AM CDT us Cuauhtemoc Isaac MD LAB BLOOD ORDERABLES Final Result Performing Organization Address City/State/[facility] Co de Phone Number [facility] [address] [facility] Department [place] [address] * IR Change Biliary Drainage Catheter External Or Internal External (11/22/2024 11:28 AM CDT) Anatomical Region Laterality Modality Body N/A X-Ray Angiograph y 11/22/2024 3:48 PM CDT Impressions 11/22/2024 3:48 PM CDT 1. No significant distal CBD obstruction seen on the cholangiogram. Free passage of contrast out of the common bile duct into the duodenum. 2. Successful removal of the vast majority of mucin within the common bile duct using multiple techniques as described above. 3. Successful conversion of the internal/external biliary drain to an external biliary drain to be used as and irrigation port to help remove the mucin the gas produced in his common bile duct. PLAN: We will check in on the patient as an outpatient tomorrow over the phone. If this seems to be a more viable option, the patient should return once a month for routine external biliary drain which is to be reattached to an accordion suction bag with a flush port to be flushed with 20 cc sterile saline once a day. Electronically signed by: Herb Francis M.D. Narrative 11/22/2024 3:48 PM CDT EXAMINATION: CHOLANGIOGRAM THROUGH EXISTING TUBE AND BILIARY DRAIN EXCHANGE HISTORY/INDICATION: 73-year-old male known to our service for an IPMN of the common bile duct that initially presented as a biliary obstruction status post internal/external biliary drain placement on 02/01/2023. Since then, the patient has returned for numerous biliary drain exchanges and up sizes due to significant pericatheter leakage. He currently has been a 16 Lao Haroon internal/external biliary drain which is now leaking copiously into the skin. He has had previous attempted metal stent placement which did not succeed in preventing this leakage and was subsequently removed endoscopically. He was deemed not to be a surgical candidate due to her comorbidities and is now returning for further percutaneous management of his leaking biliary drain. ATTENDING PRESENCE: Herb Francis M.D., the attending radiologist was present from the beginning to the end of the procedure. SEDATION: The patient did not require conscious sedation for the procedure. TECHNIQUE: The risks, benefits and alternatives were discussed and informed consent was obtained. Prior to beginning the procedure, [place] Protocol was performed to confirm the patient's identity and the planned procedure. The fluoroscopy time has been recorded in the electronic medical record. The patient was positioned on the fluoroscopy table and a electrical instrument maker image obtained. The existing port and catheter was exchanged over a guidewire for a 10 Lao sheath and contrast was injected to side arm and multiple fluoroscopic images were obtained to perform the cholangiogram. This was performed to assess whether contrast passed freely around the new stent within the common bile duct. Given that contrast passed freely into the duodenum, and that the source of obstruction initially was related to the copious amounts of mucin and the common bile duct, it was felt that an internal/external drain would no longer be needed but rather a and irrigation port into the common bile duct would make more sense long-term. Therefore, a new 16 Lao Haroon catheter was used to irrigate the common bile duct with a combination of different suction apparatus including wall suction, accordion bag suction, and Hemovac suction provided by the OR. Of all 3 mechanisms, the accordion bag seen to have pulled mucin out of the common bile duct at best. Therefore, after fluoroscopically irrigating out most of the mucin within the common bile duct, the decision to leave an external biliary drain within the common bile duct has and irrigation port was made. Over a guidewire, an 18 Lao cope catheter was inserted into the common bile duct, above the ampulla, and contrast was injected to confirm appropriate positioning. This catheter was then attached to an accordion suction bag which provided enough suction to pull out mucin from the common bile duct with and irrigation port for the patient injected 20 cc sterile saline once a day. Hopefully with this new apparatus, the patient can maintain passage of bile freely into the duodenum without significant pericatheter leakage which seems to occur mainly as a result of the internal/external biliary drain migrating out and exposing sideholes. At the end of the procedure, the catheter was connected to an accordion suction bag with a flush port. ESTIMATED BLOOD LOSS: Minimal CONDITION: Stable condition DISCHARGED TO: Recovery and then to outpatient recovery FINDINGS: A electrical instrument maker image demonstrates many of the sideholes of the existing Haroon drain located outside of the liver and in the skin and outside of the skin. This is a recurrent issue with the patient despite best efforts to secure the drain with multiple sutures in the skin. This is a result of the patient's liver moving with breathing causing the drain to migrate out. Images from the cholangiogram over the guidewire demonstrate a large filling defect within the common bile duct representing mucin from the patient's known IPM N. There is brisk and free flow of contrast out of the common bile duct into the duodenum, indicating there is no significant distal CBD obstruction. Therefore, it was decided that the patient no longer requires and internal/external biliary drain. He requires mainly a source to remove the mucin that accumulates overtime within his common bile duct. Images throughout the procedure demonstrate successful removal of the new stent within the common bile duct using multiple mechanisms, the best of which is the accordion suction bag. The final fluoroscopic image demonstrates appropriate positioning of an 18 Lao cope loop within the common bile duct and may removal of the majority of the filling defects within the common bile duct. Procedure Note Herb Francis MD - 11/22/2024 EXAMINATION: CHOLANGIOGRAM THROUGH EXISTING TUBE AND BILIARY DRAIN EXCHANGE HISTORY/INDICATION: 73-year-old male known to our service for an IPMN of the common bile duct that initially presented as a biliary obstruction status post internal/external biliary drain placement on 02/01/2023. Since then, the patient has returned for numerous biliary drain exchanges and up sizes due to significant pericatheter leakage. He currently has been a 16 Lao Haroon internal/external biliary drain which is now leaking copiously into the skin. He has had previous attempted metal stent placement which did not succeed in preventing this leakage and was subsequently removed endoscopically. He was deemed not to be a surgical candidate due to her comorbidities and is now returning for further percutaneous management of his leaking biliary drain. ATTENDING PRESENCE: Herb Francis M.D., the attending radiologist was present from the beginning to the end of the procedure. SEDATION: The patient did not require conscious sedation for the procedure. TECHNIQUE: The risks, benefits and alternatives were discussed and informed consent was obtained. Prior to beginning the procedure, [place] Protocol was performed to confirm the patient's identity and the planned procedure. The fluoroscopy time has been recorded in the electronic medical record. The patient was positioned on the fluoroscopy table and a electrical instrument maker image obtained. The existing port and catheter was exchanged over a guidewire for a 10 Lao sheath and contrast was injected to side arm and multiple fluoroscopic images were obtained to perform the cholangiogram. This was performed to assess whether contrast passed freely around the new stent within the common bile duct. Given that contrast passed freely into the duodenum, and that the source of obstruction initially was related to the copious amounts of mucin and the common bile duct, it was felt that an internal/external drain would no longer be needed but rather a and irrigation port into the common bile duct would make more sense long-term. Therefore, a new 16 Lao Haroon catheter was used to irrigate the common bile duct with a combination of different suction apparatus including wall suction, accordion bag suction, and Hemovac suction provided by the OR. Of all 3 mechanisms, the accordion bag seen to have pulled mucin out of the common bile duct at best. Therefore, after fluoroscopically irrigating out most of the mucin within the common bile duct, the decision to leave an external biliary drain within the common bile duct has and irrigation port was made. Over a guidewire, an 18 Lao cope catheter was inserted into the common bile duct, above the ampulla, and contrast was injected to confirm appropriate positioning. This catheter was then attached to an accordion suction bag which provided enough suction to pull out mucin from the common bile duct with and irrigation port for the patient injected 20 cc sterile saline once a day. Hopefully with this new apparatus, the patient can maintain passage of bile freely into the duodenum without significant pericatheter leakage which seems to occur mainly as a result of the internal/external biliary drain migrating out and exposing sideholes. At the end of the procedure, the catheter was connected to an accordion suction bag with a flush port. ESTIMATED BLOOD LOSS: Minimal CONDITION: Stable condition DISCHARGED TO: Recovery and then to outpatient recovery FINDINGS: A electrical instrument maker image demonstrates many of the sideholes of the existing Haroon drain located outside of the liver and in the skin and outside of the skin. This is a recurrent issue with the patient despite best efforts to secure the drain with multiple sutures in the skin. This is a result of the patient's liver moving with breathing causing the drain to migrate out. Images from the cholangiogram over the guidewire demonstrate a large filling defect within the common bile duct representing mucin from the patient's known IPM N. There is brisk and free flow of contrast out of the common bile duct into the duodenum, indicating there is no significant distal CBD obstruction. Therefore, it was decided that the patient no longer requires and internal/external biliary drain. He requires mainly a source to remove the mucin that accumulates overtime within his common bile duct. Images throughout the procedure demonstrate successful removal of the new stent within the common bile duct using multiple mechanisms, the best of which is the accordion suction bag. The final fluoroscopic image demonstrates appropriate positioning of an 18 Lao cope loop within the common bile duct and may removal of the majority of the filling defects within the common bile duct. IMPRESSION: 1. No significant distal CBD obstruction seen on the cholangiogram. Free passage of contrast out of the common bile duct into the duodenum. 2. Successful removal of the vast majority of mucin within the common bile duct using multiple techniques as described above. 3. Successful conversion of the internal/external biliary drain to an external biliary drain to be used as and irrigation port to help remove the mucin the gas produced in his common bile duct. PLAN: We will check in on the patient as an outpatient tomorrow over the phone. If this seems to be a more viable option, the patient should return once a month for routine external biliary drain which is to be reattached to an accordion suction bag with a flush port to be flushed with 20 cc sterile saline once a day. Electronically signed by: Herb Francis M.D. Jennifer CEDILLO IMG IR PROCEDURES Final Result * (ABNORMAL) eGFR (11/15/2024 2:55 PM CDT) Pathologist [facility] eGFR 37(L) >=60 mL/min/1. 73 m2 Comment: [...] interpretive data was last reviewed 2021. Blood 11/15/2024 2:55 PM CDT 11/15/2024 3:14 PM CDT Gigi Jackman MD LAB BLOOD NIKHIL MEYERS Final Result [facility] [address] Department of Laboratories [place], [place] [id number] * (ABNORMAL) Comprehensive metabolic panel (11/15/2024 2:55 PM CDT) [facility] Sodium 141 135 - 145 mmol/L Potassium, pl 4.2 3.3 - 4.9 mmol/L [facility] Chloride 113(H) 97 - 110 mmol/L [facility] CO2 17(L) 22 - 32 mmol/L [facility] Anion gap 11 2 - 15 mmol/L [facility] BUN 41(H) 6 - 25 mg/dL [facility] Creatinine 1.89(H) 0.80 - 1.30 mg/dL [facility] Glucose 98 70 - 199 mg/dL [facility] Comment: Interpretive Data Fasting glucose >/= 126 [...] interpretive data was last revised 2022. Calcium 8.8 8.5 - 10.3 mg/dL [facility] [facility] Bilirubin, total 2.5(H) 0.1 - 1.2 mg/dL [facility] Protein, pl 6.3(L) 6.5 - 8.5 g/dL [facility] Albumin 2.6(L) 3.5 - 5.0 g/dL [facility] Alk phos 221(H) 40 - 130 Units/L [facility] ALT 21 7 - 55 Units/L [facility] AST 18 10 - 50 Units/L [facility] Blood 11/15/2024 2:55 PM CDT 11/15/2024 3:14 PM CDT Gigi Jackman MD LAB BLOOD ORDE LUIGI Final Result [facility] [address] [place] [address] * (ABNORMAL) eGFR (11/13/2024 8:30 AM CDT) eGFR 27(L) >=60 mL/min/1. 73 m2 Comment: Interpretive Data [...] interpretive data was last reviewed 2021. Blood 11/13/2024 8:30 AM CDT 11/13/2024 8:37 AM CDT us Cristiano Gallardo MD LAB BLOOD ORDERABLES Final Result [facility] [address] [place] [address] * (ABNORMAL) Differential, auto (11/13/2024 8:30 AM CDT) Neutrophil abs 5.33 1.50 - 6.50 K/cumm Imm gran abs 0.28(H) 0.00 - 0.10 K/cumm [facility] Lymphocyte abs 0.55(L) 0.80 - 3.30 K/cumm [facility] Monocyte abs 0.66 0.20 - 0.80 K/cumm [facility] Eosinophil abs 0.23 0.00 - 0.50 K/cumm [facility] Basophil abs 0.02 0.00 - 0.10 K/cumm [facility] Neutrophil pct 75.3 % [facility] Comment: Interpretive Data Percent cell count reference ranges are not reported, since discordance with absolute values may lead to misinterpretation of CBC data. Current Interpretive Data was last revised on 2017. Imm gran pct 4.0 % [facility] Comment: Interpretive Data Percent cell count reference ranges are not reported, since discordance with absolute values may lead to misinterpretation of CBC data. Current Interpretive Data was last revised on 2017. Lymphocyte pct 7.8 % [facility] Comment: Interpretive Data Percent cell count reference ranges are not reported, since discordance with absolute values may lead to misinterpretation of CBC data. Current Interpretive Data was last revised on 2017. Monocyte pct 9.3 % [facility] Comment: Interpretive Data Percent cell count reference ranges are not reported, since discordance with absolute values may lead to misinterpretation of CBC data. Current Interpretive Data was last revised on 2017. Eosinophil pct 3.3 % [facility] Comment: Interpretive Data Percent cell count reference ranges are not reported, since discordance with absolute values may lead to misinterpretation of CBC data. Current Interpretive Data was last revised on 2017. Basophil pct 0.3 % [facility] Comment: Interpretive Data Percent cell count reference ranges are not reported, since discordance with absolute values may lead to misinterpretation of CBC data. Current Interpretive Data was last revised on 2017. Blood 11/13/2024 8:30 AM CDT 11/13/2024 8:37 AM CDT us Cristiano Gallardo MD LAB BLOOD ORDERABLES Final Result [facility] [address] [place] [address] * (ABNORMAL) CBC with auto differential (11/13/2024 8:30 AM CDT) WBC 7.07 3.80 - 9.90 K/cumm Hgb 8.0(L) 13.0 - 17.5 g/dL [facility] Hct 25.9(L) 38.9 - 50.3 % [facility] Plt 237 150 - 400 K/cumm [facility] MPV 10.7 9.1 - 12.3 fL [facility] RBC 2.87(L) 4.30 - 5.80 M/cumm [facility] MCV 90.2 81.3 - 96.4 fL [facility] MCH 27.9 27.1 - 33.3 pg [facility] MCHC 30.9(L) 32.3 - 35.7 g/dL [facility] RDW CV 17.2(H) 11.1 - 14.9 % [facility] RDW SD 55.9(H) 35.7 - 48.1 fL [facility] NRBC abs 0.00 0.00 - 0.01 K/cumm [facility] Blood 11/13/2024 8:30 AM CDT 11/13/2024 8:37 AM CDT us Cristiano Gallardo MD LAB BLOOD ORDERABLES Final Result [facility] [address] [place] [address] * (ABNORMAL) Comprehensive metabolic panel (11/13/2024 8:30 AM CDT) Sodium 141 135 - 145 mmol/L Potassium, pl 4.3 3.3 - 4.9 mmol/L [facility] Chloride 111(H) 97 - 110 mmol/L [facility] CO2 16(L) 22 - 32 mmol/L [facility] Anion gap 14 2 - 15 mmol/L [facility] BUN 50(H) 6 - 25 mg/dL [facility] Creatinine 2.44(H) 0.80 - 1.30 mg/dL [facility] Glucose 108 70 - 199 mg/dL [facility] Comment: Interpretive Data Fasting glucose >/= 126 [...] interpretive data was last revised 2022. Calcium 8.7 8.5 - 10.3 mg/dL [facility] Bilirubin, total 3.3(H) 0.1 - 1.2 mg/dL [facility] Protein, pl 6.5 6.5 - 8.5 g/dL [facility] Albumin 2.7(L) 3.5 - 5.0 g/dL [facility] Alk phos 269(H) 40 - 130 Units/L [facility] ALT 26 7 - 55 Units/L [facility] AST 23 10 - 50 Units/L [facility] Blood 11/13/2024 8:30 AM CDT 11/13/2024 8:37 AM CDT Cristiano Gallardo MD LAB BLOOD ORDERABLES Final Result [facility] [address] [place] [address] * (ABNORMAL) Urinalysis reflex to microscopic and culture Urine (11/12/2024 4:03 PM CDT) Color, ur Yellow Yellow Clarity, ur Clear Clear [facility] Specific gravity, ur 1.018 1.003 - 1.030 [facility] pH, urine 6.0 [facility] Comment: Interpretive Data U rine pH is affected by diet, medications, systemic acid-base disturbances, and renal tubular function. pH may affect urinary stone formation. For example, urine pH below 6.0 may help reduce the tendency for calcium phosphate stones and pH greater than 6.0 may reduce the tendency for uric acid stone formation. Source: [facility] Current Interpretive Data was last revised on 2017 Protein, ur ql 1+(A) Negative [facility] Glucose, ur ql Negative Negative [facility] Ketones, ur Negative Negative [facility] Bilirubin, ur Negative Negative [facility] Blood, ur 3+(A) Negative [facility] Urobilinogen, ur <2.0 <2.0 mg/dL [facility] Nitrite, ur Negative Negative [facility] Leukocyte esterase, ur Negative Negative [facility] UA reflex comment Reflex to microscopic UA will be performed. [facility] Urine 11/12/2024 4:03 PM CDT 11/12/2024 4:03 PM CDT Narrative [facility] - 11/12/2024 4:10 PM CDT If patient unable to urinate, straight cath us Thor Herr MD LAB MICROBIOLOGY - GENERAL O RDERABLES Final Result Performing Organization Address [facility] Co de Phone Number [facility] [address] [facility] [place] [address] * (ABNORMAL) Urinalysis, microscopic only (11/12/2024 4:03 PM CDT) WBC, ur 6-10(A) 0 - 5 /HPF RBC, ur >50(A) 0 - 2 /HPF [facility] Epithelial cells, squamous, ur 1-5 0 - 5 /HPF [facility] Bacteria, ur Trace(A) [facility] Culture Reflex Comment Reflex conditions for urine culture (WBC >10) not met. [facility] Urine 11/12/2024 4:03 PM CDT 11/12/2024 4:07 PM CDT Salinas Pro MD LAB URINE ORDERABLES Final R esult Performing Organization Address [facility] Co de Phone Number [facility] [address] [place] [address] * [place] Fluoroscopy < 1 Hour (11/12/2024 2:50 PM CDT) Narrative [facility] - 11/12/2024 2:51 PM CDT The images from this study are not interpreted by Radiology. Please refer to the physician's procedure / OR operative note. us Cristiano Gallardo MD IMG FLUOROSCOPY PROCEDURES Final Result Performing Organization Address [place] [facility] Co de Phone Number [email or web address] * Small bowel enteroscopy (11/12/2024 2:28 PM CDT) Anatomical Region Laterality Modality Other Narrative Procedure Note Cristiano Gallardo MD - 11/12/2024 2:28 PM CDT ENDOSCOPY LAB Patient Name: Lee Cotto Procedure Date: 11/12/2024 2:28 PM Admit Type: Inpatient Room: [facility] Date of : 1950 Instrument Name: [id number] Gender: Male Note Status: Finalized Procedure: Small bowel enteroscopy Indications: Stent removal; 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 Request for endoscopic removal. Comorbidities See the other procedure note for documentation of comorbidities Providers: Cristiano Gallardo M.D. Referring MD: Jose Rivera M.D. Medicines: Monitored Anesthesia Care Complications: No immediate complications. Estimated Blood Loss: Estimated blood loss: none. Procedure: Pre-Anesthesia Assessment: - Prior to the procedure, a History and Physicalwas performed, and patient medications, allergies and sensitivities were reviewed. The patient'stolerance of previous anesthesia was reviewed. - Immediately prior to administration ofmedications, the patient was re-assessed for adequacy to receive sedatives. After obtaining informed consent, the endoscope was passed under direct vision. Throughout theprocedure, the patient's blood pressure, pulse, and oxygen saturations were monitored continuously. The Colonoscope was introduced through the mouth and advanced to the proximal jejunum. The small bowel enteroscopy was accomplished without difficulty.The patient tolerated the procedure well. Findings: The esophagus was normal. The stomach was normal. The examined duodenum was normal save for I/E plastic drain seen emerging from ampulla. A metal stent was seen in the proximal jejunum. Successfully removed using a rat-toothed forceps. The endoscope was reintroduced and only minimal mucosal trauma was noted. Impression: - Distal migration of metal biliary stent into the proximal jejunum. Successfully removed using a rat-toothed forceps. Recommendation: - Return patient to floor for ongoing care. - Observe patient's clinical course. - Drain management per IR. - In the unusual situation that you developabdominal, bleeding or other significant problems in the days following this procedure please call [phone] ask for my nurse, Vianey Benitez. After hours and evenings please call [phone] and speak to theGI fellow ship/rec/doc control. Please tell the fellow that Dr. Gallardo did your procedure and that you were instructed to have the fellow call me or thephysician covering for me to discuss the management of your condition. If you have an urgent problem, please goto the nearest emergency room and have the ER doctorcall my office during the day or [facility] transfer ([phone]) center after hours and weekends to arrange admission or transfer to our facility. Attending Participation: I personally performed the entire procedure. Electronically signed by Cristiano Gallardo MD Cristiano Gallardo M.D. 11/12/2024 2:57:14 PM This document was signed electronically. Number of Addenda: 0 Note Initiated On: 11/12/2024 2:28 PM Scope In: Scope Out: us Cristiano Gallardo MD ENDOSCOPY PROCEDURES Final Result * IR Change Biliary Drainage Catheter External Or Internal External (11/12/2024 11:37 AM CDT) Anatomical Region Laterality Modality Body N/A X-Ray Angiograph y 11/12/2024 3:58 PM CDT Impressions 11/12/2024 3:58 PM CDT Successful biliary catheter change as described above. External sideholes were positioned only in the bile ducts confluences/proximal CBD, to decrease the chance of clogging of the catheter with mucinous debris. Disposition of metallic stent, plan to send patient to GI lab for retrieval. This was explained to patient and his family, PLAN: The patient will return for interval biliary drainage catheter exchange in 2 weeks. Patient to flush catheter with 10 mL t.I.d. to decrease the chance of clogging. Capping of the catheter can be attempted tomorrow if bilirubin down decreases. Electronically signed by: Mik Hodge MD Narrative 11/12/2024 3:58 PM CDT EXAMINATION: BILIARY TUBE CHANGE HISTORY/INDICATION: 73-year-old male, with complex medical history, including I PMN, status post metallic and internal/external biliary stent placement by Dr. Francis on 10/26/2024 presented with cholestasis, and possibly stent retraction in the CT scan. And the previous evaluations multiple mucinous debris was noted within the biliary tree. ATTENDING PRESENCE: Mik Hodge MD, the attending radiologist was present from the beginning to the end of the procedure. SEDATION: Procedural sedation was administered under the attending physician's direction and continuous monitoring by a trained nurse specialist who was independent from those actually performing the procedure. Total monitored sedation time was 80 minutes. TECHNIQUE: The risks, benefits and alternatives were discussed and informed consent was obtained. Prior to beginning the procedure, [place] Protocol was performed to confirm the patient's [...] The catheter was then divided and a glide advantage wire was advanced through the catheter under fluoroscopic monitoring. 18-Lao sheath was placed. A 2nd guidewire was then placed in the proximal jejunum. Over this guidewire, a 14-Lao suction catheter was used to aspirate mucosal debris within the CBD stent and bile ducts. Repeat cholangiogram was performed. Subsequently over the guidewire, an 18-Lao Haroon internal/external catheter was advanced with its tip in the distal duodenum. Additional sideholes were created in the catheter, at the confluence of the bile ducts. During this process, the metallic stent was pushed distally to the distal duodenum. Limited contrast injection through the catheter under fluoroscopic monitoring confirmed appropriate position of the last side hole within the biliary tree. The catheter was secured in position using an Prolene suture and was connected to bag. A sterile dressing was applied. ESTIMATED BLOOD LOSS: Minimal. CONDITION: Stable DISCHARGED TO: Recovery and then GI lab for retrieval of the metallic stent FINDINGS: Initial cholangiogram images demonstrated retracted clogged internal/external catheter. Post procedure images demonstrated opacification of the bile ducts confluence/proximal common bile duct as well as the jejunum. The metallic stent was dispositioned to the distal duodenum. Procedure Note Mik Aviles MD - 11/12/2024 EXAMINATION: BILIARY TUBE CHANGE HISTORY/INDICATION: 73-year-old male, with complex medical history, including I PMN, status post metallic and internal/external biliary stent placement by Dr. Francis on 10/26/2024 presented with cholestasis, and possibly stent retraction in the CT scan. And the previous evaluations multiple mucinous debris was noted within the biliary tree. ATTENDING PRESENCE: Mik Hodge MD, the attending radiologist was present from the beginning to the end of the procedure. SEDATION: Procedural sedation was administered under the attending physician's direction and continuous monitoring by a trained nurse specialist who was independent from those actually performing the procedure. Total monitored sedation time was 80 minutes. TECHNIQUE: The risks, benefits and alternatives were discussed and informed consent was obtained. Prior to beginning the procedure, [place] Protocol was performed to confirm the patient's [...] The catheter was then divided and a glide advantage wire was advanced through the catheter under fluoroscopic monitoring. 18-Lao sheath was placed. A 2nd guidewire was then placed in the proximal jejunum. Over this guidewire, a 14-Lao suction catheter was used to aspirate mucosal debris within the CBD stent and bile ducts. Repeat cholangiogram was performed. Subsequently over the guidewire, an 18-Lao Haroon internal/external catheter was advanced with its tip in the distal duodenum. Additional sideholes were created in the catheter, at the confluence of the bile ducts. During this process, the metallic stent was pushed distally to the distal duodenum. Limited contrast injection through the catheter under fluoroscopic monitoring confirmed appropriate position of the last side hole within the biliary tree. The catheter was secured in position using an Prolene suture and was connected to bag. A sterile dressing was applied. ESTIMATED BLOOD LOSS: Minimal. CONDITION: Stable DISCHARGED TO: Recovery and then GI lab for retrieval of the metallic stent FINDINGS: Initial cholangiogram images demonstrated retracted clogged internal/external catheter. Post procedure images demonstrated opacification of the bile ducts confluence/proximal common bile duct as well as the jejunum. The metallic stent was dispositioned to the distal duodenum. IMPRESSION: Successful biliary catheter change as described above. External sideholes were positioned only in the bile ducts confluences/proximal CBD, to decrease the chance of clogging of the catheter with mucinous debris. Disposition of metallic stent, plan to send patient to GI lab for retrieval. This was explained to patient and his family, PLAN: The patient will return for interval biliary drainage catheter exchange in 2 weeks. Patient to flush catheter with 10 mL t.I.d. to decrease the chance of clogging. Capping of the catheter can be attempted tomorrow if bilirubin down decreases. Electronically signed by: Mik Hodge MD Dayo Larsen DO IMG IR PROCEDURES Alesia l Result * (ABNORMAL) eGFR (11/12/2024 9:11 AM CDT) eGFR 25(L) >=60 mL/min/1. 73 m2 Comment: Interpretive Data [...] interpretive data was last reviewed 2021. Blood 11/12/2024 9:11 AM CDT 11/12/2024 9:45 AM CDT us Nemo Blanco MD LAB BLOOD ORDERABLES Final Resu lt [facility] [address] [place] [address] * (ABNORMAL) Differential, auto (11/12/2024 9:11 AM CDT) Neutrophil abs 5.49 1.50 - 6.50 K/cumm Imm gran abs 0.41(H) 0.00 - 0.10 K/cumm [facility] Lymphocyte abs 0.56(L) 0.80 - 3.30 K/cumm [facility] Monocyte abs 0.79 0.20 - 0.80 K/cumm [facility] Eosinophil abs 0.17 0.00 - 0.50 K/cumm [facility] Basophil abs 0.03 0.00 - 0.10 K/cumm [facility] Neutrophil pct 73.7 % [facility] Comment: Interpretive Data Percent cell count reference ranges are not reported, since discordance with absolute values may lead to misinterpretation of CBC data. Current Interpretive Data was last revised on 2017. Imm gran pct 5.5 % [facility] Comment: Interpretive Data Percent cell count reference ranges are not reported, since discordance with absolute values may lead to misinterpretation of CBC data. Current Interpretive Data was last revised on 2017. Lymphocyte pct 7.5 % [facility] Comment: Interpretive Data Percent cell count reference ranges are not reported, since discordance with absolute values may lead to misinterpretation of CBC data. Current Interpretive Data was last revised on 2017. Monocyte pct 10.6 % [facility] Comment: Interpretive Data Percent cell count reference ranges are not reported, since discordance with absolute values may lead to misinterpretation of CBC data. Current Interpretive Data was last revised on 2017. Eosinophil pct 2.3 % [facility] Comment: Interpretive Data Percent cell count reference ranges are not reported, since discordance with absolute values may lead to misinterpretation of CBC data. Current Interpretive Data was last revised on 2017. Basophil pct 0.4 % [facility] Comment: Interpretive Data Percent cell count reference ranges are not reported, since discordance with absolute values may lead to misinterpretation of CBC data. Current Interpretive Data was last revised on 2017. Blood 11/12/2024 9:11 AM CDT 11/12/2024 9:45 AM CDT us Nemo Blanco MD LAB BLOOD ORDERABLES Final Resu lt [facility] [address] [place] [address] * (ABNORMAL) CBC with auto differential (11/12/2024 9:11 AM CDT) WBC 7.45 3.80 - 9.90 K/cumm Hgb 7.4(L) 13.0 - 17.5 g/dL [facility] Hct 23.9(L) 38.9 - 50.3 % [facility] Plt 257 150 - 400 K/cumm [facility] MPV 11.8 9.1 - 12.3 fL [facility] RBC 2.67(L) 4.30 - 5.80 M/cumm [facility] MCV 89.5 81.3 - 96.4 fL [facility] MCH 27.7 27.1 - 33.3 pg [facility] MCHC 31.0(L) 32.3 - 35.7 g/dL [facility] RDW CV 17.1(H) 11.1 - 14.9 % [facility] RDW SD 54.5(H) 35.7 - 48.1 fL [facility] NRBC abs 0.00 0.00 - 0.01 K/cumm [facility] Blood 11/12/2024 9:11 AM CDT 11/12/2024 9:45 AM CDT Nemo Blanco MD LAB BLOOD ORDERABLES Final Resu lt Performing Organization Address City/[facility]/ZIP Co de Phone Number [facility] [address] [place] [address] * Magnesium (11/12/2024 9:11 AM CDT) [facility] Magnesium 1.6 1.4 - 2.5 mg/dL Blood 11/12/2024 9:11 AM CDT 11/12/2024 9:45 AM CDT Nemo Blanco MD LAB BLOOD ORDERABLES Final Resu lt Performing Organization Address [place] [facility] Co de Phone Number [facility] [address] [employer] [place], [place] [id number] * (ABNORMAL) Comprehensive metabolic panel (11/12/2024 9:11 AM CDT) Pathologist [facility] Sodium 143 135 - 145 mmol/L Potassium, pl 4.6 3.3 - 4.9 mmol/L [facility] Chloride 111(H) 97 - 110 mmol/L [facility] CO2 18(L) 22 - 32 mmol/L [facility] Anion gap 14 2 - 15 mmol/L [facility] BUN 54(H) 6 - 25 mg/dL [facility] Creatinine 2.62(H) 0.80 - 1.30 mg/dL [facility] Glucose 81 70 - 199 mg/dL [facility] Comment: Interpretive Data Fasting glucose >/= 126 [...] interpretive data was last revised 2022. Calcium 9.0 8.5 - 10.3 mg/dL [facility] Bilirubin, total 3.8(H) 0.1 - 1.2 mg/dL [facility] Protein, pl 6.5 6.5 - 8.5 g/dL [facility] Albumin 2.5(L) 3.5 - 5.0 g/dL [facility] Alk phos 298(H) 40 - 130 Units/L [facility] ALT 26 7 - 55 Units/L [facility] AST 25 10 - 50 Units/L [facility] Blood 11/12/2024 9:11 AM CDT 11/12/2024 9:45 AM CDT Nemo Blanco MD LAB BLOOD ORDERABLES Final Resu lt Performing Organization Address City/[facility]/ZIP Co de Phone Number [facility] [address] [place] [address] * Transfuse RBC (11/11/2024 9:14 PM CDT) Blood Ivon Menjivar NP BLOOD TRANSFUSION ORDERA BLES Final Result Performing Organization Address [place] [facility] [facility]/ZIP Co de Phone Number [facility] [address] Department [employer] [place], [place] [id number] * CT Abdomen Pelvis W Contrast (11/11/2024 5:58 PM CDT) Anatomical Region Laterality Modality Body N/A Computed Tomogra phy 11/11/2024 5:48 PM CDT Impressions 11/12/2024 7:02 AM CDT 1. Spiculated opacities in the left lower lobe remain. CT chest follow-up in one month recommended 2. Ongoing severe intra and neck hepatic bile duct dilatation with no bile duct stent and percutaneous biliary catheter in place as detailed above. The biliary catheter does not extend beyond the duct stent in both has significant mass effect with caudal displacement of the duodenum. Gastroenterology/surgery consultation recommended 3. Stable tiny pancreatic cystic lesion, question sidebranch intraductal papillary mucinous neoplasm 4. Developing retroperitoneal lymphadenopathy For the purposes of quality assurance supervisor final, this study was initially interpreted by teleradiology. There is no significant discrepancy. Electronically signed by: Keri Valladares M.D. Narrative 11/12/2024 7:02 AM CDT EXAM: CT abdomen and pelvis with contrast HISTORY: Abdominal pain COMPARISON: 10/22/2024 FINDINGS: CT abdomen and pelvis was performed with 70 mL Optiray 350 intravenous contrast. There is persistent irregular nodular density in the left lower lobe. Spiculated opacity measures 2 cm in the posterior left lower lobe. There is no pleural or pericardial effusion. There is pneumobilia with ongoing severe intrahepatic bile duct dilatation. Transhepatic percutaneous drainage catheter extends into the duodenum and has resultant mass effect along the proximal aspect of the transverse duodenum with significant displacement of the duodenum caudal. A biliary stent is in place in the distal aspect of the common bile duct extending into the duodenum. The transhepatic biliary catheter does not extend beyond the biliary stent. There is severe common bile duct dilatation which is stable. There is no liver mass. There is a contracted gallbladder with resultant wall prominence. Tiny cystic lesion in the uncinate process is stable. Spleen is normal. Adrenal glands are normal. There are numerous cysts scattered in both kidneys. There is a 5 mm cortical medullary stone in the posterior aspect left kidney, stable. There are stable calcifications in the anterior aspect right kidney. There is no hydroureteronephrosis. Urinary bladder is normal. Prostate gland is enlarged. There is no acute bowel abnormality. There is no ascites. There are new prominent left periaortic lymph nodes measuring 12 mm short axis. There is no pelvic or inguinal lymphadenopathy. Very tiny follicle hernia contains fat. Inguinal regions are normal. There are scattered calcifications in the aorta with no aneurysm. There is normal perfusion of the portal venous system including the SMV and splenic vein. There are advanced degenerative changes at L5-S1 and left hip. There is no acute bone abnormality. 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 Patchy sclerosis in the pelvis is stable. Procedure Note Keri Valladares MD - 11/12/2024 EXAM: CT abdomen and pelvis with contrast HISTORY: Abdominal pain COMPARISON: 10/22/2024 FINDINGS: CT abdomen and pelvis was performed with 70 mL Optiray 350 intravenous contrast. There is persistent irregular nodular density in the left lower lobe. Spiculated opacity measures 2 cm in the posterior left lower lobe. There is no pleural or pericardial effusion. There is pneumobilia with ongoing severe intrahepatic bile duct dilatation. Transhepatic percutaneous drainage catheter extends into the duodenum and has resultant mass effect along the proximal aspect of the transverse duodenum with significant displacement of the duodenum caudal. A biliary stent is in place in the distal aspect of the common bile duct extending into the duodenum. The transhepatic biliary catheter does not extend beyond the biliary stent. There is severe common bile duct dilatation which is stable. There is no liver mass. There is a contracted gallbladder with resultant wall prominence. Tiny cystic lesion in the uncinate process is stable. Spleen is normal. Adrenal glands are normal. There are numerous cysts scattered in both kidneys. There is a 5 mm cortical medullary stone in the posterior aspect left kidney, stable. There are stable calcifications in the anterior aspect right kidney. There is no hydroureteronephrosis. Urinary bladder is normal. Prostate gland is enlarged. There is no acute bowel abnormality. There is no ascites. There are new prominent left periaortic lymph nodes measuring 12 mm short axis. There is no pelvic or inguinal lymphadenopathy. Very tiny follicle hernia contains fat. Inguinal regions are normal. There are scattered calcifications in the aorta with no aneurysm. There is normal perfusion of the portal venous system including the SMV and splenic vein. There are advanced degenerative changes at L5-S1 and left hip. There is no acute bone abnormality. 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 Patchy sclerosis in the pelvis is stable. IMPRESSION: 1. Spiculated opacities in the left lower lobe remain. CT chest follow-up in one month recommended 2. Ongoing severe intra and neck hepatic bile duct dilatation with no bile duct stent and percutaneous biliary catheter in place as detailed above. The biliary catheter does not extend beyond the duct stent in both has significant mass effect with caudal displacement of the duodenum. Gastroenterology/surgery consultation recommended 3. Stable tiny pancreatic cystic lesion, question sidebranch intraductal papillary mucinous neoplasm 4. Developing retroperitoneal lymphadenopathy For the purposes of quality assurance supervisor final, this study was initially interpreted by teleradiology. There is no significant discrepancy. Electronically signed by: Keri Valladares M.D. Ivon Menjivar NP IMG CT PROCEDURES Final Result * Type and screen (11/11/2024 4:28 PM CDT) Vanessa, indirect Negative ABO Rh A Positive [facility] Blood 11/11/2024 4:28 PM CDT 11/11/2024 4:42 PM CDT Narrative [facility] - 11/11/2024 5:18 PM CDT Has the patient had Daratumumab or Isatuximab in the past 6 months?->Unknown Ivon Menjivar NP LAB BLOOD BANK TEST ORDE RABLES Final Result Performing Organization Address City/[facility]/ZIP Co de Phone Number [facility] [address] [place] [address] * Prepare RBC: 1 Units (11/11/2024 4:05 PM CDT) Product code [id number] Unit Number [id number] [facility] Product Blood Type APOS [facility] Dispense Status PRESUMED TRANSFUSED [facility] Blood 11/11/2024 4:05 PM CDT Narrative [facility] - 11/12/2024 10:20 AM CDT Are special requirements needed? (All products are leukoreduced and CMV- safe)- >No Date required:-20241111 LRRBC # of [id number] Reasons:-Hgb <7 g/dL} Ivon Menjivar NP BLOOD BANK PRODUCT ORDER OBED Final Result [address] [place] [address] * Sepsis Lactate w/ Reflex (11/11/2024 2:39 PM CDT) Pathologist [facility] Sepsis Lactate 1.5 0.7 - 2.0 mmol/L Blood 11/11/2024 2:39 PM CDT 11/11/2024 2:44 PM CDT Thor Herr MD LAB BLOOD ORDERABLES Final R esult Performing Organization Address City/[facility]/ZIP Co de Phone Number [facility] [address] [place] [address] * (ABNORMAL) eGFR (11/11/2024 2:39 PM CDT) Pathologist [facility] eGFR 24(L) >=60 mL/min/1. 73 m2 Comment: Interpretive Data [...] interpretive data was last reviewed 2021. Blood 11/11/2024 2:39 PM CDT 11/11/2024 2:53 PM CDT Thor Herr MD LAB BLOOD ORDERABLES Final R esult [facility] [address] [place] [address] * (ABNORMAL) Differential, auto (11/11/2024 2:39 PM CDT) Neutrophil abs 6.20 1.50 - 6.50 K/cumm Imm gran abs 0.26(H) 0.00 - 0.10 K/cumm [facility] Lymphocyte abs 0.55(L) 0.80 - 3.30 K/cumm [facility] Monocyte abs 0.79 0.20 - 0.80 K/cumm [facility] Eosinophil abs 0.20 0.00 - 0.50 K/cumm [facility] Basophil abs 0.03 0.00 - 0.10 K/cumm [facility] Neutrophil pct 77.3 % [facility] Comment: Interpretive Data Percent cell count reference ranges are not reported, since discordance with absolute values may lead to misinterpretation of CBC data. Current Interpretive Data was last revised on 2017. Imm gran pct 3.2 % [facility] Comment: Interpretive Data Percent cell count reference ranges are not reported, since discordance with absolute values may lead to misinterpretation of CBC data. Current Interpretive Data was last revised on 2017. Lymphocyte pct 6.8 % [facility] Comment: Interpretive Data Percent cell count reference ranges are not reported, since discordance with absolute values may lead to misinterpretation of CBC data. Current Interpretive Data was last revised on 2017. Monocyte pct 9.8 % [facility] Comment: Interpretive Data Percent cell count reference ranges are not reported, since discordance with absolute values may lead to misinterpretation of CBC data. Current Interpretive Data was last revised on 2017. Eosinophil pct 2.5 % [facility] Comment: Interpretive Data Percent cell count reference ranges are not reported, since discordance with absolute values may lead to misinterpretation of CBC data. Current Interpretive Data was last revised on 2017. Basophil pct 0.4 % [facility] Comment: Interpretive Data Percent cell count reference ranges are not reported, since discordance with absolute values may lead to misinterpretation of CBC data. Current Interpretive Data was last revised on 2017. Blood 11/11/2024 2:39 PM CDT 11/11/2024 2:53 PM CDT Thor Herr MD LAB BLOOD ORDERABLES Final R esult Performing Organization Address [place] [facility] Co de Phone Number [facility] [address] [facility] [place] [address] * (ABNORMAL) CBC with auto differential (11/11/2024 2:39 PM CDT) Pathologist [facility] WBC 8.03 3.80 - 9.90 K/cumm Hgb 6.5(L) 13.0 - 17.5 g/dL [facility] Hct 20.8(L) 38.9 - 50.3 % [facility] Plt 289 150 - 400 K/cumm [facility] MPV 11.7 9.1 - 12.3 fL [facility] RBC 2.37(L) 4.30 - 5.80 M/cumm [facility] MCV 87.8 81.3 - 96.4 fL [facility] MCH 27.4 27.1 - 33.3 pg [facility] MCHC 31.3(L) 32.3 - 35.7 g/dL [facility] RDW CV 17.7(H) 11.1 - 14.9 % [facility] RDW SD 55.3(H) 35.7 - 48.1 fL [facility] NRBC abs 0.00 0.00 - 0.01 K/cumm [facility] Blood 11/11/2024 2:39 PM CDT 11/11/2024 2:53 PM CDT Thor Herr MD LAB BLOOD ORDERABLES Final R esult Performing Organization Address City/[facility]/ZIP Co de Phone Number [facility] [address] [facility] [place], [place] [id number] * (ABNORMAL) Comprehensive metabolic panel (11/11/2024 2:39 PM CDT) Pathologist [facility] Sodium 141 135 - 145 mmol/L Potassium, pl 4.3 3.3 - 4.9 mmol/L [facility] Chloride 107 97 - 110 mmol/L [facility] CO2 17(L) 22 - 32 mmol/L [facility] Anion gap 17(H) 2 - 15 mmol/L [facility] BUN 56(H) 6 - 25 mg/dL [facility] Creatinine 2.70(H) 0.80 - 1.30 mg/dL [facility] Glucose 107 70 - 199 mg/dL [facility] Comment: Interpretive Data Fasting glucose >/= 126 [...] interpretive data was last revised 2022. Calcium 8.8 8.5 - 10.3 mg/dL [facility] Bilirubin, total 4.5(H) 0.1 - 1.2 mg/dL [facility] Protein, pl 6.9 6.5 - 8.5 g/dL [facility] Albumin 3.0(L) 3.5 - 5.0 g/dL [facility] Alk phos 309(H) 40 - 130 Units/L [facility] ALT 30 7 - 55 Units/L [facility] AST 25 10 - 50 Units/L [facility] Blood 11/11/2024 2:39 PM CDT 11/11/2024 2:53 PM CDT us Thor Herr MD LAB BLOOD ORDERABLES Final R esult [facility] [address] [place] [address] * Interventional Radiology Follow-up (10/31/2024 3:36 PM CDT) Anatomical Region Laterality Modality N/A X-Ray Angiograph y 11/01/2024 7:30 AM CDT Impressions 11/01/2024 7:30 AM CDT The patient was seen in holding. [place] bag was removed. Two red caps placed to flush adapter. Drain was flushed with 20 ccs of normal saline, there was no resistance and no pericatheter leakage. Drain was left capped PLAN: Continue flushing with 20 ccs TID. Keep drain capped. Patient will return one month for drain irrigation and drain exchange Electronically signed by: Columba Ruiz 11/01/2024 7:30 AM CDT EXAMINATION: INTERVENTIONAL RADIOLOGY FOLLOW-UP VISIT HISTORY: 73 y/o male with history of COPD, small cell lung cancer s/p chemo and radiation, and intraductal mucinous carcinoma, s/p internal/external biliary drain placement who recently underwent successful placement of an internal metal biliary stent (placed on 10/26/[address] Francis) and irrigation, presents to IR department for drain evaluation. Patient has been flushing his drain with 20 ccs three times daily. Procedure Note Columba Garcia PA - 11/01/2024 EXAMINATION: INTERVENTIONAL RADIOLOGY FOLLOW-UP VISIT HISTORY: 73 y/o male with history of COPD, small cell lung cancer s/p chemo and radiation, and intraductal mucinous carcinoma, s/p internal/external biliary drain placement who recently underwent successful placement of an internal metal biliary stent (placed on 10/26/[address] Francis) and irrigation, presents to IR department for drain evaluation. Patient has been flushing his drain with 20 ccs three times daily. IMPRESSION: The patient was seen in holding. [place] bag was removed. Two red caps placed to flush adapter. Drain was flushed with 20 ccs of normal saline, there was no resistance and no pericatheter leakage. Drain was left capped PLAN: Continue flushing with 20 ccs TID. Keep drain capped. Patient will return one month for drain irrigation and drain exchange Electronically signed by: Columba Garcia us Columba CEDILLO IMG IR PROCEDURES Alesia l Result * (ABNORMAL) eGFR (10/28/2024 5:46 AM CDT) eGFR 39(L) >=60 mL/min/1. 73 m2 Comment: [...] interpretive data was last reviewed 2021. Blood 10/28/2024 5:46 AM CDT 10/28/2024 6:25 AM CDT us Jessee Fletcher MD LAB BLOOD ORDERABLES Final Resul t [facility] [address] [place] [address] * (ABNORMAL) Differential, auto (10/28/2024 5:46 AM CDT) [facility] Neutrophil abs 7.94(H) 1.50 - 6.50 K/cumm Imm gran abs 0.16(H) 0.00 - 0.10 K/cumm [facility] Lymphocyte abs 0.65(L) 0.80 - 3.30 K/cumm [facility] Monocyte abs 0.77 0.20 - 0.80 K/cumm [facility] Eosinophil abs 0.20 0.00 - 0.50 K/cumm [facility] Basophil abs 0.02 0.00 - 0.10 K/cumm [facility] Neutrophil pct 81.5 % [facility] Comment: Interpretive Data Percent cell count reference ranges are not reported, since discordance with absolute values may lead to misinterpretation of CBC data. Current Interpretive Data was last revised on 2017. Imm gran pct 1.6 % [facility] Comment: Interpretive Data Percent cell count reference ranges are not reported, since discordance with absolute values may lead to misinterpretation of CBC data. Current Interpretive Data was last revised on 2017. Lymphocyte pct 6.7 % [facility] Comment: Interpretive Data Percent cell count reference ranges are not reported, since discordance with absolute values may lead to misinterpretation of CBC data. Current Interpretive Data was last revised on 2017. Monocyte pct 7.9 % [facility] Comment: Interpretive Data Percent cell count reference ranges are not reported, since discordance with absolute values may lead to misinterpretation of CBC data. Current Interpretive Data was last revised on 2017. Eosinophil pct 2.1 % [facility] Comment: Interpretive Data Percent cell count reference ranges are not reported, since discordance with absolute values may lead to misinterpretation of CBC data. Current Interpretive Data was last revised on 2017. Basophil pct 0.2 % [facility] Comment: Interpretive Data Percent cell count reference ranges are not reported, since discordance with absolute values may lead to misinterpretation of CBC data. Current Interpretive Data was last revised on 2017. Blood 10/28/2024 5:46 AM CDT 10/28/2024 6:25 AM CDT us Jessee Fletcher MD LAB BLOOD ORDERABLES Final Resul t [facility] [address] Department [place] [address] * (ABNORMAL) CBC with auto differential (10/28/2024 5:46 AM CDT) WBC 9.74 3.80 - 9.90 K/cumm Hgb 7.2(L) 13.0 - 17.5 g/dL [facility] Hct 23.8(L) 38.9 - 50.3 % [facility] Plt 204 150 - 400 K/cumm [facility] MPV 10.4 9.1 - 12.3 fL [facility] RBC 2.59(L) 4.30 - 5.80 M/cumm [facility] MCV 91.9 81.3 - 96.4 fL [facility] MCH 27.8 27.1 - 33.3 pg [facility] MCHC 30.3(L) 32.3 - 35.7 g/dL [facility] RDW CV 15.8(H) 11.1 - 14.9 % [facility] RDW SD 53.4(H) 35.7 - 48.1 fL [facility] NRBC abs 0.00 0.00 - 0.01 K/cumm [facility] Blood 10/28/2024 5:46 AM CDT 10/28/2024 6:25 AM CDT us Jessee Fletcher MD LAB BLOOD ORDERABLES Final Resul t [facility] [address] [place] [address] * (ABNORMAL) Comprehensive metabolic panel (10/28/2024 5:46 AM CDT) Sodium 142 135 - 145 mmol/L Potassium, pl 3.5 3.3 - 4.9 mmol/L [facility] Chloride 110 97 - 110 mmol/L [facility] CO2 22 22 - 32 mmol/L [facility] Anion gap 10 2 - 15 mmol/L [facility] BUN 30(H) 6 - 25 mg/dL [facility] Creatinine 1.81(H) 0.80 - 1.30 mg/dL [facility] Glucose 81 70 - 199 mg/dL [facility] Comment: Interpretive Data Fasting glucose >/= 126 [...] interpretive data was last revised 2022. Calcium 8.8 8.5 - 10.3 mg/dL [facility] Bilirubin, total 1.5(H) 0.1 - 1.2 mg/dL [facility] Protein, pl 5.9(L) 6.5 - 8.5 g/dL [facility] Albumin 2.5(L) 3.5 - 5.0 g/dL [facility] Alk phos 90 40 - 130 Units/L [facility] ALT 9 7 - 55 Units/L [facility] AST 13 10 - 50 Units/L [facility] Blood 10/28/2024 5:46 AM CDT 10/28/2024 6:25 AM CDT Jessee Fletcher MD LAB BLOOD ORDERABLES Final Resul t Performing Organization Address City/[facility]/ZIP Co de Phone Number [facility] [address] [place] [address] * Aerobic culture and gram stain Sputum, induced Sputum (10/27/2024 6:52 AM CDT) Pathologist [facility] Direct Specimen Exam Stain: No squamous epithelial cells seen. No polymorphonuclear leukocytes seen. No organisms seen. Report Final Report: Light growth normal joyce [facility] Sputum, induced (Sputum) 10/27/2024 6:52 AM CDT 10/27/2024 7:18 AM CDT Jerald Maria MD LAB MICROBIOLOGY - GENERAL ORDER OBED Final Result Performing Organization Address City/[facility]/ZIP Co de Phone Number [facility] [address] [place] [address] * (ABNORMAL) Urinalysis reflex to microscopic and culture Urine, clean voided (10/27/2024 6:37 AM CDT) Color, ur Yellow Yellow Clarity, ur Clear Clear [facility] Specific gravity, ur 1.018 1.003 - 1.030 [facility] pH, urine 6.0 [facility] Comment: Interpretive Data U rine pH is affected by diet, medications, systemic acid-base disturbances, and renal tubular function. pH may affect urinary stone formation. For example, urine pH below 6.0 may help reduce the tendency for calcium phosphate stones and pH greater than 6.0 may reduce the tendency for uric acid stone formation. Source: [facility] Current Interpretive Data was last revised on 2017 Protein, ur ql 1+(A) Negative [facility] Glucose, ur ql Negative Negative [facility] Ketones, ur Negative Negative [facility] Bilirubin, ur Negative Negative [facility] Blood, ur Negative Negative [facility] Urobilinogen, ur <2.0 <2.0 mg/dL [facility] Nitrite, ur Negative Negative [facility] Leukocyte esterase, ur Negative Negative [facility] UA reflex comment Reflex to microscopic UA will be performed. [facility] Urine, clean voided 10/27/2024 6:37 AM CDT 10/27/2024 6:37 AM CDT Jerald Maria MD LAB MICROBIOLOGY - GENERAL ORDER OBED Final Result Performing Organization Address [place] [facility] de Phone Number [facility] [address] [place] [address] * Sodium, urine, random (10/27/2024 6:37 AM CDT) Sodium, ur 87 mmol/L Comment: Interpretive Data No reference range established. Current interpretive data was last revised 2018. Urine 10/27/2024 6:37 AM CDT 10/27/2024 6:37 AM CDT us Jerald Maria MD LAB URINE ORDERABLES Final Resul t Performing Organization Address [facility] Co de Phone Number [facility] [address] Department [employer] [place], [place] [id number] * Creatinine, urine, random (10/27/2024 6:37 AM CDT) Creatinine Ur 82.8 mg/dL Comment: Interpretive Data No reference range established. Current interpretive data was last revised 2018. Urine 10/27/2024 6:37 AM CDT 10/27/2024 6:37 AM CDT Jerald Maria MD LAB URINE ORDERABLES Final Resul t Performing Organization Address [facility] de Phone Number [facility] [address] [place] [address] * (ABNORMAL) Urinalysis, microscopic only (10/27/2024 6:37 AM CDT) WBC, ur 0-5 0 - 5 /HPF RBC, ur 0-2 0 - 2 /HPF [facility] Epithelial cells, squamous, ur 1-5 0 - 5 /HPF [facility] Mucous, ur Present(A) [facility] Culture Reflex Comment Reflex conditions for urine culture (WBC >10) not met. [facility] Urine, clean voided 10/27/2024 6:37 AM CDT 10/27/2024 6:37 AM CDT Jerald Maria MD LAB URINE ORDERABLES Final Resul t Performing Organization Address [facility] de Phone Number [facility] [address] [place] [address] * Strep pneumoniae antigen, urine Urine (10/27/2024 6:33 AM CDT) S. pneumoniae Ag Negative Negative Comment: Interpretive [...] Data was last revised on 2022 Urine 10/27/2024 6:33 AM CDT 10/27/2024 6:44 AM CDT us Jerald Maria MD LAB MICROBIOLOGY - GENERAL ORDER OBED Final Result Performing Organization Address City/State/[facility] Co de Phone Number [facility] [address] [place] [address] * Legionella antigen Urine (10/27/2024 6:33 AM CDT) Legionella Ag Negative Negative Comment: Interpretive Data This test detects only Legionella pneumophila serogroup 1 antigen. Current interpretive data was last revised on 2019. Urine 10/27/2024 6:33 AM CDT 10/27/2024 6:44 AM CDT Jerald Maria MD LAB MICROBIOLOGY - GENERAL ORDER OBED Final Result Performing Organization Address [facility] Co de Phone Number [facility] [address] [place] [address] * (ABNORMAL) eGFR (10/27/2024 6:11 AM CDT) eGFR 42(L) >=60 mL/min/1. 73 m2 Comment: Interpretive Data [...] interpretive data was last reviewed 2021. Blood 10/27/2024 6:11 AM CDT 10/27/2024 6:24 AM CDT us Jessee Fletcher MD LAB BLOOD ORDERABLES Final Resul t [facility] [address] [place] [address] * (ABNORMAL) Differential, auto (10/27/2024 6:11 AM CDT) Neutrophil abs 7.14(H) 1.50 - 6.50 K/cumm Imm gran abs 0.16(H) 0.00 - 0.10 K/cumm [facility] Lymphocyte abs 0.50(L) 0.80 - 3.30 K/cumm [facility] Monocyte abs 0.71 0.20 - 0.80 K/cumm [facility] Eosinophil abs 0.21 0.00 - 0.50 K/cumm [facility] Basophil abs 0.03 0.00 - 0.10 K/cumm [facility] Neutrophil pct 81.7 % [facility] Comment: Interpretive Data Percent cell count reference ranges are not reported, since discordance with absolute values may lead to misinterpretation of CBC data. Current Interpretive Data was last revised on 2017. Imm gran pct 1.8 % [facility] Comment: Interpretive Data Percent cell count reference ranges are not reported, since discordance with absolute values may lead to misinterpretation of CBC data. Current Interpretive Data was last revised on 2017. Lymphocyte pct 5.7 % [facility] Comment: Interpretive Data Percent cell count reference ranges are not reported, since discordance with absolute values may lead to misinterpretation of CBC data. Current Interpretive Data was last revised on 2017. Monocyte pct 8.1 % [facility] Comment: Interpretive Data Percent cell count reference ranges are not reported, since discordance with absolute values may lead to misinterpretation of CBC data. Current Interpretive Data was last revised on 2017. Eosinophil pct 2.4 % [facility] Comment: Interpretive Data Percent cell count reference ranges are not reported, since discordance with absolute values may lead to misinterpretation of CBC data. Current Interpretive Data was last revised on 2017. Basophil pct 0.3 % [facility] Comment: Interpretive Data Percent cell count reference ranges are not reported, since discordance with absolute values may lead to misinterpretation of CBC data. Current Interpretive Data was last revised on 2017. Blood 10/27/2024 6:11 AM CDT 10/27/2024 6:24 AM CDT Jessee Fletcher MD LAB BLOOD ORDERABLES Final Resul t [facility] [address] [place] [address] * (ABNORMAL) CBC with auto differential (10/27/2024 6:11 AM CDT) WBC 8.75 3.80 - 9.90 K/cumm Hgb 7.6(L) 13.0 - 17.5 g/dL [facility] Hct 24.4(L) 38.9 - 50.3 % [facility] Plt 202 150 - 400 K/cumm [facility] MPV 10.9 9.1 - 12.3 fL [facility] RBC 2.74(L) 4.30 - 5.80 M/cumm [facility] MCV 89.1 81.3 - 96.4 fL [facility] MCH 27.7 27.1 - 33.3 pg [facility] MCHC 31.1(L) 32.3 - 35.7 g/dL [facility] RDW CV 15.9(H) 11.1 - 14.9 % [facility] RDW SD 51.7(H) 35.7 - 48.1 fL [facility] NRBC abs 0.00 0.00 - 0.01 K/cumm [facility] Blood 10/27/2024 6:11 AM CDT 10/27/2024 6:24 AM CDT Jessee Fletcher MD LAB BLOOD ORDERABLES Final Resul t [facility] [address] [place] [address] * (ABNORMAL) Comprehensive metabolic panel (10/27/2024 6:11 AM CDT) Sodium 145 135 - 145 mmol/L Potassium, pl 3.4 3.3 - 4.9 mmol/L [facility] Chloride 108 97 - 110 mmol/L [facility] CO2 24 22 - 32 mmol/L [facility] Anion gap 13 2 - 15 mmol/L [facility] BUN 28(H) 6 - 25 mg/dL [facility] Creatinine 1.70(H) 0.80 - 1.30 mg/dL [facility] Glucose 84 70 - 199 mg/dL [facility] Comment: Interpretive Data Fasting glucose >/= 126 [...] interpretive data was last revised 2022. Calcium 8.8 8.5 - 10.3 mg/dL [facility] Bilirubin, total 1.9(H) 0.1 - 1.2 mg/dL [facility] Protein, pl 6.0(L) 6.5 - 8.5 g/dL [facility] Albumin 2.7(L) 3.5 - 5.0 g/dL [facility] Alk phos 91 40 - 130 Units/L [facility] ALT 8 7 - 55 Units/L [facility] AST 16 10 - 50 Units/L [facility] Blood 10/27/2024 6:11 AM CDT 10/27/2024 6:24 AM CDT Jessee Fletcher MD LAB BLOOD ORDERABLES Final Resul t Performing Organization Address [facility] Co de Phone Number [facility] [address] [facility] [place], [place] [id number] * POCT glucose (10/26/2024 11:34 PM CDT) Glucose, POC 104 70 - 199 mg/dL Comment: For Glucose values <35 mg/dl when Hematocrit is >60 mg/dl,the test may not accurately detect significant hypoglycemia,and testing in the Laboratory should be considered if clinically indicated. POC Performer [id number] [facility] Blood 10/26/2024 11:3 4 PM CDT 10/26/2024 11:34 PM CDT Kian Turcios MD LAB POCT ORDERABLES - DEVICE Fin al Result Performing Organization Address [facility] de Phone Number [facility] [address] [place] [address] * POCT glucose (10/26/2024 8:29 PM CDT) Glucose, POC 106 70 - 199 mg/dL Comment: For Glucose values <35 mg/dl when Hematocrit is >60 mg/dl,the test may not accurately detect significant hypoglycemia,and testing in the Laboratory should be considered if clinically indicated. POC Performer [id number] [facility] Blood 10/26/2024 8:29 PM CDT 10/26/2024 8:29 PM CDT Kian Turcios MD LAB POCT ORDERABLES - DEVICE Fin al Result Performing Organization Address [facility] Co de Phone Number [facility] [address] [facility] [place], [place] [id number] * IR Change Biliary Drainage Catheter External Or Internal External (10/26/2024 3:07 PM CDT) Anatomical Region Laterality Modality Body N/A X-Ray Angiograph y 10/26/2024 4:21 PM CDT Impressions 10/26/2024 4:21 PM CDT 1. The sidehole of the existing biliary drain had pulled back, into the tract, likely explaining the copious leakage around the catheter. The drain was exchange and repositioned deeper into the biliary tree to avoid this. 2. Copious amounts of mucin within the common bile duct much of which was clear today with irrigation. The dilation the common bile duct reduced after this. Due to his known IPMN, the existing biliary drain will need to be used as and irrigation port 3. Successful internal metal stent placement to facilitate clearance of much of the mucous within the common bile duct. PLAN: The patient should undergo maintenance internal/external biliary drains through the existing metal stent. Copious irrigation should be performed at each exchanged to help remove much of the collecting mucous within the common bile duct. Hopefully with 20 cc sterile saline 3 times a day irrigations through the catheter, the mucous build-up will be minimized. We will continue to follow patient while in house as well as as an outpatient. Electronically signed by: Herb Francis M.D. Narrative 10/26/2024 4:21 PM CDT EXAMINATION: CONVERSION OF AN EXTERNAL BILIARY CATHETER TO AN INTERNAL-EXTERNAL BILIARY CATHETER HISTORY/INDICATION: 73-year-old male with IPM N within the bile duct, lifelong internal/external biliary drain, not felt to be a surgical candidate due to significant comorbidities, on 3 L nasal cannula, with copious leakage around the existing 18 Lao [place] internal/external biliary drain status post multiple exchanges over the past 2 years, requiring exchanges every month. The patient reports that there continues to be significant leakage within a week after each exchange. He is quite set up with this, and after further discussion, the decision was made to place an internal metal stent and irrigate/remove much of the mucinous material within the common bile duct. ATTENDING PRESENCE: Herb Francis M.D., the attending radiologist was present from the beginning to the end of the procedure. SEDATION: This procedure was performed under MAC anesthesia given the planned for significant manipulation within the biliary system. TECHNIQUE: The risks, benefits and alternatives were discussed and informed consent was obtained. Prior to beginning the procedure, [place] Protocol was performed to confirm the patient's [...] 1% was used for local anesthesia. The patient's existing external biliary catheter was then cut and a Amplatz wire was advanced through the catheter under fluoroscopic monitoring. A 10 Lao sheath was placed and a cholangiogram performed. A catheter and guidewire were advanced through the biliary system, across the obstruction and into the bowel. The catheter was advanced over the wire into the bowel where contrast injection was performed to confirm catheter tip positioning. A stiff wire was placed into the bowel through the catheter Then, the ampulla was predilated with a 6 mm high-pressure balloon. This was followed by copious irrigation of the common bile duct as well as balloon maceration with a Apple balloon. A 10Fr 30cm sheath was advanced into the common bile duct, and large chunks of mucus were aspirated. Repeat contrast injections demonstrate improvement, but not complete clearance of much of the filling defects within the common bile duct representing large mucous plugs. Then, over the guidewire, a 12 mm x 68 mm lifestar self-expandable biliary stent was deployed across the ampulla. This was performed to help reflux intestinal contents to hopefully digest some of the mucinous material within the common bile duct as well, in addition to providing another outlet for mucus or bile to exit out of the biliary tree. The stent was postdilated using a 12 mm high-pressure balloon. Then, over the guidewire, a new 18 Lao Haroon drain was advanced after placing multiple sideholes and it and advanced through the existing metal stent and into the duodenum. The catheter was irrigated copiously and larger chunks of mucus were also removed through this catheter. The catheter was then connected to a gravity bag and sutured in place with 2 sets of 0 silk. ESTIMATED BLOOD LOSS: Minimal. CONDITION: Stable DISCHARGED TO: Inpatient unit FINDINGS: Images from the cholangiogram demonstrate a significant amount of filling defects within the common bile duct, representing the patient's known mucus from his IPMN. The last sidehole of the existing biliary drain was within the tract, explain some of the copious leakage around the existing catheter. After clearing a significant amount of the new stent within the common bile duct, a 12 mm internal metal stent was deployed to help mixed the intestinal fluoroscopy with the mucous to hopefully to chemically digestive of the mucous as well as provide another way for bile to exit out of the common bile duct. Further removal of the material within the common bile duct was achieved using a 10 Lao sheath for aspiration. Then, over the guidewire, a new 18 Lao biliary drain was placed to provide stable access and irrigation. 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 The patient reports that there continues to be significant leakage within a week after each exchange. He is quite set up with this, and after further discussion, the decision was made to place an internal metal stent and irrigate/remove much of the mucinous material within the common bile duct. ATTENDING PRESENCE: Herb Francis M.D., the attending radiologist was present from the beginning to the end of the procedure. SEDATION: This procedure was performed under MAC anesthesia given the planned for significant manipulation within the biliary system. TECHNIQUE: The risks, benefits and alternatives were discussed and informed consent was obtained. Prior to beginning the procedure, [place] Protocol was performed to confirm the patient's [...] 1% was used for local anesthesia. The patient's existing external biliary catheter was then cut and a Amplatz wire was advanced through the catheter under fluoroscopic monitoring. A 10 Lao sheath was placed and a cholangiogram performed. A catheter and guidewire were advanced through the biliary system, across the obstruction and into the bowel. The catheter was advanced over the wire into the bowel where contrast injection was performed to confirm catheter tip positioning. A stiff wire was placed into the bowel through the catheter Then, the ampulla was predilated with a 6 mm high-pressure balloon. This was followed by copious irrigation of the common bile duct as well as balloon maceration with a Apple balloon. A 10Fr 30cm sheath was advanced into the common bile duct, and large chunks of mucus were aspirated. Repeat contrast injections demonstrate improvement, but not complete clearance of much of the filling defects within the common bile duct representing large mucous plugs. Then, over the guidewire, a 12 mm x 68 mm lifestar self-expandable biliary stent was deployed across the ampulla. This was performed to help reflux intestinal contents to hopefully digest some of the mucinous material within the common bile duct as well, in addition to providing another outlet for mucus or bile to exit out of the biliary tree. The stent was postdilated using a 12 mm high-pressure balloon. Then, over the guidewire, a new 18 Lao Haroon drain was advanced after placing multiple sideholes and it and advanced through the existing metal stent and into the duodenum. The catheter was irrigated copiously and larger chunks of mucus were also removed through this catheter. The catheter was then connected to a gravity bag and sutured in place with 2 sets of 0 silk. ESTIMATED BLOOD LOSS: Minimal. CONDITION: Stable DISCHARGED TO: Inpatient unit FINDINGS: Images from the cholangiogram demonstrate a significant amount of filling defects within the common bile duct, representing the patient's known mucus from his IPMN. The last sidehole of the existing biliary drain was within the tract, explain some of the copious leakage around the existing catheter. After clearing a significant amount of the new stent within the common bile duct, a 12 mm internal metal stent was deployed to help mixed the intestinal fluoroscopy with the mucous to hopefully to chemically digestive of the mucous as well as provide another way for bile to exit out of the common bile duct. Further removal of the material within the common bile duct was achieved using a 10 Lao sheath for aspiration. Then, over the guidewire, a new 18 Lao biliary drain was placed to provide stable access and irrigation. IMPRESSION: 1. The sidehole of the existing biliary drain had pulled back, into the tract, likely explaining the copious leakage around the catheter. The drain was exchange and repositioned deeper into the biliary tree to avoid this. 2. Copious amounts of mucin within the common bile duct much of which was clear today with irrigation. The dilation the common bile duct reduced after this. Due to his known IPMN, the existing biliary drain will need to be used as and irrigation port 3. Successful internal metal stent placement to facilitate clearance of much of the mucous within the common bile duct. PLAN: The patient should undergo maintenance internal/external biliary drains through the existing metal stent. Copious irrigation should be performed at each exchanged to help remove much of the collecting mucous within the common bile duct. Hopefully with 20 cc sterile saline 3 times a day irrigations through the catheter, the mucous build-up will be minimized. We will continue to follow patient while in house as well as as an outpatient. Electronically signed by: Herb Francis M.D. us Herb Francis MD IMG IR PROCEDURES Final Result * (ABNORMAL) eGFR (10/26/2024 5:16 AM CDT) eGFR 41(L) >=60 mL/min/1. 73 [...] interpretive data was last reviewed 2021. Blood 10/26/2024 5:16 AM CDT 10/26/2024 5:41 AM CDT us Jessee Fletcher MD LAB BLOOD ORDERABLES Final Resul t [facility] [address] [place] [address] * (ABNORMAL) Differential, auto (10/26/2024 5:16 AM CDT) Neutrophil abs 6.90(H) 1.50 - 6.50 K/cumm Imm gran abs 0.25(H) 0.00 - 0.10 K/cumm [facility] Lymphocyte abs 0.49(L) 0.80 - 3.30 K/cumm [facility] Monocyte abs 0.73 0.20 - 0.80 K/cumm [facility] Eosinophil abs 0.28 0.00 - 0.50 K/cumm [facility] Basophil abs 0.03 0.00 - 0.10 K/cumm [facility] Neutrophil pct 79.6 % [facility] Comment: Interpretive Data Percent cell count reference ranges are not reported, since discordance with absolute values may lead to misinterpretation of CBC data. Current Interpretive Data was last revised on 2017. Imm gran pct 2.9 % [facility] Comment: Interpretive Data Percent cell count reference ranges are not reported, since discordance with absolute values may lead to misinterpretation of CBC data. Current Interpretive Data was last revised on 2017. Lymphocyte pct 5.6 % [facility] Comment: Interpretive Data Percent cell count reference ranges are not reported, since discordance with absolute values may lead to misinterpretation of CBC data. Current Interpretive Data was last revised on 2017. Monocyte pct 8.4 % [facility] Comment: Interpretive Data Percent cell count reference ranges are not reported, since discordance with absolute values may lead to misinterpretation of CBC data. Current Interpretive Data was last revised on 2017. Eosinophil pct 3.2 % [facility] Comment: Interpretive Data Percent cell count reference ranges are not reported, since discordance with absolute values may lead to misinterpretation of CBC data. Current Interpretive Data was last revised on 2017. Basophil pct 0.3 % [facility] Comment: Interpretive Data Percent cell count reference ranges are not reported, since discordance with absolute values may lead to misinterpretation of CBC data. Current Interpretive Data was last revised on 2017. Blood 10/26/2024 5:16 AM CDT 10/26/2024 5:41 AM CDT Jessee Fletcher MD LAB BLOOD ORDERABLES Final Resul t Performing Organization Address [facility]/ZIP Co de Phone Number [facility] [address] [place] [address] * (ABNORMAL) CBC with auto differential (10/26/2024 5:16 AM CDT) WBC 8.68 3.80 - 9.90 K/cumm Hgb 7.3(L) 13.0 - 17.5 g/dL [facility] Hct 22.6(L) 38.9 - 50.3 % [facility] Plt 208 150 - 400 K/cumm [facility] MPV 11.0 9.1 - 12.3 fL [facility] RBC 2.62(L) 4.30 - 5.80 M/cumm [facility] MCV 86.3 81.3 - 96.4 fL [facility] MCH 27.9 27.1 - 33.3 pg [facility] MCHC 32.3 32.3 - 35.7 g/dL [facility] RDW CV 15.6(H) 11.1 - 14.9 % [facility] RDW SD 49.1(H) 35.7 - 48.1 fL [facility] NRBC abs 0.00 0.00 - 0.01 K/cumm [facility] Blood 10/26/2024 5:16 AM CDT 10/26/2024 5:41 AM CDT Jessee Fletcher MD LAB BLOOD ORDERABLES Final Resul t [facility] [address] [place] [address] * (ABNORMAL) Comprehensive metabolic panel (10/26/2024 5:16 AM CDT) Sodium 143 135 - 145 mmol/L Potassium, pl 3.1(L) 3.3 - 4.9 mmol/L [facility] Chloride 108 97 - 110 mmol/L [facility] CO2 26 22 - 32 mmol/L [facility] Anion gap 9 2 - 15 mmol/L [facility] BUN 30(H) 6 - 25 mg/dL [facility] Creatinine 1.73(H) 0.80 - 1.30 mg/dL [facility] Glucose 116 70 - 199 mg/dL [facility] Comment: Interpretive Data Fasting glucose >/= 126 [...] 2022. Calcium 8.5 8.5 - 10.3 mg/dL [facility] Bilirubin, total 2.1(H) 0.1 - 1.2 mg/dL [facility] Protein, pl 5.6(L) 6.5 - 8.5 g/dL [facility] Albumin 2.4(L) 3.5 - 5.0 g/dL [facility] Alk phos 92 40 - 130 Units/L [facility] ALT 8 7 - 55 Units/L [facility] AST 12 10 - 50 Units/L [facility] Blood 10/26/2024 5:16 AM CDT 10/26/2024 5:41 AM CDT us Jessee Fletcher MD LAB BLOOD ORDERABLES Final Resul t [facility] [address] Department [place] [address] * (ABNORMAL) eGFR (10/25/2024 12:26 AM CDT) eGFR 35(L) >=60 mL/min/1. 73 m2 Comment: Interpretive Data [...] interpretive data was last reviewed 2021. Blood 10/25/2024 12:2 6 AM CDT 10/25/2024 12:40 AM CDT us Jessee Fletcher MD LAB BLOOD ORDERABLES Final Resul t [facility] [address] [place] [address] * (ABNORMAL) Differential, auto (10/25/2024 12:26 AM CDT) Pathologist [facility] Neutrophil abs 7.19(H) 1.50 - 6.50 K/cumm Imm gran abs 0.21(H) 0.00 - 0.10 K/cumm [facility] Lymphocyte abs 0.40(L) 0.80 - 3.30 K/cumm [facility] REHABILITATION Monocyte abs 1.08(H) 0.20 - 0.80 K/cumm [facility] Eosinophil abs 0.18 0.00 - 0.50 K/cumm [facility] Basophil abs 0.02 0.00 - 0.10 K/cumm [facility] Neutrophil pct 79.2 % [facility] Comment: Interpretive Data Percent cell count reference ranges are not reported, since discordance with absolute values may lead to misinterpretation of CBC data. Current Interpretive Data was last revised on 2017. Imm gran pct 2.3 % [facility] Comment: Interpretive Data Percent cell count reference ranges are not reported, since discordance with absolute values may lead to misinterpretation of CBC data. Current Interpretive Data was last revised on 2017. Lymphocyte pct 4.4 % [facility] Comment: Interpretive Data Percent cell count reference ranges are not reported, since discordance with absolute values may lead to misinterpretation of CBC data. Current Interpretive Data was last revised on 2017. Monocyte pct 11.9 % [facility] Comment: Interpretive Data Percent cell count reference ranges are not reported, since discordance with absolute values may lead to misinterpretation of CBC data. Current Interpretive Data was last revised on 2017. Eosinophil pct 2.0 % [facility] Comment: Interpretive Data Percent cell count reference ranges are not reported, since discordance with absolute values may lead to misinterpretation of CBC data. Current Interpretive Data was last revised on 2017. Basophil pct 0.2 % [facility] Comment: Interpretive Data Percent cell count reference ranges are not reported, since discordance with absolute values may lead to misinterpretation of CBC data. Current Interpretive Data was last revised on 2017. Blood 10/25/2024 12:2 6 AM CDT 10/25/2024 12:40 AM CDT us Jessee Fletcher MD LAB BLOOD ORDERABLES Final Resul t [facility] [address] Department [place] [address] * (ABNORMAL) CBC with auto differential (10/25/2024 12:26 AM CDT) WBC 9.08 3.80 - 9.90 K/cumm Hgb 7.2(L) 13.0 - 17.5 g/dL [facility] Hct 23.0(L) 38.9 - 50.3 % [facility] Plt 193 150 - 400 K/cumm [facility] MPV 9.7 9.1 - 12.3 fL [facility] RBC 2.60(L) 4.30 - 5.80 M/cumm [facility] MCV 88.5 81.3 - 96.4 fL [facility] MCH 27.7 27.1 - 33.3 pg [facility] MCHC 31.3(L) 32.3 - 35.7 g/dL [facility] RDW CV 15.6(H) 11.1 - 14.9 % [facility] RDW SD 50.3(H) 35.7 - 48.1 fL [facility] NRBC abs 0.00 0.00 - 0.01 K/cumm [facility] Blood 10/25/2024 12:2 6 AM CDT 10/25/2024 12:40 AM CDT us Jessee Fletcher MD LAB BLOOD ORDERABLES Final Resul t [facility] [address] [place] [address] * (ABNORMAL) Comprehensive metabolic panel (10/25/2024 12:26 AM CDT) Sodium 145 135 - 145 mmol/L Potassium, pl 3.7 3.3 - 4.9 mmol/L [facility] Chloride 115(H) 97 - 110 mmol/L [facility] CO2 17(L) 22 - 32 mmol/L [facility] Anion gap 13 2 - 15 mmol/L [facility] BUN 41(H) 6 - 25 mg/dL [facility] Creatinine 1.98(H) 0.80 - 1.30 mg/dL [facility] Glucose 110 70 - 199 mg/dL [facility] Comment: Interpretive Data Fasting glucose >/= 126 [...] interpretive data was last revised 2022. Calcium 8.7 8.5 - 10.3 mg/dL [facility] Bilirubin, total 2.5(H) 0.1 - 1.2 mg/dL [facility] Protein, pl 5.7(L) 6.5 - 8.5 g/dL [facility] Albumin 2.5(L) 3.5 - 5.0 g/dL [facility] Alk phos 98 40 - 130 Units/L [facility] ALT 11 7 - 55 Units/L [facility] AST 8(L) 10 - 50 Units/L [facility] Blood 10/25/2024 12:2 6 AM CDT 10/25/2024 12:40 AM CDT us Jessee Fletcher MD LAB BLOOD ORDERABLES Final Resul t Performing Organization Address City/[facility]/ZIP Co de Phone Number [facility] [address] [place] [address] * Iron profile - Add on lab test (10/24/2024 2:17 PM CDT) Pathologist [facility] Acceptable Yes Blood 10/24/2024 2:17 PM CDT 10/24/2024 2:17 PM CDT Narrative [facility] - 10/24/2024 2:18 PM CDT Name of Test->Iron profile us Tori Pierre MD LAB BLOOD ORDERABLES F inal Result [facility] [address] Department [place] [address] * (ABNORMAL) eGFR (10/24/2024 4:21 AM CDT) Pathologist [facility] eGFR 30(L) >=60 mL/min/1. 73 m2 Comment: Interpretive Data [...] interpretive data was last reviewed 2021. Blood 10/24/2024 4:21 AM CDT 10/24/2024 4:31 AM CDT us Jessee Fletcher MD LAB BLOOD ORDERABLES Final Resul t [facility] [address] [place] [address] * (ABNORMAL) Differential, auto (10/24/2024 4:21 AM CDT) Neutrophil abs 7.04(H) 1.50 - 6.50 K/cumm Imm gran abs 0.26(H) 0.00 - 0.10 K/cumm [facility] Lymphocyte abs 0.47(L) 0.80 - 3.30 K/cumm [facility] Monocyte abs 1.07(H) 0.20 - 0.80 K/cumm [facility] Eosinophil abs 0.09 0.00 - 0.50 K/cumm [facility] Basophil abs 0.02 0.00 - 0.10 K/cumm [facility] Neutrophil pct 78.6 % [facility] Comment: Interpretive Data Percent cell count reference ranges are not reported, since discordance with absolute values may lead to misinterpretation of CBC data. Current Interpretive Data was last revised on 2017. Imm gran pct 2.9 % [facility] Comment: Interpretive Data Percent cell count reference ranges are not reported, since discordance with absolute values may lead to misinterpretation of CBC data. Current Interpretive Data was last revised on 2017. Lymphocyte pct 5.3 % [facility] Comment: Interpretive Data Percent cell count reference ranges are not reported, since discordance with absolute values may lead to misinterpretation of CBC data. Current Interpretive Data was last revised on 2017. Monocyte pct 12.0 % [facility] Comment: Interpretive Data Percent cell count reference ranges are not reported, since discordance with absolute values may lead to misinterpretation of CBC data. Current Interpretive Data was last revised on 2017. Eosinophil pct 1.0 % [facility] Comment: Interpretive Data Percent cell count reference ranges are not reported, since discordance with absolute values may lead to misinterpretation of CBC data. Current Interpretive Data was last revised on 2017. Basophil pct 0.2 % [facility] Comment: Interpretive Data Percent cell count reference ranges are not reported, since discordance with absolute values may lead to misinterpretation of CBC data. Current Interpretive Data was last revised on 2017. Blood 10/24/2024 4:21 AM CDT 10/24/2024 4:31 AM CDT us Jessee Fletcher MD LAB BLOOD ORDERABLES Final Resul t Performing Organization Address City/[facility] Co wy Phone Number [facility] [address] [place] [address] * (ABNORMAL) Iron profile w/ IBC (10/24/2024 4:21 AM CDT) Iron 22(L) 50 - 150 mcg/dL TIBC 124(L) 250 - 400 mcg/dL [facility] Transferrin saturation 18(L) 20 - 50 % [facility] Blood 10/24/2024 4:21 AM CDT 10/24/2024 4:31 AM CDT us Kian Turcios MD LAB BLOOD ORDERABLES Final Resul t Performing Organization Address City/State/[facility] de Phone Number [facility] [address] [place] [address] * (ABNORMAL) CBC with auto differential (10/24/2024 4:21 AM CDT) [facility] WBC 8.95 3.80 - 9.90 K/cumm Hgb 7.0(L) 13.0 - 17.5 g/dL [facility] Hct 22.7(L) 38.9 - 50.3 % [facility] Plt 200 150 - 400 K/cumm [facility] MPV 10.6 9.1 - 12.3 fL [facility] RBC 2.49(L) 4.30 - 5.80 M/cumm [facility] MCV 91.2 81.3 - 96.4 fL [facility] MCH 28.1 27.1 - 33.3 pg [facility] MCHC 30.8(L) 32.3 - 35.7 g/dL [facility] RDW CV 15.6(H) 11.1 - 14.9 % [facility] RDW SD 51.8(H) 35.7 - 48.1 fL [facility] NRBC abs 0.00 0.00 - 0.01 K/cumm [facility] Blood 10/24/2024 4:21 AM CDT 10/24/2024 4:31 AM CDT Jessee Fletcher MD LAB BLOOD ORDERABLES Final Resul t Performing Organization Address [place] [facility] Co de Phone Number [facility] [address] [place] [address] * (ABNORMAL) Comprehensive metabolic panel (10/24/2024 4:21 AM CDT) [facility] Sodium 144 135 - 145 mmol/L Potassium, pl 4.0 3.3 - 4.9 mmol/L [facility] Chloride 115(H) 97 - 110 mmol/L [facility] CO2 15(L) 22 - 32 mmol/L [facility] Anion gap 14 2 - 15 mmol/L [facility] BUN 51(H) 6 - 25 mg/dL [facility] Creatinine 2.24(H) 0.80 - 1.30 mg/dL [facility] Glucose 95 70 - 199 mg/dL [facility] Comment: Interpretive Data Fasting glucose >/= 126 [...] interpretive data was last revised 2022. Calcium 8.7 8.5 - 10.3 mg/dL [facility] Bilirubin, total 3.6(H) 0.1 - 1.2 mg/dL [facility] Protein, pl 5.5(L) 6.5 - 8.5 g/dL [facility] Albumin 2.4(L) 3.5 - 5.0 g/dL [facility] Alk phos 102 40 - 130 Units/L [facility] ALT 13 7 - 55 Units/L [facility] AST 12 10 - 50 Units/L [facility] Blood 10/24/2024 4:21 AM CDT 10/24/2024 4:31 AM CDT us Jessee Fletcher MD LAB BLOOD ORDERABLES Final Resul t [facility] [address] Department of Laboratories [place], [place] [id number] * (ABNORMAL) Hemoglobin and hematocrit (10/23/2024 9:18 PM CDT) Hgb 7.4(L) 13.0 - 17.5 g/dL Hct 23.6(L) 38.9 - 50.3 % [facility] Blood 10/23/2024 9:18 PM CDT 10/23/2024 9:26 PM CDT Jessee Fletcher MD LAB BLOOD ORDERABLES Final Resul t [facility] [address] [facility] [place] [address] * Aerobic culture and gram stain Sputum (10/23/2024 6:30 PM CDT) Direct Specimen Exam Stain: Poor quality sputum Report Final Report: Culture not performed. Please reorder and recollect if clinically indicated. [facility] Sputum 10/23/2024 6:30 PM CDT 10/23/2024 7:31 PM CDT Jessee Fletcher MD LAB MICROBIOLOGY - GENERAL ORDER OBED Final Result Performing Organization Address City/[facility] Co de Phone Number [facility] [address] [place] [address] * TRANSTHORACIC ECHO (TTE) COMPLETE W DOPPLER/CF W CONTRAST (10/23/2024 5:07 PM CDT) EF Mod BP 60 % CONS SCIMAGE Anatomical Region Laterality Modality Ultrasound 10/23/2024 4:11 PM CDT Narrative 10/23/2024 5:33 PM CDT [facility] [address] [address] ECHOCARDIOGRAM Patient Name: LEE COTTO : 1950 (73y 10m) Gender: M Study Date: 10/23/2024 04:11:24 PM Ht(Inch): 67 Wt(Lb): 154.1 BSA: 1.82 Cloth Booker: MEJIA Location: [id number] Order Provider: JESSEE FLETCHER BMI: 24.13 BP: 130/67 Ref Provider: JESSEE FLETCHER - PROCEDURES: Echocardiographic Report: Transthoracic Echocardiogram with 2D, M-Mode, Spectral and Color Flow Doppler examination and administration of intravenous contrast. INDICATIONS: Pericardial effusion. MEASUREMENTS: 2D/MM Value Range Doppler Value Range IVSd 2D 0.87 cm [ 0.60 - 1.00 ] AV Peak Sudhakar 1.82 m/s [ 1.00 - 1.70 ] LVIDd 2D 5.13 cm [ 4.20 - 5.80 ] AV Peak PG 13.3 mmHg LVIDs 2D 3.54 cm [ 2.50 - 4.00 ] AV Mean PG 7.0 mmHg LVPWd 2D 1.05 cm [ 0.60 - 1.00 ] AV VTI 29.7 cm EF Mod BP 60 % [ 52 - 72 ] VTI 2.6 cm2 LA Dimension 2D 3.42 cm [ 3.00 - 4.00 ] LVOT Peak Sudhakar 1.30 m/s [ 0.70 - 1.10 ] AoR Diam 2D 3.81 cm [ 3.10 - 3.70 ] LVOT Diam 2.0 cm AoR Diam 2D Index 2.09 LVOT Peak PG 6.7 mmHg TAPSE 2.84 cm [ 1.71 - 5.00 ] LVOT VTI 24.8 cm MV Peak PG 4.8 mmHg MV Mean PG 2.9 mmHg MV E Peak Sudhakar 0.7 m/s [ 0.6 - 1.3 ] MV A Peak Sudhakar 1.1 m/s [ 1.0 - 1.2 ] MV PHT 106.6 ms [ 20.0 - 100.0 ] MV Decel Time 127.1 ms [ 104.0 - 258.0 ] MVA PHT 2.1 ms MV E/A Ratio 0.6 TR Peak Sudhakar 3.2 m/s [ 1.0 - 2.8 ] TR Peak PG 41 mmHg RVSP 55.5 mmHg [ 10.0 - 36.0 ] RA Pressure 15.0 mmHg PV Peak Sudhakar 1.3 m/s [ 0.4 - 0.8 ] PV Peak PG 6.6 mmHg Lat E` Sudhakar 0.10 m/s [ 0.10 - 0.15 ] Sept E' Sudhakar 0.08 m/s [ 0.08 - 0.15 ] E/E` 7.00 RV S' 0.12 m/s 2D/MM Value Range Doppler Value Range - FINDINGS: Study Quality: Technically difficult study. Contrast was employed for LV opacification and endocardial border enhancement. BP: Blood pressure: 130/67 mmHg. Left Ventricle: Ejection Fraction (Simpsons) is measured at 60 %. Right Ventricle: Normal right ventricular systolic function. Normal right ventricular size. Left Atrium: The left atrium is normal in size. Right Atrium: The right atrium is normal in size. Atrial Septum: Normal appearing atrial septum. Mitral Valve: Normal mitral valve appearance and function. Aortic Valve: Aortic cusps appear mildly calcified. Tricuspid Valve: Normal appearance of the tricuspid leaflets. Mild tricuspid regurgitation. Normal right ventricular systolic pressure. Pulmonic Valve: Grossly normal appearing pulmonic valve. Pericardium: Small pericardial effusion. Aortic Root and Aorta: Normal caliber aortic root. Aortic Arch: Normal caliber aortic arch. IVC: Normal appearance of the inferior vena cava. CONCLUSIONS: 1. Ejection Fraction (Simpsons) is measured at 60 %. 2. Small pericardial effusion. Electronically Signed By: Deangelo Funez MD, [facility] 10/23/2024 5:32:36 PM CDT Procedure Note Deangelo Funez MD - 10/23/2024 [place] [id number] [place] [address] ECHOCARDIOGRAM Patient Name: LEE COTTO : 1950 (73y 10m) Gender: M Study Date: 10/23/2024 04:11:24 PM Ht(Inch): 67 Wt(Lb): 154.1 BSA: 1.82 Cloth Booker: MEJIA Location: [address] Order Provider: JESSEE FLETCHER BMI: 24.13 BP: 130/67 Ref Provider: JESSEE FLETCHER - PROCEDURES: Echocardiographic Report: Transthoracic Echocardiogram with 2D, M-Mode,Spectral and Color Flow Doppler examination and administration of intravenouscontrast. INDICATIONS: Pericardial effusion. MEASUREMENTS: 2D/MM Value Range Doppler ValueRange IVSd 2D 0.87 cm [ 0.60 - 1.00 ] AV Peak Sudhakar 1.82m/s [ 1.00 - 1.70 ] LVIDd 2D 5.13 cm [ 4.20 - 5.80 ] AV Peak PG 13.3mmHg LVIDs 2D 3.54 cm [ 2.50 - 4.00 ] AV Mean PG 7.0mmHg LVPWd 2D 1.05 cm [ 0.60 - 1.00 ] AV VTI 29.7cm EF Mod BP 60 % [ 52 - 72 ] VTI 2.6cm2 LA Dimension 2D 3.42 cm [ 3.00 - 4.00 ] LVOT Peak Sudhakar 1.30m/s [ 0.70 - 1.10 ] AoR Diam 2D 3.81 cm [ 3.10 - 3.70 ] LVOT Diam 2.0cm AoR Diam 2D Index 2.09 LVOT Peak PG 6.7mmHg TAPSE 2.84 cm [ 1.71 - 5.00 ] LVOT VTI 24.8cm MV Peak PG 4.8 mmHg MV Mean PG 2.9 mmHg MV E Peak Sudhakar 0.7 m/s [ 0.6 - 1.3 ] MV A Peak Sudhakar 1.1 m/s [ 1.0 - 1.2 ] MV PHT 106.6 ms [ 20.0 - 100.0 ] MV Decel Time 127.1 ms [ 104.0 - 258.0 ] MVA PHT 2.1 ms MV E/A Ratio 0.6 TR Peak Sudhakar 3.2 m/s [ 1.0 - 2.8 ] TR Peak PG 41 mmHg RVSP 55.5 mmHg [ 10.0 - 36.0 ] RA Pressure 15.0 mmHg PV Peak Sudhakar 1.3 m/s [ 0.4 - 0.8 ] PV Peak PG 6.6 mmHg Lat E` Sudhakar 0.10 m/s [ 0.10 - 0.15 ] Sept E' Sudhakar 0.08 m/s [ 0.08 - 0.15 ] E/E` 7.00 RV S' 0.12 m/s 2D/MM Value Range Doppler ValueRange - FINDINGS: Study Quality: Technically difficult study. Contrast was employed for LVopacification and endocardial border enhancement. BP: Blood pressure: 130/67 mmHg. Left Ventricle: Ejection Fraction (Simpsons) is measured at 60 %. Right Ventricle: Normal right ventricular systolic function. Normal rightventricular size. Left Atrium: The left atrium is normal in size. Right Atrium: The right atrium is normal in size. Atrial Septum: Normal appearing atrial septum. Mitral Valve: Normal mitral valve appearance and function. Aortic Valve: Aortic cusps appear mildly calcified. Tricuspid Valve: Normal appearance of the tricuspid leaflets. Mildtricuspid regurgitation. Normal right ventricular systolic pressure. Pulmonic Valve: Grossly normal appearing pulmonic valve. Pericardium: Small pericardial effusion. Aortic Root and Aorta: Normal caliber aortic root. Aortic Arch: Normal caliber aortic arch. IVC: Normal appearance of the inferior vena cava. CONCLUSIONS: 1. Ejection Fraction (Simpsons) is measured at 60 %. 2. Small pericardial effusion. Electronically Signed By: Deangelo Funez MD, [facility] 10/23/2024 5:32:36 PM CDT Jessee Fletcher MD CV ECHO PROCEDURES Final Result * CT Chest WO Contrast (10/23/2024 3:37 PM CDT) Anatomical Region Laterality Modality Body N/A Computed Tomogra phy 10/23/2024 6:15 PM CDT Impressions 10/23/2024 6:15 PM CDT 1. Increased consolidation in the right lung apex with nodular consolidation and septal line thickening in the posterior right upper lobe favored to represent infectious pneumonia. Interval improvement in previously noted left apical consolidation with residual groundglass and nodularity which may represent evolving pneumonia. Recommend follow-up CT in 8-12 weeks after treatment to ensure resolution. 2. Likely aspiration changes in the left lower lobe. Decreased density of spiculated nodule in the right middle lobe, indeterminate. Recommend attention on recommended follow-up imaging. 3. Findings the upper abdomen including biliary duct dilatation with drain in place are better assessed on yesterday's dedicated CT abdomen pelvis. Electronically signed by: Bipin Sin M.D. Narrative 10/23/2024 6:15 PM CDT EXAMINATION: CT CHEST WITHOUT CONTRAST HISTORY: Pneumonia, complication suspected TECHNIQUE: Multiple CT images of the chest were performed according to the standard protocol without intravenous contrast. COMPARISON: 08/06/2024 FINDINGS: Right internal jugular port catheter terminates in the superior vena cava. Apical predominant emphysematous changes. Interval increase in consolidation in the right lung apex. Previously noted consolidation in the left lung apex is improved with residual groundglass and tree-in-bud nodularity in this region. There is septal line thickening and nodular consolidation in the posterior right upper lobe (series 2, image 39). Trace bilateral pleural effusions. No pneumothorax. Decreased density of subcentimeter nodule in the right middle lobe (series 2, image 70). Layering debris within the left mainstem bronchus. Likely aspiration changes in the left lung base with mucus plugging and atelectasis. There is no adenopathy throughout the thorax. Unchanged aneurysmal dilatation of the ascending aorta measuring up to 4.6 cm. Heart size is normal. Moderate pericardial effusion. There is calcified coronary atherosclerosis. Findings in the upper abdomen are better assessed on recent CT abdomen pelvis. This includes biliary ductal dilatation with percutaneous biliary drain, pneumobilia, renal cysts There is no acute fracture or suspicious osseous lesion. Procedure Note Bipin Sin MD - 10/23/2024 EXAMINATION: CT CHEST WITHOUT CONTRAST HISTORY: Pneumonia, complication suspected TECHNIQUE: Multiple CT images of the chest were performed according to the standard protocol without intravenous contrast. COMPARISON: 08/06/2024 FINDINGS: Right internal jugular port catheter terminates in the superior vena cava. Apical predominant emphysematous changes. Interval increase in consolidation in the right lung apex. Previously noted consolidation in the left lung apex is improved with residual groundglass and tree-in-bud nodularity in this region. There is septal line thickening and nodular consolidation in the posterior right upper lobe (series 2, image 39). Trace bilateral pleural effusions. No pneumothorax. Decreased density of subcentimeter nodule in the right middle lobe (series 2, image 70). Layering debris within the left mainstem bronchus. Likely aspiration changes in the left lung base with mucus plugging and atelectasis. There is no adenopathy throughout the thorax. Unchanged aneurysmal dilatation of the ascending aorta measuring up to 4.6 cm. Heart size is normal. Moderate pericardial effusion. There is calcified coronary atherosclerosis. Findings in the upper abdomen are better assessed on recent CT abdomen pelvis. This includes biliary ductal dilatation with percutaneous biliary drain, pneumobilia, renal cysts There is no acute fracture or suspicious osseous lesion. IMPRESSION: 1. Increased consolidation in the right lung apex with nodular consolidation and septal line thickening in the posterior right upper lobe favored to represent infectious pneumonia. Interval improvement in previously noted left apical consolidation with residual groundglass and nodularity which may represent evolving pneumonia. Recommend follow-up CT in 8-12 weeks after treatment to ensure resolution. 2. Likely aspiration changes in the left lower lobe. Decreased density of spiculated nodule in the right middle lobe, indeterminate. Recommend attention on recommended follow-up imaging. 3. Findings the upper abdomen including biliary duct dilatation with drain in place are better assessed on yesterday's dedicated CT abdomen pelvis. Electronically signed by: Bipin Sin M.D. Jessee Fletcher MD IMG CT PROCEDURES Final Result * (ABNORMAL) Hemoglobin and hematocrit (10/23/2024 11:32 AM CDT) Hgb 7.3(L) 13.0 - 17.5 g/dL Hct 23.3(L) 38.9 - 50.3 % [facility] Blood 10/23/2024 11:3 2 AM CDT 10/23/2024 11:59 AM CDT Jessee Fletcher MD LAB BLOOD ORDERABLES Final Resul t [facility] [address] [place] [address] * Prepare RBC: 1 Units (10/23/2024 8:27 AM CDT) Product code [id number] Unit Number [id number] [facility] Product [facility] Dispense Status RETURNED [facility] Blood 10/23/2024 8:27 AM CDT Narrative [facility] - 10/26/2024 7:16 AM CDT Are special requirements needed? (All products are leukoreduced and CMV- safe)- >No Date required:-[id number] LRRBC # of [id number] Reasons:-Hgb <7 g/dL} Jessee Fletcher MD BLOOD BANK PRODUCT ORDERABLES Fi nal Result Performing Organization Address [place] [facility]/ZIP Co de Phone Number [facility] [address] [facility] [employer] [place], [place] [id number] * Transfuse RBC (10/23/2024 8:22 AM CDT) Blood Juan Jose Fitzpatrick DO BLOOD TRANSFUSION ORDERABLE S Final Result Performing Organization Address City/[facility]/ZIP Co de Phone Number [facility] [address] [facility] [employer] [place], [place] [id number] * Prepare RBC: 1 Units (10/23/2024 3:10 AM CDT) Product code [id number] Unit Number [id number] [facility] Product Blood Type [facility] Dispense Status PRESUMED TRANSFUSED [facility] Blood 10/23/2024 3:10 AM CDT Narrative [facility] - 10/23/2024 10:20 PM CDT Are special requirements needed? (All products are leukoreduced and CMV- safe)- >No Date required:-[id number] LRRBC # of [id number] Reasons:-Hgb <7 g/dL} Juan Jose Fitzpatrick DO BLOOD BANK PRODUCT ORDERABL ES Final Result Performing Organization Address City/[facility]/ZIP Co de Phone Number [facility] [address] [place] [address] * (ABNORMAL) eGFR (10/23/2024 2:00 AM CDT) eGFR 25(L) >=60 mL/min/1. 73 m2 Comment: Interpretive Data [...] interpretive data was last reviewed 2021. Blood 10/23/2024 2:00 AM CDT 10/23/2024 2:25 AM CDT us Jessee Fletcher MD LAB BLOOD ORDERABLES Final Resul t [facility] [address] [place] [address] * (ABNORMAL) Differential, auto (10/23/2024 2:00 AM CDT) Neutrophil abs 8.62(H) 1.50 - 6.50 K/cumm Imm gran abs 0.16(H) 0.00 - 0.10 K/cumm [facility] Lymphocyte abs 0.27(L) 0.80 - 3.30 K/cumm [facility] Monocyte abs 1.18(H) 0.20 - 0.80 K/cumm [facility] Eosinophil abs 0.02 0.00 - 0.50 K/cumm [facility] Basophil abs 0.01 0.00 - 0.10 K/cumm [facility] Neutrophil pct 84.0 % [facility] Comment: Interpretive Data Percent cell count reference ranges are not reported, since discordance with absolute values may lead to misinterpretation of CBC data. Current Interpretive Data was last revised on 2017. Imm gran pct 1.6 % [facility] Comment: Interpretive Data Percent cell count reference ranges are not reported, since discordance with absolute values may lead to misinterpretation of CBC data. Current Interpretive Data was last revised on 2017. Lymphocyte pct 2.6 % [facility] Comment: Interpretive Data Percent cell count reference ranges are not reported, since discordance with absolute values may lead to misinterpretation of CBC data. Current Interpretive Data was last revised on 2017. Monocyte pct 11.5 % [facility] Comment: Interpretive Data Percent cell count reference ranges are not reported, since discordance with absolute values may lead to misinterpretation of CBC data. Current Interpretive Data was last revised on 2017. Eosinophil pct 0.2 % [facility] Comment: Interpretive Data Percent cell count reference ranges are not reported, since discordance with absolute values may lead to misinterpretation of CBC data. Current Interpretive Data was last revised on 2017. Basophil pct 0.1 % [facility] Comment: Interpretive Data Percent cell count reference ranges are not reported, since discordance with absolute values may lead to misinterpretation of CBC data. Current Interpretive Data was last revised on 2017. Blood 10/23/2024 2:00 AM CDT 10/23/2024 2:25 AM CDT us Jessee Fletcher MD LAB BLOOD ORDERABLES Final Resul t [facility] [address] Department [place] [address] * (ABNORMAL) CBC with auto differential (10/23/2024 2:00 AM CDT) WBC 10.26(H) 3.80 - 9.90 K/cumm Hgb 6.8(L) 13.0 - 17.5 g/dL [facility] Hct 22.0(L) 38.9 - 50.3 % [facility] Plt 194 150 - 400 K/cumm [facility] MPV 10.8 9.1 - 12.3 fL [facility] RBC 2.40(L) 4.30 - 5.80 M/cumm [facility] MCV 91.7 81.3 - 96.4 fL [facility] MCH 28.3 27.1 - 33.3 pg [facility] MCHC 30.9(L) 32.3 - 35.7 g/dL [facility] RDW CV 15.0(H) 11.1 - 14.9 % [facility] RDW SD 51.0(H) 35.7 - 48.1 fL [facility] NRBC abs 0.00 0.00 - 0.01 K/cumm [facility] Blood 10/23/2024 2:00 AM CDT 10/23/2024 2:25 AM CDT Jessee Fletcher MD LAB BLOOD ORDERABLES Final Resul t Performing Organization Address [place] [facility]/ZIP Co de Phone Number [facility] [address] [place] [address] * Magnesium (10/23/2024 2:00 AM CDT) [facility] Magnesium 1.7 1.4 - 2.5 mg/dL Blood 10/23/2024 2:00 AM CDT 10/23/2024 2:25 AM CDT Dayo Larsen DO LAB BLOOD ORDERABLES F inal Result Performing Organization Address City/[facility] Co de Phone Number [facility] [address] [place] [address] * (ABNORMAL) Comprehensive metabolic panel (10/23/2024 2:00 AM CDT) Sodium 143 135 - 145 mmol/L Potassium, pl 4.5 3.3 - 4.9 mmol/L [facility] Chloride 112(H) 97 - 110 mmol/L [facility] CO2 16(L) 22 - 32 mmol/L [facility] Anion gap 15 2 - 15 mmol/L [facility] BUN 53(H) 6 - 25 mg/dL [facility] Creatinine 2.60(H) 0.80 - 1.30 mg/dL [facility] Glucose 80 70 - 199 mg/dL [facility] Comment: Interpretive Data Fasting glucose >/= 126 [...] interpretive data was last revised 2022. Calcium 8.8 8.5 - 10.3 mg/dL [facility] Bilirubin, total 3.8(H) 0.1 - 1.2 mg/dL [facility] Protein, pl 5.9(L) 6.5 - 8.5 g/dL [facility] Albumin 2.6(L) 3.5 - 5.0 g/dL [facility] Alk phos 121 40 - 130 Units/L [facility] ALT 21 7 - 55 Units/L [facility] AST 21 10 - 50 Units/L [facility] Blood 10/23/2024 2:00 AM CDT 10/23/2024 2:25 AM CDT us Jessee Fletcher MD LAB BLOOD ORDERABLES Final Resul t [facility] [address] Department of Laboratories [place], [place] [id number] * (ABNORMAL) Hemoglobin and hematocrit (10/22/2024 7:24 PM CDT) Hgb 7.2(L) 13.0 - 17.5 g/dL Hct 23.0(L) 38.9 - 50.3 % [facility] Blood 10/22/2024 7:24 PM CDT 10/22/2024 7:38 PM CDT Jessee Fletcher MD LAB BLOOD ORDERABLES Final Resul t [facility] [address] [place] [address] * ECG 12 lead (10/22/2024 6:46 PM CDT) 10/22/2024 6:[address] [facility] - 10/22/2024 10:16 PM CDT Vent Rate: 104 bpm RR Interval: 576 msec [place] Interval: 153 msec QRS Duration: 99 msec QT Interval: 313 msec QTC Interval: 373 msec P-R-T [place]: 52 - 36 - 73 degrees IMPRESSION: SINUS TACHYCARDIA ABNORMAL RHYTHM ECG Electronically Signed By: Bharat Rosales [facility] Card John CEDILLO ECG ORDERABLES Final Result Performing Organization Address City/[facility]/ZIP Co de Phone Number [facility] * MRSA Only (Staphylococcus aureus) PCR Nasal (10/22/2024 3:34 PM CDT) Pathologist [facility] PCR Scrn, Methicillin resistant Staphylococcus aureus (MRSA) Not Detected Not Detected Comment: Interpretive Data Testing performed using Nucleic Acid Amplification with the [employer] Xpert MRSA NxG Assay. This assay detects target DNA from mecA, mecC and the SCCmec insertion site of Staphylococcus aureus using Real-Time PCR and has been cleared by the FDA. Performance characteristics have been verified by the [facility]. Current Interpretive Data was last revised on 2023 Nasal 10/22/2024 3:34 PM CDT 10/22/2024 3:51 PM CDT us Jerald Maria MD LAB MICROBIOLOGY - GENERAL ORDER OBED Final Result [facility] [address] Department [place] [address] * IR Change Biliary Drainage Catheter External Or Internal External (10/22/2024 2:03 PM CDT) Anatomical Region Laterality Modality Body N/A X-Ray Angiograph y 10/22/2024 2:58 PM CDT Impressions 10/22/2024 2:58 PM CDT 1. Successful biliary catheter exchange as described above. 2. Cauterization of granulation tissue at the skin site. PLAN: Drain was left open to gravity drainage. Will monitor drain output overnight and reassess tomorrow whether drain can be capped or not. The patient will likely need to return for interval biliary drainage catheter exchange in 4-6 weeks. Flush catheter with 10 cc saline slowly (over 30 seconds) once daily. [facility] - [phone] Electronically signed by: Jennifer Perry PA-C Narrative 10/22/2024 2:58 PM CDT EXAMINATION: 1. BILIARY TUBE CHANGE 2. 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 Patient reports severe abdominal pain. Drain was last exchanged on 09/28/2024. PROVIDER PRESENCE: Jennifer Perry PA-C, was present from the beginning to the end of the procedure. SEDATION: Conscious sedation was administered to the patient. TECHNIQUE: The risks, benefits and alternatives were discussed and informed consent was obtained. Prior to beginning the procedure, [place] Protocol was performed to confirm the patient's [...] for local anesthesia. The catheter was then injected with contrast under fluoroscopy. The catheter was divided and a Tawkersson guidewire in a 5-Lao Kumpe catheter were advanced through the catheter under fluoroscopic monitoring. The existing catheter was exchanged over the wire for a new 18-Lao Haroon internal-external biliary drainage catheter with additional sideholes. Limited contrast injection through the catheter under fluoroscopic monitoring confirmed appropriate position of the last side hole within the biliary tree. The catheter was secured in position using TWO 0-Prolene sutures and a Cath Air And Water Tester securement device. The drain was left open to gravity drainage. Two applicators of silver nitrate were used to cauterize granulation tissue at the skin site. A sterile dressing was applied. ESTIMATED BLOOD LOSS: Minimal. CONDITION: Stable. DISCHARGED TO: Recovery and then inpatient unit. FINDINGS: Injection of existing biliary catheter demonstrates catheter occlusion with last sidehole of catheter displaced laterally. Following drain exchange and reposition, the new biliary catheter is in appropriate position with good antegrade drainage. Last catheter sidehole is appropriately positioned within the biliary tree. Procedure Note Jennifer Perry PA - 10/22/2024 EXAMINATION: 1. BILIARY TUBE CHANGE 2. 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 Patient reports severe abdominal pain. Drain was last exchanged on 09/28/2024. PROVIDER PRESENCE: Jennifer Perry PA-C, was present from the beginning to the end of the procedure. SEDATION: Conscious sedation was administered to the patient. TECHNIQUE: The risks, benefits and alternatives were discussed and informed consent was obtained. Prior to beginning the procedure, [place] Protocol was performed to confirm the patient's [...] for local anesthesia. The catheter was then injected with contrast under fluoroscopy. The catheter was divided and a Tawkersson guidewire in a 5-Lao Kumpe catheter were advanced through the catheter under fluoroscopic monitoring. The existing catheter was exchanged over the wire for a new 18-Lao Haroon internal-external biliary drainage catheter with additional sideholes. Limited contrast injection through the catheter under fluoroscopic monitoring confirmed appropriate position of the last side hole within the biliary tree. The catheter was secured in position using TWO 0-Prolene sutures and a Cath Air And Water Tester securement device. The drain was left open to gravity drainage. Two applicators of silver nitrate were used to cauterize granulation tissue at the skin site. A sterile dressing was applied. ESTIMATED BLOOD LOSS: Minimal. CONDITION: Stable. DISCHARGED TO: Recovery and then inpatient unit. FINDINGS: Injection of existing biliary catheter demonstrates catheter occlusion with last sidehole of catheter displaced laterally. Following drain exchange and reposition, the new biliary catheter is in appropriate position with good antegrade drainage. Last catheter sidehole is appropriately positioned within the biliary tree. IMPRESSION: 1. Successful biliary catheter exchange as described above. 2. Cauterization of granulation tissue at the skin site. PLAN: Drain was left open to gravity drainage. Will monitor drain output overnight and reassess tomorrow whether drain can be capped or not. The patient will likely need to return for interval biliary drainage catheter exchange in 4-6 weeks. Flush catheter with 10 cc saline slowly (over 30 seconds) once daily. [facility] - [phone] Electronically signed by: Jennifer Perry PA-C us Jessee Fletcher MD IMG IR PROCEDURES Final Result * (ABNORMAL) Urinalysis reflex to microscopic and culture Urine (10/22/2024 1:17 PM CDT) Color, ur Yellow Yellow Clarity, ur Clear Clear [facility] Specific gravity, ur 1.016 1.003 - 1.030 [facility] pH, urine 6.0 [facility] Comment: Interpretive Data U rine pH is affected by diet, medications, systemic acid-base disturbances, and renal tubular function. pH may affect urinary stone formation. For example, urine pH below 6.0 may help reduce the tendency for calcium phosphate stones and pH greater than 6.0 may reduce the tendency for uric acid stone formation. Source: [facility] Current Interpretive Data was last revised on 2017 Protein, ur ql 1+(A) Negative [facility] Glucose, ur ql Negative Negative [facility] Ketones, ur Negative Negative [facility] Bilirubin, ur Negative Negative [facility] Blood, ur Negative Negative [facility] Urobilinogen, ur <2.0 <2.0 mg/dL [facility] Nitrite, ur Negative Negative [facility] Leukocyte esterase, ur Negative Negative [facility] UA reflex comment Reflex to microscopic UA will be performed. [facility] Urine 10/22/2024 1:17 PM CDT 10/22/2024 1:17 PM CDT Salinas Pro MD LAB MICROBIOLOGY - GENERAL O RDERABLES Final Result Performing Organization Address [place] [facility] Co de Phone Number [facility] [address] [place] [address] * (ABNORMAL) Urinalysis, microscopic only (10/22/2024 1:17 PM CDT) WBC, ur 0-5 0 - 5 /HPF RBC, ur 0-2 0 - 2 /HPF [facility] Epithelial cells, squamous, ur 1-5 0 - 5 /HPF [facility] Mucous, ur Present(A) [facility] Hyaline casts, ur 1-5 0 - 10 /LPF [facility] Culture Reflex Comment Reflex conditions for urine culture (WBC >10) not met. [facility] Urine 10/22/2024 1:17 PM CDT 10/22/2024 1:17 PM CDT Salinas Pro MD LAB URINE ORDERABLES Final R esult Performing Organization Address City/[facility] Co de Phone Number [facility] [address] Department [place] [address] * (ABNORMAL) eGFR (10/22/2024 12:48 PM CDT) Pathologist [facility] eGFR 24(L) >=60 mL/min/1. 73 m2 Comment: Interpretive Data [...] interpretive data was last reviewed 2021. Blood 10/22/2024 12:4 8 PM CDT 10/22/2024 12:48 PM CDT us Jessee Fletcher MD LAB BLOOD ORDERABLES Final Resul t [facility] [address] [place] [address] * (ABNORMAL) Differential, auto (10/22/2024 12:48 PM CDT) Pathologist [facility] Neutrophil abs 9.08(H) 1.50 - 6.50 K/cumm Imm gran abs 0.11(H) 0.00 - 0.10 K/cumm [facility] Lymphocyte abs 0.35(L) 0.80 - 3.30 K/cumm [facility] Monocyte abs 1.12(H) 0.20 - 0.80 K/cumm [facility] Eosinophil abs 0.03 0.00 - 0.50 K/cumm [facility] Basophil abs 0.02 0.00 - 0.10 K/cumm [facility] Neutrophil pct 84.7 % [facility] Comment: Interpretive Data Percent cell count reference ranges are not reported, since discordance with absolute values may lead to misinterpretation of CBC data. Current Interpretive Data was last revised on 2017. Imm gran pct 1.0 % [facility] Comment: Interpretive Data Percent cell count reference ranges are not reported, since discordance with absolute values may lead to misinterpretation of CBC data. Current Interpretive Data was last revised on 2017. Lymphocyte pct 3.3 % [facility] Comment: Interpretive Data Percent cell count reference ranges are not reported, since discordance with absolute values may lead to misinterpretation of CBC data. Current Interpretive Data was last revised on 2017. Monocyte pct 10.5 % [facility] Comment: Interpretive Data Percent cell count reference ranges are not reported, since discordance with absolute values may lead to misinterpretation of CBC data. Current Interpretive Data was last revised on 2017. Eosinophil pct 0.3 % [facility] Comment: Interpretive Data Percent cell count reference ranges are not reported, since discordance with absolute values may lead to misinterpretation of CBC data. Current Interpretive Data was last revised on 2017. Basophil pct 0.2 % [facility] Comment: Interpretive Data Percent cell count reference ranges are not reported, since discordance with absolute values may lead to misinterpretation of CBC data. Current Interpretive Data was last revised on 2017. Blood 10/22/2024 12:4 8 PM CDT 10/22/2024 12:48 PM CDT us Jessee Fletcher MD LAB BLOOD ORDERABLES Final Resul t [facility] [address] [place] [address] * (ABNORMAL) CBC with auto differential (10/22/2024 12:48 PM CDT) WBC 10.71(H) 3.80 - 9.90 K/cumm Hgb 7.1(L) 13.0 - 17.5 g/dL [facility] Hct 22.6(L) 38.9 - 50.3 % [facility] Plt 182 150 - 400 K/cumm [facility] MPV 10.8 9.1 - 12.3 fL [facility] RBC 2.53(L) 4.30 - 5.80 M/cumm [facility] MCV 89.3 81.3 - 96.4 fL [facility] MCH 28.1 27.1 - 33.3 pg [facility] MCHC 31.4(L) 32.3 - 35.7 g/dL [facility] RDW CV 14.8 11.1 - 14.9 % [facility] RDW SD 48.3(H) 35.7 - 48.1 fL [facility] NRBC abs 0.00 0.00 - 0.01 K/cumm [facility] Blood 10/22/2024 12:4 8 PM CDT 10/22/2024 12:48 PM CDT us Jessee Fletcher MD LAB BLOOD ORDERABLES Final Resul t [facility] [address] [place] [address] * (ABNORMAL) Comprehensive metabolic panel (10/22/2024 12:48 PM CDT) Sodium 140 135 - 145 mmol/L Potassium, pl 4.5 3.3 - 4.9 mmol/L [facility] Chloride 110 97 - 110 mmol/L [facility] CO2 17(L) 22 - 32 mmol/L [facility] Anion gap 13 2 - 15 mmol/L [facility] BUN 54(H) 6 - 25 mg/dL [facility] Creatinine 2.73(H) 0.80 - 1.30 mg/dL [facility] Glucose 90 70 - 199 mg/dL [facility] Comment: Interpretive Data Fasting glucose >/= 126 [...] interpretive data was last revised 2022. Calcium 8.8 8.5 - 10.3 mg/dL [facility] Bilirubin, total 3.9(H) 0.1 - 1.2 mg/dL [facility] Protein, pl 6.1(L) 6.5 - 8.5 g/dL [facility] Albumin 2.7(L) 3.5 - 5.0 g/dL [facility] Alk phos 119 40 - 130 Units/L [facility] ALT 20 7 - 55 Units/L [facility] AST 15 10 - 50 Units/L [facility] Blood 10/22/2024 12:4 8 PM CDT 10/22/2024 12:48 PM CDT us Jessee Fletcher MD LAB BLOOD ORDERABLES Final Resul t [facility] [address] [place] [address] * CT Abdomen Pelvis WO Contrast (10/22/2024 8:04 AM CDT) Anatomical Region Laterality Modality Body N/A Computed Tomogra phy 10/22/2024 8:42 AM CDT Impressions 10/22/2024 8:42 AM CDT 1. Unchanged intrahepatic and extra hepatic biliary ductal dilatation with a percutaneous biliary drain in place. No acute CT finding in the abdomen or pelvis. 2. Decreased density of the right middle lobe pulmonary nodule, incompletely evaluated on this exam. 3. Increased lower lung aspiration. 4. Increase in size of a moderate pericardial effusion. Electronically signed by: Dion Guthrie M.D. Narrative 10/22/2024 8:42 AM CDT EXAMINATION: Computed tomography of the abdomen and pelvis without intravenous contrast HISTORY: Abdominal pain TECHNIQUE: Transaxial computed tomographic images of the abdomen and pelvis were obtained without intravenous contrast according to the standard protocol. COMPARISON: CT dated 08/21/2024. FINDINGS: Decreased density of a subcentimeter nodule within the right middle lobe, partially imaged. There is mucus plugging and tree-in-bud within the lower lobes, most pronounced on the left. These findings have progressed. There is a background of emphysema. No pleural effusion. Increased small to moderate pericardial effusion. Severe intrahepatic and extrahepatic biliary ductal dilatation with a percutaneous transhepatic biliary catheter in unchanged configuration. These findings are not significantly changed from the prior exam. The liver is normal in size without focal hepatic lesion seen on this noncontrast examination. The gallbladder is decompressed. The spleen is normal. The pancreas and adrenal glands are normal. Polycystic kidney disease with numerous cysts replacing the renal parenchyma. Small bilateral renal stones are seen but there is no hydronephrosis. Urinary bladder is partially decompressed but without wall thickening. The prostate is enlarged. The stomach small bowel and colon are normal in caliber. There is a umbilical hernia containing a loop of bowel which is not obstructed. There is no bowel obstruction or focal bowel wall thickening. No free fluid or free peritoneal air. Abdominal aorta is atherosclerotic but nonaneurysmal. Bilateral hip osteoarthritis is noted. Posterior decompression at L5-S1 noted. No suspicious or aggressive osseous lesion. Procedure Note Dion Guthrie MD - 10/22/2024 EXAMINATION: Computed tomography of the abdomen and pelvis without intravenous contrast HISTORY: Abdominal pain TECHNIQUE: Transaxial computed tomographic images of the abdomen and pelvis were obtained without intravenous contrast according to the standard protocol. COMPARISON: CT dated 08/21/2024. FINDINGS: Decreased density of a subcentimeter nodule within the right middle lobe, partially imaged. There is mucus plugging and tree-in-bud within the lower lobes, most pronounced on the left. These findings have progressed. There is a background of emphysema. No pleural effusion. Increased small to moderate pericardial effusion. Severe intrahepatic and extrahepatic biliary ductal dilatation with a percutaneous transhepatic biliary catheter in unchanged configuration. These findings are not significantly changed from the prior exam. The liver is normal in size without focal hepatic lesion seen on this noncontrast examination. The gallbladder is decompressed. The spleen is normal. The pancreas and adrenal glands are normal. Polycystic kidney disease with numerous cysts replacing the renal parenchyma. Small bilateral renal stones are seen but there is no hydronephrosis. Urinary bladder is partially decompressed but without wall thickening. The prostate is enlarged. The stomach small bowel and colon are normal in caliber. There is a umbilical hernia containing a loop of bowel which is not obstructed. There is no bowel obstruction or focal bowel wall thickening. No free fluid or free peritoneal air. Abdominal aorta is atherosclerotic but nonaneurysmal. Bilateral hip osteoarthritis is noted. Posterior decompression at L5-S1 noted. No suspicious or aggressive osseous lesion. IMPRESSION: 1. Unchanged intrahepatic and extra hepatic biliary ductal dilatation with a percutaneous biliary drain in place. No acute CT finding in the abdomen or pelvis. 2. Decreased density of the right middle lobe pulmonary nodule, incompletely evaluated on this exam. 3. Increased lower lung aspiration. 4. Increase in size of a moderate pericardial effusion. Electronically signed by: Dion Guthrie M.D. Jerald Maria MD IMG CT PROCEDURES Final Result * Sepsis Lactate w/ Reflex (10/22/2024 7:20 AM CDT) Sepsis Lactate 0.7 0.7 - 2.0 mmol/L Blood 10/22/2024 7:20 AM CDT 10/22/2024 7:50 AM CDT us Jerald Maria MD LAB BLOOD ORDERABLES Final Resul t Performing Organization Address [place] [facility] Co de Phone Number [facility] [address] [place] [address] * Type and screen (10/22/2024 7:20 AM CDT) ABO Rh A Positive Vanessa, indirect Negative [facility] Blood 10/22/2024 7:20 AM CDT 10/22/2024 7:45 AM CDT Narrative [facility] - 10/22/2024 8:40 AM CDT Has the patient had Daratumumab or Isatuximab in the past 6 months?->Unknown us Jerald Maria MD LAB BLOOD BANK TEST ORDERABLES F inal Result Performing Organization Address [facility] Co de Phone Number [facility] [address] [facility] [place] [address] * (ABNORMAL) Lactate dehydrogenase (LD) (10/22/2024 7:20 AM CDT) Lactate dehydrogenase (LDH) 80(L) 100 - 250 Units/L Blood 10/22/2024 7:20 AM CDT 10/22/2024 7:27 AM CDT Jerald Maria MD LAB BLOOD ORDERABLES Final Resul t Performing Organization Address [facility] Co de Phone Number [facility] [address] [facility] [place] [address] * (ABNORMAL) Haptoglobin (10/22/2024 7:20 AM CDT) Haptoglobin 325(H) 30 - 200 mg/dL Blood 10/22/2024 7:20 AM CDT 10/22/2024 7:27 AM CDT Jerald Maria MD LAB BLOOD ORDERABLES Final Resul t Performing Organization Address [facility] de Phone Number [facility] [address] [place] [address] * XR Chest 1 Vw Portable (10/22/2024 3:18 AM CDT) Anatomical Region Laterality Modality Body, Chest N/A Computed Radiogr aphy 10/22/2024 8:59 AM CDT Impressions 10/22/2024 8:59 AM CDT Comparison 08/19/2024. Right chest wall port catheter tip is in the superior vena cava. Again seen is coarse opacities in the lung apices, with new opacities throughout the right lung (most pronounced in the right upper lung), suspicious for infectious pneumonia. Continued radiographic follow-up to resolution is recommended. Patchy left lower lobe opacities are also seen which may reflect atelectasis or additional site of infection. No pneumothorax. The heart size is unchanged. Electronically signed by: Dion Guthrie M.D. Narrative 10/22/2024 8:59 AM CDT EXAMINATION: 1 view chest radiograph Procedure Note Dion Guthrie MD - 10/22/2024 EXAMINATION: 1 view chest radiograph IMPRESSION: Comparison 08/19/2024. Right chest wall port catheter tip is in the superior vena cava. Again seen is coarse opacities in the lung apices, with new opacities throughout the right lung (most pronounced in the right upper lung), suspicious for infectious pneumonia. Continued radiographic follow-up to resolution is recommended. Patchy left lower lobe opacities are also seen which may reflect atelectasis or additional site of infection. No pneumothorax. The heart size is unchanged. Electronically signed by: Dion Guthrie M.D. Salinas Pro MD IMG XR PROCEDURES Final Resu lt * Blood culture Blood (10/22/2024 3:08 AM CDT) Report Final Report: No growth Blood 10/22/2024 3:08 AM CDT 10/22/2024 3:39 AM CDT Narrative [facility] - 10/27/2024 7:00 AM CDT From a different site than #1. Collection->Peripheral Interpretive Data 1. Blood cultures are incubated and monitored continuously for 5 days (120 hours). The first negative report is issued within 24 hours of receipt in the laboratory. 2. All positive cultures are resulted and called to physicians/care providers as soon as they are detected. 3. A rapid molecular test for organism identification may be performed using the UYA100 Blood Culture Identification panel. This assay detects microbial DNA in a blood culture broth. This assay has been cleared by the [place] Food and Drug Administration and its performance characteristics have been verified by the [facility]. Interpretive data was last revised on July 15, 2022. Salinas Pro MD LAB MICROBIOLOGY - GENERAL O RDERABLES Final Result [facility] [address] Department [place] [address] * Blood culture Blood (10/22/2024 3:08 AM CDT) Report Final Report: No growth Blood 10/22/2024 3:08 AM CDT 10/22/2024 3:39 AM CDT Narrative [facility] - 10/27/2024 7:00 AM CDT Collection->Peripheral Interpretive Data 1. Blood cultures are incubated and monitored continuously for 5 days (120 hours). The first negative report is issued within 24 hours of receipt in the laboratory. 2. All positive cultures are resulted and called to physicians/care providers as soon as they are detected. 3. A rapid molecular test for organism identification may be performed using the UYA100 Blood Culture Identification panel. This assay detects microbial DNA in a blood culture broth. This assay has been cleared by the [place] Food and Drug Administration and its performance characteristics have been verified by the [facility]. Interpretive data was last revised on July 15, 2022. Salinas Pro MD LAB MICROBIOLOGY - GENERAL O RDERABLES Final Result [facility] [address] Department [place] [address] * (ABNORMAL) Troponin T high-sensitivity series (baseline, 2hr, 4hr, 6hr) (10/22/2024 2:55 AM CDT) Trop T hs 29(H) <=22 ng/L Comment: Interpretive Data For further hscTnT resources including the diagnostic algorithm and an aid in interpretation, copy and paste this link: [email or web address].testcatalog.org/show/[email or web address] Current Interpretive Data last revised 2020. Blood 10/22/2024 2:55 AM CDT 10/22/2024 3:21 AM CDT Salinas Pro MD LAB BLOOD ORDERABLES Final R esult [facility] [address] [place] [address] * (ABNORMAL) eGFR (10/22/2024 2:55 AM CDT) eGFR 22(L) >=60 mL/min/1. 73 m2 Comment: Interpretive Data [...] interpretive data was last reviewed 2021. Blood 10/22/2024 2:55 AM CDT 10/22/2024 3:21 AM CDT Salinas Pro MD LAB BLOOD ORDERABLES Final R esult Performing Organization Address [facility] Co de Phone Number [facility] [address] [place] [address] * (ABNORMAL) Differential, auto (10/22/2024 2:55 AM CDT) Pathologist [facility] Neutrophil abs 9.65(H) 1.50 - 6.50 K/cumm Imm gran abs 0.12(H) 0.00 - 0.10 K/cumm [facility] Lymphocyte abs 0.29(L) 0.80 - 3.30 K/cumm [facility] Monocyte abs 1.23(H) 0.20 - 0.80 K/cumm [facility] Eosinophil abs 0.03 0.00 - 0.50 K/cumm [facility] Basophil abs 0.01 0.00 - 0.10 K/cumm [facility] Neutrophil pct 85.0 % [facility] Comment: Interpretive Data Percent cell count reference ranges are not reported, since discordance with absolute values may lead to misinterpretation of CBC data. Current Interpretive Data was last revised on 2017. Imm gran pct 1.1 % [facility] Comment: Interpretive Data Percent cell count reference ranges are not reported, since discordance with absolute values may lead to misinterpretation of CBC data. Current Interpretive Data was last revised on 2017. Lymphocyte pct 2.6 % [facility] Comment: Interpretive Data Percent cell count reference ranges are not reported, since discordance with absolute values may lead to misinterpretation of CBC data. Current Interpretive Data was last revised on 2017. Monocyte pct 10.9 % [facility] Comment: Interpretive Data Percent cell count reference ranges are not reported, since discordance with absolute values may lead to misinterpretation of CBC data. Current Interpretive Data was last revised on 2017. Eosinophil pct 0.3 % [facility] Comment: Interpretive Data Percent cell count reference ranges are not reported, since discordance with absolute values may lead to misinterpretation of CBC data. Current Interpretive Data was last revised on 2017. Basophil pct 0.1 % [facility] Comment: Interpretive Data Percent cell count reference ranges are not reported, since discordance with absolute values may lead to misinterpretation of CBC data. Current Interpretive Data was last revised on 2017. Blood 10/22/2024 2:55 AM CDT 10/22/2024 3:21 AM CDT us Salinas Pro MD LAB BLOOD ORDERABLES Final R esult [facility] [address] Department [place] [address] * (ABNORMAL) CBC with auto differential (10/22/2024 2:55 AM CDT) WBC 11.33(H) 3.80 - 9.90 K/cumm Hgb 7.4(L) 13.0 - 17.5 g/dL [facility] Hct 23.6(L) 38.9 - 50.3 % [facility] Plt 194 150 - 400 K/cumm [facility] MPV 10.7 9.1 - 12.3 fL [facility] RBC 2.62(L) 4.30 - 5.80 M/cumm [facility] MCV 90.1 81.3 - 96.4 fL [facility] MCH 28.2 27.1 - 33.3 pg [facility] MCHC 31.4(L) 32.3 - 35.7 g/dL [facility] RDW CV 14.7 11.1 - 14.9 % [facility] RDW SD 48.6(H) 35.7 - 48.1 fL [facility] NRBC abs 0.00 0.00 - 0.01 K/cumm [facility] Blood 10/22/2024 2:55 AM CDT 10/22/2024 3:21 AM CDT Salinas Pro MD LAB BLOOD ORDERABLES Final R esult Performing Organization Address [facility] Co de Phone Number [facility] [address] [employer] [place], [place] [id number] * Lipase (10/22/2024 2:55 AM CDT) [facility] Lipase 20 10 - 99 Units/L Blood 10/22/2024 2:55 AM CDT 10/22/2024 3:21 AM CDT Salinas Pro MD LAB BLOOD ORDERABLES Final R esult Performing Organization Address City/[facility]/ZIP Co de Phone Number [facility] [address] [facility] [place] [address] * (ABNORMAL) Comprehensive metabolic panel (10/22/2024 2:55 AM CDT) Sodium 140 135 - 145 mmol/L Potassium, pl 4.5 3.3 - 4.9 mmol/L [facility] Chloride 107 97 - 110 mmol/L [facility] CO2 17(L) 22 - 32 mmol/L [facility] Anion gap 16(H) 2 - 15 mmol/L [facility] BUN 55(H) 6 - 25 mg/dL [facility] Creatinine 2.91(H) 0.80 - 1.30 mg/dL [facility] Glucose 108 70 - 199 mg/dL [facility] Comment: Interpretive Data Fasting glucose >/= 126 [...] interpretive data was last revised 2022. Calcium 9.0 8.5 - 10.3 mg/dL [facility] Bilirubin, total 3.8(H) 0.1 - 1.2 mg/dL [facility] Protein, pl 6.5 6.5 - 8.5 g/dL [facility] Albumin 3.1(L) 3.5 - 5.0 g/dL [facility] Alk phos 124 40 - 130 Units/L [facility] ALT 18 7 - 55 Units/L [facility] AST 21 10 - 50 Units/L [facility] Blood 10/22/2024 2:55 AM CDT 10/22/2024 3:21 AM CDT us Salinas Pro MD LAB BLOOD ORDERABLES Final R esult [facility] [address] Department [place] [address] * ECG 12 lead (10/22/2024 2:54 AM CDT) 10/22/2024 2:54 AM CDT Narrative [facility] - 10/22/2024 8:25 AM CDT Vent Rate: 111 bpm RR Interval: 538 msec [place] Interval: 135 msec QRS Duration: 90 msec QT Interval: 306 msec QTC Interval: 372 msec P-R-T [place]: 73 - 120 - 72 degrees IMPRESSION: SINUS TACHYCARDIA RIGHT AXIS DEVIATION ABNORMAL ECG Electronically Signed By: Deangelo Funez MD, [facility] Salinas Pro MD ECG ORDERABLES Final Result [facility] * (ABNORMAL) Hepatitis C (HCV) RNA PCR, quantitative (04/14/2018 9:10 AM CDT) HCV RNA IU/mL 54,107 IU/mL 04/16/2018 5:33 PM [employer] HISTORICAL RESULTS HCV RNA log IU/mL 4.73 log IU/mL 018 5:33 PM [employer] [facility] [employer] HISTORICAL RESULTS HCV quant by NAAT interp Detected( H) Not Detected 04/16/2018 5:33 PM [employer] [email or web address] HISTORICAL RESULTS Comment: INTERPRETIVE INFORMATION: HCV by Quantitative NAAT Normal range for this assay is Not Detected. The quantitative range of this assay is [...] and Cellular Tissue-Based Products (HCT/P). Performed by [employer], [address] [place] [id number] [email or web address], Aaron Esparza MD, Lab. Director 04/14/2018 9:10 AM CDT 04/14/2018 9:28 AM CDT Amari Frazier MD LAB MICROBIOLOGY - GENERAL NIKHIL MEYERS Final Result [facility] HISTORICAL RESULTS from Last 3 Months or Most Recently Relevant to Health Maintenance Insurance IDPA [facility] MEDICARE HMO [facility] MEDICARE HMO IDPA [facility] MEDICARE HMO IDNV [facility] MEDICARE HMO IDPA DEPT OF LABOR - [facility] WORKERS COMPENSATION GENERIC WORKERS COMPENSATION GENERIC Advance Directives For more information, please contact: [phone] Documents on File Type Date Recorded Patient Sampler Radioactive Waste Expl anation ADVANCE DIRECTIVE 11/17/2024 1:55 AM POWER OF PHYSICIST ASTROPHYSICS-MEDICAL * Full Code (Latest Code Status on File) Date Activated Date Inactivated Comments 12/21/2024 1:29 PM 12/22/2024 4:44 AM * Full Code Date Activated Date Inactivated Comments 12/20/2024 12:41 PM 12/21/2024 4:46 AM * LIMITED - No CPR Date Activated Date Inactivated Comments 11/13/2024 10:31 AM 11/15/2024 11:32 PM Question Answer Comments Provide aggressive medical m anagement before a full cardiopulmonary arrest occurs. Use antibiotics, IV Fluids, and medical treatment unless specifically selected below: No intubationNo cardioversion Discussed with the following attending physician: Dr. Jackman * Full Code Date Activated Date Inactivated Comments 11/11/2024 10:30 PM 11/13/2024 10:31 AM * LIMITED - No CPR Date Activated Date Inactivated Comments 10/22/2024 6:15 AM 10/28/2024 4:44 PM Care Teams Historic Sites Registrar Relationship Specialty Start Date End Date Jose Rivera MD [address] [place] [address] PCP - General 08/29/17 [place] [address] [place] [address] Consulting Physician Gastroenterology 02/08/23 Shayan Brown MD [address] [address] Referring Physician Hematology 01/13/24 No, Physician 11/15/24
--- OUTSIDE RECORDS SUMMARY | 2025-01-11 09:47 | XMS_ITS | Patient Health Record ---
Author Organization [facility] Address [address] [place] [address] Support Name Relationship Address Phone [facility] Emergency Contact [address] [place] [address] Lee Cotto Guarantor Unknown [phone] Allergies Allergen (clinical drug ingredient) Drug/Non Drug Allergy documented on EMR Reaction Allergy Type Onset Date Status lisinopril Lisinopril Unknown Drug Allergy Activ e Penicillin G Benzathine hives Drug Allergy Active [place]-Heel hives Drug Allergy Acti ve Reason For Referral No Information Medications Medication SIG (Take, Route, Frequency, Duration) Notes Start Date End Date Status Cardura 8 MG 1 tablet Orally Once a day; Duration: 30 day(s) Active Sildenafil Citrate 100 MG 1 tablet as needed Orally Once a day; Duration: 30 days Active Aspirin 81 MG as directed Orally Active Flonase 50 MCG/ACT 2 spray in each nostril Nasally Once a day; Duration: 30 day(s) *Reorder from [employer] for eRx and Interaction Alerts* Active Ipratropium [place] 0.02 % 2.5 ml Inhalation every 8 hrs Active Albuterol Sulfate (2.5 MG/3ML) 0.083% 3 ml as needed Inhalation every 8 hrs Active Albuterol Sulfate (5 MG/ML) 0.5% as directed Inhalation Active Norvasc 10 MG 1 tablet Orally Once a day; Duration: 30 day(s) Active Trelegy Ellipta 100-62.5-25 MCG/INH 1 puff Inhalation Once a day *Pick strength-form from [employer] for eRX* Active Ventolin HFA 108 (90 Base) MCG/ACT 1 puff as needed Inhalation every 4 hrs Active Ergocalciferol 1.25 MG (34446 UT) 1 capsule Orally once a week; Duration: 90 days 08/20/2019 Active Levocetirizine Dihydrochloride 5 MG 1 tablet in the evening Orally Once a day; Duration: 30 day(s) Active Problems Problem Type SNOMED Code ICD Code Onset Dates Problem Status W/U Status Risk Notes Problem Vitamin D deficiency (46418598) Vitamin D deficiency (E55.9) Active confirmed Problem Erectile dysfunction (298594114) Erectile dysfunction (N52.9) Active confirmed Problem Hypertension (76457574) Hypertension (I10) Active confirmed Problem COPD - Chronic obstructive pulmonary disease (39168071) COPD (chronic obstructive pulmonary disease) (J44.9) Active confirmed Problem Dependence on supplemental oxygen (084113031252) Oxygen dependent (Z99.81) Active confirmed Plan Of [...] Insured Coverage Start Date Coverage End Date [employer] H[employer] [address] [address] [place] [address] [id number] Lee Cotto Self - patient is the insured 0 MEDICARE [address] [place] [phone] [id number] Lee Cotto Self - patient is the insured Medical (General) History Medical History History ICD Code hbp shortness of breath copd broken bones
--- OUTSIDE RECORDS SUMMARY | 2025-01-11 09:47 | XMS_ITS | Encounter Summary ---
Author Organization [facility] [employer] [facility] Address [address] [place] [address] Care Team Providers Care Technical Aide Name Role Phone Jose Rivera MD Primary Care Provider Encounter Details Date Type Department Care Team (Late Contact Info) Description 01/08/2025 Orders Only [facility] Oncology and Hematology - Jose [address] [place] [address] Shayan Brown MD [address] [facility] [address] [place] [address] Social History Tobacco Use Types Packs/Day Years [...] Description 01/18/2025 9:45 AM CDT Office Visit [facility]ematology - Jose [address] [place] [address] Shayan Brown MD [address] [facility] [address] [place] [address] documented as of this encounter Procedures Procedure Name Priority Date/Time Associated Diagnosis Comments CBC WITH DIFFERENTIAL Routine 01/07/2025 4:07 PM CDT documented in this encounter Results * CBC WITH DIFFERENTIAL (01/07/2025 4:07 PM CDT) Blood us Shayan Brown MD HEMATOLOGY ORDERABLES Final Res ult documented in this encounter Visit Diagnoses Not on filedocumented in this encounter Care Teams Technical Aide Relationship Specialty Start Date End Date Jose Rivera MD [address] [facility] [place] [address] PCP - General Family Practice 12/29/23 documented as of this encounter
--- OUTSIDE RECORDS SUMMARY | 2025-01-11 09:47 | XMS_ITS | Encounter Summary ---
Author Organization [facility] Healthcare Address [address] [place] [address] Care Team Providers Care Project Development Engineer Name Role Phone Jose Rivera MD Primary Care Provider Justin Miller MD Unavailable Shayan Brown MD Unavailable [phone] No, Physician Unavailable Encounter Details Date Type Department Care Team (Late st Contact Info) Description 04/19/2024 Documentation [facility] - Interventional Radiology [address] [place] [address] Alda Harris RN Social History [...] often do you attend chur ch or buddhist services? Never 02/03/2023 Do you belong to any clubs o r organizations such as holiness groups, unions, fraternal or athletic groups, or [...] on file Legal Sex Male 1:47 AM HEMATOLOGY NURSE Gender Identity Not on file Sexual Orientation [...] COVID: Suspected 08/06/2024 08/06/2024 08/06/2024 7:34 AM HEMATOLOGY NURSE COVID19 08/06/2024 08/06/2024 08/20/2024 2:36 PM CDT COVID: Recovered Comment:Added based on recent COVID infection. 08/20/2024 08/20/2024 11/18/2024 7:26 PM C DT documented as of this encounter Care Teams Project Development Engineer Relationship Specialty Start Date End Date Jose Rivera MD [address] [id number] PCP - General 08/29/17 [place] [address] [place] [address] Consulting Physician Gastroenterology 02/08/23 Shayan Brown MD [address] [address] Referring Physician Hematology 01/13/24 No, Physician 11/15/24 documented as of this encounter
--- OUTSIDE RECORDS SUMMARY | 2025-01-11 09:47 | XMS_ITS | Encounter Summary ---
Author Organization [facility] Healthcare Address [address] [place] [address] Care Team Providers Care Bag Valver Name Role Phone Jose Rivera MD Primary Care Provider [phone] Justin Miller MD Unavailable Shayan Brown MD Unavailable [phone] No, Physician Unavailable Encounter Details Date Type Department Care Team (Late st Contact Info) Description 09/27/2024 Telephone [facility] - Interventional Radiology [address] [place] [id number] Juan Sierra, RN Social History [...] materials from doctor or pharmacy Never 04/12/2023 [facility] Utilities Answer Date Recorded In the past [...] chur ch or jehovah's witness services? Never 08/21/2024 Do you belong to [...] place to sleep or slept in a fci (including now)? No 02/03/2023 Housing Stability Vital [...] in the past 12 m [facility], were you homeless or living in a fci (including now)? No 08/21/2024 Personal Safety Answer Date Recorded Have you ever been in or are you currently in a harmful physical or emotional relationship or is someone making you feel afraid or unsafe? Denies 09/28/2024 Sex and Gender Information Value Date Recorded Sex Assigned at Not on file Legal Sex Male 1:47 AM [employer] Gender Identity Not on file Sexual [...] documented as of this encounter Care Teams Bag Valver Relationship Specialty Start Date End Date Jose Rivera MD [address] [place] [id number] PCP - General 08/29/17 [place] [address] [place] [address] Consulting Physician Gastroenterology 02/08/23 Shayan Brown MD [address] [place] [phone] Referring Physician Hematology 01/13/24 No, Physician 11/15/24 documented as of this encounter
--- OUTSIDE RECORDS SUMMARY | 2025-01-11 09:47 | XMS_ITS | Referral Summary ---
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 - Interventional Radiology [address] [place] [phone] Juan Sierra, RN 01/10/2025 Orders Only [facility] - Interventional Radiology [address] [place] [phone] Juan Sierra, RN 01/02/2025 Orders Only [facility] - Interventional Radiology [address] [place] [phone] Juan Sierra, RN 01/02/2025 11:19 AM CDT - 01/02/2025 11:59 PM CDT Hospital Encounter [facility] - Interventional Radiology [address] [place] [phone] Biliary obstruction (HCC) Discharge Disposition: Discharge to home or self care 01/01/2025 Telephone [facility] - Interventional Radiology [address] [place] [phone] Juan Sierra RN 01/01/2025 Orders Only [facility] - Interventional Radiology [address] [place] [phone] Juan Sierra RN 12/26/2024 12:39 PM CDT - 12/26/2024 11:59 PM CDT Hospital Encounter [facility] - Interventional Radiology [address] [place] [phone] Biliary obstruction (HCC) Discharge Disposition: Discharge to home or self care 12/21/2024 1:18 PM CDT - 12/21/2024 11:59 PM CDT Hospital Encounter [facility] - Interventional Radiology [address] [place] [phone] Biliary obstruction (HCC) Discharge Disposition: Discharge to home or self care 12/20/2024 12:30 PM CDT - 12/20/2024 11:59 PM CDT Hospital Encounter [facility] - Interventional Radiology [address] [place] [phone] Biliary obstruction (HCC) Discharge Disposition: Discharge to home or self care 12/19/2024 Telephone [facility] - Interventional Radiology [address] [place] [phone] Park Johns RN 12/15/2024 8:13 AM CDT - 12/15/2024 1:08 PM CDT Emergency [address] [address] Cuauhtemoc Isaac MD COPD exacerbation (HCC) (Primary Dx) Discharge Disposition: Discharge to home or self care 11/27/2024 Telephone [facility] - Interventional Radiology [address] [place] [phone] Juan Sierra RN 11/27/2024 Orders Only [facility] - Interventional Radiology [address] [place] [phone] Juan Sierra RN 11/22/2024 Orders Only [facility] - Interventional Radiology [address] [place] [phone] Juan Sierra RN 11/22/2024 9:02 AM CDT - 11/22/2024 11:59 PM CDT Hospital Encounter [facility] - Interventional Radiology [address] [place] [phone] Biliary obstruction (HCC) Discharge Disposition: Discharge to home or self care 11/21/2024 Telephone [facility] - Interventional Radiology [address] [place] [phone] Juan Sierra RN 11/11/2024 2:59 PM CDT - 11/15/2024 7:26 PM CDT Hospital Encounter [address] [phone] Thor Herr MD Yew, MD Augustina Norton, MD Chava Waterman Dorian Genki, PRISCILLA (acute kidney injury) (Primary Dx); Anemia, [...] Disposition: Discharge to home or self care 11/12/2024 2:34 PM CDT Anesthesia Event [facility] [address] [place] [phone] Gillian Osei MD Lorusso, Chynna Janae, CRNA 11/12/2024 3:00 PM CDT - 11/12/2024 3:45 PM CDT Surgery [facility] [address] [place] [phone] Cristiano Gallardo MD SMALL BOWEL WITH REMOVAL FOREIGN BODY 11/12/2024 Orders Only [facility] - Interventional Radiology [address] [place] [phone] Ruthie Angulo RN 11/12/2024 Orders Only [facility] - Interventional Radiology [address] [place] [phone] Juan Sierra RN 11/12/2024 Orders Only [facility] - Interventional Radiology [address] [place] [phone] Pearl Goldstein, ROBEL 11/12/2024 Orders Only [facility] - Interventional Radiology [address] [place] [phone] Alejandra Coronado, ROBEL 11/09/2024 Telephone Radiology [address] [place] [address] Columba Garcia PA 10/31/2024 2:00 PM CDT - 10/31/2024 11:59 PM CDT Hospital Encounter [facility] - Interventional Radiology [address] [place] [phone] Gall bladder inflammation Discharge Disposition: Discharge to home or self care 10/22/2024 2:46 AM CDT - 10/28/2024 12:39 PM CDT Hospital Encounter [address] [phone] Salinas Pro MD Shimotani, Dayo Snyder, DO Maria, MD Chance Valdez Sophia, MD Halasa, Tariq, MD Pneumonia of right middle lobe due to infectious organism (Primary Dx); Malfunction of device; Acute kidney injury [N17.9]; Acute on chronic renal insufficiency [N28.9, N18.9]; Anemia due to stage 3a chronic kidney disease (HCC) [N18.31, D63.1]; Biliary drain displacement, initial encounter [T85.520A]; HCAP (healthcare-associat ed pneumonia) [J18.9]; Chronic obstructive pulmonary disease, unspecified COPD type ([facility]) [J44.9]; Chronic respiratory failure with hypoxia ([facility]) [J96.11]; Former smoker [Z87.891] Discharge Disposition: Discharge to home or self care 10/26/2024 Telephone [facility] - Interventional Radiology [address] [place] [phone] Park Johns RN 10/26/2024 1:11 PM CDT Anesthesia Event [facility] - Interventional Radiology [address] [place] [phone] Eva Pa MD Fuqua, Justin Kyle, CRNA 10/26/2024 Orders Only [facility] - Interventional Radiology [address] [place] [phone] Park Johns RN from Last 3 Months Allergies Active Allergy [...] each nostril daily as needed for allergies 019 Active levocetirizine (XYZAL) 5 mg tabletIndications :Allergic [...] tablet (8 mg total) by mouth nightly Active metoprolol tartrate (LOPRESSOR) 25 mg immediate [...] Plan (03/03/2019 4:42 PM CDT): Continue with Trelegy and duo nebs. Pain in extremity 12/08/2009 Primary hypertension 12/08/2009 [...] materials from doctor or pharmacy Never 04/12/2023 [facility] Utilities Answer Date Recorded In [...] often do you attend chur ch or zoroastrian services? Never 11/13/2024 Do you belong to any clubs o r organizations such as hoahaoism groups, unions, fraternal or athletic groups, or [...] any time in the past 12 m [facility], were you homeless or living in a fci (including now)? No 11/13/2024 Personal Safety Answer Date Recorded Have you ever been in or are you currently in a harmful physical or emotional relationship or is someone making you feel afraid or unsafe? 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 Author CCM Chronic Pain Care Plan Chronic Care Management Improving( 9:19 AM CDT) Genevieve Sandra, ROBEL Note: Problem: Chronic Pain Goals: 1. Minimize further functional decline 2. Maximize quality of life 3. Control pain Strategies: - Activity/exercise program recommendation - Conservative stepwise pain medicine strategy with multi-disciplinary approach - Recommend healthy lifestyle strategies and compensatory methods as needed Medical Devices Explanted Type Area Electrician Technician Device Identifier Shelf Expiration Date Model / Serial / Lot [employer] Advanix 10fr 7cm Rapid Exchange Temporary Taper Tip Thin Wall 2 [id number] - [id number] Explanted:Qty: 1 on 02/01/2023 at [facility] Stent N/A: Bile Duct [employer] 11/17/2024 [id number] / / [id number] Description:Slipped out of d uct [employer] Stent Biliary Over The Wire 0.035in Gw Comp Self Expanding E Luminexx [id number] Nitinol [id number] - [id number] Implanted:Qty: 1 on 10/26/2024 at [facility] Explanted:Qty: 1 on 11/12/2024 by Cristiano Gallardo MD at [facility] [employer] [id number] 12/12/2026 [id number] / / [id number] Procedures Procedure Name Priority Date/Time Associated Diagnosis [...] ECG 12-LEAD STAT 12/15/2024 8:40 AM CDT [place] CRIT[facility] ILL/INJURED PATIENT INIT 30-74 MIN [...] daily. Electronically signed by: Deven Isaac PA-C Narrative 01/02/2025 2:28 PM CDT EXAMINATION: BILIARY TUBE [...] was obtained. Prior to beginning the procedure, Patterson Protocol was performed to confirm the patient's [...] catheter was then divided and a Bentson wire was advanced through the catheter under fluoroscopic monitoring. The existing catheter was exchanged over the wire for a new 16-Vincentian cope catheter. Limited contrast injection through the [...] was obtained. Prior to beginning the procedure, Patterson Protocol was performed to confirm the patient's [...] The catheter was then divided and a [employer] wire was advanced through the catheter under fluoroscopic monitoring. The existing catheter was exchanged over the wire for a new 16-Vincentian cope catheter. Limited contrast injection through the [...] was obtained. Prior to beginning the procedure, Patterson Protocol was performed to confirm the patient's [...] The catheter was then divided and a [employer] wire was advanced through the catheter under fluoroscopic monitoring. The existing 18 Vincentian catheter was exchanged over the guidewire for an 18 Vincentian sheath and this was used to aspirate [...] the end of the procedure, new 16 Vincentian locking pigtail catheter was placed with its [...] was obtained. Prior to beginning the procedure, Patterson Protocol was performed to confirm the patient's [...] The catheter was then divided and a [employer] wire was advanced through the catheter under fluoroscopic monitoring. The existing 18 Vincentian catheter was exchanged over the guidewire for an 18 Vincentian sheath and this was used to aspirate [...] the end of the procedure, new 16 Vincentian locking pigtail catheter was placed with its [...] signed by: Seun Madrid M.D. Herb CEDILLO IM IR PROCEDURES Fin al Result * IR [...] questions arise, please contact us by calling [phone]. Electronically signed by: Jennifer Perry PA-C Narrative [...] patient. TECHNIQUE: Prior to beginning the procedure, Patterson Protocol was used to confirm the patient's identity and planned procedure. Fluoroscopy time has been recorded in the electronic medical record. Maximum sterile barriers including cap, mask, hand hygiene, sterile gloves, sterile gown, large sterile drape and 2% chlorhexidine for cutaneous antisepsis were used. After obtaining a grease cup filler image, the right upper quadrant 18-Vincentian [place] external biliary catheter was injected with dilute contrast and multiple diagnostic fluoroscopic spot images were obtained. The skin overlying the collection was sterilely prepped, draped and infiltrated with 1% lidocaine. The catheter was then exchanged over a [employer] guidewire for a new 18-Vincentian Haroon catheter with additional sideholes. The Haroon catheter was used to inject 0.9% sodium chloride and then the drain was attached to either wall suction or the Accordion suction bag. These steps were repeated numerous times until over 300 cc mucinous biliary fluid was drained. Ultimately a new 18-Vincentian [place] catheter was exchanged over the wire and [...] patient. TECHNIQUE: Prior to beginning the procedure, Patterson Protocol was used to confirm the patient's identity and planned procedure. Fluoroscopy time has been recorded in the electronic medical record. Maximum sterile barriers including cap, mask, hand hygiene, sterile gloves, sterile gown, large sterile drape and 2% chlorhexidine for cutaneous antisepsis were used. After obtaining a grease cup filler image, the right upper quadrant 18-Vincentian [place] external biliary catheter was injected with dilute contrast and multiple diagnostic fluoroscopic spot images were obtained. The skin overlying the collection was sterilely prepped, draped and infiltrated with 1% lidocaine. The catheter was then exchanged over a [employer] guidewire for a new 18-Vincentian Haroon catheter with additional sideholes. The Haroon catheter was used to inject 0.9% sodium chloride and then the drain was attached to either wall suction or the Accordion suction bag. These steps were repeated numerous times until over 300 cc mucinous biliary fluid was drained. Ultimately a new 18-Vincentian [place] catheter was exchanged over the wire and [...] questions arise, please contact us by calling [phone]. Electronically signed by: Jennifer Perry PA-C us Nicolasa CEDILLO IMKyler IR PROCEDURES Fin al Result * IR Change Biliary Drainage Catheter External Or Internal External (12/20/2024 1:43 PM CDT) Anatomical Region Laterality Modality Body N/A X-Ray Angiograph y 12/20/2024 3:40 PM CDT Impressions 12/20/2024 3:40 PM CDT Successful exchange of 18 Fr [place] catheter in the common bile duct. PLAN: [...] catheter was exchanged for an 18 Fr [place] catheter within the significantly distended common bile [...] was obtained. Prior to beginning the procedure, Patterson Protocol was performed to confirm the patient's identity and the planned procedure. The fluoroscopy time has been recorded in the electronic medical record. Under fluoroscopic guidance, over a Bentson guidewire, the existing 18 Vincentian cope catheter was exchanged for a new 18 Fr [place] catheter. The loop was formed in the [...] Initial images showed a patent 18 Fr [place] catheter with loop still in place in the dilated common bile duct. The final fluoroscopic image demonstrates appropriate positioning of a new 18 Vincentian cope loop within the common bile duct. [...] catheter was exchanged for an 18 Fr [place] catheter within the significantly distended common bile [...] was obtained. Prior to beginning the procedure, Patterson Protocol was performed to confirm the patient's identity and the planned procedure. The fluoroscopy time has been recorded in the electronic medical record. Under fluoroscopic guidance, over a Bentson guidewire, the existing 18 Vincentian cope catheter was exchanged for a new 18 Fr [place] catheter. The loop was formed in the [...] Initial images showed a patent 18 Fr [place] catheter with loop still in place in the dilated common bile duct. The final fluoroscopic image demonstrates appropriate positioning of a new 18 Vincentian cope loop within the common bile duct. IMPRESSION: Successful exchange of 18 Fr [place] catheter in the common bile duct. PLAN: The patient should return once a month for routine external biliary drain which is to be reattached to an accordion suction bag with a flush port to be flushed with 20 cc sterile saline once a day. Electronically signed by: Nicolasa Moreira PA-C Nicolasa CEDILLO IM IR PROCEDURES Fin al Result * Troponin [...] MD LAB BLOOD ORDERABLES Final Result MARTHA [facility] [address] [facility] [place] [address] * XR Chest 1 Vw Portable (If [...] AM - Electronically signed by Loi Frias M.D., JR T: Report ID: [id number] Reading Location: [place] [address] Procedure Note Loi Frias MD - 12/15/2024 [...] - Electronically signed by Loi Frias M.D. T: Report ID: [id number] Reading Location: [id number] Cuauhtemoc Isaac MD IMG XR PROCEDURES Final Re sult * ECG 12 lead (12/15/2024 8:40 AM CDT) Ventricular Rate EKG/Min 97 BPM [facility] Atrial Rate 97 BPM [facility] MN-Interval (MSEC) 152 ms [facility] QRS-Interval (MSEC) 80 ms [facility] QT-Interval (MSEC) 360 ms [facility] QTc 457 ms [facility] P Everest 69 degrees [facility] R Everest 9 degrees [facility] T Everest 73 degrees [facility] Diagnosis Normal sinus rhythm Normal ECG When compared with ECG of 06-AUG-2024 06:37, No significant change was found Confirmed by NEHA RUSSELL M.D. ([id number]) on 12/15/2024 10:52:21 AM [facility] 12/15/2024 8:40 AM CDT 12/15/2024 10:52 AM CDT Cuauhtemoc Isaac MD ECG ORDERABLES Final Resu lt [facility] * [place] CRIT[facility] ILL/INJURED PATIENT INIT 30-74 MIN [...] patient to a continuous cardiac monitored bed. Cuauhtemoc Isaac MD IN CLINIC/BEDSIDE ORDERABL ES [...] BLOOD ORDERABLES Final Result Performing Organization Address [facility] Co de Phone Number MARTHA [address] [place] [address] * (ABNORMAL) eGFR (12/15/2024 8:27 AM CDT) Pathologist [facility] eGFR 34(L) >=60 mL/min/1. 73 m2 Comment: [...] BLOOD ORDERABLES Final Result Performing Organization Address City/[facility]/ZIP Co de Phone Number MARTHA [address] [place] [address] * (ABNORMAL) Differential, auto (12/15/2024 8:27 AM CDT) [facility] Neutrophil abs 2.34 1.50 - 6.50 K/cumm Imm gran abs 0.02 0.00 - 0.10 K/cumm [facility] Lymphocyte abs 0.53(L) 0.80 - 3.30 K/cumm [facility] Monocyte abs 0.45 0.20 - 0.80 K/cumm [facility] Eosinophil abs 0.18 0.00 - 0.50 K/cumm [facility] Basophil abs 0.01 0.00 - 0.10 K/cumm [facility] Neutrophil pct 66.3 % [facility] Comment: Interpretive Data Percent cell count reference ranges are not reported, since discordance with absolute values may lead to misinterpretation of CBC data. Current Interpretive Data was last revised on 2017. Imm gran pct 0.6 % [facility] Comment: Interpretive Data Percent cell count reference ranges are not reported, since discordance with absolute values may lead to misinterpretation of CBC data. Current Interpretive Data was last revised on 2017. Lymphocyte pct 15.0 % [facility] Comment: Interpretive Data Percent cell count reference ranges are not reported, since discordance with absolute values may lead to misinterpretation of CBC data. Current Interpretive Data was last revised on 2017. Monocyte pct 12.7 % [facility] Comment: Interpretive Data Percent cell count reference ranges are not reported, since discordance with absolute values may lead to misinterpretation of CBC data. Current Interpretive Data was last revised on 2017. Eosinophil pct 5.1 % [facility] Comment: Interpretive Data Percent cell count reference ranges are not reported, since discordance with absolute values may lead to misinterpretation of CBC data. Current Interpretive Data was last revised on 2017. Basophil pct 0.3 % [facility] Comment: Interpretive Data Percent cell count reference ranges are not reported, since discordance with absolute values may lead to misinterpretation of CBC data. Current Interpretive Data was last revised on 2017. Blood 12/15/2024 8:27 AM CDT 12/15/2024 8:29 AM CDT us Cuauhtemoc Isaac MD LAB BLOOD ORDERABLES Final Result MARTHA [address] [facility] [place] [address] * (ABNORMAL) CBC with auto differential (12/15/2024 8:27 AM CDT) [facility] WBC 3.53(L) 3.80 - 9.90 K/cumm Hgb 8.7(L) 13.0 - 17.5 g/dL [facility] Hct 28.4(L) 38.9 - 50.3 % [facility] Plt 108(L) 150 - 400 K/cumm [facility] MPV 10.4 9.1 - 12.3 fL [facility] RBC 3.11(L) 4.30 - 5.80 M/cumm [facility] MCV 91.3 81.3 - 96.4 fL [facility] MCH 28.0 27.1 - 33.3 pg [facility] MCHC 30.6(L) 32.3 - 35.7 g/dL [facility] RDW CV 16.9(H) 11.1 - 14.9 % [facility] RDW SD 56.8(H) 35.7 - 48.1 fL [facility] NRBC abs 0.00 0.00 - 0.01 K/cumm [facility] Blood 12/15/2024 8:27 AM CDT 12/15/2024 8:29 AM CDT Cuauhtemoc Isaac MD LAB BLOOD ORDERABLES Final Result [facility] [address] [facility] [place] [address] * (ABNORMAL) Comprehensive metabolic panel (12/15/2024 8:27 AM CDT) [facility] Sodium 141 135 - 145 mmol/L Potassium, pl 4.4 3.3 - 4.9 mmol/L [facility] Chloride 110 97 - 110 mmol/L [facility] CO2 18(L) 22 - 32 mmol/L [facility] Anion gap 13 2 - 15 mmol/L [facility] BUN 27(H) 6 - 25 mg/dL [facility] Creatinine 2.01(H) 0.80 - 1.30 mg/dL [facility] Glucose 98 70 - 199 mg/dL [facility] Comment: Interpretive Data Fasting glucose >/= 126 [...] 2022. Calcium 8.9 8.5 - 10.3 mg/dL [facility] Bilirubin, total 1.1 0.1 - 1.2 mg/dL [facility] Protein, pl 7.0 6.5 - 8.5 g/dL [facility] Albumin 3.7 3.5 - 5.0 g/dL [facility] Alk phos 107 40 - 130 Units/L [facility] ALT 5(L) 7 - 55 Units/L [facility] AST 12 10 - 50 Units/L [facility] Blood 12/15/2024 8:27 AM CDT 12/15/2024 8:29 AM CDT us Cuauhtemoc Isaac MD LAB BLOOD ORDERABLES Final Result [facility]A [facility] [address] [facility] [place] [address] * IR Change Biliary Drainage Catheter External [...] leakage. He currently has been a 16 Vincentian Haroon internal/external biliary drain which is now [...] was obtained. Prior to beginning the procedure, Patterson Protocol was performed to confirm the patient's identity and the planned procedure. The fluoroscopy time has been recorded in the electronic medical record. The patient was positioned on the fluoroscopy table and a grease cup filler image obtained. The existing port and catheter was exchanged over a guidewire for a 10 Vincentian sheath and contrast was injected to side [...] more sense long-term. Therefore, a new 16 Vincentian Haroon catheter was used to irrigate the [...] was made. Over a guidewire, an 18 Vincentian cope catheter was inserted into the common [...] and then to outpatient recovery FINDINGS: A grease cup filler image demonstrates many of the sideholes of [...] image demonstrates appropriate positioning of an 18 Vincentian cope loop within the common bile duct [...] leakage. He currently has been a 16 Vincentian Haroon internal/external biliary drain which is now [...] was obtained. Prior to beginning the procedure, Patterson Protocol was performed to confirm the patient's identity and the planned procedure. The fluoroscopy time has been recorded in the electronic medical record. The patient was positioned on the fluoroscopy table and a grease cup filler image obtained. The existing port and catheter was exchanged over a guidewire for a 10 Vincentian sheath and contrast was injected to side [...] more sense long-term. Therefore, a new 16 Vincentian Haroon catheter was used to irrigate the [...] was made. Over a guidewire, an 18 Vincentian cope catheter was inserted into the common [...] and then to outpatient recovery FINDINGS: A grease cup filler image demonstrates many of the sideholes of [...] image demonstrates appropriate positioning of an 18 Vincentian cope loop within the common bile duct [...] day. Electronically signed by: Herb Francis M.D. us Jennifer CEDILLO IMG IR PROCEDURES Final Result * (ABNORMAL) eGFR (11/15/2024 2:55 PM CDT) eGFR 37(L) >=60 mL/min/1. 73 m2 Comment: [...] 2:55 PM CDT 11/15/2024 3:14 PM CDT us Gigi Jackman MD LAB BLOOD NIKHIL MEYERS Final Result [facility] [address] [place] [address] * (ABNORMAL) Comprehensive metabolic panel (11/15/2024 2:55 PM CDT) Sodium 141 135 - 145 mmol/L Potassium, pl 4.2 3.3 - 4.9 mmol/L [facility] Chloride 113(H) 97 - 110 mmol/L [facility] CO2 17(L) 22 - 32 mmol/L [facility] Anion gap 11 2 - 15 mmol/L [facility] BUN 41(H) 6 - 25 mg/dL [facility] Creatinine 1.89(H) 0.80 - 1.30 mg/dL [facility] Glucose 98 70 - 199 mg/dL [facility] Comment: Interpretive Data Fasting glucose >/= 126 [...] 2022. Calcium 8.8 8.5 - 10.3 mg/dL [facility] Bilirubin, total 2.5(H) 0.1 - 1.2 mg/dL [facility] Protein, pl 6.3(L) 6.5 - 8.5 g/dL [facility] Albumin 2.6(L) 3.5 - 5.0 g/dL [facility] Alk phos 221(H) 40 - 130 Units/L [facility] ALT 21 7 - 55 Units/L [facility] AST 18 10 - 50 Units/L [facility] Blood 11/15/2024 2:55 PM CDT 11/15/2024 3:14 PM CDT us Gigi Jackman MD LAB BLOOD NIKHIL MEYERS Final Result [facility] [address] Department [place] [address] * (ABNORMAL) eGFR (11/13/2024 8:30 AM CDT) [...] Gallardo MD LAB BLOOD ORDERABLES Final Result [facility] [address] Department [place] [address] * (ABNORMAL) Differential, auto (11/13/2024 8:30 AM CDT) Neutrophil abs 5.33 1.50 - 6.50 K/cumm Imm gran abs 0.28(H) 0.00 - 0.10 K/cumm [facility] Lymphocyte abs 0.55(L) 0.80 - 3.30 K/cumm [facility] Monocyte abs 0.66 0.20 - 0.80 K/cumm [facility] Eosinophil abs 0.23 0.00 - 0.50 K/cumm [facility] Basophil abs 0.02 0.00 - 0.10 K/cumm [facility] Neutrophil pct 75.3 % [facility] Comment: Interpretive Data Percent cell count reference ranges are not reported, since discordance with absolute values may lead to misinterpretation of CBC data. Current Interpretive Data was last revised on 2017. Imm gran pct 4.0 % [facility] Comment: Interpretive Data Percent cell count reference ranges are not reported, since discordance with absolute values may lead to misinterpretation of CBC data. Current Interpretive Data was last revised on 2017. Lymphocyte pct 7.8 % [facility] Comment: Interpretive Data Percent cell count reference ranges are not reported, since discordance with absolute values may lead to misinterpretation of CBC data. Current Interpretive Data was last revised on 2017. Monocyte pct 9.3 % [facility] Comment: Interpretive Data Percent cell count reference ranges are not reported, since discordance with absolute values may lead to misinterpretation of CBC data. Current Interpretive Data was last revised on 2017. Eosinophil pct 3.3 % [facility] Comment: Interpretive Data Percent cell count reference ranges are not reported, since discordance with absolute values may lead to misinterpretation of CBC data. Current Interpretive Data was last revised on 2017. Basophil pct 0.3 % [facility] Comment: Interpretive Data Percent cell count reference ranges are not reported, since discordance with absolute values may lead to misinterpretation of CBC data. Current Interpretive Data was last revised on 2017. Blood 11/13/2024 8:30 AM CDT 11/13/2024 8:37 AM CDT us Cristiano Gallardo MD LAB BLOOD ORDERABLES Final Result [facility] [address] Department [place] [address] * (ABNORMAL) CBC with auto differential (11/13/2024 8:30 AM CDT) WBC 7.07 3.80 - 9.90 K/cumm Hgb 8.0(L) 13.0 - 17.5 g/dL [facility] Hct 25.9(L) 38.9 - 50.3 % [facility] Plt 237 150 - 400 K/cumm [facility] MPV 10.7 9.1 - 12.3 fL [facility] RBC 2.87(L) 4.30 - 5.80 M/cumm [facility] MCV 90.2 81.3 - 96.4 fL [facility] MCH 27.9 27.1 - 33.3 pg [facility] MCHC 30.9(L) 32.3 - 35.7 g/dL [facility] RDW CV 17.2(H) 11.1 - 14.9 % [facility] RDW SD 55.9(H) 35.7 - 48.1 fL [facility] NRBC abs 0.00 0.00 - 0.01 K/cumm [facility] Blood 11/13/2024 8:30 AM CDT 11/13/2024 8:37 AM CDT us Cristiano Gallardo MD LAB BLOOD ORDERABLES Final Result [facility] [address] Department [place] [address] * (ABNORMAL) Comprehensive metabolic panel (11/13/2024 8:30 AM CDT) Sodium 141 135 - 145 mmol/L Potassium, pl 4.3 3.3 - 4.9 mmol/L [facility] Chloride 111(H) 97 - 110 mmol/L [facility] CO2 16(L) 22 - 32 mmol/L [facility] Anion gap 14 2 - 15 mmol/L [facility] BUN 50(H) 6 - 25 mg/dL [facility] Creatinine 2.44(H) 0.80 - 1.30 mg/dL [facility] Glucose 108 70 - 199 mg/dL [facility] Comment: Interpretive Data Fasting glucose >/= 126 [...] 2022. Calcium 8.7 8.5 - 10.3 mg/dL [facility] Bilirubin, total 3.3(H) 0.1 - 1.2 mg/dL [facility] Protein, pl 6.5 6.5 - 8.5 g/dL [facility] Albumin 2.7(L) 3.5 - 5.0 g/dL [facility] Alk phos 269(H) 40 - 130 Units/L [facility] ALT 26 7 - 55 Units/L [facility] AST 23 10 - 50 Units/L [facility] Blood 11/13/2024 8:30 AM CDT 11/13/2024 8:37 AM CDT us Cristiano Gallardo MD LAB BLOOD ORDERABLES Final Result [facility] [address] Department [place] [address] * (ABNORMAL) Urinalysis reflex to microscopic and culture Urine (11/12/2024 4:03 PM CDT) Color, ur Yellow Yellow Clarity, ur Clear Clear [facility] Specific gravity, ur 1.018 1.003 - 1.030 [facility] pH, urine 6.0 [facility] Comment: Interpretive Data U rine pH is affected by diet, medications, systemic acid-base disturbances, and renal tubular function. pH may affect urinary stone formation. For example, urine pH below 6.0 may help reduce the tendency for calcium phosphate stones and pH greater than 6.0 may reduce the tendency for uric acid stone formation. Source: [facility] Current Interpretive Data was last revised on 2017 Protein, ur ql 1+(A) Negative [facility] Glucose, ur ql Negative Negative [facility] Ketones, ur Negative Negative [facility] Bilirubin, ur Negative Negative [facility] Blood, ur 3+(A) Negative [facility] Urobilinogen, ur <2.0 <2.0 mg/dL [facility] Nitrite, ur Negative Negative [facility] Leukocyte esterase, ur Negative Negative [facility] UA reflex comment Reflex to microscopic UA will be performed. [facility] Urine 11/12/2024 4:03 PM CDT 11/12/2024 4:03 PM CDT Narrative [facility] - 11/12/2024 4:10 PM CDT If patient unable to urinate, straight cath us Thor Herr MD LAB MICROBIOLOGY - GENERAL O RDERABLES Final Result Performing Organization Address [facility] Co de Phone Number [facility] [address] Department of [place], [place] [id number] * (ABNORMAL) Urinalysis, microscopic only (11/12/2024 4:03 PM CDT) WBC, ur 6-10(A) 0 - 5 /HPF RBC, ur >50(A) 0 - 2 /HPF [facility] Epithelial cells, squamous, ur 1-5 0 - 5 /HPF [facility] Bacteria, ur Trace(A) [facility] Culture Reflex Comment Reflex conditions for urine culture (WBC >10) not met. [facility] Urine 11/12/2024 4:03 PM CDT 11/12/2024 4:07 PM CDT Salinas Pro MD LAB URINE ORDERABLES Final R esult Performing Organization Address [facility] de Phone Number [facility] [address] [place] [address] * [place] Fluoroscopy < 1 Hour (11/12/2024 2:50 PM CDT) Narrative [facility] - 11/12/2024 2:51 PM CDT The images from this study are not interpreted by Radiology. Please refer to the physician's procedure / OR operative note. us Cristiano Gallardo MD IMG FLUOROSCOPY PROCEDURES Final Result Performing Organization Address [facility] Co de Phone Number [facility] * Small bowel enteroscopy (11/12/2024 2:28 PM CDT) Anatomical Region Laterality Modality Other Narrative Procedure Note Cristiano Gallardo MD - 11/12/2024 2:28 PM CDT ENDOSCOPY LAB Patient Name: Lee Cotto Procedure Date: 11/12/2024 2:28 PM Admit Type: Inpatient Room: [facility] Date of : 1950 Instrument [...] the days following this procedure please call [phone] ask for my nurse, Vianey Benitez. After hours and evenings please call [phone] and speak to theGI fellow patent prosecution paralegal. Please tell the fellow that Dr. Gallardo did your procedure and that you were instructed to have the fellow call me or thephysician covering for me to discuss the management of your condition. If you have an urgent problem, please goto the nearest emergency room and have the ER doctorcall my office during the day or [facility] transfer ([phone]) center after hours and weekends to arrange [...] was obtained. Prior to beginning the procedure, Patterson Protocol was performed to confirm the patient's [...] advanced through the catheter under fluoroscopic monitoring. 18-Vincentian sheath was placed. A 2nd guidewire was then placed in the proximal jejunum. Over this guidewire, a 14-Vincentian suction catheter was used to aspirate mucosal debris within the CBD stent and bile ducts. Repeat cholangiogram was performed. Subsequently over the guidewire, an 18-Vincentian Haroon internal/external catheter was advanced with its [...] was obtained. Prior to beginning the procedure, Patterson Protocol was performed to confirm the patient's [...] advanced through the catheter under fluoroscopic monitoring. 18-Vincentian sheath was placed. A 2nd guidewire was then placed in the proximal jejunum. Over this guidewire, a 14-Vincentian suction catheter was used to aspirate mucosal debris within the CBD stent and bile ducts. Repeat cholangiogram was performed. Subsequently over the guidewire, an 18-Vincentian Haroon internal/external catheter was advanced with its [...] decreases. Electronically signed by: Mik Hodge MD us Dayo Larsen DO IMG IR PROCEDURES Alesia [...] MD LAB BLOOD ORDERABLES Final Resu lt [facility] [address] Department [place] [address] * (ABNORMAL) Differential, auto (11/12/2024 9:11 AM CDT) Neutrophil abs 5.49 1.50 - 6.50 K/cumm Imm gran abs 0.41(H) 0.00 - 0.10 K/cumm [facility] Lymphocyte abs 0.56(L) 0.80 - 3.30 K/cumm [facility] Monocyte abs 0.79 0.20 - 0.80 K/cumm [facility] Eosinophil abs 0.17 0.00 - 0.50 K/cumm [facility] Basophil abs 0.03 0.00 - 0.10 K/cumm [facility] Neutrophil pct 73.7 % [facility] Comment: Interpretive Data Percent cell count reference ranges are not reported, since discordance with absolute values may lead to misinterpretation of CBC data. Current Interpretive Data was last revised on 2017. Imm gran pct 5.5 % [facility] Comment: Interpretive Data Percent cell count reference ranges are not reported, since discordance with absolute values may lead to misinterpretation of CBC data. Current Interpretive Data was last revised on 2017. Lymphocyte pct 7.5 % [facility] Comment: Interpretive Data Percent cell count reference ranges are not reported, since discordance with absolute values may lead to misinterpretation of CBC data. Current Interpretive Data was last revised on 2017. Monocyte pct 10.6 % [facility] Comment: Interpretive Data Percent cell count reference ranges are not reported, since discordance with absolute values may lead to misinterpretation of CBC data. Current Interpretive Data was last revised on 2017. Eosinophil pct 2.3 % [facility] Comment: Interpretive Data Percent cell count reference ranges are not reported, since discordance with absolute values may lead to misinterpretation of CBC data. Current Interpretive Data was last revised on 2017. Basophil pct 0.4 % [facility] Comment: Interpretive Data Percent cell count reference ranges are not reported, since discordance with absolute values may lead to misinterpretation of CBC data. Current Interpretive Data was last revised on 2017. Blood 11/12/2024 9:11 AM CDT 11/12/2024 9:45 AM CDT us Nemo Blanco MD LAB BLOOD ORDERABLES Final Resu lt [facility] [address] Department [place] [address] * (ABNORMAL) CBC with auto differential (11/12/2024 9:11 AM CDT) WBC 7.45 3.80 - 9.90 K/cumm Hgb 7.4(L) 13.0 - 17.5 g/dL [facility] Hct 23.9(L) 38.9 - 50.3 % [facility] Plt 257 150 - 400 K/cumm [facility] MPV 11.8 9.1 - 12.3 fL [facility] RBC 2.67(L) 4.30 - 5.80 M/cumm [facility] MCV 89.5 81.3 - 96.4 fL [facility] MCH 27.7 27.1 - 33.3 pg [facility] MCHC 31.0(L) 32.3 - 35.7 g/dL [facility] RDW CV 17.1(H) 11.1 - 14.9 % [facility] RDW SD 54.5(H) 35.7 - 48.1 fL [facility] NRBC abs 0.00 0.00 - 0.01 K/cumm [facility] Blood 11/12/2024 9:11 AM CDT 11/12/2024 9:45 AM CDT us Nemo Blanco MD LAB BLOOD ORDERABLES Final Resu lt Performing Organization Address [facility] de Phone Number [facility] [address] [place] [address] * Magnesium (11/12/2024 9:11 AM CDT) [facility] Magnesium 1.6 1.4 - 2.5 mg/dL Blood 11/12/2024 9:11 AM CDT 11/12/2024 9:45 AM CDT Nemo Blanco MD LAB BLOOD ORDERABLES Final Resu lt Performing Organization Address [facility] de Phone Number [facility] [address] [place] [address] * (ABNORMAL) Comprehensive metabolic panel (11/12/2024 9:11 AM CDT) [facility] Sodium 143 135 - 145 mmol/L Potassium, pl 4.6 3.3 - 4.9 mmol/L [facility] Chloride 111(H) 97 - 110 mmol/L [facility] CO2 18(L) 22 - 32 mmol/L [facility] Anion gap 14 2 - 15 mmol/L [facility] BUN 54(H) 6 - 25 mg/dL [facility] Creatinine 2.62(H) 0.80 - 1.30 mg/dL [facility] Glucose 81 70 - 199 mg/dL [facility] Comment: Interpretive Data Fasting glucose >/= 126 [...] 2022. Calcium 9.0 8.5 - 10.3 mg/dL [facility] Bilirubin, total 3.8(H) 0.1 - 1.2 mg/dL [facility] Protein, pl 6.5 6.5 - 8.5 g/dL [facility] Albumin 2.5(L) 3.5 - 5.0 g/dL [facility] Alk phos 298(H) 40 - 130 Units/L [facility] ALT 26 7 - 55 Units/L [facility] AST 25 10 - 50 Units/L [facility] Blood 11/12/2024 9:11 AM CDT 11/12/2024 9:45 AM CDT us Nemo Blanco MD LAB BLOOD ORDERABLES Final Resu lt [facility] [address] [place] [address] * Transfuse RBC (11/11/2024 9:14 PM CDT) Blood us Ivon Menjivar [employer] BLOOD TRANSFUSION ORDERA BLES Final Result Performing Organization Address City/[facility]/ZIP Co de Phone Number [facility] [address] [place] [address] * CT Abdomen Pelvis W Contrast (11/11/2024 [...] lymphadenopathy For the purposes of quality assurance tech, this study was initially interpreted by teleradiology. [...] lymphadenopathy For the purposes of quality assurance tech, this study was initially interpreted by teleradiology. There is no significant discrepancy. Electronically signed by: Keri Valladares M.D. Ivon Menjivar NP IMG CT PROCEDURES Final Result * Type and screen (11/11/2024 4:28 PM CDT) Vanessa, indirect Negative ABO Rh A Positive [facility] Blood 11/11/2024 4:28 PM CDT 11/11/2024 4:42 PM CDT Narrative [facility] - 11/11/2024 5:18 PM CDT Has the patient had Daratumumab or Isatuximab in the past 6 months?->Unknown Ivon Menjivar NP LAB BLOOD BANK TEST NIKHIL MEYERS Final Result [facility] [address] Department [place] [address] * Prepare RBC: 1 Units (11/11/2024 4:05 PM CDT) Product code [id number] Unit Number [id number] [facility] Product Blood Type APOS [facility] Dispense Status PRESUMED TRANSFUSED [facility] Blood 11/11/2024 4:05 PM CDT Narrative [facility] - 11/12/2024 10:20 AM CDT Are special requirements needed? (All products are leukoreduced and CMV- safe)- >No Date required:-[id number] LRRBC # of [id number] Reasons:-Hgb <7 g/dL} Ivon Menjivar NP BLOOD BANK PRODUCT ORDER OBED Final Result Performing Organization Address [facility] Co de Phone Number [facility] [address] Department [place], [place] [id number] * Sepsis Lactate w/ Reflex (11/11/2024 2:39 PM CDT) Pathologist [facility] Sepsis Lactate 1.5 0.7 - 2.0 mmol/L Blood 11/11/2024 2:39 PM CDT 11/11/2024 2:44 PM CDT Thor Herr MD LAB BLOOD ORDERABLES Final R esult Performing Organization Address [facility] Co de Phone Number [facility] [address] Department of [place], [place] [id number] * (ABNORMAL) eGFR (11/11/2024 2:39 PM CDT) Pathologist [facility] eGFR 24(L) >=60 mL/min/1. 73 m2 Comment: [...] MD LAB BLOOD ORDERABLES Final R esult [facility] [address] Department [place] [address] * (ABNORMAL) Differential, auto (11/11/2024 2:39 PM CDT) Neutrophil abs 6.20 1.50 - 6.50 K/cumm Imm gran abs 0.26(H) 0.00 - 0.10 K/cumm [facility] Lymphocyte abs 0.55(L) 0.80 - 3.30 K/cumm [facility] Monocyte abs 0.79 0.20 - 0.80 K/cumm [facility] Eosinophil abs 0.20 0.00 - 0.50 K/cumm [facility] Basophil abs 0.03 0.00 - 0.10 K/cumm [facility] Neutrophil pct 77.3 % [facility] Comment: Interpretive Data Percent cell count reference ranges are not reported, since discordance with absolute values may lead to misinterpretation of CBC data. Current Interpretive Data was last revised on 2017. Imm gran pct 3.2 % [facility] Comment: Interpretive Data Percent cell count reference ranges are not reported, since discordance with absolute values may lead to misinterpretation of CBC data. Current Interpretive Data was last revised on 2017. Lymphocyte pct 6.8 % [facility] Comment: Interpretive Data Percent cell count reference ranges are not reported, since discordance with absolute values may lead to misinterpretation of CBC data. Current Interpretive Data was last revised on 2017. Monocyte pct 9.8 % [facility] Comment: Interpretive Data Percent cell count reference ranges are not reported, since discordance with absolute values may lead to misinterpretation of CBC data. Current Interpretive Data was last revised on 2017. Eosinophil pct 2.5 % [facility] Comment: Interpretive Data Percent cell count reference ranges are not reported, since discordance with absolute values may lead to misinterpretation of CBC data. Current Interpretive Data was last revised on 2017. Basophil pct 0.4 % [facility] Comment: Interpretive Data Percent cell count reference ranges are not reported, since discordance with absolute values may lead to misinterpretation of CBC data. Current Interpretive Data was last revised on 2017. Blood 11/11/2024 2:39 PM CDT 11/11/2024 2:53 PM CDT Thor Herr MD LAB BLOOD ORDERABLES Final R esult [facility] [address] [place] [address] * (ABNORMAL) CBC with auto differential (11/11/2024 2:39 PM CDT) WBC 8.03 3.80 - 9.90 K/cumm Hgb 6.5(L) 13.0 - 17.5 g/dL [facility] Hct 20.8(L) 38.9 - 50.3 % [facility] Plt 289 150 - 400 K/cumm [facility] MPV 11.7 9.1 - 12.3 fL [facility] RBC 2.37(L) 4.30 - 5.80 M/cumm [facility] MCV 87.8 81.3 - 96.4 fL [facility] MCH 27.4 27.1 - 33.3 pg [facility] MCHC 31.3(L) 32.3 - 35.7 g/dL [facility] RDW CV 17.7(H) 11.1 - 14.9 % [facility] RDW SD 55.3(H) 35.7 - 48.1 fL [facility] NRBC abs 0.00 0.00 - 0.01 K/cumm [facility] Blood 11/11/2024 2:39 PM CDT 11/11/2024 2:53 PM CDT Thor Herr MD LAB BLOOD ORDERABLES Final R esult [facility] [address] Department [place] [address] * (ABNORMAL) Comprehensive metabolic panel (11/11/2024 2:39 PM CDT) Sodium 141 135 - 145 mmol/L Potassium, pl 4.3 3.3 - 4.9 mmol/L [facility] Chloride 107 97 - 110 mmol/L [facility] CO2 17(L) 22 - 32 mmol/L [facility] Anion gap 17(H) 2 - 15 mmol/L [facility] BUN 56(H) 6 - 25 mg/dL [facility] Creatinine 2.70(H) 0.80 - 1.30 mg/dL [facility] Glucose 107 70 - 199 mg/dL [facility] Comment: Interpretive Data Fasting glucose >/= 126 [...] 2022. Calcium 8.8 8.5 - 10.3 mg/dL [facility] Bilirubin, total 4.5(H) 0.1 - 1.2 mg/dL [facility] Protein, pl 6.9 6.5 - 8.5 g/dL [facility] Albumin 3.0(L) 3.5 - 5.0 g/dL [facility] Alk phos 309(H) 40 - 130 Units/L [facility] ALT 30 7 - 55 Units/L [facility] AST 25 10 - 50 Units/L [facility] Blood 11/11/2024 2:39 PM CDT 11/11/2024 2:53 PM CDT us Thor Herr MD LAB BLOOD ORDERABLES Final R esult [facility] [address] [place] [address] * Interventional Radiology Follow-up (10/31/2024 3:36 PM CDT) Anatomical Region Laterality Modality N/A X-Ray Angiograph y 11/01/2024 7:30 AM CDT Impressions 11/01/2024 7:30 AM CDT The patient was seen in holding. [place] bag was removed. Two red caps placed [...] IMPRESSION: The patient was seen in holding. [place] bag was removed. Two red caps placed [...] MD LAB BLOOD ORDERABLES Final Resul t [facility] [address] [place] [address] * (ABNORMAL) Differential, auto (10/28/2024 5:46 AM CDT) Neutrophil abs 7.94(H) 1.50 - 6.50 K/cumm Imm gran abs 0.16(H) 0.00 - 0.10 K/cumm [facility] Lymphocyte abs 0.65(L) 0.80 - 3.30 K/cumm [facility] Monocyte abs 0.77 0.20 - 0.80 K/cumm [facility] Eosinophil abs 0.20 0.00 - 0.50 K/cumm [facility] Basophil abs 0.02 0.00 - 0.10 K/cumm [facility] Neutrophil pct 81.5 % [facility] Comment: Interpretive Data Percent cell count reference ranges are not reported, since discordance with absolute values may lead to misinterpretation of CBC data. Current Interpretive Data was last revised on 2017. Imm gran pct 1.6 % [facility] Comment: Interpretive Data Percent cell count reference ranges are not reported, since discordance with absolute values may lead to misinterpretation of CBC data. Current Interpretive Data was last revised on 2017. Lymphocyte pct 6.7 % [facility] Comment: Interpretive Data Percent cell count reference ranges are not reported, since discordance with absolute values may lead to misinterpretation of CBC data. Current Interpretive Data was last revised on 2017. Monocyte pct 7.9 % [facility] Comment: Interpretive Data Percent cell count reference ranges are not reported, since discordance with absolute values may lead to misinterpretation of CBC data. Current Interpretive Data was last revised on 2017. Eosinophil pct 2.1 % [facility] Comment: Interpretive Data Percent cell count reference ranges are not reported, since discordance with absolute values may lead to misinterpretation of CBC data. Current Interpretive Data was last revised on 2017. Basophil pct 0.2 % [facility] Comment: Interpretive Data Percent cell count reference ranges are not reported, since discordance with absolute values may lead to misinterpretation of CBC data. Current Interpretive Data was last revised on 2017. Blood 10/28/2024 5:46 AM CDT 10/28/2024 6:25 AM CDT us Jessee Fletcher MD LAB BLOOD ORDERABLES Final Resul t [facility] [address] Department [place] [address] * (ABNORMAL) CBC with auto differential (10/28/2024 5:46 AM CDT) [facility] WBC 9.74 3.80 - 9.90 K/cumm Hgb 7.2(L) 13.0 - 17.5 g/dL [facility] Hct 23.8(L) 38.9 - 50.3 % [facility] Plt 204 150 - 400 K/cumm [facility] MPV 10.4 9.1 - 12.3 fL [facility] RBC 2.59(L) 4.30 - 5.80 M/cumm [facility] MCV 91.9 81.3 - 96.4 fL [facility] MCH 27.8 27.1 - 33.3 pg [facility] MCHC 30.3(L) 32.3 - 35.7 g/dL [facility] RDW CV 15.8(H) 11.1 - 14.9 % [facility] RDW SD 53.4(H) 35.7 - 48.1 fL [facility] NRBC abs 0.00 0.00 - 0.01 K/cumm [facility] Blood 10/28/2024 5:46 AM CDT 10/28/2024 6:25 AM CDT us Jessee Fletcher MD LAB BLOOD ORDERABLES Final Resul t [facility] [address] Department [place] [address] * (ABNORMAL) Comprehensive metabolic panel (10/28/2024 5:46 AM CDT) [facility] Sodium 142 135 - 145 mmol/L Potassium, pl 3.5 3.3 - 4.9 mmol/L [facility] Chloride 110 97 - 110 mmol/L [facility] CO2 22 22 - 32 mmol/L [facility] Anion gap 10 2 - 15 mmol/L [facility] BUN 30(H) 6 - 25 mg/dL [facility] Creatinine 1.81(H) 0.80 - 1.30 mg/dL [facility] Glucose 81 70 - 199 mg/dL [facility] Comment: Interpretive Data Fasting glucose >/= 126 [...] 2022. Calcium 8.8 8.5 - 10.3 mg/dL [facility] Bilirubin, total 1.5(H) 0.1 - 1.2 mg/dL [facility] Protein, pl 5.9(L) 6.5 - 8.5 g/dL [facility] Albumin 2.5(L) 3.5 - 5.0 g/dL [facility] Alk phos 90 40 - 130 Units/L [facility] ALT 9 7 - 55 Units/L [facility] AST 13 10 - 50 Units/L [facility] Blood 10/28/2024 5:46 AM CDT 10/28/2024 6:25 AM CDT Jessee Fletcher MD LAB BLOOD ORDERABLES Final Resul t Performing Organization Address [facility] Co de Phone Number [facility] [address] [place] [address] * Aerobic culture and gram stain Sputum, induced Sputum (10/27/2024 6:52 AM CDT) Direct Specimen Exam Stain: No squamous epithelial cells seen. No polymorphonuclear leukocytes seen. No organisms seen. Report Final Report: Light growth normal joyce [facility] Sputum, induced (Sputum) 10/27/2024 6:52 AM CDT 10/27/2024 7:18 AM CDT Jerald Maria MD LAB MICROBIOLOGY - GENERAL ORDER BOED Final Result Performing Organization Address City/[facility]/ZIP Co de Phone Number [facility] [address] [place] [address] * (ABNORMAL) Urinalysis reflex to microscopic and culture Urine, clean voided (10/27/2024 6:37 AM CDT) Color, ur Yellow Yellow Clarity, ur Clear Clear [facility] Specific gravity, ur 1.018 1.003 - 1.030 [facility] pH, urine 6.0 [facility] Comment: Interpretive Data U rine pH is affected by diet, medications, systemic acid-base disturbances, and renal tubular function. pH may affect urinary stone formation. For example, urine pH below 6.0 may help reduce the tendency for calcium phosphate stones and pH greater than 6.0 may reduce the tendency for uric acid stone formation. Source: [facility] Current Interpretive Data was last revised on 2017 Protein, ur ql 1+(A) Negative [facility] Glucose, ur ql Negative Negative [facility] Ketones, ur Negative Negative [facility] Bilirubin, ur Negative Negative [facility] Blood, ur Negative Negative [facility] Urobilinogen, ur <2.0 <2.0 mg/dL [facility] Nitrite, ur Negative Negative [facility] Leukocyte esterase, ur Negative Negative [facility] UA reflex comment Reflex to microscopic UA will be performed. [facility] Urine, clean voided 10/27/2024 6:37 AM CDT 10/27/2024 6:37 AM CDT Jerald Maria MD LAB MICROBIOLOGY - GENERAL ORDER OBED Final Result [facility] [address] Department [place] [address] * Sodium, urine, random (10/27/2024 6:37 AM CDT) Sodium, ur 87 mmol/L Comment: Interpretive Data No reference range established. Current interpretive data was last revised 2018. Urine 10/27/2024 6:37 AM CDT 10/27/2024 6:37 AM CDT Jerald Maria MD LAB URINE ORDERABLES Final Resul t Performing Organization Address [facility] Co de Phone Number [facility] [address] Department [place] [address] * Creatinine, urine, random (10/27/2024 6:37 AM CDT) Creatinine Ur 82.8 mg/dL Comment: Interpretive Data No reference range established. Current interpretive data was last revised 2018. Urine 10/27/2024 6:37 AM CDT 10/27/2024 6:37 AM CDT Jerald Maria MD LAB URINE ORDERABLES Final Resul t Performing Organization Address [facility] de Phone Number [facility] [address] Department Laboratories [place], [place] [id number] * (ABNORMAL) Urinalysis, microscopic only (10/27/2024 6:37 AM CDT) WBC, ur 0-5 0 - 5 /HPF RBC, ur 0-2 0 - 2 /HPF [facility] Epithelial cells, squamous, ur 1-5 0 - 5 /HPF [facility] Mucous, ur Present(A) [facility] Culture Reflex Comment Reflex conditions for urine culture (WBC >10) not met. [facility] Urine, clean voided 10/27/2024 6:37 AM CDT 10/27/2024 6:37 AM CDT Jerald Maria MD LAB URINE ORDERABLES Final Resul t Performing Organization Address [facility] de Phone Number [facility] [address] Department of Laboratories [place], [place] [id number] * Strep pneumoniae antigen, urine Urine (10/27/2024 [...] AM CDT 10/27/2024 6:44 AM CDT Jerald aMria MD LAB MICROBIOLOGY - GENERAL ORDER OBED Final Result Performing Organization Address [facility]/ZIP Co de Phone Number [facility] [address] [place], [place] [id number] * Legionella antigen Urine (10/27/2024 6:33 AM CDT) Legionella Ag Negative Negative Comment: Interpretive Data This test detects only Legionella pneumophila serogroup 1 antigen. Current interpretive data was last revised on 2019. Urine 10/27/2024 6:33 AM CDT 10/27/2024 6:44 AM CDT Jerald Maria MD LAB MICROBIOLOGY - GENERAL ORDER OBED Final Result Performing Organization Address [facility] Co de Phone Number [facility] [address] [place] [address] * (ABNORMAL) eGFR (10/27/2024 6:11 AM CDT) [...] MD LAB BLOOD ORDERABLES Final Resul t [facility] [address] Department [place] [address] * (ABNORMAL) Differential, auto (10/27/2024 6:11 AM CDT) Neutrophil abs 7.14(H) 1.50 - 6.50 K/cumm Imm gran abs 0.16(H) 0.00 - 0.10 K/cumm [facility] Lymphocyte abs 0.50(L) 0.80 - 3.30 K/cumm [facility] Monocyte abs 0.71 0.20 - 0.80 K/cumm [facility] Eosinophil abs 0.21 0.00 - 0.50 K/cumm [facility] Basophil abs 0.03 0.00 - 0.10 K/cumm [facility] Neutrophil pct 81.7 % [facility] Comment: Interpretive Data Percent cell count reference ranges are not reported, since discordance with absolute values may lead to misinterpretation of CBC data. Current Interpretive Data was last revised on 2017. Imm gran pct 1.8 % [facility] Comment: Interpretive Data Percent cell count reference ranges are not reported, since discordance with absolute values may lead to misinterpretation of CBC data. Current Interpretive Data was last revised on 2017. Lymphocyte pct 5.7 % [facility] Comment: Interpretive Data Percent cell count reference ranges are not reported, since discordance with absolute values may lead to misinterpretation of CBC data. Current Interpretive Data was last revised on 2017. Monocyte pct 8.1 % [facility] Comment: Interpretive Data Percent cell count reference ranges are not reported, since discordance with absolute values may lead to misinterpretation of CBC data. Current Interpretive Data was last revised on 2017. Eosinophil pct 2.4 % [facility] Comment: Interpretive Data Percent cell count reference ranges are not reported, since discordance with absolute values may lead to misinterpretation of CBC data. Current Interpretive Data was last revised on 2017. Basophil pct 0.3 % [facility] Comment: Interpretive Data Percent cell count reference ranges are not reported, since discordance with absolute values may lead to misinterpretation of CBC data. Current Interpretive Data was last revised on 2017. Blood 10/27/2024 6:11 AM CDT 10/27/2024 6:24 AM CDT us Jessee Fletcher MD LAB BLOOD ORDERABLES Final Resul t [facility] [address] Department [place] [address] * (ABNORMAL) CBC with auto differential (10/27/2024 6:11 AM CDT) WBC 8.75 3.80 - 9.90 K/cumm Hgb 7.6(L) 13.0 - 17.5 g/dL [facility] Hct 24.4(L) 38.9 - 50.3 % [facility] Plt 202 150 - 400 K/cumm [facility] MPV 10.9 9.1 - 12.3 fL [facility] RBC 2.74(L) 4.30 - 5.80 M/cumm [facility] MCV 89.1 81.3 - 96.4 fL [facility] MCH 27.7 27.1 - 33.3 pg [facility] MCHC 31.1(L) 32.3 - 35.7 g/dL [facility] RDW CV 15.9(H) 11.1 - 14.9 % [facility] RDW SD 51.7(H) 35.7 - 48.1 fL [facility] NRBC abs 0.00 0.00 - 0.01 K/cumm [facility] Blood 10/27/2024 6:11 AM CDT 10/27/2024 6:24 AM CDT us Jessee Fletcher MD LAB BLOOD ORDERABLES Final Resul t [facility] [address] Department [place] [address] * (ABNORMAL) Comprehensive metabolic panel (10/27/2024 6:11 AM CDT) Sodium 145 135 - 145 mmol/L Potassium, pl 3.4 3.3 - 4.9 mmol/L [facility] Chloride 108 97 - 110 mmol/L [facility] CO2 24 22 - 32 mmol/L [facility] Anion gap 13 2 - 15 mmol/L [facility] BUN 28(H) 6 - 25 mg/dL [facility] Creatinine 1.70(H) 0.80 - 1.30 mg/dL [facility] Glucose 84 70 - 199 mg/dL [facility] Comment: Interpretive Data Fasting glucose >/= 126 [...] 2022. Calcium 8.8 8.5 - 10.3 mg/dL [facility] Bilirubin, total 1.9(H) 0.1 - 1.2 mg/dL [facility] Protein, pl 6.0(L) 6.5 - 8.5 g/dL [facility] Albumin 2.7(L) 3.5 - 5.0 g/dL [facility] Alk phos 91 40 - 130 Units/L [facility] ALT 8 7 - 55 Units/L [facility] AST 16 10 - 50 Units/L [facility] Blood 10/27/2024 6:11 AM CDT 10/27/2024 6:24 AM CDT Jessee Fletcher MD LAB BLOOD ORDERABLES Final Resul t Performing Organization Address [facility] Co de Phone Number [facility] [address] [facility] [place] [address] * POCT glucose (10/26/2024 11:34 PM CDT) Glucose, POC 104 70 - 199 mg/dL Comment: For Glucose values <35 mg/dl when Hematocrit is >60 mg/dl,the test may not accurately detect significant hypoglycemia,and testing in the Laboratory should be considered if clinically indicated. POC Performer [id number] [facility] Blood 10/26/2024 11:3 4 PM CDT 10/26/2024 11:34 PM CDT Kian Turcios MD LAB POCT ORDERABLES - DEVICE Fin al Result Performing Organization Address [facility] de Phone Number [facility] [address] [facility] [place] [address] * POCT glucose (10/26/2024 8:29 PM CDT) Glucose, POC 106 70 - 199 mg/dL Comment: For Glucose values <35 mg/dl when Hematocrit is >60 mg/dl,the test may not accurately detect significant hypoglycemia,and testing in the Laboratory should be considered if clinically indicated. POC Performer [id number] [facility] Blood 10/26/2024 8:29 PM CDT 10/26/2024 8:29 PM CDT Kian Turcios MD LAB POCT ORDERABLES - DEVICE Fin al Result Performing Organization Address [facility]/ZIP Co de Phone Number [facility] [address] [place] [address] * IR Change Biliary Drainage Catheter External [...] with copious leakage around the existing 18 Vincentian Haroon internal/external biliary drain status post multiple [...] was obtained. Prior to beginning the procedure, Patterson Protocol was performed to confirm the patient's [...] the catheter under fluoroscopic monitoring. A 10 Vincentian sheath was placed and a cholangiogram performed. [...] Then, over the guidewire, a new 18 Vincentian Haroon drain was advanced after placing multiple [...] bile duct was achieved using a 10 Vincentian sheath for aspiration. Then, over the guidewire, a new 18 Vincentian biliary drain was placed to provide stable [...] with copious leakage around the existing 18 Vincentian Haroon internal/external biliary drain status post multiple [...] was obtained. Prior to beginning the procedure, Patterson Protocol was performed to confirm the patient's [...] the catheter under fluoroscopic monitoring. A 10 Vincentian sheath was placed and a cholangiogram performed. [...] Then, over the guidewire, a new 18 Vincentian Haroon drain was advanced after placing multiple [...] bile duct was achieved using a 10 Vincentian sheath for aspiration. Then, over the guidewire, a new 18 Vincentian biliary drain was placed to provide stable [...] outpatient. Electronically signed by: Herb Francis M.D. Herb Francis MD IMG IR PROCEDURES Final [...] MD LAB BLOOD ORDERABLES Final Resul t [facility] [address] Department [place] [address] * (ABNORMAL) Differential, auto (10/26/2024 5:16 AM CDT) Neutrophil abs 6.90(H) 1.50 - 6.50 K/cumm Imm gran abs 0.25(H) 0.00 - 0.10 K/cumm [facility] Lymphocyte abs 0.49(L) 0.80 - 3.30 K/cumm [facility] Monocyte abs 0.73 0.20 - 0.80 K/cumm [facility] Eosinophil abs 0.28 0.00 - 0.50 K/cumm [facility] Basophil abs 0.03 0.00 - 0.10 K/cumm [facility] Neutrophil pct 79.6 % [facility] Comment: Interpretive Data Percent cell count reference ranges are not reported, since discordance with absolute values may lead to misinterpretation of CBC data. Current Interpretive Data was last revised on 2017. Imm gran pct 2.9 % [facility] Comment: Interpretive Data Percent cell count reference ranges are not reported, since discordance with absolute values may lead to misinterpretation of CBC data. Current Interpretive Data was last revised on 2017. Lymphocyte pct 5.6 % [facility] Comment: Interpretive Data Percent cell count reference ranges are not reported, since discordance with absolute values may lead to misinterpretation of CBC data. Current Interpretive Data was last revised on 2017. Monocyte pct 8.4 % [facility] Comment: Interpretive Data Percent cell count reference ranges are not reported, since discordance with absolute values may lead to misinterpretation of CBC data. Current Interpretive Data was last revised on 2017. Eosinophil pct 3.2 % [facility] Comment: Interpretive Data Percent cell count reference ranges are not reported, since discordance with absolute values may lead to misinterpretation of CBC data. Current Interpretive Data was last revised on 2017. Basophil pct 0.3 % [facility] Comment: Interpretive Data Percent cell count reference ranges are not reported, since discordance with absolute values may lead to misinterpretation of CBC data. Current Interpretive Data was last revised on 2017. Blood 10/26/2024 5:16 AM CDT 10/26/2024 5:41 AM CDT Jessee Fletcher MD LAB BLOOD ORDERABLES Final Resul t [facility] [address] Department [place] [address] * (ABNORMAL) CBC with auto differential (10/26/2024 5:16 AM CDT) WBC 8.68 3.80 - 9.90 K/cumm Hgb 7.3(L) 13.0 - 17.5 g/dL [facility] Hct 22.6(L) 38.9 - 50.3 % [facility] Plt 208 150 - 400 K/cumm [facility] MPV 11.0 9.1 - 12.3 fL [facility] RBC 2.62(L) 4.30 - 5.80 M/cumm [facility] MCV 86.3 81.3 - 96.4 fL [facility] MCH 27.9 27.1 - 33.3 pg [facility] MCHC 32.3 32.3 - 35.7 g/dL [facility] RDW CV 15.6(H) 11.1 - 14.9 % [facility] RDW SD 49.1(H) 35.7 - 48.1 fL [facility] NRBC abs 0.00 0.00 - 0.01 K/cumm [facility] Blood 10/26/2024 5:16 AM CDT 10/26/2024 5:41 AM CDT Jessee Fletcher MD LAB BLOOD ORDERABLES Final Resul t [facility] [address] Department [place] [address] * (ABNORMAL) Comprehensive metabolic panel (10/26/2024 5:16 AM CDT) Sodium 143 135 - 145 mmol/L Potassium, pl 3.1(L) 3.3 - 4.9 mmol/L [facility] Chloride 108 97 - 110 mmol/L [facility] CO2 26 22 - 32 mmol/L [facility] Anion gap 9 2 - 15 mmol/L [facility] BUN 30(H) 6 - 25 mg/dL [facility] Creatinine 1.73(H) 0.80 - 1.30 mg/dL [facility] Glucose 116 70 - 199 mg/dL [facility] Comment: Interpretive Data Fasting glucose >/= 126 [...] 2022. Calcium 8.5 8.5 - 10.3 mg/dL [facility] Bilirubin, total 2.1(H) 0.1 - 1.2 mg/dL [facility] Protein, pl 5.6(L) 6.5 - 8.5 g/dL [facility] Albumin 2.4(L) 3.5 - 5.0 g/dL [facility] Alk phos 92 40 - 130 Units/L [facility] ALT 8 7 - 55 Units/L [facility] AST 12 10 - 50 Units/L [facility] Blood 10/26/2024 5:16 AM CDT 10/26/2024 5:41 AM CDT Jessee Fletcher MD LAB BLOOD ORDERABLES Final Resul t Performing Organization Address [facility] Co de Phone Number [facility] [address] Department of Laboratories [place], [place] [phone] * (ABNORMAL) eGFR (10/25/2024 12:26 AM CDT) [...] 6 AM CDT 10/25/2024 12:40 AM CDT Jessee Fletcher MD LAB BLOOD ORDERABLES Final Resul t Performing Organization Address [facility] Co de Phone Number [facility] [address] [place] [address] * (ABNORMAL) Differential, auto (10/25/2024 12:26 AM CDT) Neutrophil abs 7.19(H) 1.50 - 6.50 K/cumm Imm gran abs 0.21(H) 0.00 - 0.10 K/cumm [facility] Lymphocyte abs 0.40(L) 0.80 - 3.30 K/cumm [facility] Monocyte abs 1.08(H) 0.20 - 0.80 K/cumm [facility] Eosinophil abs 0.18 0.00 - 0.50 K/cumm [facility] Basophil abs 0.02 0.00 - 0.10 K/cumm [facility] Neutrophil pct 79.2 % [facility] Comment: Interpretive Data Percent cell count reference ranges are not reported, since discordance with absolute values may lead to misinterpretation of CBC data. Current Interpretive Data was last revised on 2017. Imm gran pct 2.3 % [facility] Comment: Interpretive Data Percent cell count reference ranges are not reported, since discordance with absolute values may lead to misinterpretation of CBC data. Current Interpretive Data was last revised on 2017. Lymphocyte pct 4.4 % [facility] Comment: Interpretive Data Percent cell count reference ranges are not reported, since discordance with absolute values may lead to misinterpretation of CBC data. Current Interpretive Data was last revised on 2017. Monocyte pct 11.9 % [facility] Comment: Interpretive Data Percent cell count reference ranges are not reported, since discordance with absolute values may lead to misinterpretation of CBC data. Current Interpretive Data was last revised on 2017. Eosinophil pct 2.0 % [facility] Comment: Interpretive Data Percent cell count reference ranges are not reported, since discordance with absolute values may lead to misinterpretation of CBC data. Current Interpretive Data was last revised on 2017. Basophil pct 0.2 % [facility] Comment: Interpretive Data Percent cell count reference ranges are not reported, since discordance with absolute values may lead to misinterpretation of CBC data. Current Interpretive Data was last revised on 2017. Blood 10/25/2024 12:2 6 AM CDT 10/25/2024 12:40 AM CDT us Jessee Fletcher MD LAB BLOOD ORDERABLES Final Resul t [facility] [address] [place] [address] * (ABNORMAL) CBC with auto differential (10/25/2024 12:26 AM CDT) [facility] WBC 9.08 3.80 - 9.90 K/cumm Hgb 7.2(L) 13.0 - 17.5 g/dL [facility] [facility] Hct 23.0(L) 38.9 - 50.3 % [facility] Plt 193 150 - 400 K/cumm [facility] MPV 9.7 9.1 - 12.3 fL [facility] RBC 2.60(L) 4.30 - 5.80 M/cumm [facility] MCV 88.5 81.3 - 96.4 fL [facility] MCH 27.7 27.1 - 33.3 pg [facility] MCHC 31.3(L) 32.3 - 35.7 g/dL [facility] RDW CV 15.6(H) 11.1 - 14.9 % [facility] RDW SD 50.3(H) 35.7 - 48.1 fL [facility] NRBC abs 0.00 0.00 - 0.01 K/cumm [facility] Blood 10/25/2024 12:2 6 AM CDT 10/25/2024 12:40 AM CDT us Jessee Fletcher MD LAB BLOOD ORDERABLES Final Resul t [facility] [address] Department [place] [address] * (ABNORMAL) Comprehensive metabolic panel (10/25/2024 12:26 AM CDT) [facility] Sodium 145 135 - 145 mmol/L Potassium, pl 3.7 3.3 - 4.9 mmol/L [facility] Chloride 115(H) 97 - 110 mmol/L [facility] CO2 17(L) 22 - 32 mmol/L [facility] Anion gap 13 2 - 15 mmol/L [facility] BUN 41(H) 6 - 25 mg/dL [facility] Creatinine 1.98(H) 0.80 - 1.30 mg/dL [facility] Glucose 110 70 - 199 mg/dL [facility] Comment: Interpretive Data Fasting glucose >/= 126 [...] 2022. Calcium 8.7 8.5 - 10.3 mg/dL [facility] Bilirubin, total 2.5(H) 0.1 - 1.2 mg/dL [facility] Protein, pl 5.7(L) 6.5 - 8.5 g/dL [facility] Albumin 2.5(L) 3.5 - 5.0 g/dL [facility] Alk phos 98 40 - 130 Units/L [facility] ALT 11 7 - 55 Units/L [facility] AST 8(L) 10 - 50 Units/L [facility] Blood 10/25/2024 12:2 6 AM CDT 10/25/2024 12:40 AM CDT Jessee Fletcher MD LAB BLOOD ORDERABLES Final Resul t [facility] [address] [place] [address] * Iron profile - Add on lab test (10/24/2024 2:17 PM CDT) Acceptable Yes Blood 10/24/2024 2:17 PM CDT 10/24/2024 2:17 PM CDT Narrative [facility] - 10/24/2024 2:18 PM CDT Name of Test->Iron profile Tori Pierre MD LAB BLOOD ORDERABLES F inal Result [facility] [address] Department [place] [address] * (ABNORMAL) eGFR (10/24/2024 4:21 AM CDT) eGFR 30(L) >=60 mL/min/1. 73 m2 Comment: [...] MD LAB BLOOD ORDERABLES Final Resul t [facility] [address] Department [place] [address] * (ABNORMAL) Differential, auto (10/24/2024 4:21 AM CDT) Pathologist [facility] Neutrophil abs 7.04(H) 1.50 - 6.50 K/cumm Imm gran abs 0.26(H) 0.00 - 0.10 K/cumm [facility] Lymphocyte abs 0.47(L) 0.80 - 3.30 K/cumm [facility] Monocyte abs 1.07(H) 0.20 - 0.80 K/cumm [facility] Eosinophil abs 0.09 0.00 - 0.50 K/cumm [facility] Basophil abs 0.02 0.00 - 0.10 K/cumm [facility] Neutrophil pct 78.6 % [facility] Comment: Interpretive Data Percent cell count reference ranges are not reported, since discordance with absolute values may lead to misinterpretation of CBC data. Current Interpretive Data was last revised on 2017. Imm gran pct 2.9 % [facility] Comment: Interpretive Data Percent cell count reference ranges are not reported, since discordance with absolute values may lead to misinterpretation of CBC data. Current Interpretive Data was last revised on 2017. Lymphocyte pct 5.3 % [facility] Comment: Interpretive Data Percent cell count reference ranges are not reported, since discordance with absolute values may lead to misinterpretation of CBC data. Current Interpretive Data was last revised on 2017. Monocyte pct 12.0 % [facility] Comment: Interpretive Data Percent cell count reference ranges are not reported, since discordance with absolute values may lead to misinterpretation of CBC data. Current Interpretive Data was last revised on 2017. Eosinophil pct 1.0 % [facility] Comment: Interpretive Data Percent cell count reference ranges are not reported, since discordance with absolute values may lead to misinterpretation of CBC data. Current Interpretive Data was last revised on 2017. Basophil pct 0.2 % [facility] Comment: Interpretive Data Percent cell count reference ranges are not reported, since discordance with absolute values may lead to misinterpretation of CBC data. Current Interpretive Data was last revised on 2017. Blood 10/24/2024 4:21 AM CDT 10/24/2024 4:31 AM CDT us Jessee Fletcher MD LAB BLOOD ORDERABLES Final Resul t [facility] [address] Department [place] [address] * (ABNORMAL) Iron profile w/ IBC (10/24/2024 4:21 AM CDT) Iron 22(L) 50 - 150 mcg/dL TIBC 124(L) 250 - 400 mcg/dL [facility] Transferrin saturation 18(L) 20 - 50 % [facility] Blood 10/24/2024 4:21 AM CDT 10/24/2024 4:31 AM CDT us Kian Turcios MD LAB BLOOD ORDERABLES Final Resul t Performing Organization Address [facility] Co de Phone Number [facility] [address] [employer] [place], [place] [id number] * (ABNORMAL) CBC with auto differential (10/24/2024 4:21 AM CDT) [facility] WBC 8.95 3.80 - 9.90 K/cumm Hgb 7.0(L) 13.0 - 17.5 g/dL [facility] Hct 22.7(L) 38.9 - 50.3 % [facility] Plt 200 150 - 400 K/cumm [facility] MPV 10.6 9.1 - 12.3 fL [facility] RBC 2.49(L) 4.30 - 5.80 M/cumm [facility] MCV 91.2 81.3 - 96.4 fL [facility] MCH 28.1 27.1 - 33.3 pg [facility] MCHC 30.8(L) 32.3 - 35.7 g/dL [facility] RDW CV 15.6(H) 11.1 - 14.9 % [facility] RDW SD 51.8(H) 35.7 - 48.1 fL [facility] NRBC abs 0.00 0.00 - 0.01 K/cumm [facility] Blood 10/24/2024 4:2 1 AM CDT 10/24/2024 4:31 AM CDT us Jessee Fletcher MD LAB BLOOD ORDERABLES Final Resul t [facility] [address] Department [place], [place] [id number] * (ABNORMAL) Comprehensive metabolic panel (10/24/2024 4:21 AM CDT) Sodium 144 135 - 145 mmol/L Potassium, pl 4.0 3.3 - 4.9 mmol/L [facility] Chloride 115(H) 97 - 110 mmol/L [facility] CO2 15(L) 22 - 32 mmol/L [facility] Anion gap 14 2 - 15 mmol/L [facility] BUN 51(H) 6 - 25 mg/dL [facility] Creatinine 2.24(H) 0.80 - 1.30 mg/dL [facility] Glucose 95 70 - 199 mg/dL [facility] Comment: Interpretive Data Fasting glucose >/= 126 [...] 2022. Calcium 8.7 8.5 - 10.3 mg/dL [facility] Bilirubin, total 3.6(H) 0.1 - 1.2 mg/dL [facility] Protein, pl 5.5(L) 6.5 - 8.5 g/dL [facility] Albumin 2.4(L) 3.5 - 5.0 g/dL [facility] Alk phos 102 40 - 130 Units/L [facility] ALT 13 7 - 55 Units/L [facility] AST 12 10 - 50 Units/L [facility] Blood 10/24/2024 4:21 AM CDT 10/24/2024 4:31 AM CDT us Jessee Fletcher MD LAB BLOOD ORDERABLES Final Resul t [facility] [address] Department [place] [address] * (ABNORMAL) Hemoglobin and hematocrit (10/23/2024 9:18 PM CDT) [facility] Hgb 7.4(L) 13.0 - 17.5 g/dL Hct 23.6(L) 38.9 - 50.3 % [facility] Blood 10/23/2024 9:18 PM CDT 10/23/2024 9:26 PM CDT Jessee Fletcher MD LAB BLOOD ORDERABLES Final Resul t Performing Organization Address City/[facility]/ZIP Co de Phone Number [facility] [address] Department of Laboratories [place], [place] [id number] * Aerobic culture and gram stain Sputum (10/23/2024 6:30 PM CDT) [facility] Direct Specimen Exam Stain: Poor quality sputum Report Final Report: Culture not performed. Please reorder and recollect if clinically indicated. [facility] Sputum 10/23/2024 6:30 PM CDT 10/23/2024 7:31 PM CDT Jesese Fletcher MD LAB MICROBIOLOGY - GENERAL ORDER OBED Final Result Performing Organization Address [facility] Co de Phone Number [facility] [address] [place] [address] * TRANSTHORACIC ECHO (TTE) COMPLETE W DOPPLER/CF W CONTRAST (10/23/2024 5:07 PM CDT) [facility] EF Mod BP 60 % CONS SCIMAGE Anatomical Region Laterality Modality Ultrasound 10/23/2024 4:11 PM CDT Narrative 10/23/2024 5:33 PM CDT [facility] [address] [place] [address] ECHOCARDIOGRAM Patient Name: LEE COTTO : 1950 (73y 10m) Gender: M Study Date: 10/23/2024 04:11:24 PM Ht(Inch): 67 Wt(Lb): 154.1 BSA: 1.82 [employer] Bl[employer]: MEJIA Location: [id number] Order Provider: JESSEE FLETCHER BMI: 24.13 BP: [...] effusion. Electronically Signed By: Deangelo Funez MD, [facility] 10/23/2024 5:32:36 PM CDT Procedure Note Deangelo Funez MD - 10/23/2024 [facility] [address] [place] [address] ECHOCARDIOGRAM Patient Name: LEE COTTO : 1950 (73y 10m) Gender: M Study Date: 10/23/2024 04:11:24 PM Ht(Inch): 67 Wt(Lb): 154.1 BSA: 1.82 [employer] Bl[employer]: MEJIA Location: [id number] Order Provider: JESSEE FLETCHER BMI: 24.13 BP: [...] effusion. Electronically Signed By: Deangelo Funez MD, FACC 10/23/2024 5:32:36 PM CDT us Jessee Fletcher MD CV ECHO PROCEDURES Final [...] by: Bipin Sin M.D. Jessee Fletcher MD IM CT PROCEDURES Final Result * (ABNORMAL) Hemoglobin and hematocrit (10/23/2024 11:32 AM CDT) Hgb 7.3(L) 13.0 - 17.5 g/dL Hct 23.3(L) 38.9 - 50.3 % [facility] Blood 10/23/2024 11:3 2 AM CDT 10/23/2024 11:59 AM CDT Jessee Fletcher MD LAB BLOOD ORDERABLES Final Resul t Performing Organization Address [facility] Co de Phone Number [facility] [address] [facility] [place] [address] * Prepare RBC: 1 Units (10/23/2024 8:27 AM CDT) Product code [id number] Unit Number [id number] 2-2 [facility] Product Blood Type APOS [facility] Dispense Status RETURNED [facility] Blood 10/23/2024 8:27 AM CDT Narrative [facility] - 10/26/2024 7:16 AM CDT Are special requirements needed? (All products are leukoreduced and CMV- safe)- >No Date required:-20241023 LRRBC # of Oxzir-8-[id number] Reasons:-Hgb <7 g/dL} Jessee Fletcher MD BLOOD BANK PRODUCT ORDERABLES Fi nal Result Performing Organization Address [facility] Co de Phone Number [facility] [address] [facility] [place] [address] * Transfuse RBC (10/23/2024 8:22 AM CDT) Blood Juan Jose Fitzpatrick DO BLOOD TRANSFUSION ORDERABLE S Final Result Performing Organization Address [facility] Co de Phone Number [facility] [address] [place] [address] * Prepare RBC: 1 Units (10/23/2024 3:10 AM CDT) Product code [id number] Unit Number [id number] [facility] Product Blood Type APOS [facility] Dispense Status PRESUMED TRANSFUSED [facility] Blood 10/23/2024 3:10 AM CDT Narrative [facility] - 10/23/2024 10:20 PM CDT Are special requirements needed? (All products are leukoreduced and CMV- safe)- >No Date required:-20241023 LRRBC # of Twesq-2-Vvneb Reasons:-Hgb <7 g/dL} Juan Jose Fitzpatrick DO BLOOD BANK PRODUCT ORDERABL ES Final Result Performing Organization Address City/[facility]/ZIP Co de Phone Number [facility] [address] Department [place], [place] [id number] * (ABNORMAL) eGFR (10/23/2024 2:00 AM CDT) [...] ORDERABLES Final Resul t Performing Organization Address City/[facility]/ZIP Co de Phone Number [facility] [address] Department [place], [place] [id number] * (ABNORMAL) Differential, auto (10/23/2024 2:00 AM CDT) Neutrophil abs 8.62(H) 1.50 - 6.50 K/cumm Imm gran abs 0.16(H) 0.00 - 0.10 K/cumm [facility] Lymphocyte abs 0.27(L) 0.80 - 3.30 K/cumm [facility] Monocyte abs 1.18(H) 0.20 - 0.80 K/cumm [facility] Eosinophil abs 0.02 0.00 - 0.50 K/cumm [facility] Basophil abs 0.01 0.00 - 0.10 K/cumm [facility] Neutrophil pct 84.0 % [facility] Comment: Interpretive Data Percent cell count reference ranges are not reported, since discordance with absolute values may lead to misinterpretation of CBC data. Current Interpretive Data was last revised on 2017. Imm gran pct 1.6 % [facility] Comment: Interpretive Data Percent cell count reference ranges are not reported, since discordance with absolute values may lead to misinterpretation of CBC data. Current Interpretive Data was last revised on 2017. Lymphocyte pct 2.6 % [facility] Comment: Interpretive Data Percent cell count reference ranges are not reported, since discordance with absolute values may lead to misinterpretation of CBC data. Current Interpretive Data was last revised on 2017. Monocyte pct 11.5 % [facility] Comment: Interpretive Data Percent cell count reference ranges are not reported, since discordance with absolute values may lead to misinterpretation of CBC data. Current Interpretive Data was last revised on 2017. Eosinophil pct 0.2 % [facility] Comment: Interpretive Data Percent cell count reference ranges are not reported, since discordance with absolute values may lead to misinterpretation of CBC data. Current Interpretive Data was last revised on 2017. Basophil pct 0.1 % [facility] Comment: Interpretive Data Percent cell count reference ranges are not reported, since discordance with absolute values may lead to misinterpretation of CBC data. Current Interpretive Data was last revised on 2017. Blood 10/23/2024 2:00 AM CDT 10/23/2024 2:25 AM CDT Jessee Fletcher MD LAB BLOOD ORDERABLES Final Resul t Performing Organization Address City/[facility]/ZIP Co de Phone Number [facility] [address] [place] [address] * (ABNORMAL) CBC with auto differential (10/23/2024 2:00 AM CDT) WBC 10.26(H) 3.80 - 9.90 K/cumm Hgb 6.8(L) 13.0 - 17.5 g/dL [facility] Hct 22.0(L) 38.9 - 50.3 % [facility] Plt 194 150 - 400 K/cumm [facility] MPV 10.8 9.1 - 12.3 fL [facility] RBC 2.40(L) 4.30 - 5.80 M/cumm [facility] MCV 91.7 81.3 - 96.4 fL [facility] MCH 28.3 27.1 - 33.3 pg [facility] MCHC 30.9(L) 32.3 - 35.7 g/dL [facility] RDW CV 15.0(H) 11.1 - 14.9 % [facility] RDW SD 51.0(H) 35.7 - 48.1 fL [facility] NRBC abs 0.00 0.00 - 0.01 K/cumm [facility] Blood 10/23/2024 2:00 AM CDT 10/23/2024 2:25 AM CDT Jessee Fletcher MD LAB BLOOD ORDERABLES Final Resul t [facility] [address] [place] [address] * Magnesium (10/23/2024 2:00 AM CDT) Magnesium 1.7 1.4 - 2.5 mg/dL Blood 10/23/2024 2:00 AM CDT 10/23/2024 2:25 AM CDT us Dayo Larsen DO LAB BLOOD ORDERABLES F inal Result [facility] [address] Department [place] [address] * (ABNORMAL) Comprehensive metabolic panel (10/23/2024 2:00 AM CDT) Sodium 143 135 - 145 mmol/L Potassium, pl 4.5 3.3 - 4.9 mmol/L [facility] Chloride 112(H) 97 - 110 mmol/L [facility] CO2 16(L) 22 - 32 mmol/L [facility] Anion gap 15 2 - 15 mmol/L [facility] BUN 53(H) 6 - 25 mg/dL [facility] Creatinine 2.60(H) 0.80 - 1.30 mg/dL [facility] Glucose 80 70 - 199 mg/dL [facility] Comment: Interpretive Data Fasting glucose >/= 126 [...] 2022. Calcium 8.8 8.5 - 10.3 mg/dL [facility] Bilirubin, total 3.8(H) 0.1 - 1.2 mg/dL [facility] Protein, pl 5.9(L) 6.5 - 8.5 g/dL [facility] Albumin 2.6(L) 3.5 - 5.0 g/dL [facility] Alk phos 121 40 - 130 Units/L [facility] ALT 21 7 - 55 Units/L [facility] AST 21 10 - 50 Units/L [facility] Blood 10/23/2024 2:00 AM CDT 10/23/2024 2:25 AM CDT Jessee Fletcher MD LAB BLOOD ORDERABLES Final Resul t Performing Organization Address [facility] Co de Phone Number [facility] [address] [facility] [place] [address] * (ABNORMAL) Hemoglobin and hematocrit (10/22/2024 7:24 PM CDT) Hgb 7.2(L) 13.0 - 17.5 g/dL Hct 23.0(L) 38.9 - 50.3 % [facility] Blood 10/22/2024 7:24 PM CDT 10/22/2024 7:38 PM CDT Jessee Fletcher MD LAB BLOOD ORDERABLES Final Resul t Performing Organization Address [facility] de Phone Number [facility] [address] [facility] [place] [address] * ECG 12 lead (10/22/2024 6:46 PM CDT) 10/22/2024 6:46 PM CDT Narrative [facility] - 10/22/2024 10:16 PM CDT Vent Rate: 104 bpm RR Interval: 576 msec MN Interval: 153 msec QRS Duration: 99 msec QT Interval: 313 msec QTC Interval: 373 msec P-R-T Everest: 52 - 36 - 73 degrees IMPRESSION: SINUS TACHYCARDIA ABNORMAL RHYTHM ECG Electronically Signed By: Bharat Rosales [facility] Card John CEDILLO ECG ORDERABLES Final Result Performing Organization Address [facility] de Phone Number [facility] [employer] [facility] * MRSA Only (Staphylococcus aureus) PCR Nasal (10/22/2024 3:34 PM CDT) Pathologist [facility] PCR Scrn, Methicillin resistant Staphylococcus aureus (MRSA) Not Detected Not Detected Comment: Interpretive Data Testing performed using Nucleic Acid Amplification with the [employer] Xpert MRSA NxG Assay. This assay detects target DNA from mecA, mecC and the SCCmec insertion site of Staphylococcus aureus using Real-Time PCR and has been cleared by the FDA. Performance characteristics have been verified by the [facility]. Current Interpretive Data was last revised on 2023 Nasal 10/22/2024 3:34 PM CDT 10/22/2024 3:51 PM CDT us Jerald Maria MD LAB MICROBIOLOGY - GENERAL ORDER OBED Final Result [facility] [address] [place] [address] * IR Change Biliary Drainage Catheter External [...] saline slowly (over 30 seconds) once daily. [facility] - [phone] Electronically signed by: Jennifer Perry PA-C Narrative [...] was obtained. Prior to beginning the procedure, Patterson Protocol was performed to confirm the patient's [...] fluoroscopy. The catheter was divided and a [employer] guidewire in a 5-Vincentian Kumpe catheter were advanced through the catheter under fluoroscopic monitoring. The existing catheter was exchanged over the wire for a new 18-Vincentian Haroon internal-external biliary drainage catheter with additional sideholes. Limited contrast injection through the catheter under fluoroscopic monitoring confirmed appropriate position of the last side hole within the biliary tree. The catheter was secured in position using TWO 0-Prolene sutures and a Cath Copy Holder securement device. The drain was left open [...] was obtained. Prior to beginning the procedure, Patterson Protocol was performed to confirm the patient's [...] fluoroscopy. The catheter was divided and a [employer] guidewire in a 5-Vincentian Kumpe catheter were advanced through the catheter under fluoroscopic monitoring. The existing catheter was exchanged over the wire for a new 18-Vincentian Haroon internal-external biliary drainage catheter with additional sideholes. Limited contrast injection through the catheter under fluoroscopic monitoring confirmed appropriate position of the last side hole within the biliary tree. The catheter was secured in position using TWO 0-Prolene sutures and a Cath Copy Holder securement device. The drain was left open [...] saline slowly (over 30 seconds) once daily. [facility] - [phone] Electronically signed by: Jennifer Perry PA-C us Jessee Fletcher MD IMG IR PROCEDURES Final Result * (ABNORMAL) Urinalysis reflex to microscopic and culture Urine (10/22/2024 1:17 PM CDT) Color, ur Yellow Yellow Clarity, ur Clear Clear [facility] Specific gravity, ur 1.016 1.003 - 1.030 [facility] pH, urine 6.0 [facility] Comment: Interpretive Data U rine pH is affected by diet, medications, systemic acid-base disturbances, and renal tubular function. pH may affect urinary stone formation. For example, urine pH below 6.0 may help reduce the tendency for calcium phosphate stones and pH greater than 6.0 may reduce the tendency for uric acid stone formation. Source: [facility] Current Interpretive Data was last revised on 2017 Protein, ur ql 1+(A) Negative [facility] Glucose, ur ql Negative Negative [facility] Ketones, ur Negative Negative [facility] Bilirubin, ur Negative Negative [facility] Blood, ur Negative Negative [facility] Urobilinogen, ur <2.0 <2.0 mg/dL [facility] Nitrite, ur Negative Negative [facility] Leukocyte esterase, ur Negative Negative [facility] UA reflex comment Reflex to microscopic UA will be performed. [facility] Urine 10/22/2024 1:17 PM CDT 10/22/2024 1:17 PM CDT us Salinas Pro MD LAB MICROBIOLOGY - GENERAL O RDERABLES Final Result [facility] [address] [place] [address] * (ABNORMAL) Urinalysis, microscopic only (10/22/2024 1:17 PM CDT) WBC, ur 0-5 0 - 5 /HPF RBC, ur 0-2 0 - 2 /HPF [facility] Epithelial cells, squamous, ur 1-5 0 - 5 /HPF [facility] Mucous, ur Present(A) [facility] Hyaline casts, ur 1-5 0 - 10 /LPF [facility] Culture Reflex Comment Reflex conditions for urine culture (WBC >10) not met. [facility] Urine 10/22/2024 1:17 PM CDT 10/22/2024 1:17 PM CDT us Salinas Pro MD LAB URINE ORDERABLES Final R esult Performing Organization Address City/[facility]/ZIP Co de Phone Number [facility] [address] Department of Laboratories [place], [place] [id number] * (ABNORMAL) eGFR (10/22/2024 12:48 PM CDT) eGFR 24(L) >=60 mL/min/1. 73 m2 Comment: [...] ORDERABLES Final Resul t Performing Organization Address City/[facility]/ZIP Co de Phone Number [facility] [address] Department of Laboratories [place], [place] [id number] * (ABNORMAL) Differential, auto (10/22/2024 12:48 PM CDT) Neutrophil abs 9.08(H) 1.50 - 6.50 K/cumm Imm gran abs 0.11(H) 0.00 - 0.10 K/cumm [facility] Lymphocyte abs 0.35(L) 0.80 - 3.30 K/cumm [facility] [facility] Monocyte abs 1.12(H) 0.20 - 0.80 K/cumm [facility] Eosinophil abs 0.03 0.00 - 0.50 K/cumm [facility] Basophil abs 0.02 0.00 - 0.10 K/cumm [facility] Neutrophil pct 84.7 % [facility] Comment: Interpretive Data Percent cell count reference ranges are not reported, since discordance with absolute values may lead to misinterpretation of CBC data. Current Interpretive Data was last revised on 2017. Imm gran pct 1.0 % [facility] Comment: Interpretive Data Percent cell count reference ranges are not reported, since discordance with absolute values may lead to misinterpretation of CBC data. Current Interpretive Data was last revised on 2017. Lymphocyte pct 3.3 % [facility] Comment: Interpretive Data Percent cell count reference ranges are not reported, since discordance with absolute values may lead to misinterpretation of CBC data. Current Interpretive Data was last revised on 2017. Monocyte pct 10.5 % [facility] Comment: Interpretive Data Percent cell count reference ranges are not reported, since discordance with absolute values may lead to misinterpretation of CBC data. Current Interpretive Data was last revised on 2017. Eosinophil pct 0.3 % [facility] Comment: Interpretive Data Percent cell count reference ranges are not reported, since discordance with absolute values may lead to misinterpretation of CBC data. Current Interpretive Data was last revised on 2017. Basophil pct 0.2 % [facility] Comment: Interpretive Data Percent cell count reference ranges are not reported, since discordance with absolute values may lead to misinterpretation of CBC data. Current Interpretive Data was last revised on 2017. Blood 10/22/2024 12:4 8 PM CDT 10/22/2024 12:48 PM CDT us Jessee Fletcher MD LAB BLOOD ORDERABLES Final Resul t [facility] [address] [place] [address] * (ABNORMAL) CBC with auto differential (10/22/2024 12:48 PM CDT) [facility] WBC 10.71(H) 3.80 - 9.90 K/cumm Hgb 7.1(L) 13.0 - 17.5 g/dL [facility] Hct 22.6(L) 38.9 - 50.3 % [facility] Plt 182 150 - 400 K/cumm [facility] MPV 10.8 9.1 - 12.3 fL [facility] RBC 2.53(L) 4.30 - 5.80 M/cumm [facility] MCV 89.3 81.3 - 96.4 fL [facility] MCH 28.1 27.1 - 33.3 pg [facility] MCHC 31.4(L) 32.3 - 35.7 g/dL [facility] RDW CV 14.8 11.1 - 14.9 % [facility] RDW SD 48.3(H) 35.7 - 48.1 fL [facility] NRBC abs 0.00 0.00 - 0.01 K/cumm [facility] Blood 10/22/2024 12:4 8 PM CDT 10/22/2024 12:48 PM CDT us Jessee Fletcher MD LAB BLOOD ORDERABLES Final Resul t [facility] [address] Department [place] [address] * (ABNORMAL) Comprehensive metabolic panel (10/22/2024 12:48 PM CDT) [facility] Sodium 140 135 - 145 mmol/L Potassium, pl 4.5 3.3 - 4.9 mmol/L [facility] Chloride 110 97 - 110 mmol/L [facility] CO2 17(L) 22 - 32 mmol/L [facility] Anion gap 13 2 - 15 mmol/L [facility] BUN 54(H) 6 - 25 mg/dL [facility] Creatinine 2.73(H) 0.80 - 1.30 mg/dL [facility] Glucose 90 70 - 199 mg/dL [facility] Comment: Interpretive Data Fasting glucose >/= 126 [...] 2022. Calcium 8.8 8.5 - 10.3 mg/dL [facility] Bilirubin, total 3.9(H) 0.1 - 1.2 mg/dL [facility] Protein, pl 6.1(L) 6.5 - 8.5 g/dL [facility] Albumin 2.7(L) 3.5 - 5.0 g/dL [facility] Alk phos 119 40 - 130 Units/L [facility] ALT 20 7 - 55 Units/L [facility] AST 15 10 - 50 Units/L [facility] Blood 10/22/2024 12:4 8 PM CDT 10/22/2024 12:48 PM CDT us Jessee Fletcher MD LAB BLOOD ORDERABLES Final Resul t [facility] [address] Department [place] [address] * CT Abdomen Pelvis WO Contrast (10/22/2024 [...] 7:20 AM CDT 10/22/2024 7:50 AM CDT Jerald Maria MD LAB BLOOD ORDERABLES Final Resul t [facility] [address] Department [place] [address] * Type and screen (10/22/2024 7:20 AM CDT) ABO Rh A Positive Vanessa, indirect Negative [facility] Blood 10/22/2024 7:20 AM CDT 10/22/2024 7:45 AM CDT Narrative [facility] - 10/22/2024 8:40 AM CDT Has the patient had Daratumumab or Isatuximab in the past 6 months?->Unknown Jerald Maria MD LAB BLOOD BANK TEST ORDERABLES F inal Result Performing Organization Address [facility] de Phone Number [facility] [address] [place] [address] * (ABNORMAL) Lactate dehydrogenase (LD) (10/22/2024 7:20 AM CDT) Lactate dehydrogenase (LDH) 80(L) 100 - 250 Units/L Blood 10/22/2024 7:20 AM CDT 10/22/2024 7:27 AM CDT Jerald Maria MD LAB BLOOD ORDERABLES Final Resul t Performing Organization Address [facility] Co de Phone Number [facility] [address] [place] [address] * (ABNORMAL) Haptoglobin (10/22/2024 7:20 AM CDT) Haptoglobin 325(H) 30 - 200 mg/dL Blood 10/22/2024 7:20 AM CDT 10/22/2024 7:27 AM CDT Jerald Maria MD LAB BLOOD ORDERABLES Final Resul t Performing Organization Address [facility] de Phone Number [facility] [address] [place] [address] * XR Chest 1 Vw Portable (10/22/2024 [...] CDT 10/22/2024 3:39 AM CDT Narrative [facility] - 10/27/2024 7:00 AM CDT From a [...] organism identification may be performed using the [employer] Blood Culture Identification panel. This assay detects microbial DNA in a blood culture broth. This assay has been cleared by the [place] Food and Drug Administration and its performance characteristics have been verified by the [facility] Microbiology Laboratory. Interpretive data was last revised on July 15, 2022. Salinas Pro MD LAB MICROBIOLOGY - GENERAL O RDERABLES Final Result Performing Organization Address [facility] de Phone Number [facility] [address] Department [place] [address] * Blood culture Blood (10/22/2024 3:08 AM CDT) Report Final Report: No growth Blood 10/22/2024 3:08 AM CDT 10/22/2024 3:39 AM CDT Narrative [facility] - 10/27/2024 7:00 AM CDT Collection->Peripheral Interpretive [...] organism identification may be performed using the [employer] Blood Culture Identification panel. This assay detects microbial DNA in a blood culture broth. This assay has been cleared by the [facility] Food and Drug Administration and its performance characteristics have been verified by the [facility] Microbiology Laboratory. Interpretive data was last revised on July 15, 2022. Salinas Pro MD LAB MICROBIOLOGY - GENERAL O RDERABLES Final Result Performing Organization Address [facility] Co de Phone Number [facility] [address] Department [place] [address] * (ABNORMAL) Troponin T high-sensitivity series (baseline, [...] ORDERABLES Final R esult Performing Organization Address City/[facility]/ZIP Co de Phone Number [facility] [address] Department [place], [place] [id number] * (ABNORMAL) eGFR (10/22/2024 2:55 AM CDT) [...] LAB BLOOD ORDERABLES Final R esult [facility] [address] Department [place], [place] [id number] * (ABNORMAL) Differential, auto (10/22/2024 2:55 AM CDT) Neutrophil abs 9.65(H) 1.50 - 6.50 K/cumm Imm gran abs 0.12(H) 0.00 - 0.10 K/cumm [facility] Lymphocyte abs 0.29(L) 0.80 - 3.30 K/cumm [facility] Monocyte abs 1.23(H) 0.20 - 0.80 K/cumm [facility] Eosinophil abs 0.03 0.00 - 0.50 K/cumm [facility] Basophil abs 0.01 0.00 - 0.10 K/cumm [facility] Neutrophil pct 85.0 % [facility] Comment: Interpretive Data Percent cell count reference ranges are not reported, since discordance with absolute values may lead to misinterpretation of CBC data. Current Interpretive Data was last revised on 2017. Imm gran pct 1.1 % [facility] Comment: Interpretive Data Percent cell count reference ranges are not reported, since discordance with absolute values may lead to misinterpretation of CBC data. Current Interpretive Data was last revised on 2017. Lymphocyte pct 2.6 % [facility] Comment: Interpretive Data Percent cell count reference ranges are not reported, since discordance with absolute values may lead to misinterpretation of CBC data. Current Interpretive Data was last revised on 2017. Monocyte pct 10.9 % [facility] Comment: Interpretive Data Percent cell count reference ranges are not reported, since discordance with absolute values may lead to misinterpretation of CBC data. Current Interpretive Data was last revised on 2017. Eosinophil pct 0.3 % [facility] Comment: Interpretive Data Percent cell count reference ranges are not reported, since discordance with absolute values may lead to misinterpretation of CBC data. Current Interpretive Data was last revised on 2017. Basophil pct 0.1 % [facility] Comment: Interpretive Data Percent cell count reference ranges are not reported, since discordance with absolute values may lead to misinterpretation of CBC data. Current Interpretive Data was last revised on 2017. Blood 10/22/2024 2:55 AM CDT 10/22/2024 3:21 AM CDT Salinas Pro MD LAB BLOOD ORDERABLES Final R esult Performing Organization Address [facility] de Phone Number [facility] [address] [employer] [place], [place] [id number] * (ABNORMAL) CBC with auto differential (10/22/2024 2:55 AM CDT) [facility] WBC 11.33(H) 3.80 - 9.90 K/cumm Hgb 7.4(L) 13.0 - 17.5 g/dL [facility] Hct 23.6(L) 38.9 - 50.3 % [facility] Plt 194 150 - 400 K/cumm [facility] MPV 10.7 9.1 - 12.3 fL [facility] RBC 2.62(L) 4.30 - 5.80 M/cumm [facility] MCV 90.1 81.3 - 96.4 fL [facility] MCH 28.2 27.1 - 33.3 pg [facility] MCHC 31.4(L) 32.3 - 35.7 g/dL [facility] RDW CV 14.7 11.1 - 14.9 % [facility] RDW SD 48.6(H) 35.7 - 48.1 fL [facility] NRBC abs 0.00 0.00 - 0.01 K/cumm [facility] Blood 10/22/2024 2:55 AM CDT 10/22/2024 3:21 AM CDT Salinas Pro MD LAB BLOOD ORDERABLES Final R esult Performing Organization Address City/[facility]/ZIP Co de Phone Number [facility] [address] [place] [address] * Lipase (10/22/2024 2:55 AM CDT) Pathologist [facility] Lipase 20 10 - 99 Units/L Blood 10/22/2024 2:55 AM CDT 10/22/2024 3:21 AM CDT Salinas Por MD LAB BLOOD ORDERABLES Final R esult [facility] [address] [place] [address] * (ABNORMAL) Comprehensive metabolic panel (10/22/2024 2:55 AM CDT) Sodium 140 135 - 145 mmol/L Potassium, pl 4.5 3.3 - 4.9 mmol/L [facility] Chloride 107 97 - 110 mmol/L [facility] CO2 17(L) 22 - 32 mmol/L [facility] Anion gap 16(H) 2 - 15 mmol/L [facility] BUN 55(H) 6 - 25 mg/dL [facility] Creatinine 2.91(H) 0.80 - 1.30 mg/dL [facility] Glucose 108 70 - 199 mg/dL [facility] Comment: Interpretive Data Fasting glucose >/= 126 [...] 2022. Calcium 9.0 8.5 - 10.3 mg/dL [facility] Bilirubin, total 3.8(H) 0.1 - 1.2 mg/dL [facility] Protein, pl 6.5 6.5 - 8.5 g/dL [facility] Albumin 3.1(L) 3.5 - 5.0 g/dL [facility] Alk phos 124 40 - 130 Units/L [facility] ALT 18 7 - 55 Units/L [facility] AST 21 10 - 50 Units/L [facility] Blood 10/22/2024 2:55 AM CDT 10/22/2024 3:21 AM CDT Salinas Pro MD LAB BLOOD ORDERABLES Final R esult Performing Organization Address City/[facility]/ZIP Co de Phone Number [facility] [address] [place] [address] * ECG 12 lead (10/22/2024 2:54 AM CDT) 10/22/2024 2:54 AM CDT Narrative [facility] - 10/22/2024 8:25 AM CDT Vent Rate: 111 bpm RR Interval: 538 msec [place] Interval: 135 msec QRS Duration: 90 msec QT Interval: 306 msec QTC Interval: 372 msec P-R-T Everest: 73 - 120 - 72 degrees IMPRESSION: SINUS TACHYCARDIA RIGHT AXIS DEVIATION ABNORMAL ECG Electronically Signed By: Deangelo Funez MD, [facility] Salinas Pro MD ECG ORDERABLES Final Result Performing Organization Address [facility] Phone Number [facility] * (ABNORMAL) Hepatitis C (HCV) RNA PCR, quantitative (04/14/2018 9:10 AM CDT) Pathologist [facility] HCV RNA IU/mL 54,107 IU/mL 04/16/2018 5:33 PM [facility] HISTORICAL RESULTS HCV RNA log IU/mL 4.73 log IU/mL 018 5:33 PM [facility] HISTORICAL RESULTS HCV quant by NAAT interp Detected( H) Not Detected 04/16/2018 5:33 PM [facility] HISTORICAL RESULTS Comment: INTERPRETIVE INFORMATION: HCV by [...] and Cellular Tissue-Based Products (HCT/P). Performed by [email or web address], [address] [place] [id number] [email or web address], Aaron Esparza MD, Lab. Director 04/14/2018 9:10 AM CDT 04/14/2018 9:28 AM CDT Amari Frazier MD LAB MICROBIOLOGY - GENERAL NIKHIL MEYERS Final Result [facility] HISTORICAL RESULTS from Last 3 Months or Most Recently Relevant to Health Maintenance Insurance IDPA [facility] MEDICARE HMO [facility] MEDICARE HMO IDKY [facility] MEDICARE O PA [facility] MEDICARE HMO IDPA [facility] - [place] [facility] WORKERS COMPENSATION GENERIC WORKERS COMPENSATION GENERIC Advance Directives For more information, please contact: [phone] Documents on File Type Date Recorded Patient Rn Care Transition Expl anation ADVANCE DIRECTIVE 11/17/2024 1:55 AM 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
--- OUTSIDE RECORDS SUMMARY | 2025-01-11 09:47 | XMS_ITS | Clinical Summary ---
Author Organization [facility] Address [address] [place] [address] Care Team Providers Care Registered Nurse Behavioral Health Name Role Phone Jose Rivera MD Primary [...] this topic Insurance MEDICAID [employer] Care Teams Registered Nurse Behavioral Health Relationship Specialty Start Date End Date Jose Rivera MD [address] [place] [address] PCP - General FAMILY PRACTICE 09/15/22
--- OUTSIDE RECORDS SUMMARY | 2025-01-11 09:47 | XMS_ITS | Encounter Summary ---
Author Organization [facility] [employer] Address [address] [place] [address] Care Team Providers Care Fire Prevention Engineer Name Role Phone Jose Rivera MD Primary Care Provider Encounter Details Date Type Department Care Team (Late st Contact Info) Description 01/07/2025 Orders Only [facility] Oncology and Hematology - Jose [address] [place] [address] Shayan Brown MD [address] [facility] [address] [place] [address] Small cell lung cancer (CMS/HCC) [...] Description 01/18/2025 9:45 AM CDT Office Visit [facility] Oncology and Hematology - Jose [address] [place] [address] Shayan Brown MD [address] [facility] [address] [place] [address] documented as of this encounter Visit Diagnoses Diagnosis Small cell lung cancer (CMS/HCC) Malignant neoplasm of bronchus and lung, unspecified site documented in this encounter Care Teams Fire Prevention Engineer Relationship Specialty Start Date End Date Jose Rivera MD [address] [place], [place] [id number] PCP - General Family Practice 12/29/23 documented as of this encounter
--- OUTSIDE RECORDS SUMMARY | 2025-01-11 09:47 | XMS_ITS | Encounter Summary ---
Author Organization [facility] Address [address] [place] [address] Care Team Providers Care Tire Duster Name Role Phone Jose Rivera MD Primary Care Provider Justin Miller MD Unavailable Shayan Brown MD Unavailable [phone] No, Physician Unavailable Encounter Details Date Type Department Care Team (Late st Contact Info) Description 10/26/2024 Telephone [facility] - Interventional Radiology [address] [place] [address] Park Johns RN Social History Tobacco Use Types Packs/Day [...] materials from doctor or pharmacy Never 04/12/2023 [facility] Utilities Answer Date Recorded In the past 12 months has th e electric, gas, oil, or water company threatened to shut off services in your home? No 10/23/2024 Social Connection and Isolat ion Panel [NHANES] Answer Date Recorded In a typical week, how many times do you talk on the phone with family, friends, or neighbors? More than three times a week 10/23/2024 How often do you get togethe r with friends or relatives? Never 10/23/2024 How often do you attend chur ch or episcopalian services? Never 10/23/2024 Do you belong to any clubs o r organizations such as orthodox groups, unions, fraternal or athletic groups, or school groups? No 10/23/2024 How often do you attend meet ings of the clubs or organizations you belong to? Never 10/23/2024 Are you , , di vorced, , never , or living with a partner? 10/23/2024 AUDIT-C Answer Date Recorded Q1: How often [...] care, and heating? Not hard at all 10/23/2024 Hunger Vital Sign Answer Date Recorded Within the past 12 months, y ou worried that your food would run out before you got the money to buy more. Never true 10/24/19 25 Within the past 12 months, t he food you bought just didn't last and you didn't have money to get more. Never true 10/23/2024 PRAPARE - Transportation Answer Date Re corded In the past 12 months, has l ack of transportation kept you from medical appointments or from getting medications? No 10/11 In the past 12 months, has l ack of transportation kept you from meetings, work, or from getting things needed for daily living? No 10/23/2024 Housing Stability Vital Sign Answer Ministerio e [...] in a mcfp (including now)? No 02/03/2023 Housing Stability Vital Sign Answer Ministerio e Recorded In the last 12 months, was t here a time when you were not able to pay the mortgage or rent on time? No 10/23/2024 In the past 12 months, how m any times have you moved where you were living? 0 10/23/2024 At any time in the past 12 m [facility], were you homeless or living in a mcfp (including now)? No 10/23/2024 Personal Safety Answer Date Recorded Have you ever been in or are you currently in a harmful physical or emotional relationship or is someone making you feel afraid or unsafe? Denies 10/22/2024 Sex and Gender Information Value Date Recorded Sex Assigned at Not on file Legal Sex Male 1:47 AM [employer] Gender Identity Not on file Sexual Orientation [...] documented as of this encounter Care Teams Tire Duster Relationship Specialty Start Date End Date Jose Rivera MD [address] [place] [id number] PCP - General 08/29/17 [place] [address] [place] [address] Consulting Physician Gastroenterology 02/08/23 Shayan Brown MD [address] [place] [phone] Referring Physician Hematology 01/13/24 No, Physician 11/15/24 documented as of this encounter
== END 2025-01-11 09:41 | disposition home or self-care (01) ==
PROVIDERS: PCP Family Medicine; Visit Provider Internal Medicine Hematology & Oncology
DX: C34.90 Malignant neoplasm of unspecified part of unspecified bronchus or lung (principal); J43.9 Emphysema, unspecified; J90 Pleural effusion, not elsewhere classified
CPT/HCPCS: 71250

== ENCOUNTER 2025-01-23 12:31 | Outpatient (CLI) | payer MEDICARE, MEDICAID, SELFPAY ==
--- NOTE | ~2025-01-23 | XR_ITS ---
MODIFIED ESOPHAGRAM HISTORY: Dysphagia. TECHNIQUE: Modified barium esophagram was performed on 01/23/2025. I administered fluoroscopy and perf ormed the exam with speech pathologist. Patient was seated for lateral fluoroscopic imaging for sonia stion of thin liquids, pudding, solids and quantified amounts, followed by thin liquids in uncontroll ed amounts. This was recorded on tape. Fluoroscopic spot images were also recorded. The DAP for this procedure was 0.832 Gycm2. The amount of fluoroscopy time used during this procedure was 1.3 minutes. FINDINGS: Oral stage: Adequate function. Pharyngeal stage: Flash laryngeal penetration with thin liquids secondary to reduced laryngeal elevat ion. No aspiration.. Cervical/esophageal stage: Adequate function. IMPRESSION: Flash laryngeal penetration without aspiration. Please correlate with speech pathologist findings and specific feeding recommendations. Reviewed, dictated and finalized at location A. IMPRESSION: Flash laryngeal penetration without aspiration. Please correlate w soledad speech pathologist findings and specific feeding recommendations.
--- OUTSIDE RECORDS SUMMARY | 2025-01-23 12:34 | XMS_ITS | Encounter Summary ---
Author Organization [facility] [employer] [facility] Address [address] [place] [address] Care Team Providers Care Volunteer Recruiter Name Role Phone Jose Rivera MD Primary Care Provider Encounter Details Date Type Department Care Team (Late Contact Info) Description 01/22/2025 Orders Only [facility] Oncology and Hematology - Jose [address] [place] [address] Shayan Brown MD [address] [facility] [address] [place] [address] Social History Tobacco Use Types [...] Care Team (Late st Contact Info) Description 05/17/2025 12:30 PM VICE PRESIDENT OF TALENT MANAGEMENT Office Visit [facility] Oncology and Hematology - Jose [address] [place] [address] Shayan Brown MD [address] [facility] [address] [place] [address] documented as of this encounter Procedures Procedure Name Priority Date/Time Associated Diagnosis Comments CBC WITH AUTODIFFERENTIAL Routine 2024 4:12 PM CDT COMPREHENSIVE METABOLIC PANEL Routine 01/18/2025 10:19 AM CDT documented in this encounter Results * CBC WITH AUTODIFFERENTIAL (01/22/2025 4:12 PM CDT) Blood us Shayan Brown MD HEMATOLOGY ORDERABLES Final Res ult * COMPREHENSIVE METABOLIC PANEL (01/18/2025 10:19 AM CDT) Blood Shayan Brown MD CHEMISTRY ORDERABLES Final Resu lt documented in this encounter Visit Diagnoses Not on filedocumented in this encounter Care Teams Volunteer Recruiter Relationship Specialty Start Date End Date Jose Rivera MD [address] [facility] [place] [address] PCP - General Family Practice 12/29/23 documented as of this encounter
--- OUTSIDE RECORDS SUMMARY | 2025-01-23 12:34 | XMS_ITS | Encounter Summary ---
Author Organization [facility] Healthcare Address [address] [place] [address] Care Team Providers Care Graphics Production Specialist Name Role Phone Jose Rivera MD Primary Care Provider Jutsin Miller MD Unavailable Shayan Brown MD Unavailable No, Physician Unavailable Encounter Details Date Type Department Care Team (Late st Contact Info) Description 11/27/2024 Telephone [facility] - Interventional Radiology [address] [place] [address] Juan Sierra, RN Social History [...] materials from doctor or pharmacy Never 04/12/2023 [facility] Utilities Answer Date Recorded In the past 12 months has th e electric, gas, oil, or water company threatened to shut off services in your home? No 11/13/2024 Social Connection and Isolation Panel Answer Date Recorded In a typical week, how many times do you talk on the phone with family, friends, or neighbors? More than three times a week 11/13/2024 How often do you get togethe r with friends or relatives? Never 11/13/2024 How often do you attend chur ch or samaritan services? Never 11/13/2024 Do you belong to any clubs o r organizations such as buddhist groups, unions, fraternal or athletic groups, or [...] any time in the past 12 m onths, were you homeless or living in a senior living (including now)? No 11/13/2024 Personal Safety Answer Date Recorded Have you ever been in or are you currently in a harmful physical or emotional relationship or is someone making you feel afraid or unsafe? 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
--- OUTSIDE RECORDS SUMMARY | 2025-01-23 12:34 | XMS_ITS | Clinical Summary ---
Author Organization [facility] Address [address] [place] [address] Phone Care Team Providers Care Porter Used Car [employer] Name Role Phone Jose Rivera MD Primary Care Provider [phone] Allergies Active Allergy Reactions Criticality Noted Date [...] day Active ergocalciferol (VITAMIN D-2) 1.25 MG (00899 UT) capsule Take 50,000 Units by mouth [...] 2025 Insurance MEDICAID - [place] Care Teams Porter [employer] Car Lot Relationship Specialty Start Date End Date Jose Rivera MD [address] [place] [address] PCP - General Internal Medicine 01/05/21
--- OUTSIDE RECORDS SUMMARY | 2025-01-23 12:34 | XMS_ITS | Clinical Summary ---
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
--- OUTSIDE RECORDS SUMMARY | 2025-01-23 12:34 | XMS_ITS | Clinical Summary ---
Author Organization [facility] Address [address] [facility] [place] [address] Care Team Providers Care Fish Checker Name Role Phone Jose Rivera MD Primary Care Provider [phone] Allergies Active Allergy Reactions Criticality Noted Date [...] Encounters Date Type Department Care Team Description 01/22/2025 Orders Only [facility] Oncology and Hematology - Jose [address]ju[address] [place] [address] Shayan Brown MD 01/21/2025 Orders Only [facility] Oncology and Hematology - Jose [address] [place] [address] Shayan Brown MD Small cell lung cancer (CMS/HCC) 01/18/2025 9:45 AM CDT Office Visit [facility] Oncology and Hematology - Jose [address] [place] [address] Shayan Brown MD Small cell carcinoma of lung, unspecified laterality, unspecified part of lung (CMS/HCC) (Primary Dx) 01/18/2025 Orders Only [facility] Oncology and Hematology - Jose [address] Shayan Brown MD 01/16/2025 Orders Only [facility] Oncology and Hematology - Jose [address] [place] [address] Shayan Brown MD 01/08/2025 Orders Only [facility] Oncology and Hematology - Jose [address] Shayan Brown MD 01/07/2025 Orders Only [facility] Oncology and Hematology - Jose [address] [place] [address] Shayan Brown MD Small cell lung cancer (CMS/HCC) 12/24/2024 Orders [facility] Oncology and Hematology - Jose [address] [place] [address] Shayan Brown MD Small cell lung cancer (CMS/HCC) 12/12/2024 Orders [facility] Oncology and Hematology - Jose [address] [place] [address] Shayan Brown MD 12/10/2024 Orders [facility] Oncology and Hematology - Jose [address] [place] [address] Shayan Brown MD Small cell lung cancer (CMS/HCC) 11/26/2024 Orders Only [facility] Oncology and Hematology - Jose [address] [place] [address] Shayan Brown MD Small cell lung cancer (CMS/HCC) 11/12/2024 Orders [facility] Oncology and Hematology - Jose [address] [place] [address] Shayan Brown MD Small cell lung cancer (CMS/HCC) 11/09/[address] [facility] Oncology and Hematology - Jose [address] [place] [address] Shayan Brown MD 11/09/2024 Orders Only [facility] Oncology and Hematology - Jose [address] [place] [address] Shayan Brown MD Small cell carcinoma of lung, unspecified laterality, unspecified part of lung (CMS/HCC) (Primary Dx) 11/01/2024 External Device Data STL ABSTRACTION Provider, Abstract 10/31/2024 External Device Data STL ABSTRACTION Provider, Abstract 10/30/2024 External Device Data STL ABSTRACTION Provider, Abstract 10/29/2024 Orders Only [facility] Oncology and Hematology - Jose [address] [place] [address] Shayan Brown MD Small cell lung cancer [...] Sign Reading Time Taken Comments Blood Pressure 112/73 01/18/2025 10:00 AM CDT Pulse 92 01/18/2025 10:00 AM CDT Temperature 36.9 C (98.5 F) 01/18/2025 10:00 AM CDT Respiratory Rate 16 01/18/2025 10:00 AM CDT Oxygen Saturation 96% 01/18/2025 10:00 AM CDT 3 liters o2 Inhaled Oxygen Concentration - - Weight 71.2 kg (157 lb) 01/18/2025 10:00 AM CDT Height 172.7 cm (5' 8) 01/03/2024 1:56 PM CDT Body Mass Index 23.87 01/03/2024 1:56 PM CDT Plan of Treatment Upcoming Encounters Date Type Department Care Team (Late st Contact Info) Description 05/17/2025 12:30 PM IDENTITY MANAGEMENT DEVELOPER Office Visit [facility] Oncology and Hematology - [place] [address] [facility] [address] [place] [address] Shayan Brown MD [address] [facility] [address] [place] [address] Health Maintenance Due Date Last [...] WITH AUTODIFFERENTIAL Routine 2024 4:12 PM CDT CBC WITH AUTODIFFERENTIAL Routine 2024 1:30 PM CDT COMPREHENSIVE METABOLIC PANEL Routine 01/18/2025 10:[address] CHEST WO CONTRAST Routine 01/11/2025 10:28 AM CDT CBC WITH DIFFERENTIAL Routine 01/07/2025 4:07 PM CDT IRON LEVEL Routine 12/10/2024 8:34 AM CDT CBC WITH DIFFERENTIAL Routine 11/26/2024 3:43 PM CDT from Last 3 Months Results * CBC WITH AUTODIFFERENTIAL (01/22/2025 4:12 PM CDT) Only the most recent of2 resultswithin the time period is included. Blood us Shayan Brown MD HEMATOLOGY ORDERABLES Final Res ult * COMPREHENSIVE METABOLIC PANEL (01/18/2025 10:19 AM CDT) Blood us Shayan Brown MD CHEMISTRY ORDERABLES Final Resu lt * CT CHEST WO CONTRAST (01/11/2025 10:28 AM CDT) Anatomical Region Laterality Modality Chest Computed Tomogra phy us Shayan Brown MD CT ORDERABLES Final Result * CBC WITH DIFFERENTIAL (01/07/2025 4:07 PM CDT) Only the most recent of2 resultswithin the time period is included. Blood us Shayan Brown MD HEMATOLOGY ORDERABLES Final Res ult * IRON LEVEL (12/10/2024 8:34 AM CDT) Blood us Shayan Brown MD CHEMISTRY ORDERABLES Final Resu lt from Last [address] [employer] [facility] [place]ICAID [place] Care Teams Fish Checker Relationship Specialty Start Date End Date Jose Rivera MD [address] [place] [address] PCP - General Family Practice 12/29/23
--- OUTSIDE RECORDS SUMMARY | 2025-01-23 12:34 | XMS_ITS | Encounter Summary ---
Author Organization [facility] [employer] [facility] Address [address] [place] [address] Care Team Providers Care Melt Down Furnace Operator Name Role Phone Jose Rivera MD Primary Care Provider [phone] Encounter Details Date Type Department Care Team (Late Contact Info) Description 01/16/2025 Orders Only [facility] Oncology and Hematology - Jose [address]ju[address] [place] [address] Shayan Brown MD [address] [facility] [address] [place] [address] Social History Tobacco Use Types [...] st Contact Info) Description 05/17/2025 12:30 PM LABORER RAGS Office Visit [facility] Oncology and Hematology - Jose [address]ju[address] [place] [address] Shayan Brown MD [address] [facility] [address] [place] [address] documented as of this encounter Procedures Procedure Name Priority Date/Time Associated Diagnosis Comments CT CHEST WO CONTRAST Routine 01/11/2025 10:28 AM CDT documented in this encounter Results * CT CHEST WO CONTRAST (01/11/2025 10:28 AM CDT) Anatomical Region Laterality Modality Chest Computed Tomogra phy Shayan Brown MD CT ORDERABLES Final Result documented in this encounter Visit Diagnoses Not on filedocumented in this encounter Care Teams Melt Down Furnace Operator Relationship Specialty Start Date End Date Jose Rivera MD [address] [facility] [place], [place] [id number] PCP - General Family Practice 12/29/23 documented as of this encounter
--- OUTSIDE RECORDS SUMMARY | 2025-01-23 12:34 | XMS_ITS | Encounter Summary ---
Author Organization [facility] [employer] [facility] Address [address] [place] [address] Care Team Providers Care Microarray Specialist Name Role Phone Jose Rivera MD Primary Care Provider Encounter Details Date Type Department Care Team (Late Contact Info) Description 01/18/2025 Orders Only [facility] Oncology and Hematology - Jose [address]ju[address] [place] [address] Shayan Brown MD [address] [facility] [address] [place] [address] Social History Tobacco Use Types [...] st Contact Info) Description 05/17/2025 12:30 PM MEDICINE TECHNOLOGIST Office Visit [facility] Oncology and Hematology - Jose [address]ju[address] [place] [address] Shayan Brown MD [address] [facility] [address] [place] [address] documented as of this encounter Procedures Procedure Name Priority Date/Time Associated Diagnosis Comments CBC WITH AUTODIFFERENTIAL Routine 2024 1:30 PM CDT documented in this encounter Results * CBC WITH AUTODIFFERENTIAL (01/18/2025 1:30 PM CDT) Blood us Shayan Brown MD HEMATOLOGY ORDERABLES Final Res ult documented in this encounter Visit Diagnoses Not on filedocumented in this encounter Care Teams Microarray Specialist Relationship Specialty Start Date End Date Jose Rivera MD [address] [facility] [place], [place] [phone] PCP - General Family Practice 12/29/23 documented as of this encounter
--- OUTSIDE RECORDS SUMMARY | 2025-01-23 12:34 | XMS_ITS | Encounter Summary ---
Author Organization [facility] [employer] [facility] Address [address] [place] [address] Care Team Providers Care Supervisor Liquefaction Name Role Phone Jose Rivera MD Primary Care Provider [phone] Encounter Details Date Type Department Care Team (Late st Contact Info) Description 01/21/2025 Orders Only [facility] Oncology and Hematology - Jose [address] [place] [address] Shayan Brown MD [address] [facility] [address] [place] [address] Small cell lung cancer (CMS/HCC) [...] st Contact Info) Description 05/17/2025 12:30 PM DIVISIONAL MERCHANDISING MANAGER Office Visit [facility] Oncology and Hematology - Jose [address] [place] [address] Shayan Brown MD [address] [facility] [address] [place] [address] documented as of this encounter Visit Diagnoses Diagnosis Small cell lung cancer (CMS/HCC) Malignant neoplasm of bronchus and lung, unspecified site documented in this encounter Care Teams Supervisor Liquefaction Relationship Specialty Start Date End Date Jose Rivera MD [address] [place], [place] [phone] PCP - General Family Practice 12/29/23 documented as of this encounter
--- OUTSIDE RECORDS SUMMARY | 2025-01-23 12:34 | XMS_ITS | Patient Health Record ---
Author Organization [facility] Address [address] [place] [address] Care Team Providers Care Loss Control Manager Name Role Phone Sohan Paez Primary Care Provider [phone] Allergies Allergen (clinical drug ingredient) Drug/Non Drug Allergy documented on EMR Reaction Allergy Type Onset Date Status lisinopril Lisinopril Unknown Drug Allergy Activ e Penicillin G Benzathine hives Drug Allergy Active [place]-Heel hives Drug Allergy Acti ve Reason For [...] a day; Duration: 30 day(s) Active Ipratropium Premium 0.02 % 2.5 ml Inhala tion every 8 hrs Active Trelegy Ellipta 100-62.5-25 MCG/INH 1 puff Inhalation Once a day Active Problems Problem Type SNOMED Code ICD Code Onset Dates Problem Status W/U Status Risk Notes Problem Hypertension (24203191) Hypertension (I10) Active confirmed Problem Vitamin D deficiency (17785631) Vitamin D deficiency (E55.9) Active confirmed Problem COPD - Chronic obstructive pulmonary disease (53341644) COPD (chronic obstructive pulmonary disease) (J44.9) Active confirmed Problem Erectile dysfunction (965990766) Erectile dysfunction (N52.9) Active confirmed Problem 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
--- OUTSIDE RECORDS SUMMARY | 2025-01-23 12:35 | XMS_ITS | Encounter Summary ---
Author Organization [facility] Healthcare Address [address] [place] [address] Care Team Providers Care Quarter Trimmer Name Role Phone Jose Rivera MD Primary Care Provider Justin Miller MD Unavailable Shayan Brown MD Unavailable [phone] No, Physician Unavailable Encounter Details Date Type Department Care Team (Late st Contact Info) Description 10/26/2024 Telephone [facility] - Interventional Radiology [address] [place] [address] Park Johns RN Social History [...] doctor or pharmacy Never 04/12/2023 [facility] Utilities Answer Date Recorded In the past 12 months has th e electric, gas, oil, or water company threatened to shut off services in your home? No 10/23/2024 Social Connection and Isolation Panel Answer Date Recorded In a typical week, how many times do you talk on the phone with family, friends, or neighbors? More than three times a week 10/23/2024 How often do you get togethe r with friends or relatives? Never 10/23/2024 How often do you attend chur ch or scientology services? Never 10/23/2024 Do you belong to any clubs o r organizations such as catholic groups, unions, fraternal or athletic groups, or [...] in a custodial (including now)? No 02/03/2023 Housing Stability Vital [...] time in the past 12 m [facility], were you homeless or living in a custodial (including now)? No 10/23/2024 Personal Safety Answer Date Recorded Have you ever been in or are you currently in a harmful physical or emotional relationship or is someone making you feel afraid or unsafe? Denies 10/22/2024 Sex and Gender Information Value Date Recorded Sex Assigned at Not on file Legal Sex Male 1:47 AM PUBLIC WORKS SUPERVISOR Gender Identity Not on file Sexual [...] documented as of this encounter Care Teams Quarter Trimmer Relationship Specialty Start Date End Date Jose Rivera MD [address] [place] [address] PCP - General 08/29/17 [place] [address] [place] [address] Consulting Physician Gastroenterology 02/08/23 Shayan Brown MD [address] [place] [phone] Referring Physician Hematology 01/13/24 No, Physician 11/15/24 documented as of this encounter
--- OUTSIDE RECORDS SUMMARY | 2025-01-23 12:35 | XMS_ITS | Encounter Summary ---
Author Organization [facility] Healthcare Address [address] [place] [address] Care Team Providers Care Fur Repairer Name Role Phone Jose Rivera MD Primary Care Provider Justin Miller MD Unavailable Shayan Brown MD Unavailable [phone] No, Physician Unavailable Encounter Details Date Type Department Care Team (Late st Contact Info) Description 01/16/2025 Telephone [facility] - Interventional Radiology [address] [place] [address] Juan Sierra, RN Social History [...] materials from doctor or pharmacy Never 04/12/2023 [facility] Utilities Answer Date Recorded In the [...] often do you attend chur ch or mormonism services? Never 11/13/2024 Do you belong to any clubs o r organizations such as voodoo groups, unions, fraternal or athletic groups, or [...] place to sleep or slept in a group home (including now)? No 02/03/2023 Housing Stability [...] were you homeless or living in a group home (including now)? No 11/13/2024 Personal Safety Answer Date Recorded Have you ever been in or are you currently in a harmful physical or emotional relationship or is someone making you feel afraid or unsafe? 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
--- OUTSIDE RECORDS SUMMARY | 2025-01-23 12:35 | XMS_ITS | Clinical Summary ---
Author Organization [facility] Address [address] [place] [address] Care Team Providers Care Bouffant Curtain Machine Tender Name Role Phone Jose Rivera MD Primary [...] this topic Insurance MEDICAID HUMANA Care Teams Bouffant Curtain Machine Tender Relationship Specialty Start Date End Date Jose Rivera MD [address] [place] [address] PCP - General FAMILY PRACTICE 09/15/22
--- OUTSIDE RECORDS SUMMARY | 2025-01-23 12:35 | XMS_ITS | Encounter Summary ---
Author Organization [facility] Healthcare Address [address] [place] [address] Care Team Providers Care Metal Mixer Name Role Phone Jose Rivera MD Primary Care Provider Justin Miller MD Unavailable Shayan Brown MD Unavailable [phone] No, Physician Unavailable Encounter Details Date Type Department Care Team (Late st Contact Info) Description 06/04/2024 Telephone [facility] - Interventional Radiology [address] [place] [address] Pearl Goldstein, RN Social History Tobacco Use Types Packs/Day [...] or pharmacy Never 04/12/2023 Social Connection and Isolation Panel Answer Date Recorded In a typical week, how many times do you talk on the phone with family, friends, or neighbors? More than three times a week 02/03/2023 How often do you get togethe r with friends or relatives? Never 02/03/2023 How often do you attend chur ch or oriental orthodox services? Never 02/03/2023 Do you belong to [...] place to sleep or slept in a halfway (including now)? No 02/03/2023 Personal Safety Answer Date Recorded Have you ever been in or are you currently in a harmful physical or emotional relationship or is someone making you feel afraid or unsafe? 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 08/20/2024 08/20/2024 11/18/2024 7:26 PM C DT documented as of this encounter Care Teams Metal Mixer Relationship Specialty Start Date End Date Jose Rivera MD [address] [place] [id number] PCP - General 08/29/17 [place] [address] [place] [address] Consulting Physician Gastroenterology 02/08/23 Shayan Brown MD [address] [address] Referring Physician Hematology 01/13/24 No, Physician 11/15/24 documented as of this encounter
--- OUTSIDE RECORDS SUMMARY | 2025-01-23 12:35 | XMS_ITS | Patient Health Record ---
Author Organization [facility] Address [address] [place] [address] Support Name Relationship Address Phone FUNMILAYO [facility]ASS Emergency Contact [address] [place] [address] Lee Cotto Guarantor Unknown [phone] Allergies Allergen (clinical drug ingredient) Drug/Non Drug Allergy documented on EMR Reaction Allergy Type Onset Date Status lisinopril Lisinopril Unknown Drug Allergy Activ e Penicillin G Benzathine hives Drug Allergy Active [place]-Heel hives Drug Allergy Acti ve Reason For [...] a day; Duration: 30 day(s) *Reorder from [employer] for eRx and Interaction Alerts* Active Ipratropium [place] 0.02 % 2.5 ml Inhalation every 8 hrs Active Albuterol Sulfate (2.5 MG/3ML) 0.083% 3 ml as needed Inhalation every 8 hrs Active Albuterol Sulfate (5 MG/ML) 0.5% as directed Inhalation Active Norvasc 10 MG 1 tablet Orally Once a day; Duration: 30 day(s) Active Trelegy Ellipta 100-62.5-25 MCG/INH 1 puff Inhalation Once a day *Pick strength-form from [employer] for eRX* Active Ventolin HFA 108 (90 Base) MCG/ACT 1 puff as needed Inhalation every 4 hrs Active Ergocalciferol 1.25 MG (61675 UT) 1 capsule Orally once a week; Duration: 90 days 08/20/2019 Active Levocetirizine Dihydrochloride 5 MG 1 tablet in the evening Orally Once a day; Duration: 30 day(s) Active Problems Problem Type SNOMED Code ICD Code Onset Dates Problem Status W/U Status Risk Notes Problem Vitamin D deficiency (41511258) Vitamin D deficiency (E55.9) Active confirmed Problem Erectile dysfunction (183601057) Erectile dysfunction (N52.9) Active confirmed Problem Hypertension (36291985) Hypertension (I10) Active confirmed Problem COPD - Chronic obstructive pulmonary disease (72395477) COPD (chronic obstructive pulmonary disease) (J44.9) Active confirmed Problem Dependence on supplemental oxygen (505542964709) Oxygen dependent (Z99.81) Active confirmed Plan Of [...] Date [employer] [address] [address] [place] [address] [phone] [id number] Lee Cotto Self - patient is the insured 0 MEDICARE [address] [place] [phone] [id number] Lee Cotto Self - patient is the insured Medical (General) History Medical History History ICD Code hbp shortness of breath copd broken bones
--- OUTSIDE RECORDS SUMMARY | 2025-01-23 12:35 | XMS_ITS | Clinical Summary ---
Author Organization [address] Address [facility] [place] [address] Care Team Providers Care Manager Crisis Name Role Phone Jose Rivera MD Primary Care Provider Justin Miller MD Unavailable [phone] Shayan Brown MD Unavailable [phone] No, Physician Unavailable Allergies Active Allergy [...] tablet (5 mg total) by mouth nightly 11/19/19 21 Active montelukast (SINGULAIR) 10 mg [...] tablet (8 mg total) by mouth nightly 02/21/20 21 Active metoprolol tartrate (LOPRESSOR) 25 mg immediate release tabletIndications: hypertension Take 1 tablet (25 mg total) by mouth 2 (two) times a day 01/05/20 23 Active revefenacin (Yupelri) 175 mcg/3 mL [...] for cough 120 mL 08/10/19 25 Active roflumilast (DALIRESP) 500 mcg [...] 325 mg (65 mg of elemental iron) tabletIndications: Iron Deficiency Anemia Take 1 tablet (325 mg total) by mouth 2 (two) times a day with meals Active cyanocobalamin (Vitamin B-12) 1,000 mcg tabletIndications: Prevention of Vitamin B12 Deficiency Take 1 tablet (1,000 mcg total) by mouth daily Active azithromycin (ZITHROMAX) 250 mg tablet Take 2 tablets the first day, then 1 tablet daily for 4 days 6 tablet 12/17/19 25 Active sodium chloride 0.9% flush syringe Administer 20 mL into catheter 3 times a day 1800 mL 01/12/20 25 Active sodium chloride 0.9% flush syringe Administer 20 mL into catheter daily 1200 mL 11/23/19 25 025 Active Problems Problem Noted Date [...] Plan (03/03/2019 4:42 PM CDT): Continue with Fernie and la bryan. Pain in extremity 12/08/2009 Primary hypertension 12/08/2009 Lumbago 12/08/2009 Low back pain 12/08/2009 Pain in limb 12/08/2009 Encounters Date Type Department Care Team Description 01/17/2025 12:26 PM CDT - 01/17/2025 11:59 PM CDT Hospital Encounter [facility] - Interventional Radiology [address] [place] [phone] Biliary obstruction (HCC) Discharge Disposition: Discharge to home or self care 01/17/2025 Orders Only [facility] - Interventional Radiology [address] [place] [phone] Juan Sierra RN 01/16/2025 Telephone [facility] - Interventional Radiology [address] [place] [phone] Juan Sierra RN 01/11/2025 12:13 PM CDT - 01/11/2025 11:59 PM CDT Hospital Encounter [facility] - Interventional Radiology [address] [place] [phone] Biliary obstruction (HCC) Discharge Disposition: Discharge to home or self care 01/10/2025 Telephone [facility] - Interventional Radiology [address] [place] [phone] Juan Sierra, RN 01/10/2025 Orders Only [facility] - Interventional Radiology [address] [place] [phone] Juan Sierra, RN 01/02/2025 11:19 AM CDT - 01/02/2025 11:59 PM CDT Hospital Encounter [facility] - Interventional Radiology [address] [place] [phone] Biliary obstruction (HCC) Discharge Disposition: Discharge to home or self care 01/02/2025 Orders Only [facility] - Interventional Radiology [address] [place] [phone] Juan Sierra, RN 01/01/2025 Telephone [facility] - Interventional Radiology [address] [place] [phone] Juan Sierra RN 01/01/2025 Orders Only [facility] - Interventional Radiology [address] [place] [phone] Juan Sierra, RN 12/26/2024 12:39 PM CDT - 12/26/2024 11:59 PM CDT Hospital Encounter [facility] - Interventional Radiology [address] [place] [phone] Biliary obstruction (HCC) Discharge Disposition: Discharge to home or self care 12/21/2024 1:18 PM CDT - 12/21/2024 11:59 PM CDT Hospital Encounter [facility] - Interventional Radiology [address] [place] [phone] Biliary obstruction (HCC) Discharge Disposition: Discharge to home or self care 12/20/2024 12:30 PM CDT - 12/20/2024 11:59 PM CDT Hospital Encounter [facility] - Interventional Radiology [address] [place] [phone] Biliary obstruction (HCC) Discharge Disposition: Discharge to home or self care 12/19/2024 Telephone [facility] - Interventional Radiology [address] [place] [phone] Park Johns RN 12/15/2024 8:13 AM CDT - 12/15/2024 1:08 PM CDT Emergency [address] [phone] Cuauhtemoc Isaac MD COPD exacerbation (HCC) (Primary Dx) Discharge Disposition: Discharge to home or self care 11/27/2024 Telephone [facility] - Interventional Radiology [address] [place] [phone] Juan Sierra RN 11/27/2024 Orders Only [facility] - Interventional Radiology [address] [place] [phone] Juan Sierra, RN 11/22/2024 9:02 AM CDT - 11/22/2024 11:59 PM CDT Hospital Encounter [facility] - Interventional Radiology [address] [place] [phone] Biliary obstruction (HCC) Discharge Disposition: Discharge to home or self care 11/22/2024 Orders Only [facility] - Interventional Radiology [address] [place] [phone] Juan Sierra, RN 11/21/2024 Telephone [facility] - Interventional Radiology [address] [place] [phone] Juan Sierra RN 11/12/2024 3:00 PM CDT - 11/12/2024 3:45 PM CDT Surgery [facility] [address] [place] [phone] Cristiano Gallardo MD SMALL BOWEL WITH REMOVAL FOREIGN BODY 11/12/2024 2:34 PM CDT Anesthesia Event [facility] [address] [place] [phone] Gillian Osei MD Lorusso, Chynna Janae, CRNA 11/12/2024 Orders Only [facility] - Interventional Radiology [address] [place] [phone] Ruthie Angulo RN 11/12/2024 Orders Only [facility] - Interventional Radiology [address] [place] [phone] Juan Sierra RN 11/12/2024 Orders Only [facility] - Interventional Radiology [address] [place] [phone] Pearl Goldstein, ROBEL 11/12/2024 Orders Only [facility] - Interventional Radiology [address] [place] [phone] Alejandra Coronado, ROBEL 11/11/2024 2:59 PM CDT - 11/15/2024 7:26 PM CDT Hospital Encounter [address] [phone] Thor Herr MD Yew, MD Augustina Norton, [...] or self care 11/09/2024 Telephone Radiology [address] [place] [address] Columba Garcia PA 10/31/2024 2:00 PM CDT - 10/31/2024 11:59 PM CDT Hospital Encounter [facility] - Interventional Radiology [address] [place] [phone] Gall bladder inflammation Discharge Disposition: Discharge to home or self care 10/26/2024 1:11 PM CDT Anesthesia Event [facility] - Interventional Radiology [address] [place] [phone] Eva Pa MD Fu[place], Justin Kyle, CRNA 10/26/2024 Telephone [facility] - Interventional Radiology [address] [place] [phone] Park Johns RN 10/26/2024 Orders Only [facility] - Interventional Radiology [address] [place] [phone] Park Johns RN 10/22/2024 2:46 AM CDT - 10/28/2024 12:39 PM CDT Hospital Encounter [address] [phone] Salinas Pro MD Shimotani, Dayo Snyder, DO [...] pulmonary disease, unspecified COPD type (HCC) [J44.9]; Chronic respiratory failure with hypoxia ([facility]) [J96.11]; Former smoker [Z87.891] Discharge Disposition: Discharge to home or self care from Last 3 Months Immunizations Immunization Administration Dates Next Due Sars-CoV-2, Unspecified 08/20/2020 ZOSTER Recombinant 02/27/2019 Surgical History Surgery Date Site/Laterality Comments LUMBAR FUSION Arthrodesis Lumbar - (Added by TW Conv) ANKLE SURGERY 06/13/2015 - 06/12/2016 Left Ankle Surgery - (Added by TW Conv) [place] NJX AA&/STRD TFRML EPI LUMBAR/SACRAL [...] CATHETER EXTERNAL OR INTERNAL EXTERNAL 01/02/2025 N/A CHANGE BILIARY DRAINAGE CATHETER EXTERNAL OR INTERNAL EXTERNAL 01/11/2025 N/A CHANGE BILIARY DRAINAGE CATHETER EXTERNAL OR INTERNAL EXTERNAL 01/17/2025 N/A Medical History Medical History Date Comments Personal history of other di seases of the circulatory system History of hypertension - (A dded by TW Conv) Emphysema of lung Chronic pain disorder Pinched [...] 1 Skip Cotto Diabetes Brother 2 Raj Ha Yadiel [...] materials from doctor or pharmacy Never 04/12/2023 [facility] Utilities Answer Date Recorded In [...] often do you attend chur ch or confucianism services? Never 11/13/2024 Do you belong to [...] place to sleep or slept in a fpc (including now)? No 02/03/2023 Housing Stability Vital Sign Answer Ministerio e Recorded In the last 12 months, was t here a time when you were not able to pay the mortgage or rent on time? No 11/13/2024 In the past 12 months, how m any times have you moved where you were living? 0 11/13/2024 At any time in the past 12 m [facility], were you homeless or living in a fpc (including now)? No 11/13/2024 Personal Safety Answer Date Recorded Have you ever been in or are you currently in a harmful physical or emotional relationship or is someone making you feel afraid or unsafe? 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 Gender Identity Not on file Sexual Orientation Not on file Obstetrics History Last Filed Vital Signs Vital Sign Reading Time Taken Comments Blood Pressure 111/82 01/17/2025 2:47 PM CDT Pulse 105 01/17/2025 2:47 PM CDT Temperature 37 C (98.6 F) 01/02/2025 11:31 AM CDT Respiratory Rate 18 01/17/2025 2:27 PM CDT Oxygen Saturation 96% 01/17/2025 2:47 PM CDT Inhaled Oxygen Concentration - - [...] Influenza Vaccine (#1) 2025 Fall Risk Assessment 01/17/2026 01/17/2025 Hepatitis C Screening Completed 04/14/2018, 018 Abdominal Aortic Aneurysm (A AA) Screen Completed 11/11/2024, 10/22/2024, 08/21/2024, Additional history exists Goals Goal Patient Goal Type Associated Problems Recent Progress Patient-Stated? Author CCM Chronic Pain Care Plan Chronic Care Management Improving( 9:19 AM CDT) Genevieve Sandra, RBOEL Note: Problem: Chronic Pain Goals: 1. Minimize further functional decline 2. Maximize quality of life 3. Control pain Strategies: - Activity/exercise program recommendation - Conservative stepwise pain medicine strategy with multi-disciplinary approach - Recommend healthy lifestyle strategies and compensatory methods as needed Medical Devices Explanted Type Area Supervising Librarian Device Identifier Shelf Expiration Date Model / Serial / Lot [employer] Advanix 10fr 7cm Rapid Exchange Temporary Taper Tip Thin Wall 2 [id number] - [id number] Explanted:Qty: 1 on 02/01/2023 at [facility] Stent N/A: Bile Duct [employer] Ian 11/17/2024 [id number] / / [id number] Description:Slipped out of d uct [employer] Stent Biliary Over The Wire 0.035in Gw Comp Self Expanding E Luminexx [id number] Nitinol [id number] - [id number] Implanted:Qty: 1 on 10/26/2024 at [facility] Explanted:Qty: 1 on 11/12/2024 by Cristiano Gallardo MD at [facility] [employer] [id number] 12/12/2026 [id number] / / [id number] Procedures Procedure Name Priority Date/Time Associated Diagnosis Comments CHANGE BILIARY DRAINAGE CATHETER EXTERNAL OR INTERNAL EXTERNAL Schedule Routine, Read Routine (OP Routine) 01/17/2025 2:23 PM CDT Biliary obstruction (HCC) CHANGE BILIARY DRAINAGE CATHETER EXTERNAL OR INTERNAL EXTERNAL Schedule Routine, Read Routine (OP Routine) 01/11/2025 1:18 PM CDT Biliary obstruction (HCC) CHANGE BILIARY [...] SPIROMETRY RT Routine 10/23/2024 12:00 AM CDT HEPATITIS C RNA, QUANTITATIVE, PCR Routine 04/14/2018 9:10 AM CDT from Last 3 Months or Most Recently Relevant to Health Maintenance Results * IR Change Biliary Drainage Catheter External Or Internal External (01/17/2025 2:23 PM CDT) Anatomical Region Laterality Modality Body N/A X-Ray Angiograph y 01/17/2025 3:48 PM CDT Impressions 01/17/2025 3:48 PM CDT Successful biliary catheter exchange and instillation of alteplase as described above. PLAN: The patient will return for interval biliary drainage catheter exchange in 1 week with repeat administration of alteplase. Would recommend repeating the mucin aspiration through a Thal as performed above. Continue to flush drain with 20 mL normal saline 3 times daily. 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 Patient reports improved outcome with frequent drain exchange and instillation of alteplase. PROVIDER PRESENCE: Nicolasa Moreira PA-C, was present from the beginning to the end of the procedure. SEDATION: Conscious sedation was used for the procedure. TECHNIQUE: The risks, benefits and alternatives were discussed and informed consent was obtained. Prior to beginning the procedure, [place] Protocol was performed to confirm the patient's [...] was exchanged over the wire for a 16 Fr Thal catheter through which irrigation and mucin evacuation was performed. The Thal catheter was then exchanged over the wire for a new 16-Wallisian Oilmont catheter. Limited contrast injection through the catheter under fluoroscopic monitoring confirmed appropriate position of the drain in the common bile duct. The catheter was secured in position using TWO 0-Prolene sutures. A total of 4 mg alteplase reconstituted in sterile water was instilled through the catheter and allowed to dwell for 30 minutes. After that time, the catheter was reconnected to a new flush adaptor and Accordion drainage bag. A sterile dressing with ABD pad was applied. ESTIMATED BLOOD LOSS: None. CONDITION: Stable. DISCHARGED TO: Recovery and then home. FINDINGS: Contrast injection shows partially occluded biliary catheter with debris filling the common bile duct. Following drain exchange, the new catheter appeared in appropriate position within the common bile duct. Approximately 40 cc of mucin was evacuated through the Thal catheter until the aspirated fluid was thin and bilious. Alteplase was instilled to improve catheter output. 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 Patient reports improved outcome with frequent drain exchange and instillation of alteplase. PROVIDER PRESENCE: Nicolasa Moreira PA-C, was present from the beginning to the end of the procedure. SEDATION: Conscious sedation was used for the procedure. TECHNIQUE: The risks, benefits and alternatives were discussed and informed consent was obtained. Prior to beginning the procedure, [place] Protocol was performed to confirm the patient's [...] The catheter was then divided and a eTutorson wire was advanced through the catheter under fluoroscopic monitoring. The existing catheter was exchanged over the wire for a 16 Fr Thal catheter through which irrigation and mucin evacuation was performed. The Thal catheter was then exchanged over the wire for a new 16-Wallisian Oilmont catheter. Limited contrast injection through the catheter under fluoroscopic monitoring confirmed appropriate position of the drain in the common bile duct. The catheter was secured in position using TWO 0-Prolene sutures. A total of 4 mg alteplase reconstituted in sterile water was instilled through the catheter and allowed to dwell for 30 minutes. After that time, the catheter was reconnected to a new flush adaptor and Accordion drainage bag. A sterile dressing with ABD pad was applied. ESTIMATED BLOOD LOSS: None. CONDITION: Stable. DISCHARGED TO: Recovery and then home. FINDINGS: Contrast injection shows partially occluded biliary catheter with debris filling the common bile duct. Following drain exchange, the new catheter appeared in appropriate position within the common bile duct. Approximately 40 cc of mucin was evacuated through the Thal catheter until the aspirated fluid was thin and bilious. Alteplase was instilled to improve catheter output. IMPRESSION: Successful biliary catheter exchange and instillation of alteplase as described above. PLAN: The patient will return for interval biliary drainage catheter exchange in 1 week with repeat administration of alteplase. Would recommend repeating the mucin aspiration through a Thal as performed above. Continue to flush drain with 20 mL normal saline 3 times daily. [facility] - [phone] Electronically signed by: Nicolasa Moreira PA-C Jennifer C[facility] IR PROCEDURES Final Result * IR Change Biliary Drainage Catheter External Or Internal External (01/11/2025 1:18 PM CDT) Anatomical Region Laterality Modality Body N/A X-Ray Angiograph y 01/11/2025 3:17 PM CDT Impressions 01/11/2025 3:17 PM CDT Successful biliary catheter exchange and instillation of alteplase as described above. PLAN: The patient will return for interval biliary drainage catheter exchange in 1 week with repeat administration of alteplase. Continue to flush drain with 20 mL normal saline 3 times daily. 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 Patient reports improved outcome with frequent drain exchange and instillation of alteplase. PROVIDER PRESENCE: Jennifer Perry PA-C, was present from the beginning to the end of the procedure. SEDATION: Conscious sedation was used for the procedure. TECHNIQUE: The risks, benefits and alternatives were discussed and informed consent was obtained. Prior to beginning the procedure, [place] Protocol was performed to confirm the patient's [...] catheter was then divided and an Amplatz wire was advanced through the catheter under fluoroscopic monitoring. The existing catheter was exchanged over the wire for a new 16-Wallisian Oilmont catheter. Limited contrast injection through the catheter under fluoroscopic monitoring confirmed appropriate position of the drain in the common bile duct. The catheter was secured in position using TWO 0-Prolene sutures. A total of 4 mg alteplase reconstituted in sterile water was instilled through the catheter and allowed to dwell for 30 minutes. After that time, the catheter was reconnected to a new flush adaptor and Accordion drainage bag. A sterile dressing with ABD pad was applied. ESTIMATED BLOOD LOSS: None. CONDITION: Stable. DISCHARGED TO: Recovery and then home. FINDINGS: Contrast injection shows partially occluded biliary catheter with debris filling the common bile duct. Following drain exchange, the new catheter appeared in appropriate position within the common bile duct. Alteplase was instilled to improve catheter output. 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 Patient reports improved outcome with frequent drain exchange and instillation of alteplase. PROVIDER PRESENCE: Jennifer Perry PA-C, was present from the beginning to the end of the procedure. SEDATION: Conscious sedation was used for the procedure. TECHNIQUE: The risks, benefits and alternatives were discussed and informed consent was obtained. Prior to beginning the procedure, [place] Protocol was performed to confirm the patient's [...] catheter was then divided and an Amplatz wire was advanced through the catheter under fluoroscopic monitoring. The existing catheter was exchanged over the wire for a new 16-Wallisian Oilmont catheter. Limited contrast injection through the catheter under fluoroscopic monitoring confirmed appropriate position of the drain in the common bile duct. The catheter was secured in position using TWO 0-Prolene sutures. A total of 4 mg alteplase reconstituted in sterile water was instilled through the catheter and allowed to dwell for 30 minutes. After that time, the catheter was reconnected to a new flush adaptor and Accordion drainage bag. A sterile dressing with ABD pad was applied. ESTIMATED BLOOD LOSS: None. CONDITION: Stable. DISCHARGED TO: Recovery and then home. FINDINGS: Contrast injection shows partially occluded biliary catheter with debris filling the common bile duct. Following drain exchange, the new catheter appeared in appropriate position within the common bile duct. Alteplase was instilled to improve catheter output. IMPRESSION: Successful biliary catheter exchange and instillation of alteplase as described above. PLAN: The patient will return for interval biliary drainage catheter exchange in 1 week with repeat administration of alteplase. Continue to flush drain with 20 mL normal saline 3 times daily. [facility] - [phone] Electronically signed by: Jennifer Perry PA-C Deven [...] was obtained. Prior to beginning the procedure, [place] Protocol was performed to confirm the patient's [...] The catheter was then divided and a eTutorson wire was advanced through the catheter under fluoroscopic monitoring. The existing catheter was exchanged over the wire for a new 16-Wallisian cope catheter. Limited contrast injection through the [...] was obtained. Prior to beginning the procedure, [place] Protocol was performed to confirm the patient's [...] The catheter was then divided and a eTutorson wire was advanced through the catheter under fluoroscopic monitoring. The existing catheter was exchanged over the wire for a new 16-Wallisian cope catheter. Limited contrast injection through the [...] was obtained. Prior to beginning the procedure, [place] Protocol was performed to confirm the patient's [...] catheter under fluoroscopic monitoring. The existing 18 Wallisian catheter was exchanged over the guidewire for an 18 Wallisian sheath and this was used to aspirate [...] the end of the procedure, new 16 Wallisian locking pigtail catheter was placed with its [...] was obtained. Prior to beginning the procedure, [place] Protocol was performed to confirm the patient's [...] The catheter was then divided and a eTutorson wire was advanced through the catheter under fluoroscopic monitoring. The existing 18 Wallisian catheter was exchanged over the guidewire for an 18 Wallisian sheath and this was used to aspirate [...] the end of the procedure, new 16 Wallisian locking pigtail catheter was placed with its [...] TPA. Electronically signed by: Seun Madrid M.D. us Herb [facility] IM[facility] IR PROCEDURES Fin al [...] questions arise, please contact us by calling [phone]. Electronically signed by: Jennifer Perry PA-C Narrative [...] patient. TECHNIQUE: Prior to beginning the procedure, [place] Protocol was used to confirm the patient's identity and planned procedure. Fluoroscopy time has been recorded in the electronic medical record. Maximum sterile barriers including cap, mask, hand hygiene, sterile gloves, sterile gown, large sterile drape and 2% chlorhexidine for cutaneous antisepsis were used. After obtaining a branch office manager image, the right upper quadrant 18-Wallisian Oilmont external biliary catheter was injected with dilute contrast and multiple diagnostic fluoroscopic spot images were obtained. The skin overlying the collection was sterilely prepped, draped and infiltrated with 1% lidocaine. The catheter was then exchanged over a Bentson guidewire for a new 18-Wallisian Haroon catheter with additional sideholes. The Haroon catheter was used to inject 0.9% sodium chloride and then the drain was attached to either wall suction or the Accordion suction bag. These steps were repeated numerous times until over 300 cc mucinous biliary fluid was drained. Ultimately a new 18-Wallisian Oilmont catheter was exchanged over the wire and [...] patient. TECHNIQUE: Prior to beginning the procedure, [place] Protocol was used to confirm the patient's identity and planned procedure. Fluoroscopy time has been recorded in the electronic medical record. Maximum sterile barriers including cap, mask, hand hygiene, sterile gloves, sterile gown, large sterile drape and 2% chlorhexidine for cutaneous antisepsis were used. After obtaining a branch office manager image, the right upper quadrant 18-Wallisian Oilmont external biliary catheter was injected with dilute contrast and multiple diagnostic fluoroscopic spot images were obtained. The skin overlying the collection was sterilely prepped, draped and infiltrated with 1% lidocaine. The catheter was then exchanged over a Bentson guidewire for a new 18-Wallisian Haroon catheter with additional sideholes. The Haroon catheter was used to inject 0.9% sodium chloride and then the drain was attached to either wall suction or the Accordion suction bag. These steps were repeated numerous times until over 300 cc mucinous biliary fluid was drained. Ultimately a new 18-Wallisian Oilmont catheter was exchanged over the wire and [...] questions arise, please contact us by calling [phone]. Electronically signed by: Jennifer Perry PA-C us Nicolasa CEDILLO IMG IR PROCEDURES Fin al Result * IR Change Biliary Drainage Catheter External Or Internal External (12/20/2024 1:43 PM CDT) Anatomical Region Laterality Modality Body N/A X-Ray Angiograph y 12/20/2024 3:40 PM CDT Impressions 12/20/2024 3:40 PM CDT Successful exchange of 18 Fr Oilmont catheter in the common bile duct. PLAN: [...] catheter was exchanged for an 18 Fr Oilmont catheter within the significantly distended common bile [...] was obtained. Prior to beginning the procedure, [place] Protocol was performed to confirm the patient's identity and the planned procedure. The fluoroscopy time has been recorded in the electronic medical record. Under fluoroscopic guidance, over a eTutorson guidewire, the existing 18 Wallisian cope catheter was exchanged for a new 18 Fr Oilmont catheter. The loop was formed in the [...] Initial images showed a patent 18 Fr Oilmont catheter with loop still in place in the dilated common bile duct. The final fluoroscopic image demonstrates appropriate positioning of a new 18 Wallisian cope loop within the common bile duct. [...] catheter was exchanged for an 18 Fr Oilmont catheter within the significantly distended common bile [...] was obtained. Prior to beginning the procedure, [place] Protocol was performed to confirm the patient's identity and the planned procedure. The fluoroscopy time has been recorded in the electronic medical record. Under fluoroscopic guidance, over a Bentson guidewire, the existing 18 Wallisian cope catheter was exchanged for a new 18 Fr Oilmont catheter. The loop was formed in the [...] Initial images showed a patent 18 Fr Oilmont catheter with loop still in place in the dilated common bile duct. The final fluoroscopic image demonstrates appropriate positioning of a new 18 Wallisian cope loop within the common bile duct. IMPRESSION: Successful exchange of 18 Fr Oilmont catheter in the common bile duct. PLAN: The patient should return once a month for routine external biliary drain which is to be reattached to an accordion suction bag with a flush port to be flushed with 20 cc sterile saline once a day. Electronically signed by: Nicolasa Moreira PA-C us Nicolasa CEDILLO IM IR PROCEDURES Fin al [...] LAB BLOOD ORDERABLES Final Result [facility]THA [facility] [address] [facility] Department [place] [address] * XR Chest 1 Vw Portable (If [...] Loi Frias M.D., JR T: Report ID: [id number] Reading Location: [id number] Procedure Note Loi Frias MD - 12/15/2024 [...] Loi Frias M.D., JR T: Report ID: [id number] Reading Location: [id number] us Cuauhtemoc Isaac MD IMG XR PROCEDURES Final Re sult * ECG 12 lead (12/15/2024 8:40 AM CDT) Ventricular Rate EKG/Min 97 BPM [facility] Atrial Rate 97 BPM [facility] [place]-Interval (MSEC) 152 ms [facility] QRS-Interval (MSEC) 80 ms [facility] QT-Interval (MSEC) 360 ms [facility] QTc 457 ms [facility] P [place] 69 degrees [facility] R [place] 9 degrees [facility] T [place] 73 degrees [facility] Diagnosis Normal sinus rhythm Normal ECG When compared with ECG of 06-AUG-2024 06:37, No significant change was found Confirmed by NEHA RUSSELL M.D. ([id number]) on 12/15/2024 10:52:21 AM [facility] 12/15/2024 8:40 AM CDT 12/15/2024 10:52 AM CDT us Cuauhtemoc Isaac MD ECG ORDERABLES Final Resu lt [facility] * [place] [facility] ILL/INJURED PATIENT INIT [...] MD LAB BLOOD ORDERABLES Final Result MARTHA [address] [facility] Department [place] [address] * (ABNORMAL) eGFR (12/15/2024 8:27 AM CDT) Pathologist [facility] eGFR 34(L) >=60 mL/min/1. 73 m2 [...] Isaac MD LAB BLOOD ORDERABLES Final Result [facility] [address] [facility] Department [place] [address] * (ABNORMAL) Differential, auto (12/15/2024 8:27 AM CDT) Neutrophil abs 2.34 1.50 - 6.50 K/cumm Imm gran abs 0.02 0.00 - 0.10 K/cumm [facility] Lymphocyte abs 0.53(L) 0.80 - 3.30 K/cumm [facility] Monocyte abs 0.45 0.20 - 0.80 K/cumm [facility] Eosinophil abs 0.18 0.00 - 0.50 K/cumm [facility] Basophil abs 0.01 0.00 - 0.10 K/cumm [facility] Neutrophil pct 66.3 % [facility] Comment: Interpretive Data Percent cell count reference ranges are not reported, since discordance with absolute values may lead to misinterpretation of CBC data. Current Interpretive Data was last revised on 2017. Imm gran pct 0.6 % [facility] Comment: Interpretive Data Percent cell count reference ranges are not reported, since discordance with absolute values may lead to misinterpretation of CBC data. Current Interpretive Data was last revised on 2017. Lymphocyte pct 15.0 % [facility] Comment: Interpretive Data Percent cell count reference ranges are not reported, since discordance with absolute values may lead to misinterpretation of CBC data. Current Interpretive Data was last revised on 2017. Monocyte pct 12.7 % [facility] Comment: Interpretive Data Percent cell count reference ranges are not reported, since discordance with absolute values may lead to misinterpretation of CBC data. Current Interpretive Data was last revised on 2017. Eosinophil pct 5.1 % [facility] Comment: Interpretive Data Percent cell count reference ranges are not reported, since discordance with absolute values may lead to misinterpretation of CBC data. Current Interpretive Data was last revised on 2017. Basophil pct 0.3 % [facility] Comment: Interpretive Data Percent cell count reference ranges are not reported, since discordance with absolute values may lead to misinterpretation of CBC data. Current Interpretive Data was last revised on 2017. Blood 12/15/2024 8:27 AM CDT 12/15/2024 8:29 AM CDT Cuauhtemoc Isaac MD LAB BLOOD ORDERABLES Final Result Performing Organization Address [facility] Co de Phone Number MARTHA [address] [place] [address] * (ABNORMAL) CBC with auto differential (12/15/2024 8:27 AM CDT) WBC 3.53(L) 3.80 - 9.90 K/cumm Hgb 8.7(L) 13.0 - 17.5 g/dL [facility] Hct 28.4(L) 38.9 - 50.3 % [facility] Plt 108(L) 150 - 400 K/cumm [facility] MPV 10.4 9.1 - 12.3 fL [facility] RBC 3.11(L) 4.30 - 5.80 M/cumm [facility] MCV 91.3 81.3 - 96.4 fL [facility] MCH 28.0 27.1 - 33.3 pg [facility] MCHC 30.6(L) 32.3 - 35.7 g/dL [facility] RDW CV 16.9(H) 11.1 - 14.9 % [facility] RDW SD 56.8(H) 35.7 - 48.1 fL [facility] NRBC abs 0.00 0.00 - 0.01 K/cumm [facility] Blood 12/15/2024 8:27 AM CDT 12/15/2024 8:29 AM CDT Cuauhtemoc Isaac MD LAB BLOOD ORDERABLES Final Result Performing Organization Address City/[facility]/ZIP Co de Phone Number MARTHA [address] [place] [address] * (ABNORMAL) Comprehensive metabolic panel (12/15/2024 8:27 AM CDT) Pathologist [facility] Sodium 141 135 - 145 mmol/L Potassium, pl 4.4 3.3 - 4.9 mmol/L [facility] Chloride 110 97 - 110 mmol/L [facility] CO2 18(L) 22 - 32 mmol/L [facility] Anion gap 13 2 - 15 mmol/L [facility] BUN 27(H) 6 - 25 mg/dL [facility] Creatinine 2.01(H) 0.80 - 1.30 mg/dL [facility] Glucose 98 70 - 199 mg/dL [facility] Comment: Interpretive Data Fasting glucose >/= 126 [...] 2022. Calcium 8.9 8.5 - 10.3 mg/dL [facility] Bilirubin, total 1.1 0.1 - 1.2 mg/dL [facility] Protein, pl 7.0 6.5 - 8.5 g/dL [facility] Albumin 3.7 3.5 - 5.0 g/dL [facility] Alk phos 107 40 - 130 Units/L [facility] ALT 5(L) 7 - 55 Units/L [facility] AST 12 10 - 50 Units/L [facility] Blood 12/15/2024 8:27 AM CDT 12/15/2024 8:29 AM CDT us Cuauhtemoc Isaac MD LAB BLOOD ORDERABLES Final Result [facility] [address] [facility] Department [place] [address] * IR Change Biliary Drainage Catheter External [...] leakage. He currently has been a 16 Wallisian Haroon internal/external biliary drain which is now [...] was obtained. Prior to beginning the procedure, [place] Protocol was performed to confirm the patient's identity and the planned procedure. The fluoroscopy time has been recorded in the electronic medical record. The patient was positioned on the fluoroscopy table and a branch office manager image obtained. The existing port and catheter was exchanged over a guidewire for a 10 Wallisian sheath and contrast was injected to side [...] more sense long-term. Therefore, a new 16 Wallisian Haroon catheter was used to irrigate the [...] was made. Over a guidewire, an 18 Wallisian cope catheter was inserted into the common [...] and then to outpatient recovery FINDINGS: A branch office manager image demonstrates many of the sideholes of [...] image demonstrates appropriate positioning of an 18 Wallisian cope loop within the common bile duct [...] leakage. He currently has been a 16 Wallisian Haroon internal/external biliary drain which is now [...] was obtained. Prior to beginning the procedure, [place] Protocol was performed to confirm the patient's identity and the planned procedure. The fluoroscopy time has been recorded in the electronic medical record. The patient was positioned on the fluoroscopy table and a branch office manager image obtained. The existing port and catheter was exchanged over a guidewire for a 10 Wallisian sheath and contrast was injected to side [...] more sense long-term. Therefore, a new 16 Wallisian Haroon catheter was used to irrigate the [...] was made. Over a guidewire, an 18 Wallisian cope catheter was inserted into the common [...] and then to outpatient recovery FINDINGS: A branch office manager image demonstrates many of the sideholes of [...] image demonstrates appropriate positioning of an 18 Wallisian cope loop within the common bile duct [...] CDT us Gigi Jackman MD LAB BLOOD ORDPadmini MEYERS Final Result [facility] [address] Department [place] [address] * (ABNORMAL) Comprehensive metabolic panel (11/15/2024 2:55 PM CDT) Sodium 141 135 - 145 mmol/L Potassium, pl 4.2 3.3 - 4.9 mmol/L [facility] Chloride 113(H) 97 - 110 mmol/L [facility] CO2 17(L) 22 - 32 mmol/L [facility] Anion gap 11 2 - 15 mmol/L [facility] BUN 41(H) 6 - 25 mg/dL [facility] Creatinine 1.89(H) 0.80 - 1.30 mg/dL [facility] Glucose 98 70 - 199 mg/dL [facility] Comment: Interpretive Data Fasting glucose >/= 126 [...] 2022. Calcium 8.8 8.5 - 10.3 mg/dL [facility] Bilirubin, total 2.5(H) 0.1 - 1.2 mg/dL [facility] Protein, pl 6.3(L) 6.5 - 8.5 g/dL [facility] Albumin 2.6(L) 3.5 - 5.0 g/dL [facility] Alk phos 221(H) 40 - 130 Units/L [facility] ALT 21 7 - 55 Units/L [facility] AST 18 10 - 50 Units/L [facility] Blood 11/15/2024 2:55 PM CDT 11/15/2024 3:14 PM CDT Gigi Jackman MD LAB BLOOD NIKHIL MEYERS Final Result Performing Organization Address City/[facility]/ZIP Co de Phone Number [facility] [address] Department [place] [address] * (ABNORMAL) eGFR (11/13/2024 8:30 AM CDT) Pathologist [facility] eGFR 27(L) >=60 mL/min/1. 73 m2 Comment: [...] Gallardo MD LAB BLOOD ORDERABLES Final Result Performing Organization Address City/[facility]/ZIP Co de Phone Number [facility] [address] Department of Laboratories [place], [place] [id number] * (ABNORMAL) Differential, auto (11/13/2024 8:30 AM CDT) Pathologist [facility] Neutrophil abs 5.33 1.50 - 6.50 K/cumm Imm gran abs 0.28(H) 0.00 - 0.10 K/cumm [facility] Lymphocyte abs 0.55(L) 0.80 - 3.30 K/cumm [facility] Monocyte abs 0.66 0.20 - 0.80 K/cumm [facility] Eosinophil abs 0.23 0.00 - 0.50 K/cumm [facility] Basophil abs 0.02 0.00 - 0.10 K/cumm [facility] Neutrophil pct 75.3 % [facility] Comment: Interpretive Data Percent cell count reference ranges are not reported, since discordance with absolute values may lead to misinterpretation of CBC data. Current Interpretive Data was last revised on 2017. Imm gran pct 4.0 % [facility] Comment: Interpretive Data Percent cell count reference ranges are not reported, since discordance with absolute values may lead to misinterpretation of CBC data. Current Interpretive Data was last revised on 2017. Lymphocyte pct 7.8 % [facility] Comment: Interpretive Data Percent cell count reference ranges are not reported, since discordance with absolute values may lead to misinterpretation of CBC data. Current Interpretive Data was last revised on 2017. Monocyte pct 9.3 % [facility] Comment: Interpretive Data Percent cell count reference ranges are not reported, since discordance with absolute values may lead to misinterpretation of CBC data. Current Interpretive Data was last revised on 2017. Eosinophil pct 3.3 % [facility] Comment: Interpretive Data Percent cell count reference ranges are not reported, since discordance with absolute values may lead to misinterpretation of CBC data. Current Interpretive Data was last revised on 2017. Basophil pct 0.3 % [facility] Comment: Interpretive Data Percent cell count reference ranges are not reported, since discordance with absolute values may lead to misinterpretation of CBC data. Current Interpretive Data was last revised on 2017. Blood 11/13/2024 8:30 AM CDT 11/13/2024 8:37 AM CDT us Cristiano Gallardo MD LAB BLOOD ORDERABLES Final Result [facility] [address] Department [place] [address] * (ABNORMAL) CBC with auto differential (11/13/2024 8:30 AM CDT) [facility] WBC 7.07 3.80 - 9.90 K/cumm Hgb 8.0(L) 13.0 - 17.5 g/dL [facility] Hct 25.9(L) 38.9 - 50.3 % [facility] Plt 237 150 - 400 K/cumm [facility] MPV 10.7 9.1 - 12.3 fL [facility] RBC 2.87(L) 4.30 - 5.80 M/cumm [facility] MCV 90.2 81.3 - 96.4 fL [facility] MCH 27.9 27.1 - 33.3 pg [facility] MCHC 30.9(L) 32.3 - 35.7 g/dL [facility] RDW CV 17.2(H) 11.1 - 14.9 % [facility] RDW SD 55.9(H) 35.7 - 48.1 fL [facility] NRBC abs 0.00 0.00 - 0.01 K/cumm [facility] Blood 11/13/2024 8:30 AM CDT 11/13/2024 8:37 AM CDT us Cristiano Gallardo MD LAB BLOOD ORDERABLES Final Result [facility] [address] Department [place] [address] * (ABNORMAL) Comprehensive metabolic panel (11/13/2024 8:30 AM CDT) [facility] Sodium 141 135 - 145 mmol/L Potassium, pl 4.3 3.3 - 4.9 mmol/L [facility] Chloride 111(H) 97 - 110 mmol/L [facility] CO2 16(L) 22 - 32 mmol/L [facility] Anion gap 14 2 - 15 mmol/L [facility] BUN 50(H) 6 - 25 mg/dL [facility] Creatinine 2.44(H) 0.80 - 1.30 mg/dL [facility] Glucose 108 70 - 199 mg/dL [facility] Comment: Interpretive Data Fasting glucose >/= 126 [...] 2022. Calcium 8.7 8.5 - 10.3 mg/dL [facility] Bilirubin, total 3.3(H) 0.1 - 1.2 mg/dL [facility] Protein, pl 6.5 6.5 - 8.5 g/dL [facility] Albumin 2.7(L) 3.5 - 5.0 g/dL [facility] Alk phos 269(H) 40 - 130 Units/L [facility] ALT 26 7 - 55 Units/L [facility] AST 23 10 - 50 Units/L [facility] Blood 11/13/2024 8:30 AM CDT 11/13/2024 8:37 AM CDT us Cristiano Gallardo MD LAB BLOOD ORDERABLES Final Result [facility] [address] Department [place] [address] * (ABNORMAL) Urinalysis reflex to microscopic and culture Urine (11/12/2024 4:03 PM CDT) Color, ur Yellow Yellow Clarity, ur Clear Clear [facility] Specific gravity, ur 1.018 1.003 - 1.030 [facility] pH, urine 6.0 [facility] Comment: Interpretive Data U rine pH is affected by diet, medications, systemic acid-base disturbances, and renal tubular function. pH may affect urinary stone formation. For example, urine pH below 6.0 may help reduce the tendency for calcium phosphate stones and pH greater than 6.0 may reduce the tendency for uric acid stone formation. Source: [facility] Current Interpretive Data was last revised on 2017 Protein, ur ql 1+(A) Negative [facility] Glucose, ur ql Negative Negative [facility] Ketones, ur Negative Negative [facility] Bilirubin, ur Negative Negative [facility] Blood, ur 3+(A) Negative [facility] Urobilinogen, ur <2.0 <2.0 mg/dL [facility] Nitrite, ur Negative Negative [facility] Leukocyte esterase, ur Negative Negative [facility] UA reflex comment Reflex to microscopic UA will be performed. [facility] Urine 11/12/2024 4:03 PM CDT 11/12/2024 4:03 PM CDT Narrative [facility] - 11/12/2024 4:10 PM CDT If patient unable to urinate, straight cath us Thor Herr MD LAB MICROBIOLOGY - GENERAL O RDERABLES Final Result Performing Organization Address City/[facility]/ZIP Co de Phone Number [facility] [address] Department [place] [place] [address] * (ABNORMAL) Urinalysis, microscopic only (11/12/2024 4:03 PM CDT) WBC, ur 6-10(A) 0 - 5 /HPF RBC, ur >50(A) 0 - 2 /HPF [facility] Epithelial cells, squamous, ur 1-5 0 - 5 /HPF [facility] Bacteria, ur Trace(A) [facility] Culture Reflex Comment Reflex conditions for urine culture (WBC >10) not met. [facility] Urine 11/12/2024 4:03 PM CDT 11/12/2024 4:07 PM CDT Salinas Pro MD LAB URINE ORDERABLES Final R esult [facility] [address] Department of Laboratories [place], [place] [id number] * [place] Fluoroscopy < 1 Hour (11/12/2024 2:50 PM CDT) Narrative [facility] - 11/12/2024 2:51 PM CDT The images from this study are not interpreted by Radiology. Please refer to the physician's procedure / OR operative note. us Cristiano Gallardo MD IMG FLUOROSCOPY PROCEDURES Final Result [email or web address] * Small bowel enteroscopy (11/12/2024 2:28 PM CDT) Anatomical Region Laterality Modality Other Narrative Procedure Note Cristiano Gallardo MD - 11/12/2024 2:28 PM CDT ENDOSCOPY LAB Patient Name: Lee Cotto Procedure Date: 11/12/2024 2:28 PM Admit Type: Inpatient Room: [facility] Date of : 1950 [...] the days following this procedure please call [phone] ask for my nurse, Vianey Benitez. After hours and evenings please call [phone] and speak to theGI fellow induction machine setter. Please tell the fellow that Dr. Gallardo did your procedure and that you were instructed to have the fellow call me or thephysician covering for me to discuss the management of your condition. If you have an urgent problem, please goto the nearest emergency room and have the ER doctorcall my office during the day or [facility] transfer ([phone]) center after hours and weekends to arrange [...] decreases. Electronically signed by: Mik Hodge MD [facility] 11/12/2024 3:58 PM CDT EXAMINATION: BILIARY TUBE [...] was obtained. Prior to beginning the procedure, [place] Protocol was performed to confirm the patient's [...] advanced through the catheter under fluoroscopic monitoring. 18-Wallisian sheath was placed. A 2nd guidewire was then placed in the proximal jejunum. Over this guidewire, a 14-Wallisian suction catheter was used to aspirate mucosal debris within the CBD stent and bile ducts. Repeat cholangiogram was performed. Subsequently over the guidewire, an 18-Wallisian Haroon internal/external catheter was advanced with its [...] was obtained. Prior to beginning the procedure, [place] Protocol was performed to confirm the patient's [...] advanced through the catheter under fluoroscopic monitoring. 18-Wallisian sheath was placed. A 2nd guidewire was then placed in the proximal jejunum. Over this guidewire, a 14-Wallisian suction catheter was used to aspirate mucosal debris within the CBD stent and bile ducts. Repeat cholangiogram was performed. Subsequently over the guidewire, an 18-Wallisian Haroon internal/external catheter was advanced with its [...] MD LAB BLOOD ORDERABLES Final Resu lt [facility] [address] Department [place] [address] * (ABNORMAL) Differential, auto (11/12/2024 9:11 AM CDT) Neutrophil abs 5.49 1.50 - 6.50 K/cumm Imm gran abs 0.41(H) 0.00 - 0.10 K/cumm [facility] Lymphocyte abs 0.56(L) 0.80 - 3.30 K/cumm [facility] Monocyte abs 0.79 0.20 - 0.80 K/cumm [facility] Eosinophil abs 0.17 0.00 - 0.50 K/cumm [facility] Basophil abs 0.03 0.00 - 0.10 K/cumm [facility] Neutrophil pct 73.7 % [facility] Comment: Interpretive Data Percent cell count reference ranges are not reported, since discordance with absolute values may lead to misinterpretation of CBC data. Current Interpretive Data was last revised on 2017. Imm gran pct 5.5 % [facility] Comment: Interpretive Data Percent cell count reference ranges are not reported, since discordance with absolute values may lead to misinterpretation of CBC data. Current Interpretive Data was last revised on 2017. Lymphocyte pct 7.5 % [facility] Comment: Interpretive Data Percent cell count reference ranges are not reported, since discordance with absolute values may lead to misinterpretation of CBC data. Current Interpretive Data was last revised on 2017. Monocyte pct 10.6 % [facility] Comment: Interpretive Data Percent cell count reference ranges are not reported, since discordance with absolute values may lead to misinterpretation of CBC data. Current Interpretive Data was last revised on 2017. Eosinophil pct 2.3 % [facility] Comment: Interpretive Data Percent cell count reference ranges are not reported, since discordance with absolute values may lead to misinterpretation of CBC data. Current Interpretive Data was last revised on 2017. Basophil pct 0.4 % [facility] Comment: Interpretive Data Percent cell count reference ranges are not reported, since discordance with absolute values may lead to misinterpretation of CBC data. Current Interpretive Data was last revised on 2017. Blood 11/12/2024 9:11 AM CDT 11/12/2024 9:45 AM CDT us Nemo Blanco MD LAB BLOOD ORDERABLES Final Resu lt [facility] [address] [place] [address] * (ABNORMAL) CBC with auto differential (11/12/2024 9:11 AM CDT) Pathologist [facility] WBC 7.45 3.80 - 9.90 K/cumm Hgb 7.4(L) 13.0 - 17.5 g/dL [facility] Hct 23.9(L) 38.9 - 50.3 % [facility] Plt 257 150 - 400 K/cumm [facility] MPV 11.8 9.1 - 12.3 fL [facility] RBC 2.67(L) 4.30 - 5.80 M/cumm [facility] MCV 89.5 81.3 - 96.4 fL [facility] MCH 27.7 27.1 - 33.3 pg [facility] MCHC 31.0(L) 32.3 - 35.7 g/dL [facility] RDW CV 17.1(H) 11.1 - 14.9 % [facility] RDW SD 54.5(H) 35.7 - 48.1 fL [facility] NRBC abs 0.00 0.00 - 0.01 K/cumm [facility] Blood 11/12/2024 9:11 AM CDT 11/12/2024 9:45 AM CDT us Nemo Blanco MD LAB BLOOD ORDERABLES Final Resu lt Performing Organization Address City/[facility]/ZIP Co de Phone Number [facility] [address] [place] [address] * Magnesium (11/12/2024 9:11 AM CDT) [facility] Magnesium 1.6 1.4 - 2.5 mg/dL Blood 11/12/2024 9:11 AM CDT 11/12/2024 9:45 AM CDT Nemo Blanco MD LAB BLOOD ORDERABLES Final Resu lt Performing Organization Address City/[facility]/ZIP Co de Phone Number [facility] [address] Department [place] [address] * (ABNORMAL) Comprehensive metabolic panel (11/12/2024 9:11 AM CDT) Sodium 143 135 - 145 mmol/L Potassium, pl 4.6 3.3 - 4.9 mmol/L [facility] Chloride 111(H) 97 - 110 mmol/L [facility] CO2 18(L) 22 - 32 mmol/L [facility] Anion gap 14 2 - 15 mmol/L [facility] BUN 54(H) 6 - 25 mg/dL [facility] Creatinine 2.62(H) 0.80 - 1.30 mg/dL [facility] Glucose 81 70 - 199 mg/dL [facility] Comment: Interpretive Data Fasting glucose >/= 126 [...] 2022. Calcium 9.0 8.5 - 10.3 mg/dL [facility] Bilirubin, total 3.8(H) 0.1 - 1.2 mg/dL [facility] Protein, pl 6.5 6.5 - 8.5 g/dL [facility] Albumin 2.5(L) 3.5 - 5.0 g/dL [facility] Alk phos 298(H) 40 - 130 Units/L [facility] ALT 26 7 - 55 Units/L [facility] AST 25 10 - 50 Units/L [facility] Blood 11/12/2024 9:11 AM CDT 11/12/2024 9:45 AM CDT us Nemo Blanco MD LAB BLOOD ORDERABLES Final Resu lt [facility] [address] Department [place] [place] [address] * Transfuse RBC (11/11/2024 9:14 PM CDT) Blood Ivon Menjivar NP BLOOD TRANSFUSION ORDERA BLES Final Result [facility] [address] [place] [address] * CT Abdomen Pelvis W Contrast (11/11/2024 [...] lymphadenopathy For the purposes of quality assurance calibrator, this study was initially interpreted by teleradiology. [...] lymphadenopathy For the purposes of quality assurance calibrator, this study was initially interpreted by teleradiology. There is no significant discrepancy. Electronically signed by: Keri Valladares M.D. Ivon Menjivar NP IMG CT PROCEDURES Final Result * Type and screen (11/11/2024 4:28 PM CDT) Avnessa, indirect Negative ABO Rh A Positive [facility] Blood 11/11/2024 4:28 PM CDT 11/11/2024 4:42 PM CDT Narrative [facility] - 11/11/2024 5:18 PM CDT Has the patient had Daratumumab or Isatuximab in the past 6 months?->Unknown Ivon Menjivar NP LAB BLOOD BANK TEST ORDE LUIGI Final Result [facility] [address] Department [place] [address] * Prepare RBC: 1 Units (11/11/2024 4:05 PM CDT) [facility] Product code [id number] Unit Number [id number] [facility] Product Blood Type APOS [facility] Dispense Status PRESUMED TRANSFUSED [facility] Blood 11/11/2024 4:05 PM CDT Narrative [facility] - 11/12/2024 10:20 AM CDT Are special requirements needed? (All products are leukoreduced and CMV- safe)- >No Date required:-[id number] LRRBC # of [id number] Reasons:-Hgb <7 g/dL} Ivon Menjivar NP BLOOD BANK PRODUCT ORDER OBED Final Result Performing Organization Address City/[facility]/ZIP Co de Phone Number [facility] [address] [place] [address] * Sepsis Lactate w/ Reflex (11/11/2024 2:39 PM CDT) [facility] Sepsis Lactate 1.5 0.7 - 2.0 mmol/L Blood 11/11/2024 2:39 PM CDT 11/11/2024 2:44 PM CDT Thor Herr MD LAB BLOOD ORDERABLES Final R esult Performing Organization Address City/[facility]/ZIP Co de Phone Number [facility] [address] Department [place] [address] * (ABNORMAL) eGFR (11/11/2024 2:39 PM CDT) [facility] eGFR 24(L) >=60 mL/min/1. 73 m2 Comment: [...] MD LAB BLOOD ORDERABLES Final R esult [facility] [address] Department [place] [address] * (ABNORMAL) Differential, auto (11/11/2024 2:39 PM CDT) Neutrophil abs 6.20 1.50 - 6.50 K/cumm Imm gran abs 0.26(H) 0.00 - 0.10 K/cumm [facility] Lymphocyte abs 0.55(L) 0.80 - 3.30 K/cumm [facility] Monocyte abs 0.79 0.20 - 0.80 K/cumm [facility] Eosinophil abs 0.20 0.00 - 0.50 K/cumm [facility] Basophil abs 0.03 0.00 - 0.10 K/cumm [facility] Neutrophil pct 77.3 % [facility] Comment: Interpretive Data Percent cell count reference ranges are not reported, since discordance with absolute values may lead to misinterpretation of CBC data. Current Interpretive Data was last revised on 2017. Imm gran pct 3.2 % [facility] Comment: Interpretive Data Percent cell count reference ranges are not reported, since discordance with absolute values may lead to misinterpretation of CBC data. Current Interpretive Data was last revised on 2017. Lymphocyte pct 6.8 % [facility] Comment: Interpretive Data Percent cell count reference ranges are not reported, since discordance with absolute values may lead to misinterpretation of CBC data. Current Interpretive Data was last revised on 2017. Monocyte pct 9.8 % [facility] Comment: Interpretive Data Percent cell count reference ranges are not reported, since discordance with absolute values may lead to misinterpretation of CBC data. Current Interpretive Data was last revised on 2017. Eosinophil pct 2.5 % [facility] Comment: Interpretive Data Percent cell count reference ranges are not reported, since discordance with absolute values may lead to misinterpretation of CBC data. Current Interpretive Data was last revised on 2017. Basophil pct 0.4 % [facility] Comment: Interpretive Data Percent cell count reference ranges are not reported, since discordance with absolute values may lead to misinterpretation of CBC data. Current Interpretive Data was last revised on 2017. Blood 11/11/2024 2:39 PM CDT 11/11/2024 2:53 PM CDT us Thor Herr MD LAB BLOOD ORDERABLES Final R esult [facility] [address] Department [place] [address] * (ABNORMAL) CBC with auto differential (11/11/2024 2:39 PM CDT) WBC 8.03 3.80 - 9.90 K/cumm Hgb 6.5(L) 13.0 - 17.5 g/dL [facility] Hct 20.8(L) 38.9 - 50.3 % [facility] Plt 289 150 - 400 K/cumm [facility] MPV 11.7 9.1 - 12.3 fL [facility] RBC 2.37(L) 4.30 - 5.80 M/cumm [facility] MCV 87.8 81.3 - 96.4 fL [facility] MCH 27.4 27.1 - 33.3 pg [facility] MCHC 31.3(L) 32.3 - 35.7 g/dL [facility] RDW CV 17.7(H) 11.1 - 14.9 % [facility] RDW SD 55.3(H) 35.7 - 48.1 fL [facility] NRBC abs 0.00 0.00 - 0.01 K/cumm [facility] Blood 11/11/2024 2:39 PM CDT 11/11/2024 2:53 PM CDT us Thor Herr MD LAB BLOOD ORDERABLES Final R esult [facility] [address] Department [place] [address] * (ABNORMAL) Comprehensive metabolic panel (11/11/2024 2:39 PM CDT) Sodium 141 135 - 145 mmol/L Potassium, pl 4.3 3.3 - 4.9 mmol/L [facility] Chloride 107 97 - 110 mmol/L [facility] CO2 17(L) 22 - 32 mmol/L [facility] Anion gap 17(H) 2 - 15 mmol/L [facility] BUN 56(H) 6 - 25 mg/dL [facility] Creatinine 2.70(H) 0.80 - 1.30 mg/dL [facility] Glucose 107 70 - 199 mg/dL [facility] Comment: Interpretive Data Fasting glucose >/= 126 [...] 2022. Calcium 8.8 8.5 - 10.3 mg/dL [facility] Bilirubin, total 4.5(H) 0.1 - 1.2 mg/dL [facility] Protein, pl 6.9 6.5 - 8.5 g/dL [facility] Albumin 3.0(L) 3.5 - 5.0 g/dL [facility] Alk phos 309(H) 40 - 130 Units/L [facility] ALT 30 7 - 55 Units/L [facility] AST 25 10 - 50 Units/L [facility] Blood 11/11/2024 2:39 PM CDT 11/11/2024 2:53 PM CDT us Thor Herr MD LAB BLOOD ORDERABLES Final R esult [facility] [address] [place] [address] * Interventional Radiology Follow-up (10/31/2024 3:36 PM CDT) Anatomical Region Laterality Modality N/A X-Ray Angiograph y 11/01/2024 7:30 AM CDT Impressions 11/01/2024 7:30 AM CDT The patient was seen in holding. Roseau bag was removed. Two red caps placed [...] IMPRESSION: The patient was seen in holding. Rose[place] bag was removed. Two red caps placed [...] LAB BLOOD ORDERABLES Final Resul t [facility] [address] Department [place] [address] * (ABNORMAL) Differential, auto (10/28/2024 5:46 AM CDT) Neutrophil abs 7.94(H) 1.50 - 6.50 K/cumm Imm gran abs 0.16(H) 0.00 - 0.10 K/cumm [facility] Lymphocyte abs 0.65(L) 0.80 - 3.30 K/cumm [facility] Monocyte abs 0.77 0.20 - 0.80 K/cumm [facility] Eosinophil abs 0.20 0.00 - 0.50 K/cumm [facility] Basophil abs 0.02 0.00 - 0.10 K/cumm [facility] Neutrophil pct 81.5 % [facility] Comment: Interpretive Data Percent cell count reference ranges are not reported, since discordance with absolute values may lead to misinterpretation of CBC data. Current Interpretive Data was last revised on 2017. Imm gran pct 1.6 % [facility] Comment: Interpretive Data Percent cell count reference ranges are not reported, since discordance with absolute values may lead to misinterpretation of CBC data. Current Interpretive Data was last revised on 2017. Lymphocyte pct 6.7 % [facility] Comment: Interpretive Data Percent cell count reference ranges are not reported, since discordance with absolute values may lead to misinterpretation of CBC data. Current Interpretive Data was last revised on 2017. Monocyte pct 7.9 % [facility] Comment: Interpretive Data Percent cell count reference ranges are not reported, since discordance with absolute values may lead to misinterpretation of CBC data. Current Interpretive Data was last revised on 2017. Eosinophil pct 2.1 % [facility] Comment: Interpretive Data Percent cell count reference ranges are not reported, since discordance with absolute values may lead to misinterpretation of CBC data. Current Interpretive Data was last revised on 2017. Basophil pct 0.2 % [facility] Comment: Interpretive Data Percent cell count reference ranges are not reported, since discordance with absolute values may lead to misinterpretation of CBC data. Current Interpretive Data was last revised on 2017. Blood 10/28/2024 5:46 AM CDT 10/28/2024 6:25 AM CDT Jessee Fletcher MD LAB BLOOD ORDERABLES Final Resul t Performing Organization Address [facility] Co de Phone Number [facility] [address] [place] [place] [address] * (ABNORMAL) CBC with auto differential (10/28/2024 5:46 AM CDT) WBC 9.74 3.80 - 9.90 K/cumm Hgb 7.2(L) 13.0 - 17.5 g/dL [facility] Hct 23.8(L) 38.9 - 50.3 % [facility] Plt 204 150 - 400 K/cumm [facility] MPV 10.4 9.1 - 12.3 fL [facility] RBC 2.59(L) 4.30 - 5.80 M/cumm [facility] MCV 91.9 81.3 - 96.4 fL [facility] MCH 27.8 27.1 - 33.3 pg [facility] MCHC 30.3(L) 32.3 - 35.7 g/dL [facility] RDW CV 15.8(H) 11.1 - 14.9 % [facility] RDW SD 53.4(H) 35.7 - 48.1 fL [facility] NRBC abs 0.00 0.00 - 0.01 K/cumm [facility] Blood 10/28/2024 5:46 AM CDT 10/28/2024 6:25 AM CDT Jessee Fletcher MD LAB BLOOD ORDERABLES Final Resul t Performing Organization Address [facility]/ZIP Co de Phone Number [facility] [address] [place] [address] * (ABNORMAL) Comprehensive metabolic panel (10/28/2024 5:46 AM CDT) Pathologist [facility] Sodium 142 135 - 145 mmol/L Potassium, pl 3.5 3.3 - 4.9 mmol/L [facility] Chloride 110 97 - 110 mmol/L [facility] CO2 22 22 - 32 mmol/L [facility] Anion gap 10 2 - 15 mmol/L [facility] BUN 30(H) 6 - 25 mg/dL [facility] Creatinine 1.81(H) 0.80 - 1.30 mg/dL [facility] Glucose 81 70 - 199 mg/dL [facility] Comment: Interpretive Data Fasting glucose >/= 126 [...] 2022. Calcium 8.8 8.5 - 10.3 mg/dL [facility] Bilirubin, total 1.5(H) 0.1 - 1.2 mg/dL [facility] Protein, pl 5.9(L) 6.5 - 8.5 g/dL [facility] Albumin 2.5(L) 3.5 - 5.0 g/dL [facility] Alk phos 90 40 - 130 Units/L [facility] ALT 9 7 - 55 Units/L [facility] AST 13 10 - 50 Units/L [facility] Blood 10/28/2024 5:46 AM CDT 10/28/2024 6:25 AM CDT us Jessee Fletcher MD LAB BLOOD ORDERABLES Final Resul t [facility] [address] Department [place] [address] * Aerobic culture and gram stain Sputum, induced Sputum (10/27/2024 6:52 AM CDT) Direct Specimen Exam Stain: No squamous epithelial cells seen. No polymorphonuclear leukocytes seen. No organisms seen. Report Final Report: Light growth normal joyce [facility] Sputum, induced (Sputum) 10/27/2024 6:52 AM CDT 10/27/2024 7:18 AM CDT Jerald Maria MD LAB MICROBIOLOGY - GENERAL ORDER OBED Final Result Performing Organization Address [facility] Co de Phone Number [facility] [address] Department [place] [address] * (ABNORMAL) Urinalysis reflex to microscopic and culture Urine, clean voided (10/27/2024 6:37 AM CDT) Color, ur Yellow Yellow Clarity, ur Clear Clear [facility] Specific gravity, ur 1.018 1.003 - 1.030 [facility] pH, urine 6.0 [facility] Comment: Interpretive Data U rine pH is affected by diet, medications, systemic acid-base disturbances, and renal tubular function. pH may affect urinary stone formation. For example, urine pH below 6.0 may help reduce the tendency for calcium phosphate stones and pH greater than 6.0 may reduce the tendency for uric acid stone formation. Source: [facility] Current Interpretive Data was last revised on 2017 Protein, ur ql 1+(A) Negative [facility] Glucose, ur ql Negative Negative [facility] Ketones, ur Negative Negative [facility] Bilirubin, ur Negative Negative [facility] Blood, ur Negative Negative [facility] Urobilinogen, ur <2.0 <2.0 mg/dL [facility] Nitrite, ur Negative Negative [facility] Leukocyte esterase, ur Negative Negative [facility] UA reflex comment Reflex to microscopic UA will be performed. [facility] Urine, clean voided 10/27/2024 6:37 AM CDT 10/27/2024 6:37 AM CDT Jerald Maria MD LAB MICROBIOLOGY - GENERAL ORDER OBED Final Result Performing Organization Address [facility] Co de Phone Number [facility] [address] [facility] [place] [address] * Sodium, urine, random (10/27/2024 6:37 AM CDT) Sodium, ur 87 mmol/L Comment: Interpretive Data No reference range established. Current interpretive data was last revised 2018. Urine 10/27/2024 6:37 AM CDT 10/27/2024 6:37 AM CDT us Jerald Maria MD LAB URINE ORDERABLES Final Resul t Performing Organization Address City/[facility]/ZIP Co de Phone Number [facility] [address] [place] [address] * Creatinine, urine, random (10/27/2024 6:37 AM CDT) Creatinine Ur 82.8 mg/dL Comment: Interpretive Data No reference range established. Current interpretive data was last revised 2018. Urine 10/27/2024 6:37 AM CDT 10/27/2024 6:37 AM CDT us Jerald Maria MD LAB URINE ORDERABLES Final Resul t Performing Organization Address [facility] Co de Phone Number [facility] [address] [place] [address] * (ABNORMAL) Urinalysis, microscopic only (10/27/2024 6:37 AM CDT) WBC, ur 0-5 0 - 5 /HPF RBC, ur 0-2 0 - 2 /HPF [facility] Epithelial cells, squamous, ur 1-5 0 - 5 /HPF [facility] Mucous, ur Present(A) [facility] Culture Reflex Comment Reflex conditions for urine culture (WBC >10) not met. [facility] Urine, clean voided 10/27/2024 6:37 AM CDT 10/27/2024 6:37 AM CDT Jerald Maria MD LAB URINE ORDERABLES Final Resul t Performing Organization Address [facility] Co de Phone Number [facility] [address] Department [employer] [place], [place] [id number] * Strep pneumoniae antigen, urine Urine (10/27/2024 [...] ORDER OBED Final Result Performing Organization Address [facility] de Phone Number [facility] [address] [place] [place] [address] * Legionella antigen Urine (10/27/2024 6:33 AM CDT) Legionella Ag Negative Negative Comment: Interpretive Data This test detects only Legionella pneumophila serogroup 1 antigen. Current interpretive data was last revised on 2019. Urine 10/27/2024 6:33 AM CDT 10/27/2024 6:44 AM CDT Jerald Maria MD LAB MICROBIOLOGY - GENERAL ORDER OBED Final Result Performing Organization Address [facility] Co de Phone Number [facility] [address] Department of [employer] [place], [place] [address] * (ABNORMAL) eGFR (10/27/2024 6:11 AM CDT) [...] MD LAB BLOOD ORDERABLES Final Resul t [facility] [address] Department [place] [address] * (ABNORMAL) Differential, auto (10/27/2024 6:11 AM CDT) [facility] Neutrophil abs 7.14(H) 1.50 - 6.50 K/cumm Imm gran abs 0.16(H) 0.00 - 0.10 K/cumm [facility] Lymphocyte abs 0.50(L) 0.80 - 3.30 K/cumm [facility] Monocyte abs 0.71 0.20 - 0.80 K/cumm [facility] Eosinophil abs 0.21 0.00 - 0.50 K/cumm [facility] Basophil abs 0.03 0.00 - 0.10 K/cumm [facility] Neutrophil pct 81.7 % [facility] Comment: Interpretive Data Percent cell count reference ranges are not reported, since discordance with absolute values may lead to misinterpretation of CBC data. Current Interpretive Data was last revised on 2017. Imm gran pct 1.8 % [facility] Comment: Interpretive Data Percent cell count reference ranges are not reported, since discordance with absolute values may lead to misinterpretation of CBC data. Current Interpretive Data was last revised on 2017. Lymphocyte pct 5.7 % [facility] Comment: Interpretive Data Percent cell count reference ranges are not reported, since discordance with absolute values may lead to misinterpretation of CBC data. Current Interpretive Data was last revised on 2017. Monocyte pct 8.1 % [facility] Comment: Interpretive Data Percent cell count reference ranges are not reported, since discordance with absolute values may lead to misinterpretation of CBC data. Current Interpretive Data was last revised on 2017. Eosinophil pct 2.4 % [facility] Comment: Interpretive Data Percent cell count reference ranges are not reported, since discordance with absolute values may lead to misinterpretation of CBC data. Current Interpretive Data was last revised on 2017. Basophil pct 0.3 % [facility] Comment: Interpretive Data Percent cell count reference ranges are not reported, since discordance with absolute values may lead to misinterpretation of CBC data. Current Interpretive Data was last revised on 2017. Blood 10/27/2024 6:11 AM CDT 10/27/2024 6:24 AM CDT us Jessee Fletcher MD LAB BLOOD ORDERABLES Final Resul t [facility] [address] Department [place] [address] * (ABNORMAL) CBC with auto differential (10/27/2024 6:11 AM CDT) WBC 8.75 3.80 - 9.90 K/cumm Hgb 7.6(L) 13.0 - 17.5 g/dL [facility] Hct 24.4(L) 38.9 - 50.3 % [facility] Plt 202 150 - 400 K/cumm [facility] MPV 10.9 9.1 - 12.3 fL [facility] RBC 2.74(L) 4.30 - 5.80 M/cumm [facility] MCV 89.1 81.3 - 96.4 fL [facility] MCH 27.7 27.1 - 33.3 pg [facility] MCHC 31.1(L) 32.3 - 35.7 g/dL [facility] RDW CV 15.9(H) 11.1 - 14.9 % [facility] RDW SD 51.7(H) 35.7 - 48.1 fL [facility] NRBC abs 0.00 0.00 - 0.01 K/cumm [facility] Blood 10/27/2024 6:11 AM CDT 10/27/2024 6:24 AM CDT us Jessee Fletcher MD LAB BLOOD ORDERABLES Final Resul t [facility] [address] Department [place] [address] * (ABNORMAL) Comprehensive metabolic panel (10/27/2024 6:11 AM CDT) Sodium 145 135 - 145 mmol/L Potassium, pl 3.4 3.3 - 4.9 mmol/L [facility] Chloride 108 97 - 110 mmol/L [facility] CO2 24 22 - 32 mmol/L [facility] Anion gap 13 2 - 15 mmol/L [facility] BUN 28(H) 6 - 25 mg/dL [facility] Creatinine 1.70(H) 0.80 - 1.30 mg/dL [facility] Glucose 84 70 - 199 mg/dL [facility] Comment: Interpretive Data Fasting glucose >/= 126 [...] 2022. Calcium 8.8 8.5 - 10.3 mg/dL [facility] Bilirubin, total 1.9(H) 0.1 - 1.2 mg/dL [facility] Protein, pl 6.0(L) 6.5 - 8.5 g/dL [facility] Albumin 2.7(L) 3.5 - 5.0 g/dL [facility] Alk phos 91 40 - 130 Units/L [facility] ALT 8 7 - 55 Units/L [facility] AST 16 10 - 50 Units/L [facility] Blood 10/27/2024 6:11 AM CDT 10/27/2024 6:24 AM CDT us Jessee Fletcher MD LAB BLOOD ORDERABLES Final Resul t Performing Organization Address [facility] Co de Phone Number [facility] [address] Department of [employer] [place], [place] [phone] * POCT glucose (10/26/2024 11:34 PM CDT) Glucose, POC 104 70 - 199 mg/dL Comment: For Glucose values <35 mg/dl when Hematocrit is >60 mg/dl,the test may not accurately detect significant hypoglycemia,and testing in the Laboratory should be considered if clinically indicated. POC Performer [id number] [facility] Blood 10/26/2024 11:3 4 PM CDT 10/26/2024 11:34 PM CDT us Kian Turcios MD LAB POCT ORDERABLES - DEVICE Fin al Result Performing Organization Address City/[facility]/ZIP Co de Phone Number [facility] [address] Department of [employer] [place], [place] [phone] * POCT glucose (10/26/2024 8:29 PM CDT) Glucose, POC 106 70 - 199 mg/dL Comment: For Glucose values <35 mg/dl when Hematocrit is >60 mg/dl,the test may not accurately detect significant hypoglycemia,and testing in the Laboratory should be considered if clinically indicated. POC Performer [id number] [facility] Blood 10/26/2024 8:29 PM CDT 10/26/2024 8:29 PM CDT us Kian Turcios MD LAB POCT ORDERABLES - DEVICE Fin al Result [facility] [address] Department [place] [address] * IR Change Biliary Drainage Catheter External [...] with copious leakage around the existing 18 Wallisian Haroon internal/external biliary drain status post multiple [...] was obtained. Prior to beginning the procedure, [place] Protocol was performed to confirm the patient's [...] the catheter under fluoroscopic monitoring. A 10 Wallisian sheath was placed and a cholangiogram performed. [...] Then, over the guidewire, a new 18 Wallisian Haroon drain was advanced after placing multiple [...] bile duct was achieved using a 10 Wallisian sheath for aspiration. Then, over the guidewire, a new 18 Wallisian biliary drain was placed to provide stable [...] with copious leakage around the existing 18 Wallisian Haroon internal/external biliary drain status post multiple [...] was obtained. Prior to beginning the procedure, [place] Protocol was performed to confirm the patient's [...] the catheter under fluoroscopic monitoring. A 10 Wallisian sheath was placed and a cholangiogram performed. [...] Then, over the guidewire, a new 18 Wallisian Haroon drain was advanced after placing multiple [...] bile duct was achieved using a 10 Wallisian sheath for aspiration. Then, over the guidewire, a new 18 Wallisian biliary drain was placed to provide stable [...] CDT 10/26/2024 5:41 AM CDT us Jessee Feltcher MD LAB BLOOD ORDERABLES Final Resul t [facility] [address] Department [place] [address] * (ABNORMAL) Differential, auto (10/26/2024 5:16 AM CDT) Neutrophil abs 6.90(H) 1.50 - 6.50 K/cumm Imm gran abs 0.25(H) 0.00 - 0.10 K/cumm [facility] Lymphocyte abs 0.49(L) 0.80 - 3.30 K/cumm [facility] Monocyte abs 0.73 0.20 - 0.80 K/cumm [facility] Eosinophil abs 0.28 0.00 - 0.50 K/cumm [facility] Basophil abs 0.03 0.00 - 0.10 K/cumm [facility] Neutrophil pct 79.6 % [facility] Comment: Interpretive Data Percent cell count reference ranges are not reported, since discordance with absolute values may lead to misinterpretation of CBC data. Current Interpretive Data was last revised on 2017. Imm gran pct 2.9 % [facility] Comment: Interpretive Data Percent cell count reference ranges are not reported, since discordance with absolute values may lead to misinterpretation of CBC data. Current Interpretive Data was last revised on 2017. Lymphocyte pct 5.6 % [facility] Comment: Interpretive Data Percent cell count reference ranges are not reported, since discordance with absolute values may lead to misinterpretation of CBC data. Current Interpretive Data was last revised on 2017. Monocyte pct 8.4 % [facility] Comment: Interpretive Data Percent cell count reference ranges are not reported, since discordance with absolute values may lead to misinterpretation of CBC data. Current Interpretive Data was last revised on 2017. Eosinophil pct 3.2 % [facility] Comment: Interpretive Data Percent cell count reference ranges are not reported, since discordance with absolute values may lead to misinterpretation of CBC data. Current Interpretive Data was last revised on 2017. Basophil pct 0.3 % [facility] Comment: Interpretive Data Percent cell count reference ranges are not reported, since discordance with absolute values may lead to misinterpretation of CBC data. Current Interpretive Data was last revised on 2017. Blood 10/26/2024 5:16 AM CDT 10/26/2024 5:41 AM CDT us Jessee Fletcher MD LAB BLOOD ORDERABLES Final Resul t [facility] [address] Department [place] [address] * (ABNORMAL) CBC with auto differential (10/26/2024 5:16 AM CDT) WBC 8.68 3.80 - 9.90 K/cumm Hgb 7.3(L) 13.0 - 17.5 g/dL [facility] Hct 22.6(L) 38.9 - 50.3 % [facility] Plt 208 150 - 400 K/cumm [facility] MPV 11.0 9.1 - 12.3 fL [facility] RBC 2.62(L) 4.30 - 5.80 M/cumm [facility] MCV 86.3 81.3 - 96.4 fL [facility] MCH 27.9 27.1 - 33.3 pg [facility] MCHC 32.3 32.3 - 35.7 g/dL [facility] RDW CV 15.6(H) 11.1 - 14.9 % [facility] RDW SD 49.1(H) 35.7 - 48.1 fL [facility] NRBC abs 0.00 0.00 - 0.01 K/cumm [facility] Blood 10/26/2024 5:16 AM CDT 10/26/2024 5:41 AM CDT us Jessee Fletcher MD LAB BLOOD ORDERABLES Final Resul t [facility] [address] Department [place] [address] * (ABNORMAL) Comprehensive metabolic panel (10/26/2024 5:16 AM CDT) Sodium 143 135 - 145 mmol/L Potassium, pl 3.1(L) 3.3 - 4.9 mmol/L [facility] Chloride 108 97 - 110 mmol/L [facility] CO2 26 22 - 32 mmol/L [facility] Anion gap 9 2 - 15 mmol/L [facility] BUN 30(H) 6 - 25 mg/dL [facility] Creatinine 1.73(H) 0.80 - 1.30 mg/dL [facility] Glucose 116 70 - 199 mg/dL [facility] Comment: Interpretive Data Fasting glucose >/= 126 [...] 2022. Calcium 8.5 8.5 - 10.3 mg/dL [facility] Bilirubin, total 2.1(H) 0.1 - 1.2 mg/dL [facility] Protein, pl 5.6(L) 6.5 - 8.5 g/dL [facility] Albumin 2.4(L) 3.5 - 5.0 g/dL [facility] Alk phos 92 40 - 130 Units/L [facility] ALT 8 7 - 55 Units/L [facility] AST 12 10 - 50 Units/L [facility] Blood 10/26/2024 5:16 AM CDT 10/26/2024 5:41 AM CDT Jessee Fletcher MD LAB BLOOD ORDERABLES Final Resul t Performing Organization Address City/[facility]/ZIP Co de Phone Number [facility] [address] [employer] [place], [place] [phone] * (ABNORMAL) eGFR (10/25/2024 12:26 AM CDT) [...] MD LAB BLOOD ORDERABLES Final Resul t [facility] [address] Department [place] [address] * (ABNORMAL) Differential, auto (10/25/2024 12:26 AM CDT) Neutrophil abs 7.19(H) 1.50 - 6.50 K/cumm Imm gran abs 0.21(H) 0.00 - 0.10 K/cumm [facility] Lymphocyte abs 0.40(L) 0.80 - 3.30 K/cumm [facility] Monocyte abs 1.08(H) 0.20 - 0.80 K/cumm [facility] Eosinophil abs 0.18 0.00 - 0.50 K/cumm [facility] Basophil abs 0.02 0.00 - 0.10 K/cumm [facility] Neutrophil pct 79.2 % [facility] Comment: Interpretive Data Percent cell count reference ranges are not reported, since discordance with absolute values may lead to misinterpretation of CBC data. Current Interpretive Data was last revised on 2017. Imm gran pct 2.3 % [facility] Comment: Interpretive Data Percent cell count reference ranges are not reported, since discordance with absolute values may lead to misinterpretation of CBC data. Current Interpretive Data was last revised on 2017. Lymphocyte pct 4.4 % [facility] Comment: Interpretive Data Percent cell count reference ranges are not reported, since discordance with absolute values may lead to misinterpretation of CBC data. Current Interpretive Data was last revised on 2017. Monocyte pct 11.9 % [facility] Comment: Interpretive Data Percent cell count reference ranges are not reported, since discordance with absolute values may lead to misinterpretation of CBC data. Current Interpretive Data was last revised on 2017. Eosinophil pct 2.0 % [facility] Comment: Interpretive Data Percent cell count reference ranges are not reported, since discordance with absolute values may lead to misinterpretation of CBC data. Current Interpretive Data was last revised on 2017. Basophil pct 0.2 % [facility] Comment: Interpretive Data Percent cell count reference ranges are not reported, since discordance with absolute values may lead to misinterpretation of CBC data. Current Interpretive Data was last revised on 2017. Blood 10/25/2024 12:2 6 AM CDT 10/25/2024 12:40 AM CDT Jessee Fletcher MD LAB BLOOD ORDERABLES Final Resul t Performing Organization Address [facility] Co de Phone Number [facility] [address] [employer] [place], [place] [phone] * (ABNORMAL) CBC with auto differential (10/25/2024 12:26 AM CDT) WBC 9.08 3.80 - 9.90 K/cumm Hgb 7.2(L) 13.0 - 17.5 g/dL [facility] Hct 23.0(L) 38.9 - 50.3 % [facility] Plt 193 150 - 400 K/cumm [facility] MPV 9.7 9.1 - 12.3 fL [facility] RBC 2.60(L) 4.30 - 5.80 M/cumm [facility] MCV 88.5 81.3 - 96.4 fL [facility] MCH 27.7 27.1 - 33.3 pg [facility] MCHC 31.3(L) 32.3 - 35.7 g/dL [facility] RDW CV 15.6(H) 11.1 - 14.9 % [facility] RDW SD 50.3(H) 35.7 - 48.1 fL [facility] NRBC abs 0.00 0.00 - 0.01 K/cumm [facility] Blood 10/25/2024 12:2 6 AM CDT 10/25/2024 12:40 AM CDT Jessee Fletcher MD LAB BLOOD ORDERABLES Final Resul t Performing Organization Address [facility]/ZIP Co de Phone Number [facility] [address] [employer] [place], [place] [phone] * (ABNORMAL) Comprehensive metabolic panel (10/25/2024 12:26 AM CDT) Sodium 145 135 - 145 mmol/L Potassium, pl 3.7 3.3 - 4.9 mmol/L [facility] Chloride 115(H) 97 - 110 mmol/L [facility] CO2 17(L) 22 - 32 mmol/L [facility] Anion gap 13 2 - 15 mmol/L [facility] BUN 41(H) 6 - 25 mg/dL [facility] Creatinine 1.98(H) 0.80 - 1.30 mg/dL [facility] Glucose 110 70 - 199 mg/dL [facility] Comment: Interpretive Data Fasting glucose >/= 126 [...] 2022. Calcium 8.7 8.5 - 10.3 mg/dL [facility] Bilirubin, total 2.5(H) 0.1 - 1.2 mg/dL [facility] Protein, pl 5.7(L) 6.5 - 8.5 g/dL [facility] Albumin 2.5(L) 3.5 - 5.0 g/dL [facility] Alk phos 98 40 - 130 Units/L [facility] ALT 11 7 - 55 Units/L [facility] AST 8(L) 10 - 50 Units/L [facility] Blood 10/25/2024 12:2 6 AM CDT 10/25/2024 12:40 AM CDT us Jessee Fletcher MD LAB BLOOD ORDERABLES Final Resul t [facility] [address] Department [place] [address] * Iron profile - Add on lab test (10/24/2024 2:17 PM CDT) Acceptable Yes Blood 10/24/2024 2:17 PM CDT 10/24/2024 2:17 PM CDT Narrative [facility] - 10/24/2024 2:18 PM CDT Name of Test->Iron profile us Tori Pierre MD LAB BLOOD ORDERABLES F inal Result Performing Organization Address City/[facility]/ZIP Co de Phone Number [facility] [address] Department [employer] [place], [place] [phone] * (ABNORMAL) eGFR (10/24/2024 4:21 AM CDT) [...] ORDERABLES Final Resul t Performing Organization Address [facility]/ZIP Co de Phone Number [facility] [address] Department [employer] [place], [place] [phone] * (ABNORMAL) Differential, auto (10/24/2024 4:21 AM CDT) Neutrophil abs 7.04(H) 1.50 - 6.50 K/cumm Imm gran abs 0.26(H) 0.00 - 0.10 K/cumm [facility] Lymphocyte abs 0.47(L) 0.80 - 3.30 K/cumm [facility] Monocyte abs 1.07(H) 0.20 - 0.80 K/cumm [facility] Eosinophil abs 0.09 0.00 - 0.50 K/cumm [facility] Basophil abs 0.02 0.00 - 0.10 K/cumm [facility] Neutrophil pct 78.6 % [facility] Comment: Interpretive Data Percent cell count reference ranges are not reported, since discordance with absolute values may lead to misinterpretation of CBC data. Current Interpretive Data was last revised on 2017. Imm gran pct 2.9 % [facility] Comment: Interpretive Data Percent cell count reference ranges are not reported, since discordance with absolute values may lead to misinterpretation of CBC data. Current Interpretive Data was last revised on 2017. Lymphocyte pct 5.3 % [facility] Comment: Interpretive Data Percent cell count reference ranges are not reported, since discordance with absolute values may lead to misinterpretation of CBC data. Current Interpretive Data was last revised on 2017. Monocyte pct 12.0 % [facility] Comment: Interpretive Data Percent cell count reference ranges are not reported, since discordance with absolute values may lead to misinterpretation of CBC data. Current Interpretive Data was last revised on 2017. Eosinophil pct 1.0 % [facility] Comment: Interpretive Data Percent cell count reference ranges are not reported, since discordance with absolute values may lead to misinterpretation of CBC data. Current Interpretive Data was last revised on 2017. Basophil pct 0.2 % [facility] Comment: Interpretive Data Percent cell count reference ranges are not reported, since discordance with absolute values may lead to misinterpretation of CBC data. Current Interpretive Data was last revised on 2017. Blood 10/24/2024 4:21 AM CDT 10/24/2024 4:31 AM CDT us Jessee Fletcher MD LAB BLOOD ORDERABLES Final Resul t Performing Organization Address City/[facility]/ZIP Co de Phone Number [facility] [address] [facility] [place] [employer] [address] * (ABNORMAL) Iron profile w/ IBC (10/24/2024 4:21 AM CDT) Pathologist [facility] Iron 22(L) 50 - 150 mcg/dL TIBC 124(L) 250 - 400 mcg/dL [facility] Transferrin saturation 18(L) 20 - 50 % [facility] Blood 10/24/2024 4:21 AM CDT 10/24/2024 4:31 AM CDT us Kian Turcios MD LAB BLOOD ORDERABLES Final Resul t Performing Organization Address [facility] Co de Phone Number [facility] [address] Department [place] [address] * (ABNORMAL) CBC with auto differential (10/24/2024 4:21 AM CDT) Pathologist [facility] WBC 8.95 3.80 - 9.90 K/cumm Hgb 7.0(L) 13.0 - 17.5 g/dL [facility] Hct 22.7(L) 38.9 - 50.3 % [facility] Plt 200 150 - 400 K/cumm [facility] MPV 10.6 9.1 - 12.3 fL [facility] RBC 2.49(L) 4.30 - 5.80 M/cumm [facility] MCV 91.2 81.3 - 96.4 fL [facility] MCH 28.1 27.1 - 33.3 pg [facility] MCHC 30.8(L) 32.3 - 35.7 g/dL [facility] RDW CV 15.6(H) 11.1 - 14.9 % [facility] RDW SD 51.8(H) 35.7 - 48.1 fL [facility] NRBC abs 0.00 0.00 - 0.01 K/cumm [facility] Blood 10/24/2024 4:21 AM CDT 10/24/2024 4:31 AM CDT us Jessee Fletcher MD LAB BLOOD ORDERABLES Final Resul t [facility] [address] Department [place] [address] * (ABNORMAL) Comprehensive metabolic panel (10/24/2024 4:21 AM CDT) Sodium 144 135 - 145 mmol/L Potassium, pl 4.0 3.3 - 4.9 mmol/L [facility] Chloride 115(H) 97 - 110 mmol/L [facility] CO2 15(L) 22 - 32 mmol/L [facility] Anion gap 14 2 - 15 mmol/L [facility] BUN 51(H) 6 - 25 mg/dL [facility] Creatinine 2.24(H) 0.80 - 1.30 mg/dL [facility] Glucose 95 70 - 199 mg/dL [facility] Comment: Interpretive Data Fasting glucose >/= 126 [...] 2022. Calcium 8.7 8.5 - 10.3 mg/dL [facility] Bilirubin, total 3.6(H) 0.1 - 1.2 mg/dL [facility] Protein, pl 5.5(L) 6.5 - 8.5 g/dL [facility] Albumin 2.4(L) 3.5 - 5.0 g/dL [facility] Alk phos 102 40 - 130 Units/L [facility] ALT 13 7 - 55 Units/L [facility] AST 12 10 - 50 Units/L [facility] Blood 10/24/2024 4:21 AM CDT 10/24/2024 4:31 AM CDT Result [facility] Jessee Fletcher MD LAB BLOOD ORDERABLES Final Resul t Performing Organization Address [facility] Co de Phone Number [facility] [address] Department of [employer] [place], [place] [phone] * (ABNORMAL) Hemoglobin and hematocrit (10/23/2024 9:18 PM CDT) Pathologist [facility] Hgb 7.4(L) 13.0 - 17.5 g/dL Hct 23.6(L) 38.9 - 50.3 % [facility] Blood 10/23/2024 9:18 PM CDT 10/23/2024 9:26 PM CDT Jessee Fletcher MD LAB BLOOD ORDERABLES Final Resul t Performing Organization Address [facility] Co de Phone Number [facility] [address] Department of [employer] [place], [place] [phone] * Aerobic culture and gram stain Sputum (10/23/2024 6:30 PM CDT) Pathologist [facility] Direct Specimen Exam Stain: Poor quality sputum Report Final Report: Culture not performed. Please reorder and recollect if clinically indicated. [facility] Sputum 10/23/2024 6:30 PM CDT 10/23/2024 7:31 PM CDT Result [facility] Jessee Fletcher MD LAB MICROBIOLOGY - GENERAL ORDER OBED Final Result Performing Organization Address [facility] Co de Phone Number [facility] [address] Department [employer] [place], [place] [phone] * TRANSTHORACIC ECHO (TTE) COMPLETE W DOPPLER/CF W CONTRAST (10/23/2024 5:07 PM CDT) Pathologist [facility] EF Mod BP 60 % CONS SCIMAGE Anatomical Region Laterality Modality Ultrasound 10/23/2024 4:11 PM CDT Narrative 10/23/2024 5:33 PM CDT [facility] [address] [place] [address] ECHOCARDIOGRAM Patient Name: LEE COTTO : 1950 (73y 10m) Gender: M Study Date: 10/23/2024 04:11:24 PM Ht(Inch): 67 Wt(Lb): 154.1 BSA: 1.82 Automation Machine Operator: MEJIA Location: [id number] Order Provider: JESSEE FLETCHER BMI: 24.13 BP: [...] effusion. Electronically Signed By: Deangelo Funez MD, [facility] 10/23/2024 5:32:36 PM CDT Procedure Note Deangelo Funez MD - 10/23/2024 [facility] [address] [place] [address] ECHOCARDIOGRAM Patient Name: LEE COTTO : 1950 (73y 10m) Gender: M Study Date: 10/23/2024 04:11:24 PM Ht(Inch): 67 Wt(Lb): 154.1 BSA: 1.82 Automation Machine Operator: MEJIA Location: [id number] Order Provider: JESSEE FLETCHER BMI: 24.13 BP: [...] Hemoglobin and hematocrit (10/23/2024 11:32 AM CDT) [facility] Hgb 7.3(L) 13.0 - 17.5 g/dL Hct 23.3(L) 38.9 - 50.3 % [facility] Blood 10/23/2024 11:3 2 AM CDT 10/23/2024 11:59 AM CDT Jessee Fletcher MD LAB BLOOD ORDERABLES Final Resul t Performing Organization Address [facility] Co de Phone Number [facility] [address] [place] [place] [address] * Prepare RBC: 1 Units (10/23/2024 8:27 AM CDT) [facility] Product code [id number] Unit Number [id number] 2-2 [facility] Product Blood Type APOS [facility] Dispense Status RETURNED [facility] Blood 10/23/2024 8:27 AM CDT Narrative [facility] - 10/26/2024 7:16 AM CDT Are special requirements needed? (All products are leukoreduced and CMV- safe)- >No Date required:-20241023 LRRBC # of Memgw-1-Shedn Reasons:-Hgb <7 g/dL} Jessee Fletcher MD BLOOD BANK PRODUCT ORDERABLES Fi nal Result Performing Organization Address City/[facility] Co de Phone Number [facility] [address] [place] [address] * Transfuse RBC (10/23/2024 8:22 AM CDT) Blood Juan Jose Fitzpatrick DO BLOOD TRANSFUSION ORDERABLE S Final Result Performing Organization Address City/[facility] Co de Phone Number [facility] [address] Department [place] [address] * Prepare RBC: 1 Units (10/23/2024 3:10 AM CDT) Product code [id number] Unit Number [id number]- R [facility] Product Blood Type APOS [facility] Dispense Status PRESUMED TRANSFUSED [facility] Blood 10/23/2024 3:10 AM CDT Narrative [facility] - 10/23/2024 10:20 PM CDT Are special requirements needed? (All products are leukoreduced and CMV- safe)- >No Date required:-20241023 LRRBC # of Guonn-2-Xnxao Reasons:-Hgb <7 g/dL} Juan Jose Fitzpatrick DO BLOOD BANK PRODUCT ORDERABL ES Final Result [facility] [address] Department [place] [address] * (ABNORMAL) eGFR (10/23/2024 2:00 AM CDT) Pathologist [facility] eGFR 25(L) >=60 mL/min/1. 73 m2 Comment: [...] MD LAB BLOOD ORDERABLES Final Resul t [facility] [address] [place] [address] * (ABNORMAL) Differential, auto (10/23/2024 2:00 AM CDT) Neutrophil abs 8.62(H) 1.50 - 6.50 K/cumm Imm gran abs 0.16(H) 0.00 - 0.10 K/cumm [facility] Lymphocyte abs 0.27(L) 0.80 - 3.30 K/cumm [facility] Monocyte abs 1.18(H) 0.20 - 0.80 K/cumm [facility] Eosinophil abs 0.02 0.00 - 0.50 K/cumm [facility] Basophil abs 0.01 0.00 - 0.10 K/cumm [facility] Neutrophil pct 84.0 % [facility] Comment: Interpretive Data Percent cell count reference ranges are not reported, since discordance with absolute values may lead to misinterpretation of CBC data. Current Interpretive Data was last revised on 2017. Imm gran pct 1.6 % [facility] Comment: Interpretive Data Percent cell count reference ranges are not reported, since discordance with absolute values may lead to misinterpretation of CBC data. Current Interpretive Data was last revised on 2017. Lymphocyte pct 2.6 % [facility] Comment: Interpretive Data Percent cell count reference ranges are not reported, since discordance with absolute values may lead to misinterpretation of CBC data. Current Interpretive Data was last revised on 2017. Monocyte pct 11.5 % [facility] Comment: Interpretive Data Percent cell count reference ranges are not reported, since discordance with absolute values may lead to misinterpretation of CBC data. Current Interpretive Data was last revised on 2017. Eosinophil pct 0.2 % [facility] Comment: Interpretive Data Percent cell count reference ranges are not reported, since discordance with absolute values may lead to misinterpretation of CBC data. Current Interpretive Data was last revised on 2017. Basophil pct 0.1 % [facility] Comment: Interpretive Data Percent cell count reference ranges are not reported, since discordance with absolute values may lead to misinterpretation of CBC data. Current Interpretive Data was last revised on 2017. Blood 10/23/2024 2:00 AM CDT 10/23/2024 2:25 AM CDT Jessee Fletcher MD LAB BLOOD ORDERABLES Final Resul t [facility] [address] Department [place] [address] * (ABNORMAL) CBC with auto differential (10/23/2024 2:00 AM CDT) WBC 10.26(H) 3.80 - 9.90 K/cumm Hgb 6.8(L) 13.0 - 17.5 g/dL [facility] Hct 22.0(L) 38.9 - 50.3 % [facility] Plt 194 150 - 400 K/cumm [facility] MPV 10.8 9.1 - 12.3 fL [facility] RBC 2.40(L) 4.30 - 5.80 M/cumm [facility] MCV 91.7 81.3 - 96.4 fL [facility] MCH 28.3 27.1 - 33.3 pg [facility] MCHC 30.9(L) 32.3 - 35.7 g/dL [facility] RDW CV 15.0(H) 11.1 - 14.9 % [facility] RDW SD 51.0(H) 35.7 - 48.1 fL [facility] NRBC abs 0.00 0.00 - 0.01 K/cumm [facility] Blood 10/23/2024 2:00 AM CDT 10/23/2024 2:25 AM CDT Jessee Fletcher MD LAB BLOOD ORDERABLES Final Resul t Performing Organization Address City/[facility]/ZIP Co de Phone Number [facility] [address] Department [place] [address] * Magnesium (10/23/2024 2:00 AM CDT) [facility] Magnesium 1.7 1.4 - 2.5 mg/dL Blood 10/23/2024 2:00 AM CDT 10/23/2024 2:25 AM CDT Dayo Larsen DO LAB BLOOD ORDERABLES F inal Result Performing Organization Address [facility] Co de Phone Number [facility] [address] Department [place] [address] * (ABNORMAL) Comprehensive metabolic panel (10/23/2024 2:00 AM CDT) [facility] Sodium 143 135 - 145 mmol/L Potassium, pl 4.5 3.3 - 4.9 mmol/L [facility] Chloride 112(H) 97 - 110 mmol/L [facility] CO2 16(L) 22 - 32 mmol/L [facility] Anion gap 15 2 - 15 mmol/L [facility] BUN 53(H) 6 - 25 mg/dL [facility] Creatinine 2.60(H) 0.80 - 1.30 mg/dL [facility] Glucose 80 70 - 199 mg/dL [facility] Comment: Interpretive Data Fasting glucose >/= 126 [...] 2022. Calcium 8.8 8.5 - 10.3 mg/dL [facility] Bilirubin, total 3.8(H) 0.1 - 1.2 mg/dL [facility] Protein, pl 5.9(L) 6.5 - 8.5 g/dL [facility] Albumin 2.6(L) 3.5 - 5.0 g/dL [facility] Alk phos 121 40 - 130 Units/L [facility] ALT 21 7 - 55 Units/L [facility] AST 21 10 - 50 Units/L [facility] Blood 10/23/2024 2:00 AM CDT 10/23/2024 2:25 AM CDT us Jessee Fletcher MD LAB BLOOD ORDERABLES Final Resul t [facility] [address] Department [place] [address] * (ABNORMAL) Hepatitis C (HCV) RNA PCR, quantitative (04/14/2018 9:10 AM CDT) HCV RNA IU/mL 54,107 IU/mL HCV RNA log IU/mL 4.73 log IU/mL 018 5:33 PM [facility] HISTORICAL RESULTS HCV quant by NAAT [...] and Cellular Tissue-Based Products (HCT/P). Performed by [facility], [address] [place] [id number] [email or web address], Aaron Esparza MD, Lab. Director 04/14/2018 9:10 AM CDT 04/14/2018 9:28 AM CDT Amari Frazier MD LAB MICROBIOLOGY - GENERAL NIKHIL MEYERS Final Result [facility] HISTORICAL RESULTS from Last 3 Months or Most Recently Relevant to Health Maintenance Insurance IDPA [facility] MEDICARE HMO [facility] MEDICARE HMO IDPA [id number] [place] [address] MEDICARE O [employer] 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 ADVANCE DIRECTIVE 11/17/2024 1:55 AM POWER OF AVIONICS MANAGER-MEDICAL * Full Code (Latest Code Status on File) Date Activated Date Inactivated Comments 01/11/2025 12:22 PM 01/12/2025 4:39 AM * Full Code Date Activated Date Inactivated Comments 12/21/2024 1:29 [...] Comments 11/11/2024 10:30 PM 11/13/2024 10:31 AM Care Teams Manager Crisis Relationship Specialty Start Date End Date Jose Rivera MD [address] [place] [address] PCP - General 08/29/17 [place] [address] [place] [address] Consulting Physician Gastroenterology 02/08/23 Shayan Brown MD [address] [place] [phone] Referring Physician Hematology 01/13/24 No, Physician 11/15/24
--- OUTSIDE RECORDS SUMMARY | 2025-01-23 12:35 | XMS_ITS | Encounter Summary ---
Author Organization [facility] Healthcare Address [address] [place] [address] Care Team Providers Care Drip Pumper Name Role Phone Jose Rivera MD Primary Care Provider Justin Miller MD Unavailable Shayan Brown MD Unavailable [phone] No, Physician Unavailable Encounter Details Date Type Department Care Team (Late st Contact Info) Description 04/19/2024 Documentation [facility] - Interventional Radiology [address] [place] [phone] Alda Harris RN Social History Tobacco Use [...] often do you attend chur ch or cheondoism services? 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 08/20/2024 08/20/2024 11/18/2024 7:26 PM C DT documented as of this encounter Care Teams Drip Pumper Relationship Specialty Start Date End Date Jose Rivera MD [address] [place] [address] PCP - General 08/29/17 [place] [address] [place] [address] Consulting Physician Gastroenterology 02/08/23 Shayan Brown MD [address] [phone] Referring Physician Hematology 01/13/24 No, Physician 11/15/24 documented as of this encounter
--- OUTSIDE RECORDS SUMMARY | 2025-01-23 12:35 | XMS_ITS | Encounter Summary ---
Author Organization [facility] Healthcare Address [address] [place] [address] Care Team Providers Care Impregnator Helper Name Role Phone Jose Rivera MD Primary Care Provider Justin Miller MD Unavailable Shayan Brown MD Unavailable [phone] No, Physician Unavailable Encounter Details Date Type Department Care Team (Late st Contact Info) Description 03/27/2019 Telephone [facility] [address] [facility] [address] [place] [address] Sumanth Reyes MD [address] [facility] [phone] [place], [place] [id number] Social History Tobacco Use Types Packs/Day Years Used Date Smoking Tobacco: Former Smokeless Tobacco: Never Alcohol Use Standard Drinks/Week Comments Yes 0 (1 standard drink = 0.6 oz pur e alcohol) socially Sex and Gender Information Value Date Recorded Sex Assigned at Not on file 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 08/20/2024 08/20/2024 11/18/2024 7:26 PM C DT documented as of this encounter Care Teams Impregnator Helper Relationship Specialty Start Date End Date Jose Rivera MD [address] [place] [address] PCP - General 08/29/17 [place] [address] [place] [address] Consulting Physician Gastroenterology 02/08/23 Shayan Brown MD [address] [place] [phone] Referring Physician Hematology 01/13/24 No, Physician 11/15/24 documented as of this encounter
--- OUTSIDE RECORDS SUMMARY | 2025-01-23 12:35 | XMS_ITS | Encounter Summary ---
Author Organization [facility] Healthcare Address [address] [place] [address] Care Team Providers Care University Librarian Name Role Phone oJse Rivera MD Primary Care Provider Justin Miller MD Unavailable Shayan Brown MD Unavailable [phone] No, Physician Unavailable Encounter Details Date Type Department Care Team (Late st Contact Info) Description 09/27/2024 Telephone [facility] - Interventional Radiology [address] [place] [phone] Juan Sierra, RN Social History [...] materials from doctor or pharmacy Never 04/12/2023 [facility] Utilities Answer Date Recorded In the past 12 months has th e electric, gas, oil, or water company threatened to shut off services in your home? No 08/21/2024 Social Connection and Isolation Panel Answer Date Recorded In a typical week, how many times do you talk on the phone with family, friends, or neighbors? More than three times a week 08/21/2024 How often do you get togethe r with friends or relatives? Never 08/21/2024 How often do you attend chur ch or catholic services? Never 08/21/2024 Do you belong to any clubs o r organizations such as mormonism groups, unions, fraternal or athletic groups, or [...] living in a jail (including now)? No 08/21/2024 Personal Safety Answer Date Recorded Have you ever been in or are you currently in a harmful physical or emotional relationship or is someone making you feel afraid or unsafe? 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
--- NOTE | 2025-01-23 13:11 | REHSTMBS ---
Assessment and note entered by Destiny Masters, CHIEF MARKETING OFFICER Modified Barium Swallow Evaluation Feeding Type Recommended Oral Food Consistency Regular, Level 7 Liquid Consistency Thin (0) ST Clinical Summary The patient is a 74 year old male referred for a MBS study following an outpatient speech therapy swallow evaluation. The outpatient swallow evaluation did not show outward clinical signs of aspiration. However, he has had 3-4 episode of recurrent pneumonia over the past 3-6 months. The patient was positioned in the lateral view and presented the following consistencies: 5cc/tsp thin liquid barium, straw drinks thin liquid barium, pudding mixed with barium paste and cracker coated with barium paste. Oral stage: Timely oral preparation and transit for all consistencies presented. Pharyngeal Stage: When presented 5cc/tsp thin liquid barium, pudding mixed with barium paste, and cracker coated with barium paste swallow initiation was timely without viewed aspiration or penetration and no residual was viewed to remain in the vallecula or pyriform sinus. When presented straw drinks of thin liquid the patient was viewed to have flash/trace laryngeal penetration during the swallow that was ejected and cleared with the swallow completion. this trace/flash penetration was within normal function. Recommend 1. Regular diet 2. Thin liquids 3. Upright with meals 4. May consider no straw use due to increased bolus size.
== END 2025-01-23 12:32 | disposition home or self-care (01) ==
PROVIDERS: PCP Family Medicine; Visit Provider Internal Medicine Critical Care Medicine
DX: R13.12 Dysphagia, oropharyngeal phase (principal); Z87.01 Personal history of pneumonia (recurrent)
CPT/HCPCS: 74230; 92611

== ENCOUNTER 2025-02-05 10:03 | Outpatient (CLI) | payer MEDICARE, MEDICAID, SELFPAY ==
--- OUTSIDE RECORDS SUMMARY | 2025-02-05 10:35 | XMS_ITS | Clinical Summary ---
Author Organization [address] Address [facility] [place] [address] Care Team Providers Care Animal Feeder Name Role Phone Jose Rivera MD Primary Care Provider [phone] Justin Miller MD Unavailable Shayan Brown MD Unavailable [phone], Physician Unavailable Allergies Active Allergy [...] allergies 12/25/19 Active levocetirizine (XYZAL) 5 mg tabletIndications :Allergic Conjunctivitis Take 1 tablet (5 mg total) by mouth nightly 11/19/19 21 Active montelukast (SINGULAIR) 10 mg tabletIndications :Exercise-Induced [...] 04/08/20 21 Active doxazosin (CARDURA) 8 mg tabletIndications :hypertension [...] 08/10/19 25 Active roflumilast (DALIRESP) 500 mcg tabletIndications :Prevention [...] a day 1800 mL 01/12/20 25 Active colchicine (COLCRYS) 0.6 mg tablet Take 1 tablet (0.6 mg total) by mouth daily Start on 02/03/25 9 tablet 02/03/20 25 026 Active sodium chloride 0.9% flush syringe Administer 20 mL into catheter daily 1200 mL 11/23/19 25 025 azithromycin (ZITHROMAX) 250 mg tablet Take 2 tablets the first day, then 1 tablet daily for 4 days 6 tablet 12/17/19 25 025 Discontinu ed(Therapy completed) Active Problems Problem Noted Date Diagnosed Date [...] Encounters Date Type Department Care Team Description 02/02/2025 8:34 AM CDT - 02/02/2025 12:59 PM CDT Emergency [facility] Emergency Department [facility] [place] [address] Jimmy Levy DO Pericarditis (Primary Dx) Discharge Disposition: Discharge to home or self care 01/30/2025 12:42 PM CDT - 01/30/2025 11:59 PM CDT Hospital Encounter [facility] - Interventional Radiology [facility] [place] [address] Biliary obstruction (HCC) Discharge Disposition: Discharge to home or self care 01/30/2025 Orders Only [facility] - Interventional Radiology [address] [place] [phone] Juan Sierra RN 01/29/2025 Orders Only [facility] - Interventional Radiology [address] [place] [phone] Juan Sierra RN 01/25/2025 1:51 PM CDT - 01/25/2025 11:59 PM CDT Hospital Encounter [facility] - Interventional Radiology [address] [place] [phone] Biliary obstruction (HCC) Discharge Disposition: Discharge to home or self care 01/24/2025 Telephone [facility] - Interventional Radiology [address] [place] [phone] Alda Harris RN 01/17/2025 12:26 PM CDT - 01/17/2025 11:59 PM CDT Hospital Encounter [facility] - Interventional Radiology [address] [place] [phone] Biliary obstruction (HCC) Discharge Disposition: Discharge to home or self care 01/17/2025 Orders Only [facility] - Interventional Radiology [address] [place] [phone] Juan Sierra, RN 01/16/2025 Telephone [facility] - Interventional Radiology [address] [place] [phone] Juan Sierra, RN 01/11/2025 12:13 PM CDT - 01/11/2025 11:59 PM CDT Hospital Encounter [facility] - Interventional Radiology [address] [place] [phone] Biliary obstruction (HCC) Discharge Disposition: Discharge to home or self care 01/10/2025 Telephone [facility] - Interventional Radiology [address] [place] [phone] Juan Sierra, RN 01/10/2025 Orders Only [facility] Interventional Radiology [address] [place] [phone] Juan Sierra, RN 01/02/2025 11:19 AM CDT - 01/02/2025 11:59 PM CDT Hospital Encounter [facility] - Interventional Radiology [address] [place] [phone] Biliary obstruction (HCC) Discharge Disposition: Discharge to home or self care 01/02/2025 Orders Only [facility] - Interventional Radiology [address] [place] [phone] Juan Sierra, RN 01/01/2025 Telephone [facility] Interventional Radiology [address] [place] [phone] Juan Sierra, RN 01/01/2025 Orders Only [facility] Interventional Radiology [address] [place] [phone] Juan Sierra, RN 12/26/2024 12:39 PM CDT - 12/26/2024 11:59 PM CDT Hospital Encounter [facility] - Interventional Radiology [address] [place] [phone] Biliary obstruction (HCC) Discharge Disposition: Discharge to home or self care 12/21/2024 1:18 PM CDT - 12/21/2024 11:59 PM CDT Hospital Encounter [facility] - Interventional Radiology [address] [place] [phone] Biliary obstruction (HCC) Discharge Disposition: Discharge to home or self care 12/20/2024 12:30 PM CDT - 12/20/2024 11:59 PM CDT Hospital Encounter [facility] - Interventional Radiology [address] [place] [phone] Biliary obstruction (HCC) Discharge Disposition: Discharge to home or self care 12/19/2024 Telephone [facility] - Interventional Radiology [address] [place] [phone] Park Johns RN 12/15/2024 8:13 AM CDT - 12/15/2024 1:08 PM CDT Emergency [address] [address] Cuauhtemoc Isaac MD COPD exacerbation (HCC) (Primary Dx) Discharge Disposition: Discharge to home or self care 11/27/2024 Telephone [facility] Interventional Radiology [address] [place] [phone] Juan Sierra RN 11/27/2024 Orders Only [facility] Interventional Radiology [address] [place] [phone] Juan Sierra RN 11/22/2024 9:02 AM CDT - 11/22/2024 11:59 PM CDT Hospital Encounter [facility] - Interventional Radiology [address] [place] [phone] Biliary obstruction (HCC) Discharge Disposition: Discharge to home or self care 11/22/2024 Orders Only [facility] - Interventional Radiology [address] [place] [phone] Juan Sierra RN 11/21/2024 Telephone [facility] Interventional Radiology [address] [place] [phone] Juan Sierra RN 11/12/2024 3:00 PM CDT - 11/12/2024 3:45 PM CDT Surgery [facility] [address] [place] [phone] Cristiano Gallardo MD SMALL BOWEL WITH REMOVAL FOREIGN BODY 11/12/2024 2:34 PM CDT Anesthesia Event [facility] [address] [place] [phone] Gillian Osei MD Lorusso, Chynna Janae, CRNA 11/12/2024 Orders Only [facility] - Interventional Radiology [address] [place] [phone] Ruthie Angulo RN 11/12/2024 Orders Only [facility] Radiology [address] [place] [phone] Juan Sierra RN 11/12/2024 Orders Only [facility]iology [address] [place] [phone] Pearl Goldstein RN 11/12/2024 Orders Only [facility]iology [address] [place] [phone] Alejandra Coronado, ROBEL 11/11/2024 2:59 PM CDT - 11/15/2024 7:26 PM CDT Hospital Encounter [address] [phone] Thor Herr MD Yew, MD [...] or self care 11/09/2024 Telephone Radiology [address] [place] [address] Columba Garcia PA from Last 3 Months Immunizations Immunization Administration Dates Next Due Sars-CoV-2, Unspecified 08/20/2020 ZOSTER Recombinant 02/27/2019 Surgical History Surgery Date Site/Laterality Comments LUMBAR FUSION Arthrodesis Lumbar - (Added by SEBASTIAN Conv) ANKLE SURGERY 06/13/2015 - 06/12/2016 Left Ankle Surgery - (Added by SEBASTIAN Conv) [place] NJX AA&/STRD TFRML EPI LUMBAR/SACRAL 1 LEVEL [...] CATHETER EXTERNAL OR INTERNAL EXTERNAL 01/17/2025 N/A CHANGE BILIARY DRAINAGE CATHETER EXTERNAL OR INTERNAL EXTERNAL 01/25/2025 N/A CHANGE BILIARY DRAINAGE CATHETER EXTERNAL OR INTERNAL EXTERNAL 01/30/2025 N/A Medical History Medical History Date Comments Personal history of other di seases of the circulatory system History of hypertension - (A dded by TW [place]) Emphysema of lung Chronic pain disorder Pinched [...] materials from doctor or pharmacy Never 04/12/2023 [facility] Utilities Answer Date Recorded In the past [...] often do you attend chur ch or baptist services? Never 11/13/2024 Do you belong to any clubs o r organizations such as christian groups, unions, fraternal or athletic groups, or [...] any time in the past 12 m [facility], were you homeless or living in a care home (including now)? No 11/13/2024 Personal Safety Answer Date Recorded Have you ever been in or are you currently in a harmful physical or emotional relationship or is someone making you feel afraid or unsafe? Denies 02/02/2025 Sex and Gender Information Value Date Recorded Sex Assigned at Not on file Legal Sex Male 1:47 AM [employer] TE[employer] Gender Identity Not on file Sexual Orientation Not on file Obstetrics History Last Filed Vital Signs Vital Sign Reading Time Taken Comments Blood Pressure 113/77 02/02/2025 12:34 PM CDT Pulse 87 02/02/2025 12:34 PM CDT Temperature 36.6 C (97.8 F) 02/02/2025 8:27 AM CDT Respiratory Rate 18 02/02/2025 12:34 PM CDT Oxygen Saturation 100% 02/02/2025 12:34 PM CDT Inhaled Oxygen Concentration - - Weight 83.1 kg (183 lb 3.2 oz) 02/02/2025 8:40 A M CDT Height 172.7 cm (5' 8) 02/02/2025 8:27 AM CDT Body Mass Index 27.86 02/02/2025 8:27 AM CDT Plan of Treatment Health Maintenance Due Date Last Done Comments Colon Cancer Screening-Colonoscopy 1950 Depression Screening 1950 Prostate Cancer Screening-PSA 1950 DTaP/Tdap/Td Vaccine (1 - Tdap) 1961 Hepatitis B Screening 1968 Pneumococcal vaccine 65+ (1 of 2 - PCV) 1969 Well Visit 65+ 12/05/2015 Zoster Vaccine (2 of 2) 04/24/2019 02/27/2019 Influenza Vaccine (#1) 2025 Fall Risk Assessment 01/30/2026 01/30/2025 Hepatitis C Screening Completed 04/14/2018, 018 Abdominal [...] as needed Medical Devices Explanted Type Area Director Of Extension Work Device Identifier Shelf Expiration Date Model / Serial / Lot [employer] Ian Advanix 10fr 7cm Rapid Exchange Temporary Taper Tip Thin Wall 2 [id number] - [id number] Explanted:Qty: 1 on 02/01/2023 at [facility] Stent N/A: Bile Duct [employer] Ian 11/17/2024 [id number] / / [id number] Description:Slipped out of d uct [employer] Stent Biliary Over The Wire 0.035in Gw Comp Self Expanding E Luminexx [id number] Nitinol [id number] - [id number] Implanted:Qty: 1 on 10/26/2024 at [facility] Explanted:Qty: 1 on 11/12/2024 by Cristiano Gallardo MD at [facility] [employer] [id number] 12/12/2026 [id number] / / [id number] Procedures Procedure Name Priority Date/Time Associated Diagnosis Comments TROPONIN T HIGH-SENSITIVITY 4-HR Timed 02/02/2025 12:08 PM CDT TROPONIN T HIGH-SENSITIVITY 2-HOUR Timed 02/02/2025 10:22 AM CDT XR CHEST 1 VIEW ED 02/02/2025 8:49 AM CDT [facility] CRITICAL CARE ILL/INJURED PATIENT INIT 30-74 MIN Routine 02/02/2025 8:38 AM CDT THYROID FUNCTION CASCADE STAT 02/02/2025 8:37 AM CDT EGFR STAT 02/02/2025 8:37 AM CDT DIFFERENTIAL AUTO STAT 02/02/2025 8:3 7 AM CDT SEPSIS LACTATE WITH REFLEX STAT 02/02/2025 8:37 AM CDT TROPONIN T HIGH-SENSITIVITY SERIES (BASELINE, 2HR, 4HR, 6HR) STAT 02/02/2025 8:37 AM CDT COMPREHENSIVE METABOLIC PANEL STAT 02/02/2025 8:37 AM CDT CBC WITH AUTO DIFFERENTIAL STAT 02/02/2025 8:37 AM CDT CHANGE BILIARY DRAINAGE CATHETER EXTERNAL OR INTERNAL EXTERNAL Schedule Routine, Read Routine (OP Routine) 01/30/2025 2:16 PM CDT Biliary obstruction (HCC) CHANGE BILIARY DRAINAGE CATHETER EXTERNAL OR INTERNAL EXTERNAL Schedule Routine, Read Routine (OP Routine) 01/25/2025 2:57 PM CDT Biliary obstruction (HCC) CHANGE BILIARY [...] ECG 12-LEAD STAT 12/15/2024 8:40 AM CDT [facility] CRITICAL CARE ILL/INJURED PATIENT INIT 30-74 MIN [...] AUTO DIFFERENTIAL STAT 11/11/2024 2:39 PM CDT HEPATITIS C RNA, QUANTITATIVE, PCR Routine 04/14/2018 9:10 AM CDT from Last 3 Months or Most Recently Relevant to Health Maintenance Results * (ABNORMAL) Troponin T high-sensitivity 4-hour (02/02/2025 12:08 PM CDT) Trop T hs 48(H) <=22 ng/L Comment: Interpretive Data For further hscTnT resources including the diagnostic algorithm and an aid in interpretation, copy and paste this link: https://nrl.testcatalog.org/show/hsTrop Current Interpretive Data last revised 2020. Testing performed by: [address] [address] Trop T hs delta -6 ng/L MARTHA HALL Comment:Testing performed by : [address] [address] Trop T hs interp Equivocal MARTHA HALL Comment:Testing performed by : [address] [address] Blood 02/02/2025 12:0 8 PM CDT 02/02/2025 12:15 PM CDT Jimmy Levy DO LAB BLOOD ORDERABLES Final Result Performing Organization Address [facility] Co de Phone Number MARTHA [address] [place] [address] * (ABNORMAL) Troponin T high-sensitivity 2-hour (02/02/2025 10:22 AM CDT) Trop T hs 50(H) <=22 ng/L Comment: Interpretive Data For further hscTnT resources including the diagnostic algorithm and an aid in interpretation, copy and paste this link: https://nrl.testcatalog.org/show/hsTrop Current Interpretive Data last revised 2020. Testing performed by: [facility], [address] [place] [address]., [address] Trop T hs delta -4 ng/L MARTHA Comment:Testing performed by : [facility], [address] [place] [address]., [address] Trop T hs interp Insignificant MARTHA Comment:Testing performed by : [facility], [address] [place] [address]., [id number] Blood 02/02/2025 10:2 2 AM CDT 02/02/2025 10:24 AM CDT Jimmy Levy DO LAB BLOOD ORDERABLES Final Result Performing Organization Address [facility] de Phone Number MARTHA [address] [place] [address] * XR Chest 1 Vw Portable (If patient hemodynamically UNstable or UNable to ambulate) (02/02/2025 8:49AM CDT) Anatomical Region Laterality Modality Body, Chest N/A Computed Radiogr aphy 02/02/2025 9:08 AM CDT Narrative 02/02/2025 9:11 AM CDT EXAM DESCRIPTION: XR CHEST 1 VIEW REASON FOR STUDY: chest pain c/o L cp that started last night, pain is constant and does not radiate, describes as sharp and worsens with deep breath. Pt arrives to ED on 3L O2 via NC that he reports he always wears for his COPD. TECHNIQUE: Single frontal portable upright radiographic view(s) of the chest. COMPARISON: Chest radiograph dated 12/15/2024, 10/22/2024, 08/19/2024 and 07/21/2024. Chest CT dated 10/23/2024. FINDINGS: Right chest wall Aygazd-C-Hcml is in similar configuration when compared to the previous chest radiograph dated 12/15/2024. Tdckf-smoznip-utye-left bilateral upper chest pleuroparenchymal densities are redemonstrated. Blunting of the left costophrenic angle is again seen and compatible with trace pleural effusion. Adjacent left basilar opacity. Cardiomediastinal silhouette is similar in size. Osseous structures without acute interval change. IMPRESSION: No significant change in appearance of the chest when compared to the previous chest radiograph dated 12/15/2024 as above. THIS IS AN ELECTRONICALLY VERIFIED FINAL REPORT 02/02/2025 9:11 AM - Electronically signed by Bryce Osei D.O. AP: AP Report ID: [id number] Reading Location: [id number] Procedure Note Bryce Osei, DO - 02/02/2025 EXAM DESCRIPTION: XR CHEST 1 VIEW REASON FOR STUDY: chest pain c/o L cp that started last night, pain is constant and does not radiate, describes as sharp and worsens with deep breath. Pt arrives to ED on 3L O2via NC that he reports he always wears for his COPD. TECHNIQUE: Single frontal portable upright radiographic view(s) of thechest. COMPARISON: Chest radiograph dated 12/15/2024, 10/22/2024, 08/19/2024 and 07/21/2024. Chest CT dated 10/23/2024. FINDINGS: Right chest wall Gmntlt-T-Bvkl is in similar configuration when compared to the previous chest radiograph dated 12/15/2024. Iviry-sqteyva-iupy-left bilateral upper chest pleuroparenchymal densitiesare redemonstrated. Blunting of the left costophrenic angle is again seen and compatible with trace pleural effusion. Adjacent left basilar opacity. Cardiomediastinal silhouette is similar in size. Osseous structureswithout acute interval change. IMPRESSION: No significant change in appearance of the chest when comparedto the previous chest radiograph dated 12/15/2024 as above. THIS IS AN ELECTRONICALLY VERIFIED FINAL REPORT 02/02/2025 9:11 AM - Electronically signed by Bryce Osei D.O. AP: AP Report ID: [id number] Reading Location: [id number] us Jimmy Levy DO IMG XR PROCEDURES Final Res ult * [place] CRITICAL CARE ILL/INJURED PATIENT INIT 30-74 MIN (02/02/2025 8:38 AM CDT) Narrative Jimmy Levy DO - 02/02/2025 8:38 AM CDT Jimmy Levy DO 02/02/2025 12:25 PM Critical Care Performed by: Jimmy Levy DO Authorized by: Jimmy Levy DO Critical care provider statement: As reflected in the history, physical exam, orders, notes, and/or MDM, I was personally present while the patient was critically ill and provided critical care services for 35 minutes, excluding time involved in separately billable procedures. Critical care was necessary to treat or prevent imminent or life-threatening deterioration of the following condition(s): Chest pain with acute ST elevations Consideration of STEMI Discussion with specialist Workup, monitoring, and management Critical care was time spent by me providing the following: continuous telemetry, continuous pulse oximetry, serial bedside patient exams and interpretation of bedside monitors, imaging, and arterial/venous lab draws I provided emergent necessary critical care medicine services to this patient. I ordered and reviewed test results and/or imaging studies. I spent time discussing the management of this critically ill patient with consultants and the medical staff. I spent time discussing the management and therapeutic options for this critically ill patient with the patient themselves or with the appropriate designated surrogate decision-maker. I spent time documenting in the medical record. us Jimmy Levy DO IN CLINIC/BEDSIDE ORDERABLE S Final Result * (ABNORMAL) Troponin T high-sensitivity series (baseline, 2hr, 4hr, 6hr) (02/02/2025 8:37 AM CDT) [facility] Trop T hs 54(H) <=22 ng/L Comment: Interpretive Data For further hscTnT resources including the diagnostic algorithm and an aid in interpretation, copy and paste this link: https://nrl.testcatalog.org/show/hsTrop Current Interpretive Data last revised 2020. Testing performed by: [address] [address] Blood 02/02/2025 8:37 AM CDT 02/02/2025 8:42 AM CDT Jimmy Levy DO LAB BLOOD ORDERABLES Final Result Performing Organization Address [facility]/ZIP Co de Phone Number JEANNA[address] [place], [place] [id number] * Sepsis Lactate w/ Reflex (02/02/2025 8:37 AM CDT) [facility] Sepsis Lactate 0.9 0.7 - 2.0 mmol/L Comment:Testing performed by : [address] [address] Blood 02/02/2025 8:37 AM CDT 02/02/2025 8:42 AM CDT Jimmy Levy LAB BLOOD ORDERABLES Final Result Performing Organization Address City/[facility]/ZIP Co de Phone Number JEANNA[address] [place] [address] * (ABNORMAL) eGFR (02/02/2025 8:37 AM CDT) [facility] eGFR 31(L) >=60 mL/min/1. 73 m2 Comment: Interpretive Data [...] was last reviewed 2021. Testing performed by: [address] [address] Blood 02/02/2025 8:37 AM CDT 02/02/2025 8:42 AM CDT Jimmy Levy DO LAB BLOOD ORDERABLES Final Result [facility] Department [place] [address] * (ABNORMAL) Differential, auto (02/02/2025 8:37 AM CDT) Neutrophil abs 7.25(H) 1.50 - 6.50 K/cumm Comment:Testing performed by : [address] [address] Imm gran abs 0.03 0.00 - 0.10 K/cumm MARTHA Comment:Testing performed by : [address] [address] Lymphocyte abs 0.36(L) 0.80 - 3.30 K/cumm MARTHA Comment:Testing performed by : [address] [address] Monocyte abs 0.76 0.20 - 0.80 K/cumm MARTHA Comment:Testing performed by : [address] [address] Eosinophil abs 0.21 0.00 - 0.50 K/cumm [facility] Comment:Testing performed by : [address] [address] Basophil abs 0.03 0.00 - 0.10 K/cumm [facility] Comment:Testing performed by : [address] [address] Neutrophil pct 84.0 % [facility] Comment: Interpretive Data Percent cell count reference ranges are not reported, since discordance with absolute values may lead to misinterpretation of CBC data. Current Interpretive Data was last revised on 2017. Testing performed by: [address] [address] Imm gran pct 0.3 % [facility] Comment: Interpretive Data Percent cell count reference ranges are not reported, since discordance with absolute values may lead to misinterpretation of CBC data. Current Interpretive Data was last revised on 2017. Testing performed by: [address] [address] Lymphocyte pct 4.2 % [facility] Comment: Interpretive Data Percent cell count reference ranges are not reported, since discordance with absolute values may lead to misinterpretation of CBC data. Current Interpretive Data was last revised on 2017. Testing performed by: [address] [address] Monocyte pct 8.8 % [facility] Comment: Interpretive Data Percent cell count reference ranges are not reported, since discordance with absolute values may lead to misinterpretation of CBC data. Current Interpretive Data was last revised on 2017. Testing performed by: [address] [address] Eosinophil pct 2.4 % [facility] Comment: Interpretive Data Percent cell count reference ranges are not reported, since discordance with absolute values may lead to misinterpretation of CBC data. Current Interpretive Data was last revised on 2017. Testing performed by: [address] [address] Basophil pct 0.3 % [facility] Comment: Interpretive Data Percent cell count reference ranges are not reported, since discordance with absolute values may lead to misinterpretation of CBC data. Current Interpretive Data was last revised on 2017. Testing performed by: [address] [address] Blood 02/02/2025 8:37 AM CDT 02/02/2025 8:42 AM CDT Jimmy Briceno Cam LAB BLOOD ORDERABLES Final Result Performing Organization Address [facility] de Phone Number [address] [employer] [place] [address] * Thyroid Function [place] (02/02/2025 8:37 AM CDT) TSH 0.40 0.30 - 4.20 mcIUnit/mL Comment:Testing performed by : [address] [address] Blood 02/02/2025 8:37 AM CDT 02/02/2025 8:42 AM CDT Jimmy Levy LAB BLOOD ORDERABLES Final Result Performing Organization Address [facility] de Phone Number [address] [address] * (ABNORMAL) CBC with auto differential (02/02/2025 8:37 AM CDT) WBC 8.64 3.80 - 9.90 K/cumm Comment:Testing performed by : [address] [address] Hgb 8.9(L) 13.0 - 17.5 g/dL MARTHA Comment:Testing performed by : [address] [address] Hct 28.9(L) 38.9 - 50.3 % MARTHA Comment:Testing performed by : [address] [address] Plt 162 150 - 400 K/cumm MARTHA HALL Comment:Testing performed by : [address] [address] MPV 11.0 9.1 - 12.3 fL MARTHA HALL Comment:Testing performed by : [address] [address] RBC 3.19(L) 4.30 - 5.80 M/cumm MARTHA HALL Comment:Testing performed by : [address] [address] MCV 90.6 81.3 - 96.4 fL MARTHA HALL Comment:Testing performed by : [address] [address] MCH 27.9 27.1 - 33.3 pg MARTHA HALL Comment:Testing performed by : [address] [address] MCHC 30.8(L) 32.3 - 35.7 g/dL MARTHA HALL Comment:Testing performed by : [address] [address] RDW CV 16.4(H) 11.1 - 14.9 % MARTHA Comment:Testing performed by : [address] [address] RDW SD 54.1(H) 35.7 - 48.1 fL MARTHA Comment:Testing performed by : [address] [address] NRBC abs 0.00 0.00 - 0.01 K/cumm MARTHA HALL Comment:Testing performed by : [address] [address] Blood Venous blood specimen / Unknown 02/02/2025 8:37 AM CDT 02/02/2025 8:42 AM CDT Jimmy Levy DO LAB BLOOD ORDERABLES Final Result MARTHA HALL [address] [facility] Department [place] [address] * (ABNORMAL) Comprehensive metabolic panel (02/02/2025 8:37 AM CDT) Sodium 141 135 - 145 mmol/L Comment:Testing performed by : [address] [address] Potassium, pl 4.2 3.3 - 4.9 mmol/L [facility] Comment:Testing performed by : [address] [address] Chloride 109 97 - 110 mmol/L [facility] Comment:Testing performed by : [address], [place]., [address] CO2 18(L) 22 - 32 mmol/L [facility] Comment:Testing performed by : [address] [address] Anion gap 14 2 - 15 mmol/L [facility] Comment:Testing performed by : [address] [address] BUN 29(H) 6 - 25 mg/dL [facility] Comment:Testing performed by : [address], [place]., [address] Creatinine 2.18(H) 0.80 - 1.30 mg/dL [facility] Comment:Testing performed by : [address] [address] Glucose 112 70 - 199 mg/dL [facility] Comment: Interpretive Data Fasting glucose [...] was last revised 2022. Testing performed by: [address] [address] Calcium 9.2 8.5 - 10.3 mg/dL [facility] Comment:Testing performed by : [address] [address] Bilirubin, total 0.6 0.1 - 1.2 mg/dL [facility] Comment:Testing performed by : [address] [address] Protein, pl 6.9 6.5 - 8.5 g/dL MARTHA Comment:Testing performed by : [address] [address] Albumin 3.7 3.5 - 5.0 g/dL MARTHA Comment:Testing performed by : [address] [address] Alk phos 104 40 - 130 Units/L MARTHA Comment:Testing performed by : [address] [address] ALT 7 7 - 55 Units/L MARTHA Comment:Testing performed by : [address] [address] AST 8(L) 10 - 50 Units/L MARTHA Comment:Testing performed by : [address] [address] Blood 02/02/2025 8:37 AM CDT 02/02/2025 8:42 AM CDT us Jimmy Levy DO LAB BLOOD ORDERABLES Final Result MARTHA [facility] Department [place] [address] * IR Change Biliary Drainage Catheter External Or Internal External (01/30/2025 2:16 PM CDT) Anatomical Region Laterality Modality Body N/A X-Ray Angiograph y 01/30/2025 3:34 PM CDT Impressions 01/30/2025 3:34 PM CDT Successful biliary catheter exchange and instillation of alteplase as described above. PLAN: The patient will return for interval biliary drainage catheter exchange in 1 week with repeat administration of alteplase. At next visit, may consider upsizing to an 18-Belizean [place] catheter and debriding through an 18-Belizean Thal or Haroon catheter. Would also recommend instilling the tPA directly into the distal [place] loop by using a Kumpe catheter through the Center [place] with a Tuohy on the back end of the Kumpe. Continue to flush drain with 20 mL normal saline 3 times daily. 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 Patient reports his external biliary drain has had minimal drain output and persistent pericatheter leakage since last drain exchange 5 days ago. PROVIDER PRESENCE: Jennifer Perry PA-C, was present from the beginning to the end of the procedure. SEDATION: Conscious sedation was administered to the patient. TECHNIQUE: The risks, benefits and alternatives were discussed and informed consent was obtained. Prior to beginning the procedure, Logan Protocol was performed to confirm the patient's [...] was exchanged over the wire for a 16-Belizean Thal catheter, intentionally positioned in the common bile duct. A 4-Belizean Kumpe catheter and Bentson guidewire were advanced through the Thal catheter in an effort to break up the gelatinous drainage causing obstruction in the catheter. The Kumpe and guidewire were then removed and the gelatinous drainage was aspirated through the Thal catheter. A small amount of 0.9% sodium chloride was injected through the catheter. This entire process was repeated several times until additional mucinous drainage could no longer be aspirated. An Amplatz guidewire was then advanced through the Thal catheter under fluoroscopic guidance. The Thal catheter was exchanged over the guidewire for a new 16-Belizean [place] catheter. Limited contrast injection through the catheter [...] DISCHARGED TO: Recovery and then home. FINDINGS: Initial contrast injection demonstrates the existing drainage catheter with partial occlusion and partially retracted back in the common bile duct. Through catheter and guidewire manipulation and saline irrigation through the Thal catheter, approximately 90-100 cc of bilious gelatinous drainage was aspirated. Following drain exchange, the new catheter appeared in appropriate position within the common bile duct. Alteplase was instilled to improve catheter output. 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 Patient reports his external biliary drain has had minimal drain output and persistent pericatheter leakage since last drain exchange 5 days ago. PROVIDER PRESENCE: Jennifer Perry PA-C, was present from the beginning to the end of the procedure. SEDATION: Conscious sedation was administered to the patient. TECHNIQUE: The risks, benefits and alternatives were discussed and informed consent was obtained. Prior to beginning the procedure, Logan Protocol was performed to confirm the patient's [...] was exchanged over the wire for a 16-Belizean Thal catheter, intentionally positioned in the common bile duct. A 4-Belizean Kumpe catheter and [employer] guidewire were advanced through the Thal catheter in an effort to break up the gelatinous drainage causing obstruction in the catheter. The Kumpe and guidewire were then removed and the gelatinous drainage was aspirated through the Thal catheter. A small amount of 0.9% sodium chloride was injected through the catheter. This entire process was repeated several times until additional mucinous drainage could no longer be aspirated. An Amplatz guidewire was then advanced through the Thal catheter under fluoroscopic guidance. The Thal catheter was exchanged over the guidewire for a new 16-Belizean [place] catheter. Limited contrast injection through the catheter [...] DISCHARGED TO: Recovery and then home. FINDINGS: Initial contrast injection demonstrates the existing drainage catheter with partial occlusion and partially retracted back in the common bile duct. Through catheter and guidewire manipulation and saline irrigation through the Thal catheter, approximately 90-100 cc of bilious gelatinous drainage was aspirated. Following drain exchange, the new catheter appeared in appropriate position within the common bile duct. Alteplase was instilled to improve catheter output. IMPRESSION: Successful biliary catheter exchange and instillation of alteplase as described above. PLAN: The patient will return for interval biliary drainage catheter exchange in 1 week with repeat administration of alteplase. At next visit, may consider upsizing to an 18-Belizean [place] catheter and debriding through an 18-Belizean Thal or Haroon catheter. Would also recommend instilling the tPA directly into the distal [place] loop by using a Kumpe catheter through the [place] with a Tuohy on the back end of the Kumpe. Continue to flush drain with 20 mL normal saline 3 times daily. [facility] - [phone] Electronically signed by: Jennifer Perry PA-C Jennifer CEDILLO IMG IR PROCEDURES Final Result * IR Change Biliary Drainage Catheter External Or Internal External (01/25/2025 2:57 PM CDT) Anatomical Region Laterality Modality Body N/A X-Ray Angiograph y 01/25/2025 3:44 PM CDT Impressions 01/25/2025 3:44 PM CDT Successful biliary catheter exchange and instillation of alteplase as described above. PLAN: The patient will return for interval biliary drainage catheter exchange in 1 week with repeat administration of alteplase. Would recommend repeating the mucin aspiration through a Thal as performed above. Continue to flush drain with 20 mL normal saline 3 times daily. 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 Patient reports improved drainage with more frequent drain exchanges and instillation of alteplase. PROVIDER PRESENCE: Jennifer Perry PA-C, was present from the beginning to the end of the procedure. SEDATION: Conscious sedation was administered to the patient. TECHNIQUE: The risks, benefits and alternatives were discussed and informed consent was obtained. Prior to beginning the procedure, Logan Protocol was performed to confirm the patient's [...] was exchanged over the wire for a 16-Belizean Thal catheter through which 0.9% sodium chloride irrigation and mucin evacuation was performed. The Thal catheter was then exchanged over the guidewire for a new 16-Belizean [place] catheter. Limited contrast injection through the catheter [...] Recovery and then home. FINDINGS: Contrast injection demonstrates the existing drainage catheter with partial occlusion. Following drain exchange, the new catheter appeared in appropriate position within the common bile duct. Approximately 80 cc of mucin was evacuated through the Thal catheter until the aspirated fluid was thin and bilious. Alteplase was instilled to improve catheter output. 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 Patient reports improved drainage with more frequent drain exchanges and instillation of alteplase. PROVIDER PRESENCE: Jennifer Perry PA-C, was present from the beginning to the end of the procedure. SEDATION: Conscious sedation was administered to the patient. TECHNIQUE: The risks, benefits and alternatives were discussed and informed consent was obtained. Prior to beginning the procedure, Logan Protocol was performed to confirm the patient's [...] was exchanged over the wire for a 16-Belizean Thal catheter through which 0.9% sodium chloride irrigation and mucin evacuation was performed. The Thal catheter was then exchanged over the guidewire for a new 16-Belizean [place] catheter. Limited contrast injection through the catheter [...] Recovery and then home. FINDINGS: Contrast injection demonstrates the existing drainage catheter with partial occlusion. Following drain exchange, the new catheter appeared in appropriate position within the common bile duct. Approximately 80 cc of mucin was evacuated through the [...] 20 mL normal saline 3 times daily. [facility] - [phone] Electronically signed by: Jennifer Perry PA-C Jennifer NICHOLS IR PROCEDURES Final Result * IR Change [...] 20 mL normal saline 3 times daily. [facility] - [phone] Electronically signed by: Nicolasa Moreira PA-C Narrative [...] was obtained. Prior to beginning the procedure, Logan Protocol was performed to confirm the patient's [...] The catheter was then divided and a [employer] wire was advanced through the catheter under fluoroscopic monitoring. The existing catheter was exchanged over the wire for a 16 Fr Thal catheter through which irrigation and mucin evacuation was performed. The Thal catheter was then exchanged over the wire for a new 16-Belizean [place] catheter. Limited contrast injection through the catheter [...] was obtained. Prior to beginning the procedure, Logan Protocol was performed to confirm the patient's [...] The catheter was then divided and a [employer] wire was advanced through the catheter under fluoroscopic monitoring. The existing catheter was exchanged over the wire for a 16 Fr Thal catheter through which irrigation and mucin evacuation was performed. The Thal catheter was then exchanged over the wire for a new 16-Belizean [place] catheter. Limited contrast injection through the catheter [...] 20 mL normal saline 3 times daily. [facility] - [phone] Electronically signed by: Nicolasa Moreira PA-C Jennifer [...] 20 mL normal saline 3 times daily. [facility] - [phone] Electronically signed by: Jennifer Perry PA-C Narrative [...] was obtained. Prior to beginning the procedure, Logan Protocol was performed to confirm the patient's [...] exchanged over the wire for a new 16-Belizean [place] catheter. Limited contrast injection through the catheter [...] was obtained. Prior to beginning the procedure, Logan Protocol was performed to confirm the patient's [...] exchanged over the wire for a new 16-Belizean [place] catheter. Limited contrast injection through the catheter [...] 20 mL normal saline 3 times daily. [facility] - [phone] Electronically signed by: Jennifer Perry PA-C us Deven CEDILLO IMG IR PROCEDURES [...] was obtained. Prior to beginning the procedure, Logan Protocol was performed to confirm the patient's [...] The catheter was then divided and a [employer] wire was advanced through the catheter under fluoroscopic monitoring. The existing catheter was exchanged over the wire for a new 16-Belizean cope catheter. Limited contrast injection through the [...] was obtained. Prior to beginning the procedure, Logan Protocol was performed to confirm the patient's [...] The catheter was then divided and a [employer] wire was advanced through the catheter under fluoroscopic monitoring. The existing catheter was exchanged over the wire for a new 16-Belizean cope catheter. Limited contrast injection through the [...] was obtained. Prior to beginning the procedure, Logan Protocol was performed to confirm the patient's [...] The catheter was then divided and a [employer] wire was advanced through the catheter under fluoroscopic monitoring. The existing 18 Belizean catheter was exchanged over the guidewire for an 18 Belizean sheath and this was used to aspirate [...] the end of the procedure, new 16 Belizean locking pigtail catheter was placed with its [...] was obtained. Prior to beginning the procedure, Logan Protocol was performed to confirm the patient's [...] The catheter was then divided and a [employer] wire was advanced through the catheter under fluoroscopic monitoring. The existing 18 Belizean catheter was exchanged over the guidewire for an 18 Belizean sheath and this was used to aspirate [...] the end of the procedure, new 16 Belizean locking pigtail catheter was placed with its [...] questions arise, please contact us by calling [phone]. Electronically signed by: Jennifer Perry PA-C Narrative [...] patient. TECHNIQUE: Prior to beginning the procedure, Logan Protocol was used to confirm the patient's identity and planned procedure. Fluoroscopy time has been recorded in the electronic medical record. Maximum sterile barriers including cap, mask, hand hygiene, sterile gloves, sterile gown, large sterile drape and 2% chlorhexidine for cutaneous antisepsis were used. After obtaining a head end desizing machine operator image, the right upper quadrant 18-Belizean Center [place] external biliary catheter was injected with dilute contrast and multiple diagnostic fluoroscopic spot images were obtained. The skin overlying the collection was sterilely prepped, draped and infiltrated with 1% lidocaine. The catheter was then exchanged over a [employer] guidewire for a new 18-Belizean Haroon catheter with additional sideholes. The Haroon catheter was used to inject 0.9% sodium chloride and then the drain was attached to either wall suction or the Accordion suction bag. These steps were repeated numerous times until over 300 cc mucinous biliary fluid was drained. Ultimately a new 18-Belizean [place] catheter was exchanged over the wire and [...] patient. TECHNIQUE: Prior to beginning the procedure, Logan Protocol was used to confirm the patient's identity and planned procedure. Fluoroscopy time has been recorded in the electronic medical record. Maximum sterile barriers including cap, mask, hand hygiene, sterile gloves, sterile gown, large sterile drape and 2% chlorhexidine for cutaneous antisepsis were used. After obtaining a head end desizing machine operator image, the right upper quadrant 18-Belizean Center [place] external biliary catheter was injected with dilute contrast and multiple diagnostic fluoroscopic spot images were obtained. The skin overlying the collection was sterilely prepped, draped and infiltrated with 1% lidocaine. The catheter was then exchanged over a [employer] guidewire for a new 18-Belizean Haroon catheter with additional sideholes. The Haroon catheter was used to inject 0.9% sodium chloride and then the drain was attached to either wall suction or the Accordion suction bag. These steps were repeated numerous times until over 300 cc mucinous biliary fluid was drained. Ultimately a new 18-Belizean [place] catheter was exchanged over the wire and [...] questions arise, please contact us by calling [phone]. Electronically signed by: Jennifer Perry PA-C Nicolasa CEDILLO IMKyler IR PROCEDURES Fin al Result * IR Change Biliary Drainage Catheter External Or Internal External (12/20/2024 1:43 PM CDT) Anatomical Region Laterality Modality Body N/A X-Ray Angiograph y 12/20/2024 3:40 PM CDT Impressions 12/20/2024 3:40 PM CDT Successful exchange of 18 Fr [place] catheter in the common bile duct. PLAN: [...] catheter was exchanged for an 18 Fr [place] catheter within the significantly distended common bile [...] was obtained. Prior to beginning the procedure, Logan Protocol was performed to confirm the patient's identity and the planned procedure. The fluoroscopy time has been recorded in the electronic medical record. Under fluoroscopic guidance, over a [employer] guidewire, the existing 18 Belizean cope catheter was exchanged for a new 18 Fr [place] catheter. The loop was formed in the [...] Initial images showed a patent 18 Fr [place] catheter with loop still in place in the dilated common bile duct. The final fluoroscopic image demonstrates appropriate positioning of a new 18 Belizean cope loop within the common bile duct. [...] catheter was exchanged for an 18 Fr [place] catheter within the significantly distended common bile [...] was obtained. Prior to beginning the procedure, Logan Protocol was performed to confirm the patient's identity and the planned procedure. The fluoroscopy time has been recorded in the electronic medical record. Under fluoroscopic guidance, over a Bentson guidewire, the existing 18 Belizean cope catheter was exchanged for a new 18 Fr [place] catheter. The loop was formed in the [...] Initial images showed a patent 18 Fr [place] catheter with loop still in place in the dilated common bile duct. The final fluoroscopic image demonstrates appropriate positioning of a new 18 Belizean cope loop within the common bile duct. IMPRESSION: Successful exchange of 18 Fr [place] catheter in the common bile duct. PLAN: [...] MD LAB BLOOD ORDERABLES Final Result MARTHA [facility]3 [facility] [place] [address] * XR Chest 1 Vw Portable (If [...] Loi Frias M.D., JR T: Report ID: [id number] Reading Location: [id number] Procedure Note Loi Frias MD - 12/15/2024 [...] Loi Frias M.D., JR T: Report ID: [id number] Reading Location: [id number] us Cuauhtemoc Isaac MD IMG XR PROCEDURES Final Re sult * ECG 12 lead (12/15/2024 8:40 AM CDT) Ventricular Rate EKG/Min 97 BPM [facility] Atrial Rate 97 BPM [facility] NH-Interval (MSEC) 152 ms [facility] QRS-Interval (MSEC) 80 ms [facility] QT-Interval (MSEC) 360 ms [facility] QTc 457 ms [facility] P Peck 69 degrees [facility] R Peck 9 degrees [facility] T Peck 73 degrees [facility] Diagnosis Normal sinus rhythm Normal ECG When compared with ECG of 06-AUG-2024 06:37, No significant change was found Confirmed by NEHA RUSSELL M.D. ([id number]) on 12/15/2024 10:52:21 AM [facility] 12/15/2024 8:40 AM CDT 12/15/2024 10:52 AM CDT us Cuauhtemoc Isaac MD ECG ORDERABLES Final Resu lt [facility] * [place] CRIT[facility] CARE ILL/INJURED PATIENT INIT 30-74 MIN [...] Isaac MD LAB BLOOD ORDERABLES Final Result [place] [id number] [facility] Department [place] [address] * (ABNORMAL) eGFR (12/15/2024 8:27 AM CDT) eGFR 34(L) >=60 mL/min/1. 73 m2 Comment: [...] AM CDT 12/15/2024 8:29 AM CDT us Cuauhetmoc Isaac MD LAB BLOOD ORDERABLES Final Result MARTHA 0[address] [facility] Department [place] [address] * (ABNORMAL) Differential, auto (12/15/2024 8:27 AM CDT) Pathologist [facility] [place] Neutrophil abs 2.34 1.50 - 6.50 K/cumm Imm gran abs 0.02 0.00 - 0.10 K/cumm [facility] Lymphocyte abs 0.53(L) 0.80 - 3.30 K/cumm [facility] Monocyte abs 0.45 0.20 - 0.80 K/cumm [facility] Eosinophil abs 0.18 0.00 - 0.50 K/cumm [facility] Basophil abs 0.01 0.00 - 0.10 K/cumm [facility] Neutrophil pct 66.3 % [facility] Comment: Interpretive Data Percent cell count reference ranges are not reported, since discordance with absolute values may lead to misinterpretation of CBC data. Current Interpretive Data was last revised on 2017. Imm gran pct 0.6 % [facility] Comment: Interpretive Data Percent cell count reference ranges are not reported, since discordance with absolute values may lead to misinterpretation of CBC data. Current Interpretive Data was last revised on 2017. Lymphocyte pct 15.0 % [facility] Comment: Interpretive Data Percent cell count reference ranges are not reported, since discordance with absolute values may lead to misinterpretation of CBC data. Current Interpretive Data was last revised on 2017. Monocyte pct 12.7 % [facility] Comment: Interpretive Data Percent cell count reference ranges are not reported, since discordance with absolute values may lead to misinterpretation of CBC data. Current Interpretive Data was last revised on 2017. Eosinophil pct 5.1 % [facility] Comment: Interpretive Data Percent cell count reference ranges are not reported, since discordance with absolute values may lead to misinterpretation of CBC data. Current Interpretive Data was last revised on 2017. Basophil pct 0.3 % [facility] Comment: Interpretive Data Percent cell count reference ranges are not reported, since discordance with absolute values may lead to misinterpretation of CBC data. Current Interpretive Data was last revised on 2017. Blood 12/15/2024 8:27 AM CDT 12/15/2024 8:29 AM CDT Cuauhtemoc Isaac MD LAB BLOOD ORDERABLES Final Result Performing Organization Address [facility] Co de Phone Number [facility] [address] [place] [address] * (ABNORMAL) CBC with auto differential (12/15/2024 8:27 AM CDT) WBC 3.53(L) 3.80 - 9.90 K/cumm Hgb 8.7(L) 13.0 - 17.5 g/dL [facility] Hct 28.4(L) 38.9 - 50.3 % [facility] Plt 108(L) 150 - 400 K/cumm [facility] MPV 10.4 9.1 - 12.3 fL [facility] RBC 3.11(L) 4.30 - 5.80 M/cumm [facility] MCV 91.3 81.3 - 96.4 fL [facility] MCH 28.0 27.1 - 33.3 pg [facility] MCHC 30.6(L) 32.3 - 35.7 g/dL [facility] RDW CV 16.9(H) 11.1 - 14.9 % [facility] RDW SD 56.8(H) 35.7 - 48.1 fL [facility] NRBC abs 0.00 0.00 - 0.01 K/cumm [facility] Blood 12/15/2024 8:27 AM CDT 12/15/2024 8:29 AM CDT Cuauhtemoc Isaac MD LAB BLOOD ORDERABLES Final Result Performing Organization Address City/[facility]/ZIP Co de Phone Number [facility] [address] [place] [address] * (ABNORMAL) Comprehensive metabolic panel (12/15/2024 8:27 AM CDT) Sodium 141 135 - 145 mmol/L Potassium, pl 4.4 3.3 - 4.9 mmol/L [facility] Chloride 110 97 - 110 mmol/L [facility] CO2 18(L) 22 - 32 mmol/L [facility] Anion gap 13 2 - 15 mmol/L [facility] BUN 27(H) 6 - 25 mg/dL [facility] Creatinine 2.01(H) 0.80 - 1.30 mg/dL [facility] Glucose 98 70 - 199 mg/dL [facility] Comment: Interpretive Data Fasting glucose [...] 2022. Calcium 8.9 8.5 - 10.3 mg/dL [facility] Bilirubin, total 1.1 0.1 - 1.2 mg/dL [facility] Protein, pl 7.0 6.5 - 8.5 g/dL [facility] Albumin 3.7 3.5 - 5.0 g/dL [facility] Alk phos 107 40 - 130 Units/L [facility] ALT 5(L) 7 - 55 Units/L [facility] AST 12 10 - 50 Units/L [facility] Blood 12/15/2024 8:27 AM CDT 12/15/2024 8:29 AM CDT us Cuauhtemoc Isaac MD LAB BLOOD ORDERABLES Final Result [facility] [address] [facility] Department [place] [address] * IR Change Biliary Drainage Catheter External [...] leakage. He currently has been a 16 [place] Haroon internal/external biliary drain which is now [...] was obtained. Prior to beginning the procedure, Logan Protocol was performed to confirm the patient's identity and the planned procedure. The fluoroscopy time has been recorded in the electronic medical record. The patient was positioned on the fluoroscopy table and a head end desizing machine operator image obtained. The existing port and catheter was exchanged over a guidewire for a 10 [place]an sheath and contrast was injected to side [...] more sense long-term. Therefore, a new 16 Bel[place]an Haroon catheter was used to irrigate the [...] was made. Over a guidewire, an 18 Belizean cope catheter was inserted into the common [...] and then to outpatient recovery FINDINGS: A head end desizing machine operator image demonstrates many of the sideholes of [...] image demonstrates appropriate positioning of an 18 Belizean cope loop within the common bile duct [...] leakage. He currently has been a 16 Bel[place] Haroon internal/external biliary drain which is now [...] was obtained. Prior to beginning the procedure, Logan Protocol was performed to confirm the patient's identity and the planned procedure. The fluoroscopy time has been recorded in the electronic medical record. The patient was positioned on the fluoroscopy table and a head end desizing machine operator image obtained. The existing port and catheter was exchanged over a guidewire for a 10 Belizean sheath and contrast was injected to side [...] more sense long-term. Therefore, a new 16 Belizean Haroon catheter was used to irrigate the [...] was made. Over a guidewire, an 18 Belizean cope catheter was inserted into the common [...] and then to outpatient recovery FINDINGS: A head end desizing machine operator image demonstrates many of the sideholes of [...] image demonstrates appropriate positioning of an 18 Belizean cope loop within the common bile duct [...] BLOOD NIKHIL MEYERS Final Result [facility] [address] Department [place] [address] * (ABNORMAL) Comprehensive metabolic panel (11/15/2024 2:55 PM CDT) Sodium 141 135 - 145 mmol/L Potassium, pl 4.2 3.3 - 4.9 mmol/L [facility] Chloride 113(H) 97 - 110 mmol/L [facility] CO2 17(L) 22 - 32 mmol/L [facility] Anion gap 11 2 - 15 mmol/L [facility] BUN 41(H) 6 - 25 mg/dL [facility] Creatinine 1.89(H) 0.80 - 1.30 mg/dL [facility] Glucose 98 70 - 199 mg/dL [facility] Comment: Interpretive Data Fasting glucose >/= [...] 8.8 8.5 - 10.3 mg/dL [facility] Bilirubin, total 2.5(H) 0.1 - 1.2 mg/dL [facility] Protein, pl 6.3(L) 6.5 - 8.5 g/dL [facility] Albumin 2.6(L) 3.5 - 5.0 g/dL [facility] Alk phos 221(H) 40 - 130 Units/L [facility] ALT 21 7 - 55 Units/L [facility] AST 18 10 - 50 Units/L [facility] Blood 11/15/2024 2:55 PM CDT 11/15/2024 3:14 PM CDT us Gigi Jackman MD LAB BLOOD ORDPadmini MEYERS Final Result Performing Organization Address [facility]/ZIP Co de Phone Number [facility] [address] Department of Laboratories [place], [place] [id number] * (ABNORMAL) eGFR (11/13/2024 8:30 AM CDT) [...] BLOOD ORDERABLES Final Result Performing Organization Address City/[facility]/ZIP Co de Phone Number [facility] [address] Department of Laboratories [place], [place] [id number] * (ABNORMAL) Differential, auto (11/13/2024 8:30 AM CDT) Neutrophil abs 5.33 1.50 - 6.50 K/cumm Imm gran abs 0.28(H) 0.00 - 0.10 K/cumm [facility] Lymphocyte abs 0.55(L) 0.80 - 3.30 K/cumm [facility] Monocyte abs 0.66 0.20 - 0.80 K/cumm [facility] Eosinophil abs 0.23 0.00 - 0.50 K/cumm [facility] Basophil abs 0.02 0.00 - 0.10 K/cumm [facility] Neutrophil pct 75.3 % [facility] Comment: Interpretive Data Percent cell count reference ranges are not reported, since discordance with absolute values may lead to misinterpretation of CBC data. Current Interpretive Data was last revised on 2017. Imm gran pct 4.0 % [facility] Comment: Interpretive Data Percent cell count reference ranges are not reported, since discordance with absolute values may lead to misinterpretation of CBC data. Current Interpretive Data was last revised on 2017. Lymphocyte pct 7.8 % [facility] Comment: Interpretive Data Percent cell count reference ranges are not reported, since discordance with absolute values may lead to misinterpretation of CBC data. Current Interpretive Data was last revised on 2017. Monocyte pct 9.3 % [facility] Comment: Interpretive Data Percent cell count reference ranges are not reported, since discordance with absolute values may lead to misinterpretation of CBC data. Current Interpretive Data was last revised on 2017. Eosinophil pct 3.3 % [facility] Comment: Interpretive Data Percent cell count reference ranges are not reported, since discordance with absolute values may lead to misinterpretation of CBC data. Current Interpretive Data was last revised on 2017. Basophil pct 0.3 % [facility] Comment: Interpretive Data Percent cell count reference ranges are not reported, since discordance with absolute values may lead to misinterpretation of CBC data. Current Interpretive Data was last revised on 2017. Blood 11/13/2024 8:30 AM CDT 11/13/2024 8:37 AM CDT us Cristiano Gallardo MD LAB BLOOD ORDERABLES Final Result [facility] [address] Department [place] [address] * (ABNORMAL) CBC with auto differential (11/13/2024 8:30 AM CDT) [facility] WBC 7.07 3.80 - 9.90 K/cumm Hgb 8.0(L) 13.0 - 17.5 g/dL [facility] Hct 25.9(L) 38.9 - 50.3 % [facility] Plt 237 150 - 400 K/cumm [facility] MPV 10.7 9.1 - 12.3 fL [facility] RBC 2.87(L) 4.30 - 5.80 M/cumm [facility] MCV 90.2 81.3 - 96.4 fL [facility] MCH 27.9 27.1 - 33.3 pg [facility] MCHC 30.9(L) 32.3 - 35.7 g/dL [facility] RDW CV 17.2(H) 11.1 - 14.9 % [facility] RDW SD 55.9(H) 35.7 - 48.1 fL [facility] NRBC abs 0.00 0.00 - 0.01 K/cumm [facility] Blood 11/13/2024 8:30 AM CDT 11/13/2024 8:37 AM CDT us Cristiano Gallardo MD LAB BLOOD ORDERABLES Final Result [facility] [address] Department [place] [address] * (ABNORMAL) Comprehensive metabolic panel (11/13/2024 8:30 AM CDT) [facility] Sodium 141 135 - 145 mmol/L Potassium, pl 4.3 3.3 - 4.9 mmol/L [facility] Chloride 111(H) 97 - 110 mmol/L [facility] CO2 16(L) 22 - 32 mmol/L [facility] Anion gap 14 2 - 15 mmol/L [facility] BUN 50(H) 6 - 25 mg/dL [facility] Creatinine 2.44(H) 0.80 - 1.30 mg/dL [facility] Glucose 108 70 - 199 mg/dL [facility] Comment: Interpretive Data Fasting glucose >/= [...] 8.7 8.5 - 10.3 mg/dL [facility] Bilirubin, total 3.3(H) 0.1 - 1.2 mg/dL [facility] Protein, pl 6.5 6.5 - 8.5 g/dL [facility] Albumin 2.7(L) 3.5 - 5.0 g/dL [facility] Alk phos 269(H) 40 - 130 Units/L [facility] ALT 26 7 - 55 Units/L [facility] AST 23 10 - 50 Units/L [facility] Blood 11/13/2024 8:30 AM CDT 11/13/2024 8:37 AM CDT us Cristiano Gallardo MD LAB BLOOD ORDERABLES Final Result [facility] [address] Department [place] [address] * (ABNORMAL) Urinalysis reflex to microscopic and culture Urine (11/12/2024 4:03 PM CDT) Color, ur Yellow Yellow Clarity, ur Clear Clear [facility] Specific gravity, ur 1.018 1.003 - 1.030 [facility] pH, urine 6.0 [facility] Comment: Interpretive Data U rine pH is affected by diet, medications, systemic acid-base disturbances, and renal tubular function. pH may affect urinary stone formation. For example, urine pH below 6.0 may help reduce the tendency for calcium phosphate stones and pH greater than 6.0 may reduce the tendency for uric acid stone formation. Source: [facility] Current Interpretive Data was last revised on 2017 Protein, ur ql 1+(A) Negative [facility] Glucose, ur ql Negative Negative [facility] Ketones, ur Negative Negative [facility] Bilirubin, ur Negative Negative [facility] Blood, ur 3+(A) Negative [facility] Urobilinogen, ur <2.0 <2.0 mg/dL [facility] Nitrite, ur Negative Negative [facility] Leukocyte esterase, ur Negative Negative [facility] UA reflex comment Reflex to microscopic UA will be performed. [facility] Urine 11/12/2024 4:03 PM CDT 11/12/2024 4:03 PM CDT Narrative [facility] - 11/12/2024 4:10 PM CDT If patient unable to urinate, straight cath us Thor Herr MD LAB MICROBIOLOGY - GENERAL O RDERABLES Final Result Performing Organization Address City/[facility] Co de Phone Number [facility] [address] Department [place] [employer] [place] [address] * (ABNORMAL) Urinalysis, microscopic only (11/12/2024 4:03 PM CDT) WBC, ur 6-10(A) 0 - 5 /HPF RBC, ur >50(A) 0 - 2 /HPF [facility] Epithelial cells, squamous, ur 1-5 0 - 5 /HPF [facility] Bacteria, ur Trace(A) [facility] Culture Reflex Comment Reflex conditions for urine culture (WBC >10) not met. [facility] Urine 11/12/2024 4:03 PM CDT 11/12/2024 4:07 PM CDT Salinas Pro MD LAB URINE ORDERABLES Final R esult Performing Organization Address City/[facility]/ZIP Co de Phone Number [facility] [address] Department [place] [address] * [place] Fluoroscopy < 1 Hour (11/12/2024 2:50 PM CDT) Narrative [facility] - 11/12/2024 2:51 PM CDT The images from this study are not interpreted by Radiology. Please refer to the physician's procedure / OR operative note. us Cristiano Gallardo MD [facility] FLUOROSCOPY PROCEDURES Final Result [facility] * Small bowel enteroscopy (11/12/2024 2:28 PM CDT) Anatomical Region Laterality Modality Other Narrative Procedure Note Cristiano Gallardo MD - 11/12/2024 2:28 PM CDT ENDOSCOPY LAB Patient Name: Lee Cotto Procedure Date: 11/12/2024 2:28 PM Admit Type: Inpatient Room: [facility] 9 Date of : 1950 Instrument Name: [id number] [...] the days following this procedure please call [phone] ask for my nurse, Vianey Benitez. After hours and evenings please call [phone] and speak to theGI fellow sock and stocking ironer. Please tell the fellow that Dr. Gallardo did your procedure and that you were instructed to have the fellow call me or thephysician covering for me to discuss the management of your condition. If you have an urgent problem, please goto the nearest emergency room and have the ER doctorcall my office during the day or [facility] transfer ([phone]) center after hours and weekends to arrange [...] was obtained. Prior to beginning the procedure, Logan Protocol was performed to confirm the patient's [...] advanced through the catheter under fluoroscopic monitoring. 18-Belizean sheath was placed. A 2nd guidewire was then placed in the proximal jejunum. Over this guidewire, a 14-Belizean suction catheter was used to aspirate mucosal debris within the CBD stent and bile ducts. Repeat cholangiogram was performed. Subsequently over the guidewire, an 18-Belizean Haroon internal/external catheter was advanced with its [...] was obtained. Prior to beginning the procedure, Logan Protocol was performed to confirm the patient's [...] advanced through the catheter under fluoroscopic monitoring. 18-Belizean sheath was placed. A 2nd guidewire was then placed in the proximal jejunum. Over this guidewire, a 14-Belizean suction catheter was used to aspirate mucosal debris within the CBD stent and bile ducts. Repeat cholangiogram was performed. Subsequently over the guidewire, an 18-Belizean Haroon internal/external catheter was advanced with its [...] LAB BLOOD ORDERABLES Final Resu lt [facility] [address] Department [place] [address] * (ABNORMAL) Differential, auto (11/12/2024 9:11 AM CDT) Neutrophil abs 5.49 1.50 - 6.50 K/cumm Imm gran abs 0.41(H) 0.00 - 0.10 K/cumm [facility] Lymphocyte abs 0.56(L) 0.80 - 3.30 K/cumm [facility] Monocyte abs 0.79 0.20 - 0.80 K/cumm [facility] Eosinophil abs 0.17 0.00 - 0.50 K/cumm [facility] Basophil abs 0.03 0.00 - 0.10 K/cumm [facility] Neutrophil pct 73.7 % [facility] Comment: Interpretive Data Percent cell count reference ranges are not reported, since discordance with absolute values may lead to misinterpretation of CBC data. Current Interpretive Data was last revised on 2017. Imm gran pct 5.5 % [facility] Comment: Interpretive Data Percent cell count reference ranges are not reported, since discordance with absolute values may lead to misinterpretation of CBC data. Current Interpretive Data was last revised on 2017. Lymphocyte pct 7.5 % [facility] Comment: Interpretive Data Percent cell count reference ranges are not reported, since discordance with absolute values may lead to misinterpretation of CBC data. Current Interpretive Data was last revised on 2017. Monocyte pct 10.6 % [facility] Comment: Interpretive Data Percent cell count reference ranges are not reported, since discordance with absolute values may lead to misinterpretation of CBC data. Current Interpretive Data was last revised on 2017. Eosinophil pct 2.3 % [facility] Comment: Interpretive Data Percent cell count reference ranges are not reported, since discordance with absolute values may lead to misinterpretation of CBC data. Current Interpretive Data was last revised on 2017. Basophil pct 0.4 % [facility] Comment: Interpretive Data Percent cell count reference ranges are not reported, since discordance with absolute values may lead to misinterpretation of CBC data. Current Interpretive Data was last revised on 2017. Blood 11/12/2024 9:11 AM CDT 11/12/2024 9:45 AM CDT us Nemo Blanco MD LAB BLOOD ORDERABLES Final Resu lt Performing Organization Address [facility] de Phone Number [facility] [address] Department [place] [employer] [place] [address] * (ABNORMAL) CBC with auto differential (11/12/2024 9:11 AM CDT) [facility] WBC 7.45 3.80 - 9.90 K/cumm Hgb 7.4(L) 13.0 - 17.5 g/dL [facility] Hct 23.9(L) 38.9 - 50.3 % [facility] Plt 257 150 - 400 K/cumm [facility] MPV 11.8 9.1 - 12.3 fL [facility] RBC 2.67(L) 4.30 - 5.80 M/cumm [facility] MCV 89.5 81.3 - 96.4 fL [facility] MCH 27.7 27.1 - 33.3 pg [facility] MCHC 31.0(L) 32.3 - 35.7 g/dL [facility] RDW CV 17.1(H) 11.1 - 14.9 % [facility] RDW SD 54.5(H) 35.7 - 48.1 fL [facility] NRBC abs 0.00 0.00 - 0.01 K/cumm [facility] Blood 11/12/2024 9:11 AM CDT 11/12/2024 9:45 AM CDT Nemo Blanco MD LAB BLOOD ORDERABLES Final Resu lt Performing Organization Address [facility] Co de Phone Number [facility] [address] Department [place] [employer] [place] [address] * Magnesium (11/12/2024 9:11 AM CDT) [facility] Magnesium 1.6 1.4 - 2.5 mg/dL Blood 11/12/2024 9:11 AM CDT 11/12/2024 9:45 AM CDT us Nemo Blanco MD LAB BLOOD ORDERABLES Final Resu lt [facility] [address] Department [place] [address] * (ABNORMAL) Comprehensive metabolic panel (11/12/2024 9:11 AM CDT) Sodium 143 135 - 145 mmol/L Potassium, pl 4.6 3.3 - 4.9 mmol/L [facility] Chloride 111(H) 97 - 110 mmol/L [facility] CO2 18(L) 22 - 32 mmol/L [facility] Anion gap 14 2 - 15 mmol/L [facility] BUN 54(H) 6 - 25 mg/dL [facility] Creatinine 2.62(H) 0.80 - 1.30 mg/dL [facility] Glucose 81 70 - 199 mg/dL [facility] Comment: Interpretive Data Fasting glucose >/= [...] 9.0 8.5 - 10.3 mg/dL [facility] Bilirubin, total 3.8(H) 0.1 - 1.2 mg/dL [facility] Protein, pl 6.5 6.5 - 8.5 g/dL [facility] Albumin 2.5(L) 3.5 - 5.0 g/dL [facility] Alk phos 298(H) 40 - 130 Units/L [facility] ALT 26 7 - 55 Units/L [facility] AST 25 10 - 50 Units/L [facility] Blood 11/12/2024 9:11 AM CDT 11/12/2024 9:45 AM CDT Nemo Blanco MD LAB BLOOD ORDERABLES Final Resu lt [facility] [address] [place] [address] * Transfuse RBC (11/11/2024 9:14 PM CDT) Blood Ivon Menijvar NP BLOOD TRANSFUSION ORDERA BLES Final Result Performing Organization Address [facility]/ZIP Co de Phone Number [facility] [address] Department [place] [employer] [place] [address] * CT Abdomen Pelvis W Contrast (11/11/2024 [...] For the purposes of quality assurance supervisor body, this study was initially interpreted by teleradiology. [...] For the purposes of quality assurance supervisor body, this study was initially interpreted by teleradiology. There is no significant discrepancy. Electronically signed by: Keri Valladares M.D. Ivon Menjivar NP IMG CT PROCEDURES Final Result * Type and screen (11/11/2024 4:28 PM CDT) Vanessa, indirect Negative ABO Rh A Positive [facility] Blood 11/11/2024 4:28 PM CDT 11/11/2024 4:42 PM CDT Narrative [facility] - 11/11/2024 5:18 PM CDT Has the patient had Daratumumab or Isatuximab in the past 6 months?->Unknown Ivon Menjivar NP LAB BLOOD BANK TEST NIKHIL MEYERS Final Result [facility] [address] Department [employer] [place] [address] * Prepare RBC: 1 Units (11/11/2024 4:05 PM CDT) [facility] Product code [id number] Unit Number [id number] [facility] Product Blood Type APOS [facility] Dispense Status PRESUMED TRANSFUSED [facility] Blood 11/11/2024 4:05 PM CDT Narrative [facility] - 11/12/2024 10:20 AM CDT Are special requirements needed? (All products are leukoreduced and CMV- safe)- >No Date required:-[id number] LRRBC # of [id number] Reasons:-Hgb <7 g/dL} Ivon Menjivar NP BLOOD BANK PRODUCT ORDER OBED Final Result Performing Organization Address [facility]/ZIP Co de Phone Number [facility] [address] Department [place] [employer] [place] [address] * Sepsis Lactate w/ Reflex (11/11/2024 2:39 PM CDT) [facility] Sepsis Lactate 1.5 0.7 - 2.0 mmol/L Blood 11/11/2024 2:39 PM CDT 11/11/2024 2:44 PM CDT Thor Herr MD LAB BLOOD ORDERABLES Final R esult [facility] [address] Department [employer] [place], [place] [id number] * (ABNORMAL) eGFR (11/11/2024 2:39 PM CDT) [facility] eGFR 24(L) >=60 mL/min/1. 73 m2 Comment: [...] BLOOD ORDERABLES Final R esult [facility] [address] Department of [place] [address] * (ABNORMAL) Differential, auto (11/11/2024 2:39 PM CDT) Neutrophil abs 6.20 1.50 - 6.50 K/cumm Imm gran abs 0.26(H) 0.00 - 0.10 K/cumm [facility] Lymphocyte abs 0.55(L) 0.80 - 3.30 K/cumm [facility] Monocyte abs 0.79 0.20 - 0.80 K/cumm [facility] Eosinophil abs 0.20 0.00 - 0.50 K/cumm [facility] Basophil abs 0.03 0.00 - 0.10 K/cumm [facility] Neutrophil pct 77.3 % [facility] Comment: Interpretive Data Percent cell count reference ranges are not reported, since discordance with absolute values may lead to misinterpretation of CBC data. Current Interpretive Data was last revised on 2017. Imm gran pct 3.2 % [facility] Comment: Interpretive Data Percent cell count reference ranges are not reported, since discordance with absolute values may lead to misinterpretation of CBC data. Current Interpretive Data was last revised on 2017. Lymphocyte pct 6.8 % [facility] Comment: Interpretive Data Percent cell count reference ranges are not reported, since discordance with absolute values may lead to misinterpretation of CBC data. Current Interpretive Data was last revised on 2017. Monocyte pct 9.8 % [facility] Comment: Interpretive Data Percent cell count reference ranges are not reported, since discordance with absolute values may lead to misinterpretation of CBC data. Current Interpretive Data was last revised on 2017. Eosinophil pct 2.5 % [facility] Comment: Interpretive Data Percent cell count reference ranges are not reported, since discordance with absolute values may lead to misinterpretation of CBC data. Current Interpretive Data was last revised on 2017. Basophil pct 0.4 % [facility] Comment: Interpretive Data Percent cell count reference ranges are not reported, since discordance with absolute values may lead to misinterpretation of CBC data. Current Interpretive Data was last revised on 2017. Blood 11/11/2024 2:39 PM CDT 11/11/2024 2:53 PM CDT us Thor Herr MD LAB BLOOD ORDERABLES Final R esult [facility] [address] Department [place] [address] * (ABNORMAL) CBC with auto differential (11/11/2024 2:39 PM CDT) WBC 8.03 3.80 - 9.90 K/cumm Hgb 6.5(L) 13.0 - 17.5 g/dL [facility] Hct 20.8(L) 38.9 - 50.3 % [facility] Plt 289 150 - 400 K/cumm [facility] MPV 11.7 9.1 - 12.3 fL [facility] RBC 2.37(L) 4.30 - 5.80 M/cumm [facility] MCV 87.8 81.3 - 96.4 fL [facility] MCH 27.4 27.1 - 33.3 pg [facility] MCHC 31.3(L) 32.3 - 35.7 g/dL [facility] RDW CV 17.7(H) 11.1 - 14.9 % [facility] RDW SD 55.3(H) 35.7 - 48.1 fL [facility] NRBC abs 0.00 0.00 - 0.01 K/cumm [facility] Blood 11/11/2024 2:39 PM CDT 11/11/2024 2:53 PM CDT us Thor Herr MD LAB BLOOD ORDERABLES Final R esult [facility] [address] Department [place] [address] * (ABNORMAL) Comprehensive metabolic panel (11/11/2024 2:39 PM CDT) Sodium 141 135 - 145 mmol/L Potassium, pl 4.3 3.3 - 4.9 mmol/L [facility] Chloride 107 97 - 110 mmol/L [facility] CO2 17(L) 22 - 32 mmol/L [facility] Anion gap 17(H) 2 - 15 mmol/L [facility] BUN 56(H) 6 - 25 mg/dL [facility] Creatinine 2.70(H) 0.80 - 1.30 mg/dL [facility] Glucose 107 70 - 199 mg/dL [facility] Comment: Interpretive Data Fasting glucose >/= [...] 8.8 8.5 - 10.3 mg/dL [facility] Bilirubin, total 4.5(H) 0.1 - 1.2 mg/dL [facility] Protein, pl 6.9 6.5 - 8.5 g/dL [facility] Albumin 3.0(L) 3.5 - 5.0 g/dL [facility] Alk phos 309(H) 40 - 130 Units/L [facility] ALT 30 7 - 55 Units/L [facility] AST 25 10 - 50 Units/L [facility] Blood 11/11/2024 2:39 PM CDT 11/11/2024 2:53 PM CDT us Thor Herr MD LAB BLOOD ORDERABLES Final R esult [facility] [address] Department [place] [address] * (ABNORMAL) Hepatitis C (HCV) RNA PCR, quantitative (04/14/2018 9:10 AM CDT) HCV RNA IU/mL 54,107 IU/mL 04/16/2018 5:33 PM [email or web address] HISTORICAL RESULTS HCV RNA log IU/mL 4.73 log IU/mL 018 5:33 PM [facility] HISTORICAL RESULTS HCV quant by NAAT interp [...] and Cellular Tissue-Based Products (HCT/P). Performed by [employer], [address] [place] [id number] [email or web address], Aaron Esparza MD, Lab. Director 04/14/2018 9:10 AM CDT 04/14/2018 9:28 AM CDT Amari Frazier MD LAB MICROBIOLOGY - GENERAL NIKHIL MEYERS Final Result [facility] HISTORICAL RESULTS from Last 3 Months or Most Recently Relevant to Health Maintenance Insurance IDPA [facility] MEDICARE HMO [facility] MEDICARE HMO IDTX [facility] MEDICARE HMO Member Subscriber Plan / Payer (Ef fective 2019-Present) Name:Lee Cotto Sr. Relation to Subscriber:Self Name:Lee oCtto Sr. Payer ID:[id number] (NAIC) Type:MEDICARE RISK OTHER Address: [address] [facility] MEDICARE HMO IDPA DEPT OF LABOR [facility] WORKERS COMPENSATION GENERIC WORKERS COMPENSATION GENERIC Advance Directives For more information, please contact: [phone] Documents on File Type Date Recorded Patient Allergy Specialist Expl anation ADVANCE DIRECTIVE 11/17/2024 1:55 AM POWER OF COMBER SETTER-MEDICAL * Full Code (Latest Code Status on File) Date Activated Date Inactivated Comments 01/30/2025 1:12 PM 01/31/2025 4:46 AM * Full Code Date Activated Date Inactivated Comments 01/11/2025 12:22 [...] with the following attending physician: Dr. Jackman Care Teams Animal Feeder Relationship Specialty Start Date End Date Jose Rivera MD [address] [place] [phone] PCP - General 08/29/17 [place] [address] [place] [address] Consulting Physician Gastroenterology 02/08/23 Shayan Brown MD [address] [place] [phone] Referring Physician Hematology 01/13/24 No, Physician 11/15/24
--- OUTSIDE RECORDS SUMMARY | 2025-02-05 10:35 | XMS_ITS | Clinical Summary ---
Author Organization [facility] Address [address] [facility] [place] [address] Care Team Providers Care Wooden Tank Erector Name Role Phone Jose Rivera MD Primary [...] Encounters Date Type Department Care Team Description 02/04/2025 Orders Only [facility] Oncology and Hematology - [place] [address] [place] [address] Shayan Brown MD Small cell lung cancer (CMS/HCC) 01/22/2025 Orders Only [facility] Oncology and Hematology - [place] [address] [place] [address] Shayan Brown MD 01/21/2025 Orders Only [facility] Oncology and Hematology - [place] [address] [place] [address] Shayan Brown MD Small cell lung cancer (CMS/HCC) 01/18/2025 9:45 AM CDT Office Visit [facility] Oncology and Hematology - [place] [address] [place] [address] Shayan Brown MD Small cell carcinoma of lung, unspecified laterality, unspecified part of lung (CMS/HCC) (Primary Dx) 01/18/2025 Orders Only [facility] Oncology and Hematology - [place] [address] [place] [id number] Shayan Brown MD 01/16/2025 Orders Only [facility] Oncology and Hematology - [place] [address] Shayan Brown MD 01/08/2025 Orders Only [facility] Oncology and Hematology - [place] [address] [place] [address] Shayan Brown MD 01/07/2025 Orders Only [facility] Oncology and Hematology - [place] [address] [place] [address] Shayan Brown MD Small cell lung cancer (CMS/HCC) 12/24/2024 Orders Only [facility] Oncology and Hematology - [place] [address] [place] [address] Shayan Brown MD Small cell lung cancer (CMS/HCC) 12/12/2024 Orders Only [facility] Oncology and Hematology - [place] [address] [place] [address] Shayan Brown MD 12/10/2024 Orders Only [facility] Oncology and Hematology - [place] [address] [place] [address] Shayan Brown MD Small cell lung cancer (CMS/HCC) 11/26/2024 Orders Only [facility] Oncology and Hematology - [address] [place] [address] Shayan Brown MD Small cell lung cancer (CMS/HCC) 11/12/2024 Orders Only [facility] Oncology and Hematology - [address] [place] [address] Shayan Brown MD Small cell lung cancer (CMS/HCC) 11/09/2024 Abstract [facility] Oncology and Hematology [facility] [address] [place] [address] Shayan Brown MD 11/09/2024 Orders Only [facility] Oncology and Hematology [place] [address] [place] [address] Shayan Brown MD Small cell carcinoma of [...] Contact Info) Description 05/17/2025 12:30 PM MEDICINE TEACHER Office Visit [facility] Oncology and Hematology - [place] [address] [facility] [address] [place] [address] Shayan Brown MD [address] [facility] [address] [place] [address] Health Maintenance Due Date Last Done Comments DTAP/TDAP/TD VACCINES (1 - Tdap) 1969 PNEUMOCOCCAL VACCINE 50+ YEA RS (1 of 2 - PCV) 1969 FIT-DNA Q 3 years 12/05/1995 FIT/FOBT Q 1 year 12/05/1995 Flex Sig/CT Colonography Q 5 years 12/05/1995 RSV VACCINE (60+ or ) (1 - Risk 60-74 years 1-dose series) 2010 ZOSTER VACCINE (2 of 2) 04/24/2019 02/27/2019 Medicare Advantage (OR) Prev entative Visit/Annual Wellness Visit 06/13/2024 INFLUENZA VACCINE (#1) 2025 COLORECTAL SCREENING 05/12/2026 [...] METABOLIC PANEL (01/18/2025 10:19 AM CDT) Blood Result Manish Brown MD CHEMISTRY ORDERABLES Final Resu lt * CT CHEST WO CONTRAST (01/11/2025 10:28 AM CDT) Anatomical Region Laterality Modality Chest Computed Tomogra phy us Shayan Brown MD CT ORDERABLES Final Result * CBC WITH DIFFERENTIAL (01/07/2025 4:07 PM CDT) Only the most recent of2 resultswithin the time period is included. Blood Result Manish Brown MD HEMATOLOGY ORDERABLES Final Res ult * IRON LEVEL (12/10/2024 8:34 AM CDT) Blood Result Manish Brown MD CHEMISTRY ORDERABLES Final Resu lt from Last 3 Months Insurance [facility] MEDICAID [place] Care Teams Wooden Tank Erector Relationship Specialty Start Date End Date Jose Rivera MD [address] [place], [place] [phone] PCP - General Family Practice 12/29/23
--- OUTSIDE RECORDS SUMMARY | 2025-02-05 10:35 | XMS_ITS | Patient Health Record ---
Author Organization [facility] Address [address] [place] [address] Care Team Providers Care Veneer Drier Tailer Name Role Phone Sohan Paez Primary Care Provider Allergies Allergen (clinical drug ingredient) Drug/Non Drug Allergy documented on EMR Reaction Allergy Type Onset Date Status lisinopril Lisinopril Unknown Drug Allergy Activ e Penicillin G Benzathine hives Drug Allergy Active Eagle-Heel hives Drug Allergy Acti ve Reason For [...] a day; Duration: 30 day(s) Active Ipratropium [place] 0.02 % 2.5 ml Inhala tion every 8 hrs Active Trelegy Ellipta 100-62.5-25 MCG/INH 1 puff Inhalation Once a day Active Problems Problem Type SNOMED Code ICD Code Onset Dates Problem Status W/U Status Risk Notes Problem Hypertension (52027658) Hypertension (I10) Active confirmed Problem Vitamin D deficiency (85387289) Vitamin D deficiency (E55.9) Active confirmed Problem COPD - Chronic obstructive pulmonary disease (44809986) COPD (chronic obstructive pulmonary disease) (J44.9) Active confirmed Problem Erectile dysfunction (726674787) Erectile dysfunction (N52.9) Active confirmed Problem Dependence on supplemental oxygen (370748686659) Oxygen dependent (Z99.81) Active confirmed Plan Of [...] Date [employer] Gold Plus HMO [address] [address] [place] [address] [id number] Lee Cotto Self - patient is the insured 0 Medicare [address] [place] [address] [id number] Lee Cotto Self - patient is the insured Medical (General) History Medical History History ICD Code hbp shortness of breath copd broken bones Surgical History Surgery Date(Month/Year)
--- OUTSIDE RECORDS SUMMARY | 2025-02-05 10:35 | XMS_ITS | Clinical Summary ---
Author Organization [facility] Address [address] [place] [address] Phone Care Team Providers Care Manager Risk Management Name Role Phone Jose Rivera MD Primary Care Provider [phone] Allergies Active Allergy Reactions Criticality Noted Date [...] day Active ergocalciferol (VITAMIN D-2) 1.25 MG (09233 UT) capsule Take 50,000 Units by mouth [...] 2025 Insurance MEDICAID - [place] Care Teams Manager Risk Management Relationship Specialty Start Date End Date Jose Rivera MD [address] [place] [address] PCP - General Internal Medicine 01/05/21
--- OUTSIDE RECORDS SUMMARY | 2025-02-05 10:35 | XMS_ITS | Clinical Summary ---
Author Organization 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
--- OUTSIDE RECORDS SUMMARY | 2025-02-05 10:35 | XMS_ITS | Encounter Summary ---
Author Organization [facility] Healthcare Address [address] [place] [address] Care Team Providers Care Popped Corn Oven Attendant Name Role Phone Jose Rivera MD Primary Care Provider Justin Miller MD Unavailable Shayan Brown MD Unavailable [phone] No, Physician Unavailable Encounter Details Date Type Department Care Team (Late st Contact Info) Description 11/27/2024 Telephone [facility] - Interventional Radiology [address] [place] [address] Juan Sierra, RN Social History [...] materials from doctor or pharmacy Never 04/12/2023 [facility] Utilities Answer Date Recorded In the [...] attend chur ch or moravian services? Never 11/13/2024 Do you belong to any clubs o r organizations such as religion groups, unions, fraternal or athletic groups, or [...] a senior care (including now)? No 02/03/2023 Housing Stability Vital [...] you homeless or living in a senior care (including now)? No 11/13/2024 Personal Safety Answer Date Recorded Have you ever been in or are you currently in a harmful physical or emotional relationship or is someone making you feel afraid or unsafe? 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
--- OUTSIDE RECORDS SUMMARY | 2025-02-05 10:36 | XMS_ITS | Encounter Summary ---
Author Organization [facility] Healthcare Address [address] [place] [address] Care Team Providers Care Barber Or Beauty Shop Manager Name Role Phone Jose Rivera MD Primary Care Provider [phone] Justin Miller MD Unavailable Shayan Brown MD Unavailable [phone] No, Physician Unavailable Encounter Details Date Type Department Care Team (Late st Contact Info) Description 09/27/2024 Telephone [facility] - Interventional Radiology [address] [place] [address] Juan Sierra, RN Social History [...] materials from doctor or pharmacy Never 04/12/2023 [facility] Utilities Answer Date Recorded In the past [...] often do you attend chur ch or uatsdin services? Never 08/21/2024 Do you belong to any clubs o r organizations such as yarsani groups, unions, fraternal or athletic groups, or [...] living in a alf (including now)? No 08/21/2024 Personal Safety Answer Date Recorded Have you ever been in or are you currently in a harmful physical or emotional relationship or is someone making you feel afraid or unsafe? 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
--- OUTSIDE RECORDS SUMMARY | 2025-02-05 10:36 | XMS_ITS | Patient Health Record ---
Author Organization [facility] Address [address] [place] [address] Support Name Relationship Address Phone [facility] Emergency Contact [address] [place] [address] Lee Cotto Guarantor Unknown [phone] Allergies Allergen (clinical drug ingredient) Drug/Non Drug Allergy documented on EMR Reaction Allergy Type Onset Date Status lisinopril Lisinopril Unknown Drug Allergy Activ e Penicillin G Benzathine hives Drug Allergy Active Robert Lee-Heel hives Drug Allergy Acti ve Reason For [...] a day; Duration: 30 day(s) *Reorder from Med Access for eRx and Interaction Alerts* Active Ipratropium [place] 0.02 % 2.5 ml Inhalation every 8 hrs Active Albuterol Sulfate (2.5 MG/3ML) 0.083% 3 ml as needed Inhalation every 8 hrs Active Albuterol Sulfate (5 MG/ML) 0.5% as directed Inhalation Active Norvasc 10 MG 1 tablet Orally Once a day; Duration: 30 day(s) Active Trelegy Ellipta 100-62.5-25 MCG/INH 1 puff Inhalation Once a day *Pick strength-form from Med Access for eRX* Active Ventolin HFA 108 (90 Base) MCG/ACT 1 puff as needed Inhalation every 4 hrs Active Ergocalciferol 1.25 MG (52707 UT) 1 capsule Orally once a week; Duration: 90 days 08/20/2019 Active Levocetirizine Dihydrochloride 5 MG 1 tablet in the evening Orally Once a day; Duration: 30 day(s) Active Problems Problem Type SNOMED Code ICD Code Onset Dates Problem Status W/U Status Risk Notes Problem Vitamin D deficiency (88715963) Vitamin D deficiency (E55.9) Active confirmed Problem Erectile dysfunction (681808633) Erectile dysfunction (N52.9) Active confirmed Problem Hypertension (59418898) Hypertension (I10) Active confirmed Problem COPD - Chronic obstructive pulmonary disease (43026895) COPD (chronic obstructive pulmonary disease) (J44.9) Active confirmed Problem Dependence on supplemental oxygen (665914743795) Oxygen dependent (Z99.81) Active confirmed Plan Of [...] Date [employer] GOLD PLUS HMO [address] [address] [place] [address] [id number] Lee Cotto Self - patient is the insured 0 MEDICARE [address] [place] [phone] [id number] Lee Cotto Self - patient is the insured Medical (General) History Medical History History ICD Code hbp shortness of breath copd broken bones
--- OUTSIDE RECORDS SUMMARY | 2025-02-05 10:36 | XMS_ITS | Encounter Summary ---
Author Organization [facility] Healthcare Address [address] [place] [address] Care Team Providers Care Video Specialist Name Role Phone Jose Rivera MD Primary Care Provider Justin Miller MD Unavailable Shayan Brown MD Unavailable [phone] No, Physician Unavailable Encounter Details Date Type Department Care Team (Late st Contact Info) Description 01/16/2025 Telephone [facility] - Interventional Radiology [address] [place] [address] Juan Sierra, RN Social History [...] materials from doctor or pharmacy Never 04/12/2023 [facility] Utilities Answer Date Recorded In the past [...] often do you attend chur ch or gnosticist services? Never 11/13/2024 Do you belong to any clubs o r organizations such as tenriism groups, unions, fraternal or athletic groups, or [...] place to sleep or slept in a fdc (including now)? No 02/03/2023 Housing Stability Vital [...] were you homeless or living in a fdc (including now)? No 11/13/2024 Personal Safety Answer Date Recorded Have you ever been in or are you currently in a harmful physical or emotional relationship or is someone making you feel afraid or unsafe? Denies 01/17/2025 Sex and Gender Information Value Date Recorded Sex Assigned at Not on file Legal Sex Male 1:47 AM ASSISTED LIVING DIRECTOR Gender Identity Not on file Sexual Orientation [...] on filedocumented in this encounter Care Teams Video Specialist Relationship Specialty Start Date End Date Jose Rivera MD [address] [place] [phone] PCP - General 08/29/17 [place] [address] [place] [address] Consulting Physician Gastroenterology 02/08/23 Shayan Brown MD [address] [address] Referring Physician Hematology 01/13/24 No, Physician 11/15/24 documented as of this encounter
--- OUTSIDE RECORDS SUMMARY | 2025-02-05 10:36 | XMS_ITS | Encounter Summary ---
Author Organization [facility] Address [address] [place] [address] Care Team Providers Care Senior Group Manager Name Role Phone Jose Rivera MD Primary Care Provider Encounter Details Date Type Department Care Team (Late st Contact Info) Description 02/04/2025 Orders Only [facility] Oncology and Hematology - [place] [address] [place] [address] Shayan Brown MD [address] [facility] [address] [place] [address] Small cell lung cancer (CMS/HCC) [...] st Contact Info) Description 05/17/2025 12:30 PM INTEGRATED LOGISTICS PROGRAMS DIRECTOR Office Visit [facility] Oncology and Hematology - [place] [address] [place] [address] Shayan Brown MD [address] [facility] [address] [place] [address] documented as of this encounter Visit Diagnoses Diagnosis Small cell lung cancer (CMS/HCC) Malignant neoplasm of bronchus and lung, unspecified site documented in this encounter Care Teams Senior Group Manager Relationship Specialty Start Date End Date Jose Rivera MD [address] [place], [place] [phone] PCP - General Family Practice 12/29/23 documented as of this encounter
--- OUTSIDE RECORDS SUMMARY | 2025-02-05 10:36 | XMS_ITS | Encounter Summary ---
Author Organization [facility] Healthcare Address [address] [place] [address] Care Team Providers Care Inspection Manager Name Role Phone Jose Rivera MD Primary Care Provider Justin Miller MD Unavailable [phone] Shayan Brown MD Unavailable [phone] No, Physician Unavailable Encounter Details Date Type Department Care Team (Late st Contact Info) Description 06/04/2024 Telephone [facility] - Interventional Radiology [address] [place] [address] Pearl Goldstein, RN Social History [...] often do you attend chur ch or christianity services? Never 02/03/2023 Do you belong to any clubs o r organizations such as bahai groups, unions, fraternal or athletic groups, or [...] a group home (including now)? No 02/03/2023 Personal Safety Answer Date Recorded Have you ever been in or are you currently in a harmful physical or emotional relationship or is someone making you feel afraid or unsafe? Denies 06/04/2024 Sex and Gender Information Value Date Recorded Sex Assigned at Not on file Legal Sex Male 1:47 AM CONCIERGE RECEPTIONIST Gender Identity Not on file Sexual Orientation [...] COVID: Suspected 08/06/2024 08/06/2024 08/06/2024 7:34 AM CONCIERGE RECEPTIONIST COVID19 08/06/2024 08/06/2024 08/20/2024 2:36 PM CDT COVID: Recovered Comment:Added based on recent COVID infection. 08/20/2024 08/20/2024 11/18/2024 7:26 PM C DT documented as of this encounter Care Teams Inspection Manager Relationship Specialty Start Date End Date Jose Rivera MD [address] [place] [id number] PCP - General 08/29/17 [place] [address] [place] [address] Consulting Physician Gastroenterology 02/08/23 Shayan Brown MD [address] [phone] Referring Physician Hematology 01/13/24 No, Physician 11/15/24 documented as of this encounter
--- OUTSIDE RECORDS SUMMARY | 2025-02-05 10:36 | XMS_ITS | Encounter Summary ---
Author Organization [facility] Healthcare Address [address] [place] [address] Care Team Providers Care Materials Mgmt Tech Name Role Phone Jose Rivera MD Primary Care Provider Justin Miller MD Unavailable Shayan Brown MD Unavailable [phone] No, Physician Unavailable Encounter Details Date Type Department Care Team (Late st Contact Info) Description 04/19/2024 Documentation [facility] - Interventional Radiology [address] [place] [id number] Alda Harris RN Social History Tobacco Use [...] attend chur ch or baptist services? 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 08/20/2024 08/20/2024 11/18/2024 7:26 PM C DT documented as of this encounter Care Teams Materials Mgmt Tech Relationship Specialty Start Date End Date Jose Rivera MD [address] [place] [id number] PCP - General 08/29/17 [place] [address] [place] [address] Consulting Physician Gastroenterology 02/08/23 hSayan Brown MD [address] [phone] Referring Physician Hematology 01/13/24 No, Physician 11/15/24 documented as of this encounter
--- OUTSIDE RECORDS SUMMARY | 2025-02-05 10:36 | XMS_ITS | Encounter Summary ---
Author Organization [facility] Healthcare Address [address] [place] [address] Care Team Providers Care Senior Electrical Project Manager Name Role Phone Jose Rivera MD Primary Care Provider Justin Miller MD Unavailable Shayan Brown MD Unavailable [phone] No, Physician Unavailable Encounter Details Date Type Department Care Team (Late st Contact Info) Description 10/26/2024 Telephone [facility] - Interventional Radiology [address] [place] [address] Park Johns RN Social History [...] materials from doctor or pharmacy Never 04/12/2023 [facility] Utilities Answer Date Recorded In the past [...] often do you attend chur ch or orthodoxy services? Never 10/23/2024 Do you belong to any clubs o r organizations such as latter-day groups, unions, fraternal or athletic groups, or [...] in a longterm (including now)? No 02/03/2023 Housing Stability Vital [...] time in the past 12 m [facility], were you homeless or living in a longterm (including now)? No 10/23/2024 Personal Safety Answer Date Recorded Have you ever been in or are you currently in a harmful physical or emotional relationship or is someone making you feel afraid or unsafe? 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
--- OUTSIDE RECORDS SUMMARY | 2025-02-05 10:36 | XMS_ITS | Encounter Summary ---
Author Organization [facility] Healthcare Address [address] [place] [address] Care Team Providers Care Assistant Store Director Name Role Phone Jose Rivera MD Primary Care Provider Justin Miller MD Unavailable Shayan Brown MD Unavailable [phone] No, Physician Unavailable Encounter Details Date Type Department Care Team (Late st Contact Info) Description 03/27/2019 Telephone [facility] [address] [facility] [address] [place] [address] Sumanth Reyes MD [address] [facility] [phone] [place], [place] [id number] Social History Tobacco Use Types Packs/Day Years Used Date Smoking Tobacco: Former Smokeless Tobacco: Never Alcohol Use Standard Drinks/Week Comments Yes 0 (1 standard drink = 0.6 oz pur e alcohol) socially Sex and Gender Information Value Date Recorded Sex Assigned at Not on file Legal Sex Male 1:47 AM HOSE STRIPPER Gender Identity Not on file Sexual Orientation [...] COVID: Suspected 08/06/2024 08/06/2024 08/06/2024 7:34 AM HOSE STRIPPER COVID19 08/06/2024 08/06/2024 08/20/2024 2:36 PM CDT COVID: Recovered Comment:Added based on recent COVID infection. 08/20/2024 08/20/2024 11/18/2024 7:26 PM C DT documented as of this encounter Care Teams Assistant Store Director Relationship Specialty Start Date End Date Jose Rivera MD [address] [place] [id number] PCP - General 08/29/17 [place] [address] [place] [address] Consulting Physician Gastroenterology 02/08/23 Shayan Brown MD [address] [place] [phone] Referring Physician Hematology 01/13/24 No, Physician 11/15/24 documented as of this encounter
[2025-02-05 12:04] LABS: Alanine Aminotransferase 8 U/L (6-50); Albumin Level 3.5 g/dL (3.5-5.1); Alkaline Phosphatase 88 U/L (38-126); Anion Gap 8 mmol/L (4-12); Aspartate Amino Transferase 13 U/L (17-59); Bilirubin,Total 0.5 mg/dL (0.2-1.3); Blood Urea Nitrogen 25 mg/dL (9-20); Calcium 9.2 mg/dL (8.4-10.2); Carbon Dioxide 20 mmol/L (22-30); Chloride 112 mmol/L (98-107); Cholesterol 122 mg/dL (0-200); Estimated Glomerular Filt Rate 31; Glucose 86 mg/dL (65-110); HDL Direct 57 mg/dL; Magnesium 1.8 mg/dL (1.6-2.3); Potassium 4.3 mmol/L (3.4-5.0); Sodium 140 mmol/L (137-145); Total Protein 6.6 g/dL (6.3-8.2); Triglycerides 77 mg/dL (<150)
[2025-02-05 12:09] LABS: NT Pro B Type Natriuretic Pept 3280 pg/mL (19.9-100)
[2025-02-05 12:32] LABS: Thyroid Stimulating Hormone Reflex 0.652 uIU/mL (0.465-4.68)
[2025-02-05 13:06] LABS: Vitamin B12 613.0 pg/mL (239-931)
[2025-02-05 22:13] LABS: Hemoglobin A1C 4.2 % (<5.7)
== END 2025-02-05 10:04 | disposition home or self-care (01) ==
LOC: ANHLAB 10:05
PROVIDERS: PCP Family Medicine; Visit Provider Nurse Practitioner Family
DX: D64.9 Anemia, unspecified (principal); I12.9 Hypertensive chronic kidney disease with stage 1 through stage 4 chronic kidney disease, or unspecified chronic kidney disease; N18.30 Chronic kidney disease, stage 3 unspecified; E55.9 Vitamin D deficiency, unspecified; Z13.220 Encounter for screening for lipoid disorders; Z13.1 Encounter for screening for diabetes mellitus; Z13.29 Encounter for screening for other suspected endocrine disorder; Z12.9 Encounter for screening for malignant neoplasm, site unspecified
CPT/HCPCS: 36415; 80053; 80061; 82306; 82607; 82746; 83036; 83735; 83880; 84443